=== PATIENT | female | born 1990 ===

== ENCOUNTER 2016-10-16 08:03 | Inpatient (IN) | payer MEDICAID ==
[2016-10-16] MEDS ORDERED: Sodium Chloride 0.9% 1,000 ML IV ONE ×2 (08:19→10:55)
[2016-10-16 08:25] VITALS: BMI 27.3
--- NOTE | 2016-10-16 08:51 | C.PDOC ---
History Of Present Illness Patient BIBA from home for evaluation of abdominal pain, nausea/vomiting since yesterday, as well as intermittent seizures since yesterday. History is as per EMS as told to them by mother. Patient has h/o seizure disorder, DM, HTN, currently on Keppra as per med list. Accuchek 245 on ED arrival. Time Seen by Provider: 10/16/16 08:15 Chief Complaint (Nursing): Seizure History Per: EMS History/Exam Limitations: clinical condition Number Of Seizures: Multiple Length Of Seizures (Duration): Seconds Quality Of Seizure: Generalized Past Medical History Reviewed: Historical Data, Nursing Documentation, Vital Signs Vital Signs: Last Vital Signs Temp 98.6 F 10/20/16 16:00 Pulse 75 10/20/16 16:00 Resp 16 10/20/16 16:00 BP 159/107 H 10/20/16 16:00 Pulse Ox 98 10/20/16 16:00 - Medical History PMH: Diabetes, HTN, Seizures Family History: States: No Known Family Hx - Social History Hx Alcohol Use: No Hx Substance Use: No - Immunization History Hx Tetanus Toxoid Vaccination: No Hx Influenza Vaccination: Yes Hx Pneumococcal Vaccination: No Review Of Systems Review Of Systems: ROS cannot be obtained secondary to pt's inabilty to answer questions. Physical Exam - Physical Exam Appears: Non-toxic, Other (drowsy/postictal ) Skin: Warm (warm to the touch) Head: Normacephalic Eye(s): bilateral: Normal Inspection Oral Mucosa: Moist Cardiovascular: Rhythm Regular Respiratory: Normal Breath Sounds, No Rales, No Rhonchi, No Wheezing Gastrointestinal/Abdominal: Bowel Sounds, Soft, Tenderness (mild diffuse TTP), No Distention, No Guarding, No Rebound Extremity: Normal ROM, No Pedal Edema, No Calf Tenderness, No Deformity ED Course And Treatment - Laboratory Results Result Diagrams: 10/20/16 06:33 10/20/16 06:33 O2 Sat by Pulse Oximetry: 100 (RA) Pulse Ox Interpretation: Normal - CT Scan/US ct abd/pelvis Other Rad Studies (CT/US): Read By Radiologist, Radiology Report Reviewed CT/US Interpretation: Accession No. : [id number]. Patient Name / ID : BEST HERNANDEZ / [id number]. Exam Date : 10/16/2016 11:16:43 ( Approved ). Study Comment : Sex / Age : F / 26Y. Creator : Yareli Ortega MD. Dictator : Yareli Ortega MD. Hydrographic Surveyor : Maintenance Analyst : Yareli Ortega MD. Approver2 : Report Date : 10/16/2016 11:48:11. My Comment : . PROCEDURE: CT Abdomen and Pelvis without Oral or IV contrast. HISTORY: abd pain, n/v. COMPARISON: None. TECHNIQUE: Contiguous axial images of the abdomen and pelvis. No oral or IV contrast administered. Coronal and Sagittal reformats generated and reviewed. Radiation dose: Total exam DLP = 279.08 mGy- cm. This CT exam was performed using one or more of the following dose reduction techniques: Automated exposure control, adjustment of the mA and/or kV according to patient size, and/or use of iterative reconstruction technique. FINDINGS: There is limited evaluation of the solid organs without the administration of IV contrast. Examination limited by paucity of intra- abdominal and intrapelvic fat. LOWER THORAX: No visible consolidation, pleural effusion, or pneumothorax. Small hiatal hernia/distal esophageal wall thickening. LIVER: Unremarkable unenhanced appearance. GALLBLADDER AND BILE DUCTS: Unremarkable unenhanced appearance. PANCREAS: Unremarkable unenhanced appearance. SPLEEN: Unremarkable unenhanced appearance. ADRENALS: Unremarkable unenhanced appearance. KIDNEYS AND URETERS: No hydronephrosis or obstructing renal calculus. BLADDER: Mildly thick-walled urinary bladder. REPRODUCTIVE: Uterus is present. Question prominence of the ovaries. APPENDIX : The presumed appendix appears within normal limits of caliber. No secondary signs of acute appendicitis. BOWEL: The stomach is nondistended. Lack of oral contrast limits evaluation for bowel pathology. The bowel loops appear within normal limits of caliber without evidence of intestinal obstruction. Moderate constipation. PERITONEUM: No significant free fluid. No definite free air. LYMPH NODES: No bulky lymphadenopathy identified. VASCULATURE: No aortic aneurysm. BONES: Bilateral L5 spondylolysis. OTHER FINDINGS: None. IMPRESSION: Question prominent bilateral ovaries. This is not well visualized on CT. Recommend further evaluation with pelvic ultrasound. Moderate diffuse constipation. Mildly thick-walled urinary bladder. Recommend correlation with urinalysis in order to exclude possibility of cystitis. Bilateral L5 spondylolysis. ct head Other Rad Studies (CT/US): Read By Radiologist, Radiology Report Reviewed CT/US Interpretation: Accession No. : [id number]. Patient Name / ID : BEST HERNANDEZ / [id number]. Exam Date : 10/16/2016 11:26:48 ( Approved ). Study Comment : Sex / Age : F / 26Y. Creator : Yareli Ortega MD. Dictator : Yareli Ortega MD. Hydrographic Surveyor : Maintenance Analyst : Yareli Ortega MD. Approver2 : Report Date : 10/16/2016 11:45:14. My Comment : . PROCEDURE: CT HEAD WITHOUT CONTRAST. HISTORY: seizure. COMPARISON: None available. TECHNIQUE: Axial computed tomography images were obtained through the head/brain without intravenous contrast. Radiation dose: Total exam DLP = 874.56 mGy-cm. This CT exam was performed using one or more of the following dose reduction techniques: Automated exposure control, adjustment of the mA and/or kV according to patient size, and/or use of iterative reconstruction technique. FINDINGS: HEMORRHAGE: No intracranial hemorrhage. BRAIN: No mass effect or edema. No atrophy or chronic microvascular ischemic changes.Please note that MRI with diffusion imaging is more sensitive in the detection of acute ischemic event. VENTRICLES: No hydrocephalus. CALVARIUM: Unremarkable. PARANASAL SINUSES: Unremarkable as visualized. No significant inflammatory changes. MASTOID AIR CELLS: Unremarkable as visualized. No inflammatory changes. OTHER FINDINGS: None. IMPRESSION: No acute intracranial pathology identified. Progress Note: 2mg IM Ativan given due to tonic clonic seizure in ED (witnessed by me). Blood work, UA, CXR, EKG ordered and reviewed. CT scan abd/pelvis ordered. Patient given IV NS bolus, IV Keppra loading, IV hydralazine (has not taken PO Lisinopril due to nausea/vomiting/abd pain). Left sided 20 gauge EJ inserted by me, as well as 22 gauge peripheral line in right foot. Blood obtained by me from right radial artery. 12:10pm- Patient c/o abdominal pain and nausea - IV morphine + IV zofran ordered, as well as her usual PO amlodipine. However patient unable to tolerate PO - IV reglan and IV labetolol ordered. 1:05PM- Patient resting comfortably, in no pain. BP significantly improved, and heart rate 95-105bpms. Patient pending bed. Reevaluation Time: 08:50 Reassessment Condition: Improved (Patient awake & alert currently, admits to history of seizures, DM, gastroparesis, HTN - states current abd pain feels like prior gastroparesis.) - Physician Consult Information Physician Contacted: Belle Mckee Outcome Of Conversation: Discussed patient with Dr. Mckee, he agrees with admission for seizure disorder, diabetic gastroparesis, acute renal failure/ dehydration, UTI/cystitis. Disposition - Disposition Disposition: HOSPITALIZED Disposition Time: 12:11 Condition: STABLE - Clinical Impression Clinical Impression: ARF (acute renal failure), Seizure disorder, Diabetic gastroparesis, Hyperglycemia, UTI (urinary tract infection), Acute cystitis Decision To Admit - Pt Status Changed To: Hospital Disposition Of: Inpatient - Admit Certification Admit to Inpatient:: After my assessment, the patient will require hospitalization for at least two midnights. This is because of the severity of symptoms shown, intensity of services needed, and/or the medical risk in this patient being treated as an outpatient. - InPatient: Physician Admission Certification: I certify that this patient requires 2 or more midnights of care for the following reason:: see notes - . Bed Request Type: Telemetry Admitting Physician: Belle Mckee Patient Diagnosis: ARF (acute renal failure), Seizure disorder, Diabetic gastroparesis, Hyperglycemia, UTI (urinary tract infection), Acute cystitis
[2016-10-16 08:52] LABS: BASO % 0.2 % (0.0-2.0); EOS % 0.2 % (0.0-4.0); HEMOGLOBIN 10.5 g/dL (11.0-16.0); LYMPH # 0.6 K/uL (1.0-4.3); LYMPH % 4.1 % (20.0-40.0); MEAN CELL VOLUME 85.4 fL (81.0-99.0); MEAN CORPUSCULAR HEMOGLOBIN 28.2 pg (27.0-31.0); MEAN PLATELET VOLUME 9.2 fL (7.2-11.7); MONO # 0.2 K/uL (0.0-0.8); MONO % 1.4 % (0.0-10.0); NEUT % 94.1 % (50.0-75.0); PLATELET COUNT 350 K/uL (130-400); RBC 3.72 Mil/uL (3.80-5.20); RED CELL DISTRIBUTION WIDTH 14.7 % (11.5-14.5); WHITE BLOOD COUNT 13.8 K/uL (4.8-10.8)
[2016-10-16 09:02] LABS: ALB/GLOB RATIO 0.9 (1.0-2.1); CALCIUM 8.8 mg/dl (8.6-10.4)
[2016-10-16 09:11] LABS: HCG,QUALITATIVE URINE NEGATIVE (NEGATIVE)
[2016-10-16 09:16] LABS: ANISOCYTOSIS SLIGHT; BANDS 1 % (0-2); HYPOCHROMIC SLIGHT; LYMPHOCYTE 4 % (20-40); MONOCYTE 1 % (0-10); NEUTROPHIL 94 % (50-75); PLATELET ESTIMATE NORMAL (NORMAL); POIKILOCYTOSIS SLIGHT; TOTAL CELLS COUNTED 100
[2016-10-16 09:20] LABS: GRANULAR CAST 1 /lpf (0-1); SQUAMOUS EPITHIAL 1 /hpf (0-5); URINE BACTERIA OCC (<OCC); URINE BILIRUBIN NEGATIVE (NEGATIVE); URINE BLOOD 2+ (NEGATIVE); URINE CLARITY Hazy (Clear); URINE COLOR Yellow (YELLOW); URINE GLUCOSE (UA) 3+ mg/dL (Normal); URINE LEUKOCYTE ESTERASE NEG Leu/uL (Negative); URINE NITRATE NEGATIVE (NEGATIVE); URINE PROTEIN 3+ mg/dL (NEGATIVE); URINE UROBILINOGEN NORMAL mg/dL (0.2-1.0)
[2016-10-16] MEDS ORDERED: levETIRAcetam 500 MG in Sodium Chloride 0.9% 100 ML IVPB STA (09:21)
[2016-10-16] MEDS ORDERED: Sodium Chloride 0.9% 1,000 ML ONE ×3 (09:22→15:01)
[2016-10-16 09:26] LABS: ARTERIAL BLOOD GAS HCO3 23.7 mmol/L (21-28); ARTERIAL BLOOD GAS O2 SAT 97.9 % (95-98); ARTERIAL BLOOD GAS PCO2 34 mm/Hg (35-45); ARTERIAL BLOOD GAS PH 7.42 (7.35-7.45); ARTERIAL BLOOD GAS PO2 188 mm/Hg (80-100); ARTERIAL BLOOD GAS TCO2 23.1 mmol/L (22-28)
[2016-10-16 09:29] LABS: OPIATES, UR NEGATIVE (NEGATIVE); PHENCYCLIDINE, UR NEGATIVE (NEGATIVE)
[2016-10-16] MEDS ORDERED: Morphine 4 MG/ML VIAL ONE ×2 (09:30→12:09)
[2016-10-16 09:31] LABS: BARBITURATES, UR NEGATIVE (NEGATIVE)
[2016-10-16 09:32] LABS: BENZODIAZEPINES, UR NEGATIVE (NEGATIVE)
--- NOTE | 2016-10-16 10:48 | RAD ---
PROCEDURE: CHEST RADIOGRAPH, 1 VIEW HISTORY: FEVER COMPARISON: None available. FINDINGS: LUNGS: Clear. PLEURA: No pneumothorax or pleural fluid seen. CARDIOVASCULAR: Normal. OSSEOUS STRUCTURES: No significant abnormalities. VISUALIZED UPPER ABDOMEN: Normal. OTHER FINDINGS: None. IMPRESSION: No active disease.
--- NOTE | 2016-10-16 11:47 | CT ---
PROCEDURE: CT HEAD WITHOUT CONTRAST. HISTORY: seizure COMPARISON: None available. TECHNIQUE: Axial computed tomography images were obtained through the head/brain without intravenous contrast. Radiation dose: Total exam DLP = 874.56 mGy-cm. This CT exam was performed using one or more of the following dose reduction techniques: Automated exposure control, adjustment of the mA and/or kV according to patient size, and/or use of iterative reconstruction technique. FINDINGS: HEMORRHAGE: No intracranial hemorrhage. BRAIN: No mass effect or edema. No atrophy or chronic microvascular ischemic changes.Please note that MRI with diffusion imaging is more sensitive in the detection of acute ischemic event. VENTRICLES: No hydrocephalus. CALVARIUM: Unremarkable. PARANASAL SINUSES: Unremarkable as visualized. No significant inflammatory changes. MASTOID AIR CELLS: Unremarkable as visualized. No inflammatory changes. OTHER FINDINGS: None. IMPRESSION: No acute intracranial pathology identified.
--- NOTE | 2016-10-16 11:49 | CT ---
PROCEDURE: CT Abdomen and Pelvis without Oral or IV contrast. HISTORY: abd pain, n/v COMPARISON: None. TECHNIQUE: Contiguous axial images of the abdomen and pelvis. No oral or IV contrast administered. Coronal and Sagittal reformats generated and reviewed. Radiation dose: Total exam DLP = 279.08 mGy-cm. This CT exam was performed using one or more of the following dose reduction techniques: Automated exposure control, adjustment of the mA and/or kV according to patient size, and/or use of iterative reconstruction technique. FINDINGS: There is limited evaluation of the solid organs without the administration of IV contrast. Examination limited by paucity of intra-abdominal and intrapelvic fat. LOWER THORAX: No visible consolidation, pleural effusion, or pneumothorax. Small hiatal hernia/distal esophageal wall thickening. LIVER: Unremarkable unenhanced appearance. GALLBLADDER AND BILE DUCTS: Unremarkable unenhanced appearance. PANCREAS: Unremarkable unenhanced appearance. SPLEEN: Unremarkable unenhanced appearance. ADRENALS: Unremarkable unenhanced appearance. KIDNEYS AND URETERS: No hydronephrosis or obstructing renal calculus. BLADDER: Mildly thick-walled urinary bladder. REPRODUCTIVE: Uterus is present. Question prominence of the ovaries. APPENDIX: The presumed appendix appears within normal limits of caliber. No secondary signs of acute appendicitis. BOWEL: The stomach is nondistended. Lack of oral contrast limits evaluation for bowel pathology. The bowel loops appear within normal limits of caliber without evidence of intestinal obstruction. Moderate constipation. PERITONEUM: No significant free fluid. No definite free air. LYMPH NODES: No bulky lymphadenopathy identified. VASCULATURE: No aortic aneurysm. BONES: Bilateral L5 spondylolysis. OTHER FINDINGS: None. IMPRESSION: Question prominent bilateral ovaries. This is not well visualized on CT. Recommend further evaluation with pelvic ultrasound. Moderate diffuse constipation. Mildly thick-walled urinary bladder. Recommend correlation with urinalysis in order to exclude possibility of cystitis. Bilateral L5 spondylolysis.
[2016-10-16] MEDS ORDERED: Labetalol 25mg/5ml Syringe IVP STA (12:13)
[2016-10-16] MEDS ORDERED: Labetalol 25mg/5ml Syringe ONE (12:29)
[2016-10-16] MEDS ORDERED: cefTRIAXone IV 1 gm in Dextros 50 ML IVPB ONE (12:29)
--- NOTE | 2016-10-16 13:12 | CP.PCM.PN ---
Subjective - Date & Time of Evaluation Date of Evaluation: 10/16/16 Time of Evaluation: 01:12 - Subjective Subjective: CC: seizures + abdominal pain x 2 weeks HPI: This 26 year old female with PMHx Seizure D/O, Gastroparesis, Diabetes, HTN - presents to the ED c/o increased seizure activity and abdominal pain for the past 2 weeks. She admits to being compliant with her home medications, including Levetracem 750mg PO qd, and does not understand why the seizures keep recurring. She reports being in and out of [facility] over the past 2 weeks for these complaints, with her most recent visit to the [place] ED last night, where she was discharged in the evening with normal blood values. This morning, her symptoms resumed and patient was BIBA from home for evaluation of abdominal pain, nausea/vomiting, as well as intermittent seizures. In total, she reports one seizure at home, 2 were reported in the ambulance, and 3 were witnessed in our ED. Admits to fevers, blurry vision, abdominal pain, and n/v. Denies chills, chest pain, SOB, hematemesis, d/c, LE swelling, recent sick contacts, or any additional acute complaints. PMD: Dr. Jane Yan Neurology: None PMHx: Seizure D/O, Gastroparesis, Diabetes, HTN PSHx: denies Meds: see EMR Allergies: NKDA FamHx: Mom - HTN SocHx: Denies tobacco or ETOH. Smokes marijuana monthly, but has increased her use recently. Objective - Vital Signs/Intake and Output Vital Signs (last 24 hours): Temp Pulse Resp BP Pulse Ox 99.3 F 102 H 20 124/70 100 10/16/16 12:22 10/16/16 12:41 10/16/16 12:41 10/16/16 12:41 10/16/16 13:11 - Constitutional Appears: Non-toxic, No Acute Distress, Other (no postictal confussion appreciated) - Head Exam Head Exam: ATRAUMATIC, NORMAL INSPECTION - Eye Exam Eye Exam: EOMI, Normal appearance, PERRL - ENT Exam ENT Exam: Mucous Membranes Dry - Respiratory Exam Respiratory Exam: Clear to Ausculation Bilateral, NORMAL BREATHING PATTERN. absent: Rales, Wheezes - Cardiovascular Exam Cardiovascular Exam: Tachycardia, +S1, +S2 - GI/Abdominal Exam GI & Abdominal Exam: Soft, Tenderness (diffuse), Hypoactive Bowel Sounds. absent: Hernia - Extremities Exam Extremities Exam: Normal Capillary Refill, Normal Inspection. absent: Pedal Edema, Tenderness - Back Exam Back Exam: absent: CVA tenderness (L), CVA tenderness (R) - Neurological Exam Neurological Exam: Alert, Awake, CN II-XII Intact, Oriented x3 - Psychiatric Exam Psychiatric exam: Normal Affect, Normal Mood - Skin Skin Exam: Dry, Intact, Pallor, Warm Assessment and Plan - Assessment and Plan (Free Text) Assessment: Seizure disorder * total creat kinase 675 H * prolactin 239.7 H * Tox screen, +Cannabinoid * Keppra 1000mg PO BID per neurology * Ativan 1mg IVP Q6H PRN * Vit B12 1000mcg PO qd * CT Head negative * Consult Neurology, Dr. Andrea Triplett, help appreciated. Hyperosmolar hyperglycemic nonketotic syndrome * Patient admitted to ICU from ED * Glucose > 500 * 1+ urine ketones UTI/cystitis * Temp 100.9 * WBC 13.8 * UA +bact, +hyalin casts, +glucose, +1 ketones, +3 protein, +2blood * f/u UC, BC * Abd Pelvic CT - thick walled bladder, constipation, b/l L5 sponylolysis. see full report * Ceftriaxone 1Gm IVPB qd Hypertension * BP 195/115 --> 108/66. * Norvasc 10mg PO qd * Lisinopril 20mg PO qd Diabetes * Novolog ISS * Lantus 8u SC HS Diabetic gastroparesis * Abd Pelvic CT - thick walled bladder, constipation, b/l L5 sponylolysis. see full report * Zofran 4mg PO Q6 * Tylenol 650mg PO BID * Nausea / Vomiting -> NPO Acute renal failure/dehydration * BUN 30, Cr 2.2 - monitor * NS 0.9 100cc/hr Hx Anemia * Hgb 12.5 * Feosol 325mg PO BID Prophylaxis * pepcid 20mg PO qd * Heparin 5k u SC Q12
[2016-10-16] MEDS: Sodium Chloride 0.9% 1,000 ML IV SCH (15:02)
[2016-10-16 15:36] LABS: ALBUMIN 2.4 g/dL (3.5-5.0)
[2016-10-16 15:39] LABS: ALB/GLOB RATIO 0.8 (1.0-2.1)
[2016-10-16 15:40] LABS: CALCIUM 7.2 mg/dl (8.6-10.4)
[2016-10-16] MEDS ORDERED: (Novolin R) Insulin Human Regular 100 units/ml vial SC ONE (16:18)
[2016-10-16] MEDS: (Novolog) Insulin Aspart, Recombinant 100 u/ml 10 ml vial SC SCH ×2 (16:27→22:03)
[2016-10-16] MEDS ORDERED: (Novolin R) Insulin Human Regular 100 units/ml vial ONE (16:28)
[2016-10-16 16:50] LABS: PROLACTIN 239.7 ng/mL (3.0-18.9)
--- NOTE | 2016-10-16 18:46 | CP.PCM.CON ---
History of Present Illness - History of Present Illness History of Present Illness: The patient is a 26 year old female who is asked for evaluation of seizures. Patient apparently had three seizures today. She gets generealized seizure. Patient has been having nausea and vomitting since yesterdy. Patient has history od seizure for 5 years and has been on Keppra 750 mg bid. Denies any urinary incontinence or tongue biting. Her seizures are brief. Her blood sugar is found to be more than 500. Review of Systems - Review of Systems Systems not reviewed;Unavailable: Acuity of Condition, Other All systems: reviewed and no additional remarkable complaints except (sleepy) - EENT Eyes: As Per HPI, Decreased Night Vision Ears: As Per HPI Nose/Mouth/Throat: As Per HPI - Cardiovascular Cardiovascular: absent: As Per HPI, Acrocyanosis, Chest Pain, Chest Pain at Rest , Chest Pain with Activity, Claudication, Diaphoresis, Dyspnea, Dyspnea on Exertion, Edema, Irregular Heart Rhythm, Pain Radiating to Arm/Neck/Jaw, Leg Edema, Leg Ulcers, Lightheadedness, Orthopnea, Palpitations, Paroxysmal Nocturnal Dyspnea, Pedal Edema, Radiating Pain, Rapid Heart Rate, Slow Heart Rate, Syncope, Other - Respiratory Respiratory: absent: As Per HPI, Cough, Dyspnea, Hemoptysis, Dyspnea on Exertion , Wheezing, Snoring, Stridor, Pain on Inspiration, Chest Congestion, Excessive Mucous Production, Change in Mucous Color, Pain with Coughing, Other - Gastrointestinal Gastrointestinal: As Per HPI - Genitourinary Genitourinary: As Per HPI - Reproductive: Female Reproductive:Female: As Per HPI - Neurological Neurological: Other (seizure) - Endocrine Endocrine: absent: As Per HPI, Change in Body Appearance, Change in Libido, Cold Intolorance, Deepening of Voice, Excessive Sweating, Fatigue, Flushing, Heat Intolorance, Increase in Ring/Shoe/Hat Size, Palpitations, Polydipsia, Polyphagia, Polyuria, Other Past Patient History - Infectious Disease Hx of Infectious Diseases: None - Past Medical History & Family History Past Medical History?: Yes Past Family History: Reviewed and not pertinent Pertinent Family History: none - Past Social History Smoking Status: Never Smoked Cigar Use: No Alcohol: None - CARDIAC Hx Cardiac Disorders: No Hx Hypertension: Yes - NEUROLOGICAL Hx Seizures: Yes - ENDOCRINE/METABOLIC Hx Endocrine Disorders: Yes (diabetes) Hx Diabetes Mellitus Type 1: Yes Hx Diabetes Mellitus Type 2: Yes - PSYCHIATRIC Hx Substance Use: No Meds Allergies/Adverse Reactions: Allergies Allergy/AdvReac Type Severity Reaction Status Date / Time No Known Allergies Allergy Verified 10/16/16 08:24 - Medications Medications: Current Medications Acetaminophen (Tylenol 325mg Tab) 650 mg PO BID PRN PRN Reason: Fever >100.4 F Amlodipine Besylate (Norvasc) 10 mg PO DAILY [facility] Cyanocobalamin (Vitamin B12 1000 Mcg Tab) 1,000 mcg PO DAILY [facility] Famotidine (Pepcid) 20 mg PO DAILY [facility] Last Admin: 10/16/16 18:07 Dose: Not Given Ferrous Sulfate (Feosol) 325 mg PO BID [facility] Last Admin: 10/16/16 18:08 Dose: Not Given Heparin Sodium (Porcine) (Heparin) 5,000 units SC Q12 [facility] Sodium Chloride (Sodium Chloride 0.9%) 1,000 mls @ 100 mls/hr IV .Q10H [facility] Last Admin: 10/16/16 15:02 Dose: 100 mls/hr Ceftriaxone Sodium 1 gm/ (Sodium Chloride) 100 mls @ 100 mls/hr IVPB DAILY [facility] Insulin Aspart (Novolog) 0 unit SC ACHS [facility] PRN Reason: Protocol Last Admin: 10/16/16 16:27 Dose: Not Given Insulin Glargine (Lantus) 8 unit SC HS [facility] Levetiracetam (Keppra) 1,000 mg PO BID [facility] Last Admin: 10/16/16 18:08 Dose: Not Given Lisinopril (Zestril) 20 mg PO DAILY [facility] Lorazepam (Ativan) 1 mg IVP Q6H PRN PRN Reason: Anxiety Ondansetron HCl (Zofran Odt) 4 mg PO Q6H PRN PRN Reason: Nausea/Vomiting Physical Exam - Constitutional Appears: Well - Head Exam Head Exam: ATRAUMATIC, NORMAL INSPECTION, NORMOCEPHALIC - Eye Exam Eye Exam: EOMI, Normal appearance - ENT Exam ENT Exam: Mucous Membranes Moist, Normal Exam - Neck Exam Neck exam: Positive for: Normal Inspection - Cardiovascular Exam Cardiovascular Exam: REGULAR RHYTHM - GI/Abdominal Exam GI & Abdominal Exam: Normal Bowel Sounds, Soft - Neurological Exam Neurological exam: Alert, CN II-XII Intact, Oriented x3, Reflexes Normal - Skin Skin Exam: Dry, Intact, Normal Color, Warm Results - Vital Signs Recent Vital Signs: Last Vital Signs Temp 98.1 F 10/16/16 16:33 Pulse 116 H 10/16/16 16:33 Resp 20 10/16/16 16:33 BP 170/102 H 10/16/16 16:33 Pulse Ox 100 10/16/16 16:33 - Labs Result Diagrams: 10/16/16 08:45 10/16/16 15:17 Labs: Laboratory Results - last 24 hr 10/16/16 10/16/16 10/16/16 14:26 15:17 18:01 Sodium 134 Potassium 4.1 Chloride 101 Carbon Dioxide 16 L Anion Gap 21 H BUN 30 H Creatinine 2.0 H Est GFR ( Amer) 36 Est GFR (Non-Af Amer) 30 POC Glucose (mg/dL) > 500 H* > 500 H* Random Glucose 637 H* D Calcium 7.2 L Total Bilirubin 0.4 AST 31 ALT 27 Alkaline Phosphatase 103 Total Protein 5.4 L Albumin 2.4 L Globulin 3.0 Albumin/Globulin Ratio 0.8 L Prolactin 239.7 H Assessment & Plan - Assessment and Plan (Free Text) Assessment: Seizure disorder with breakthrough seizure likely secondary to hyperglycemia. Rec: Increase Keppra to 1000 mg bid. May give IVC. Control Blood sugar Seizure precaution.s EEG Supportive care.
[2016-10-16] MEDS: (Lantus) Insulin Glargine, Recombinant SC SCH (21:44)
--- NOTE | 2016-10-16 21:47 | CP.CCUPN ---
CCU Subjective - Physician Review Events Since Last Encounter (Free Text): 10/17/16 04:26 The Patient was seen and examined at the bedside, Medical records reviewed, all clinical/lab/hemodynamic/radiographic data were reviewed and management issues were discussed and formulated, 26 Y/O F with PMHx HTN, DM and Seizures who was brought to ER for evaluation of abdominal pain, nausea/vomiting and intermittent generalized seizure since yesterday, Had witnessed seizure activity in the way to hospital as well as in the ER, Labs significant for BG>500 Patient has history of seizure for 5 years and has been on Keppra 750 mg bid. Patient alert, awake, Denies any urinary incontinence or tongue biting, No fever /chills CT Head negative for bleed/Stroke or mass CCU Objective - Vital Signs / Intake & Output Vital Signs (Last 4 hours): Vital Signs Temp Pulse Resp BP Pulse Ox 10/16/16 20:29 98.6 F 97 H 20 99/60 L 99 10/16/16 20:22 100 10/16/16 19:29 98 F 100 H 19 104/59 L 100 10/16/16 18:40 108 H 16 144/94 H 99 - Physical Exam Head: Positive for: Atraumatic, Normocephalic. Negative for: Tenderness, Contusion, Swelling Pupils: Positive for: PERRL. Negative for: Sluggish, Non-Reactive Extroacular Muscles: Positive for: EOMI. Negative for: Gaze Palsy, Entrapment Conjunctiva: Positive for: Normal. Negative for: Injected, Icteric Mouth: Positive for: Moist Mucous Membranes Pharnyx: Positive for: Normal. Negative for: ERYTHEMA, EXUDATE Nose (Internal): Positive for: Normal Inspection Neck: Positive for: Normal Range of Motion, Trachea Midline. Negative for: Meningeal Signs, MIDLINE TENDERNESS, Paraspinal Tenderness, JVD, Lymphadenopathy , Bruit, Other Respiratory/Chest: Positive for: Clear to Auscultation, Good Air Exchange. Negative for: Respiratory Distress, Accessory Muscle Use, Wheezes, Decreased Breath Sounds, Rales, Retracting, Rhonchi Cardiovascular: Positive for: Regular Rate and Rhythm, Normal S1, S2, Peripheal Pulses Present. Negative for: Murmurs, Irregular Rhythm, Tachycardic, Bradycardic Abdomen: Positive for: Normal Bowel Sounds. Negative for: Tenderness, Distention, Peritoneal Signs Upper Extremity: Positive for: Normal Inspection, NORMAL PULSES, Capillary Refill < 2s. Negative for: Cyanosis, Edema Lower Extremity: Positive for: Normal Inspection, NORMAL PULSES, Capillary Refill < 2 s. Negative for: Edema, CALF TENDERNESS Neurological: Positive for: GCS=15, CN II-XII Intact, Speech Normal, Motor Func Grossly Intact, Normal Sensory Function Psychiatric: Positive for: Alert, Oriented x 3, Normal Insight - Medications Active Medications: Active Medications Generic Name Dose Route Start Last Admin Trade Name Freq PRN Reason Stop Dose Admin Acetaminophen 650 mg 10/16/16 14:08 Tylenol 325mg Tab PO BID PRN Fever >100.4 F Amlodipine Besylate 10 mg 10/17/16 10:00 Norvasc PO DAILY [facility] Cyanocobalamin 1,000 mcg 10/17/16 10:00 Vitamin B12 1000 Mcg Tab PO DAILY [facility] Famotidine 20 mg 10/16/16 14:30 10/16/16 18:07 Pepcid PO Not Given DAILY [facility] Ferrous Sulfate 325 mg 10/16/16 18:00 10/16/16 18:08 Feosol PO Not Given BID [facility] Heparin Sodium (Porcine) 5,000 units 10/16/16 22:00 Heparin SC Q12 [facility] Sodium Chloride 1,000 mls @ 100 mls/hr 10/16/16 14:30 10/16/16 15:02 Sodium Chloride 0.9% IV 100 mls/hr .Q10H [facility] Administration Ceftriaxone Sodium 1 gm/ 100 mls @ 100 mls/hr 10/17/16 10:00 Sodium Chloride IVPB DAILY [facility] Insulin Aspart 0 unit 10/16/16 16:30 10/16/16 16:27 Novolog SC Not Given ACHS [facility] Protocol Insulin Glargine 8 unit 10/16/16 22:00 Lantus SC HS [facility] Levetiracetam 1,000 mg 10/16/16 18:00 10/16/16 18:08 Keppra PO Not Given BID [facility] Lisinopril 20 mg 10/17/16 10:00 Zestril PO DAILY [facility] Lorazepam 1 mg 10/16/16 14:21 Ativan IVP Q6H PRN Anxiety Ondansetron HCl 4 mg 10/16/16 14:08 Zofran Odt PO Q6H PRN Nausea/Vomiting - Patient Studies Lab Studies: Lab Studies 10/16/16 10/16/16 10/16/16 Range/Units 20:32 19:20 18:01 Sodium (132-148) mmol/L Potassium (3.6-5.2) mmol/L Chloride (98-107) mmol/L Carbon Dioxide (22-30) mmol/L Anion Gap (10-20) BUN (7-17) mg/dL Creatinine (0.7-1.2) MG/DL Est GFR ( Amer) Est GFR (Non-Af Amer) POC Glucose (mg/dL) 374 H 493 H* > 500 H* (65-110) mg/dL Random Glucose (65-105) mg/dL Calcium (8.6-10.4) mg/dl Total Bilirubin (0.2-1.3) mg/dL AST (14-36) U/L ALT (9-52) U/L Alkaline Phosphatase (38-126) U/L Total Protein (6.3-8.3) g/dL Albumin (3.5-5.0) g/dL Globulin (2.2-3.9) gm/dL Albumin/Globulin Ratio (1.0-2.1) Prolactin (3.0-18.9) ng/mL 10/16/16 10/16/16 Range/Units 15:17 14:26 Sodium 134 (132-148) mmol/L Potassium 4.1 (3.6-5.2) mmol/L Chloride 101 (98-107) mmol/L Carbon Dioxide 16 L (22-30) mmol/L Anion Gap 21 H (10-20) BUN 30 H (7-17) mg/dL Creatinine 2.0 H (0.7-1.2) MG/DL Est GFR ( Amer) 36 Est GFR (Non-Af Amer) 30 POC Glucose (mg/dL) > 500 H* (65-110) mg/dL Random Glucose 637 H* D (65-105) mg/dL Calcium 7.2 L (8.6-10.4) mg/dl Total Bilirubin 0.4 (0.2-1.3) mg/dL AST 31 (14-36) U/L ALT 27 (9-52) U/L Alkaline Phosphatase 103 (38-126) U/L Total Protein 5.4 L (6.3-8.3) g/dL Albumin 2.4 L (3.5-5.0) g/dL Globulin 3.0 (2.2-3.9) gm/dL Albumin/Globulin Ratio 0.8 L (1.0-2.1) Prolactin 239.7 H (3.0-18.9) ng/mL Laboratory Results - last 24 hr 10/16/16 10/16/16 10/16/16 14:26 15:17 18:01 Sodium 134 Potassium 4.1 Chloride 101 Carbon Dioxide 16 L Anion Gap 21 H BUN 30 H Creatinine 2.0 H Est GFR ( Amer) 36 Est GFR (Non-Af Amer) 30 POC Glucose (mg/dL) > 500 H* > 500 H* Random Glucose 637 H* D Calcium 7.2 L Total Bilirubin 0.4 AST 31 ALT 27 Alkaline Phosphatase 103 Total Protein 5.4 L Albumin 2.4 L Globulin 3.0 Albumin/Globulin Ratio 0.8 L Prolactin 239.7 H 10/16/16 10/16/16 19:20 20:32 Sodium Potassium Chloride Carbon Dioxide Anion Gap BUN Creatinine Est GFR ( Amer) Est GFR (Non-Af Amer) POC Glucose (mg/dL) 493 H* 374 H Random Glucose Calcium Total Bilirubin AST ALT Alkaline Phosphatase Total Protein Albumin Globulin Albumin/Globulin Ratio Prolactin Fingerstick Blood Sugar Results: 402 Review of Systems - Neurological Neurological: Weakness. absent: Abnormal Movements, Abnormal Speech, Loss of Vision, Syncope Critical Care Progress Note - Nutrition Nutrition: Nutrition Category Date Time Status Heart Healthy Diet [DIET] Diets 10/16/16 Dinner Active Assessment/Plan (1) Seizure Current Visit: Yes Status: Acute Comment: Incresae Keppra to 1000mg PO BID as per neurology PRN IV Ativan Check prolactin level IV Hydrations (2) Hyperosmolar (nonketotic) coma Current Visit: Yes Status: Acute Comment: IV Hydraions Resume home medications Consider insulin drip (3) UTI (urinary tract infection) Current Visit: Yes Status: Acute Comment: Ceftriaxone 1Gm IVPB daily (4) HTN (hypertension) Current Visit: No Status: Acute
--- NOTE | 2016-10-16 22:35 | CARD ---
APPROVED REPORT EKG Measurement Heart [id number] <Conclusion> Sinus tachycardia Otherwise normal ECG
[2016-10-17] MEDS: Sodium Chloride 0.9% 1,000 ML IV SCH ×3 (00:11→20:09)
[2016-10-17 06:42] LABS: ALBUMIN 2.2 g/dL (3.5-5.0)
[2016-10-17 06:44] LABS: BASO % 0.2 % (0.0-2.0); EOS % 0.1 % (0.0-4.0); HEMOGLOBIN 8.2 g/dL (11.0-16.0); LYMPH # 2.9 K/uL (1.0-4.3); LYMPH % 18.7 % (20.0-40.0); MEAN CELL VOLUME 86.5 fL (81.0-99.0); MEAN CORPUSCULAR HEMOGLOBIN 27.9 pg (27.0-31.0); MEAN CORPUSCULAR HGB CONC 32.2 g/dL (33.0-37.0); MEAN PLATELET VOLUME 9.7 fL (7.2-11.7); MONO # 0.8 K/uL (0.0-0.8); NEUT # 11.9 K/uL (1.8-7.0); RBC 2.96 Mil/uL (3.80-5.20); RED CELL DISTRIBUTION WIDTH 14.6 % (11.5-14.5); WHITE BLOOD COUNT 15.6 K/uL (4.8-10.8)
[2016-10-17 06:45] LABS: ALB/GLOB RATIO 0.8 (1.0-2.1)
[2016-10-17 06:46] LABS: CALCIUM 7.5 mg/dl (8.6-10.4); MAGNESIUM 2.1 mg/dL (1.6-2.3)
[2016-10-17] MEDS: (Novolog) Insulin Aspart, Recombinant 100 u/ml 10 ml vial SC SCH ×3 (08:03→17:30)
[2016-10-17] MEDS ORDERED: Sodium Chloride 0.9% 1,000 ML IV ONE (09:15)
--- NOTE | 2016-10-17 10:39 | PCM.PSYCH ---
Initial Psychiatric Evaluation - Initial Psychiatric Evaluation Type of Admission: Voluntary Legal Status: Capacity History of Present Illness and Precipitating Events: came to see the patient, but patient refused to answer, saying that she is feeling extremely nauseous and she was throwing up all day yesterday. Current Medications: Active Medications Generic Name Dose Route Start Last Admin Trade Name Freq PRN Reason Stop Dose Admin Acetaminophen 650 mg 10/16/16 14:08 Tylenol 325mg Tab PO BID PRN Fever >100.4 F Amlodipine Besylate 10 mg 10/17/16 10:00 Norvasc PO DAILY [facility] Cyanocobalamin 1,000 mcg 10/17/16 10:00 Vitamin B12 1000 Mcg Tab PO DAILY [facility] Ferrous Sulfate 325 mg 10/16/16 18:00 10/16/16 18:08 Feosol PO Not Given BID [facility] Heparin Sodium (Porcine) 5,000 units 10/16/16 22:00 10/16/16 21:45 Heparin SC 5,000 units Q12 [facility] Administration Sodium Chloride 1,000 mls @ 100 mls/hr 10/16/16 14:30 10/17/16 00:11 Sodium Chloride 0.9% IV 100 mls/hr .Q10H [facility] Administration Levetiracetam 500 mg/ Sodium 105 mls @ 420 mls/hr 10/17/16 10:00 Chloride IVPB Q12H [facility] Insulin Aspart 0 unit 10/16/16 16:30 10/17/16 08:03 Novolog SC 3 unit ACHS [facility] Administration Protocol Insulin Glargine 8 unit 10/16/16 22:00 10/16/16 21:44 Lantus SC 8 u HS [facility] Administration Lisinopril 20 mg 10/17/16 10:00 Zestril PO DAILY [facility] Lorazepam 1 mg 10/16/16 14:21 10/17/16 06:00 Ativan IVP 1 mg Q6H PRN Administration Anxiety Ondansetron HCl 4 mg 10/17/16 08:34 Zofran Inj IVP Q6H PRN Nausea/Vomiting Pantoprazole Sodium 40 mg 10/17/16 10:15 Protonix Inj IVP Q12H [facility] Thiamine HCl 100 mg 10/17/16 09:30 Vitamin B1 Inj IV Q8H [facility] Past Psychiatric History - Past Psychiatric History Pertinent Medical Hx (Current Medical&Sleep Prob, Allergies): Allergies Allergy/AdvReac Type Severity Reaction Status Date / Time No Known Allergies Allergy Verified 10/16/16 08:24 Acetaminophen 2 tab PO BID PRN 10/16/16 Cyanocobalamin [Vitamin B12 1000 mcg Tab] 1,000 mcg PO DAILY 10/16/16 Ferrous Sulfate [Iron] 325 mg PO BID 10/16/16 Insulin Glargine, Recombina [Lantus] 8 unit SQ HS 10/16/16 Insulin Lispro [Humalog Kwikpen U-100] 5 unit SQ TID 10/16/16 Levetiracetam 3 tab PO BID 10/16/16 Lisinopril [Zestril] 20 mg PO DAILY 10/16/16 Ondansetron ODT [Zofran ODT] 4 mg PO Q6H PRN 10/16/16 amLODIPine [Norvasc] 10 mg PO DAILY 10/16/16
[2016-10-17] MEDS: Thiamine 100 mg/ml Inj IV SCH ×2 (11:01→16:55)
[2016-10-17] MEDS ORDERED: POLYETHYLENE GLYCOL 3350 17 GM/Dose PACKET PO ONE (11:02)
[2016-10-17] MEDS: levETIRAcetam 500 MG in Sodium Chloride 0.9% 100 ML IVPB SCH ×2 (11:03→21:55)
--- NOTE | 2016-10-17 14:00 | CP.CCUPN ---
<Betzaida Moreira - Last Filed: 10/17/16 14:24> CCU Subjective - Physician Review Subjective (Free Text): 10/17/16 14:24 Patient seen and examined at bedside. Patient has been having multiple episodes of nonbloody nonbilious emesis and witnessed seizures lasting 15-30seconds with no postictal state. She has intermittent abdominal pain and needed morphine 2mg twice since 7am this morning. She was at first making herself vomit by putting a finger in her mouth but after being strongly advised by myself and nursing she stopped doing so. Patient states that she does the same at home but denies it is for weight loss. Patient has been receiving 1mg ativan q4h and is currently slightly sedated. Patient unable to give complete ROS due to distress. CCU Objective - Vital Signs / Intake & Output Vital Signs (Last 4 hours): Vital Signs Pulse Resp BP Pulse Ox 10/17/16 12:00 115 H 18 98 10/17/16 11:14 123 H 18 169/108 H 99 10/17/16 11:00 129 H 24 99 10/17/16 10:13 120 H 17 160/102 H 98 Intake and Output (Last 8hrs): Intake & Output 10/16/16 10/17/16 10/17/16 22:59 06:59 14:59 Intake Total 940 1500 Output Total 500 0 Balance 440 1500 Intake: Intake, IV Amount 600 1500 Left External Jugular 600 1500 Oral 340 Output: Urine 500 0 Urine, Voided 500 0 Stool 0 Other: # Bowel Movements 0 - Physical Exam Physical Exam Limitations: Positive for: Other (in acute distress) Head: Positive for: Atraumatic, Normocephalic. Negative for: Tenderness, Contusion, Swelling Pupils: Positive for: PERRL. Negative for: Sluggish, Non-Reactive Extroacular Muscles: Positive for: EOMI. Negative for: Gaze Palsy, Entrapment Conjunctiva: Positive for: Normal. Negative for: Injected, Icteric Mouth: Positive for: Moist Mucous Membranes Pharnyx: Positive for: Normal. Negative for: ERYTHEMA, EXUDATE Nose (Internal): Positive for: Normal Inspection Neck: Positive for: Normal Range of Motion, Trachea Midline. Negative for: Meningeal Signs, MIDLINE TENDERNESS, Paraspinal Tenderness, JVD, Lymphadenopathy , Bruit, Other Respiratory/Chest: Positive for: Clear to Auscultation, Good Air Exchange. Negative for: Respiratory Distress, Accessory Muscle Use, Wheezes, Decreased Breath Sounds, Rales, Retracting, Rhonchi Cardiovascular: Positive for: Normal S1, S2, Peripheal Pulses Present, Tachycardic. Negative for: Regular Rate and Rhythm, Murmurs, Irregular Rhythm, Bradycardic Abdomen: Positive for: Tenderness (diffuse to slight palpation), Normal Bowel Sounds. Negative for: Distention, Peritoneal Signs Upper Extremity: Positive for: Normal Inspection, NORMAL PULSES, Capillary Refill < 2s. Negative for: Cyanosis, Edema Lower Extremity: Positive for: Normal Inspection, NORMAL PULSES, Capillary Refill < 2 s. Negative for: Edema, CALF TENDERNESS Neurological: Positive for: GCS=15, CN II-XII Intact, Speech Normal, Motor Func Grossly Intact, Normal Sensory Function Skin: Positive for: Warm, Dry, Normal Color Psychiatric: Positive for: Alert, Oriented x 3, Anxious, Agitated - Medications Active Medications: Active Medications Generic Name Dose Route Start Last Admin Trade Name Freq PRN Reason Stop Dose Admin Acetaminophen 650 mg 10/16/16 14:08 Tylenol 325mg Tab PO BID PRN Fever >100.4 F Amlodipine Besylate 10 mg 10/17/16 10:00 10/17/16 11:20 Norvasc PO Not Given DAILY KELVIN Cyanocobalamin 1,000 mcg 10/17/16 10:00 10/17/16 11:20 Vitamin B12 1000 Mcg Tab PO Not Given DAILY KELVIN Diphenhydramine HCl 25 mg 10/17/16 10:52 Benadryl PO Q6 PRN Agitation Ferrous Sulfate 325 mg 10/16/16 18:00 10/17/16 12:42 Feosol PO Not Given BID KELVIN Heparin Sodium (Porcine) 5,000 units 10/16/16 22:00 10/17/16 11:09 Heparin SC 5,000 units Q12 KELVIN Administration Sodium Chloride 1,000 mls @ 100 mls/hr 10/16/16 14:30 10/17/16 00:11 Sodium Chloride 0.9% IV 100 mls/hr .Q10H KELVIN Administration Levetiracetam 500 mg/ Sodium 105 mls @ 420 mls/hr 10/17/16 10:00 10/17/16 11: 03 Chloride IVPB 420 mls/hr Q12H KELVIN Administration Insulin Aspart 0 unit 10/16/16 16:30 10/17/16 12:47 Novolog SC 3 unit ACHS KELVIN Administration Protocol Insulin Glargine 8 unit 10/16/16 22:00 10/16/16 21:44 Lantus SC 8 u HS KELVIN Administration Lisinopril 20 mg 10/17/16 10:00 10/17/16 11:20 Zestril PO Not Given DAILY KELVIN Lorazepam 1 mg 10/16/16 14:21 10/17/16 12:45 Ativan IVP 1 mg Q6H PRN Administration Anxiety Ondansetron HCl 4 mg 10/17/16 08:34 10/17/16 08:15 Zofran Inj IVP 4 mg Q6H PRN Administration Nausea/Vomiting Pantoprazole Sodium 40 mg 10/17/16 10:15 10/17/16 11:02 Protonix Inj IVP 40 mg Q12H KELVIN Administration Thiamine HCl 100 mg 10/17/16 09:30 10/17/16 11:01 Vitamin B1 Inj IV 100 mg Q8H KELVIN Administration - Patient Studies Lab Studies: Lab Studies 10/17/16 10/17/16 10/17/16 Range/Units 11:54 07:21 06:22 WBC (4.8-10.8) K/uL RBC (3.80-5.20) Mil/uL Hgb (11.0-16.0) g/dL Hct (34.0-47.0) % MCV (81.0-99.0) fL MCH (27.0-31.0) pg MCHC (33.0-37.0) g/dL RDW (11.5-14.5) % Plt Count (130-400) K/uL MPV (7.2-11.7) fL Neut % (Auto) (50.0-75.0) % Lymph % (Auto) (20.0-40.0) % [place] % (Auto) (0.0-10.0) % Eos % (Auto) (0.0-4.0) % Baso % (Auto) (0.0-2.0) % Neut # (1.8-7.0) K/uL Lymph # (1.0-4.3) K/uL [place] # (0.0-0.8) K/uL Eos # (0.0-0.7) K/uL Baso # (0.0-0.2) K/uL APTT 27 (21-34) SECONDS Sodium (132-148) mmol/L Potassium (3.6-5.2) mmol/L Chloride (98-107) mmol/L Carbon Dioxide (22-30) mmol/L Anion Gap (10-20) BUN (7-17) mg/dL Creatinine (0.7-1.2) MG/DL Est GFR ( Amer) Est GFR (Non-Af Amer) POC Glucose (mg/dL) 285 H 265 H (65-110) mg/dL Random Glucose (65-105) mg/dL Calcium (8.6-10.4) mg/dl Phosphorus (2.5-4.5) mg/dL Magnesium (1.6-2.3) mg/dL Total Bilirubin (0.2-1.3) mg/dL AST (14-36) U/L ALT (9-52) U/L Alkaline Phosphatase (38-126) U/L Total Protein (6.3-8.3) g/dL Albumin (3.5-5.0) g/dL Globulin (2.2-3.9) gm/dL Albumin/Globulin Ratio (1.0-2.1) Prolactin (3.0-18.9) ng/mL 10/17/16 10/17/16 10/16/16 Range/Units 06:22 06:22 21:38 WBC 15.6 H (4.8-10.8) K/uL RBC 2.96 L (3.80-5.20) Mil/uL Hgb 8.2 L D (11.0-16.0) g/dL Hct 25.6 L (34.0-47.0) % MCV 86.5 (81.0-99.0) fL MCH 27.9 (27.0-31.0) pg MCHC 32.2 L (33.0-37.0) g/dL RDW 14.6 H (11.5-14.5) % Plt Count 297 (130-400) K/uL MPV 9.7 (7.2-11.7) fL Neut % (Auto) 76.0 H (50.0-75.0) % Lymph % (Auto) 18.7 L (20.0-40.0) % [place] % (Auto) 5.0 (0.0-10.0) % Eos % (Auto) 0.1 (0.0-4.0) % Baso % (Auto) 0.2 (0.0-2.0) % Neut # 11.9 H (1.8-7.0) K/uL Lymph # 2.9 (1.0-4.3) K/uL [place] # 0.8 (0.0-0.8) K/uL Eos # 0.0 (0.0-0.7) K/uL Baso # 0.0 (0.0-0.2) K/uL APTT (21-34) SECONDS Sodium 133 (132-148) mmol/L Potassium 3.2 L (3.6-5.2) mmol/L Chloride 103 (98-107) mmol/L Carbon Dioxide 25 (22-30) mmol/L Anion Gap 8 L (10-20) BUN 26 H (7-17) mg/dL Creatinine 1.8 H (0.7-1.2) MG/DL Est GFR ( Amer) 41 Est GFR (Non-Af Amer) 34 POC Glucose (mg/dL) 317 H (65-110) mg/dL Random Glucose 150 H (65-105) mg/dL Calcium 7.5 L (8.6-10.4) mg/dl Phosphorus 3.7 (2.5-4.5) mg/dL Magnesium 2.1 (1.6-2.3) mg/dL Total Bilirubin 0.4 (0.2-1.3) mg/dL AST 25 (14-36) U/L ALT 18 (9-52) U/L Alkaline Phosphatase 89 (38-126) U/L Total Protein 4.9 L (6.3-8.3) g/dL Albumin 2.2 L (3.5-5.0) g/dL Globulin 2.8 (2.2-3.9) gm/dL Albumin/Globulin Ratio 0.8 L (1.0-2.1) Prolactin (3.0-18.9) ng/mL 10/16/16 10/16/1617 Range/Units 20:32 19:20 18:01 WBC (4.8-10.8) K/uL RBC (3.80-5.20) Mil/uL Hgb (11.0-16.0) g/dL Hct (34.0-47.0) % MCV (81.0-99.0) fL MCH (27.0-31.0) pg MCHC (33.0-37.0) g/dL RDW (11.5-14.5) % Plt Count (130-400) K/uL MPV (7.2-11.7) fL Neut % (Auto) (50.0-75.0) % Lymph % (Auto) (20.0-40.0) % [place] % (Auto) (0.0-10.0) % Eos % (Auto) (0.0-4.0) % Baso % (Auto) (0.0-2.0) % Neut # (1.8-7.0) K/uL Lymph # (1.0-4.3) K/uL [place] # (0.0-0.8) K/uL Eos # (0.0-0.7) K/uL Baso # (0.0-0.2) K/uL APTT (21-34) SECONDS Sodium (132-148) mmol/L Potassium (3.6-5.2) mmol/L Chloride (98-107) mmol/L Carbon Dioxide (22-30) mmol/L Anion Gap (10-20) BUN (7-17) mg/dL Creatinine (0.7-1.2) MG/DL Est GFR ( Amer) Est GFR (Non-Af Amer) POC Glucose (mg/dL) 374 H 493 H* > 500 H* (65-110) mg/dL Random Glucose (65-105) mg/dL Calcium (8.6-10.4) mg/dl Phosphorus (2.5-4.5) mg/dL Magnesium (1.6-2.3) mg/dL Total Bilirubin (0.2-1.3) mg/dL AST (14-36) U/L ALT (9-52) U/L Alkaline Phosphatase (38-126) U/L Total Protein (6.3-8.3) g/dL Albumin (3.5-5.0) g/dL Globulin (2.2-3.9) gm/dL Albumin/Globulin Ratio (1.0-2.1) Prolactin (3.0-18.9) ng/mL 10/16/16 10/16/16 Range/Units 15:17 14:26 WBC (4.8-10.8) K/uL RBC (3.80-5.20) Mil/uL Hgb (11.0-16.0) g/dL Hct (34.0-47.0) % MCV (81.0-99.0) fL MCH (27.0-31.0) pg MCHC (33.0-37.0) g/dL RDW (11.5-14.5) % Plt Count (130-400) K/uL MPV (7.2-11.7) fL Neut % (Auto) (50.0-75.0) % Lymph % (Auto) (20.0-40.0) % [place] % (Auto) (0.0-10.0) % Eos % (Auto) (0.0-4.0) % Baso % (Auto) (0.0-2.0) % Neut # (1.8-7.0) K/uL Lymph # (1.0-4.3) K/uL [place] # (0.0-0.8) K/uL Eos # (0.0-0.7) K/uL Baso # (0.0-0.2) K/uL APTT (21-34) SECONDS Sodium 134 (132-148) mmol/L Potassium 4.1 (3.6-5.2) mmol/L Chloride 101 (98-107) mmol/L Carbon Dioxide 16 L (22-30) mmol/L Anion Gap 21 H (10-20) BUN 30 H (7-17) mg/dL Creatinine 2.0 H (0.7-1.2) MG/DL Est GFR ( Amer) 36 Est GFR (Non-Af Amer) 30 POC Glucose (mg/dL) > 500 H* (65-110) mg/dL Random Glucose 637 H* D (65-105) mg/dL Calcium 7.2 L (8.6-10.4) mg/dl Phosphorus (2.5-4.5) mg/dL Magnesium (1.6-2.3) mg/dL Total Bilirubin 0.4 (0.2-1.3) mg/dL AST 31 (14-36) U/L ALT 27 (9-52) U/L Alkaline Phosphatase 103 (38-126) U/L Total Protein 5.4 L (6.3-8.3) g/dL Albumin 2.4 L (3.5-5.0) g/dL Globulin 3.0 (2.2-3.9) gm/dL Albumin/Globulin Ratio 0.8 L (1.0-2.1) Prolactin 239.7 H (3.0-18.9) ng/mL Laboratory Results - last 24 hr 10/16/16 10/16/16 10/16/16 14:26 15:17 18:01 WBC RBC Hgb Hct MCV MCH MCHC RDW Plt Count MPV Neut % (Auto) Lymph % (Auto) [place] % (Auto) Eos % (Auto) Baso % (Auto) Neut # Lymph # [place] # Eos # Baso # APTT Sodium 134 Potassium 4.1 Chloride 101 Carbon Dioxide 16 L Anion Gap 21 H BUN 30 H Creatinine 2.0 H Est GFR ( Amer) 36 Est GFR (Non-Af Amer) 30 POC Glucose (mg/dL) > 500 H* > 500 H* Random Glucose 637 H* D Calcium 7.2 L Phosphorus Magnesium Total Bilirubin 0.4 AST 31 ALT 27 Alkaline Phosphatase 103 Total Protein 5.4 L Albumin 2.4 L Globulin 3.0 Albumin/Globulin Ratio 0.8 L Prolactin 239.7 H 10/16/16 10/16/16 10/16/16 19:20 20:32 21:38 WBC RBC Hgb Hct MCV MCH MCHC RDW Plt Count MPV Neut % (Auto) Lymph % (Auto) [place] % (Auto) Eos % (Auto) Baso % (Auto) Neut # Lymph # [place] # Eos # Baso # APTT Sodium Potassium Chloride Carbon Dioxide Anion Gap BUN Creatinine Est GFR ( Amer) Est GFR (Non-Af Amer) POC Glucose (mg/dL) 493 H* 374 H 317 H Random Glucose Calcium Phosphorus Magnesium Total Bilirubin AST ALT Alkaline Phosphatase Total Protein Albumin Globulin Albumin/Globulin Ratio Prolactin 10/17/16 10/17/16 10/17/16 06:22 06:22 06:22 WBC 15.6 H RBC 2.96 L Hgb 8.2 L D Hct 25.6 L MCV 86.5 MCH 27.9 MCHC 32.2 L RDW 14.6 H Plt Count 297 MPV 9.7 Neut % (Auto) 76.0 H Lymph % (Auto) 18.7 L [place] % (Auto) 5.0 Eos % (Auto) 0.1 Baso % (Auto) 0.2 Neut # 11.9 H Lymph # 2.9 [place] # 0.8 Eos # 0.0 Baso # 0.0 APTT 27 Sodium 133 Potassium 3.2 L Chloride 103 Carbon Dioxide 25 Anion Gap 8 L BUN 26 H Creatinine 1.8 H Est GFR ( Amer) 41 Est GFR (Non-Af Amer) 34 POC Glucose (mg/dL) Random Glucose 150 H Calcium 7.5 L Phosphorus 3.7 Magnesium 2.1 Total Bilirubin 0.4 AST 25 ALT 18 Alkaline Phosphatase 89 Total Protein 4.9 L Albumin 2.2 L Globulin 2.8 Albumin/Globulin Ratio 0.8 L Prolactin 10/17/16 10/17/16 07:21 11:54 WBC RBC Hgb Hct MCV MCH MCHC RDW Plt Count MPV Neut % (Auto) Lymph % (Auto) [place] % (Auto) Eos % (Auto) Baso % (Auto) Neut # Lymph # [place] # Eos # Baso # APTT Sodium Potassium Chloride Carbon Dioxide Anion Gap BUN Creatinine Est GFR ( Amer) Est GFR (Non-Af Amer) POC Glucose (mg/dL) 265 H 285 H Random Glucose Calcium Phosphorus Magnesium Total Bilirubin AST ALT Alkaline Phosphatase Total Protein Albumin Globulin Albumin/Globulin Ratio Prolactin Fingerstick Blood Sugar Results: 236 Review of Systems - Review of Systems Systems not reviewed;Unavailable: Acuity of Condition Critical Care Progress Note - Nutrition Nutrition: Nutrition Category Date Time Status Heart Healthy Diet [DIET] Diets 10/16/16 Dinner Active Assessment/Plan - Assessment and Plan (Free Text) Assessment: 26 year old female with PMHx Seizure D/O, Gastroparesis, Diabetes, HTN - presents to the ED c/o increased seizure activity and abdominal pain for the past 2 weeks Plan: Neuro -multiple tonic clonic seizures with no postictal- likely grand mal? -Keppra 500mg iv q12 -Ativan 1mg ivp q4 prn -Vitamin B1 100mg iv q8 -f/u EEG -head CT: negative -prolactin: 239.7 -will order MRI when patient is more stable -Neuro Dr Andrae Triplett following Cardiovascular -Hypertensive and tachycardic likely secondary to dehydration and distress from multiple seizures and emesis all day -Norvasc 10mg po daily -Lisinopril 20mg po daily Pulmonology -no acute issues GI -hx of gastroparesis -multiple episodes of nonbloody nonbilious emesis -NPO except meds -NS @ 100cc/hr -Zofran 4mg ivp q6 prn -Protonix 40mg ivp bid Endo -Hyperosmolar nonketotic state -RISS high dose -Lantus 8U sc hs -Accucheck Q6H Heme -hx of EDITH? -f/u iron studies -Feosol 325mg po bid when patient can tolerate Renal -GABRIELA from dehydration secondary to repetitive emesis -BUN/Cr 26/1.8 -Patient was given 1 bolus- still no UO -will do bladder scan and insert chu if necessary MSK -no acute issues ID -urine culture negative -blood culture prelim negative -Tylenol 650mg po bid prn Temp > 100.4F Psych -question of malingering/bulimia nervosa -UDS + marijuana -Benadryl 25mg po q8H prn -Dr. New psych consulted GI ppx: Protonix 40mg ivp bid VTE ppx: Heparin 5000u sc q12; SCDs Code status: full code Case discussed with Dr. Michael Moreira PGY2 <Bruce Rodriguez S - Last Filed: 10/17/16 17:53> CCU Objective - Vital Signs / Intake & Output Vital Signs (Last 4 hours): Vital Signs Pulse Resp BP Pulse Ox 10/17/16 17:00 123 H 20 98 10/17/16 16:14 137 H 22 119/93 H 10/17/16 16:00 124 H 17 10/17/16 15:13 96 H 17 127/84 98 10/17/16 15:00 97 H 18 98 10/17/16 14:14 99 H 17 119/73 97 10/17/16 14:00 101 H 18 97 Intake and Output (Last 8hrs): Intake & Output 10/17/16 10/17/16 10/17/16 06:59 14:59 22:59 Intake Total 940 1700 250 Output Total 500 0 700 Balance 440 1700 -450 Intake: Intake, IV Amount 600 1700 200 Left External Jugular 600 1700 200 Oral 340 50 Output: Urine 500 0 700 Urine, Voided 500 0 700 Stool 0 Other: # Bowel Movements 0 0 - Medications Active Medications: Active Medications Generic Name Dose Route Start Last Admin Trade Name Freq PRN Reason Stop Dose Admin Acetaminophen 650 mg 10/16/16 14:08 Tylenol 325mg Tab PO BID PRN Fever >100.4 F Amlodipine Besylate 10 mg 10/17/16 10:00 10/17/16 11:20 Norvasc PO Not Given DAILY KELVIN Cyanocobalamin 1,000 mcg 10/18/16 10:00 Vitamin B12 1000 Mcg/Ml Inj IM 10/22/16 12:00 DAILY KELVIN Diphenhydramine HCl 25 mg 10/17/16 10:52 Benadryl PO Q6 PRN Agitation Diphenhydramine HCl 25 mg 10/17/16 14:48 Benadryl IVP Q8H PRN Agitation Ferrous Sulfate 325 mg 10/16/16 18:00 10/17/16 12:42 Feosol PO Not Given BID KELVIN Heparin Sodium (Porcine) 5,000 units 10/16/16 22:00 10/17/16 11:09 Heparin SC 5,000 units Q12 KELVIN Administration Sodium Chloride 1,000 mls @ 100 mls/hr 10/16/16 14:30 10/17/16 15:09 Sodium Chloride 0.9% IV 100 mls/hr .Q10H KELVIN Administration Levetiracetam 500 mg/ Sodium 105 mls @ 420 mls/hr 10/17/16 10:00 10/17/16 11: 03 Chloride IVPB 420 mls/hr Q12H KELVIN Administration Insulin Aspart 0 unit 10/17/16 18:00 Novolog SC Q6 [facility] Protocol Insulin Glargine 8 unit 10/16/16 22:00 10/16/16 21:44 Lantus SC 8 u HS KELVIN Administration Lisinopril 20 mg 10/17/16 10:00 10/17/16 11:20 Zestril PO Not Given DAILY KELVIN Lorazepam 1 mg 10/17/16 15:43 10/17/16 16:53 Ativan IVP 1 mg Q4H PRN Administration Anxiety Ondansetron HCl 4 mg 10/17/16 08:34 10/17/16 08:15 Zofran Inj IVP 4 mg Q6H PRN Administration Nausea/Vomiting Pantoprazole Sodium 40 mg 10/17/16 10:15 10/17/16 11:02 Protonix Inj IVP 40 mg Q12H KELVIN Administration Thiamine HCl 100 mg 10/17/16 09:30 10/17/16 16:55 Vitamin B1 Inj IV 100 mg Q8H KELVIN Administration - Patient Studies Lab Studies: Lab Studies 10/17/16 10/17/16 10/17/16 Range/Units 16:20 14:49 11:54 WBC (4.8-10.8) K/uL RBC (3.80-5.20) Mil/uL Hgb (11.0-16.0) g/dL Hct (34.0-47.0) % MCV (81.0-99.0) fL MCH (27.0-31.0) pg MCHC (33.0-37.0) g/dL RDW (11.5-14.5) % Plt Count (130-400) K/uL MPV (7.2-11.7) fL Neut % (Auto) (50.0-75.0) % Lymph % (Auto) (20.0-40.0) % [place] % (Auto) (0.0-10.0) % Eos % (Auto) (0.0-4.0) % Baso % (Auto) (0.0-2.0) % Neut # (1.8-7.0) K/uL Lymph # (1.0-4.3) K/uL [place] # (0.0-0.8) K/uL Eos # (0.0-0.7) K/uL Baso # (0.0-0.2) K/uL APTT (21-34) SECONDS Sodium 136 (132-148) mmol/L Potassium 3.7 (3.6-5.2) mmol/L Chloride 107 (98-107) mmol/L Carbon Dioxide 21 L (22-30) mmol/L Anion Gap 12 (10-20) BUN 23 H (7-17) mg/dL Creatinine 1.8 H (0.7-1.2) MG/DL Est GFR ( Amer) 41 Est GFR (Non-Af Amer) 34 POC Glucose (mg/dL) 222 H 285 H (65-110) mg/dL Random Glucose 195 H (65-105) mg/dL Calcium 7.5 L (8.6-10.4) mg/dl Phosphorus (2.5-4.5) mg/dL Magnesium (1.6-2.3) mg/dL Total Bilirubin (0.2-1.3) mg/dL AST (14-36) U/L ALT (9-52) U/L Alkaline Phosphatase (38-126) U/L Total Protein (6.3-8.3) g/dL Albumin (3.5-5.0) g/dL Globulin (2.2-3.9) gm/dL Albumin/Globulin Ratio (1.0-2.1) 10/17/16 10/17/16 10/17/16 Range/Units 07:21 06:22 06:22 WBC (4.8-10.8) K/uL RBC (3.80-5.20) Mil/uL Hgb (11.0-16.0) g/dL Hct (34.0-47.0) % MCV (81.0-99.0) fL MCH (27.0-31.0) pg MCHC (33.0-37.0) g/dL RDW (11.5-14.5) % Plt Count (130-400) K/uL MPV (7.2-11.7) fL Neut % (Auto) (50.0-75.0) % Lymph % (Auto) (20.0-40.0) % [place] % (Auto) (0.0-10.0) % Eos % (Auto) (0.0-4.0) % Baso % (Auto) (0.0-2.0) % Neut # (1.8-7.0) K/uL Lymph # (1.0-4.3) K/uL [place] # (0.0-0.8) K/uL Eos # (0.0-0.7) K/uL Baso # (0.0-0.2) K/uL APTT 27 (21-34) SECONDS Sodium 133 (132-148) mmol/L Potassium 3.2 L (3.6-5.2) mmol/L Chloride 103 (98-107) mmol/L Carbon Dioxide 25 (22-30) mmol/L Anion Gap 8 L (10-20) BUN 26 H (7-17) mg/dL Creatinine 1.8 H (0.7-1.2) MG/DL Est GFR ( Amer) 41 Est GFR (Non-Af Amer) 34 POC Glucose (mg/dL) 265 H (65-110) mg/dL Random Glucose 150 H (65-105) mg/dL Calcium 7.5 L (8.6-10.4) mg/dl Phosphorus 3.7 (2.5-4.5) mg/dL Magnesium 2.1 (1.6-2.3) mg/dL Total Bilirubin 0.4 (0.2-1.3) mg/dL AST 25 (14-36) U/L ALT 18 (9-52) U/L Alkaline Phosphatase 89 (38-126) U/L Total Protein 4.9 L (6.3-8.3) g/dL Albumin 2.2 L (3.5-5.0) g/dL Globulin 2.8 (2.2-3.9) gm/dL Albumin/Globulin Ratio 0.8 L (1.0-2.1) 10/17/16 10/16/16 10/16/16 Range/Units 06:22 21:38 20:32 WBC 15.6 H (4.8-10.8) K/uL RBC 2.96 L (3.80-5.20) Mil/uL Hgb 8.2 L D (11.0-16.0) g/dL Hct 25.6 L (34.0-47.0) % MCV 86.5 (81.0-99.0) fL MCH 27.9 (27.0-31.0) pg MCHC 32.2 L (33.0-37.0) g/dL RDW 14.6 H (11.5-14.5) % Plt Count 297 (130-400) K/uL MPV 9.7 (7.2-11.7) fL Neut % (Auto) 76.0 H (50.0-75.0) % Lymph % (Auto) 18.7 L (20.0-40.0) % [place] % (Auto) 5.0 (0.0-10.0) % Eos % (Auto) 0.1 (0.0-4.0) % Baso % (Auto) 0.2 (0.0-2.0) % Neut # 11.9 H (1.8-7.0) K/uL Lymph # 2.9 (1.0-4.3) K/uL [place] # 0.8 (0.0-0.8) K/uL Eos # 0.0 (0.0-0.7) K/uL Baso # 0.0 (0.0-0.2) K/uL APTT (21-34) SECONDS Sodium (132-148) mmol/L Potassium (3.6-5.2) mmol/L Chloride (98-107) mmol/L Carbon Dioxide (22-30) mmol/L Anion Gap (10-20) BUN (7-17) mg/dL Creatinine (0.7-1.2) MG/DL Est GFR ( Amer) Est GFR (Non-Af Amer) POC Glucose (mg/dL) 317 H 374 H (65-110) mg/dL Random Glucose (65-105) mg/dL Calcium (8.6-10.4) mg/dl Phosphorus (2.5-4.5) mg/dL Magnesium (1.6-2.3) mg/dL Total Bilirubin (0.2-1.3) mg/dL AST (14-36) U/L ALT (9-52) U/L Alkaline Phosphatase (38-126) U/L Total Protein (6.3-8.3) g/dL Albumin (3.5-5.0) g/dL Globulin (2.2-3.9) gm/dL Albumin/Globulin Ratio (1.0-2.1) 10/16/16 10/16/16 Range/Units 19:20 18:01 WBC (4.8-10.8) K/uL RBC (3.80-5.20) Mil/uL Hgb (11.0-16.0) g/dL Hct (34.0-47.0) % MCV (81.0-99.0) fL MCH (27.0-31.0) pg MCHC (33.0-37.0) g/dL RDW (11.5-14.5) % Plt Count (130-400) K/uL MPV (7.2-11.7) fL Neut % (Auto) (50.0-75.0) % Lymph % (Auto) (20.0-40.0) % [place] % (Auto) (0.0-10.0) % Eos % (Auto) (0.0-4.0) % Baso % (Auto) (0.0-2.0) % Neut # (1.8-7.0) K/uL Lymph # (1.0-4.3) K/uL [place] # (0.0-0.8) K/uL Eos # (0.0-0.7) K/uL Baso # (0.0-0.2) K/uL APTT (21-34) SECONDS Sodium (132-148) mmol/L Potassium (3.6-5.2) mmol/L Chloride (98-107) mmol/L Carbon Dioxide (22-30) mmol/L Anion Gap (10-20) BUN (7-17) mg/dL Creatinine (0.7-1.2) MG/DL Est GFR ( Amer) Est GFR (Non-Af Amer) POC Glucose (mg/dL) 493 H* > 500 H* (65-110) mg/dL Random Glucose (65-105) mg/dL Calcium (8.6-10.4) mg/dl Phosphorus (2.5-4.5) mg/dL Magnesium (1.6-2.3) mg/dL Total Bilirubin (0.2-1.3) mg/dL AST (14-36) U/L ALT (9-52) U/L Alkaline Phosphatase (38-126) U/L Total Protein (6.3-8.3) g/dL Albumin (3.5-5.0) g/dL Globulin (2.2-3.9) gm/dL Albumin/Globulin Ratio (1.0-2.1) Laboratory Results - last 24 hr 10/16/16 10/16/16 10/16/16 18:01 19:20 20:32 WBC RBC Hgb Hct MCV MCH MCHC RDW Plt Count MPV Neut % (Auto) Lymph % (Auto) [place] % (Auto) Eos % (Auto) Baso % (Auto) Neut # Lymph # [place] # Eos # Baso # APTT Sodium Potassium Chloride Carbon Dioxide Anion Gap BUN Creatinine Est GFR ( Amer) Est GFR (Non-Af Amer) POC Glucose (mg/dL) > 500 H* 493 H* 374 H Random Glucose Calcium Phosphorus Magnesium Total Bilirubin AST ALT Alkaline Phosphatase Total Protein Albumin Globulin Albumin/Globulin Ratio 10/16/16 10/17/16 10/17/16 21:38 06:22 06:22 WBC 15.6 H RBC 2.96 L Hgb 8.2 L D Hct 25.6 L MCV 86.5 MCH 27.9 MCHC 32.2 L RDW 14.6 H Plt Count 297 MPV 9.7 Neut % (Auto) 76.0 H Lymph % (Auto) 18.7 L [place] % (Auto) 5.0 Eos % (Auto) 0.1 Baso % (Auto) 0.2 Neut # 11.9 H Lymph # 2.9 [place] # 0.8 Eos # 0.0 Baso # 0.0 APTT Sodium 133 Potassium 3.2 L Chloride 103 Carbon Dioxide 25 Anion Gap 8 L BUN 26 H Creatinine 1.8 H Est GFR ( Amer) 41 Est GFR (Non-Af Amer) 34 POC Glucose (mg/dL) 317 H Random Glucose 150 H Calcium 7.5 L Phosphorus 3.7 Magnesium 2.1 Total Bilirubin 0.4 AST 25 ALT 18 Alkaline Phosphatase 89 Total Protein 4.9 L Albumin 2.2 L Globulin 2.8 Albumin/Globulin Ratio 0.8 L 10/17/16 10/17/16 10/17/16 06:22 07:21 11:54 WBC RBC Hgb Hct MCV MCH MCHC RDW Plt Count MPV Neut % (Auto) Lymph % (Auto) [place] % (Auto) Eos % (Auto) Baso % (Auto) Neut # Lymph # [place] # Eos # Baso # APTT 27 Sodium Potassium Chloride Carbon Dioxide Anion Gap BUN Creatinine Est GFR ( Amer) Est GFR (Non-Af Amer) POC Glucose (mg/dL) 265 H 285 H Random Glucose Calcium Phosphorus Magnesium Total Bilirubin AST ALT Alkaline Phosphatase Total Protein Albumin Globulin Albumin/Globulin Ratio 10/17/16 10/17/16 14:49 16:20 WBC RBC Hgb Hct MCV MCH MCHC RDW Plt Count MPV Neut % (Auto) Lymph % (Auto) [place] % (Auto) Eos % (Auto) Baso % (Auto) Neut # Lymph # [place] # Eos # Baso # APTT Sodium 136 Potassium 3.7 Chloride 107 Carbon Dioxide 21 L Anion Gap 12 BUN 23 H Creatinine 1.8 H Est GFR ( Amer) 41 Est GFR (Non-Af Amer) 34 POC Glucose (mg/dL) 222 H Random Glucose 195 H Calcium 7.5 L Phosphorus Magnesium Total Bilirubin AST ALT Alkaline Phosphatase Total Protein Albumin Globulin Albumin/Globulin Ratio Attending/Attestation - Attestation I have personally seen and examined this patient.: Yes I have fully participated in the care of the patient.: Yes I have reviewed all pertinent clinical information: Yes Notes (Text): 10/17/16 17:52 patient seen and examined in the intensive care unit. Case discussed with house staff in the morning rounds. Patient continued to have vomiting Seizure-like activity few times Patient started on Ativan and continued on keppra neurologic followup Unable to get MRI because of vomiting
[2016-10-17] MEDS ORDERED: (Novolog) Insulin Aspart, Recombinant 100 u/ml 10 ml vial SC SCH (15:15)
[2016-10-17 15:16] LABS: CALCIUM 7.5 mg/dl (8.6-10.4)
[2016-10-17] MEDS: (Lantus) Insulin Glargine, Recombinant SC SCH (21:53)
[2016-10-18] MEDS: (Novolog) Insulin Aspart, Recombinant 100 u/ml 10 ml vial SC SCH ×3 (01:03→11:21)
[2016-10-18] MEDS: Thiamine 100 mg/ml Inj IV SCH ×2 (01:04→10:33)
[2016-10-18] MEDS: Sodium Chloride 0.9% 1,000 ML IV SCH ×3 (01:07→22:47)
[2016-10-18 07:05] LABS: BASO # 0.1 K/uL (0.0-0.2); BASO % 0.6 % (0.0-2.0); HEMOGLOBIN 9.1 g/dL (11.0-16.0); LYMPH # 1.6 K/uL (1.0-4.3); LYMPH % 15.6 % (20.0-40.0); MEAN CELL VOLUME 86.8 fL (81.0-99.0); MEAN CORPUSCULAR HEMOGLOBIN 28.3 pg (27.0-31.0); MEAN CORPUSCULAR HGB CONC 32.6 g/dL (33.0-37.0); MEAN PLATELET VOLUME 9.5 fL (7.2-11.7); MONO # 0.5 K/uL (0.0-0.8); MONO % 4.6 % (0.0-10.0); NEUT # 8.3 K/uL (1.8-7.0); NEUT % 79.2 % (50.0-75.0); RBC 3.22 Mil/uL (3.80-5.20); RED CELL DISTRIBUTION WIDTH 14.6 % (11.5-14.5); WHITE BLOOD COUNT 10.5 K/uL (4.8-10.8)
[2016-10-18 07:08] LABS: ALBUMIN 2.2 g/dL (3.5-5.0)
[2016-10-18 07:11] LABS: ALB/GLOB RATIO 0.8 (1.0-2.1)
--- NOTE | 2016-10-18 08:36 | CP.CCUPN ---
CCU Subjective - Physician Review Events Since Last Encounter (Free Text): 10/18/16 08:35 26-year-old female with history of hypertension, recurrent seizure activities. Patient admitted to the intensive care unit with the repeated activities of seizure activities. But interictal phase patient is more awake and responding. Patient was having repeated episodes of retching and vomiting. Multiple Ativan was given. Also received a Keppra. Patient is currently sleeping. But awakened with this simple Stemmler. CCU Objective - Vital Signs / Intake & Output Vital Signs (Last 4 hours): Vital Signs Pulse Resp BP Pulse Ox 10/18/16 07:00 98 H 19 97 10/18/16 06:43 104 H 17 138/92 H 96 10/18/16 06:00 104 H 18 96 10/18/16 05:43 112 H 18 142/92 H 97 10/18/16 05:00 115 H 18 97 10/18/16 04:49 125 H 20 174/112 H 99 Intake and Output (Last 8hrs): Intake & Output 10/17/16 10/18/16 10/18/16 22:59 06:59 14:59 Intake Total 850 800 100 Output Total 750 650 0 Balance 100 150 100 Intake: Intake, IV Amount 800 800 100 Left External Jugular 800 800 100 Oral 50 Output: Urine 700 650 0 Urine, Voided 700 650 0 Emesis 50 Other: # Voids Urine, Voided 0 # Bowel Movements 0 0 0 - Physical Exam Narrative Physical Exam (Free Text): 10/18/16 08:35 Vital signs reviewed No neck vein distention noted Chest good air entry bilaterally, no wheezing or rales noted CVS regular heart sound, no murmur noted Abdomen soft, nontender. Extremities no pedal edema [employer] alert awake oriented 3, no functional neurological deficit Head: Positive for: Atraumatic, Normocephalic. Negative for: Tenderness, Contusion, Swelling Pupils: Positive for: PERRL. Negative for: Sluggish, Non-Reactive Extroacular Muscles: Positive for: EOMI. Negative for: Gaze Palsy, Entrapment Conjunctiva: Positive for: Normal. Negative for: Injected, Icteric Mouth: Positive for: Moist Mucous Membranes Pharnyx: Positive for: Normal. Negative for: ERYTHEMA, EXUDATE Nose (Internal): Positive for: Normal Inspection Neck: Positive for: Normal Range of Motion, Trachea Midline. Negative for: Meningeal Signs, MIDLINE TENDERNESS, Paraspinal Tenderness, JVD, Lymphadenopathy , Bruit, Other Respiratory/Chest: Positive for: Clear to Auscultation, Good Air Exchange. Negative for: Respiratory Distress, Accessory Muscle Use, Wheezes, Decreased Breath Sounds, Rales, Retracting, Rhonchi Cardiovascular: Positive for: Normal S1, S2, Peripheal Pulses Present, Tachycardic. Negative for: Regular Rate and Rhythm, Murmurs, Irregular Rhythm, Bradycardic Abdomen: Positive for: Tenderness (diffuse to slight palpation), Normal Bowel Sounds. Negative for: Distention, Peritoneal Signs Upper Extremity: Positive for: Normal Inspection, NORMAL PULSES, Capillary Refill < 2s. Negative for: Cyanosis, Edema Lower Extremity: Positive for: Normal Inspection, NORMAL PULSES, Capillary Refill < 2 s. Negative for: Edema, CALF TENDERNESS Neurological: Positive for: GCS=15, CN II-XII Intact, Speech Normal, Motor Func Grossly Intact, Normal Sensory Function Skin: Positive for: Warm, Dry, Normal Color Psychiatric: Positive for: Alert, Oriented x 3, Anxious, Agitated - Medications Active Medications: Active Medications Generic Name Dose Route Start Last Admin Trade Name Freq PRN Reason Stop Dose Admin Acetaminophen 650 mg 10/16/16 14:08 Tylenol 325mg Tab PO BID PRN Fever >100.4 F Amlodipine Besylate 10 mg 10/17/16 10:00 10/17/16 11:20 Norvasc PO Not Given DAILY KELVIN Cyanocobalamin 1,000 mcg 10/18/16 10:00 Vitamin B12 1000 Mcg/Ml Inj IM 10/22/16 12:00 DAILY KELVIN Diphenhydramine HCl 25 mg 10/17/16 10:52 Benadryl PO Q6 PRN Agitation Diphenhydramine HCl 25 mg 10/17/16 14:48 Benadryl IVP Q8H PRN Agitation Ferrous Sulfate 325 mg 10/16/16 18:00 10/17/16 20:02 Feosol PO Not Given BID KELVIN Heparin Sodium (Porcine) 5,000 units 10/16/16 22:00 10/17/16 21:54 Heparin SC 5,000 units Q12 KELVIN Administration Sodium Chloride 1,000 mls @ 100 mls/hr 10/16/16 14:30 10/18/16 07:10 Sodium Chloride 0.9% IV Not Given .Q10H KELVIN Levetiracetam 500 mg/ Sodium 105 mls @ 420 mls/hr 10/17/16 10:00 10/17/16 21: 55 Chloride IVPB 420 mls/hr Q12H KELVIN Administration Insulin Aspart 0 unit 10/17/16 18:00 10/18/16 06:10 Novolog SC 1 unit Q6 KELVIN Administration Protocol Insulin Glargine 8 unit 10/16/16 22:00 10/17/16 21:53 Lantus SC 8 u HS KELVIN Administration Lisinopril 20 mg 10/17/16 10:00 10/17/16 11:20 Zestril PO Not Given DAILY KELVIN Lorazepam 1 mg 10/17/16 15:43 10/18/16 03:22 Ativan IVP 1 mg Q4H PRN Administration Anxiety Ondansetron HCl 4 mg 10/17/16 08:34 10/17/16 20:08 Zofran Inj IVP 4 mg Q6H PRN Administration Nausea/Vomiting Pantoprazole Sodium 40 mg 10/17/16 10:15 10/17/16 21:56 Protonix Inj IVP 40 mg Q12H KELVIN Administration Thiamine HCl 100 mg 10/17/16 09:30 10/18/16 01:04 Vitamin B1 Inj IV 100 mg Q8H KELVIN Administration - Patient Studies Lab Studies: Lab Studies 10/18/16 10/18/16 10/18/16 Range/Units 06:46 06:46 06:46 WBC (4.8-10.8) K/uL RBC (3.80-5.20) Mil/uL Hgb (11.0-16.0) g/dL Hct (34.0-47.0) % MCV (81.0-99.0) fL MCH (27.0-31.0) pg MCHC (33.0-37.0) g/dL RDW (11.5-14.5) % Plt Count (130-400) K/uL MPV (7.2-11.7) fL Neut % (Auto) (50.0-75.0) % Lymph % (Auto) (20.0-40.0) % [place] % (Auto) (0.0-10.0) % Eos % (Auto) (0.0-4.0) % Baso % (Auto) (0.0-2.0) % Neut # (1.8-7.0) K/uL Lymph # (1.0-4.3) K/uL [place] # (0.0-0.8) K/uL Eos # (0.0-0.7) K/uL Baso # (0.0-0.2) K/uL Sodium (132-148) mmol/L Potassium (3.6-5.2) mmol/L Chloride (98-107) mmol/L Carbon Dioxide (22-30) mmol/L Anion Gap (10-20) BUN (7-17) mg/dL Creatinine (0.7-1.2) MG/DL Est GFR ( Amer) Est GFR (Non-Af Amer) POC Glucose (mg/dL) (65-110) mg/dL Random Glucose (65-105) mg/dL Calcium (8.6-10.4) mg/dl Phosphorus (2.5-4.5) mg/dL Magnesium (1.6-2.3) mg/dL % Saturation 37 (20-55) Transferrin 123.00 L (206-381) mg/dL Ferritin 114.0 ng/mL Total Bilirubin (0.2-1.3) mg/dL AST (14-36) U/L ALT (9-52) U/L Alkaline Phosphatase (38-126) U/L Total Protein (6.3-8.3) g/dL Albumin (3.5-5.0) g/dL Globulin (2.2-3.9) gm/dL Albumin/Globulin Ratio (1.0-2.1) 10/18/16 10/18/16 10/18/16 Range/Units 06:46 06:46 06:03 WBC 10.5 (4.8-10.8) K/uL RBC 3.22 L (3.80-5.20) Mil/uL Hgb 9.1 L (11.0-16.0) g/dL Hct 27.9 L (34.0-47.0) % MCV 86.8 (81.0-99.0) fL MCH 28.3 (27.0-31.0) pg MCHC 32.6 L (33.0-37.0) g/dL RDW 14.6 H (11.5-14.5) % Plt Count 330 (130-400) K/uL MPV 9.5 (7.2-11.7) fL Neut % (Auto) 79.2 H (50.0-75.0) % Lymph % (Auto) 15.6 L (20.0-40.0) % [place] % (Auto) 4.6 (0.0-10.0) % Eos % (Auto) 0.0 (0.0-4.0) % Baso % (Auto) 0.6 (0.0-2.0) % Neut # 8.3 H (1.8-7.0) K/uL Lymph # 1.6 (1.0-4.3) K/uL [place] # 0.5 (0.0-0.8) K/uL Eos # 0.0 (0.0-0.7) K/uL Baso # 0.1 (0.0-0.2) K/uL Sodium 134 (132-148) mmol/L Potassium 3.3 L (3.6-5.2) mmol/L Chloride 106 (98-107) mmol/L Carbon Dioxide 21 L (22-30) mmol/L Anion Gap 10 (10-20) BUN 18 H (7-17) mg/dL Creatinine 1.8 H (0.7-1.2) MG/DL Est GFR ( Amer) 41 Est GFR (Non-Af Amer) 34 POC Glucose (mg/dL) 185 H (65-110) mg/dL Random Glucose 184 H (65-105) mg/dL Calcium 8.0 L (8.6-10.4) mg/dl Phosphorus 2.7 (2.5-4.5) mg/dL Magnesium 2.0 (1.6-2.3) mg/dL % Saturation (20-55) Transferrin (206-381) mg/dL Ferritin ng/mL Total Bilirubin 0.3 (0.2-1.3) mg/dL AST 19 (14-36) U/L ALT 25 (9-52) U/L Alkaline Phosphatase 103 (38-126) U/L Total Protein 5.1 L (6.3-8.3) g/dL Albumin 2.2 L (3.5-5.0) g/dL Globulin 2.9 (2.2-3.9) gm/dL Albumin/Globulin Ratio 0.8 L (1.0-2.1) 10/18/16 10/17/16 10/17/16 Range/Units 00:00 21:08 16:20 WBC (4.8-10.8) K/uL RBC (3.80-5.20) Mil/uL Hgb (11.0-16.0) g/dL Hct (34.0-47.0) % MCV (81.0-99.0) fL MCH (27.0-31.0) pg MCHC (33.0-37.0) g/dL RDW (11.5-14.5) % Plt Count (130-400) K/uL MPV (7.2-11.7) fL Neut % (Auto) (50.0-75.0) % Lymph % (Auto) (20.0-40.0) % [place] % (Auto) (0.0-10.0) % Eos % (Auto) (0.0-4.0) % Baso % (Auto) (0.0-2.0) % Neut # (1.8-7.0) K/uL Lymph # (1.0-4.3) K/uL [place] # (0.0-0.8) K/uL Eos # (0.0-0.7) K/uL Baso # (0.0-0.2) K/uL Sodium (132-148) mmol/L Potassium (3.6-5.2) mmol/L Chloride (98-107) mmol/L Carbon Dioxide (22-30) mmol/L Anion Gap (10-20) BUN (7-17) mg/dL Creatinine (0.7-1.2) MG/DL Est GFR ( Amer) Est GFR (Non-Af Amer) POC Glucose (mg/dL) 272 H 292 H 222 H (65-110) mg/dL Random Glucose (65-105) mg/dL Calcium (8.6-10.4) mg/dl Phosphorus (2.5-4.5) mg/dL Magnesium (1.6-2.3) mg/dL % Saturation (20-55) Transferrin (206-381) mg/dL Ferritin ng/mL Total Bilirubin (0.2-1.3) mg/dL AST (14-36) U/L ALT (9-52) U/L Alkaline Phosphatase (38-126) U/L Total Protein (6.3-8.3) g/dL Albumin (3.5-5.0) g/dL Globulin (2.2-3.9) gm/dL Albumin/Globulin Ratio (1.0-2.1) 10/17/16 10/17/16 Range/Units 14:49 11:54 WBC (4.8-10.8) K/uL RBC (3.80-5.20) Mil/uL Hgb (11.0-16.0) g/dL Hct (34.0-47.0) % MCV (81.0-99.0) fL MCH (27.0-31.0) pg MCHC (33.0-37.0) g/dL RDW (11.5-14.5) % Plt Count (130-400) K/uL MPV (7.2-11.7) fL Neut % (Auto) (50.0-75.0) % Lymph % (Auto) (20.0-40.0) % [place] % (Auto) (0.0-10.0) % Eos % (Auto) (0.0-4.0) % Baso % (Auto) (0.0-2.0) % Neut # (1.8-7.0) K/uL Lymph # (1.0-4.3) K/uL [place] # (0.0-0.8) K/uL Eos # (0.0-0.7) K/uL Baso # (0.0-0.2) K/uL Sodium 136 (132-148) mmol/L Potassium 3.7 (3.6-5.2) mmol/L Chloride 107 (98-107) mmol/L Carbon Dioxide 21 L (22-30) mmol/L Anion Gap 12 (10-20) BUN 23 H (7-17) mg/dL Creatinine 1.8 H (0.7-1.2) MG/DL Est GFR ( Amer) 41 Est GFR (Non-Af Amer) 34 POC Glucose (mg/dL) 285 H (65-110) mg/dL Random Glucose 195 H (65-105) mg/dL Calcium 7.5 L (8.6-10.4) mg/dl Phosphorus (2.5-4.5) mg/dL Magnesium (1.6-2.3) mg/dL % Saturation (20-55) Transferrin (206-381) mg/dL Ferritin ng/mL Total Bilirubin (0.2-1.3) mg/dL AST (14-36) U/L ALT (9-52) U/L Alkaline Phosphatase (38-126) U/L Total Protein (6.3-8.3) g/dL Albumin (3.5-5.0) g/dL Globulin (2.2-3.9) gm/dL Albumin/Globulin Ratio (1.0-2.1) Laboratory Results - last 24 hr 10/17/16 10/17/16 10/17/16 11:54 14:49 16:20 WBC RBC Hgb Hct MCV MCH MCHC RDW Plt Count MPV Neut % (Auto) Lymph % (Auto) [place] % (Auto) Eos % (Auto) Baso % (Auto) Neut # Lymph # [place] # Eos # Baso # Sodium 136 Potassium 3.7 Chloride 107 Carbon Dioxide 21 L Anion Gap 12 BUN 23 H Creatinine 1.8 H Est GFR ( Amer) 41 Est GFR (Non-Af Amer) 34 POC Glucose (mg/dL) 285 H 222 H Random Glucose 195 H Calcium 7.5 L Phosphorus Magnesium % Saturation Transferrin Ferritin Total Bilirubin AST ALT Alkaline Phosphatase Total Protein Albumin Globulin Albumin/Globulin Ratio 10/17/16 10/18/16 10/18/16 21:08 00:00 06:03 WBC RBC Hgb Hct MCV MCH MCHC RDW Plt Count MPV Neut % (Auto) Lymph % (Auto) [place] % (Auto) Eos % (Auto) Baso % (Auto) Neut # Lymph # [place] # Eos # Baso # Sodium Potassium Chloride Carbon Dioxide Anion Gap BUN Creatinine Est GFR ( Amer) Est GFR (Non-Af Amer) POC Glucose (mg/dL) 292 H 272 H 185 H Random Glucose Calcium Phosphorus Magnesium % Saturation Transferrin Ferritin Total Bilirubin AST ALT Alkaline Phosphatase Total Protein Albumin Globulin Albumin/Globulin Ratio 10/18/16 10/18/16 10/18/16 06:46 06:46 06:46 WBC 10.5 RBC 3.22 L Hgb 9.1 L Hct 27.9 L MCV 86.8 MCH 28.3 MCHC 32.6 L RDW 14.6 H Plt Count 330 MPV 9.5 Neut % (Auto) 79.2 H Lymph % (Auto) 15.6 L [place] % (Auto) 4.6 Eos % (Auto) 0.0 Baso % (Auto) 0.6 Neut # 8.3 H Lymph # 1.6 [place] # 0.5 Eos # 0.0 Baso # 0.1 Sodium 134 Potassium 3.3 L Chloride 106 Carbon Dioxide 21 L Anion Gap 10 BUN 18 H Creatinine 1.8 H Est GFR ( Amer) 41 Est GFR (Non-Af Amer) 34 POC Glucose (mg/dL) Random Glucose 184 H Calcium 8.0 L Phosphorus 2.7 Magnesium 2.0 % Saturation 37 Transferrin Ferritin Total Bilirubin 0.3 AST 19 ALT 25 Alkaline Phosphatase 103 Total Protein 5.1 L Albumin 2.2 L Globulin 2.9 Albumin/Globulin Ratio 0.8 L 10/18/16 10/18/16 06:46 06:46 WBC RBC Hgb Hct MCV MCH MCHC RDW Plt Count MPV Neut % (Auto) Lymph % (Auto) [place] % (Auto) Eos % (Auto) Baso % (Auto) Neut # Lymph # [place] # Eos # Baso # Sodium Potassium Chloride Carbon Dioxide Anion Gap BUN Creatinine Est GFR ( Amer) Est GFR (Non-Af Amer) POC Glucose (mg/dL) Random Glucose Calcium Phosphorus Magnesium % Saturation Transferrin 123.00 L Ferritin 114.0 Total Bilirubin AST ALT Alkaline Phosphatase Total Protein Albumin Globulin Albumin/Globulin Ratio Fingerstick Blood Sugar Results: 272 Critical Care Progress Note - Nutrition Nutrition: Nutrition Category Date Time Status NPO Diet [DIET] Diets 10/18/16 Breakfast Active Assessment/Plan - Assessment and Plan (Free Text) Assessment: 26 female with a history of hypertension. Repeat a seizure activities On multiple antihypertensives. Currently controlled well. Stable at this time. Blood pressure is controlled. We'll continue the current management. 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 DVT GI prophylaxis. Out of bed to chair.
[2016-10-18] MEDS: levETIRAcetam 500 MG in Sodium Chloride 0.9% 100 ML IVPB SCH ×2 (10:32→21:29)
[2016-10-18] MEDS ORDERED: Pantoprazole 40 mg EC Tab PO ONE (18:22)
[2016-10-18] MEDS: (Lantus) Insulin Glargine, Recombinant SC SCH ×2 (21:30→22:45)
[2016-10-19] MEDS: (Novolog) Insulin Aspart, Recombinant 100 u/ml 10 ml vial SC SCH ×5 (00:48→18:00)
[2016-10-19] MEDS: Sodium Chloride 0.9% 1,000 ML IV SCH (03:04)
--- NOTE | 2016-10-19 08:34 | CP.CCUPN ---
CCU Subjective - Physician Review Events Since Last Encounter (Free Text): 10/19/16 08:34 Patient today is awake and responding. Today the blood pressure is elevated. Nausea still noted. Abdominal pain mild noted CCU Objective - Vital Signs / Intake & Output Vital Signs (Last 4 hours): Vital Signs Pulse Resp BP Pulse Ox 10/19/16 07:00 89 10 L 100 10/19/16 06:43 171/96 H 10/19/16 06:22 102 H 18 142/91 H 100 10/19/16 06:00 92 H 20 10/19/16 05:43 99 H 17 182/113 H 100 10/19/16 05:00 72 16 100 10/19/16 04:43 151/102 H Intake and Output (Last 8hrs): Intake & Output 10/18/16 10/19/16 10/19/16 22:59 06:59 14:59 Intake Total 550 790 50 Output Total 650 750 Balance -100 40 50 Weight 142 lb 9.6 oz Intake: Intake, IV Amount 400 400 50 Left External Jugular 400 400 50 Oral 150 390 0 Output: Urine 650 750 Urine, Voided 650 750 Other: # Voids Urine, Voided 1 0 0 # Bowel Movements 0 0 0 - Physical Exam Narrative Physical Exam (Free Text): 10/19/16 08:34 Vital signs reviewed No neck vein distention noted Chest good air entry bilaterally, no wheezing or rales noted CVS regular heart sound, no murmur noted Abdomen soft, nontender. Extremities no pedal edema [employer] alert awake oriented 3, no functional neurological deficit Head: Positive for: Atraumatic, Normocephalic. Negative for: Tenderness, Contusion, Swelling Pupils: Positive for: PERRL. Negative for: Sluggish, Non-Reactive Extroacular Muscles: Positive for: EOMI. Negative for: Gaze Palsy, Entrapment Conjunctiva: Positive for: Normal. Negative for: Injected, Icteric Mouth: Positive for: Moist Mucous Membranes Pharnyx: Positive for: Normal. Negative for: ERYTHEMA, EXUDATE Nose (Internal): Positive for: Normal Inspection Neck: Positive for: Normal Range of Motion, Trachea Midline. Negative for: Meningeal Signs, MIDLINE TENDERNESS, Paraspinal Tenderness, JVD, Lymphadenopathy , Bruit, Other Respiratory/Chest: Positive for: Clear to Auscultation, Good Air Exchange. Negative for: Respiratory Distress, Accessory Muscle Use, Wheezes, Decreased Breath Sounds, Rales, Retracting, Rhonchi Cardiovascular: Positive for: Normal S1, S2, Peripheal Pulses Present, Tachycardic. Negative for: Regular Rate and Rhythm, Murmurs, Irregular Rhythm, Bradycardic Abdomen: Positive for: Tenderness (diffuse to slight palpation), Normal Bowel Sounds. Negative for: Distention, Peritoneal Signs Upper Extremity: Positive for: Normal Inspection, NORMAL PULSES, Capillary Refill < 2s. Negative for: Cyanosis, Edema Lower Extremity: Positive for: Normal Inspection, NORMAL PULSES, Capillary Refill < 2 s. Negative for: Edema, CALF TENDERNESS Neurological: Positive for: GCS=15, CN II-XII Intact, Speech Normal, Motor Func Grossly Intact, Normal Sensory Function Skin: Positive for: Warm, Dry, Normal Color Psychiatric: Positive for: Alert, Oriented x 3, Anxious, Agitated - Medications Active Medications: Active Medications Generic Name Dose Route Start Last Admin Trade Name Freq PRN Reason Stop Dose Admin Acetaminophen 650 mg 10/16/16 14:08 Tylenol 325mg Tab PO BID PRN Fever >100.4 F Cyanocobalamin 1,000 mcg 10/19/16 10:00 Vitamin B12 1000 Mcg Tab PO DAILY KELVIN Diphenhydramine HCl 25 mg 10/17/16 10:52 Benadryl PO Q6 PRN Agitation Diphenhydramine HCl 25 mg 10/17/16 14:48 Benadryl IVP Q8H PRN Agitation Ferrous Sulfate 325 mg 10/16/16 18:00 10/19/16 08:15 Feosol PO Not Given BID [facility] Heparin Sodium (Porcine) 5,000 units 10/16/16 22:00 10/18/16 21:30 Heparin SC 5,000 units Q12 KELVIN Administration Levetiracetam 500 mg/ Sodium 105 mls @ 420 mls/hr 10/17/16 10:00 10/18/16 21: 29 Chloride IVPB 420 mls/hr Q12H KELVIN Administration Insulin Aspart 0 unit 10/17/16 18:00 10/19/16 08:16 Novolog SC Not Given Q6 [facility] Protocol Insulin Glargine 12 unit 10/18/16 21:59 10/18/16 22:45 Lantus SC 4 units HS KELVIN Administration Lisinopril 10 mg 10/18/16 10:00 10/18/16 10:28 Zestril PO 10 mg DAILY KELVIN Administration Lorazepam 1 mg 10/17/16 15:43 10/18/16 03:22 Ativan IVP 1 mg Q4H PRN Administration Anxiety Metoprolol Tartrate 50 mg 10/18/16 10:00 10/19/16 08:15 Lopressor PO Not Given BID KELVIN Ondansetron HCl 4 mg 10/17/16 08:34 10/18/16 23:56 Zofran Inj IVP 4 mg Q6H PRN Administration Nausea/Vomiting Pantoprazole Sodium 40 mg 10/19/16 10:00 Protonix Ec Tab PO DAILY KELVIN Thiamine HCl 100 mg 10/19/16 10:00 Vitamin B1 Tab PO DAILY KELVIN - Patient Studies Lab Studies: Lab Studies 10/19/16 10/18/16 10/18/16 Range/Units 06:58 23:59 17:46 POC Glucose (mg/dL) 83 111 H 162 H (65-110) mg/dL 10/18/16 Range/Units 11:18 POC Glucose (mg/dL) 309 H (65-110) mg/dL Laboratory Results - last 24 hr 10/18/16 10/18/16 10/18/16 11:18 17:46 23:59 POC Glucose (mg/dL) 309 H 162 H 111 H 10/19/16 06:58 POC Glucose (mg/dL) 83 Fingerstick Blood Sugar Results: 111 Critical Care Progress Note - Nutrition Nutrition: Nutrition Category Date Time Status Liquid Diet [DIET] Diets 10/18/16 Breakfast Active Assessment/Plan - Assessment and Plan (Free Text) Assessment: 26-year-old female with history of seizure disorder, asthma admitted to the hospital with the recurrent episodes of seizure activities. Clinical stable at this time. We'll control the blood pressure. Stable now. Transfer the patient to the regular medical floor
[2016-10-19 09:06] LABS: BASO # 0.1 K/uL (0.0-0.2); BASO % 0.9 % (0.0-2.0); EOS # 0.1 K/uL (0.0-0.7); EOS % 1.3 % (0.0-4.0); HEMOGLOBIN 10.2 g/dL (11.0-16.0); LYMPH # 2.4 K/uL (1.0-4.3); LYMPH % 42.5 % (20.0-40.0); MEAN CORPUSCULAR HEMOGLOBIN 27.6 pg (27.0-31.0); MEAN PLATELET VOLUME 8.9 fL (7.2-11.7); MONO # 0.5 K/uL (0.0-0.8); MONO % 8.3 % (0.0-10.0); NEUT # 2.7 K/uL (1.8-7.0); RBC 3.71 Mil/uL (3.80-5.20); RED CELL DISTRIBUTION WIDTH 14.3 % (11.5-14.5); WHITE BLOOD COUNT 5.7 K/uL (4.8-10.8)
[2016-10-19 09:09] LABS: ALBUMIN 2.4 g/dL (3.5-5.0)
[2016-10-19 09:11] LABS: ALB/GLOB RATIO 0.8 (1.0-2.1)
--- NOTE | 2016-10-19 09:11 | CP.PCM.PN ---
Subjective - Date & Time of Evaluation Date of Evaluation: 10/19/16 Time of Evaluation: 09:00 - Subjective Subjective: Patient is pending transfer to medical floors later today. She is currently in the ICU after having seizures. Overnight did ok, required Ativan PRN. Currently on Keprra IV On exam she was drowsy however after some conversation she managed to be more awake, alert, laughing. Per my discussion with RN her BP can be high and usually secondary if she has pain or anxiety or agitation. Patient explains that for 1 year now has been having seizures - she thinks from stress/anxiety/ or pain. She reports she does not see a neurologist outpatient. She says she has some mild tenderness in the upper quadrants. She has not tried eating yet. No BMs this AM or yesterday. Reports flatulence. Urination ok. Minimal headache. Has blurry vision, normally needs glasses and also history of uncontrolled DM making vision worse. Objective - Vital Signs/Intake and Output Vital Signs (last 24 hours): Temp Pulse Resp BP Pulse Ox 98.9 F 89 10 L 171/96 H 100 10/19/16 04:00 10/19/16 07:00 10/19/16 07:00 10/19/16 06:43 10/19/16 07:00 Intake and Output: 10/19/16 10/19/16 06:59 18:59 Intake Total 1340 50 Output Total 1400 Balance -60 50 - Medications Medications: Current Medications Acetaminophen (Tylenol 325mg Tab) 650 mg PO BID PRN PRN Reason: Fever >100.4 F Cyanocobalamin (Vitamin B12 1000 Mcg Tab) 1,000 mcg PO DAILY [facility] Diphenhydramine HCl (Benadryl) 25 mg PO Q6 PRN PRN Reason: Agitation Diphenhydramine HCl (Benadryl) 25 mg IVP Q8H PRN PRN Reason: Agitation Ferrous Sulfate (Feosol) 325 mg PO BID [facility] Last Admin: 10/19/16 08:15 Dose: Not Given Heparin Sodium (Porcine) (Heparin) 5,000 units SC Q12 [facility] Last Admin: 10/18/16 21:30 Dose: 5,000 units Levetiracetam 500 mg/ Sodium (Chloride) 105 mls @ 420 mls/hr IVPB Q12H [facility] Last Admin: 10/18/16 21:29 Dose: 420 mls/hr Insulin Aspart (Novolog) 0 unit SC Q6 [facility] PRN Reason: Protocol Last Admin: 10/19/16 08:16 Dose: Not Given Insulin Glargine (Lantus) 12 unit SC HS [facility] Last Admin: 10/18/16 22:45 Dose: 4 units Lisinopril (Zestril) 10 mg PO DAILY [facility] Last Admin: 10/18/16 10:28 Dose: 10 mg Lorazepam (Ativan) 1 mg IVP Q4H PRN PRN Reason: Anxiety Last Admin: 10/18/16 03:22 Dose: 1 mg Metoprolol Tartrate (Lopressor) 50 mg PO BID [facility] Last Admin: 10/19/16 08:15 Dose: Not Given Ondansetron HCl (Zofran Inj) 4 mg IVP Q6H PRN PRN Reason: Nausea/Vomiting Last Admin: 10/18/16 23:56 Dose: 4 mg Pantoprazole Sodium (Protonix Ec Tab) 40 mg PO DAILY [facility] Thiamine HCl (Vitamin B1 Tab) 100 mg PO DAILY [facility] - Labs Labs: 10/18/16 06:46 10/18/16 06:46 APTT 27 SECONDS (21-34) 10/17/16 06:22 - Constitutional Appears: Well, No Acute Distress - Head Exam Head Exam: NORMAL INSPECTION, NORMOCEPHALIC - Eye Exam Eye Exam: EOMI, Normal appearance - ENT Exam ENT Exam: Mucous Membranes Moist - Respiratory Exam Respiratory Exam: Clear to Ausculation Bilateral, NORMAL BREATHING PATTERN - Cardiovascular Exam Cardiovascular Exam: REGULAR RHYTHM - GI/Abdominal Exam GI & Abdominal Exam: Soft, Tenderness, Normal Bowel Sounds. absent: Distended, Firm, Guarding, Rigid - Neurological Exam Neurological Exam: Alert, Awake, CN II-XII Intact, Oriented x3 Neuro motor strength exam: Left Upper Extremity: 5, Right Upper Extremity: 5, Left Lower Extremity: 5, Right Lower Extremity: 5 - Psychiatric Exam Psychiatric exam: Depressed, Flat Affect - Skin Skin Exam: Normal Color, Warm Assessment and Plan - Assessment and Plan (Free Text) Assessment: Seizures: 7/: CT scan was negative. Currently on IV Keppra BID, also ativan PRN for breakthrough. Patient appears well today, talking, AAO x3. For transfer to medical floor HTN On Norvasc and Lopressor and Lisinopril Systolic BPs have been mostly in the 140s, however sometimes in 170s. Maybe go high due to stress or anxiety, continue to monitor DM - Out of control - Better now on insulin Accuckes 80s to 110s but she has not tried eating today Currently on SSI Lantus 12 QHS Accuchecks
[2016-10-19 09:12] LABS: CALCIUM 8.2 mg/dl (8.6-10.4); MAGNESIUM 1.9 mg/dL (1.6-2.3)
[2016-10-19 09:28] LABS: IRON 75 ug/dL (37-170)
[2016-10-19] MEDS: Pantoprazole 40 mg EC Tab PO SCH (09:28)
[2016-10-19 09:38] LABS: % IRON SATURATION 42 (20-55); TOTAL IRON BINDING CAPACITY 177 ug/dL (250-450)
[2016-10-19] MEDS: levETIRAcetam 500 MG in Sodium Chloride 0.9% 100 ML IVPB SCH ×2 (10:28→22:10)
[2016-10-19] MEDS: (Lantus) Insulin Glargine, Recombinant SC SCH (22:00)
[2016-10-20] MEDS: (Novolog) Insulin Aspart, Recombinant 100 u/ml 10 ml vial SC SCH ×4 (06:00→21:54)
[2016-10-20 06:54] LABS: ALBUMIN 1.9 g/dL (3.5-5.0)
[2016-10-20 06:57] LABS: ALB/GLOB RATIO 0.8 (1.0-2.1)
[2016-10-20 06:58] LABS: CALCIUM 7.4 mg/dl (8.6-10.4); MAGNESIUM 1.6 mg/dL (1.6-2.3)
[2016-10-20 07:04] LABS: BASO # 0.1 K/uL (0.0-0.2); BASO % 1.1 % (0.0-2.0); EOS # 0.1 K/uL (0.0-0.7); EOS % 2.3 % (0.0-4.0); HEMOGLOBIN 8.8 g/dL (11.0-16.0); LYMPH # 2.5 K/uL (1.0-4.3); LYMPH % 43.5 % (20.0-40.0); MEAN CELL VOLUME 85.9 fL (81.0-99.0); MEAN CORPUSCULAR HEMOGLOBIN 28.4 pg (27.0-31.0); MEAN PLATELET VOLUME 9.7 fL (7.2-11.7); MONO # 0.5 K/uL (0.0-0.8); MONO % 8.2 % (0.0-10.0); NEUT # 2.6 K/uL (1.8-7.0); NEUT % 44.9 % (50.0-75.0); NRBC % 0.1 % (0.0-2.0); RBC 3.11 Mil/uL (3.80-5.20); RED CELL DISTRIBUTION WIDTH 13.9 % (11.5-14.5); WHITE BLOOD COUNT 5.7 K/uL (4.8-10.8)
[2016-10-20] MEDS ORDERED: Potassium Chloride 20 mEq ER Tab PO STA ×3 (09:02→15:42)
[2016-10-20] MEDS: Pantoprazole 40 mg EC Tab PO SCH (09:43)
[2016-10-20] MEDS: levETIRAcetam 500 MG in Sodium Chloride 0.9% 100 ML IVPB SCH ×2 (09:44→21:30)
[2016-10-20] MEDS ORDERED: (Novolog) Insulin Aspart, Recombinant 100 u/ml 10 ml vial SC SCH (16:30)
--- NOTE | 2016-10-20 17:01 | PCM.PSYCH ---
Initial Psychiatric Evaluation - Initial Psychiatric Evaluation Type of Admission: Voluntary Legal Status: Capacity Chief Complaint (in patient's own words): I was feeling depressed and nauseous History of Present Illness and Precipitating Events: This is a 26 years old HF who is currently unemployed with a history of depressive disorder was admitted on the medical floor because of nausea and vomiting. Today patient was consulted because of history of depression and anxiety. Patient reports of a long history of anxiety and depression. As per the patient she is feeling depressed for more than 2 years. However since past 2 months she is feeling increasingly nauseous. And she has been coming to the hospitals because of continuous nausea and vomiting. She reports of feeling increasingly depressed because of nausea and becoming increasingly anxious. Patient reports depressed mood, at times feelings of hopelessness and helplessness, poor sleep and poor appetite. Patient denies any auditory or visual hallucinations or any psychotic symptoms. She denies any suicidal ideation or homicidal ideation. Denies any manic symptoms. she reports of smoking marijuana and drinking couple of beers off and on but denies any substance abuse. Past medical history None reported Current Medications: Active Medications Generic Name Dose Route Start Last Admin Trade Name Freq PRN Reason Stop Dose Admin Acetaminophen 650 mg 10/16/16 14:08 10/19/16 09:30 Tylenol 325mg Tab PO 650 mg BID PRN Administration Fever >100.4 F Cyanocobalamin 1,000 mcg 10/19/16 10:00 10/20/16 09:43 Vitamin B12 1000 Mcg Tab PO 1,000 mcg DAILY KELVIN Administration Diphenhydramine HCl 25 mg 10/17/16 10:52 Benadryl PO Q6 PRN Agitation Diphenhydramine HCl 25 mg 10/17/16 14:48 Benadryl IVP Q8H PRN Agitation Ferrous Sulfate 325 mg 10/16/16 18:00 10/20/16 09:44 Feosol PO 325 mg BID KELVIN Administration Heparin Sodium (Porcine) 5,000 units 10/16/16 22:00 10/20/16 12:13 Heparin SC 5,000 units Q12 KELVIN Administration Levetiracetam 500 mg/ Sodium 105 mls @ 420 mls/hr 10/17/16 10:00 10/20/16 09: 44 Chloride IVPB 420 mls/hr Q12H KELVIN Administration Insulin Aspart 0 unit 10/20/16 16:30 10/20/16 16:26 Novolog SC 1 unit ACHS KELVIN Administration Protocol Insulin Glargine 12 unit 10/18/16 21:59 10/19/16 22:00 Lantus SC Not Given [facility] Lisinopril 10 mg 10/18/16 10:00 10/20/16 09:44 Zestril PO 10 mg DAILY KELVIN Administration Metoprolol Tartrate 50 mg 10/18/16 10:00 10/20/16 09:43 Lopressor PO 50 mg BID KELVIN Administration Ondansetron HCl 4 mg 10/17/16 08:34 10/20/16 09:53 Zofran Inj IVP 4 mg Q6H PRN Administration Nausea/Vomiting Pantoprazole Sodium 40 mg 10/19/16 10:00 10/20/16 09:43 Protonix Ec Tab PO 40 mg DAILY KELVIN Administration Thiamine HCl 100 mg 10/19/16 10:00 10/20/16 09:43 Vitamin B1 Tab PO 100 mg DAILY KELVIN Administration Past Psychiatric History - Past Psychiatric History Previous Treatment History: None Pertinent Medical Hx (Current Medical&Sleep Prob, Allergies): Allergies Allergy/AdvReac Type Severity Reaction Status Date / Time No Known Allergies Allergy Verified 10/16/16 08:24 Acetaminophen 2 tab PO BID PRN 10/16/16 Cyanocobalamin [Vitamin B12 1000 mcg Tab] 1,000 mcg PO DAILY 10/16/16 Ferrous Sulfate [Iron] 325 mg PO BID 10/16/16 Insulin Glargine, Recombina [Lantus] 8 unit SQ HS 10/16/16 Insulin Lispro [Humalog Kwikpen U-100] 5 unit SQ TID 10/16/16 Levetiracetam 3 tab PO BID 10/16/16 Lisinopril [Zestril] 20 mg PO DAILY 10/16/16 Ondansetron ODT [Zofran ODT] 4 mg PO Q6H PRN 10/16/16 amLODIPine [Norvasc] 10 mg PO DAILY 10/16/16 Review of Systems - Review of Systems All systems: reviewed and no additional remarkable complaints except - Psychiatric Psychiatric: Anxiety, Depression, Irritability. absent: Suicidal Ideation Mental Status Examination - Personal Presentation Personal Presentation: Looks stated age - Affect Affect: Constricted, Depressed - Motor Activity Motor Activity: Calm - Reliability in Providing Information Reliability in Providing Information: Poor, due to altered mood - Speech Speech: Organized - Mood Mood: Depressed, Anxious - Formal Thought Process Formal Thought Process: No Impairment - Obsessions/Compulsions Obsessions: No Compulsions: No - Cognitive Functions Orientation: Person, Place, Situation, Time Sensorium: Alert Attention/Concentration: Attentive Abstract Thinking: [place] Estimate of Intelligence: Below average Judgement: Imparied, as evidence by: Poor judgement, Imparied, as evidence by: Lack of insight into illness - Risk Risk: Diminished functioning - Strength & Assets Inventory Strength & Assets Inventory: Cooperative DSM 5 DX - DSM 5 DSM 5 Diagnosis: Major depressive disorder recurrent moderate Gen. anxiety disorder - Recommended/Plan of Treatment Treatment Recommendations and Plan of Treatment: Major depressive disorder recurrent moderate CBT Psychoeducation Zoloft 50 mg daily Trazodone 50 mg by mouth daily at bedtime Gen. anxiety disorder CBT Psychoeducation Atarax 25 mg by mouth every 6 hours when necessary
--- NOTE | 2016-10-20 17:25 | CP.PCM.PN ---
<PhongdeltaMia - Last Filed: 10/20/16 17:20> Subjective - Date & Time of Evaluation Date of Evaluation: 10/20/16 Time of Evaluation: 17:20 - Subjective Subjective: Hospitalists progress note by PGY2 (covering for Dr. Cueva) Pt is seen and examined at bedside. No acute events over night. No seizure overnight but patient did receive 1 dose of ativan overnight. Patient c/o of nausea and epigastric abd pain. Denies having any CP, SOB, D/C, dysuria. Patient is tolerating diet and would like her diet advanced. 12 point ROS are negative except for the above mentioned. Objective - Vital Signs/Intake and Output Vital Signs (last 24 hours): Temp Pulse Resp BP Pulse Ox 98.6 F 75 16 159/107 H 98 10/20/16 16:00 10/20/16 16:00 10/20/16 16:00 10/20/16 16:00 10/20/16 16:00 Intake and Output: 10/20/16 10/20/16 06:59 18:59 Intake Total 720 360 Output Total 2200 0 Balance -1480 360 - Medications Medications: Current Medications Acetaminophen (Tylenol 325mg Tab) 650 mg PO BID PRN PRN Reason: Fever >100.4 F Last Admin: 10/19/16 09:30 Dose: 650 mg Cyanocobalamin (Vitamin B12 1000 Mcg Tab) 1,000 mcg PO DAILY [facility] Last Admin: 10/20/16 09:43 Dose: 1,000 mcg Diphenhydramine HCl (Benadryl) 25 mg PO Q6 PRN PRN Reason: Agitation Diphenhydramine HCl (Benadryl) 25 mg IVP Q8H PRN PRN Reason: Agitation Ferrous Sulfate (Feosol) 325 mg PO BID [facility] Last Admin: 10/20/16 09:44 Dose: 325 mg Heparin Sodium (Porcine) (Heparin) 5,000 units SC Q12 [facility] Last Admin: 10/20/16 12:13 Dose: 5,000 units Levetiracetam 500 mg/ Sodium (Chloride) 105 mls @ 420 mls/hr IVPB Q12H [facility] Last Admin: 10/20/16 09:44 Dose: 420 mls/hr Insulin Aspart (Novolog) 0 unit SC ACHS KEL[facility]IN PRN Reason: Protocol Last Admin: 10/20/16 16:26 Dose: 1 unit Insulin Glargine (Lantus) 12 unit SC HS [facility] Last Admin: 10/19/16 22:00 Dose: Not Given Lisinopril (Zestril) 10 mg PO DAILY [facility] Last Admin: 10/20/16 09:44 Dose: 10 mg Metoprolol Tartrate (Lopressor) 50 mg PO BID [facility] Last Admin: 10/20/16 09:43 Dose: 50 mg Ondansetron HCl (Zofran Inj) 4 mg IVP Q6H PRN PRN Reason: Nausea/Vomiting Last Admin: 10/20/16 09:53 Dose: 4 mg Pantoprazole Sodium (Protonix Ec Tab) 40 mg PO DAILY [facility] Last Admin: 10/20/16 09:43 Dose: 40 mg Thiamine HCl (Vitamin B1 Tab) 100 mg PO DAILY [facility] Last Admin: 10/20/16 09:43 Dose: 100 mg - Labs Labs: 10/20/16 06:33 10/20/16 06:33 APTT 27 SECONDS (21-34) 10/17/16 06:22 - Constitutional Appears: Non-toxic, No Acute Distress - Head Exam Head Exam: ATRAUMATIC - ENT Exam ENT Exam: Mucous Membranes Moist - Respiratory Exam Respiratory Exam: Clear to Ausculation Bilateral. absent: Accessory Muscle Use , Rales, Rhonchi, Wheezes, Respiratory Distress - Cardiovascular Exam Cardiovascular Exam: REGULAR RHYTHM, +S1, +S2. absent: Gallop, Rubs, Murmur - GI/Abdominal Exam GI & Abdominal Exam: Soft, Tenderness (epigastric region ), Normal Bowel Sounds. absent: Distended, Firm, Guarding, Rigid, Organomegaly - Extremities Exam Extremities Exam: absent: Pedal Edema, Tenderness - Neurological Exam Neurological Exam: Alert, Awake, Oriented x3 - Psychiatric Exam Psychiatric exam: Normal Affect, Normal Mood - Skin Skin Exam: Dry, Intact, Normal Color, Warm Assessment and Plan - Assessment and Plan (Free Text) Assessment: Assessment: Seizures: 10/19: CT scan was negative. Currently on IV Keppra 1000 mg BID, also ativan PRN for breakthrough. Neuro consulted and adjusted keppra dose and blood sugar control Patient appears well today, talking, AAO x3. For transfer to medical floor seizure precaution HTN On Norvasc and Lopressor and Lisinopril Systolic BPs have been mostly in the 140s, however sometimes in 170s. Maybe go high due to stress or anxiety, continue to monitor DM - Out of control - Better now on insulin Currently on SSI medium Lantus 12 [address] abd/pelvis showed moderate diffuse constipation and prominent B/L ovaries. Will do pelvic US for prominent ovaries Advance diet as tolerated Protonix 40 mg qd Anemia Continue iron supplements Case discussed with attending, Dr. Wise <Dmitriy Wise - Last Filed: 10/21/16 09:46> Objective - Vital Signs/Intake and Output Vital Signs (last 24 hours): Temp Pulse Resp BP Pulse Ox 98.5 F 76 20 163/99 H 99 10/21/16 07:54 10/21/16 07:54 10/21/16 07:54 10/21/16 07:54 10/21/16 07:54 Intake and Output: 10/21/16 10/21/16 06:59 18:59 Intake Total 940 Balance 940 - Medications Medications: Current Medications Acetaminophen (Tylenol 325mg Tab) 650 mg PO BID PRN PRN Reason: Fever >100.4 F Last Admin: 10/19/16 09:30 Dose: 650 mg Cyanocobalamin (Vitamin B12 1000 Mcg Tab) 1,000 mcg PO DAILY [facility] Last Admin: 10/20/16 09:43 Dose: 1,000 mcg Diphenhydramine HCl (Benadryl) 25 mg PO Q6 PRN PRN Reason: Agitation Last Admin: 10/21/16 02:17 Dose: 25 mg Diphenhydramine HCl (Benadryl) 25 mg IVP Q8H PRN PRN Reason: Agitation Ferrous Sulfate (Feosol) 325 mg PO BID [facility] Last Admin: 10/21/16 09:26 Dose: 325 mg Heparin Sodium (Porcine) (Heparin) 5,000 units SC Q12 [facility] Last Admin: 10/21/16 09:26 Dose: 5,000 units Levetiracetam 500 mg/ Sodium (Chloride) 105 mls @ 420 mls/hr IVPB Q12H [facility] Last Admin: 10/20/16 21:30 Dose: 420 mls/hr Insulin Aspart (Novolog) 0 unit SC ACHS KELVIN PRN Reason: Protocol Last Admin: 10/21/16 09:25 Dose: 2 unit Insulin Glargine (Lantus) 12 unit SC [facility] Last Admin: 10/20/16 21:30 Dose: 12 units Lisinopril (Zestril) 10 mg PO DAILY [facility] Last Admin: 10/21/16 09:26 Dose: 10 mg Metoprolol Tartrate (Lopressor) 50 mg PO BID [facility] Last Admin: 10/21/16 09:30 Dose: 50 mg Ondansetron HCl (Zofran Inj) 4 mg IVP Q6H PRN PRN Reason: Nausea/Vomiting Last Admin: 10/20/16 09:53 Dose: 4 mg Pantoprazole Sodium (Protonix Ec Tab) 40 mg PO DAILY [facility] Last Admin: 10/21/16 09:26 Dose: 40 mg Sertraline HCl (Zoloft) 50 mg PO DAILY [facility] Last Admin: 10/21/16 09:26 Dose: 50 mg Thiamine HCl (Vitamin B1 Tab) 100 mg PO DAILY [facility] Last Admin: 10/21/16 09:26 Dose: 100 mg Trazodone HCl (Desyrel) 50 mg PO [facility] Last Admin: 10/20/16 22:13 Dose: 50 mg - Labs Labs: 10/21/16 08:13 10/21/16 08:13 APTT 27 SECONDS (21-34) 10/17/16 06:22 Attending/Attestation - Attestation I have personally seen and examined this patient.: Yes I have fully participated in the care of the patient.: Yes I have reviewed all pertinent clinical information, including history, physical exam and plan: Yes Notes (Text): 10/21/16 09:45 Patient was seen and examined at bedside with the resident. She stated that she is feeling slightly better and wants to advance her diet We will advance diet as tolerated. Continue current management with the antiseizure medication and insulin. I discussed the plan of care with the resident I agree with the history and physical and assessment/plan documented.
[2016-10-20] MEDS: (Lantus) Insulin Glargine, Recombinant SC SCH (21:30)
[2016-10-21 08:25] LABS: BASO # 0.1 K/uL (0.0-0.2); BASO % 1.4 % (0.0-2.0); EOS # 0.2 K/uL (0.0-0.7); EOS % 3.3 % (0.0-4.0); LYMPH # 4.1 K/uL (1.0-4.3); LYMPH % 53.3 % (20.0-40.0); MEAN CELL VOLUME 85.1 fL (81.0-99.0); MEAN CORPUSCULAR HEMOGLOBIN 27.8 pg (27.0-31.0); MEAN CORPUSCULAR HGB CONC 32.7 g/dL (33.0-37.0); MEAN PLATELET VOLUME 10.3 fL (7.2-11.7); MONO # 0.5 K/uL (0.0-0.8); MONO % 6.3 % (0.0-10.0); NEUT # 2.7 K/uL (1.8-7.0); NEUT % 35.7 % (50.0-75.0); RBC 3.25 Mil/uL (3.80-5.20); RED CELL DISTRIBUTION WIDTH 14.2 % (11.5-14.5); WHITE BLOOD COUNT 7.6 K/uL (4.8-10.8)
[2016-10-21 08:56] LABS: ALBUMIN 1.9 g/dL (3.5-5.0)
[2016-10-21 08:59] LABS: ALB/GLOB RATIO 0.8 (1.0-2.1); CALCIUM 7.7 mg/dl (8.6-10.4); MAGNESIUM 1.7 mg/dL (1.6-2.3)
[2016-10-21] MEDS: (Novolog) Insulin Aspart, Recombinant 100 u/ml 10 ml vial SC SCH ×5 (09:25→22:51)
[2016-10-21] MEDS: Pantoprazole 40 mg EC Tab PO SCH (09:26)
[2016-10-21] MEDS: levETIRAcetam 500 MG in Sodium Chloride 0.9% 100 ML IVPB SCH ×2 (11:29→22:00)
[2016-10-21] MEDS ORDERED: Potassium Chloride 20 mEq ER Tab PO STA (12:59)
--- NOTE | 2016-10-21 13:49 | US ---
HISTORY: B/L prominent ovaries seen on CT COMPARISON: None available. TECHNIQUE: Transabdominal sonographic evaluation of the pelvis performed. Correlation made with CT scan abdomen pelvis 10/16/2016. Note that patient refused transvaginal sonographic evaluation FINDINGS: UTERUS: Uterus is anteverted measuring approximately 5.0 x 2.9 x 3.5 cm. . No evidence of myometrial masses or fibroids. ENDOMETRIUM: Endometrial stripe is prominent at 17 mm. This could be due to secretary bookkeeper phase of the endometrial cycle on. Followup pelvic transvaginal sonographic evaluation in 6 weeks recommended to assess for adventist of normal endometrial thickness and exclude endometrial pathology which would include a endometrial. Hyperplasia or endometrial polyps. Endometrial carcinoma would be less likely in this age group but not completely excluded. CERVIX: No cervical abnormality identified. RIGHT OVARY: Measures approximately 4.3 x 2.0 x 3.7 cm. No solid mass. Normal flow. Transvaginal sonography would better evaluate ovarian size and echotexture LEFT OVARY: Measures approximately 3.8 x 1.6 x 2.9 cm. No solid mass. Normal flow. Transvaginal sonographic evaluation with better evaluate ovarian size and echotexture FREE FLUID: No significant free fluid noted. OTHER FINDINGS: None. IMPRESSION: This is a limited transabdominal pelvic ultrasound. Note that patient refused transvaginal sonography. Prominent endometrium which could be due to secretary bookkeeper phase of the endometrial cycle. Recommend transvaginal sonographic evaluation 6 weeks to assess for adventist of normal endometrial thickness and exclude endometrial pathology as detailed above. No ovarian masses so far as can be seen on this limited transabdominal exam. Note that transvaginal sonography would better evaluate of air in size and echotexture
--- NOTE | 2016-10-21 14:11 | CP.PCM.PN ---
<Hanane Presley - Last Filed: 10/21/16 14:44> Subjective - Date & Time of Evaluation Date of Evaluation: 10/21/16 Time of Evaluation: 14:10 - Subjective Subjective: Medicine Progress Note- Dr. Wise Service Patient was seen at bedside in no acute distress. She reports feeling nausea, tired, and has a headache. Patient also reports having watery bowel movements yesterday. Patient denies vomting, constipation, chest pain, abdominal pain, and dizziness. Patient is able to ambulate. Objective - Vital Signs/Intake and Output Vital Signs (last 24 hours): Temp Pulse Resp BP Pulse Ox 98.5 F 76 20 163/99 H 99 10/21/16 07:54 10/21/16 07:54 10/21/16 07:54 10/21/16 07:54 10/21/16 07:54 Intake and Output: 10/21/16 10/21/16 06:59 18:59 Intake Total 940 Balance 940 - Medications Medications: Current Medications Acetaminophen (Tylenol 325mg Tab) 650 mg PO BID PRN PRN Reason: Fever >100.4 F Last Admin: 10/19/16 09:30 Dose: 650 mg Cyanocobalamin (Vitamin B12 1000 Mcg Tab) 1,000 mcg PO DAILY [facility] Last Admin: 10/21/16 13:36 Dose: 1,000 mcg Diphenhydramine HCl (Benadryl) 25 mg PO Q6 PRN PRN Reason: Agitation Last Admin: 10/21/16 02:17 Dose: 25 mg Diphenhydramine HCl (Benadryl) 25 mg IVP Q8H PRN PRN Reason: Agitation Ferrous Sulfate (Feosol) 325 mg PO BID [facility] Last Admin: 10/21/16 09:26 Dose: 325 mg Heparin Sodium (Porcine) (Heparin) 5,000 units SC Q12 [facility] Last Admin: 10/21/16 09:26 Dose: 5,000 units Levetiracetam 500 mg/ Sodium (Chloride) 105 mls @ 420 mls/hr IVPB Q12H [facility] Last Admin: 10/21/16 11:29 Dose: 420 mls/hr Insulin Aspart (Novolog) 0 unit SC ACHS [facility]IN PRN Reason: Protocol Last Admin: 10/21/16 12:41 Dose: Not Given Insulin Glargine (Lantus) 12 unit SC [facility] Last Admin: 10/20/16 21:30 Dose: 12 units Lisinopril (Zestril) 10 mg PO DAILY [facility] Last Admin: 10/21/16 09:26 Dose: 10 mg Metoprolol Tartrate (Lopressor) 50 mg PO BID [facility] Last Admin: 10/21/16 09:30 Dose: 50 mg Ondansetron HCl (Zofran Inj) 4 mg IVP Q6H PRN PRN Reason: Nausea/Vomiting Last Admin: 10/20/16 09:53 Dose: 4 mg Pantoprazole Sodium (Protonix Ec Tab) 40 mg PO DAILY [facility] Last Admin: 10/21/16 09:26 Dose: 40 mg Sertraline HCl (Zoloft) 50 mg PO DAILY [facility] Last Admin: 10/21/16 09:26 Dose: 50 mg Thiamine HCl (Vitamin B1 Tab) 100 mg PO DAILY [facility] Last Admin: 10/21/16 09:26 Dose: 100 mg Trazodone HCl (Desyrel) 50 mg PO [facility] Last Admin: 10/20/16 22:13 Dose: 50 mg - Labs Labs: 10/21/16 08:13 10/21/16 08:13 APTT 27 SECONDS (21-34) 10/17/16 06:22 - Constitutional Appears: No Acute Distress - Head Exam Head Exam: NORMAL INSPECTION, NORMOCEPHALIC - Eye Exam Eye Exam: EOMI, Normal appearance - ENT Exam ENT Exam: Mucous Membranes Moist - Neck Exam Neck Exam: Full ROM, Normal Inspection - Respiratory Exam Respiratory Exam: Clear to Ausculation Bilateral, NORMAL BREATHING PATTERN. absent: Rhonchi, Wheezes - Cardiovascular Exam Cardiovascular Exam: REGULAR RHYTHM, +S1, +S2 - GI/Abdominal Exam GI & Abdominal Exam: Soft, Normal Bowel Sounds. absent: Tenderness - Extremities Exam Extremities Exam: absent: Calf Tenderness, Pedal Edema, Tenderness - Neurological Exam Neurological Exam: Alert, Awake, Oriented x3 - Psychiatric Exam Psychiatric exam: Normal Affect, Normal Mood - Skin Skin Exam: Dry, Intact, Normal Color, Warm Assessment and Plan (1) Uncontrolled diabetes mellitus Assessment & Plan: Currently on SSI medium Lantus 12 QHS Accuchecks A1c- ordered on 10/21/16 Monitor glucose; hypoglycemia at 52, has been in the 300s on 10/20/16 Status: Acute (2) Diabetic gastroparesis Assessment & Plan: CT abd/pelvis showed moderate diffuse constipation and prominent B/L ovaries. Pelvic US on 10/20/16: prominent endometrium, may be due to secretory phase of endometrial cycl; no ovarian masses an be seen. Advance diet as tolerated Protonix 40 mg PO daily Status: Acute (3) Seizure disorder Assessment & Plan: 10/19: CT scan was negative. Currently on IV Keppra 1000 mg BID, also ativan PRN for breakthrough. Neuro consulted and adjusted keppra dose and blood sugar control Patient appears well today, talking, AAO x3. Seizure precaution K+ 3.5 on 10/21/16, repleted with K+ 20mEq Status: Acute (4) HTN (hypertension) Assessment & Plan: On Norvasc and Lopressor Discontinued Lisinopril 10mg po daily Started Lisinopril 20mg PO daily BP on 10/21/16 is 163/99 Monitor Status: Acute (5) Anemia Assessment & Plan: Continue iron supplements Monitor H/H Status: Acute (6) Prophylactic measure Assessment & Plan: SCDs Heart Healthy Diet Heparin 5,000 units SC Q12 Protonic 40mg PO daily Activity ordered- as tolerated Status: Acute <Dmitriy Wise - Last Filed: 10/22/16 17:39> Objective - Vital Signs/Intake and Output Vital Signs (last 24 hours): Temp Pulse Resp BP Pulse Ox 98.2 F 105 H 20 150/90 99 10/22/16 16:00 10/22/16 16:00 10/22/16 16:00 10/22/16 16:13 10/22/16 16:00 Intake and Output: 10/22/16 10/22/16 06:59 18:59 Intake Total 490 750 Output Total 200 Balance 290 750 - Medications Medications: Current Medications Acetaminophen (Tylenol 325mg Tab) 650 mg PO Q6H PRN PRN Reason: Pain, Mild (1-3) Cyanocobalamin (Vitamin B12 1000 Mcg Tab) 1,000 mcg PO DAILY [facility] Last Admin: 10/22/16 14:46 Dose: Not Given Diphenhydramine HCl (Benadryl) 25 mg IVP Q8H PRN PRN Reason: Agitation Ferrous Sulfate (Feosol) 325 mg PO BID [facility] Last Admin: 10/22/16 09:32 Dose: 325 mg Heparin Sodium (Porcine) (Heparin) 5,000 units SC Q12 [facility] Last Admin: 10/22/16 09:30 Dose: 5,000 units Levetiracetam 500 mg/ Sodium (Chloride) 105 mls @ 420 mls/hr IVPB Q12H [facility] Last Admin: 10/22/16 11:43 Dose: Not Given Sodium Chloride (Sodium Chloride 0.9%) 1,000 mls @ 100 mls/hr IV .Q10H [facility] Last Admin: 10/22/16 11:29 Dose: 100 mls/hr Ceftriaxone Sodium 1 gm/ (Sodium Chloride) 100 mls @ 100 mls/hr IVPB DAILY [facility] Last Admin: 10/22/16 13:40 Dose: 100 mls/hr Insulin Aspart (Novolog) 0 unit SC ACHS [facility] PRN Reason: Protocol Last Admin: 10/22/16 12:16 Dose: 10 unit Insulin Glargine (Lantus) 12 unit SC HS [facility] Last Admin: 10/21/16 21:59 Dose: 12 units Lamotrigine (Lamictal) 25 mg PO BID [facility] Lisinopril (Zestril) 20 mg PO DAILY [facility] Last Admin: 10/22/16 09:33 Dose: 20 mg Lorazepam (Ativan) 1 mg IVP Q6H PRN PRN Reason: Seizure activity Last Admin: 10/22/16 13:52 Dose: 1 mg Metoclopramide HCl (Reglan) 5 mg IVP Q8H PRN PRN Reason: Nausea/Vomiting Last Admin: 10/22/16 13:45 Dose: 5 mg Metoprolol Tartrate (Lopressor) 50 mg PO BID [facility] Last Admin: 10/22/16 09:32 Dose: 50 mg Ondansetron HCl (Zofran Inj) 4 mg IVP Q6H PRN PRN Reason: Nausea/Vomiting Last Admin: 10/22/16 13:52 Dose: 4 mg Pantoprazole Sodium (Protonix Inj) 40 mg IVP DAILY [facility] Sertraline HCl (Zoloft) 50 mg PO DAILY [facility] Last Admin: 10/22/16 09:31 Dose: 50 mg Thiamine HCl (Vitamin B1 Tab) 100 mg PO DAILY [facility] Last Admin: 10/22/16 09:31 Dose: 100 mg Trazodone HCl (Desyrel) 50 mg PO HS [facility] Last Admin: 10/21/16 22:00 Dose: Not Given - Labs Labs: 10/22/16 08:39 10/22/16 08:39 APTT 27 SECONDS (21-34) 10/17/16 06:22 Attending/Attestation - Attestation I have personally seen and examined this patient.: Yes I have fully participated in the care of the patient.: Yes I have reviewed all pertinent clinical information, including history, physical exam and plan: Yes Notes (Text): 10/22/16 17:38 Patient seen and examined at bedside with the resident. Family is present at bedside. This is a late computer entry Patient is feeling better today No complaint of nausea or vomiting today No seizures reported today We will plan for discharge
[2016-10-21] MEDS: (Lantus) Insulin Glargine, Recombinant SC SCH (21:59)
--- NOTE | 2016-10-22 07:33 | PCM.RRTMUL ---
MANAGER INSPECTION Nurses Assessment - Situation MANAGER INSPECTION Called By: RN - Vital Signs Blood Pressure:: 158/89 Pulse Rate:: 81 Respiratory Rate:: 18 Temperature:: 98.7 F I.Reason for MANAGER INSPECTION - A) Acute Change in Patient: (Select all that apply): Staff member or family is worried about patient ( seizure) - A) Initial Vital Signs: Blood Pressure: 157/87 Pulse Rate: 105 Temperature: 97.6 F O2 Sat by Pulse Oximetry: 99 Finger Stick Blood Glucose: 301 - B) Neurological Status (Select all that apply): Disoriented, Confused, Lethargic - C) Respiratory Oxygen Delivery Method: Nasal Cannula @L/min - Constitutional Appears: In Acute Distress - Head Head Exam: ATRAUMATIC, NORMAL INSPECTION, NORMOCEPHALIC - Eyes Eye Exam: Normal appearance, PERRL - Respiratory Exam Respiratory Exam: Clear to Ausculation Bilateral, NORMAL BREATHING PATTERN. absent: Rales, Rhonchi, Wheezes, Stridor - Cardiovascular Exam Cardiovascular Exam: REGULAR RHYTHM, RRR. absent: Gallop, Rubs, Murmur - GI/Abdominal Exam GI & Abdominal Exam: Guarding, Soft, Normal Bowel Sounds - Neurological Exam Neurological Exam: Altered - Extremities Exam Extremities Exam: Full ROM, Normal Inspection Plan - A. End of MANAGER INSPECTION Vital Signs: Blood Pressure: 166/110 Pulse Rate: 98 Temperature: 98.8 F O2 Sat by Pulse Oximetry: 99 Finger Stick Blood Glucose: 396 - B. Assessment of Findings&Treatment Plan MANAGER INSPECTION called at 7:15 by nursing staff, CP discovered patient having active seizure while attempting to check blood glucose. Patient stopped seizing at the time of evaluation. Patient had an episode of vomiting and was treated with Reglan 5mg IVP. Morning labs to be checked. Patient returned to baseline. Second MANAGER INSPECTION called at 7:33 by nursing staff who witnessed seizure activity for 20 seconds after administering the Reglan. Sternal rub and stimulation of the upper and lower extremities had minimal response, but patient had eye activity and resisted eye opening. Patient awoke, vomited and returned to baseline. Patient awake, alert and anxious. Ativan 1 mg given which calmed patient. Keppra 500 mg IVBP given. Prolactin level ordered and awaiting blood work. Refer to vitals and physical exam findings noted previously.
[2016-10-22] MEDS: levETIRAcetam 500 MG in Sodium Chloride 0.9% 100 ML IVPB SCH ×3 (07:45→21:48)
[2016-10-22 08:47] LABS: BASO % 0.5 % (0.0-2.0); EOS % 0.6 % (0.0-4.0); HEMOGLOBIN 9.4 g/dL (11.0-16.0); LYMPH # 0.9 K/uL (1.0-4.3); LYMPH % 16.5 % (20.0-40.0); MEAN CORPUSCULAR HEMOGLOBIN 28.1 pg (27.0-31.0); MEAN CORPUSCULAR HGB CONC 32.3 g/dL (33.0-37.0); MEAN PLATELET VOLUME 9.7 fL (7.2-11.7); MONO # 0.3 K/uL (0.0-0.8); MONO % 4.7 % (0.0-10.0); NEUT # 4.4 K/uL (1.8-7.0); NEUT % 77.7 % (50.0-75.0); RBC 3.34 Mil/uL (3.80-5.20); RED CELL DISTRIBUTION WIDTH 14.2 % (11.5-14.5); WHITE BLOOD COUNT 5.7 K/uL (4.8-10.8)
[2016-10-22] MEDS: (Novolog) Insulin Aspart, Recombinant 100 u/ml 10 ml vial SC SCH ×5 (09:01→21:48)
[2016-10-22 09:06] LABS: ALBUMIN 2.2 g/dL (3.5-5.0)
[2016-10-22 09:09] LABS: ALB/GLOB RATIO 0.8 (1.0-2.1)
[2016-10-22 09:10] LABS: CALCIUM 8.1 mg/dl (8.6-10.4)
[2016-10-22 09:28] LABS: MAGNESIUM 1.8 mg/dL (1.6-2.3)
[2016-10-22] MEDS: Pantoprazole 40 mg EC Tab PO SCH (09:31)
--- NOTE | 2016-10-22 10:48 | CP.PCM.PN ---
<Mia Pathak - Last Filed: 10/22/16 13:32> Subjective - Date & Time of Evaluation Date of Evaluation: 10/22/16 Time of Evaluation: 10:41 - Subjective Subjective: Hospitalists progress note by PGY2 (covering for Dr. Cueva) Pt is seen and examined at bedside. Rapid Response was called on patient this morning due to witnessed seizures. Initial seizure was wittness by control technician as tonic clonic. Vital signs were stable at that time (please refer to Rapid Response note for details, BP 157/87, Pulse 105, Temp 97.6, Pulse ox 99% and blood sugar 301). After a few minutes, patient responded to sternal rub and was following commands. patient then vomited one time and was talking without difficulty. No loss of bowel or bladder and no tongue biting noted. Reglan was given for nausea. Patient then had a repeat seizure like activity witnessed by one of the nurses. Patient again was unresponsive for a few minutes. She again vomited greenish clear fluid and became responsive and was talking without difficulty. Patient was given 1 gm of Ativan IVP. No bowel or bladder incontinence noted again and no tongue biting. Vitals were stable after second seizure also. Patient only complained of mid-sternal chest pain unchanged from previous days. Objective - Vital Signs/Intake and Output Vital Signs (last 24 hours): Temp Pulse Resp BP Pulse Ox 98.8 F 107 H 20 145/92 H 99 10/22/16 08:00 10/22/16 08:00 10/22/16 08:00 10/22/16 08:00 10/22/16 08:00 Intake and Output: 10/22/16 10/22/16 06:59 18:59 Intake Total 490 Output Total 200 Balance 290 - Medications Medications: Current Medications Acetaminophen (Tylenol 325mg Tab) 650 mg PO Q6H PRN PRN Reason: Pain, Mild (1-3) Cyanocobalamin (Vitamin B12 1000 Mcg Tab) 1,000 mcg PO DAILY [facility] Last Admin: 10/21/16 13:36 Dose: 1,000 mcg Diphenhydramine HCl (Benadryl) 25 mg PO Q6 PRN PRN Reason: Agitation Last Admin: 10/21/16 02:17 Dose: 25 mg Diphenhydramine HCl (Benadryl) 25 mg IVP Q8H PRN PRN Reason: Agitation Ferrous Sulfate (Feosol) 325 mg PO BID [facility] Last Admin: 10/22/16 09:32 Dose: 325 mg Heparin Sodium (Porcine) (Heparin) 5,000 units SC Q12 [facility] Last Admin: 10/22/16 09:30 Dose: 5,000 units Levetiracetam 500 mg/ Sodium (Chloride) 105 mls @ 420 mls/hr IVPB Q12H [facility] Last Admin: 10/22/16 07:45 Dose: 420 mls/hr Insulin Aspart (Novolog) 0 unit SC ACHS [facility] PRN Reason: Protocol Last Admin: 10/22/16 09:35 Dose: 8 unit Insulin Glargine (Lantus) 12 unit SC HS [facility] Last Admin: 10/21/16 21:59 Dose: 12 units Lisinopril (Zestril) 20 mg PO DAILY [facility] Last Admin: 10/22/16 09:33 Dose: 20 mg Metoclopramide HCl (Reglan) 5 mg IVP Q8H PRN PRN Reason: Nausea/Vomiting Last Admin: 10/22/16 07:35 Dose: 5 mg Metoprolol Tartrate (Lopressor) 50 mg PO BID [facility] Last Admin: 10/22/16 09:32 Dose: 50 mg Ondansetron HCl (Zofran Inj) 4 mg IVP Q6H PRN PRN Reason: Nausea/Vomiting Last Admin: 10/22/16 03:56 Dose: 4 mg Pantoprazole Sodium (Protonix Ec Tab) 40 mg PO DAILY [facility] Last Admin: 10/22/16 09:31 Dose: 40 mg Sertraline HCl (Zoloft) 50 mg PO DAILY [facility] Last Admin: 10/22/16 09:31 Dose: 50 mg Thiamine HCl (Vitamin B1 Tab) 100 mg PO DAILY [facility] Last Admin: 10/22/16 09:31 Dose: 100 mg Trazodone HCl (Desyrel) 50 mg PO [facility] Last Admin: 10/21/16 22:00 Dose: Not Given - Labs Labs: 10/22/16 08:39 10/22/16 08:39 APTT 27 SECONDS (21-34) 10/17/16 06:22 - Head Exam Head Exam: ATRAUMATIC, NORMAL INSPECTION - ENT Exam ENT Exam: Mucous Membranes Moist Additional comments: no tongue biting noted - Respiratory Exam Respiratory Exam: Clear to Ausculation Bilateral, NORMAL BREATHING PATTERN. absent: Accessory Muscle Use, Rales, Rhonchi, Wheezes, Respiratory Distress - Cardiovascular Exam Cardiovascular Exam: REGULAR RHYTHM, +S1, +S2. absent: Gallop, Rubs, Murmur - GI/Abdominal Exam GI & Abdominal Exam: Soft, Tenderness, Normal Bowel Sounds. 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 CT of head on admission was negative. Seizures: Currently on IV Keppra 1000 mg BID, also ativan 1 mg IVP q6 PRN for breakthrough. Neuro consulted and adjusted keppra dose and blood sugar control. After speaking with Dr. Triplett today, patient is started on lemictal 25 mg po bid. seizure precaution Prolactin level post seizure activity is 129.2 (on admission 239.7) will check CPK level. patient started on IV hydration Will check MRI of brain without contrast Hyponatremia Na this morning is 128 Will check urine Na, urine osmolality and serum osmolality NS 100 cc HTN On Norvasc and Lopressor and Lisinopril Systolic BPs have been mostly in the 140s, however sometimes in 170s. Maybe go high due to stress or anxiety, continue to monitor DM - Out of control - Better now on insulin Currently on SSI medium Lantus 12 QHS Accuchecks Hgb A1c is 9.[address] abd/pelvis showed moderate diffuse constipation and prominent B/L ovaries. abd US showed prominent endometrium Advance diet as tolerated Protonix 40 mg qd Zofran and reglan prn for nausea Repeat EKG this morning showed NSR Anemia Continue iron supplements Case discussed with attending, Dr. Wise <Dmirtiy Wise - Last Filed: 10/23/16 13:14> Objective - Vital Signs/Intake and Output Vital Signs (last 24 hours): Temp Pulse Resp BP Pulse Ox 100.3 F H 108 H 20 131/88 99 10/22/16 23:45 10/23/16 08:54 07/05/17 23:45 10/23/16 10:00 10/22/16 23:45 Intake and Output: 10/23/16 10/23/16 06:59 18:59 Intake Total 800 Balance 800 - Medications Medications: Current Medications Acetaminophen (Tylenol 325mg Tab) 650 mg PO Q6H PRN PRN Reason: Pain, Mild (1-3) Amlodipine Besylate (Norvasc) 10 mg PO DAILY [facility] Last Admin: 10/23/16 10:23 Dose: 10 mg Cyanocobalamin (Vitamin B12 1000 Mcg Tab) 1,000 mcg PO DAILY [facility] Last Admin: 10/23/16 10:24 Dose: 1,000 mcg Diphenhydramine HCl (Benadryl) 25 mg IVP Q8H PRN PRN Reason: Agitation Ferrous Sulfate (Feosol) 325 mg PO BID [facility] Last Admin: 10/23/16 10:23 Dose: 325 mg Heparin Sodium (Porcine) (Heparin) 5,000 units SC Q12 [facility] Last Admin: 10/23/16 10:24 Dose: 5,000 units Levetiracetam 500 mg/ Sodium (Chloride) 105 mls @ 420 mls/hr IVPB Q12H [facility] Last Admin: 10/23/16 10:23 Dose: 420 mls/hr Sodium Chloride (Sodium Chloride 0.9%) 1,000 mls @ 100 mls/hr IV .Q10H [facility] Last Admin: 10/23/16 07:47 Dose: Not Given Ceftriaxone Sodium 1 gm/ (Sodium Chloride) 100 mls @ 100 mls/hr IVPB DAILY [facility] Last Admin: 10/23/16 11:12 Dose: 100 mls/hr Insulin Aspart (Novolog) 0 unit SC ACHS [facility] PRN Reason: Protocol Last Admin: 10/23/16 12:19 Dose: 6 unit Insulin Glargine (Lantus) 15 unit SC HS [facility] Lamotrigine (Lamictal) 25 mg PO BID [facility] Last Admin: 10/23/16 10:24 Dose: 25 mg Lisinopril (Zestril) 20 mg PO DAILY [facility] Last Admin: 10/23/16 10:23 Dose: 20 mg Lorazepam (Ativan) 1 mg IVP Q6H PRN PRN Reason: Seizure activity Last Admin: 10/22/16 20:02 Dose: 1 mg Lorazepam (Ativan) 0.5 mg IVP Q2H PRN PRN Reason: Anxiety Metoclopramide HCl (Reglan) 5 mg IVP Q8H PRN PRN Reason: Nausea/Vomiting Last Admin: 10/23/16 12:44 Dose: 5 mg Metoprolol Tartrate (Lopressor) 50 mg PO BID [facility] Last Admin: 10/23/16 10:23 Dose: 50 mg Ondansetron HCl (Zofran Inj) 4 mg IVP Q6H PRN PRN Reason: Nausea/Vomiting Last Admin: 10/23/16 07:57 Dose: 4 mg Pantoprazole Sodium (Protonix Inj) 40 mg IVP DAILY [facility] Last Admin: 10/23/16 11:12 Dose: 40 mg Sertraline HCl (Zoloft) 50 mg PO DAILY [facility] Last Admin: 10/22/16 09:31 Dose: 50 mg Thiamine HCl (Vitamin B1 Tab) 100 mg PO DAILY [facility] Last Admin: 10/23/16 10:24 Dose: 100 mg Trazodone HCl (Desyrel) 50 mg PO HS [facility] Last Admin: 10/22/16 21:49 Dose: Not Given - Labs Labs: 10/22/16 08:39 10/22/16 08:39 APTT 27 SECONDS (21-34) 10/17/16 06:22 Attending/Attestation - Attestation I have personally seen and examined this patient.: Yes I have fully participated in the care of the patient.: Yes I have reviewed all pertinent clinical information, including history, physical exam and plan: Yes Notes (Text): 10/23/16 13:13 Patient was seen and examined at bedside with the resident Patient has the multiple episodes of seizure today She also complained of abdominal pain Patient was given Ativan to control the seizures She was also given pain medication I discussed the plan of care with the resident and agree with the history and physical and assessment/plan by the resident.
[2016-10-22] MEDS: Sodium Chloride 0.9% 1,000 ML IV SCH (11:29)
[2016-10-22] MEDS ORDERED: Naloxone 0.4 mg/ml Inj (Adult) IVP STA (12:27)
[2016-10-22] MEDS ORDERED: Naloxone 0.4 mg/ml Inj (Adult) ONE (12:29)
--- NOTE | 2016-10-22 12:44 | PCM.RRTMUL ---
VOCATIONAL NURSE Nurses Assessment - Situation VOCATIONAL NURSE Called By: RN - Vital Signs Blood Pressure:: 145/92 Pulse Rate:: 107 Respiratory Rate:: 20 Temperature:: 98.8 F - A) Initial Vital Signs: Blood Pressure: 153/92 Pulse Rate: 97 Finger Stick Blood Glucose: 495 - B) Neurological Status (Select all that apply): absent: Alert, Responsive - Constitutional Appears: In Acute Distress Additional Comments: not responsive to sternal rub - Head Head Exam: ATRAUMATIC, NORMAL INSPECTION - Respiratory Exam Respiratory Exam: NORMAL BREATHING PATTERN - Cardiovascular Exam Cardiovascular Exam: REGULAR RHYTHM, RRR - GI/Abdominal Exam GI & Abdominal Exam: Soft, Normal Bowel Sounds - Neurological Exam Neurological Exam: Altered - Extremities Exam Extremities Exam: Normal Inspection Plan - B. Assessment of Findings&Treatment Plan Rapid response called at 12:21. Patient had witnessed seizure activity for 10 seconds. Patient had just been given insulin 10 units and .5mg morphine. Patient was unresponsive on initial evaluation. Patient did not respond to sternal rub. Several minutes later patient spontaneously awoke and vomited. Patient will be started on Bentyl 10 mg TID. Patient to be started on telemetry. Patient noted to be hyponatremic 128, which is being replaced with Normal Saline at 100cc/hr.
[2016-10-22] MEDS ORDERED: hydrOXYzine HCl 25 mg/ml Inj IM PRN (14:34)
[2016-10-22] MEDS: (Lantus) Insulin Glargine, Recombinant SC SCH (21:49)
[2016-10-23] MEDS ORDERED: DiphenhydrAMINE 50 mg/ml Inj IVP STA (00:23)
[2016-10-23] MEDS: Sodium Chloride 0.9% 1,000 ML IV SCH ×3 (03:00→20:21)
[2016-10-23] MEDS ORDERED: Labetalol 25mg/5ml Syringe IVP STA (08:10)
[2016-10-23] MEDS: (Novolog) Insulin Aspart, Recombinant 100 u/ml 10 ml vial SC SCH ×5 (09:00→22:16)
--- NOTE | 2016-10-23 09:34 | CP.PCM.PN ---
<Yvette Vicente - Last Filed: 10/23/16 16:13> Subjective - Date & Time of Evaluation Date of Evaluation: 10/23/16 Time of Evaluation: 08:00 - Subjective Subjective: Medicine Progress Note- Dr Wise Service Patient seen and examined this morning. Patient complaining of severe epigastric pain associated with nausea and vomiting. Patient has been unable to tolerate any oral intake and has been vomiting thin liquid, brown in color, non-bloody. Patient tearful and states that her abdominal pain is worsening. Patient did not have any seizures overnight. Per patient she has been to multiple hospitals and the only pain medication that helps her is morphine. Patient was given Morphin 1mg IV stat, labetolol 20mg IV stat and ativan 1mg IV stat this morning at time of examination. Patient's symptoms improved. Despite receiving insulin the patient continues to have uncontrolled sugars. Patient's nausea and vomiting is not improving on zofran and reglan. Denies chest pain, shortness of breath, and focal weakness. Objective - Vital Signs/Intake and Output Vital Signs (last 24 hours): Temp Pulse Resp BP Pulse Ox 100.3 F H 108 H 20 164/113 H 99 10/22/16 23:45 10/23/16 08:54 10/22/16 23:45 10/23/16 08:54 10/22/16 23:45 Intake and Output: 10/23/16 10/23/16 06:59 18:59 Intake Total 800 Balance 800 - Medications Medications: Current Medications Acetaminophen (Tylenol 325mg Tab) 650 mg PO Q6H PRN PRN Reason: Pain, Mild (1-3) Amlodipine Besylate (Norvasc) 10 mg PO DAILY [facility] Cyanocobalamin (Vitamin B12 1000 Mcg Tab) 1,000 mcg PO DAILY [facility] Last Admin: 10/22/16 14:46 Dose: Not Given Diphenhydramine HCl (Benadryl) 25 mg IVP Q8H PRN PRN Reason: Agitation Ferrous Sulfate (Feosol) 325 mg PO BID [facility] Last Admin: 10/22/16 18:01 Dose: Not Given Heparin Sodium (Porcine) (Heparin) 5,000 units SC Q12 [facility] Last Admin: 10/22/16 21:48 Dose: 5,000 units Levetiracetam 500 mg/ Sodium (Chloride) 105 mls @ 420 mls/hr IVPB Q12H [facility] Last Admin: 10/22/16 21:48 Dose: 420 mls/hr Sodium Chloride (Sodium Chloride 0.9%) 1,000 mls @ 100 mls/hr IV .Q10H [facility] Last Admin: 10/23/16 07:47 Dose: Not Given Ceftriaxone Sodium 1 gm/ (Sodium Chloride) 100 mls @ 100 mls/hr IVPB DAILY [facility] Last Admin: 10/22/16 13:40 Dose: 100 mls/hr Insulin Aspart (Novolog) 0 unit SC [facility] PRN Reason: Protocol Last Admin: 10/23/16 09:00 Dose: Not Given Insulin Glargine (Lantus) 15 unit SC [facility] Lamotrigine (Lamictal) 25 mg PO BID [facility] Last Admin: 10/22/16 18:04 Dose: 25 mg Lisinopril (Zestril) 20 mg PO DAILY [facility] Last Admin: 10/22/16 09:33 Dose: 20 mg Lorazepam (Ativan) 1 mg IVP Q6H PRN PRN Reason: Seizure activity Last Admin: 10/22/16 20:02 Dose: 1 mg Metoclopramide HCl (Reglan) 5 mg IVP Q8H PRN PRN Reason: Nausea/Vomiting Last Admin: 10/22/16 13:45 Dose: 5 mg Metoprolol Tartrate (Lopressor) 50 mg PO BID [facility] Last Admin: 10/22/16 18:04 Dose: 50 mg Ondansetron HCl (Zofran Inj) 4 mg IVP Q6H PRN PRN Reason: Nausea/Vomiting Last Admin: 10/23/16 07:57 Dose: 4 mg Pantoprazole Sodium (Protonix Inj) 40 mg IVP DAILY [facility] Sertraline HCl (Zoloft) 50 mg PO DAILY [facility] Last Admin: 10/22/16 09:31 Dose: 50 mg Thiamine HCl (Vitamin B1 Tab) 100 mg PO DAILY [facility] Last Admin: 10/22/16 09:31 Dose: 100 mg Trazodone HCl (Desyrel) 50 mg PO [facility] Last Admin: 10/22/16 21:49 Dose: Not Given - Labs Labs: 10/22/16 08:39 10/22/16 08:39 APTT 27 SECONDS (21-34) 10/17/16 06:22 - Constitutional Appears: In Acute Distress - Head Exam Head Exam: ATRAUMATIC, NORMOCEPHALIC - Eye Exam Eye Exam: EOMI, Normal appearance - ENT Exam ENT Exam: Mucous Membranes Moist - Neck Exam Neck Exam: Normal Inspection - Respiratory Exam Respiratory Exam: Clear to Ausculation Bilateral, NORMAL BREATHING PATTERN. absent: Rhonchi, Wheezes, Respiratory Distress - Cardiovascular Exam Cardiovascular Exam: Tachycardia, REGULAR RHYTHM, +S1, +S2. 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 1. Seizures: No seizures overnight Currently on IV Keppra 500 mg BID Ativan 1 mg IVP q6 PRN for breakthrough seizure Ativan 1mg IV q2h prn anxiety Neuro consulted-Dr. Triplett, help appreciated. Started on Lamictal 25mg PO BID on 10/22. Sseizure precautions Prolactin level post seizure activity on 10/22 is 129.2 (on admission 239.7) Will check MRI of brain without contrast- patient currently refusing 2. Gastroperesis Not improving Consulted GI Dr Licona- help appreciated. Recommends endoscopy but not at this time due to symptoms. f/u abdomen flat plate f/u complete abdominal US CT abd/pelvis showed moderate diffuse constipation and prominent B/L ovaries--> f/u pelvic US showed prominent endometrium. Advance diet as tolerated Protonix 40 mg IV daily Zofran and reglan prn for nausea Adjusting medications for better sugar control IVF NS @100cc/hr PICC line ordered due to poor venous access 3. Hyponatremia Likely secondary to decreased fluid intake f/u CMP today 10/22 Na+ 128 Will check urine Na, urine osmolality and serum osmolality IVF NS @100cc/hr 4. Uncontrolled HTN Given Labetolol 20mg IV x1 this AM Norvasc 10mg PO daily Lisinopril 20mg PO daily Lopressor 50mg PO BID Systolic BPs have been mostly in the 140s, however sometimes in 170s. May be elevated due to stress or anxiety, continue to monitor 5. Uncontrolled DM Admitted for hyperglycemia causing complications Consulted Dr Greta Mcgill ([employer] Helper)- help appreciated. Will adjust medications. Currently on ISS Accuchecks Hgb A1c is 9.2 IVF NS @100cc/hr 6. CKD BUN/Cr 23/2 GFR 30-40 Stable Continue IVF and monitor CMP daily 7. Leukocytosis WBC 23.1, febrile 100.3F overnight f/u blood culture and urine culture on 10/23 Cont Rocephin 1gm IV daily 10/16 blood culture and urine cx negative 8. Depression Psych consulted Dr New- help appreciated Started on Zoloft and Trazadone daily per psych on 10/21- medications currently on HOLD due to decreasing seizure threshold Currently denies SI/HI Ativan 1mg IV 9. Anemia Continue iron supplements Hgb stable 9. Prophlactic measures Protonix 40mg IV daily [facility] Heparin 5000u SC Case discussed with attending, Dr. Wise <Dmitriy Wise - Last Filed: 10/24/16 09:12> Objective - Vital Signs/Intake and Output Vital Signs (last 24 hours): Temp Pulse Resp BP Pulse Ox 98.7 F 108 H 20 175/93 H 97 10/24/16 07:00 10/24/16 07:00 10/24/16 07:00 10/24/16 07:00 10/24/16 07:00 Intake and Output: 10/24/16 10/24/16 06:59 18:59 Intake Total 1280 Balance 1280 - Medications Medications: Current Medications Acetaminophen (Tylenol 325mg Tab) 650 mg PO Q6H PRN PRN Reason: Pain, Mild (1-3) Amlodipine Besylate (Norvasc) 10 mg PO DAILY [facility] Last Admin: 10/23/16 10:23 Dose: 10 mg Cyanocobalamin (Vitamin B12 1000 Mcg Tab) 1,000 mcg PO DAILY [facility] Last Admin: 10/23/16 10:24 Dose: 1,000 mcg Diphenhydramine HCl (Benadryl) 25 mg IVP Q8H PRN PRN Reason: Agitation Ferrous Sulfate (Feosol) 325 mg PO BID [facility] Last Admin: 10/23/16 19:25 Dose: 325 mg Heparin Sodium (Porcine) (Heparin) 5,000 units SC Q12 [facility] Last Admin: 10/23/16 22:16 Dose: 5,000 units Levetiracetam 500 mg/ Sodium (Chloride) 105 mls @ 420 mls/hr IVPB Q12H [facility] Last Admin: 10/23/16 22:15 Dose: 420 mls/hr Sodium Chloride (Sodium Chloride 0.9%) 1,000 mls @ 100 mls/hr IV .Q10H [facility] Last Admin: 10/24/16 06:50 Dose: 100 mls/hr Ceftriaxone Sodium 1 gm/ (Sodium Chloride) 100 mls @ 100 mls/hr IVPB DAILY [facility] Last Admin: 10/23/16 11:12 Dose: 100 mls/hr Insulin Aspart (Novolog) 10 unit SC AC [facility] Last Admin: 10/23/16 19:24 Dose: 10 unit Insulin Aspart (Novolog) 0 unit SC ACHS [facility] PRN Reason: Protocol Last Admin: 10/23/16 22:16 Dose: Not Given Insulin Glargine (Lantus) 24 unit SC HS [facility] Last Admin: 10/23/16 22:15 Dose: 24 unit Lamotrigine (Lamictal) 25 mg PO BID [facility] Last Admin: 10/23/16 19:25 Dose: 25 mg Lisinopril (Zestril) 20 mg PO DAILY [facility] Last Admin: 10/23/16 10:23 Dose: 20 mg Lorazepam (Ativan) 1 mg IVP Q6H PRN PRN Reason: Seizure activity Last Admin: 10/23/16 13:26 Dose: 1 mg Lorazepam (Ativan) 0.5 mg IVP Q2H PRN PRN Reason: Anxiety Last Admin: 10/24/16 08:41 Dose: 0.5 mg Metoclopramide HCl (Reglan) 5 mg IVP Q8H PRN PRN Reason: Nausea/Vomiting Last Admin: 10/23/16 12:44 Dose: 5 mg Metoprolol Tartrate (Lopressor) 50 mg PO BID [facility] Last Admin: 10/23/16 17:00 Dose: Not Given Ondansetron HCl (Zofran Inj) 4 mg IVP Q6H PRN PRN Reason: Nausea/Vomiting Last Admin: 10/24/16 08:39 Dose: 4 mg Pantoprazole Sodium (Protonix Inj) 40 mg IVP DAILY [facility] Last Admin: 10/23/16 11:12 Dose: 40 mg Sertraline HCl (Zoloft) 100 mg PO DAILY [facility] Thiamine HCl (Vitamin B1 Tab) 100 mg PO DAILY [facility] Last Admin: 10/23/16 10:24 Dose: 100 mg Trazodone HCl (Desyrel) 100 mg PO HS [facility] - Labs Labs: 10/23/16 14:35 10/24/16 08:13 APTT 27 SECONDS (21-34) 10/17/16 06:22 Attending/Attestation - Attestation I have personally seen and examined this patient.: Yes I have fully participated in the care of the patient.: Yes I have reviewed all pertinent clinical information, including history, physical exam and plan: Yes Notes (Text): 10/24/16 09:12 Patient was seen and examined at bedside Patient still complains of abdominal pain No further seizures today Continue current medical management Discussed plan of care with the resident agree with the assessment plan by the resident.
[2016-10-23] MEDS: levETIRAcetam 500 MG in Sodium Chloride 0.9% 100 ML IVPB SCH ×2 (10:23→22:15)
--- NOTE | 2016-10-23 10:47 | CP.PCM.CON ---
History of Present Illness - History of Present Illness History of Present Illness: 26 yo female h/o DM- admitted 1 week ago for SZ and hyperosmolar. ASked to see patient for persistent nausea and vomiting. Pt reports chronic nausea and vomiting x yrs. Had EGD 4 years ago which reportedly showed gastroparesis and gastritis. Pt reports persistent nausea and vomiting- solids and liquids. Reports chronic constipation.- admission CT abdomen shows constipation pattern. Reports epig pain x 1 week.- mild burning. Review of Systems - Constitutional Constitutional: Fatigue, Weight Loss. absent: Fever, Headache - Cardiovascular Cardiovascular: absent: Chest Pain, Dyspnea - Respiratory Respiratory: absent: Hemoptysis, Wheezing - Gastrointestinal Gastrointestinal: Abdominal Pain, Constipation, Nausea, Vomiting. absent: Diarrhea, Dysphagia, Hematemesis, Hematochezia, Melena - Genitourinary Genitourinary: absent: Dysuria, Hematuria - Integumentary Integumentary: absent: Rash, Jaundice - Neurological Neurological: absent: Headaches, Loss of Vision Past Patient History - Infectious Disease Hx of Infectious Diseases: None - Past Medical History & Family History Past Medical History?: Yes - Past Social History Smoking Status: Current Some Days Smoker - CARDIAC Hx Hypertension: Yes - PULMONARY Hx Respiratory Disorders: No - NEUROLOGICAL Hx Seizures: Yes - RENAL Hx Chronic Kidney Disease: No - ENDOCRINE/METABOLIC Hx Endocrine Disorders: Yes (diabetes) Hx Diabetes Mellitus Type 2: Yes - HEMATOLOGICAL/ONCOLOGICAL Hx Blood Disorders: No - INTEGUMENTARY Hx Dermatological Problems: No - MUSCULOSKELETAL/RHEUMATOLOGICAL Hx Falls: No - GASTROINTESTINAL Hx Gastrointestinal Disorders: Yes Other/Comment: gastroparesis - GENITOURINARY/GYNECOLOGICAL Hx Genitourinary Disorders: No - PSYCHIATRIC Hx Substance Use: No - SURGICAL HISTORY Hx Surgeries: No - ANESTHESIA Hx Anesthesia: No Hx Anesthesia Reactions: No Hx Malignant Hyperthermia: No Meds Allergies/Adverse Reactions: Allergies Allergy/AdvReac Type Severity Reaction Status Date / Time No Known Allergies Allergy Verified 10/16/16 08:24 - Medications Medications: Current Medications Acetaminophen (Tylenol 325mg Tab) 650 mg PO Q6H PRN PRN Reason: Pain, Mild (1-3) Amlodipine Besylate (Norvasc) 10 mg PO DAILY [facility] Last Admin: 10/23/16 10:23 Dose: 10 mg Cyanocobalamin (Vitamin B12 1000 Mcg Tab) 1,000 mcg PO DAILY [facility] Last Admin: 10/23/16 10:24 Dose: 1,000 mcg Diphenhydramine HCl (Benadryl) 25 mg IVP Q8H PRN PRN Reason: Agitation Ferrous Sulfate (Feosol) 325 mg PO BID [facility] Last Admin: 10/23/16 10:23 Dose: 325 mg Heparin Sodium (Porcine) (Heparin) 5,000 units SC Q12 [facility] Last Admin: 10/23/16 10:24 Dose: 5,000 units Levetiracetam 500 mg/ Sodium (Chloride) 105 mls @ 420 mls/hr IVPB Q12H [facility] Last Admin: 10/23/16 10:23 Dose: 420 mls/hr Sodium Chloride (Sodium Chloride 0.9%) 1,000 mls @ 100 mls/hr IV .Q10H [facility] Last Admin: 10/23/16 07:47 Dose: Not Given Ceftriaxone Sodium 1 gm/ (Sodium Chloride) 100 mls @ 100 mls/hr IVPB DAILY [facility] Last Admin: 10/22/16 13:40 Dose: 100 mls/hr Insulin Aspart (Novolog) 0 unit SC ACHS [facility] PRN Reason: Protocol Last Admin: 10/23/16 09:00 Dose: Not Given Insulin Glargine (Lantus) 15 unit SC [facility] Lamotrigine (Lamictal) 25 mg PO BID [facility] Last Admin: 10/23/16 10:24 Dose: 25 mg Lisinopril (Zestril) 20 mg PO DAILY [facility] Last Admin: 10/23/16 10:23 Dose: 20 mg Lorazepam (Ativan) 1 mg IVP Q6H PRN PRN Reason: Seizure activity Last Admin: 10/22/16 20:02 Dose: 1 mg Lorazepam (Ativan) 0.5 mg IVP Q2H PRN PRN Reason: Anxiety Metoclopramide HCl (Reglan) 5 mg IVP Q8H PRN PRN Reason: Nausea/Vomiting Last Admin: 10/22/16 13:45 Dose: 5 mg Metoprolol Tartrate (Lopressor) 50 mg PO BID [facility] Last Admin: 10/23/16 10:23 Dose: 50 mg Ondansetron HCl (Zofran Inj) 4 mg IVP Q6H PRN PRN Reason: Nausea/Vomiting Last Admin: 10/23/16 07:57 Dose: 4 mg Pantoprazole Sodium (Protonix Inj) 40 mg IVP DAILY [facility] Sertraline HCl (Zoloft) 50 mg PO DAILY [facility] Last Admin: 10/22/16 09:31 Dose: 50 mg Thiamine HCl (Vitamin B1 Tab) 100 mg PO DAILY [facility] Last Admin: 10/23/16 10:24 Dose: 100 mg Trazodone HCl (Desyrel) 50 mg PO HS [facility] Last Admin: 10/22/16 21:49 Dose: Not Given Physical Exam - Constitutional Appears: Non-toxic - Respiratory Exam Respiratory Exam: Clear to Auscultation Bilateral - Cardiovascular Exam Cardiovascular Exam: RRR - GI/Abdominal Exam GI & Abdominal Exam: Normal Bowel Sounds, Soft, Tenderness. absent: Distended, Guarding, Rebound Additional comments: mild epig tenderness - Extremities Exam Extremities exam: Negative for: pedal edema - Neurological Exam Neurological exam: Alert, Oriented x3 Results - Vital Signs Recent Vital Signs: Last Vital Signs Temp 100.3 F H 10/22/16 23:45 Pulse 108 H 10/23/16 08:54 Resp 20 10/22/16 23:45 BP 177/105 H 10/23/16 09:05 Pulse Ox 99 10/22/16 23:45 - Labs Result Diagrams: 10/22/16 08:39 10/22/16 08:39 Labs: Laboratory Results - last 24 hr 10/22/16 10/22/16 10/22/16 08:39 09:00 11:46 Sodium 128 L Potassium 4.2 Chloride 98 Carbon Dioxide 21 L Anion Gap 13 BUN 17 Creatinine 1.7 H Est GFR ( Amer) 44 Est GFR (Non-Af Amer) 36 POC Glucose (mg/dL) 492 H* Random Glucose 598 H* D Serum Osmolality 306 H Calcium 8.1 L Phosphorus 3.9 Magnesium 1.8 Total Bilirubin 0.4 AST 17 ALT 17 Alkaline Phosphatase 97 Total Creatine Kinase 41 Total Protein 4.8 L Albumin 2.2 L Globulin 2.6 Albumin/Globulin Ratio 0.8 L 10/22/16 10/22/16 10/23/16 16:46 21:14 02:11 Sodium Potassium Chloride Carbon Dioxide Anion Gap BUN Creatinine Est GFR ( Amer) Est GFR (Non-Af Amer) POC Glucose (mg/dL) 195 H 439 H* 396 H Random Glucose Serum Osmolality Calcium Phosphorus Magnesium Total Bilirubin AST ALT Alkaline Phosphatase Total Creatine Kinase Total Protein Albumin Globulin Albumin/Globulin Ratio 10/23/16 06:25 Sodium Potassium Chloride Carbon Dioxide Anion Gap BUN Creatinine Est GFR ( Amer) Est GFR (Non-Af Amer) POC Glucose (mg/dL) 247 H Random Glucose Serum Osmolality Calcium Phosphorus Magnesium Total Bilirubin AST ALT Alkaline Phosphatase Total Creatine Kinase Total Protein Albumin Globulin Albumin/Globulin Ratio Assessment & Plan (1) ARF (acute renal failure) Status: Acute (2) Anemia Assessment and Plan: likely chronic Status: Acute (3) Diabetic gastroparesis Assessment and Plan: As seen on past EGD. Status: Acute (4) Hyperglycemia Status: Acute (5) Hyperosmolar (nonketotic) coma Status: Acute (6) Seizure Status: Acute (7) Vomiting Assessment and Plan: Likely multifactorial: DM, gastroparsis, elevated sugars, constipation, acidosis , renal. Sugars are still around 500. Consdier gastritis. Pt is on reglan 500 mg TID. REC; Treat hyperglycemia and acidosis. PPI IV BID. Consider increasing reglan. Treat seizures. Treat constipation- enemas/suppositories. Check U/a- ketones. Consider endoscopy- but hold now - due to above concerns and conditions. Status: Acute
[2016-10-23 14:50] LABS: BASO % 0.2 % (0.0-2.0); HEMOGLOBIN 9.9 g/dL (11.0-16.0); LYMPH # 1.7 K/uL (1.0-4.3); LYMPH % 7.5 % (20.0-40.0); MEAN CELL VOLUME 87.3 fL (81.0-99.0); MEAN CORPUSCULAR HGB CONC 32.1 g/dL (33.0-37.0); MEAN PLATELET VOLUME 10.2 fL (7.2-11.7); MONO # 0.3 K/uL (0.0-0.8); MONO % 1.5 % (0.0-10.0); NEUT % 90.8 % (50.0-75.0); PLATELET COUNT 326 K/uL (130-400); RBC 3.53 Mil/uL (3.80-5.20); RED CELL DISTRIBUTION WIDTH 14.4 % (11.5-14.5); WHITE BLOOD COUNT 23.1 K/uL (4.8-10.8)
[2016-10-23 15:13] LABS: ALBUMIN 2.5 g/dL (3.5-5.0)
[2016-10-23 15:16] LABS: ALB/GLOB RATIO 0.9 (1.0-2.1)
[2016-10-23 15:17] LABS: CALCIUM 8.2 mg/dl (8.6-10.4); MAGNESIUM 2.1 mg/dL (1.6-2.3)
[2016-10-23 15:31] LABS: SQUAMOUS EPITHIAL 22 /hpf (0-5); URINE BACTERIA RARE (<OCC); URINE BILIRUBIN NEGATIVE (NEGATIVE); URINE CLARITY Hazy (Clear); URINE COLOR Yellow (YELLOW); URINE GLUCOSE (UA) 3+ mg/dL (Normal); URINE HYALINE CAST 0-2 /lpf (0-2); URINE LEUKOCYTE ESTERASE NEG Leu/uL (Negative); URINE NITRATE NEGATIVE (NEGATIVE); URINE PROTEIN 3+ mg/dL (NEGATIVE); URINE UROBILINOGEN NORMAL mg/dL (0.2-1.0)
[2016-10-23 15:32] LABS: URINE BLOOD 1+ (NEGATIVE)
--- NOTE | 2016-10-23 16:27 | RAD ---
HISTORY: vomiting, ileus COMPARISON: No prior. FINDINGS: BOWEL: There is paucity of small and large bowel gas. No dilated bowel loops are appreciated to suggest obstruction in the few gas-filled loops that are present No obstruction. Left colonic moderate stool retention. No free air. BONES: T12 with rudimentary ribs. L5 spina bifida occulta. OTHER FINDINGS: None. IMPRESSION: Paucity of bowel gas as above. No suspect high-grade obstruction. . No dilated bowel loops with air-fluid levels suggested. Moderate left colonic stool retention. Clinical follow-up recommended
--- NOTE | 2016-10-23 17:01 | PCM.PYCHPN ---
Psychiatric Progress Note - Psychiatric Progress Note Patient seen today, length of contact: 16 min Patient Chief Complaint: I was feeling depressed Problems Identified/Issues Discussed: Patient seen and evaluated, chart reviewed and discussed with the nurse. Patient reports depressed mood and at times feelings of hopelessness and helplessness. As per the staff patient remained isolated and withdrawn. She is tolerating the medications and denies any side effects. Supportive therapy and psychoeducation were given. Medication Change: Yes (increase Zoloft, increase trazodone) Medical Record Reviewed: Yes Mental Status Examination - Cognitive Function Orientation: Person, Place, Situation, Time Memory: Intact Attention: WNL Concentration: Poor Association: WNL Fund of Knowledge: Poor - Mood Mood: Depressed, Anxious - Affect Affect: Constricted, Depressed - Speech Speech: Soft - Formal Thought Process Formal Thought Process: No Impairment - Suicidal Ideation Suicidal Ideation: No - Homicidal Ideation Homicidal Ideation: No Goal/Treatment Plan - Goal/Treatment Plan Need for Continued Stay: Discharge may exacerbated symptoms Progress Toward Problem(s) and Goals/Treatment Plan: Major depressive disorder recurrent moderate CBT Psychoeducation Zoloft 100 mg daily Trazodone 100 mg by mouth daily at bedtime Lamictal 25 g by mouth twice a day Gen. anxiety disorder CBT Psychoeducation Atarax 25 mg by mouth every 6 hours when necessary - Smoking Cessation Smoking Cessation Initiated: No
[2016-10-23 17:51] LABS: PLATELET ESTIMATE NORMAL (NORMAL)
[2016-10-23 17:53] LABS: ANISOCYTOSIS SLIGHT; BANDS 2 % (0-2); LYMPHOCYTE 4 % (20-40); MONOCYTE 2 % (0-10); NEUTROPHIL 92 % (50-75); POIKILOCYTOSIS SLIGHT; POLYCHROMIC SLIGHT; SMUDGE CELLS PRESENT; TOTAL CELLS COUNTED 100
[2016-10-23 17:54] LABS: HYPERSEGMENTATION PRESENT; LARGE PLATELETS PRESENT
[2016-10-23] MEDS ORDERED: (Lantus) Insulin Glargine, Recombinant SC SCH (22:00)
[2016-10-23] MEDS: (Lantus) Insulin Glargine, Recombinant SC SCH (22:15)
[2016-10-24] MEDS ORDERED: Dextrose 50% SYRINGE Inj (50 ml) IV STA (02:50)
[2016-10-24] MEDS ORDERED: Dextrose 50% SYRINGE Inj (50 ml) ONE (02:55)
[2016-10-24] MEDS: Sodium Chloride 0.9% 1,000 ML IV SCH ×2 (06:50→15:11)
[2016-10-24] MEDS: (Novolog) Insulin Aspart, Recombinant 100 u/ml 10 ml vial SC SCH ×7 (08:00→21:34)
--- NOTE | 2016-10-24 08:33 | CP.PCM.PN ---
Addendum entered and electronically signed by Gem Leal DO 10/24/16 18: 03: Reglan increased to 10 mg Q8H. Dulcolax suppository ordered since patient refusing po medication. Mother at bedside today and worried about patient. Taylor Leal, PGY 3 Addendum entered and electronically signed by Yvette Vicente DO 10/24/16 15:29 : All PO meds on hold due to patient refusing to take medication by mouth because of her nausea. Start Metoprolol 5mg IV q6h. Start PPN tomorrow if patient still can not tolerate food. Original Note: <Yvette Vicente - Last Filed: 10/24/16 13:50> Subjective - Date & Time of Evaluation Date of Evaluation: 10/24/16 Time of Evaluation: 08:33 - Subjective Subjective: Medicine Progress Note- Dr Wise Service Patient seen and examined. Patient appears to be more comfortable this morning ; however, she continues to have nausea and abdominal pain that is improved only with pain medication. Patient has not been able to tolerate oral intake without vomiting. Patient denies seizure activity overnight. Denies fever, chills, chest pain, shortness of breath, palpitations, headache, and weakness. Objective - Vital Signs/Intake and Output Vital Signs (last 24 hours): Temp Pulse Resp BP Pulse Ox 98.3 F 94 H 20 133/77 97 10/23/16 23:50 10/24/16 04:05 10/23/16 23:50 10/23/16 23:50 10/23/16 23:50 Intake and Output: 10/24/16 10/24/16 06:59 18:59 Intake Total 1280 Balance 1280 - Medications Medications: Current Medications Acetaminophen (Tylenol 325mg Tab) 650 mg PO Q6H PRN PRN Reason: Pain, Mild (1-3) Amlodipine Besylate (Norvasc) 10 mg PO DAILY [facility] Last Admin: 10/23/16 10:23 Dose: 10 mg Cyanocobalamin (Vitamin B12 1000 Mcg Tab) 1,000 mcg PO DAILY [facility] Last Admin: 10/23/16 10:24 Dose: 1,000 mcg Diphenhydramine HCl (Benadryl) 25 mg IVP Q8H PRN PRN Reason: Agitation Ferrous Sulfate (Feosol) 325 mg PO BID [facility] Last Admin: 10/23/16 19:25 Dose: 325 mg Heparin Sodium (Porcine) (Heparin) 5,000 units SC Q12 [facility] Last Admin: 10/23/16 22:16 Dose: 5,000 units Levetiracetam 500 mg/ Sodium (Chloride) 105 mls @ 420 mls/hr IVPB Q12H [facility] Last Admin: 10/23/16 22:15 Dose: 420 mls/hr Sodium Chloride (Sodium Chloride 0.9%) 1,000 mls @ 100 mls/hr IV .Q10H [facility] Last Admin: 10/24/16 06:50 Dose: 100 mls/hr Ceftriaxone Sodium 1 gm/ (Sodium Chloride) 100 mls @ 100 mls/hr IVPB DAILY [facility] Last Admin: 10/23/16 11:12 Dose: 100 mls/hr Insulin Aspart (Novolog) 10 unit SC AC [facility] Last Admin: 10/23/16 19:24 Dose: 10 unit Insulin Aspart (Novolog) 0 unit SC ACHS [facility] PRN Reason: Protocol Last Admin: 10/23/16 22:16 Dose: Not Given Insulin Glargine (Lantus) 24 unit SC HS [facility] Last Admin: 10/23/16 22:15 Dose: 24 unit Lamotrigine (Lamictal) 25 mg PO BID [facility] Last Admin: 10/23/16 19:25 Dose: 25 mg Lisinopril (Zestril) 20 mg PO DAILY [facility] Last Admin: 10/23/16 10:23 Dose: 20 mg Lorazepam (Ativan) 1 mg IVP Q6H PRN PRN Reason: Seizure activity Last Admin: 10/23/16 13:26 Dose: 1 mg Lorazepam (Ativan) 0.5 mg IVP Q2H PRN PRN Reason: Anxiety Metoclopramide HCl (Reglan) 5 mg IVP Q8H PRN PRN Reason: Nausea/Vomiting Last Admin: 10/23/16 12:44 Dose: 5 mg Metoprolol Tartrate (Lopressor) 50 mg PO BID [facility] Last Admin: 10/23/16 17:00 Dose: Not Given Ondansetron HCl (Zofran Inj) 4 mg IVP Q6H PRN PRN Reason: Nausea/Vomiting Last Admin: 10/23/16 16:37 Dose: 4 mg Pantoprazole Sodium (Protonix Inj) 40 mg IVP DAILY [facility] Last Admin: 10/23/16 11:12 Dose: 40 mg Sertraline HCl (Zoloft) 100 mg PO DAILY [facility] Thiamine HCl (Vitamin B1 Tab) 100 mg PO DAILY [facility] Last Admin: 10/23/16 10:24 Dose: 100 mg Trazodone HCl (Desyrel) 100 mg PO HS [facility] - Labs Labs: 10/23/16 14:35 10/23/16 14:35 APTT 27 SECONDS (21-34) 10/17/16 06:22 - Constitutional Appears: In Acute Distress - Head Exam Head Exam: ATRAUMATIC, NORMOCEPHALIC - Eye Exam Eye Exam: EOMI, Normal appearance - ENT Exam ENT Exam: Mucous Membranes Moist - Neck Exam Neck Exam: Normal Inspection - Respiratory Exam Respiratory Exam: Clear to Ausculation Bilateral, NORMAL BREATHING PATTERN. absent: Rhonchi, Wheezes, Respiratory Distress - Cardiovascular Exam Cardiovascular Exam: REGULAR RHYTHM, +S1, +S2. absent: Irregular Rhythm - GI/Abdominal Exam GI & Abdominal Exam: Soft, Tenderness - Extremities Exam Extremities Exam: Normal Inspection. absent: Pedal Edema - Back Exam Back Exam: NORMAL INSPECTION - Neurological Exam Neurological Exam: Alert, Awake, CN II-XII Intact, Oriented x3 - Psychiatric Exam Psychiatric exam: Anxious, Normal Affect - Skin Skin Exam: Dry, Intact, Normal Color, Warm Assessment and Plan - Assessment and Plan (Free Text) Assessment: Assessment: 26 year old female with past medical history of seizure disorder, HTN, uncontrolled DM, gastroperesis 2/2 DM, iron deficiency anemia is admitted to hospital for seizures. 1. Seizures: No seizures overnight Continue IV Keppra 500 mg BID Ativan 1 mg IVP q6 PRN for breakthrough seizure Ativan 1mg IV q2h prn anxiety Neuro consulted-Dr. Triplett, help appreciated. Started on Lamictal 25mg PO BID on 10/22. Sseizure precautions Prolactin level post seizure activity on 10/22 is 129.2 (on admission 239.7) Obtain MRI of brain without contrast- patient currently refusing 2. Gastroperesis Not improving Consulted GI Dr Licona- help appreciated. Recommends endoscopy but not at this time due to symptoms. 10/23 Abdomen flat plate- Paucity of bowel gas as above. No suspect high-grade obstruction. . No dilated bowel loops with air-fluid levels suggested. Moderate left colonic stool retention. f/u complete abdominal US CT abd/pelvis showed moderate diffuse constipation and prominent B/L ovaries--> f/u pelvic US showed prominent endometrium. Advance diet as tolerated Protonix 40 mg IV daily Zofran and reglan prn for nausea Adjusting medications for better sugar control IVF NS @100cc/hr PICC line ordered due to poor venous access 3. Hyponatremia Resolved 10/23 Na+ 135 10/22 Na+ 128 f/u urine Na, urine osmolality and serum osmolality IVF NS @100cc/hr 4. HTN Remains elevated due to patient non-compliance, refusing to take oral medications Start Hydralazine 10mg IV q6h prn SBP>160 Norvasc 10mg PO daily Lisinopril 20mg PO daily Lopressor 50mg PO BID Monitor vitals q4h 5. Uncontrolled DM Admitted for hyperglycemia causing complications Consulted Dr Greta Mcgill ([employer])- help appreciated. Will adjust medications. Currently on ISS Accuchecks Novolog 10u SC AC Lantus 24u SC HS HgA1C is 9.2 IVF NS @100cc/hr 6. CKD Improved, BUN/Cr 14/1.5 GFR 30-40 Stable Continue IVF and monitor CMP daily 7. Leukocytosis f/u CBC today, afebrile >24 hours 10/23 WBC 23.1, febrile 100.3F f/u blood culture and urine culture on 10/23 Cont Rocephin 1gm IV daily 10/16 blood culture and urine cx negative 8. Depression Psych consulted Dr New- help appreciated Started on Zoloft and Trazadone daily per psych on 10/21- medications currently on HOLD due to decreasing seizure threshold Currently denies SI/HI Ativan 1mg IV q2h prn anxiety 9. Anemia Continue iron supplements Hgb stable 9. Prophlactic measures Protonix 40mg IV daily SCD[facility] Heparin 5000u SC Case discussed with attending, Dr. Wise <Dmitriy Wise - Last Filed: 10/25/16 15:24> Objective - Vital Signs/Intake and Output Vital Signs (last 24 hours): Temp Pulse Resp BP Pulse Ox 98.8 F 80 18 143/95 H 96 10/25/16 10:00 10/25/16 10:00 10/25/16 10:00 10/25/16 10:00 10/25/16 10:00 Intake and Output: 10/25/16 10/25/16 06:59 18:59 Intake Total 3970 Balance 3970 - Medications Medications: Current Medications Acetaminophen (Tylenol 325mg Tab) 650 mg PO Q6H PRN PRN Reason: Pain, Mild (1-3) Amlodipine Besylate (Norvasc) 10 mg PO DAILY [facility] Last Admin: 10/24/16 11:00 Dose: Not Given Cyanocobalamin (Vitamin B12 1000 Mcg Tab) 1,000 mcg PO DAILY [facility] Last Admin: 10/24/16 10:00 Dose: Not Given Diphenhydramine HCl (Benadryl) 25 mg IVP Q8H PRN PRN Reason: Agitation Ferrous Sulfate (Feosol) 325 mg PO BID [facility] Last Admin: 10/24/16 11:00 Dose: Not Given Heparin Sodium (Porcine) (Heparin) 5,000 units SC Q12 [facility] Last Admin: 10/25/16 09:18 Dose: 5,000 units Hydralazine HCl (Apresoline) 10 mg IVP Q6H PRN PRN Reason: Systolic Blood Pressure Last Admin: 10/24/16 15:03 Dose: 10 mg Levetiracetam 500 mg/ Sodium (Chloride) 105 mls @ 420 mls/hr IVPB Q12H [facility] Last Admin: 10/25/16 09:17 Dose: 420 mls/hr Ceftriaxone Sodium 1 gm/ (Sodium Chloride) 100 mls @ 100 mls/hr IVPB DAILY [facility] Last Admin: 10/25/16 09:17 Dose: 100 mls/hr Insulin Aspart (Novolog) 0 unit SC ACHS [facility] PRN Reason: Protocol Last Admin: 10/25/16 11:35 Dose: Not Given Insulin Aspart (Novolog) 4 unit SC AC [facility] Last Admin: 10/25/16 11:35 Dose: Not Given Insulin Glargine (Lantus) 8 unit SC HS [facility] Lamotrigine (Lamictal) 25 mg PO BID [facility] Last Admin: 10/25/16 09:19 Dose: 25 mg Lisinopril (Zestril) 20 mg PO DAILY [facility] Last Admin: 10/24/16 11:00 Dose: Not Given Lorazepam (Ativan) 1 mg IVP Q6H PRN PRN Reason: Seizure activity Last Admin: 10/25/16 09:49 Dose: 1 mg Lorazepam (Ativan) 0.5 mg IVP Q2H PRN PRN Reason: Anxiety Last Admin: 10/25/16 04:47 Dose: 0.5 mg Metoclopramide HCl (Reglan) 10 mg IVP Q8H [facility] Stop: 10/27/16 14:00 Last Admin: 10/25/16 09:19 Dose: 10 mg Metoprolol Tartrate (Lopressor) 50 mg PO BID [facility] Last Admin: 10/24/16 11:00 Dose: Not Given Metoprolol Tartrate (Lopressor) 5 mg IVP Q6H [facility] Last Admin: 10/25/16 10:55 Dose: Not Given Ondansetron HCl (Zofran Inj) 4 mg IVP Q6H PRN PRN Reason: Nausea/Vomiting Last Admin: 10/25/16 04:33 Dose: 4 mg Pantoprazole Sodium (Protonix Inj) 40 mg IVP DAILY [facility] Last Admin: 10/25/16 09:18 Dose: 40 mg Sertraline HCl (Zoloft) 100 mg PO DAILY [facility] Thiamine HCl (Vitamin B1 Tab) 100 mg PO DAILY [facility] Last Admin: 10/24/16 11:00 Dose: Not Given Trazodone HCl (Desyrel) 100 mg PO HS [facility] - Labs Labs: 10/24/16 21:12 10/24/16 08:13 APTT 27 SECONDS (21-34) 10/17/16 06:22 Attending/Attestation - Attestation I have personally seen and examined this patient.: Yes I have fully participated in the care of the patient.: Yes I have reviewed all pertinent clinical information, including history, physical exam and plan: Yes Notes (Text): 10/25/16 15:23 Patient was seen and examined at bedside Complains of for abdominal pain but patient does not appear to be in any acute distress No further episodes of seizures Continue management of for seizures, depression and diabetic gastroparesis I discussed the plan of care with the resident and agree with the assessment and plan documented.
[2016-10-24 08:47] LABS: ALB/GLOB RATIO 0.8 (1.0-2.1); CALCIUM 7.8 mg/dl (8.6-10.4)
[2016-10-24 08:48] LABS: MAGNESIUM 1.8 mg/dL (1.6-2.3)
[2016-10-24 08:57] LABS: FSH 3.8 mIU/mL
[2016-10-24 08:58] LABS: T4 8.02 ug/dL (5.5-11.0)
--- NOTE | 2016-10-24 09:06 | US ---
Abdominal ultrasound History: Vomiting. Evaluate for cholecystitis. Comparison: CT scan dated 10/16/2016 Technique: Real-time sonography was performed through the abdomen. Findings: Liver: 16.2 centimeters in length. Diffuse increased echogenicity of the hepatic parenchymal cortex suggestive for fatty infiltration versus hepatic parenchymal disease. Gallbladder: Cholelithiasis. Normal wall thickness of 1.8 millimeters. No gross wall edema. Negative sonographic Brice's sign. Common bile duct measures 3.8 millimeters, within normal limits. Visualized portions of the pancreas are preserved. Pancreatic tail not well visualized. Spleen measures 9.3 centimeters in length, within normal limits. Visualized aorta and IVC are preserved. Right kidney: 12.2 x 4.7 x 5.6 centimeters. No calculi or hydronephrosis. Left Kidney: 11.3 x 5.7 x 5.6 centimeters. Mild fullness versus mild hydronephrosis of the left renal collecting system. Few punctate scattered echogenic foci in the left kidney which may represent calculi; for example, 5, 5, and 3 millimeter punctate echogenic foci are noted within the left kidney. Impression: Cholelithiasis without evidence of gross wall thickening or edema. Negative sonographic Brice's sign. Diffuse increased echogenicity of the hepatic parenchymal cortex suggestive for fatty infiltration versus hepatic parenchymal disease. Clinical correlation. Mild fullness versus mild hydronephrosis of the left renal collecting system. Punctate echogenic foci noted within the left kidney which may represent calculi.
[2016-10-24 09:41] LABS: CORTISOL AM 7.8 ug/dL (4.46-22.7)
[2016-10-24] MEDS ORDERED: Potassium Chloride 20 mEq ER Tab PO ONE (10:00)
[2016-10-24] MEDS: levETIRAcetam 500 MG in Sodium Chloride 0.9% 100 ML IVPB SCH ×2 (12:00→21:25)
--- NOTE | 2016-10-24 12:20 | RAD ---
HISTORY: verify right PICC COMPARISON: 10/16/2016 FINDINGS: LUNGS: No active pulmonary disease. PLEURA: Normal heart size. New right PICC catheter terminates at the level of the cavoatrial junction. CARDIOVASCULAR: Normal. OSSEOUS STRUCTURES: No significant abnormalities. VISUALIZED UPPER ABDOMEN: Normal. OTHER FINDINGS: None. IMPRESSION: Right PICC catheter terminates at cavoatrial junction level.
[2016-10-24] MEDS ORDERED: Metoprolol 1 mg/ml Inj IVP SCH (13:45)
--- NOTE | 2016-10-24 14:08 | CP.PCM.PN ---
Subjective - Date & Time of Evaluation Date of Evaluation: 10/24/16 Time of Evaluation: 13:45 - Subjective Subjective: F/U GI service for vomiting. RN is present. Pt reports feels same nausea and vomiting. Not able to eat. No BM Denies chills, SZ, diarhea, RB, melena, hematuria, dysuria, cough Objective - Vital Signs/Intake and Output Vital Signs (last 24 hours): Temp Pulse Resp BP Pulse Ox 98.7 F 108 H 20 175/93 H 97 10/24/16 07:00 10/24/16 07:00 10/24/16 07:00 10/24/16 07:00 10/24/16 07:00 Intake and Output: 10/24/16 10/24/16 06:59 18:59 Intake Total 1280 Balance 1280 - Medications Medications: Current Medications Acetaminophen (Tylenol 325mg Tab) 650 mg PO Q6H PRN PRN Reason: Pain, Mild (1-3) Amlodipine Besylate (Norvasc) 10 mg PO DAILY [facility] Last Admin: 10/23/16 10:23 Dose: 10 mg Cyanocobalamin (Vitamin B12 1000 Mcg Tab) 1,000 mcg PO DAILY [facility] Last Admin: 10/23/16 10:24 Dose: 1,000 mcg Diphenhydramine HCl (Benadryl) 25 mg IVP Q8H PRN PRN Reason: Agitation Ferrous Sulfate (Feosol) 325 mg PO BID [facility] Last Admin: 10/23/16 19:25 Dose: 325 mg Heparin Sodium (Porcine) (Heparin) 5,000 units SC Q12 [facility] Last Admin: 10/24/16 12:01 Dose: 5,000 units Hydralazine HCl (Apresoline) 10 mg IVP Q6H PRN PRN Reason: Systolic Blood Pressure Levetiracetam 500 mg/ Sodium (Chloride) 105 mls @ 420 mls/hr IVPB Q12H [facility] Last Admin: 10/24/16 12:00 Dose: 420 mls/hr Sodium Chloride (Sodium Chloride 0.9%) 1,000 mls @ 100 mls/hr IV .Q10H [facility] Last Admin: 10/24/16 06:50 Dose: 100 mls/hr Ceftriaxone Sodium 1 gm/ (Sodium Chloride) 100 mls @ 100 mls/hr IVPB DAILY [facility] Last Admin: 10/24/16 10:00 Dose: 100 mls/hr Potassium Chloride (Potassium Chloride 20 Meq/100 Ml) 20 meq in 100 mls @ 50 mls/hr IVPB Q2H [facility] Stop: 10/24/16 17:59 Insulin Aspart (Novolog) 10 unit SC AC [facility] Last Admin: 10/24/16 12:34 Dose: Not Given Insulin Aspart (Novolog) 0 unit SC ACHS [facility] PRN Reason: Protocol Last Admin: 10/24/16 12:35 Dose: Not Given Insulin Glargine (Lantus) 24 unit SC HS [facility] Last Admin: 10/23/16 22:15 Dose: 24 unit Lamotrigine (Lamictal) 25 mg PO BID [facility] Last Admin: 10/23/16 19:25 Dose: 25 mg Lisinopril (Zestril) 20 mg PO DAILY [facility] Last Admin: 10/23/16 10:23 Dose: 20 mg Lorazepam (Ativan) 1 mg IVP Q6H PRN PRN Reason: Seizure activity Last Admin: 10/23/16 13:26 Dose: 1 mg Lorazepam (Ativan) 0.5 mg IVP Q2H PRN PRN Reason: Anxiety Last Admin: 10/24/16 08:41 Dose: 0.5 mg Metoclopramide HCl (Reglan) 5 mg IVP Q8H PRN PRN Reason: Nausea/Vomiting Last Admin: 10/23/16 12:44 Dose: 5 mg Metoprolol Tartrate (Lopressor) 50 mg PO BID [facility] Last Admin: 10/23/16 17:00 Dose: Not Given Metoprolol Tartrate (Lopressor) 5 mg IVP Q8H [facility] Ondansetron HCl (Zofran Inj) 4 mg IVP Q6H PRN PRN Reason: Nausea/Vomiting Last Admin: 10/24/16 08:39 Dose: 4 mg Pantoprazole Sodium (Protonix Inj) 40 mg IVP DAILY [facility] Last Admin: 10/24/16 12:50 Dose: 40 mg Sertraline HCl (Zoloft) 100 mg PO DAILY [facility] Thiamine HCl (Vitamin B1 Tab) 100 mg PO DAILY [facility] Last Admin: 10/23/16 10:24 Dose: 100 mg Trazodone HCl (Desyrel) 100 mg PO [facility] - Labs Labs: 10/23/16 14:35 10/24/16 08:13 APTT 27 SECONDS (21-34) 10/17/16 06:22 - Constitutional Appears: Non-toxic - Neck Exam Neck Exam: absent: Tenderness - Respiratory Exam Respiratory Exam: Clear to Ausculation Bilateral - Cardiovascular Exam Cardiovascular Exam: RRR - GI/Abdominal Exam GI & Abdominal Exam: Soft, Normal Bowel Sounds. absent: Firm, Guarding, Tenderness, Mass, Rebound - Extremities Exam Extremities Exam: absent: Pedal Edema - Neurological Exam Neurological Exam: Alert, Oriented x3 Assessment and Plan (1) ARF (acute renal failure) Assessment & Plan: Improving Status: Acute (2) Anemia Status: Acute (3) Diabetic gastroparesis Status: Acute (4) Hyperglycemia Status: Acute (5) Hyperosmolar (nonketotic) coma Assessment & Plan: Treated Status: Acute (6) Seizure Status: Acute (7) Vomiting Assessment & Plan: May be related to recent hyperglycemia, and hyperosmolar state. Glucose has been erratic- 490 to 3o. U/A has ketones. Also has had constipation. Consider ketosis and DM gastroparesis.Sono shows GB stones but no fluid or wall thickening. REC: IV PPI BID, check KUB. Reglan. Treat constpation. Consider EGD when medically stable. Status: Acute (8) Cholelithiasis Status: Acute
[2016-10-24] MEDS ORDERED: POLYETHYLENE GLYCOL 3350 17 GM/Dose PACKET PO ONE (16:00)
[2016-10-24] MEDS: Metoprolol 1 mg/ml Inj IVP SCH ×2 (17:57→22:23)
[2016-10-24 21:17] LABS: BASO % 0.5 % (0.0-2.0); EOS % 0.1 % (0.0-4.0); HEMOGLOBIN 8.4 g/dL (11.0-16.0); LYMPH # 2.3 K/uL (1.0-4.3); LYMPH % 24.9 % (20.0-40.0); MEAN CELL VOLUME 86.8 fL (81.0-99.0); MEAN CORPUSCULAR HEMOGLOBIN 28.1 pg (27.0-31.0); MEAN CORPUSCULAR HGB CONC 32.3 g/dL (33.0-37.0); MEAN PLATELET VOLUME 9.6 fL (7.2-11.7); MONO # 0.6 K/uL (0.0-0.8); MONO % 6.6 % (0.0-10.0); NEUT # 6.3 K/uL (1.8-7.0); NEUT % 67.9 % (50.0-75.0); RED CELL DISTRIBUTION WIDTH 14.8 % (11.5-14.5)
[2016-10-24 21:20] LABS: WHITE BLOOD COUNT 9.3 K/uL (4.8-10.8)
[2016-10-24] MEDS: (Lantus) Insulin Glargine, Recombinant SC SCH (21:24)
[2016-10-25] MEDS: Sodium Chloride 0.9% 1,000 ML IV SCH ×3 (00:23→19:39)
[2016-10-25] MEDS: Metoprolol 1 mg/ml Inj IVP SCH ×4 (04:23→21:37)
[2016-10-25] MEDS ORDERED: Dextrose 50% SYRINGE Inj (50 ml) IV STA (06:14)
--- NOTE | 2016-10-25 08:21 | CP.PCM.PN ---
Subjective - Date & Time of Evaluation Date of Evaluation: 10/25/16 Time of Evaluation: 08:18 - Subjective Subjective: CC: Follow up abdominal pain Could not tolerate liquids. C/O nausea, sharp burning epigastric discomfort. reglan PRN only Objective - Vital Signs/Intake and Output Vital Signs (last 24 hours): Temp Pulse Resp BP Pulse Ox 98.4 F 80 20 138/84 99 10/25/16 04:10 10/25/16 04:10 10/25/16 04:10 10/25/16 04:10 10/25/16 04:10 Intake and Output: 10/25/16 10/25/16 06:59 18:59 Intake Total 3970 Balance 3970 - Medications Medications: Current Medications Acetaminophen (Tylenol 325mg Tab) 650 mg PO Q6H PRN PRN Reason: Pain, Mild (1-3) Amlodipine Besylate (Norvasc) 10 mg PO DAILY [facility] Last Admin: 10/24/16 11:00 Dose: Not Given Cyanocobalamin (Vitamin B12 1000 Mcg Tab) 1,000 mcg PO DAILY [facility] Last Admin: 10/24/16 10:00 Dose: Not Given Diphenhydramine HCl (Benadryl) 25 mg IVP Q8H PRN PRN Reason: Agitation Ferrous Sulfate (Feosol) 325 mg PO BID [facility] Last Admin: 10/24/16 11:00 Dose: Not Given Heparin Sodium (Porcine) (Heparin) 5,000 units SC Q12 [facility] Last Admin: 10/24/16 21:25 Dose: 5,000 units Hydralazine HCl (Apresoline) 10 mg IVP Q6H PRN PRN Reason: Systolic Blood Pressure Last Admin: 10/24/16 15:03 Dose: 10 mg Levetiracetam 500 mg/ Sodium (Chloride) 105 mls @ 420 mls/hr IVPB Q12H [facility] Last Admin: 10/24/16 21:25 Dose: 420 mls/hr Sodium Chloride (Sodium Chloride 0.9%) 1,000 mls @ 100 mls/hr IV .Q10H [facility] Last Admin: 10/25/16 00:23 Dose: 100 mls/hr Ceftriaxone Sodium 1 gm/ (Sodium Chloride) 100 mls @ 100 mls/hr IVPB DAILY [facility] Last Admin: 10/24/16 10:00 Dose: 100 mls/hr Insulin Aspart (Novolog) 0 unit SC ACHS [facility] PRN Reason: Protocol Last Admin: 10/24/16 21:34 Dose: Not Given Insulin Aspart (Novolog) 4 unit SC AC [facility] Insulin Glargine (Lantus) 14 unit SC HS [facility] Lamotrigine (Lamictal) 25 mg PO BID [facility] Last Admin: 10/24/16 17:40 Dose: Not Given Lisinopril (Zestril) 20 mg PO DAILY [facility] Last Admin: 10/24/16 11:00 Dose: Not Given Lorazepam (Ativan) 1 mg IVP Q6H PRN PRN Reason: Seizure activity Last Admin: 10/23/16 13:26 Dose: 1 mg Lorazepam (Ativan) 0.5 mg IVP Q2H PRN PRN Reason: Anxiety Last Admin: 10/25/16 04:47 Dose: 0.5 mg Metoclopramide HCl (Reglan) 10 mg IVP Q8H PRN PRN Reason: Nausea/Vomiting Metoprolol Tartrate (Lopressor) 50 mg PO BID [facility] Last Admin: 10/24/16 11:00 Dose: Not Given Metoprolol Tartrate (Lopressor) 5 mg IVP Q6H [facility] Last Admin: 10/25/16 04:23 Dose: 5 mg Ondansetron HCl (Zofran Inj) 4 mg IVP Q6H PRN PRN Reason: Nausea/Vomiting Last Admin: 10/25/16 04:33 Dose: 4 mg Pantoprazole Sodium (Protonix Inj) 40 mg IVP DAILY [facility] Last Admin: 10/24/16 12:50 Dose: 40 mg Sertraline HCl (Zoloft) 100 mg PO DAILY [facility] Thiamine HCl (Vitamin B1 Tab) 100 mg PO DAILY [facility] Last Admin: 10/24/16 11:00 Dose: Not Given Trazodone HCl (Desyrel) 100 mg PO [facility] - Labs Labs: 10/24/16 21:12 10/24/16 08:13 APTT 27 SECONDS (21-34) 10/17/16 06:22 - Constitutional Appears: Other (Acutely ill, weak) - Head Exam Head Exam: NORMOCEPHALIC - Eye Exam Eye Exam: absent: Scleral icterus - Respiratory Exam Respiratory Exam: NORMAL BREATHING PATTERN - Cardiovascular Exam Cardiovascular Exam: REGULAR RHYTHM - GI/Abdominal Exam GI & Abdominal Exam: Soft. absent: Tenderness, Organomegaly Assessment and Plan (1) Diabetic gastroparesis Assessment & Plan: Abdominal pain and nausea, uncontrolled Diabetes Rec: Standing order Reglan. PPI. No need for EGD at this time Status: Acute (2) Uncontrolled diabetes mellitus Assessment & Plan: Management per Medicine and Endocrinology Status: Acute
[2016-10-25] MEDS: (Novolog) Insulin Aspart, Recombinant 100 u/ml 10 ml vial SC SCH ×7 (08:48→21:39)
[2016-10-25] MEDS: levETIRAcetam 500 MG in Sodium Chloride 0.9% 100 ML IVPB SCH ×2 (09:17→21:36)
[2016-10-25] MEDS: (Lantus) Insulin Glargine, Recombinant SC SCH (21:47)
[2016-10-25] MEDS ORDERED: (Lantus) Insulin Glargine, Recombinant SC SCH (22:00)
[2016-10-26] MEDS: Metoprolol 1 mg/ml Inj IVP SCH ×4 (03:46→22:30)
[2016-10-26 08:14] LABS: HEMOGLOBIN 8.9 g/dL (11.0-16.0); MEAN CELL VOLUME 86.3 fL (81.0-99.0); MEAN CORPUSCULAR HEMOGLOBIN 28.6 pg (27.0-31.0); MEAN CORPUSCULAR HGB CONC 33.2 g/dL (33.0-37.0); MEAN PLATELET VOLUME 9.9 fL (7.2-11.7); RBC 3.11 Mil/uL (3.80-5.20); RED CELL DISTRIBUTION WIDTH 14.3 % (11.5-14.5); WHITE BLOOD COUNT 5.7 K/uL (4.8-10.8)
[2016-10-26] MEDS: (Novolog) Insulin Aspart, Recombinant 100 u/ml 10 ml vial SC SCH ×7 (08:23→22:51)
[2016-10-26 08:50] LABS: ALBUMIN 1.9 g/dL (3.5-5.0)
[2016-10-26 08:53] LABS: ALB/GLOB RATIO 0.8 (1.0-2.1); CALCIUM 7.8 mg/dl (8.6-10.4)
[2016-10-26] MEDS: levETIRAcetam 500 MG in Sodium Chloride 0.9% 100 ML IVPB SCH ×2 (09:39→22:48)
[2016-10-26] MEDS: DiphenhydrAMINE 50 mg/ml Inj IVP PRN (11:23)
[2016-10-26] MEDS ORDERED: Potassium Chloride 20 mEq ER Tab PO ONE (15:51)
[2016-10-26] MEDS: Sodium Chloride 0.9% 1,000 ML IV SCH (16:46)
[2016-10-26] MEDS: (Lantus) Insulin Glargine, Recombinant SC SCH (22:44)
[2016-10-27] MEDS: DiphenhydrAMINE 50 mg/ml Inj IVP PRN (01:50)
[2016-10-27] MEDS: Metoprolol 1 mg/ml Inj IVP SCH ×3 (05:01→17:35)
[2016-10-27] MEDS: Sodium Chloride 0.9% 1,000 ML IV SCH (05:11)
[2016-10-27 07:31] LABS: ALBUMIN 1.9 g/dL (3.5-5.0)
[2016-10-27 07:35] LABS: ALB/GLOB RATIO 0.8 (1.0-2.1); CALCIUM 7.7 mg/dl (8.6-10.4)
[2016-10-27] MEDS: (Novolog) Insulin Aspart, Recombinant 100 u/ml 10 ml vial SC SCH ×6 (07:49→16:55)
[2016-10-27 08:01] LABS: BASO % 0.6 % (0.0-2.0); EOS # 0.1 K/uL (0.0-0.7); EOS % 1.8 % (0.0-4.0); HEMOGLOBIN 8.9 g/dL (11.0-16.0); LYMPH # 2.7 K/uL (1.0-4.3); LYMPH % 35.1 % (20.0-40.0); MEAN CELL VOLUME 86.3 fL (81.0-99.0); MEAN CORPUSCULAR HEMOGLOBIN 28.5 pg (27.0-31.0); MEAN PLATELET VOLUME 9.8 fL (7.2-11.7); MONO # 0.6 K/uL (0.0-0.8); MONO % 7.6 % (0.0-10.0); NEUT # 4.2 K/uL (1.8-7.0); NEUT % 54.9 % (50.0-75.0); NRBC % 0.1 % (0.0-2.0); RBC 3.14 Mil/uL (3.80-5.20); RED CELL DISTRIBUTION WIDTH 14.1 % (11.5-14.5); WHITE BLOOD COUNT 7.7 K/uL (4.8-10.8)
--- NOTE | 2016-10-27 08:14 | CP.PCM.PN ---
Subjective - Date & Time of Evaluation Date of Evaluation: 10/27/16 Time of Evaluation: 09:45 - Subjective Subjective: PGY 2 Medicine Note- Dr. Cueva's service Pt seen and examined in no acute distress. Patient complained of a migraine headache that was not responding to tylenol administration. She states that she always gets the headaches on a daily basis. Patient has finally been able to tolerate a diet without nausea and vomiting. Patient denies subjective fevers or chills, nausea, vomiting, diarrhea, chest pain, palpitations, paresthesias at this time. Objective - Vital Signs/Intake and Output Vital Signs (last 24 hours): Temp Pulse Resp BP Pulse Ox 98.4 F 91 H 20 161/90 H 98 10/27/16 05:09 10/27/16 04:56 10/27/16 04:56 10/27/16 04:56 10/27/16 04:56 Intake and Output: 10/27/16 10/27/16 06:59 18:59 Intake Total 1280 Balance 1280 - Medications Medications: Current Medications Acetaminophen (Tylenol 325mg Tab) 650 mg PO Q6H PRN PRN Reason: Pain, Mild (1-3) Last Admin: 10/27/16 05:09 Dose: 650 mg Amlodipine Besylate (Norvasc) 10 mg PO DAILY [facility] Last Admin: 10/24/16 11:00 Dose: Not Given Cyanocobalamin (Vitamin B12 1000 Mcg Tab) 1,000 mcg PO DAILY [facility] Last Admin: 10/24/16 10:00 Dose: Not Given Dicyclomine HCl (Bentyl) 20 mg PO Q8 PRN PRN Reason: abd. pain Diphenhydramine HCl (Benadryl) 25 mg IVP Q8H PRN PRN Reason: Agitation Last Admin: 10/27/16 01:50 Dose: 25 mg Ferrous Sulfate (Feosol) 325 mg PO BID [facility] Last Admin: 10/24/16 11:00 Dose: Not Given Heparin Sodium (Porcine) (Heparin) 5,000 units SC Q12 [facility] Last Admin: 10/26/16 22:46 Dose: 5,000 units Hydralazine HCl (Apresoline) 10 mg IVP Q6H PRN PRN Reason: Systolic Blood Pressure Last Admin: 10/27/16 01:28 Dose: 10 mg Levetiracetam 500 mg/ Sodium (Chloride) 105 mls @ 420 mls/hr IVPB Q12H [facility] Last Admin: 10/26/16 22:48 Dose: 420 mls/hr Ceftriaxone Sodium 1 gm/ (Sodium Chloride) 100 mls @ 100 mls/hr IVPB DAILY [facility] Last Admin: 10/26/16 09:50 Dose: 100 mls/hr Sodium Chloride (Sodium Chloride 0.9%) 1,000 mls @ 100 mls/hr IV .Q10H [facility] Last Admin: 10/27/16 05:11 Dose: 100 mls/hr Insulin Aspart (Novolog) 0 unit SC ACHS [facility] PRN Reason: Protocol Last Admin: 10/27/16 07:49 Dose: Not Given Insulin Aspart (Novolog) 4 unit SC AC [facility] Last Admin: 10/26/16 18:26 Dose: 4 unit Insulin Glargine (Lantus) 8 unit SC HS [facility] Last Admin: 10/26/16 22:44 Dose: 8 units Lamotrigine (Lamictal) 25 mg PO BID [facility] Last Admin: 10/26/16 22:38 Dose: 25 mg Lisinopril (Zestril) 20 mg PO DAILY [facility] Last Admin: 10/24/16 11:00 Dose: Not Given Lorazepam (Ativan) 1 mg IVP Q6H PRN PRN Reason: Seizure activity Last Admin: 10/26/16 04:35 Dose: 1 mg Lorazepam (Ativan) 0.5 mg IVP Q2H PRN PRN Reason: Anxiety Last Admin: 10/27/16 00:15 Dose: 0.5 mg Metoclopramide HCl (Reglan) 10 mg IVP Q8H [facility] Stop: 10/27/16 14:00 Last Admin: 10/27/16 00:19 Dose: Not Given Metoprolol Tartrate (Lopressor) 50 mg PO BID [facility] Last Admin: 10/24/16 11:00 Dose: Not Given Metoprolol Tartrate (Lopressor) 5 mg IVP Q6H [facility] Last Admin: 10/27/16 05:01 Dose: 5 mg Ondansetron HCl (Zofran Inj) 4 mg IVP Q6H PRN PRN Reason: Nausea/Vomiting Last Admin: 10/25/16 19:40 Dose: 4 mg Sertraline HCl (Zoloft) 100 mg PO DAILY [facility] Thiamine HCl (Vitamin B1 Tab) 100 mg PO DAILY [facility] Last Admin: 10/24/16 11:00 Dose: Not Given Trazodone HCl (Desyrel) 100 mg PO HS [facility] Zolpidem Tartrate (Ambien) 5 mg PO HS [facility] Last Admin: 10/26/16 23:06 Dose: 5 mg - Labs Labs: 10/27/16 07:07 10/27/16 07:07 APTT 27 SECONDS (21-34) 10/17/16 06:22 - Constitutional Appears: Non-toxic, No Acute Distress - Head Exam Head Exam: ATRAUMATIC, NORMAL INSPECTION, NORMOCEPHALIC - Eye Exam Eye Exam: EOMI, Normal appearance, PERRL Pupil Exam: NORMAL ACCOMODATION - ENT Exam ENT Exam: Mucous Membranes Moist - Neck Exam Neck Exam: Full ROM - Respiratory Exam Respiratory Exam: Clear to Ausculation Bilateral. absent: Wheezes - Cardiovascular Exam Cardiovascular Exam: +S1, +S2 - GI/Abdominal Exam GI & Abdominal Exam: Soft, Normal Bowel Sounds - Extremities Exam Extremities Exam: Full ROM, Normal Capillary Refill. absent: Pedal Edema - Back Exam Back Exam: Full ROM - Neurological Exam Neurological Exam: Alert, Awake, Oriented x3 - Psychiatric Exam Psychiatric exam: Normal Affect, Normal Mood - Skin Skin Exam: Dry, Normal Color, Warm Assessment and Plan - Assessment and Plan (Free Text) Assessment: 1. Seizures: No seizures overnight Continue IV Keppra 500 mg BID Ativan 1 mg IVP Q6 PRN for breakthrough seizure Ativan 0.5 mg IV q2h prn anxiety Neuro consulted- Dr. Triplett, help appreciated. Started on Lamictal 25mg PO BID on 10/22. Seizure precautions Prolactin level post seizure activity on 10/22 is 129.2 (on admission 239.7) MRI of brain without contrast- patient refused Patient counseled on discontinuing use of cannabis in light of seizure disorder 2. Gastroparesis Mildly improved Consulted GI Dr Licona- help appreciated. Recommends endoscopy but not at this time due to symptoms. 10/23 Abdomen flat plate- Paucity of bowel gas as above. No suspect high-grade obstruction. . No dilated bowel loops with air-fluid levels suggested. Moderate left colonic stool retention. Abdominal US - Cholelithiasis w/o evidence of gross wall thickening or edema. Negative sonographic mir's sign CT abd/pelvis showed moderate diffuse constipation and prominent B/L ovaries--> f/u pelvic US showed prominent endometrium. Tolerating a diet. Continue to monitor. Protonix 40 mg IV BID Zofran and reglan prn for nausea Adjusting medications for better sugar control IVF NS @100cc/hr- Held due to elevated BP. Patient eating well. F/U PICC line access 3. Hyponatremia Resolved IVF NS @100cc/hr - Held for elevated BP 4. HTN Hydralazine 10mg IV q6h prn SBP>160 Norvasc 10mg PO daily Lisinopril 20mg PO daily Lopressor 50mg PO BID Monitor vitals q4h 5. Uncontrolled DM Admitted for hyperglycemia causing complications Consulted Dr Greta Mcgill (Project Economist)- help appreciated. Will adjust medications. Patient counseled on strict adherence to medication regiment at home Currently on ISS Accuchecks Novolog 10u SC AC Lantus 24u SC HS HgA1C is 9.2 IVF NS @100cc/hr 6. CKD Improving GFR 30-40 Stable Continue IVF and monitor CMP daily 7. Leukocytosis Resolved 10/23 WBC 23.1, febrile 100.3F blood culture and urine culture normal limits 10/16 blood culture and urine cx negative 8. Depression Psych consulted Dr New- help appreciated Started on Zoloft and Trazadone daily per psych on 10/21- medications currently on HOLD due to decreasing seizure threshold Currently denies SI/HI Ativan 1mg IV q2h prn anxiety 9. Anemia Continue iron supplements Hgb stable 10. Prophlactic measures Protonix 40mg BID IV daily SCDs Heparin 5000u SC Patient counseled on discontinuing use of cannabis in light of seizure disorder Patient improved and medically stable for discharge. Medical management and orders per Dr. Cueva.
[2016-10-27] MEDS: levETIRAcetam 500 MG in Sodium Chloride 0.9% 100 ML IVPB SCH (09:18)
[2016-10-27 16:04] VITALS: BP 155/93; PULSE 83; RESP 20; TEMP 98.3; O2SAT 98
[2016-10-27] MEDS ORDERED: (Lantus) Insulin Glargine, Recombinant SC SCH (22:00)
--- NOTE | 2016-10-29 08:30 | CARD ---
APPROVED REPORT EKG Measurement Heart [id number] MI 140P35 [id number] <Conclusion> Normal sinus rhythm Cannot rule out Anterior infarct, age undetermined Abnormal ECG
== END 2016-10-27 18:43 | disposition home or self-care (01) | DRG 566 ==
LOC: C.ER 08:03 → C.9E 12:11 → C.9I 16:25 → C.9E 17:46 → C.9I 20:26 → C.3T 10-21 05:10 → C.6T 10-22 14:26
PROVIDERS: ADMIT Internal Medicine Pulmonary Disease; ATTEND Internal Medicine Pulmonary Disease
PROC: 02HV33Z Insertion of Infusion Device into Superior Vena Cava, Percutaneous Approach (ICD-10-PCS; principal; 2016-10-24)
PROC: B548ZZA Ultrasonography of Superior Vena Cava, Guidance (ICD-10-PCS; 2016-10-24)
PROC: 3E0336Z Introduction of Nutritional Substance into Peripheral Vein, Percutaneous Approach (ICD-10-PCS; 2016-10-24)
DX: E11.00 Type 2 diabetes mellitus with hyperosmolarity without nonketotic hyperglycemic-hyperosmolar coma (NKHHC) (principal); N17.9 Acute kidney failure, unspecified; E87.2 Acidosis; E11.43 Type 2 diabetes mellitus with diabetic autonomic (poly)neuropathy; K31.84 Gastroparesis; N30.00 Acute cystitis without hematuria; E86.0 Dehydration; F33.1 Major depressive disorder, recurrent, moderate; E11.22 Type 2 diabetes mellitus with diabetic chronic kidney disease; N18.9 Chronic kidney disease, unspecified; G40.909 Epilepsy, unspecified, not intractable, without status epilepticus; E87.1 Hypo-osmolality and hyponatremia; I12.9 Hypertensive chronic kidney disease with stage 1 through stage 4 chronic kidney disease, or unspecified chronic kidney disease; D50.9 Iron deficiency anemia, unspecified; E11.65 Type 2 diabetes mellitus with hyperglycemia; J45.909 Unspecified asthma, uncomplicated; G43.909 Migraine, unspecified, not intractable, without status migrainosus; K59.09 Other constipation; K29.70 Gastritis, unspecified, without bleeding; K80.20 Calculus of gallbladder without cholecystitis without obstruction; M43.06 Spondylolysis, lumbar region; F12.90 Cannabis use, unspecified, uncomplicated; F41.1 Generalized anxiety disorder; Z79.4 Long term (current) use of insulin; Z91.19 Patient's noncompliance with other medical treatment and regimen

== ENCOUNTER 2016-10-28 11:14 | Inpatient (IN) | payer MEDICAID ==
[2016-10-28 11:14] VITALS: BMI 27.3
[2016-10-28] MEDS ORDERED: Sodium Chloride 0.9% 1,000 ML ONE (11:41)
[2016-10-28] MEDS ORDERED: Sodium Chloride 0.9% 500 ML IV ONE (12:07)
--- NOTE | 2016-10-28 12:10 | C.PDOC ---
History Of Present Illness 26 y/o female, history of IDDM, hypertension, gastroporesis, seen and admitted to hospital on 10/16 and was discharged yesterday. Mother did not give seizure medication yesterday due t misunderstanding between trade and generic names of medications. Since 4 AM, patient with 2 seizures at home, multiple episodes of vomiting, and complains of abdominal pain. mother sts no falls or trauma during seizures, no associated injuries. 1 seizure witnessed in ER. Patient initially post-ictal, then complaining of pain "everywhere". Time Seen by Provider: 10/28/16 11:29 Chief Complaint (Nursing): Seizure History Per: Patient History/Exam Limitations: no limitations Recent Seizure Activity Began: Mins Ago: Number Of Seizures: Multiple Length Of Seizures (Duration): Seconds Quality Of Seizure: Generalized Precipitating Factor(s): Recent Change In Medication Or Dose Post-ictal Period: Yes Recent travel outside of the [place]: No Past Medical History Reviewed: Historical Data, Nursing Documentation, Vital Signs Vital Signs: Last Vital Signs Temp 99.2 F 10/28/16 11:20 Pulse 102 H 10/28/16 14:19 Resp 18 10/28/16 14:19 BP 140/87 10/28/16 14:19 Pulse Ox 98 10/28/16 15:42 - Medical History PMH: Diabetes, HTN, Seizures Family History: States: Unknown Family Hx - Social History Hx Alcohol Use: No Hx Substance Use: No - Immunization History Hx Tetanus Toxoid Vaccination: No Hx Influenza Vaccination: Yes Hx Pneumococcal Vaccination: No Review Of Systems Except As Marked, All Systems Reviewed And Found Negative. Constitutional: Negative for: Fever, Chills Cardiovascular: Negative for: Chest Pain, Palpitations Respiratory: Negative for: Cough, Shortness of Breath, Wheezing Gastrointestinal: Positive for: Vomiting, Abdominal Pain Genitourinary: Negative for: Dysuria Skin: Negative for: Rash Neurological: Positive for: Seizures. Negative for: Headache, Dizziness Physical Exam - Physical Exam Appears: Non-toxic, No Acute Distress, Other (unwell) Skin: Warm, Dry Head: Atraumatic, Normacephalic Eye(s): bilateral: Normal Inspection, PERRL, EOMI Oral Mucosa: Moist Throat: Normal, No Erythema, No Exudate Neck: Supple Chest: Symmetrical, No Tenderness Cardiovascular: Rhythm Regular (tachycardic) Respiratory: Normal Breath Sounds, No Rales, No Rhonchi, No Wheezing Gastrointestinal/Abdominal: Bowel Sounds (hyperactive ), Soft, Tenderness ( diffuse), No Distention, No Guarding, No Rebound Back: Normal Inspection Extremity: Normal ROM, Capillary Refill (< 2 sec.) Neurological/Psych: Oriented x3, Normal Speech, Normal Cognition ED Course And Treatment - Laboratory Results Result Diagrams: 10/28/16 12:24 10/28/16 12:24 O2 Sat by Pulse Oximetry: 98 (RA) Pulse Ox Interpretation: Normal Progress Note: Pepcid, Ativan, Reglan, IVFs. Labs ordered and reviewed. Medical Decision Making Medical Decision Making: pt vomiting on arrival; pepcid and reglan given.. pt c/o diffuse abdominal pain ; asking for pain medication. pt has another ?seizure in ED lasting few seconds , with brief post ictal state. pt then vomited some more, and had another brief seizure. pt given 2 mg ativan ivp. pt calm, sleeping; bp decreaed from 210 /139 to 170/105 with no medicaiton, then down to 135/82 after some labetalol. 335 pm pt alert and awake; requested juice and pain medication for burning abdominal pain. pt given ice chips, maalox ordered. after several ice chips, pt began vomiting again. will d/c maalox, zofran and protonix ordered. discussed with Dr Cueva; will admit to his service. Disposition Discussed With : Belle Cueva Doctor Will See Patient In The: Hospital - Disposition Disposition Time: 15:39 Condition: SERIOUS - Clinical Impression Clinical Impression: Seizure, Gastroparesis, Diabetes mellitus - PA / CALENDAR CONTROL CLERK BLOOD BANK / Resident Statement MD/DO has reviewed & agrees with the documentation as recorded. - Scribe Statement The provider has reviewed the documentation as recorded by the Scribe Emmanuel Jones All medical record entries made by the Monoibe were at my direction and personally dictated by me. I have reviewed the chart and agree that the record accurately reflects my personal performance of the history, physical exam, medical decision making, and the department course for this patient. I have also personally directed, reviewed, and agree with the discharge instructions and disposition. Decision To Admit - Pt Status Changed To: Hospital Disposition Of: Inpatient - Admit Certification Admit to Inpatient:: After my assessment, the patient will require hospitalization for at least two midnights. This is because of the severity of symptoms shown, intensity of services needed, and/or the medical risk in this patient being treated as an outpatient. - InPatient: Physician Admission Certification: I certify that this patient requires 2 or more midnights of care for the following reason:: for blood sugar control, cessation of vomiting and seizures. - . Bed Request Type: Regular Admitting Physician: Belle Cueva Patient Diagnosis: Seizure, Gastroparesis, Diabetes mellitus
--- NOTE | 2016-10-28 12:14 | C.PDOC ---
Time Seen by Provider: 10/28/16 11:29 Chief Complaint (Nursing): Seizure Past Medical History Vital Signs: Last Vital Signs Temp 99.2 F 10/28/16 11:20 Pulse 122 H 10/28/16 11:20 Resp 18 10/28/16 11:20 BP 200/119 H 10/28/16 11:20 Pulse Ox 98 10/28/16 11:20 - Medical History PMH: Diabetes, HTN, Seizures Denies: Chronic Kidney Disease - Social History Hx Alcohol Use: No Hx Substance Use: No - Immunization History Hx Tetanus Toxoid Vaccination: No Hx Influenza Vaccination: Yes Hx Pneumococcal Vaccination: No ED Course And Treatment O2 Sat by Pulse Oximetry: 98
[2016-10-28] MEDS ORDERED: Labetalol 25mg/5ml Syringe IVP STA ×2 (12:17→12:59)
[2016-10-28 12:31] LABS: BASO # 0.1 K/uL (0.0-0.2); EOS # 0.1 K/uL (0.0-0.7); EOS % 0.7 % (0.0-4.0); HEMOGLOBIN 10.8 g/dL (11.0-16.0); LYMPH # 1.6 K/uL (1.0-4.3); LYMPH % 20.6 % (20.0-40.0); MEAN CELL VOLUME 86.3 fL (81.0-99.0); MEAN CORPUSCULAR HEMOGLOBIN 27.9 pg (27.0-31.0); MEAN CORPUSCULAR HGB CONC 32.3 g/dL (33.0-37.0); MEAN PLATELET VOLUME 9.9 fL (7.2-11.7); MONO # 0.3 K/uL (0.0-0.8); MONO % 3.9 % (0.0-10.0); NEUT # 5.8 K/uL (1.8-7.0); NEUT % 73.8 % (50.0-75.0); RBC 3.87 Mil/uL (3.80-5.20); RED CELL DISTRIBUTION WIDTH 14.7 % (11.5-14.5); WHITE BLOOD COUNT 7.9 K/uL (4.8-10.8)
[2016-10-28 12:44] LABS: ALBUMIN 2.6 g/dL (3.5-5.0)
[2016-10-28 12:47] LABS: ALB/GLOB RATIO 0.9 (1.0-2.1); ALT/SGPT 23 U/L (9-52); AST/SGOT 20 U/L (14-36); BLOOD UREA NITROGEN 15 mg/dL (7-17); CALCIUM 8.6 mg/dl (8.6-10.4); GFR AFRICAN-AMERICAN 47; GFR NON-AFRICAN AMERICAN 39
[2016-10-28 12:48] LABS: LIPASE 28 U/L (23-300)
[2016-10-28 12:51] LABS: VENOUS BLOOD GAS BASE EXCESS -3.3 mmol/L (0.0-2.0); VENOUS BLOOD GAS PCO2 40 mmHg (40-60); VENOUS BLOOD GAS PO2 52 mm/Hg (30-55); VENOUS BLOOD PH 7.35 (7.32-7.43)
[2016-10-28] MEDS ORDERED: Labetalol 25mg/5ml Syringe ONE (12:52)
[2016-10-28] MEDS: Aluminum Hydroxide/Magnesium Hydroxide Susp (30 mL) PO STA ×2 (15:33→15:35)
[2016-10-28] MEDS ORDERED: Aluminum Hydroxide/Magnesium Hydroxide Susp (30 mL) ONE (15:33)
--- NOTE | 2016-10-28 15:53 | CP.PCM.PN ---
Subjective - Date & Time of Evaluation Date of Evaluation: 10/28/16 Time of Evaluation: 04:45 - Subjective Subjective: MEDICINE PROGRESS NOTE FOR DR. LEA CC: seizure HPI: 26 year old female with PMHx of Seizure disorder, Gastroparesis , Diabetes and HTN presents to the ED one day after discharge from [facility] for recurrent seizures. Patient was sleeping at bedside and unarousable at time of evaluation. Medical History was obtained by mother present bedside. Mother states that daughter came home from the hospital and tolerated a diet of crackers and juice without any issues. Soon after, patient slept from 9:30 pm until early this morning when patient began having seizures. Patient's mom states that she was not aware of the new medications tht daughter was started on. Although the mother obtained the medications, she was unsure about unsure whether daughter took the medication Lamictal. Patient's mom stated that daughter is not always compliant with meds. Patient not able to comply with ROS b/c she was sleeping and unarousable. PMHx: Seizure D/O, Gastroparesis, Diabetes, HTN PSHx: denies Meds: see EMR Allergies: NKDA FamHx: Mom - HTN SocHx: Denies tobacco or ETOH. Smokes marijuana on a monthly basis. PMD: Dr. Jane Yan Neurologist: None Objective - Vital Signs/Intake and Output Vital Signs (last 24 hours): Temp Pulse Resp BP Pulse Ox 99.2 F 102 H 18 140/87 98 10/28/16 11:20 10/28/16 14:19 10/28/16 14:19 10/28/16 14:19 10/28/16 15:43 - Labs Labs: 10/28/16 12:24 10/28/16 12:24 - Constitutional Appears: Non-toxic, No Acute Distress - Head Exam Head Exam: ATRAUMATIC, NORMAL INSPECTION, NORMOCEPHALIC - Eye Exam Additional comments: patient sleeping - Respiratory Exam Respiratory Exam: NORMAL BREATHING PATTERN. absent: Wheezes - Cardiovascular Exam Cardiovascular Exam: Tachycardia, +S1, +S2 - GI/Abdominal Exam GI & Abdominal Exam: Soft - Extremities Exam Extremities Exam: Normal Capillary Refill - Neurological Exam Neurological Exam: absent: Awake - Psychiatric Exam Psychiatric exam: Flat Affect - Skin Skin Exam: Dry, Normal Color, Warm - Additional Findings Additional findings: Patient sleeping during evaluation and unarousable. Assessment and Plan - Assessment and Plan (Free Text) Assessment: Seizures: Continue Keppra 500 mg PO BID Ativan 1 mg IVP Q6 PRN for breakthrough seizure Ativan 0.5 mg IV q2h prn anxiety Continue Lamictal 25mg PO BID started on prev admission on 10/22. Neuro consulted- Dr. Triplett, help appreciated. Seizure precautions F/U Prolactin level Patient counseled on use of illicit substances during prior admission Patient to be counseled on strict medication adherence Gastroparesis Tolerating a diet. Continue to monitor. Protonix 40 mg IV daily Zofran for nausea Adjusting medications for better sugar control IVF NS @100cc/hr- Held due to elevated BP. Patient eating well. HTN Hydralazine 10mg IV q6h prn SBP>160 Norvasc 10mg PO daily Monitor vitals Uncontrolled DM Patient counseled on strict adherence to medication regiment at home Currently on ISS Accuchecks Novolog 10u SC AC Lantus 24u SC HS HgA1C on prior admission 9.2 CKD Improving GFR 30-40 Stable Continue D5 1/2 ns @ 50 mls/hr Hypokalemia Repleted Monitor in AM Anemia Continue iron supplements Hgb stable Prophylactic Measures Protonix 40mg IV daily SCDs Heparin 5000u SC Patient counseled on discontinuing use of cannabis in light of seizure disorder Medical management and orders per Dr. Lea.
[2016-10-28] MEDS ORDERED: (Novolin R) Insulin Human Regular 100 units/ml vial ONE (18:46)
[2016-10-28] MEDS ORDERED: (Novolin R) Insulin Human Regular 100 units/ml vial SC ONE (18:48)
[2016-10-28] MEDS ORDERED: Potassium Chl 40 mEq in D5-1/2 1,000 ML IV SCH (19:00)
[2016-10-28 19:54] LABS: BARBITURATES, UR NEGATIVE (NEGATIVE); BENZODIAZEPINES, UR NEGATIVE (NEGATIVE)
[2016-10-28 19:58] LABS: OPIATES, UR NEGATIVE (NEGATIVE); PHENCYCLIDINE, UR NEGATIVE (NEGATIVE)
[2016-10-28 20:09] LABS: SQUAMOUS EPITHIAL 2 /hpf (0-5); URINE BACTERIA RARE (<OCC); URINE BILIRUBIN NEGATIVE (NEGATIVE); URINE BLOOD NEGATIVE (NEGATIVE); URINE CLARITY Hazy (Clear); URINE COLOR Yellow (YELLOW); URINE GLUCOSE (UA) 2+ mg/dL (Normal); URINE LEUKOCYTE ESTERASE NEG Leu/uL (Negative); URINE NITRATE NEGATIVE (NEGATIVE); URINE PROTEIN 3+ mg/dL (NEGATIVE); URINE UROBILINOGEN NORMAL mg/dL (0.2-1.0)
[2016-10-28 20:12] LABS: HCG,QUALITATIVE URINE NEGATIVE (NEGATIVE)
[2016-10-28] MEDS ORDERED: (Lantus) Insulin Glargine, Recombinant SC SCH (22:00)
[2016-10-28] MEDS: (Novolog) Insulin Aspart, Recombinant 100 u/ml 10 ml vial SC SCH (22:04)
[2016-10-28] MEDS: Oxycodone/Acetaminophen 5/325 mg Tab PO PRN (22:19)
[2016-10-29] MEDS: (Novolog) Insulin Aspart, Recombinant 100 u/ml 10 ml vial SC SCH ×6 (07:06→21:40)
[2016-10-29 07:31] LABS: BASO % 0.6 % (0.0-2.0); EOS % 0.4 % (0.0-4.0); LYMPH % 24.4 % (20.0-40.0); MEAN CELL VOLUME 86.2 fL (81.0-99.0); MEAN CORPUSCULAR HEMOGLOBIN 28.4 pg (27.0-31.0); MEAN PLATELET VOLUME 9.6 fL (7.2-11.7); MONO # 0.4 K/uL (0.0-0.8); MONO % 5.1 % (0.0-10.0); NEUT # 5.7 K/uL (1.8-7.0); NEUT % 69.5 % (50.0-75.0); RBC 2.88 Mil/uL (3.80-5.20); RED CELL DISTRIBUTION WIDTH 14.6 % (11.5-14.5); WHITE BLOOD COUNT 8.2 K/uL (4.8-10.8)
[2016-10-29 07:51] LABS: HEMOGLOBIN 8.2 g/dL (11.0-16.0)
[2016-10-29 08:07] LABS: ALBUMIN 1.9 g/dL (3.5-5.0)
[2016-10-29 08:10] LABS: ALB/GLOB RATIO 0.8 (1.0-2.1)
[2016-10-29 08:11] LABS: MAGNESIUM 1.9 mg/dL (1.6-2.3)
[2016-10-29] MEDS ORDERED: Dextrose 50% SYRINGE Inj (50 ml) ONE (11:30)
[2016-10-29] MEDS ORDERED: Potassium Chl 40 mEq in D5-1/2 1,000 ML IV SCH ×2 (11:31→13:00)
--- NOTE | 2016-10-29 11:40 | PCM.RRTMUL ---
TRUST ADMINISTRATIVE ASSISTANT Nurses Assessment - Situation TRUST ADMINISTRATIVE ASSISTANT Responder Arrival Time:: 11:27 (Called at 11:27AM) Location:: [address] [place] [address] Room Number:: 365B TRUST ADMINISTRATIVE ASSISTANT Called By: RN - IV IV Inserted during TRUST ADMINISTRATIVE ASSISTANT?: No IV Fluids Initiated During TRUST ADMINISTRATIVE ASSISTANT?: D5 1/2 ns IV fluid rate was increased from 50 mls/ to 100 mls/hr - Respiratory Oxygen Delivery Method:: Room Air Received Nebulizer Treatments:: No Was the Patient Ventilated with Bag/Mask 100% O2?: No Secretions Suctioned?: No Was the Patient Intubated?: No Was the Patient Placed on a Ventilator?: No - Vital Signs Blood Pressure:: 142/90 Pulse Rate:: 87 Respiratory Rate:: 20 Temperature:: 97.7 F I.Reason for TRUST ADMINISTRATIVE ASSISTANT - A) Acute Change in Patient: (Select all that apply): Staff member or family is worried about patient ( Hypoglycemic event) - A) Initial Vital Signs: Blood Pressure: 170/91 Temperature: 97.6 F O2 Sat by Pulse Oximetry: 96 Finger Stick Blood Glucose: 31 - B) Neurological Status (Select all that apply): Alert, Responsive, Oriented, Verbal, Follows Commands, Weakness - C) Respiratory Oxygen Delivery Method: Room Air - Constitutional Appears: Non-toxic - Head Head Exam: ATRAUMATIC, NORMAL INSPECTION, NORMOCEPHALIC - Eyes Eye Exam: EOMI, Normal appearance, PERRL - Respiratory Exam Respiratory Exam: NORMAL BREATHING PATTERN. absent: Wheezes - Cardiovascular Exam Cardiovascular Exam: +S1, +S2. absent: Tachycardia - GI/Abdominal Exam GI & Abdominal Exam: Soft, Normal Bowel Sounds - Neurological Exam Neurological Exam: Alert, Awake, Oriented x3 - Extremities Exam Extremities Exam: Full ROM, Normal Capillary Refill, Normal Inspection Plan - A. End of TRUST ADMINISTRATIVE ASSISTANT Vital Signs: Blood Pressure: 167/103 Pulse Rate: 97 Temperature: 97.6 F Finger Stick Blood Glucose: 78 - B. Assessment of Findings&Treatment Plan TRUST ADMINISTRATIVE ASSISTANT called by nursing staff at 11:27 AM after patient complained of having cold sweats with changes in respiration. Patient stated that this is an indicator that she is hypoglycemic. Patient with known history of uncontrolled diabetes mellitus. Patient's morning blood glucose was 108; however patient still received 10 units of Novolog. Patient had several bouts of emesis this morning as well prior to morning rounds secondary to gastroparesis. At the time of TRUST ADMINISTRATIVE ASSISTANT, patient's blood sugar was 31. Patient was given 2 jello cups with 6 sugars added in. Patient was also given 1 juice as well which she sipped slowly to prevent emesis. Patient was given glucose gel as well. Patient was not administered D50 via IV due to malfunctioning IV line. PICC line team was notified regarding need for a line. Patient's IV fluids were increased from rate of 50cc/hr to 150cc/hr. Patient's blood sugar increased to 78. Will continue to monitor.
--- NOTE | 2016-10-29 11:40 | CP.PCM.PN ---
Subjective - Date & Time of Evaluation Date of Evaluation: 10/29/16 Time of Evaluation: 07:45 - Subjective Subjective: PGY 2 Medicine Note - Dr. Cueva's service Patient states that she drank too much juice this morning which prompted her to feel nauseous. Although patient states that she threw up food contents; nursing states that she did not actually throw up food. She coughed up saliva. MANAGER CIVIL called by nursing staff at 11:27 AM after patient complained of having cold sweats with changes in respiration. Patient stated that this is an indicator that she is hypoglycemic. Patient with known history of uncontrolled diabetes mellitus. Patient's morning blood glucose was 108; however patient still received 10 units of Novolog. Patient had several bouts of emesis this morning as well prior to morning rounds secondary to gastroparesis. At the time of MANAGER CIVIL, patient's blood sugar was 31. Patient was given 2 jello cups with 6 sugars added in. Patient was also given 1 juice as well which she sipped slowly to prevent emesis. Patient was given glucose gel as well. Patient was not administered D50 via IV due to malfunctioning IV line. PICC line team was notified regarding need for a line. Patient's IV fluids were increased from rate of 50cc/hr to 150cc/hr. Patient's blood sugar increased to 78. Will continue to monitor. At the time, patient was AAOx3 in no acute apparent distress. Patient later received a MID line for IV access. Objective - Vital Signs/Intake and Output Vital Signs (last 24 hours): Temp Pulse Resp BP Pulse Ox 97.7 F 87 20 142/90 100 10/29/16 11:40 10/29/16 11:40 10/29/16 11:40 10/29/16 11:40 10/29/16 09:06 Intake and Output: 10/29/16 10/29/16 06:59 18:59 Intake Total 640 Balance 640 - Medications Medications: Current Medications Acetaminophen (Tylenol 325mg Tab) 650 mg PO Q6 PRN PRN Reason: Headache Amlodipine Besylate (Norvasc) 10 mg PO DAILY [facility] Last Admin: 10/29/16 11:12 Dose: 10 mg Dextrose (Glutose 15) 15 gm PO ONCE ONE Stop: 10/29/16 11:32 Ferrous Sulfate (Feosol) 325 mg PO DAILY [facility] Last Admin: 10/29/16 11:13 Dose: Not Given Heparin Sodium (Porcine) (Heparin) 5,000 units SC Q8 [facility] Last Admin: 10/29/16 05:07 Dose: Not Given Hydralazine HCl (Apresoline) 10 mg IVP Q6H PRN PRN Reason: Other Last Admin: 10/28/16 19:29 Dose: 10 mg Potassium Chloride/Dextrose/Sod Cl (Potassium Chl 40 Meq In D5-1/2ns) 1,000 mls @ 100 mls/hr IV .Q10H [facility] Insulin Aspart (Novolog) 0 unit SC ACHS [facility] PRN Reason: Protocol Last Admin: 10/29/16 07:06 Dose: Not Given Insulin Aspart (Novolog) 10 unit SC AC [facility] Last Admin: 10/29/16 08:05 Dose: 10 unit Insulin Glargine (Lantus) 24 unit SC HS [facility] Last Admin: 10/28/16 22:18 Dose: 24 units Lamotrigine (Lamictal) 25 mg PO BID [facility] Last Admin: 10/29/16 11:10 Dose: 25 mg Levetiracetam (Keppra) 500 mg PO BID [facility] Last Admin: 10/29/16 11:10 Dose: 500 mg Lorazepam (Ativan) 1 mg IVP Q6H PRN PRN Reason: Anxiety Lorazepam (Ativan) 0.5 mg IVP Q2H PRN PRN Reason: Anxiety Last Admin: 10/29/16 03:14 Dose: 0.5 mg Metoclopramide HCl (Reglan) 10 mg IVP Q8H PRN PRN Reason: Nausea/Vomiting Last Admin: 10/29/16 03:45 Dose: 10 mg Oxycodone/Acetaminophen (Percocet 5/325 Mg Tab) 1 tab PO Q4H PRN PRN Reason: Pain, moderate (4-7) Stop: 10/31/16 21:27 Last Admin: 10/28/16 22:19 Dose: 1 tab Pantoprazole Sodium (Protonix Inj) 40 mg IVP DAILY [facility] Last Admin: 10/29/16 10:55 Dose: 40 mg - Labs Labs: 10/29/16 07:03 10/29/16 07:03 APTT 24 SECONDS (21-34) 10/29/16 07:03 - Constitutional Appears: Non-toxic, No Acute Distress - Head Exam Head Exam: ATRAUMATIC, NORMAL INSPECTION, NORMOCEPHALIC - Eye Exam Eye Exam: EOMI, Normal appearance, PERRL Pupil Exam: NORMAL ACCOMODATION, PERRL - ENT Exam ENT Exam: Mucous Membranes Moist - Neck Exam Neck Exam: Full ROM - Respiratory Exam Respiratory Exam: NORMAL BREATHING PATTERN. absent: Wheezes - Cardiovascular Exam Cardiovascular Exam: +S1, +S2 - GI/Abdominal Exam GI & Abdominal Exam: Soft. absent: Tenderness - Extremities Exam Extremities Exam: Full ROM, Normal Capillary Refill Additional comments: swelling of left palm - Back Exam Back Exam: Full ROM - Neurological Exam Neurological Exam: Alert, Awake, CN II-XII Intact, Oriented x3 Additional comments: Pt able to perform heel to hunt test - Psychiatric Exam Psychiatric exam: Normal Affect, Normal Mood - Skin Skin Exam: Dry, Normal Color, Warm Assessment and Plan - Assessment and Plan (Free Text) Assessment: Seizures: Continue Keppra 500 mg PO BID Ativan 1 mg IVP Q6 PRN for breakthrough seizure Ativan 0.5 mg IV q2h prn anxiety Continue Lamictal 25mg PO BID started on prev admission on 10/22. Neuro consulted- Dr. Triplett, is currently away. Will consult another Neurologist at this time. Seizure precautions F/U Prolactin level Patient counseled on use of illicit substances during prior admission Patient to be counseled on strict medication adherence Hypoglycemia Secondarily due to insulin administration this morning Accuchecks Novolog 10u SC AC- held after hypoglycemia Lantus 24u SC HS - held after hypoglycemia Gastroparesis Tolerating a diet. Patient counseled and strongly encouraged to decrease her portions when consuming beverages and meals. Continue to monitor. Protonix 40 mg IV daily Zofran for nausea Adjusting medications for better sugar control D5 1/2 ns @ 75 mls/hr HTN Hydralazine 10mg IV q6h prn SBP>160 Norvasc 10mg PO daily Monitor vitals Uncontrolled DM Patient counseled on strict adherence to medication regiment at home Currently on ISS Accuchecks Novolog 10u SC AC- held after hypoglycemia Lantus 24u SC HS - held after hypoglycemia HgA1C on prior admission 9.2 CKD Improving GFR 30-40 Stable Continue D5 1/2 ns @ 50 mls/hr Hypokalemia resolved Cont to monitor Anemia Continue iron supplements Hgb stable Prophylactic Measures Protonix 40mg IV daily SCDs Heparin 5000u SC Patient counseled on discontinuing use of cannabis in light of seizure disorder Medical management and orders per Dr. Cueva.
[2016-10-29] MEDS: Oxycodone/Acetaminophen 5/325 mg Tab PO PRN ×2 (13:16→21:15)
[2016-10-29] MEDS: Potassium Chl 40 mEq in D5-1/2 1,000 ML IV SCH (22:38)
[2016-10-30] MEDS: Potassium Chl 40 mEq in D5-1/2 1,000 ML IV SCH (06:42)
[2016-10-30 07:00] LABS: BASO # 0.1 K/uL (0.0-0.2); BASO % 1.3 % (0.0-2.0); EOS # 0.2 K/uL (0.0-0.7); EOS % 3.1 % (0.0-4.0); HEMOGLOBIN 8.9 g/dL (11.0-16.0); LYMPH # 3.1 K/uL (1.0-4.3); LYMPH % 43.9 % (20.0-40.0); MEAN CELL VOLUME 86.4 fL (81.0-99.0); MEAN CORPUSCULAR HEMOGLOBIN 28.1 pg (27.0-31.0); MEAN CORPUSCULAR HGB CONC 32.6 g/dL (33.0-37.0); MEAN PLATELET VOLUME 9.4 fL (7.2-11.7); MONO # 0.4 K/uL (0.0-0.8); MONO % 6.2 % (0.0-10.0); NEUT # 3.2 K/uL (1.8-7.0); NEUT % 45.5 % (50.0-75.0); RBC 3.16 Mil/uL (3.80-5.20); RED CELL DISTRIBUTION WIDTH 14.6 % (11.5-14.5)
[2016-10-30 07:07] LABS: ALB/GLOB RATIO 0.7 (1.0-2.1)
[2016-10-30 07:08] LABS: CALCIUM 8.1 mg/dl (8.6-10.4); MAGNESIUM 1.8 mg/dL (1.6-2.3)
[2016-10-30 07:24] LABS: PROLACTIN 166.9 ng/mL (3.0-18.9)
[2016-10-30] MEDS: (Novolog) Insulin Aspart, Recombinant 100 u/ml 10 ml vial SC SCH ×4 (07:32→21:04)
--- NOTE | 2016-10-30 11:01 | CP.PCM.PN ---
Subjective - Date & Time of Evaluation Date of Evaluation: 10/30/16 Time of Evaluation: 07:35 - Subjective Subjective: PGY3 Medicine Note - Dr. Cueva's Service: Patient seen and examined at bedside this AM. Patient is very sleepy. She says she could not sleep at night because of her roommate. Patient reports nause and vomiting yesterday but feels better today. Patient reports swelling of left arm since waking up this AM. Midline was placed there yesterday. Objective - Vital Signs/Intake and Output Vital Signs (last 24 hours): Temp Pulse Resp BP Pulse Ox 98.7 F 89 18 143/92 H 97 10/30/16 08:31 10/30/16 08:31 10/30/16 08:31 10/30/16 10:17 10/29/16 23:20 Intake and Output: 10/30/16 10/30/16 06:59 18:59 Intake Total 1720 Output Total 800 Balance 920 - Medications Medications: Current Medications Acetaminophen (Tylenol 325mg Tab) 650 mg PO Q6 PRN PRN Reason: Headache Amlodipine Besylate (Norvasc) 10 mg PO DAILY [facility] Last Admin: 10/30/16 10:19 Dose: 10 mg Ferrous Sulfate (Feosol) 325 mg PO DAILY [facility] Last Admin: 10/30/16 10:18 Dose: 325 mg Heparin Sodium (Porcine) (Heparin) 5,000 units SC Q8 [facility] Last Admin: 10/30/16 05:57 Dose: 5,000 units Hydralazine HCl (Apresoline) 10 mg IVP Q6H PRN PRN Reason: Other Last Admin: 10/28/16 19:29 Dose: 10 mg Potassium Chloride/Dextrose/Sod Cl (Potassium Chl 40 Meq In D5-1/2ns) 1,000 mls @ 75 mls/hr IV .[id number] [facility] Last Admin: 10/30/16 06:42 Dose: Not Given Insulin Aspart (Novolog) 0 unit SC ACHS [facility] PRN Reason: Protocol Last Admin: 10/30/16 07:32 Dose: Not Given Insulin Aspart (Novolog) 10 unit SC AC [facility] Last Admin: 10/29/16 13:23 Dose: Not Given Insulin Glargine (Lantus) 24 unit SC HS [facility] Last Admin: 10/28/16 22:18 Dose: 24 units Lamotrigine (Lamictal) 25 mg PO BID [facility] Last Admin: 10/30/16 10:19 Dose: 25 mg Levetiracetam (Keppra) 500 mg PO BID [facility] Last Admin: 10/30/16 10:19 Dose: 500 mg Lorazepam (Ativan) 1 mg IVP Q6H PRN PRN Reason: Anxiety Last Admin: 10/30/16 06:33 Dose: 1 mg Lorazepam (Ativan) 0.5 mg IVP Q2H PRN PRN Reason: Anxiety Last Admin: 10/29/16 22:48 Dose: 0.5 mg Losartan Potassium (Cozaar) 50 mg PO DAILY [facility] Metoclopramide HCl (Reglan) 10 mg IVP Q8H PRN PRN Reason: Nausea/Vomiting Last Admin: 10/30/16 06:34 Dose: 10 mg Oxycodone/Acetaminophen (Percocet 5/325 Mg Tab) 1 tab PO Q4H PRN PRN Reason: Pain, moderate (4-7) Stop: 10/31/16 21:27 Last Admin: 10/29/16 21:15 Dose: 1 tab Pantoprazole Sodium (Protonix Inj) 40 mg IVP DAILY [facility] Last Admin: 10/30/16 10:19 Dose: Not Given - Labs Labs: 10/30/16 06:37 10/30/16 06:37 APTT 24 SECONDS (21-34) 10/29/16 07:03 - Constitutional Appears: Non-toxic, No Acute Distress - Head Exam Head Exam: NORMAL INSPECTION - Eye Exam Eye Exam: EOMI - ENT Exam ENT Exam: Mucous Membranes Moist - Respiratory Exam Respiratory Exam: Clear to Ausculation Bilateral, NORMAL BREATHING PATTERN. absent: Rales, Rhonchi, Wheezes - Cardiovascular Exam Cardiovascular Exam: REGULAR RHYTHM, +S1, +S2. absent: Gallop, Rubs, Murmur - GI/Abdominal Exam GI & Abdominal Exam: Soft, Normal Bowel Sounds. absent: Distended, Firm, Tenderness - Extremities Exam Extremities Exam: Normal Capillary Refill. absent: Pedal Edema - Neurological Exam Neurological Exam: Alert, Awake, Oriented x3 - Psychiatric Exam Psychiatric exam: Normal Affect, Normal Mood - Skin Skin Exam: Normal Color, Warm Assessment and Plan - Assessment and Plan (Free Text) Assessment: Seizures: Continue Keppra 500 mg PO BID Ativan 1 mg IVP Q6 PRN for breakthrough seizure Ativan 0.5 mg IV q2h prn anxiety Continue Lamictal 25mg PO BID started on prev admission on 10/22. Neuro consulted- Dr. Hair - help appreciated F/U Brain MRI Seizure precautions Prolactin 166.9 Patient counseled on use of illicit substances during prior admission Patient to be counseled on strict medication adherence Hypoglycemia Secondarily due to insulin administration this morning Accuchecks Novolog 10u SC AC- held after hypoglycemia Lantus 24u SC HS - held after hypoglycemia Gastroparesis Tolerating a diet. Patient counseled and strongly encouraged to decrease her portions when consuming beverages and meals. Continue to monitor. Protonix 40 mg IV daily Zofran for nausea Adjusting medications for better sugar control D5 1/2 ns @ 75 mls/hr HTN Hydralazine 10mg IV q6h prn SBP>160 Norvasc 10mg PO daily Losartan 50mg PO daily Monitor vitals Uncontrolled DM Patient counseled on strict adherence to medication regiment at home Currently on ISS Accuchecks Novolog 10u SC AC- held after hypoglycemia Lantus 24u SC HS - held after hypoglycemia HgA1C on prior admission 9.2 CKD Improving GFR 30-40 Stable Continue D5 1/2 ns @ 50 mls/hr Hypokalemia resolved Cont to monitor Anemia Continue iron supplements Hgb stable Prophylactic Measures Protonix 40mg IV daily SCDs Heparin 5000u SC Patient counseled on discontinuing use of cannabis in light of seizure disorder Medical management and orders per Dr. Cueva.
--- NOTE | 2016-10-30 14:48 | VASCLAB ---
PROCEDURE: Left Upper Extremity Venous Duplex Exam HISTORY: swollen. r/o DVT/infiltration so we can give fluid PRIORS: None. TECHNIQUE: Left upper extremity, internal jugular, subclavian, axillary, brachial, ulnar, radial, basilic and upper cephalic veins were evaluated. Flow was assessed with color Doppler, compressibility, assessment of phasic flow and augmentation response. Report prepared by Yao Sanchez, BS, RVT FINDINGS: LEFT: 1. Internal Jugular: 1.1. Compressibility - Fully compressible: Thrombus - None : Flow - Phasic: Augmentation -Normal: Reflux - None. 2. Subclavian: 2.1. Compressibility - Fully compressible: Thrombus - None : Flow - Phasic: Augmentation -Normal: Reflux - None. 3. Axillary: 3.1. Compressibility - Fully compressible: Thrombus - None : Flow - Phasic: Augmentation -Normal: Reflux - None. 4. Brachial: 4.1. Compressibility - Fully compressible: Thrombus - None: Flow - Phasic: Augmentation -Normal: Reflux - None. 5. Ulnar: 5.1. Compressibility - Fully compressible: Thrombus - None: Flow - Phasic: Augmentation -Normal: Reflux - None. 6. Radial: 6.1. Compressibility - Fully compressible: Thrombus - None: Flow - Phasic: Augmentation - Normal: Reflux - None. 7. Cephalic: 7.1. Compressibility - Fully compressible: Thrombus - None: Flow - Phasic: Augmentation -Normal: Reflux - None. 8. Basilic: 8.1. Compressibility - Fully compressible: Thrombus - None: Flow - Phasic: Augmentation -Normal: Reflux - None. OTHER FINDINGS: Left: None. IMPRESSION: Left: No evidence of vein thrombosis of the left upper extremity with excellent venous flow. Normal valve function noted of the left side. Normal venous flow noted in the right internal jugular and right subclavian veins.
--- NOTE | 2016-10-30 16:11 | CARD ---
APPROVED REPORT EKG Measurement Heart [id number] FL [id number] <Conclusion> Sinus tachycardia Otherwise normal.
[2016-10-31 07:54] LABS: BASO # 0.1 K/uL (0.0-0.2); BASO % 1.2 % (0.0-2.0); EOS # 0.2 K/uL (0.0-0.7); EOS % 2.9 % (0.0-4.0); HEMOGLOBIN 8.7 g/dL (11.0-16.0); LYMPH # 2.4 K/uL (1.0-4.3); LYMPH % 39.7 % (20.0-40.0); MEAN CELL VOLUME 86.3 fL (81.0-99.0); MEAN CORPUSCULAR HEMOGLOBIN 28.3 pg (27.0-31.0); MEAN CORPUSCULAR HGB CONC 32.7 g/dL (33.0-37.0); MEAN PLATELET VOLUME 9.7 fL (7.2-11.7); MONO # 0.4 K/uL (0.0-0.8); MONO % 6.7 % (0.0-10.0); NEUT % 49.5 % (50.0-75.0); RBC 3.09 Mil/uL (3.80-5.20); RED CELL DISTRIBUTION WIDTH 14.5 % (11.5-14.5); WHITE BLOOD COUNT 6.2 K/uL (4.8-10.8)
[2016-10-31 08:21] LABS: ALBUMIN 1.9 g/dL (3.5-5.0)
[2016-10-31 08:25] LABS: ALB/GLOB RATIO 0.8 (1.0-2.1); CALCIUM 7.7 mg/dl (8.6-10.4); MAGNESIUM 1.8 mg/dL (1.6-2.3)
[2016-10-31] MEDS: (Novolog) Insulin Aspart, Recombinant 100 u/ml 10 ml vial SC SCH ×2 (08:47→11:12)
--- NOTE | 2016-10-31 09:02 | HP ---
HISTORY OF PRESENT ILLNESS: A 26-year-old female *------* diabetes, *-----* weakness, fatigue, tiredness. Patient came to the hospital advised admission. PAST MEDICAL HISTORY: Text. FAMILY HISTORY: Text. SOCIAL HISTORY: Text. REVIEW OF SYSTEMS: Text. PHYSICAL EXAMINATION GENERAL: The patient is awake and alert. Face is swollen. VITAL SIGNS: Temperature 98, pulse 96, *------* HEENT: Normal limits NECK: Supple HEART: Regular EXTREMITIES: No Edema *------*. IMPRESSION: Weakness, seizure, diabetic gastroparesis *------* syndrome. Patient on bedrest, supportive care. Belle Cueva MD cc:
--- NOTE | 2016-10-31 14:05 | CP.PCM.PN ---
Subjective - Date & Time of Evaluation Date of Evaluation: 10/31/16 Time of Evaluation: 14:02 - Subjective Subjective: PGY2 progress note for Dr. Cueva Pt is seen and examined at bedside. No acute events overnight. Patient states she had no seizure like activity overnight. Patient denies having any abd pain , N/v/D/C. Patient refused MRI of brain yesterday. 12 point ROS are negative except for the above mentioned. Objective - Vital Signs/Intake and Output Vital Signs (last 24 hours): Temp Pulse Resp BP Pulse Ox 98.4 F 86 18 154/100 H 97 10/31/16 07:20 10/31/16 07:20 10/31/16 07:20 10/31/16 07:20 10/31/16 07:20 Intake and Output: 10/31/16 10/31/16 06:59 18:59 Intake Total 120 Balance 120 - Medications Medications: Current Medications Acetaminophen (Tylenol 325mg Tab) 650 mg PO Q6 PRN PRN Reason: Headache Amlodipine Besylate (Norvasc) 10 mg PO DAILY [facility] Last Admin: 10/31/16 09:22 Dose: 10 mg Ferrous Sulfate (Feosol) 325 mg PO DAILY [facility] Last Admin: 10/31/16 09:22 Dose: 325 mg Heparin Sodium (Porcine) (Heparin) 5,000 units SC Q8 [facility] Last Admin: 10/31/16 06:24 Dose: 5,000 units Hydralazine HCl (Apresoline) 10 mg IVP Q6H PRN PRN Reason: Other Last Admin: 10/28/16 19:29 Dose: 10 mg Potassium Chloride/Dextrose/Sod Cl (Potassium Chl 40 Meq In D5-1/2ns) 1,000 mls @ 75 mls/hr IV .[id number] [facility] Last Admin: 10/30/16 06:42 Dose: Not Given Insulin Aspart (Novolog) 0 unit SC ACHS [facility] PRN Reason: Protocol Last Admin: 10/31/16 11:12 Dose: 6 unit Insulin Aspart (Novolog) 10 unit SC AC [facility] Last Admin: 10/29/16 13:23 Dose: Not Given Insulin Glargine (Lantus) 24 unit SC HS [facility] Last Admin: 10/28/16 22:18 Dose: 24 units Lamotrigine (Lamictal) 25 mg PO BID [facility] Last Admin: 10/31/16 09:22 Dose: 25 mg Levetiracetam (Keppra) 500 mg PO BID [facility] Last Admin: 10/31/16 09:22 Dose: 500 mg Lorazepam (Ativan) 1 mg IVP Q6H PRN PRN Reason: Anxiety Last Admin: 10/31/16 09:53 Dose: 1 mg Lorazepam (Ativan) 0.5 mg IVP Q2H PRN PRN Reason: Anxiety Last Admin: 10/30/16 21:05 Dose: 0.5 mg Losartan Potassium (Cozaar) 50 mg PO DAILY [facility] Last Admin: 10/31/16 09:22 Dose: 50 mg Metoclopramide HCl (Reglan) 10 mg IVP Q8H PRN PRN Reason: Nausea/Vomiting Last Admin: 10/30/16 06:34 Dose: 10 mg Oxycodone/Acetaminophen (Percocet 5/325 Mg Tab) 1 tab PO Q4H PRN PRN Reason: Pain, moderate (4-7) Stop: 10/31/16 21:27 Last Admin: 10/29/16 21:15 Dose: 1 tab Pantoprazole Sodium (Protonix Inj) 40 mg IVP DAILY [facility] Last Admin: 10/31/16 09:26 Dose: Not Given - Labs Labs: 10/31/16 07:42 10/31/16 07:42 APTT 24 SECONDS (21-34) 10/29/16 07:03 - Constitutional Appears: Non-toxic, No Acute Distress - Head Exam Head Exam: ATRAUMATIC - ENT Exam ENT Exam: Mucous Membranes Moist - Respiratory Exam Respiratory Exam: Clear to Ausculation Bilateral, NORMAL BREATHING PATTERN. absent: Rales, Rhonchi, Wheezes - Cardiovascular Exam Cardiovascular Exam: REGULAR RHYTHM, +S1, +S2. absent: Gallop, Rubs, Murmur - GI/Abdominal Exam GI & Abdominal Exam: Soft, Normal Bowel Sounds. absent: Firm, Guarding, Rigid, Tenderness, Organomegaly - Extremities Exam Extremities Exam: absent: Pedal Edema, Tenderness - Neurological Exam Neurological Exam: Alert, Awake, Oriented x3 - Psychiatric Exam Psychiatric exam: Normal Affect, Normal Mood - Skin Skin Exam: Dry, Intact, Normal Color, Warm Assessment and Plan - Assessment and Plan (Free Text) Assessment: Seizures: Continue Keppra 500 mg PO BID Ativan 1 mg IVP Q6 PRN for breakthrough seizure Ativan 0.5 mg IV q2h prn anxiety Continue Lamictal 25mg PO BID started on prev admission on 10/22. Neuro consulted- Dr. Hair - help appreciated Seizure precautions Prolactin 166.9 Patient counseled on use of illicit substances during prior admission Patient to be counseled on strict medication adherence Patient refused brain MRI again Hypoglycemia stable Accuchecks Novolog 10u SC AC- held after hypoglycemia Lantus 24u SC HS - held after hypoglycemia Gastroparesis Tolerating a diet. Protonix 40 mg IV daily Zofran for nausea Adjusting medications for better sugar control HTN Hydralazine 10mg IV q6h prn SBP>160 Norvasc 10mg PO daily Losartan 50mg PO daily Monitor vitals Uncontrolled DM Patient counseled on strict adherence to medication regiment at home Currently on ISS Accuchecks Novolog 10u SC AC- held after hypoglycemia Lantus 24u SC HS - held after hypoglycemia HgA1C on prior admission 9.2 CKD Improving GFR 30-40 Anemia Continue iron supplements Hgb stable Prophylactic Measures Protonix 40mg IV daily SCDs Heparin 5000u SC Patient counseled on discontinuing use of cannabis in light of seizure disorder PICC line removed before discharge Medical management and orders per Dr. Cueva. Patient is stable for discharge home per Dr. Cueva. Patient is to follow up with PMD upon discharge. Patient is to follow up with neurologist upon discharge. Patient is to continue her home medications as prescribed. If symptoms worsen, please return to ED.
--- NOTE | 2016-10-31 17:35 | CP.PCM.PN ---
Subjective - Date & Time of Evaluation Date of Evaluation: 10/31/16 Time of Evaluation: 06:55 - Subjective Subjective: SHE IS AWAKE AND ALERT MENTATION IS NORMAL NO NEW LATERLIZING SIGNS TOLERATING THE PRESENT DOSE AED STILL I DOUBT SHE HAD SEIZURES WORK UP IN PROGRESS Objective - Vital Signs/Intake and Output Vital Signs (last 24 hours): Temp Pulse Resp BP Pulse Ox 98.4 F 86 18 154/100 H 97 10/31/16 07:20 10/31/16 07:20 10/31/16 07:20 10/31/16 07:20 10/31/16 07:20 Intake and Output: 10/31/16 10/31/16 06:59 18:59 Intake Total 120 Balance 120 - Medications Medications: Current Medications Acetaminophen (Tylenol 325mg Tab) 650 mg PO Q6 PRN PRN Reason: Headache Amlodipine Besylate (Norvasc) 10 mg PO DAILY [facility] Last Admin: 10/31/16 09:22 Dose: 10 mg Ferrous Sulfate (Feosol) 325 mg PO DAILY [facility] Last Admin: 10/31/16 09:22 Dose: 325 mg Heparin Sodium (Porcine) (Heparin) 5,000 units SC Q8 [facility] Last Admin: 10/31/16 14:40 Dose: 5,000 units Hydralazine HCl (Apresoline) 10 mg IVP Q6H PRN PRN Reason: Other Last Admin: 10/28/16 19:29 Dose: 10 mg Potassium Chloride/Dextrose/Sod Cl (Potassium Chl 40 Meq In D5-1/2ns) 1,000 mls @ 75 mls/hr IV .[id number] [facility] Last Admin: 10/30/16 06:42 Dose: Not Given Insulin Aspart (Novolog) 0 unit SC ACHS [facility] PRN Reason: Protocol Last Admin: 10/31/16 11:12 Dose: 6 unit Insulin Aspart (Novolog) 10 unit SC AC [facility] Last Admin: 10/29/16 13:23 Dose: Not Given Insulin Glargine (Lantus) 24 unit SC HS [facility] Last Admin: 10/28/16 22:18 Dose: 24 units Lamotrigine (Lamictal) 25 mg PO BID [facility] Last Admin: 10/31/16 09:22 Dose: 25 mg Levetiracetam (Keppra) 500 mg PO BID [facility] Last Admin: 10/31/16 09:22 Dose: 500 mg Lorazepam (Ativan) 1 mg IVP Q6H PRN PRN Reason: Anxiety Last Admin: 10/31/16 09:53 Dose: 1 mg Lorazepam (Ativan) 0.5 mg IVP Q2H PRN PRN Reason: Anxiety Last Admin: 10/30/16 21:05 Dose: 0.5 mg Losartan Potassium (Cozaar) 50 mg PO DAILY [facility] Last Admin: 10/31/16 09:22 Dose: 50 mg Metoclopramide HCl (Reglan) 10 mg IVP Q8H PRN PRN Reason: Nausea/Vomiting Last Admin: 10/30/16 06:34 Dose: 10 mg Oxycodone/Acetaminophen (Percocet 5/325 Mg Tab) 1 tab PO Q4H PRN PRN Reason: Pain, moderate (4-7) Stop: 10/31/16 21:27 Last Admin: 10/29/16 21:15 Dose: 1 tab Pantoprazole Sodium (Protonix Inj) 40 mg IVP DAILY [facility] Last Admin: 10/31/16 09:26 Dose: Not Given - Labs Labs: 10/31/16 07:42 10/31/16 07:42 APTT 24 SECONDS (21-34) 10/29/16 07:03
[2016-11-01 11:57] VITALS: BP 152/93; PULSE 89; RESP 20; TEMP 98.7; O2SAT 96
--- NOTE | 2016-11-01 13:50 | DS ---
HISTORY: A 26-year-old female with a history of type 1 diabetes, seizure, diabetic gastroparesis, and also complained of paresthesias. Patient was discharged from the hospital. Keep her on Lamictal. Patient resists taking the medication *------* gastritis. Patient improved and discharged to be followed up at the *------*. DISCHARGE DIAGNOSES: 1. Type 1 diabetes. 2. Diabetic gastroparesis. Belle Cueva MD
[2016-11-03 03:57] LABS: LEVETIRACETAM 20.9 mcg/mL
--- NOTE | 2016-11-04 12:05 | EEG ---
ELECTROENCEPHALOGRAPHIC REPORT DATE: 10/30/2016 CONDITION OF THE RECORDING: This is a 16 channel electroencephalogram of an awake and drowsy adult. During the study photic stimulation was performed. Hyperventilation was not performed. TESTING: The resting electroencephalogram consists of to begin with 5-7 Hz, 20-30 mV theta activities which is followed by 20-30 Hz, 9-11 Hz, alpha activities seen at parietal and occipital leads. Anteriorly, fast activities superimposed with 2-3 Hz with delta activities seen. Intermittent 2-3 Hz with delta activities seen which is consistent with the early drowsiness. Photic stimulation did not evoke driving response noted at 2-20 Hz. IMPRESSION: This is a normal electroencephalogram of awake and drowsy adult. During the study, neither electroencephalographic paroxysmal activities nor focal slowing noted. Burt Hair MD
== END 2016-10-31 18:00 | disposition home or self-care (01) | DRG 18 ==
LOC: C.ER 11:14 → C.9E 15:37 → C.6T 20:27 → C.3T 10-29 10:04 → C.6T 10-29 13:51
PROVIDERS: ADMIT Internal Medicine Pulmonary Disease; ATTEND Internal Medicine Pulmonary Disease
PROC: 05H633Z Insertion of Infusion Device into Left Subclavian Vein, Percutaneous Approach (ICD-10-PCS; principal; 2016-10-29)
DX: E10.43 Type 1 diabetes mellitus with diabetic autonomic (poly)neuropathy (principal); E10.65 Type 1 diabetes mellitus with hyperglycemia; E10.22 Type 1 diabetes mellitus with diabetic chronic kidney disease; E87.6 Hypokalemia; N18.9 Chronic kidney disease, unspecified; K31.84 Gastroparesis; Z79.4 Long term (current) use of insulin; D64.9 Anemia, unspecified; G40.909 Epilepsy, unspecified, not intractable, without status epilepticus; F12.90 Cannabis use, unspecified, uncomplicated; I12.9 Hypertensive chronic kidney disease with stage 1 through stage 4 chronic kidney disease, or unspecified chronic kidney disease; K29.70 Gastritis, unspecified, without bleeding; Z68.22 Body mass index [BMI] 22.0-22.9, adult

== ENCOUNTER 2016-11-02 09:47 | Inpatient (IN) | payer MEDICAID ==
[2016-11-02 09:51] VITALS: BMI 26.4
[2016-11-02 11:09] LABS: BASO # 0.1 K/uL (0.0-0.2); BASO % 0.9 % (0.0-2.0); EOS # 0.1 K/uL (0.0-0.7); EOS % 0.7 % (0.0-4.0); HEMATOCRIT 34.8 % (34.0-47.0); LYMPH # 2.7 K/uL (1.0-4.3); LYMPH % 37.4 % (20.0-40.0); MEAN CORPUSCULAR HEMOGLOBIN 28.1 pg (27.0-31.0); MEAN CORPUSCULAR HGB CONC 32.3 g/dL (33.0-37.0); MEAN PLATELET VOLUME 9.4 fL (7.2-11.7); MONO # 0.5 K/uL (0.0-0.8); MONO % 7.1 % (0.0-10.0); RED CELL DISTRIBUTION WIDTH 14.2 % (11.5-14.5); WHITE BLOOD COUNT 7.1 K/uL (4.8-10.8)
[2016-11-02 11:15] LABS: RBC URINE 1 /hpf (0-3); URINE BACTERIA RARE (<OCC); URINE BILIRUBIN NEGATIVE (NEGATIVE); URINE BLOOD NEGATIVE (NEGATIVE); URINE COLOR Yellow (YELLOW); URINE GLUCOSE (UA) 3+ mg/dL (Normal); URINE KETONE NEGATIVE (NEGATIVE); URINE LEUKOCYTE ESTERASE NEG Leu/uL (Negative); URINE PROTEIN 3+ mg/dL (NEGATIVE); URINE UROBILINOGEN NORMAL mg/dL (0.2-1.0); WBC URINE 4 /hpf (0-5)
[2016-11-02 11:19] LABS: CHLORIDE 96 mmol/L (98-107); SODIUM 137 mmol/L (132-148)
[2016-11-02 11:20] LABS: POTASSIUM 3.4 mmol/L (3.6-5.2)
[2016-11-02 11:22] LABS: CARBON DIOXIDE 27 mmol/L (22-30); GFR AFRICAN-AMERICAN 44
[2016-11-02 11:23] LABS: ALB/GLOB RATIO 0.9 (1.0-2.1); ALKALINE PHOSPHATASE 114 U/L (38-126); ALT/SGPT 29 U/L (9-52); AST/SGOT 20 U/L (14-36); BILIRUBIN,TOTAL 0.4 mg/dL (0.2-1.3); BLOOD UREA NITROGEN 19 mg/dL (7-17); CALCIUM 9.4 mg/dl (8.6-10.4); GLUCOSE,RANDOM 132 mg/dL (65-105); TOTAL PROTEIN 6.2 g/dL (6.3-8.3)
--- NOTE | 2016-11-02 11:34 | C.PDOC ---
History Of Present Illness 26 year old female was brought to the ED by EMS with complaints of epigastric pain described as 10/10, multiple episodes of vomiting, and convulsions. Patient had two seizures upon arrival to the ED but made full recovery and was able to have a conversation. As per mother, patient has a history of convulsions beginning 5 years ago and diabetes since the age of 10. Patient was diagnosed with gastroparesis related to diabetes and is taking medications. Mother was unable to provide names of medications aside from Keppra TID for convulsions. Patient has a history of HTN and has had stays in the ICU at [facility] evaluation and [facility]'s ED visits with convulsions and symptoms worsening over the last month. As per mother, patient has been referred multiple times for psychiatric evaluation but has been unable to follow up. Patient had an abdominal ultrasound performed in last ED visit two days ago and revealed gallstones but with no gall bladder disease. Mother states patient was well yesterday but the symptoms began this morning of epigastric pain and vomiting. Patient did not take Keppra today and mother denies any drug or alcohol use of the patient to her knowledge. Time Seen by Provider: 11/02/16 09:56 Chief Complaint (Nursing): GI Problem History Per: Family (mother ) History/Exam Limitations: no limitations Onset/Duration Of Symptoms: Persistent Current Symptoms Are (Timing): Still Present Severity: Severe Pain Scale Rating Of: 10 Location Of Pain/Discomfort: Epigastric Radiation Of Pain To:: None Quality Of Discomfort: "Pain" Associated Symptoms: Nausea, Vomiting. denies: Fever, Chills, Diarrhea Recent travel outside of the [place]: No Additional History Per: Patient, EMS, Prior Records Abnormal Vaginal Bleeding: No Past Medical History Reviewed: Historical Data, Nursing Documentation, Vital Signs Vital Signs: Last Vital Signs Temp 99.2 F 11/02/16 10:04 Pulse 103 H 11/02/16 11:18 Resp 17 11/02/16 11:18 BP 173/106 H 11/02/16 11:18 Pulse Ox 100 11/02/16 12:05 - Medical History PMH: Anemia, Diabetes, HTN, Seizures - [facility] Procedures INSERTION OF INFUSION DEV INTO SUP VENA CAVA, PERC APPROACH (10/16/16) INTRODUCTION OF NUTRITIONAL INTO PERIPH VEIN, PERC APPROACH (10/16/16) ULTRASONOGRAPHY OF SUPERIOR VENA CAVA, GUIDANCE (10/16/16) Family History: States: Unknown Family Hx - Social History Hx Alcohol Use: No Hx Substance Use: No - Immunization History Hx Tetanus Toxoid Vaccination: No Hx Influenza Vaccination: Yes Hx Pneumococcal Vaccination: Yes Review Of Systems Constitutional: Negative for: Fever, Chills Cardiovascular: Negative for: Chest Pain, Palpitations Respiratory: Negative for: Cough, Shortness of Breath Gastrointestinal: Positive for: Nausea, Vomiting, Abdominal Pain Neurological: Positive for: Seizures. Negative for: Weakness, Numbness, Headache Physical Exam - Physical Exam Appears: Other (patient appears sleepy but oriented. Patient is calm and able to answer questions ) Skin: Warm, Dry Head: Atraumatic Eye(s): bilateral: Normal Inspection, PERRL, EOMI Oral Mucosa: Drooling Tongue: Normal Appearing, No Bite Lips: Normal Appearing Neck: Supple Chest: Symmetrical, No Deformity Cardiovascular: Rhythm Regular Respiratory: Normal Breath Sounds, No Rales, No Rhonchi, No Wheezing Gastrointestinal/Abdominal: Soft, Tenderness (diffuse abdominal tenderness ), No Distention, No Guarding, No Rebound Extremity: Normal ROM, No Tenderness Neurological/Psych: Oriented x3, Normal Speech, Normal Cognition, Normal Cranial Nerves, Normal Motor, Normal Sensation, Normal Reflexes ED Course And Treatment - Laboratory Results Result Diagrams: 11/02/16 10:55 11/02/16 10:55 O2 Sat by Pulse Oximetry: 100 (room air ) Medical Decision Making Medical Decision Making: Labs were preformed and patient given Ativan. Spoke with Dr. Cueva, this is not his private patient. Spoke with Dr. Boris Coker. Agrees with admission. Will consult GI and Neuro. Disposition Discussed With : Elizabeth Coker Doctor Will See Patient In The: Hospital Counseled Patient/Family Regarding: Studies Performed - Disposition Disposition: HOSPITALIZED Disposition Time: 12:23 Condition: GUARDED - Clinical Impression Clinical Impression: Seizure, Gastritis, Abdominal pain, Diabetic gastroparesis, HTN (hypertension) - Scribe Statement The provider has reviewed the documentation as recorded by the Scribe Radha Nguyen All medical record entries made by the Scribe were at my direction and personally dictated by me. I have reviewed the chart and agree that the record accurately reflects my personal performance of the history, physical exam, medical decision making, and the department course for this patient. I have also personally directed, reviewed, and agree with the discharge instructions and disposition. Decision To Admit - Pt Status Changed To: Hospital Disposition Of: Inpatient - Admit Certification Admit to Inpatient:: After my assessment, the patient will require hospitalization for at least two midnights. This is because of the severity of symptoms shown, intensity of services needed, and/or the medical risk in this patient being treated as an outpatient. - InPatient: Physician Admission Certification:: Patient inpatient because of multiple comorbidities and complaints. - . Bed Request Type: Telemetry Admitting Physician: Elizabeth Coker Patient Diagnosis: Seizure, Gastritis, Abdominal pain, Diabetic gastroparesis, HTN (hypertension)
--- NOTE | 2016-11-02 11:46 | RAD ---
PROCEDURE: Radiographs of the chest and abdomen (obstructive series) HISTORY: abdominal pain COMPARISON: Comparison is made to the previous chest x-ray dated 10/24/2016 TECHNIQUE: AP radiograph of the chest, with upright and supine radiographs of the abdomen. FINDINGS: CHEST: Lungs: Clear. Cardiovascular: Normal size heart. No pulmonary vascular congestion. Pleura: No pleural fluid. No pneumothorax. Other findings: None. ABDOMEN AND PELVIS: Bowel: Mild constipation. No evidence of mechanical obstruction. Free air: None. Bones: Unremarkable. Other findings: None. IMPRESSION: Mild constipation. . No evidence of mechanical bowel obstruction.
[2016-11-02] MEDS: HYDROmorphone 1 mg/ml ISec IVP SCH ×2 (17:03→23:00)
[2016-11-02] MEDS: (Novolog) Insulin Aspart, Recombinant 100 u/ml 10 ml vial SC SCH ×2 (18:34→22:57)
[2016-11-02] MEDS: Sodium Chloride 0.9% 1,000 ML IV SCH (18:35)
--- NOTE | 2016-11-02 19:34 | PCM.RRTMUL ---
<YayoChilo - Last Filed: 11/02/16 20:37> STEAM DISTRIBUTION SUPERVISOR Nurses Assessment - Vital Signs Blood Pressure:: 156/96 Pulse Rate:: 91 Respiratory Rate:: 20 Temperature:: 98.7 F I.Reason for STEAM DISTRIBUTION SUPERVISOR - A) Acute Change in Patient: Subjective: STEAM DISTRIBUTION SUPERVISOR called at 7:08 due to 2 witnessed seizures by nursing staff within the last 10 minutes. Per nursing, the pts head and upper body were shaking for several seconds, however there was no pronounced movement of the arms or lower extremities. Upon entering the room, the patient was staring at the wall to her right. She was not responsive to verbal or tactile stimuli, however she did not appear to be in a postictal state. Nursing noted that she did not take her last dose of Keprra or Lamictal. Within 5 minutes, the patient became responsive to questioning, immediately requesting Ativan, stating that she received it in the ED and that it helps calm her down. BP 161/99; HR 102; RR 14; O2 sat 99 on RA. Ordered: CBC, CMP, mag, phos, Prolactin (stat + AM), TSH, FSH, LH. - A) Initial Vital Signs: Blood Pressure: 161/99 Pulse Rate: 102 Respiratory Rate: 14 O2 Sat by Pulse Oximetry: 99 - B) Neurological Status (Select all that apply): Responsive, Oriented, Verbal, Follows Commands, Lethargic. absent: Confused - Constitutional Appears: Non-toxic, No Acute Distress - Head Head Exam: ATRAUMATIC, NORMAL INSPECTION - Eyes Eye Exam: EOMI, Normal appearance, PERRL - Respiratory Exam Respiratory Exam: Clear to Ausculation Bilateral, NORMAL BREATHING PATTERN. absent: Wheezes - Cardiovascular Exam Cardiovascular Exam: Tachycardia, +S1, +S2 - GI/Abdominal Exam GI & Abdominal Exam: Soft, Tenderness, Normal Bowel Sounds. absent: Distended, Guarding - Neurological Exam Neurological Exam: Alert, Awake, CN II-XII Intact, Oriented x3 Additional exam: Patient initially unresponsive to verbal / tactile stimuli. Became responsive within 5 minutes. - Extremities Exam Extremities Exam: Normal Capillary Refill. absent: Pedal Edema, Tenderness <Jerson Brown - Last Filed: 11/03/16 06:38> Attending/Attestation - Attestation I have personally seen and examined this patient.: Yes I have fully participated in the care of the patient.: Yes I have reviewed all pertinent clinical information, including history, physical exam and plan: Yes Notes (Text): Shaking episode witnessed by the nursing staff, at time of eval patient was laying flat with eyes closed, responded to calling her name, denied any musculoskeletal pain, c/o abdominal pain and nausea, requested ativan to be given to calm her down. Upon exam vs reviewed, no tongue bite, no injury to head , neck, chest, arms, legs noticed, abd was soft, bs present, but c/o tenderness generalized, DISTRIBUTION COLLECTION OPERATOR no weakness, sensory loss, good speech, language, planters going down. Labs ordered, continued seizure precautions. Prolactin elevated dd of seizure vs, prolactinoma, h/o type 1dm, CRI, protein urea, glucose was normal.
[2016-11-02] MEDS ORDERED: Potassium Chloride 10 mEq ER Tab PO STA (20:09)
--- NOTE | 2016-11-02 20:09 | CP.PCM.HP ---
History of Present Illness - History of Present Illness History of Present Illness: 26-year-old female patient with past medical history of diabetes, hypertension, seizures, anemia presented to the emergency department by EMS with complaint of severe epigastric pain, patient rates it 10 x 10 in severity, vomiting, convulsions. Upon arrival to the emergency department patient had 2 seizures but recovered fully. As per patient's mother patient has a history of convergence 5 years back and diabetes since age of 10 Patient is on Keppra 3 times daily for convulsions. Patient was delayed patient with his father for psychiatric evaluation multiple times and has been unable to follow-up. In the last visit 2 days ago, abdominal ultrasound was performed which revealed gallstones. Patient's mother states patient was well until yesterday night and symptoms began with epigastric pain and vomiting today morning. Present on Admission - Present on Admission Any Indicators Present on Admission: No Past Patient History - Infectious Disease Hx of Infectious Diseases: None - Past Medical History & Family History Past Medical History?: Yes - Past Social History Smoking Status: Never Smoked - CARDIAC Hx Cardiac Disorders: Yes Hx Hypertension: Yes - PULMONARY Hx Respiratory Disorders: No - NEUROLOGICAL Hx Seizures: Yes - HEENT Hx HEENT Problems: No - RENAL Hx Chronic Kidney Disease: No - ENDOCRINE/METABOLIC Hx Endocrine Disorders: Yes (diabetes) Hx Diabetes Mellitus Type 2: Yes - HEMATOLOGICAL/ONCOLOGICAL Hx Anemia: Yes - INTEGUMENTARY Hx Dermatological Problems: No - MUSCULOSKELETAL/RHEUMATOLOGICAL Hx Musculoskeletal Disorders: No Hx Falls: No - GASTROINTESTINAL Hx Gastrointestinal Disorders: Yes Other/Comment: gastroparesis - GENITOURINARY/GYNECOLOGICAL Hx Genitourinary Disorders: No - PSYCHIATRIC Hx Substance Use: No - SURGICAL HISTORY Hx Surgeries: No - ANESTHESIA Hx Anesthesia: No Hx Anesthesia Reactions: No Hx Malignant Hyperthermia: No Has any member of the family had a problem w/ anesthesia?: No Meds Allergies/Adverse Reactions: Allergies Allergy/AdvReac Type Severity Reaction Status Date / Time No Known Allergies Allergy Verified 11/02/16 09:50 Results - Vital Signs Recent Vital Signs: Last Vital Signs Temp 98.7 F 11/02/16 19:34 Pulse 91 H 11/02/16 19:34 Resp 20 11/02/16 19:34 BP 156/96 H 11/02/16 19:34 Pulse Ox 100 11/02/16 16:05 - Labs Result Diagrams: 11/07/16 06:23 11/07/16 06:23 Labs: Laboratory Results - last 24 hr 11/02/16 16:38 POC Glucose (mg/dL) 279 H Assessment & Plan (1) ARF (acute renal failure) Status: Acute (2) Abdominal pain Status: Acute (3) Acute cystitis Status: Acute (4) Anemia Status: Acute (5) Cholelithiasis Status: Acute (6) Constipation Status: Acute (7) Cough Status: Acute (8) Depressive disorder Status: Acute (9) Diabetes mellitus Status: Acute (10) Diabetic gastroparesis Status: Acute (11) Gastritis Status: Acute (12) Gastroparesis Status: Acute (13) HTN (hypertension) Status: Acute (14) Hyperglycemia Status: Acute (15) Hyperosmolar (nonketotic) coma Status: Acute (16) Prophylactic measure Status: Acute (17) Seizure Status: Acute (18) Seizure Status: Acute (19) Seizure disorder Status: Acute (20) UTI (urinary tract infection) Status: Acute (21) UTI (urinary tract infection) Status: Acute (22) Uncontrolled diabetes mellitus Status: Acute (23) Vomiting Status: Acute - Assessment and Plan (Free Text) Plan: Labs noted Psychiatric consult DVT prophylaxis Fall precautions Seizure precautions Physical therapy evaluation Keppra IV fluids Accu-Chek Zofran Vaccines
[2016-11-02 21:00] LABS: BASO # 0.2 K/uL (0.0-0.2); BASO % 2.6 % (0.0-2.0); EOS # 0.1 K/uL (0.0-0.7); EOS % 0.7 % (0.0-4.0); HEMATOCRIT 27.4 % (34.0-47.0); LYMPH # 2.1 K/uL (1.0-4.3); LYMPH % 27.3 % (20.0-40.0); MEAN CELL VOLUME 87.1 fL (81.0-99.0); MEAN CORPUSCULAR HEMOGLOBIN 28.5 pg (27.0-31.0); MEAN CORPUSCULAR HGB CONC 32.8 g/dL (33.0-37.0); MEAN PLATELET VOLUME 9.4 fL (7.2-11.7); MONO # 0.6 K/uL (0.0-0.8); MONO % 7.7 % (0.0-10.0); RED CELL DISTRIBUTION WIDTH 14.3 % (11.5-14.5); WHITE BLOOD COUNT 7.7 K/uL (4.8-10.8)
[2016-11-02 21:15] LABS: POTASSIUM 3.6 mmol/L (3.6-5.2)
[2016-11-02 21:17] LABS: ALB/GLOB RATIO 0.9 (1.0-2.1); BILIRUBIN,TOTAL 0.4 mg/dL (0.2-1.3)
[2016-11-02 21:18] LABS: CALCIUM 8.2 mg/dl (8.6-10.4); PHOSPHOROUS 3.5 mg/dL (2.5-4.5)
[2016-11-02 21:48] LABS: THYROID STIMULATING HORMONE 2.09 mIU/L (0.46-4.68)
[2016-11-02 21:52] LABS: FSH 2.6 mIU/mL
[2016-11-02] MEDS ORDERED: (Lantus) Insulin Glargine, Recombinant SC SCH (22:00)
[2016-11-02] MEDS: (Lantus) Insulin Glargine, Recombinant SC SCH (23:00)
[2016-11-03] MEDS: HYDROmorphone 1 mg/ml ISec IVP SCH ×2 (05:46→14:38)
[2016-11-03] MEDS: Sodium Chloride 0.9% 1,000 ML IV SCH ×2 (07:35→22:18)
[2016-11-03] MEDS: (Novolog) Insulin Aspart, Recombinant 100 u/ml 10 ml vial SC SCH ×7 (08:46→23:00)
[2016-11-03] MEDS: Potassium Chloride 10 mEq ER Tab PO SCH (08:47)
[2016-11-03] MEDS ORDERED: Pantoprazole 40 mg EC Tab PO SCH (10:00)
[2016-11-03] MEDS: Enoxaparin 40 mg Syringe SC SCH (10:14)
--- NOTE | 2016-11-03 11:35 | CP.PCM.PN ---
Subjective - Date & Time of Evaluation Date of Evaluation: 11/03/16 Time of Evaluation: 12:40 - Subjective Subjective: clinically same Objective - Vital Signs/Intake and Output Vital Signs (last 24 hours): Temp Pulse Resp BP Pulse Ox 98.4 F 103 H 18 126/83 100 11/03/16 07:30 11/03/16 10:20 11/03/16 07:30 11/03/16 10:20 11/03/16 07:30 Intake and Output: 11/03/16 11/03/16 06:59 18:59 Intake Total 820 Balance 820 - Medications Medications: Current Medications Acetaminophen (Tylenol 325mg Tab) 650 mg PO BID PRN PRN Reason: Fever >100.4 F Amlodipine Besylate (Norvasc) 10 mg PO DAILY [facility] Last Admin: 11/03/16 10:14 Dose: 10 mg Cyanocobalamin (Vitamin B12 1000 Mcg Tab) 1,000 mcg PO DAILY [facility] Last Admin: 11/03/16 10:16 Dose: 1,000 mcg Enoxaparin Sodium (Lovenox) 40 mg SC DAILY [facility] Last Admin: 11/03/16 10:14 Dose: 40 mg Ferrous Sulfate (Feosol) 325 mg PO BID [facility] Last Admin: 11/03/16 10:14 Dose: 325 mg Hydromorphone HCl (Dilaudid) 1 mg IVP Q8 [facility] Last Admin: 11/03/16 05:46 Dose: Not Given Sodium Chloride (Sodium Chloride 0.9%) 1,000 mls @ 75 mls/hr IV .[id number] [facility] Last Admin: 11/03/16 07:35 Dose: Not Given Levetiracetam 750 mg/ Sodium (Chloride) 107.5 mls @ 420 mls/hr IVPB Q12 [facility] Last Admin: 11/03/16 10:13 Dose: 420 mls/hr Insulin Aspart (Novolog) 0 unit SC ACHS [facility] PRN Reason: Protocol Last Admin: 11/03/16 08:46 Dose: 3 unit Insulin Aspart (Novolog) 5 unit SC ACTID [facility] Last Admin: 11/03/16 08:46 Dose: 5 unit Insulin Glargine (Lantus) 8 unit SC HS [facility] Last Admin: 11/02/16 23:00 Dose: 8 units Lamotrigine (Lamictal) 25 mg PO BID [facility] Last Admin: 11/03/16 10:15 Dose: 25 mg Levetiracetam (Keppra) 750 mg PO BID [facility] Lisinopril (Zestril) 20 mg PO DAILY [facility] Last Admin: 11/03/16 10:14 Dose: 20 mg Lorazepam (Ativan) 1 mg IVP Q4H PRN PRN Reason: Seizure activity Last Admin: 11/03/16 03:33 Dose: 1 mg Metoclopramide HCl (Reglan) 10 mg PO Q8 PRN PRN Reason: Nausea/Vomiting Ondansetron HCl (Zofran Inj) 4 mg IVP Q8 PRN PRN Reason: Nausea/Vomiting Last Admin: 11/03/16 00:59 Dose: 4 mg Pantoprazole Sodium (Protonix Ec Tab) 40 mg PO DAILY [facility] Last Admin: 11/03/16 10:14 Dose: 40 mg Pneumococcal Polyvalent Vaccine (Pneumovax 23 Vaccine) 0.5 ml IM .ONCE ONE Stop: 11/05/16 10:01 Potassium Chloride (Klor-Con 10) 10 meq PO BRK [facility] Last Admin: 11/03/16 08:47 Dose: 10 meq - Labs Labs: 11/02/16 20:56 11/02/16 20:56 - Constitutional Appears: Well - Head Exam Head Exam: ATRAUMATIC, NORMAL INSPECTION, NORMOCEPHALIC - Eye Exam Eye Exam: EOMI, Normal appearance, PERRL Pupil Exam: NORMAL ACCOMODATION, PERRL - ENT Exam ENT Exam: Mucous Membranes Moist, Normal Exam - Neck Exam Neck Exam: Full ROM, Normal Inspection. absent: Lymphadenopathy - Respiratory Exam Respiratory Exam: Decreased Breath Sounds - Cardiovascular Exam Cardiovascular Exam: REGULAR RHYTHM, +S1, +S2 - GI/Abdominal Exam GI & Abdominal Exam: Soft, Diminished Bowel Sounds - Rectal Exam Rectal Exam: Deferred Assessment and Plan (1) ARF (acute renal failure) Status: Acute (2) Abdominal pain Status: Acute (3) Acute cystitis Status: Acute (4) Anemia Status: Acute (5) Cholelithiasis Status: Acute (6) Constipation Status: Acute (7) Cough Status: Acute (8) Depressive disorder Status: Acute (9) Diabetes mellitus Status: Acute (10) Diabetic gastroparesis Status: Acute (11) Gastritis Status: Acute (12) Gastroparesis Status: Acute (13) HTN (hypertension) Status: Acute (14) Hyperglycemia Status: Acute (15) Hyperosmolar (nonketotic) coma Status: Acute (16) Prophylactic measure Status: Acute (17) Seizure Status: Acute (18) Seizure Status: Acute (19) Seizure disorder Status: Acute (20) UTI (urinary tract infection) Status: Acute (21) UTI (urinary tract infection) Status: Acute (22) Uncontrolled diabetes mellitus Status: Acute (23) Vomiting Status: Acute - Assessment and Plan (Free Text) Plan: Patient clinically improving Labs noted Lovenox Fall precautions Seizure precautions Physical therapy Psychiatric consult Mukund Accu-Chek Insulin Zofran Vaccines
--- NOTE | 2016-11-03 13:42 | CP.PCM.CON ---
History of Present Illness - History of Present Illness History of Present Illness: Asked to see pt for GI service for vomiting. Ho DM SZ. Recently discharged after ICU admission for hyperosmolar. Pt reports issues with nausea for 5 yrs. A few yrs ago had EGD with gastrits. Has constipation. Pt reports ahving gastroparesisi. AHe had a nurmal day before discharged. Review of Systems - Constitutional Constitutional: Fatigue. absent: Fever, Weight Gain - Cardiovascular Cardiovascular: absent: Chest Pain, Dyspnea - Respiratory Respiratory: absent: Hemoptysis - Gastrointestinal Gastrointestinal: Abdominal Pain, Constipation, Nausea, Vomiting. absent: Diarrhea, Hematemesis, Hematochezia, Melena - Genitourinary Genitourinary: absent: Flank Pain, Hematuria - Integumentary Integumentary: absent: Jaundice - Neurological Neurological: absent: Syncope Past Patient History - Infectious Disease Hx of Infectious Diseases: None - Past Medical History & Family History Past Medical History?: Yes - Past Social History Smoking Status: Never Smoked - CARDIAC Hx Cardiac Disorders: Yes Hx Hypertension: Yes - PULMONARY Hx Respiratory Disorders: No - NEUROLOGICAL Hx Seizures: Yes - HEENT Hx HEENT Problems: No - RENAL Hx Chronic Kidney Disease: No - ENDOCRINE/METABOLIC Hx Endocrine Disorders: Yes (diabetes) Hx Diabetes Mellitus Type 2: Yes - HEMATOLOGICAL/ONCOLOGICAL Hx Anemia: Yes - INTEGUMENTARY Hx Dermatological Problems: No - MUSCULOSKELETAL/RHEUMATOLOGICAL Hx Musculoskeletal Disorders: No Hx Falls: No - GASTROINTESTINAL Hx Gastrointestinal Disorders: Yes Other/Comment: gastroparesis - GENITOURINARY/GYNECOLOGICAL Hx Genitourinary Disorders: No - PSYCHIATRIC Hx Substance Use: No - SURGICAL HISTORY Hx Surgeries: No - ANESTHESIA Hx Anesthesia: No Hx Anesthesia Reactions: No Hx Malignant Hyperthermia: No Has any member of the family had a problem w/ anesthesia?: No Meds Allergies/Adverse Reactions: Allergies Allergy/AdvReac Type Severity Reaction Status Date / Time No Known Allergies Allergy Verified 11/02/16 09:50 - Medications Medications: Current Medications Acetaminophen (Tylenol 325mg Tab) 650 mg PO BID PRN PRN Reason: Fever >100.4 F Amlodipine Besylate (Norvasc) 10 mg PO DAILY [facility] Last Admin: 11/03/16 10:14 Dose: 10 mg Cyanocobalamin (Vitamin B12 1000 Mcg Tab) 1,000 mcg PO DAILY [facility] Last Admin: 11/03/16 10:16 Dose: 1,000 mcg Enoxaparin Sodium (Lovenox) 40 mg SC DAILY [facility] Last Admin: 11/03/16 10:14 Dose: 40 mg Ferrous Sulfate (Feosol) 325 mg PO BID [facility] Last Admin: 11/03/16 10:14 Dose: 325 mg Hydromorphone HCl (Dilaudid) 1 mg IVP Q8 [facility] Last Admin: 11/03/16 05:46 Dose: Not Given Sodium Chloride (Sodium Chloride 0.9%) 1,000 mls @ 75 mls/hr IV .[id number] [facility] Last Admin: 11/03/16 07:35 Dose: Not Given Levetiracetam 750 mg/ Sodium (Chloride) 107.5 mls @ 420 mls/hr IVPB Q12 [facility] Last Admin: 11/03/16 10:13 Dose: 420 mls/hr Insulin Aspart (Novolog) 0 unit SC ACHS [facility] PRN Reason: Protocol Last Admin: 11/03/16 12:20 Dose: Not Given Insulin Aspart (Novolog) 5 unit SC ACTID [facility] Last Admin: 11/03/16 12:39 Dose: 5 unit Insulin Glargine (Lantus) 8 unit SC HS [facility] Last Admin: 11/02/16 23:00 Dose: 8 units Lamotrigine (Lamictal) 25 mg PO BID [facility] Last Admin: 11/03/16 10:15 Dose: 25 mg Levetiracetam (Keppra) 750 mg PO BID [facility] Lisinopril (Zestril) 20 mg PO DAILY [facility] Last Admin: 11/03/16 10:14 Dose: 20 mg Lorazepam (Ativan) 1 mg IVP Q4H PRN PRN Reason: Seizure activity Last Admin: 11/03/16 13:14 Dose: 1 mg Metoclopramide HCl (Reglan) 10 mg PO Q8 PRN PRN Reason: Nausea/Vomiting Ondansetron HCl (Zofran Inj) 4 mg IVP Q8 PRN PRN Reason: Nausea/Vomiting Last Admin: 11/03/16 00:59 Dose: 4 mg Pantoprazole Sodium (Protonix Ec Tab) 40 mg PO DAILY [facility] Last Admin: 11/03/16 10:14 Dose: 40 mg Pneumococcal Polyvalent Vaccine (Pneumovax 23 Vaccine) 0.5 ml IM .ONCE ONE Stop: 11/05/16 10:01 Potassium Chloride (Klor-Con 10) 10 meq PO BRK [facility] Last Admin: 11/03/16 08:47 Dose: 10 meq Physical Exam - Constitutional Appears: Well - Respiratory Exam Respiratory Exam: Clear to Auscultation Bilateral - Cardiovascular Exam Cardiovascular Exam: RRR - GI/Abdominal Exam GI & Abdominal Exam: Normal Bowel Sounds, Soft. absent: Distended, Firm, Guarding, Rebound, Tenderness - Extremities Exam Extremities exam: Negative for: tenderness - Neurological Exam Neurological exam: Alert, Oriented x3 Results - Vital Signs Recent Vital Signs: Last Vital Signs Temp 98.4 F 11/03/16 07:30 Pulse 103 H 11/03/16 10:20 Resp 18 11/03/16 07:30 BP 126/83 11/03/16 10:20 Pulse Ox 100 11/03/16 07:30 - Labs Result Diagrams: 11/02/16 20:56 11/02/16 20:56 Labs: Laboratory Results - last 24 hr 11/02/16 11/02/16 11/02/16 16:38 20:56 20:56 WBC 7.7 RBC 3.14 L Hgb 9.0 L D Hct 27.4 L MCV 87.1 MCH 28.5 MCHC 32.8 L RDW 14.3 Plt Count 257 MPV 9.4 Neut % (Auto) 61.7 Lymph % (Auto) 27.3 Ray % (Auto) 7.7 Eos % (Auto) 0.7 Baso % (Auto) 2.6 H Neut # 4.8 Lymph # 2.1 Ray # 0.6 Eos # 0.1 Baso # 0.2 Sodium 134 Potassium 3.6 Chloride 99 Carbon Dioxide 25 Anion Gap 13 BUN 17 Creatinine 1.5 H Est GFR ( Amer) 50 Est GFR (Non-Af Amer) 42 POC Glucose (mg/dL) 279 H Random Glucose 160 H Calcium 8.2 L Phosphorus 3.5 Magnesium 2.0 Total Bilirubin 0.4 AST 19 ALT 20 Alkaline Phosphatase 78 Total Creatine Kinase 44 Total Protein 5.0 L Albumin 2.3 L D Globulin 2.7 Albumin/Globulin Ratio 0.9 L TSH 3rd Generation 2.09 FSH 3rd Generation 2.6 Luteinizing Hormone 2.4 Prolactin 168.4 H 11/02/16 11/03/16 11/03/16 21:25 04:00 06:18 WBC RBC Hgb Hct MCV MCH MCHC RDW Plt Count MPV Neut % (Auto) Lymph % (Auto) Ray % (Auto) Eos % (Auto) Baso % (Auto) Neut # Lymph # Ray # Eos # Baso # Sodium Potassium Chloride Carbon Dioxide Anion Gap BUN Creatinine Est GFR ( Amer) Est GFR (Non-Af Amer) POC Glucose (mg/dL) 172 H 258 H Random Glucose Calcium Phosphorus Magnesium Total Bilirubin AST ALT Alkaline Phosphatase Total Creatine Kinase Total Protein Albumin Globulin Albumin/Globulin Ratio TSH 3rd Generation FSH 3rd Generation Luteinizing Hormone Prolactin 252.0 H 11/03/16 12:11 WBC RBC Hgb Hct MCV MCH MCHC RDW Plt Count MPV Neut % (Auto) Lymph % (Auto) Ray % (Auto) Eos % (Auto) Baso % (Auto) Neut # Lymph # Ray # Eos # Baso # Sodium Potassium Chloride Carbon Dioxide Anion Gap BUN Creatinine Est GFR ( Amer) Est GFR (Non-Af Amer) POC Glucose (mg/dL) 108 Random Glucose Calcium Phosphorus Magnesium Total Bilirubin AST ALT Alkaline Phosphatase Total Creatine Kinase Total Protein Albumin Globulin Albumin/Globulin Ratio TSH 3rd Generation FSH 3rd Generation Luteinizing Hormone Prolactin Assessment & Plan (1) Constipation Assessment and Plan: seen on CT/sono. Status: Acute (2) Abdominal pain Assessment and Plan: COnsdier gastroparesis, gastritis. Status: Acute (3) Diabetic gastroparesis Status: Acute (4) Gastritis Status: Acute (5) HTN (hypertension) Status: Acute (6) Seizure Status: Acute (7) ARF (acute renal failure) Status: Acute (8) Anemia Assessment and Plan: chronic disease/. Status: Acute (9) Cholelithiasis Status: Acute (10) Diabetes mellitus Status: Acute (11) Vomiting Assessment and Plan: Multifactorial: Consider Dm, gastroparesis, constipation, gastritis Rec: Gastric emptying study. Protonix Reglan Consider endoscopy Treat constipation. Status: Acute
--- NOTE | 2016-11-03 14:28 | MRI ---
PROCEDURE: MRI BRAIN WITHOUT CONTRAST HISTORY: seizure protocol COMPARISON: Comparison made with CT scan brain dated 10/16/2016. TECHNIQUE: Multiplanar, multisequence MR images of the brain were obtained without intravenous contrast enhancement. FINDINGS: HEMORRHAGE: No acute parenchymal, subarachnoid nor extra-axial hemorrhage. No evidence of hemosiderin deposition identified on gradient echo weighted sequence. DWI: No evidence of an acute or early subacute infarction seen on diffusion imaging. . BRAIN PARENCHYMA: No gross congenital No evidence of acute infarct no obvious parenchymal nor extra-axial mass or collection seen on this noncontrast study. No gross congenital anomalies. . Hippocampal formations appear grossly unremarkable. . Midline structures unremarkable Very mild generalized volume loss. VENTRICLES: No obstructive hydrocephalus. CRANIUM: Unremarkable. ORBITS: Changes of bilateral cataract surgery. PARANASAL SINUSES/MASTOIDS: Partial opacification both mastoid air complexes left greater than right. . There is minor mucosal thickening seen both maxillary antra. VASCULAR SYSTEM: Skull base flow voids intact. OTHER FINDINGS: None. IMPRESSION: No acute intracranial hemorrhage or infarctions. . There are no gross intracranial abnormalities. Mild generalized volume loss. Partial opacification both mastoid air complexes. Changes of bilateral cataract surgery.
--- NOTE | 2016-11-03 15:18 | CP.PCM.PN ---
Subjective - Date & Time of Evaluation Date of Evaluation: 11/03/16 Time of Evaluation: 15:13 - Subjective Subjective: PGY2 progress note for Dr. Coker 26 year old female with past medical history of DM, gastroperesis, CKD, questionable seizure disorder is admitted for epigastric abdominal pain, N/V that began on thursday night. Patient was discharged from hospital about 2 days ago after being admitted for the same symptoms. Patient's condition had improved prior to discharged but states that epigastric pain returned the day after discharge. Pt is seen and examined at bedside. Patient continues to complain of epigastric abdominal, N/V. Denies having any CP, SOB, dysuria, C/D. Last BM was yesterday. Overnight, patient had seizure like activity witnessed and rapid response was called on patient. Patient returned to baseline within a few minutes and no tongue biting, or bowel or bladder incontinence were noted. After she came to her baseline mentation, she immediately requested Ativan saying that that helps with her anxiety. Objective - Vital Signs/Intake and Output Vital Signs (last 24 hours): Temp Pulse Resp BP Pulse Ox 98.4 F 103 H 18 126/83 100 11/03/16 07:30 11/03/16 10:20 11/03/16 07:30 11/03/16 10:20 11/03/16 07:30 Intake and Output: 11/03/16 11/03/16 06:59 18:59 Intake Total 820 Balance 820 - Medications Medications: Current Medications Acetaminophen (Tylenol 325mg Tab) 650 mg PO BID PRN PRN Reason: Fever >100.4 F Amlodipine Besylate (Norvasc) 10 mg PO DAILY [facility] Last Admin: 11/03/16 10:14 Dose: 10 mg Cyanocobalamin (Vitamin B12 1000 Mcg Tab) 1,000 mcg PO DAILY [facility] Last Admin: 11/03/16 10:16 Dose: 1,000 mcg Docusate Sodium (Colace) 100 mg PO BID [facility] Enoxaparin Sodium (Lovenox) 40 mg SC DAILY [facility] Last Admin: 11/03/16 10:14 Dose: 40 mg Ferrous Sulfate (Feosol) 325 mg PO BID [facility] Last Admin: 11/03/16 10:14 Dose: 325 mg Hydromorphone HCl (Dilaudid) 1 mg IVP Q8 [facility] Last Admin: 11/03/16 14:38 Dose: Not Given Sodium Chloride (Sodium Chloride 0.9%) 1,000 mls @ 75 mls/hr IV .[id number] [facility] Last Admin: 11/03/16 07:35 Dose: Not Given Levetiracetam 750 mg/ Sodium (Chloride) 107.5 mls @ 420 mls/hr IVPB Q12 [facility] Last Admin: 11/03/16 10:13 Dose: 420 mls/hr Insulin Aspart (Novolog) 0 unit SC ACHS [facility] PRN Reason: Protocol Last Admin: 11/03/16 12:20 Dose: Not Given Insulin Aspart (Novolog) 5 unit SC ACTID [facility] Last Admin: 11/03/16 12:39 Dose: 5 unit Insulin Glargine (Lantus) 8 unit SC HS [facility] Last Admin: 11/02/16 23:00 Dose: 8 units Lactulose (Enulose) 20 gm PO HS [facility] Lamotrigine (Lamictal) 25 mg PO BID [facility] Last Admin: 11/03/16 10:15 Dose: 25 mg Levetiracetam (Keppra) 750 mg PO BID [facility] Lisinopril (Zestril) 20 mg PO DAILY [facility] Last Admin: 11/03/16 10:14 Dose: 20 mg Lorazepam (Ativan) 1 mg IVP Q4H PRN PRN Reason: Seizure activity Last Admin: 11/03/16 13:14 Dose: 1 mg Metoclopramide HCl (Reglan) 10 mg PO Q8 PRN PRN Reason: Nausea/Vomiting Ondansetron HCl (Zofran Inj) 4 mg IVP Q8 PRN PRN Reason: Nausea/Vomiting Last Admin: 11/03/16 14:30 Dose: 4 mg Pantoprazole Sodium (Protonix Ec Tab) 40 mg PO DAILY [facility] Last Admin: 11/03/16 10:14 Dose: 40 mg Pneumococcal Polyvalent Vaccine (Pneumovax 23 Vaccine) 0.5 ml IM .ONCE ONE Stop: 11/05/16 10:01 Potassium Chloride (Klor-Con 10) 10 meq PO BRK [facility] Last Admin: 11/03/16 08:47 Dose: 10 meq - Labs Labs: 11/02/16 20:56 11/02/16 20:56 - Constitutional Appears: Non-toxic, No Acute Distress - Head Exam Head Exam: ATRAUMATIC - Eye Exam Eye Exam: EOMI - ENT Exam ENT Exam: Mucous Membranes Moist - Respiratory Exam Respiratory Exam: Clear to Ausculation Bilateral. absent: Accessory Muscle Use , Rales, Rhonchi, Wheezes, Respiratory Distress - Cardiovascular Exam Cardiovascular Exam: REGULAR RHYTHM, +S1, +S2. absent: Murmur - GI/Abdominal Exam GI & Abdominal Exam: Soft, Normal Bowel Sounds. absent: Distended, Firm, Guarding, Rigid, Tenderness, Organomegaly - Extremities Exam Extremities Exam: absent: Pedal Edema, Tenderness - Neurological Exam Neurological Exam: Alert, Awake, Oriented x3 - Psychiatric Exam Psychiatric exam: Normal Affect, Normal Mood - Skin Skin Exam: Dry, Intact, Normal Color, Warm Assessment and Plan - Assessment and Plan (Free Text) Assessment: Seizures: Continue Keppra 750 mg PO BID Continue Lamictal 25mg PO BID Continue Levetriacetam 750 mg IV Neuro consulted- Dr. Hair - help appreciated Seizure precautions Prolactin elevated on admission MRI of brain done on 11/03 showed no hemorrhage or infarction and no gross intracranial abnormality. Mild generalized volume loss Vitamin B12 po qd Ativan 1 mg IVP q4 prn NS 75 cc Gastroparesis GI, Dr. Licona is consulted Tolerating a diet. Protonix 40 mg IV daily Zofran for nausea Dilaudid for pain prn Reglan 10 mg po q8 prn Constipation Colace 100 mg po BID Lactulose 20 mg po HS HTN Norvasc 10mg PO daily Losartan 50mg PO daily Monitor vitals Uncontrolled DM Patient counseled on strict adherence to medication regiment at home Currently on ISS Accuchecks Novolog 5u SC AC ACTID Lantus 8u SC HS HgA1C on prior admission 9.2 CKD Improving GFR 30-40 Anemia Continue iron supplements Hgb stable Prophylactic Measures Protonix 40mg IV daily SCDs Lovenox Patient counseled on discontinuing use of cannabis in light of seizure disorder PICC line removed before discharge Orders and management per Dr. Coker
--- NOTE | 2016-11-03 18:23 | CP.PCM.PN ---
Subjective - Date & Time of Evaluation Date of Evaluation: 11/03/16 - Subjective Subjective: Patient was brought in to [facility] following three episodes of seizures being witnessed by her family members and one seizure episode being witnessed at the emergency room Patient is a 26 year old right handed female presenting with recurrent episode of seizures for the last three years. She claims that all seizures have been preceded with pain and anxiety. Patient notes these episodes are followed with the second episodes, some episodes are associated with lack of consciousness, none of the episodes are associated with bowel and bladder incontinent or bitten tongue. Following the episodes, the patient does not have any focal weakness or change in mental status. Past History: Medical: IDDM. HTN. Seizures. Osteoporosis. Gastroparesis. Social: Denies alcohol use and smoking Objective - Vital Signs/Intake and Output Vital Signs (last 24 hours): Temp Pulse Resp BP Pulse Ox 98.2 F 91 H 20 121/74 100 11/03/16 16:00 11/03/16 16:00 11/03/16 16:00 11/03/16 16:00 11/03/16 16:00 Blood Pressure: 150/87 Mean arterial pressure: 108 Respiratory Rate: 16 Temperature: 98.22 Pulse: 92. Regular Intake and Output: 11/03/16 11/03/16 06:59 18:59 Intake Total 820 932 Balance 820 932 - Medications Medications: Current Medications Acetaminophen (Tylenol 325mg Tab) 650 mg PO BID PRN PRN Reason: Fever >100.4 F Amlodipine Besylate (Norvasc) 10 mg PO DAILY [facility] Last Admin: 11/03/16 10:14 Dose: 10 mg Cyanocobalamin (Vitamin B12 1000 Mcg Tab) 1,000 mcg PO DAILY [facility] Last Admin: 11/03/16 10:16 Dose: 1,000 mcg Docusate Sodium (Colace) 100 mg PO BID [facility] Enoxaparin Sodium (Lovenox) 40 mg SC DAILY [facility] Last Admin: 11/03/16 10:14 Dose: 40 mg Ferrous Sulfate (Feosol) 325 mg PO BID [facility] Last Admin: 11/03/16 10:14 Dose: 325 mg Hydromorphone HCl (Dilaudid) 1 mg IVP Q8 [facility] Last Admin: 11/03/16 14:38 Dose: Not Given Sodium Chloride (Sodium Chloride 0.9%) 1,000 mls @ 75 mls/hr IV .[id number] [facility] Last Admin: 11/03/16 07:35 Dose: Not Given Levetiracetam 750 mg/ Sodium (Chloride) 107.5 mls @ 420 mls/hr IVPB Q12 [facility] Last Admin: 11/03/16 10:13 Dose: 420 mls/hr Insulin Aspart (Novolog) 0 unit SC ACHS [facility] PRN Reason: Protocol Last Admin: 11/03/16 12:20 Dose: Not Given Insulin Aspart (Novolog) 5 unit SC ACTID [facility] Last Admin: 11/03/16 12:39 Dose: 5 unit Insulin Glargine (Lantus) 8 unit SC HS [facility] Last Admin: 11/02/16 23:00 Dose: 8 units Lactulose (Enulose) 20 gm PO HS [facility] Lamotrigine (Lamictal) 25 mg PO BID [facility] Last Admin: 11/03/16 10:15 Dose: 25 mg Levetiracetam (Keppra) 750 mg PO BID [facility] Lisinopril (Zestril) 20 mg PO DAILY [facility] Last Admin: 11/03/16 10:14 Dose: 20 mg Lorazepam (Ativan) 1 mg IVP Q4H PRN PRN Reason: Seizure activity Last Admin: 11/03/16 13:14 Dose: 1 mg Metoclopramide HCl (Reglan) 10 mg PO Q8 PRN PRN Reason: Nausea/Vomiting Ondansetron HCl (Zofran Inj) 4 mg IVP Q8 PRN PRN Reason: Nausea/Vomiting Last Admin: 11/03/16 14:30 Dose: 4 mg Pantoprazole Sodium (Protonix Ec Tab) 40 mg PO DAILY [facility] Last Admin: 11/03/16 10:14 Dose: 40 mg Pneumococcal Polyvalent Vaccine (Pneumovax 23 Vaccine) 0.5 ml IM .ONCE ONE Stop: 11/05/16 10:01 Potassium Chloride (Klor-Con 10) 10 meq PO BRK [facility] Last Admin: 11/03/16 08:47 Dose: [address] Hair dictation: Hydralazine. Lorazepam. Iron supplements. Keppra. Lamotrigine. Insulin. Amlodipine. NovoLog - Labs Labs: 11/02/16 20:56 11/02/16 20:[address] of head that has yet to be completed WBC: 7.0 Hemoglobin: 8.9 Hematocrit: 27.3 Platelets: 252 Sodium: 130 Potassium: 3.8 Chloride: 103 Bicarbonate: 25 GFR: 55 Calcium: 8.1 Glucose: 107 Prolactin: Pending Urine toxicology: reccommended, still pending Assessment and Plan - Assessment and Plan (Free Text) Assessment: Patient is sleeping, she was examined in presence of her mother. Constitutional: Easily arousable on calling of first name. Mental status is awake, alert, and oriented to person, place, and time. Neurological: Clear speech. Naming the person in front of her. Physical completes all with the normal. Neuro exam: extremities should feel intact. Eyes: PERRL. EOMI. No nystagmus. -No physio-sensory deficits. Significant facial asymmetry manifesting as flatening of the right nasolabial fold Ears: Hearing is normal. Tend is mid-length, good gag Motor: No deficit. No turgor. Able to lift both upper extremities against gravity. Right sided leg seems to be extended/rotated. Different flexors to the right side bicep/ brachial triceps. I put a flexor to compare with the left side. Both knees are absent, both angles are absent. The plantars are upgoing on to the right side. Neck: Supple. No carotid bruit. Heart: Regular sounds. Plan: 1)Medication has to be adjusted for now until the investigation is completed. 2)Continue Keppra as patient has been taking, Lamotrigine I do not think is needed but she's taking very subtle therapeutic low level doses. 3)Work up as per the order as soon as the patient is requested to have MRI of brain under electroencephalogram. 4)Patient should be kept for seizure precaution. 5)Patient should control her diabetes and blood pressure. 6)Will be followed closely, patient's condition has been extensively discussed with her and her mother as well.
[2016-11-03] MEDS ORDERED: HYDROmorphone 1 mg/ml ISec IVP STA (18:45)
[2016-11-03] MEDS: (Lantus) Insulin Glargine, Recombinant SC SCH (22:12)
[2016-11-04] MEDS: (Novolog) Insulin Aspart, Recombinant 100 u/ml 10 ml vial SC SCH ×7 (07:30→22:00)
--- NOTE | 2016-11-04 08:45 | CP.PCM.PN ---
Subjective - Date & Time of Evaluation Date of Evaluation: 11/04/16 Time of Evaluation: 08:30 - Subjective Subjective: f/u vomiting Still nause and vomiting.. Sl epig pain. Denies RB, melena , YOUNGER cough fever, hematuria, dysphagia, YOUNGER Objective - Vital Signs/Intake and Output Vital Signs (last 24 hours): Temp Pulse Resp BP Pulse Ox 97.8 F 98 H 20 165/102 H 99 11/04/16 07:00 11/04/16 07:00 11/04/16 07:00 11/04/16 07:00 11/04/16 07:00 Intake and Output: 11/04/16 11/04/16 06:59 18:59 Intake Total 1080 Balance 1080 - Medications Medications: Current Medications Acetaminophen (Tylenol 325mg Tab) 650 mg PO BID PRN PRN Reason: Fever >100.4 F Amlodipine Besylate (Norvasc) 10 mg PO DAILY [facility] Last Admin: 11/03/16 10:14 Dose: 10 mg Cyanocobalamin (Vitamin B12 1000 Mcg Tab) 1,000 mcg PO DAILY [facility] Last Admin: 11/03/16 10:16 Dose: 1,000 mcg Docusate Sodium (Colace) 100 mg PO BID [facility] Last Admin: 11/03/16 18:22 Dose: 100 mg Enoxaparin Sodium (Lovenox) 40 mg SC DAILY [facility] Last Admin: 11/03/16 10:14 Dose: 40 mg Ferrous Sulfate (Feosol) 325 mg PO BID [facility] Last Admin: 11/03/16 18:22 Dose: 325 mg Sodium Chloride (Sodium Chloride 0.9%) 1,000 mls @ 75 mls/hr IV .[id number] [facility] Last Admin: 11/03/16 22:18 Dose: 75 mls/hr Levetiracetam 750 mg/ Sodium (Chloride) 107.5 mls @ 420 mls/hr IVPB Q12 [facility] Last Admin: 11/03/16 22:08 Dose: 420 mls/hr Insulin Aspart (Novolog) 0 unit SC ACHS [facility] PRN Reason: Protocol Last Admin: 11/03/16 23:00 Dose: Not Given Insulin Aspart (Novolog) 5 unit SC ACTID [facility] Last Admin: 11/03/16 18:29 Dose: 5 unit Insulin Glargine (Lantus) 8 unit SC HS [facility] Last Admin: 11/03/16 22:12 Dose: 8 units Lactulose (Enulose) 20 gm PO HS [facility] Last Admin: 11/03/16 22:12 Dose: Not Given Lamotrigine (Lamictal) 25 mg PO BID [facility] Last Admin: 11/03/16 23:38 Dose: 25 mg Levetiracetam (Keppra) 750 mg PO BID [facility] Lisinopril (Zestril) 20 mg PO DAILY [facility] Last Admin: 11/03/16 10:14 Dose: 20 mg Lorazepam (Ativan) 1 mg IVP Q4H PRN PRN Reason: Seizure activity Last Admin: 11/03/16 13:14 Dose: 1 mg Metoclopramide HCl (Reglan) 10 mg PO Q8 PRN PRN Reason: Nausea/Vomiting Morphine Sulfate (Morphine) 2 mg IVP Q8 PRN PRN Reason: pain Last Admin: 11/04/16 03:00 Dose: 2 mg Ondansetron HCl (Zofran Inj) 4 mg IVP Q8 PRN PRN Reason: Nausea/Vomiting Last Admin: 11/04/16 06:51 Dose: 4 mg Pantoprazole Sodium (Protonix Ec Tab) 40 mg PO DAILY [facility] Last Admin: 11/03/16 10:14 Dose: 40 mg Pneumococcal Polyvalent Vaccine (Pneumovax 23 Vaccine) 0.5 ml IM .ONCE ONE Stop: 11/05/16 10:01 Potassium Chloride (Klor-Con 10) 10 meq PO BRK [facility] Last Admin: 11/03/16 08:47 Dose: 10 meq - Labs Labs: 11/02/16 20:56 11/02/16 20:56 - Constitutional Appears: Non-toxic - Respiratory Exam Respiratory Exam: Clear to Ausculation Bilateral - Cardiovascular Exam Cardiovascular Exam: RRR - GI/Abdominal Exam GI & Abdominal Exam: Soft, Normal Bowel Sounds. absent: Guarding, Tenderness, Rebound - Extremities Exam Extremities Exam: absent: Calf Tenderness - Neurological Exam Neurological Exam: Alert, Oriented x3 Assessment and Plan (1) Constipation Status: Acute (2) Abdominal pain Status: Acute (3) Diabetic gastroparesis Status: Acute (4) Gastritis Status: Acute (5) HTN (hypertension) Status: Acute (6) Seizure Status: Acute (7) ARF (acute renal failure) Status: Acute (8) Anemia Assessment & Plan: Hb same as last admission Status: Acute (9) Cholelithiasis Status: Acute (10) Diabetes mellitus Status: Acute (11) Vomiting Assessment & Plan: Unclear etiology. Likely multifactorial- gastroparesis, gastritis. Pt could mnot do gastric emptying test due to vomiting. Will schedule endosocpy Status: Acute
--- NOTE | 2016-11-04 09:34 | CP.PCM.PN ---
Subjective - Date & Time of Evaluation Date of Evaluation: 11/04/16 Time of Evaluation: 08:55 - Subjective Subjective: PGY3 Medicine Note - Dr. Jackelyn Coker's service: Patient seen and examined at bedside this AM. Patient says she does not feel well. Patient says she has been vomiting since last night and cannot stop. Patient says she is vomiting up rice which is what she ate last night. Small blood streak is seen in vomit basin on white vomit. Patient reports severe epigastric burning. Patient denies fever, chills, chest pain, SOB. Objective - Vital Signs/Intake and Output Vital Signs (last 24 hours): Temp Pulse Resp BP Pulse Ox 97.8 F 90 20 136/87 99 11/04/16 07:00 11/04/16 09:26 11/04/16 07:00 11/04/16 09:26 11/04/16 07:00 Intake and Output: 11/04/16 11/04/16 06:59 18:59 Intake Total 1080 Balance 1080 - Medications Medications: Current Medications Acetaminophen (Tylenol 325mg Tab) 650 mg PO BID PRN PRN Reason: Fever >100.4 F Amlodipine Besylate (Norvasc) 10 mg PO DAILY [facility] Last Admin: 11/03/16 10:14 Dose: 10 mg Cyanocobalamin (Vitamin B12 1000 Mcg Tab) 1,000 mcg PO DAILY [facility] Last Admin: 11/03/16 10:16 Dose: 1,000 mcg Docusate Sodium (Colace) 100 mg PO BID [facility] Last Admin: 11/03/16 18:22 Dose: 100 mg Enoxaparin Sodium (Lovenox) 40 mg SC DAILY [facility] Last Admin: 11/03/16 10:14 Dose: 40 mg Ferrous Sulfate (Feosol) 325 mg PO BID [facility] Last Admin: 11/03/16 18:22 Dose: 325 mg Sodium Chloride (Sodium Chloride 0.9%) 1,000 mls @ 75 mls/hr IV .[id number] [facility] Last Admin: 11/03/16 22:18 Dose: 75 mls/hr Levetiracetam 750 mg/ Sodium (Chloride) 107.5 mls @ 420 mls/hr IVPB Q12 [facility] Last Admin: 11/03/16 22:08 Dose: 420 mls/hr Insulin Aspart (Novolog) 0 unit SC ACHS [facility] PRN Reason: Protocol Last Admin: 11/03/16 23:00 Dose: Not Given Insulin Aspart (Novolog) 5 unit SC ACTID [facility] Last Admin: 11/03/16 18:29 Dose: 5 unit Insulin Glargine (Lantus) 8 unit SC HS [facility] Last Admin: 11/03/16 22:12 Dose: 8 units Lactulose (Enulose) 20 gm PO HS [facility] Last Admin: 11/03/16 22:12 Dose: Not Given Lamotrigine (Lamictal) 25 mg PO BID [facility] Last Admin: 11/03/16 23:38 Dose: 25 mg Levetiracetam (Keppra) 750 mg PO BID [facility] Lisinopril (Zestril) 20 mg PO DAILY [facility] Last Admin: 11/03/16 10:14 Dose: 20 mg Lorazepam (Ativan) 1 mg IVP Q4H PRN PRN Reason: Seizure activity Last Admin: 11/03/16 13:14 Dose: 1 mg Metoclopramide HCl (Reglan) 10 mg PO Q8 PRN PRN Reason: Nausea/Vomiting Morphine Sulfate (Morphine) 2 mg IVP Q8 PRN PRN Reason: pain Last Admin: 11/04/16 03:00 Dose: 2 mg Ondansetron HCl (Zofran Inj) 4 mg IVP Q8 PRN PRN Reason: Nausea/Vomiting Last Admin: 11/04/16 06:51 Dose: 4 mg Pantoprazole Sodium (Protonix Inj) 40 mg IVP DAILY [facility] Pneumococcal Polyvalent Vaccine (Pneumovax 23 Vaccine) 0.5 ml IM .ONCE ONE Stop: 11/05/16 10:01 Potassium Chloride (Klor-Con 10) 10 meq PO BRK [facility] Last Admin: 11/03/16 08:47 Dose: 10 meq - Labs Labs: 11/02/16 20:56 11/02/16 20:56 - Constitutional Appears: Chronically Ill - Head Exam Head Exam: NORMAL INSPECTION - Eye Exam Eye Exam: EOMI - ENT Exam ENT Exam: Mucous Membranes Moist - Respiratory Exam Respiratory Exam: Clear to Ausculation Bilateral, NORMAL BREATHING PATTERN. absent: Rales, Rhonchi, Wheezes - Cardiovascular Exam Cardiovascular Exam: REGULAR RHYTHM, +S1, +S2. absent: Gallop, Rubs, Murmur - GI/Abdominal Exam GI & Abdominal Exam: Guarding, Soft, Tenderness, Normal Bowel Sounds - Extremities Exam Extremities Exam: absent: Pedal Edema - Neurological Exam Neurological Exam: Alert, Awake, Oriented x3 - Psychiatric Exam Psychiatric exam: Depressed - Skin Skin Exam: Normal Color, Warm Assessment and Plan - Assessment and Plan (Free Text) Assessment: Seizures: Continue Keppra 750 mg PO BID Continue Lamictal 25mg PO BID Continue Levetriacetam 750 mg IV Neuro consulted- Dr. Hair - help appreciated Seizure precautions Prolactin elevated on admission MRI of brain done on 11/03 showed no hemorrhage or infarction and no gross intracranial abnormality. Mild generalized volume loss Vitamin B12 po qd Ativan 1 mg IVP q4 prn NS 75 cc Gastroparesis GI, Dr. Licona is consulted, help appreciated Tolerating a diet sometimes. Patient was unable to do gastric emptying study today secondary to vomiting Patient to be scheduled for endoscopy per Dr. Licona's note Protonix 40 mg IV daily Zofran for nausea Dilaudid for pain prn Reglan 10 mg po q8 prn Constipation Colace 100 mg po BID Lactulose 20 mg po HS HTN Norvasc 10mg PO daily Losartan 50mg PO daily Monitor vitals Uncontrolled DM Patient counseled on strict adherence to medication regiment at home Currently on ISS Accuchecks Novolog 5u SC AC ACTID Lantus 8u SC HS HgA1C on prior admission 9.2 CKD Improving GFR 30-40 Anemia Continue iron supplements Hgb stable Prophylactic Measures Protonix 40mg IV daily SCDs Lovenox Patient counseled on discontinuing use of cannabis in light of seizure disorder PICC line removed before discharge Orders and management per Dr. Boris Coker
[2016-11-04] MEDS: Enoxaparin 40 mg Syringe SC SCH (10:24)
[2016-11-04] MEDS: Potassium Chloride 10 mEq ER Tab PO SCH (10:30)
[2016-11-04] MEDS ORDERED: Lidocaine 1% Inj (20ml) ONE (10:51)
--- NOTE | 2016-11-04 12:00 | PCM.SURG1 ---
Surgeon's Initial Post Op Note - Surgeon's Notes Surgeon: Mango Mack MD Bottle Filler: NONE Type of Anesthesia: Local Pre-Operative Diagnosis: Poor venous access Operative Findings: Patent right basilic vein. Post-Operative Diagnosis: Poor venous access Operation Performed: Single lumen picc placement right basilic vein, 35 cm. Tip in SVC. Specimen/Specimens Removed: None Estimated Blood Loss: EBL {In ML}: 2 Blood Products Given: N/A Drains Used: No Drains Post-Op Condition: Fair Date of Surgery/Procedure: 11/04/16 Time of Surgery/Procedure: 11:55
--- NOTE | 2016-11-04 12:25 | CP.PCM.PN ---
Subjective - Date & Time of Evaluation Date of Evaluation: 11/04/16 Time of Evaluation: 14:00 - Subjective Subjective: clinically same s/p PICC line insertion iv rx in progress Objective - Vital Signs/Intake and Output Vital Signs (last 24 hours): Temp Pulse Resp BP Pulse Ox 97.8 F 90 20 136/87 99 11/04/16 07:00 11/04/16 09:26 11/04/16 07:00 11/04/16 09:26 11/04/16 07:00 Intake and Output: 11/04/16 11/04/16 06:59 18:59 Intake Total 1080 Balance 1080 - Medications Medications: Current Medications Acetaminophen (Tylenol 325mg Tab) 650 mg PO BID PRN PRN Reason: Fever >100.4 F Amlodipine Besylate (Norvasc) 10 mg PO DAILY [facility] Last Admin: 11/04/16 10:29 Dose: 10 mg Clonazepam (Klonopin) 0.5 mg PO BID [facility] Cyanocobalamin (Vitamin B12 1000 Mcg Tab) 1,000 mcg PO DAILY [facility] Last Admin: 11/04/16 10:32 Dose: Not Given Docusate Sodium (Colace) 100 mg PO BID [facility] Last Admin: 11/04/16 10:30 Dose: Not Given Enoxaparin Sodium (Lovenox) 40 mg SC DAILY [facility] Last Admin: 11/04/16 10:24 Dose: 40 mg Escitalopram Oxalate (Lexapro) 5 mg PO DAILY [facility] Ferrous Sulfate (Feosol) 325 mg PO BID [facility] Last Admin: 11/04/16 10:30 Dose: Not Given Sodium Chloride (Sodium Chloride 0.9%) 1,000 mls @ 75 mls/hr IV .[id number] [facility] Last Admin: 11/03/16 22:18 Dose: 75 mls/hr Levetiracetam 750 mg/ Sodium (Chloride) 107.5 mls @ 420 mls/hr IVPB Q12 [facility] Last Admin: 11/03/16 22:08 Dose: 420 mls/hr Insulin Aspart (Novolog) 0 unit SC ACHS [facility] PRN Reason: Protocol Last Admin: 11/04/16 07:30 Dose: Not Given Insulin Aspart (Novolog) 5 unit SC ACTID [facility] Last Admin: 11/04/16 07:30 Dose: Not Given Insulin Glargine (Lantus) 8 unit SC HS [facility] Last Admin: 11/03/16 22:12 Dose: 8 units Lactulose (Enulose) 20 gm PO HS [facility] Last Admin: 11/03/16 22:12 Dose: Not Given Lamotrigine (Lamictal) 25 mg PO BID [facility] Last Admin: 11/04/16 10:18 Dose: 25 mg Levetiracetam (Keppra) 750 mg PO BID [facility] Lisinopril (Zestril) 20 mg PO DAILY [facility] Last Admin: 11/04/16 10:18 Dose: 20 mg Lorazepam (Ativan) 1 mg IVP Q4H PRN PRN Reason: Seizure activity Last Admin: 11/03/16 13:14 Dose: 1 mg Metoclopramide HCl (Reglan) 10 mg PO Q8 PRN PRN Reason: Nausea/Vomiting Morphine Sulfate (Morphine) 2 mg IVP Q8 PRN PRN Reason: pain Last Admin: 11/04/16 03:00 Dose: 2 mg Ondansetron HCl (Zofran Inj) 4 mg IVP Q8 PRN PRN Reason: Nausea/Vomiting Last Admin: 11/04/16 06:51 Dose: 4 mg Ondansetron HCl (Zofran Odt) 8 mg SL Q8H PRN PRN Reason: Nausea/Vomiting Pantoprazole Sodium (Protonix Inj) 40 mg IVP DAILY [facility] Last Admin: 11/04/16 10:40 Dose: Not Given Pneumococcal Polyvalent Vaccine (Pneumovax 23 Vaccine) 0.5 ml IM .ONCE ONE Stop: 11/05/16 10:01 Potassium Chloride (Klor-Con 10) 10 meq PO BRK [facility] Last Admin: 11/04/16 10:30 Dose: Not Given - Labs Labs: 11/02/16 20:56 11/02/16 20:56 - Constitutional Appears: Well - Head Exam Head Exam: ATRAUMATIC, NORMAL INSPECTION, NORMOCEPHALIC - Eye Exam Eye Exam: EOMI, Normal appearance, PERRL Pupil Exam: NORMAL ACCOMODATION, PERRL - ENT Exam ENT Exam: Mucous Membranes Moist, Normal Exam - Neck Exam Neck Exam: Full ROM, Normal Inspection. absent: Lymphadenopathy - Respiratory Exam Respiratory Exam: Decreased Breath Sounds - Cardiovascular Exam Cardiovascular Exam: REGULAR RHYTHM, +S1, +S2 - GI/Abdominal Exam GI & Abdominal Exam: Soft, Diminished Bowel Sounds - Rectal Exam Rectal Exam: Deferred - Neurological Exam Neurological Exam: Alert, Awake Assessment and Plan (1) Benzodiazepine withdrawal Status: Acute (2) Tonic-clonic seizure Status: Acute (3) Vomiting Status: Acute (4) ARF (acute renal failure) Status: Acute (5) Abdominal pain Status: Acute (6) Abdominal pain with vomiting Status: Acute (7) Acute cystitis Status: Acute (8) Acute kidney injury Status: Acute (9) Cholelithiasis Status: Acute (10) Constipation Status: Acute (11) Cough Status: Acute (12) Dehydration Status: Acute (13) Depressive disorder Status: Acute (14) Diabetic gastroparesis Status: Acute (15) Gastritis Status: Acute (16) Gastroparesis Status: Acute (17) HTN (hypertension) Status: Acute (18) History of anemia Status: Acute (19) History of seizures Status: Acute (20) Hyperglycemia Status: Acute (21) Hyperosmolar (nonketotic) coma Status: Acute (22) Prophylactic measure Status: Acute (23) Seizure Status: Acute (24) Seizure Status: Acute (25) Seizure disorder Status: Acute (26) UTI (urinary tract infection) Status: Acute (27) UTI (urinary tract infection) Status: Acute (28) Uncontrolled diabetes mellitus Status: Acute (29) Upper GI bleed Status: Acute (30) Anemia Status: Chronic (31) Diabetes mellitus Status: Chronic (32) Seizure Status: Chronic - Assessment and Plan (Free Text) Plan: PICC in place myah iv abx meds reviewed myah as ordered f/u labs myah same
--- NOTE | 2016-11-04 14:04 | RAD ---
PROCEDURE: Date of procedure: 11/04/2016 Procedure: 1. Placement of a right arm PICC with ultrasound and fluoroscopic guidance, CPT 18006 2. PICC tip confirmation with spot radiograph and is in the superior vena cava Medications: 1 percent lidocaine Total Fluoro time: 5.9 seconds Radiation: 0.44 MGy EBL: 2 cc HISTORY: Infection requiring long-term IV antibiotics TECHNIQUE: Following informed consent and procedure time-out, the patient was placed supine on the interventional table and the right arm prepped and draped in the usual sterile fashion. Ultrasound showed a patent and compressible right basilic vein. After the skin was anesthetized with lidocaine, the basilic vein was accessed with micro micropuncture technique using ultrasound guidance. A guidewire was then advanced under fluoroscopic guidance into the superior vena cava. An image documenting ultrasound guidance for vascular access was permanently saved. The length of the single-lumen 4 Swiss PICC was trimmed to 35 centimeters and advanced through a peel-away sheath. The PICC was position with tip of PICC confirm a spot radiograph the superior vena cava. The PICC was secured to the patient's skin. The PICC was flushed. A biopatch and sterile dressing was applied. IMPRESSION: Placement of a single-lumen 4 Swiss PICC trimmed to 35 centimeters via right basilic vein. The tip of the PICC is confirmed with spot radiograph and is in the superior vena cava.
--- NOTE | 2016-11-04 14:06 | US ---
Date of procedure: 11/04/2016 Procedure: Ultrasound guidance for vascular access HISTORY: Infection requiring long-term IV antibiotics TECHNIQUE: Following informed consent and procedure time-out, the patient placed supine on the interventional table and the right arm prepped and draped in the usual sterile fashion. Ultrasound showed a patent and compressible basilic vein. After the skin was anesthetized with lidocaine, the basilic vein was accessed with micro micropuncture technique using ultrasound guidance. An image documenting ultrasound guidance for vascular access was permanently saved. IMPRESSION: Ultrasound guidance for vascular access for placement of PICC.
[2016-11-04 14:46] LABS: BASO # 0.1 K/uL (0.0-0.2); BASO % 1.3 % (0.0-2.0); EOS # 0.1 K/uL (0.0-0.7); EOS % 1.3 % (0.0-4.0); HEMATOCRIT 26.9 % (34.0-47.0); LYMPH # 1.2 K/uL (1.0-4.3); LYMPH % 17.4 % (20.0-40.0); MEAN CORPUSCULAR HEMOGLOBIN 28.5 pg (27.0-31.0); MEAN CORPUSCULAR HGB CONC 32.8 g/dL (33.0-37.0); MEAN PLATELET VOLUME 8.8 fL (7.2-11.7); MONO # 0.2 K/uL (0.0-0.8); MONO % 2.9 % (0.0-10.0); RED CELL DISTRIBUTION WIDTH 13.8 % (11.5-14.5); WHITE BLOOD COUNT 7.1 K/uL (4.8-10.8)
--- NOTE | 2016-11-04 14:59 | CP.PCM.CON ---
History of Present Illness - History of Present Illness History of Present Illness: We are asked to see this patient by Dr. Coker. Patient evaluated with medical students present. This is a 26 years old Female, single, no children, and lives with her mother in [place], [place]. States she is unemployed and does not attend school. Patient was admitted on the medical floor because of seizure and gartroparesis related to DM. Patient reports feeling nauseous and anxious because of pain. States she has been feeling depressed since before her recent admission. Reports having low self esteem because "I'm always sick". Reports having panic attacks, triggered by pain, which last for approx. 2 minutes. Has been referred to psychiatrist previously, but unable to attend appointment. Denies anxiety outside of normal stress, "everyone has stress". Denies SI/HI/Paranoia. Denies Auditory/visual hallucinations. Denies previous traumatization. Reports previous alcohol use but denies use disorder. Denies previous drug use. Patient has support from her family. Past MedHx: HTN, DM Fam PsychHx: denies Fam Sustance Use: denies Review of Systems - Psychiatric Psychiatric: As Per HPI Past Patient History - Infectious Disease Hx of Infectious Diseases: None - Past Medical History & Family History Past Medical History?: Yes - Past Social History Smoking Status: Never Smoked - CARDIAC Hx Cardiac Disorders: Yes Hx Hypertension: Yes - PULMONARY Hx Respiratory Disorders: No - NEUROLOGICAL Hx Seizures: Yes - HEENT Hx HEENT Problems: No - RENAL Hx Chronic Kidney Disease: No - ENDOCRINE/METABOLIC Hx Endocrine Disorders: Yes (diabetes) Hx Diabetes Mellitus Type 2: Yes - HEMATOLOGICAL/ONCOLOGICAL Hx Anemia: Yes - INTEGUMENTARY Hx Dermatological Problems: No - MUSCULOSKELETAL/RHEUMATOLOGICAL Hx Musculoskeletal Disorders: No Hx Falls: No - GASTROINTESTINAL Hx Gastrointestinal Disorders: Yes Other/Comment: gastroparesis - GENITOURINARY/GYNECOLOGICAL Hx Genitourinary Disorders: No - PSYCHIATRIC Hx Substance Use: No - SURGICAL HISTORY Hx Surgeries: No - ANESTHESIA Hx Anesthesia: No Hx Anesthesia Reactions: No Hx Malignant Hyperthermia: No Has any member of the family had a problem w/ anesthesia?: No Meds Allergies/Adverse Reactions: Allergies Allergy/AdvReac Type Severity Reaction Status Date / Time No Known Allergies Allergy Verified 11/02/16 09:50 - Medications Medications: Current Medications Acetaminophen (Tylenol 325mg Tab) 650 mg PO BID PRN PRN Reason: Fever >100.4 F Amlodipine Besylate (Norvasc) 10 mg PO DAILY [facility] Last Admin: 11/04/16 10:29 Dose: 10 mg Clonazepam (Klonopin) 0.5 mg PO BID [facility] Last Admin: 11/04/16 12:50 Dose: Not Given Cyanocobalamin (Vitamin B12 1000 Mcg Tab) 1,000 mcg PO DAILY [facility] Last Admin: 11/04/16 10:32 Dose: Not Given Docusate Sodium (Colace) 100 mg PO BID [facility] Last Admin: 11/04/16 10:30 Dose: Not Given Enoxaparin Sodium (Lovenox) 40 mg SC DAILY [facility] Last Admin: 11/04/16 10:24 Dose: 40 mg Escitalopram Oxalate (Lexapro) 5 mg PO DAILY [facility] Last Admin: 11/04/16 12:50 Dose: Not Given Ferrous Sulfate (Feosol) 325 mg PO BID [facility] Last Admin: 11/04/16 10:30 Dose: Not Given Sodium Chloride (Sodium Chloride 0.9%) 1,000 mls @ 75 mls/hr IV .[id number] [facility] Last Admin: 11/03/16 22:18 Dose: 75 mls/hr Levetiracetam 750 mg/ Sodium (Chloride) 107.5 mls @ 420 mls/hr IVPB Q12 [facility] Last Admin: 11/04/16 13:04 Dose: 420 mls/hr Insulin Aspart (Novolog) 0 unit SC ACHS [facility] PRN Reason: Protocol Last Admin: 11/04/16 13:40 Dose: Not Given Insulin Aspart (Novolog) 5 unit SC ACTID [facility] Last Admin: 11/04/16 13:45 Dose: 5 unit Insulin Glargine (Lantus) 8 unit SC HS [facility] Last Admin: 11/03/16 22:12 Dose: 8 units Lactulose (Enulose) 20 gm PO HS [facility] Last Admin: 11/03/16 22:12 Dose: Not Given Lamotrigine (Lamictal) 25 mg PO BID [facility] Last Admin: 11/04/16 10:18 Dose: 25 mg Levetiracetam (Keppra) 750 mg PO BID [facility] Lisinopril (Zestril) 20 mg PO DAILY [facility] Last Admin: 11/04/16 10:18 Dose: 20 mg Lorazepam (Ativan) 1 mg IVP Q4H PRN PRN Reason: Seizure activity Last Admin: 11/03/16 13:14 Dose: 1 mg Metoclopramide HCl (Reglan) 10 mg PO Q8 PRN PRN Reason: Nausea/Vomiting Morphine Sulfate (Morphine) 2 mg IVP Q8 PRN PRN Reason: pain Last Admin: 11/04/16 03:00 Dose: 2 mg Ondansetron HCl (Zofran Inj) 4 mg IVP Q8 PRN PRN Reason: Nausea/Vomiting Last Admin: 11/04/16 06:51 Dose: 4 mg Ondansetron HCl (Zofran Odt) 8 mg SL Q8H PRN PRN Reason: Nausea/Vomiting Pantoprazole Sodium (Protonix Inj) 40 mg IVP DAILY [facility] Last Admin: 11/04/16 12:45 Dose: 40 mg Pneumococcal Polyvalent Vaccine (Pneumovax 23 Vaccine) 0.5 ml IM .ONCE ONE Stop: 11/05/16 10:01 Potassium Chloride (Klor-Con 10) 10 meq PO BRK [facility] Last Admin: 11/04/16 10:30 Dose: Not Given Physical Exam - Psychiatric Exam Psychiatric exam: Depressed Results - Vital Signs Recent Vital Signs: Last Vital Signs Temp 97.8 F 11/04/16 07:00 Pulse 90 11/04/16 09:26 Resp 20 11/04/16 07:00 BP 136/87 11/04/16 09:26 Pulse Ox 99 11/04/16 07:00 - Labs Result Diagrams: 11/04/16 14:41 11/04/16 14:41 Labs: Laboratory Results - last 24 hr 11/02/16 11/03/16 11/03/16 20:56 16:26 20:50 WBC RBC Hgb Hct MCV MCH MCHC RDW Plt Count MPV Neut % (Auto) Lymph % (Auto) [place] % (Auto) Eos % (Auto) Baso % (Auto) Neut # Lymph # [place] # Eos # Baso # POC Glucose (mg/dL) 71 298 H Myoglobin 44 11/04/16 11/04/16 11/04/16 06:34 13:35 14:41 WBC 7.1 RBC 3.09 L Hgb 8.8 L Hct 26.9 L MCV 87.0 MCH 28.5 MCHC 32.8 L RDW 13.8 Plt Count 257 MPV 8.8 Neut % (Auto) 77.1 H Lymph % (Auto) 17.4 L [place] % (Auto) 2.9 Eos % (Auto) 1.3 Baso % (Auto) 1.3 Neut # 5.5 Lymph # 1.2 [place] # 0.2 Eos # 0.1 Baso # 0.1 POC Glucose (mg/dL) 373 H 377 H Myoglobin Assessment & Plan (1) Depressive disorder Status: Acute - Assessment and Plan (Free Text) Plan: Depressive Disorder: Lexapro CBT and support Anxiety: Ativan CBT
[2016-11-04 15:02] LABS: POTASSIUM 4.2 mmol/L (3.6-5.2)
[2016-11-04 15:05] LABS: ALB/GLOB RATIO 0.8 (1.0-2.1); BILIRUBIN,TOTAL 0.3 mg/dL (0.2-1.3); CALCIUM 7.8 mg/dl (8.6-10.4); TOTAL PROTEIN 4.8 g/dL (6.3-8.3)
--- NOTE | 2016-11-04 16:53 | CON ---
DATE: 11/03/2016 REASON FOR ADMISSION: Intractable abdominal pain and history of seizures. CHIEF COMPLAINT: Patient was brought into [facility] with a history of intractable abdominal pain. I was called in to see her because of her history of seizures. HISTORY OF PRESENT ILLNESS: Ms. Yelena Larry is a 26-year-old right-handed female presenting with intractable abdominal pain and vomiting. Vomiting also contained of coffee ground contents. No history of seizures recently. However, she was admitted recently last week with a history of seizures. She had a workup including EEG which does not show any electrographic seizure activities. However, Keppra which she has been taking for her seizure has been continued. On last admission, patient did not want to go to have MRI of the brain. These are all seizures that are accompanied with abdominal pain and when she has nausea. At this time, patient agreed to have an MRI of the brain. PAST MEDICAL HISTORY: Bipolar disorder, history of seizure disorder, intractable abdominal pain, non-insulin dependent diabetes mellitus, prerenal failure. MEDICATIONS: IV fluids, Ativan, Dilaudid, FeroSul, Keppra, potassium supplement, Lamictal, Lantus, Lovenox, amlodipine and insulin. PHYSICAL EXAMINATION VITAL SIGNS: Blood pressure 152/95, mean arterial pressure of 140, respiratory rate 16, temperature 98.6, pulse rate 98. NECK: Supple. No carotid bruits. HEART: Sounds regular. CHEST: Bilateral air entry. EXTREMITIES: No edema in legs. NEUROLOGIC: Mental status examination: She is awake, alert, and oriented to person, place and time. Speech is clear, namely repetition, fluency, comprehension all within normal limits. CRANIAL NERVE EXAMINATION: Visual armando intact. Pupils react to light. Extraocular movements normal. No nystagmus. No facial sensory deficits. No facial asymmetry. Hearing is normal. Tongue is midline. Good gag. MOTOR EXAMINATION: There is no drift noted. Deep tendon reflexes, triceps, brachioradialis, biceps, knee and ankle all are 2+. Plantars are downgoing. SENSORY EXAMINATION: Grossly intact. Coordination: [id number] test is intact. CONCLUSION: Upon reviewing her history and neurological examination, Ms. Yelena Larry has been presenting with seizures which has been controlled with the current medication. However, this history of seizures does not qualify she might have seizure disorder. However, she needs further workup which was requested. MRI of the brain is still pending. At this time, she agreed to have an MRI of the brain with sedation. We will continue Keppra which she has been taking. No further workup is needed at present. Patient will be followed with closely with you. Burt Hair MD MTDAranza
[2016-11-04] MEDS: Sodium Chloride 0.9% 1,000 ML IV SCH (21:30)
[2016-11-04] MEDS: (Lantus) Insulin Glargine, Recombinant SC SCH (21:32)
[2016-11-05 06:53] LABS: BASO # 0.1 K/uL (0.0-0.2); EOS # 0.1 K/uL (0.0-0.7); HEMATOCRIT 29.5 % (34.0-47.0); LYMPH # 2.6 K/uL (1.0-4.3); LYMPH % 43.1 % (20.0-40.0); MEAN CELL VOLUME 87.7 fL (81.0-99.0); MEAN CORPUSCULAR HEMOGLOBIN 28.2 pg (27.0-31.0); MEAN CORPUSCULAR HGB CONC 32.2 g/dL (33.0-37.0); MEAN PLATELET VOLUME 8.6 fL (7.2-11.7); MONO # 0.4 K/uL (0.0-0.8); MONO % 6.4 % (0.0-10.0); RED CELL DISTRIBUTION WIDTH 14.3 % (11.5-14.5); WHITE BLOOD COUNT 6.1 K/uL (4.8-10.8)
[2016-11-05 07:12] LABS: INR 0.9
[2016-11-05] MEDS: (Novolog) Insulin Aspart, Recombinant 100 u/ml 10 ml vial SC SCH ×6 (07:17→22:04)
[2016-11-05 07:27] LABS: POTASSIUM 4.1 mmol/L (3.6-5.2)
[2016-11-05 07:30] LABS: ALB/GLOB RATIO 0.9 (1.0-2.1); BILIRUBIN,TOTAL 0.4 mg/dL (0.2-1.3); TOTAL PROTEIN 4.8 g/dL (6.3-8.3)
[2016-11-05 07:31] LABS: CALCIUM 8.3 mg/dl (8.6-10.4)
[2016-11-05] MEDS: Potassium Chloride 10 mEq ER Tab PO SCH (08:45)
[2016-11-05] MEDS: Sodium Chloride 0.9% 1,000 ML IV SCH ×2 (09:29→19:32)
[2016-11-05] MEDS: (Lantus) Insulin Glargine, Recombinant SC SCH ×2 (09:29→21:48)
[2016-11-05] MEDS ORDERED: Pneumococcal 23-Valent Vaccine IM ONE (10:00)
--- NOTE | 2016-11-05 11:28 | CP.PCM.PN ---
Subjective - Date & Time of Evaluation Date of Evaluation: 11/05/16 Time of Evaluation: 11:20 - Subjective Subjective: PGY2 progress note for Dr. Coker Pt is seen and examined at bedside. Pt continue to c/o epigastric pain and nausea. She denies having any vomiting. Patient denies having any SOB, CP, D/C , seizure like activity. Patient is scheduled for EGD today and has been NPO past midnight. 12 point ROS negative except for the above mentioned. Objective - Vital Signs/Intake and Output Vital Signs (last 24 hours): Temp Pulse Resp BP Pulse Ox 98.4 F 90 20 175/122 H 100 11/05/16 08:04 11/05/16 08:04 11/05/16 08:04 11/05/16 07:49 11/05/16 08:04 Intake and Output: 11/05/16 11/05/16 06:59 18:59 Intake Total 600 Balance 600 - Medications Medications: Current Medications Acetaminophen (Tylenol 325mg Tab) 650 mg PO BID PRN PRN Reason: Fever >100.4 F Amlodipine Besylate (Norvasc) 10 mg PO DAILY [facility] Last Admin: 11/05/16 07:49 Dose: 10 mg Clonazepam (Klonopin) 0.5 mg PO BID [facility] Last Admin: 11/04/16 18:14 Dose: Not Given Cyanocobalamin (Vitamin B12 1000 Mcg Tab) 1,000 mcg PO DAILY [facility] Last Admin: 11/04/16 10:32 Dose: Not Given Docusate Sodium (Colace) 100 mg PO BID [facility] Last Admin: 11/04/16 18:13 Dose: Not Given Enoxaparin Sodium (Lovenox) 40 mg SC DAILY [facility] Last Admin: 11/04/16 10:24 Dose: 40 mg Escitalopram Oxalate (Lexapro) 5 mg PO DAILY [facility] Last Admin: 11/04/16 12:50 Dose: Not Given Ferrous Sulfate (Feosol) 325 mg PO BID [facility] Last Admin: 11/04/16 18:14 Dose: Not Given Levetiracetam 750 mg/ Sodium (Chloride) 107.5 mls @ 420 mls/hr IVPB Q12 [facility] Last Admin: 11/05/16 09:30 Dose: 420 mls/hr Sodium Chloride (Sodium Chloride 0.9%) 1,000 mls @ 100 mls/hr IV .Q10H [facility] Last Admin: 11/05/16 09:29 Dose: 100 mls/hr Insulin Aspart (Novolog) 0 unit SC ACHS [facility] PRN Reason: Protocol Last Admin: 11/05/16 07:17 Dose: Not Given Insulin Aspart (Novolog) 5 unit SC ACTID [facility] Last Admin: 11/05/16 07:18 Dose: Not Given Insulin Glargine (Lantus) 8 unit SC HS [facility] Last Admin: 11/05/16 09:29 Dose: 4 units Lactulose (Enulose) 20 gm PO HS [facility] Last Admin: 11/04/16 21:30 Dose: Not Given Lamotrigine (Lamictal) 25 mg PO BID [facility] Last Admin: 11/04/16 18:16 Dose: Not Given Levetiracetam (Keppra) 750 mg PO BID [facility] Lisinopril (Zestril) 20 mg PO DAILY [facility] Last Admin: 11/05/16 07:49 Dose: 20 mg Lorazepam (Ativan) 1 mg IVP Q4H PRN PRN Reason: Seizure activity Last Admin: 11/05/16 05:46 Dose: 1 mg Metoclopramide HCl (Reglan) 10 mg PO Q8 PRN PRN Reason: Nausea/Vomiting Morphine Sulfate (Morphine) 2 mg IVP Q8 PRN PRN Reason: pain Last Admin: 11/05/16 02:03 Dose: 2 mg Ondansetron HCl (Zofran Inj) 4 mg IVP Q8 PRN PRN Reason: Nausea/Vomiting Last Admin: 11/05/16 02:03 Dose: 4 mg Ondansetron HCl (Zofran Odt) 8 mg SL Q8H PRN PRN Reason: Nausea/Vomiting Pantoprazole Sodium (Protonix Inj) 40 mg IVP DAILY [facility] Last Admin: 11/04/16 12:45 Dose: 40 mg Potassium Chloride (Klor-Con 10) 10 meq PO BRK [facility] Last Admin: 11/05/16 08:45 Dose: Not Given - Labs Labs: 11/05/16 06:46 11/05/16 06:46 PT 9.6 SECONDS (9.7-12.2) L 11/05/16 06:46 INR 0.9 11/05/16 06:46 APTT 26 SECONDS (21-34) 11/05/16 06:46 - Constitutional Appears: Non-toxic, No Acute Distress - Head Exam Head Exam: ATRAUMATIC - Eye Exam Eye Exam: EOMI - ENT Exam ENT Exam: Mucous Membranes Moist - Respiratory Exam Respiratory Exam: Clear to Ausculation Bilateral. absent: Accessory Muscle Use , Rales, Rhonchi, Wheezes, Respiratory Distress - Cardiovascular Exam Cardiovascular Exam: REGULAR RHYTHM, +S1, +S2. absent: Gallop, Rubs, Murmur - GI/Abdominal Exam GI & Abdominal Exam: Soft, Tenderness, Normal Bowel Sounds. absent: Firm, Guarding, Rigid - Extremities Exam Extremities Exam: absent: Pedal Edema, Tenderness - Neurological Exam Neurological Exam: Alert, Awake, Oriented x3 - Psychiatric Exam Psychiatric exam: Normal Affect, Normal Mood - Skin Skin Exam: Dry, Intact, Normal Color, Warm Assessment and Plan - Assessment and Plan (Free Text) Assessment: Seizures: Stable. No seizure activity overnight or this morning Continue Keppra 750 mg PO BID Continue Lamictal 25mg PO BID Continue Levetriacetam 750 mg IV Neuro consulted- Dr. Hair - help appreciated Seizure precautions Prolactin elevated on admission MRI of brain done on 11/03 showed no hemorrhage or infarction and no gross intracranial abnormality. Mild generalized volume loss Vitamin B12 po qd Ativan 1 mg IVP q4 prn NS 75 cc Gastroparesis Patient scheduled for EGD today with Dr. Licona. NPO past midnight for procedure GI, Dr. Licona is consulted, help appreciated Patient was unable to do gastric emptying study today secondary to vomiting Protonix 40 mg IV daily Zofran for nausea Dilaudid for pain prn Reglan 10 mg po q8 prn Constipation Colace 100 mg po BID Lactulose 20 mg po HS HTN Norvasc 10mg PO daily Losartan 50mg PO daily Monitor vitals Uncontrolled DM Patient's BS was 319 this morning. ISS was on hold due to NPO status for EGD. Patient was given Lantus 4 units in the am. Will restart regular insulin regimen once diet is started Patient counseled on strict adherence to medication regiment at home Currently on ISS Accuchecks Novolog 5u SC AC ACTID Lantus 8u SC HS HgA1C on prior admission 9.2 CKD Improving GFR 30-40 Anemia Continue iron supplements Hgb stable Prophylactic Measures Protonix 40mg IV daily SCDs Lovenox Patient counseled on discontinuing use of cannabis in light of seizure disorder PICC line placed yesterday Orders and management per Dr. Boris Coker
[2016-11-05] MEDS ORDERED: Midazolam 2 MG/2 ML VIAL ONE (11:58)
[2016-11-05] MEDS ORDERED: Propofol 10 mg/ml Inj (20 ML) ONE (11:58)
--- NOTE | 2016-11-05 12:49 | PCM.PYCHPN ---
Psychiatric Progress Note - Psychiatric Progress Note Patient seen today, length of contact: 16 min Patient Chief Complaint: "I'm antsy" Problems Identified/Issues Discussed: Patient evaluated with medical students present. Chart reviewed. Patient reports sleeping great. States she has some abdominal pain from left over acid. Counselled patient on coping mechanisms and discussed medication concerns. The pt is compliant with medications and reports no side-effects. Medical Record Reviewed: Yes Mental Status Examination - Cognitive Function Orientation: Person, Place, Situation, Time Memory: Intact Attention: WNL Concentration: WNL Fund of Knowledge: WNL - Mood Mood: Depressed - Affect Affect: Blunted - Speech Speech: Soft - Formal Thought Process Formal Thought Process: No Impairment - Suicidal Ideation Suicidal Ideation: No - Homicidal Ideation Homicidal Ideation: No Goal/Treatment Plan - Goal/Treatment Plan Progress Toward Problem(s) and Goals/Treatment Plan: As needed medications CBT for depressive symptoms Support and psychoeducation Refer to after care
--- NOTE | 2016-11-05 18:03 | CP.PCM.PN ---
Subjective - Date & Time of Evaluation Date of Evaluation: 11/05/16 Time of Evaluation: 14:20 - Subjective Subjective: clinically same Objective - Vital Signs/Intake and Output Vital Signs (last 24 hours): Temp Pulse Resp BP Pulse Ox 97.9 F 75 20 121/79 97 11/05/16 16:08 11/05/16 16:08 11/05/16 16:08 11/05/16 16:08 11/05/16 16:08 Intake and Output: 11/05/16 11/05/16 06:59 18:59 Intake Total 600 840 Balance 600 840 - Medications Medications: Current Medications Acetaminophen (Tylenol 325mg Tab) 650 mg PO BID PRN PRN Reason: Fever >100.4 F Amlodipine Besylate (Norvasc) 10 mg PO DAILY [facility] Last Admin: 11/05/16 11:48 Dose: Not Given Clonazepam (Klonopin) 0.5 mg PO BID [facility] Last Admin: 11/05/16 13:02 Dose: Not Given Cyanocobalamin (Vitamin B12 1000 Mcg Tab) 1,000 mcg PO DAILY [facility] Last Admin: 11/05/16 14:21 Dose: 1,000 mcg Docusate Sodium (Colace) 100 mg PO BID [facility] Last Admin: 11/05/16 13:00 Dose: Not Given Enoxaparin Sodium (Lovenox) 40 mg SC DAILY [facility] Last Admin: 11/04/16 10:24 Dose: 40 mg Escitalopram Oxalate (Lexapro) 5 mg PO DAILY [facility] Last Admin: 11/05/16 14:19 Dose: 5 mg Ferrous Sulfate (Feosol) 325 mg PO BID [facility] Last Admin: 11/05/16 13:02 Dose: Not Given Levetiracetam 750 mg/ Sodium (Chloride) 107.5 mls @ 420 mls/hr IVPB Q12 [facility] Last Admin: 11/05/16 09:30 Dose: 420 mls/hr Sodium Chloride (Sodium Chloride 0.9%) 1,000 mls @ 100 mls/hr IV .Q10H [facility] Last Admin: 11/05/16 09:29 Dose: 100 mls/hr Insulin Aspart (Novolog) 0 unit SC ACHS [facility] PRN Reason: Protocol Last Admin: 11/05/16 11:42 Dose: 4 unit Insulin Aspart (Novolog) 5 unit SC ACTID [facility] Last Admin: 11/05/16 07:18 Dose: Not Given Insulin Glargine (Lantus) 8 unit SC HS [facility] Last Admin: 11/05/16 09:29 Dose: 4 units Lactulose (Enulose) 20 gm PO HS [facility] Last Admin: 11/04/16 21:30 Dose: Not Given Lamotrigine (Lamictal) 25 mg PO BID [facility] Last Admin: 11/05/16 13:03 Dose: Not Given Levetiracetam (Keppra) 750 mg PO BID [facility] Lisinopril (Zestril) 20 mg PO DAILY [facility] Last Admin: 11/05/16 11:48 Dose: Not Given Lorazepam (Ativan) 1 mg IVP Q4H PRN PRN Reason: Seizure activity Last Admin: 11/05/16 05:46 Dose: 1 mg Metoclopramide HCl (Reglan) 10 mg PO Q8 PRN PRN Reason: Nausea/Vomiting Morphine Sulfate (Morphine) 2 mg IVP Q8 PRN PRN Reason: pain Last Admin: 11/05/16 14:31 Dose: 2 mg Ondansetron HCl (Zofran Inj) 4 mg IVP Q8 PRN PRN Reason: Nausea/Vomiting Last Admin: 11/05/16 02:03 Dose: 4 mg Ondansetron HCl (Zofran Odt) 8 mg SL Q8H PRN PRN Reason: Nausea/Vomiting Pantoprazole Sodium (Protonix Inj) 40 mg IVP Q12 [facility] Last Admin: 11/05/16 14:20 Dose: 40 mg Potassium Chloride (Klor-Con 10) 10 meq PO BRK [facility] Last Admin: 11/05/16 08:45 Dose: Not Given - Labs Labs: 11/05/16 06:46 11/05/16 06:46 PT 9.6 SECONDS (9.7-12.2) L 11/05/16 06:46 INR 0.9 11/05/16 06:46 APTT 26 SECONDS (21-34) 11/05/16 06:46 - Constitutional Appears: Well - Head Exam Head Exam: ATRAUMATIC, NORMAL INSPECTION, NORMOCEPHALIC - Eye Exam Eye Exam: EOMI, Normal appearance, PERRL Pupil Exam: NORMAL ACCOMODATION, PERRL - ENT Exam ENT Exam: Mucous Membranes Moist, Normal Exam - Neck Exam Neck Exam: Full ROM, Normal Inspection. absent: Lymphadenopathy - Respiratory Exam Respiratory Exam: Decreased Breath Sounds - Cardiovascular Exam Cardiovascular Exam: REGULAR RHYTHM, +S1, +S2 - GI/Abdominal Exam GI & Abdominal Exam: Soft, Diminished Bowel Sounds - Rectal Exam Rectal Exam: Deferred - Neurological Exam Neurological Exam: Alert Assessment and Plan (1) Benzodiazepine withdrawal Status: Acute (2) Tonic-clonic seizure Status: Acute (3) Vomiting Status: Acute (4) ARF (acute renal failure) Status: Acute (5) Abdominal pain Status: Acute (6) Abdominal pain with vomiting Status: Acute (7) Acute cystitis Status: Acute (8) Acute kidney injury Status: Acute (9) Cholelithiasis Status: Acute (10) Constipation Status: Acute (11) Cough Status: Acute (12) Dehydration Status: Acute (13) Depressive disorder Status: Acute (14) Diabetic gastroparesis Status: Acute (15) Gastritis Status: Acute (16) Gastroparesis Status: Acute (17) HTN (hypertension) Status: Acute (18) History of anemia Status: Acute (19) History of seizures Status: Acute (20) Hyperglycemia Status: Acute (21) Hyperosmolar (nonketotic) coma Status: Acute (22) Prophylactic measure Status: Acute (23) Seizure Status: Acute (24) Seizure Status: Acute (25) Seizure disorder Status: Acute (26) UTI (urinary tract infection) Status: Acute (27) UTI (urinary tract infection) Status: Acute (28) Uncontrolled diabetes mellitus Status: Acute (29) Upper GI bleed Status: Acute (30) Anemia Status: Chronic (31) Diabetes mellitus Status: Chronic (32) Seizure Status: Chronic - Assessment and Plan (Free Text) Plan: s/p PICC insertion yesterday myah management as ordered f/u labs
--- NOTE | 2016-11-05 19:29 | PCM.RRTMUL ---
FITNESS/WELLNESS DIRECTOR Nurses Assessment - Vital Signs Blood Pressure:: 121/79 Pulse Rate:: 75 Respiratory Rate:: 20 Temperature:: 97.9 F - A) Initial Vital Signs: Blood Pressure: 121/79 Pulse Rate: 75 Respiratory Rate: 20 Temperature: 97.9 F O2 Sat by Pulse Oximetry: 97 - B) Neurological Status Other (Please specify): after seizure like activity, A&Ox3 - C) Respiratory Oxygen Delivery Method: Room Air - Constitutional Appears: Non-toxic, No Acute Distress - Head Head Exam: ATRAUMATIC - Eyes Eye Exam: EOMI - Respiratory Exam Respiratory Exam: Clear to Ausculation Bilateral, NORMAL BREATHING PATTERN. absent: Accessory Muscle Use, Rales, Rhonchi, Wheezes, Respiratory Distress - Cardiovascular Exam Cardiovascular Exam: REGULAR RHYTHM, +S1, +S2 - GI/Abdominal Exam GI & Abdominal Exam: Soft, Normal Bowel Sounds. absent: Tenderness - Neurological Exam Neurological Exam: Alert, Awake, Oriented x3 - Extremities Exam Extremities Exam: absent: Pedal Edema, Tenderness Plan - A. End of FITNESS/WELLNESS DIRECTOR Vital Signs: Blood Pressure: 158/99 Pulse Rate: 105 Respiratory Rate: 20 O2 Sat by Pulse Oximetry: 100 - B. Assessment of Findings&Treatment Plan 26 year old female with past medical history of questionable seizure disorder has rapid response called for seizure like activity. Nurse called FITNESS/WELLNESS DIRECTOR. Nurse stated that patient was asking for Ativan for nausea. When told that Ativan is only to be given for seizure like activity, patient began to shake and have tonic clonic movement that lasted only a few minutes. After the the shaking stopped, patient immediately began to cry and ask for Ativan. No tongue biting , bowel or bladder incontinence observed. Patient was conversing without difficulty after the shaking. Assessment and Plan: -seizure like activity: Ativan 1 mg IVP given.
[2016-11-06] MEDS: Sodium Chloride 0.9% 1,000 ML IV SCH ×4 (02:38→22:01)
[2016-11-06] MEDS: Potassium Chloride 10 mEq ER Tab PO SCH (08:00)
[2016-11-06] MEDS: (Novolog) Insulin Aspart, Recombinant 100 u/ml 10 ml vial SC SCH ×7 (08:25→21:52)
--- NOTE | 2016-11-06 10:00 | CP.PCM.PN ---
Subjective - Date & Time of Evaluation Date of Evaluation: 11/06/16 Time of Evaluation: 08:50 - Subjective Subjective: PGY3 Medicine Note - Dr. Jackelyn Coker's service: Patient seen and examined at bedside this AM. Patient reports vomiting throughout the night and abdominal pain. Patient denies fever, chills, chest pain, SOB. Objective - Vital Signs/Intake and Output Vital Signs (last 24 hours): Temp Pulse Resp BP Pulse Ox 97.5 F L 83 18 156/103 H 95 11/06/16 07:00 11/06/16 07:00 11/06/16 07:00 11/06/16 07:00 11/06/16 07:00 - Medications Medications: Current Medications Acetaminophen (Tylenol 325mg Tab) 650 mg PO BID PRN PRN Reason: Fever >100.4 F Amlodipine Besylate (Norvasc) 10 mg PO DAILY [facility] Last Admin: 11/06/16 09:08 Dose: Not Given Clonazepam (Klonopin) 0.5 mg PO BID [facility] Last Admin: 11/05/16 18:05 Dose: Not Given Cyanocobalamin (Vitamin B12 1000 Mcg Tab) 1,000 mcg PO DAILY [facility] Last Admin: 11/05/16 14:21 Dose: 1,000 mcg Docusate Sodium (Colace) 100 mg PO BID [facility] Last Admin: 11/05/16 18:05 Dose: Not Given Enoxaparin Sodium (Lovenox) 40 mg SC DAILY [facility] Last Admin: 11/04/16 10:24 Dose: 40 mg Escitalopram Oxalate (Lexapro) 5 mg PO DAILY [facility] Last Admin: 11/05/16 14:19 Dose: 5 mg Ferrous Sulfate (Feosol) 325 mg PO BID [facility] Last Admin: 11/05/16 18:05 Dose: Not Given Heparin Sodium (Porcine) (Heparin) 5,000 units SC Q8H [facility] Levetiracetam 750 mg/ Sodium (Chloride) 107.5 mls @ 420 mls/hr IVPB Q12 [facility] Last Admin: 11/05/16 21:38 Dose: 420 mls/hr Sodium Chloride (Sodium Chloride 0.9%) 1,000 mls @ 100 mls/hr IV .Q10H [facility] Last Admin: 11/06/16 06:46 Dose: Not Given Insulin Aspart (Novolog) 0 unit SC ACHS [facility] PRN Reason: Protocol Last Admin: 11/06/16 08:25 Dose: 5 unit Insulin Aspart (Novolog) 5 unit SC ACTID [facility] Last Admin: 11/06/16 08:25 Dose: 5 unit Insulin Glargine (Lantus) 8 unit SC HS [facility] Last Admin: 11/05/16 21:48 Dose: Not Given Lactulose (Enulose) 20 gm PO HS [facility] Last Admin: 11/05/16 21:38 Dose: 20 gm Lamotrigine (Lamictal) 25 mg PO BID [facility] Last Admin: 11/05/16 18:05 Dose: Not Given Levetiracetam (Keppra) 750 mg PO BID [facility] Lisinopril (Zestril) 20 mg PO DAILY [facility] Last Admin: 11/06/16 09:09 Dose: Not Given Lorazepam (Ativan) 1 mg IVP Q4H PRN PRN Reason: Seizure activity Last Admin: 11/06/16 08:28 Dose: 1 mg Metoclopramide HCl (Reglan) 10 mg PO Q8 PRN PRN Reason: Nausea/Vomiting Morphine Sulfate (Morphine) 2 mg IVP Q8 PRN PRN Reason: pain Last Admin: 11/06/16 02:38 Dose: 2 mg Ondansetron HCl (Zofran Inj) 4 mg IVP Q8 PRN PRN Reason: Nausea/Vomiting Last Admin: 11/06/16 08:23 Dose: 4 mg Ondansetron HCl (Zofran Odt) 8 mg SL Q8H PRN PRN Reason: Nausea/Vomiting Pantoprazole Sodium (Protonix Inj) 40 mg IVP Q12 [facility] Last Admin: 11/05/16 21:43 Dose: 40 mg Potassium Chloride (Klor-Con 10) 10 meq PO BRK [facility] Last Admin: 11/06/16 08:00 Dose: Not Given - Labs Labs: 11/05/16 06:46 11/05/16 06:46 PT 9.6 SECONDS (9.7-12.2) L 11/05/16 06:46 INR 0.9 11/05/16 06:46 APTT 26 SECONDS (21-34) 11/05/16 06:46 - Constitutional Appears: Non-toxic, No Acute Distress, Chronically Ill - Head Exam Head Exam: NORMAL INSPECTION - Eye Exam Eye Exam: EOMI - ENT Exam ENT Exam: Mucous Membranes Moist - Respiratory Exam Respiratory Exam: Clear to Ausculation Bilateral, NORMAL BREATHING PATTERN. absent: Rales, Rhonchi, Wheezes - Cardiovascular Exam Cardiovascular Exam: REGULAR RHYTHM, +S1, +S2. absent: Gallop, Rubs, Murmur - GI/Abdominal Exam GI & Abdominal Exam: Soft, Tenderness, Normal Bowel Sounds - Extremities Exam Extremities Exam: Normal Capillary Refill. absent: Pedal Edema - Neurological Exam Neurological Exam: Alert, Awake, Oriented x3 - Psychiatric Exam Psychiatric exam: Depressed - Skin Skin Exam: Normal Color, Warm Assessment and Plan - Assessment and Plan (Free Text) Assessment: Seizures: Seizure like activity yesterday. No tongue biting, incontinence, or post-ictal state. Continue Keppra 750 mg PO BID on hold Continue Lamictal 25mg PO BID Continue Levetriacetam 750 mg IV Neuro consulted- Dr. Hair - help appreciated Seizure precautions Prolactin elevated on admission MRI of brain done on 11/03 showed no hemorrhage or infarction and no gross intracranial abnormality. Mild generalized volume loss Vitamin B12 po qd Ativan 1 mg IVP q4 prn NS 75 cc Gastroparesis EGD showed LA grade C asophagitis and gastritis Awaiting pathology results Will try to do gastric emptying study again GI, Dr. Licona is consulted, help appreciated Patient was unable to do gastric emptying study secondary to vomiting Protonix 40 mg IV daily Zofran for nausea Dilaudid for pain prn Reglan 10 mg po q8 prn Constipation Colace 100 mg po BID Lactulose 20 mg po HS HTN Norvasc 10mg PO daily Losartan 50mg PO daily Monitor vitals Uncontrolled DM Patient's BS was 361 this morning. Patient counseled on strict adherence to medication regiment at home Currently on ISS Accuchecks Novolog 5u SC AC ACTID Lantus 8u SC HS HgA1C on prior admission 9.2 CKD Improving GFR 30-40 Anemia Continue iron supplements Hgb stable Prophylactic Measures Protonix 40mg IV daily SCDs Lovenox Patient counseled on discontinuing use of cannabis in light of seizure disorder PICC line placed yesterday Orders and management per Dr. Boris Coker
[2016-11-06] MEDS: Enoxaparin 40 mg Syringe SC SCH (10:02)
--- NOTE | 2016-11-06 10:03 | PN ---
DATE: 11/05/2016 UNIT#: [id number] NEUROLOGICAL PROBLEM: Seizures have been controlled with the current medication at present. No seizures since she has been admitted. PHYSICAL EXAMINATION: GENERAL: The patient is sleepy, easily arousable on calling her name. The patient is ready to undergo interventional procedures of fluoroscopy exam for PICC placement in her right arm. VITAL SIGNS: Blood pressure 147/93, mean arterial pressure of 111, respiratory rate 16, temperature 97.7, and pulse rate 92 and regular. LABORATORY DATA: Recent lab work, WBC 6.1, hemoglobin 9.5, hematocrit 29.5, platelet 291, and glucose 389. ASSESSMENT AND PLAN: From neurologic point of view, the patient is stable. We will continue the Keppra medication as recommended. The patient will be followed closely. Burt Hair MD
[2016-11-06 10:19] LABS: BASO # 0.1 K/uL (0.0-0.2); BASO % 1.1 % (0.0-2.0); EOS # 0.1 K/uL (0.0-0.7); EOS % 1.4 % (0.0-4.0); HEMATOCRIT 27.9 % (34.0-47.0); LYMPH # 1.9 K/uL (1.0-4.3); LYMPH % 35.7 % (20.0-40.0); MEAN CELL VOLUME 87.4 fL (81.0-99.0); MEAN CORPUSCULAR HEMOGLOBIN 28.5 pg (27.0-31.0); MEAN CORPUSCULAR HGB CONC 32.6 g/dL (33.0-37.0); MEAN PLATELET VOLUME 9.4 fL (7.2-11.7); MONO # 0.3 K/uL (0.0-0.8); WHITE BLOOD COUNT 5.4 K/uL (4.8-10.8)
[2016-11-06 10:27] LABS: POTASSIUM 4.2 mmol/L (3.6-5.2)
[2016-11-06 10:29] LABS: ALB/GLOB RATIO 0.8 (1.0-2.1); BILIRUBIN,TOTAL 0.3 mg/dL (0.2-1.3); TOTAL PROTEIN 4.8 g/dL (6.3-8.3)
[2016-11-06 10:30] LABS: CALCIUM 7.7 mg/dl (8.6-10.4)
--- NOTE | 2016-11-06 11:43 | CP.PCM.PN ---
Subjective - Date & Time of Evaluation Date of Evaluation: 11/06/16 Time of Evaluation: 11:40 - Subjective Subjective: F/U vomiting. Mother is present. Reports less vomiting yest, but has N/V today. Reports epig pain - mild. Denies fever, chills, SZ, LOC, YOUNGER, cough, SOB, RB, melena, constip Objective - Vital Signs/Intake and Output Vital Signs (last 24 hours): Temp Pulse Resp BP Pulse Ox 97.5 F L 83 18 156/103 H 95 11/06/16 07:00 11/06/16 07:00 11/06/16 07:00 11/06/16 07:00 11/06/16 07:00 - Medications Medications: Current Medications Acetaminophen (Tylenol 325mg Tab) 650 mg PO BID PRN PRN Reason: Fever >100.4 F Amlodipine Besylate (Norvasc) 10 mg PO DAILY [facility] Last Admin: 11/06/16 09:08 Dose: Not Given Clonazepam (Klonopin) 0.5 mg PO BID [facility] Last Admin: 11/06/16 10:01 Dose: 0.5 mg Cyanocobalamin (Vitamin B12 1000 Mcg Tab) 1,000 mcg PO DAILY [facility] Last Admin: 11/06/16 10:03 Dose: 1,000 mcg Docusate Sodium (Colace) 100 mg PO BID [facility] Last Admin: 11/06/16 10:01 Dose: 100 mg Enoxaparin Sodium (Lovenox) 40 mg SC DAILY [facility] Last Admin: 11/06/16 10:02 Dose: Not Given Escitalopram Oxalate (Lexapro) 5 mg PO DAILY [facility] Last Admin: 11/06/16 10:02 Dose: 5 mg Ferrous Sulfate (Feosol) 325 mg PO BID [facility] Last Admin: 11/06/16 10:01 Dose: 325 mg Heparin Sodium (Porcine) (Heparin) 5,000 units SC Q8H [facility] Last Admin: 11/06/16 10:01 Dose: 5,000 units Levetiracetam 750 mg/ Sodium (Chloride) 107.5 mls @ 420 mls/hr IVPB Q12 [facility] Last Admin: 11/06/16 09:39 Dose: 420 mls/hr Sodium Chloride (Sodium Chloride 0.9%) 1,000 mls @ 100 mls/hr IV .Q10H [facility] Last Admin: 11/06/16 06:46 Dose: Not Given Insulin Aspart (Novolog) 0 unit SC ACHS [facility] PRN Reason: Protocol Last Admin: 11/06/16 11:15 Dose: 2 unit Insulin Aspart (Novolog) 5 unit SC ACTID [facility] Last Admin: 11/06/16 11:14 Dose: 5 unit Insulin Glargine (Lantus) 8 unit SC HS [facility] Last Admin: 11/05/16 21:48 Dose: Not Given Lactulose (Enulose) 20 gm PO HS [facility] Last Admin: 11/05/16 21:38 Dose: 20 gm Lamotrigine (Lamictal) 25 mg PO BID [facility] Last Admin: 11/06/16 10:02 Dose: 25 mg Levetiracetam (Keppra) 750 mg PO BID [facility] Lisinopril (Zestril) 20 mg PO DAILY [facility] Last Admin: 11/06/16 09:09 Dose: Not Given Lorazepam (Ativan) 1 mg IVP Q4H PRN PRN Reason: Seizure activity Last Admin: 11/06/16 08:28 Dose: 1 mg Metoclopramide HCl (Reglan) 10 mg PO Q8 PRN PRN Reason: Nausea/Vomiting Morphine Sulfate (Morphine) 2 mg IVP Q8 PRN PRN Reason: pain Last Admin: 11/06/16 11:08 Dose: 2 mg Ondansetron HCl (Zofran Inj) 4 mg IVP Q8 PRN PRN Reason: Nausea/Vomiting Last Admin: 11/06/16 08:23 Dose: 4 mg Ondansetron HCl (Zofran Odt) 8 mg SL Q8H PRN PRN Reason: Nausea/Vomiting Pantoprazole Sodium (Protonix Inj) 40 mg IVP Q12 [facility] Last Admin: 11/06/16 10:03 Dose: 40 mg Potassium Chloride (Klor-Con 10) 10 meq PO BRK [facility] Last Admin: 11/06/16 08:00 Dose: Not Given - Labs Labs: 11/06/16 10:12 11/06/16 10:12 PT 9.6 SECONDS (9.7-12.2) L 11/05/16 06:46 INR 0.9 11/05/16 06:46 APTT 26 SECONDS (21-34) 11/05/16 06:46 - Constitutional Appears: Non-toxic - Respiratory Exam Respiratory Exam: Clear to Ausculation Bilateral - Cardiovascular Exam Cardiovascular Exam: RRR - GI/Abdominal Exam GI & Abdominal Exam: Soft, Normal Bowel Sounds. absent: Tenderness - Extremities Exam Extremities Exam: absent: Calf Tenderness - Neurological Exam Neurological Exam: Alert, Oriented x3 Assessment and Plan (1) Constipation Status: Acute (2) Abdominal pain Assessment & Plan: gastritis, KATERIN Status: Acute (3) Diabetic gastroparesis Status: Acute (4) Gastritis Status: Acute (5) HTN (hypertension) Status: Acute (6) Seizure Status: Acute (7) ARF (acute renal failure) Status: Acute (8) Anemia Status: Acute (9) Cholelithiasis Status: Acute (10) Diabetes mellitus Status: Acute (11) Vomiting Assessment & Plan: Consider gastriis, KATERIN, gastroparesis. No food debris was seen in stomach on EGd. No fluid retention in stomach. REC- gastric emptying study if able. Continue PPI BID and [place]. Discussed risks including TD and may be irreversible. Status: Acute
--- NOTE | 2016-11-06 14:03 | PN ---
DATE OF EVALUATION: 11/04/2016 TIME OF EVALUATION: 07:15 a.m. NEUROLOGICAL PROBLEM: History of seizure induced by pain. PHYSICAL EXAMINATION: VITAL SIGNS: Blood pressure 124/80, pulse rate 94, respiratory rate 16, temperature 98.3, pulse rate 84 regular. The patient is comfortably lying down, still complaining of stomach pain and nausea. The patient is scheduled to have stomach emptying time as well as endoscopy. No vomitus noted. No coffee ground vomiting in the vomitus. Neurological examination is unchanged to compare with my previous exam. The patient did have MRI of the brain yesterday, which was reviewed by me showed no acute intracranial ischemic process or hemorrhage noted. No mass or lesions. No hippocampal atrophy or mesial temporal sclerosis noted. Continue Keppra for now, continue gastroenterology workup. If all stable, eventually patient may come off Keppra. 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 That should be worked up as outpatient. It is recommended to call me back if followup is needed. Burt Hair MD
--- NOTE | 2016-11-06 20:28 | CP.PCM.PN ---
Subjective - Date & Time of Evaluation Date of Evaluation: 11/06/16 Time of Evaluation: 12:40 - Subjective Subjective: clinically same Objective - Vital Signs/Intake and Output Vital Signs (last 24 hours): Temp Pulse Resp BP Pulse Ox 98.2 F 74 20 116/77 100 11/06/16 15:39 11/06/16 15:39 11/06/16 15:39 11/06/16 15:39 11/06/16 15:39 Intake and Output: 11/06/16 11/07/16 18:59 06:59 Intake Total 800 Balance 800 - Medications Medications: Current Medications Acetaminophen (Tylenol 325mg Tab) 650 mg PO BID PRN PRN Reason: Fever >100.4 F Amlodipine Besylate (Norvasc) 10 mg PO DAILY [facility] Last Admin: 11/06/16 09:08 Dose: Not Given Clonazepam (Klonopin) 0.5 mg PO BID [facility] Last Admin: 11/06/16 18:14 Dose: 0.5 mg Cyanocobalamin (Vitamin B12 1000 Mcg Tab) 1,000 mcg PO DAILY [facility] Last Admin: 11/06/16 10:03 Dose: 1,000 mcg Docusate Sodium (Colace) 100 mg PO BID [facility] Last Admin: 11/06/16 18:17 Dose: Not Given Enoxaparin Sodium (Lovenox) 40 mg SC DAILY [facility] Last Admin: 11/06/16 10:02 Dose: Not Given Escitalopram Oxalate (Lexapro) 5 mg PO DAILY [facility] Last Admin: 11/06/16 10:02 Dose: 5 mg Ferrous Sulfate (Feosol) 325 mg PO BID [facility] Last Admin: 11/06/16 18:17 Dose: Not Given Levetiracetam 750 mg/ Sodium (Chloride) 107.5 mls @ 420 mls/hr IVPB Q12 [facility] Last Admin: 11/06/16 09:39 Dose: 420 mls/hr Sodium Chloride (Sodium Chloride 0.9%) 1,000 mls @ 100 mls/hr IV .Q10H [facility] Last Admin: 11/06/16 13:07 Dose: 100 mls/hr Insulin Aspart (Novolog) 0 unit SC ACHS [facility] PRN Reason: Protocol Last Admin: 11/06/16 16:34 Dose: Not Given Insulin Aspart (Novolog) 5 unit SC ACTID [facility] Last Admin: 11/06/16 18:17 Dose: Not Given Insulin Glargine (Lantus) 8 unit SC HS [facility] Last Admin: 11/05/16 21:48 Dose: Not Given Lactulose (Enulose) 20 gm PO HS [facility] Last Admin: 11/05/16 21:38 Dose: 20 gm Lamotrigine (Lamictal) 25 mg PO BID [facility] Last Admin: 11/06/16 18:14 Dose: 25 mg Levetiracetam (Keppra) 750 mg PO BID [facility] Lisinopril (Zestril) 20 mg PO DAILY [facility] Last Admin: 11/06/16 09:09 Dose: Not Given Lorazepam (Ativan) 1 mg IVP Q4H PRN PRN Reason: Seizure activity Last Admin: 11/06/16 08:28 Dose: 1 mg Lorazepam (Ativan) 0.5 mg PO TID PRN PRN Reason: Anxiety Last Admin: 11/06/16 18:47 Dose: 0.5 mg Metoclopramide HCl (Reglan) 10 mg PO Q8 PRN PRN Reason: Nausea/Vomiting Last Admin: 11/06/16 18:15 Dose: 10 mg Morphine Sulfate (Morphine) 2 mg IVP Q8 PRN PRN Reason: pain Last Admin: 11/06/16 11:08 Dose: 2 mg Ondansetron HCl (Zofran Inj) 4 mg IVP Q8 PRN PRN Reason: Nausea/Vomiting Last Admin: 11/06/16 16:22 Dose: 4 mg Ondansetron HCl (Zofran Odt) 8 mg SL Q8H PRN PRN Reason: Nausea/Vomiting Pantoprazole Sodium (Protonix Inj) 40 mg IVP Q12 [facility] Last Admin: 11/06/16 10:03 Dose: 40 mg Potassium Chloride (Klor-Con 10) 10 meq PO BRK [facility] Last Admin: 11/06/16 08:00 Dose: Not Given - Labs Labs: 11/06/16 10:12 11/06/16 10:12 PT 9.6 SECONDS (9.7-12.2) L 11/05/16 06:46 INR 0.9 11/05/16 06:46 APTT 26 SECONDS (21-34) 11/05/16 06:46 - Constitutional Appears: Well - Head Exam Head Exam: ATRAUMATIC, NORMAL INSPECTION, NORMOCEPHALIC - Eye Exam Eye Exam: EOMI, Normal appearance, PERRL Pupil Exam: NORMAL ACCOMODATION, PERRL - ENT Exam ENT Exam: Mucous Membranes Moist, Normal Exam. absent: Mucous Membranes Dry, Normal External Ear Exam, Normal Oropharynx, TM's Normal Bilaterally - Neck Exam Neck Exam: Full ROM, Normal Inspection. absent: Lymphadenopathy - Respiratory Exam Respiratory Exam: Decreased Breath Sounds - Cardiovascular Exam Cardiovascular Exam: REGULAR RHYTHM, +S1, +S2 - GI/Abdominal Exam GI & Abdominal Exam: Soft, Diminished Bowel Sounds - Rectal Exam Rectal Exam: Deferred Assessment and Plan (1) Benzodiazepine withdrawal Status: Acute (2) Tonic-clonic seizure Status: Acute (3) Vomiting Status: Acute (4) ARF (acute renal failure) Status: Acute (5) Abdominal pain Status: Acute (6) Abdominal pain with vomiting Status: Acute (7) Acute cystitis Status: Acute (8) Acute kidney injury Status: Acute (9) Cholelithiasis Status: Acute (10) Constipation Status: Acute (11) Cough Status: Acute (12) Dehydration Status: Acute (13) Depressive disorder Status: Acute (14) Diabetic gastroparesis Status: Acute (15) Gastritis Status: Acute (16) Gastroparesis Status: Acute (17) HTN (hypertension) Status: Acute (18) History of anemia Status: Acute (19) History of seizures Status: Acute (20) Hyperglycemia Status: Acute (21) Hyperosmolar (nonketotic) coma Status: Acute (22) Prophylactic measure Status: Acute (23) Seizure Status: Acute (24) Seizure Status: Acute (25) Seizure disorder Status: Acute (26) UTI (urinary tract infection) Status: Acute (27) UTI (urinary tract infection) Status: Acute (28) Uncontrolled diabetes mellitus Status: Acute (29) Upper GI bleed Status: Acute (30) Anemia Status: Chronic (31) Diabetes mellitus Status: Chronic (32) Seizure Status: Chronic - Assessment and Plan (Free Text) Plan: meds and labs reviewed myah same managemetn as ordered
[2016-11-06] MEDS: (Lantus) Insulin Glargine, Recombinant SC SCH (21:51)
[2016-11-07] MEDS: Sodium Chloride 0.9% 1,000 ML IV SCH ×2 (01:05→12:00)
[2016-11-07 06:47] LABS: BASO # 0.1 K/uL (0.0-0.2); BASO % 1.1 % (0.0-2.0); EOS # 0.2 K/uL (0.0-0.7); HEMATOCRIT 28.2 % (34.0-47.0); LYMPH # 2.1 K/uL (1.0-4.3); LYMPH % 36.1 % (20.0-40.0); MEAN CORPUSCULAR HGB CONC 33.7 g/dL (33.0-37.0); MONO # 0.4 K/uL (0.0-0.8); NRBC % 0.1 % (0.0-2.0); RED CELL DISTRIBUTION WIDTH 13.8 % (11.5-14.5); WHITE BLOOD COUNT 5.8 K/uL (4.8-10.8)
[2016-11-07 07:17] LABS: POTASSIUM 3.3 mmol/L (3.6-5.2)
[2016-11-07 07:20] LABS: ALB/GLOB RATIO 0.8 (1.0-2.1); BILIRUBIN,TOTAL 0.4 mg/dL (0.2-1.3); TOTAL PROTEIN 4.8 g/dL (6.3-8.3)
[2016-11-07] MEDS: (Novolog) Insulin Aspart, Recombinant 100 u/ml 10 ml vial SC SCH ×7 (08:24→22:38)
[2016-11-07] MEDS: Enoxaparin 40 mg Syringe SC SCH (11:00)
[2016-11-07] MEDS: Potassium Chloride 10 mEq ER Tab PO SCH (13:10)
--- NOTE | 2016-11-07 13:40 | CP.PCM.PN ---
Subjective - Date & Time of Evaluation Date of Evaluation: 11/07/16 Time of Evaluation: 13:29 - Subjective Subjective: PGY2 progress note for Dr. Coker Pt is seen and examined at bedside. No acute events overnight. Patient continues to complain of epigastric abdominal pain, N/V. She refuses to take po medications and is refusing gastric emptying study and EKG. Patient denies having any SOB, D/C. Patient is not tolerating diet at this point. 12 point ROS are negative except for the above mentioned. Objective - Vital Signs/Intake and Output Vital Signs (last 24 hours): Temp Pulse Resp BP Pulse Ox 98.7 F 109 H 18 140/75 100 11/07/16 07:00 11/07/16 12:08 11/07/16 10:42 11/07/16 12:08 11/07/16 10:42 Intake and Output: 11/07/16 11/07/16 06:59 18:59 Intake Total 1220 Balance 1220 - Medications Medications: Current Medications Acetaminophen (Tylenol 325mg Tab) 650 mg PO BID PRN PRN Reason: Fever >100.4 F Amlodipine Besylate (Norvasc) 10 mg PO DAILY [facility] Last Admin: 11/07/16 11:00 Dose: Not Given Clonazepam (Klonopin) 0.5 mg PO BID [facility] Last Admin: 11/07/16 11:00 Dose: Not Given Cyanocobalamin (Vitamin B12 1000 Mcg Tab) 1,000 mcg PO DAILY [facility] Last Admin: 11/07/16 11:00 Dose: Not Given Docusate Sodium (Colace) 100 mg PO BID [facility] Last Admin: 11/07/16 11:00 Dose: Not Given Enoxaparin Sodium (Lovenox) 40 mg SC DAILY [facility] Last Admin: 11/07/16 11:00 Dose: Not Given Escitalopram Oxalate (Lexapro) 5 mg PO DAILY [facility] Last Admin: 11/07/16 11:00 Dose: Not Given Ferrous Sulfate (Feosol) 325 mg PO BID [facility] Last Admin: 11/07/16 11:00 Dose: Not Given Hydralazine HCl (Apresoline) 5 mg IVP Q6H PRN PRN Reason: Other Last Admin: 11/07/16 11:57 Dose: 5 mg Levetiracetam 750 mg/ Sodium (Chloride) 107.5 mls @ 420 mls/hr IVPB Q12 [facility] Last Admin: 11/07/16 10:46 Dose: 420 mls/hr Sodium Chloride (Sodium Chloride 0.9%) 1,000 mls @ 100 mls/hr IV .Q10H [facility] Last Admin: 11/07/16 01:05 Dose: Not Given Potassium Chloride (Potassium Chloride 20 Meq/100 Ml) 20 meq in 100 mls @ 50 mls/hr IVPB ONCE ONE Stop: 11/07/16 15:08 Insulin Aspart (Novolog) 0 unit SC ACHS [facility] PRN Reason: Protocol Last Admin: 11/07/16 12:30 Dose: Not Given Insulin Aspart (Novolog) 5 unit SC ACTID [facility] Last Admin: 11/07/16 13:11 Dose: Not Given Insulin Glargine (Lantus) 8 unit SC HS [facility] Last Admin: 11/06/16 21:51 Dose: 8 units Lactulose (Enulose) 20 gm PO HS [facility] Last Admin: 11/06/16 21:55 Dose: Not Given Lamotrigine (Lamictal) 25 mg PO BID [facility] Last Admin: 11/07/16 11:00 Dose: Not Given Levetiracetam (Keppra) 750 mg PO BID [facility] Lisinopril (Zestril) 20 mg PO DAILY [facility] Last Admin: 11/07/16 11:00 Dose: Not Given Lorazepam (Ativan) 1 mg IVP Q4H PRN PRN Reason: Seizure activity Last Admin: 11/07/16 10:43 Dose: 1 mg Lorazepam (Ativan) 0.5 mg PO TID PRN PRN Reason: Anxiety Last Admin: 11/07/16 04:58 Dose: 0.5 mg Metoclopramide HCl (Reglan) 10 mg PO Q8 PRN PRN Reason: Nausea/Vomiting Last Admin: 11/06/16 18:15 Dose: 10 mg Morphine Sulfate (Morphine) 2 mg IVP Q8 PRN PRN Reason: pain Last Admin: 11/07/16 06:01 Dose: 2 mg Ondansetron HCl (Zofran Inj) 4 mg IVP Q8 PRN PRN Reason: Nausea/Vomiting Last Admin: 11/07/16 04:43 Dose: 4 mg Ondansetron HCl (Zofran Odt) 8 mg SL Q8H PRN PRN Reason: Nausea/Vomiting Pantoprazole Sodium (Protonix Inj) 40 mg IVP Q12 [facility] Last Admin: 11/07/16 11:56 Dose: 40 mg Potassium Chloride (Klor-Con 10) 10 meq PO BRK [facility] Last Admin: 11/07/16 13:10 Dose: Not Given - Labs Labs: 11/07/16 06:23 11/07/16 06:23 PT 9.6 SECONDS (9.7-12.2) L 11/05/16 06:46 INR 0.9 11/05/16 06:46 APTT 26 SECONDS (21-34) 11/05/16 06:46 - Constitutional Appears: Non-toxic, No Acute Distress - Head Exam Head Exam: ATRAUMATIC - Eye Exam Eye Exam: EOMI - ENT Exam ENT Exam: Mucous Membranes Moist - Respiratory Exam Respiratory Exam: Clear to Ausculation Bilateral. absent: Accessory Muscle Use , Rales, Rhonchi, Wheezes, Respiratory Distress - Cardiovascular Exam Cardiovascular Exam: REGULAR RHYTHM, +S1, +S2. absent: Gallop, Rubs, Murmur - GI/Abdominal Exam GI & Abdominal Exam: Soft, Normal Bowel Sounds. absent: Firm, Guarding, Rigid, Tenderness, Organomegaly - Extremities Exam Extremities Exam: absent: Pedal Edema, Tenderness - Neurological Exam Neurological Exam: Alert, Awake, Oriented x3 - Psychiatric Exam Psychiatric exam: Normal Affect, Normal Mood - Skin Skin Exam: Dry, Intact, Normal Color, Warm Assessment and Plan - Assessment and Plan (Free Text) Assessment: Seizures: Stable EEG done from 10/29/16 was normal Continue Keppra 750 mg PO BID on hold Continue Lamictal 25mg PO BID Continue Levetriacetam 750 mg IV Neuro consulted- Dr. Hair - help appreciated Seizure precautions Prolactin elevated on admission MRI of brain done on 11/03 showed no hemorrhage or infarction and no gross intracranial abnormality. Mild generalized volume loss Vitamin B12 po qd Ativan 1 mg IVP q4 prn NS 75 cc Chest pain Initial trop is negative Patient refused to lay still for EKG Patient refused to take Aspirin Patient was only complaint with taking Morphine 1 mg stat Epigastric pain EGD showed LA grade C esophagitis and gastritis. EGD did not show any residual food or liquids so gastroparesis less likely Pathology shows mild chronic inflammation and reactive changes. Negative for H pylori Patient refuses gastric emptying study GI, Dr. Licona is consulted, recommend outpatient follow up at tertiary center Protonix 40 mg IV daily Zofran for nausea Dilaudid for pain prn Reglan 10 mg po q8 prn Constipation Colace 100 mg po BID Lactulose 20 mg po HS HTN Norvasc 10mg PO daily Losartan 50mg PO daily Monitor vitals Uncontrolled DM Patient's BS was 361 this morning. Patient counseled on strict adherence to medication regiment at home Currently on ISS Accuchecks Novolog 5u SC AC ACTID Lantus 8u SC HS HgA1C on prior admission 9.2 CKD Improving GFR 30-40 Anemia Continue iron supplements Hgb stable Prophylactic Measures Protonix 40mg IV daily SCDs Lovenox Patient counseled on discontinuing use of cannabis in light of seizure disorder Patient is refusing all of her PO medications. Physical therapy was consulted today for weakness. patient refused to be seen by PT Orders and management per Dr. Boris Coker Patient is stable for discharge home per Dr. Coker Patient is to follow up with PMD upon discharge Patient is to follow up with GI specialist upon discharge. Patient is to continue all of her home medications as prescribed. If symptoms worsen, please return to ED.
--- NOTE | 2016-11-07 17:46 | CP.PCM.PN ---
Subjective - Date & Time of Evaluation Date of Evaluation: 11/07/16 Time of Evaluation: 12:20 - Subjective Subjective: clinically same Objective - Vital Signs/Intake and Output Vital Signs (last 24 hours): Temp Pulse Resp BP Pulse Ox 98.7 F 126 H 20 180/112 H 100 11/07/16 07:00 11/07/16 15:18 11/07/16 15:18 11/07/16 15:18 11/07/16 10:42 Intake and Output: 11/07/16 11/07/16 06:59 18:59 Intake Total 1220 920 Balance 1220 920 - Medications Medications: Current Medications Acetaminophen (Tylenol 325mg Tab) 650 mg PO BID PRN PRN Reason: Fever >100.4 F Amlodipine Besylate (Norvasc) 10 mg PO DAILY [facility] Last Admin: 11/07/16 11:00 Dose: Not Given Clonazepam (Klonopin) 0.5 mg PO BID [facility] Last Admin: 11/07/16 11:00 Dose: Not Given Cyanocobalamin (Vitamin B12 1000 Mcg Tab) 1,000 mcg PO DAILY [facility] Last Admin: 11/07/16 11:00 Dose: Not Given Docusate Sodium (Colace) 100 mg PO BID [facility] Last Admin: 11/07/16 11:00 Dose: Not Given Enoxaparin Sodium (Lovenox) 40 mg SC DAILY [facility] Last Admin: 11/07/16 11:00 Dose: Not Given Escitalopram Oxalate (Lexapro) 5 mg PO DAILY [facility] Last Admin: 11/07/16 11:00 Dose: Not Given Ferrous Sulfate (Feosol) 325 mg PO BID [facility] Last Admin: 11/07/16 11:00 Dose: Not Given Hydralazine HCl (Apresoline) 5 mg IVP Q6H PRN PRN Reason: Other Last Admin: 11/07/16 16:16 Dose: 5 mg Levetiracetam 750 mg/ Sodium (Chloride) 107.5 mls @ 420 mls/hr IVPB Q12 [facility] Last Admin: 11/07/16 10:46 Dose: 420 mls/hr Sodium Chloride (Sodium Chloride 0.9%) 1,000 mls @ 100 mls/hr IV .Q10H [facility] Last Admin: 11/07/16 12:00 Dose: Not Given Insulin Aspart (Novolog) 0 unit SC ACHS [facility] PRN Reason: Protocol Last Admin: 11/07/16 16:56 Dose: 6 unit Insulin Aspart (Novolog) 5 unit SC ACTID [facility] Last Admin: 11/07/16 13:11 Dose: Not Given Insulin Glargine (Lantus) 8 unit SC HS [facility] Last Admin: 11/06/16 21:51 Dose: 8 units Lactulose (Enulose) 20 gm PO HS [facility] Last Admin: 11/06/16 21:55 Dose: Not Given Lamotrigine (Lamictal) 25 mg PO BID [facility] Last Admin: 11/07/16 11:00 Dose: Not Given Levetiracetam (Keppra) 750 mg PO BID [facility] Lisinopril (Zestril) 20 mg PO DAILY [facility] Last Admin: 11/07/16 11:00 Dose: Not Given Lorazepam (Ativan) 1 mg IVP Q4H PRN PRN Reason: Seizure activity Last Admin: 11/07/16 10:43 Dose: 1 mg Lorazepam (Ativan) 0.5 mg PO TID PRN PRN Reason: Anxiety Last Admin: 11/07/16 04:58 Dose: 0.5 mg Metoclopramide HCl (Reglan) 10 mg PO Q8 PRN PRN Reason: Nausea/Vomiting Last Admin: 11/06/16 18:15 Dose: 10 mg Morphine Sulfate (Morphine) 2 mg IVP Q8 PRN PRN Reason: pain Last Admin: 11/07/16 06:01 Dose: 2 mg Ondansetron HCl (Zofran Inj) 4 mg IVP Q8 PRN PRN Reason: Nausea/Vomiting Last Admin: 11/07/16 14:02 Dose: 4 mg Ondansetron HCl (Zofran Odt) 8 mg SL Q8H PRN PRN Reason: Nausea/Vomiting Pantoprazole Sodium (Protonix Inj) 40 mg IVP Q12 [facility] Last Admin: 11/07/16 11:56 Dose: 40 mg Potassium Chloride (Klor-Con 10) 10 meq PO BRK [facility] Last Admin: 11/07/16 13:10 Dose: Not Given - Labs Labs: 11/07/16 06:23 11/07/16 06:23 PT 9.6 SECONDS (9.7-12.2) L 11/05/16 06:46 INR 0.9 11/05/16 06:46 APTT 26 SECONDS (21-34) 11/05/16 06:46 - Constitutional Appears: Well - Head Exam Head Exam: ATRAUMATIC, NORMAL INSPECTION, NORMOCEPHALIC - Eye Exam Eye Exam: EOMI, Normal appearance, PERRL Pupil Exam: NORMAL ACCOMODATION, PERRL - ENT Exam ENT Exam: Mucous Membranes Moist, Normal Exam - Neck Exam Neck Exam: Full ROM, Normal Inspection. absent: Lymphadenopathy - Respiratory Exam Respiratory Exam: Decreased Breath Sounds - Cardiovascular Exam Cardiovascular Exam: REGULAR RHYTHM, +S1, +S2 - GI/Abdominal Exam GI & Abdominal Exam: Soft, Diminished Bowel Sounds - Rectal Exam Rectal Exam: Deferred
[2016-11-07] MEDS: (Lantus) Insulin Glargine, Recombinant SC SCH (22:38)
[2016-11-08] MEDS: (Novolog) Insulin Aspart, Recombinant 100 u/ml 10 ml vial SC SCH ×7 (09:38→22:23)
[2016-11-08] MEDS: Potassium Chloride 10 mEq ER Tab PO SCH (09:50)
[2016-11-08] MEDS: Enoxaparin 40 mg Syringe SC SCH (09:55)
--- NOTE | 2016-11-08 13:51 | CP.PCM.PN ---
Subjective - Date & Time of Evaluation Date of Evaluation: 11/08/16 Time of Evaluation: 12:20 - Subjective Subjective: clinically same Objective - Vital Signs/Intake and Output Vital Signs (last 24 hours): Temp Pulse Resp BP Pulse Ox 97.4 F L 101 H 20 129/82 100 11/08/16 08:25 11/08/16 13:38 11/08/16 08:25 11/08/16 13:38 11/08/16 08:25 Intake and Output: 11/08/16 11/08/16 06:59 18:59 Intake Total 800 Output Total 750 Balance 50 - Medications Medications: Current Medications Acetaminophen (Tylenol 325mg Tab) 650 mg PO BID PRN PRN Reason: Fever >100.4 F Amlodipine Besylate (Norvasc) 10 mg PO DAILY [facility] Last Admin: 11/08/16 09:50 Dose: 10 mg Clonazepam (Klonopin) 0.5 mg PO BID [facility] Last Admin: 11/08/16 09:50 Dose: 0.5 mg Cyanocobalamin (Vitamin B12 1000 Mcg Tab) 1,000 mcg PO DAILY [facility] Last Admin: 11/08/16 09:51 Dose: 1,000 mcg Docusate Sodium (Colace) 100 mg PO BID [facility] Last Admin: 11/08/16 09:50 Dose: 100 mg Enoxaparin Sodium (Lovenox) 40 mg SC DAILY [facility] Last Admin: 11/08/16 09:55 Dose: 40 mg Escitalopram Oxalate (Lexapro) 5 mg PO DAILY [facility] Last Admin: 11/08/16 09:51 Dose: 5 mg Ferrous Sulfate (Feosol) 325 mg PO BID [facility] Last Admin: 11/08/16 09:50 Dose: 325 mg Hydralazine HCl (Apresoline) 5 mg IVP Q6H PRN PRN Reason: Other Last Admin: 11/07/16 16:16 Dose: 5 mg Levetiracetam 750 mg/ Sodium (Chloride) 107.5 mls @ 420 mls/hr IVPB Q12 [facility] Last Admin: 11/08/16 09:40 Dose: 420 mls/hr Insulin Aspart (Novolog) 0 unit SC ACHS [facility] PRN Reason: Protocol Last Admin: 11/08/16 13:44 Dose: 5 unit Insulin Aspart (Novolog) 5 unit SC ACTID [facility] Last Admin: 11/08/16 13:44 Dose: 5 unit Insulin Glargine (Lantus) 8 unit SC HS [facility] Last Admin: 11/07/16 22:38 Dose: 8 units Lactulose (Enulose) 20 gm PO HS [facility] Last Admin: 11/06/16 21:55 Dose: Not Given Lamotrigine (Lamictal) 25 mg PO BID [facility] Last Admin: 11/08/16 09:51 Dose: 25 mg Levetiracetam (Keppra) 750 mg PO BID [facility] Lisinopril (Zestril) 20 mg PO DAILY [facility] Last Admin: 11/08/16 09:50 Dose: 20 mg Lorazepam (Ativan) 1 mg IVP Q4H PRN PRN Reason: Seizure activity Last Admin: 11/08/16 12:10 Dose: 1 mg Lorazepam (Ativan) 0.5 mg PO TID PRN PRN Reason: Anxiety Last Admin: 11/08/16 06:35 Dose: 0.5 mg Metoclopramide HCl (Reglan) 10 mg PO Q8 PRN PRN Reason: Nausea/Vomiting Last Admin: 11/06/16 18:15 Dose: 10 mg Morphine Sulfate (Morphine) 2 mg IVP Q6H PRN PRN Reason: pain Ondansetron HCl (Zofran Inj) 4 mg IVP Q8 PRN PRN Reason: Nausea/Vomiting Last Admin: 11/08/16 05:27 Dose: 4 mg Ondansetron HCl (Zofran Odt) 8 mg SL Q8H PRN PRN Reason: Nausea/Vomiting Pantoprazole Sodium (Protonix Inj) 40 mg IVP Q12 [facility] Last Admin: 11/08/16 09:39 Dose: 40 mg Potassium Chloride (Klor-Con 10) 10 meq PO BRK [facility] Last Admin: 11/08/16 09:50 Dose: 10 meq - Labs Labs: 11/07/16 06:23 11/07/16 06:23 PT 9.6 SECONDS (9.7-12.2) L 11/05/16 06:46 INR 0.9 11/05/16 06:46 APTT 26 SECONDS (21-34) 11/05/16 06:46 - Constitutional Appears: Well - Head Exam Head Exam: ATRAUMATIC, NORMAL INSPECTION, NORMOCEPHALIC - Eye Exam Eye Exam: EOMI, Normal appearance, PERRL - ENT Exam ENT Exam: Mucous Membranes Moist, Normal Exam - Neck Exam Neck Exam: Full ROM, Normal Inspection. absent: Lymphadenopathy - Respiratory Exam Respiratory Exam: Decreased Breath Sounds - Cardiovascular Exam Cardiovascular Exam: REGULAR RHYTHM, +S1, +S2 - GI/Abdominal Exam GI & Abdominal Exam: Soft, Diminished Bowel Sounds - Rectal Exam Rectal Exam: Deferred - Neurological Exam Neurological Exam: Alert Assessment and Plan (1) Benzodiazepine withdrawal Status: Acute (2) Tonic-clonic seizure Status: Acute (3) Vomiting Status: Acute (4) ARF (acute renal failure) Status: Acute (5) Abdominal pain Status: Acute (6) Abdominal pain with vomiting Status: Acute (7) Acute cystitis Status: Acute (8) Acute kidney injury Status: Acute (9) Cholelithiasis Status: Acute (10) Constipation Status: Acute (11) Cough Status: Acute (12) Dehydration Status: Acute (13) Depressive disorder Status: Acute (14) Diabetic gastroparesis Status: Acute (15) Gastritis Status: Acute (16) Gastroparesis Status: Acute (17) HTN (hypertension) Status: Acute (18) History of anemia Status: Acute (19) History of seizures Status: Acute (20) Hyperglycemia Status: Acute (21) Hyperosmolar (nonketotic) coma Status: Acute (22) Prophylactic measure Status: Acute (23) Seizure Status: Acute (24) Seizure Status: Acute (25) Seizure disorder Status: Acute (26) UTI (urinary tract infection) Status: Acute (27) UTI (urinary tract infection) Status: Acute (28) Uncontrolled diabetes mellitus Status: Acute (29) Upper GI bleed Status: Acute (30) Anemia Status: Chronic (31) Diabetes mellitus Status: Chronic (32) Seizure Status: Chronic - Assessment and Plan (Free Text) Plan: meds reviewed myah management as ordered monitor Gluc myah same
[2016-11-08] MEDS ORDERED: Dextrose 50% SYRINGE Inj (50 ml) ONE (21:24)
[2016-11-08] MEDS ORDERED: Dextrose 50% SYRINGE Inj (50 ml) IV STA (21:25)
[2016-11-08] MEDS: (Lantus) Insulin Glargine, Recombinant SC SCH (22:23)
[2016-11-09 00:24] VITALS: RESP 20
[2016-11-09] MEDS: (Novolog) Insulin Aspart, Recombinant 100 u/ml 10 ml vial SC SCH ×7 (08:30→21:38)
[2016-11-09] MEDS: Potassium Chloride 10 mEq ER Tab PO SCH ×2 (12:05→15:06)
[2016-11-09] MEDS: Enoxaparin 40 mg Syringe SC SCH (12:11)
--- NOTE | 2016-11-09 12:42 | CP.PCM.PN ---
Subjective - Date & Time of Evaluation Date of Evaluation: 11/09/16 Time of Evaluation: 11:50 - Subjective Subjective: clinically same Objective - Vital Signs/Intake and Output Vital Signs (last 24 hours): Temp Pulse Resp BP Pulse Ox 986 F H 97 H 20 186/97 H 97 11/09/16 08:52 11/09/16 12:01 11/09/16 08:52 11/09/16 12:01 11/09/16 08:52 Intake and Output: 11/09/16 11/09/16 06:59 18:59 Intake Total 350 Balance 350 - Medications Medications: Current Medications Acetaminophen (Tylenol 325mg Tab) 650 mg PO BID PRN PRN Reason: Fever >100.4 F Amlodipine Besylate (Norvasc) 10 mg PO DAILY [facility] Last Admin: 11/09/16 12:05 Dose: 10 mg Clonazepam (Klonopin) 0.5 mg PO BID [facility] Last Admin: 11/09/16 12:05 Dose: 0.5 mg Cyanocobalamin (Vitamin B12 1000 Mcg Tab) 1,000 mcg PO DAILY [facility] Last Admin: 11/09/16 12:07 Dose: 1,000 mcg Docusate Sodium (Colace) 100 mg PO BID [facility] Last Admin: 11/09/16 12:05 Dose: 100 mg Enoxaparin Sodium (Lovenox) 40 mg SC DAILY [facility] Last Admin: 11/09/16 12:11 Dose: 40 mg Escitalopram Oxalate (Lexapro) 5 mg PO DAILY [facility] Last Admin: 11/09/16 12:06 Dose: 5 mg Ferrous Sulfate (Feosol) 325 mg PO BID [facility] Last Admin: 11/09/16 12:05 Dose: 325 mg Hydralazine HCl (Apresoline) 5 mg IVP Q6H PRN PRN Reason: Other Last Admin: 11/07/16 16:16 Dose: 5 mg Insulin Aspart (Novolog) 0 unit SC ACHS [facility] PRN Reason: Protocol Last Admin: 11/09/16 08:30 Dose: Not Given Insulin Aspart (Novolog) 5 unit SC ACTID [facility] Last Admin: 11/09/16 08:30 Dose: Not Given Insulin Glargine (Lantus) 8 unit SC HS [facility] Last Admin: 11/08/16 22:23 Dose: Not Given Lactulose (Enulose) 20 gm PO HS [facility] Last Admin: 11/08/16 22:22 Dose: Not Given Lamotrigine (Lamictal) 25 mg PO BID [facility] Last Admin: 11/09/16 12:07 Dose: 25 mg Levetiracetam (Keppra) 750 mg PO BID [facility] Lisinopril (Zestril) 20 mg PO DAILY [facility] Last Admin: 11/09/16 11:00 Dose: Not Given Lorazepam (Ativan) 1 mg IVP Q4H PRN PRN Reason: Seizure activity Last Admin: 11/08/16 12:10 Dose: 1 mg Lorazepam (Ativan) 0.5 mg PO TID PRN PRN Reason: Anxiety Last Admin: 11/08/16 06:35 Dose: 0.5 mg Metoclopramide HCl (Reglan) 10 mg PO Q8 PRN PRN Reason: Nausea/Vomiting Last Admin: 11/09/16 05:16 Dose: 10 mg Morphine Sulfate (Morphine) 2 mg IVP Q6H PRN PRN Reason: pain Last Admin: 11/09/16 05:17 Dose: 2 mg Ondansetron HCl (Zofran Inj) 4 mg IVP Q8 PRN PRN Reason: Nausea/Vomiting Last Admin: 11/08/16 05:27 Dose: 4 mg Ondansetron HCl (Zofran Odt) 8 mg SL Q8H PRN PRN Reason: Nausea/Vomiting Pantoprazole Sodium (Protonix Inj) 40 mg IVP Q12 [facility] Last Admin: 11/09/16 11:00 Dose: Not Given Potassium Chloride (Klor-Con 10) 10 meq PO BRK [facility] Last Admin: 11/09/16 12:05 Dose: 10 meq - Labs Labs: 11/07/16 06:23 11/07/16 06:23 PT 9.6 SECONDS (9.7-12.2) L 11/05/16 06:46 INR 0.9 11/05/16 06:46 APTT 26 SECONDS (21-34) 11/05/16 06:46 - Constitutional Appears: Well - Head Exam Head Exam: ATRAUMATIC, NORMAL INSPECTION, NORMOCEPHALIC - Eye Exam Eye Exam: EOMI, Normal appearance, PERRL - ENT Exam ENT Exam: Mucous Membranes Moist, Normal Exam - Neck Exam Neck Exam: Full ROM, Normal Inspection. absent: Lymphadenopathy - Respiratory Exam Respiratory Exam: Decreased Breath Sounds - Cardiovascular Exam Cardiovascular Exam: REGULAR RHYTHM, +S1, +S2. absent: Murmur - GI/Abdominal Exam GI & Abdominal Exam: Soft, Diminished Bowel Sounds - Rectal Exam Rectal Exam: Deferred - Neurological Exam Neurological Exam: Alert, Awake Assessment and Plan (1) Benzodiazepine withdrawal Status: Acute (2) Tonic-clonic seizure Status: Acute (3) Vomiting Status: Acute (4) ARF (acute renal failure) Status: Acute (5) Abdominal pain Status: Acute (6) Abdominal pain with vomiting Status: Acute (7) Acute cystitis Status: Acute (8) Acute kidney injury Status: Acute (9) Cholelithiasis Status: Acute (10) Constipation Status: Acute (11) Cough Status: Acute (12) Dehydration Status: Acute (13) Depressive disorder Status: Acute (14) Diabetic gastroparesis Status: Acute (15) Gastritis Status: Acute (16) Gastroparesis Status: Acute (17) HTN (hypertension) Status: Acute (18) History of anemia Status: Acute (19) History of seizures Status: Acute (20) Hyperglycemia Status: Acute (21) Hyperosmolar (nonketotic) coma Status: Acute (22) Prophylactic measure Status: Acute (23) Seizure Status: Acute (24) Seizure Status: Acute (25) Seizure disorder Status: Acute (26) UTI (urinary tract infection) Status: Acute (27) UTI (urinary tract infection) Status: Acute (28) Uncontrolled diabetes mellitus Status: Acute (29) Upper GI bleed Status: Acute (30) Anemia Status: Chronic (31) Diabetes mellitus Status: Chronic (32) Seizure Status: Chronic - Assessment and Plan (Free Text) Plan: clinically same myah same iv abx management as ordered meds reviewed
[2016-11-09] MEDS: levETIRAcetam 100 mg/ml (5ml) Oral Syringe PO SCH ×2 (13:13→18:00)
[2016-11-09] MEDS: (Lantus) Insulin Glargine, Recombinant SC SCH (21:38)
[2016-11-10] MEDS: Potassium Chloride 10 mEq ER Tab PO SCH ×2 (08:25→08:26)
[2016-11-10] MEDS: (Novolog) Insulin Aspart, Recombinant 100 u/ml 10 ml vial SC SCH ×4 (08:30→13:13)
[2016-11-10] MEDS: levETIRAcetam 100 mg/ml (5ml) Oral Syringe PO SCH (10:42)
[2016-11-10] MEDS: Enoxaparin 40 mg Syringe SC SCH (10:45)
[2016-11-10 13:30] VITALS: BP 153/96; PULSE 98; TEMP 98.9; O2SAT 96
--- NOTE | 2016-11-14 10:13 | CARD ---
APPROVED REPORT EKG Measurement Heart [id number] <Conclusion> Sinus tachycardia Otherwise normal ECG
== END 2016-11-10 14:09 | disposition home or self-care (01) | DRG 533 ==
LOC: C.ER 09:47 → C.9E 12:24 → C.6T 13:34
PROVIDERS: ADMIT Internal Medicine Nephrology; ATTEND Internal Medicine Nephrology
PROC: 02HV33Z Insertion of Infusion Device into Superior Vena Cava, Percutaneous Approach (ICD-10-PCS; 2016-11-04)
PROC: 0DB68ZX Excision of Stomach, Via Natural or Artificial Opening Endoscopic, Diagnostic (ICD-10-PCS; principal; 2016-11-05 11:56)
DX: E11.43 Type 2 diabetes mellitus with diabetic autonomic (poly)neuropathy (principal); N17.9 Acute kidney failure, unspecified; E11.22 Type 2 diabetes mellitus with diabetic chronic kidney disease; E11.65 Type 2 diabetes mellitus with hyperglycemia; N18.9 Chronic kidney disease, unspecified; K31.84 Gastroparesis; K29.70 Gastritis, unspecified, without bleeding; K59.00 Constipation, unspecified; D64.9 Anemia, unspecified; G40.909 Epilepsy, unspecified, not intractable, without status epilepticus; F31.9 Bipolar disorder, unspecified; K20.8 Other esophagitis; F41.9 Anxiety disorder, unspecified; I12.9 Hypertensive chronic kidney disease with stage 1 through stage 4 chronic kidney disease, or unspecified chronic kidney disease; K21.9 Gastro-esophageal reflux disease without esophagitis; F12.90 Cannabis use, unspecified, uncomplicated; M81.0 Age-related osteoporosis without current pathological fracture; K80.20 Calculus of gallbladder without cholecystitis without obstruction; Z79.4 Long term (current) use of insulin

== ENCOUNTER 2016-12-06 10:27 | Inpatient (IN) | payer MEDICAID ==
[2016-12-06 10:27] VITALS: BMI 26.4
[2016-12-06] MEDS ORDERED: Sodium Chloride 0.9% 1,000 ML IV STA ×2 (10:40→11:24)
[2016-12-06] MEDS ORDERED: Sodium Chloride 0.9% 0 ML ONE (11:05)
[2016-12-06 11:07] LABS: BASO # 0.1 K/uL (0.0-0.2); BASO % 1.2 % (0.0-2.0); EOS # 0.1 K/uL (0.0-0.7); EOS % 0.6 % (0.0-4.0); HEMATOCRIT 34.4 % (34.0-47.0); LYMPH % 10.9 % (20.0-40.0); MEAN CORPUSCULAR HEMOGLOBIN 27.4 pg (27.0-31.0); MEAN CORPUSCULAR HGB CONC 31.6 g/dL (33.0-37.0); MEAN PLATELET VOLUME 8.8 fL (7.2-11.7); MONO # 0.3 K/uL (0.0-0.8); MONO % 3.6 % (0.0-10.0); RED CELL DISTRIBUTION WIDTH 14.7 % (11.5-14.5); WHITE BLOOD COUNT 9.2 K/uL (4.8-10.8)
[2016-12-06 11:17] LABS: INR 0.9
[2016-12-06 11:18] LABS: CHLORIDE 104 mmol/L (98-107); POTASSIUM 4.2 mmol/L (3.6-5.2); SODIUM 135 mmol/L (132-148)
--- NOTE | 2016-12-06 11:19 | C.PDOC ---
History Of Present Illness 26 y/o F c PMHx DM, gastroparesis, seizure disorder on Keppra, HTN p/w coffee ground emesis since this morning. Patient reports diffuse but mostly epigastric abdominal pain, consistent with gastroparesis pain during this same time. She denies fever, chills, chest pain, dyspnea, diarrhea, dysuria, vaginal bleeding. Patient was actively seizing at the onset of my evaluation, which stopped spontaneously, and this history was obtained from patient after a period of seizure-free activity and from mother at bedside. Time Seen by Provider: 12/06/16 10:32 Chief Complaint (Nursing): GI Problem Past Medical History Vital Signs: Last Vital Signs Temp 98.3 F 12/06/16 10:38 Pulse 123 H 12/06/16 11:26 Resp 20 12/06/16 11:26 BP 214/130 H 12/06/16 10:38 Pulse Ox 100 12/06/16 11:26 - Medical History PMH: Anemia, Diabetes, HTN, Seizures Denies: Chronic Kidney Disease - [facility] Procedures EXCISION OF STOMACH, ENDO, DIAGN (11/02/16) INSERTION OF INFUSION DEV INTO L SUBCLAV VEIN, PERC APPROACH (10/28/16) INSERTION OF INFUSION DEV INTO SUP VENA CAVA, PERC APPROACH (11/02/16) INTRODUCTION OF NUTRITIONAL INTO PERIPH VEIN, PERC APPROACH (10/16/16) ULTRASONOGRAPHY OF SUPERIOR VENA CAVA, GUIDANCE (10/16/16) Family History: States: Unknown Family Hx - Social History Hx Alcohol Use: No Hx Substance Use: No - Immunization History Hx Tetanus Toxoid Vaccination: No Hx Influenza Vaccination: Yes Hx Pneumococcal Vaccination: Yes Review Of Systems Except As Marked, All Systems Reviewed And Found Negative. Constitutional: Negative for: Fever Cardiovascular: Negative for: Chest Pain Physical Exam - Physical Exam Additional Physical Exam Comments: Tachycardic. Actively vomiting coffee grounds. Convulsions, spontaneously stopping. Epigastric tenderness without guarding. ED Course And Treatment - Laboratory Results Result Diagrams: 12/06/16 11:02 12/06/16 11:02 O2 Sat by Pulse Oximetry: 100 Medical Decision Making Medical Decision Making: Gastric emesis occult blood positive. Will treat patient with Protonix with small dose toradol for pain, IVF, Zofran, multiple IV access. EKG Sinus rhythm, 115 bpm, no ST/T wave changes. IMPRESSION: No focal consolidation, significant pleural effusion, or definite pneumothorax identified. Patient will require admission for upper GI bleed. Disposition Discussed With : Naman Dong Doctor Will See Patient In The: Hospital - Disposition Disposition: HOSPITALIZED Disposition Time: 11:33 Condition: GUARDED Forms: [facility] (Dominican) - Clinical Impression Clinical Impression: Diabetic gastroparesis, Dehydration, Upper GI bleed
--- NOTE | 2016-12-06 11:19 | RAD ---
HISTORY: vomiting COMPARISON: Chest x-ray performed 10/24/16, chest x-ray portion of obstructive series performed 11/02/16 TECHNIQUE: Chest, one view. FINDINGS: Examination limited by habitus and hypoinflation. LUNGS: No focal consolidation. Please note that chest x-ray has limited sensitivity for the detection of pulmonary masses. PLEURA: No significant pleural effusion identified. No definite pneumothorax . CARDIOVASCULAR: The cardiomediastinal silhouette appears within normal limits of size. OSSEOUS STRUCTURES: No acute osseous abnormality identified. VISUALIZED UPPER ABDOMEN: Unremarkable. OTHER FINDINGS: None. IMPRESSION: No focal consolidation, significant pleural effusion, or definite pneumothorax identified.
[2016-12-06 11:20] LABS: AST/SGOT 25 U/L (14-36); BILIRUBIN,TOTAL 0.5 mg/dL (0.2-1.3); CARBON DIOXIDE 20 mmol/L (22-30); GFR AFRICAN-AMERICAN 41
[2016-12-06 11:21] LABS: ALKALINE PHOSPHATASE 107 U/L (38-126); ALT/SGPT 35 U/L (9-52); BLOOD UREA NITROGEN 26 mg/dL (7-17); CALCIUM 8.9 mg/dl (8.6-10.4); GLUCOSE,RANDOM 319 mg/dL (65-105); TOTAL PROTEIN 6.4 g/dL (6.3-8.3)
[2016-12-06] MEDS ORDERED: (Novolin R) Insulin Human Regular 100 units/ml vial IV STA (11:23)
[2016-12-06] MEDS ORDERED: (Novolin R) Insulin Human Regular 100 units/ml vial ONE (11:36)
[2016-12-06] MEDS ORDERED: Sodium Chloride 0.9% 1,000 ML ONE ×2 (11:36→14:23)
--- NOTE | 2016-12-06 13:57 | CP.PCM.HP ---
History of Present Illness - History of Present Illness History of Present Illness: ADMITTED WITH [employer]FFEE GR[employer] EMESIS THIS AM AFTER A BOUT OF VOMITING PT HAS H/O T2DM AND GASTROPARESIS WITH SIMILAR COMPLAINTS IN PAST . PAST H/O HTN/DM/ HYPERCHOLESTEROL Present on Admission - Present on Admission Any Indicators Present on Admission: No Review of Systems - Review of Systems All systems: reviewed and no additional remarkable complaints except (VOMITING) Past Patient History - Infectious Disease Hx of Infectious Diseases: None - Past Medical History & Family History Past Medical History?: Yes - Past Social History Smoking Status: Never Smoked - CARDIAC Hx Hypertension: Yes - PULMONARY Hx Respiratory Disorders: No - NEUROLOGICAL Hx Seizures: Yes - HEENT Hx HEENT Problems: No - RENAL Hx Chronic Kidney Disease: No - ENDOCRINE/METABOLIC Hx Endocrine Disorders: Yes (diabetes) Hx Diabetes Mellitus Type 2: Yes - HEMATOLOGICAL/ONCOLOGICAL Hx Anemia: Yes - INTEGUMENTARY Hx Dermatological Problems: No - MUSCULOSKELETAL/RHEUMATOLOGICAL Hx Musculoskeletal Disorders: No Hx Falls: No - GASTROINTESTINAL Hx Gastrointestinal Disorders: Yes Other/Comment: gastroparesis - GENITOURINARY/GYNECOLOGICAL Hx Genitourinary Disorders: No - PSYCHIATRIC Hx Substance Use: No - SURGICAL HISTORY Hx Surgeries: No - ANESTHESIA Hx Anesthesia: No Hx Anesthesia Reactions: No Hx Malignant Hyperthermia: No Meds Allergies/Adverse Reactions: Allergies Allergy/AdvReac Type Severity Reaction Status Date / Time No Known Allergies Allergy Verified 12/06/16 10:34 Physical Exam - Constitutional Appears: Non-toxic - Eye Exam Eye Exam: EOMI, Normal appearance - ENT Exam ENT Exam: Normal Exam - Respiratory Exam Respiratory Exam: NORMAL BREATHING PATTERN - Cardiovascular Exam Cardiovascular Exam: +S1, +S2 - GI/Abdominal Exam GI & Abdominal Exam: Normal Bowel Sounds, Soft, Tenderness - Extremities Exam Extremities exam: Positive for: full ROM, pedal pulses present. Negative for: calf tenderness Results - Vital Signs Recent Vital Signs: Last Vital Signs Temp 98.3 F 12/06/16 10:38 Pulse 128 H 12/06/16 13:09 Resp 15 12/06/16 13:09 BP 179/109 H 12/06/16 13:09 Pulse Ox 100 12/06/16 13:09 - Labs Result Diagrams: 12/06/16 11:02 12/06/16 11:02 Labs: Laboratory Results - last 24 hr 12/06/16 12:03 POC Glucose (mg/dL) 307 H Assessment & Plan (1) Diabetic gastroparesis Status: Acute Comment: NPO EXP MEDS AND GI EVAL (2) Upper GI bleed Status: Acute Comment: NPO EXP MEDS AND GI EVAL. IV PEPCID (3) Anemia Status: Chronic (4) Diabetes mellitus Status: Chronic (5) Seizure Status: Chronic
[2016-12-06] MEDS: Sodium Chloride 0.45% 1,000 ML IV SCH (14:25)
[2016-12-06] MEDS ORDERED: Sodium Chloride 0.45% 1,000 ML IV ONE (14:27)
[2016-12-06] MEDS: (Novolin R) Insulin Human Regular 100 units/ml vial SC SCH ×2 (19:09→21:59)
[2016-12-07] MEDS: Sodium Chloride 0.45% 1,000 ML IV SCH ×4 (00:26→21:00)
[2016-12-07] MEDS: (Novolin R) Insulin Human Regular 100 units/ml vial SC SCH ×4 (08:18→22:04)
[2016-12-07 11:53] LABS: BASO # 0.1 K/uL (0.0-0.2); BASO % 1.1 % (0.0-2.0); EOS % 0.1 % (0.0-4.0); LYMPH # 2.5 K/uL (1.0-4.3); LYMPH % 23.7 % (20.0-40.0); MEAN CELL VOLUME 87.2 fL (81.0-99.0); MEAN CORPUSCULAR HEMOGLOBIN 27.6 pg (27.0-31.0); MEAN CORPUSCULAR HGB CONC 31.7 g/dL (33.0-37.0); MEAN PLATELET VOLUME 9.1 fL (7.2-11.7); MONO # 0.9 K/uL (0.0-0.8); MONO % 8.6 % (0.0-10.0); RED CELL DISTRIBUTION WIDTH 15.1 % (11.5-14.5); WHITE BLOOD COUNT 10.6 K/uL (4.8-10.8)
[2016-12-07 12:05] LABS: POTASSIUM 4.4 mmol/L (3.6-5.2)
[2016-12-07 12:08] LABS: ALB/GLOB RATIO 0.9 (1.0-2.1); BILIRUBIN,TOTAL 0.4 mg/dL (0.2-1.3); TOTAL PROTEIN 5.9 g/dL (6.3-8.3)
[2016-12-07] MEDS: POLYETHYLENE GLYCOL 3350 17 GM/Dose PACKET PO SCH (13:13)
[2016-12-07] MEDS: Pantoprazole 40 mg EC Tab PO SCH (13:13)
--- NOTE | 2016-12-07 13:15 | CP.PCM.CON ---
<Kia Harris - Last Filed: 12/07/16 13:21> History of Present Illness - History of Present Illness History of Present Illness: Gastroenterology Fellow/PGY5 Consult Note 26 year old female with history of seizure disorder, Hypertension, Hyperlipidemia, constipation, and uncontrolled Type 1 Diabetes complicated by Gastroparesis presenting with vomiting and abdominal pain. Patient notes having seizure activity leading to ER presentation with confirmed low glucose and multiple dark brown vomitus episodes with associated upper abdominal pain. She notes additional seizure activity in the ER. 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 Denies hematemesis, diarrhea, constipation, melena, hematochezia, heartburn, or indigestion. Since admission, no further vomiting or seizure activity. Prior EGD 10/2016 showed LAGC esophagitis and gastritis, no H. pylori. No prior colonoscopy. Family- denies stomach cancer, colon cancer Social- denies tobacco, alcohol, illicit dug use Surgery- none Review of Systems - Review of Systems Review of Systems: 12-point review of systems negative except for as above Past Patient History - Infectious Disease Hx of Infectious Diseases: None - Past Medical History & Family History Past Medical History?: Yes - Past Social History Smoking Status: Former Smoker - CARDIAC Hx Hypertension: Yes - PULMONARY Hx Respiratory Disorders: No - NEUROLOGICAL Hx Neurological Disorder: Yes Hx Seizures: Yes - HEENT Hx HEENT Problems: Yes Other/Comment: blurred vision both eyes uses eyeglasses - RENAL Hx Chronic Kidney Disease: No - ENDOCRINE/METABOLIC Hx Endocrine Disorders: Yes (diabetes) Hx Diabetes Mellitus Type 2: Yes - HEMATOLOGICAL/ONCOLOGICAL Hx Blood Disorders: Yes Hx Anemia: Yes - INTEGUMENTARY Hx Dermatological Problems: No - MUSCULOSKELETAL/RHEUMATOLOGICAL Hx Musculoskeletal Disorders: Yes Hx Falls: Yes - GASTROINTESTINAL Hx Gastrointestinal Disorders: Yes Other/Comment: gastroparesis - GENITOURINARY/GYNECOLOGICAL Hx Genitourinary Disorders: No - PSYCHIATRIC Hx Psychophysiologic Disorder: Yes Hx Anxiety: Yes Hx Depression: Yes Hx Substance Use: No - SURGICAL HISTORY Hx Surgeries: No - ANESTHESIA Hx Anesthesia: No Hx Anesthesia Reactions: No Hx Malignant Hyperthermia: No Has any member of the family had a problem w/ anesthesia?: No Meds Allergies/Adverse Reactions: Allergies Allergy/AdvReac Type Severity Reaction Status Date / Time No Known Allergies Allergy Verified 12/06/16 10:34 - Medications Medications: Current Medications Sodium Chloride (Sodium Chloride 0.45%) 1,000 mls @ 100 mls/hr IV .Q10H [facility] Last Admin: 12/07/16 10:54 Dose: Not Given Levetiracetam 750 mg/ Sodium (Chloride) 107.5 mls @ 420 mls/hr IVPB Q12H [facility] Last Admin: 12/07/16 08:17 Dose: 420 mls/hr Insulin Human Regular (Novolin R) 0 unit SC ACHS [facility] PRN Reason: Protocol Last Admin: 12/07/16 12:20 Dose: 4 unit Lamotrigine (Lamictal) 25 mg PO BID [facility] Last Admin: 12/07/16 10:11 Dose: 25 mg Lisinopril (Zestril) 20 mg PO DAILY [facility] Last Admin: 12/07/16 10:11 Dose: 20 mg Lorazepam (Ativan) 1 mg IVP Q4 PRN PRN Reason: seizures Last Admin: 12/07/16 11:07 Dose: 1 mg Metoclopramide HCl (Reglan) 5 mg IVP Q8 [facility] Last Admin: 12/07/16 05:24 Dose: 5 mg Ondansetron HCl (Zofran Inj) 4 mg IVP Q6H PRN PRN Reason: Nausea/Vomiting Last Admin: 12/06/16 16:45 Dose: 4 mg Pantoprazole Sodium (Protonix Ec Tab) 40 mg PO ACB [facility] Polyethylene Glycol (Miralax) 17 gm PO DAILY [facility] Physical Exam - Constitutional Appears: Non-toxic, No Acute Distress - Head Exam Head Exam: ATRAUMATIC, NORMOCEPHALIC - Eye Exam Eye Exam: EOMI, PERRL Pupil Exam: PERRL. absent: Miosis, Mydriatic - ENT Exam ENT Exam: Mucous Membranes Dry, Normal Oropharynx - Neck Exam Neck exam: Positive for: Full Rom, Normal Inspection - Respiratory Exam Respiratory Exam: Clear to Auscultation Bilateral. absent: Rales, Rhonchi, Wheezes - Cardiovascular Exam Cardiovascular Exam: RRR, +S1, +S2. absent: Gallop, Rubs - GI/Abdominal Exam GI & Abdominal Exam: Normal Bowel Sounds, Soft, Tenderness. absent: Distended, Firm, Guarding, Organomegaly, Rebound, Rigid Additional comments: mild upper quadrant discomfort to palpation - Extremities Exam Extremities exam: Positive for: normal inspection, pedal edema - Neurological Exam Neurological exam: Alert - Psychiatric Exam Psychiatric exam: Normal Affect, Normal Mood - Skin Skin Exam: Dry, Intact, Normal Color, Warm Results - Vital Signs Recent Vital Signs: Last Vital Signs Temp 98.2 F 12/07/16 08:26 Pulse 90 12/07/16 08:26 Resp 20 12/07/16 08:26 BP 153/93 H 12/07/16 08:26 Pulse Ox 100 12/07/16 08:26 - Labs Result Diagrams: 12/07/16 11:41 12/07/16 11:41 Labs: Laboratory Results - last 24 hr 12/06/16 12/06/16 12/06/16 14:53 17:41 21:15 WBC RBC Hgb Hct MCV MCH MCHC RDW Plt Count MPV Neut % (Auto) Lymph % (Auto) [place] % (Auto) Eos % (Auto) Baso % (Auto) Neut # Lymph # [place] # Eos # Baso # Sodium Potassium Chloride Carbon Dioxide Anion Gap BUN Creatinine Est GFR ( Amer) Est GFR (Non-Af Amer) POC Glucose (mg/dL) 213 H 298 H 422 H* Random Glucose Calcium Total Bilirubin AST ALT Alkaline Phosphatase Total Protein Albumin Globulin Albumin/Globulin Ratio 12/07/16 12/07/16 12/07/16 06:39 11:41 11:41 WBC 10.6 RBC 3.56 L Hgb 9.8 L Hct 31.0 L MCV 87.2 MCH 27.6 MCHC 31.7 L RDW 15.1 H Plt Count 420 H MPV 9.1 Neut % (Auto) 66.5 Lymph % (Auto) 23.7 [place] % (Auto) 8.6 Eos % (Auto) 0.1 Baso % (Auto) 1.1 Neut # 7.0 Lymph # 2.5 [place] # 0.9 H Eos # 0.0 Baso # 0.1 Sodium 140 Potassium 4.4 Chloride 106 Carbon Dioxide 22 Anion Gap 17 BUN 34 H Creatinine 2.1 H Est GFR ( Amer) 34 Est GFR (Non-Af Amer) 28 POC Glucose (mg/dL) 261 H Random Glucose 193 H Calcium 9.0 Total Bilirubin 0.4 AST 22 ALT 26 Alkaline Phosphatase 84 Total Protein 5.9 L Albumin 2.8 L Globulin 3.1 Albumin/Globulin Ratio 0.9 L 08/20/17 11:43 WBC RBC Hgb Hct MCV MCH MCHC RDW Plt Count MPV Neut % (Auto) Lymph % (Auto) [place] % (Auto) Eos % (Auto) Baso % (Auto) Neut # Lymph # [place] # Eos # Baso # Sodium Potassium Chloride Carbon Dioxide Anion Gap BUN Creatinine Est GFR ( Amer) Est GFR (Non-Af Amer) POC Glucose (mg/dL) 297 H Random Glucose Calcium Total Bilirubin AST ALT Alkaline Phosphatase Total Protein Albumin Globulin Albumin/Globulin Ratio Assessment & Plan - Assessment and Plan (Free Text) Assessment: 26 year old female with history of seizure disorder, Hypertension, Hyperlipidemia, constipation, and uncontrolled Type 1 Diabetes complicated by Gastroparesis presenting with vomiting and abdominal pain. Active treatment of intractable vomiting, breakthrough seizures and uncontrolled diabetes. Prior EGD 10/2016 showed LAGC esophagitis and gastritis, no H. pylori. No prior colonoscopy. Plan: >vomiting resolved, likely 2/2 Gastroparesis, uncontrolled diabetes >continue Reglan Q8H and zofran PRN >PPI ACB >clear liquid diet as tolerated >notes recent emptying study at [facility] [place] 10/2016 (unknown results)- obtain records >improve glycemic control >recommend endocrine evaluation >Miralax daily >medicine team managing anticonvulsants >underlying kidney disease in setting of uncontrolled diabetes and Hypertension >prior U/S 10/2016- possible left hydronephhrosis >recommend nephrology evaluation >keep endorsed aircraft tool maker appointment 12/31/16 and GI follow up with in 6 weeks >will follow clinical course <Miguelina Mesa MD - Last Filed: 12/07/16 16:44> Meds - Medications Medications: Current Medications Sodium Chloride (Sodium Chloride 0.45%) 1,000 mls @ 100 mls/hr IV .Q10H [facility] Last Admin: 12/07/16 13:37 Dose: 100 mls/hr Levetiracetam 750 mg/ Sodium (Chloride) 107.5 mls @ 420 mls/hr IVPB Q12H [facility] Last Admin: 12/07/16 08:17 Dose: 420 mls/hr Insulin Human Regular (Novolin R) 0 unit SC ACHS [facility] PRN Reason: Protocol Last Admin: 12/07/16 12:20 Dose: 4 unit Lamotrigine (Lamictal) 25 mg PO BID [facility] Last Admin: 12/07/16 10:11 Dose: 25 mg Lisinopril (Zestril) 20 mg PO DAILY [facility] Last Admin: 12/07/16 10:11 Dose: 20 mg Lorazepam (Ativan) 1 mg IVP Q4 PRN PRN Reason: seizures Last Admin: 12/07/16 11:07 Dose: 1 mg Metoclopramide HCl (Reglan) 5 mg IVP Q8 [facility] Last Admin: 12/07/16 13:13 Dose: 5 mg Ondansetron HCl (Zofran Inj) 4 mg IVP Q6H PRN PRN Reason: Nausea/Vomiting Last Admin: 12/06/16 16:45 Dose: 4 mg Pantoprazole Sodium (Protonix Ec Tab) 40 mg PO ACB [facility] Last Admin: 12/07/16 13:13 Dose: 40 mg Polyethylene Glycol (Miralax) 17 gm PO DAILY [facility] Last Admin: 12/07/16 13:13 Dose: 17 gm Results - Vital Signs Recent Vital Signs: Last Vital Signs Temp 98.2 F 12/07/16 08:26 Pulse 90 12/07/16 08:26 Resp 20 12/07/16 08:26 BP 153/93 H 12/07/16 08:26 Pulse Ox 100 12/07/16 08:26 - Labs Result Diagrams: 12/07/16 11:41 12/07/16 11:41 Labs: Laboratory Results - last 24 hr 12/06/16 12/06/16 12/07/16 17:41 21:15 06:39 WBC RBC Hgb Hct MCV MCH MCHC RDW Plt Count MPV Neut % (Auto) Lymph % (Auto) [place] % (Auto) Eos % (Auto) Baso % (Auto) Neut # Lymph # [place] # Eos # Baso # Sodium Potassium Chloride Carbon Dioxide Anion Gap BUN Creatinine Est GFR ( Amer) Est GFR (Non-Af Amer) POC Glucose (mg/dL) 298 H 422 H* 261 H Random Glucose Calcium Total Bilirubin AST ALT Alkaline Phosphatase Total Protein Albumin Globulin Albumin/Globulin Ratio 12/07/16 12/07/16 12/07/16 11:41 11:41 11:43 WBC 10.6 RBC 3.56 L Hgb 9.8 L Hct 31.0 L MCV 87.2 MCH 27.6 MCHC 31.7 L RDW 15.1 H Plt Count 420 H MPV 9.1 Neut % (Auto) 66.5 Lymph % (Auto) 23.7 [place] % (Auto) 8.6 Eos % (Auto) 0.1 Baso % (Auto) 1.1 Neut # 7.0 Lymph # 2.5 [place] # 0.9 H Eos # 0.0 Baso # 0.1 Sodium 140 Potassium 4.4 Chloride 106 Carbon Dioxide 22 Anion Gap 17 BUN 34 H Creatinine 2.1 H Est GFR ( Amer) 34 Est GFR (Non-Af Amer) 28 POC Glucose (mg/dL) 297 H Random Glucose 193 H Calcium 9.0 Total Bilirubin 0.4 AST 22 ALT 26 Alkaline Phosphatase 84 Total Protein 5.9 L Albumin 2.8 L Globulin 3.1 Albumin/Globulin Ratio 0.9 L Attending/Attestation - Attestation I have personally seen and examined this patient.: Yes I have fully participated in the care of the patient.: Yes I have reviewed all pertinent clinical information: Yes Notes (Text): 12/07/16 16:33 This is a 26 yr old F admitted with nausea, vomiting, abdominal pain and seizure insetting of uncontrolled DM and gastroparesis. Gastric emptying study done in September with her primary GI as outpatient but she does not have results yet. Patient states she has not followed with aircraft tool maker in 3 years and not seen a neurologist. She has poor outpatient follow up and only has inpatient hospitalizations. Also suffers from chronic constipation for which she does not take stool softeners or laxatives. Will continue metoclopramide and do aggressive bowel regimen. Strict glycemic control and outpatient follow up with primary GI. Small frequent meals.
--- NOTE | 2016-12-07 15:10 | CP.PCM.PN ---
Subjective - Date & Time of Evaluation Date of Evaluation: 12/07/16 Time of Evaluation: 15:07 - Subjective Subjective: CHIEF COMPLAINTS TODAY : LAST PM HAD SZ TREATED WITH [facility] NEURO/GI ON BOARD LESS VOMITING ROS. HEENT : N. Resp : No cough, wheezing ,pleuritic CP ,or hemoptysis Cardio : No anginal CP, PND, orthopnea, palpitation GI : POS abd.pain, n/v , NO diarrhea or GI bleeding . SECURITY EXPERT : No headache, vertigo, focal deficit. Musculoskel : No joint swelling , Derm : No rash Psych : Normal affect. Ext : No swelling ,calf pain PE. Pt. is alert awake in no distress. V.S As noted in the chart Head ,ear nose,throat and eyes : Normal. Neck : Supple with normal carotids. Lungs: Clear air entry. Heart : S1 & S2 normal with S4. No murmur. Abd : Soft non tender with normal bowel sounds. Neuro : Moves all ext. with no localized deficit. Ext : No edema with intact pulses.Non tender calves Derm : No rashes or decubitus ulcer. LABS/RADIOLOGY: ASSESSMENT/PLAN : CONT. ZOFRAN AND REGLAN RECURRENT REFLUX ESOPHAGITIS Objective - Vital Signs/Intake and Output Vital Signs (last 24 hours): Temp Pulse Resp BP Pulse Ox 98.2 F 90 20 153/93 H 100 12/07/16 08:26 12/07/16 08:26 12/07/16 08:26 12/07/16 08:26 12/07/16 08:26 Intake and Output: 12/07/16 12/07/16 11:59 23:59 Intake Total 800 1280 Balance 800 1280 - Medications Medications: Current Medications Sodium Chloride (Sodium Chloride 0.45%) 1,000 mls @ 100 mls/hr IV .Q10H [facility] Last Admin: 12/07/16 13:37 Dose: 100 mls/hr Levetiracetam 750 mg/ Sodium (Chloride) 107.5 mls @ 420 mls/hr IVPB Q12H [facility] Last Admin: 12/07/16 08:17 Dose: 420 mls/hr Insulin Human Regular (Novolin R) 0 unit SC ACHS [facility] PRN Reason: Protocol Last Admin: 12/07/16 12:20 Dose: 4 unit Lamotrigine (Lamictal) 25 mg PO BID [facility] Last Admin: 12/07/16 10:11 Dose: 25 mg Lisinopril (Zestril) 20 mg PO DAILY [facility] Last Admin: 12/07/16 10:11 Dose: 20 mg Lorazepam (Ativan) 1 mg IVP Q4 PRN PRN Reason: seizures Last Admin: 12/07/16 11:07 Dose: 1 mg Metoclopramide HCl (Reglan) 5 mg IVP Q8 [facility] Last Admin: 12/07/16 13:13 Dose: 5 mg Ondansetron HCl (Zofran Inj) 4 mg IVP Q6H PRN PRN Reason: Nausea/Vomiting Last Admin: 12/06/16 16:45 Dose: 4 mg Pantoprazole Sodium (Protonix Ec Tab) 40 mg PO ACB [facility] Last Admin: 12/07/16 13:13 Dose: 40 mg Polyethylene Glycol (Miralax) 17 gm PO DAILY [facility] Last Admin: 12/07/16 13:13 Dose: 17 gm - Labs Labs: 12/07/16 11:41 12/07/16 11:41 PT 9.7 SECONDS (9.7-12.2) 12/06/16 11:02 INR 0.9 12/06/16 11:02 APTT 24 SECONDS (21-34) 12/06/16 11:02 Assessment and Plan (1) Diabetic gastroparesis Status: Acute (2) Upper GI bleed Status: Acute (3) Anemia Status: Chronic (4) Diabetes mellitus Status: Chronic (5) Seizure Status: Chronic
--- NOTE | 2016-12-07 16:40 | CP.PCM.CON ---
History of Present Illness - History of Present Illness History of Present Illness: Ms. Larry is a 26-year-old woman who is on Keppra and Lamictal for seizure disorder; however, her last seizure was when she was at her physicians office two weeks ago and her serum glucose was 22. She denied having seizures with normal glucose levels. She was quite somnolent when I saw her, but she was able to become alert and followed commands normally without difficulty. She did not have any complaints. She is currently admitted for GI bleed and was NPO. I was consulted to assist with converting her PO AEDs to IV. She was started on Keppra 750 mg Q12, but this may be causing her to be drowsy. Review of Systems - Review of Systems All systems: reviewed and no additional remarkable complaints except Past Patient History - Infectious Disease Hx of Infectious Diseases: None - Past Medical History & Family History Past Medical History?: Yes - Past Social History Smoking Status: Former Smoker - CARDIAC Hx Hypertension: Yes - PULMONARY Hx Respiratory Disorders: No - NEUROLOGICAL Hx Neurological Disorder: Yes Hx Seizures: Yes - HEENT Hx HEENT Problems: Yes Other/Comment: blurred vision both eyes uses eyeglasses - RENAL Hx Chronic Kidney Disease: No - ENDOCRINE/METABOLIC Hx Endocrine Disorders: Yes (diabetes) Hx Diabetes Mellitus Type 2: Yes - HEMATOLOGICAL/ONCOLOGICAL Hx Blood Disorders: Yes Hx Anemia: Yes - INTEGUMENTARY Hx Dermatological Problems: No - MUSCULOSKELETAL/RHEUMATOLOGICAL Hx Musculoskeletal Disorders: Yes Hx Falls: Yes - GASTROINTESTINAL Hx Gastrointestinal Disorders: Yes Other/Comment: gastroparesis - GENITOURINARY/GYNECOLOGICAL Hx Genitourinary Disorders: No - PSYCHIATRIC Hx Psychophysiologic Disorder: Yes Hx Anxiety: Yes Hx Depression: Yes Hx Substance Use: No - SURGICAL HISTORY Hx Surgeries: No - ANESTHESIA Hx Anesthesia: No Hx Anesthesia Reactions: No Hx Malignant Hyperthermia: No Has any member of the family had a problem w/ anesthesia?: No Meds Allergies/Adverse Reactions: Allergies Allergy/AdvReac Type Severity Reaction Status Date / Time No Known Allergies Allergy Verified 12/06/16 10:34 - Medications Medications: Current Medications Sodium Chloride (Sodium Chloride 0.45%) 1,000 mls @ 100 mls/hr IV .Q10H [facility] Last Admin: 12/07/16 13:37 Dose: 100 mls/hr Levetiracetam 750 mg/ Sodium (Chloride) 107.5 mls @ 420 mls/hr IVPB Q12H [facility] Last Admin: 12/07/16 08:17 Dose: 420 mls/hr Insulin Human Regular (Novolin R) 0 unit SC ACHS [facility] PRN Reason: Protocol Last Admin: 12/07/16 12:20 Dose: 4 unit Lamotrigine (Lamictal) 25 mg PO BID [facility] Last Admin: 12/07/16 10:11 Dose: 25 mg Lisinopril (Zestril) 20 mg PO DAILY [facility] Last Admin: 12/07/16 10:11 Dose: 20 mg Lorazepam (Ativan) 1 mg IVP Q4 PRN PRN Reason: seizures Last Admin: 12/07/16 11:07 Dose: 1 mg Metoclopramide HCl (Reglan) 5 mg IVP Q8 [facility] Last Admin: 12/07/16 13:13 Dose: 5 mg Ondansetron HCl (Zofran Inj) 4 mg IVP Q6H PRN PRN Reason: Nausea/Vomiting Last Admin: 12/06/16 16:45 Dose: 4 mg Pantoprazole Sodium (Protonix Ec Tab) 40 mg PO ACB [facility] Last Admin: 12/07/16 13:13 Dose: 40 mg Polyethylene Glycol (Miralax) 17 gm PO DAILY [facility] Last Admin: 12/07/16 13:13 Dose: 17 gm Physical Exam - Constitutional Appears: Well - Head Exam Head Exam: ATRAUMATIC, NORMAL INSPECTION, NORMOCEPHALIC - Eye Exam Eye Exam: EOMI, Normal appearance, PERRL - ENT Exam ENT Exam: Mucous Membranes Moist, Normal Exam - Neck Exam Neck exam: Positive for: Normal Inspection - Respiratory Exam Respiratory Exam: Clear to Auscultation Bilateral, NORMAL BREATHING PATTERN - Cardiovascular Exam Cardiovascular Exam: REGULAR RHYTHM, +S1, +S2 - GI/Abdominal Exam GI & Abdominal Exam: Normal Bowel Sounds - Rectal Exam Rectal Exam: Deferred - Extremities Exam Extremities exam: Positive for: normal inspection - Back Exam Back exam: NORMAL INSPECTION - Neurological Exam Neurological exam: Alert, CN II-XII Intact, Normal Gait, Oriented x3, Reflexes Normal - Psychiatric Exam Psychiatric exam: Normal Affect, Normal Mood - Skin Skin Exam: Dry, Intact, Normal Color, Warm Results - Vital Signs Recent Vital Signs: Last Vital Signs Temp 98.2 F 12/07/16 08:26 Pulse 90 12/07/16 08:26 Resp 20 12/07/16 08:26 BP 153/93 H 12/07/16 08:26 Pulse Ox 100 12/07/16 08:26 - Labs Result Diagrams: 12/07/16 11:41 12/07/16 11:41 Labs: Laboratory Results - last 24 hr 12/06/16 12/06/16 12/07/16 17:41 21:15 06:39 WBC RBC Hgb Hct MCV MCH MCHC RDW Plt Count MPV Neut % (Auto) Lymph % (Auto) [place] % (Auto) Eos % (Auto) Baso % (Auto) Neut # Lymph # [place] # Eos # Baso # Sodium Potassium Chloride Carbon Dioxide Anion Gap BUN Creatinine Est GFR ( Amer) Est GFR (Non-Af Amer) POC Glucose (mg/dL) 298 H 422 H* 261 H Random Glucose Calcium Total Bilirubin AST ALT Alkaline Phosphatase Total Protein Albumin Globulin Albumin/Globulin Ratio 12/07/16 12/07/16 12/07/16 11:41 11:41 11:43 WBC 10.6 RBC 3.56 L Hgb 9.8 L Hct 31.0 L MCV 87.2 MCH 27.6 MCHC 31.7 L RDW 15.1 H Plt Count 420 H MPV 9.1 Neut % (Auto) 66.5 Lymph % (Auto) 23.7 [place] % (Auto) 8.6 Eos % (Auto) 0.1 Baso % (Auto) 1.1 Neut # 7.0 Lymph # 2.5 [place] # 0.9 H Eos # 0.0 Baso # 0.1 Sodium 140 Potassium 4.4 Chloride 106 Carbon Dioxide 22 Anion Gap 17 BUN 34 H Creatinine 2.1 H Est GFR ( Amer) 34 Est GFR (Non-Af Amer) 28 POC Glucose (mg/dL) 297 H Random Glucose 193 H Calcium 9.0 Total Bilirubin 0.4 AST 22 ALT 26 Alkaline Phosphatase 84 Total Protein 5.9 L Albumin 2.8 L Globulin 3.1 Albumin/Globulin Ratio 0.9 L Assessment & Plan - Assessment and Plan (Free Text) Assessment: History of seizure disorder. Plan: This should be worked up with an EEG and MRI with neurology as an outpatient since it possible that these seizures were due to hypoglycemia. I recommend decreasing Keppra to 500 mg IV Q12. Continue conservative management per primary team. No further recommendations.
[2016-12-07] MEDS: levETIRAcetam 500 MG in Sodium Chloride 0.9% 100 ML IVPB SCH (19:01)
[2016-12-07 20:47] LABS: RBC URINE 4 /hpf (0-3); URINE BILIRUBIN NEGATIVE (NEGATIVE); URINE BLOOD NEGATIVE (NEGATIVE); URINE COLOR Straw (YELLOW); URINE GLUCOSE (UA) 3+ mg/dL (Normal); URINE KETONE NEGATIVE (NEGATIVE); URINE LEUKOCYTE ESTERASE NEG Leu/uL (Negative); URINE PROTEIN 3+ mg/dL (NEGATIVE); URINE UROBILINOGEN NORMAL mg/dL (0.2-1.0); WBC URINE 2 /hpf (0-5)
[2016-12-08] MEDS: Sodium Chloride 0.45% 1,000 ML IV SCH ×4 (00:39→16:07)
[2016-12-08] MEDS: levETIRAcetam 500 MG in Sodium Chloride 0.9% 100 ML IVPB SCH ×2 (03:48→16:05)
[2016-12-08] MEDS: Pantoprazole 40 mg EC Tab PO SCH (06:37)
[2016-12-08] MEDS: (Novolin R) Insulin Human Regular 100 units/ml vial SC SCH ×3 (08:12→17:17)
[2016-12-08] MEDS: POLYETHYLENE GLYCOL 3350 17 GM/Dose PACKET PO SCH (09:01)
--- NOTE | 2016-12-08 09:08 | CP.PCM.PN ---
<Oracio Meek - Last Filed: 12/08/16 13:29> Subjective - Date & Time of Evaluation Date of Evaluation: 12/08/16 Time of Evaluation: 07:30 - Subjective Subjective: PGY5 GI Fellow Progress Note Patient seen and examined bedside this morning. The patient states that she is feeling better since admission and is tolerating liquid diet without issue today and last night. Eager to eat a little more substantial food. Admits to some epigastric tenderness, burning sensation. Passed small BM last night. 12 system ROS performed and negative except where stated. Objective - Vital Signs/Intake and Output Vital Signs (last 24 hours): Temp Pulse Resp BP Pulse Ox 98.4 F 90 20 162/95 H 96 12/08/16 08:15 12/08/16 08:15 12/08/16 08:15 12/08/16 08:15 12/08/16 08:15 Intake and Output: 12/08/16 12/08/16 06:59 18:59 Intake Total 250 850 Balance 250 850 - Medications Medications: Current Medications Sodium Chloride (Sodium Chloride 0.45%) 1,000 mls @ 100 mls/hr IV .Q10H [facility] Last Admin: 12/08/16 06:00 Dose: Not Given Levetiracetam 500 mg/ Sodium (Chloride) 105 mls @ 420 mls/hr IVPB Q12H [facility] Last Admin: 12/08/16 03:48 Dose: 420 mls/hr Insulin Human Regular (Novolin R) 0 unit SC ACHS [facility] PRN Reason: Protocol Last Admin: 12/08/16 08:12 Dose: 8 unit Lamotrigine (Lamictal) 25 mg PO BID [facility] Last Admin: 12/08/16 09:02 Dose: 25 mg Lisinopril (Zestril) 20 mg PO DAILY [facility] Last Admin: 12/08/16 09:02 Dose: 20 mg Lorazepam (Ativan) 1 mg IVP Q4 PRN PRN Reason: seizures Last Admin: 12/08/16 08:52 Dose: 1 mg Metoclopramide HCl (Reglan) 5 mg IVP Q8 [facility] Last Admin: 12/08/16 06:38 Dose: 5 mg Ondansetron HCl (Zofran Inj) 4 mg IVP Q6H PRN PRN Reason: Nausea/Vomiting Last Admin: 12/08/16 03:45 Dose: 4 mg Pantoprazole Sodium (Protonix Ec Tab) 40 mg PO ACB [facility] Last Admin: 12/08/16 06:37 Dose: 40 mg Polyethylene Glycol (Miralax) 17 gm PO DAILY [facility] Last Admin: 12/08/16 09:01 Dose: 17 gm - Labs Labs: 12/07/16 11:41 12/07/16 11:41 PT 9.7 SECONDS (9.7-12.2) 12/06/16 11:02 INR 0.9 12/06/16 11:02 APTT 24 SECONDS (21-34) 12/06/16 11:02 - Constitutional Appears: Non-toxic, No Acute Distress - Eye Exam Eye Exam: EOMI, PERRL - ENT Exam ENT Exam: Mucous Membranes Moist - Respiratory Exam Respiratory Exam: Clear to Ausculation Bilateral. absent: Rales, Rhonchi, Wheezes - Cardiovascular Exam Cardiovascular Exam: RRR, +S1, +S2 - GI/Abdominal Exam GI & Abdominal Exam: Soft, Tenderness (epigastric), Normal Bowel Sounds. absent : Distended, Firm, Guarding, Rigid, Organomegaly - Extremities Exam Extremities Exam: Normal Inspection. absent: Pedal Edema - Neurological Exam Neurological Exam: Alert, Awake, Oriented x3 - Psychiatric Exam Psychiatric exam: Normal Affect, Normal Mood - Skin Skin Exam: Dry, Warm Assessment and Plan - Assessment and Plan (Free Text) Assessment: Patient is a 26yo female with PMHx significant for seizure disorder, HTN, HLD, uncontrolled DMT1, constipation who presented to the ED with nausea, vomiting and abdominal pain. -Suspect exacerbation of gastroparesis 2/2 poorly controlled DMT1 -Constipation -Seizure d/o Plan: -Tight glycemic control -Patient nonadherent to outpatient regimens/follow up -Follow up results of gastric emptying study at [facility]SH ([facility] [place]) -Miralax 17g PO QD, titrate to 1-2 BM/day -Advance to full liquid diet; goal of 6 small meals/day which can be advanced today if tolerating full liquids -Antiemetics as ordered, PRN -Will sign off. Thank you for allowing us to participate in the care of your patient. <Miguelina Mesa MD - Last Filed: 12/08/16 15:24> Objective - Vital Signs/Intake and Output Vital Signs (last 24 hours): Temp Pulse Resp BP Pulse Ox 97.6 F 70 20 130/82 95 12/08/16 12:19 12/08/16 12:19 12/08/16 12:19 12/08/16 12:19 12/08/16 12:19 Intake and Output: 12/08/16 12/08/16 06:59 18:59 Intake Total 250 850 Balance 250 850 - Medications Medications: Current Medications Sodium Chloride (Sodium Chloride 0.45%) 1,000 mls @ 100 mls/hr IV .Q10H [facility] Last Admin: 12/08/16 14:37 Dose: 100 mls/hr Levetiracetam 500 mg/ Sodium (Chloride) 105 mls @ 420 mls/hr IVPB Q12H [facility] Last Admin: 12/08/16 03:48 Dose: 420 mls/hr Insulin Human Regular (Novolin R) 0 unit SC ACHS [facility] PRN Reason: Protocol Last Admin: 12/08/16 12:59 Dose: 3 unit Lamotrigine (Lamictal) 25 mg PO BID [facility] Last Admin: 12/08/16 09:02 Dose: 25 mg Lisinopril (Zestril) 20 mg PO DAILY [facility] Last Admin: 12/08/16 09:02 Dose: 20 mg Lorazepam (Ativan) 1 mg IVP Q4 PRN PRN Reason: seizures Last Admin: 12/08/16 08:52 Dose: 1 mg Metoclopramide HCl (Reglan) 5 mg IVP Q8 [facility] Last Admin: 12/08/16 14:34 Dose: 5 mg Ondansetron HCl (Zofran Inj) 4 mg IVP Q6H PRN PRN Reason: Nausea/Vomiting Last Admin: 12/08/16 03:45 Dose: 4 mg Pantoprazole Sodium (Protonix Ec Tab) 40 mg PO ACB [facility] Last Admin: 12/08/16 06:37 Dose: 40 mg Polyethylene Glycol (Miralax) 17 gm PO DAILY [facility] Last Admin: 12/08/16 09:01 Dose: 17 gm - Labs Labs: 12/07/16 11:41 12/07/16 11:41 PT 9.7 SECONDS (9.7-12.2) 12/06/16 11:02 INR 0.9 12/06/16 11:02 APTT 24 SECONDS (21-34) 12/06/16 11:02 Attending/Attestation - Attestation I have personally seen and examined this patient.: Yes I have fully participated in the care of the patient.: Yes I have reviewed all pertinent clinical information, including history, physical exam and plan: Yes Notes (Text): 12/08/16 15:20 Patient seen with GI fellow. This is a 26 yr old F admitted with nausea, vomiting, abdominal pain and seizure in setting of uncontrolled DM and gastroparesis now resolved. Gastric emptying study done in September with her primary GI as outpatient but she does not have results yet. 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 She has poor outpatient follow up and only has inpatient hospitalizations. Also suffers from chronic constipation for which she does not take stool softeners or laxatives. Will continue metoclopramide and do aggressive bowel regimen. Strict glycemic control and outpatient follow up with primary GI. Small frequent meals. Thank you for letting us participate in the care of your patient
--- NOTE | 2016-12-08 12:27 | CARD ---
APPROVED REPORT EKG Measurement Heart [id number] <Conclusion> Poor data quality, interpretation may be adversely affected Sinus tachycardia with occasional premature ventricular complexes Otherwise normal ECG
--- NOTE | 2016-12-08 13:37 | CP.PCM.PN ---
Subjective - Date & Time of Evaluation Date of Evaluation: 12/08/16 Time of Evaluation: 13:36 - Subjective Subjective: FEELING BETTER NO N/V PER GI Objective - Vital Signs/Intake and Output Vital Signs (last 24 hours): Temp Pulse Resp BP Pulse Ox 97.6 F 70 20 130/82 95 12/08/16 12:19 12/08/16 12:19 12/08/16 12:19 12/08/16 12:19 12/08/16 12:19 Intake and Output: 12/08/16 12/08/16 11:59 23:59 Intake Total 850 Balance 850 - Medications Medications: Current Medications Sodium Chloride (Sodium Chloride 0.45%) 1,000 mls @ 100 mls/hr IV .Q10H [facility] Last Admin: 12/08/16 06:00 Dose: Not Given Levetiracetam 500 mg/ Sodium (Chloride) 105 mls @ 420 mls/hr IVPB Q12H [facility] Last Admin: 12/08/16 03:48 Dose: 420 mls/hr Insulin Human Regular (Novolin R) 0 unit SC ACHS [facility] PRN Reason: Protocol Last Admin: 12/08/16 12:59 Dose: 3 unit Lamotrigine (Lamictal) 25 mg PO BID [facility] Last Admin: 12/08/16 09:02 Dose: 25 mg Lisinopril (Zestril) 20 mg PO DAILY [facility] Last Admin: 12/08/16 09:02 Dose: 20 mg Lorazepam (Ativan) 1 mg IVP Q4 PRN PRN Reason: seizures Last Admin: 12/08/16 08:52 Dose: 1 mg Metoclopramide HCl (Reglan) 5 mg IVP Q8 [facility] Last Admin: 12/08/16 06:38 Dose: 5 mg Ondansetron HCl (Zofran Inj) 4 mg IVP Q6H PRN PRN Reason: Nausea/Vomiting Last Admin: 12/08/16 03:45 Dose: 4 mg Pantoprazole Sodium (Protonix Ec Tab) 40 mg PO ACB [facility] Last Admin: 12/08/16 06:37 Dose: 40 mg Polyethylene Glycol (Miralax) 17 gm PO DAILY [facility] Last Admin: 12/08/16 09:01 Dose: 17 gm - Labs Labs: 12/07/16 11:41 12/07/16 11:41 PT 9.7 SECONDS (9.7-12.2) 12/06/16 11:02 INR 0.9 12/06/16 11:02 APTT 24 SECONDS (21-34) 12/06/16 11:02 Assessment and Plan (1) Diabetic gastroparesis Status: Acute (2) Upper GI bleed Status: Acute (3) Anemia Status: Chronic (4) Diabetes mellitus Status: Chronic (5) Seizure Status: Chronic
[2016-12-09] MEDS: Sodium Chloride 0.45% 1,000 ML IV SCH ×2 (01:00→12:15)
[2016-12-09] MEDS: levETIRAcetam 500 MG in Sodium Chloride 0.9% 100 ML IVPB SCH ×2 (04:46→17:22)
[2016-12-09] MEDS: Pantoprazole 40 mg EC Tab PO SCH (06:31)
[2016-12-09] MEDS: (Novolin R) Insulin Human Regular 100 units/ml vial SC SCH ×4 (06:40→17:22)
[2016-12-09] MEDS: POLYETHYLENE GLYCOL 3350 17 GM/Dose PACKET PO SCH (10:18)
--- NOTE | 2016-12-09 13:44 | CP.PCM.DIS ---
Provider - Provider Date of Admission: 12/06/16 11:31 Attending physician: Naman Dong MD Time Spent in preparation of Discharge (in minutes): 30 Diagnosis - Discharge Diagnosis (1) Diabetic gastroparesis Status: Acute (2) Upper GI bleed Status: Acute (3) Anemia Status: Chronic (4) Diabetes mellitus Status: Chronic (5) Seizure Status: Chronic Hospital Course - Lab Results Lab Results: Most Recent Lab Values WBC 10.6 K/uL (4.8-10.8) 12/07/16 11:41 RBC 3.56 Mil/uL (3.80-5.20) L 12/07/16 11:41 Hgb 9.8 g/dL (11.0-16.0) L 12/07/16 11:41 Hct 31.0 % (34.0-47.0) L 12/07/16 11:41 MCV 87.2 fL (81.0-99.0) 12/07/16 11:41 MCH 27.6 pg (27.0-31.0) 12/07/16 11:41 MCHC 31.7 g/dL (33.0-37.0) L 12/07/16 11:41 RDW 15.1 % (11.5-14.5) H 12/07/16 11:41 Plt Count 420 K/uL (130-400) H 12/07/16 11:41 MPV 9.1 fL (7.2-11.7) 12/07/16 11:41 Neut % (Auto) 66.5 % (50.0-75.0) 12/07/16 11:41 Lymph % (Auto) 23.7 % (20.0-40.0) 12/07/16 11:41 [place] % (Auto) 8.6 % (0.0-10.0) 12/07/16 11:41 Eos % (Auto) 0.1 % (0.0-4.0) 12/07/16 11:41 Baso % (Auto) 1.1 % (0.0-2.0) 12/07/16 11:41 Neut # 7.0 K/uL (1.8-7.0) 12/07/16 11:41 Lymph # 2.5 K/uL (1.0-4.3) 12/07/16 11:41 [place] # 0.9 K/uL (0.0-0.8) H 12/07/16 11:41 Eos # 0.0 K/uL (0.0-0.7) 12/07/16 11:41 Baso # 0.1 K/uL (0.0-0.2) 12/07/16 11:41 PT 9.7 SECONDS (9.7-12.2) 12/06/16 11:02 INR 0.9 12/06/16 11:02 APTT 24 SECONDS (21-34) 12/06/16 11:02 Sodium 140 mmol/L (132-148) 12/07/16 11:41 Potassium 4.4 mmol/L (3.6-5.2) 12/07/16 11:41 Chloride 106 mmol/L (98-107) 12/07/16 11:41 Carbon Dioxide 22 mmol/L (22-30) 12/07/16 11:41 Anion Gap 17 (10-20) 12/07/16 11:41 BUN 34 mg/dL (7-17) H 12/07/16 11:41 Creatinine 2.1 MG/DL (0.7-1.2) H 12/07/16 11:41 Est GFR ( Amer) 34 12/07/16 11:41 Est GFR (Non-Af Amer) 28 12/07/16 11:41 POC Glucose (mg/dL) 396 mg/dL (65-110) H 12/09/16 11:52 Random Glucose 193 mg/dL (65-105) H 12/07/16 11:41 Calcium 9.0 mg/dl (8.6-10.4) 12/07/16 11:41 Total Bilirubin 0.4 mg/dL (0.2-1.3) 12/07/16 11:41 AST 22 U/L (14-36) 12/07/16 11:41 ALT 26 U/L (9-52) 12/07/16 11:41 Alkaline Phosphatase 84 U/L (38-126) 12/07/16 11:41 Total Protein 5.9 g/dL (6.3-8.3) L 12/07/16 11:41 Albumin 2.8 g/dL (3.5-5.0) L 12/07/16 11:41 Globulin 3.1 gm/dL (2.2-3.9) 12/07/16 11:41 Albumin/Globulin Ratio 0.9 (1.0-2.1) L 12/07/16 11:41 Lipase 88 U/L (23-300) 12/06/16 11:02 Urine Color Straw (YELLOW) 12/07/16 20: Urine Clarity Clear (Clear) 12/07/16 20: Urine pH 6.0 (5.0-8.0) 12/07/16 20: Ur Specific [place] 1.013 (1.003-1.030) 12/07/16 20: Urine Protein 3+ mg/dL (NEGATIVE) H 12/07/16 20: Urine Glucose (UA) 3+ mg/dL (Normal) H 12/07/16 20: Urine Ketones Negative mg/dL (NEGATIVE) 12/07/16 20: Urine Blood Negative (NEGATIVE) 12/07/16 20: Urine Nitrate Negative (NEGATIVE) 12/07/16 20: Urine Bilirubin Negative (NEGATIVE) 12/07/16 20: Urine Urobilinogen Normal mg/dL (0.2-1.0) 12/07/16 20:29 Ur Leukocyte Esterase Neg Kathy/uL (Negative) 12/07/16 20: Urine WBC (Auto) 2 /hpf (0-5) 12/07/16 20:29 Urine RBC (Auto) 4 /hpf (0-3) H 12/07/16 20:29 Ur Squamous Epith Cells 1 /hpf (0-5) 12/07/16 20:29 Urine HCG, Qual Negative (NEGATIVE) 12/07/16 20:29 Urine Opiates Screen Negative (NEGATIVE) 12/07/16 20: Urine Methadone Screen Negative (NEGATIVE) 12/07/16 20: Ur Barbiturates Screen Negative (NEGATIVE) 12/07/16 20: Ur Phencyclidine Scrn Negative (NEGATIVE) 12/07/16 20:29 Ur Amphetamines Screen Negative (NEGATIVE) 12/07/16 20: U Benzodiazepines Scrn Negative (NEGATIVE) 12/07/16 20: U Oth Cocaine Metabols Negative (NEGATIVE) 12/07/16 20: U Cannabinoids Screen Negative (NEGATIVE) 12/07/16 20:29 Serum Ketones Negative (NEGATIVE) 12/06/16 11:02 Blood Type O POSITIVE 12/06/16 11:02 Blood Type Confirm O POSITIVE 12/06/16 11:02 Antibody Screen Negative 12/06/16 11:02 - Hospital Course Hospital Course: ADMITTED WITH COFFEE [employer]OUND EMESIS THIS AM AFTER A BOUT OF VOMITING PT HAS H/O T2DM AND GASTROPARESIS WITH SIMILAR COMPLAINTS IN PAST . PAST H/O HTN/DM/ HYPERCHOLESTEROL GI WAS CONSULTED PT IMPROVED ON REGLAN AND PROTONEX EGD WAS RECENTLY DONE GI WILL F/U OUT PT Discharge Exam - Head Exam Head Exam: ATRAUMATIC, NORMAL INSPECTION, NORMOCEPHALIC Discharge Plan - Follow Up Plan Condition: GUARDED Disposition: HOME/ ROUTINE
[2016-12-09 16:28] VITALS: BP 151/83; PULSE 81; RESP 20; TEMP 99.1; O2SAT 98
--- NOTE | 2016-12-09 17:35 | CP.PCM.PN ---
Subjective - Date & Time of Evaluation Date of Evaluation: 12/09/16 Time of Evaluation: 17:35 - Subjective Subjective: PT SEEN BY DR. TURCIOS AND CLEARED FOR D/C HOME TODAY. ALL MEDS AND F/U DISCUSSED AT LENGTH WITH PT AND MOTHER AT BEDSIDE. TO F/U WITHIN 1 WEEK IN OFFICE. TO F/U WITH HER OWN GI IN 2 WEEKS. NO FURTHER ORDERS. Objective - Vital Signs/Intake and Output Vital Signs (last 24 hours): Temp Pulse Resp BP Pulse Ox 99.1 F 81 20 151/83 H 98 12/09/16 15:14 12/09/16 15:14 12/09/16 15:14 12/09/16 15:14 12/09/16 15:14 Intake and Output: 12/09/16 12/09/16 06:59 18:59 Intake Total 800 1400 Balance 800 1400 - Medications Medications: Current Medications Levetiracetam 500 mg/ Sodium (Chloride) 105 mls @ 420 mls/hr IVPB Q12H [facility] Last Admin: 12/09/16 17:22 Dose: 420 mls/hr Insulin Human Regular (Novolin R) 0 unit SC ACHS [facility] PRN Reason: Protocol Last Admin: 12/09/16 17:22 Dose: 4 unit Lamotrigine (Lamictal) 25 mg PO BID [facility] Last Admin: 12/09/16 17:22 Dose: 25 mg Lisinopril (Zestril) 20 mg PO DAILY [facility] Last Admin: 12/09/16 10:56 Dose: Not Given Lorazepam (Ativan) 1 mg IVP Q4 PRN PRN Reason: seizures Last Admin: 12/09/16 10:33 Dose: 1 mg Metoclopramide HCl (Reglan) 5 mg IVP Q8 [facility] Last Admin: 12/09/16 14:52 Dose: 5 mg Ondansetron HCl (Zofran Inj) 4 mg IVP Q6H PRN PRN Reason: Nausea/Vomiting Last Admin: 12/08/16 03:45 Dose: 4 mg Pantoprazole Sodium (Protonix Ec Tab) 40 mg PO ACB [facility] Last Admin: 12/09/16 06:31 Dose: 40 mg Polyethylene Glycol (Miralax) 17 gm PO DAILY [facility] Last Admin: 12/09/16 10:18 Dose: Not Given - Labs Labs: 12/07/16 11:41 08/20/17 11:41 PT 9.7 SECONDS (9.7-12.2) 12/06/16 11:02 INR 0.9 12/06/16 11:02 APTT 24 SECONDS (21-34) 12/06/16 11:02
--- NOTE | 2016-12-09 17:48 | CARD ---
APPROVED REPORT EKG Measurement Heart [id number] CO [id number] [id number] <Conclusion> Sinus tachycardia Cannot rule out Anterior infarct, age undetermined Abnormal ECG
== END 2016-12-09 18:16 | disposition home or self-care (01) | DRG 18 ==
LOC: C.ER 10:27 → C.9E 11:31 → C.6T 16:59
PROVIDERS: ADMIT Internal Medicine Cardiovascular Disease; ATTEND Internal Medicine Cardiovascular Disease
DX: E10.43 Type 1 diabetes mellitus with diabetic autonomic (poly)neuropathy (principal); K92.2 Gastrointestinal hemorrhage, unspecified; E10.65 Type 1 diabetes mellitus with hyperglycemia; I10 Essential (primary) hypertension; E86.0 Dehydration; K31.84 Gastroparesis; E78.00 Pure hypercholesterolemia, unspecified; D64.9 Anemia, unspecified; E78.5 Hyperlipidemia, unspecified; G40.909 Epilepsy, unspecified, not intractable, without status epilepticus; K21.0 Gastro-esophageal reflux disease with esophagitis; K59.09 Other constipation; Z87.891 Personal history of nicotine dependence

== ENCOUNTER 2016-12-18 16:36 | Inpatient (IN) | payer MEDICAID ==
[2016-12-18 16:37] VITALS: BMI 26.4
--- NOTE | 2016-12-18 17:09 | C.PDOC ---
History Of Present Illness 26 year old female, with a history of gastroparesis, diabetes, and a seizure disorder, was brought to the ED by EMS with complaints of abdominal pain and vomiting beginning this morning. Patient notes symptoms are consistent with prior episodes of gastroparesis. She was admitted on 12/09/2016 for similar complaints. As per mother, patient's PMD is located at [facility] and she seen in [place] yesterday for same complaints. Patient is compliant with antiepileptic medications. Upon arrival to ED, I was called to bedside by [employer] for concern of seizure. Patient was verbalizing and shaking all four extremities. She was able to regain consciousness and had no post-ictal period. Patient denies fever, nausea, or vomiting. Time Seen by Provider: 12/18/16 16:42 Chief Complaint (Nursing): Seizure History Per: Patient History/Exam Limitations: no limitations Recent Seizure Activity Began: Mins Ago: (upon arrival to ED, was called bedside by [employer] for concern of seizure. Patient was verbalizing and shaking all four extremities. Regained consciousness and no post-ictal period.) Past Medical History Reviewed: Historical Data, Nursing Documentation, Vital Signs Vital Signs: Last Vital Signs Temp 99.5 F 12/18/16 16:44 Pulse 105 H 12/18/16 17:50 Resp 20 12/18/16 17:50 BP 174/115 H 12/18/16 17:50 Pulse Ox 100 12/18/16 18:01 - Medical History PMH: Anemia, Anxiety, Depression, Diabetes, HTN, Seizures - [facility] Procedures EXCISION OF STOMACH, ENDO, DIAGN (11/02/16) INSERTION OF INFUSION DEV INTO L SUBCLAV VEIN, PERC APPROACH (10/28/16) INSERTION OF INFUSION DEV INTO SUP VENA CAVA, PERC APPROACH (11/02/16) INTRODUCTION OF NUTRITIONAL INTO PERIPH VEIN, PERC APPROACH (10/16/16) ULTRASONOGRAPHY OF SUPERIOR VENA CAVA, GUIDANCE (10/16/16) Family History: States: Unknown Family Hx - Social History Hx Alcohol Use: No Hx Substance Use: No - Immunization History Hx Tetanus Toxoid Vaccination: No Hx Influenza Vaccination: Yes Hx Pneumococcal Vaccination: Yes Review Of Systems Constitutional: Negative for: Fever, Chills Cardiovascular: Negative for: Chest Pain, Palpitations Respiratory: Negative for: Cough, Shortness of Breath Gastrointestinal: Positive for: Vomiting, Abdominal Pain. Negative for: Diarrhea Physical Exam - Physical Exam Appears: Non-toxic, No Acute Distress Skin: Warm, Dry Head: Atraumatic, Normacephalic Eye(s): bilateral: Normal Inspection, PERRL, EOMI Oral Mucosa: Moist Neck: Supple Chest: Symmetrical, No Deformity Cardiovascular: Rhythm Regular, No Murmur Respiratory: Normal Breath Sounds, No Rales, No Rhonchi, No Wheezing Gastrointestinal/Abdominal: Soft, No Tenderness, No Distention, No Guarding, No Rebound Extremity: Normal ROM, No Tenderness, Other (Moving all extremities ) Neurological/Psych: Oriented x3 ED Course And Treatment - Laboratory Results Result Diagrams: 12/18/16 17:08 12/18/16 17:08 O2 Sat by Pulse Oximetry: 100 (room air ) Progress Note: Labs, UA, and CXR were ordered. Medical Decision Making Medical Decision Making: Cxray negative. EKG shows sinus tachycardia at 105bpm with no st changes. Labs grossly unchanged from prior. Patient has had 3 episodes in ED of generalized shaking and then she regains consciousness. Associated with hypoglycemia from 107 to 46 to 55 to 64. Drank juice and was given amp d50. Will transfer to tele observation for hypoglycemia and recurrent seizures. Paged Dr. King and resident aware. Neurology consult placed Disposition - Disposition Disposition: HOSPITALIZED Disposition Time: 18:28 Condition: FAIR Forms: [facility] (Yoruba) - Clinical Impression Clinical Impression: Seizure - Scribe Statement The provider has reviewed the documentation as recorded by the Scribe Radha Nguyen All medical record entries made by the Scribe were at my direction and personally dictated by me. I have reviewed the chart and agree that the record accurately reflects my personal performance of the history, physical exam, medical decision making, and the department course for this patient. I have also personally directed, reviewed, and agree with the discharge instructions and disposition.
[2016-12-18 17:14] LABS: BASO # 0.1 K/uL (0.0-0.2); BASO % 1.2 % (0.0-2.0); EOS # 0.1 K/uL (0.0-0.7); EOS % 0.9 % (0.0-4.0); HEMATOCRIT 33.9 % (34.0-47.0); LYMPH # 1.9 K/uL (1.0-4.3); LYMPH % 15.8 % (20.0-40.0); MEAN CORPUSCULAR HEMOGLOBIN 27.7 pg (27.0-31.0); MEAN CORPUSCULAR HGB CONC 32.6 g/dL (33.0-37.0); MEAN PLATELET VOLUME 9.2 fL (7.2-11.7); MONO # 0.8 K/uL (0.0-0.8); MONO % 6.7 % (0.0-10.0); RED CELL DISTRIBUTION WIDTH 14.4 % (11.5-14.5); WHITE BLOOD COUNT 12.2 K/uL (4.8-10.8)
[2016-12-18 17:18] LABS: MEAN CELL VOLUME 84.8 fL (81.0-99.0)
--- NOTE | 2016-12-18 17:28 | RAD ---
HISTORY: seizure COMPARISON: Chest x-ray performed 12/06/16 TECHNIQUE: Chest, one view. FINDINGS: Examination limited by habitus and hypoinflation. LUNGS: No focal consolidation. Please note that chest x-ray has limited sensitivity for the detection of pulmonary masses. PLEURA: No significant pleural effusion identified. No definite pneumothorax . CARDIOVASCULAR: The cardiomediastinal silhouette appears within normal limits of size. OSSEOUS STRUCTURES: No acute osseous abnormality identified. VISUALIZED UPPER ABDOMEN: Unremarkable. OTHER FINDINGS: None. IMPRESSION: No focal consolidation, significant pleural effusion, or definite pneumothorax identified.
[2016-12-18 17:34] LABS: CHLORIDE 102 mmol/L (98-107)
[2016-12-18 17:35] LABS: POTASSIUM 3.5 mmol/L (3.6-5.2); SODIUM 137 mmol/L (132-148)
[2016-12-18 17:37] LABS: ALB/GLOB RATIO 0.9 (1.0-2.1); ALKALINE PHOSPHATASE 101 U/L (38-126); ALT/SGPT 25 U/L (9-52); AST/SGOT 30 U/L (14-36); BILIRUBIN,TOTAL 0.2 mg/dL (0.2-1.3); BLOOD UREA NITROGEN 27 mg/dL (7-17); CARBON DIOXIDE 22 mmol/L (22-30); GFR AFRICAN-AMERICAN 36; GLUCOSE,RANDOM 98 mg/dL (65-105); TOTAL PROTEIN 6.1 g/dL (6.3-8.3)
[2016-12-18 17:38] LABS: CALCIUM 9.2 mg/dl (8.6-10.4); MAGNESIUM 2.3 mg/dL (1.6-2.3); PHOSPHOROUS 2.5 mg/dL (2.5-4.5)
[2016-12-18] MEDS ORDERED: Dextrose 50% SYRINGE Inj (50 ml) IV STA (17:52)
[2016-12-18] MEDS ORDERED: Dextrose 50% SYRINGE Inj (50 ml) ONE (17:54)
[2016-12-18 18:19] LABS: RBC URINE 4 /hpf (0-3); TRANSITIONAL EPITHIAL < 1 /hpf (0-3); URINE BACTERIA RARE (<OCC); URINE BILIRUBIN NEGATIVE (NEGATIVE); URINE BLOOD NEGATIVE (NEGATIVE); URINE COLOR Yellow (YELLOW); URINE GLUCOSE (UA) 3+ mg/dL (Normal); URINE KETONE NEGATIVE (NEGATIVE); URINE LEUKOCYTE ESTERASE NEG Leu/uL (Negative); URINE PROTEIN 3+ mg/dL (NEGATIVE); URINE UROBILINOGEN NORMAL mg/dL (0.2-1.0); WBC URINE 4 /hpf (0-5)
[2016-12-18] MEDS ORDERED: Sodium Chloride 0.45% 1,000 ML IV SCH (20:45)
[2016-12-18] MEDS ORDERED: Sodium Chloride 0.45% 1,000 ML IV ONE (21:03)
[2016-12-18] MEDS: (Lantus) Insulin Glargine, Recombinant SC SCH (22:50)
--- NOTE | 2016-12-19 00:59 | CP.PCM.HP ---
History of Present Illness - History of Present Illness History of Present Illness: CC: Abdominal Pain and Vomiting HPI: Patient is a 26 year old female with a past medical history of DM, HTN seizure disorder, anemia, anxiety and depression who presented to the ED with complaints of nausea, vomiting, and abdominal pain. As per patient's mother, the symptoms began this morning and have not subsided at all throughout the day. The patient describes her abdominal pain as "feeling like fire" and states the pain is localized to her epigastric region. She states that she vomited once this morning and that she had 3-5 seizures today since arrival to the ED. She says that she took both her antiepileptic medication and Insulin today but did not taking any of her anti-hypertensive medications. Patient currently denies any fever, chills, chest pain, diarrhea and constipation but complains of some SOB. PMD: Dr. Peg Crook ([place]) PMHx: DM, Anemia, Anxiety, Depression, HTN, Seizures PSHx: Denies FHx: Maternal grandmother- unknown heart condition Medications: Norvasc 10mg PO daily, Vitamin B12 1,000mcg PO daily, Feosol 325mg PO BID, Hydralazine 12.5mg PO daily, Keppra 250mg PO BID, Lisinopril 20mg PO daily, Ativan 1mg PO Q6 PRN, Reglan 10mg PO Q8 PRN, Zoloft Allergies: NKDA Social Hx: Former smoker (quit 5yrs ago), former alcohol use (quit years ago), denies illicit drugs; lives with mother; unemployed Medications given in the ED: Norvasc 10mg PO daily, Dextrose 50%, Ativan 2mg, Zofran 4mg IV, 1/2 NS Present on Admission - Present on Admission Any Indicators Present on Admission: No Review of Systems - Constitutional Constitutional: Weakness. absent: Chills, Fever, Headache - EENT Eyes: absent: Blurred Vision, Change in Vision Ears: Dizziness - Cardiovascular Cardiovascular: Dyspnea. absent: Chest Pain, Chest Pain at Rest, Diaphoresis, Leg Edema, Palpitations - Respiratory Respiratory: Dyspnea - Gastrointestinal Gastrointestinal: Abdominal Pain, Nausea, Vomiting. absent: Change in Bowel Habits, Constipation, Diarrhea - Genitourinary Genitourinary: absent: Dysuria, Pyuria, Urinary Frequency, Urinary Urgency - Musculoskeletal Musculoskeletal: absent: Numbness, Tingling - Neurological Neurological: Dizziness, Weakness. absent: Syncope Past Patient History - Infectious Disease Hx of Infectious Diseases: None - Past Medical History & Family History Past Medical History?: Yes - Past Social History Smoking Status: Former Smoker - CARDIAC Hx Hypertension: Yes - PULMONARY Hx Respiratory Disorders: No - NEUROLOGICAL Hx Seizures: Yes - HEENT Hx HEENT Problems: Yes Other/Comment: blurred vision both eyes uses eyeglasses - RENAL Hx Chronic Kidney Disease: No - ENDOCRINE/METABOLIC Hx Endocrine Disorders: Yes (diabetes) Hx Diabetes Mellitus Type 1: Yes - HEMATOLOGICAL/ONCOLOGICAL Hx Anemia: Yes - INTEGUMENTARY Hx Dermatological Problems: No - MUSCULOSKELETAL/RHEUMATOLOGICAL Hx Musculoskeletal Disorders: Yes Hx Falls: Yes - GASTROINTESTINAL Hx Gastrointestinal Disorders: Yes Other/Comment: gastroparesis - GENITOURINARY/GYNECOLOGICAL Hx Genitourinary Disorders: No - PSYCHIATRIC Hx Anxiety: Yes Hx Depression: Yes Hx Substance Use: No - SURGICAL HISTORY Hx Surgeries: No - ANESTHESIA Hx Anesthesia: No Hx Anesthesia Reactions: No Hx Malignant Hyperthermia: No Meds Allergies/Adverse Reactions: Allergies Allergy/AdvReac Type Severity Reaction Status Date / Time No Known Allergies Allergy Verified 12/18/16 16:57 Physical Exam - Constitutional Appears: No Acute Distress - Head Exam Head Exam: ATRAUMATIC - Eye Exam Eye Exam: EOMI, Normal appearance - Respiratory Exam Respiratory Exam: Clear to Auscultation Bilateral, NORMAL BREATHING PATTERN - Cardiovascular Exam Cardiovascular Exam: REGULAR RHYTHM, +S1, +S2 - GI/Abdominal Exam GI & Abdominal Exam: Normal Bowel Sounds, Soft, Tenderness Additional comments: Epigastric tenderness - Extremities Exam Extremities exam: Negative for: calf tenderness, pedal edema - Neurological Exam Neurological exam: Alert, Oriented x3 - Skin Skin Exam: Dry, Normal Color, Warm Results - Vital Signs Recent Vital Signs: Last Vital Signs Temp 99.6 F 12/18/16 22:09 Pulse 96 H 12/18/16 23:05 Resp 20 12/18/16 22:09 BP 158/105 H 12/18/16 23:05 Pulse Ox 100 12/18/16 22:09 - Labs Result Diagrams: 12/18/16 17:08 12/18/16 17:08 Labs: Laboratory Results - last 24 hr 12/18/16 12/18/16 12/18/16 18:10 18:33 22:07 POC Glucose (mg/dL) 196 H 125 H Urine Color Yellow Urine Clarity Clear Urine pH 6.0 Ur Specific [place] 1.015 Urine Protein 3+ H Urine Glucose (UA) 3+ H Urine Ketones Negative Urine Blood Negative Urine Nitrate Negative Urine Bilirubin Negative Urine Urobilinogen Normal Ur Leukocyte Esterase Neg Urine WBC (Auto) 4 Urine RBC (Auto) 4 H Ur Squamous Epith Cells 3 Ur Transition Epith Cell < 1 Urine Bacteria Rare Assessment & Plan (1) Abdominal pain with vomiting Assessment and Plan: Zofran 4mg IVP Q6 PRN D51/2NS @ 50mls/hr Status: Acute (2) Seizure Assessment and Plan: Neurology consult, Dr. Cruz---> Help appreciated Continue home medication: * Keppra 250mg PO BID * Monitor serum level * Seizure precautions Status: Acute (3) HTN (hypertension) Assessment and Plan: Continue home medications: * Lisinopril 20mg PO daily ---- Held due to GABRIELA * Hydralazine 12.5mg PO daily * Norvasc 10mg PO daily * Monitor with vital checks Status: Acute (4) Diabetes mellitus Assessment and Plan: Accuchecks Lantus 17 units SC HS Novolog 7 units TIDAC Monitor Status: Chronic (5) Depressive disorder Assessment and Plan: Home medication: * Zoloft ( Unknown strength) Status: Acute (6) Acute kidney injury Assessment and Plan: On admission: BUN/CR: 2.7/2.0 GFR: 30 D51/2NS@ 50MLS/HR Status: Acute (7) Diabetic gastroparesis Assessment and Plan: Home medication: * Reglan 10mg PO Q8 prn Status: Acute (8) History of anemia Assessment and Plan: Stable H/H: 11.1/33.9 Continue home medications: * Fesol 325mg PO BID * Vitamin B12 1,000mcg PO daily * Monitor with daily CBC Status: Acute (9) Prophylactic measure Assessment and Plan: SCDs Protonix 40mg PO daily Heparin 5,000 units SC Q8H Status: Acute
[2016-12-19] MEDS ORDERED: Dextrose 5%/0.45% NS 1,000 ML IV SCH (02:00)
--- NOTE | 2016-12-19 03:43 | PCM.RRT ---
DRILL PRESS TENDER Nurses Assessment - Situation DRILL PRESS TENDER Responder Arrival Time: 22:40 I.Reason for DRILL PRESS TENDER - A) Acute Change in Patient: Subjective: DRILL PRESS TENDER was called at 10:40pm due to an episode of seizure. Upon arrival, patient was responsive. Ativan 1mg was given, patient was then stable Pre-DRILL PRESS TENDER Vitals: BP:175/116 HR: 99 RR:100% ON NON-REBREATHER MASK Blood glucose: 125 Post DRILL PRESS TENDER Vitals: BP: 160/107 HR: 96 RR:100% ON NON-REBREATHER MASK Blood glucose: 125 - Neurological Status (Select all that apply): Responsive, Weakness - Respiratory Oxygen Delivery Method: Non Rebreather @% - Eyes Eye Exam: EOMI, Normal appearance - Respiratory Exam Respiratory Exam: Clear to Ausculation Bilateral, NORMAL BREATHING PATTERN - Cardiovascular Exam Cardiovascular Exam: REGULAR RHYTHM, +S1, +S2 - GI/Abdominal Exam GI & Abdominal Exam: Soft, Tenderness, Normal Bowel Sounds Additional comments: Epigastric tenderness - Neurological Exam Additional exam: AAOX2 Plan - Assessment of Findings&Treatment Plan Patient is a26 year old female with past medical history of seizures who had DRILL PRESS TENDER at 10:40pm for witnessed seizure episode PLAN: - Continue antiepileptic medications -F/u recommendation as per neurology -Seizure precautions -PMD was notified
[2016-12-19 06:20] LABS: BASO # 0.1 K/uL (0.0-0.2); BASO % 0.7 % (0.0-2.0); EOS # 0.2 K/uL (0.0-0.7); EOS % 1.5 % (0.0-4.0); LYMPH # 2.7 K/uL (1.0-4.3); MEAN CORPUSCULAR HEMOGLOBIN 27.7 pg (27.0-31.0); MEAN CORPUSCULAR HGB CONC 32.9 g/dL (33.0-37.0); MEAN PLATELET VOLUME 9.1 fL (7.2-11.7); MONO # 0.8 K/uL (0.0-0.8); RED CELL DISTRIBUTION WIDTH 14.1 % (11.5-14.5); WHITE BLOOD COUNT 10.6 K/uL (4.8-10.8)
[2016-12-19 06:34] LABS: ALB/GLOB RATIO 0.9 (1.0-2.1); BILIRUBIN,TOTAL 0.2 mg/dL (0.2-1.3); CALCIUM 8.3 mg/dl (8.6-10.4); POTASSIUM 3.8 mmol/L (3.6-5.2); TOTAL PROTEIN 5.1 g/dL (6.3-8.3)
[2016-12-19] MEDS ORDERED: Albumin Human 25% (12.5 gm/50 ml) IV ONE (08:00)
[2016-12-19] MEDS: (Novolog) Insulin Aspart, Recombinant 100 u/ml 10 ml vial SC SCH ×3 (08:00→16:49)
[2016-12-19] MEDS: hydrALAZINE 12.5 mg Tab PO SCH (09:33)
[2016-12-19] MEDS: Pantoprazole 40 mg EC Tab PO SCH (09:33)
[2016-12-19] MEDS ORDERED: levETIRAcetam 1,000 MG in Sodium Chloride 0.9% 100 ML IVPB ONE (12:47)
--- NOTE | 2016-12-19 14:21 | CP.PCM.PN ---
<Melita Rosales - Last Filed: 12/19/16 20:27> Subjective - Date & Time of Evaluation Date of Evaluation: 12/19/16 Time of Evaluation: 09:30 - Subjective Subjective: Medicine Progress Note: Patient was seen and examined at bedside in the AM. Overnight a ACTIVITY SPECIALIST was called at 10:40pm due to an episode of seizure. Per overnight resident upon arrival, patient was responsive. Per overnight resident Ativan 1mg was given, patient was then stable. Patient states she does have a headache and feels tired. Patient denies palpitations, chest pain or difficulty breathing. Objective - Vital Signs/Intake and Output Vital Signs (last 24 hours): Temp Pulse Resp BP Pulse Ox 98.5 F 88 20 134/83 98 12/19/16 08:00 12/19/16 08:00 12/19/16 08:00 12/19/16 08:00 12/19/16 08:00 Intake and Output: 12/19/16 12/19/16 06:59 18:59 Intake Total 520 Balance 520 - Medications Medications: Current Medications Amlodipine Besylate (Norvasc) 10 mg PO DAILY [facility] Last Admin: 12/19/16 09:33 Dose: 10 mg Cyanocobalamin (Vitamin B12 1000 Mcg Tab) 1,000 mcg PO DAILY [facility] Last Admin: 12/19/16 09:33 Dose: 1,000 mcg Ferrous Sulfate (Feosol) 325 mg PO BID [facility] Last Admin: 12/19/16 09:33 Dose: 325 mg Heparin Sodium (Porcine) (Heparin) 5,000 units SC Q8 [facility] Last Admin: 12/19/16 13:12 Dose: 5,000 units Hydralazine HCl (Apresoline) 12.5 mg PO DAILY [facility] Last Admin: 12/19/16 09:33 Dose: 12.5 mg Dextrose/Sodium Chloride (Dextrose 5%/0.45% Ns 1000 Ml) 1,000 mls @ 50 mls/hr IV .Q20H [facility] Last Admin: 12/19/16 02:00 Dose: 50 mls/hr Insulin Aspart (Novolog) 7 unit SC TIDAC [facility] Last Admin: 12/19/16 12:49 Dose: 7 unit Insulin Glargine (Lantus) 17 unit SC HS [facility] Last Admin: 12/18/16 22:50 Dose: Not Given Lisinopril (Zestril) 20 mg PO DAILY [facility] Last Admin: 12/19/16 09:33 Dose: 20 mg Lorazepam (Ativan) 1 mg IVP Q6 PRN PRN Reason: Seizure activity Last Admin: 12/19/16 13:56 Dose: 1 mg Ondansetron HCl (Zofran Odt) 4 mg PO Q6 PRN PRN Reason: Nausea/Vomiting Last Admin: 12/19/16 06:41 Dose: 4 mg Pantoprazole Sodium (Protonix Ec Tab) 40 mg PO DAILY [facility] Last Admin: 12/19/16 09:33 Dose: 40 mg - Labs Labs: 12/19/16 06:11 12/19/16 06:11 - Constitutional Appears: Well, Non-toxic, No Acute Distress - Head Exam Head Exam: ATRAUMATIC, NORMAL INSPECTION, NORMOCEPHALIC - Eye Exam Eye Exam: EOMI, Normal appearance, PERRL Pupil Exam: NORMAL ACCOMODATION - ENT Exam ENT Exam: Mucous Membranes Moist - Respiratory Exam Respiratory Exam: Clear to Ausculation Bilateral, NORMAL BREATHING PATTERN - Cardiovascular Exam Cardiovascular Exam: REGULAR RHYTHM, RRR, +S1, +S2 - GI/Abdominal Exam GI & Abdominal Exam: Soft, Normal Bowel Sounds. absent: Tenderness - Extremities Exam Extremities Exam: Normal Inspection. absent: Pedal Edema - Neurological Exam Neurological Exam: Alert, Awake, Oriented x3 - Psychiatric Exam Psychiatric exam: Normal Affect - Skin Skin Exam: Normal Color, Warm Assessment and Plan - Assessment and Plan (Free Text) Plan: (1) Abdominal pain with vomiting Zofran 4mg IVP Q6 PRN D51/2NS @ 50mls/hr (2) Seizure Neurology consult, Dr. Cruz---> Help appreciated Continue home medication: * Increased Keppra 750mg PO BID * Monitor serum level * Seizure precautions * f/u FSH/LH/E2 * f/u UDS (3) HTN (hypertension) Continue home medications: * Lisinopril 20mg PO daily ---- Held due to GABRIELA * Hydralazine 12.5mg PO daily * Norvasc 10mg PO daily * Monitor with vital checks (4) Diabetes mellitus Accuchecks Lantus 17 units SC HS Novolog 7 units TIDAC Monitor (5) Depressive disorder Home medication: * Zoloft ( Unknown strength) (6) Acute kidney injury On admission: BUN/CR: 23/2.0 GFR: 30 D51/2NS@ 50MLS/HR (7) Diabetic gastroparesis Home medication: * Reglan 10mg PO Q8 prn (8) History of anemia Stable H/H: 10.2/31.0 Continue home medications: * Fesol 325mg PO BID * Vitamin B12 1,000mcg PO daily * Monitor with daily CBC (9) Prophylactic measure Assessment and Plan: SCDs Protonix 40mg PO daily Heparin 5,000 units SC Q8H Case discussed with Dr. Christine Rosales - PGY1 <Reza King Jr. - Last Filed: 12/22/16 14:02> Objective - Vital Signs/Intake and Output Vital Signs (last 24 hours): Temp Pulse Resp BP Pulse Ox 97.5 F L 99 H 18 147/94 H 99 12/20/16 16:00 12/20/16 16:00 12/20/16 16:00 12/20/16 16:00 12/20/16 16:00 - Labs Labs: 12/20/16 07:17 12/20/16 07:17 Attending/Attestation - Attestation I have personally seen and examined this patient.: Yes I have fully participated in the care of the patient.: Yes I have reviewed all pertinent clinical information, including history, physical exam and plan: Yes Notes (Text): 12/22/16 14:02 Agree with resident note and plan of care
--- NOTE | 2016-12-19 14:45 | CP.PCM.CON ---
History of Present Illness - History of Present Illness History of Present Illness: Ms. Larry is a 26-year-old woman with a past medical history of DM, HTN seizure disorder, anemia, anxiety and depression who presented to the ED with complaints of nausea, vomiting, and abdominal pain. According to the history, she then had 3-5 generalized seizures. Possibly due to not being able to metabolize her medications due to vomiting. Review of Systems - Review of Systems All systems: reviewed and no additional remarkable complaints except Past Patient History - Infectious Disease Hx of Infectious Diseases: None - Past Medical History & Family History Past Medical History?: Yes - Past Social History Smoking Status: Former Smoker - CARDIAC Hx Hypertension: Yes - PULMONARY Hx Respiratory Disorders: No - NEUROLOGICAL Hx Seizures: Yes - HEENT Hx HEENT Problems: Yes Other/Comment: blurred vision both eyes uses eyeglasses - RENAL Hx Chronic Kidney Disease: No - ENDOCRINE/METABOLIC Hx Endocrine Disorders: Yes (diabetes) Hx Diabetes Mellitus Type 1: Yes - HEMATOLOGICAL/ONCOLOGICAL Hx Anemia: Yes - INTEGUMENTARY Hx Dermatological Problems: No - MUSCULOSKELETAL/RHEUMATOLOGICAL Hx Musculoskeletal Disorders: Yes Hx Falls: Yes - GASTROINTESTINAL Hx Gastrointestinal Disorders: Yes Other/Comment: gastroparesis - GENITOURINARY/GYNECOLOGICAL Hx Genitourinary Disorders: No - PSYCHIATRIC Hx Anxiety: Yes Hx Depression: Yes Hx Substance Use: No - SURGICAL HISTORY Hx Surgeries: No - ANESTHESIA Hx Anesthesia: No Hx Anesthesia Reactions: No Hx Malignant Hyperthermia: No Meds Allergies/Adverse Reactions: Allergies Allergy/AdvReac Type Severity Reaction Status Date / Time No Known Allergies Allergy Verified 12/18/16 16:57 - Medications Medications: Current Medications Amlodipine Besylate (Norvasc) 10 mg PO DAILY [facility] Last Admin: 12/19/16 09:33 Dose: 10 mg Cyanocobalamin (Vitamin B12 1000 Mcg Tab) 1,000 mcg PO DAILY [facility] Last Admin: 12/19/16 09:33 Dose: 1,000 mcg Ferrous Sulfate (Feosol) 325 mg PO BID [facility] Last Admin: 12/19/16 09:33 Dose: 325 mg Heparin Sodium (Porcine) (Heparin) 5,000 units SC Q8 [facility] Last Admin: 12/19/16 13:12 Dose: 5,000 units Hydralazine HCl (Apresoline) 12.5 mg PO DAILY [facility] Last Admin: 12/19/16 09:33 Dose: 12.5 mg Dextrose/Sodium Chloride (Dextrose 5%/0.45% Ns 1000 Ml) 1,000 mls @ 50 mls/hr IV .Q20H [facility] Last Admin: 12/19/16 02:00 Dose: 50 mls/hr Insulin Aspart (Novolog) 7 unit SC TIDAC [facility] Last Admin: 12/19/16 12:49 Dose: 7 unit Insulin Glargine (Lantus) 17 unit SC HS [facility] Last Admin: 12/18/16 22:50 Dose: Not Given Levetiracetam (Keppra) 750 mg PO BID [facility] Lisinopril (Zestril) 20 mg PO DAILY [facility] Last Admin: 12/19/16 09:33 Dose: 20 mg Lorazepam (Ativan) 1 mg IVP Q6 PRN PRN Reason: Seizure activity Last Admin: 12/19/16 13:56 Dose: 1 mg Ondansetron HCl (Zofran Odt) 4 mg PO Q6 PRN PRN Reason: Nausea/Vomiting Last Admin: 12/19/16 06:41 Dose: 4 mg Pantoprazole Sodium (Protonix Ec Tab) 40 mg PO DAILY [facility] Last Admin: 12/19/16 09:33 Dose: 40 mg Physical Exam - Constitutional Appears: Well - Head Exam Head Exam: ATRAUMATIC, NORMAL INSPECTION, NORMOCEPHALIC - Eye Exam Eye Exam: EOMI, Normal appearance, PERRL - ENT Exam ENT Exam: Mucous Membranes Moist, Normal Exam - Neck Exam Neck exam: Positive for: Normal Inspection - Respiratory Exam Respiratory Exam: Clear to Auscultation Bilateral, NORMAL BREATHING PATTERN - GI/Abdominal Exam GI & Abdominal Exam: Normal Bowel Sounds, Soft. absent: Tenderness - Rectal Exam Rectal Exam: Deferred - Extremities Exam Extremities exam: Positive for: normal inspection - Neurological Exam Neurological exam: Alert, CN II-XII Intact, Normal Gait, Oriented x3, Reflexes Normal - Psychiatric Exam Psychiatric exam: Normal Affect, Normal Mood - Skin Skin Exam: Dry, Intact, Normal Color, Warm Results - Vital Signs Recent Vital Signs: Last Vital Signs Temp 98.5 F 12/19/16 08:00 Pulse 88 12/19/16 08:00 Resp 20 12/19/16 08:00 BP 134/83 12/19/16 08:00 Pulse Ox 98 12/19/16 08:00 - Labs Result Diagrams: 12/19/16 06:11 12/19/16 06:11 Labs: Laboratory Results - last 24 hr 12/18/16 12/18/16 12/18/16 18:10 18:33 22:07 WBC RBC Hgb Hct MCV MCH MCHC RDW Plt Count MPV Neut % (Auto) Lymph % (Auto) [place] % (Auto) Eos % (Auto) Baso % (Auto) Neut # Lymph # [place] # Eos # Baso # Sodium Potassium Chloride Carbon Dioxide Anion Gap BUN Creatinine Est GFR ( Amer) Est GFR (Non-Af Amer) POC Glucose (mg/dL) 196 H 125 H Random Glucose Calcium Total Bilirubin AST ALT Alkaline Phosphatase Total Protein Albumin Globulin Albumin/Globulin Ratio Urine Color Yellow Urine Clarity Clear Urine pH 6.0 Ur Specific [place] 1.015 Urine Protein 3+ H Urine Glucose (UA) 3+ H Urine Ketones Negative Urine Blood Negative Urine Nitrate Negative Urine Bilirubin Negative Urine Urobilinogen Normal Ur Leukocyte Esterase Neg Urine WBC (Auto) 4 Urine RBC (Auto) 4 H Ur Squamous Epith Cells 3 Ur Transition Epith Cell < 1 Urine Bacteria Rare 12/19/16 12/19/16 12/19/16 01:52 06:11 06:11 WBC 10.6 RBC 3.69 L Hgb 10.2 L Hct 31.0 L MCV 84.0 MCH 27.7 MCHC 32.9 L RDW 14.1 Plt Count 388 MPV 9.1 Neut % (Auto) 63.8 Lymph % (Auto) 26.0 [place] % (Auto) 8.0 Eos % (Auto) 1.5 Baso % (Auto) 0.7 Neut # 6.7 Lymph # 2.7 [place] # 0.8 Eos # 0.2 Baso # 0.1 Sodium 132 Potassium 3.8 Chloride 100 Carbon Dioxide 27 Anion Gap 8 L BUN 23 H Creatinine 2.0 H Est GFR ( Amer) 36 Est GFR (Non-Af Amer) 30 POC Glucose (mg/dL) 171 H Random Glucose 185 H Calcium 8.3 L Total Bilirubin 0.2 AST 19 ALT 22 Alkaline Phosphatase 87 Total Protein 5.1 L Albumin 2.4 L Globulin 2.6 Albumin/Globulin Ratio 0.9 L Urine Color Urine Clarity Urine pH Ur Specific [place] Urine Protein Urine Glucose (UA) Urine Ketones Urine Blood Urine Nitrate Urine Bilirubin Urine Urobilinogen Ur Leukocyte Esterase Urine WBC (Auto) Urine RBC (Auto) Ur Squamous Epith Cells Ur Transition Epith Cell Urine Bacteria 12/19/16 12/19/16 12/19/16 06:18 10:46 11:13 WBC RBC Hgb Hct MCV MCH MCHC RDW Plt Count MPV Neut % (Auto) Lymph % (Auto) [place] % (Auto) Eos % (Auto) Baso % (Auto) Neut # Lymph # [place] # Eos # Baso # Sodium Potassium Chloride Carbon Dioxide Anion Gap BUN Creatinine Est GFR ( Amer) Est GFR (Non-Af Amer) POC Glucose (mg/dL) 222 H 150 H 168 H Random Glucose Calcium Total Bilirubin AST ALT Alkaline Phosphatase Total Protein Albumin Globulin Albumin/Globulin Ratio Urine Color Urine Clarity Urine pH Ur Specific [place] Urine Protein Urine Glucose (UA) Urine Ketones Urine Blood Urine Nitrate Urine Bilirubin Urine Urobilinogen Ur Leukocyte Esterase Urine WBC (Auto) Urine RBC (Auto) Ur Squamous Epith Cells Ur Transition Epith Cell Urine Bacteria Assessment & Plan (1) Seizure Assessment and Plan: Likely due to low blood levels of anti-epileptic medications. I recommend loading with 1000 mg IV Keppra to ensure therapeutic levels and continue 750 mg BID. The patient should be followed up with outpatient neurology and primary care for management of polypharmacy and several hormonal issues that she complains of. Thank you. Status: Acute Priority: Medium
[2016-12-19] MEDS: (Lantus) Insulin Glargine, Recombinant SC SCH (21:26)
[2016-12-20] MEDS: (Novolog) Insulin Aspart, Recombinant 100 u/ml 10 ml vial SC SCH ×3 (06:32→18:20)
[2016-12-20 07:24] LABS: BASO # 0.1 K/uL (0.0-0.2); BASO % 1.4 % (0.0-2.0); EOS # 0.2 K/uL (0.0-0.7); EOS % 2.1 % (0.0-4.0); HEMATOCRIT 32.9 % (34.0-47.0); LYMPH # 3.7 K/uL (1.0-4.3); LYMPH % 42.5 % (20.0-40.0); MEAN CELL VOLUME 84.2 fL (81.0-99.0); MEAN CORPUSCULAR HEMOGLOBIN 27.8 pg (27.0-31.0); MEAN CORPUSCULAR HGB CONC 33.1 g/dL (33.0-37.0); MEAN PLATELET VOLUME 9.7 fL (7.2-11.7); MONO # 0.6 K/uL (0.0-0.8); MONO % 7.1 % (0.0-10.0); RED CELL DISTRIBUTION WIDTH 14.2 % (11.5-14.5); WHITE BLOOD COUNT 8.7 K/uL (4.8-10.8)
[2016-12-20 07:51] LABS: BILIRUBIN,TOTAL 0.2 mg/dL (0.2-1.3); CALCIUM 8.8 mg/dl (8.6-10.4); TOTAL PROTEIN 5.7 g/dL (6.3-8.3)
--- NOTE | 2016-12-20 08:04 | CARD ---
APPROVED REPORT EKG Measurement Heart [id number] <Conclusion> Sinus tachycardia Otherwise normal ECG
[2016-12-20 08:08] LABS: FSH 5.6 mIU/mL
[2016-12-20 08:32] VITALS: RESP 18
[2016-12-20 08:58] LABS: ESTRADIOL (E2) 44.2 pg/mL
[2016-12-20] MEDS: Pantoprazole 40 mg EC Tab PO SCH (10:01)
[2016-12-20] MEDS: hydrALAZINE 12.5 mg Tab PO SCH (10:02)
[2016-12-20 16:08] VITALS: BP 147/94; TEMP 97.5; O2SAT 99
[2016-12-20 16:57] VITALS: PULSE 99
--- NOTE | 2016-12-20 19:56 | CP.PCM.DIS ---
Provider - Provider Date of Admission: 12/19/16 15:12 Attending physician: Reza King Jr, MD Time Spent in preparation of Discharge (in minutes): 40 Hospital Course - Lab Results Lab Results: Most Recent Lab Values WBC 8.7 K/uL (4.8-10.8) 12/20/16 07:17 RBC 3.90 Mil/uL (3.80-5.20) 12/20/16 07:17 Hgb 10.9 g/dL (11.0-16.0) L 12/20/16 07:17 Hct 32.9 % (34.0-47.0) L 12/20/16 07:17 MCV 84.2 fL (81.0-99.0) 12/20/16 07:17 MCH 27.8 pg (27.0-31.0) 12/20/16 07:17 MCHC 33.1 g/dL (33.0-37.0) 12/20/16 07:17 RDW 14.2 % (11.5-14.5) 12/20/16 07:17 Plt Count 436 K/uL (130-400) H 12/20/16 07:17 MPV 9.7 fL (7.2-11.7) 12/20/16 07:17 Neut % (Auto) 46.9 % (50.0-75.0) L 12/20/16 07:17 Lymph % (Auto) 42.5 % (20.0-40.0) H 12/20/16 07:17 Cowley % (Auto) 7.1 % (0.0-10.0) 12/20/16 07:17 Eos % (Auto) 2.1 % (0.0-4.0) 12/20/16 07:17 Baso % (Auto) 1.4 % (0.0-2.0) 12/20/16 07:17 Neut # 4.1 K/uL (1.8-7.0) 12/20/16 07:17 Lymph # 3.7 K/uL (1.0-4.3) 12/20/16 07:17 Cowley # 0.6 K/uL (0.0-0.8) 12/20/16 07:17 Eos # 0.2 K/uL (0.0-0.7) 12/20/16 07:17 Baso # 0.1 K/uL (0.0-0.2) 12/20/16 07:17 Sodium 134 mmol/L (132-148) 12/20/16 07:17 Potassium 4.0 mmol/L (3.6-5.2) 12/20/16 07:17 Chloride 98 mmol/L (98-107) 12/20/16 07:17 Carbon Dioxide 25 mmol/L (22-30) 12/20/16 07:17 Anion Gap 15 (10-20) 12/20/16 07:17 BUN 25 mg/dL (7-17) H 12/20/16 07:17 Creatinine 2.1 MG/DL (0.7-1.2) H 12/20/16 07:17 Est GFR ( Amer) 34 12/20/16 07:17 Est GFR (Non-Af Amer) 28 12/20/16 07:17 POC Glucose (mg/dL) 346 mg/dL (65-110) H 12/20/16 16:36 Random Glucose 343 mg/dL (65-105) H 12/20/16 07:17 Calcium 8.8 mg/dl (8.6-10.4) 12/20/16 07:17 Phosphorus 2.5 mg/dL (2.5-4.5) 12/18/16 17:08 Magnesium 2.3 mg/dL (1.6-2.3) 12/18/16 17:08 Total Bilirubin 0.2 mg/dL (0.2-1.3) 12/20/16 07:17 AST 13 U/L (14-36) L D 12/20/16 07:17 ALT 21 U/L (9-52) 12/20/16 07:17 Alkaline Phosphatase 133 U/L (38-126) H D 12/20/16 07:17 Total Protein 5.7 g/dL (6.3-8.3) L 12/20/16 07:17 Albumin 2.8 g/dL (3.5-5.0) L 12/20/16 07:17 Globulin 2.9 gm/dL (2.2-3.9) 12/20/16 07:17 Albumin/Globulin Ratio 1.0 (1.0-2.1) 12/20/16 07:17 Lipase 20 U/L (23-300) L 12/18/16 17:08 Estradiol (E2) Level 44.2 pg/mL 12/20/16 07:17 FSH 3rd Generation 5.6 mIU/mL 12/20/16 07:17 Luteinizing Hormone 13.1 mIU/mL 12/20/16 07:17 Beta HCG, Quant < 2.39 mIU/ML 12/18/16 17:08 Urine Color Yellow (YELLOW) 12/18/16 18:10 Urine Clarity Clear (Clear) 12/18/16 18:10 Urine pH 6.0 (5.0-8.0) 12/18/16 18:10 Ur Specific Vanderbilt 1.015 (1.003-1.030) 12/18/16 18:10 Urine Protein 3+ mg/dL (NEGATIVE) H 12/18/16 18:10 Urine Glucose (UA) 3+ mg/dL (Normal) H 12/18/16 18:10 Urine Ketones Negative mg/dL (NEGATIVE) 12/18/16 18:10 Urine Blood Negative (NEGATIVE) 12/18/16 18:10 Urine Nitrate Negative (NEGATIVE) 12/18/16 18:10 Urine Bilirubin Negative (NEGATIVE) 12/18/16 18:10 Urine Urobilinogen Normal mg/dL (0.2-1.0) 12/18/16 18:10 Ur Leukocyte Esterase Neg Kathy/uL (Negative) 12/18/16 18:10 Urine WBC (Auto) 4 /hpf (0-5) 12/18/16 18:10 Urine RBC (Auto) 4 /hpf (0-3) H 12/18/16 18:10 Ur Squamous Epith Cells 3 /hpf (0-5) 12/18/16 18:10 Ur Transition Epith Cell < 1 /hpf (0-3) 12/18/16 18:10 Urine Bacteria Rare (<OCC) 12/18/16 18:10 Urine HCG, Qual Negative (NEGATIVE) 12/19/16 22:11 Urine Opiates Screen Negative (NEGATIVE) 12/19/16 22:11 Urine Methadone Screen Negative (NEGATIVE) 12/19/16 22:11 Ur Barbiturates Screen Negative (NEGATIVE) 12/19/16 22:11 Ur Phencyclidine Scrn Negative (NEGATIVE) 12/19/16 22:11 Ur Amphetamines Screen Negative (NEGATIVE) 12/19/16 22:11 U Benzodiazepines Scrn Negative (NEGATIVE) 12/19/16 22:11 U Oth Cocaine Metabols Negative (NEGATIVE) 12/19/16 22:11 U Cannabinoids Screen Negative (NEGATIVE) 12/19/16 22:11 - Hospital Course Hospital Course: CC: Abdominal Pain and Vomiting HPI: Patient is a 26 year old female with a past medical history of DM, HTN seizure disorder, anemia, anxiety and depression who presented to the ED with complaints of nausea, vomiting, and abdominal pain. As per patient's mother, the symptoms began this morning and have not subsided at all throughout the day. The patient describes her abdominal pain as "feeling like fire" and states the pain is localized to her epigastric region. She states that she vomited once this morning and that she had 3-5 seizures today since arrival to the ED. She says that she took both her antiepileptic medication and Insulin today but did not taking any of her anti-hypertensive medications. Patient currently denies any fever, chills, chest pain, diarrhea and constipation but complains of some SOB. PMD: Dr. Peg Crook ([place]) PMHx: DM, Anemia, Anxiety, Depression, HTN, Seizures PSHx: Denies FHx: Maternal grandmother- unknown heart condition Medications: Norvasc 10mg PO daily, Vitamin B12 1,000mcg PO daily, Feosol 325mg PO BID, Hydralazine 12.5mg PO daily, Keppra 250mg PO BID, Lisinopril 20mg PO daily, Ativan 1mg PO Q6 PRN, Reglan 10mg PO Q8 PRN, Zoloft Allergies: NKDA Social Hx: Former smoker (quit 5yrs ago), former alcohol use (quit years ago), denies illicit drugs; lives with mother; unemployed Medications given in the ED: Norvasc 10mg PO daily, Dextrose 50%, Ativan 2mg, Zofran 4mg IV, 1/2 NS Hospital Course: 12/19/13: Rapid response was called at 10:40pm due to an episode of seizure. Upon arrival, patient was responsive. Ativan 1mg was given, patient was then stable. Neurology Dr. Cruz was consulted who increased her Keppra to 750mg PO BID. Patient's home medications were continued. Hormone levels LH, FSH and Estrogen were all within normal range. Chest X-ray was done which was in normal range. Patient was hemodynamically stable. Patient stable for discharge per Dr. King. Patient to follow up with primary care physician in 1-[address] Reza King: [id number] [phone] Patient to continue home medications. Patient to start new medication: Keppra 750mg PO BID Patient to return to the emergency room if symptoms return. This is a brief summary of events. For a complete course, refer to the medical record. Discharge Exam - Head Exam Head Exam: ATRAUMATIC, NORMAL INSPECTION, NORMOCEPHALIC - Eye Exam Eye Exam: EOMI, Normal appearance, PERRL Pupil Exam: NORMAL ACCOMODATION - ENT Exam ENT Exam: Mucous Membranes Moist - Respiratory Exam Respiratory Exam: Clear to PA & Lateral, NORMAL BREATHING PATTERN - Cardiovascular Exam Cardiovascular Exam: REGULAR RHYTHM, RRR, +S1, +S2 - GI/Abdominal Exam GI & Abdominal Exam: Normal Bowel Sounds, Soft. absent: Tenderness - Extremities Exam Extremities exam: normal inspection - Neurological Exam Neurological exam: Alert, Oriented x3 - Psychiatric Exam Psychiatric exam: Normal Affect, Normal Mood - Skin Skin Exam: Normal Color, Warm Discharge Plan - Discharge Medications Prescriptions: levETIRAcetam [Keppra] 750 mg PO BID #60 tab - Follow Up Plan Condition: FAIR Disposition: HOME/ ROUTINE Instructions: Levetiracetam (By mouth), Diabetic Hypoglycemia (DC), Diabetes Mellitus Type 2 in Adults (GEN), Managing Diabetes During Sick Days (DC), Recurrent Seizures in Adults (DC), Gastroparesis (DC) Additional Instructions: AMBULATE TOLERATED W/ SAFETY PRECAUTIONS Referrals: Reza King Jr., MD [Medical Doctor] -
[2016-12-21] MEDS ORDERED: Pneumococcal 23-Valent Vaccine IM ONE (10:00)
== END 2016-12-20 19:30 | disposition home or self-care (01) | DRG 533 ==
LOC: C.ER 16:36 → C.9E 18:00 → C.6T 20:37 → OBSVTOIN 12-19 15:12
PROVIDERS: ADMIT Internal Medicine; ATTEND Internal Medicine
DX: E10.43 Type 1 diabetes mellitus with diabetic autonomic (poly)neuropathy (principal); N17.9 Acute kidney failure, unspecified; E10.649 Type 1 diabetes mellitus with hypoglycemia without coma; K31.84 Gastroparesis; I10 Essential (primary) hypertension; G40.909 Epilepsy, unspecified, not intractable, without status epilepticus; F32.9 Major depressive disorder, single episode, unspecified; F41.9 Anxiety disorder, unspecified; D64.9 Anemia, unspecified; Z87.891 Personal history of nicotine dependence

== ENCOUNTER 2016-12-23 18:50 | Inpatient (IN) | payer MEDICAID ==
[2016-12-23 18:50] VITALS: BMI 26.4
[2016-12-23] MEDS ORDERED: Sodium Chloride 0.9% 1,000 ML IV ONE (19:38)
[2016-12-23] MEDS ORDERED: Sodium Chloride 0.9% 1,000 ML ONE (19:58)
[2016-12-23 20:53] LABS: BASO # 0.1 K/uL (0.0-0.2); BASO % 0.9 % (0.0-2.0); EOS % 0.2 % (0.0-4.0); HEMATOCRIT 33.7 % (34.0-47.0); LYMPH # 1.1 K/uL (1.0-4.3); LYMPH % 11.6 % (20.0-40.0); MEAN CELL VOLUME 84.7 fL (81.0-99.0); MEAN CORPUSCULAR HEMOGLOBIN 28.2 pg (27.0-31.0); MEAN CORPUSCULAR HGB CONC 33.3 g/dL (33.0-37.0); MEAN PLATELET VOLUME 9.3 fL (7.2-11.7); MONO # 0.2 K/uL (0.0-0.8); MONO % 2.2 % (0.0-10.0); RED CELL DISTRIBUTION WIDTH 14.2 % (11.5-14.5); WHITE BLOOD COUNT 9.6 K/uL (4.8-10.8)
--- NOTE | 2016-12-23 20:56 | C.PDOC ---
History Of Present Illness 26 year old female was brought to the ED by EMS for evaluation of seizure at home just prior to arrival. Patient stays awake through seizures and notes long history of seizures. H/o "pseudo" seizures. She denies fever, chills, nausea, or vomiting. [place]: 6 Rx's for benzo's from 6 prescribers Time Seen by Provider: 12/23/16 19:37 Chief Complaint (Nursing): Seizure History Per: Patient History/Exam Limitations: no limitations Recent Seizure Activity Began: Just Before Arrival Number Of Seizures: Multiple Length Of Seizures (Duration): Unknown Quality Of Seizure: Generalized Post-ictal Period: No Recent travel outside of the [place]: No Additional History Per: EMS Past Medical History Reviewed: Historical Data, Nursing Documentation, Vital Signs Vital Signs: Last Vital Signs Temp 99.1 F 12/23/16 19:06 Pulse 113 H 12/23/16 23:05 Resp 16 12/23/16 23:05 BP 190/121 H 12/23/16 23:05 Pulse Ox 100 12/23/16 23:05 - Medical History PMH: Anemia, Anxiety, Depression, Diabetes, HTN, Seizures - [facility] Procedures EXCISION OF STOMACH, ENDO, DIAGN (11/02/16) INSERTION OF INFUSION DEV INTO L SUBCLAV VEIN, PERC APPROACH (10/28/16) INSERTION OF INFUSION DEV INTO SUP VENA CAVA, PERC APPROACH (11/02/16) INTRODUCTION OF NUTRITIONAL INTO PERIPH VEIN, PERC APPROACH (10/16/16) ULTRASONOGRAPHY OF SUPERIOR VENA CAVA, GUIDANCE (10/16/16) Family History: States: Unknown Family Hx - Social History Hx Alcohol Use: No Hx Substance Use: No - Immunization History Hx Tetanus Toxoid Vaccination: No Hx Influenza Vaccination: Yes Hx Pneumococcal Vaccination: Yes Review Of Systems Constitutional: Negative for: Fever, Chills Cardiovascular: Negative for: Chest Pain, Palpitations Respiratory: Negative for: Cough, Shortness of Breath Gastrointestinal: Negative for: Nausea, Vomiting, Abdominal Pain, Diarrhea Neurological: Positive for: Seizures Physical Exam - Physical Exam Appears: Non-toxic, No Acute Distress, Other (Obese looking woman ) Skin: Warm, Dry Head: Atraumatic Eye(s): bilateral: Normal Inspection Oral Mucosa: Moist Tongue: Normal Appearing, No Bite Lips: Normal Appearing Neck: Supple Chest: Symmetrical, No Deformity Cardiovascular: Rhythm Regular Respiratory: Normal Breath Sounds, No Rales, No Rhonchi, No Wheezing Gastrointestinal/Abdominal: Soft, No Tenderness, No Distention, No Guarding, No Rebound Extremity: Normal ROM, No Tenderness Neurological/Psych: Oriented x3, Normal Speech, Normal Cognition, Normal Motor, Normal Sensation Gait: Steady ED Course And Treatment - Laboratory Results Result Diagrams: 12/23/16 20:49 12/23/16 20:49 Lab Interpretation: Abnormal (cri, elev glu) ECG: Interpreted By Me, Viewed By Me ECG Rhythm: Sinus Tachycardia ECG Interpretation: Abnormal Rate From EC O2 Sat by Pulse Oximetry: 100 (room air ) - Radiology CXR Interpretation: Yes: Other (deferred) Progress Note: EKG, UA, and labs were ordered. Patient was given Zofran and IV fluids. Ativan, labetolol IV, zofran. Patient had questionable sizure in the ED, was given 2mg of Ativan and had no post-ictal period. Patient was normal and conversational. Reevaluation Time: 21:50 Reassessment Condition: Improved - Physician Consult Information Outcome Of Conversation: 2145: d/w Dr. Reji baptiste to adm. d/w Medicine Resident Medical Decision Making Medical Decision Making: intractable n/v, ? seizures (pt awake and NOT post-ictal after "seizure" and ativan bolus) elev bp may be related to gabrielle w/d as pt on extensive benzo regimen Disposition Doctor Will See Patient In The: Hospital Counseled Patient/Family Regarding: Studies Performed, Diagnosis - Disposition Disposition: HOSPITALIZED Disposition Time: 21:52 Condition: GOOD - Clinical Impression Clinical Impression: Tonic-clonic seizure, Benzodiazepine withdrawal, Vomiting - Scribe Statement The provider has reviewed the documentation as recorded by the Monoibelvis Nguyen All medical record entries made by the Monoibelvis were at my direction and personally dictated by me. I have reviewed the chart and agree that the record accurately reflects my personal performance of the history, physical exam, medical decision making, and the department course for this patient. I have also personally directed, reviewed, and agree with the discharge instructions and disposition.
[2016-12-23 21:06] LABS: CHLORIDE 104 mmol/L (98-107); POTASSIUM 4.5 mmol/L (3.6-5.2); SODIUM 137 mmol/L (132-148)
[2016-12-23 21:08] LABS: BILIRUBIN,TOTAL 0.4 mg/dL (0.2-1.3); CARBON DIOXIDE 25 mmol/L (22-30); GFR AFRICAN-AMERICAN 38
[2016-12-23 21:09] LABS: ALB/GLOB RATIO 1.1 (1.0-2.1); ALKALINE PHOSPHATASE 108 U/L (38-126); ALT/SGPT 28 U/L (9-52); AST/SGOT 21 U/L (14-36); BLOOD UREA NITROGEN 20 mg/dL (7-17); CALCIUM 8.8 mg/dl (8.6-10.4); GLUCOSE,RANDOM 288 mg/dL (65-105); TOTAL PROTEIN 6.4 g/dL (6.3-8.3)
[2016-12-23 21:10] LABS: ALCOHOL SERUM < 10 mg/dl (0-10)
[2016-12-23 21:19] LABS: CARBAMAZEPINE < 3.0 ug/mL (4.0-12.0)
[2016-12-23 21:21] LABS: VALPROIC ACID < 10.0 ug/mL (50.0-100.0)
[2016-12-23] MEDS ORDERED: Labetalol 25mg/5ml Syringe IVP STA (21:49)
[2016-12-23] MEDS ORDERED: Labetalol 25mg/5ml Syringe ONE (22:02)
--- NOTE | 2016-12-24 01:14 | CP.PCM.HP ---
History of Present Illness - History of Present Illness History of Present Illness: CC: Abdominal Pain and Vomiting HPI: Patient is a 26 year old female with a past medical history of DM, HTN, seizure disorder, anemia, anxiety and depression who presented to the ED with complaints of nausea, vomiting, and abdominal pain. As per patient, her symptoms began yesterday morning and have not subsided. She states that she has been vomiting non-stop since the onset of her symptoms. Patient also states that she has been having episodes of seizures. Patient currently denies any fever, chills, chest pain, diarrhea and constipation but complains of abdominal pain, nausea and vomiting PMD: Dr. Peg Crook ([place]) PMHx: DM, Anemia, Anxiety, Depression, HTN, Seizures PSHx: Denies FHx: Maternal grandmother- unknown heart condition Medications: Norvasc 10mg PO daily, Vitamin B12 1,000mcg PO daily, Feosol 325mg PO BID, Hydralazine 12.5mg PO daily, Keppra 250mg PO BID, Lisinopril 20mg PO daily, Ativan 1mg PO Q6 PRN, Reglan 10mg PO Q8 PRN, Zoloft Allergies: NKDA Social Hx: Former smoker (quit 5yrs ago), former alcohol use (quit years ago), denies illicit drugs; lives with mother; unemployed Present on Admission - Present on Admission Any Indicators Present on Admission: No Review of Systems - Constitutional Constitutional: Headache, Weakness. absent: Chills, Fever - EENT Ears: Dizziness - Cardiovascular Cardiovascular: Lightheadedness. absent: Chest Pain, Chest Pain at Rest, Diaphoresis, Dyspnea, Palpitations - Respiratory Respiratory: Cough - Gastrointestinal Gastrointestinal: Abdominal Pain, Nausea, Vomiting. absent: Constipation, Diarrhea - Genitourinary Genitourinary: absent: Dysuria, Urinary Frequency, Urinary Urgency - Musculoskeletal Musculoskeletal: absent: Numbness, Tingling - Neurological Neurological: Dizziness, Headaches, Weakness. absent: Numbness, Tingling Past Patient History - Infectious Disease Hx of Infectious Diseases: None - Past Medical History & Family History Past Medical History?: Yes - Past Social History Smoking Status: Former Smoker - CARDIAC Hx Hypertension: Yes - PULMONARY Hx Respiratory Disorders: No - NEUROLOGICAL Hx Seizures: Yes - HEENT Hx HEENT Problems: Yes Other/Comment: blurred vision both eyes uses eyeglasses - RENAL Hx Chronic Kidney Disease: No - ENDOCRINE/METABOLIC Hx Endocrine Disorders: Yes (diabetes) Hx Diabetes Mellitus Type 1: Yes - HEMATOLOGICAL/ONCOLOGICAL Hx Anemia: Yes - INTEGUMENTARY Hx Dermatological Problems: No - MUSCULOSKELETAL/RHEUMATOLOGICAL Hx Musculoskeletal Disorders: Yes Hx Falls: Yes - GASTROINTESTINAL Hx Gastrointestinal Disorders: Yes Other/Comment: gastroparesis - GENITOURINARY/GYNECOLOGICAL Hx Genitourinary Disorders: No - PSYCHIATRIC Hx Anxiety: Yes Hx Depression: Yes Hx Substance Use: No - SURGICAL HISTORY Hx Surgeries: No - ANESTHESIA Hx Anesthesia: Yes Hx Anesthesia Reactions: No Hx Malignant Hyperthermia: No Meds Allergies/Adverse Reactions: Allergies Allergy/AdvReac Type Severity Reaction Status Date / Time No Known Allergies Allergy Verified 12/23/16 19:17 Physical Exam - Head Exam Head Exam: ATRAUMATIC - Eye Exam Eye Exam: EOMI, Normal appearance - Respiratory Exam Respiratory Exam: Clear to Auscultation Bilateral, NORMAL BREATHING PATTERN - Cardiovascular Exam Cardiovascular Exam: REGULAR RHYTHM, +S1, +S2 - GI/Abdominal Exam GI & Abdominal Exam: Normal Bowel Sounds, Soft, Tenderness - Extremities Exam Extremities exam: Negative for: calf tenderness, pedal edema - Neurological Exam Neurological exam: Alert, Oriented x3 - Psychiatric Exam Psychiatric exam: Agitated, Anxious - Skin Skin Exam: Normal Color, Warm Results - Vital Signs Recent Vital Signs: Last Vital Signs Temp 99.1 F 12/23/16 19:06 Pulse 117 H 12/24/16 00:45 Resp 14 12/24/16 00:45 BP 161/102 H 12/24/16 00:45 Pulse Ox 100 12/24/16 00:45 - Labs Result Diagrams: 12/23/16 20:49 12/23/16 20:49 Assessment & Plan (1) Abdominal pain with vomiting Assessment and Plan: Zofran 8mg PO Q8 PRN NS @ 70mls/hr Status: Acute (2) Seizure Assessment and Plan: Continue home medication: * Keppra 750mg PO BID ( Strength from 250mg PO to 750mg PO on last admission by Dr. Cruz * Seizure precaution Status: Chronic (3) HTN (hypertension) Assessment and Plan: Nifedipine 30mg PO daily Norvasc 10mg PO daily Lisinopril 20mg PO daily ---- Held due to GABRIELA Hydralazine 12.5mg PO daily Monitor with vital checks Status: Acute (4) Gastroparesis Assessment and Plan: Home medication: * Reglan 5mg PO QID Status: Acute (5) Diabetes mellitus Assessment and Plan: Accuchecks Lantus 17 units SC HS Novolog 7 units TIDAC Insulin sliding scale Monitor Status: Chronic (6) Acute kidney injury Assessment and Plan: On admission: BUN/CR: 20/1.9 GFR: 32 NS@ 70MLS/HR Status: Acute (7) Anemia Assessment and Plan: Stable H/H: 11.7/33.7 Continue home medications: * Fesol 325mg PO BID * Vitamin B12 1,000mcg PO daily * Monitor with daily CBC Status: Chronic (8) Prophylactic measure Assessment and Plan: Scds Pepcid 20mg PO BID Heparin 5,000 units SC q8H Status: Acute
[2016-12-24] MEDS: NIFEdipine 30 mg ER Tab PO SCH ×2 (01:30→10:58)
[2016-12-24 03:11] LABS: RBC URINE 2 /hpf (0-3); URINE BACTERIA OCC (<OCC); URINE BILIRUBIN NEGATIVE (NEGATIVE); URINE BLOOD NEGATIVE (NEGATIVE); URINE COLOR Yellow (YELLOW); URINE GLUCOSE (UA) 3+ mg/dL (Normal); URINE KETONE TRACE mg/dL (NEGATIVE); URINE LEUKOCYTE ESTERASE NEG Leu/uL (Negative); URINE PROTEIN 3+ mg/dL (NEGATIVE); URINE UROBILINOGEN NORMAL mg/dL (0.2-1.0); WBC URINE 4 /hpf (0-5)
[2016-12-24] MEDS ORDERED: DiphenhydrAMINE 50 mg/ml Inj IVP STA (03:48)
[2016-12-24] MEDS: (Novolog) Insulin Aspart, Recombinant 100 u/ml 10 ml vial SC SCH ×4 (07:00→22:08)
[2016-12-24] MEDS: Sodium Chloride 0.9% 1,000 ML IV SCH ×2 (08:45→22:08)
--- NOTE | 2016-12-24 09:57 | CP.PCM.PN ---
<Mary Grace Toro - Last Filed: 12/25/16 15:54> Subjective - Date & Time of Evaluation Date of Evaluation: 12/24/16 Time of Evaluation: 07:00 - Subjective Subjective: PGY1- Medicine Note- Dr. King's Service Patient seen and examined at bedside extremely anxious. Today patient complains that her zofran isn't helping with her vomiting. Patient was sitting up in bed when I arrived and began to shake when she spoke to me. She complains that she still has seizures and stated that she began to feel a seizure "coming on". She then laid down and began to shake for approximately 20 seconds with her eyes closed. There was no post-ictal state and patient was awake and talking immediately afterwards. Patient then complained of abdominal pain and asked for morphine to alleviate it. Patient denies headache, fevers, chills, SOB , chest pain, diarrhea, constipation. Objective - Vital Signs/Intake and Output Vital Signs (last 24 hours): Temp Pulse Resp BP Pulse Ox 98.0 F 120 H 20 157/90 H 97 12/24/16 07:35 12/24/16 03:36 12/24/16 07:35 12/24/16 03:30 12/24/16 07:35 - Medications Medications: Current Medications Amlodipine Besylate (Norvasc) 10 mg PO DAILY [facility] Cyanocobalamin (Vitamin B12 1000 Mcg Tab) 1,000 mcg PO DAILY [facility] Famotidine (Pepcid) 20 mg PO Q12H [facility] Ferrous Sulfate (Feosol) 325 mg PO BID [facility] Heparin Sodium (Porcine) (Heparin) 5,000 units SC Q8 [facility] Home Med (Insulin Lispro [Humalog Kwikpen U-100]) 7 unit SQ TID [facility] Hydralazine HCl (Apresoline) 12.5 mg PO DAILY [facility] Sodium Chloride (Sodium Chloride 0.9%) 1,000 mls @ 70 mls/hr IV .[id number] [facility] Insulin Aspart (Novolog) 0 unit SC ACHS [facility] PRN Reason: Protocol Last Admin: 12/24/16 07:00 Dose: 12 unit Insulin Glargine (Lantus) 17 unit SC HS [facility] Levetiracetam (Keppra) 750 mg PO BID [facility] Lisinopril (Zestril) 20 mg PO DAILY [facility] Lorazepam (Ativan) 1 mg IVP Q8H PRN PRN Reason: Seizure activity Metoclopramide HCl (Reglan) 5 mg PO 0600,1130,1630,2200 [facility] Nifedipine (Procardia Xl) 30 mg PO DAILY [facility] Last Admin: 12/24/16 01:30 Dose: 30 mg Ondansetron HCl (Zofran Odt) 8 mg PO Q8H PRN PRN Reason: Nausea/Vomiting Last Admin: 12/24/16 02:27 Dose: 8 mg - Constitutional Appears: Non-toxic, Agitated - Head Exam Head Exam: ATRAUMATIC, NORMAL INSPECTION, NORMOCEPHALIC - Eye Exam Eye Exam: EOMI, Normal appearance - ENT Exam ENT Exam: Mucous Membranes Moist - Neck Exam Neck Exam: Full ROM. absent: Tenderness - Respiratory Exam Respiratory Exam: Clear to Ausculation Bilateral, NORMAL BREATHING PATTERN. absent: Rales, Rhonchi, Wheezes, Respiratory Distress, Stridor - Cardiovascular Exam Cardiovascular Exam: REGULAR RHYTHM, RRR. absent: Gallop, Rubs, Murmur - GI/Abdominal Exam GI & Abdominal Exam: Soft, Tenderness, Normal Bowel Sounds - Extremities Exam Extremities Exam: Full ROM, Normal Inspection. absent: Pedal Edema - Neurological Exam Neurological Exam: Alert, Awake, Oriented x3 - Psychiatric Exam Psychiatric exam: Agitated, Anxious - Skin Skin Exam: Intact, Normal Color, Warm Assessment and Plan - Assessment and Plan (Free Text) Assessment: (1) Abdominal pain with vomiting Assessment and Plan: Zofran 8mg PO Q8 PRN NS @ 70mls/hr Status: Acute (2) Seizure Assessment and Plan: Continue home medication: * Keppra 750mg PO BID ( Strength from 250mg PO to 750mg PO on last admission by Dr. Cruz * Seizure precaution * Dr. Isak Keane, Status: Chronic (3) HTN (hypertension) Assessment and Plan: Nifedipine 30mg PO daily Norvasc 10mg PO daily Lisinopril 20mg PO daily ---- Held due to GABRIELA Hydralazine 12.5mg PO daily Monitor with vital checks Status: Acute (4) Gastroparesis Assessment and Plan: Home medication: * Reglan 5mg PO QID Status: Acute (5) Diabetes mellitus Assessment and Plan: Accuchecks Lantus 17 units SC HS Novolog 7 units TIDAC Insulin sliding scale Monitor Status: Chronic (6) Acute kidney injury Assessment and Plan: On admission: BUN/CR: 20/1.9 GFR: 32 NS@ 70MLS/HR Status: Acute (7) Anemia Assessment and Plan: Stable H/H: 11.7/33.7 Continue home medications: * Fesol 325mg PO BID * Vitamin B12 1,000mcg PO daily * Monitor with daily CBC Status: Chronic (8) Prophylactic measure Assessment and Plan: Scds Pepcid 20mg PO BID Heparin 5,000 units SC q8H Status: Acute <Reza King Jr. - Last Filed: 12/27/16 10:44> Objective - Vital Signs/Intake and Output Vital Signs (last 24 hours): Temp Pulse Resp BP Pulse Ox 98.3 F 93 H 20 149/96 H 98 12/27/16 08:00 12/27/16 08:00 12/27/16 08:00 12/27/16 08:00 12/27/16 08:00 Intake and Output: 12/27/16 12/27/16 06:59 18:59 Intake Total 560 Balance 560 - Medications Medications: Current Medications Cyanocobalamin (Vitamin B12 1000 Mcg Tab) 1,000 mcg PO DAILY [facility] Last Admin: 12/27/16 09:39 Dose: 1,000 mcg Famotidine (Pepcid) 20 mg PO DAILY [facility] Last Admin: 12/27/16 09:38 Dose: 20 mg Ferric Sodium Gluconate Complex (Ferrlecit) 125 mg IVPB DAILY [facility] Stop: 01/04/17 10:01 Last Admin: 12/27/16 09:42 Dose: 125 mg Ferrous Sulfate (Feosol) 325 mg PO BID [facility] Last Admin: 12/26/16 17:45 Dose: Not Given Heparin Sodium (Porcine) (Heparin) 5,000 units SC Q8 [facility] Last Admin: 12/27/16 06:02 Dose: 5,000 units Sodium Chloride (Sodium Chloride 0.9%) 1,000 mls @ 70 mls/hr IV .[id number] [facility] Last Admin: 12/27/16 09:43 Dose: 70 mls/hr Levetiracetam 750 mg/ Sodium (Chloride) 107.5 mls @ 420 mls/hr IVPB Q12H [facility] Last Admin: 12/27/16 07:05 Dose: 420 mls/hr Insulin Aspart (Novolog) 0 unit SC ACHS [facility] PRN Reason: Protocol Last Admin: 12/26/16 21:34 Dose: Not Given Insulin Glargine (Lantus) 17 unit SC HS [facility] Last Admin: 12/26/16 21:48 Dose: 17 unit Lisinopril (Zestril) 20 mg PO DAILY [facility] Lorazepam (Ativan) 1 mg IVP Q8H PRN PRN Reason: Seizure activity Last Admin: 12/26/16 16:50 Dose: 1 mg Metoclopramide HCl (Reglan) 5 mg PO 0600,1130,1630,2200 [facility] Last Admin: 12/27/16 06:02 Dose: 5 mg Nifedipine (Procardia Xl) 30 mg PO DAILY [facility] Last Admin: 12/27/16 09:39 Dose: 30 mg Ondansetron HCl (Zofran Inj) 4 mg IVP Q6H PRN PRN Reason: Nausea/Vomiting - Labs Labs: 12/27/16 08:18 12/27/16 08:18 Attending/Attestation - Attestation I have personally seen and examined this patient.: Yes I have fully participated in the care of the patient.: Yes I have reviewed all pertinent clinical information, including history, physical exam and plan: Yes Notes (Text): 12/27/16 10:44 Agree with resident note and plan of care
[2016-12-24] MEDS ORDERED: INSULIN LISPRO 7 UNIT SQ SCH (10:00)
[2016-12-24 11:48] LABS: ALB/GLOB RATIO 0.9 (1.0-2.1); BILIRUBIN,TOTAL 0.3 mg/dL (0.2-1.3); CALCIUM 8.9 mg/dl (8.6-10.4); POTASSIUM 3.9 mmol/L (3.6-5.2)
[2016-12-24 14:04] LABS: BASO # 0.1 K/uL (0.0-0.2); BASO % 0.7 % (0.0-2.0); HEMATOCRIT 29.9 % (34.0-47.0); LYMPH # 1.1 K/uL (1.0-4.3); LYMPH % 9.5 % (20.0-40.0); MEAN CELL VOLUME 85.5 fL (81.0-99.0); MEAN CORPUSCULAR HEMOGLOBIN 27.4 pg (27.0-31.0); MEAN CORPUSCULAR HGB CONC 32.1 g/dL (33.0-37.0); MEAN PLATELET VOLUME 10.8 fL (7.2-11.7); MONO # 0.7 K/uL (0.0-0.8); MONO % 5.8 % (0.0-10.0); PLATELET COUNT 309 K/uL (130-400); RED CELL DISTRIBUTION WIDTH 14.8 % (11.5-14.5); WHITE BLOOD COUNT 11.5 K/uL (4.8-10.8)
[2016-12-24 14:51] LABS: BASOPHIL 1 % (0-2); NEUTROPHIL 86 % (50-75); TOTAL CELLS COUNTED 100
[2016-12-24] MEDS: (Lantus) Insulin Glargine, Recombinant SC SCH (22:08)
[2016-12-25] MEDS: (Novolog) Insulin Aspart, Recombinant 100 u/ml 10 ml vial SC SCH ×4 (07:48→21:46)
[2016-12-25 08:18] LABS: BASO # 0.1 K/uL (0.0-0.2); EOS # 0.1 K/uL (0.0-0.7); EOS % 1.5 % (0.0-4.0); LYMPH # 3.2 K/uL (1.0-4.3); LYMPH % 37.7 % (20.0-40.0); MEAN CELL VOLUME 84.7 fL (81.0-99.0); MEAN CORPUSCULAR HEMOGLOBIN 27.6 pg (27.0-31.0); MEAN CORPUSCULAR HGB CONC 32.6 g/dL (33.0-37.0); MEAN PLATELET VOLUME 10.1 fL (7.2-11.7); MONO # 0.4 K/uL (0.0-0.8); MONO % 5.2 % (0.0-10.0); NRBC % 0.1 % (0.0-2.0); RED CELL DISTRIBUTION WIDTH 14.4 % (11.5-14.5); WHITE BLOOD COUNT 8.6 K/uL (4.8-10.8)
[2016-12-25 08:32] LABS: ALB/GLOB RATIO 0.9 (1.0-2.1); BILIRUBIN,TOTAL 0.2 mg/dL (0.2-1.3); CALCIUM 8.4 mg/dl (8.6-10.4); MAGNESIUM 2.3 mg/dL (1.6-2.3); PHOSPHOROUS 3.9 mg/dL (2.5-4.5); POTASSIUM 3.6 mmol/L (3.6-5.2); TOTAL PROTEIN 5.4 g/dL (6.3-8.3)
[2016-12-25] MEDS: NIFEdipine 30 mg ER Tab PO SCH (09:27)
[2016-12-25] MEDS: Sodium Chloride 0.9% 1,000 ML IV SCH (16:11)
--- NOTE | 2016-12-25 17:02 | CP.PCM.PN ---
<Mary Grace Toro - Last Filed: 12/25/16 16:59> Subjective - Date & Time of Evaluation Date of Evaluation: 12/25/16 Time of Evaluation: 07:00 - Subjective Subjective: PGY1- Medicine Note- Dr. King's service Patient seen and examined at bedside and in no acute distress. Patient has had no vomiting today. Patient denies chest pain, shortness of breath, abdominal pain, n/v, d/c. Objective - Vital Signs/Intake and Output Vital Signs (last 24 hours): Temp Pulse Resp BP Pulse Ox 98.3 F 86 20 95/58 L 98 12/25/16 16:12 12/25/16 16:12 12/25/16 16:12 12/25/16 16:12 12/25/16 16:12 Intake and Output: 12/25/16 12/25/16 06:59 18:59 Intake Total 500 Balance 500 - Medications Medications: Current Medications Amlodipine Besylate (Norvasc) 10 mg PO DAILY [facility] Last Admin: 12/25/16 09:23 Dose: 10 mg Cyanocobalamin (Vitamin B12 1000 Mcg Tab) 1,000 mcg PO DAILY [facility] Last Admin: 12/25/16 09:22 Dose: 1,000 mcg Famotidine (Pepcid) 20 mg PO DAILY [facility] Last Admin: 12/25/16 09:23 Dose: 20 mg Ferrous Sulfate (Feosol) 325 mg PO BID [facility] Last Admin: 12/25/16 09:22 Dose: 325 mg Heparin Sodium (Porcine) (Heparin) 5,000 units SC Q8 [facility] Last Admin: 12/25/16 13:39 Dose: 5,000 units Hydralazine HCl (Apresoline) 12.5 mg PO DAILY [facility] Last Admin: 12/25/16 09:23 Dose: 12.5 mg Sodium Chloride (Sodium Chloride 0.9%) 1,000 mls @ 70 mls/hr IV .[id number] [facility] Last Admin: 12/25/16 16:11 Dose: Not Given Insulin Aspart (Novolog) 0 unit SC ACHS [facility] PRN Reason: Protocol Last Admin: 12/25/16 12:19 Dose: 4 unit Insulin Glargine (Lantus) 17 unit SC HS [facility] Last Admin: 12/24/16 22:08 Dose: 17 unit Levetiracetam (Keppra) 750 mg PO BID [facility] Last Admin: 12/25/16 09:22 Dose: 750 mg Lisinopril (Zestril) 20 mg PO DAILY [facility] Lorazepam (Ativan) 1 mg IVP Q8H PRN PRN Reason: Seizure activity Last Admin: 12/25/16 08:28 Dose: 1 mg Metoclopramide HCl (Reglan) 5 mg PO 0600,1130,1630,2200 [facility] Last Admin: 12/25/16 12:20 Dose: 5 mg Nifedipine (Procardia Xl) 30 mg PO DAILY [facility] Last Admin: 12/25/16 09:27 Dose: 30 mg Ondansetron HCl (Zofran Odt) 8 mg PO Q8H PRN PRN Reason: Nausea/Vomiting Last Admin: 12/24/16 02:27 Dose: 8 mg - Labs Labs: 12/25/16 08:11 12/25/16 08:11 - Constitutional Appears: Non-toxic, No Acute Distress - Head Exam Head Exam: ATRAUMATIC, NORMAL INSPECTION, NORMOCEPHALIC - Eye Exam Eye Exam: EOMI, Normal appearance - ENT Exam ENT Exam: Mucous Membranes Moist - Respiratory Exam Respiratory Exam: Clear to Ausculation Bilateral, NORMAL BREATHING PATTERN. absent: Rales, Rhonchi, Wheezes, Respiratory Distress, Stridor - Cardiovascular Exam Cardiovascular Exam: REGULAR RHYTHM, RRR. absent: Gallop, Rubs, Murmur - GI/Abdominal Exam GI & Abdominal Exam: Soft, Normal Bowel Sounds - Extremities Exam Extremities Exam: Full ROM, Normal Inspection - Neurological Exam Neurological Exam: Alert, Awake, Oriented x3 - Psychiatric Exam Psychiatric exam: Normal Affect, Normal Mood - Skin Skin Exam: Intact, Normal Color, Warm Assessment and Plan - Assessment and Plan (Free Text) Assessment: (1) Abdominal pain with vomiting Assessment and Plan: Zofran 8mg PO Q8 PRN NS @ 70mls/hr Status: Acute (2) Seizure Assessment and Plan: Continue home medication: * Keppra 750mg PO BID ( Strength from 250mg PO to 750mg PO on last admission by Dr. Cruz * Seizure precaution * Dr. Isak Kaene, Status: Chronic (3) HTN (hypertension) Assessment and Plan: Nifedipine 30mg PO daily Norvasc 10mg PO daily Lisinopril 20mg PO daily ---- Held due to GABRIELA Hydralazine 12.5mg PO daily Monitor with vital checks Status: Acute (4) Gastroparesis Assessment and Plan: Home medication: * Reglan 5mg PO QID Status: Acute (5) Diabetes mellitus Assessment and Plan: Accuchecks Lantus 17 units SC HS Novolog 7 units TIDAC Insulin sliding scale Monitor Status: Chronic (6) Acute kidney injury Assessment and Plan: On admission: BUN/CR: 20/1.9 GFR: 32 NS@ 70MLS/HR Status: Acute (7) Anemia Assessment and Plan: Stable H/H: 11.7/33.7 Continue home medications: * Fesol 325mg PO BID * Vitamin B12 1,000mcg PO daily * Monitor with daily CBC Status: Chronic (8) Prophylactic measure Assessment and Plan: Scds Pepcid 20mg PO BID Heparin 5,000 units SC q8H Status: Acute <Reza King Jr. - Last Filed: 12/27/16 10:45> Objective - Vital Signs/Intake and Output Vital Signs (last 24 hours): Temp Pulse Resp BP Pulse Ox 98.3 F 93 H 20 149/96 H 98 12/27/16 08:00 12/27/16 08:00 12/27/16 08:00 12/27/16 08:00 12/27/16 08:00 Intake and Output: 12/27/16 12/27/16 06:59 18:59 Intake Total 560 Balance 560 - Medications Medications: Current Medications Cyanocobalamin (Vitamin B12 1000 Mcg Tab) 1,000 mcg PO DAILY [facility] Last Admin: 12/27/16 09:39 Dose: 1,000 mcg Famotidine (Pepcid) 20 mg PO DAILY [facility] Last Admin: 12/27/16 09:38 Dose: 20 mg Ferric Sodium Gluconate Complex (Ferrlecit) 125 mg IVPB DAILY [facility] Stop: 01/04/17 10:01 Last Admin: 12/27/16 09:42 Dose: 125 mg Ferrous Sulfate (Feosol) 325 mg PO BID [facility] Last Admin: 12/26/16 17:45 Dose: Not Given Heparin Sodium (Porcine) (Heparin) 5,000 units SC Q8 [facility] Last Admin: 12/27/16 06:02 Dose: 5,000 units Sodium Chloride (Sodium Chloride 0.9%) 1,000 mls @ 70 mls/hr IV .[id number] [facility] Last Admin: 12/27/16 09:43 Dose: 70 mls/hr Levetiracetam 750 mg/ Sodium (Chloride) 107.5 mls @ 420 mls/hr IVPB Q12H [facility] Last Admin: 12/27/16 07:05 Dose: 420 mls/hr Insulin Aspart (Novolog) 0 unit SC ACHS [facility] PRN Reason: Protocol Last Admin: 12/26/16 21:34 Dose: Not Given Insulin Glargine (Lantus) 17 unit SC HS [facility] Last Admin: 12/26/16 21:48 Dose: 17 unit Lisinopril (Zestril) 20 mg PO DAILY [facility] Lorazepam (Ativan) 1 mg IVP Q8H PRN PRN Reason: Seizure activity Last Admin: 12/26/16 16:50 Dose: 1 mg Metoclopramide HCl (Reglan) 5 mg PO 0600,1130,1630,2200 [facility] Last Admin: 12/27/16 06:02 Dose: 5 mg Nifedipine (Procardia Xl) 30 mg PO DAILY [facility] Last Admin: 12/27/16 09:39 Dose: 30 mg Ondansetron HCl (Zofran Inj) 4 mg IVP Q6H PRN PRN Reason: Nausea/Vomiting - Labs Labs: 12/27/16 08:18 12/27/16 08:18 Attending/Attestation - Attestation I have personally seen and examined this patient.: Yes I have fully participated in the care of the patient.: Yes I have reviewed all pertinent clinical information, including history, physical exam and plan: Yes Notes (Text): 12/27/16 10:44 Agree with resident note and plan of care
--- NOTE | 2016-12-25 18:10 | CARD ---
APPROVED REPORT EKG Measurement Heart [id number] <Conclusion> Sinus tachycardia prolonged QTc interval otherwise normal ECG
[2016-12-25] MEDS: (Lantus) Insulin Glargine, Recombinant SC SCH (22:14)
[2016-12-26] MEDS: Sodium Chloride 0.9% 1,000 ML IV SCH ×2 (01:51→20:28)
--- NOTE | 2016-12-26 07:43 | CON ---
DATE: 12/25/2016 NEUROLOGY CONSULT CHIEF COMPLAINT: Questionable seizure. HISTORY OF PRESENT ILLNESS: This 26-year-old woman with history of type 1 diabetes, hypertension, history of questionable seizure disorder in the past, anemia, anxiety, and depression, presented to the hospital for abdominal pain, nausea, and vomiting, is being worked up and being managed, found to have gastroparesis secondary to diabetes, was consulted for seizure. She had a questionable shaking episode where she was closing her eyes and also but after a few seconds, she was talking, awake, and remembered the episode. She says she has been extremely stressed and has been average of 3 to 4 hours of sleep, been stressed of not having a job and been depressed with her medical conditions. No focal weakness. No history of meningitis. Her previous 2 EEGs in this year have been normal as well as MRI of the brain in October 2016 was unremarkable for any acute intracranial abnormalities. Currently, she is laying down and sleeping with no issues. PAST MEDICAL HISTORY: Type 1 diabetes, anemia, anxiety, depression. History of hypertension. History of possible seizures. PAST SURGICAL HISTORY: Denies any surgical issues. FAMILY HISTORY: Maternal grandmother had unknown heart condition. MEDICATION: Reviewed via nurse reconciliation sheet. ALLERGIES: NO KNOWN DRUG ALLERGIES. SOCIAL HISTORY: No illicit drug use, smoking or EtOH abuse. PHYSICAL EXAMINATION: VITAL SIGNS: Temperature 98.4, pulse rate 86, blood pressure 131/86, respiratory rate of 20, oxygen saturation 97% via room air. GENERAL: The patient has a very flat affect and depressed looking. HEENT: Atraumatic and normocephalic. PERRLA. Extraocular muscles are intact. NECK: Supple. No JVD. No adenopathy noted. LUNGS: Clear to auscultation. No adventitious sounds. HEART: S1 and S2, normal rate and rhythm. No murmurs, rubs, or gallops. ABDOMEN: Soft, nontender, and nondistended. Bowel sounds are present. EXTREMITIES: No clubbing. No cyanosis. Peripheral pulses are 2+ felt bilaterally. NEUROLOGIC: The patient is alert and oriented to person, place, month, and year. Speech is fluent without any errors. Cranial nerves II through XII are intact. Motor exam: Moves all extremities equally. No pronator drift seen. Sensory exam: Light touch, pinprick, proprioception and vibration are intact with slight decreased vibration of the toes. DTRs are 2+ throughout. Coordination: [id number] intact. Gait is deferred for now. LABORATORY DATA: Sodium is 134, potassium 3.6, chloride 99, carbon dioxide 25, BUN of 22, creatinine 2.2, random glucose of 126. ASSESSMENT AND PLAN: This is a 26-year-old woman with history of type 1 diabetes, hypertension, history of questionable seizures in the past, history of anxiety and depression, who had seizure like activity, though remembers the events but no postictal phenomena. I feel like her seizures are more of secondary to sleep deprivation as well as more of a psuedoseizure/nonepileptic from underlying increasing anxiety and depression. At this time, she had MRI of the brain in 10/2016 which was unremarkable for any source of abnormalities this year which were completely normal. I, therefore, feel that: 1. She should have a psychiatric evaluation inpatient or as an outpatient for underlying anxiety and depression. 2. Sleep hygiene advised, needs proper routine. 3. Can reduce the Keppra actually from 750 to 500 p.o. b.i.d. due to sedative and behavioral side effects. 4. Continue management for underlying abdominal pain and diabetes, and keep her fasting blood sugars between 140 to 180. No further neurological workup needed at this time. She is clinically stable from my standpoint. She can follow up with us on an outpatient basis. Thank you for this consult. David Keane MD
[2016-12-26] MEDS: (Novolog) Insulin Aspart, Recombinant 100 u/ml 10 ml vial SC SCH ×4 (07:56→21:34)
--- NOTE | 2016-12-26 09:44 | CP.PCM.PN ---
<Mary Grace Toro - Last Filed: 12/26/16 15:40> Subjective - Date & Time of Evaluation Date of Evaluation: 12/26/16 Time of Evaluation: 07:00 - Subjective Subjective: PGY1- Medicine Note- Dr. King's Service Patient seen and examined at bedside. Complains of some nausea that began last night after she accidentally drank some hot water. Grecia mana helps to alleviate any nausea. She had 2 episodes of vomiting up water this morning. Had BM and urinated since yesterday. Able to tolerate PO without vomiting, although eating upsets her stomach. Patient complains of epigastric and RUQ abdominal pain white started this morning. Patient denies any diarrhea, constipation, problems urinating, fevers, or chills. Objective - Vital Signs/Intake and Output Vital Signs (last 24 hours): Temp Pulse Resp BP Pulse Ox 97.9 F 89 18 136/88 98 12/25/16 23:17 12/26/16 01:00 12/25/16 23:17 12/25/16 23:17 12/25/16 23:17 - Medications Medications: Current Medications Cyanocobalamin (Vitamin B12 1000 Mcg Tab) 1,000 mcg PO DAILY [facility] Last Admin: 12/25/16 09:22 Dose: 1,000 mcg Famotidine (Pepcid) 20 mg PO DAILY [facility] Last Admin: 12/25/16 09:23 Dose: 20 mg Ferrous Sulfate (Feosol) 325 mg PO BID [facility] Last Admin: 12/25/16 18:14 Dose: 325 mg Heparin Sodium (Porcine) (Heparin) 5,000 units SC Q8 [facility] Last Admin: 12/26/16 06:03 Dose: 5,000 units Sodium Chloride (Sodium Chloride 0.9%) 1,000 mls @ 70 mls/hr IV .[id number] [facility] Last Admin: 12/26/16 01:51 Dose: Not Given Insulin Aspart (Novolog) 0 unit SC ACHS [facility] PRN Reason: Protocol Last Admin: 12/26/16 07:56 Dose: Not Given Insulin Glargine (Lantus) 17 unit SC HS [facility] Last Admin: 12/25/16 22:14 Dose: 17 unit Levetiracetam (Keppra) 750 mg PO BID [facility] Last Admin: 09/07/17 18:14 Dose: 750 mg Lisinopril (Zestril) 20 mg PO DAILY [facility] Lorazepam (Ativan) 1 mg IVP Q8H PRN PRN Reason: Seizure activity Last Admin: 12/25/16 08:28 Dose: 1 mg Metoclopramide HCl (Reglan) 5 mg PO 0600,1130,1630,2200 [facility] Last Admin: 12/26/16 06:03 Dose: 5 mg Nifedipine (Procardia Xl) 30 mg PO DAILY [facility] Last Admin: 12/25/16 09:27 Dose: 30 mg Ondansetron HCl (Zofran Odt) 8 mg PO Q8H PRN PRN Reason: Nausea/Vomiting Last Admin: 12/24/16 02:27 Dose: 8 mg - Labs Labs: 12/25/16 08:11 12/25/16 08:11 - Constitutional Appears: Non-toxic, No Acute Distress - Head Exam Head Exam: ATRAUMATIC, NORMAL INSPECTION, NORMOCEPHALIC - Eye Exam Eye Exam: EOMI, Normal appearance - ENT Exam ENT Exam: Mucous Membranes Moist - Neck Exam Neck Exam: Full ROM, Tenderness - Respiratory Exam Respiratory Exam: Clear to Ausculation Bilateral, NORMAL BREATHING PATTERN. absent: Rales, Rhonchi, Wheezes, Respiratory Distress, Stridor - Cardiovascular Exam Cardiovascular Exam: REGULAR RHYTHM, RRR. absent: Gallop, Rubs, Murmur - GI/Abdominal Exam GI & Abdominal Exam: Guarding, Soft, Tenderness, Normal Bowel Sounds - Extremities Exam Extremities Exam: Full ROM, Normal Inspection - Neurological Exam Neurological Exam: Alert, Awake, Oriented x3 - Psychiatric Exam Psychiatric exam: Normal Affect, Normal Mood - Skin Skin Exam: Intact, Normal Color, Warm Assessment and Plan - Assessment and Plan (Free Text) Assessment: (1) Abdominal pain with vomiting Assessment and Plan: Zofran 8mg PO Q8 PRN NS @ 70mls/hr RUQ pain on 12/26, f/u abdominal u/s Status: Acute (2) Seizure Assessment and Plan: Continue home medication: * Keppra 750mg PO BID ( Strength from 250mg PO to 750mg PO on last admission by Dr. Cruz * Seizure precaution * Dr. Isak Keane, Status: Chronic (3) HTN (hypertension) Assessment and Plan: Nifedipine 30mg PO daily Lisinopril 20mg PO daily ---- Held due to GABRIELA Monitor with vital checks Status: Acute (4) Gastroparesis Assessment and Plan: Home medication: * Reglan 5mg PO QID Status: Acute (5) Diabetes mellitus Assessment and Plan: Accuchecks Lantus 17 units SC HS Novolog 7 units TIDAC Insulin sliding scale Monitor Status: Chronic (6) Acute kidney injury Assessment and Plan: On admission: BUN/CR: 20/1.9 GFR: 32 NS@ 70MLS/HR Status: Acute (7) Anemia Assessment and Plan: Stable H/H: 11.7/33.7 Continue home medications: * Fesol 325mg PO BID * Vitamin B12 1,000mcg PO daily * Monitor with daily CBC Status: Chronic (8) Prophylactic measure Assessment and Plan: Scds Pepcid 20mg PO BID Heparin 5,000 units SC q8H Status: Acute <Reza King Jr. - Last Filed: 12/27/16 10:48> Objective - Vital Signs/Intake and Output Vital Signs (last 24 hours): Temp Pulse Resp BP Pulse Ox 98.3 F 93 H 20 149/96 H 98 12/27/16 08:00 12/27/16 08:00 12/27/16 08:00 12/27/16 08:00 12/27/16 08:00 Intake and Output: 12/27/16 12/27/16 06:59 18:59 Intake Total 560 Balance 560 - Medications Medications: Current Medications Cyanocobalamin (Vitamin B12 1000 Mcg Tab) 1,000 mcg PO DAILY [facility] Last Admin: 12/27/16 09:39 Dose: 1,000 mcg Famotidine (Pepcid) 20 mg PO DAILY [facility] Last Admin: 12/27/16 09:38 Dose: 20 mg Ferric Sodium Gluconate Complex (Ferrlecit) 125 mg IVPB DAILY [facility] Stop: 01/04/17 10:01 Last Admin: 12/27/16 09:42 Dose: 125 mg Ferrous Sulfate (Feosol) 325 mg PO BID [facility] Last Admin: 12/26/16 17:45 Dose: Not Given Heparin Sodium (Porcine) (Heparin) 5,000 units SC Q8 [facility] Last Admin: 12/27/16 06:02 Dose: 5,000 units Sodium Chloride (Sodium Chloride 0.9%) 1,000 mls @ 70 mls/hr IV .[id number] [facility] Last Admin: 12/27/16 09:43 Dose: 70 mls/hr Levetiracetam 750 mg/ Sodium (Chloride) 107.5 mls @ 420 mls/hr IVPB Q12H [facility] Last Admin: 12/27/16 07:05 Dose: 420 mls/hr Insulin Aspart (Novolog) 0 unit SC ACHS [facility] PRN Reason: Protocol Last Admin: 12/26/16 21:34 Dose: Not Given Insulin Glargine (Lantus) 17 unit SC HS [facility] Last Admin: 12/26/16 21:48 Dose: 17 unit Lisinopril (Zestril) 20 mg PO DAILY [facility] Lorazepam (Ativan) 1 mg IVP Q8H PRN PRN Reason: Seizure activity Last Admin: 12/26/16 16:50 Dose: 1 mg Metoclopramide HCl (Reglan) 5 mg PO 0600,1130,1630,2200 [facility] Last Admin: 12/27/16 06:02 Dose: 5 mg Nifedipine (Procardia Xl) 30 mg PO DAILY [facility] Last Admin: 12/27/16 09:39 Dose: 30 mg Ondansetron HCl (Zofran Inj) 4 mg IVP Q6H PRN PRN Reason: Nausea/Vomiting - Labs Labs: 12/27/16 08:18 12/27/16 08:18 Attending/Attestation - Attestation I have personally seen and examined this patient.: Yes I have fully participated in the care of the patient.: Yes I have reviewed all pertinent clinical information, including history, physical exam and plan: Yes Notes (Text): 12/27/16 10:47 Agree with resident note and plan of care
[2016-12-26 11:44] LABS: BASO # 0.1 K/uL (0.0-0.2); BASO % 1.5 % (0.0-2.0); EOS # 0.1 K/uL (0.0-0.7); EOS % 2.1 % (0.0-4.0); HEMATOCRIT 32.9 % (34.0-47.0); LYMPH # 2.3 K/uL (1.0-4.3); LYMPH % 35.7 % (20.0-40.0); MEAN CELL VOLUME 84.9 fL (81.0-99.0); MEAN CORPUSCULAR HEMOGLOBIN 27.8 pg (27.0-31.0); MEAN CORPUSCULAR HGB CONC 32.8 g/dL (33.0-37.0); MEAN PLATELET VOLUME 9.5 fL (7.2-11.7); MONO # 0.4 K/uL (0.0-0.8); MONO % 6.4 % (0.0-10.0); RED CELL DISTRIBUTION WIDTH 14.7 % (11.5-14.5); WHITE BLOOD COUNT 6.5 K/uL (4.8-10.8)
[2016-12-26 12:01] LABS: POTASSIUM 4.3 mmol/L (3.6-5.2)
[2016-12-26 12:03] LABS: BILIRUBIN,TOTAL 0.4 mg/dL (0.2-1.3); PHOSPHOROUS 4.1 mg/dL (2.5-4.5); TOTAL PROTEIN 5.8 g/dL (6.3-8.3)
[2016-12-26 12:04] LABS: CALCIUM 8.2 mg/dl (8.6-10.4); MAGNESIUM 2.3 mg/dL (1.6-2.3)
[2016-12-26] MEDS: NIFEdipine 30 mg ER Tab PO SCH (16:01)
--- NOTE | 2016-12-26 17:42 | PCM.RRT ---
<BobbyMelita Maria LuisaTabby - Last Filed: 12/26/16 18:25> RADIO COMMENTATOR Nurses Assessment - Situation RADIO COMMENTATOR Responder Arrival Time: 17:10 Location: Ultrasound RADIO COMMENTATOR Reason for Call: Change in Mental Status RADIO COMMENTATOR Called By: Other Disciplines (ultrasound technitian ) - Respiratory Oxygen Delivery Method: Room Air - [place] Coma Scale Coma Scale Eye Opening: To verbal stimuli - Constitutional Appears: Chronically Ill - Head Head Exam: ATRAUMATIC, NORMAL INSPECTION, NORMOCEPHALIC - Respiratory Exam Respiratory Exam: NORMAL BREATHING PATTERN - Cardiovascular Exam Cardiovascular Exam: Tachycardia, REGULAR RHYTHM, +S1, +S2 - Neurological Exam Neurological Exam: absent: Alert, Awake, Oriented x3 Plan - Assessment of Findings&Treatment Plan Rapid Response was called at 17:10 by the ultrasound technologist sonographer because she stated the patient seemed to have a seizure. Vitals: B/P 173/103; HR 100; glucose: 269. Patient was responsive to voice commands to open eyes. Patient was not alert. 2mg of Ativan were given. Phenytoin levels, Keppra levels, procalcitonin levels were ordered. Patient was stabilized and transferred back to . Dr. King was notified of the rapid response. <Chilo Sands - Last Filed: 12/27/16 07:57> Attending/Attestation - Attestation I have personally seen and examined this patient.: Yes I have fully participated in the care of the patient.: Yes I have reviewed all pertinent clinical information, including history, physical exam and plan: Yes Notes (Text): Medical hospitalist: Patient was seen and examined during a rapid response in the ultrasound suite. She is pending an abdominal ultrasound which was almost completed by the time the patient had RADIO COMMENTATOR. The tachycardia was present in the room explained that the patient turned her side and appeared to have altered mental status and shortly thereafter began having generalized body shakes. By the time we came and saw the patient during RADIO COMMENTATOR she was awake. She did follow some simple commands however she appeared to be very drowsy likely in a postictal period. We had her turn to her side, I tried to ask if she remembered her name she was at however shortly thereafter her eyes rolled back and she had another. About 1 minute of shaking. She is probably given 1 mg of Ativan, Accu-Chek showed that her sugar was stable. SPO2 stable. The blood pressure was higher as well. Before brining up to the floor she was given additional ativan IV thank you, Chilo Sands
--- NOTE | 2016-12-26 18:29 | US ---
HISTORY: RUQ pain COMPARISON: 10/23/2016 TECHNIQUE: Grayscale imaging was performed. FINDINGS: LIVER: Measures 15.3 cm. There is mild diffuse increased echogenicity of the liver parenchyma. No mass. No intrahepatic bile duct dilatation. COMMON BILE DUCT: Measures 3.3 mm. No stones. No dilatation. OTHER FINDINGS: None. IMPRESSION: Diffuse increased echogenicity in the liver may reflect hepatic steatosis however parenchymal infectious/ inflammatory etiologies cannot be entirely excluded. Clinical and laboratory correlation is advised. The gallbladder, spleen, pancreas and kidneys as well as retroperitoneum were not examined as the patient developed seizures during examination and rapid response was called.
[2016-12-26] MEDS: (Lantus) Insulin Glargine, Recombinant SC SCH (21:48)
[2016-12-27] MEDS ORDERED: Dextrose 50% SYRINGE Inj (50 ml) IV STA ×3 (05:02→12:31)
[2016-12-27] MEDS: Sodium Chloride 0.9% 1,000 ML IV SCH ×3 (07:15→21:39)
[2016-12-27 08:30] LABS: BASO # 0.1 K/uL (0.0-0.2); BASO % 1.4 % (0.0-2.0); EOS % 0.5 % (0.0-4.0); HEMATOCRIT 30.3 % (34.0-47.0); LYMPH # 1.6 K/uL (1.0-4.3); LYMPH % 27.6 % (20.0-40.0); MEAN CELL VOLUME 85.1 fL (81.0-99.0); MEAN CORPUSCULAR HEMOGLOBIN 27.4 pg (27.0-31.0); MEAN CORPUSCULAR HGB CONC 32.2 g/dL (33.0-37.0); MEAN PLATELET VOLUME 9.6 fL (7.2-11.7); MONO # 0.4 K/uL (0.0-0.8); MONO % 7.2 % (0.0-10.0); RED CELL DISTRIBUTION WIDTH 14.5 % (11.5-14.5); WHITE BLOOD COUNT 5.9 K/uL (4.8-10.8)
--- NOTE | 2016-12-27 08:43 | CP.PCM.PN ---
<Ronaldo Taylor - Last Filed: 12/27/16 15:33> Subjective - Date & Time of Evaluation Date of Evaluation: 12/27/16 Time of Evaluation: 09:35 - Subjective Subjective: PGY 2 Medicine Note- Dr. King's service Pt seen and examined in no acute distress. Patient had to be roused from sleep. Patient states that she feels "ok". Per nursing, patient had a hypoglycemic event yesterday as well as a second event earlier today. Patient had a seizure- type event yesterday while the ultrasound was being obtained and thus findings were incomplete. Patient admits to nausea. She currently denies chest pain, fevers, chills, nausea, vomiting or diarrhea at this time. Objective - Vital Signs/Intake and Output Vital Signs (last 24 hours): Temp Pulse Resp BP Pulse Ox 97.8 F 93 H 20 156/101 H 98 12/27/16 00:00 12/27/16 03:54 12/27/16 00:00 12/27/16 00:00 12/27/16 00:00 Intake and Output: 12/27/16 12/27/16 06:59 18:59 Intake Total 560 Balance 560 - Medications Medications: Current Medications Cyanocobalamin (Vitamin B12 1000 Mcg Tab) 1,000 mcg PO DAILY [facility] Last Admin: 12/26/16 16:01 Dose: Not Given Famotidine (Pepcid) 20 mg PO DAILY [facility] Last Admin: 12/26/16 16:00 Dose: Not Given Ferrous Sulfate (Feosol) 325 mg PO BID [facility] Last Admin: 12/26/16 17:45 Dose: Not Given Heparin Sodium (Porcine) (Heparin) 5,000 units SC Q8 [facility] Last Admin: 12/27/16 06:02 Dose: 5,000 units Sodium Chloride (Sodium Chloride 0.9%) 1,000 mls @ 70 mls/hr IV .[id number] [facility] Last Admin: 12/26/16 20:28 Dose: 70 mls/hr Levetiracetam 750 mg/ Sodium (Chloride) 107.5 mls @ 420 mls/hr IVPB Q12H [facility] Last Admin: 12/27/16 07:05 Dose: 420 mls/hr Insulin Aspart (Novolog) 0 unit SC ACHS [facility] PRN Reason: Protocol Last Admin: 12/26/16 21:34 Dose: Not Given Insulin Glargine (Lantus) 17 unit SC HS [facility] Last Admin: 12/26/16 21:48 Dose: 17 unit Lisinopril (Zestril) 20 mg PO DAILY [facility] Lorazepam (Ativan) 1 mg IVP Q8H PRN PRN Reason: Seizure activity Last Admin: 12/26/16 16:50 Dose: 1 mg Metoclopramide HCl (Reglan) 5 mg PO 0600,1130,1630,2200 [facility] Last Admin: 12/27/16 06:02 Dose: 5 mg Nifedipine (Procardia Xl) 30 mg PO DAILY [facility] Last Admin: 12/26/16 16:01 Dose: Not Given Ondansetron HCl (Zofran Inj) 4 mg IVP Q6H PRN PRN Reason: Nausea/Vomiting - Labs Labs: 12/27/16 08:18 12/26/16 11:34 - Constitutional Appears: Non-toxic, No Acute Distress - Head Exam Head Exam: ATRAUMATIC, NORMAL INSPECTION, NORMOCEPHALIC - Eye Exam Eye Exam: EOMI, Normal appearance, PERRL Pupil Exam: NORMAL ACCOMODATION - ENT Exam ENT Exam: Mucous Membranes Moist - Neck Exam Neck Exam: Full ROM - Respiratory Exam Respiratory Exam: NORMAL BREATHING PATTERN. absent: Wheezes - Cardiovascular Exam Cardiovascular Exam: +S1, +S2 - GI/Abdominal Exam GI & Abdominal Exam: Soft, Normal Bowel Sounds - Neurological Exam Neurological Exam: Alert, Awake - Psychiatric Exam Psychiatric exam: Flat Affect - Skin Skin Exam: Dry, Normal Color, Warm Assessment and Plan - Assessment and Plan (Free Text) Assessment: Abdominal pain with vomiting Assessment and Plan: Zofran 8mg PO Q8 PRN Reglan [facility] QID (See times in MAR) NS @ 70mls/hr RUQ pain on 12/26, Abdominal u/s - diffuse increased echogenecity in the liver which may reflect hepatic steatosis however parenchymal infectious/inflammatory etiologies cannot be entirely excluded. Incomplete study as patient had a seizure during the examination. Will obtain a CT of the abdomen instead. Patient refused imaging with contrast and thus it will be ordered without contrast. Status: Acute Seizure Disorder Assessment and Plan: Patient had what appeared to be a witnessed seizure yesterday while the abdominal ultrasound was being performed. Will f/u CT imaging of abdomen and see whether patient has another event at this time. Nursing team alerted. Neurologist Dr. Keane recommendations- Psych evaluation for underlying anxiety and depression secondary to clinical presentation. Patient needs to be counseled on sleep hygeine. Keppra dosing may be reduced however in light of suspected seizure type activity yesterday; will still maintain at 750 mg PO BID. Neurologically stable for outpatient followup. Will follow up with Psych recommendations to assess whether patient is feigning seizures. Continue home medication: * Keppra 750mg IV Q12 * Seizure precautions * F/U Neuro recommendations Status: Chronic HTN (hypertension) Assessment and Plan: Nifedipine 30mg PO daily Lisinopril 20mg PO daily ---- Held due to GABRIELA Monitor with vital checks Status: Acute Gastroparesis Assessment and Plan: Home medication: * Reglan 5mg PO QID ( see scheduled times in JUN) Status: Acute Diabetes mellitus Assessment and Plan: Accuchecks Lantus 17 units SC HS Novolog 7 units TIDAC Insulin sliding scale Monitor Status: Chronic Acute kidney injury Assessment and Plan: On admission: BUN/CR: 20/1.9 GFR: 32 NS@ 70MLS/HR Cont to monitor Status: Acute Anemia Assessment and Plan: Cont to monitor Continue home medications: * Feosol 325mg PO BID - held until patient can PO * WIll start Ferrlecit IV daily at this time. * Vitamin B12 1,000mcg PO daily * Monitor with daily CBC Status: Chronic Anxiety and Depression Assessment and Plan: Will obtain Psych consult to assess patient's underlying anxiety and depression It is believed that patient may be feigning seizures as well. Nursing team alerted. Will continue to closely monitor. Prophylactic measure Assessment and Plan: SCDS Pepcid 20mg PO BID Heparin 5,000 units SC q8H Status: Acute Discussed with Dr. King. All management, orders and planning per Dr. King. <Reza King Jr. - Last Filed: 12/30/16 11:01> Objective - Vital Signs/Intake and Output Vital Signs (last 24 hours): Temp Pulse Resp BP Pulse Ox 98 F 96 H 20 164/113 H 98 12/29/16 16:19 12/29/16 16:19 12/29/16 16:19 12/29/16 16:19 12/29/16 16:19 - Labs Labs: 12/27/16 08:18 12/27/16 08:18 Attending/Attestation - Attestation I have personally seen and examined this patient.: Yes I have fully participated in the care of the patient.: Yes I have reviewed all pertinent clinical information, including history, physical exam and plan: Yes Notes (Text): 12/30/16 11:01 Agree with resident note and findings
[2016-12-27 08:56] LABS: ALB/GLOB RATIO 0.8 (1.0-2.1); BILIRUBIN,TOTAL 0.1 mg/dL (0.2-1.3); CALCIUM 8.3 mg/dl (8.6-10.4); MAGNESIUM 2.2 mg/dL (1.6-2.3); PHOSPHOROUS 4.2 mg/dL (2.5-4.5); POTASSIUM 4.3 mmol/L (3.6-5.2); TOTAL PROTEIN 5.1 g/dL (6.3-8.3)
[2016-12-27] MEDS: NIFEdipine 30 mg ER Tab PO SCH (09:39)
[2016-12-27] MEDS: Ferric Sodium Gluconat Complex 62.5 mg/5 ml Vial IVPB SCH (09:42)
[2016-12-27] MEDS: (Novolog) Insulin Aspart, Recombinant 100 u/ml 10 ml vial SC SCH (12:47)
[2016-12-27] MEDS ORDERED: Labetalol 25mg/5ml Syringe IV STA (15:56)
--- NOTE | 2016-12-27 16:28 | CT ---
PROCEDURE: CT Abdomen and Pelvis without intravenous contrast HISTORY: abdominal pain COMPARISON: 10/16/2026 TECHNIQUE: Without contrast.. Contrast Dose: 0 Radiation dose: Total exam DLP = 259.12 mGy-cm. This CT exam was performed using one or more of the following dose reduction techniques: Automated exposure control, adjustment of the mA and/or kV according to patient size, and/or use of iterative reconstruction technique. FINDINGS: LOWER THORAX: Unremarkable. LIVER: Unremarkable. No gross lesion or ductal dilatation. GALLBLADDER AND BILE DUCTS: Unremarkable. PANCREAS: Unremarkable. No gross lesion or ductal dilatation. SPLEEN: Unremarkable. ADRENALS: Unremarkable. No mass. KIDNEYS AND URETERS: Unremarkable. No hydronephrosis. No solid mass. VASCULATURE: Unremarkable. No aortic aneurysm. BOWEL: Unremarkable. No obstruction. No gross mural thickening. APPENDIX: Unremarkable. Normal appendix. PERITONEUM: Unremarkable. No free fluid. No free air. LYMPH NODES: Unremarkable. No enlarged lymph nodes. BLADDER: Limited distention. Diffusely thickened wall. Findings concerning for acute cystitis. Please correlate with urinalysis. REPRODUCTIVE: Normal uterus. BONES: Bilateral L5 spondylolysis. No spondylolisthesis. OTHER FINDINGS: None. IMPRESSION: Diffusely thickened bladder wall. Please correlate with urinalysis to rule out cystitis. No other acute abnormality.
--- NOTE | 2016-12-27 16:32 | PCM.RRT ---
CLINICAL RESOURCE NURSE Nurses Assessment - Situation CLINICAL RESOURCE NURSE Responder Arrival Time: 15:45 Location: CT Scan CLINICAL RESOURCE NURSE Reason for Call: Change in Mental Status CLINICAL RESOURCE NURSE Called By: Other Disciplines (medical radiation tech) - IV IV Inserted during CLINICAL RESOURCE NURSE?: No - Respiratory Oxygen Delivery Method: Room Air Received Nebulizer Treatments: No Was the Patient Ventilated with Bag/Mask 100% O2?: No Secretions Suctioned?: No Was the Patient Intubated?: No Was the Patient Placed on a Ventilator?: No - Stat Labs Ordered CLINICAL RESOURCE NURSE Other Labs Ordered: Prolactin level CPR started during CLINICAL RESOURCE NURSE?: No - Recommendations Notifications: Attending Physician, Family or Designated Caregiver I.Reason for CLINICAL RESOURCE NURSE - A) Acute Change in Patient: (Select all that apply): Staff member or family is worried about patient, Acute change in mental status - Neurological Status (Select all that apply): Responsive, Follows Commands - Respiratory Oxygen Delivery Method: Room Air - Constitutional Appears: Non-toxic, In Acute Distress - Head Head Exam: ATRAUMATIC, NORMAL INSPECTION, NORMOCEPHALIC - Eyes Eye Exam: EOMI, Normal appearance, PERRL Additional Comments: pupils non dilated and not fixed, responsive to light stimuli - Respiratory Exam Respiratory Exam: NORMAL BREATHING PATTERN - Cardiovascular Exam Cardiovascular Exam: +S1, +S2 - GI/Abdominal Exam GI & Abdominal Exam: Soft - Neurological Exam Neurological Exam: Altered (tremors of unclear status, no post-ictal period) - Extremities Exam Extremities Exam: Full ROM. absent: Calf Tenderness Plan - Assessment of Findings&Treatment Plan CLINICAL RESOURCE NURSE called by medical radiation tech at 15:43 ppm due to suspected seizures. Of note, a similar event occurred the day prior while patient was obtaining an ultrasound. On this occasion, oxygen equipment technician stated that the patient had two witnessed seizure- like events after the imaging study was completed. Patient's bed was lowered and patient's activity occurred for approx 1 minute each on two separate occasions. Team arrived and patient then had another event approx 5-10 minutes afterwards. Vitals were obtained and as noted: BP 154/96, R 17, SPO2 98- 100% on room air, HR 98-112. Patient was responsive and asking why she was having the pain that she was experiencing. During the events, patient's body rocked and shook for a period of 30-40 seconds. Patient was able to follow commands. Ativan 1 mg was administered. Patient was then transported to her room. After transport, patient had another seizure-type event. Again patient was responsive and following commands afterwards. BP rechecked and found to be 147/103 whereupon lopressor was administered A prolactin level was obtained. Patient's mother and attending physican were notified. Will continue to monitor. -Claudia, PGY 2
[2016-12-28] MEDS: Ferric Sodium Gluconat Complex 62.5 mg/5 ml Vial IVPB SCH ×2 (10:20→12:23)
[2016-12-28] MEDS: NIFEdipine 30 mg ER Tab PO SCH (10:20)
[2016-12-28] MEDS: Sodium Chloride 0.9% 1,000 ML IV SCH (10:23)
--- NOTE | 2016-12-28 11:42 | PCM.PSYCH ---
Initial Psychiatric Evaluation - Initial Psychiatric Evaluation Type of Admission: Voluntary Legal Status: Capacity Chief Complaint (in patient's own words): "I'm very stressed" History of Present Illness and Precipitating Events: The pt is seen, chart reviewed and case discussed. Consult was requested for her anxiety and "pseudo-seizures" She is a 26 y/o female, tam, no child, lives with her mo, unemployed as she lost her job at [employer] in July 2016. She reports some "hypoglycemia" induced seizures until late last year, which started 4 years ago. Since March 2016 she has had what her doctors call pseudo-seizures. She is upset that some staff allegedly called it "fake seizures." She claims she has no reason fake anything and that she wants to get better and find a job. Interestingly, her prolactin levels have all come high. EEG was "normal" and no video-EEG done. She, however, admits that she has been so stressed (broke up with a GF who later , lost her job, etc.) and depressed and is very anxious. She can sense the seizures coming but then loses consciousness and sometimes throws up after the episode. They last less than 2 minutes. She fulfills criteria for major depression and generalized anxiety. Feels "very anaya." No drug/alcohol hx No trauma hx except for the abovementioned loss. She used xanax and zoloft in the past but had SEs with the latter. Past psych hx: Denies Family psych hx: Denies Med hx: Cataracts and DM. Current Medications: Active Medications Generic Name Dose Route Start Last Admin Trade Name Ramona PRN Reason Stop Dose Admin Cyanocobalamin 1,000 mcg 12/24/16 10:00 12/28/16 10:20 Vitamin B12 1000 Mcg Tab PO 1,000 mcg DAILY [facility] Administration Famotidine 20 mg 12/25/16 10:00 12/28/16 10:20 Pepcid PO 20 mg DAILY [facility] Administration Ferric Sodium Gluconate Complex 125 mg 12/27/16 10:00 12/28/16 10:20 Ferrlecit IVPB 01/04/17 10:01 125 mg DAILY [facility] Administration Ferrous Sulfate 325 mg 12/24/16 10:00 12/26/16 17:45 Feosol PO Not Given BID [facility] Heparin Sodium (Porcine) 5,000 units 12/24/16 14:00 12/28/16 05:22 Heparin SC 5,000 units Q8 [facility] Administration Sodium Chloride 1,000 mls @ 70 mls/hr 12/24/16 07:45 12/28/16 10:23 Sodium Chloride 0.9% IV 70 mls/hr .[id number] [facility] Administration Levetiracetam 750 mg/ Sodium 107.5 mls @ 420 mls/hr 12/26/16 19:00 12/28/16 06:56 Chloride IVPB 420 mls/hr Q12H [facility] Administration Insulin Aspart 0 unit 12/24/16 07:30 12/27/16 12:47 Novolog SC Not Given ACHS [facility] Protocol Insulin Glargine 17 unit 12/24/16 22:00 12/26/16 21:48 Lantus SC 17 unit HS [facility] Administration Lisinopril 20 mg 12/24/16 10:00 Zestril PO DAILY [facility] Lorazepam 1 mg 12/24/16 09:17 12/28/16 05:23 Ativan IVP 1 mg Q8H PRN Administration Seizure activity Metoclopramide HCl 5 mg 12/27/16 16:30 12/28/16 05:22 Reglan IVP 5 mg 0600,1130,1630,2200 [facility] Administration Nifedipine 30 mg 12/24/16 10:00 12/28/16 10:20 Procardia Xl PO 30 mg DAILY [facility] Administration Ondansetron HCl 4 mg 12/26/16 17:47 Zofran Inj IVP Q6H PRN Nausea/Vomiting Past Psychiatric History - Past Psychiatric History Previous Treatment History: None Pertinent Medical Hx (Current Medical&Sleep Prob, Allergies): Allergies Allergy/AdvReac Type Severity Reaction Status Date / Time No Known Allergies Allergy Verified 12/23/16 19:17 Cyanocobalamin [Vitamin B12 1000 mcg Tab] 1,000 mcg PO DAILY 10/16/16 Lisinopril [Zestril] 20 mg PO DAILY 10/16/16 amLODIPine [Norvasc] 10 mg PO DAILY 10/16/16 Ferrous Sulfate [Feosol] 325 mg PO BID 12/07/16 hydrALAZINE [Apresoline] 12.5 mg PO DAILY 12/07/16 Insulin Glargine, Recombina [Lantus] 17 unit SQ HS #0 12/09/16 Insulin Lispro [Humalog Kwikpen U-100] 7 unit SQ TID #0 12/09/16 Ondansetron ODT [Zofran ODT] 4 mg PO PRN PRN 12/18/16 levETIRAcetam [Keppra] 750 mg PO BID #60 tab 12/20/16 Famotidine 20 mg PO Q12H 12/23/16 Metoclopramide HCl [Reglan] 5 mg PO QID 12/23/16 Review of Systems - Neurological Neurological: Convulsions - Psychiatric Psychiatric: Abnormal Sleep Pattern, Anhedonia, Anxiety, Depression, Irritability, Mood Swings. absent: Hallucinations, Homicidal Ideation, Paranoia , Suicidal Ideation Mental Status Examination - Personal Presentation Personal Presentation: Looks stated age - Affect Affect: Constricted - Motor Activity Motor Activity: Calm - Reliability in Providing Information Reliability in Providing Information: Good - Speech Speech: Organized - Mood Mood: Depressed, Anxious - Formal Thought Process Formal Thought Process: No Impairment - Cognitive Functions Orientation: Person, Place, Situation, Time Sensorium: Alert Attention/Concentration: Attentive Estimate of Intelligence: Average Memory: Recent intact, as evidence by: Ability to recall events of the day, Remote intact, as evidenced by: Abilit to recall sig. life events - Risk Risk: Diminished functioning - Strength & Assets Inventory Strength & Assets Inventory: Family support, Cooperative - Limitations Limitations: Other DSM 5 DX - DSM 5 DSM 5 Diagnosis: Major depressive d/o - single, moderate CARL r/o conversion d/o - Recommended/Plan of Treatment Treatment Recommendations and Plan of Treatment: Lexapro 5 mg, to be increased slowly Klonopin BID for anxiety (risks discussed and will d/c in 1-2 months) Individual psychotherapy Support and psychoed Continue medical w/u - she could have both pseudo and real seizures, may benefit from overnight EEG/video monitored eval. Pls follow neuro consult. 33 min
[2016-12-28] MEDS ORDERED: (Novolog) Insulin Aspart, Recombinant 100 u/ml 10 ml vial SC STA (16:29)
--- NOTE | 2016-12-28 17:36 | CP.PCM.PN ---
<Ronaldo Taylor - Last Filed: 12/28/16 17:28> Subjective - Date & Time of Evaluation Date of Evaluation: 12/28/16 Time of Evaluation: 10:10 - Subjective Subjective: PGY 2 Medicine Note- Dr. King's service Pt seen and examined in no acute distress. Patient had another seizure like event yesterday evening witnessed by mother in the room. Per nursing, patient's blood pressure was elevated but then began to stabilize. IV line access was also infiltrated and thus access to be obtained as per nursing team. Patient states that she feels okay. She has a slight headache, but otherwise was able to sleep a bit more last night. She is inquiring about the results of her CT scan Objective - Vital Signs/Intake and Output Vital Signs (last 24 hours): Temp Pulse Resp BP Pulse Ox 98.1 F 91 H 18 163/105 H 98 12/28/16 15:46 12/28/16 16:17 12/28/16 15:46 12/28/16 16:17 12/28/16 15:46 Intake and Output: 12/28/16 12/28/16 06:59 18:59 Intake Total 1960 690 Balance 1960 690 - Medications Medications: Current Medications Clonazepam (Klonopin) 1 mg PO BID [facility] Last Admin: 12/28/16 13:16 Dose: 1 mg Cyanocobalamin (Vitamin B12 1000 Mcg Tab) 1,000 mcg PO DAILY [facility] Last Admin: 12/28/16 10:20 Dose: 1,000 mcg Escitalopram Oxalate (Lexapro) 5 mg PO DAILY [facility] Last Admin: 12/28/16 13:16 Dose: 5 mg Famotidine (Pepcid) 20 mg PO DAILY [facility] Last Admin: 12/28/16 10:20 Dose: 20 mg Ferric Sodium Gluconate Complex (Ferrlecit) 125 mg IVPB DAILY [facility] Stop: 01/04/17 10:01 Last Admin: 12/28/16 12:23 Dose: Not Given Ferrous Sulfate (Feosol) 325 mg PO BID [facility] Last Admin: 12/26/16 17:45 Dose: Not Given Heparin Sodium (Porcine) (Heparin) 5,000 units SC Q8 [facility] Last Admin: 12/28/16 13:16 Dose: 5,000 units Sodium Chloride (Sodium Chloride 0.9%) 1,000 mls @ 70 mls/hr IV .[id number] [facility] Last Admin: 12/28/16 10:23 Dose: 70 mls/hr Levetiracetam 750 mg/ Sodium (Chloride) 107.5 mls @ 420 mls/hr IVPB Q12H [facility] Last Admin: 12/28/16 06:56 Dose: 420 mls/hr Insulin Aspart (Novolog) 0 unit SC ACHS [facility] PRN Reason: Protocol Last Admin: 12/27/16 12:47 Dose: Not Given Insulin Glargine (Lantus) 17 unit SC HS [facility] Last Admin: 12/26/16 21:48 Dose: 17 unit Levetiracetam (Keppra) 750 mg PO Q12H [facility] Lisinopril (Zestril) 20 mg PO DAILY [facility] Lorazepam (Ativan) 1 mg IVP Q8H PRN PRN Reason: Seizure activity Last Admin: 12/28/16 05:23 Dose: 1 mg Metoclopramide HCl (Reglan) 5 mg SC 0600,1130,1630,2200 [facility] Nifedipine (Procardia Xl) 30 mg PO DAILY [facility] Last Admin: 12/28/16 10:20 Dose: 30 mg Ondansetron HCl (Zofran Inj) 4 mg IVP Q6H PRN PRN Reason: Nausea/Vomiting - Labs Labs: 12/27/16 08:18 12/27/16 08:18 - Constitutional Appears: Non-toxic, No Acute Distress - Head Exam Head Exam: ATRAUMATIC, NORMAL INSPECTION, NORMOCEPHALIC - Eye Exam Eye Exam: EOMI, Normal appearance, PERRL Pupil Exam: NORMAL ACCOMODATION, PERRL - ENT Exam ENT Exam: Mucous Membranes Moist - Neck Exam Neck Exam: Full ROM - Respiratory Exam Respiratory Exam: NORMAL BREATHING PATTERN - Cardiovascular Exam Cardiovascular Exam: +S1, +S2 - GI/Abdominal Exam GI & Abdominal Exam: Soft, Normal Bowel Sounds - Extremities Exam Extremities Exam: Full ROM - Back Exam Back Exam: Full ROM - Neurological Exam Neurological Exam: Alert, Awake, Oriented x3 - Psychiatric Exam Psychiatric exam: Flat Affect, Normal Affect, Normal Mood - Skin Skin Exam: Intact, Normal Color, Warm Assessment and Plan - Assessment and Plan (Free Text) Assessment: Abdominal pain with vomiting Assessment and Plan: Zofran IV PRN Reglan [facility] QID (See times in MAR). Currently will need to be administered SC until patient has IV access NS @ 70mls/hr RUQ pain on 12/26, CT abdomen/pelvis (no contrast because patient refused): diffusely thickened bladder wall. recommendations for UA to rule out cystitis. UA performed on 12/24: No signs of obvious infectious etiology Abdominal u/s - diffuse increased echogenecity in the liver which may reflect hepatic steatosis however parenchymal infectious/inflammatory etiologies cannot be entirely excluded. Incomplete study as patient had a seizure during the examination. Will obtain a CT of the abdomen instead. Patient refused imaging with contrast and thus it will be ordered without contrast. Status: Acute Seizure Disorder Assessment and Plan: Patient had what appeared to be a witnessed seizure yesterday while the abdominal ultrasound was being performed. Patient had another seizure like event after CT imaging of abdomen was obtained yesterday. Prolactin 301.4. Phenytoin less than [address] Keane recommendations- Psych evaluation for underlying anxiety and depression secondary to clinical presentation. Patient needs to be counseled on sleep hygeine. Keppra dosing may be reduced however in light of suspected seizure type activity yesterday; will still maintain at 750 mg PO BID. Neurologically stable for outpatient followup. Will follow up with Psych recommendations to assess whether patient is feigning seizures. Continue home medication: * Keppra 750mg IV Q12 * Seizure precautions * F/U Neuro recommendations Status: Chronic HTN (hypertension) Assessment and Plan: Nifedipine 30mg PO daily Lisinopril 20mg PO daily ---- Held due to GABRIELA Monitor with vital checks Status: Acute Gastroparesis Assessment and Plan: Home medication: * Reglan 5mg SC QID ( see scheduled times in JUN) Status: Acute Diabetes mellitus Assessment and Plan: Accuchecks Lantus 17 units SC HS- On hold on hold due to overt hypoglycemic events Novolog 7 units TIDAC- On hold due to overt hypoglycemic events Thus far, have been giving one time Lantus doses and monitoring Insulin sliding scale Monitor Status: Chronic Acute kidney injury Assessment and Plan: On admission: BUN/CR: 20/1.9 GFR: 32 NS@ 70MLS/HR Cont to monitor Status: Acute Anemia Assessment and Plan: Cont to monitor Continue home medications: * Will resume IV iron once access is obtained * Vitamin B12 1,000mcg PO daily * Monitor with daily CBC Status: Chronic Anxiety and Depression Assessment and Plan: Will obtain Psych consult to assess patient's underlying anxiety and depression - F/U recommendations It is believed that patient may be feigning seizures as well. Nursing team alerted. Will continue to closely monitor. Prophylactic measure Assessment and Plan: SCDS Pepcid 20mg PO BID Heparin 5,000 units SC q8H Status: Acute In need of PICC line access.- order placed Discussed with Dr. King. All management, orders and planning per Dr. King. <Reza King Jr. - Last Filed: 12/30/16 11:03> Objective - Vital Signs/Intake and Output Vital Signs (last 24 hours): Temp Pulse Resp BP Pulse Ox 98 F 96 H 20 164/113 H 98 12/29/16 16:19 12/29/16 16:19 12/29/16 16:19 12/29/16 16:19 12/29/16 16:19 - Labs Labs: 12/27/16 08:18 12/27/16 08:18 Attending/Attestation - Attestation I have personally seen and examined this patient.: Yes I have fully participated in the care of the patient.: Yes I have reviewed all pertinent clinical information, including history, physical exam and plan: Yes Notes (Text): 12/30/16 11:03 Agree with resident note and findings
[2016-12-29] MEDS: Sodium Chloride 0.9% 1,000 ML IV SCH (02:29)
[2016-12-29 09:23] VITALS: RESP 20; O2SAT 98
[2016-12-29] MEDS: (Novolog) Insulin Aspart, Recombinant 100 u/ml 10 ml vial SC SCH ×3 (09:43→17:16)
[2016-12-29] MEDS: Ferric Sodium Gluconat Complex 62.5 mg/5 ml Vial IVPB SCH (09:46)
[2016-12-29] MEDS: NIFEdipine 30 mg ER Tab PO SCH ×2 (09:46→10:09)
--- NOTE | 2016-12-29 10:44 | CP.PCM.PN ---
Subjective - Date & Time of Evaluation Date of Evaluation: 12/29/16 Time of Evaluation: 07:00 - Subjective Subjective: PGY1- Medicine Note- Dr. King's Service Patient seen and examined at bedside and in no acute distress. Patient is aggravated because she feels like the doctors are making decisions instead of her making her own decisions. She is frustrated that she has not gotten a picc line. She is not cooperative with taking her medications because she believes she will just throw them up. She had vomiting this morning and is very nauseous. She denies chest pain, shortness of breath, constipation, or diarrhea. Objective - Vital Signs/Intake and Output Vital Signs (last 24 hours): Temp Pulse Resp BP Pulse Ox 98 F 75 20 171/115 H 98 12/29/16 08:00 12/29/16 08:00 12/29/16 08:00 12/29/16 08:00 12/29/16 08:00 - Medications Medications: Current Medications Clonazepam (Klonopin) 1 mg PO BID [facility] Last Admin: 12/29/16 09:46 Dose: Not Given Cyanocobalamin (Vitamin B12 1000 Mcg Tab) 1,000 mcg PO DAILY [facility] Last Admin: 12/29/16 09:47 Dose: Not Given Escitalopram Oxalate (Lexapro) 5 mg PO DAILY [facility] Last Admin: 12/29/16 09:46 Dose: Not Given Famotidine (Pepcid) 20 mg PO DAILY [facility] Last Admin: 12/29/16 09:46 Dose: Not Given Ferric Sodium Gluconate Complex (Ferrlecit) 125 mg IVPB DAILY [facility] Stop: 01/04/17 10:01 Last Admin: 12/29/16 09:46 Dose: Not Given Ferrous Sulfate (Feosol) 325 mg PO BID [facility] Last Admin: 12/26/16 17:45 Dose: Not Given Heparin Sodium (Porcine) (Heparin) 5,000 units SC Q8 [facility] Last Admin: 12/29/16 05:33 Dose: 5,000 units Sodium Chloride (Sodium Chloride 0.9%) 1,000 mls @ 70 mls/hr IV .[id number] [facility] Last Admin: 12/29/16 02:29 Dose: Not Given Levetiracetam 750 mg/ Sodium (Chloride) 107.5 mls @ 420 mls/hr IVPB Q12H [facility] Last Admin: 12/28/16 06:56 Dose: 420 mls/hr Insulin Aspart (Novolog) 0 unit SC ACHS KELVIN PRN Reason: Protocol Last Admin: 12/29/16 09:43 Dose: 10 unit Insulin Glargine (Lantus) 17 unit SC HS [facility] Last Admin: 12/26/16 21:48 Dose: 17 unit Levetiracetam (Keppra) 750 mg PO Q12H [facility] Last Admin: 12/29/16 05:33 Dose: 750 mg Lisinopril (Zestril) 20 mg PO DAILY [facility] Lorazepam (Ativan) 1 mg IVP Q8H PRN PRN Reason: Seizure activity Last Admin: 12/28/16 05:23 Dose: 1 mg Lorazepam (Ativan) 1 mg IM Q6H PRN PRN Reason: Seizure activity Metoclopramide HCl (Reglan) 5 mg SC 0600,1130,1630,2200 [facility] Last Admin: 12/29/16 05:33 Dose: 5 mg Nifedipine (Procardia Xl) 30 mg PO DAILY [facility] Last Admin: 12/29/16 10:09 Dose: 30 mg Ondansetron HCl (Zofran Inj) 4 mg IVP Q6H PRN PRN Reason: Nausea/Vomiting - Labs Labs: 12/27/16 08:18 12/27/16 08:18 - Constitutional Appears: Non-toxic, No Acute Distress - Head Exam Head Exam: ATRAUMATIC, NORMAL INSPECTION, NORMOCEPHALIC - Eye Exam Eye Exam: EOMI, Normal appearance - ENT Exam ENT Exam: Mucous Membranes Moist - Neck Exam Neck Exam: Full ROM. absent: Tenderness - Respiratory Exam Respiratory Exam: Clear to Ausculation Bilateral, NORMAL BREATHING PATTERN. absent: Rales, Rhonchi, Wheezes, Respiratory Distress, Stridor - Cardiovascular Exam Cardiovascular Exam: REGULAR RHYTHM, RRR. absent: Gallop, Rubs, Murmur - GI/Abdominal Exam GI & Abdominal Exam: Soft, Normal Bowel Sounds - Extremities Exam Extremities Exam: Full ROM, Normal Inspection. absent: Pedal Edema - Neurological Exam Neurological Exam: Alert, Awake, Oriented x3 - Psychiatric Exam Psychiatric exam: Agitated, Anxious - Skin Skin Exam: Intact, Normal Color, Warm Assessment and Plan - Assessment and Plan (Free Text) Assessment: Abdominal pain with vomiting Assessment and Plan: Zofran IV PRN Reglan KELVIN QID (See times in JUN). Currently will need to be administered SC until patient has IV access NS @ 70mls/hr RUQ pain on 12/26 CT abdomen/pelvis (no contrast because patient refused): diffusely thickened bladder wall. recommendations for UA to rule out cystitis. UA performed on 12/24: No signs of obvious infectious etiology Abdominal u/s - diffuse increased echogenecity in the liver which may reflect hepatic steatosis however parenchymal infectious/inflammatory etiologies cannot be entirely excluded. Incomplete study as patient had a seizure during the examination. Will obtain a CT of the abdomen instead. Patient refused imaging with contrast and thus it will be ordered without contrast. Status: Acute Seizure Disorder Assessment and Plan: Patient had what appeared to be a witnessed seizure yesterday while the abdominal ultrasound was being performed. Patient had another seizure like event after CT imaging of abdomen was obtained yesterday. Prolactin 301.4. Phenytoin less than [address] Keane recommendations- Psych evaluation for underlying anxiety and depression secondary to clinical presentation. Patient needs to be counseled on sleep hygeine. Keppra dosing may be reduced however in light of suspected seizure type activity yesterday; will still maintain at 750 mg PO BID. Neurologically stable for outpatient followup. Will follow up with Psych recommendations to assess whether patient is feigning seizures. Continue home medication: * Keppra 750mg IV Q12 * Seizure precautions * F/U Neuro recommendations Status: Chronic HTN (hypertension) Assessment and Plan: Nifedipine 30mg PO daily Lisinopril 20mg PO daily ---- Held due to GABRIELA Monitor with vital checks Status: Acute Gastroparesis Assessment and Plan: Home medication: * Reglan 5mg SC QID ( see scheduled times in JUN) Status: Acute Diabetes mellitus Assessment and Plan: Accuchecks Lantus 17 units SC HS- On hold on hold due to overt hypoglycemic events Novolog 7 units TIDAC- On hold due to overt hypoglycemic events Thus far, have been giving one time Lantus doses and monitoring Insulin sliding scale Monitor Status: Chronic Acute kidney injury Assessment and Plan: On admission: BUN/CR: 20/1.9 GFR: 32 NS@ 70MLS/HR Cont to monitor Status: Acute Anemia Assessment and Plan: Cont to monitor Continue home medications: * Will resume IV iron once access is obtained * Vitamin B12 1,000mcg PO daily * Monitor with daily CBC Status: Chronic Anxiety and Depression Assessment and Plan: Will obtain Psych consult to assess patient's underlying anxiety and depression - F/U recommendations It is believed that patient may be feigning seizures as well. Nursing team alerted. Will continue to closely monitor. Prophylactic measure Assessment and Plan: SCDS Pepcid 20mg PO BID Heparin 5,000 units SC q8H Status: Acute
--- NOTE | 2016-12-29 15:35 | CP.PCM.DIS ---
Provider - Provider Date of Admission: 12/23/16 21:48 Attending physician: Reza King Jr, MD Time Spent in preparation of Discharge (in minutes): 45 Diagnosis - Discharge Diagnosis (1) Vomiting Status: Resolved Comment: Please see summary for details (2) Abdominal pain Status: Resolved Comment: Please see summary for details (3) Seizure disorder Status: Chronic Comment: Please see summary for details (4) HTN (hypertension) Status: Chronic Comment: Please see summary for details (5) Diabetes mellitus Status: Chronic Comment: Please see summary for details Hospital Course - Lab Results Lab Results: Most Recent Lab Values WBC 5.9 K/uL (4.8-10.8) 12/27/16 08:18 RBC 3.56 Mil/uL (3.80-5.20) L 12/27/16 08:18 Hgb 9.8 g/dL (11.0-16.0) L 12/27/16 08:18 Hct 30.3 % (34.0-47.0) L 12/27/16 08:18 MCV 85.1 fL (81.0-99.0) 12/27/16 08:18 MCH 27.4 pg (27.0-31.0) 12/27/16 08:18 MCHC 32.2 g/dL (33.0-37.0) L 12/27/16 08:18 RDW 14.5 % (11.5-14.5) 12/27/16 08:18 Plt Count 337 K/uL (130-400) 12/27/16 08:18 MPV 9.6 fL (7.2-11.7) 12/27/16 08:18 Neut % (Auto) 63.3 % (50.0-75.0) 12/27/16 08:18 Lymph % (Auto) 27.6 % (20.0-40.0) 12/27/16 08:18 [place] % (Auto) 7.2 % (0.0-10.0) 12/27/16 08:18 Eos % (Auto) 0.5 % (0.0-4.0) 12/27/16 08:18 Baso % (Auto) 1.4 % (0.0-2.0) 12/27/16 08:18 Neut # 3.7 K/uL (1.8-7.0) 12/27/16 08:18 Lymph # 1.6 K/uL (1.0-4.3) 12/27/16 08:18 [place] # 0.4 K/uL (0.0-0.8) 12/27/16 08:18 Eos # 0.0 K/uL (0.0-0.7) 12/27/16 08:18 Baso # 0.1 K/uL (0.0-0.2) 12/27/16 08:18 Neutrophils % (Manual) 86 % (50-75) H 12/24/16 13:50 Lymphocytes % (Manual) 10 % (20-40) L 12/24/16 13:50 Monocytes % (Manual) 3 % (0-10) 12/24/16 13:50 Basophils % (Manual) 1 % (0-2) 12/24/16 13:50 Platelet Estimate Normal (NORMAL) 12/24/16 13:50 Hypochromasia (manual) Slight 12/24/16 13:50 Poikilocytosis (manual Slight 12/24/16 13:50 Anisocytosis (manual) Slight 12/24/16 13:50 Sodium 134 mmol/L (132-148) 12/27/16 08:18 Potassium 4.3 mmol/L (3.6-5.2) 12/27/16 08:18 Chloride 101 mmol/L (98-107) 12/27/16 08:18 Carbon Dioxide 21 mmol/L (22-30) L 12/27/16 08:18 Anion Gap 16 (10-20) 12/27/16 08:18 BUN 18 mg/dL (7-17) H 12/27/16 08:18 Creatinine 1.9 MG/DL (0.7-1.2) H 12/27/16 08:18 Est GFR ( Amer) 38 12/27/16 08:18 Est GFR (Non-Af Amer) 32 12/27/16 08:18 POC Glucose (mg/dL) 216 mg/dL (65-110) H 12/29/16 12:55 Random Glucose 270 mg/dL (65-105) H 12/27/16 08:18 Calcium 8.3 mg/dl (8.6-10.4) L 12/27/16 08:18 Phosphorus 4.2 mg/dL (2.5-4.5) 12/27/16 08:18 Magnesium 2.2 mg/dL (1.6-2.3) 12/27/16 08:18 Total Bilirubin 0.1 mg/dL (0.2-1.3) L 12/27/16 08:18 AST 17 U/L (14-36) 12/27/16 08:18 ALT 18 U/L (9-52) 12/27/16 08:18 Alkaline Phosphatase 81 U/L (38-126) 12/27/16 08:18 Total Protein 5.1 g/dL (6.3-8.3) L 12/27/16 08:18 Albumin 2.3 g/dL (3.5-5.0) L 12/27/16 08:18 Globulin 2.9 gm/dL (2.2-3.9) 12/27/16 08:18 Albumin/Globulin Ratio 0.8 (1.0-2.1) L 12/27/16 08:18 Procalcitonin 0.17 NG/ML (0.19-0.49) L 12/26/16 19:26 Prolactin 301.4 ng/mL (3.0-18.9) H 12/27/16 16:56 Urine Color Yellow (YELLOW) 12/24/16 02:54 Urine Clarity Clear (Clear) 12/24/16 02:54 Urine pH 7.0 (5.0-8.0) 12/24/16 02:54 Ur Specific [place] 1.016 (1.003-1.030) 12/24/16 02:54 Urine Protein 3+ mg/dL (NEGATIVE) H 12/24/16 02:54 Urine Glucose (UA) 3+ mg/dL (Normal) H 12/24/16 02:54 Urine Ketones Trace mg/dL (NEGATIVE) 12/24/16 02:54 Urine Blood Negative (NEGATIVE) 12/24/16 02:54 Urine Nitrate Negative (NEGATIVE) 12/24/16 02:54 Urine Bilirubin Negative (NEGATIVE) 12/24/16 02:54 Urine Urobilinogen Normal mg/dL (0.2-1.0) 12/24/16 02:54 Ur Leukocyte Esterase Neg Kathy/uL (Negative) 12/24/16 02:54 Urine WBC (Auto) 4 /hpf (0-5) 12/24/16 02:54 Urine RBC (Auto) 2 /hpf (0-3) 12/24/16 02:54 Ur Squamous Epith Cells 4 /hpf (0-5) 12/24/16 02:54 Urine Bacteria Occ (<OCC) H 12/24/16 02:54 Urine HCG, Qual Negative (NEGATIVE) 12/24/16 02:54 Urine Opiates Screen Negative (NEGATIVE) 12/24/16 02:54 Urine Methadone Screen Negative (NEGATIVE) 12/24/16 02:54 Ur Barbiturates Screen Negative (NEGATIVE) 12/24/16 02:54 Phenytoin < 3.0 ug/mL (10-20) L 12/27/16 19:53 Valproic Acid < 10.0 ug/mL (50.0-100.0) L 12/23/16 20:49 Carbamazepine < 3.0 ug/mL (4.0-12.0) L 12/23/16 20:49 Ur Phencyclidine Scrn Negative (NEGATIVE) 12/24/16 02:54 Ur Amphetamines Screen Negative (NEGATIVE) 12/24/16 02:54 U Benzodiazepines Scrn Negative (NEGATIVE) 12/24/16 02:54 U Oth Cocaine Metabols Negative (NEGATIVE) 12/24/16 02:54 U Cannabinoids Screen Positive (NEGATIVE) 12/24/16 02:54 Alcohol, Quantitative < 10 mg/dl (0-10) 12/23/16 20:49 - Hospital Course Hospital Course: "HPI: Patient is a 26 year old female with a past medical history of DM, HTN, seizure disorder, anemia, anxiety and depression who presented to the ED with complaints of nausea, vomiting, and abdominal pain. As per patient, her symptoms began yesterday morning and have not subsided. She states that she has been vomiting non-stop since the onset of her symptoms. Patient also states that she has been having episodes of seizures. Patient currently denies any fever, chills, chest pain, diarrhea and constipation but complains of abdominal pain, nausea and vomiting." Hospital Course: Abdominal pain with vomiting: Patient started on zofran 8mg PO Q8 PRN with NS @ 70ml/hr. Additional nausea control was needed to patient was then started on Reglan KELVIN QID. Patient did not have IV access so Reglan was administered SC. Patient was found to have RUQ tenderness on 12/26. Patient was taken for a RUQ U/ S but had a seizure during the procedure so a CT abd/pelvis was done instead. Patient refused contrast, thus it was done without contrast. Results showed diffusely thickened bladder wall. UA was performed to rule out cystitis. UA showed no obvious infectious etiology. Seizure: Continued home medication, Keppra 750mg PO BID (strength increased from 250mg PO to 750mg PO on last admission by Dr. Cruz). Seizure precautions were taken. Dr. Keane (Neurology) was consulted. Recommended psych eval to assess whether patient is feigning seizures secondary to underlying anxiety and depression. Neuro also recommended patient be counseled on sleep hygeine. Keppra dosing may be reduced in light of suspected seizure type activity, however, will still remain at 750mg PO BID. Neurologically stable for outpatient follow-up. HTN: Continuous BP monitoring along with Nifedipine 30mg PO daily. Lisinopril held due to GABRIELA. Gastroparesis: Patient started on Reglan 5mg SC QID @ 0600, 1130, 1630, 2200 Diabetes: Patient started on Lantus 17 units SC HS and Novolog 7 units TIDAC, but were held due to overt hypoglycemic events. Thus far, have been giving one time Lantus doses with Insulin sliding scale and monitoring. Anemia: Monitored with daily CBC. Continued home medications. Anxiety & Depression: Obtained Psych consult to assess for underlying anxiety and depression. Patient believed to be feigning seizures. Patient started on Lexapro 5mg which she will be discharged on. GI/DVT Prophylaxis: Pepcid 20mg PO BID and Heparin 5,000 units SC q8h Patient feeling better and stable for discharge as per Dr. King. This is a summary of the hospital course, please see chart for full details. Discharge Exam - Head Exam Head Exam: ATRAUMATIC, NORMAL INSPECTION, NORMOCEPHALIC - Eye Exam Eye Exam: EOMI, Normal appearance Pupil Exam: NORMAL ACCOMODATION - ENT Exam ENT Exam: Mucous Membranes Moist - Neck Exam Neck exam: Full Rom - Respiratory Exam Respiratory Exam: Clear to PA & Lateral, NORMAL BREATHING PATTERN, UNREMARKABLE - Cardiovascular Exam Cardiovascular Exam: REGULAR RHYTHM, RRR - GI/Abdominal Exam GI & Abdominal Exam: Normal Bowel Sounds. absent: Tenderness - Extremities Exam Extremities exam: full ROM, normal inspection - Neurological Exam Neurological exam: Alert, Oriented x3 - Psychiatric Exam Psychiatric exam: Normal Affect, Normal Mood - Skin Skin Exam: Intact, Normal Color, Warm Discharge Plan - Discharge Medications Prescriptions: cloNIDine 0.1 mg/24 hr [catapres TTS1] 0.1 mg TD Q7D #4 patch Escitalopram [Lexapro] 5 mg PO DAILY 30 Days levETIRAcetam [Keppra] 750 mg PO BID #60 tab Metoclopramide HCl [Reglan] 10 mg PO Q8H PRN #15 tablet PRN Reason: Nausea/Vomiting NIFEdipine ER [Procardia XL] 30 mg PO DAILY #30 ter - Follow Up Plan Condition: GOOD Disposition: HOME/ ROUTINE Additional Instructions: Patient stable for discharge as per Dr. King. Patient to stop taking Hydralazine and Norvasc and instead to start taking Nifedipine ER 30 mg once per day. Patient to also take Lexapro 5 mg po daily. Patient to use Clonidine patch once per week. Patient to continue all other home medications. Patient to return to Emergency Room immediately if symptoms worsen or return. Patient explained instructions who understands and agrees. Referrals: Reza King Jr., MD [Medical Doctor] -
[2016-12-29 16:22] VITALS: BP 164/113; PULSE 96; TEMP 98
== END 2016-12-29 18:58 | disposition home or self-care (01) | DRG 533 ==
LOC: C.ER 18:50 → C.5T 21:48 → C.9E 22:29 → C.5T 22:33 → C.5S 12-24 09:18
PROVIDERS: ADMIT Internal Medicine; ATTEND Internal Medicine
DX: E10.43 Type 1 diabetes mellitus with diabetic autonomic (poly)neuropathy (principal); K31.84 Gastroparesis; N17.9 Acute kidney failure, unspecified; G40.909 Epilepsy, unspecified, not intractable, without status epilepticus; E10.649 Type 1 diabetes mellitus with hypoglycemia without coma; I10 Essential (primary) hypertension; F32.1 Major depressive disorder, single episode, moderate; F41.1 Generalized anxiety disorder; D64.9 Anemia, unspecified; F44.9 Dissociative and conversion disorder, unspecified; Z72.820 Sleep deprivation; Z79.4 Long term (current) use of insulin; Z87.891 Personal history of nicotine dependence

== ENCOUNTER 2016-12-31 13:21 | Inpatient (IN) | payer MEDICAID ==
[2016-12-31 13:21] VITALS: BMI 26.4
--- NOTE | 2016-12-31 16:58 | C.PDOC ---
History Of Present Illness 26 year old female with a history of diabetes, HTN, seizures, anxiety and depression was brought to the ED by EMS, accompanied by her mother, with complaints of vomiting and seizures. As per mother, patient slept at her friend' s house last night and she is unsure if she took her medication. On arrival to ED patient is vomiting and seizing with EMS aiding. Patient was discharged from hospital 2 days ago for similar complaints. She has had a work up performed including abdominal CT and blood work for nausea and vomiting. Overall her evaluation was normal. She was also seen by neurologist and instructed to follow up with Epilepsy center for further monitoring and was suggested to have a psychiatric evaluation due to anxiety leading to feigning seizures. Patient's mother denies fever, diarrhea, or other complaints at this time. Time Seen by Provider: 12/31/16 13:33 Chief Complaint (Nursing): Seizure History Per: Patient, Family (mother ) History/Exam Limitations: no limitations Recent Seizure Activity Began: Mins Ago: (on arrival ) Number Of Seizures: Multiple Length Of Seizures (Duration): Unknown Post-ictal Period: No Recent travel outside of the [place]: No Additional History Per: Prior Records Past Medical History Reviewed: Historical Data, Nursing Documentation, Vital Signs Vital Signs: Last Vital Signs Temp 97.7 F 12/31/16 13:41 Pulse 19 L 12/31/16 14:13 Resp 18 12/31/16 14:13 BP 198/121 H 12/31/16 14:13 Pulse Ox 100 12/31/16 17:06 - Medical History PMH: Anemia, Anxiety, Depression, Diabetes, HTN, Seizures - [facility] Procedures EXCISION OF STOMACH, ENDO, DIAGN (11/02/16) INSERTION OF INFUSION DEV INTO L SUBCLAV VEIN, PERC APPROACH (10/28/16) INSERTION OF INFUSION DEV INTO SUP VENA CAVA, PERC APPROACH (11/02/16) INTRODUCTION OF NUTRITIONAL INTO PERIPH VEIN, PERC APPROACH (10/16/16) ULTRASONOGRAPHY OF SUPERIOR VENA CAVA, GUIDANCE (10/16/16) Family History: States: Unknown Family Hx - Social History Hx Alcohol Use: No Hx Substance Use: No - Immunization History Hx Tetanus Toxoid Vaccination: No Hx Influenza Vaccination: Yes Hx Pneumococcal Vaccination: Yes Review Of Systems Review Of Systems: ROS cannot be obtained secondary to pt's inabilty to answer questions. (patient's mental status) Gastrointestinal: Positive for: Vomiting Neurological: Positive for: Seizures Physical Exam - Physical Exam Appears: Non-toxic, Other (poorly arousable and intermittently vomiting) Skin: Warm, Dry Head: Atraumatic (no evidence of trauma ), Normacephalic Eye(s): bilateral: Normal Inspection Oral Mucosa: Moist Neck: Supple Chest: Symmetrical, No Deformity Cardiovascular: Rhythm Regular Respiratory: Normal Breath Sounds, No Rales, No Rhonchi, No Wheezing Gastrointestinal/Abdominal: Soft, No Tenderness, No Distention, No Guarding, No Rebound Neurological/Psych: Oriented x3, Normal Motor, Normal Sensation ED Course And Treatment O2 Sat by Pulse Oximetry: 100 (room air ) Progress Note: Patient was given Ativan and Zofran. Discussed the case with Dr. King. Disposition - Disposition Disposition Time: 19:24 Condition: GUARDED Forms: [facility] (Turkmen) - Clinical Impression Clinical Impression: Vomiting, Hyperglycemia - Scribe Statement The provider has reviewed the documentation as recorded by the Scribe Radha Nguyen All medical record entries made by the Scribe were at my direction and personally dictated by me. I have reviewed the chart and agree that the record accurately reflects my personal performance of the history, physical exam, medical decision making, and the department course for this patient. I have also personally directed, reviewed, and agree with the discharge instructions and disposition. Physician Patient Turnover Patient Signed Over To: Pietro Luque Handoff Comments: patient for admission, spoke with Dr. King, requested hospitalist. Pending labs, UA/Ucg
[2016-12-31 19:34] LABS: BASO # 0.1 K/uL (0.0-0.2); BASO % 1.2 % (0.0-2.0); EOS % 0.3 % (0.0-4.0); LYMPH # 1.6 K/uL (1.0-4.3); LYMPH % 13.4 % (20.0-40.0); MEAN CELL VOLUME 85.9 fL (81.0-99.0); MEAN CORPUSCULAR HEMOGLOBIN 27.4 pg (27.0-31.0); MEAN CORPUSCULAR HGB CONC 31.9 g/dL (33.0-37.0); MEAN PLATELET VOLUME 10.6 fL (7.2-11.7); MONO # 0.4 K/uL (0.0-0.8); MONO % 3.2 % (0.0-10.0); RED CELL DISTRIBUTION WIDTH 14.8 % (11.5-14.5)
[2016-12-31 20:05] LABS: RBC URINE 2 /hpf (0-3); URINE BACTERIA RARE (<OCC); URINE BILIRUBIN NEGATIVE (NEGATIVE); URINE BLOOD NEGATIVE (NEGATIVE); URINE COLOR Straw (YELLOW); URINE GLUCOSE (UA) 3+ mg/dL (Normal); URINE KETONE 1+ mg/dL (NEGATIVE); URINE LEUKOCYTE ESTERASE NEG Leu/uL (Negative); URINE PROTEIN 3+ mg/dL (NEGATIVE); URINE UROBILINOGEN NORMAL mg/dL (0.2-1.0); WBC URINE 5 /hpf (0-5)
[2016-12-31 20:18] LABS: CHLORIDE 103 mmol/L (98-107)
[2016-12-31 20:19] LABS: POTASSIUM 4.8 mmol/L (3.6-5.2); SODIUM 138 mmol/L (132-148)
[2016-12-31 20:21] LABS: ALB/GLOB RATIO 1.2 (1.0-2.1); AST/SGOT 25 U/L (14-36); BILIRUBIN,TOTAL 0.5 mg/dL (0.2-1.3); CARBON DIOXIDE 14 mmol/L (22-30); GFR AFRICAN-AMERICAN 29; TOTAL PROTEIN 6.8 g/dL (6.3-8.3)
[2016-12-31 20:25] LABS: ABG ALLEN TEST A; DRAW SITE RRA
[2016-12-31] MEDS ORDERED: Sodium Chloride 0.9% 1,000 ML IV ONE (20:29)
[2016-12-31] MEDS ORDERED: Sodium Chloride 0.9% 1,000 ML ONE (20:29)
[2016-12-31] MEDS ORDERED: (Novolin R) Insulin Human Regular 100 units/ml vial IV STA (20:29)
[2016-12-31] MEDS ORDERED: (Novolin R) Insulin Human Regular 100 units/ml vial ONE (20:34)
[2016-12-31 20:53] LABS: ALKALINE PHOSPHATASE 118 U/L (38-126); ALT/SGPT 24 U/L (9-52); BLOOD UREA NITROGEN 27 mg/dL (7-17); CALCIUM 8.9 mg/dl (8.6-10.4)
[2016-12-31 20:55] LABS: GLUCOSE,RANDOM 651 mg/dL (65-105)
[2016-12-31] MEDS ORDERED: Sodium Chloride 0.9% 1,000 ML IV SCH (23:00)
--- NOTE | 2017-01-01 01:42 | CP.PCM.HP ---
<Jerome Hendrickson - Last Filed: 01/01/17 05:24> History of Present Illness - History of Present Illness History of Present Illness: PGY1 Medicine Note for Dr. Boris Harrell 26 year old female with a PMH of diabetes (type 1), HTN, seizures, anxiety and depression was brought BIBA to ED, accompanied by her mother, with complaints of vomiting and seizures. The mother gave the hx that the patient has vomiting blood since this morning and that she has had multiple seizures . The mother states that the daughter was discharged from hospital on 12/29/2016, for the same symptoms. Overall her evaluation was normal. She was also seen by neurologist and instructed to follow up with Epilepsy center for further monitoring and was suggested to have a psychiatric evaluation due to anxiety leading to feigning seizures. She says the patient slept out at her friend's house last night and she is unsure if she took any of her medications. Upon arrival to the ED, the patient was vomiting and actively seizing with EMS aiding. Patient's mother denies f/c, d/c, sob or other complaints. Mother, "Last time she was here, they said everything was just in her head and that the seizures were not real. If this is the case, can we please try and get her some help so she stops doing this." During exam, patient had 3 "seizures" in which she had fully body convulsions. These convulsions lasted approximated 15-30 seconds. As soon as convulsions ended, patient would begin to cry and scream that she needs Ativan. "I don't want to ! Please give me Ativan!" This happened 3 times separate times when the resident attempted to get any history from the patient. PMH - diabetes (type 1), HTN, seizures, anxiety, anemia and depression PSH - denies Family - M. Grandmother - unknown heart condition Social - Former smoker (quit 5 yrs ago), former alcohol use, denies illicit drug use; unemployed, lives with mother Allergies - NKDA Present on Admission - Present on Admission Any Indicators Present on Admission: No Review of Systems - Review of Systems All systems: reviewed and no additional remarkable complaints except - Constitutional Constitutional: As Per HPI - EENT Eyes: As Per HPI Ears: As Per HPI - Cardiovascular Cardiovascular: As Per HPI. absent: Chest Pain - Respiratory Respiratory: As Per HPI - Gastrointestinal Gastrointestinal: As Per HPI, Abdominal Pain, Nausea, Vomiting (blood in vomit) . absent: Constipation, Diarrhea - Genitourinary Genitourinary: As Per HPI - Musculoskeletal Musculoskeletal: As Per HPI - Integumentary Integumentary: As Per HPI - Neurological Neurological: Convulsions - Endocrine Endocrine: As Per HPI - Hematologic/Lymphatic Hematologic: As Per HPI Past Patient History - Infectious Disease Hx of Infectious Diseases: None - Past Medical History & Family History Past Medical History?: Yes - Past Social History Smoking Status: Former Smoker Alcohol: None Drugs: Denies - CARDIAC Hx Hypertension: Yes - PULMONARY Hx Respiratory Disorders: No - NEUROLOGICAL Hx Seizures: Yes - HEENT Hx HEENT Problems: Yes Other/Comment: blurred vision both eyes uses eyeglasses - RENAL Hx Chronic Kidney Disease: No - ENDOCRINE/METABOLIC Hx Endocrine Disorders: Yes Hx Diabetes Mellitus Type 1: Yes - HEMATOLOGICAL/ONCOLOGICAL Hx Anemia: Yes - INTEGUMENTARY Hx Dermatological Problems: No - MUSCULOSKELETAL/RHEUMATOLOGICAL Hx Musculoskeletal Disorders: Yes Hx Falls: Yes - GASTROINTESTINAL Hx Gastrointestinal Disorders: Yes (SEE COMMENT) Other/Comment: gastroparesis - GENITOURINARY/GYNECOLOGICAL Hx Genitourinary Disorders: No - PSYCHIATRIC Hx Anxiety: Yes Hx Depression: Yes Hx Substance Use: No - SURGICAL HISTORY Hx Surgeries: Yes - ANESTHESIA Hx Anesthesia: Yes Hx Anesthesia Reactions: No Hx Malignant Hyperthermia: No Meds Allergies/Adverse Reactions: Allergies Allergy/AdvReac Type Severity Reaction Status Date / Time No Known Allergies Allergy Verified 12/23/16 19:17 Physical Exam - Constitutional Appears: In Acute Distress (Crying, screaming "i don't want to . please give me ativan.") - Head Exam Head Exam: ATRAUMATIC, NORMOCEPHALIC - Eye Exam Eye Exam: Conjunctival injection (believed to be 2/2 crying), EOMI. absent: Nystagmus Pupil Exam: NORMAL ACCOMODATION, PERRL - ENT Exam ENT Exam: Mucous Membranes Moist - Neck Exam Neck exam: Positive for: Full Rom, Normal Inspection. Negative for: Lymphadenopathy - Respiratory Exam Respiratory Exam: Clear to Auscultation Bilateral. absent: Rales, Wheezes, Respiratory Distress - Cardiovascular Exam Cardiovascular Exam: REGULAR RHYTHM, +S1, +S2 - GI/Abdominal Exam GI & Abdominal Exam: Guarding (voluntary), Soft, Tenderness (Tender to palpation in RUQ; LUQ; LLQ). absent: Distended, Rebound, Rigid Additional comments: Patient actively dry heaving during exam. There was some blood in her vomit bucket. ED nurse states that she vomited the susannah mana they attempted to give her earlier. - Extremities Exam Extremities exam: Positive for: normal inspection, pedal pulses present - Neurological Exam Neurological exam: Alert, Oriented x3 - Psychiatric Exam Psychiatric exam: Anxious - Skin Skin Exam: Diaphoretic (pt actively vomiting.), Intact, Normal Color, Warm Results - Vital Signs Recent Vital Signs: Last Vital Signs Temp 98.8 F 12/31/16 23:30 Pulse 129 H 12/31/16 23:30 Resp 18 12/31/16 23:30 BP 166/96 H 12/31/16 23:30 Pulse Ox 100 12/31/16 23:30 - Labs Result Diagrams: 12/31/16 19:27 12/31/16 20:00 Labs: Laboratory Results - last 24 hr 12/31/16 12/31/16 12/31/16 20:52 21:52 22:47 POC Glucose (mg/dL) > 500 H* 472 H* 346 H 01/01/17 00:56 POC Glucose (mg/dL) 235 H Assessment & Plan (1) Hyperglycemia Assessment and Plan: Blood Glucose 651 on admission. Patient given 20 units of insulin. Blood Glucose improved to 168. Started on NS @100mL/hr Placed on ISS - med Held Home Insulin Regiment due to patient actively vomiting, placed on NPO diet - Once pt is no longer vomiting, tolerating a regular diet, restart home insulin regiment - Lantus 17 units SC HS; Novolog 7 units TIDAC F/U - Glucagon Levels Status: Acute (2) Seizure Assessment and Plan: Neuro Consult: Dr. Keane Psych Consult: Dr. Mckeon Patient believed to be feigning seizures on previous stay 12/24/16-12/29/16. Patient was started on Lexapro 5mg on d/c, unknown if pt actually took medications. Continue home medication: * Keppra 750mg IV Q12 * Seizure precautions * F/U Neuro and Psych recommendations Status: Acute (3) Abdominal pain with vomiting Assessment and Plan: PRIOR STUDY ON 12/27/2016 - CT abdomen/pelvis (no contrast because patient refused ): diffusely thickened bladder wall. recommendations for UA to rule out cystitis. UA performed on 12/24: No signs of obvious infectious etiology Placed on Home medication * Reglan 5mg PO Q8H PRN Status: Acute (4) HTN (hypertension) Assessment and Plan: Nifedipine 30mg PO daily Lisinopril 20mg PO daily Norvasc 10mg PO daily Monitor with vital checks Status: Acute (5) Uncontrolled diabetes mellitus Assessment and Plan: Held Home Insulin Regiment due to patient actively vomiting, placed on NPO diet - Once pt is no longer vomiting, tolerating a regular diet, restart home insulin regiment - Lantus 17 units SC HS; Novolog 7 units TIDAC Placed on Insulin Sliding Scale Status: Acute (6) Depressive disorder Assessment and Plan: Continued Patient's Home Medications * Xanax 0.5mg PO daily * Sertraline 25mg PO HS Status: Acute (7) Prophylactic measure Assessment and Plan: Started Protonix 40mg IVP daily Placed on SCDs Anti-coag contraindicated due to patient vomiting blood Status: Acute <Juan Harrell - Last Filed: 01/01/17 19:02> Results - Vital Signs Recent Vital Signs: Last Vital Signs Temp 98.4 F 01/01/17 16:00 Pulse 97 H 01/01/17 16:00 Resp 20 01/01/17 16:00 BP 129/80 01/01/17 16:00 Pulse Ox 96 01/01/17 16:00 - Labs Result Diagrams: 01/01/17 11:59 01/01/17 08:54 Labs: Laboratory Results - last 24 hr 12/31/16 12/31/16 12/31/16 20:52 21:52 22:47 WBC RBC Hgb Hct MCV MCH MCHC RDW Plt Count MPV Neut % (Auto) Lymph % (Auto) [place] % (Auto) Eos % (Auto) Baso % (Auto) Neut # Lymph # [place] # Eos # Baso # Neutrophils % (Manual) Lymphocytes % (Manual) Monocytes % (Manual) Platelet Estimate Hypochromasia (manual) Poikilocytosis (manual Anisocytosis (manual) Tear Drop Cells Sodium Potassium Chloride Carbon Dioxide Anion Gap BUN Creatinine Est GFR ( Amer) Est GFR (Non-Af Amer) POC Glucose (mg/dL) > 500 H* 472 H* 346 H Random Glucose Calcium Phosphorus Magnesium Total Bilirubin AST ALT Alkaline Phosphatase Total Protein Albumin Globulin Albumin/Globulin Ratio Procalcitonin Prolactin 01/01/17 01/01/17 01/01/17 00:56 03:08 03:37 WBC RBC Hgb Hct MCV MCH MCHC RDW Plt Count MPV Neut % (Auto) Lymph % (Auto) [place] % (Auto) Eos % (Auto) Baso % (Auto) Neut # Lymph # [place] # Eos # Baso # Neutrophils % (Manual) Lymphocytes % (Manual) Monocytes % (Manual) Platelet Estimate Hypochromasia (manual) Poikilocytosis (manual Anisocytosis (manual) Tear Drop Cells Sodium Potassium Chloride Carbon Dioxide Anion Gap BUN Creatinine Est GFR ( Amer) Est GFR (Non-Af Amer) POC Glucose (mg/dL) 235 H 157 H 168 H Random Glucose Calcium Phosphorus Magnesium Total Bilirubin AST ALT Alkaline Phosphatase Total Protein Albumin Globulin Albumin/Globulin Ratio Procalcitonin Prolactin 01/01/17 01/01/17 01/01/17 06:12 07:46 08:54 WBC 14.8 H RBC 3.88 Hgb 10.8 L Hct 32.7 L MCV 84.2 MCH 27.8 MCHC 33.0 RDW 14.5 Plt Count 320 MPV 9.9 Neut % (Auto) 91.8 H Lymph % (Auto) 5.5 L [place] % (Auto) 2.3 Eos % (Auto) 0.0 Baso % (Auto) 0.4 Neut # 13.6 H Lymph # 0.8 L [place] # 0.3 Eos # 0.0 Baso # 0.1 Neutrophils % (Manual) 90 H Lymphocytes % (Manual) 8 L Monocytes % (Manual) 2 Platelet Estimate Normal Hypochromasia (manual) Slight Poikilocytosis (manual Slight Anisocytosis (manual) Slight Tear Drop Cells Slight Sodium Potassium Chloride Carbon Dioxide Anion Gap BUN Creatinine Est GFR ( Amer) Est GFR (Non-Af Amer) POC Glucose (mg/dL) 212 H 291 H Random Glucose Calcium Phosphorus Magnesium Total Bilirubin AST ALT Alkaline Phosphatase Total Protein Albumin Globulin Albumin/Globulin Ratio Procalcitonin Prolactin 01/01/17 01/01/17 01/01/17 08:54 08:54 08:54 WBC RBC Hgb Hct MCV MCH MCHC RDW Plt Count MPV Neut % (Auto) Lymph % (Auto) [place] % (Auto) Eos % (Auto) Baso % (Auto) Neut # Lymph # [place] # Eos # Baso # Neutrophils % (Manual) Lymphocytes % (Manual) Monocytes % (Manual) Platelet Estimate Hypochromasia (manual) Poikilocytosis (manual Anisocytosis (manual) Tear Drop Cells Sodium 146 Potassium 3.5 L Chloride 109 H Carbon Dioxide 22 Anion Gap 19 BUN 28 H Creatinine 2.2 H Est GFR ( Amer) 32 Est GFR (Non-Af Amer) 27 POC Glucose (mg/dL) Random Glucose 258 H Calcium 9.0 Phosphorus 3.5 Magnesium 1.9 Total Bilirubin 0.4 AST 22 ALT 24 Alkaline Phosphatase 86 Total Protein 6.0 L Albumin 3.1 L Globulin 3.0 Albumin/Globulin Ratio 1.0 Procalcitonin 4.70 H Prolactin 01/01/17 01/01/17 01/01/17 11:13 11:57 11:59 WBC 16.0 H RBC 3.56 L Hgb 9.9 L Hct 30.3 L MCV 85.3 MCH 27.7 MCHC 32.5 L RDW 14.4 Plt Count 298 MPV 10.0 Neut % (Auto) 90.7 H Lymph % (Auto) 5.1 L [place] % (Auto) 3.8 Eos % (Auto) 0.0 Baso % (Auto) 0.4 Neut # 14.5 H Lymph # 0.8 L [place] # 0.6 Eos # 0.0 Baso # 0.1 Neutrophils % (Manual) Lymphocytes % (Manual) Monocytes % (Manual) Platelet Estimate Hypochromasia (manual) Poikilocytosis (manual Anisocytosis (manual) Tear Drop Cells Sodium Potassium Chloride Carbon Dioxide Anion Gap BUN Creatinine Est GFR ( Amer) Est GFR (Non-Af Amer) POC Glucose (mg/dL) 226 H Random Glucose Calcium Phosphorus Magnesium Total Bilirubin AST ALT Alkaline Phosphatase Total Protein Albumin Globulin Albumin/Globulin Ratio Procalcitonin Prolactin 315.5 H 01/01/17 16:37 WBC RBC Hgb Hct MCV MCH MCHC RDW Plt Count MPV Neut % (Auto) Lymph % (Auto) [place] % (Auto) Eos % (Auto) Baso % (Auto) Neut # Lymph # [place] # Eos # Baso # Neutrophils % (Manual) Lymphocytes % (Manual) Monocytes % (Manual) Platelet Estimate Hypochromasia (manual) Poikilocytosis (manual Anisocytosis (manual) Tear Drop Cells Sodium Potassium Chloride Carbon Dioxide Anion Gap BUN Creatinine Est GFR ( Amer) Est GFR (Non-Af Amer) POC Glucose (mg/dL) 434 H* Random Glucose Calcium Phosphorus Magnesium Total Bilirubin AST ALT Alkaline Phosphatase Total Protein Albumin Globulin Albumin/Globulin Ratio Procalcitonin Prolactin Assessment & Plan - Date & Time Date: 01/01/17 (I have seen and examined the patient. I agree with the findings and plan of care as documented by Dr. Hendrickson. Patient with hyperglycemia , poorly controlled diabetes. Despite vomiting and not eating in the last 12 hours, patient's blood sugar continues to be elevated. Insulin given in ED. Continue IVF and insulin sliding scale. Adjust as needed. Reglan for intractable vomiting. Possibly diabetic gastroparesis. Continue to monitor renal function due to renal insufficiency. IVF for now. Continue home meds for history of seizure. Consult to neuro and psych. Suspicious for pseudoseizures due to patient requesting ativan while convulsing. Monitor for acute changes.) Time: 18:59 Attending/Attestation - Attestation I have personally seen and examined this patient.: Yes I have fully participated in the care of the patient.: Yes I have reviewed all pertinent clinical information: Yes
[2017-01-01] MEDS ORDERED: (Novolin R) Insulin Human Regular 100 units/ml vial SC SCH ×2 (07:30)
--- NOTE | 2017-01-01 07:53 | PCM.RRT ---
<BobbyMelita S. - Last Filed: 01/01/17 08:26> PLASTIC DUPLICATOR Nurses Assessment - Situation PLASTIC DUPLICATOR Responder Arrival Time: 07:42 PLASTIC DUPLICATOR Reason for Call: Tachycardia PLASTIC DUPLICATOR Called By: RN - Constitutional Appears: In Acute Distress - Head Head Exam: ATRAUMATIC, NORMAL INSPECTION, NORMOCEPHALIC - Eyes Eye Exam: EOMI, Normal appearance, PERRL - Respiratory Exam Respiratory Exam: Clear to Ausculation Bilateral, NORMAL BREATHING PATTERN - Cardiovascular Exam Cardiovascular Exam: Tachycardia, +S1, +S2 - Neurological Exam Neurological Exam: Alert, Awake, Oriented x3 Plan - Assessment of Findings&Treatment Plan Rapid response was called per nurse due to tachycardia and seizure. Per nurse the patient was laying on her side and moving her body back and forth. Patient was responsive when physician asked if she wanted Ativan she responded saying yes. Upon arrival her B/P 210/125; and later decreased to 212/125. Her glucose was 291 she had not received her insulin this morning and she was kept NPO due to vomiting but was receiving normal saline fluids. Patient was nauseous and she was vomiting 2x. Patient received 8mg of Zofran. Ordered 1mg of Ativan; 10mg Hydralazine; 5mg Lopressor; 10units of insulin; chest x-ray; procalcitonin; mag and phos. Patient was transferred to [facility]. Blood pressure was rechecked at 7:51am and was 206/128 and still continued to be tachycardic in the 90s. Another 1mg dose of Ativan was ordered. The neurologist Dr. Keane will be notified. <Bhavani Palafox V - Last Filed: 01/01/17 09:20> Attending/Attestation - Attestation I have personally seen and examined this patient.: Yes I have fully participated in the care of the patient.: Yes I have reviewed all pertinent clinical information, including history, physical exam and plan: Yes Notes (Text): Brief Hospitalist Note Rapid response was called per nurse due to tachycardia, witnessed seizure, and uncontrolled blood presure. Per nurse the patient was laying on her side and moving her body back and forth. Patient was responsive when my colleague, Dr Wise asked if she wanted Ativan she responded saying yes and the back and forth subsided prior to Ativan. Upon arrival her B/P 210/125; and later decreased to 212/125. Her glucose was 291 she had not received her insulin this morning and she was kept NPO due to vomiting but was receiving normal saline fluids. Patient was nauseous and she was vomiting 2x. Patient received total dose of Ativan 1.5 mg IV X1, received Hydralazine 10mg IV X1, Vasotec 2.5mg IVX and Lopressor 5mg IV X1-->Blood pressure controlled at 157/69 HR: 98. Patient is very anxious individual, history of psuedoseizures and has been in out of the hospital. Patient given: Zofran 4mg IV X1 and Reglan 10mg IVX1. Patient's nausea was persistent in spite of first Zofran and vomitus seen at bedside no blood observed and given Reglan 10mg IVX1. Resident Claudio spoke with pharmacy to clarify anti-emetic. Patient has not made follow-up with the Epilepsy center because she reports she comes to the hospital instead; recently discharged on Thursday. Per review of EMR has been in and out at least 4 other hospital visits. Patient reports she keeps throwing up at home and has not taken the new dose of Keppra 750mg PO bid not her anti-hypertensive medications because of the persistent throwing up. Patient reports she is checking her sugars 4x day trying to eat small frequent meals but reports he sugar can vary from 20-200s respectively. Aspiration precautions. Seizure precautions. Patient instructed that benzodiapzene can lead to addictive behavior and reports she asks for Ativan for both her "seizure" and severe anxiety. patient is also aware we may need to give her NGT tube. EKG to be repeated but I believe tachycardia is related to her anxiety and chest xray completed. Full note to follow.
[2017-01-01] MEDS ORDERED: Sodium Chloride 0.9% 1,000 ML IV SCH (08:15)
[2017-01-01] MEDS ORDERED: Enalaprilat 2.5 MG/2 ML IV ONE (08:15)
[2017-01-01] MEDS ORDERED: Metoprolol 1 mg/ml Inj IVP ONE (08:30)
[2017-01-01 09:08] LABS: BASO # 0.1 K/uL (0.0-0.2); BASO % 0.4 % (0.0-2.0); HEMATOCRIT 32.7 % (34.0-47.0); LYMPH # 0.8 K/uL (1.0-4.3); LYMPH % 5.5 % (20.0-40.0); MEAN CELL VOLUME 84.2 fL (81.0-99.0); MEAN CORPUSCULAR HEMOGLOBIN 27.8 pg (27.0-31.0); MEAN PLATELET VOLUME 9.9 fL (7.2-11.7); MONO # 0.3 K/uL (0.0-0.8); MONO % 2.3 % (0.0-10.0); PLATELET COUNT 320 K/uL (130-400); RED CELL DISTRIBUTION WIDTH 14.5 % (11.5-14.5); WHITE BLOOD COUNT 14.8 K/uL (4.8-10.8)
[2017-01-01 09:21] LABS: MAGNESIUM 1.9 mg/dL (1.6-2.3); PHOSPHOROUS 3.5 mg/dL (2.5-4.5)
[2017-01-01 09:53] LABS: BILIRUBIN,TOTAL 0.4 mg/dL (0.2-1.3); POTASSIUM 3.5 mmol/L (3.6-5.2)
--- NOTE | 2017-01-01 10:08 | RAD ---
Chest x-ray single frontal view History: Aspiration pneumonia. Comparison: 12/18/2016 Findings: Mild venous congestion. Minimal patchy increased markings at the left lung base. Heart size within normal limits. Mild granulomatous change in the upper lung [place]. Impression: No gross focal infiltrate or effusion. Mild venous congestion. Minimal patchy increased markings at the left lung base.
[2017-01-01 10:37] LABS: NEUTROPHIL 90 % (50-75); TOTAL CELLS COUNTED 100
[2017-01-01] MEDS: NIFEdipine 30 mg ER Tab PO SCH (10:51)
[2017-01-01 12:04] LABS: BASO # 0.1 K/uL (0.0-0.2); BASO % 0.4 % (0.0-2.0); HEMATOCRIT 30.3 % (34.0-47.0); LYMPH # 0.8 K/uL (1.0-4.3); LYMPH % 5.1 % (20.0-40.0); MEAN CELL VOLUME 85.3 fL (81.0-99.0); MEAN CORPUSCULAR HEMOGLOBIN 27.7 pg (27.0-31.0); MEAN CORPUSCULAR HGB CONC 32.5 g/dL (33.0-37.0); MONO # 0.6 K/uL (0.0-0.8); MONO % 3.8 % (0.0-10.0); RED CELL DISTRIBUTION WIDTH 14.4 % (11.5-14.5)
--- NOTE | 2017-01-01 12:19 | PCM.PSYCH ---
Initial Psychiatric Evaluation - Initial Psychiatric Evaluation Type of Admission: Voluntary Legal Status: Capacity Chief Complaint (in patient's own words): "I need water!!" (she is NPO) History of Present Illness and Precipitating Events: The pt is seen, chart reviewed and case discussed. Consult was requested for her anxiety, depression and "pseudo-seizures" She was seen as a consult last week for the same reasons and discharged on . As before: She is a 26 y/o female, tam, no child, lives with her mo, unemployed as she lost her job at [employer] in July 2016. She reported some "hypoglycemia" induced seizures until late last year, which started 4 years ago. Since March 2016 she has had what her doctors call pseudo-seizures. She was upset that some staff allegedly called it "fake seizures." She claimed she has no reason fake anything and that she wants to get better and find a job. Interestingly, her prolactin levels have all come high. EEG was "normal" and no video-EEG done. She, however, admitted that she has been so stressed (broke up with a GF who later , lost her job, etc.) and depressed and is very anxious. She can sense the seizures coming but then loses consciousness and sometimes throws up after the episode. They last less than 2 minutes. Now: She says she started to throw up after the d/c on Thursdaya nd had 1-2 episodes of seizure. She again had an episode in front of the check writer and the medical student. It was obviously pseudo-seizure; no post ictal confusion, immediately spoke as it was ending, atypical twitches etc. It lasted maybe 1 minute and as before it was stress induced. She was begging for water from the nurse and us. She fulfills criteria for major depression and generalized anxiety. Still v anxious. No drug/alcohol hx No trauma hx except for the abovementioned loss. She used xanax and zoloft in the past but had SEs with the latter. Past psych hx: Denies Family psych hx: Denies Med hx: Cataracts and DM. Current Medications: Active Medications Generic Name Dose Route Start Last Admin Trade Name Freq PRN Reason Stop Dose Admin Amlodipine Besylate 10 mg 01/01/17 10:00 01/01/17 10:51 Norvasc PO 10 mg DAILY KELVIN Administration Cyanocobalamin 1,000 mcg 01/01/17 10:00 01/01/17 10:51 Vitamin B12 1000 Mcg Tab PO 1,000 mcg DAILY KELVIN Administration Escitalopram Oxalate 5 mg 01/01/17 12:15 Lexapro PO DAILY KELVIN Ferrous Sulfate 325 mg 01/01/17 10:00 01/01/17 10:51 Feosol PO 325 mg BID KELVIN Administration Hydralazine HCl 10 mg 01/01/17 08:45 Apresoline IVP Q6H PRN Systolic Blood Pressure Sodium Chloride 1,000 mls @ 50 mls/hr 01/01/17 08:15 01/01/17 08:26 Sodium Chloride 0.9% IV 50 mls/hr .Q20H KELVIN Administration Insulin Human Regular 0 unit 01/01/17 07:46 Novolin R SC [facility] Protocol Levetiracetam 750 mg 01/01/17 10:00 01/01/17 10:51 Keppra PO 750 mg BID KELVIN Administration Lisinopril 20 mg 01/01/17 10:00 01/01/17 10:51 Zestril PO 20 mg DAILY KELVIN Administration Metoclopramide HCl 10 mg 01/01/17 08:30 01/01/17 08:20 Reglan IVP 10 mg Q6H PRN Administration Nausea/Vomiting Nifedipine 30 mg 01/01/17 10:00 01/01/17 10:51 Procardia Xl PO 30 mg DAILY KELVIN Administration Ondansetron HCl 4 mg 01/01/17 08:18 Zofran Inj IVP Q6H PRN Nausea/Vomiting Pantoprazole Sodium 40 mg 01/01/17 10:00 01/01/17 10:51 Protonix Inj IVP 40 mg DAILY KELVIN Administration Vitamin B Complex/Folic Acid 1 tab 01/01/17 10:00 01/01/17 10:50 Berroca PO 1 tab DAILY KELVIN Administration Past Psychiatric History - Past Psychiatric History Previous Treatment History: None Pertinent Medical Hx (Current Medical&Sleep Prob, Allergies): Allergies Allergy/AdvReac Type Severity Reaction Status Date / Time No Known Allergies Allergy Verified 12/23/16 19:17 Cyanocobalamin [Vitamin B12 1000 mcg Tab] 1,000 mcg PO DAILY 10/16/16 Lisinopril [Zestril] 20 mg PO DAILY 10/16/16 Ferrous Sulfate [Feosol] 325 mg PO BID 12/07/16 Insulin Glargine, Recombina [Lantus] 17 unit SQ HS #0 12/09/16 Insulin Lispro [Humalog Kwikpen U-100] 7 unit SQ TID #0 12/09/16 Ondansetron ODT [Zofran ODT] 4 mg PO PRN PRN 12/18/16 Famotidine 20 mg PO Q12H 12/23/16 NIFEdipine ER [Procardia XL] 30 mg PO DAILY #30 ter 12/29/16 levETIRAcetam [Keppra] 750 mg PO BID #60 tab 12/29/16 Metoclopramide HCl [Reglan] 5 mg PO Q8H PRN 12/31/16 Vit B12/Intrinsic Fact/Folate [Intrinsi [id number] Tablet] 1 each PO DAILY 12/31 Xanax 0.5 mg PO DAILY 12/31/16 Zoloft 25 mg PO HS 12/31/16 amLODIPine [Norvasc] 10 mg PO DAILY 12/31/16 Review of Systems - Neurological Neurological: Convulsions - Psychiatric Psychiatric: Abnormal Sleep Pattern, Anxiety, Irritability. absent: Hallucinations, Homicidal Ideation, Suicidal Ideation Mental Status Examination - Personal Presentation Personal Presentation: Looks stated age - Affect Affect: Constricted - Motor Activity Motor Activity: Other (restless, somewhat agitated) - Reliability in Providing Information Reliability in Providing Information: Fair - Speech Speech: Organized - Mood Mood: Depressed, Anxious - Formal Thought Process Formal Thought Process: No Impairment - Cognitive Functions Orientation: Person, Place, Situation, Time Sensorium: Alert Attention/Concentration: Easily distracted Estimate of Intelligence: Average Judgement: Intact, as evidence by: Insight regarding need for hospitalization Memory: Recent intact, as evidence by: Ability to recall events of the day, Remote intact, as evidenced by: Abilit to recall sig. life events - Risk Risk: Seizure, Diminished functioning - Strength & Assets Inventory Strength & Assets Inventory: Family support, Employment history, Cooperative - Limitations Limitations: Other DSM 5 DX - DSM 5 DSM 5 Diagnosis: Major depression CARL Conversion d/o - Recommended/Plan of Treatment Treatment Recommendations and Plan of Treatment: Depression and Anxiety: Resume lexapro, not zoloft (had SEs) Gabapentin for anxiety Inderal or buspar later on if needed Support and psychoed Refer to indiv. psychotherapy at [facility] Conversion d/o (pseudoseizures): Minimize attention and benzo use Support and non-judgmental psychoeducation She needs correction outpt 32 min
[2017-01-01] MEDS: (Novolin R) Insulin Human Regular 100 units/ml vial SC SCH ×3 (12:42→21:16)
[2017-01-01] MEDS ORDERED: Piperacillin/Tazobact 2.25 GM in Sodium Chloride 100 ML IVPB SCH (13:30)
--- NOTE | 2017-01-01 14:16 | CP.PCM.CON ---
History of Present Illness - History of Present Illness History of Present Illness: Ms. Larry is a 26-year-old woman who has been admitted multiple times for seizures that have always been associated with either hyperglycemia or hypoglycemia. She has also had episodes of non-epileptic spells. She was started on Keppra before despite not having a true underlying epilepsy. Her seizures were previously metabolic in nature and were induced rather than being caused by an organic etiology. The patient also exhibits behavior consistent with psychogenic polydypsia and has knowingly caused her sugar to increase by drinking sugary drinks. She claims that she uses insulin as instructed, but when she leaves the hospital, she does not appear to be controlling her glucose. She has an business analytics analyst who recommended an insulin pump. Review of Systems - Review of Systems All systems: reviewed and no additional remarkable complaints except Past Patient History - Infectious Disease Hx of Infectious Diseases: None - Past Medical History & Family History Past Medical History?: Yes - Past Social History Smoking Status: Former Smoker Alcohol: None Drugs: Denies - CARDIAC Hx Hypertension: Yes - PULMONARY Hx Respiratory Disorders: No - NEUROLOGICAL Hx Seizures: Yes - HEENT Hx HEENT Problems: Yes Other/Comment: blurred vision both eyes uses eyeglasses - RENAL Hx Chronic Kidney Disease: No - ENDOCRINE/METABOLIC Hx Endocrine Disorders: Yes Hx Diabetes Mellitus Type 1: Yes - HEMATOLOGICAL/ONCOLOGICAL Hx Anemia: Yes - INTEGUMENTARY Hx Dermatological Problems: No - MUSCULOSKELETAL/RHEUMATOLOGICAL Hx Musculoskeletal Disorders: Yes Hx Falls: Yes - GASTROINTESTINAL Hx Gastrointestinal Disorders: Yes (SEE COMMENT) Other/Comment: gastroparesis - GENITOURINARY/GYNECOLOGICAL Hx Genitourinary Disorders: No - PSYCHIATRIC Hx Anxiety: Yes Hx Depression: Yes Hx Substance Use: No - SURGICAL HISTORY Hx Surgeries: Yes - ANESTHESIA Hx Anesthesia: Yes Hx Anesthesia Reactions: No Hx Malignant Hyperthermia: No Meds Allergies/Adverse Reactions: Allergies Allergy/AdvReac Type Severity Reaction Status Date / Time No Known Allergies Allergy Verified 12/23/16 19:17 - Medications Medications: Current Medications Amlodipine Besylate (Norvasc) 10 mg PO DAILY [facility] Last Admin: 01/01/17 10:51 Dose: 10 mg Cyanocobalamin (Vitamin B12 1000 Mcg Tab) 1,000 mcg PO DAILY [facility] Last Admin: 01/01/17 10:51 Dose: 1,000 mcg Escitalopram Oxalate (Lexapro) 5 mg PO DAILY [facility] Ferrous Sulfate (Feosol) 325 mg PO BID [facility] Last Admin: 01/01/17 10:51 Dose: 325 mg Hydralazine HCl (Apresoline) 10 mg IVP Q6H PRN PRN Reason: Systolic Blood Pressure Metronidazole (Flagyl) 500 mg in 100 mls @ 100 mls/hr IVPB Q8 [facility] Piperacillin Sod/Tazobactam (Sod 2.25 gm/ Sodium Chloride) 100 mls @ 200 mls/ hr IVPB Q6H [facility] Sodium Chloride (Sodium Chloride 0.9%) 1,000 mls @ 100 mls/hr IV .Q10H [facility] Insulin Human Regular (Novolin R) 0 unit SC ACHS [facility] PRN Reason: Protocol Last Admin: 01/01/17 12:42 Dose: Not Given Levetiracetam (Keppra) 750 mg PO BID [facility] Last Admin: 01/01/17 10:51 Dose: 750 mg Lisinopril (Zestril) 20 mg PO DAILY [facility] Last Admin: 01/01/17 10:51 Dose: 20 mg Metoclopramide HCl (Reglan) 10 mg IVP Q6H PRN PRN Reason: Nausea/Vomiting Last Admin: 01/01/17 08:20 Dose: 10 mg Nifedipine (Procardia Xl) 30 mg PO DAILY [facility] Last Admin: 01/01/17 10:51 Dose: 30 mg Ondansetron HCl (Zofran Inj) 4 mg IVP Q6H PRN PRN Reason: Nausea/Vomiting Pantoprazole Sodium (Protonix Inj) 40 mg IVP DAILY [facility] Last Admin: 01/01/17 10:51 Dose: 40 mg Vitamin B Complex/Folic Acid (Berroca) 1 tab PO DAILY [facility] Last Admin: 01/01/17 10:50 Dose: 1 tab Physical Exam - Constitutional Appears: Well - Head Exam Head Exam: ATRAUMATIC, NORMAL INSPECTION, NORMOCEPHALIC - Eye Exam Eye Exam: EOMI, Normal appearance, PERRL - ENT Exam ENT Exam: Mucous Membranes Moist, Normal Exam - Neck Exam Neck exam: Positive for: Normal Inspection - Respiratory Exam Respiratory Exam: Clear to Auscultation Bilateral, NORMAL BREATHING PATTERN - Cardiovascular Exam Cardiovascular Exam: REGULAR RHYTHM, +S1, +S2 - GI/Abdominal Exam GI & Abdominal Exam: Normal Bowel Sounds, Soft. absent: Tenderness - Extremities Exam Extremities exam: Positive for: normal inspection - Back Exam Back exam: NORMAL INSPECTION - Neurological Exam Neurological exam: Alert, CN II-XII Intact, Normal Gait, Oriented x3, Reflexes Normal - Psychiatric Exam Psychiatric exam: Anxious Additional comments: defiant and continues to ask for sugary drinks despite knowing their harm. - Skin Skin Exam: Dry, Intact, Normal Color, Warm Results - Vital Signs Recent Vital Signs: Last Vital Signs Temp 98.5 F 01/01/17 08:00 Pulse 126 H 01/01/17 08:00 Resp 22 01/01/17 08:00 BP 212/125 H 01/01/17 08:16 Pulse Ox 98 01/01/17 08:00 - Labs Result Diagrams: 01/01/17 11:59 01/01/17 08:54 Labs: Laboratory Results - last 24 hr 12/31/16 12/31/16 12/31/16 20:52 21:52 22:47 WBC RBC Hgb Hct MCV MCH MCHC RDW Plt Count MPV Neut % (Auto) Lymph % (Auto) [place] % (Auto) Eos % (Auto) Baso % (Auto) Neut # Lymph # [place] # Eos # Baso # Neutrophils % (Manual) Lymphocytes % (Manual) Monocytes % (Manual) Platelet Estimate Hypochromasia (manual) Poikilocytosis (manual Anisocytosis (manual) Tear Drop Cells Sodium Potassium Chloride Carbon Dioxide Anion Gap BUN Creatinine Est GFR ( Amer) Est GFR (Non-Af Amer) POC Glucose (mg/dL) > 500 H* 472 H* 346 H Random Glucose Calcium Phosphorus Magnesium Total Bilirubin AST ALT Alkaline Phosphatase Total Protein Albumin Globulin Albumin/Globulin Ratio Procalcitonin Prolactin 01/01/17 01/01/17 01/01/17 00:56 03:08 03:37 WBC RBC Hgb Hct MCV MCH MCHC RDW Plt Count MPV Neut % (Auto) Lymph % (Auto) [place] % (Auto) Eos % (Auto) Baso % (Auto) Neut # Lymph # [place] # Eos # Baso # Neutrophils % (Manual) Lymphocytes % (Manual) Monocytes % (Manual) Platelet Estimate Hypochromasia (manual) Poikilocytosis (manual Anisocytosis (manual) Tear Drop Cells Sodium Potassium Chloride Carbon Dioxide Anion Gap BUN Creatinine Est GFR ( Amer) Est GFR (Non-Af Amer) POC Glucose (mg/dL) 235 H 157 H 168 H Random Glucose Calcium Phosphorus Magnesium Total Bilirubin AST ALT Alkaline Phosphatase Total Protein Albumin Globulin Albumin/Globulin Ratio Procalcitonin Prolactin 01/01/17 01/01/17 01/01/17 06:12 07:46 08:54 WBC 14.8 H RBC 3.88 Hgb 10.8 L Hct 32.7 L MCV 84.2 MCH 27.8 MCHC 33.0 RDW 14.5 Plt Count 320 MPV 9.9 Neut % (Auto) 91.8 H Lymph % (Auto) 5.5 L [place] % (Auto) 2.3 Eos % (Auto) 0.0 Baso % (Auto) 0.4 Neut # 13.6 H Lymph # 0.8 L [place] # 0.3 Eos # 0.0 Baso # 0.1 Neutrophils % (Manual) 90 H Lymphocytes % (Manual) 8 L Monocytes % (Manual) 2 Platelet Estimate Normal Hypochromasia (manual) Slight Poikilocytosis (manual Slight Anisocytosis (manual) Slight Tear Drop Cells Slight Sodium Potassium Chloride Carbon Dioxide Anion Gap BUN Creatinine Est GFR ( Amer) Est GFR (Non-Af Amer) POC Glucose (mg/dL) 212 H 291 H Random Glucose Calcium Phosphorus Magnesium Total Bilirubin AST ALT Alkaline Phosphatase Total Protein Albumin Globulin Albumin/Globulin Ratio Procalcitonin Prolactin 01/01/17 01/01/17 01/01/17 08:54 08:54 08:54 WBC RBC Hgb Hct MCV MCH MCHC RDW Plt Count MPV Neut % (Auto) Lymph % (Auto) [place] % (Auto) Eos % (Auto) Baso % (Auto) Neut # Lymph # [place] # Eos # Baso # Neutrophils % (Manual) Lymphocytes % (Manual) Monocytes % (Manual) Platelet Estimate Hypochromasia (manual) Poikilocytosis (manual Anisocytosis (manual) Tear Drop Cells Sodium 146 Potassium 3.5 L Chloride 109 H Carbon Dioxide 22 Anion Gap 19 BUN 28 H Creatinine 2.2 H Est GFR ( Amer) 32 Est GFR (Non-Af Amer) 27 POC Glucose (mg/dL) Random Glucose 258 H Calcium 9.0 Phosphorus 3.5 Magnesium 1.9 Total Bilirubin 0.4 AST 22 ALT 24 Alkaline Phosphatase 86 Total Protein 6.0 L Albumin 3.1 L Globulin 3.0 Albumin/Globulin Ratio 1.0 Procalcitonin 4.70 H Prolactin 01/01/17 01/01/17 01/01/17 11:13 11:57 11:59 WBC 16.0 H RBC 3.56 L Hgb 9.9 L Hct 30.3 L MCV 85.3 MCH 27.7 MCHC 32.5 L RDW 14.4 Plt Count 298 MPV 10.0 Neut % (Auto) 90.7 H Lymph % (Auto) 5.1 L [place] % (Auto) 3.8 Eos % (Auto) 0.0 Baso % (Auto) 0.4 Neut # 14.5 H Lymph # 0.8 L [place] # 0.6 Eos # 0.0 Baso # 0.1 Neutrophils % (Manual) Lymphocytes % (Manual) Monocytes % (Manual) Platelet Estimate Hypochromasia (manual) Poikilocytosis (manual Anisocytosis (manual) Tear Drop Cells Sodium Potassium Chloride Carbon Dioxide Anion Gap BUN Creatinine Est GFR ( Amer) Est GFR (Non-Af Amer) POC Glucose (mg/dL) 226 H Random Glucose Calcium Phosphorus Magnesium Total Bilirubin AST ALT Alkaline Phosphatase Total Protein Albumin Globulin Albumin/Globulin Ratio Procalcitonin Prolactin 315.5 H Assessment & Plan (1) Uncontrolled diabetes mellitus Assessment and Plan: The episodes of hyperglycemia and hypoglycemia are lowering the patient's seizure threshold and resulting in seizures. Keppra will not help and may make her worse, since a not uncommon side-effect of Keppra is personality changes, and even psychosis along with irritability. We will taper her off Keppra over the next week. I recommend continued assistance from psychiatry and social work. The patient should have better control of serum glucose. Thank you. Status: Acute Priority: High
[2017-01-01] MEDS: Piperacillin/Tazobact 2.25 GM in Sodium Chloride 100 ML IVPB SCH ×2 (14:30→19:19)
[2017-01-01] MEDS: metroNIDAZOLE IV 500 mg/100 ml 500 MG/100 ML BAG IVPB SCH ×3 (14:30→21:14)
--- NOTE | 2017-01-01 15:46 | CP.PCM.PN ---
<Addie Kerns - Last Filed: 01/01/17 15:39> Subjective - Date & Time of Evaluation Date of Evaluation: 01/01/17 Time of Evaluation: 15:39 - Subjective Subjective: Patient seen and examined at bedside. Patient having questionable seizure at time of exam. Patient would not respond after she quit seizing but when testing extremities, patient would not let her arm hit her face when dropping it from above. Patient had a pause in the seizure when told she would get Ativan. Patient was laying on her side and moving her body back and forth. Patient had multiple episodes of emesis this morning but was found by nursing to be sneaking juices and drinking them quickly. Patient appeared anxious ealier this morning during a rapid response that was called on her for tachycardia, HTN, and seizure. Objective - Vital Signs/Intake and Output Vital Signs (last 24 hours): Temp Pulse Resp BP Pulse Ox 98.5 F 126 H 22 212/125 H 98 01/01/17 08:00 01/01/17 08:00 01/01/17 08:00 01/01/17 08:16 01/01/17 08:00 - Medications Medications: Current Medications Amlodipine Besylate (Norvasc) 10 mg PO DAILY [facility] Last Admin: 01/01/17 10:51 Dose: 10 mg Cyanocobalamin (Vitamin B12 1000 Mcg Tab) 1,000 mcg PO DAILY [facility] Last Admin: 01/01/17 10:51 Dose: 1,000 mcg Escitalopram Oxalate (Lexapro) 5 mg PO DAILY [facility] Last Admin: 01/01/17 13:10 Dose: 5 mg Ferrous Sulfate (Feosol) 325 mg PO BID [facility] Last Admin: 01/01/17 10:51 Dose: 325 mg Hydralazine HCl (Apresoline) 10 mg IVP Q6H PRN PRN Reason: Systolic Blood Pressure Metronidazole (Flagyl) 500 mg in 100 mls @ 100 mls/hr IVPB Q8 [facility] Piperacillin Sod/Tazobactam (Sod 2.25 gm/ Sodium Chloride) 100 mls @ 200 mls/ hr IVPB Q6H [facility] Last Admin: 01/01/17 14:30 Dose: 200 mls/hr Sodium Chloride (Sodium Chloride 0.9%) 1,000 mls @ 100 mls/hr IV .Q10H [facility] Insulin Human Regular (Novolin R) 0 unit SC ACHS [facility] PRN Reason: Protocol Last Admin: 01/01/17 12:42 Dose: Not Given Levetiracetam (Keppra) 250 mg PO BID [facility] Lisinopril (Zestril) 20 mg PO DAILY [facility] Last Admin: 01/01/17 10:51 Dose: 20 mg Metoclopramide HCl (Reglan) 10 mg IVP Q6H PRN PRN Reason: Nausea/Vomiting Last Admin: 01/01/17 08:20 Dose: 10 mg Nifedipine (Procardia Xl) 30 mg PO DAILY [facility] Last Admin: 01/01/17 10:51 Dose: 30 mg Ondansetron HCl (Zofran Inj) 4 mg IVP Q6H PRN PRN Reason: Nausea/Vomiting Pantoprazole Sodium (Protonix Inj) 40 mg IVP DAILY [facility] Last Admin: 01/01/17 10:51 Dose: 40 mg Vitamin B Complex/Folic Acid (Berroca) 1 tab PO DAILY [facility] Last Admin: 01/01/17 10:50 Dose: 1 tab - Labs Labs: 01/01/17 11:59 01/01/17 08:54 - Constitutional Appears: In Acute Distress - Head Exam Head Exam: ATRAUMATIC, NORMAL INSPECTION, NORMOCEPHALIC - Eye Exam Eye Exam: Nystagmus Pupil Exam: PERRL - Respiratory Exam Respiratory Exam: Clear to Ausculation Bilateral - Cardiovascular Exam Cardiovascular Exam: Tachycardia, REGULAR RHYTHM, +S1 - GI/Abdominal Exam GI & Abdominal Exam: Soft - Extremities Exam Extremities Exam: Normal Inspection - Psychiatric Exam Psychiatric exam: Anxious - Skin Skin Exam: Intact, Normal Color, Warm Assessment and Plan - Assessment and Plan (Free Text) Assessment: Hyperglycemia with Hx DM Blood Glucose 651 on admission. Patient given 20 units of insulin. Blood Glucose improved to 168. Started on NS @100mL/hr Placed on ISS - med Held Home Insulin Regiment due to patient actively vomiting, placed on NPO diet - Once pt is no longer vomiting, tolerating a regular diet, restart home insulin regiment - Lantus 17 units SC HS; Novolog 7 units TIDAC F/U - Glucagon Levels Seizure Neuro Consult: Dr. Cruz * Wean off of Keppra 750mg IV Q12 because seizures seem to be 2/2 hyper/ hypoglycemia Psych Consult: Dr. Mckeon * Depression and Anxiety: * Resume lexapro, not zoloft (had SEs) * Gabapentin for anxiety * Inderal or buspar later on if needed * Support and psychoed * Refer to indiv. psychotherapy at [facility] * Conversion d/o (pseudoseizures): * Minimize attention and benzo use * Support and non-judgmental psychoeducation * She needs moth exterminator outpt * Patient believed to be feigning seizures on previous stay 12/24/16-12/29/16. Patient was started on Lexapro 5mg on d/c, unknown if pt actually took medications. Prolactin: 315.5 1:1 sitter to monitor for seeking behavior Patient will need outpatient 24 hour EEG at capable facility to monitor seizure activity Abdominal pain with vomiting PRIOR STUDY ON 12/27/2016 - CT abdomen/pelvis (no contrast because patient refused ): diffusely thickened bladder wall. recommendations for UA to rule out cystitis. UA performed on 12/24 and 12/31: No signs of obvious infectious etiology WBC count (01/01): 16 (increased from 14.8 yesterday), Procalcitonin 4.7 * F/U ABG, CT chest, Flu, Strep, BC, UA, UC * Zosyn 2.25g IV Q8, Flagyl 500mg IV Q8 Medications: * Reglan 10mg PO Q6H PRN * Zofran 4 mg IV Q6 PRN HTN (hypertension) Hydralazine 10 mg Q6 PRN SBP >160 Nifedipine 30mg PO daily Lisinopril 20mg PO daily Norvasc 10mg PO daily Monitor with vital checks Depressive disorder Lexapro 5 mg PO QD as stated above Prophylactic measure Assessment and Plan: Started Protonix 40mg IVP daily Placed on SCDs Anti-coag contraindicated due to patient vomiting blood Status: Acute <Bhavani Palafox V - Last Filed: 01/09/17 17:09> Objective - Vital Signs/Intake and Output Vital Signs (last 24 hours): Temp Pulse Resp BP Pulse Ox 98.2 F 74 20 98/68 L 98 01/08/17 17:05 01/08/17 17:05 01/08/17 17:05 01/08/17 17:05 01/08/17 17:05 - Labs Labs: 01/07/17 11:31 09/20/17 11:31 Attending/Attestation - Attestation I have personally seen and examined this patient.: Yes I have fully participated in the care of the patient.: Yes I have reviewed all pertinent clinical information, including history, physical exam and plan: Yes Notes (Text): This is late computer entry for 01/01/17. Patient seen, examined, and case discussed with day-time resident. Patient seen at bedside in the morning during the Rapid Response and following during morning rounds. Patient is requesting for Ativan. Patient then proceeded to have full-body shakes with no post-ictal state; eyes do not roll back, nor urinary incontinence. Patient will not allow her hand to fall on her face during the "seizure" episode. Patient seen and evaluated by psych and neurology today. Patient's white count and procalcitonin are elevated. Ordered for CT chest r/o aspiration pneumonia. Started on empiric IV antibiotics. Ordered for blood cultures and urine studies. Assessment/Plan 1) Uncontrolled diabetes type 1 * Blood Glucose 651 on admission. Patient given 20 units of insulin. Blood Glucose improved to 168. * Sugars are inconsistent partly due to patient's behavior to drink excessive sugar juices--suspecting to induce seizure or get Ativan. Discussed with nursing staff, will observe patient. patient is NPO at this time given her vomitting. * Aspiration precautions * Her insulin regimen: Lantus 17 units SC HS; Novolog 7 units TIDAC 2) Seizure History of Pseudoseizures * Neuro Consult: Dr. Cruz on board-->helpa appreciated * Wean off of Keppra 750mg IV Q12 changed to Keppra 250mg PO bid * Psych Consult: Dr. Mckeon help appreciated * Depression and Anxiety: Resume lexapro, not zoloft (had SEs); Gabapentin for anxiety; Inderal or buspar later on if need; Support and psychoed, Refer to indiv. psychotherapy at [facility] * Conversion d/o (pseudoseizures): * Minimize attention and benzo use, Support and non-judgmental psychoeducation , She needs moth exterminator outpt * Patient believed to be feigning seizures on previous stay 12/24/16-12/29/16. Patient was started on Lexapro 5mg on d/c, unknown if pt actually took medications. * Prolactin: 315.5 * Ordered 1:1 sitter to monitor for seeking behavior * Patient will need outpatient 24 hour EEG at capable facility to monitor seizure activity 3) Abdominal pain with vomiting * History of Diabetic Gastoperesis * Self-induced vomitting observed by nursing staff; and sneaking to get extra juices in spite of NPO status * Ordered for CT Chest r/o aspiration pneumonia * Started on empiric IV abx (Zosyn and Flagyl) * PRIOR STUDY ON 12/27/2016 - CT abdomen/pelvis (no contrast because patient refused): diffusely thickened bladder wall. recommendations for UA to rule out cystitis. UA performed on 12/24 and 12/31: No signs of obvious infectious etiology * Ordered for Flu, Strep, Blood cultures, UA and urine culture * Medications: Reglan 10mg PO Q6H PRN and Zofran 4 mg IV Q6 PRN 4) SIRS * Criteria: Positive for elevated WBC,tachycardia, * Elevated procalcitonin * Ordered for CT Chest r/o aspiration pneumonia * Start Zosyn 2.25g IV Q8H, Flagyl 500mg IV Q8H 5) HTN (hypertension) * Hydralazine 10 mg Q6 PRN SBP >160 * Nifedipine 30mg PO daily * Lisinopril 20mg PO daily * Norvasc 10mg PO daily * Monitor with vital checks 6) Depressive disorder * Lexapro 5 mg PO QD as stated above 7) Prophylactic measure * Started Protonix 40mg IVP daily * Placed on SCDs * Patient risk is 0-->SCDS b/l.
--- NOTE | 2017-01-01 16:57 | CT ---
PROCEDURE: CT scan of the chest dated 01/01/2017 HISTORY: Leukocytosis. Concern for pneumonia. COMPARISON: Comparison made with chest radiograph earlier same day. Comparison also made with CT scan of the abdomen and pelvis 12/27/2016 which image both lung bases. TECHNIQUE: Contiguous axial images were obtained through the chest without intravenous contrast enhancement. Sagittal and coronal reconstructions were performed. Radiation dose (DLP): 158.26 mGy-cm. This CT exam was performed using one or more of the following dose reduction techniques: Automated exposure control, adjustment of the mA and/or kV according to patient size, and/or use of iterative reconstruction technique. FINDINGS: LUNGS: Mild passive/dependent type atelectasis seen within the posterior lung armando most pronounced in the lower lung zones. No focal consolidation. . MEDIASTINUM: Heart appears mildly enlarged. No significant pericardial effusion. Cardiac lead obscures of portions of the upper mediastinum including the at ascending thoracic aorta and pulmonary trunk. Evaluation for adenopathy is also limited due to a relative paucity of mediastinal fat. There is soft tissue seen within the anterior mediastinum which could represent volume averaging of the pulmonary trunk, ascending thoracic aorta and traversing brachiocephalic vein and possibly some residual thymic tissue. . However adenopathy or other soft tissue mass not completely excluded. Recommend followup nonemergent CT scan of the chest with contrast material is recommended to confirm and exclude other pathology. PLEURA: No effusion or pneumothorax. BONES: Visualized thoracic spine intact. Remaining osseous structures unremarkable. UPPER ABDOMEN: No upper abdominal abnormalities are identified. OTHER FINDINGS: None. IMPRESSION: No acute infiltrates. Mild atelectasis as above. Evaluation for adenopathy is also limited due to a relative paucity of mediastinal fat. There is soft tissue seen within the anterior mediastinum which could represent volume averaging of the pulmonary trunk, ascending thoracic aorta and traversing brachiocephalic vein and possibly some residual thymic tissue. . However adenopathy or other soft tissue mass not completely excluded. Recommend followup nonemergent CT scan of the chest with contrast material is recommended to confirm and exclude other pathology. . Mild cardiomegaly.
[2017-01-01] MEDS: Sodium Chloride 0.9% 1,000 ML IV SCH (18:01)
[2017-01-02] MEDS: Piperacillin/Tazobact 2.25 GM in Sodium Chloride 100 ML IVPB SCH ×4 (01:10→19:51)
[2017-01-02] MEDS: metroNIDAZOLE IV 500 mg/100 ml 500 MG/100 ML BAG IVPB SCH ×3 (05:31→22:17)
[2017-01-02] MEDS: Sodium Chloride 0.9% 1,000 ML IV SCH ×4 (06:59→22:22)
[2017-01-02 07:38] LABS: BASO % 0.2 % (0.0-2.0); LYMPH # 0.8 K/uL (1.0-4.3); LYMPH % 4.5 % (20.0-40.0); MEAN CELL VOLUME 85.6 fL (81.0-99.0); MEAN CORPUSCULAR HEMOGLOBIN 27.7 pg (27.0-31.0); MEAN CORPUSCULAR HGB CONC 32.3 g/dL (33.0-37.0); MEAN PLATELET VOLUME 10.7 fL (7.2-11.7); MONO # 0.3 K/uL (0.0-0.8); MONO % 1.6 % (0.0-10.0); PLATELET COUNT 313 K/uL (130-400); WHITE BLOOD COUNT 18.4 K/uL (4.8-10.8)
[2017-01-02 07:49] LABS: BILIRUBIN,TOTAL 0.4 mg/dL (0.2-1.3); CALCIUM 8.9 mg/dl (8.6-10.4); MAGNESIUM 1.9 mg/dL (1.6-2.3); PHOSPHOROUS 4.5 mg/dL (2.5-4.5); POTASSIUM 3.8 mmol/L (3.6-5.2); TOTAL PROTEIN 5.9 g/dL (6.3-8.3)
[2017-01-02 08:13] LABS: RBC URINE 4 /hpf (0-3); URINE BACTERIA RARE (<OCC); URINE BILIRUBIN NEGATIVE (NEGATIVE); URINE BLOOD NEGATIVE (NEGATIVE); URINE COLOR Yellow (YELLOW); URINE GLUCOSE (UA) 3+ mg/dL (Normal); URINE HYALINE CAST 0-2 /lpf (0-2); URINE KETONE TRACE mg/dL (NEGATIVE); URINE LEUKOCYTE ESTERASE 2+ Leu/uL (Negative); URINE PROTEIN 3+ mg/dL (NEGATIVE); URINE UROBILINOGEN NORMAL mg/dL (0.2-1.0); WBC CLUMPS FEW /hpf; WBC URINE 265 /hpf (0-5)
[2017-01-02] MEDS: (Novolog) Insulin Aspart, Recombinant 100 u/ml 10 ml vial SC SCH ×8 (09:07→22:18)
[2017-01-02] MEDS: NIFEdipine 30 mg ER Tab PO SCH (10:57)
[2017-01-02 11:21] LABS: NEUTROPHIL 92 % (50-75); TOTAL CELLS COUNTED 100
[2017-01-02] MEDS ORDERED: [UNRECOGNIZED DRUG - OTHER] IV SCH (11:45)
[2017-01-02] MEDS ORDERED: POTASSIUM CH IV SCH (11:45)
[2017-01-02] MEDS ORDERED: D5W IV SCH (11:45)
[2017-01-02] MEDS ORDERED: MULTIVITAMIN IV SCH (11:45)
--- NOTE | 2017-01-02 14:27 | CP.PCM.CON ---
<Merrill Ring - Last Filed: 01/02/17 19:57> History of Present Illness - History of Present Illness History of Present Illness: PGY-[address] Nieves's service: Patient is a 26 year old female, with PMHx of Type 1 diabetes, hypertension, pseudoseizures, anxiety, and depression who was admitted to [facility] on 12/31/16, for hyperglycemia, nausea/vomiting, and continued pseudoseizure episodes. Patient had recent discharge from hospital 12/29/2016, for same constellation. EMR shows she has seen neurology made prior recommendation for pt to go to epilepsy center for evaluation but patient continues to come to the hospital instead. Neurologist, Dr. Cruz, notes she exhibits behavior consistent with psychogenic polydipsia. Patient seen and examined at bedside. She is found lying in bed with emesis basin next to her. Nursing reports she has had multiple pseudoseizure events, followed by vomiting. Pt is NPO but has been caught "sneaking juice." She is difficult to interview, and refuses to answer many questions - simply waving her hand away. She nods her head affirmatively when asked if she is taking her diabetes medications as directed and confirms home dose is Lantus 17 units HS, and Novolog 7 units TIDAC. When asked why her sugars are uncontrolled so often over many admissions, pt states she is unsure. She nods her head when asked if she checks her sugar daily, but does not answer when asked the readings. Endocrinology in past has recommended insulin pump, but pt states she does not want it. She admits abdominal discomfort, nausea and multiple episodes of vomiting this AM. During the interview, pt had multiple full body pseudoseizures, without post -ictal state. Patient repeatedly asked for juice after they ended. She denies fever, chills, headache, polyuria, dysuria, diarrhea. Review of Systems - Constitutional Constitutional: absent: Chills, Fever - EENT Eyes: Blurred Vision (reports in both eyes) - Cardiovascular Cardiovascular: absent: Chest Pain, Dyspnea, Pedal Edema - Respiratory Respiratory: absent: Cough - Gastrointestinal Gastrointestinal: Abdominal Pain, Cramping (hx of gastroparesis), Nausea, Vomiting - Genitourinary Genitourinary: absent: Nocturia - Integumentary Integumentary: absent: Rash - Neurological Neurological: Abnormal Movements, Convulsions - Psychiatric Psychiatric: Anxiety - Endocrine Endocrine: absent: Polyuria Past Patient History - Infectious Disease Hx of Infectious Diseases: None - Past Medical History & Family History Past Medical History?: Yes - Past Social History Smoking Status: Former Smoker Alcohol: None Drugs: Denies - CARDIAC Hx Hypertension: Yes - PULMONARY Hx Respiratory Disorders: No - NEUROLOGICAL Hx Seizures: Yes - HEENT Hx HEENT Problems: Yes Other/Comment: blurred vision both eyes uses eyeglasses - RENAL Hx Chronic Kidney Disease: No - ENDOCRINE/METABOLIC Hx Endocrine Disorders: Yes Hx Diabetes Mellitus Type 1: Yes - HEMATOLOGICAL/ONCOLOGICAL Hx Anemia: Yes - INTEGUMENTARY Hx Dermatological Problems: No - MUSCULOSKELETAL/RHEUMATOLOGICAL Hx Musculoskeletal Disorders: Yes Hx Falls: Yes - GASTROINTESTINAL Hx Gastrointestinal Disorders: Yes (SEE COMMENT) Other/Comment: gastroparesis - GENITOURINARY/GYNECOLOGICAL Hx Genitourinary Disorders: No - PSYCHIATRIC Hx Anxiety: Yes Hx Depression: Yes Hx Substance Use: No - SURGICAL HISTORY Hx Surgeries: Yes - ANESTHESIA Hx Anesthesia: Yes Hx Anesthesia Reactions: No Hx Malignant Hyperthermia: No Meds Allergies/Adverse Reactions: Allergies Allergy/AdvReac Type Severity Reaction Status Date / Time No Known Allergies Allergy Verified 12/23/16 19:17 - Medications Medications: Current Medications Amlodipine Besylate (Norvasc) 10 mg PO DAILY [facility] Last Admin: 01/02/17 10:57 Dose: 10 mg Cyanocobalamin (Vitamin B12 1000 Mcg Tab) 1,000 mcg PO DAILY [facility] Last Admin: 01/02/17 10:58 Dose: 1,000 mcg Escitalopram Oxalate (Lexapro) 5 mg PO DAILY [facility] Last Admin: 01/02/17 10:57 Dose: 5 mg Ferrous Sulfate (Feosol) 325 mg PO BID [facility] Last Admin: 01/02/17 10:58 Dose: 325 mg Hydralazine HCl (Apresoline) 10 mg IVP Q6H PRN PRN Reason: Systolic Blood Pressure Metronidazole (Flagyl) 500 mg in 100 mls @ 100 mls/hr IVPB Q8 [facility] Last Admin: 01/02/17 05:31 Dose: 100 mls/hr Piperacillin Sod/Tazobactam (Sod 2.25 gm/ Sodium Chloride) 100 mls @ 200 mls/ hr IVPB Q6H [facility] Last Admin: 01/02/17 09:08 Dose: 200 mls/hr Folic Acid 1 mg/ Thiamine HCl 100 mg/ Multivitamins/Vitamin C 10 ml/ Dextrose 1 ,011.2 mls @ 75 mls/hr IV DAILY@1430 [facility] Sodium Chloride (Sodium Chloride 0.9%) 1,000 mls @ 100 mls/hr IV .Q10H [facility] Insulin Aspart (Novolog) 12 unit SC AC [facility] Last Admin: 01/02/17 12:06 Dose: 12 unit Insulin Aspart (Novolog) 0 unit SC ACHS [facility] PRN Reason: Protocol Last Admin: 01/02/17 12:07 Dose: 5 unit Insulin Glargine (Lantus) 30 unit SC HS [facility] Levetiracetam (Keppra) 250 mg PO BID [facility] Last Admin: 01/02/17 10:58 Dose: 250 mg Lisinopril (Zestril) 20 mg PO DAILY [facility] Last Admin: 01/02/17 10:58 Dose: Not Given Metoclopramide HCl (Reglan) 10 mg IVP Q6H PRN PRN Reason: Nausea/Vomiting Last Admin: 01/02/17 09:11 Dose: 10 mg Nifedipine (Procardia Xl) 30 mg PO DAILY [facility] Last Admin: 01/02/17 10:57 Dose: 30 mg Ondansetron HCl (Zofran Inj) 4 mg IVP Q6H PRN PRN Reason: Nausea/Vomiting Last Admin: 01/02/17 04:18 Dose: 4 mg Pantoprazole Sodium (Protonix Inj) 40 mg IVP DAILY [facility] Last Admin: 01/02/17 10:58 Dose: 40 mg Physical Exam - Constitutional Appears: No Acute Distress Additional comments: Difficult to interview, dismissive of questioning - Head Exam Head Exam: ATRAUMATIC, NORMOCEPHALIC - Eye Exam Eye Exam: EOMI - ENT Exam ENT Exam: Mucous Membranes Moist - Respiratory Exam Respiratory Exam: Clear to Auscultation Bilateral, NORMAL BREATHING PATTERN. absent: Rales, Rhonchi, Wheezes - Cardiovascular Exam Cardiovascular Exam: REGULAR RHYTHM, +S1, +S2 - GI/Abdominal Exam GI & Abdominal Exam: Normal Bowel Sounds, Soft, Tenderness (diffuse, worst suprapubic) Results - Vital Signs Recent Vital Signs: Last Vital Signs Temp 97.9 F 01/02/17 07:30 Pulse 120 H 01/02/17 10:55 Resp 20 01/02/17 07:30 BP 170/100 H 01/02/17 10:55 Pulse Ox 96 01/02/17 07:30 - Labs Result Diagrams: 01/02/17 07:23 01/02/17 07:23 Labs: Laboratory Results - last 24 hr 01/01/17 01/01/17 01/01/17 08:54 16:37 21:12 WBC RBC Hgb Hct MCV MCH MCHC RDW Plt Count MPV Neut % (Auto) Lymph % (Auto) [place] % (Auto) Eos % (Auto) Baso % (Auto) Neut # Lymph # [place] # Eos # Baso # Neutrophils % (Manual) Lymphocytes % (Manual) Monocytes % (Manual) Platelet Estimate Hypochromasia (manual) Poikilocytosis (manual Anisocytosis (manual) Sodium Potassium Chloride Carbon Dioxide Anion Gap BUN Creatinine Est GFR ( Amer) Est GFR (Non-Af Amer) POC Glucose (mg/dL) 434 H* 175 H Random Glucose Hemoglobin A1c Calcium Phosphorus Magnesium Total Bilirubin AST ALT Alkaline Phosphatase Total Protein Albumin Globulin Albumin/Globulin Ratio Triglycerides Cholesterol LDL Cholesterol Direct HDL Cholesterol Procalcitonin 4.70 H Prolactin Urine Color Urine Clarity Urine pH Ur Specific [place] Urine Protein Urine Glucose (UA) Urine Ketones Urine Blood Urine Nitrate Urine Bilirubin Urine Urobilinogen Ur Leukocyte Esterase Urine WBC (Auto) Urine RBC (Auto) Urine WBC Clumps (Auto) Ur Squamous Epith Cells Urine Bacteria Hyaline Casts 01/02/17 01/02/17 01/02/17 06:26 07:23 07:23 WBC 18.4 H RBC 3.86 Hgb 10.7 L Hct 33.0 L MCV 85.6 MCH 27.7 MCHC 32.3 L RDW 15.0 H Plt Count 313 MPV 10.7 Neut % (Auto) 93.7 H Lymph % (Auto) 4.5 L [place] % (Auto) 1.6 Eos % (Auto) 0.0 Baso % (Auto) 0.2 Neut # 17.2 H Lymph # 0.8 L [place] # 0.3 Eos # 0.0 Baso # 0.0 Neutrophils % (Manual) 92 H Lymphocytes % (Manual) 6 L Monocytes % (Manual) 2 Platelet Estimate Normal Hypochromasia (manual) Slight Poikilocytosis (manual Slight Anisocytosis (manual) Slight Sodium 141 Potassium 3.8 Chloride 105 Carbon Dioxide 20 L Anion Gap 20 BUN 23 H Creatinine 2.2 H Est GFR ( Amer) 32 Est GFR (Non-Af Amer) 27 POC Glucose (mg/dL) 460 H* Random Glucose 473 H* D Hemoglobin A1c Calcium 8.9 Phosphorus 4.5 Magnesium 1.9 Total Bilirubin 0.4 AST 19 ALT 24 Alkaline Phosphatase 89 Total Protein 5.9 L Albumin 3.0 L Globulin 2.9 Albumin/Globulin Ratio 1.0 Triglycerides 91 Cholesterol 247 H LDL Cholesterol Direct 132 H HDL Cholesterol 93 H Procalcitonin Prolactin 229.4 H Urine Color Urine Clarity Urine pH Ur Specific [place] Urine Protein Urine Glucose (UA) Urine Ketones Urine Blood Urine Nitrate Urine Bilirubin Urine Urobilinogen Ur Leukocyte Esterase Urine WBC (Auto) Urine RBC (Auto) Urine WBC Clumps (Auto) Ur Squamous Epith Cells Urine Bacteria Hyaline Casts 01/02/17 01/02/17 01/02/17 07:23 10:05 11:32 WBC RBC Hgb Hct MCV MCH MCHC RDW Plt Count MPV Neut % (Auto) Lymph % (Auto) [place] % (Auto) Eos % (Auto) Baso % (Auto) Neut # Lymph # [place] # Eos # Baso # Neutrophils % (Manual) Lymphocytes % (Manual) Monocytes % (Manual) Platelet Estimate Hypochromasia (manual) Poikilocytosis (manual Anisocytosis (manual) Sodium Potassium Chloride Carbon Dioxide Anion Gap BUN Creatinine Est GFR ( Amer) Est GFR (Non-Af Amer) POC Glucose (mg/dL) 353 H Random Glucose Hemoglobin A1c 7.3 H D Calcium Phosphorus Magnesium Total Bilirubin AST ALT Alkaline Phosphatase Total Protein Albumin Globulin Albumin/Globulin Ratio Triglycerides Cholesterol LDL Cholesterol Direct HDL Cholesterol Procalcitonin Prolactin Urine Color Yellow Urine Clarity Hazy Urine pH 7.0 Ur Specific [place] 1.022 Urine Protein 3+ H Urine Glucose (UA) 3+ H Urine Ketones Trace Urine Blood Negative Urine Nitrate Negative Urine Bilirubin Negative Urine Urobilinogen Normal Ur Leukocyte Esterase 2+ H Urine WBC (Auto) 265 H Urine RBC (Auto) 4 H Urine WBC Clumps (Auto) Few H Ur Squamous Epith Cells 16 H Urine Bacteria Rare Hyaline Casts 0-2 Assessment & Plan - Assessment and Plan (Free Text) Plan: Chronic Kidney Disease GABRIELA vs Progression of diabetic nephropathy - Cr 2.4 this admission, baseline ~1.5; GFR 32 Pt meterman uncontrolled type one diabetic - prior A1c of 9.2, 7.3 most recent - blood glucose > 500 on many presentations - f/u Renal US Proteinuria UA: 3+ protein since first admission at [facility] on 10/16/16 -f/u complement C3/C4 -f/u random protein, creatinine, microalbumin -f/u hepatitis B/C Hypertension Remains elevated - possible volume depletion etiology Hydralazine 10 mg Q6 PRN SBP >160 Nifedipine 30mg PO daily Norvasc 10mg PO daily HOLD Lisinopril 20mg PO daily SIRS criteria Positive for elevated WBC,tachycardia Possible source: UTI -UA (01/02/17): 2+ LE, WBC 265, 3+ glucose, 3+ protein, - not clean catch (Sq Epith 16) - CXR and CT Chest (01/01/17): No acute infiltrates - Zosyn 2.25g IV Q8H (First dose 01/01/17) - Flagyl 500mg IV Q8H (First dose 01/01/17) Pseudoseizure disorder Neuro recommends weaning off keppra Psych treating depression/anxiety; pseudoseizures may be of conversion disorder Prolactin: 315.5 Type 1 Diabetes Mellitus Poorly controlled as evidenced from prior A1C Management per primary team Discussed with Dr. Ezequiel Ring PGY-1 <Migue Nieves - Last Filed: 01/03/17 09:09> Meds - Medications Medications: Current Medications Amlodipine Besylate (Norvasc) 10 mg PO DAILY [facility] Last Admin: 01/02/17 10:57 Dose: 10 mg Cyanocobalamin (Vitamin B12 1000 Mcg Tab) 1,000 mcg PO DAILY [facility] Last Admin: 01/02/17 10:58 Dose: 1,000 mcg Escitalopram Oxalate (Lexapro) 10 mg PO DAILY [facility] Ferrous Sulfate (Feosol) 325 mg PO BID [facility] Last Admin: 01/02/17 19:05 Dose: 325 mg Gabapentin (Neurontin) 300 mg PO BID [facility] Last Admin: 01/02/17 19:05 Dose: 300 mg Hydralazine HCl (Apresoline) 10 mg IVP Q6H PRN PRN Reason: Systolic Blood Pressure Last Admin: 01/02/17 16:59 Dose: 10 mg Hydroxyzine HCl (Atarax) 25 mg PO QID [facility] Last Admin: 01/02/17 22:17 Dose: 25 mg Metronidazole (Flagyl) 500 mg in 100 mls @ 100 mls/hr IVPB Q8 [facility] Last Admin: 01/03/17 05:16 Dose: 100 mls/hr Piperacillin Sod/Tazobactam (Sod 2.25 gm/ Sodium Chloride) 100 mls @ 200 mls/ hr IVPB Q6H [facility] Last Admin: 01/03/17 08:14 Dose: 200 mls/hr Folic Acid 1 mg/ Thiamine HCl 100 mg/ Multivitamins/Vitamin C 10 ml/ Dextrose 1 ,011.2 mls @ 75 mls/hr IV DAILY@1430 [facility] Last Admin: 01/02/17 14:47 Dose: 75 mls/hr Sodium Chloride (Sodium Chloride 0.9%) 1,000 mls @ 100 mls/hr IV .Q10H [facility] Last Admin: 01/03/17 08:20 Dose: Not Given Insulin Aspart (Novolog) 12 unit SC AC [facility] Last Admin: 01/03/17 08:47 Dose: 12 unit Insulin Aspart (Novolog) 0 unit SC ACHS [facility] PRN Reason: Protocol Last Admin: 01/03/17 08:48 Dose: Not Given Insulin Glargine (Lantus) 30 unit SC HS [facility] Last Admin: 01/02/17 22:17 Dose: 30 unit Levetiracetam (Keppra) 250 mg PO BID [facility] Last Admin: 01/02/17 19:05 Dose: 250 mg Lisinopril (Zestril) 20 mg PO DAILY [facility] Last Admin: 01/02/17 10:58 Dose: Not Given Metoclopramide HCl (Reglan) 10 mg IVP Q6H PRN PRN Reason: Nausea/Vomiting Last Admin: 01/02/17 18:12 Dose: 10 mg Nifedipine (Procardia Xl) 30 mg PO DAILY [facility] Last Admin: 01/02/17 10:57 Dose: 30 mg Ondansetron HCl (Zofran Inj) 4 mg IVP Q6H PRN PRN Reason: Nausea/Vomiting Last Admin: 01/02/17 22:24 Dose: 4 mg Pantoprazole Sodium (Protonix Inj) 40 mg IVP DAILY [facility] Last Admin: 01/02/17 10:58 Dose: 40 mg Results - Vital Signs Recent Vital Signs: Last Vital Signs Temp 98.9 F 01/02/17 23:36 Pulse 106 H 01/03/17 03:53 Resp 20 01/02/17 23:36 BP 121/72 01/02/17 23:36 Pulse Ox 96 01/02/17 23:36 - Labs Result Diagrams: 01/02/17 07:23 01/02/17 07:23 Labs: Laboratory Results - last 24 hr 01/01/17 01/01/17 01/02/17 20:44 20:44 07:23 Neutrophils % (Manual) 92 H Lymphocytes % (Manual) 6 L Monocytes % (Manual) 2 Platelet Estimate Normal Hypochromasia (manual) Slight Poikilocytosis (manual Slight Anisocytosis (manual) Slight Sodium Potassium Chloride Carbon Dioxide Anion Gap BUN Creatinine Est GFR ( Amer) Est GFR (Non-Af Amer) POC Glucose (mg/dL) Random Glucose Hemoglobin A1c Calcium Phosphorus Magnesium Total Bilirubin AST ALT Alkaline Phosphatase Total Protein Albumin Globulin Albumin/Globulin Ratio Triglycerides Cholesterol LDL Cholesterol Direct HDL Cholesterol Prolactin Influenza Typ A,B (EIA) Negative for flu a/b Grp A Beta Strep Ag Negative 01/02/17 01/02/17 01/02/17 07:23 10:05 11:32 Neutrophils % (Manual) Lymphocytes % (Manual) Monocytes % (Manual) Platelet Estimate Hypochromasia (manual) Poikilocytosis (manual Anisocytosis (manual) Sodium 141 Potassium 3.8 Chloride 105 Carbon Dioxide 20 L Anion Gap 20 BUN 23 H Creatinine 2.2 H Est GFR ( Amer) 32 Est GFR (Non-Af Amer) 27 POC Glucose (mg/dL) 353 H Random Glucose 473 H* D Hemoglobin A1c 7.3 H D Calcium 8.9 Phosphorus 4.5 Magnesium 1.9 Total Bilirubin 0.4 AST 19 ALT 24 Alkaline Phosphatase 89 Total Protein 5.9 L Albumin 3.0 L Globulin 2.9 Albumin/Globulin Ratio 1.0 Triglycerides 91 Cholesterol 247 H LDL Cholesterol Direct 132 H HDL Cholesterol 93 H Prolactin 229.4 H Influenza Typ A,B (EIA) Grp A Beta Strep Ag 01/02/17 01/02/17 01/02/17 16:09 16:49 19:58 Neutrophils % (Manual) Lymphocytes % (Manual) Monocytes % (Manual) Platelet Estimate Hypochromasia (manual) Poikilocytosis (manual Anisocytosis (manual) Sodium Potassium Chloride Carbon Dioxide Anion Gap BUN Creatinine Est GFR ( Amer) Est GFR (Non-Af Amer) POC Glucose (mg/dL) 123 H 144 H 384 H Random Glucose Hemoglobin A1c Calcium Phosphorus Magnesium Total Bilirubin AST ALT Alkaline Phosphatase Total Protein Albumin Globulin Albumin/Globulin Ratio Triglycerides Cholesterol LDL Cholesterol Direct HDL Cholesterol Prolactin Influenza Typ A,B (EIA) Grp A Beta Strep Ag 01/02/17 01/03/17 01/03/17 21:47 02:00 06:29 Neutrophils % (Manual) Lymphocytes % (Manual) Monocytes % (Manual) Platelet Estimate Hypochromasia (manual) Poikilocytosis (manual Anisocytosis (manual) Sodium Potassium Chloride Carbon Dioxide Anion Gap BUN Creatinine Est GFR ( Amer) Est GFR (Non-Af Amer) POC Glucose (mg/dL) 322 H 215 H 251 H Random Glucose Hemoglobin A1c Calcium Phosphorus Magnesium Total Bilirubin AST ALT Alkaline Phosphatase Total Protein Albumin Globulin Albumin/Globulin Ratio Triglycerides Cholesterol LDL Cholesterol Direct HDL Cholesterol Prolactin Influenza Typ A,B (EIA) Grp A Beta Strep Ag Attending/Attestation - Attestation I have personally seen and examined this patient.: Yes I have fully participated in the care of the patient.: Yes I have reviewed all pertinent clinical information: Yes Notes (Text): Patient seen and examined with resident, agree with note as above with the following additions/edits: 26 yo F w/ pmh of htn, dm, admitted with recurrent seizures (questionable for pseudo-seizures), persistent vomiting, found to have worsening renal function, metabolic acidosis, nephrology consulted for this reason; Patient appears very lethargic on exam but able to respond to yes/no questions; had body convulsions in front of us that appeared to involve lower body only ( patient was able to converse immediately after the activity); Sugars have been very high although patient reports sugars were controlled as recently as last week on her same insulin regimen (lantus 14 u qhs and humalog 7 u w/ meals); Current labs showing mild high anion metabolic acidosis with UA yesterday showing positive ketones; mildly elevated lactate on presentation; GABRIELA v progression of CKD - The former due to volume depletion in setting of hyperglycemia and vomiting; however patient consistently with 3+ protein on UA which is likely consistent with diabetic nephropathy and in which case chronic renal insufficiency can progress rather quickly (especially if BP uncontrolled) ; patient is rather young but may have overall poor renal prognosis; -checking quantified proteinuria level with random urine for protein, microalbumin and creatinine -renal US Metabolic Acidosis - Relatively mild; ketosis v lactic acidosis; -checking B-hydroxybutyrate and lactate levels -continue IVF w/ NS at 100 cc/hr Proteinuria - Needs further workup as mentioned above; massive amount of proteinuria may indicate need for biopsy to look for another treatable cause of CKD in order to try to preserve renal function; -checking C3 and C4 for other possible causes of GN -check hep B and C serologies, HIV HTN - Uncontrolled but BP may be higher currently due to acute distress; -continue to hold HERLINDA inhibitor/ARB in setting of possible volume depletion;
[2017-01-02] MEDS: Folic Acid 1 MG, Thiamine 100 MG, Multivitamin (MVI) 10 ML in Dextrose 5% In Water 1,00... IV SCH (14:47)
[2017-01-02] MEDS ORDERED: (Novolog) Insulin Aspart, Recombinant 100 u/ml 10 ml vial SC ONE (18:00)
[2017-01-02] MEDS ORDERED: (Lantus) Insulin Glargine, Recombinant SC SCH (22:00)
--- NOTE | 2017-01-02 22:54 | CP.PCM.PN ---
Addendum entered and electronically signed by Addie Kerns DO 01/02/17 23: 00: Added vitamins and potassium to IVF. F/U BMP. Original Note: <Addie Kerns - Last Filed: 01/02/17 22:35> Subjective - Date & Time of Evaluation Date of Evaluation: 01/02/17 Time of Evaluation: 22:35 - Subjective Subjective: Patient seen and examined at bedside. Patient woke up from sleep and upon realizing I was there in the room started having an episode/pseudoseizure. this lasted about 30 seconds before patient opened her eyes and begged for ativan. When told she could haven ativan she asked for apple juice. Patient was told her sugars were very high and still wanted juices despite knowing consequences. Patient was caught taking susannah mana this morning and drank 3 of them before self inducing vomiting. Objective - Vital Signs/Intake and Output Vital Signs (last 24 hours): Temp Pulse Resp BP Pulse Ox 99 F 110 H 18 177/105 H 95 01/02/17 16:19 01/02/17 18:00 01/02/17 16:19 01/02/17 16:19 01/02/17 16:19 Intake and Output: 01/02/17 01/03/17 18:59 06:59 Intake Total 2049 Balance 2049 - Medications Medications: Current Medications Amlodipine Besylate (Norvasc) 10 mg PO DAILY [facility] Last Admin: 01/02/17 10:57 Dose: 10 mg Cyanocobalamin (Vitamin B12 1000 Mcg Tab) 1,000 mcg PO DAILY [facility] Last Admin: 01/02/17 10:58 Dose: 1,000 mcg Escitalopram Oxalate (Lexapro) 10 mg PO DAILY [facility] Ferrous Sulfate (Feosol) 325 mg PO BID [facility] Last Admin: 01/02/17 19:05 Dose: 325 mg Gabapentin (Neurontin) 300 mg PO BID [facility] Last Admin: 01/02/17 19:05 Dose: 300 mg Hydralazine HCl (Apresoline) 10 mg IVP Q6H PRN PRN Reason: Systolic Blood Pressure Last Admin: 01/02/17 16:59 Dose: 10 mg Hydroxyzine HCl (Atarax) 25 mg PO QID [facility] Last Admin: 01/02/17 22:17 Dose: 25 mg Metronidazole (Flagyl) 500 mg in 100 mls @ 100 mls/hr IVPB Q8 [facility] Last Admin: 01/02/17 22:17 Dose: 100 mls/hr Piperacillin Sod/Tazobactam (Sod 2.25 gm/ Sodium Chloride) 100 mls @ 200 mls/ hr IVPB Q6H [facility] Last Admin: 01/02/17 19:51 Dose: 200 mls/hr Folic Acid 1 mg/ Thiamine HCl 100 mg/ Multivitamins/Vitamin C 10 ml/ Dextrose 1 ,011.2 mls @ 75 mls/hr IV DAILY@1430 [facility] Last Admin: 01/02/17 14:47 Dose: 75 mls/hr Sodium Chloride (Sodium Chloride 0.9%) 1,000 mls @ 100 mls/hr IV .Q10H [facility] Last Admin: 01/02/17 22:22 Dose: Not Given Insulin Aspart (Novolog) 12 unit SC AC [facility] Last Admin: 01/02/17 16:41 Dose: Not Given Insulin Aspart (Novolog) 0 unit SC ACHS [facility] PRN Reason: Protocol Last Admin: 01/02/17 22:18 Dose: Not Given Insulin Glargine (Lantus) 30 unit SC HS [facility] Last Admin: 01/02/17 22:17 Dose: 30 unit Levetiracetam (Keppra) 250 mg PO BID [facility] Last Admin: 01/02/17 19:05 Dose: 250 mg Lisinopril (Zestril) 20 mg PO DAILY [facility] Last Admin: 01/02/17 10:58 Dose: Not Given Metoclopramide HCl (Reglan) 10 mg IVP Q6H PRN PRN Reason: Nausea/Vomiting Last Admin: 01/02/17 18:12 Dose: 10 mg Nifedipine (Procardia Xl) 30 mg PO DAILY [facility] Last Admin: 01/02/17 10:57 Dose: 30 mg Ondansetron HCl (Zofran Inj) 4 mg IVP Q6H PRN PRN Reason: Nausea/Vomiting Last Admin: 01/02/17 22:24 Dose: 4 mg Pantoprazole Sodium (Protonix Inj) 40 mg IVP DAILY [facility] Last Admin: 01/02/17 10:58 Dose: 40 mg - Labs Labs: 01/02/17 07:23 01/02/17 07:23 - Constitutional Appears: Agitated - Head Exam Head Exam: NORMAL INSPECTION - Eye Exam Eye Exam: EOMI, PERRL - ENT Exam ENT Exam: Mucous Membranes Moist - Respiratory Exam Respiratory Exam: Clear to Ausculation Bilateral - Cardiovascular Exam Cardiovascular Exam: REGULAR RHYTHM, +S1, +S2 - GI/Abdominal Exam GI & Abdominal Exam: Soft - Extremities Exam Extremities Exam: Normal Inspection - Neurological Exam Additional comments: convulsions - Psychiatric Exam Psychiatric exam: Anxious - Skin Skin Exam: Dry, Intact, Warm Assessment and Plan - Assessment and Plan (Free Text) Assessment: Hyperglycemia with Hx DM Blood Glucose 651 on admission. Patient given 20 units of insulin. Blood Glucose improved to 168. Started on NS @100mL/hr Placed on ISS - med Held Home Insulin Regiment due to patient actively vomiting, placed on NPO diet - Once pt is no longer vomiting, tolerating a regular diet, restart home insulin regiment - Lantus 17 units SC HS; Novolog 7 units TIDAC F/U - Glucagon Levels Seizure Neuro Consult: Dr. Cruz * Wean off of Keppra 750mg IV Q12 because seizures seem to be 2/2 hyper/ hypoglycemia Psych Consult: Dr. Mckeon * Depression and Anxiety: * Resume lexapro, not zoloft (had SEs) * Gabapentin for anxiety * Inderal or buspar later on if needed * Support and psychoed * Refer to indiv. psychotherapy at [facility] * Conversion d/o (pseudoseizures): * Minimize attention and benzo use * Support and non-judgmental psychoeducation * She needs correction outpt * Patient believed to be feigning seizures on previous stay 12/24/16-12/29/16. Patient was started on Lexapro 5mg on d/c, unknown if pt actually took medications. Prolactin: 315.5 1:1 sitter to monitor for seeking behavior Patient will need outpatient 24 hour EEG at capable facility to monitor seizure activity Abdominal pain with vomiting PRIOR STUDY ON 12/27/2016 - CT abdomen/pelvis (no contrast because patient refused ): diffusely thickened bladder wall. recommendations for UA to rule out cystitis. UA performed on 12/24 and 12/31: No signs of obvious infectious etiology WBC count (12/31): 14.8 (01/01): 16 (01/02): 18.4 Procalcitonin 4.7 * ABG - metabolic acidosis with resp compensation * Flu, Strep Negative * F/U BC * UA +Leukocyte esterase - Probable UTI * F/U UC * CT Chest: No acute infiltrates. Mild atelectasis as above.Evaluation for adenopathy is also limited due to a relative paucity of mediastinal fat. There is soft tissue seen within the anterior mediastinum which could represent volume averaging of the pulmonary trunk, ascending thoracic aorta and traversing brachiocephalic vein and possibly some residual thymic tissue. . However adenopathy or other soft tissue mass not completely excluded. Mild cardiomegaly. * Zosyn 2.25g IV Q8, Flagyl 500mg IV Q8 * Nephro Consult ([facility]) - ordered renal US but patient refused Medications: * Reglan 10mg PO Q6H PRN * Zofran 4 mg IV Q6 PRN SIRS criteria Positive for elevated WBC,tachycardia Possible source: UTI -UA (01/02/17): 2+ LE, WBC 265, 3+ glucose, 3+ protein, - not clean catch (Sq Epith 16) - CXR and CT Chest (01/01/17): No acute infiltrates - Zosyn 2.25g IV Q8H (First dose 01/01/17) - Flagyl 500mg IV Q8H (First dose 01/01/17) HTN (hypertension) Hydralazine 10 mg Q6 PRN SBP >160 Nifedipine 30mg PO daily Lisinopril 20mg PO daily Norvasc 10mg PO daily Monitor with vital checks Depressive disorder Lexapro 5 mg PO QD as stated above Prophylactic measure Started Protonix 40mg IVP daily Placed on SCDs Anti-coag contraindicated due to patient vomiting blood Disposition: Patient currently refusing imaging. Patient has been caught multiple times drinking excessive juices and gingerale then self inducing vomiting. Patient is having shaking episodes then asks for ativan. On every physician-patient contact, patient will have this episodes then ask for ativan. We are trying to minimize benzo use and attention per Dr. Mckeon. <Bhavani Palafox V - Last Filed: 01/03/17 18:03> Objective - Vital Signs/Intake and Output Vital Signs (last 24 hours): Temp Pulse Resp BP Pulse Ox 99.1 F 94 H 20 144/88 97 01/03/17 15:46 01/03/17 15:46 01/03/17 15:46 01/03/17 15:46 01/03/17 15:46 Intake and Output: 01/03/17 01/03/17 06:59 18:59 Intake Total 900 1595 Balance 900 1595 - Medications Medications: Current Medications Amlodipine Besylate (Norvasc) 10 mg PO DAILY [facility] Last Admin: 01/03/17 12:03 Dose: 10 mg Cyanocobalamin (Vitamin B12 1000 Mcg Tab) 1,000 mcg PO DAILY [facility] Last Admin: 01/03/17 12:03 Dose: 1,000 mcg Escitalopram Oxalate (Lexapro) 10 mg PO DAILY [facility] Last Admin: 01/03/17 12:03 Dose: 10 mg Ferrous Sulfate (Feosol) 325 mg PO BID [facility] Last Admin: 01/03/17 17:14 Dose: Not Given Gabapentin (Neurontin) 300 mg PO BID [facility] Last Admin: 01/03/17 17:14 Dose: Not Given Hydralazine HCl (Apresoline) 10 mg IVP Q6H PRN PRN Reason: Systolic Blood Pressure Last Admin: 01/02/17 16:59 Dose: 10 mg Hydroxyzine HCl (Atarax) 25 mg PO QID [facility] Last Admin: 01/03/17 17:14 Dose: Not Given Metronidazole (Flagyl) 500 mg in 100 mls @ 100 mls/hr IVPB Q8 [facility] Last Admin: 01/03/17 14:25 Dose: 100 mls/hr Folic Acid 1 mg/ Thiamine HCl 100 mg/ Multivitamins/Vitamin C 10 ml/ Dextrose 1 ,011.2 mls @ 75 mls/hr IV DAILY@1430 [facility] Last Admin: 01/03/17 14:25 Dose: 75 mls/hr Potassium Chloride 20 meq/ (Sodium Chloride) 1,010 mls @ 100 mls/hr IV .Q10H6M [facility] Piperacillin Sod/Tazobactam (Sod 2.25 gm/ Sodium Chloride) 100 mls @ 200 mls/ hr IVPB Q8H [facility] Insulin Aspart (Novolog) 0 unit SC ACHS [facility] PRN Reason: Protocol Last Admin: 01/03/17 16:32 Dose: Not Given Insulin Aspart (Novolog) 6 unit SC AC [facility] Last Admin: 01/03/17 16:32 Dose: Not Given Insulin Glargine (Lantus) 30 unit SC HS [facility] Last Admin: 01/02/17 22:17 Dose: 30 unit Levetiracetam (Keppra) 250 mg PO BID [facility] Last Admin: 01/03/17 17:14 Dose: Not Given Lisinopril (Zestril) 20 mg PO DAILY [facility] Last Admin: 01/02/17 10:58 Dose: Not Given Metoclopramide HCl (Reglan) 10 mg IVP Q6H PRN PRN Reason: Nausea/Vomiting Last Admin: 01/03/17 12:01 Dose: 10 mg Nifedipine (Procardia Xl) 30 mg PO DAILY [facility] Last Admin: 01/03/17 12:04 Dose: 30 mg Ondansetron HCl (Zofran Inj) 4 mg IVP Q6H PRN PRN Reason: Nausea/Vomiting Last Admin: 01/03/17 08:52 Dose: 4 mg Pantoprazole Sodium (Protonix Inj) 40 mg IVP DAILY [facility] Last Admin: 01/03/17 12:03 Dose: 40 mg - Labs Labs: 01/03/17 13:05 01/03/17 13:05 Attending/Attestation - Attestation I have personally seen and examined this patient.: Yes I have fully participated in the care of the patient.: Yes I have reviewed all pertinent clinical information, including history, physical exam and plan: Yes Notes (Text): This is late computer entry for 01/02/17. Patient seen, examined, and case discussed with day-time resident. Patient seen at bedside in the morning. Patient is requesting for Ativan. Patient then proceeded to have full-body shakes with no post-ictal state; eyes do not roll back, nor urinary incontinence. Discussed with nursing staff, patient has been seen self-induced vomitting about 3x and then trying to sneak extra susannah ales. Patient is placed in the 1: 1 room given her behavior to take excessive juices during her NPO status. Patient has been instructed by myself that she cannot and should induce vomitting because that will cause changes in her potassium and cause arrhythmia and heart attack. In light of patient trying to self-induce vomitting, patient started on IV fluids supplemented with potassium and banana bag.= Endocrinology consult-->appreciate input. Patient is placed on moderate carb consistent diet. UA is positive for urinary tract infection and may account for procalcitonin. Nephrology consult given acute renal failure and possible psychogenic polydipsia. Assessment/Plan 1) Uncontrolled diabetes type 1 * Blood Glucose 651 on admission. Patient given 20 units of insulin. Blood Glucose improved to 168. * Sugars are inconsistent partly due to patient's behavior to drink excessive sugar juices--suspecting to induce seizure or get Ativan * Endocrinology (Dr. Mcgill) consulted help appreciated * Per endo, patient start on moderate carb consistent diet * Lantus 17 units SC HS; Novolog 7 units TIDAC 2) Seizure History of Pseudoseizures * Neuro Consult: Dr. Cruz on board-->helpa appreciated * Wean off of Keppra 750mg IV Q12 changed to Keppra 250mg PO bid * Keppra will not help and may make her worse; uncommon side effect: Keprrea is personality changes and psychosis with irritability-->taper over the next week * Psych Consult: Dr. Mckeon help appreciated * Depression and Anxiety: Resume lexapro, not zoloft (had SEs); Gabapentin for anxiety; Inderal or buspar later on if need; Support and psychoed, Refer to indiv. 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 Patient was started on Lexapro 5mg on d/c, unknown if pt actually took medications. * Prolactin: 315.5 * 1:1 sitter to monitor for seeking behavior * Patient will need outpatient 24 hour EEG at [facility] facility to monitor seizure activity 3) Abdominal pain with vomiting * History of Diabetic Gastoperesis * Self-induced vomitting observed by nursing staff on various shifts * PRIOR STUDY ON 12/27/2016 - CT abdomen/pelvis (no contrast because patient refused): diffusely thickened bladder wall. recommendations for UA to rule out cystitis. UA performed on 12/24 and 12/31: No signs of obvious infectious etiology * CT Chest: No acute infiltrates. Mild atelectasis as above. Evaluation for adenopathy is also limited due to a relative paucity of mediastinal fat. There is soft tissue seen within the anterior mediastinum which could represent volume averaging of the pulmonary trunk, ascending thoracic aorta and traversing brachiocephalic vein and possibly some residual thymic tissue. . However adenopathy or other soft tissue mass not completely excluded. Mild cardiomegaly. * Medications: Reglan 10mg PO Q6H PRN and Zofran 4 mg IV Q6 PRN 4) SIRS * Criteria: Positive for elevated WBC,tachycardia,Possible source: UTI * CT Chest: No acute infiltrates. Mild atelectasis as above. Evaluation for adenopathy is also limited due to a relative paucity of mediastinal fat. There is soft tissue seen within the anterior mediastinum which could represent volume averaging of the pulmonary trunk, ascending thoracic aorta and traversing brachiocephalic vein and possibly some residual thymic tissue. . However adenopathy or other soft tissue mass not completely excluded. Mild cardiomegaly. * Zosyn 2.25g IV Q8H, Flagyl 500mg IV Q8 * UA (01/02/17): 2+ LE, WBC 265, 3+ glucose, 3+ protein, not clean catch (Sq Epith 16) 5) HTN (hypertension) * Hydralazine 10 mg Q6 PRN SBP >160 * Nifedipine 30mg PO daily * Lisinopril 20mg PO daily * Norvasc 10mg PO daily * Monitor with vital checks 6) Depressive disorder * Lexapro 5 mg PO QD as stated above 7) Prophylactic measure * Started Protonix 40mg IVP daily * Placed on SCDs * Patient risk is 0-->SCDS b/l Disposition: Patient currently refusing imaging. Patient has been caught multiple times drinking excessive juices and gingerale then self inducing vomiting. Patient is having shaking episodes then asks for ativan. On every physician-patient contact, patient will have this episodes then ask for ativan. We are trying to minimize benzo use and attention per Dr. Mckeon.
[2017-01-03] MEDS: Piperacillin/Tazobact 2.25 GM in Sodium Chloride 100 ML IVPB SCH ×4 (01:32→19:15)
--- NOTE | 2017-01-03 03:55 | CON ---
LOCATION: Room 559. HISTORY OF PRESENT ILLNESS: This is a 26-year-old female with known history of type 1 insulin-dependent diabetes, presenting here with an apparent seizure event of recurrent nature with associated vomiting, abdominal pain, and generalized body weakness and is being referred now for diabetic evaluation and management. PAST MEDICAL HISTORY: As mentioned above, history of type 1 insulin-dependent diabetes, on a combination of Lantus given as 17 units at bedtime and Humalog given as 7 units t.i.d. before meals at home as noted. No recent home glucose monitoring levels are available at this time. History of hypertension, cardiovascular disease and dyslipidemia. History of generalized anxiety and depression, currently on Zoloft given as 25 mg daily and Xanax as 0.5 mg also once daily as ordered. History of apparent seizure disorder witnessed by her own mother at home and also witnessed by the nursing staff here as having focal pseudoseizures with secondary pain as noted. FAMILY HISTORY: Positive for hypertension and heart disease. SOCIAL HISTORY: The patient has a supportive family and the mother is very attentive to her needs at this time. No known substance use. REVIEW OF SYSTEMS: As mentioned above, admits to generalized body weakness with easy fatigability and tiredness and suboptimal energy level. Also admits to bifrontal headaches and visual blurring, especially around the time of her seizure events. Also admits to episodic bouts of dizziness and lightheadedness, worse on the day of admission. No chest pains or palpitations or PNDs. Her oral intake is variable with nausea, dyspepsia and episodic vomiting episodes with nocturia and polyuria as noted thereof. PHYSICAL EXAMINATION: GENERAL: This is an average built female, in no apparent distress. VITAL SIGNS: Blood pressure of 140/80, pulse of 70 beats per minute and regular, temperature 98 and respirations 20. Height is 5 feet 1 inch, weight is 140 pounds. HEENT: Head normocephalic. Eyes are anicteric with pink conjunctivae. Funduscopy not possible at this time. Ears, nose and throat otherwise normal. NECK: Supple. Thyroid gland is normal size. No carotid bruits or any cervical adenopathy. CARDIOPULMONARY: Adynamic precordium. S1 and S2 is rapid and regular. LUNGS: Shows scattered rhonchi. ABDOMEN: Flat and soft with positive bowel sounds. EXTREMITIES: No peripheral edema. Pulses are +2 bilaterally. LABORATORY DATA: CBC: WBC is 18.4, hemoglobin of 10.7, hematocrit of 33, MCV is 85.6, and platelets 313. The chemistry showed a BUN of 23, sodium 141, potassium 3.8, chloride 105, CO2 of 20, glucose 473, and creatinine 2.2. Hemoglobin A1c is 7.3%. The glucose levels have ranged from 144 mg/dL to 384 mg/dL. ASSESSMENT: This is a 26-year-old female with uncontrolled and decompensated type 1 insulin-dependent diabetes, presenting here with an apparent seizure event and also a strong possibility of pseudoseizures as noted. Moreover, she also has associated hyperprolactinemia with prolactin levels ranging from 229.4 to 315.5. There is no recent MRI report at this time in the chart as noted and although the patient admits to having a previous MRI of the brain undertaken with a prior admission thereof. Although, we have to exclude an underlying macroprolactinoma versus psychotropic medications inducing the aforementioned transient elevation of the prolactin level as noted. PLAN: Plan of management as discussed with the patient and the staff. We will modify her current insulin regimen and switch her over to a more physiologic basal and bolus insulin drug combination with NovoLog given as 12 units subcu t.i.d. before meals as ordered to start today. We will also modify the coverage scale using low dose of NovoLog insulin to await hypoglycemia and detailed orders have been given. We will also start her on a long-acting basal insulin with Lantus given as 30 units subcu at bedtime daily prescribed tonight. We will obtain serial chemistries and supplement accordingly as needed. We will repeat the prolactin level and also add a serum cortisol and ACTH level and repeat thyroid studies to rule out any underlying endocrinopathy thereof. We will also initiate diabetic education and dietary instructions at the time of this admission. We will titrate her insulin dose regimen to optimize metabolic control. We will encourage her to partake of her current meal plan orders as given. We will follow. Greta Mcgill MD
[2017-01-03] MEDS: metroNIDAZOLE IV 500 mg/100 ml 500 MG/100 ML BAG IVPB SCH ×3 (05:16→21:35)
[2017-01-03] MEDS: Sodium Chloride 0.9% 1,000 ML IV SCH ×2 (08:20→11:57)
[2017-01-03] MEDS: (Novolog) Insulin Aspart, Recombinant 100 u/ml 10 ml vial SC SCH ×7 (08:47→21:38)
[2017-01-03] MEDS: NIFEdipine 30 mg ER Tab PO SCH (12:04)
[2017-01-03 13:21] LABS: BASO # 0.1 K/uL (0.0-0.2); BASO % 0.7 % (0.0-2.0); HEMATOCRIT 33.4 % (34.0-47.0); LYMPH # 1.9 K/uL (1.0-4.3); LYMPH % 14.4 % (20.0-40.0); MEAN CELL VOLUME 84.7 fL (81.0-99.0); MEAN CORPUSCULAR HEMOGLOBIN 27.7 pg (27.0-31.0); MEAN CORPUSCULAR HGB CONC 32.7 g/dL (33.0-37.0); MEAN PLATELET VOLUME 10.2 fL (7.2-11.7); MONO # 0.6 K/uL (0.0-0.8); MONO % 4.8 % (0.0-10.0); RED CELL DISTRIBUTION WIDTH 15.1 % (11.5-14.5)
[2017-01-03 13:49] LABS: ALB/GLOB RATIO 0.9 (1.0-2.1); BILIRUBIN,TOTAL 0.4 mg/dL (0.2-1.3); CALCIUM 8.9 mg/dl (8.6-10.4); PHOSPHOROUS 2.8 mg/dL (2.5-4.5); TOTAL PROTEIN 5.9 g/dL (6.3-8.3)
[2017-01-03 13:51] LABS: CREATININE, RANDOM URINE 94.4 mg/dL
[2017-01-03] MEDS: Folic Acid 1 MG, Thiamine 100 MG, Multivitamin (MVI) 10 ML in Dextrose 5% In Water 1,00... IV SCH (14:25)
--- NOTE | 2017-01-03 15:53 | CP.PCM.PN ---
<Bhavani Palafox V - Last Filed: 01/03/17 18:29> Objective - Vital Signs/Intake and Output Vital Signs (last 24 hours): Temp Pulse Resp BP Pulse Ox 99.1 F 94 H 20 144/88 97 01/03/17 15:46 01/03/17 15:46 01/03/17 15:46 01/03/17 15:46 01/03/17 15:46 Intake and Output: 01/03/17 01/03/17 06:59 18:59 Intake Total 900 1595 Balance 900 1595 - Medications Medications: Current Medications Amlodipine Besylate (Norvasc) 10 mg PO DAILY [facility] Last Admin: 01/03/17 12:03 Dose: 10 mg Cyanocobalamin (Vitamin B12 1000 Mcg Tab) 1,000 mcg PO DAILY [facility] Last Admin: 01/03/17 12:03 Dose: 1,000 mcg Escitalopram Oxalate (Lexapro) 10 mg PO DAILY [facility] Last Admin: 01/03/17 12:03 Dose: 10 mg Ferrous Sulfate (Feosol) 325 mg PO BID [facility] Last Admin: 01/03/17 17:14 Dose: Not Given Gabapentin (Neurontin) 300 mg PO BID [facility] Last Admin: 01/03/17 17:14 Dose: Not Given Hydralazine HCl (Apresoline) 10 mg IVP Q6H PRN PRN Reason: Systolic Blood Pressure Last Admin: 01/02/17 16:59 Dose: 10 mg Hydroxyzine HCl (Atarax) 25 mg PO QID [facility] Last Admin: 01/03/17 17:14 Dose: Not Given Metronidazole (Flagyl) 500 mg in 100 mls @ 100 mls/hr IVPB Q8 [facility] Last Admin: 01/03/17 14:25 Dose: 100 mls/hr Folic Acid 1 mg/ Thiamine HCl 100 mg/ Multivitamins/Vitamin C 10 ml/ Dextrose 1 ,011.2 mls @ 75 mls/hr IV DAILY@1430 [facility] Last Admin: 01/03/17 14:25 Dose: 75 mls/hr Potassium Chloride 20 meq/ (Sodium Chloride) 1,010 mls @ 100 mls/hr IV .Q10H6M [facility] Piperacillin Sod/Tazobactam (Sod 2.25 gm/ Sodium Chloride) 100 mls @ 200 mls/ hr IVPB Q8H [facility] Potassium Chloride (Potassium Chloride 20 Meq/100 Ml) 20 meq in 100 mls @ 50 mls/hr IVPB ONCE ONE Stop: 01/03/17 20:26 Insulin Aspart (Novolog) 0 unit SC ACHS [facility] PRN Reason: Protocol Last Admin: 01/03/17 16:32 Dose: Not Given Insulin Aspart (Novolog) 6 unit SC AC [facility] Last Admin: 01/03/17 16:32 Dose: Not Given Insulin Glargine (Lantus) 30 unit SC HS [facility] Last Admin: 01/02/17 22:17 Dose: 30 unit Levetiracetam (Keppra) 250 mg PO BID [facility] Last Admin: 01/03/17 17:14 Dose: Not Given Lisinopril (Zestril) 20 mg PO DAILY [facility] Last Admin: 01/02/17 10:58 Dose: Not Given Metoclopramide HCl (Reglan) 10 mg IVP Q6H PRN PRN Reason: Nausea/Vomiting Last Admin: 01/03/17 12:01 Dose: 10 mg Nifedipine (Procardia Xl) 30 mg PO DAILY [facility] Last Admin: 01/03/17 12:04 Dose: 30 mg Ondansetron HCl (Zofran Inj) 4 mg IVP Q6H PRN PRN Reason: Nausea/Vomiting Last Admin: 01/03/17 08:52 Dose: 4 mg Pantoprazole Sodium (Protonix Inj) 40 mg IVP DAILY [facility] Last Admin: 01/03/17 12:03 Dose: 40 mg - Labs Labs: 01/03/17 13:05 01/03/17 13:05 Attending/Attestation - Attestation I have personally seen and examined this patient.: Yes I have fully participated in the care of the patient.: Yes I have reviewed all pertinent clinical information, including history, physical exam and plan: Yes Notes (Text): Patient seen, examined, and case discussed with day-time resident. patient seen at bedside. patient sleeping comfortable with mother's friend at bedside. Per mother's friend patient seen trying to throw up. Patient seen at bedside in the afternoon. Patient did not seize in front of me or attempt to fake seizure in front of me. Patient however did self-induce vomited in front of me. patient reports her throat hurts and I advised to stop trying to vomited because that will lower her potassium and can cause fatal arrthymia and cause cardiac arrest. Patient has refused renal US ordered by nephrology. Held patient's 12 units of Lantus today because patient is not eating. Patient is on banana bag and supplemented IV fluids to maintain hydration. I had a brittani conversation with the patient, given she is a type 1 diabetic, insulin dependent, that she needs to stop the induction of vomitting and needs to eat. I also told her she cannot drink excessive juice intake because she will cause the seizures which is part of the reason why she is being observed. Ordered for CT abdomen/pelvis PO contrast-->r/o other causes of abdominal pain, hx of diabetic gastroperesis; Patient's white count is coming down, afebrile. Ordered for lipase/amylase in the AM. Will request GI consult r/o other causes of abdominal pain. Endocrinology consult-->appreciate input. Patient is placed on moderate carb consistent diet. UA is positive for urinary tract infection and may account for procalcitonin. pending urine culture. Ordered blood cultures. Discussed with nephrology, likely acute renal insufficiency is more of chronic given her diabetes. Unlikely this is psychogenic polydipsia. Patient will need psychology and neurology as outpatient when she is ready to be discharge. Patient is refused her medications with nursing staff. Patient seen throwing up and self-induced throwing up. Assessment/Plan 1) Uncontrolled diabetes type 1 * Blood Glucose 651 on admission. Patient given 20 units of insulin. Blood Glucose improved to 168. * Sugars are inconsistent partly due to patient's behavior to drink excessive sugar juices--suspecting to induce seizure or get Ativan * Endocrinology (Dr. Mcgill) consulted help appreciated * Per endo, patient start on moderate carb consistent diet * Lantus 17 units SC HS; Novolog 7 units TIDAC 2) Seizure History of Pseudoseizures * Neuro Consult: Dr. Cruz on board-->helpa appreciated * Wean off of Keppra 750mg IV Q12 changed to Keppra 250mg PO bid * Keppra will not help and may make her worse; uncommon side effect: Keprrea is personality changes and psychosis with irritability-->taper over the next week * Psych Consult: Dr. Mckeon help appreciated * Depression and Anxiety: Resume lexapro, not zoloft (had SEs); Gabapentin for anxiety; Inderal or buspar later on if need; Support and psychoed, Refer to indiv. 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 Patient was started on Lexapro 5mg on d/c, unknown if pt actually took medications. * Prolactin: 315.5 * 1:1 sitter to monitor for seeking behavior * Patient will need outpatient 24 hour EEG at capable facility to monitor seizure activity 3) Abdominal pain with vomiting * History of Diabetic Gastoperesis * Self-induced vomitting observed by nursing staff on various shifts * PRIOR STUDY ON 12/27/2016 - CT abdomen/pelvis (no contrast because patient refused): diffusely thickened bladder wall. recommendations for UA to rule out cystitis. UA performed on 12/24 and 12/31: No signs of obvious infectious etiology * CT Chest: No acute infiltrates. Mild atelectasis as above. Evaluation for adenopathy is also limited due to a relative paucity of mediastinal fat. There is soft tissue seen within the anterior mediastinum which could represent volume averaging of the pulmonary trunk, ascending thoracic aorta and traversing brachiocephalic vein and possibly some residual thymic tissue. . However adenopathy or other soft tissue mass not completely excluded. Mild cardiomegaly. * Medications: Reglan 10mg PO Q6H PRN and Zofran 4 mg IV Q6 PRN 4) SIRS * Criteria: Positive for elevated WBC,tachycardia,Possible source: UTI * CT Chest: No acute infiltrates. Mild atelectasis as above. Evaluation for adenopathy is also limited due to a relative paucity of mediastinal fat. There is soft tissue seen within the anterior mediastinum which could represent volume averaging of the pulmonary trunk, ascending thoracic aorta and traversing brachiocephalic vein and possibly some residual thymic tissue. . However adenopathy or other soft tissue mass not completely excluded. Mild cardiomegaly. * Zosyn 2.25g IV Q8H, Flagyl 500mg IV Q8H (active since 01/01/17) * UA (01/02/17): 2+ LE, WBC 265, 3+ glucose, 3+ protein, not clean catch (Sq Epith 16) 5) HTN (hypertension) * Hydralazine 10 mg Q6 PRN SBP >160 * Nifedipine 30mg PO daily * Lisinopril 20mg PO daily * Norvasc 10mg PO daily * Monitor with vital checks 6) Depressive disorder * Lexapro 5 mg PO QD as stated above 6) Hypokalemia * Exacerbated by patient's vomitting and self-induced vomitting * Replete * check Mg2+ and K+ 7) Prophylactic measure * Started Protonix 40mg IVP daily * Placed on SCDs * Patient risk is 0-->SCDS b/l Disposition: Patient currently refusing imaging. Patient has been caught multiple times drinking excessive juices and gingerale then self inducing vomiting. Patient is on IV abx to cover for urinary tract infection. Patient is pending urine culture. Order for GI consult r/o other causes of abdominal pain, within hx of self induced vomitting and hx of diabetic gastroperesis. <Jerome Medina - Last Filed: 01/03/17 18:53> Subjective - Date & Time of Evaluation Date of Evaluation: 01/03/17 Time of Evaluation: 15:50 - Subjective Subjective: Progress note. Attending: Dr. Palafox Pt seen at bedside. Pt answering questions only minimally and refused exam. Renal US cancelled due to pt refusal. No fevers, chills, seizures. Pt vomited with some blood 2x overnight. Objective - Vital Signs/Intake and Output Vital Signs (last 24 hours): Temp Pulse Resp BP Pulse Ox 99.1 F 94 H 20 144/88 97 01/03/17 15:46 01/03/17 15:46 01/03/17 15:46 01/03/17 15:46 01/03/17 15:46 Intake and Output: 01/03/17 01/03/17 06:59 18:59 Intake Total 900 Balance 900 - Medications Medications: Current Medications Amlodipine Besylate (Norvasc) 10 mg PO DAILY [facility] Last Admin: 01/03/17 12:03 Dose: 10 mg Cyanocobalamin (Vitamin B12 1000 Mcg Tab) 1,000 mcg PO DAILY [facility] Last Admin: 01/03/17 12:03 Dose: 1,000 mcg Escitalopram Oxalate (Lexapro) 10 mg PO DAILY [facility] Last Admin: 01/03/17 12:03 Dose: 10 mg Ferrous Sulfate (Feosol) 325 mg PO BID [facility] Last Admin: 01/03/17 12:04 Dose: 325 mg Gabapentin (Neurontin) 300 mg PO BID [facility] Last Admin: 01/03/17 12:03 Dose: 300 mg Hydralazine HCl (Apresoline) 10 mg IVP Q6H PRN PRN Reason: Systolic Blood Pressure Last Admin: 01/02/17 16:59 Dose: 10 mg Hydroxyzine HCl (Atarax) 25 mg PO QID [facility] Last Admin: 01/03/17 14:26 Dose: Not Given Metronidazole (Flagyl) 500 mg in 100 mls @ 100 mls/hr IVPB Q8 [facility] Last Admin: 01/03/17 14:25 Dose: 100 mls/hr Piperacillin Sod/Tazobactam (Sod 2.25 gm/ Sodium Chloride) 100 mls @ 200 mls/ hr IVPB Q6H [facility] Last Admin: 01/03/17 13:09 Dose: 200 mls/hr Folic Acid 1 mg/ Thiamine HCl 100 mg/ Multivitamins/Vitamin C 10 ml/ Dextrose 1 ,011.2 mls @ 75 mls/hr IV DAILY@1430 [facility] Last Admin: 01/03/17 14:25 Dose: 75 mls/hr Sodium Chloride (Sodium Chloride 0.9%) 1,000 mls @ 100 mls/hr IV .Q10H [facility] Last Admin: 01/03/17 11:57 Dose: 100 mls/hr Potassium Chloride (Potassium Chloride 20 Meq/100 Ml) 20 meq in 100 mls @ 50 mls/hr IVPB ONCE ONE Stop: 01/03/17 17:30 Last Admin: 01/03/17 15:50 Dose: 50 mls/hr Insulin Aspart (Novolog) 0 unit SC ACHS [facility] PRN Reason: Protocol Last Admin: 01/03/17 12:45 Dose: Not Given Insulin Aspart (Novolog) 6 unit SC AC [facility] Insulin Glargine (Lantus) 30 unit SC HS [facility] Last Admin: 01/02/17 22:17 Dose: 30 unit Levetiracetam (Keppra) 250 mg PO BID [facility] Last Admin: 01/03/17 12:03 Dose: 250 mg Lisinopril (Zestril) 20 mg PO DAILY [facility] Last Admin: 01/02/17 10:58 Dose: Not Given Metoclopramide HCl (Reglan) 10 mg IVP Q6H PRN PRN Reason: Nausea/Vomiting Last Admin: 01/03/17 12:01 Dose: 10 mg Nifedipine (Procardia Xl) 30 mg PO DAILY [facility] Last Admin: 01/03/17 12:04 Dose: 30 mg Ondansetron HCl (Zofran Inj) 4 mg IVP Q6H PRN PRN Reason: Nausea/Vomiting Last Admin: 01/03/17 08:52 Dose: 4 mg Pantoprazole Sodium (Protonix Inj) 40 mg IVP DAILY [facility] Last Admin: 01/03/17 12:03 Dose: 40 mg - Labs Labs: 01/03/17 13:05 01/03/17 13:05 - Additional Findings Additional findings: Pt refused exam today Assessment and Plan - Assessment and Plan (Free Text) Assessment: Hyperglycemia with Hx DM Endocrinology. Dr. Mcgill consulted. recs appreciated. novolog 12 units AC lantus 30 units HS ISS cortisol level pending ACTH level pending urine drug screen negative Seizure Neuro Consult: Dr. Cruz * Wean off of Keppra 750mg IV Q12 because seizures seem to be 2/2 hyper/ hypoglycemia Psych Consult: Dr. Mckeon * Depression and Anxiety: * Resume lexapro, not zoloft (had SEs) * Gabapentin for anxiety * Inderal or buspar later on if needed * Refer to indiv. 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 Patient was started on Lexapro 5mg on d/c, unknown if pt actually took medications. Prolactin: 315.5 Patient will need outpatient 24 hour EEG at [facility] facility to monitor seizure activity will need getachew sys monitoring for malingering behavioro Abdominal pain with vomiting PRIOR STUDY ON 12/27/2016 - CT abdomen/pelvis (no contrast because patient refused ): diffusely thickened bladder wall. recommendations for UA to rule out cystitis. UA performed on 12/24 and 12/31: No signs of obvious infectious etiology Procalcitonin 4.7 , repeat pro tran tomorrow * ABG - metabolic acidosis with resp compensation * Flu, Strep Negative * blood culture negative thus far * UA +Leukocyte esterase - Probable UTI * urine culture shows gram positive cocci * CT Chest: No acute infiltrates. Mild atelectasis as above.Evaluation for adenopathy is also limited due to a relative paucity of mediastinal fat. There is soft tissue seen within the anterior mediastinum which could represent volume averaging of the pulmonary trunk, ascending thoracic aorta and traversing brachiocephalic vein and possibly some residual thymic tissue. . However adenopathy or other soft tissue mass not completely excluded. Mild cardiomegaly. * Zosyn 2.25g IV Q8, Flagyl 500mg IV Q8 * Nephro Consult ([facility]) - ordered renal US but patient refused Medications: * Reglan 10mg PO Q6H PRN * Zofran 4 mg IV Q6 PRN SIRS criteria Positive for elevated WBC,tachycardia Possible source: UTI -UA (01/02/17): 2+ LE, WBC 265, 3+ glucose, 3+ protein, - not clean catch (Sq Epith 16) - CXR and CT Chest (01/01/17): No acute infiltrates - Zosyn 2.25g IV Q8H (First dose 01/01/17) - Flagyl 500mg IV Q8H (First dose 01/01/17) HTN (hypertension) Hydralazine 10 mg Q6 PRN SBP >160 Nifedipine 30mg PO daily Lisinopril 20mg PO daily Norvasc 10mg PO daily Monitor with vital checks Depressive disorder Lexapro 5 mg PO QD as stated above Prophylactic measure Started Protonix 40mg IVP daily Placed on SCDs Anti-coag contraindicated due to patient vomiting blood Discussed with Dr. Palafox
--- NOTE | 2017-01-03 19:03 | PN ---
ENDOCRINOLOGY FOLLOWUP NOTE SUBJECTIVE: This is a 26-year-old female with recent uncontrolled type 1 insulin-dependent diabetes, presenting here with intractable vomiting episodes and diffuse abdominal pain and is now being followed closely for metabolic management. Her oral intake continues to be quite variable and suboptimal at this time as per the nursing staff. Her latest glucose levels have ranged from 110 to 149 and 251 mg/dL. Her latest chemistry shows a BUN of 20, sodium 141, potassium 3.0, chloride 105, CO2 of 25, glucose 99, and creatinine 2.1. So at this time, we will modify and lower her basal and bolus insulin regimen and lower the NovoLog to 6 units subcu t.i.d. before meals as ordered. We will continue the Lantus given as 30 units subcu at bedtime daily as given. We will continue also the low dose correction scale using NovoLog insulin as given. We will obtain serial chemistries and supplement accordingly as needed. We will follow. Greta Mcgill MD
[2017-01-03] MEDS ORDERED: (Lantus) Insulin Glargine, Recombinant SC SCH (22:00)
--- NOTE | 2017-01-03 23:52 | CP.PCM.PN ---
Subjective - Date & Time of Evaluation Date of Evaluation: 01/03/17 Time of Evaluation: 17:00 - Subjective Subjective: Patient self-inducing vomiting per nursing staff; not eating; Objective - Vital Signs/Intake and Output Vital Signs (last 24 hours): Temp Pulse Resp BP Pulse Ox 99.1 F 94 H 20 144/88 97 01/03/17 15:46 01/03/17 15:46 01/03/17 15:46 01/03/17 15:46 01/03/17 15:46 Intake and Output: 01/03/17 01/04/17 18:59 06:59 Intake Total 1595 Balance 1595 - Medications Medications: Current Medications Amlodipine Besylate (Norvasc) 10 mg PO DAILY [facility] Last Admin: 01/03/17 12:03 Dose: 10 mg Cyanocobalamin (Vitamin B12 1000 Mcg Tab) 1,000 mcg PO DAILY [facility] Last Admin: 01/03/17 12:03 Dose: 1,000 mcg Escitalopram Oxalate (Lexapro) 10 mg PO DAILY [facility] Last Admin: 01/03/17 12:03 Dose: 10 mg Ferrous Sulfate (Feosol) 325 mg PO BID [facility] Last Admin: 01/03/17 17:14 Dose: Not Given Gabapentin (Neurontin) 300 mg PO BID [facility] Last Admin: 01/03/17 17:14 Dose: Not Given Hydralazine HCl (Apresoline) 10 mg IVP Q6H PRN PRN Reason: Systolic Blood Pressure Last Admin: 01/02/17 16:59 Dose: 10 mg Hydroxyzine HCl (Atarax) 25 mg PO QID [facility] Last Admin: 01/03/17 21:37 Dose: Not Given Metronidazole (Flagyl) 500 mg in 100 mls @ 100 mls/hr IVPB Q8 [facility] Last Admin: 01/03/17 21:35 Dose: 100 mls/hr Potassium Chloride 20 meq/ (Sodium Chloride) 1,010 mls @ 100 mls/hr IV .Q10H6M [facility] Last Admin: 01/03/17 19:15 Dose: 100 mls/hr Piperacillin Sod/Tazobactam (Sod 2.25 gm/ Sodium Chloride) 100 mls @ 200 mls/ hr IVPB Q8H [facility] Last Admin: 01/03/17 19:15 Dose: 200 mls/hr Insulin Aspart (Novolog) 0 unit SC ACHS [facility] PRN Reason: Protocol Last Admin: 01/03/17 21:38 Dose: Not Given Insulin Aspart (Novolog) 6 unit SC AC [facility] Last Admin: 01/03/17 16:32 Dose: Not Given Insulin Glargine (Lantus) 15 unit SC HS [facility] Last Admin: 01/03/17 22:01 Dose: Not Given Levetiracetam (Keppra) 250 mg PO BID [facility] Last Admin: 01/03/17 17:14 Dose: Not Given Lisinopril (Zestril) 20 mg PO DAILY [facility] Last Admin: 01/02/17 10:58 Dose: Not Given Metoclopramide HCl (Reglan) 10 mg IVP Q6H PRN PRN Reason: Nausea/Vomiting Last Admin: 01/03/17 12:01 Dose: 10 mg Nifedipine (Procardia Xl) 30 mg PO DAILY [facility] Last Admin: 01/03/17 12:04 Dose: 30 mg Ondansetron HCl (Zofran Inj) 4 mg IVP Q6H PRN PRN Reason: Nausea/Vomiting Last Admin: 01/03/17 08:52 Dose: 4 mg Pantoprazole Sodium (Protonix Inj) 40 mg IVP DAILY [facility] Last Admin: 01/03/17 12:03 Dose: 40 mg - Labs Labs: 01/03/17 13:05 01/03/17 13:05 - Constitutional Appears: Other (Lethargic) - Head Exam Head Exam: NORMAL INSPECTION - Eye Exam Eye Exam: Normal appearance. absent: Scleral icterus - Respiratory Exam Respiratory Exam: Clear to Ausculation Bilateral, NORMAL BREATHING PATTERN - Cardiovascular Exam Cardiovascular Exam: REGULAR RHYTHM, +S1, +S2 - GI/Abdominal Exam GI & Abdominal Exam: Soft, Tenderness - Extremities Exam Additional comments: no leg edema; - Neurological Exam Neurological Exam: Alert, Awake - Psychiatric Exam Psychiatric exam: Depressed - Skin Skin Exam: Normal Color, Warm. absent: Cyanosis Assessment and Plan (1) Acute kidney injury Assessment & Plan: GABRIELA on CKD; pre-renal etiology in setting of vomiting/volume depletion; -continue IVF w/ NS at 100 cc/hr (20 meq/L KCl being added) Status: Acute (2) Hypokalemia Assessment & Plan: Being given K riders; adding KCl to IVF; Status: Acute (3) HTN (hypertension) Assessment & Plan: BP improved; on both nifedipine XL and amlodipine, will d/c amlodipine (same class of CCB); can increase nifedipine dose as required; Status: Acute (4) CKD (chronic kidney disease) stage 3, GFR 30-59 ml/min Assessment & Plan: CKD IIIB likely due to diabetic nephropathy; workup ordered to look for other causes, however, patient non-cooperative; will f/u; Status: Acute
[2017-01-04] MEDS: Piperacillin/Tazobact 2.25 GM in Sodium Chloride 100 ML IVPB SCH ×3 (00:50→17:14)
[2017-01-04] MEDS: metroNIDAZOLE IV 500 mg/100 ml 500 MG/100 ML BAG IVPB SCH ×2 (06:50→13:50)
[2017-01-04] MEDS: (Novolog) Insulin Aspart, Recombinant 100 u/ml 10 ml vial SC SCH ×7 (07:49→22:01)
[2017-01-04] MEDS: NIFEdipine 30 mg ER Tab PO SCH ×2 (09:32→09:41)
--- NOTE | 2017-01-04 11:00 | PN ---
ENDOCRINOLOGY FOLLOWUP NOTE LOCATION: Room #559. SUBJECTIVE: This is a 26-year-old female with recent uncontrolled type 1 insulin-dependent diabetes, presenting here with intractable abdominal pain and now, being followed closely for metabolic management. She continues to have very poor suboptimal and variable oral intake at this time. Her glucose values are fluctuating, but improved and the latest glucose levels have ranged from 139 to 145 mg/dL. It was 110 to 161 at bedtime last night. The latest chemistry showed a BUN of 20, sodium 141, potassium 3.0, chloride 105, CO2 of 25, glucose 99 and creatinine 2.1, so at this time, we will modify her basal and bolus insulin regimen and lower the Lantus to 14 units subQ at bedtime daily, to start tonight. We will continue the low-dose correction scale using NovoLog insulin as given. We will also continue the low-dose preprandial NovoLog given as 6 units subQ t.i.d. before meals as ordered. We will titrate incrementally as indicated to optimize metabolic control. We will continue also the IV hydration as given. We will obtain serial chemistries and supplement accordingly as needed. We will follow. Greta Mcgill MD
--- NOTE | 2017-01-04 11:11 | CP.PCM.CON ---
History of Present Illness - History of Present Illness History of Present Illness: This is a 26 year old female with a past history of Type I DM, HTN, seizures, anxiety and depression who presented to the ER with complaints of vomiting and seizures. The mother stated that the patient has had multiple seizures and was vomiting, with blood mixed in. Of note, she was discharged last week after being hospitalized for similar symptoms. She was given instuctions to follow up at an [facility] and with a psychiatrist due to her anxiety and possible pseudo-seizures. In the ER, she had three episodes of convulsive activity lasting 15-30 seconds. She was not post-ictal afterward, and immediately requested Ativan. She continues to complain of nausea and vomiting. She denies having heartburn, difficulty swallowing, diarrhea, constipation, rectal bleeding. Patient had a Gastric Empt[place] [facility] [place] ago, but the results are not available at present. She underwent EGD 11/05/2016 which showed reflux esophagitis and non-erosive gastritis. Review of Systems - Review of Systems All systems: reviewed and no additional remarkable complaints except - Cardiovascular Cardiovascular: absent: Chest Pain - Gastrointestinal Gastrointestinal: Abdominal Pain, Hematemesis, Nausea, Vomiting. absent: Constipation, Diarrhea, Dysphagia, Heartburn Past Patient History - Infectious Disease Hx of Infectious Diseases: None - Past Medical History & Family History Past Medical History?: Yes - Past Social History Smoking Status: Former Smoker Alcohol: None Drugs: Denies - CARDIAC Hx Hypertension: Yes - PULMONARY Hx Respiratory Disorders: No - NEUROLOGICAL Hx Seizures: Yes - HEENT Hx HEENT Problems: Yes Other/Comment: blurred vision both eyes uses eyeglasses - RENAL Hx Chronic Kidney Disease: No - ENDOCRINE/METABOLIC Hx Endocrine Disorders: Yes Hx Diabetes Mellitus Type 1: Yes - HEMATOLOGICAL/ONCOLOGICAL Hx Anemia: Yes - INTEGUMENTARY Hx Dermatological Problems: No - MUSCULOSKELETAL/RHEUMATOLOGICAL Hx Musculoskeletal Disorders: Yes Hx Falls: Yes - GASTROINTESTINAL Hx Gastrointestinal Disorders: Yes (SEE COMMENT) Other/Comment: gastroparesis - GENITOURINARY/GYNECOLOGICAL Hx Genitourinary Disorders: No - PSYCHIATRIC Hx Anxiety: Yes Hx Depression: Yes Hx Substance Use: No - SURGICAL HISTORY Hx Surgeries: Yes - ANESTHESIA Hx Anesthesia: Yes Hx Anesthesia Reactions: No Hx Malignant Hyperthermia: No Meds Allergies/Adverse Reactions: Allergies Allergy/AdvReac Type Severity Reaction Status Date / Time No Known Allergies Allergy Verified 12/23/16 19:17 - Medications Medications: Current Medications Amlodipine Besylate (Norvasc) 10 mg PO DAILY [facility] Last Admin: 01/04/17 09:40 Dose: Not Given Cyanocobalamin (Vitamin B12 1000 Mcg Tab) 1,000 mcg PO DAILY [facility] Last Admin: 01/04/17 09:41 Dose: Not Given Escitalopram Oxalate (Lexapro) 10 mg PO DAILY [facility] Last Admin: 01/04/17 09:40 Dose: Not Given Ferrous Sulfate (Feosol) 325 mg PO BID [facility] Last Admin: 01/04/17 09:39 Dose: Not Given Gabapentin (Neurontin) 300 mg PO BID [facility] Last Admin: 01/04/17 09:40 Dose: Not Given Hydralazine HCl (Apresoline) 10 mg IVP Q6H PRN PRN Reason: Systolic Blood Pressure Last Admin: 01/02/17 16:59 Dose: 10 mg Hydroxyzine HCl (Atarax) 25 mg PO QID [facility] Last Admin: 01/04/17 09:39 Dose: Not Given Metronidazole (Flagyl) 500 mg in 100 mls @ 100 mls/hr IVPB Q8 [facility] Last Admin: 01/04/17 06:50 Dose: 100 mls/hr Potassium Chloride 20 meq/ (Sodium Chloride) 1,010 mls @ 100 mls/hr IV .Q10H6M [facility] Last Admin: 01/04/17 09:24 Dose: 100 mls/hr Piperacillin Sod/Tazobactam (Sod 2.25 gm/ Sodium Chloride) 100 mls @ 200 mls/ hr IVPB Q8H [facility] Last Admin: 01/04/17 09:26 Dose: 200 mls/hr Insulin Aspart (Novolog) 0 unit SC ACHS [facility] PRN Reason: Protocol Last Admin: 01/04/17 07:49 Dose: Not Given Insulin Aspart (Novolog) 6 unit SC AC [facility] Last Admin: 01/04/17 08:47 Dose: Not Given Insulin Glargine (Lantus) 14 unit SC HS [facility] Levetiracetam (Keppra) 250 mg PO BID [facility] Last Admin: 01/04/17 09:39 Dose: Not Given Lisinopril (Zestril) 20 mg PO DAILY [facility] Last Admin: 01/02/17 10:58 Dose: Not Given Nifedipine (Procardia Xl) 30 mg PO DAILY [facility] Last Admin: 01/04/17 09:41 Dose: Not Given Ondansetron HCl (Zofran Inj) 4 mg IVP Q6H PRN PRN Reason: Nausea/Vomiting Last Admin: 01/04/17 09:30 Dose: 4 mg Pantoprazole Sodium (Protonix Inj) 40 mg IVP DAILY [facility] Last Admin: 01/04/17 09:31 Dose: 40 mg Physical Exam - Head Exam Head Exam: ATRAUMATIC, NORMOCEPHALIC - Eye Exam Eye Exam: EOMI, PERRL - Neck Exam Neck exam: Negative for: Lymphadenopathy, Thyromegaly - Respiratory Exam Respiratory Exam: NORMAL BREATHING PATTERN. absent: Rales, Rhonchi, Wheezes - Cardiovascular Exam Cardiovascular Exam: REGULAR RHYTHM, +S1, +S2. absent: Gallop, Rubs, Systolic Murmur - GI/Abdominal Exam GI & Abdominal Exam: Normal Bowel Sounds, Soft. absent: Mass, Organomegaly, Tenderness - Rectal Exam Rectal Exam: Deferred - Extremities Exam Extremities exam: Negative for: calf tenderness, pedal edema Results - Vital Signs Recent Vital Signs: Last Vital Signs Temp 98.4 F 01/04/17 08:30 Pulse 86 01/04/17 08:30 Resp 20 01/04/17 08:30 BP 145/94 H 01/04/17 08:30 Pulse Ox 96 01/04/17 08:30 - Labs Result Diagrams: 01/03/17 13:05 01/05/17 09:02 Labs: Laboratory Results - last 24 hr 01/03/17 01/03/17 01/03/17 11:05 13:05 13:05 WBC 13.0 H RBC 3.94 Hgb 10.9 L Hct 33.4 L MCV 84.7 MCH 27.7 MCHC 32.7 L RDW 15.1 H Plt Count 282 MPV 10.2 Neut % (Auto) 80.1 H Lymph % (Auto) 14.4 L [place] % (Auto) 4.8 Eos % (Auto) 0.0 Baso % (Auto) 0.7 Neut # 10.4 H Lymph # 1.9 [place] # 0.6 Eos # 0.0 Baso # 0.1 Sodium 141 Potassium 3.0 L Chloride 105 Carbon Dioxide 25 Anion Gap 14 BUN 20 H Creatinine 2.1 H Est GFR ( Amer) 34 Est GFR (Non-Af Amer) 28 POC Glucose (mg/dL) 149 H Random Glucose 99 Calcium 8.9 Phosphorus 2.8 Magnesium 2.0 Total Bilirubin 0.4 AST 29 ALT 22 Alkaline Phosphatase 82 Total Protein 5.9 L Albumin 2.8 L Globulin 3.1 Albumin/Globulin Ratio 0.9 L Prolactin 287.7 H Cortisol AM Sample 39.0 H Ur Random Creatinine Ur Random Sodium Hepatitis A IgM Ab Hep Bs Antigen Hep B Core IgM Ab Hepatitis C Antibody 01/03/17 01/03/17 01/03/17 13:05 13:37 16:08 WBC RBC Hgb Hct MCV MCH MCHC RDW Plt Count MPV Neut % (Auto) Lymph % (Auto) [place] % (Auto) Eos % (Auto) Baso % (Auto) Neut # Lymph # [place] # Eos # Baso # Sodium Potassium Chloride Carbon Dioxide Anion Gap BUN Creatinine Est GFR ( Amer) Est GFR (Non-Af Amer) POC Glucose (mg/dL) 110 Random Glucose Calcium Phosphorus Magnesium Total Bilirubin AST ALT Alkaline Phosphatase Total Protein Albumin Globulin Albumin/Globulin Ratio Prolactin Cortisol AM Sample Ur Random Creatinine 94.4 Ur Random Sodium 32 Hepatitis A IgM Ab Negative Hep Bs Antigen Negative Hep B Core IgM Ab Negative Hepatitis C Antibody Negative 01/03/17 01/04/17 01/04/17 21:02 00:14 06:11 WBC RBC Hgb Hct MCV MCH MCHC RDW Plt Count MPV Neut % (Auto) Lymph % (Auto) [place] % (Auto) Eos % (Auto) Baso % (Auto) Neut # Lymph # [place] # Eos # Baso # Sodium Potassium Chloride Carbon Dioxide Anion Gap BUN Creatinine Est GFR ( Amer) Est GFR (Non-Af Amer) POC Glucose (mg/dL) 161 H 139 H 145 H Random Glucose Calcium Phosphorus Magnesium Total Bilirubin AST ALT Alkaline Phosphatase Total Protein Albumin Globulin Albumin/Globulin Ratio Prolactin Cortisol AM Sample Ur Random Creatinine Ur Random Sodium Hepatitis A IgM Ab Hep Bs Antigen Hep B Core IgM Ab Hepatitis C Antibody Assessment & Plan (1) Nausea and vomiting Assessment and Plan: Patient has a history of nausea and vomiting. EGD two months ago showed significant reflux esophagitis but no retained food. A Gastric Emptying Scan has been performed recently, but the results are currently unavailable. If we cannot obtain the results, I would suggest repeating the study. Status: Acute
[2017-01-04 17:20] LABS: POTASSIUM 3.3 mmol/L (3.6-5.2)
[2017-01-04 17:22] LABS: ALB/GLOB RATIO 0.9 (1.0-2.1); BILIRUBIN,TOTAL 0.4 mg/dL (0.2-1.3); TOTAL PROTEIN 5.3 g/dL (6.3-8.3)
[2017-01-04 17:23] LABS: CALCIUM 7.8 mg/dl (8.6-10.4); PHOSPHOROUS 2.8 mg/dL (2.5-4.5)
--- NOTE | 2017-01-04 18:29 | CP.PCM.PN ---
<Jerome Medina - Last Filed: 01/04/17 18:30> Subjective - Date & Time of Evaluation Date of Evaluation: 01/04/17 Time of Evaluation: 18:25 - Subjective Subjective: Progress note. Attending: Dr. Palafox Pt seen and examined at bedside. No acute distress. Pt looks very uncomfortable. Pt was screaming for ativan. Pt has been self inducing vomiting. On [place] sys. Patient has a lot of abd pain. Objective - Vital Signs/Intake and Output Vital Signs (last 24 hours): Temp Pulse Resp BP Pulse Ox 98.5 F 118 H 20 183/109 H 97 01/04/17 16:53 01/04/17 16:53 01/04/17 16:53 01/04/17 16:53 01/04/17 16:53 Intake and Output: 01/04/17 01/04/17 06:59 18:59 Intake Total 1880 Balance 1880 - Medications Medications: Current Medications Cyanocobalamin (Vitamin B12 1000 Mcg Tab) 1,000 mcg PO DAILY [facility] Last Admin: 01/04/17 09:41 Dose: Not Given Escitalopram Oxalate (Lexapro) 10 mg PO DAILY [facility] Last Admin: 01/04/17 09:40 Dose: Not Given Ferrous Sulfate (Feosol) 325 mg PO BID [facility] Last Admin: 01/04/17 17:11 Dose: 325 mg Gabapentin (Neurontin) 300 mg PO BID [facility] Last Admin: 01/04/17 17:11 Dose: 300 mg Hydralazine HCl (Apresoline) 10 mg IVP Q6H PRN PRN Reason: Systolic Blood Pressure Last Admin: 01/04/17 14:12 Dose: 10 mg Hydroxyzine HCl (Atarax) 25 mg PO QID [facility] Last Admin: 01/04/17 17:11 Dose: 25 mg Potassium Chloride 20 meq/ (Sodium Chloride) 1,010 mls @ 100 mls/hr IV .Q10H6M [facility] Last Admin: 01/04/17 13:30 Dose: Not Given Piperacillin Sod/Tazobactam (Sod 2.25 gm/ Sodium Chloride) 100 mls @ 200 mls/ hr IVPB Q8H [facility] Last Admin: 01/04/17 17:14 Dose: 200 mls/hr Insulin Aspart (Novolog) 0 unit SC ACHS [facility] PRN Reason: Protocol Last Admin: 01/04/17 16:39 Dose: Not Given Insulin Aspart (Novolog) 6 unit SC AC [facility] Last Admin: 01/04/17 17:10 Dose: 6 unit Insulin Glargine (Lantus) 14 unit SC HS [facility] Levetiracetam (Keppra) 250 mg PO BID [facility] Last Admin: 01/04/17 17:11 Dose: 250 mg Lisinopril (Zestril) 20 mg PO DAILY [facility] Last Admin: 01/02/17 10:58 Dose: Not Given Nifedipine (Procardia Xl) 30 mg PO DAILY [facility] Last Admin: 01/04/17 09:41 Dose: Not Given Ondansetron HCl (Zofran Inj) 4 mg IVP Q6H PRN PRN Reason: Nausea/Vomiting Last Admin: 01/04/17 17:17 Dose: 4 mg Pantoprazole Sodium (Protonix Inj) 40 mg IVP DAILY [facility] Last Admin: 01/04/17 09:31 Dose: 40 mg - Labs Labs: 01/03/17 13:05 01/04/17 17:05 - Constitutional Appears: Chronically Ill - Head Exam Head Exam: ATRAUMATIC, NORMAL INSPECTION, NORMOCEPHALIC - Eye Exam Eye Exam: EOMI - ENT Exam ENT Exam: Mucous Membranes Dry - Neck Exam Neck Exam: Full ROM, Normal Inspection - Respiratory Exam Respiratory Exam: NORMAL BREATHING PATTERN. absent: Respiratory Distress - Cardiovascular Exam Cardiovascular Exam: +S1, +S2 - GI/Abdominal Exam GI & Abdominal Exam: Tenderness. absent: Guarding, Rigid - Extremities Exam Extremities Exam: Full ROM, Normal Inspection - Neurological Exam Neurological Exam: Alert, Awake, Oriented x3 - Psychiatric Exam Psychiatric exam: Depressed, Flat Affect - Skin Skin Exam: Dry, Intact, Normal Color, Warm Assessment and Plan - Assessment and Plan (Free Text) Assessment: This is a 26 yo female with past medical hx of seizures, type 1 DM, HTN, anemia presenting with abdominal pain and seizures and vomiting 1. type 1 DM -Dr. Mcgill consulted. recs appreciated. -NS 100 -continue gabapentin 300 bid -continue novolog sliding scale -continue novolog 6 units ac -continue lantus 15 units hs 2. seizures -needs f/u outpatient --continue keppra 250 bid -pt is not to get any more ativan 3. hx of anemia -continue feosol bid 4. hx of HTN -continue norvasc 10 -hydralazine 10 iv q 6 prn -lisinopril 20 -nifedipine 30 5. Nausea and vomiting -pt is on flagyl -continue zosyn -also pt has urinary tract infection -pt has been self inducing -continue avasys 6. hx of depression -lexapro 10 -hydroxyzine 25 qid -psych consult. recs appreciated 7. GI/DVT ppx -reglan 10 q 6 -zofran -protonix discussed with Dr. Palafox <Bhavani Palafox V - Last Filed: 01/09/17 17:17> Objective - Vital Signs/Intake and Output Vital Signs (last 24 hours): Temp Pulse Resp BP Pulse Ox 98.2 F 74 20 98/68 L 98 01/08/17 17:05 01/08/17 17:05 01/08/17 17:05 01/08/17 17:05 01/08/17 17:05 - Labs Labs: 01/07/17 11:31 01/07/17 11:31 Attending/Attestation - Attestation I have personally seen and examined this patient.: Yes I have fully participated in the care of the patient.: Yes I have reviewed all pertinent clinical information, including history, physical exam and plan: Yes Notes (Text): This is late computer entry for 01/04/17. Patient seen, examined, and case discussed with day-time resident. Discussed with nursing stafff, patient is refusing blood work and continues to self-induce vomit. Patient taken off [facility] system in the afternoon because she is an in-person 1: 1 room. Discussed with observers, patient is seen self-vomitting on their watch. Discussed with GI, r/o other causes of abdominal pain. Patient has had prior gastric emptying study completed about 2 months ago. Will follow-up. Instructed residents no ativa, no reglan, no bentyl in case GI needs to repeat gastric emptying study. Patient encouraged to eat. Patient is currently on IV fluids to help hydrate and supplement her low potassium secondary to self-induced vomitting. Assessment/Plan 1) Uncontrolled diabetes type 1 * Blood Glucose 651 on admission. Patient given 20 units of insulin. Blood Glucose improved to 168. * Sugars are inconsistent partly due to patient's behavior to drink excessive sugar juices to promote hyperglycemia and overdoing insulin for hypoglycemia- suspecting to induce seizure or get Ativan * Endocrinology (Dr. Mcgill) consulted help appreciated * Per endo, patient start on moderate carb consistent diet * Novolog 6 units AC * Novolog sliding scale * Lantus 15 units subqHS 2) Seizure History of Pseudoseizures * Neuro Consult: Dr. Cruz on board-->helpa appreciated * Wean off of Keppra 750mg IV Q12 changed to Keppra 250mg PO bid * Keppra will not help and may make her worse; uncommon side effect: Keprrea is personality changes and psychosis with irritability-->taper over the next week * Discussed with Dr. Cruz, 01/04, patient has seizure secondary to unbalance to her sugar, but underlying problem is her psychiatric problems * Psych Consult: Dr. Mckeon help appreciated * Depression and Anxiety: Resume lexapro, not zoloft (had SEs); Gabapentin for anxiety; Inderal or buspar later on if need; Support and psychoed, Refer to indiv. psychotherapy at [facility] * Lexapro increased dose, and added Inderal * Conversion d/o (pseudoseizures): * Minimize attention and benzo use, Support and non-judgmental psychoeducation , She needs senior care outpt * Patient believed to be feigning seizures on previous stay 12/24/16-12/29/16. * Lexapro 15mg Po daily * Prolactin: 315.5-->downtrending * Patient had Brain MRI in prior hospitalization-->negative * Elevated prolactin will be affected by anti-neuroleptic, CKD, and uncontrolled sugar * 1:1 sitter to monitor for seeking behavior; self-induced vomitting * Patient will need outpatient 24 hour EEG at capable facility to monitor seizure activity 3) Abdominal pain with vomiting * History of Diabetic Gastoperesis-->will need to follow-up gastric empyting study from [facility] [place] from 2 months ago * Self-induced vomitting observed by nursing staff on various shifts through her hospitalization * PRIOR STUDY ON 12/27/2016 - CT abdomen/pelvis (no contrast because patient refused): diffusely thickened bladder wall. recommendations for UA to rule out cystitis. UA performed on 12/24 and 12/31: No signs of obvious infectious etiology * CT Chest: No acute infiltrates. Mild atelectasis as above. Evaluation for adenopathy is also limited due to a relative paucity of mediastinal fat. There is soft tissue seen within the anterior mediastinum which could represent volume averaging of the pulmonary trunk, ascending thoracic aorta and traversing brachiocephalic vein and possibly some residual thymic tissue. . However adenopathy or other soft tissue mass not completely excluded. Mild cardiomegaly. * Medications: d/c Reglan 10mg PO Q6H PRN for possible repeat gastric emptying study and Zofran 4 mg IV Q6 PRN * Refuses CT abdomen/Pelvis because she does not want to drink PO contrast * EGD (10/2016): esophagitis; gastritis; recommended for PPi and pathology shows inflammation 4) SIRS * Criteria: Positive for elevated WBC, tachycardia,Possible source: UTI * CT Chest: No acute infiltrates. Mild atelectasis as above. Evaluation for adenopathy is also limited due to a relative paucity of mediastinal fat. There is soft tissue seen within the anterior mediastinum which could represent volume averaging of the pulmonary trunk, ascending thoracic aorta and traversing brachiocephalic vein and possibly some residual thymic tissue. . However adenopathy or other soft tissue mass not completely excluded. Mild cardiomegaly. * Zosyn 2.25g IV Q8H * UA (01/02/17): 2+ LE, WBC 265, 3+ glucose, 3+ protein, not clean catch (Sq Epith 16) * Urine culture: coag negative staph-->f/u with ID for abx (patient is on zosyn) 5) HTN (hypertension) * Hydralazine 10 mg Q6 PRN SBP >160 * Nifedipine 30mg PO daily * Lisinopril 20mg PO daily * Norvasc 10mg PO daily * Monitor with vital checks 6) Depressive disorder * Lexapro 10 mg PO QD as stated above 6) Hypokalemia * Exacerbated by patient's vomitting and self-induced vomitting * Replete * check Mg2+ and K+ 7) Prophylactic measure * Started Protonix 40mg IVP daily * Placed on SCDs * Patient risk is 0-->SCDS b/l
--- NOTE | 2017-01-04 19:54 | CP.PCM.CON ---
History of Present Illness - History of Present Illness History of Present Illness: dictated Past Patient History - Infectious Disease Hx of Infectious Diseases: None - Past Medical History & Family History Past Medical History?: Yes - Past Social History Smoking Status: Former Smoker Alcohol: None Drugs: Denies - CARDIAC Hx Hypertension: Yes - PULMONARY Hx Respiratory Disorders: No - NEUROLOGICAL Hx Seizures: Yes - HEENT Hx HEENT Problems: Yes Other/Comment: blurred vision both eyes uses eyeglasses - RENAL Hx Chronic Kidney Disease: No - ENDOCRINE/METABOLIC Hx Endocrine Disorders: Yes Hx Diabetes Mellitus Type 1: Yes - HEMATOLOGICAL/ONCOLOGICAL Hx Anemia: Yes - INTEGUMENTARY Hx Dermatological Problems: No - MUSCULOSKELETAL/RHEUMATOLOGICAL Hx Musculoskeletal Disorders: Yes Hx Falls: Yes - GASTROINTESTINAL Hx Gastrointestinal Disorders: Yes (SEE COMMENT) Other/Comment: gastroparesis - GENITOURINARY/GYNECOLOGICAL Hx Genitourinary Disorders: No - PSYCHIATRIC Hx Anxiety: Yes Hx Depression: Yes Hx Substance Use: No - SURGICAL HISTORY Hx Surgeries: Yes - ANESTHESIA Hx Anesthesia: Yes Hx Anesthesia Reactions: No Hx Malignant Hyperthermia: No Meds Allergies/Adverse Reactions: Allergies Allergy/AdvReac Type Severity Reaction Status Date / Time No Known Allergies Allergy Verified 12/23/16 19:17 - Medications Medications: Current Medications Cyanocobalamin (Vitamin B12 1000 Mcg Tab) 1,000 mcg PO DAILY [facility] Last Admin: 01/04/17 09:41 Dose: Not Given Escitalopram Oxalate (Lexapro) 10 mg PO DAILY [facility] Last Admin: 01/04/17 09:40 Dose: Not Given Ferrous Sulfate (Feosol) 325 mg PO BID [facility] Last Admin: 01/04/17 17:11 Dose: 325 mg Gabapentin (Neurontin) 300 mg PO BID [facility] Last Admin: 01/04/17 17:11 Dose: 300 mg Hydralazine HCl (Apresoline) 10 mg IVP Q6H PRN PRN Reason: Systolic Blood Pressure Last Admin: 01/04/17 14:12 Dose: 10 mg Hydroxyzine HCl (Atarax) 25 mg PO QID [facility] Last Admin: 01/04/17 17:11 Dose: 25 mg Potassium Chloride 20 meq/ (Sodium Chloride) 1,010 mls @ 100 mls/hr IV .Q10H6M [facility] Last Admin: 01/04/17 13:30 Dose: Not Given Piperacillin Sod/Tazobactam (Sod 2.25 gm/ Sodium Chloride) 100 mls @ 200 mls/ hr IVPB Q8H [facility] Last Admin: 01/04/17 17:14 Dose: 200 mls/hr Insulin Aspart (Novolog) 0 unit SC ACHS [facility] PRN Reason: Protocol Last Admin: 01/04/17 16:39 Dose: Not Given Insulin Aspart (Novolog) 6 unit SC AC [facility] Last Admin: 01/04/17 17:10 Dose: 6 unit Insulin Glargine (Lantus) 14 unit SC HS [facility] Levetiracetam (Keppra) 250 mg PO BID [facility] Last Admin: 01/04/17 17:11 Dose: 250 mg Lisinopril (Zestril) 20 mg PO DAILY [facility] Last Admin: 01/02/17 10:58 Dose: Not Given Nifedipine (Procardia Xl) 30 mg PO DAILY [facility] Last Admin: 01/04/17 09:41 Dose: Not Given Ondansetron HCl (Zofran Inj) 4 mg IVP Q6H PRN PRN Reason: Nausea/Vomiting Last Admin: 01/04/17 17:17 Dose: 4 mg Pantoprazole Sodium (Protonix Inj) 40 mg IVP DAILY [facility] Last Admin: 01/04/17 09:31 Dose: 40 mg Results - Vital Signs Recent Vital Signs: Last Vital Signs Temp 98.5 F 01/04/17 16:53 Pulse 118 H 01/04/17 16:53 Resp 20 01/04/17 16:53 BP 183/109 H 01/04/17 16:53 Pulse Ox 97 01/04/17 16:53 - Labs Result Diagrams: 01/03/17 13:05 01/04/17 17:05 Labs: Laboratory Results - last 24 hr 01/03/17 01/04/17 01/04/17 21:02 00:14 06:11 Sodium Potassium Chloride Carbon Dioxide Anion Gap BUN Creatinine Est GFR ( Amer) Est GFR (Non-Af Amer) POC Glucose (mg/dL) 161 H 139 H 145 H Random Glucose Calcium Phosphorus Magnesium Total Bilirubin AST ALT Alkaline Phosphatase Total Protein Albumin Globulin Albumin/Globulin Ratio Amylase Lipase Complement C3 Complement C4 01/04/17 01/04/17 01/04/17 11:27 13:07 16:26 Sodium Potassium Chloride Carbon Dioxide Anion Gap BUN Creatinine Est GFR ( Amer) Est GFR (Non-Af Amer) POC Glucose (mg/dL) 268 H 251 H 193 H Random Glucose Calcium Phosphorus Magnesium Total Bilirubin AST ALT Alkaline Phosphatase Total Protein Albumin Globulin Albumin/Globulin Ratio Amylase Lipase Complement C3 Complement C4 01/04/17 01/04/17 17:05 17:05 Sodium 140 Potassium 3.3 L Chloride 111 H Carbon Dioxide 21 L Anion Gap 11 BUN 21 H Creatinine 1.8 H Est GFR ( Amer) 41 Est GFR (Non-Af Amer) 34 POC Glucose (mg/dL) Random Glucose 187 H Calcium 7.8 L Phosphorus 2.8 Magnesium 2.0 Total Bilirubin 0.4 AST 19 ALT 17 Alkaline Phosphatase 69 Total Protein 5.3 L Albumin 2.6 L Globulin 2.7 Albumin/Globulin Ratio 0.9 L Amylase 58 Lipase 12 L Complement C3 83.0 L Complement C4 23.8
[2017-01-04] MEDS ORDERED: (Lantus) Insulin Glargine, Recombinant SC SCH (22:00)
[2017-01-04] MEDS ORDERED: Dextrose 50% SYRINGE Inj (50 ml) ONE (22:05)
[2017-01-04] MEDS ORDERED: Dextrose 50% SYRINGE Inj (50 ml) IV STA (22:06)
[2017-01-05] MEDS: Piperacillin/Tazobact 2.25 GM in Sodium Chloride 100 ML IVPB SCH ×3 (01:37→18:14)
--- NOTE | 2017-01-05 07:44 | RAD ---
HISTORY: ng tube placement COMPARISON: Portable chest 01/01/2017 prior FINDINGS: LUNGS: History volume appears slightly diminished however there is no infiltrate identified bilaterally. PLEURA: No significant pleural effusion identified, no pneumothorax apparent. CARDIOVASCULAR: Cardiac silhouette appears stable. No pulmonary derangement identified. OSSEOUS STRUCTURES: No significant abnormalities. VISUALIZED UPPER ABDOMEN: Normal. OTHER FINDINGS: Note is made of a nasogastric tube placed with tip terminating in the of junction of the upper and mid mediastinum just to the left of midline. Advancing the tube further into the stomach and following up with repeat radiograph is advised for confirmation. IMPRESSION: Somewhat diminished history effort however there is no infiltrate pleural effusion or pneumothorax however appear Nasonex tube is identified placed with the tip terminating in the upper mid mediastinum. Advancing the catheter into the stomach followed by confirmation radiograph is advised. Discussed with Nurse Heard at 01/05/2017, 7:40 a.m. with written down and read back verification.
--- NOTE | 2017-01-05 07:48 | RAD ---
HISTORY: NGT placement COMPARISON: Portable chest 01/04/2017. FINDINGS: A nasogastric tube is in place with tip terminating in the left upper quadrant abdomen. LUNGS: No active pulmonary disease. PLEURA: No significant pleural effusion identified, no pneumothorax apparent. CARDIOVASCULAR: Normal. OSSEOUS STRUCTURES: No significant abnormalities. VISUALIZED UPPER ABDOMEN: Normal. OTHER FINDINGS: None. IMPRESSION: No acute cardiopulmonary disease. Interval nasogastric tube placement as discussed above. Report
[2017-01-05] MEDS: (Novolog) Insulin Aspart, Recombinant 100 u/ml 10 ml vial SC SCH ×8 (07:57→21:54)
[2017-01-05] MEDS: NIFEdipine 30 mg ER Tab PO SCH (09:09)
[2017-01-05 09:24] LABS: CALCIUM 8.5 mg/dl (8.6-10.4); POTASSIUM 3.5 mmol/L (3.6-5.2)
[2017-01-05 10:02] LABS: MAGNESIUM 2.1 mg/dL (1.6-2.3)
--- NOTE | 2017-01-05 10:58 | CP.PCM.PN ---
Subjective - Date & Time of Evaluation Date of Evaluation: 01/05/17 Time of Evaluation: 10:56 - Subjective Subjective: Patient continues to complain of nausea and vomiting. She also reports having diffuse abdominal pain. She has not had a bowel movement in the past 24 hours. Objective - Vital Signs/Intake and Output Vital Signs (last 24 hours): Temp Pulse Resp BP Pulse Ox 98.6 F 116 H 20 111/77 97 01/05/17 07:05 01/05/17 07:05 01/05/17 07:05 01/05/17 07:35 01/05/17 07:05 - Medications Medications: Current Medications Cyanocobalamin (Vitamin B12 1000 Mcg Tab) 1,000 mcg PO DAILY [facility] Last Admin: 01/05/17 09:09 Dose: 1,000 mcg Escitalopram Oxalate (Lexapro) 10 mg PO DAILY [facility] Last Admin: 01/05/17 09:09 Dose: 10 mg Ferrous Sulfate (Feosol) 325 mg PO BID [facility] Last Admin: 01/05/17 09:09 Dose: 325 mg Gabapentin (Neurontin) 300 mg PO BID [facility] Last Admin: 01/05/17 09:09 Dose: 300 mg Hydralazine HCl (Apresoline) 10 mg IVP Q6H PRN PRN Reason: Systolic Blood Pressure Last Admin: 01/05/17 07:16 Dose: 10 mg Hydroxyzine HCl (Atarax) 25 mg PO QID [facility] Last Admin: 01/05/17 09:09 Dose: 25 mg Potassium Chloride 20 meq/ (Sodium Chloride) 1,010 mls @ 100 mls/hr IV .Q10H6M [facility] Last Admin: 01/05/17 10:35 Dose: 100 mls/hr Piperacillin Sod/Tazobactam (Sod 2.25 gm/ Sodium Chloride) 100 mls @ 200 mls/ hr IVPB Q8H [facility] Last Admin: 01/05/17 09:27 Dose: 200 mls/hr Insulin Aspart (Novolog) 0 unit SC ACHS [facility] PRN Reason: Protocol Last Admin: 01/05/17 07:58 Dose: 4 unit Insulin Aspart (Novolog) 4 unit SC AC [facility] Last Admin: 01/05/17 09:09 Dose: 4 unit Insulin Glargine (Lantus) 8 unit SC HS [facility] Levetiracetam (Keppra) 250 mg PO BID [facility] Last Admin: 01/05/17 09:09 Dose: 250 mg Lisinopril (Zestril) 20 mg PO DAILY [facility] Last Admin: 01/02/17 10:58 Dose: Not Given Nifedipine (Procardia Xl) 30 mg PO DAILY [facility] Last Admin: 01/05/17 09:09 Dose: 30 mg Ondansetron HCl (Zofran Inj) 4 mg IVP Q6H PRN PRN Reason: Nausea/Vomiting Last Admin: 01/05/17 04:47 Dose: 4 mg Pantoprazole Sodium (Protonix Inj) 40 mg IVP DAILY [facility] Last Admin: 01/05/17 09:09 Dose: 40 mg - Labs Labs: 01/03/17 13:05 01/05/17 09:02 - Constitutional Appears: No Acute Distress - Head Exam Head Exam: ATRAUMATIC, NORMOCEPHALIC - Eye Exam Eye Exam: EOMI, PERRL - Neck Exam Neck Exam: absent: Lymphadenopathy, Thyromegaly - Respiratory Exam Respiratory Exam: NORMAL BREATHING PATTERN. absent: Rales, Rhonchi, Wheezes - Cardiovascular Exam Cardiovascular Exam: REGULAR RHYTHM, +S1, +S2. absent: Gallop, Rubs, Murmur - GI/Abdominal Exam GI & Abdominal Exam: Soft, Tenderness, Normal Bowel Sounds. absent: Mass, Organomegaly Additional comments: Diffuse, mild tenderness to palpation - Rectal Exam Rectal Exam: Deferred - Extremities Exam Extremities Exam: absent: Calf Tenderness, Pedal Edema Assessment and Plan (1) Nausea and vomiting Assessment & Plan: Patient continues to complain of nausea and vomiting. Because of the history of reflux esophagitis, I would continue treatment with PPIs indefinitely. We have requested a copy of the report from the Gastric Emptying Scan done recently at [facility] to see if gastroparesis has been documented. Status: Acute
--- NOTE | 2017-01-05 12:12 | CON ---
This is an infectious disease consult requested for positive urine culture report. HISTORY OF PRESENT ILLNESS: This patient is a 26-year-old female. She has history of insulin-dependent diabetes, seizure disorder, hypertension, anxiety, and depression, and it seems like she has been having pseudoseizures, seizures, which the neurologist is looking into. She was admitted to the hospital for evaluation of seizures, and she is at this time vomiting, and it seems like it is all whitish and upper respiratory stuff. She did not want to be examined much, however, she is having some anxiety. She also seems to be having some shaking, but it does not look like seizure at this time. She did not want to be bothered, however, I have taken the history from the chart, has history of diabetes, hypertension, seizure, anxiety, anemia, depression. She does complain of some abdominal pain which is mostly in the epigastric region. She is vomiting. Denies any urinary complaints. Denies any diarrhea. No constipation. She was getting metronidazole at that time, so I would take that off. SURGICAL HISTORY: Not known. SOCIAL HISTORY: She is a former smoker, former alcohol abuse. She is unemployed. ALLERGIES: SHE IS NOT ALLERGIC TO ANY MEDICINE. PHYSICAL EXAMINATION GENERAL: She looks depressed and retching. VITAL SIGNS: I found she is afebrile. Temperature is 98.5, heart rate of 118, blood pressure 183/107 which is reported here, respirations are 20. HEENT: Head is atraumatic. NECK: Supple. Whatever brief exam I could do. HEART: S1, S2 regular. LUNGS: Clear. ABDOMEN: She pointed to her epigastrium. No guarding, no rigidity present. She does have anxiety issues it seems. EXTREMITIES: Have no edema, clubbing, or cyanosis. LABORATORY DATA: We have requested another UA, urine C and S. Reports are noted of the chest CT which was done on 01/01, it does not show concern for pneumonia, and it showed no acute infiltrate, mild atelectasis. There was a soft tissue seen within the anterior mediastinum which would represent volume averaging of the pulmonary trunk, ascending thoracic aorta and transverse brachiocephalic are possible, some residual thymic tissue, however, adenopathy or other soft tissue mass is completely excluded. So at this time, the chest x-ray is negative. The urine culture has coagulase-negative Staph. Throat strep was negative. Her white count was 18 before and now it is 13. Hemoglobin 10.9, hematocrit 33.4, platelet count is 282. Serology was done for hepatitis in which A, B, C is negative. Influenza is negative. Group B Strep is negative. Complement 3 is low, so I would order an YOAN also to rule out any lupus problems. She also has high prolactin level which the neurologist is following at this time, and I would repeat UA, urine C and S. I do not see any blood cultures done, may be she refused, I am not sure, she is refusing so many things, and we will leave her on Zosyn for now as her white count was elevated before and is coming down, but we will discontinue Flagyl in view of nausea and vomiting which maybe psychological issues or gastroparesis. GI is following. Maria Elena Mac MD
--- NOTE | 2017-01-05 12:57 | PCM.PYCHPN ---
Psychiatric Progress Note - Psychiatric Progress Note Patient seen today, length of contact: 16 min Patient Chief Complaint: "I feel bad" Problems Identified/Issues Discussed: The patient is seen, chart reviewed and case discussed with Dr. Palafox and other staff. The patient's condition and behavior remain bad; still inducing vomiting (is observed by staff), having some pseudoseizures, refusing pills and sometimes she is uncooperative. [employer] spoke with her mother which her permission. Supportive psychotherapy with CBT used with a focus on how to resume functioning again as this patient was use to be quite functioning in the past. She refused coming to psych and she denied having any eating disorder issues. She also denied having suicidal or homicidal ideation and no delusions or AVH elicited. She was not resistant to treatment recommendations and approach. The patient has an outpatient therapist or she will follow-up after discharge. Medication Change: Yes (increase lexapro and add inderal for anxiety) Medical Record Reviewed: Yes Mental Status Examination - Cognitive Function Orientation: Person, Place, Situation, Time Memory: Impaired Attention: Poor Concentration: Poor Association: WNL Fund of Knowledge: WNL - Mood Mood: Depressed, Anxious - Affect Affect: Constricted - Speech Speech: Slurred, Soft - Formal Thought Process Formal Thought Process: No Impairment - Suicidal Ideation Suicidal Ideation: No - Homicidal Ideation Homicidal Ideation: No Goal/Treatment Plan - Goal/Treatment Plan Need for Continued Stay: Severe depression anxiety, Severe functional impairment , Other (medical) Progress Toward Problem(s) and Goals/Treatment Plan: Depression and Anxiety: Lexapro now 15 mg but will up to 20 mg In deral added for anxiety after discussing with Dr. Palafox Gabapentin for anxiety Atarax Support and psychoed Refer to indiv. psychotherapy at [facility] Conversion d/o (pseudoseizures): Minimize attention and benzo use Support and non-judgmental psychoeducation She needs nursing home outpt
--- NOTE | 2017-01-05 12:59 | PCM.PYCHPN ---
Psychiatric Progress Note - Psychiatric Progress Note Patient seen today, length of contact: 16 min Patient Chief Complaint: "I am not well" Problems Identified/Issues Discussed: She is seen, chart reviewed, case discussed Still doing self-induced throwing up and sometimes pseudoseizures. How to avoid them and resume being healthy and functional discussed Support given Meds to be increased Ativan-seeking , atarax will be offered. Needs therapy Medication Change: Yes (add atarax QID) Medical Record Reviewed: Yes Mental Status Examination - Cognitive Function Orientation: Person, Place, Situation, Time Memory: Impaired Attention: Poor Concentration: Poor Association: WNL Fund of Knowledge: WNL - Mood Mood: Depressed, Anxious - Affect Affect: Constricted - Speech Speech: Slurred, Soft - Formal Thought Process Formal Thought Process: No Impairment - Suicidal Ideation Suicidal Ideation: No - Homicidal Ideation Homicidal Ideation: No Goal/Treatment Plan - Goal/Treatment Plan Need for Continued Stay: Severe depression anxiety, Severe functional impairment , Other (MEDICAL ) Progress Toward Problem(s) and Goals/Treatment Plan: Depression and Anxiety: lexapro, DOSE TO BE INCREASED SLOWLY to 20 mg/d Gabapentin for anxiety Atarax for anxiety Inderal or buspar later on if needed Support and psychoed Refer to indiv. psychotherapy at [facility] Conversion d/o (pseudoseizures): Minimize attention and benzo use Support and non-judgmental psychoeducation She needs supervisor intermediates outpt May benefit from inpatient psych but is reluctant
--- NOTE | 2017-01-05 13:47 | CP.PCM.PN ---
<Addie Kerns - Last Filed: 01/05/17 20:38> Subjective - Date & Time of Evaluation Date of Evaluation: 01/05/17 Time of Evaluation: 13:47 - Subjective Subjective: Patient seen and examined at bedside. Patient no longer having pseudoseizures when I come into the room. Patient still feeling anxious but looks much less so than the last time I saw her. Patient says she had some broth this morning for breakfast. Patient on AvaSys. Patient still self inducing vomiting. Objective - Vital Signs/Intake and Output Vital Signs (last 24 hours): Temp Pulse Resp BP Pulse Ox 98.6 F 116 H 20 111/77 97 01/05/17 07:05 01/05/17 07:05 01/05/17 07:05 01/05/17 07:35 01/05/17 07:05 - Medications Medications: Current Medications Cyanocobalamin (Vitamin B12 1000 Mcg Tab) 1,000 mcg PO DAILY [facility] Last Admin: 01/05/17 09:09 Dose: 1,000 mcg Escitalopram Oxalate (Lexapro) 15 mg PO DAILY [facility] Ferrous Sulfate (Feosol) 325 mg PO BID [facility] Last Admin: 01/05/17 09:09 Dose: 325 mg Gabapentin (Neurontin) 300 mg PO TID [facility] Last Admin: 01/05/17 13:28 Dose: 300 mg Hydralazine HCl (Apresoline) 10 mg IVP Q6H PRN PRN Reason: Systolic Blood Pressure Last Admin: 01/05/17 07:16 Dose: 10 mg Hydroxyzine HCl (Atarax) 25 mg PO QID [facility] Last Admin: 01/05/17 13:28 Dose: 25 mg Potassium Chloride 20 meq/ (Sodium Chloride) 1,010 mls @ 100 mls/hr IV .Q10H6M [facility] Last Admin: 01/05/17 10:35 Dose: 100 mls/hr Piperacillin Sod/Tazobactam (Sod 2.25 gm/ Sodium Chloride) 100 mls @ 200 mls/ hr IVPB Q8H [facility] Last Admin: 01/05/17 09:27 Dose: 200 mls/hr Insulin Aspart (Novolog) 0 unit SC ACHS [facility] PRN Reason: Protocol Last Admin: 01/05/17 13:00 Dose: Not Given Insulin Aspart (Novolog) 4 unit SC AC [facility] Last Admin: 01/05/17 13:28 Dose: 4 unit Insulin Glargine (Lantus) 8 unit SC HS [facility] Levetiracetam (Keppra) 250 mg PO BID [facility] Last Admin: 01/05/17 09:09 Dose: 250 mg Ondansetron HCl (Zofran Inj) 4 mg IVP Q6H PRN PRN Reason: Nausea/Vomiting Last Admin: 01/05/17 12:03 Dose: 4 mg Pantoprazole Sodium (Protonix Inj) 40 mg IVP DAILY [facility] Last Admin: 01/05/17 09:09 Dose: 40 mg Propranolol HCl (Inderal) 20 mg PO TID [facility] Last Admin: 01/05/17 13:28 Dose: 20 mg - Labs Labs: 01/03/17 13:05 01/05/17 09:02 - Constitutional Appears: Non-toxic, Chronically Ill - Head Exam Head Exam: NORMAL INSPECTION - Eye Exam Eye Exam: EOMI - ENT Exam ENT Exam: Mucous Membranes Moist - Respiratory Exam Respiratory Exam: Clear to Ausculation Bilateral, NORMAL BREATHING PATTERN - Cardiovascular Exam Cardiovascular Exam: Tachycardia, REGULAR RHYTHM, +S1, +S2 - Extremities Exam Additional comments: swelling of hands b/l - Neurological Exam Neurological Exam: Alert, Awake - Psychiatric Exam Psychiatric exam: Anxious, Depressed - Skin Skin Exam: Dry, Intact, Warm Assessment and Plan - Assessment and Plan (Free Text) Assessment: Hyperglycemia with Hx DM Endocrinology. Dr. Mcgill consulted. recs appreciated. * Adjusting insulin according to eating habits novolog 6 units AC lantus 14 units HS ISS cortisol level pending ACTH level pending urine drug screen negative Seizure Neuro Consult: Dr. Cruz * Wean off of Keppra 750mg IV Q12 because seizures seem to be 2/2 hyper/ hypoglycemia Psych Consult: Dr. Mckeon * Depression and Anxiety: * Resume lexapro, not zoloft (had SEs) * Gabapentin for anxiety * Inderal or buspar later on if needed * Refer to indiv. psychotherapy at [facility] * Conversion d/o (pseudoseizures): * Minimize attention and benzo use * Support and non-judgmental psychoeducation * She needs longterm outpt * Patient believed to be feigning seizures on previous stay 12/24/16-12/29/16. Patient was started on Lexapro 5mg on d/c, unknown if pt actually took medications. Pastoral care ordered (01/05) Prolactin: 315.5 Patient will need outpatient 24 hour EEG at capable facility to monitor seizure activity [facility] sys monitoring for malingering behavior Abdominal pain with vomiting PRIOR STUDY ON 12/27/2016 - CT abdomen/pelvis (no contrast because patient refused ): diffusely thickened bladder wall. recommendations for UA to rule out cystitis. UA performed on 12/24 and 12/31: No signs of obvious infectious etiology Procalcitonin 4.7 , repeat pro tran tomorrow * ABG - metabolic acidosis with resp compensation * f/u repeat ABG with lactic acid (01/05) * Flu, Strep Negative * blood culture negative thus far * UA +Leukocyte esterase - Probable UTI * urine culture shows gram positive cocci * CT Chest: No acute infiltrates. Mild atelectasis as above.Evaluation for adenopathy is also limited due to a relative paucity of mediastinal fat. There is soft tissue seen within the anterior mediastinum which could represent volume averaging of the pulmonary trunk, ascending thoracic aorta and traversing brachiocephalic vein and possibly some residual thymic tissue. . However adenopathy or other soft tissue mass not completely excluded. Mild cardiomegaly. * Zosyn 2.25g IV Q8, Flagyl 500mg IV Q8 * [place] [place] US (01/02) but patient refused - Patient now agreeing to do this since no contrast involved (01/05) * Changed IVF to 1/2 NS @100 bc mild acidosis Medications: * Reglan 10mg PO Q6H PRN * Zofran 4 mg IV Q6 PRN SIRS criteria Positive for elevated WBC,tachycardia Possible source: UTI -UA (01/02/17): 2+ LE, WBC 265, 3+ glucose, 3+ protein, - not clean catch (Sq Epith 16) - CXR and CT Chest (01/01/17): No acute infiltrates - Zosyn 2.25g IV Q8H (First dose 01/01/17) - Flagyl 500mg IV Q8H (First dose 01/01/17) HTN (hypertension) Hydralazine 10 mg Q6 PRN SBP >160 Nifedipine 30mg PO daily Lisinopril 20mg PO daily Norvasc 10mg PO daily Monitor with vital checks Depressive disorder Lexapro 15 mg PO QD as stated above Prophylactic measure Started Protonix 40mg IVP daily Placed on SCDs Anti-coag contraindicated due to patient vomiting blood <Bhavani Palafox V - Last Filed: 01/06/17 10:14> Objective - Vital Signs/Intake and Output Vital Signs (last 24 hours): Temp Pulse Resp BP Pulse Ox 98.9 F 89 20 161/101 H 97 01/05/17 23:23 01/05/17 23:23 01/05/17 23:23 01/05/17 23:23 01/05/17 23:23 - Medications Medications: Current Medications Cyanocobalamin (Vitamin B12 1000 Mcg Tab) 1,000 mcg PO DAILY [facility] Last Admin: 01/06/17 09:16 Dose: 1,000 mcg Escitalopram Oxalate (Lexapro) 15 mg PO DAILY [facility] Last Admin: 01/06/17 09:17 Dose: 15 mg Ferrous Sulfate (Feosol) 325 mg PO BID [facility] Last Admin: 01/06/17 09:16 Dose: 325 mg Gabapentin (Neurontin) 300 mg PO TID [facility] Last Admin: 01/06/17 09:16 Dose: 300 mg Hydralazine HCl (Apresoline) 10 mg IVP Q6H PRN PRN Reason: Systolic Blood Pressure Last Admin: 01/06/17 03:50 Dose: 10 mg Hydroxyzine HCl (Atarax) 25 mg PO QID [facility] Last Admin: 01/06/17 09:17 Dose: 25 mg Piperacillin Sod/Tazobactam (Sod 2.25 gm/ Sodium Chloride) 100 mls @ 200 mls/ hr IVPB Q8H [facility] Last Admin: 01/06/17 01:44 Dose: 200 mls/hr Potassium Chloride 20 meq/ (Sodium Chloride) 1,010 mls @ 100 mls/hr IV .Q10H6M [facility] Last Admin: 01/06/17 06:30 Dose: 100 mls/hr Insulin Aspart (Novolog) 0 unit SC ACHS [facility] PRN Reason: Protocol Last Admin: 01/06/17 09:17 Dose: 4 unit Insulin Aspart (Novolog) 4 unit SC AC [facility] Last Admin: 01/06/17 09:18 Dose: 4 unit Insulin Glargine (Lantus) 14 unit SC HS [facility] Last Admin: 09/18/17 21:54 Dose: Not Given Levetiracetam (Keppra) 250 mg PO BID [facility] Last Admin: 01/06/17 09:16 Dose: 250 mg Lisinopril (Zestril) 20 mg PO DAILY [facility] Last Admin: 01/06/17 09:16 Dose: 20 mg Ondansetron HCl (Zofran Inj) 4 mg IVP Q6H PRN PRN Reason: Nausea/Vomiting Last Admin: 01/06/17 09:16 Dose: 4 mg Pantoprazole Sodium (Protonix Inj) 40 mg IVP DAILY [facility] Last Admin: 01/06/17 09:18 Dose: 40 mg Propranolol HCl (Inderal) 20 mg PO TID [facility] Last Admin: 01/06/17 09:16 Dose: 20 mg - Labs Labs: 01/03/17 13:05 01/06/17 07:09 Attending/Attestation - Attestation I have personally seen and examined this patient.: Yes I have fully participated in the care of the patient.: Yes I have reviewed all pertinent clinical information, including history, physical exam and plan: Yes Notes (Text): This is late computer entry for 01/05/17. Patient seen, examined, and case discussed with day-time resident. Patient is off [employer] system since yesterday afternoon because she has an in- person 1:1 room. Patient was placed an NGT tube overnight because she refuses to take her pills; this is morning she pulled it out and was reinserted by night time resident. * Discussing with nursing, Mikaela, multiple times in the morning, patient is pleaing to remove NGT tube with mother and bedside and promises to take her medication. If patient cannot tolerate PO medications, she will need NGT tube. * Discussed case with psych in the morning, patient did not seize with them this morning, patient refuses [facility] which is a voluntary unit, does not believe patient has an eating disorder given patient is self-induced vomitting. Per discussion with psych, patient was a very functional young person had working job, the inciting stressor appears to be from breakup with her former partner, who in 2 weeks following her breakup, and subsequently lost her job in the course of her life stressors. Psychiatry has counselled her extensively and reports will continue to the see the patient. Medications modified by psych including her Lexapro and added on inderal. I have discontinue Procardia in light of this recommendation. * Patient seen in the room. Patient is not vomitting in front of us. Patient is tender in the lower abdomen. No flank tenderess. Patient refuses PO contrast CT abdomen/Pelvis but will allow for the renal US. Per nursing staff, patient is a difficult blood draw because she is swollen. However, given her bizarre behavior would not place a central line on her. Patient's blood pressure is not hypotensive nor requires supervisor intermediates antibiotics. Patient had reported chest pain this morning, attribute from her vomitting. Potassium was low, EDGARDO is negative. Patient instructed again at bedside, that if she continues to promote her vomitting, she will lower her potassium and that can subject her to heart attack which we do not want for her. * Lipase is normal. * Patient is off ativan, reglan, and bentyl in case she needs repeat gastric empyting study since Thursday; awaiting report from [facility] [place]. * Procalcitonin has improved since admission. * Discussed with endocrinology, given patient's behavior which will impact her insulin dosing, and was adjusted. * Patient has provided urine sample to see if UTI is clearing up. * Repeat ABG-->improved to compared on admission Assessment/Plan 1) Uncontrolled diabetes type 1 * Blood Glucose 651 on admission. Patient given 20 units of insulin. Blood Glucose improved to 168. * Sugars are inconsistent partly due to patient's behavior to drink excessive sugar juices to promote hyperglycemia and overdoing insulin for hypoglycemia- suspecting to induce seizure or get Ativan * Endocrinology (Dr. Mcgill) consulted help appreciated * Per endo, patient start on moderate carb consistent diet * Novolog 4 units AC * Novolog sliding scale * Lantus 14 units subqHS 2) Seizure History of Pseudoseizures * Neuro Consult: Dr. Cruz on board-->helpa appreciated * Wean off of Keppra 750mg IV Q12 changed to Keppra 250mg PO bid * Keppra will not help and may make her worse; uncommon side effect: Keprrea is personality changes and psychosis with irritability-->taper over the next week * Discussed with Dr. Cruz, 01/04, patient has seizure secondary to unbalance to her sugar, but underlying problem is her psychiatric problems * Psych Consult: Dr. Mckeon help appreciated * Depression and Anxiety: Resume lexapro, not zoloft (had SEs); Gabapentin for anxiety; Inderal or buspar later on if need; Support and psychoed, Refer to indiv. psychotherapy at [facility] * Lexapro increased dose, and added Inderal * Conversion d/o (pseudoseizures): * Minimize attention and benzo use, Support and non-judgmental psychoeducation , She needs supervisor intermediates outpt * Patient believed to be feigning seizures on previous stay 12/24/16-12/29/16. * Lexapro 15mg Po daily * Prolactin: 315.5-->downtrending * Patient had Brain MRI in prior hospitalization-->negative * Elevated prolactin will be affected by anti-neuroleptic, CKD, and uncontrolled sugar * 1:1 sitter to monitor for seeking behavior; self-induced vomitting * Patient will need outpatient 24 hour EEG at capable facility to monitor seizure activity 3) Abdominal pain with vomiting * History of Diabetic Gastoperesis-->will need to follow-up gastric empyting study from [facility] [place] from 2 months ago * Self-induced vomitting observed by nursing staff on various shifts through her hospitalization * PRIOR STUDY ON 12/27/2016 - CT abdomen/pelvis (no contrast because patient refused): diffusely thickened bladder wall. recommendations for UA to rule out cystitis. UA performed on 12/24 and 12/31: No signs of obvious infectious etiology * CT Chest: No acute infiltrates. Mild atelectasis as above. Evaluation for adenopathy is also limited due to a relative paucity of mediastinal fat. There is soft tissue seen within the anterior mediastinum which could represent volume averaging of the pulmonary trunk, ascending thoracic aorta and traversing brachiocephalic vein and possibly some residual thymic tissue. . However adenopathy or other soft tissue mass not completely excluded. Mild cardiomegaly. * Medications: d/c Reglan 10mg PO Q6H PRN on Thursday for possible repeat gastric emptying study and Zofran 4 mg IV Q6 PRN * Refuses CT abdomen/Pelvis because she does not want to drink PO contrast * EGD (10/2016): esophagitis; gastritis; recommended for PPi and pathology shows inflammation 4) SIRS * Criteria: Positive for elevated WBC, tachycardia,Possible source: UTI * CT Chest: No acute infiltrates. Mild atelectasis as above. Evaluation for adenopathy is also limited due to a relative paucity of mediastinal fat. There is soft tissue seen within the anterior mediastinum which could represent volume averaging of the pulmonary trunk, ascending thoracic aorta and traversing brachiocephalic vein and possibly some residual thymic tissue. . However adenopathy or other soft tissue mass not completely excluded. Mild cardiomegaly. * Zosyn 2.25g IV Q8H * UA (01/02/17): 2+ LE, WBC 265, 3+ glucose, 3+ protein, not clean catch (Sq Epith 16) * UA (01/05/17): 1= LE, WBC: 45 +3 glucose, 5+ RBC; clean catch * Urine culture: coag negative staph-->f/u with ID for abx (patient is on zosyn) 5) HTN (hypertension) * Hydralazine 10 mg Q6 PRN SBP >160 * d/c Nifedipine 30mg PO daily-->started on Inderal 20mg PO TID * Lisinopril 20mg PO daily * Norvasc 10mg PO daily * Monitor with vital checks 6) Depressive disorder * Lexapro 15 mg PO QD as stated above * Needs longterm psychiatric help but patient is refusing transfer to [facility] 6) Hypokalemia * Exacerbated by patient's vomitting and self-induced vomitting * Replete * check Mg2+ and K+ 7) Prophylactic measure * Started Protonix 40mg IVP daily * Placed on SCDs * Patient risk is 0-->SCDS b/l Disposition: Patient currently refusing PO CT abdomen/Pelvis. Patient has been caught multiple times drinking excessive juices and gingerale then self inducing vomiting multiple times. Patient is on IV abx to cover for urinary tract infection. Patient is pending urine culture. Will need to follow for gastric emptying study see if patient has gastroperesis. Psychiatry to continue following the patient.
[2017-01-05 15:07] LABS: RBC URINE 5 /hpf (0-3); URINE BACTERIA RARE (<OCC); URINE BILIRUBIN NEGATIVE (NEGATIVE); URINE BLOOD NEGATIVE (NEGATIVE); URINE COLOR Yellow (YELLOW); URINE GLUCOSE (UA) 3+ mg/dL (Normal); URINE KETONE TRACE mg/dL (NEGATIVE); URINE LEUKOCYTE ESTERASE 1+ Leu/uL (Negative); URINE PROTEIN 3+ mg/dL (NEGATIVE); URINE UROBILINOGEN NORMAL mg/dL (0.2-1.0); WBC URINE 42 /hpf (0-5)
[2017-01-05] MEDS ORDERED: (Novolog) Insulin Aspart, Recombinant 100 u/ml 10 ml vial SC SCH ×2 (16:30→22:14)
[2017-01-05 17:11] LABS: ABG ALLEN TEST POS; ARTERIAL BLOOD HGB O2 SAT 95.7 % (95.0-98.0); CARBOXYHEMOGLOBIN 1.6 % (0.5-1.5); DRAW SITE RRADIAL; HHB 1.5 % (0.0-5.0); METHEMOGLOBIN 1.2 % (0.0-3.0)
[2017-01-05] MEDS: Potassium Chloride 20 MEQ in Sodium Chloride 0.45% 1,000 ML IV SCH (18:07)
--- NOTE | 2017-01-05 18:16 | US ---
PROCEDURE: Ultrasound of the Kidneys HISTORY: prison uncontrolled HTN/DM COMPARISON: None available. TECHNIQUE: Sonogram of the kidneys. FINDINGS: RIGHT KIDNEY: Measures: 12.1 x 4.7 x 5.6 cm. Normal in size, contour and echogenicity. No stone, solid mass lesion or hydronephrosis visualized. LEFT KIDNEY: Measures: 11.3 x 5.8 x 5.7 cm. Normal in size, contour and echogenicity. This suspicious for nonobstructing stone at the left kidney upper pole measures 4 millimeter. Otherwise no solid mass lesion or hydronephrosis visualized. OTHER FINDINGS: None. IMPRESSION: Suspicious for 4 millimeter nonobstructing calculus at the upper pole of the left kidney. No evidence of hydronephrosis.
--- NOTE | 2017-01-05 20:11 | PN ---
ENDO FOLLOWUP NOTE DATE: LOCATION: Room 559. SUBJECTIVE: This is a 26-year-old female with recent uncontrolled type 1 insulin-dependent diabetes, presenting here with diffuse abdominal pain and possible pseudoseizures and is now being followed closely for metabolic management. Her oral intake remains very, very suboptimal and variable at this time and the latest glucose levels have ranged from 175-191 mg/dL. Her latest chemistry showed a BUN of 20, sodium 143, potassium 3.5, chloride 111, CO2 of 17, glucose 274 and creatinine 1.9. So at this time, we will modify once again her basal and bolus insulin regimen and increase the Lantus to 14 units subcutaneous at bedtime daily to start tonight. We will increase the NovoLog to 6 units subcutaneous t.i.d. before meals to start at dinnertime today as ordered. We will titrate incrementally as indicated to optimize metabolic control. We will also continue the IV hydration as there is also evidence of early ketosis as noted. She has had episodic self-induced vomiting episodes, which will contribute to the acidosis also at this time and also because of the lowered insulin dose adjustments given to accommodate her variable and suboptimal oral intake. We will obtain serial chemistries and supplement accordingly as needed. We will follow with you. Greta Mcgill MD
[2017-01-05] MEDS ORDERED: Dextrose 50% SYRINGE Inj (50 ml) IV STA (21:30)
[2017-01-05] MEDS ORDERED: Dextrose 50% SYRINGE Inj (50 ml) ONE (21:34)
--- NOTE | 2017-01-05 21:34 | CP.PCM.PN ---
Subjective - Date & Time of Evaluation Date of Evaluation: 01/05/17 Time of Evaluation: 20:30 - Subjective Subjective: Lethargic, still vomiting per nursing staff, unable to keep down PO intake; Objective - Vital Signs/Intake and Output Vital Signs (last 24 hours): Temp Pulse Resp BP Pulse Ox 98 F 92 H 20 165/103 H 98 01/05/17 15:16 01/05/17 18:00 01/05/17 15:16 01/05/17 15:16 01/05/17 15:16 - Medications Medications: Current Medications Cyanocobalamin (Vitamin B12 1000 Mcg Tab) 1,000 mcg PO DAILY [facility] Last Admin: 01/05/17 09:09 Dose: 1,000 mcg Escitalopram Oxalate (Lexapro) 15 mg PO DAILY [facility] Ferrous Sulfate (Feosol) 325 mg PO BID [facility] Last Admin: 01/05/17 18:08 Dose: 325 mg Gabapentin (Neurontin) 300 mg PO TID [facility] Last Admin: 01/05/17 18:08 Dose: 300 mg Hydralazine HCl (Apresoline) 10 mg IVP Q6H PRN PRN Reason: Systolic Blood Pressure Last Admin: 01/05/17 07:16 Dose: 10 mg Hydroxyzine HCl (Atarax) 25 mg PO QID [facility] Last Admin: 01/05/17 18:08 Dose: 25 mg Piperacillin Sod/Tazobactam (Sod 2.25 gm/ Sodium Chloride) 100 mls @ 200 mls/ hr IVPB Q8H [facility] Last Admin: 01/05/17 18:14 Dose: 200 mls/hr Potassium Chloride 20 meq/ (Sodium Chloride) 1,010 mls @ 100 mls/hr IV .Q10H6M [facility] Last Admin: 01/05/17 18:07 Dose: 100 mls/hr Insulin Aspart (Novolog) 0 unit SC ACHS [facility] PRN Reason: Protocol Last Admin: 01/05/17 17:31 Dose: Not Given Insulin Aspart (Novolog) 6 unit SC AC [facility] Last Admin: 01/05/17 18:08 Dose: 6 unit Insulin Glargine (Lantus) 14 unit SC HS [facility] Levetiracetam (Keppra) 250 mg PO BID [facility] Last Admin: 01/05/17 18:08 Dose: 250 mg Ondansetron HCl (Zofran Inj) 4 mg IVP Q6H PRN PRN Reason: Nausea/Vomiting Last Admin: 01/05/17 12:03 Dose: 4 mg Pantoprazole Sodium (Protonix Inj) 40 mg IVP DAILY [facility] Last Admin: 01/05/17 09:09 Dose: 40 mg Propranolol HCl (Inderal) 20 mg PO TID [facility] Last Admin: 01/05/17 18:38 Dose: 20 mg - Labs Labs: 01/03/17 13:05 01/05/17 09:02 - Constitutional Appears: Non-toxic, Other (Lethargic) - Head Exam Head Exam: NORMAL INSPECTION - Eye Exam Eye Exam: Normal appearance - ENT Exam ENT Exam: Mucous Membranes Moist - Respiratory Exam Respiratory Exam: Clear to Ausculation Bilateral, NORMAL BREATHING PATTERN. absent: Rales, Rhonchi - Cardiovascular Exam Cardiovascular Exam: RRR, +S1, +S2 - GI/Abdominal Exam GI & Abdominal Exam: Soft, Tenderness - Extremities Exam Extremities Exam: Normal Inspection - Neurological Exam Neurological Exam: Alert, Awake - Psychiatric Exam Psychiatric exam: Depressed - Skin Skin Exam: Normal Color, Warm. absent: Cyanosis Assessment and Plan (1) Acute kidney injury Assessment & Plan: Pre-renal etiology, resolving; continue IVF (changed to 1/2NS at 100 cc/hr); Status: Acute (2) Hypokalemia Assessment & Plan: In setting of vomiting; 20 meq/L added to IVF; Status: Acute (3) HTN (hypertension) Assessment & Plan: Uncontrolled but may reflect acute distress from vomiting; will restart lisinopril 20 mg daily; Status: Acute (4) CKD (chronic kidney disease) stage 3, GFR 30-59 ml/min Assessment & Plan: Discussed at length with patient regarding poor renal prognosis and the need control sugars/bp to delay progression to esrd; mildly low C3 of uncertain significance; awaiting random urine protein and creatinine; Status: Acute
[2017-01-05] MEDS: (Lantus) Insulin Glargine, Recombinant SC SCH (21:54)
[2017-01-05] MEDS ORDERED: (Lantus) Insulin Glargine, Recombinant SC SCH (22:00)
[2017-01-05] MEDS ORDERED: (Lantus) Insulin Glargine, Recombinant SC ONE (22:13)
[2017-01-06] MEDS: Piperacillin/Tazobact 2.25 GM in Sodium Chloride 100 ML IVPB SCH ×2 (01:44→11:56)
[2017-01-06] MEDS: Potassium Chloride 20 MEQ in Sodium Chloride 0.45% 1,000 ML IV SCH ×3 (01:54→20:52)
[2017-01-06 07:39] LABS: POTASSIUM 3.9 mmol/L (3.6-5.2)
[2017-01-06 07:42] LABS: ALB/GLOB RATIO 0.9 (1.0-2.1); BILIRUBIN,TOTAL 0.5 mg/dL (0.2-1.3); CALCIUM 8.1 mg/dl (8.6-10.4); TOTAL PROTEIN 4.9 g/dL (6.3-8.3)
[2017-01-06] MEDS: (Novolog) Insulin Aspart, Recombinant 100 u/ml 10 ml vial SC SCH ×7 (09:17→22:43)
--- NOTE | 2017-01-06 12:51 | PCM.PYCHPN ---
Psychiatric Progress Note - Psychiatric Progress Note Patient seen today, length of contact: 16 min Patient Chief Complaint: "I feel bad" Problems Identified/Issues Discussed: The patient is seen, chart reviewed and case discussed She threw up in front of us and this time it was not self-induced. She however admitted that she continues to do so "sometimes" - warned about the risks and how to avoid discussed She is still asking for "a little ativan" but she is now on 3-4 different anxiety meds She will start psychotherapy [facility]ACE Support given Medication Change: Yes Medical Record Reviewed: Yes Mental Status Examination - Cognitive Function Orientation: Person, Place, Situation, Time Memory: Impaired Attention: Poor Concentration: Poor Association: WNL Fund of Knowledge: WNL - Mood Mood: Depressed, Anxious - Affect Affect: Constricted - Speech Speech: Slurred, Soft - Formal Thought Process Formal Thought Process: No Impairment - Suicidal Ideation Suicidal Ideation: No - Homicidal Ideation Homicidal Ideation: No Goal/Treatment Plan - Goal/Treatment Plan Need for Continued Stay: Severe depression anxiety, Severe functional impairment , Other (medical) Progress Toward Problem(s) and Goals/Treatment Plan: Depression and Anxiety: Lexapro is increased 20 mg Inderal added for anxiety after discussing with Dr. Palafox Gabapentin for anxiety Atarax Support and psychoed Refer to indiv. psychotherapy at [facility] Conversion d/o (pseudoseizures): Minimize attention and benzo use Support and non-judgmental psychoeducation She needs prison outpt Cleared for d/c
--- NOTE | 2017-01-06 14:42 | CP.PCM.PN ---
<Merrill Ring - Last Filed: 01/06/17 16:07> Subjective - Date & Time of Evaluation Date of Evaluation: 01/06/17 Time of Evaluation: 14:35 - Subjective Subjective: PGY-[address] Nieves's Nephrology Service: Pt seen and examined at bedside. Patient reports being unable to keep any PO intake down, and admits vomiting in excess of ten times today. She admits pain/ swelling in right arm due to IV infiltration. She denies difficulty urinating, dysuria, diarrhea, chest pain, Objective - Vital Signs/Intake and Output Vital Signs (last 24 hours): Temp Pulse Resp BP Pulse Ox 99 F 94 H 20 157/95 H 95 01/06/17 08:00 01/06/17 08:00 01/06/17 08:00 01/06/17 08:00 01/06/17 08:00 - Medications Medications: Current Medications Cyanocobalamin (Vitamin B12 1000 Mcg Tab) 1,000 mcg PO DAILY [facility] Last Admin: 01/06/17 09:16 Dose: 1,000 mcg Escitalopram Oxalate (Lexapro) 15 mg PO DAILY [facility] Last Admin: 01/06/17 09:17 Dose: 15 mg Ferrous Sulfate (Feosol) 325 mg PO BID [facility] Last Admin: 01/06/17 09:16 Dose: 325 mg Gabapentin (Neurontin) 300 mg PO TID [facility] Last Admin: 01/06/17 14:06 Dose: 300 mg Hydralazine HCl (Apresoline) 10 mg IVP Q6H PRN PRN Reason: Systolic Blood Pressure Last Admin: 01/06/17 03:50 Dose: 10 mg Hydroxyzine HCl (Atarax) 25 mg PO QID [facility] Last Admin: 01/06/17 14:06 Dose: 25 mg Piperacillin Sod/Tazobactam (Sod 2.25 gm/ Sodium Chloride) 100 mls @ 200 mls/ hr IVPB Q8H [facility] Last Admin: 01/06/17 11:56 Dose: Not Given Potassium Chloride 20 meq/ (Sodium Chloride) 1,010 mls @ 100 mls/hr IV .Q10H6M [facility] Last Admin: 01/06/17 06:30 Dose: 100 mls/hr Insulin Aspart (Novolog) 0 unit SC ACHS [facility] PRN Reason: Protocol Last Admin: 01/06/17 11:58 Dose: Not Given Insulin Aspart (Novolog) 4 unit SC AC [facility] Last Admin: 01/06/17 12:57 Dose: 4 unit Insulin Glargine (Lantus) 14 unit SC HS [facility] Last Admin: 01/05/17 21:54 Dose: Not Given Levetiracetam (Keppra) 250 mg PO BID [facility] Last Admin: 01/06/17 09:16 Dose: 250 mg Lisinopril (Zestril) 20 mg PO DAILY [facility] Last Admin: 01/06/17 09:16 Dose: 20 mg Ondansetron HCl (Zofran Inj) 4 mg IVP Q6H PRN PRN Reason: Nausea/Vomiting Last Admin: 01/06/17 09:16 Dose: 4 mg Pantoprazole Sodium (Protonix Inj) 40 mg IVP DAILY [facility] Last Admin: 01/06/17 09:18 Dose: 40 mg Propranolol HCl (Inderal) 20 mg PO TID [facility] Last Admin: 01/06/17 14:06 Dose: 20 mg - Labs Labs: 01/03/17 13:05 01/06/17 07:09 - Additional Findings Additional findings: - Constitutional Appears: Non-toxic, Chronically ill - Head Exam Head Exam: NORMAL INSPECTION - Eye Exam Eye Exam: Normal appearance - ENT Exam ENT Exam: Mucous Membranes Moist - Respiratory Exam Respiratory Exam: Clear to Ausculation Bilateral, NORMAL BREATHING PATTERN. absent: Rales, Rhonchi - Cardiovascular Exam Cardiovascular Exam: RRR, +S1, +S2 - GI/Abdominal Exam GI & Abdominal Exam: Soft, Tenderness - Extremities Exam Extremities Exam: Right arm edematous (non-pitting) through hand from IV infiltration - Neurological Exam Neurological Exam: Alert, Awake - Psychiatric Exam Psychiatric exam: Depressed - Skin Skin Exam: Normal Color, Warm. absent: Cyanosis Assessment and Plan - Assessment and Plan (Free Text) Plan: (1) Acute kidney injury Assessment & Plan: Pre-renal etiology, resolving; continue IVF (NS 100 cc/hr); Cr 1.8 this AM, from 2.4 on admission Status: Acute (2) Hypokalemia Assessment & Plan: Improving; 3.9 on AM labs KCl 20meq in NS @ 100 cc/hr (3) HTN (hypertension) Assessment & Plan: Remains elevated, but improved from admission Continue lisinopril 20 mg daily Propranolol 20mg PO TID started yesterday for anxiety Status: Acute (4) CKD (chronic kidney disease) stage 3, GFR 30-59 ml/min Assessment & Plan: Discussed at length with patient regarding poor renal prognosis and the need control sugars/bp to delay progression to esrd; C3: 83 (low) of uncertain significance, C4: WNL Random urine protein: 1240 Random urine creatinine: 76.5 Status: Acute Discussed with Dr. Ezequiel Ring PGY-1 <Migue Nieves - Last Filed: 01/07/17 09:13> Objective - Vital Signs/Intake and Output Vital Signs (last 24 hours): Temp Pulse Resp BP Pulse Ox 98.1 F 87 20 169/102 H 98 01/07/17 06:04 01/07/17 06:04 01/07/17 06:04 01/07/17 06:04 01/07/17 06:04 Intake and Output: 01/07/17 01/07/17 06:59 18:59 Intake Total 950 Output Total 700 700 Balance -700 250 - Medications Medications: Current Medications Cyanocobalamin (Vitamin B12 1000 Mcg Tab) 1,000 mcg PO DAILY [facility] Last Admin: 01/06/17 09:16 Dose: 1,000 mcg Escitalopram Oxalate (Lexapro) 20 mg PO DAILY [facility] Ferrous Sulfate (Feosol) 325 mg PO BID [facility] Last Admin: 01/06/17 18:50 Dose: 325 mg Gabapentin (Neurontin) 300 mg PO TID [facility] Last Admin: 01/06/17 19:01 Dose: 300 mg Hydralazine HCl (Apresoline) 10 mg IVP Q6H PRN PRN Reason: Systolic Blood Pressure Last Admin: 01/07/17 06:28 Dose: 10 mg Hydroxyzine HCl (Atarax) 25 mg PO QID [facility] Last Admin: 01/06/17 22:44 Dose: Not Given Potassium Chloride 20 meq/ (Sodium Chloride) 1,010 mls @ 100 mls/hr IV .Q10H6M [facility] Last Admin: 01/07/17 04:52 Dose: 100 mls/hr Ciprofloxacin (Cipro 400mg/200ml Dsw) 400 mg in 200 mls @ 133 mls/hr IVPB Q12H [facility] Last Admin: 09/20/17 05:38 Dose: 133 mls/hr Insulin Aspart (Novolog) 0 unit SC ACHS [facility] PRN Reason: Protocol Last Admin: 01/07/17 07:43 Dose: 6 unit Insulin Aspart (Novolog) 4 unit SC AC [facility] Last Admin: 01/07/17 07:42 Dose: 4 unit Insulin Glargine (Lantus) 14 unit SC HS [facility] Last Admin: 01/06/17 22:43 Dose: Not Given Levetiracetam (Keppra) 250 mg PO BID [facility] Last Admin: 01/06/17 19:01 Dose: 250 mg Lisinopril (Zestril) 20 mg PO DAILY [facility] Last Admin: 01/06/17 09:16 Dose: 20 mg Ondansetron HCl (Zofran Inj) 4 mg IVP Q6H PRN PRN Reason: Nausea/Vomiting Last Admin: 01/07/17 07:42 Dose: 4 mg Ondansetron HCl (Zofran Odt) 4 mg PO Q6H PRN PRN Reason: Nausea/Vomiting Last Admin: 01/06/17 18:49 Dose: 4 mg Pantoprazole Sodium (Protonix Inj) 40 mg IVP DAILY [facility] Last Admin: 01/06/17 09:18 Dose: 40 mg Propranolol HCl (Inderal) 20 mg PO TID [facility] Last Admin: 01/06/17 18:49 Dose: 20 mg - Labs Labs: 01/03/17 13:05 01/06/17 07:09 Assessment and Plan (1) Acute kidney injury Status: Acute (2) Hypokalemia Status: Acute (3) HTN (hypertension) Status: Acute (4) CKD (chronic kidney disease) stage 3, GFR 30-59 ml/min Status: Acute Attending/Attestation - Attestation I have personally seen and examined this patient.: Yes I have fully participated in the care of the patient.: Yes I have reviewed all pertinent clinical information, including history, physical exam and plan: Yes Notes (Text): Patient seen and examined; I agree with the resident's note as above with the following additions/edits: Patient with longstanding DM and likely gastroparesis, CKD III, admitted with intractable vomiting; still not able to hold down PO intake (although was able to hold down morning meds); Proteinuric CKD likely due to diabetic nephropathy; need to clarify quantification of proteinuria (random urine protein and creatinine ratio need to be on same sample); Mildly low C3 of unclear significance but agree with looking for SLE; HTN better controlled with addition lisinopril 20 mg daily, continue; can titrate upward as tolerated; Hypokalemia improved; continue 20 meq/L KCl in IVF; Continue 1/2NS at 100 cc/hr for volume repletion in setting of ongoing vomiting ; non-gap metabolic acidosis improving after decreasing NaCl content;
--- NOTE | 2017-01-06 14:48 | CP.PCM.PN ---
<Addie Kerns - Last Filed: 01/06/17 16:58> Subjective - Date & Time of Evaluation Date of Evaluation: 01/06/17 Time of Evaluation: 14:48 - Subjective Subjective: Patient seen and examined at bedside. Patient no longer having pseudoseizures when I come into the room. Patient looks much less anxious than before. Patient says she likes seeing Dr. Mckeon and wants to continue seeing him outpatient. Patient says she is eating soup her mother is bringing. Patient on AvaSys. Patient still self inducing vomiting. Objective - Vital Signs/Intake and Output Vital Signs (last 24 hours): Temp Pulse Resp BP Pulse Ox 99 F 94 H 20 157/95 H 95 01/06/17 08:00 01/06/17 08:00 01/06/17 08:00 01/06/17 08:00 01/06/17 08:00 - Medications Medications: Current Medications Cyanocobalamin (Vitamin B12 1000 Mcg Tab) 1,000 mcg PO DAILY [facility] Last Admin: 01/06/17 09:16 Dose: 1,000 mcg Escitalopram Oxalate (Lexapro) 15 mg PO DAILY [facility] Last Admin: 01/06/17 09:17 Dose: 15 mg Ferrous Sulfate (Feosol) 325 mg PO BID [facility] Last Admin: 01/06/17 09:16 Dose: 325 mg Gabapentin (Neurontin) 300 mg PO TID [facility] Last Admin: 01/06/17 14:06 Dose: 300 mg Hydralazine HCl (Apresoline) 10 mg IVP Q6H PRN PRN Reason: Systolic Blood Pressure Last Admin: 01/06/17 03:50 Dose: 10 mg Hydroxyzine HCl (Atarax) 25 mg PO QID [facility] Last Admin: 01/06/17 14:06 Dose: 25 mg Piperacillin Sod/Tazobactam (Sod 2.25 gm/ Sodium Chloride) 100 mls @ 200 mls/ hr IVPB Q8H [facility] Last Admin: 01/06/17 11:56 Dose: Not Given Potassium Chloride 20 meq/ (Sodium Chloride) 1,010 mls @ 100 mls/hr IV .Q10H6M [facility] Last Admin: 01/06/17 06:30 Dose: 100 mls/hr Insulin Aspart (Novolog) 0 unit SC ACHS [facility] PRN Reason: Protocol Last Admin: 01/06/17 11:58 Dose: Not Given Insulin Aspart (Novolog) 4 unit SC AC [facility] Last Admin: 01/06/17 12:57 Dose: 4 unit Insulin Glargine (Lantus) 14 unit SC HS [facility] Last Admin: 01/05/17 21:54 Dose: Not Given Levetiracetam (Keppra) 250 mg PO BID [facility] Last Admin: 01/06/17 09:16 Dose: 250 mg Lisinopril (Zestril) 20 mg PO DAILY [facility] Last Admin: 01/06/17 09:16 Dose: 20 mg Ondansetron HCl (Zofran Inj) 4 mg IVP Q6H PRN PRN Reason: Nausea/Vomiting Last Admin: 01/06/17 09:16 Dose: 4 mg Pantoprazole Sodium (Protonix Inj) 40 mg IVP DAILY [facility] Last Admin: 01/06/17 09:18 Dose: 40 mg Propranolol HCl (Inderal) 20 mg PO TID [facility] Last Admin: 01/06/17 14:06 Dose: 20 mg - Labs Labs: 01/03/17 13:05 01/06/17 07:09 - Constitutional Appears: Non-toxic, No Acute Distress - Head Exam Head Exam: NORMAL INSPECTION - Eye Exam Eye Exam: EOMI - ENT Exam ENT Exam: Mucous Membranes Moist - Respiratory Exam Respiratory Exam: Clear to Ausculation Bilateral, NORMAL BREATHING PATTERN - Cardiovascular Exam Cardiovascular Exam: Tachycardia, REGULAR RHYTHM, +S1, +S2. absent: Murmur - GI/Abdominal Exam GI & Abdominal Exam: Soft, Tenderness (mild, generalized), Normal Bowel Sounds. absent: Distended - Extremities Exam Extremities Exam: Pedal Edema Additional comments: UE and LE with nonpitting edema b/l - Neurological Exam Neurological Exam: Alert, Awake - Psychiatric Exam Psychiatric exam: Anxious, Depressed - Skin Skin Exam: Dry, Intact, Normal Color, Warm Assessment and Plan - Assessment and Plan (Free Text) Assessment: Hyperglycemia with Hx DM Endocrinology. Dr. Mcgill consulted. recs appreciated. * Adjusting insulin according to eating habits novolog 6 units AC lantus 14 units HS ISS cortisol level pending ACTH level pending urine drug screen negative Seizure Neuro Consult: Dr. Cruz * Wean off of Keppra 750mg IV Q12 because seizures seem to be 2/2 hyper/ hypoglycemia Psych Consult: Dr. Mckeon * Depression and Anxiety: * Resume lexapro, not zoloft (had SEs) * Gabapentin for anxiety * Inderal or buspar later on if needed * Refer to indiv. psychotherapy at [facility] * Conversion d/o (pseudoseizures): * Minimize attention and benzo use * Support and non-judgmental psychoeducation * She needs alf outpt * Patient believed to be feigning seizures on previous stay 12/24/16-12/29/16. Patient was started on Lexapro 5mg on d/c, unknown if pt actually took medications. Pastoral care ordered (01/05) Prolactin: 315.5 Patient will need outpatient 24 hour EEG at capable facility to monitor seizure activity [facility] sys monitoring for malingering behavior Abdominal pain with vomiting PRIOR STUDY ON 12/27/2016 - CT abdomen/pelvis (no contrast because patient refused ): diffusely thickened bladder wall. recommendations for UA to rule out cystitis. UA performed on 12/24 and 12/31: No signs of obvious infectious etiology Procalcitonin 4.7 , repeat pro tran tomorrow * ABG - metabolic acidosis with resp compensation * (01/05) repeat ABG - acidosis resolved, pending lactic acid * Flu, Strep Negative * blood culture negative thus far * UA +Leukocyte esterase - Probable UTI * urine culture shows gram positive cocci * CT Chest: No acute infiltrates. Mild atelectasis as above.Evaluation for adenopathy is also limited due to a relative paucity of mediastinal fat. There is soft tissue seen within the anterior mediastinum which could represent volume averaging of the pulmonary trunk, ascending thoracic aorta and traversing brachiocephalic vein and possibly some residual thymic tissue. . However adenopathy or other soft tissue mass not completely excluded. Mild cardiomegaly. * 01/06 Start Cipro 400 mg Iv and discontinue Zosyn 2.25g IV Q8, Flagyl 500mg IV Q8 because of sensitivity results * [place]phro Consult ([facility] [place] - ordered renal US (01/02) but patient refused - Patient now agreeing to do this since no contrast involved (01/05) and showed 4mm non obstructing stone in the upper pole of left kidney, no hydronephrosis * Changed IVF to 1/2 NS @100 bc mild acidosis * PICC line ordered (01/06) 2/2 no access * Awaiting [facility] records for gastric emptying study Medications: * Reglan 10mg PO Q6H PRN * Zofran 4 mg IV Q6 PRN SIRS criteria Positive for elevated WBC,tachycardia Possible source: UTI -UA (01/02/17): 2+ LE, WBC 265, 3+ glucose, 3+ protein, - not clean catch (Sq Epith 16) - CXR and CT Chest (01/01/17): No acute infiltrates - Zosyn 2.25g IV Q8H (First dose 01/01/17) - Flagyl 500mg IV Q8H (First dose 01/01/17) HTN (hypertension) Hydralazine 10 mg Q6 PRN SBP >160 Nifedipine 30mg PO daily Lisinopril 20mg PO daily Norvasc 10mg PO daily Monitor with vital checks Depressive disorder Lexapro 15 mg PO QD as stated above Patient would like to continue seeing Dr. Mckeon as outpatient after discharge Prophylactic measure Started Protonix 40mg IVP daily Placed on SCDs Anti-coag contraindicated due to patient vomiting blood <Get Coker - Last Filed: 01/06/17 19:53> Objective - Vital Signs/Intake and Output Vital Signs (last 24 hours): Temp Pulse Resp BP Pulse Ox 98 F 76 18 132/79 99 01/06/17 16:00 01/06/17 16:00 01/06/17 16:00 01/06/17 16:00 01/06/17 16:00 - Medications Medications: Current Medications Cyanocobalamin (Vitamin B12 1000 Mcg Tab) 1,000 mcg PO DAILY [facility] Last Admin: 01/06/17 09:16 Dose: 1,000 mcg Escitalopram Oxalate (Lexapro) 20 mg PO DAILY [facility] Ferrous Sulfate (Feosol) 325 mg PO BID [facility] Last Admin: 01/06/17 18:50 Dose: 325 mg Gabapentin (Neurontin) 300 mg PO TID [facility] Last Admin: 01/06/17 19:01 Dose: 300 mg Hydralazine HCl (Apresoline) 10 mg IVP Q6H PRN PRN Reason: Systolic Blood Pressure Last Admin: 01/06/17 03:50 Dose: 10 mg Hydroxyzine HCl (Atarax) 25 mg PO QID [facility] Last Admin: 01/06/17 18:49 Dose: 25 mg Potassium Chloride 20 meq/ (Sodium Chloride) 1,010 mls @ 100 mls/hr IV .Q10H6M [facility] Last Admin: 01/06/17 06:30 Dose: 100 mls/hr Ciprofloxacin (Cipro 400mg/200ml Dsw) 400 mg in 200 mls @ 133 mls/hr IVPB Q12H [facility] Last Admin: 01/06/17 19:04 Dose: 133 mls/hr Insulin Aspart (Novolog) 0 unit SC ACHS [facility] PRN Reason: Protocol Last Admin: 01/06/17 17:02 Dose: Not Given Insulin Aspart (Novolog) 4 unit SC AC [facility] Last Admin: 01/06/17 17:02 Dose: Not Given Insulin Glargine (Lantus) 14 unit SC HS [facility] Last Admin: 01/05/17 21:54 Dose: Not Given Levetiracetam (Keppra) 250 mg PO BID [facility] Last Admin: 01/06/17 19:01 Dose: 250 mg Lisinopril (Zestril) 20 mg PO DAILY [facility] Last Admin: 01/06/17 09:16 Dose: 20 mg Ondansetron HCl (Zofran Inj) 4 mg IVP Q6H PRN PRN Reason: Nausea/Vomiting Last Admin: 01/06/17 09:16 Dose: 4 mg Ondansetron HCl (Zofran Odt) 4 mg PO Q6H PRN PRN Reason: Nausea/Vomiting Last Admin: 01/06/17 18:49 Dose: 4 mg Pantoprazole Sodium (Protonix Inj) 40 mg IVP DAILY [facility] Last Admin: 01/06/17 09:18 Dose: 40 mg Propranolol HCl (Inderal) 20 mg PO TID [facility] Last Admin: 01/06/17 18:49 Dose: 20 mg - Labs Labs: 01/03/17 13:05 01/06/17 07:09 Attending/Attestation - Attestation I have personally seen and examined this patient.: Yes I have fully participated in the care of the patient.: Yes I have reviewed all pertinent clinical information, including history, physical exam and plan: Yes Notes (Text): 01/06/17 19:48 Patient was seen and examined at 5:30 PM 01/06/17 Exam, assessment and plan were gone over with resident. Please also note the following on Assessment and Plan: GABRIELA on CKD Stage IIIB: likely prerenal in the settin gof self induced vomiting leading to volume depletion, Nephrology Dr. Nieves following, 1/2 NS at 100 ml per hour Hypokalemia: also likely secondary to vomiting, this has improved. We will make another attempt to obtain Gastric Emptying Scan from [facility] on and if not available will order another study. Patient agreed to have femoral access placed as she has become hard venous access. This was placed on the Left after my exam by resident under my supervision under U/S guidance. The above was explained to patient and patient's mother who was at bedside at the time of my exam. Get Coker D.O.
[2017-01-06] MEDS ORDERED: Ciprofloxacin 400mg/200ml D5W 400 MG/200 ML BAG IVPB SCH (16:30)
[2017-01-06] MEDS: Ciprofloxacin 400mg/200ml D5W 400 MG/200 ML BAG IVPB SCH ×2 (17:23→19:04)
--- NOTE | 2017-01-06 17:38 | CP.PCM.PN ---
Subjective - Date & Time of Evaluation Date of Evaluation: 01/06/17 Time of Evaluation: 17:35 - Subjective Subjective: Patient reports that she continues to have nausea and vomiting. She lso complains of epigastric burning pain. She has been able to eat some soup today. Again, she has not had a bowel movement today. Objective - Vital Signs/Intake and Output Vital Signs (last 24 hours): Temp Pulse Resp BP Pulse Ox 98 F 76 18 132/79 99 01/06/17 16:00 01/06/17 16:00 01/06/17 16:00 01/06/17 16:00 01/06/17 16:00 - Medications Medications: Current Medications Cyanocobalamin (Vitamin B12 1000 Mcg Tab) 1,000 mcg PO DAILY [facility] Last Admin: 01/06/17 09:16 Dose: 1,000 mcg Escitalopram Oxalate (Lexapro) 20 mg PO DAILY [facility] Ferrous Sulfate (Feosol) 325 mg PO BID [facility] Last Admin: 01/06/17 09:16 Dose: 325 mg Gabapentin (Neurontin) 300 mg PO TID [facility] Last Admin: 01/06/17 14:06 Dose: 300 mg Hydralazine HCl (Apresoline) 10 mg IVP Q6H PRN PRN Reason: Systolic Blood Pressure Last Admin: 01/06/17 03:50 Dose: 10 mg Hydroxyzine HCl (Atarax) 25 mg PO QID [facility] Last Admin: 01/06/17 14:06 Dose: 25 mg Potassium Chloride 20 meq/ (Sodium Chloride) 1,010 mls @ 100 mls/hr IV .Q10H6M [facility] Last Admin: 01/06/17 06:30 Dose: 100 mls/hr Ciprofloxacin (Cipro 400mg/200ml Dsw) 400 mg in 200 mls @ 133 mls/hr IVPB Q12H [facility] Insulin Aspart (Novolog) 0 unit SC ACHS [facility] PRN Reason: Protocol Last Admin: 01/06/17 17:02 Dose: Not Given Insulin Aspart (Novolog) 4 unit SC AC [facility] Last Admin: 01/06/17 17:02 Dose: Not Given Insulin Glargine (Lantus) 14 unit SC HS [facility] Last Admin: 01/05/17 21:54 Dose: Not Given Levetiracetam (Keppra) 250 mg PO BID [facility] Last Admin: 01/06/17 09:16 Dose: 250 mg Lisinopril (Zestril) 20 mg PO DAILY [facility] Last Admin: 01/06/17 09:16 Dose: 20 mg Ondansetron HCl (Zofran Inj) 4 mg IVP Q6H PRN PRN Reason: Nausea/Vomiting Last Admin: 01/06/17 09:16 Dose: 4 mg Pantoprazole Sodium (Protonix Inj) 40 mg IVP DAILY [facility] Last Admin: 01/06/17 09:18 Dose: 40 mg Propranolol HCl (Inderal) 20 mg PO TID [facility] Last Admin: 01/06/17 14:06 Dose: 20 mg - Labs Labs: 01/03/17 13:05 - Constitutional Appears: No Acute Distress - Head Exam Head Exam: ATRAUMATIC, NORMOCEPHALIC - Eye Exam Eye Exam: EOMI, PERRL - Neck Exam Neck Exam: absent: Lymphadenopathy, Thyromegaly - Respiratory Exam Respiratory Exam: NORMAL BREATHING PATTERN. absent: Rales, Rhonchi, Wheezes - Cardiovascular Exam Cardiovascular Exam: REGULAR RHYTHM, +S1, +S2. absent: Gallop, Rubs, Murmur - GI/Abdominal Exam GI & Abdominal Exam: Soft, Normal Bowel Sounds. absent: Tenderness, Organomegaly - Rectal Exam Rectal Exam: Deferred - Extremities Exam Extremities Exam: absent: Calf Tenderness, Pedal Edema Assessment and Plan (1) Nausea and vomiting Assessment & Plan: Patient complains of persistent nausea and vomiting. We are still waiting for a copy of the report of the Gastric Emptying study from several months ago. Consider repeating the study here if the report cannot be located. Status: Acute
--- NOTE | 2017-01-06 17:40 | CP.PCM.CON ---
<Amee Toscano - Last Filed: 01/06/17 20:48> History of Present Illness - History of Present Illness History of Present Illness: General Surgery Dr. Valles 26 y/o F w/ PMHx of DM1, HTN, seizures, anxiety, and depression who presented to the ED 6 days ago w/ intractable vomiting. Surgery was consulted for possible CVC placement 2/2 poor IV access. Patient states she is currently tolerating some PO intake (soups) and has had a PICC line in the past. Pt admits to N/V solid food. Pt denies F/V, CP, SOB, D/C. PMH: DM1, HTN, seizures, anxiety, depression Meds: reviewed in chart NKDA PSHx: denies SHx: pt denies tobacco, EtOH, drug use FHx: noncontributory Review of Systems - Review of Systems All systems: reviewed and no additional remarkable complaints except (see HPI) Past Patient History - Infectious Disease Hx of Infectious Diseases: None - Past Medical History & Family History Past Medical History?: Yes - Past Social History Smoking Status: Former Smoker Alcohol: None Drugs: Denies - CARDIAC Hx Hypertension: Yes - PULMONARY Hx Respiratory Disorders: No - NEUROLOGICAL Hx Seizures: Yes - HEENT Hx HEENT Problems: Yes Other/Comment: blurred vision both eyes uses eyeglasses - RENAL Hx Chronic Kidney Disease: No - ENDOCRINE/METABOLIC Hx Endocrine Disorders: Yes Hx Diabetes Mellitus Type 1: Yes - HEMATOLOGICAL/ONCOLOGICAL Hx Anemia: Yes - INTEGUMENTARY Hx Dermatological Problems: No - MUSCULOSKELETAL/RHEUMATOLOGICAL Hx Musculoskeletal Disorders: Yes Hx Falls: Yes - GASTROINTESTINAL Hx Gastrointestinal Disorders: Yes (SEE COMMENT) Other/Comment: gastroparesis - GENITOURINARY/GYNECOLOGICAL Hx Genitourinary Disorders: No - PSYCHIATRIC Hx Anxiety: Yes Hx Depression: Yes Hx Substance Use: No - SURGICAL HISTORY Hx Surgeries: Yes - ANESTHESIA Hx Anesthesia: Yes Hx Anesthesia Reactions: No Hx Malignant Hyperthermia: No Meds Allergies/Adverse Reactions: Allergies Allergy/AdvReac Type Severity Reaction Status Date / Time No Known Allergies Allergy Verified 12/23/16 19:17 - Medications Medications: Current Medications Cyanocobalamin (Vitamin B12 1000 Mcg Tab) 1,000 mcg PO DAILY [facility] Last Admin: 01/06/17 09:16 Dose: 1,000 mcg Escitalopram Oxalate (Lexapro) 20 mg PO DAILY [facility] Ferrous Sulfate (Feosol) 325 mg PO BID [facility] Last Admin: 01/06/17 09:16 Dose: 325 mg Gabapentin (Neurontin) 300 mg PO TID [facility] Last Admin: 01/06/17 14:06 Dose: 300 mg Hydralazine HCl (Apresoline) 10 mg IVP Q6H PRN PRN Reason: Systolic Blood Pressure Last Admin: 01/06/17 03:50 Dose: 10 mg Hydroxyzine HCl (Atarax) 25 mg PO QID [facility] Last Admin: 01/06/17 14:06 Dose: 25 mg Potassium Chloride 20 meq/ (Sodium Chloride) 1,010 mls @ 100 mls/hr IV .Q10H6M [facility] Last Admin: 01/06/17 06:30 Dose: 100 mls/hr Ciprofloxacin (Cipro 400mg/200ml Dsw) 400 mg in 200 mls @ 133 mls/hr IVPB Q12H [facility] Insulin Aspart (Novolog) 0 unit SC ACHS [facility] PRN Reason: Protocol Last Admin: 01/06/17 17:02 Dose: Not Given Insulin Aspart (Novolog) 4 unit SC AC [facility] Last Admin: 01/06/17 17:02 Dose: Not Given Insulin Glargine (Lantus) 14 unit SC HS [facility] Last Admin: 01/05/17 21:54 Dose: Not Given Levetiracetam (Keppra) 250 mg PO BID [facility] Last Admin: 01/06/17 09:16 Dose: 250 mg Lisinopril (Zestril) 20 mg PO DAILY [facility] Last Admin: 01/06/17 09:16 Dose: 20 mg Ondansetron HCl (Zofran Inj) 4 mg IVP Q6H PRN PRN Reason: Nausea/Vomiting Last Admin: 01/06/17 09:16 Dose: 4 mg Pantoprazole Sodium (Protonix Inj) 40 mg IVP DAILY [facility] Last Admin: 01/06/17 09:18 Dose: 40 mg Propranolol HCl (Inderal) 20 mg PO TID [facility] Last Admin: 01/06/17 14:06 Dose: 20 mg Physical Exam - Constitutional Appears: Non-toxic, No Acute Distress - Head Exam Head Exam: NORMAL INSPECTION - Eye Exam Eye Exam: Normal appearance - ENT Exam ENT Exam: Mucous Membranes Moist - Respiratory Exam Respiratory Exam: NORMAL BREATHING PATTERN. absent: Accessory Muscle Use, Respiratory Distress - Cardiovascular Exam Cardiovascular Exam: absent: Bradycardia, Tachycardia - GI/Abdominal Exam GI & Abdominal Exam: Soft. absent: Distended, Guarding, Rebound, Tenderness - Extremities Exam Extremities exam: Positive for: normal inspection. Negative for: pedal edema - Neurological Exam Neurological exam: Alert, Oriented x3 - Psychiatric Exam Psychiatric exam: Normal Affect, Normal Mood - Skin Skin Exam: Dry, Intact, Normal Color, Warm Results - Vital Signs Recent Vital Signs: Last Vital Signs Temp 98 F 01/06/17 16:00 Pulse 76 01/06/17 16:00 Resp 18 01/06/17 16:00 BP 132/79 01/06/17 16:00 Pulse Ox 99 01/06/17 16:00 - Labs Result Diagrams: 01/03/17 13:05 01/06/17 07:09 Labs: Laboratory Results - last 24 hr 01/03/17 01/05/17 01/05/17 13:05 21:18 22:11 Sodium Potassium Chloride Carbon Dioxide Anion Gap BUN Creatinine Est GFR ( Amer) Est GFR (Non-Af Amer) POC Glucose (mg/dL) 49 L 190 H Random Glucose Calcium Total Bilirubin AST ALT Alkaline Phosphatase Total Protein Albumin Globulin Albumin/Globulin Ratio ACTH 19 Ur Random Creatinine U Random Total Protein Urine Microalbumin 01/05/17 01/05/17 01/06/17 23:30 23:30 02:29 Sodium Potassium Chloride Carbon Dioxide Anion Gap BUN Creatinine Est GFR ( Amer) Est GFR (Non-Af Amer) POC Glucose (mg/dL) 320 H Random Glucose Calcium Total Bilirubin AST ALT Alkaline Phosphatase Total Protein Albumin Globulin Albumin/Globulin Ratio ACTH Ur Random Creatinine 76.5 U Random Total Protein Urine Microalbumin > 950.0 H 01/06/17 01/06/17 01/06/17 05:43 06:33 07:09 Sodium 138 Potassium 3.9 Chloride 109 H Carbon Dioxide 21 L Anion Gap 12 BUN 16 Creatinine 1.8 H Est GFR ( Amer) 41 Est GFR (Non-Af Amer) 34 POC Glucose (mg/dL) 313 H Random Glucose 289 H Calcium 8.1 L Total Bilirubin 0.5 AST 23 ALT 21 Alkaline Phosphatase 62 Total Protein 4.9 L Albumin 2.3 L Globulin 2.6 Albumin/Globulin Ratio 0.9 L ACTH Ur Random Creatinine U Random Total Protein 1240.0 H Urine Microalbumin 09/19/17 09/19/17 11:55 16:46 Sodium Potassium Chloride Carbon Dioxide Anion Gap BUN Creatinine Est GFR ( Amer) Est GFR (Non-Af Amer) POC Glucose (mg/dL) 257 H 122 H Random Glucose Calcium Total Bilirubin AST ALT Alkaline Phosphatase Total Protein Albumin Globulin Albumin/Globulin Ratio ACTH Ur Random Creatinine U Random Total Protein Urine Microalbumin Assessment & Plan - Assessment and Plan (Free Text) Assessment: 26 y/o F w/ poor IV access and poor PO tolerance - retry IV access under ultrasound guidance - PICC consult - Femoral CVC placement if unable to obtain alternate access. - cont medical management Pt discussed w/ Dr. Hai Toscano DO PGY2 <Senthil Valles B - Last Filed: 01/07/17 12:38> Meds - Medications Medications: Current Medications Cyanocobalamin (Vitamin B12 1000 Mcg Tab) 1,000 mcg PO DAILY [facility] Last Admin: 01/07/17 09:46 Dose: 1,000 mcg Escitalopram Oxalate (Lexapro) 20 mg PO DAILY [facility] Last Admin: 01/07/17 09:46 Dose: 20 mg Ferrous Sulfate (Feosol) 325 mg PO BID [facility] Last Admin: 01/07/17 09:45 Dose: 325 mg Gabapentin (Neurontin) 300 mg PO TID [facility] Last Admin: 01/07/17 09:45 Dose: 300 mg Hydralazine HCl (Apresoline) 10 mg IVP Q6H PRN PRN Reason: Systolic Blood Pressure Last Admin: 01/07/17 06:28 Dose: 10 mg Hydroxyzine HCl (Atarax) 25 mg PO QID [facility] Last Admin: 01/07/17 09:46 Dose: 25 mg Potassium Chloride 20 meq/ (Sodium Chloride) 1,010 mls @ 100 mls/hr IV .Q10H6M [facility] Last Admin: 01/07/17 04:52 Dose: 100 mls/hr Ciprofloxacin (Cipro 400mg/200ml Dsw) 400 mg in 200 mls @ 133 mls/hr IVPB Q12H [facility] Last Admin: 01/07/17 05:38 Dose: 133 mls/hr Insulin Aspart (Novolog) 0 unit SC ACHS [facility] PRN Reason: Protocol Last Admin: 01/07/17 07:43 Dose: 6 unit Insulin Aspart (Novolog) 4 unit SC AC [facility] Last Admin: 01/07/17 07:42 Dose: 4 unit Insulin Glargine (Lantus) 14 unit SC HS [facility] Last Admin: 01/06/17 22:43 Dose: Not Given Levetiracetam (Keppra) 250 mg PO BID [facility] Last Admin: 01/07/17 09:45 Dose: 250 mg Lisinopril (Zestril) 20 mg PO DAILY [facility] Last Admin: 01/07/17 09:45 Dose: 20 mg Ondansetron HCl (Zofran Inj) 4 mg IVP Q6H PRN PRN Reason: Nausea/Vomiting Last Admin: 01/07/17 07:42 Dose: 4 mg Ondansetron HCl (Zofran Odt) 4 mg PO Q6H PRN PRN Reason: Nausea/Vomiting Last Admin: 01/06/17 18:49 Dose: 4 mg Pantoprazole Sodium (Protonix Inj) 40 mg IVP DAILY [facility] Last Admin: 01/07/17 09:45 Dose: 40 mg Propranolol HCl (Inderal) 20 mg PO TID [facility] Last Admin: 01/07/17 09:46 Dose: 20 mg Results - Vital Signs Recent Vital Signs: Last Vital Signs Temp 98.1 F 01/07/17 06:04 Pulse 87 01/07/17 08:00 Resp 20 01/07/17 06:04 BP 169/102 H 01/07/17 06:04 Pulse Ox 98 01/07/17 06:04 - Labs Result Diagrams: 01/07/17 11:31 01/07/17 11:31 Labs: Laboratory Results - last 24 hr 01/03/17 01/06/17 01/06/17 10:16 16:46 21:52 WBC RBC Hgb Hct MCV MCH MCHC RDW Plt Count MPV Neut % (Auto) Lymph % (Auto) Foard % (Auto) Eos % (Auto) Baso % (Auto) Neut # Lymph # Foard # Eos # Baso # Sodium Potassium Chloride Carbon Dioxide Anion Gap BUN Creatinine Est GFR ( Amer) Est GFR (Non-Af Amer) POC Glucose (mg/dL) 122 H 210 H Random Glucose Calcium Phosphorus Magnesium Total Bilirubin AST ALT Alkaline Phosphatase Total Protein Albumin Globulin Albumin/Globulin Ratio Urine Chloride 144 01/07/17 01/07/17 01/07/17 06:11 07:38 11:31 WBC 8.4 RBC 3.91 Hgb 10.8 L Hct 32.5 L MCV 83.3 MCH 27.6 MCHC 33.2 RDW 14.6 H Plt Count 255 MPV 9.7 Neut % (Auto) 77.3 H Lymph % (Auto) 17.1 L Foard % (Auto) 5.2 Eos % (Auto) 0.1 Baso % (Auto) 0.3 Neut # 6.5 Lymph # 1.4 Foard # 0.4 Eos # 0.0 Baso # 0.0 Sodium Potassium Chloride Carbon Dioxide Anion Gap BUN Creatinine Est GFR ( Amer) Est GFR (Non-Af Amer) POC Glucose (mg/dL) 351 H 426 H* Random Glucose Calcium Phosphorus Magnesium Total Bilirubin AST ALT Alkaline Phosphatase Total Protein Albumin Globulin Albumin/Globulin Ratio Urine Chloride 01/07/17 11:31 WBC RBC Hgb Hct MCV MCH MCHC RDW Plt Count MPV Neut % (Auto) Lymph % (Auto) [place]oard % (Auto) Eos % (Auto) Baso % (Auto) Neut # Lymph # Foard # Eos # Baso # Sodium 132 Potassium 3.6 Chloride 103 Carbon Dioxide 21 L Anion Gap 12 BUN 22 H Creatinine 1.9 H Est GFR ( Amer) 38 Est GFR (Non-Af Amer) 32 POC Glucose (mg/dL) Random Glucose 234 H Calcium 7.6 L Phosphorus 3.8 Magnesium 1.8 Total Bilirubin 0.4 AST 26 ALT 28 Alkaline Phosphatase 66 Total Protein 4.7 L Albumin 2.2 L Globulin 2.5 Albumin/Globulin Ratio 0.9 L Urine Chloride Attending/Attestation - Attestation I have personally seen and examined this patient.: Yes I have fully participated in the care of the patient.: Yes I have reviewed all pertinent clinical information: Yes Notes (Text): 01/07/17 12:36 Pt was seen and examined at bedside Pt with Uncontrolled DM with Intractable vomiting. IV access was obtained PICC Line today No General surgical intervention required. Plan d.w pt in detail Risk and benefit explained in detail.
--- NOTE | 2017-01-06 22:03 | CP.PCM.PN ---
Subjective - Date & Time of Evaluation Date of Evaluation: 01/06/17 Time of Evaluation: 05:00 - Subjective Subjective: dictated Objective - Vital Signs/Intake and Output Vital Signs (last 24 hours): Temp Pulse Resp BP Pulse Ox 98 F 76 18 132/79 99 01/06/17 16:00 01/06/17 16:00 01/06/17 16:00 01/06/17 16:00 01/06/17 16:00 - Medications Medications: Current Medications Cyanocobalamin (Vitamin B12 1000 Mcg Tab) 1,000 mcg PO DAILY [facility] Last Admin: 01/06/17 09:16 Dose: 1,000 mcg Escitalopram Oxalate (Lexapro) 20 mg PO DAILY [facility] Ferrous Sulfate (Feosol) 325 mg PO BID [facility] Last Admin: 01/06/17 18:50 Dose: 325 mg Gabapentin (Neurontin) 300 mg PO TID [facility] Last Admin: 01/06/17 19:01 Dose: 300 mg Hydralazine HCl (Apresoline) 10 mg IVP Q6H PRN PRN Reason: Systolic Blood Pressure Last Admin: 01/06/17 03:50 Dose: 10 mg Hydroxyzine HCl (Atarax) 25 mg PO QID [facility] Last Admin: 01/06/17 18:49 Dose: 25 mg Potassium Chloride 20 meq/ (Sodium Chloride) 1,010 mls @ 100 mls/hr IV .Q10H6M [facility] Last Admin: 01/06/17 20:52 Dose: Not Given Ciprofloxacin (Cipro 400mg/200ml Dsw) 400 mg in 200 mls @ 133 mls/hr IVPB Q12H [facility] Last Admin: 01/06/17 19:04 Dose: 133 mls/hr Insulin Aspart (Novolog) 0 unit SC ACHS [facility] PRN Reason: Protocol Last Admin: 01/06/17 17:02 Dose: Not Given Insulin Aspart (Novolog) 4 unit SC AC [facility] Last Admin: 01/06/17 17:02 Dose: Not Given Insulin Glargine (Lantus) 14 unit SC HS [facility] Last Admin: 01/05/17 21:54 Dose: Not Given Levetiracetam (Keppra) 250 mg PO BID [facility] Last Admin: 01/06/17 19:01 Dose: 250 mg Lisinopril (Zestril) 20 mg PO DAILY [facility] Last Admin: 01/06/17 09:16 Dose: 20 mg Ondansetron HCl (Zofran Inj) 4 mg IVP Q6H PRN PRN Reason: Nausea/Vomiting Last Admin: 01/06/17 09:16 Dose: 4 mg Ondansetron HCl (Zofran Odt) 4 mg PO Q6H PRN PRN Reason: Nausea/Vomiting Last Admin: 01/06/17 18:49 Dose: 4 mg Pantoprazole Sodium (Protonix Inj) 40 mg IVP DAILY [facility] Last Admin: 01/06/17 09:18 Dose: 40 mg Propranolol HCl (Inderal) 20 mg PO TID [facility] Last Admin: 01/06/17 18:49 Dose: 20 mg - Labs Labs: 01/03/17 13:05 01/06/17 07:09
[2017-01-06] MEDS: (Lantus) Insulin Glargine, Recombinant SC SCH (22:43)
--- NOTE | 2017-01-06 22:44 | PN ---
INFECTIOUS DISEASE FOLLOWUP DATE: SUBJECTIVE: The patient was seen today. She complains of abdominal pain and continues to have nausea and vomiting. She also complains of epigastric pain. She ran out of IV lines and she says they are going to put a med line. I find she is on Zosyn. She does not have urinary problems. No other abdominal pain. No pneumonia and she has been afebrile. I do not see the need for having Zosyn, so I would at this time take that off so that this does not become a reason to put a line. PHYSICAL EXAMINATION: VITAL SIGNS: T-max is 98, pulse 76, blood pressure 132/79, respirations are 18. GENERAL: She is awake and she has issues with vomiting. HEENT: Head is atraumatic and normocephalic. NECK: Supple. LUNGS: Clear. No crackles or rales present. HEART: S1 and S2 is regular. ABDOMEN: She complains of epigastric pain, but there is no tenderness. No guarding. No rigidity present. EXTREMITIES: Have no edema. LABORATORY DATA: Last white count was on 12/31/2016, which is negative. She also had renal ultrasound, which showed suspicious for non-obstructing stone of the left upper kidney; otherwise, no solid mass or hydronephrosis visualized. No evidence of hydronephrosis. She had a chest x-ray on 01/05/2017. X-rays negative at this time. I will discontinue the antibiotics and we will follow if needed. Maria Elena Mac MD
[2017-01-07] MEDS: Potassium Chloride 20 MEQ in Sodium Chloride 0.45% 1,000 ML IV SCH ×2 (04:52→16:35)
[2017-01-07] MEDS: Ciprofloxacin 400mg/200ml D5W 400 MG/200 ML BAG IVPB SCH ×2 (05:38→17:26)
[2017-01-07 06:05] VITALS: RESP 20
--- NOTE | 2017-01-07 07:22 | CP.PCM.PN ---
<Addie Kerns - Last Filed: 01/07/17 19:28> Subjective - Date & Time of Evaluation Date of Evaluation: 01/07/17 Time of Evaluation: 07:22 - Subjective Subjective: Patient seen and examined at bedside. Patient was sleeping in bed. Patient has no new complaints at this time. Patient says she is still vomiting and does not want to take her pills because she will not keep them down. Patient is less anxious today than usual. Objective - Vital Signs/Intake and Output Vital Signs (last 24 hours): Temp Pulse Resp BP Pulse Ox 98.1 F 87 20 169/102 H 98 01/07/17 06:04 01/07/17 06:04 01/07/17 06:04 01/07/17 06:04 01/07/17 06:04 Intake and Output: 01/07/17 01/07/17 06:59 18:59 Output Total 700 Balance -700 - Medications Medications: Current Medications Cyanocobalamin (Vitamin B12 1000 Mcg Tab) 1,000 mcg PO DAILY [facility] Last Admin: 01/06/17 09:16 Dose: 1,000 mcg Escitalopram Oxalate (Lexapro) 20 mg PO DAILY [facility] Ferrous Sulfate (Feosol) 325 mg PO BID [facility] Last Admin: 01/06/17 18:50 Dose: 325 mg Gabapentin (Neurontin) 300 mg PO TID [facility] Last Admin: 01/06/17 19:01 Dose: 300 mg Hydralazine HCl (Apresoline) 10 mg IVP Q6H PRN PRN Reason: Systolic Blood Pressure Last Admin: 01/07/17 06:28 Dose: 10 mg Hydroxyzine HCl (Atarax) 25 mg PO QID [facility] Last Admin: 01/06/17 22:44 Dose: Not Given Potassium Chloride 20 meq/ (Sodium Chloride) 1,010 mls @ 100 mls/hr IV .Q10H6M [facility] Last Admin: 01/07/17 04:52 Dose: 100 mls/hr Ciprofloxacin (Cipro 400mg/200ml Dsw) 400 mg in 200 mls @ 133 mls/hr IVPB Q12H [facility] Last Admin: 01/07/17 05:38 Dose: 133 mls/hr Insulin Aspart (Novolog) 0 unit SC ACHS [facility] PRN Reason: Protocol Last Admin: 01/06/17 22:43 Dose: Not Given Insulin Aspart (Novolog) 4 unit SC AC [facility] Last Admin: 01/06/17 17:02 Dose: Not Given Insulin Glargine (Lantus) 14 unit SC HS [facility] Last Admin: 01/06/17 22:43 Dose: Not Given Levetiracetam (Keppra) 250 mg PO BID [facility] Last Admin: 01/06/17 19:01 Dose: 250 mg Lisinopril (Zestril) 20 mg PO DAILY [facility] Last Admin: 01/06/17 09:16 Dose: 20 mg Ondansetron HCl (Zofran Inj) 4 mg IVP Q6H PRN PRN Reason: Nausea/Vomiting Last Admin: 01/06/17 22:58 Dose: 4 mg Ondansetron HCl (Zofran Odt) 4 mg PO Q6H PRN PRN Reason: Nausea/Vomiting Last Admin: 01/06/17 18:49 Dose: 4 mg Pantoprazole Sodium (Protonix Inj) 40 mg IVP DAILY [facility] Last Admin: 01/06/17 09:18 Dose: 40 mg Propranolol HCl (Inderal) 20 mg PO TID [facility] Last Admin: 01/06/17 18:49 Dose: 20 mg - Labs Labs: 01/03/17 13:05 01/06/17 07:09 - Constitutional Appears: Non-toxic, No Acute Distress - Head Exam Head Exam: NORMAL INSPECTION - Eye Exam Eye Exam: EOMI - ENT Exam ENT Exam: Mucous Membranes Moist - Respiratory Exam Respiratory Exam: Clear to Ausculation Bilateral, NORMAL BREATHING PATTERN - Cardiovascular Exam Cardiovascular Exam: REGULAR RHYTHM, +S1, +S2. absent: Bradycardia, Tachycardia , Murmur - GI/Abdominal Exam GI & Abdominal Exam: Soft, Normal Bowel Sounds. absent: Tenderness - Extremities Exam Extremities Exam: absent: Tenderness Additional comments: UE and LE with nonpitting edema b/l - Neurological Exam Neurological Exam: Alert, Awake - Psychiatric Exam Psychiatric exam: Depressed - Skin Skin Exam: Dry, Intact, Normal Color, Warm Assessment and Plan - Assessment and Plan (Free Text) Assessment: Hyperglycemia with Hx DM Endocrinology. Dr. Mcgill consulted. recs appreciated. * Adjusting insulin according to eating habits novolog 6 units AC lantus 14 units HS ISS cortisol level 39 (high) ACTH level 19 urine drug screen negative Seizure Neuro Consult: Dr. Cruz * Wean off of Keppra 750mg IV Q12 because seizures seem to be 2/2 hyper/ hypoglycemia Psych Consult: Dr. Mckeon * Depression and Anxiety: * Resume lexapro, not zoloft (had SEs) * Gabapentin for anxiety * Inderal or buspar later on if needed * Refer to indiv. psychotherapy at [facility] * Conversion d/o (pseudoseizures): * Minimize attention and benzo use * Support and non-judgmental psychoeducation * She needs alf outpt * Patient believed to be feigning seizures on previous stay 12/24/16-12/29/16. Patient was started on Lexapro 5mg on d/c, unknown if pt actually took medications. Pastoral care ordered (01/05) Prolactin: 315.5 Patient will need outpatient 24 hour EEG at capable facility to monitor seizure activity [facility] sys monitoring for malingering behavior Abdominal pain with vomiting PRIOR STUDY ON 12/27/2016 - CT abdomen/pelvis (no contrast because patient refused ): diffusely thickened bladder wall. recommendations for UA to rule out cystitis. UA performed on 12/24 and 12/31: No signs of obvious infectious etiology Procalcitonin 4.7 , repeat pro tran tomorrow * ABG - metabolic acidosis with resp compensation * (01/05) repeat ABG - acidosis resolved, pending lactic acid * Flu, Strep Negative * blood culture negative thus far * UA +Leukocyte esterase - Probable UTI * UA (01/04 and 01/06) both negative * urine culture shows gram positive cocci * CT Chest: No acute infiltrates. Mild atelectasis as above.Evaluation for adenopathy is also limited due to a relative paucity of mediastinal fat. There is soft tissue seen within the anterior mediastinum which could represent volume averaging of the pulmonary trunk, ascending thoracic aorta and traversing brachiocephalic vein and possibly some residual thymic tissue. . However adenopathy or other soft tissue mass not completely excluded. Mild cardiomegaly. * 01/06 Start Cipro 400 mg Iv and discontinue Zosyn 2.25g IV Q8, Flagyl 500mg IV Q8 because of sensitivity results * Awaiting [facility] records for gastric emptying study - called today to make sure [facility] recieved our request. The fax was turned off over the weekend but they now have the request and will be faxing it over. Medications: * Reglan 10mg PO Q6H PRN * Zofran 4 mg IV Q6 PRN SIRS criteria Positive for elevated WBC,tachycardia Possible source: UTI -UA (01/02/17): 2+ LE, WBC 265, 3+ glucose, 3+ protein, - not clean catch ( Epith ) - CXR and CT Chest (01/01/17): No acute infiltrates - Zosyn 2.25g IV Q8H (First dose 01/01/17) - Flagyl 500mg IV Q8H (First dose 01/01/17) GABRIELA with CKD stage IIIB - Nephrology on board (Dr. Nieves) - ordered renal US (01/02) but patient refused - Patient now agreeing to do this since no contrast involved (01/05) and showed 4mm non obstructing stone in the upper pole of left kidney, no hydronephrosis * Changed IVF to 1/2 NS @100 bc mild acidosis * PICC line ordered (01/06) 2/2 no access - likely pre renal 2/2 self induced vomiting and volume depletion HTN (hypertension) Hydralazine 10 mg Q6 PRN SBP >160 Nifedipine 30mg PO daily Lisinopril 20mg PO daily Norvasc 10mg PO daily Monitor with vital checks Depressive disorder Lexapro 15 mg PO QD as stated above Patient would like to continue seeing Dr. Mckeon as outpatient after discharge Prophylactic measure Started Protonix 40mg IVP daily Placed on SCDs Anti-coag contraindicated due to patient vomiting blood Disposition: will likely discharge tomorrow (01/08) with 5 days of Ciprofloxacin. <Get Coker - Last Filed: 01/07/17 20:36> Objective - Vital Signs/Intake and Output Vital Signs (last 24 hours): Temp Pulse Resp BP Pulse Ox 98.7 F 78 20 138/82 97 01/07/17 16:00 01/07/17 16:00 01/07/17 16:00 01/07/17 16:00 01/07/17 16:00 Intake and Output: 01/07/17 01/08/17 18:59 06:59 Intake Total 950 Output Total 700 Balance 250 - Medications Medications: Current Medications Cyanocobalamin (Vitamin B12 1000 Mcg Tab) 1,000 mcg PO DAILY [facility] Last Admin: 01/07/17 09:46 Dose: 1,000 mcg Escitalopram Oxalate (Lexapro) 20 mg PO DAILY [facility] Last Admin: 01/07/17 09:46 Dose: 20 mg Ferrous Sulfate (Feosol) 325 mg PO BID [facility] Last Admin: 01/07/17 17:24 Dose: 325 mg Gabapentin (Neurontin) 300 mg PO TID [facility] Last Admin: 01/07/17 17:25 Dose: 300 mg Hydralazine HCl (Apresoline) 10 mg IVP Q6H PRN PRN Reason: Systolic Blood Pressure Last Admin: 01/07/17 06:28 Dose: 10 mg Hydroxyzine HCl (Atarax) 25 mg PO QID [facility] Last Admin: 01/07/17 17:26 Dose: 25 mg Potassium Chloride 20 meq/ (Sodium Chloride) 1,010 mls @ 100 mls/hr IV .Q10H6M [facility] Last Admin: 01/07/17 16:35 Dose: 100 mls/hr Ciprofloxacin (Cipro 400mg/200ml Dsw) 400 mg in 200 mls @ 133 mls/hr IVPB Q12H [facility] Last Admin: 01/07/17 17:26 Dose: 133 mls/hr Insulin Aspart (Novolog) 0 unit SC ACHS [facility] PRN Reason: Protocol Last Admin: 01/07/17 16:30 Dose: Not Given Insulin Aspart (Novolog) 6 unit SC AC [facility] Last Admin: 01/07/17 17:28 Dose: 6 unit Insulin Glargine (Lantus) 20 unit SC HS [facility] Levetiracetam (Keppra) 250 mg PO BID [facility] Last Admin: 01/07/17 17:23 Dose: 250 mg Lisinopril (Zestril) 20 mg PO DAILY [facility] Last Admin: 01/07/17 09:45 Dose: 20 mg Ondansetron HCl (Zofran Inj) 4 mg IVP Q6H PRN PRN Reason: Nausea/Vomiting Last Admin: 01/07/17 07:42 Dose: 4 mg Ondansetron HCl (Zofran Odt) 4 mg PO Q6H PRN PRN Reason: Nausea/Vomiting Last Admin: 01/06/17 18:49 Dose: 4 mg Pantoprazole Sodium (Protonix Inj) 40 mg IVP DAILY [facility] Last Admin: 01/07/17 09:45 Dose: 40 mg Propranolol HCl (Inderal) 20 mg PO TID [facility] Last Admin: 01/07/17 18:00 Dose: 20 mg - Labs Labs: 01/07/17 11:31 01/07/17 11:31 Attending/Attestation - Attestation I have personally seen and examined this patient.: Yes I have fully participated in the care of the patient.: Yes I have reviewed all pertinent clinical information, including history, physical exam and plan: Yes Notes (Text): 01/07/17 20:35 Patient was seen and examined shortly after resident. Exam, Assessment and Plan were thoroughly gone over with the resident. Get Coker D.O.
[2017-01-07] MEDS: (Novolog) Insulin Aspart, Recombinant 100 u/ml 10 ml vial SC SCH ×7 (07:42→22:02)
[2017-01-07 09:59] LABS: CHLORIDE URINE 144 mmol/L (32-290)
[2017-01-07 11:44] LABS: BASO % 0.3 % (0.0-2.0); EOS % 0.1 % (0.0-4.0); HEMATOCRIT 32.5 % (34.0-47.0); LYMPH # 1.4 K/uL (1.0-4.3); LYMPH % 17.1 % (20.0-40.0); MEAN CELL VOLUME 83.3 fL (81.0-99.0); MEAN CORPUSCULAR HEMOGLOBIN 27.6 pg (27.0-31.0); MEAN CORPUSCULAR HGB CONC 33.2 g/dL (33.0-37.0); MEAN PLATELET VOLUME 9.7 fL (7.2-11.7); MONO # 0.4 K/uL (0.0-0.8); MONO % 5.2 % (0.0-10.0); RED CELL DISTRIBUTION WIDTH 14.6 % (11.5-14.5); WHITE BLOOD COUNT 8.4 K/uL (4.8-10.8)
[2017-01-07 11:50] LABS: POTASSIUM 3.6 mmol/L (3.6-5.2)
[2017-01-07 11:53] LABS: ALB/GLOB RATIO 0.9 (1.0-2.1); BILIRUBIN,TOTAL 0.4 mg/dL (0.2-1.3); CALCIUM 7.6 mg/dl (8.6-10.4); PHOSPHOROUS 3.8 mg/dL (2.5-4.5); TOTAL PROTEIN 4.7 g/dL (6.3-8.3)
[2017-01-07 11:54] LABS: MAGNESIUM 1.8 mg/dL (1.6-2.3)
--- NOTE | 2017-01-07 14:45 | PN ---
ENDO FOLLOWUP NOTE LOCATION: Room 559. This is a 26-year-old female with recent uncontrolled type 1 insulin-dependent diabetes now being followed closely for metabolic management. She continued with episodic bouts of dizziness with supervening of diffuse abdominal pain and intermittent vomiting episodes that may actually be self-induced as per the nursing staff. Her glycemic levels are fluctuating as noted with glucose levels ranging from 235 to 426 mg/dL. Her latest chemistry showed a BUN of 22, sodium 132, potassium 3.6, chloride 103, CO2 of 21, glucose 234, and creatinine 1.9. So at this time, we will modify once again her basal and bolus insulin regimen, and increased the NovoLog to 6 units subcu t.i.d. before meals to start at dinnertime today as ordered. We will also increase the Lantus to 20 units subcu at bedtime daily to start tonight. We will titrate incrementally as indicated to optimize metabolic control. We will obtain serial chemistries and supplement accordingly as needed. We will follow. Greta Mcgill MD
--- NOTE | 2017-01-07 21:07 | PN ---
DATE: SUBJECTIVE: The patient feels a little better, but she say she has been vomiting still, but she denies having any problems. I have discontinued antibiotics, hence I came to see her. PHYSICAL EXAMINATION VITAL SIGNS: Temperature is 98.1, pulse 87, blood pressure 169/102 is elevated, respirations are 20, HEENT: Face appears kind of puffy, but may be her normal. Since today, I am able to see her well otherwise she keeps on groaning and she is smiling at least. LUNGS: Clear. HEART: S1 and S2 regular. ABDOMEN: Soft and nontender. EXTREMITIES: No edema, clubbing, or cyanosis. ASSESSMENT AND PLAN: I will sign off this case, if needed call me back. I would not put her on Cipro. I think urine culture was . She did get Zosyn before so it should be discontinued and she was treated for the UTI. Maria Elena Mac MD
--- NOTE | 2017-01-07 21:15 | CP.PCM.PN ---
Subjective - Date & Time of Evaluation Date of Evaluation: 01/07/17 Time of Evaluation: 06:30 - Subjective Subjective: dictated Objective - Vital Signs/Intake and Output Vital Signs (last 24 hours): Temp Pulse Resp BP Pulse Ox 98.7 F 78 20 138/82 97 01/07/17 16:00 01/07/17 16:00 01/07/17 16:00 01/07/17 16:00 01/07/17 16:00 Intake and Output: 01/07/17 01/08/17 18:59 06:59 Intake Total 950 Output Total 700 Balance 250 - Medications Medications: Current Medications Cyanocobalamin (Vitamin B12 1000 Mcg Tab) 1,000 mcg PO DAILY [facility] Last Admin: 01/07/17 09:46 Dose: 1,000 mcg Escitalopram Oxalate (Lexapro) 20 mg PO DAILY [facility] Last Admin: 01/07/17 09:46 Dose: 20 mg Ferrous Sulfate (Feosol) 325 mg PO BID [facility] Last Admin: 01/07/17 17:24 Dose: 325 mg Gabapentin (Neurontin) 300 mg PO TID [facility] Last Admin: 01/07/17 17:25 Dose: 300 mg Hydralazine HCl (Apresoline) 10 mg IVP Q6H PRN PRN Reason: Systolic Blood Pressure Last Admin: 01/07/17 06:28 Dose: 10 mg Hydroxyzine HCl (Atarax) 25 mg PO QID [facility] Last Admin: 01/07/17 17:26 Dose: 25 mg Potassium Chloride 20 meq/ (Sodium Chloride) 1,010 mls @ 100 mls/hr IV .Q10H6M [facility] Last Admin: 01/07/17 16:35 Dose: 100 mls/hr Ciprofloxacin (Cipro 400mg/200ml Dsw) 400 mg in 200 mls @ 133 mls/hr IVPB Q12H [facility] Last Admin: 01/07/17 17:26 Dose: 133 mls/hr Insulin Aspart (Novolog) 0 unit SC ACHS [facility] PRN Reason: Protocol Last Admin: 01/07/17 16:30 Dose: Not Given Insulin Aspart (Novolog) 6 unit SC AC [facility] Last Admin: 01/07/17 17:28 Dose: 6 unit Insulin Glargine (Lantus) 20 unit SC HS [facility] Levetiracetam (Keppra) 250 mg PO BID [facility] Last Admin: 01/07/17 17:23 Dose: 250 mg Lisinopril (Zestril) 20 mg PO DAILY [facility] Last Admin: 01/07/17 09:45 Dose: 20 mg Ondansetron HCl (Zofran Inj) 4 mg IVP Q6H PRN PRN Reason: Nausea/Vomiting Last Admin: 01/07/17 07:42 Dose: 4 mg Ondansetron HCl (Zofran Odt) 4 mg PO Q6H PRN PRN Reason: Nausea/Vomiting Last Admin: 01/06/17 18:49 Dose: 4 mg Pantoprazole Sodium (Protonix Inj) 40 mg IVP DAILY [facility] Last Admin: 01/07/17 09:45 Dose: 40 mg Propranolol HCl (Inderal) 20 mg PO TID [facility] Last Admin: 01/07/17 18:00 Dose: 20 mg - Labs Labs: 01/07/17 11:31 01/07/17 11:31
[2017-01-07] MEDS ORDERED: (Lantus) Insulin Glargine, Recombinant SC SCH (22:00)
[2017-01-08] MEDS: Potassium Chloride 20 MEQ in Sodium Chloride 0.45% 1,000 ML IV SCH (04:18)
[2017-01-08 04:47] LABS: TOTAL PROTEIN, SERUM 4.2 g/dL (6.1-8.1)
[2017-01-08] MEDS: Ciprofloxacin 400mg/200ml D5W 400 MG/200 ML BAG IVPB SCH (06:06)
--- NOTE | 2017-01-08 06:19 | CP.PCM.PN ---
Subjective - Date & Time of Evaluation Date of Evaluation: 01/07/17 Time of Evaluation: 20:00 - Subjective Subjective: Patient feels better today, currently not vomiting; tolerating apple sauce; has seen a manager of change in the past but only once; has been told about proteinuria previously; Objective - Vital Signs/Intake and Output Vital Signs (last 24 hours): Temp Pulse Resp BP Pulse Ox 98.7 F 70 20 113/75 96 01/07/17 23:17 01/08/17 04:00 01/07/17 23:17 01/07/17 23:17 01/07/17 23:17 Intake and Output: 01/07/17 01/08/17 18:59 06:59 Intake Total 950 Output Total 700 Balance 250 - Medications Medications: Current Medications Cyanocobalamin (Vitamin B12 1000 Mcg Tab) 1,000 mcg PO DAILY [facility] Last Admin: 01/07/17 09:46 Dose: 1,000 mcg Escitalopram Oxalate (Lexapro) 20 mg PO DAILY [facility] Last Admin: 01/07/17 09:46 Dose: 20 mg Ferrous Sulfate (Feosol) 325 mg PO BID [facility] Last Admin: 01/07/17 17:24 Dose: 325 mg Gabapentin (Neurontin) 300 mg PO TID [facility] Last Admin: 01/07/17 17:25 Dose: 300 mg Hydralazine HCl (Apresoline) 10 mg IVP Q6H PRN PRN Reason: Systolic Blood Pressure Last Admin: 01/07/17 06:28 Dose: 10 mg Hydroxyzine HCl (Atarax) 25 mg PO QID [facility] Last Admin: 01/07/17 22:38 Dose: 25 mg Potassium Chloride 20 meq/ (Sodium Chloride) 1,010 mls @ 100 mls/hr IV .Q10H6M [facility] Last Admin: 01/08/17 04:18 Dose: 100 mls/hr Ciprofloxacin (Cipro 400mg/200ml Dsw) 400 mg in 200 mls @ 133 mls/hr IVPB Q12H [facility] Last Admin: 01/08/17 06:06 Dose: 133 mls/hr Insulin Aspart (Novolog) 0 unit SC ACHS [facility] PRN Reason: Protocol Last Admin: 01/07/17 22:02 Dose: Not Given Insulin Aspart (Novolog) 6 unit SC AC [facility] Last Admin: 01/07/17 17:28 Dose: 6 unit Insulin Glargine (Lantus) 20 unit SC HS [facility] Last Admin: 01/07/17 21:24 Dose: 20 units Levetiracetam (Keppra) 250 mg PO BID [facility] Last Admin: 01/07/17 17:23 Dose: 250 mg Lisinopril (Zestril) 20 mg PO DAILY [facility] Last Admin: 01/07/17 09:45 Dose: 20 mg Ondansetron HCl (Zofran Inj) 4 mg IVP Q6H PRN PRN Reason: Nausea/Vomiting Last Admin: 01/07/17 07:42 Dose: 4 mg Ondansetron HCl (Zofran Odt) 4 mg PO Q6H PRN PRN Reason: Nausea/Vomiting Last Admin: 01/06/17 18:49 Dose: 4 mg Pantoprazole Sodium (Protonix Inj) 40 mg IVP DAILY [facility] Last Admin: 01/07/17 09:45 Dose: 40 mg Propranolol HCl (Inderal) 20 mg PO TID [facility] Last Admin: 01/07/17 18:00 Dose: 20 mg - Labs Labs: 01/07/17 11:31 01/07/17 11:31 - Constitutional Appears: Non-toxic, No Acute Distress - Head Exam Head Exam: NORMAL INSPECTION - Eye Exam Eye Exam: Periorbital swelling - ENT Exam ENT Exam: Mucous Membranes Moist - Respiratory Exam Respiratory Exam: Clear to Ausculation Bilateral. absent: Respiratory Distress - Cardiovascular Exam Cardiovascular Exam: RRR, +S1, +S2 - GI/Abdominal Exam GI & Abdominal Exam: Soft. absent: Tenderness - Extremities Exam Additional comments: edematous upper ext; - Neurological Exam Neurological Exam: Alert, Awake - Psychiatric Exam Psychiatric exam: Normal Affect, Normal Mood - Skin Skin Exam: Warm. absent: Cyanosis, Normal Color Assessment and Plan (1) Acute kidney injury Assessment & Plan: Resolved, pre-renal etiology; continue IVF; Status: Acute (2) Hypokalemia Assessment & Plan: Resolved; monitor; Status: Acute (3) HTN (hypertension) Assessment & Plan: Improved after restarting lisinopril, continue; Status: Acute (4) CKD (chronic kidney disease) stage 3, GFR 30-59 ml/min Assessment & Plan: Counseled regarding proteinuria (~10 g by Ur prot/creat ratio); appears to have nephrotic syndrome with hypoalbuminemia and aldo-orbital swelling; likely due to DM but may benefit from renal biopsy to rule out other causes in this young patient; -avoid placing PICC line in order to preserve veins in this patient who will need HD at some point; Status: Acute
[2017-01-08] MEDS: (Novolog) Insulin Aspart, Recombinant 100 u/ml 10 ml vial SC SCH ×4 (08:24→13:05)
--- NOTE | 2017-01-08 08:41 | CP.PCM.PN ---
Subjective - Date & Time of Evaluation Date of Evaluation: 01/08/17 Time of Evaluation: 08:40 - Subjective Subjective: PGY-[address] Nieves's Nephrology service: Pt seen and examined at bedside. She reports feeling much better today. She denies any episodes of nausea, vomiting this AM, and has been tolerating solid food without issue. She reports seeing quality management nurse in the past in [place], whose name she cannot recall, but states that is too far to continue seeing. She remembers having renal biopsy at [facility] but cannot remember which one. She denies fever, chills, chest pain, SOB, abdominal pain, n/v/d/c, or difficulty urinating. Objective - Vital Signs/Intake and Output Vital Signs (last 24 hours): Temp Pulse Resp BP Pulse Ox 98.3 F 71 20 130/89 96 01/08/17 07:00 01/08/17 07:00 01/08/17 07:00 01/08/17 07:00 01/08/17 07:00 Intake and Output: 01/08/17 01/08/17 06:59 18:59 Intake Total 100 Balance 100 - Medications Medications: Current Medications Cyanocobalamin (Vitamin B12 1000 Mcg Tab) 1,000 mcg PO DAILY [facility] Last Admin: 01/07/17 09:46 Dose: 1,000 mcg Escitalopram Oxalate (Lexapro) 20 mg PO DAILY [facility] Last Admin: 01/07/17 09:46 Dose: 20 mg Ferrous Sulfate (Feosol) 325 mg PO BID [facility] Last Admin: 01/07/17 17:24 Dose: 325 mg Gabapentin (Neurontin) 300 mg PO TID [facility] Last Admin: 01/07/17 17:25 Dose: 300 mg Hydralazine HCl (Apresoline) 10 mg IVP Q6H PRN PRN Reason: Systolic Blood Pressure Last Admin: 01/07/17 06:28 Dose: 10 mg Hydroxyzine HCl (Atarax) 25 mg PO QID [facility] Last Admin: 01/07/17 22:38 Dose: 25 mg Potassium Chloride 20 meq/ (Sodium Chloride) 1,010 mls @ 100 mls/hr IV .Q10H6M [facility] Last Admin: 01/08/17 04:18 Dose: 100 mls/hr Ciprofloxacin (Cipro 400mg/200ml Dsw) 400 mg in 200 mls @ 133 mls/hr IVPB Q12H [facility] Last Admin: 01/08/17 06:06 Dose: 133 mls/hr Insulin Aspart (Novolog) 0 unit SC ACHS [facility] PRN Reason: Protocol Last Admin: 01/08/17 08:24 Dose: Not Given Insulin Aspart (Novolog) 6 unit SC AC [facility] Last Admin: 01/07/17 17:28 Dose: 6 unit Insulin Glargine (Lantus) 20 unit SC HS [facility] Last Admin: 01/07/17 21:24 Dose: 20 units Levetiracetam (Keppra) 250 mg PO BID [facility] Last Admin: 01/07/17 17:23 Dose: 250 mg Lisinopril (Zestril) 20 mg PO DAILY [facility] Last Admin: 01/07/17 09:45 Dose: 20 mg Ondansetron HCl (Zofran Inj) 4 mg IVP Q6H PRN PRN Reason: Nausea/Vomiting Last Admin: 01/07/17 07:42 Dose: 4 mg Ondansetron HCl (Zofran Odt) 4 mg PO Q6H PRN PRN Reason: Nausea/Vomiting Last Admin: 01/06/17 18:49 Dose: 4 mg Pantoprazole Sodium (Protonix Inj) 40 mg IVP DAILY [facility] Last Admin: 01/07/17 09:45 Dose: 40 mg Propranolol HCl (Inderal) 20 mg PO TID [facility] Last Admin: 01/07/17 18:00 Dose: 20 mg - Labs Labs: 01/07/17 11:31 01/07/17 11:31 - Constitutional Appears: Non-toxic, No Acute Distress - Head Exam Head Exam: ATRAUMATIC, NORMAL INSPECTION - Eye Exam Eye Exam: EOMI, Normal appearance. absent: Scleral icterus Pupil Exam: PERRL - ENT Exam ENT Exam: Mucous Membranes Moist - Neck Exam Neck Exam: Full ROM - Respiratory Exam Respiratory Exam: Clear to Ausculation Bilateral, NORMAL BREATHING PATTERN. absent: Rales, Rhonchi, Wheezes - Cardiovascular Exam Cardiovascular Exam: REGULAR RHYTHM, +S1, +S2 - GI/Abdominal Exam GI & Abdominal Exam: Soft, Normal Bowel Sounds. absent: Tenderness - Extremities Exam Extremities Exam: Pedal Edema. absent: Tenderness - Neurological Exam Neurological Exam: Alert, Awake, Oriented x3 - Psychiatric Exam Psychiatric exam: Normal Affect, Normal Mood - Skin Skin Exam: Normal Color, Warm Assessment and Plan - Assessment and Plan (Free Text) Plan: (1) Acute kidney injury Assessment & Plan: Resolved, pre-renal etiology; Bun/Cr stable, improved from admission Pt eating better, tolerating diet Status: Acute (2) Hypokalemia Assessment & Plan: Resolved Monitor; Status: Acute (3) HTN (hypertension) Assessment & Plan: Well controlled Status: Acute (4) CKD (chronic kidney disease) stage 3, GFR 30-59 ml/min Assessment & Plan: Counseled regarding proteinuria (~10 g by Ur prot/creat ratio) -appears to have nephrotic syndrome with hypoalbuminemia and aldo-orbital swelling; - likely due to DM but may benefit from renal biopsy to rule out other causes in this young patient - pt reports having renal biopsy in past, asked pt to try to find records Status: Acute Discussed with Dr. Ezequiel Ring PGY-1
--- NOTE | 2017-01-08 10:41 | PCM.PYCHPN ---
Psychiatric Progress Note - Psychiatric Progress Note Patient seen today, length of contact: 15 min Patient Chief Complaint: "I feel much better" Problems Identified/Issues Discussed: The patient is seen, chart reviewed and case discussed She feels and looks better. No complaints, no throwing up or pseudoseiz. how to cope with stress and impulses discussed. OK with after care plans: CRC Medication Change: No Medical Record Reviewed: Yes Mental Status Examination - Cognitive Function Orientation: Person, Place, Situation, Time Memory: Intact Attention: WNL Concentration: WNL Association: WNL Fund of Knowledge: WNL - Mood Mood: Depressed (less), Anxious - Affect Affect: Constricted - Speech Speech: Soft - Formal Thought Process Formal Thought Process: No Impairment - Suicidal Ideation Suicidal Ideation: No - Homicidal Ideation Homicidal Ideation: No Goal/Treatment Plan - Goal/Treatment Plan Need for Continued Stay: Other (medical) Progress Toward Problem(s) and Goals/Treatment Plan: Depression and Anxiety: Lexapro is 20 mg Inderal added for anxiety Gabapentin for anxiety Atarax Support and psychoed Refer to indiv. 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
--- NOTE | 2017-01-08 13:27 | CP.PCM.DIS ---
Provider - Provider Date of Admission: 12/31/16 20:44 Attending physician: Get Coker MD Primary care physician: none Consults: Dr. Linda Mac Time Spent in preparation of Discharge (in minutes): 35 Diagnosis - Discharge Diagnosis (1) CKD (chronic kidney disease) stage 3, GFR 30-59 ml/min Status: Acute Comment: Please see summary for more details (2) ARF (acute renal failure) Status: Acute Comment: Please see summary for more details (3) Depressive disorder Status: Acute Comment: Please see summary for more details (4) Gastroparesis Status: Acute Comment: Please see summary for more details (5) History of seizures Status: Acute Comment: Please see summary for more details (6) Diabetes mellitus Status: Chronic Comment: Please see summary for more details (7) Conversion disorder Status: Acute Comment: Please see summary for more details. Hospital Course - Lab Results Lab Results: Micro Results 01/03/17 19:30 Blood Blood Culture - Preliminary NO GROWTH AFTER 4 DAYS 01/06/17 13:57 Urine,Clean Catch Urine Culture - Final No Growth (<1,000 CFU/ML) 01/04/17 19:00 Urine,Clean Catch Urine Culture - Final No Growth (<1,000 CFU/ML) 01/01/17 20:44 Throat Group A Strep Throat Culture - Final NO BETA STREP GROUP A ISOLATED. 01/02/17 Unknown Urine Urine Culture - Final Coagulase Neg Staphylococcus Most Recent Lab Values WBC 8.4 K/uL (4.8-10.8) 01/07/17 11:31 RBC 3.91 Mil/uL (3.80-5.20) 01/07/17 11:31 Hgb 10.8 g/dL (11.0-16.0) L 01/07/17 11:31 Hct 32.5 % (34.0-47.0) L 01/07/17 11:31 MCV 83.3 fL (81.0-99.0) 01/07/17 11:31 MCH 27.6 pg (27.0-31.0) 01/07/17 11:31 MCHC 33.2 g/dL (33.0-37.0) 01/07/17 11:31 RDW 14.6 % (11.5-14.5) H 01/07/17 11:31 Plt Count 255 K/uL (130-400) 01/07/17 11:31 MPV 9.7 fL (7.2-11.7) 01/07/17 11:31 Neut % (Auto) 77.3 % (50.0-75.0) H 01/07/17 11:31 Lymph % (Auto) 17.1 % (20.0-40.0) L 01/07/17 11:31 [place] % (Auto) 5.2 % (0.0-10.0) 01/07/17 11:31 Eos % (Auto) 0.1 % (0.0-4.0) 01/07/17 11:31 Baso % (Auto) 0.3 % (0.0-2.0) 01/07/17 11:31 Neut # 6.5 K/uL (1.8-7.0) 01/07/17 11:31 Lymph # 1.4 K/uL (1.0-4.3) 01/07/17 11:31 [place] # 0.4 K/uL (0.0-0.8) 01/07/17 11:31 Eos # 0.0 K/uL (0.0-0.7) 01/07/17 11:31 Baso # 0.0 K/uL (0.0-0.2) 01/07/17 11:31 Neutrophils % (Manual) 92 % (50-75) H 01/02/17 07:23 Lymphocytes % (Manual) 6 % (20-40) L 01/02/17 07:23 Monocytes % (Manual) 2 % (0-10) 01/02/17 07:23 Platelet Estimate Normal (NORMAL) 01/02/17 07:23 Hypochromasia (manual) Slight 01/02/17 07:23 Poikilocytosis (manual Slight 01/02/17 07:23 Anisocytosis (manual) Slight 01/02/17 07:23 Tear Drop Cells Slight 01/01/17 08:54 Puncture Site Rradial 01/05/17 17:00 pCO2 37 mm/Hg (35-45) 01/05/17 17:00 pO2 92 mm/Hg (80-100) 01/05/17 17:00 HCO3 25.7 mmol/L (21-28) 01/05/17 17:00 ABG pH 7.44 (7.35-7.45) 01/05/17 17:00 ABG Total CO2 26.2 mmol/L (22-28) 01/05/17 17:00 ABG O2 Saturation 98.5 % (95-98) H 01/05/17 17:00 ABG Base Excess 1.0 mmol/L (-2.0-3.0) 01/05/17 17:00 ABG Hemoglobin 11.0 g/dL (11.7-17.4) L 01/05/17 17:00 ABG Carboxyhemoglobin 1.6 % (0.5-1.5) H 01/05/17 17:00 POC ABG HHb (Measured) 1.5 % (0.0-5.0) 01/05/17 17:00 ABG Methemoglobin 1.2 % (0.0-3.0) 01/05/17 17:00 Glenn Test Pos 01/05/17 17:00 ABG Potassium 4.3 mmol/L (3.6-5.2) 12/31/16 20:20 A-a O2 Difference 11.0 mm/Hg 01/05/17 17:00 Respiratory Index 0.1 01/05/17 17:00 Hgb O2 Saturation 95.7 % (95.0-98.0) 01/05/17 17:00 Sodium 138.0 mmol/l (132-148) 12/31/16 20:20 Chloride 103.0 mmol/L (98-107) 12/31/16 20:20 Glucose 743 mg/dl (65-105) H* D 12/31/16 20:20 Lactate 2.8 mmol/L (0.7-2.1) H 12/31/16 20:20 FiO2 21.0 % 01/05/17 17:00 Crit Value Called To Isak ibarra rn 12/31/16 20:20 Crit Value Called By Kyaw cook sewing demonstrator 12/31/16 20:20 Crit Value Read Back Y 12/31/16 20:20 Blood Gas Notified Time 202412/31/16 20:20 Sodium 132 mmol/L (132-148) 01/07/17 11:31 Potassium 3.6 mmol/L (3.6-5.2) 01/07/17 11:31 Chloride 103 mmol/L (98-107) 01/07/17 11:31 Carbon Dioxide 21 mmol/L (22-30) L 01/07/17 11:31 Anion Gap 12 (10-20) 01/07/17 11:31 BUN 22 mg/dL (7-17) H 01/07/17 11:31 Creatinine 1.9 MG/DL (0.7-1.2) H 01/07/17 11:31 Est GFR ( Amer) 38 01/07/17 11:31 Est GFR (Non-Af Amer) 32 01/07/17 11:31 POC Glucose (mg/dL) 176 mg/dL (65-110) H 01/08/17 11:22 Random Glucose 234 mg/dL (65-105) H 01/07/17 11:31 Hemoglobin A1c 7.3 % (4.2-6.5) H D 01/02/17 10:05 Calcium 7.6 mg/dl (8.6-10.4) L 01/07/17 11:31 Phosphorus 3.8 mg/dL (2.5-4.5) 01/07/17 11:31 Magnesium 1.8 mg/dL (1.6-2.3) 01/07/17 11:31 Total Bilirubin 0.4 mg/dL (0.2-1.3) 01/07/17 11:31 AST 26 U/L (14-36) 01/07/17 11:31 ALT 28 U/L (9-52) 01/07/17 11:31 Alkaline Phosphatase 66 U/L (38-126) 01/07/17 11:31 Total Creatine Kinase 107 U/L (30-135) 01/05/17 09:02 CK-MB (Mass) 0.62 ng/mL (0.0-3.38) 01/05/17 09:02 Troponin I, Quant 0.0230 ng/mL (0.00-0.120) 01/05/17 09:02 Total Protein 4.7 g/dL (6.3-8.3) L 01/07/17 11:31 Total Protein (PEP) 4.2 g/dL (6.1-8.1) L 01/07/17 11:31 Albumin 2.2 g/dL (3.5-5.0) L 01/07/17 11:31 Globulin 2.5 gm/dL (2.2-3.9) 01/07/17 11:31 Albumin/Globulin Ratio 0.9 (1.0-2.1) L 01/07/17 11:31 Triglycerides 91 mg/dL (0-149) 01/02/17 07:23 Cholesterol 247 mg/dL (0-199) H 01/02/17 07:23 LDL Cholesterol Direct 132 mg/dL (0-129) H 01/02/17 07:23 HDL Cholesterol 93 mg/dL (30-70) H 01/02/17 07:23 Amylase 58 U/L (30-110) 01/04/17 17:05 Lipase 12 U/L (23-300) L 01/04/17 17:05 Procalcitonin 0.78 NG/ML (0.19-0.49) H 01/05/17 09:02 Prolactin 287.7 ng/mL (3.0-18.9) H 01/03/17 13:05 Cortisol AM Sample 39.0 ug/dL (4.46-22.7) H 01/03/17 13:05 ACTH 19 pg/mL (6-50) 01/03/17 13:05 Arterial Blood Potassium 4.3 mmol/L (3.6-5.2) 12/31/16 20:20 Urine Color Yellow (YELLOW) 01/05/17 14:55 Urine Clarity Hazy (Clear) 01/05/17 14:55 Urine pH 5.0 (5.0-8.0) 01/05/17 14:55 Ur Specific Mobile 1.021 (1.003-1.030) 01/05/17 14:55 Urine Protein 3+ mg/dL (NEGATIVE) H 01/05/17 14:55 Urine Glucose (UA) 3+ mg/dL (Normal) H 01/05/17 14:55 Urine Ketones Trace mg/dL (NEGATIVE) 01/05/17 14:55 Urine Blood Negative (NEGATIVE) 01/05/17 14:55 Urine Nitrate Negative (NEGATIVE) 01/05/17 14:55 Urine Bilirubin Negative (NEGATIVE) 01/05/17 14:55 Urine Urobilinogen Normal mg/dL (0.2-1.0) 01/05/17 14:55 Ur Leukocyte Esterase 1+ Kathy/uL (Negative) H 01/05/17 14:55 Urine WBC (Auto) 42 /hpf (0-5) H 01/05/17 14:55 Urine RBC (Auto) 5 /hpf (0-3) H 01/05/17 14:55 Urine WBC Clumps (Auto) Few /hpf (NONE) H 01/02/17 07:23 Ur Squamous Epith Cells 2 /hpf (0-5) 01/05/17 14:55 Urine Bacteria Rare (<OCC) 01/05/17 14:55 Hyaline Casts 0-2 /lpf (0-2) 01/02/17 07:23 Ur Random Creatinine 106.7 mg/dL 01/07/17 20:35 U Random Total Protein 1050.0 mg/dL (0.0-12.0) H 01/07/17 21:00 Ur Random Sodium 32 mmol/L 01/03/17 13:37 Urine Microalbumin > 950.0 mg/L (0.0-16.6) H 01/05/17 23:30 Urine Chloride 144 mmol/L (32-290) 01/03/17 10:16 Urine HCG, Qual Negative (NEGATIVE) 12/31/16 19:30 Urine Opiates Screen Negative (NEGATIVE) 12/31/16 19:30 Urine Methadone Screen Negative (NEGATIVE) 12/31/16 19:30 Ur Barbiturates Screen Negative (NEGATIVE) 12/31/16 19:30 Ur Phencyclidine Scrn Negative (NEGATIVE) 12/31/16 19:30 Ur Amphetamines Screen Negative (NEGATIVE) 12/31/16 19:30 U Benzodiazepines Scrn Negative (NEGATIVE) 12/31/16 19:30 U Oth Cocaine Metabols Negative (NEGATIVE) 12/31/16 19:30 U Cannabinoids Screen Negative (NEGATIVE) 12/31/16 19:30 Serum Ketones Small (NEGATIVE) 12/31/16 20:00 Complement C3 83.0 mg/dL (88.0-165.0) L 01/04/17 17:05 Complement C4 23.8 mg/dL (14.0-44.0) 01/04/17 17:05 Hepatitis A IgM Ab Negative (NEGATIVE) 01/03/17 13:05 Hep Bs Antigen Negative (NEGATIVE) 01/03/17 13:05 Hep B Core IgM Ab Negative (NEGATIVE) 01/03/17 13:05 Hepatitis C Antibody Negative (NEGATIVE) 01/03/17 13:05 Influenza Typ A,B (EIA) Negative for flu a/b (NEGATIVE) 01/01/17 20:44 Grp A Beta Strep Ag Negative (NEGATIVE) 01/01/17 20:44 - Hospital Course Hospital Course: Upon admission: 26 year old female with a PMH of diabetes (type 1), HTN, seizures, anxiety and depression was brought BIBA to ED, accompanied by her mother, with complaints of vomiting and seizures. The mother gave the hx that the patient has vomiting blood since this morning and that she has had multiple seizures . The mother states that the daughter was discharged from hospital on 12/29/2016, for the same symptoms. Overall her evaluation was normal. She was also seen by neurologist and instructed to follow up with [facility] for further monitoring and was suggested to have a psychiatric evaluation due to anxiety leading to feigning seizures. She says the patient slept out at her friend's house last night and she is unsure if she took any of her medications. Upon arrival to the ED, the patient was vomiting and actively seizing with EMS aiding. Patient's mother denies f/c, d/c, sob or other complaints. Mother, "Last time she was here, they said everything was just in her head and that the seizures were not real. If this is the case, can we please try and get her some help so she stops doing this." During exam, patient had 3 "seizures" in which she had fully body convulsions. These convulsions lasted approximated 15-30 seconds. As soon as convulsions ended, patient would begin to cry and scream that she needs Ativan. "I don't want to ! Please give me Ativan!" This happened 3 times separate times when the resident attempted to get any history from the patient. Hospital Course: Patient was admitted for Hypergycemia with blood glucose of 651 on admission and patient given 20 units of insulin. Blood glucose improved to 168, placed on ISS meds.Patient having seizures as before and was treated with Keppra 750 mg IV Q12 and ativan as needed. Dr Cruz was consulted for Neuro recommendation and Recommended weaning off of keppra as seizure were likely due to hyper/ hypoglycemia. 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 Dr Mckeon was consulted for Psychiatric recommendation and he started her on Lexapro. The abdominal pain was manged with Reglan 5 mg PO q8H. [facility] [place] gastroparesis which GI ( Dr. Suresh) said could be managed with the reglan regimen. Hypertension was manged with Nifedidpine 30 mg PO, Lisonipril 20 mg, Norvasc 10 mg. Abdominal pain with vomiting prior CT abdomen/pelvis study on 12/27/2016( no contrast pt refused) showed diffusely thickened bladder wall. UA performed on 12/21 and 12/31: No signs of obvious infectious etiology. ABG: Metabolic acidosis with resp compensation, blood culture negative, UA + Leukoestersae probable UTI, Urine culture shows gram positive cocci. Zosyn 2.25 IV Q8 and Flagyl 500 mg IV Q8 were started and continued until sensitivities came back showing that Cipro had greater sensitivity. Nephrology was consulted ( Dr Sim). US of kidney was ordered on 01/02 was refused by patient but she later agreed (01/05) and it showed 4mm non obstructing stone in the upper pole of left kidney, no hydronephrosis. Patient's GABRIELA was likely prerenal and 2/2 GABRIELA. Upon Discharge: Patient seen and examined at bedside. Patient doing much better today and says she is no longer vomiting and is now having normal BMs. Patient urinating without difficulty. Patient seems happy to be going home. She denies fever, chills, chest pain, SOB, abdominal pain, nausea, diarrhea, constipation, pain in the extremities, and headache. Patient is clear for discharge per Dr. Coker. Patient was provided with the following instructions: 1. [facility] [place] and therapy - call between 12pm-2pm to schedule an appointment or [phone]. 2. Follow up with [facility] at [facility] (Floor B) - call . This will be your primary care physician. 3. Follow up with your neurologist, Dr. Cruz, for 24 hour EEG study. To schedule an appointment call . This is located at [address] [place] [address]. [address] Please note that this is a summary of events. For more details please see complete medical record. Discharge Exam - Head Exam Head Exam: ATRAUMATIC, NORMAL INSPECTION - Eye Exam Eye Exam: EOMI - ENT Exam ENT Exam: Mucous Membranes Moist - Respiratory Exam Respiratory Exam: Clear to PA & Lateral, NORMAL BREATHING PATTERN, UNREMARKABLE. absent: Accessory Muscle Use, Rales, Rhonchi, Wheezes, Respiratory Distress, Stridor - Cardiovascular Exam Cardiovascular Exam: REGULAR RHYTHM, +S1, +S2. absent: Bradycardia, Tachycardia , Systolic Murmur - GI/Abdominal Exam GI & Abdominal Exam: Normal Bowel Sounds, Soft, Unremarkable. absent: Distended , Tenderness - Extremities Exam Additional comments: nonpitting edema of upper extremities, nontender - Back Exam Back exam: NORMAL INSPECTION - Neurological Exam Neurological exam: Alert, Oriented x3 - Psychiatric Exam Psychiatric exam: Normal Affect, Normal Mood - Skin Skin Exam: Dry, Intact, Normal Color, Warm Discharge Plan - Discharge Medications Prescriptions: Ciprofloxacin [Cipro] 500 mg PO BID #6 tab Escitalopram [Lexapro] 20 mg PO DAILY #30 tab Gabapentin [Neurontin] 300 mg PO TID #90 cap hydrOXYzine HCl [Atarax] 25 mg PO QID #120 tab Insulin Aspart, Recombinant [Novolog] 6 unit SC AC #2 vial Insulin Glargine, Recombina [Lantus] 20 unit SC HS #2 vial Lisinopril [Zestril] 20 mg PO DAILY #30 tab Metoclopramide [Reglan] 5 mg PO TIDAC #90 tab NIFEdipine ER [Procardia XL] 30 mg PO DAILY #30 ter Propranolol [Inderal] 20 mg PO TID #90 tab - Follow Up Plan Condition: GUARDED Disposition: HOME/ ROUTINE Instructions: Urinary Tract Infection in Women (DC), Hyperosmolar Hyperglycemic State (DC), Acute Nausea and Vomiting (DC), Chronic Hypertension ( DC) Additional Instructions: Patient will need to be provided with the following instructions: 1. Follow up with [facility] ([address] [place] [address]) for counseling and therapy - call between 12pm-2pm to schedule an appointment or [phone]. 2. Follow up with [facility] at [facility] (Floor B) - call . This will be your primary care physician. 3. Follow up with your neurologist, Dr. Cruz, for 24 hour EEG study. To schedule an appointment call . This is located at [address] [place] [address]. [address] Referrals: [facility] at [facility] [Outside] Maurice Cruz MD [Staff Provider] -
[2017-01-08 17:06] VITALS: BP 98/68; PULSE 74; TEMP 98.2; O2SAT 98
--- NOTE | 2017-01-08 18:40 | PN ---
ENDOCRINOLOGY FOLLOWUP NOTE DATE: LOCATION: Room 559. This is a 26-year-old female with uncontrolled and decompensated type 1 insulin-dependent diabetes, presenting here with diffuse abdominal pain and intractable vomiting episode with possible pseudoseizures and is now being followed closely for metabolic management. Her glycemic levels are fluctuating as her oral intake remains quite variable at this time. Her glucose levels have ranged from 176 to 205 and 228 mg/dL. Her latest chemistry showed a BUN of 22, sodium 132, potassium 3.6, chloride 103, CO2 of 21, glucose 234 and creatinine 1.9. So, at this time, we will continue the same basal and bolus insulin regimen as modified with a lower dose of NovoLog given as 6 units subcutaneously t.i.d. before meals as ordered. We will continue the Lantus given as 20 units subcutaneously at bedtime daily as given. We will continue also the low-dose correction scale using NovoLog insulin as ordered. We will follow and advise accordingly. Greta Mcgill MD
[2017-01-09 07:00] LABS: BETA 1 GLOBULIN 0.2 g/dL (0.4-0.6); BETA 2 GLOBULIN 0.4 g/dL (0.2-0.5); GAMMA GLOBULIN 0.5 g/dL (0.8-1.7)
[2017-01-09 11:36] LABS: RHEUMATOID FACTOR 9 IU/mL (<14)
[2017-01-09 14:20] LABS: SM ANTIBODY <1.0 NEG AI (<1.0 NEGATIVE)
[2017-01-09 18:40] LABS: MYOCARDIAL AB IF NEGATIVE (NEGATIVE)
[2017-01-09 23:28] LABS: RETICULIN AB IGA NEGATIVE (NEGATIVE)
== END 2017-01-08 18:35 | disposition home or self-care (01) | DRG 566 ==
LOC: C.ER 13:21 → C.9E 20:44 → C.5S 23:45
PROVIDERS: ADMIT Family Medicine; ATTEND Family Medicine
DX: E10.65 Type 1 diabetes mellitus with hyperglycemia (principal); N17.9 Acute kidney failure, unspecified; K31.84 Gastroparesis; N18.3 Chronic kidney disease, stage 3 (moderate); E10.43 Type 1 diabetes mellitus with diabetic autonomic (poly)neuropathy; E10.22 Type 1 diabetes mellitus with diabetic chronic kidney disease; F44.5 Conversion disorder with seizures or convulsions; E86.9 Volume depletion, unspecified; N39.0 Urinary tract infection, site not specified; F32.9 Major depressive disorder, single episode, unspecified; Z87.891 Personal history of nicotine dependence; F41.1 Generalized anxiety disorder; R63.1 Polydipsia; F45.8 Other somatoform disorders; I12.9 Hypertensive chronic kidney disease with stage 1 through stage 4 chronic kidney disease, or unspecified chronic kidney disease

== ENCOUNTER 2017-01-12 01:51 | Emergency (ER) | payer MEDICAID ==
[2017-01-12 01:52] VITALS: BMI 26.4
[2017-01-12 02:06] VITALS: TEMP 98.7
[2017-01-12] MEDS ORDERED: Sodium Chloride 0.9% 1,000 ML IV ONE (02:14)
[2017-01-12] MEDS ORDERED: Sodium Chloride 0.9% 1,000 ML ONE (02:29)
[2017-01-12] MEDS ORDERED: Labetalol 5 mg/ml Inj 20ML IV STA (02:31)
[2017-01-12 02:37] LABS: CHLORIDE 104 mmol/L (98-107)
[2017-01-12 02:38] LABS: SODIUM 140 mmol/L (132-148)
[2017-01-12] MEDS ORDERED: Labetalol 25mg/5ml Syringe ONE (02:39)
[2017-01-12 02:40] LABS: ALKALINE PHOSPHATASE 63 U/L (38-126); AST/SGOT 33 U/L (14-36); BILIRUBIN,TOTAL 0.6 mg/dL (0.2-1.3); CARBON DIOXIDE 24 mmol/L (22-30); GFR AFRICAN-AMERICAN 55; TOTAL PROTEIN 5.5 g/dL (6.3-8.3)
[2017-01-12 02:41] LABS: ALT/SGPT 23 U/L (9-52); BASO # 0.1 K/uL (0.0-0.2); BASO % 0.5 % (0.0-2.0); BLOOD UREA NITROGEN 16 mg/dL (7-17); CALCIUM 8.8 mg/dl (8.6-10.4); EOS % 0.1 % (0.0-4.0); GLUCOSE,RANDOM 140 mg/dL (65-105); LYMPH # 0.8 K/uL (1.0-4.3); LYMPH % 7.3 % (20.0-40.0); MEAN CELL VOLUME 83.5 fL (81.0-99.0); MEAN CORPUSCULAR HEMOGLOBIN 27.5 pg (27.0-31.0); MEAN CORPUSCULAR HGB CONC 32.9 g/dL (33.0-37.0); MEAN PLATELET VOLUME 10.7 fL (7.2-11.7); MONO # 0.2 K/uL (0.0-0.8); MONO % 1.7 % (0.0-10.0); NRBC % 0.2 % (0.0-2.0); PLATELET COUNT 344 K/uL (130-400); RED CELL DISTRIBUTION WIDTH 14.9 % (11.5-14.5); WHITE BLOOD COUNT 11.1 K/uL (4.8-10.8)
[2017-01-12 02:44] LABS: POTASSIUM 4.7 mmol/L (3.6-5.2)
[2017-01-12 03:09] LABS: NEUTROPHIL 91 % (50-75); TOTAL CELLS COUNTED 100
--- NOTE | 2017-01-12 04:06 | C.PDOC ---
History Of Present Illness 26 year old female who presents to the ER with a complaint of vomiting for the past 12 hours. Patient has had multiple recent admissions from 12/18-12/20, 12/23-, 12/31-01/08, encompassing almost the last 3 weeks. Patient had extensive inpatient evaluations that were significant for conversion disorder, anxiety, depression, benzo withdrawal, and gastroparesis. Denies fever, chills, or abdominal pain. Time Seen by Provider: 01/12/17 02:10 Chief Complaint (Nursing): Seizure History Per: Patient History/Exam Limitations: no limitations Post-ictal Period: No Recent travel outside of the [place]: No Past Medical History Reviewed: Historical Data, Nursing Documentation, Vital Signs Vital Signs: Last Vital Signs Temp 98.7 F 01/12/17 02:00 Pulse 101 H 01/12/17 05:45 Resp 18 01/12/17 05:45 BP 141/88 01/12/17 05:45 Pulse Ox 100 01/12/17 05:45 - Medical History PMH: Anemia, Anxiety, Depression, Diabetes, HTN, Seizures Surgical History: No Surg Hx - [facility] Procedures EXCISION OF STOMACH, ENDO, DIAGN (11/02/16) INSERTION OF INFUSION DEV INTO L SUBCLAV VEIN, PERC APPROACH (10/28/16) INSERTION OF INFUSION DEV INTO SUP VENA CAVA, PERC APPROACH (11/02/16) INTRODUCTION OF NUTRITIONAL INTO PERIPH VEIN, PERC APPROACH (10/16/16) ULTRASONOGRAPHY OF SUPERIOR VENA CAVA, GUIDANCE (10/16/16) Family History: States: Unknown Family Hx - Social History Hx Alcohol Use: No Hx Substance Use: No - Immunization History Hx Tetanus Toxoid Vaccination: No Hx Influenza Vaccination: Yes Hx Pneumococcal Vaccination: Yes Review Of Systems Constitutional: Negative for: Fever, Chills Cardiovascular: Negative for: Chest Pain, Palpitations Respiratory: Negative for: Shortness of Breath Gastrointestinal: Positive for: Vomiting. Negative for: Abdominal Pain Genitourinary: Negative for: Dysuria Skin: Negative for: Rash Physical Exam - Physical Exam Appears: Non-toxic, Other (Vomiting, voluntarily moving extremities while awake , claiming seizure, no post ictal phase.) Skin: Normal Color, Warm, Dry Head: Atraumatic, Normacephalic Oral Mucosa: Moist Neck: Normal, Supple Chest: Symmetrical, No Tenderness Cardiovascular: Rhythm Regular, No Murmur Respiratory: Normal Breath Sounds, No Rales, No Rhonchi, No Wheezing Gastrointestinal/Abdominal: Soft, No Tenderness Extremity: Normal ROM (x4) Neurological/Psych: Oriented x3, Normal Speech, Normal Cognition ED Course And Treatment - Laboratory Results Result Diagrams: 01/12/17 02:24 01/12/17 02:24 Lab Interpretation: Normal (baseline labs for this pt c/w many prior labs in past 6 weeks.) ECG: Interpreted By De ECG Rhythm: Sinus Tachycardia ECG Interpretation: Normal, Abnormal Rate From EC O2 Sat by Pulse Oximetry: 97 Pulse Ox Interpretation: Normal Progress Note: labetolol, IVF, zofran, pepcid. Discussed with mother at bedside who was giving patient 10mg reglan prior to meals, she did not understand to give zofran for nausea and vomiting. pt refused to give urine sample for u-preg/UDS. Repeat Zofran IV with persistent pt vomiting and upset, intentionally retching. Case d/w Dr. Brown- Hospitalist- to review if additional inpatient evaluation will contribute beneficially to this patient- considering extensive 3 weeks inpatient discharged 2 days ago. when discharged , pt by [facility] with recurrent catatonic behavior but not c/w seizure. Explained again to pt that inpatient eval will not significantly change her treatment plan. Mother verbalized understanding and took pt home in cab. Reevaluation Time: 04:01 Reassessment Condition: Improved Critical Care Time - Critical Care Note Total Time (in mins): 90 Documented critical care: time excludes all time spent performing seperately billable procedures. Medical Decision Making Medical Decision Making: pt's notes and d/c summaries from 3 prior d/c's in past month reviewed pt with h/o intractable vomiting ? related to gastroparesis, benzo withdrawal, conversion disorder and anxiety/depression ? related to new psych meds NO evidence of seizure disorder and pt's VOLUNTARY ARM/LEG MOVEMENTS quickly extinguished and not repeated when told she would not receive any Ativan in the ED Pt's mother @ bedside is caring for her @ home, again instructed to use Zofran ODT (had at home but did not know to use) for n/v Continue Reglan 10 mg TID AC for gastroparesis. grossly unchanged labs and pt much improved with ED tx, stable for d/c home. Considering no signficant blood test abnormalities, refusal to provide UA, and pt's typical presentation of self-induced vomiting, faking seizures, and pain med seeking this seems more c/w working dx of Conversion disorder, and suggests Boarderline behavior. Outpatient f/u encouraged and pending for tomorrow. Disposition Doctor Will See Patient In The: Office Counseled Patient/Family Regarding: Studies Performed, Diagnosis - Disposition Referrals: Reza King Jr., MD [Medical Doctor] - Disposition: HOME/ ROUTINE Disposition Time: 04:06 Condition: GOOD Additional Instructions: sigue Reglan 10 mg antes de las comidas 3 veces al paula Sigue Zofran ODT 4 mg (para la nausea) Se desuelve en la boce en nazanin de nausea/vomitos. Sigue con Dr. Christine Villegas. Instructions: Acute Nausea and Vomiting (ED) Forms: [employer] (Kazakh) Print Language: MACEDONIAN - Clinical Impression Clinical Impression: Vomiting, Conversion disorder - Scribe Statement The provider has reviewed the documentation as recorded by the Scribe Yao Varela All medical record entries made by the Scribe were at my direction and personally dictated by me. I have reviewed the chart and agree that the record accurately reflects my personal performance of the history, physical exam, medical decision making, and the department course for this patient. I have also personally directed, reviewed, and agree with the discharge instructions and disposition.
[2017-01-12 05:46] VITALS: BP 141/88; PULSE 101; RESP 18
[2017-01-12 06:31] VITALS: O2SAT 97
== END 2017-01-12 05:51 | disposition home or self-care (01) ==
LOC: C.ER 01:51
DX: R11.10 Vomiting, unspecified (principal); F44.9 Dissociative and conversion disorder, unspecified
CPT/HCPCS: 80053; 82009; 85025; 96361; 96374; 96375; 96376; 99285; J2405; J7040

== ENCOUNTER 2017-01-20 01:35 | Emergency (ER) | payer MEDICAID ==
[2017-01-20 01:36] VITALS: BMI 26.4
[2017-01-20] MEDS ORDERED: Sodium Chloride 0.9% 1,000 ML IV ONE (01:54)
--- NOTE | 2017-01-20 01:57 | C.PDOC ---
History Of Present Illness Patient presents to the ER with a complaint of hypoglycemia and vomiting. Patient has had numerous recent admission encompassing almost the last 4 weeks, during which she had extensive inpatient evaluations that were significant for conversion disorder, depression, gastroparesis, and anxiety. At home patient is known to take extra insulin or gulp down juice or sugar water to manipulate her blood sugar levels. EMS found patient with a blood sugar of 29 at home, she was given 2 amps of glucagon and in the ED her blood sugar is 99. In the ER, patient is maliciously attempting to wretch. Patient has not verbalized any other complaints at this time. Time Seen by Provider: 01/20/17 01:48 Chief Complaint (Nursing): GI Problem History Per: Patient History/Exam Limitations: no limitations Onset/Duration Of Symptoms: Hrs Current Symptoms Are (Timing): Still Present Suicide/Self Injury Attempted (Context): None Modifying Factor(s): None Severity: Mild Pain Scale Rating Of: 4 Associated Symptoms: denies: Suicidal Thoughts, Suicidal Plan Involuntary Hold By: None Recent travel outside of the [place]: No Past Medical History Reviewed: Historical Data, Nursing Documentation, Vital Signs Vital Signs: Last Vital Signs Temp Pulse 111 H 01/20/17 01:40 Resp 20 01/20/17 01:40 BP 178/122 H 01/20/17 01:40 Pulse Ox 97 01/20/17 01:57 - Medical History PMH: Anemia, Anxiety, Depression, Diabetes, HTN, Seizures - [facility] Procedures EXCISION OF STOMACH, ENDO, DIAGN (11/02/16) INSERTION OF INFUSION DEV INTO L SUBCLAV VEIN, PERC APPROACH (10/28/16) INSERTION OF INFUSION DEV INTO SUP VENA CAVA, PERC APPROACH (11/02/16) INTRODUCTION OF NUTRITIONAL INTO PERIPH VEIN, PERC APPROACH (10/16/16) ULTRASONOGRAPHY OF SUPERIOR VENA CAVA, GUIDANCE (10/16/16) Family History: States: Unknown Family Hx - Social History Hx Alcohol Use: No Hx Substance Use: No - Immunization History Hx Tetanus Toxoid Vaccination: No Hx Influenza Vaccination: Yes Hx Pneumococcal Vaccination: Yes Review Of Systems Constitutional: Negative for: Fever, Chills Gastrointestinal: Positive for: Vomiting. Negative for: Diarrhea Genitourinary: Negative for: Dysuria, Hematuria Physical Exam - Physical Exam Appears: Non-toxic, No Acute Distress Skin: Warm, Dry Head: Normacephalic Oral Mucosa: Moist Chest: Symmetrical Cardiovascular: Rhythm Regular Respiratory: No Rales, No Rhonchi, No Wheezing Gastrointestinal/Abdominal: Soft, No Tenderness Neurological/Psych: Oriented x3 ED Course And Treatment O2 Sat by Pulse Oximetry: 97 (Room air) Pulse Ox Interpretation: Normal Progress Note: Blood work and urinalysis ordered. Zofran and IV fluids administered. Disposition - Disposition Forms: [employer] (Serbian) - Scribe Statement The provider has reviewed the documentation as recorded by the Scribe Yao Varela All medical record entries made by the Scribe were at my direction and personally dictated by me. I have reviewed the chart and agree that the record accurately reflects my personal performance of the history, physical exam, medical decision making, and the department course for this patient. I have also personally directed, reviewed, and agree with the discharge instructions and disposition.
--- NOTE | 2017-01-20 01:59 | C.PDOC ---
History Of Present Illness Patient presents to the ER with a complaint of hypoglycemia and vomiting. Patient has had numerous recent admission encompassing almost the last 4 weeks, during which she had extensive inpatient evaluations that were significant for conversion disorder, depression, gastroparesis, and anxiety. At home patient is known to take extra insulin or gulp down juice or sugar water to manipulate her blood sugar levels. EMS found patient with a blood sugar of 29 at home, she was given 2 amps of glucagon and in the ED her blood sugar is 99. In the ER, patient is attempting to wretch. Patient has not verbalized any other complaints at this time. Catrachito also gave the pt for sugar of 154 20 lentus and 10 units novolog. Time Seen by Provider: 01/20/17 01:48 Chief Complaint (Nursing): GI Problem History Per: Patient History/Exam Limitations: no limitations Onset/Duration Of Symptoms: Hrs Current Symptoms Are (Timing): Still Present Severity: Mild Pain Scale Rating Of: 4 Current Diabetic Medications: Insulin Associated Infectious Symptoms: Vomiting Treatment Prior To Provider Evaluation: Glucagon Given Response To Treatment: Good Response Recent travel outside of the [place]: No Past Medical History Reviewed: Historical Data, Nursing Documentation, Vital Signs Vital Signs: Last Vital Signs Temp Pulse 85 01/20/17 05:35 Resp 13 01/20/17 05:35 BP 125/79 01/20/17 05:35 Pulse Ox 99 01/20/17 05:35 - Medical History PMH: Anemia, Anxiety, Depression, Diabetes, HTN, Seizures Surgical History: No Surg Hx - [facility] Procedures EXCISION OF STOMACH, ENDO, DIAGN (11/02/16) INSERTION OF INFUSION DEV INTO L SUBCLAV VEIN, PERC APPROACH (10/28/16) INSERTION OF INFUSION DEV INTO SUP VENA CAVA, PERC APPROACH (11/02/16) INTRODUCTION OF NUTRITIONAL INTO PERIPH VEIN, PERC APPROACH (10/16/16) ULTRASONOGRAPHY OF SUPERIOR VENA CAVA, GUIDANCE (10/16/16) Family History: States: No Known Family Hx - Social History Hx Alcohol Use: No Hx Substance Use: No - Immunization History Hx Tetanus Toxoid Vaccination: No Hx Influenza Vaccination: Yes Hx Pneumococcal Vaccination: Yes Review Of Systems Constitutional: Negative for: Fever, Chills Gastrointestinal: Positive for: Vomiting. Negative for: Abdominal Pain Physical Exam - Physical Exam Appears: Non-toxic, No Acute Distress Skin: Warm, Dry Head: Normacephalic Oral Mucosa: Moist Chest: Symmetrical Cardiovascular: Rhythm Regular Respiratory: No Rales, No Rhonchi, No Wheezing Gastrointestinal/Abdominal: Soft, No Tenderness Neurological/Psych: Oriented x3 ED Course And Treatment - Laboratory Results Result Diagrams: 01/20/17 02:05 01/20/17 03:41 O2 Sat by Pulse Oximetry: 97 (Room air) Pulse Ox Interpretation: Normal Progress Note: Blood work and urinalysis ordered. Zofran and IV fluids administered. Reevaluation Time: 06:01 Reassessment Condition: Improved Disposition Counseled Patient/Family Regarding: Studies Performed, Diagnosis, Need For Followup - Disposition Referrals: Reza King Jr., MD [Medical Doctor] - Disposition: HOME/ ROUTINE Disposition Time: 01:54 Condition: FAIR Additional Instructions: Please do accu-checks at least 4 times a day. Do not take insulin for blood sugar lof 150 or less Prescriptions: Ondansetron ODT [Zofran ODT] 1 odt PO BID PRN #15 odt PRN Reason: Nausea/Vomiting Instructions: Diabetic Hypoglycemia (DC) Forms: [employer] (Ukrainian) - Clinical Impression Clinical Impression: Hypoglycemia - Scribe Statement The provider has reviewed the documentation as recorded by the Scribe Yao Varela All medical record entries made by the Scribe were at my direction and personally dictated by me. I have reviewed the chart and agree that the record accurately reflects my personal performance of the history, physical exam, medical decision making, and the department course for this patient. I have also personally directed, reviewed, and agree with the discharge instructions and disposition.
[2017-01-20 02:08] LABS: BASO # 0.1 K/uL (0.0-0.2); BASO % 0.9 % (0.0-2.0); EOS # 0.2 K/uL (0.0-0.7); EOS % 2.7 % (0.0-4.0); HEMATOCRIT 35.1 % (34.0-47.0); LYMPH # 2.7 K/uL (1.0-4.3); MEAN CELL VOLUME 84.8 fL (81.0-99.0); MEAN CORPUSCULAR HEMOGLOBIN 28.1 pg (27.0-31.0); MEAN CORPUSCULAR HGB CONC 33.2 g/dL (33.0-37.0); MEAN PLATELET VOLUME 9.3 fL (7.2-11.7); MONO # 0.6 K/uL (0.0-0.8); MONO % 8.1 % (0.0-10.0); RED CELL DISTRIBUTION WIDTH 16.1 % (11.5-14.5); WHITE BLOOD COUNT 7.3 K/uL (4.8-10.8)
[2017-01-20] MEDS ORDERED: Sodium Chloride 0.9% 1,000 ML ONE (02:08)
[2017-01-20 02:42] LABS: ABG ALLEN TEST POSITIVE; DRAW SITE RR
[2017-01-20 03:48] LABS: CHLORIDE 99 mmol/L (98-107)
[2017-01-20 03:49] LABS: POTASSIUM 4.3 mmol/L (3.6-5.2); SODIUM 134 mmol/L (132-148)
[2017-01-20 03:51] LABS: ALB/GLOB RATIO 0.7 (1.0-2.1); ALKALINE PHOSPHATASE 67 U/L (38-126); ALT/SGPT 32 U/L (9-52); AST/SGOT 27 U/L (14-36); BILIRUBIN,TOTAL < 0.1 mg/dL (0.2-1.3); BLOOD UREA NITROGEN 15 mg/dL (7-17); CARBON DIOXIDE 27 mmol/L (22-30); GFR AFRICAN-AMERICAN 55; TOTAL PROTEIN 5.4 g/dL (6.3-8.3)
[2017-01-20 03:52] LABS: GLUCOSE,RANDOM 173 mg/dL (65-105)
[2017-01-20 04:46] LABS: RBC URINE 1 /hpf (0-3); URINE BACTERIA RARE (<OCC); URINE BILIRUBIN NEGATIVE (NEGATIVE); URINE BLOOD NEGATIVE (NEGATIVE); URINE COLOR Straw (YELLOW); URINE GLUCOSE (UA) 1+ mg/dL (Normal); URINE KETONE NEGATIVE (NEGATIVE); URINE LEUKOCYTE ESTERASE NEG Leu/uL (Negative); URINE PROTEIN 3+ mg/dL (NEGATIVE); URINE UROBILINOGEN NORMAL mg/dL (0.2-1.0); WBC URINE 2 /hpf (0-5)
[2017-01-20 05:36] VITALS: BP 125/79; PULSE 85; RESP 13
[2017-01-20] MEDS ORDERED: Dextrose 50% SYRINGE Inj (50 ml) IV STA (05:44)
[2017-01-20] MEDS ORDERED: Dextrose 50% SYRINGE Inj (50 ml) ONE (05:49)
[2017-01-20 06:04] VITALS: O2SAT 97
== END 2017-01-20 06:40 | disposition home or self-care (01) ==
LOC: C.ER 01:35
DX: E11.649 Type 2 diabetes mellitus with hypoglycemia without coma (principal); Z79.4 Long term (current) use of insulin
CPT/HCPCS: 36600; 80053; 80324; 80345; 80346; 80349; 80353; 80358; 80361; 81001; 82009; 82803; 82948; 83525; 83690; 83992; 84681; 84703; 85025; 96361; 96374; 96375; 99285; J2405; J7040

== ENCOUNTER 2017-01-27 16:25 | Observation (INO) | payer MEDICAID ==
[2017-01-27 16:26] VITALS: BMI 26.4
[2017-01-27] MEDS ORDERED: Dextrose 50% SYRINGE Inj (50 ml) ONE ×3 (16:36→18:21)
[2017-01-27] MEDS ORDERED: Dextrose 50% SYRINGE Inj (50 ml) IV STA ×3 (16:55→18:19)
[2017-01-27 17:24] LABS: BASO # 0.1 K/uL (0.0-0.2); BASO % 0.7 % (0.0-2.0); EOS # 0.2 K/uL (0.0-0.7); EOS % 2.3 % (0.0-4.0); HEMATOCRIT 30.4 % (34.0-47.0); LYMPH # 2.8 K/uL (1.0-4.3); LYMPH % 26.5 % (20.0-40.0); MEAN CELL VOLUME 84.1 fL (81.0-99.0); MEAN CORPUSCULAR HEMOGLOBIN 27.9 pg (27.0-31.0); MEAN CORPUSCULAR HGB CONC 33.1 g/dL (33.0-37.0); MEAN PLATELET VOLUME 8.7 fL (7.2-11.7); MONO # 0.9 K/uL (0.0-0.8); MONO % 8.9 % (0.0-10.0); NRBC % 0.1 % (0.0-2.0); RED CELL DISTRIBUTION WIDTH 15.3 % (11.5-14.5); WHITE BLOOD COUNT 10.4 K/uL (4.8-10.8)
[2017-01-27 17:29] LABS: CHLORIDE 99 mmol/L (98-107)
[2017-01-27 17:30] LABS: POTASSIUM 3.5 mmol/L (3.6-5.2); SODIUM 133 mmol/L (132-148)
[2017-01-27 17:32] LABS: BILIRUBIN,TOTAL 0.3 mg/dL (0.2-1.3); CARBON DIOXIDE 26 mmol/L (22-30); GFR AFRICAN-AMERICAN 41
[2017-01-27 17:33] LABS: ALKALINE PHOSPHATASE 75 U/L (38-126); ALT/SGPT 26 U/L (9-52); AST/SGOT 24 U/L (14-36); BLOOD UREA NITROGEN 25 mg/dL (7-17); CALCIUM 9.1 mg/dl (8.6-10.4); TOTAL PROTEIN 6.2 g/dL (6.3-8.3)
[2017-01-27 17:35] LABS: GLUCOSE,RANDOM < 20 mg/dL (65-105)
--- NOTE | 2017-01-27 17:46 | RAD ---
HISTORY: abd pain COMPARISON: Chest x-ray performed 01/05/17 TECHNIQUE: Chest, one view. FINDINGS: LUNGS: No focal consolidation. Please note that chest x-ray has limited sensitivity for the detection of pulmonary masses. PLEURA: No significant pleural effusion identified. No definite pneumothorax . CARDIOVASCULAR: Heart size appears within normal limits. OSSEOUS STRUCTURES: No acute osseous abnormality identified. VISUALIZED UPPER ABDOMEN: Unremarkable. OTHER FINDINGS: None. IMPRESSION: No focal consolidation, significant pleural effusion, or definite pneumothorax identified.
--- NOTE | 2017-01-27 18:09 | C.PDOC ---
History Of Present Illness 26 y/o female, with past medical history of diabetes, HTN, is brought to ED by EMS for evaluation of low blood sugar level of less than 20mg/dL prior to arrival. As per mother, pt became unresponsive at home and EMS was called. Pt was given D50 amp in the ER x 2 and became responsive thereafter. Pt is compliant with all her medications. Otherwise, denies chest pain, shortness of breath, cough, fever, chills, or any other associated symptoms at this time. Time Seen by Provider: 01/27/17 16:55 Chief Complaint (Nursing): Medical Clearance History Per: Patient History/Exam Limitations: no limitations Onset/Duration Of Symptoms: Hrs Current Symptoms Are (Timing): Still Present Severity: None Pain Scale Rating Of: 0 Recent travel outside of the [place]: No Additional History Per: Patient Past Medical History Reviewed: Historical Data, Nursing Documentation, Vital Signs Vital Signs: Last Vital Signs Temp 98.1 F 01/27/17 22:32 Pulse 100 H 01/27/17 22:32 Resp 15 01/27/17 22:32 BP 159/116 H 01/27/17 22:32 Pulse Ox 100 01/27/17 22:53 - Medical History PMH: Anemia, Anxiety, Depression, Diabetes, HTN, Seizures Denies: Chronic Kidney Disease - [facility] Procedures EXCISION OF STOMACH, ENDO, DIAGN (11/02/16) INSERTION OF INFUSION DEV INTO L SUBCLAV VEIN, PERC APPROACH (10/28/16) INSERTION OF INFUSION DEV INTO SUP VENA CAVA, PERC APPROACH (11/02/16) INTRODUCTION OF NUTRITIONAL INTO PERIPH VEIN, PERC APPROACH (10/16/16) ULTRASONOGRAPHY OF SUPERIOR VENA CAVA, GUIDANCE (10/16/16) Family History: States: Unknown Family Hx - Social History Hx Alcohol Use: No Hx Substance Use: No - Immunization History Hx Tetanus Toxoid Vaccination: No Hx Influenza Vaccination: Yes Hx Pneumococcal Vaccination: Yes Review Of Systems Except As Marked, All Systems Reviewed And Found Negative. Constitutional: Negative for: Fever, Chills Cardiovascular: Negative for: Chest Pain, Palpitations, Edema, Light Headedness Respiratory: Negative for: Cough, Shortness of Breath, Pleuritic Pain Gastrointestinal: Negative for: Nausea, Vomiting, Abdominal Pain, Diarrhea Genitourinary: Negative for: Dysuria, Frequency, Hematuria Musculoskeletal: Negative for: Neck Pain, Back Pain Neurological: Negative for: Headache, Dizziness Physical Exam - Physical Exam Appears: Non-toxic, No Acute Distress Skin: Normal Color, Warm, Dry Head: Atraumatic, Normacephalic Eye(s): bilateral: Normal Inspection, PERRL, EOMI Nose: Normal Oral Mucosa: Moist Neck: Supple Chest: Symmetrical Cardiovascular: Rhythm Regular, No Murmur Respiratory: Normal Breath Sounds, No Rales, No Rhonchi, No Wheezing Gastrointestinal/Abdominal: Soft, No Tenderness Back: No CVA Tenderness Extremity: Normal ROM, No Pedal Edema, No Deformity Extremity: Bilateral: Atraumatic, Normal Color And Temperature Pulses: Left Radial: Normal, Right Radial: Normal Neurological/Psych: Oriented x3, Normal Speech, Normal Cognition ED Course And Treatment - Laboratory Results Result Diagrams: 01/27/17 17:15 01/27/17 17:15 ECG: Interpreted By Me, Viewed By Me ECG Rhythm: Sinus Tachycardia ECG Interpretation: Normal Interpretation Of ECG: Normal intervals, normal axis. Non-specific T wave changes. Rate From EC (bpm) O2 Sat by Pulse Oximetry: 100 (RA) Pulse Ox Interpretation: Normal - Radiology CXR: Interpreted by Me, Viewed By Me, Read By Radiologist CXR Interpretation: Yes: No Acute Disease Medical Decision Making Medical Decision Making: Initial Impression: Hypoglycemia Blood work, UA, EKG, CXR ordered and reviewed. Patient was given Dextrose IV. During observation, patient became unresponsive again with decrease blood sugar. Another amp of d50 given. cxr - prel. nad. Case discussed with Dr. King, who advised admission under med-surg observation for diagnosis of hypoglycemia. Patient was evaluated by medical office professional instructor. Disposition Discussed With : Reza King Jr. Doctor Will See Patient In The: Hospital Counseled Patient/Family Regarding: Studies Performed, Diagnosis - Disposition Disposition: HOSPITALIZED Disposition Time: 21:17 Condition: FAIR - Clinical Impression Clinical Impression: Hypoglycemia - Scribe Statement The provider has reviewed the documentation as recorded by the Monoibelvis Coker All medical record entries made by the Scribe were at my direction and personally dictated by me. I have reviewed the chart and agree that the record accurately reflects my personal performance of the history, physical exam, medical decision making, and the department course for this patient. I have also personally directed, reviewed, and agree with the discharge instructions and disposition.
[2017-01-27 21:41] LABS: RBC URINE 2 /hpf (0-3); URINE BACTERIA RARE (<OCC); URINE BILIRUBIN NEGATIVE (NEGATIVE); URINE BLOOD NEGATIVE (NEGATIVE); URINE COLOR Straw (YELLOW); URINE GLUCOSE (UA) 2+ mg/dL (Normal); URINE KETONE NEGATIVE (NEGATIVE); URINE LEUKOCYTE ESTERASE 1+ Leu/uL (Negative); URINE PROTEIN 3+ mg/dL (NEGATIVE); URINE UROBILINOGEN NORMAL mg/dL (0.2-1.0); WBC URINE 12 /hpf (0-5)
--- NOTE | 2017-01-27 23:22 | CP.PCM.HP ---
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 She presents to the ED after experiencing an episode of hypoglycemia with seizure around 2-2:30 PM today. She states her blood sugar was "read as high" at home this afternoon "which means it must have been over 500," which prompted her to take 15 units of insulin at home without eating. She felt nauseous, lightheaded, and dizzy so laid down to rest. She then had two sequential seizure episodes characterized by convulsions for a few seconds each. The event was witnessed by patient's mother who gave her some sugar and apple sauce. Blood glucose at home was 24 at this time and ambulance was called. Patient given D50 amp in the field for blood glucose <20 to which she responded. Patient currently complains of nausea and non-bloody vomiting x4, and headache. Denies trauma and recent illness. PMD: Dr. 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, HTN, and gastroparesis; [as per EMR: acute renal failure, CKD stage 3, anemia, cholelithiasis, gastritis, upper GI bleed, depression, benzodiazepine withdrawal] SurgHx: denies FamHx: denies SocialHx: lives with mother; denies tobacco/alcohol/illicit drug use; unemployed Allergies: NKDA Home Meds: Insulin (Novolog), Nifedipine ER 30 mg PO daily, Gabapentin 300 mg PO tid for seizure, Metaclopramide 5 mg PO tidac, Zofran ODT PO bid PRN, Ferrous sulfate 325 mg PO bid, Vit B12 1000 mcg PO daily Present on Admission - Present on Admission Any Indicators Present on Admission: Yes History of Uncontrolled Diabetes: Yes Review of Systems - Constitutional Constitutional: Headache. absent: Chills, Fever - EENT Ears: Dizziness - Cardiovascular Cardiovascular: absent: Chest Pain, Dyspnea, Palpitations - Respiratory Respiratory: absent: Cough, Dyspnea - Gastrointestinal Gastrointestinal: Nausea, Vomiting. absent: Abdominal Pain, Constipation, Diarrhea, Hematemesis - Genitourinary Genitourinary: absent: Dysuria, Hematuria, Urinary Frequency - Neurological Neurological: Dizziness, Headaches Past Patient History - Infectious Disease Hx of Infectious Diseases: None - Past Medical History & Family History Past Medical History?: Yes - Past Social History Smoking Status: Former Smoker - CARDIAC Hx Hypertension: Yes - PULMONARY Hx Respiratory Disorders: No - NEUROLOGICAL Hx Seizures: Yes - HEENT Hx HEENT Problems: Yes Other/Comment: blurred vision both eyes uses eyeglasses - RENAL Hx Chronic Kidney Disease: No - ENDOCRINE/METABOLIC Hx Endocrine Disorders: Yes Hx Diabetes Mellitus Type 1: Yes - HEMATOLOGICAL/ONCOLOGICAL Hx Anemia: Yes - INTEGUMENTARY Hx Dermatological Problems: No - MUSCULOSKELETAL/RHEUMATOLOGICAL Hx Musculoskeletal Disorders: Yes Hx Falls: Yes - GASTROINTESTINAL Hx Gastrointestinal Disorders: Yes (SEE COMMENT) Other/Comment: gastroparesis - GENITOURINARY/GYNECOLOGICAL Hx Genitourinary Disorders: No - PSYCHIATRIC Hx Anxiety: Yes Hx Depression: Yes Hx Substance Use: No - SURGICAL HISTORY Hx Surgeries: Yes - ANESTHESIA Hx Anesthesia: Yes Hx Anesthesia Reactions: No Hx Malignant Hyperthermia: No Meds Allergies/Adverse Reactions: Allergies Allergy/AdvReac Type Severity Reaction Status Date / Time No Known Allergies Allergy Verified 01/20/17 02:12 Physical Exam - Head Exam Head Exam: ATRAUMATIC, NORMAL INSPECTION - Eye Exam Eye Exam: EOMI, Normal appearance - ENT Exam ENT Exam: Mucous Membranes Moist - Respiratory Exam Respiratory Exam: Clear to Auscultation Bilateral, NORMAL BREATHING PATTERN. absent: Rales, Rhonchi, Wheezes, Respiratory Distress - Cardiovascular Exam Cardiovascular Exam: REGULAR RHYTHM, RRR, +S1, +S2 - GI/Abdominal Exam GI & Abdominal Exam: Normal Bowel Sounds, Soft, Tenderness (patient states abdomen is sore with palpation of all quadrants). absent: Distended, Firm - Extremities Exam Extremities exam: Positive for: normal inspection, pedal pulses present. Negative for: calf tenderness, pedal edema, tenderness - Neurological Exam Neurological exam: Alert, Oriented x3 - Psychiatric Exam Psychiatric exam: Normal Affect, Normal Mood - Skin Skin Exam: Dry, Intact, Normal Color, Warm Results - Vital Signs Recent Vital Signs: Last Vital Signs Temp 98.1 F 01/27/17 22:32 Pulse 100 H 01/27/17 22:32 Resp 93 H 01/27/17 23:01 BP 154/93 H 01/27/17 23:01 Pulse Ox 96 01/27/17 23:01 - Labs Result Diagrams: 01/27/17 17:15 01/27/17 17:15 Labs: Laboratory Results - last 24 hr 01/27/17 01/27/17 01/27/17 17:15 17:15 17:15 WBC 10.4 RBC 3.61 L Hgb 10.1 L Hct 30.4 L MCV 84.1 MCH 27.9 MCHC 33.1 RDW 15.3 H Plt Count 412 H MPV 8.7 Neut % (Auto) 61.6 Lymph % (Auto) 26.5 Keith % (Auto) 8.9 Eos % (Auto) 2.3 Baso % (Auto) 0.7 Neut # 6.4 Lymph # 2.8 Keith # 0.9 H Eos # 0.2 Baso # 0.1 Sodium 133 Potassium 3.5 L Chloride 99 Carbon Dioxide 26 Anion Gap 11 BUN 25 H Creatinine 1.8 H Est GFR ( Amer) 41 Est GFR (Non-Af Amer) 34 POC Glucose (mg/dL) 210 H Random Glucose < 20 L* D Calcium 9.1 Total Bilirubin 0.3 AST 24 ALT 26 Alkaline Phosphatase 75 Total Protein 6.2 L Albumin 3.1 L D Globulin 3.1 Albumin/Globulin Ratio 1.0 Lipase 20 L Beta HCG, Quant Urine Color Urine Clarity Urine pH Ur Specific [place] Urine Protein Urine Glucose (UA) Urine Ketones Urine Blood Urine Nitrate Urine Bilirubin Urine Urobilinogen Ur Leukocyte Esterase Urine WBC (Auto) Urine RBC (Auto) Ur Squamous Epith Cells Urine Bacteria Urine HCG, Qual 01/27/17 01/27/17 01/27/17 18:16 19:08 20:27 WBC RBC Hgb Hct MCV MCH MCHC RDW Plt Count MPV Neut % (Auto) Lymph % (Auto) Keith % (Auto) Eos % (Auto) Baso % (Auto) Neut # Lymph # Keith # Eos # Baso # Sodium Potassium Chloride Carbon Dioxide Anion Gap BUN Creatinine Est GFR ( Amer) Est GFR (Non-Af Amer) POC Glucose (mg/dL) 56 L 148 H 94 Random Glucose Calcium Total Bilirubin AST ALT Alkaline Phosphatase Total Protein Albumin Globulin Albumin/Globulin Ratio Lipase Beta HCG, Quant Urine Color Urine Clarity Urine pH Ur Specific [place] Urine Protein Urine Glucose (UA) Urine Ketones Urine Blood Urine Nitrate Urine Bilirubin Urine Urobilinogen Ur Leukocyte Esterase Urine WBC (Auto) Urine RBC (Auto) Ur Squamous Epith Cells Urine Bacteria Urine HCG, Qual 01/27/17 01/27/17 21:28 21:28 WBC RBC Hgb Hct MCV MCH MCHC RDW Plt Count MPV Neut % (Auto) Lymph % (Auto) Keith % (Auto) Eos % (Auto) Baso % (Auto) Neut # Lymph # Keith # Eos # Baso # Sodium Potassium Chloride Carbon Dioxide Anion Gap BUN Creatinine Est GFR ( Amer) Est GFR (Non-Af Amer) POC Glucose (mg/dL) Random Glucose Calcium Total Bilirubin AST ALT Alkaline Phosphatase Total Protein Albumin Globulin Albumin/Globulin Ratio Lipase Beta HCG, Quant < 2.39 Urine Color Straw Urine Clarity Clear Urine pH 7.0 Ur Specific [place] 1.010 Urine Protein 3+ H Urine Glucose (UA) 2+ H Urine Ketones Negative Urine Blood Negative Urine Nitrate Negative Urine Bilirubin Negative Urine Urobilinogen Normal Ur Leukocyte Esterase 1+ H Urine WBC (Auto) 12 H Urine RBC (Auto) 2 Ur Squamous Epith Cells 6 H Urine Bacteria Rare Urine HCG, Qual Negative Assessment & Plan (1) Hypoglycemia Assessment and Plan: Secondary to uncontrolled diabetes mellitus, type 1. Started ISS (low) Started D5W 1/2 NS @80cc/hr Monitor blood glucose, accuchecks HgbA1c (01/02/17) 7.3 HgbA1c (10/22/16) 9.2 Status: Acute (2) Uncontrolled diabetes mellitus Assessment and Plan: Started ISS (low) Monitor blood glucose, accuchecks HgbA1c (01/02/17) 7.3 HgbA1c (10/22/16) 9.2 Status: Acute Priority: High (3) Diabetic gastroparesis Assessment and Plan: Continue home medication- Reglan Status: Acute (4) HTN (hypertension) Assessment and Plan: Continue home medication- Nifedipine. Status: Acute (5) History of seizures Assessment and Plan: Patient reports previously taking Keppra for seizures, but discontinued because she noticed seizure activity would occur only during hypoglycemic episodes. Continue to monitor. Status: Acute (6) Prophylactic measure Assessment and Plan: SCDs Heart Healthy Diet Pepcid 20mg PO daily Heparin 5000 SC Activity as tolerated O2 via nasal cannula Status: Acute
[2017-01-27] MEDS: Dextrose 5%/0.45% NS 1,000 ML IV SCH (23:35)
[2017-01-28 00:49] VITALS: RESP 20
[2017-01-28] MEDS: (Novolin R) Insulin Human Regular 100 units/ml vial SC SCH ×3 (07:40→17:30)
[2017-01-28 08:37] LABS: BASO # 0.1 K/uL (0.0-0.2); BASO % 0.8 % (0.0-2.0); EOS # 0.1 K/uL (0.0-0.7); EOS % 1.3 % (0.0-4.0); HEMATOCRIT 31.5 % (34.0-47.0); LYMPH # 2.8 K/uL (1.0-4.3); LYMPH % 37.4 % (20.0-40.0); MEAN CELL VOLUME 84.7 fL (81.0-99.0); MEAN CORPUSCULAR HEMOGLOBIN 28.3 pg (27.0-31.0); MEAN CORPUSCULAR HGB CONC 33.4 g/dL (33.0-37.0); MEAN PLATELET VOLUME 8.6 fL (7.2-11.7); MONO # 0.4 K/uL (0.0-0.8); MONO % 5.8 % (0.0-10.0); WHITE BLOOD COUNT 7.5 K/uL (4.8-10.8)
[2017-01-28 08:55] LABS: POTASSIUM 4.7 mmol/L (3.6-5.2)
[2017-01-28 08:57] LABS: BILIRUBIN,TOTAL 0.3 mg/dL (0.2-1.3)
[2017-01-28 08:58] LABS: ALB/GLOB RATIO 0.9 (1.0-2.1); CALCIUM 8.6 mg/dl (8.6-10.4)
[2017-01-28] MEDS ORDERED: NIFEdipine 30 mg ER Tab PO SCH (10:00)
[2017-01-28] MEDS: Dextrose 5%/0.45% NS 1,000 ML IV SCH (12:38)
--- NOTE | 2017-01-28 15:30 | CARD ---
APPROVED REPORT EKG Measurement Heart [id number] <Conclusion> Sinus tachycardia Otherwise normal ECG
[2017-01-28 16:27] VITALS: BP 141/93; PULSE 90; TEMP 98.3; O2SAT 99
--- NOTE | 2017-01-28 16:45 | CP.PCM.DIS ---
Provider - Provider Date of Admission: 01/27/17 21:19 Attending physician: Reza King Jr, MD Time Spent in preparation of Discharge (in minutes): 35 Diagnosis - Discharge Diagnosis (1) Hypoglycemia Status: Resolved (2) Uncontrolled diabetes mellitus Status: Chronic Priority: High (3) Diabetic gastroparesis Status: Chronic (4) HTN (hypertension) Status: Chronic (5) History of seizures Status: Chronic (6) Prophylactic measure Status: Acute Hospital Course - Lab Results Lab Results: Most Recent Lab Values WBC 7.5 K/uL (4.8-10.8) 01/28/17 08:21 RBC 3.72 Mil/uL (3.80-5.20) L 01/28/17 08:21 Hgb 10.5 g/dL (11.0-16.0) L 01/28/17 08:21 Hct 31.5 % (34.0-47.0) L 01/28/17 08:21 MCV 84.7 fL (81.0-99.0) 01/28/17 08:21 MCH 28.3 pg (27.0-31.0) 01/28/17 08:21 MCHC 33.4 g/dL (33.0-37.0) 01/28/17 08:21 RDW 16.0 % (11.5-14.5) H 01/28/17 08:21 Plt Count 398 K/uL (130-400) 01/28/17 08:21 MPV 8.6 fL (7.2-11.7) 01/28/17 08:21 Neut % (Auto) 54.7 % (50.0-75.0) 01/28/17 08:21 Lymph % (Auto) 37.4 % (20.0-40.0) 01/28/17 08:21 [place] % (Auto) 5.8 % (0.0-10.0) 01/28/17 08:21 Eos % (Auto) 1.3 % (0.0-4.0) 01/28/17 08:21 Baso % (Auto) 0.8 % (0.0-2.0) 01/28/17 08:21 Neut # 4.1 K/uL (1.8-7.0) 01/28/17 08:21 Lymph # 2.8 K/uL (1.0-4.3) 01/28/17 08:21 [place] # 0.4 K/uL (0.0-0.8) 01/28/17 08:21 Eos # 0.1 K/uL (0.0-0.7) 01/28/17 08:21 Baso # 0.1 K/uL (0.0-0.2) 01/28/17 08:21 Sodium 131 mmol/L (132-148) L 01/28/17 08:21 Potassium 4.7 mmol/L (3.6-5.2) 01/28/17 08:21 Chloride 97 mmol/L (98-107) L 01/28/17 08:21 Carbon Dioxide 27 mmol/L (22-30) 01/28/17 08:21 Anion Gap 13 (10-20) 01/28/17 08:21 BUN 24 mg/dL (7-17) H 01/28/17 08:21 Creatinine 1.9 mg/dL (0.7-1.2) H 01/28/17 08:21 Est GFR ( Amer) 38 01/28/17 08:21 Est GFR (Non-Af Amer) 32 01/28/17 08:21 POC Glucose (mg/dL) 292 mg/dL (65-110) H 01/28/17 10:58 Random Glucose 192 mg/dL (65-105) H 01/28/17 08:21 Calcium 8.6 mg/dl (8.6-10.4) 01/28/17 08:21 Total Bilirubin 0.3 mg/dL (0.2-1.3) 01/28/17 08:21 AST 21 U/L (14-36) 01/28/17 08:21 ALT 28 U/L (9-52) 01/28/17 08:21 Alkaline Phosphatase 80 U/L (38-126) 01/28/17 08:21 Total Protein 6.0 g/dL (6.3-8.3) L 01/28/17 08:21 Albumin 2.9 g/dL (3.5-5.0) L 01/28/17 08:21 Globulin 3.1 gm/dL (2.2-3.9) 01/28/17 08:21 Albumin/Globulin Ratio 0.9 (1.0-2.1) L 01/28/17 08:21 Lipase 20 U/L (23-300) L 01/27/17 17:15 Beta HCG, Quant < 2.39 mIU/ML 01/27/17: Urine Color Straw (YELLOW) 01/27/17: Urine Clarity Clear (Clear) 01/27/17: Urine pH 7.0 (5.0-8.0) 01/27/17: Ur Specific [place] 1.010 (1.003-1.030) 01/27/17: Urine Protein 3+ mg/dL (NEGATIVE) H 01/27/17: Urine Glucose (UA) 2+ mg/dL (Normal) H 01/27/17: Urine Ketones Negative mg/dL (NEGATIVE) 01/27/17: Urine Blood Negative (NEGATIVE) 01/27/17: Urine Nitrate Negative (NEGATIVE) 01/27/17: Urine Bilirubin Negative (NEGATIVE) 01/27/17: Urine Urobilinogen Normal mg/dL (0.2-1.0) 01/27/17: Ur Leukocyte Esterase 1+ Kathy/uL (Negative) H 01/27/17: Urine WBC (Auto) 12 /hpf (0-5) H 01/27/17: Urine RBC (Auto) 2 /hpf (0-3) 01/27/17: Ur Squamous Epith Cells 6 /hpf (0-5) H 01/27/17: Urine Bacteria Rare (<OCC) 01/27/17: Urine HCG, Qual Negative (NEGATIVE) 01/27/17:28 - Hospital Course Hospital Course: On admission: "26 year old female with a past medical history of DM, seizures secondary to hypoglycemia, HTN, and gastroparesis. She presents to the ED after experiencing an episode of hypoglycemia with seizure around 2-2:30 PM today. She states her blood sugar was "read as high" at home this afternoon "which means it must have been over 500," which prompted her to take 15 units of insulin at home without eating. She felt nauseous, lightheaded, and dizzy so laid down to rest. She then had two sequential seizure episodes characterized by convulsions for a few seconds each. The event was witnessed by patient's mother who gave her some sugar and apple sauce. Blood glucose at home was 24 at this time and ambulance was called. Patient given D50 amp in the field for blood glucose <20 to which she responded. Patient currently complains of nausea and non-bloody vomiting x4, and headache. Denies trauma and recent illness." Hospital Course: Patient admitted for severe hypoglycemia with blood glucose<20 prior to arrival in ED and was initially unresponsive. Two ampules of D50 were given to normalize the patient's blood sugar. Patient became responsive at this point after the two ampules. Patient started on D5W 0.45% Normal Saline at rate 80 cc/hr upon admission. Patient's blood glucose improved and patient felt better by rounds today. Patient stable for discharge per Dr. King and will follow up with him in his office about the insulin pump to better manage her diabetes. This is a summary of the hospital course. For more information, refer to the medical records. Discharge Exam - Head Exam Head Exam: ATRAUMATIC, NORMOCEPHALIC - Eye Exam Eye Exam: EOMI, PERRL - ENT Exam ENT Exam: Mucous Membranes Moist - Respiratory Exam Respiratory Exam: Clear to PA & Lateral, NORMAL BREATHING PATTERN. absent: Rales, Rhonchi, Wheezes, Respiratory Distress - Cardiovascular Exam Cardiovascular Exam: REGULAR RHYTHM, +S1, +S2 - GI/Abdominal Exam GI & Abdominal Exam: Normal Bowel Sounds, Soft. absent: Tenderness - Extremities Exam Extremities exam: pedal pulses present - Neurological Exam Neurological exam: Alert, CN II-XII Intact, Oriented x3 - Psychiatric Exam Psychiatric exam: Normal Affect, Normal Mood - Skin Skin Exam: Dry, Intact, Normal Color, Warm Discharge Plan - Follow Up Plan Condition: STABLE Disposition: HOME/ ROUTINE Instructions: Heart Healthy Diet (DC), Diabetic Foot Care (DC), Diabetic Hypoglycemia (DC), Basic Carbohydrate Counting (DC), Meal Planning with the Plate Method (DC), Meal Planning with Diabetes Exchanges (DC) Additional Instructions: Please follow up with Dr. King in his office within 1 week. If there are any new or worsening symptoms, return to the emergency room. Referrals: Reza King Jr., MD [Medical Doctor] -
== END 2017-01-28 19:30 | disposition home or self-care (01) ==
LOC: C.ER 16:25 → C.9E 21:19 → C.6T 22:53
PROVIDERS: ADMIT Internal Medicine; ATTEND Internal Medicine
DX: E10.649 Type 1 diabetes mellitus with hypoglycemia without coma (principal); E10.43 Type 1 diabetes mellitus with diabetic autonomic (poly)neuropathy; K31.84 Gastroparesis; Z79.4 Long term (current) use of insulin; Z87.891 Personal history of nicotine dependence; G40.901 Epilepsy, unspecified, not intractable, with status epilepticus
CPT/HCPCS: 36415; 71010; 80053; 81001; 82948; 83690; 84702; 84703; 85025; 93005; 96374; 99285; G0378; J1644; J2405; J2765; J7042

== ENCOUNTER 2017-03-09 22:33 | Inpatient (IN) | payer MEDICAID ==
[2017-03-09 22:34] VITALS: BMI 26.4
[2017-03-09] MEDS ORDERED: Lactated Ringer's 1,000 ML IV STA (23:53)
--- NOTE | 2017-03-09 23:53 | C.PDOC ---
History Of Present Illness Pt presents with intractable nausea and vomiting after dinnere. Had an earlier episode of emesis in am, Not tolerating po. Mother at bedside Time Seen by Provider: 03/09/17 23:52 Chief Complaint (Nursing): GI Problem History Per: Patient History/Exam Limitations: no limitations Onset/Duration Of Symptoms: Hrs Current Symptoms Are (Timing): Still Present Context: Other Severity: Moderate Pain Scale Rating Of: 5 Location Of Pain/Discomfort: Diffuse Radiation Of Pain To:: None Quality Of Discomfort: Cramping Associated Symptoms: Nausea, Vomiting. denies: Fever, Chills Exacerbating Factors: denies: Cough Alleviating Factors: None Last Bowel Movement: Yesterday Recent travel outside of the [place]: No Additional History Per: Family Abnormal Vaginal Bleeding: No Past Medical History Reviewed: Historical Data, Nursing Documentation, Vital Signs Vital Signs: Last Vital Signs Temp 98.3 F 03/09/17 22:48 Pulse 110 H 03/09/17 23:33 Resp 22 03/09/17 23:33 BP 106/59 L 03/09/17 23:33 Pulse Ox 100 03/09/17 23:53 - Medical History PMH: Anemia, Anxiety, Depression, Diabetes, HTN, Seizures Denies: Chronic Kidney Disease - [facility] Procedures EXCISION OF STOMACH, ENDO, DIAGN (11/02/16) INSERTION OF INFUSION DEV INTO L SUBCLAV VEIN, PERC APPROACH (10/28/16) INSERTION OF INFUSION DEV INTO SUP VENA CAVA, PERC APPROACH (11/02/16) INTRODUCTION OF NUTRITIONAL INTO PERIPH VEIN, PERC APPROACH (10/16/16) ULTRASONOGRAPHY OF SUPERIOR VENA CAVA, GUIDANCE (10/16/16) Family History: States: No Known Family Hx - Social History Hx Alcohol Use: No Hx Substance Use: No - Immunization History Hx Tetanus Toxoid Vaccination: No Hx Influenza Vaccination: Yes Hx Pneumococcal Vaccination: Yes Physical Exam - Physical Exam Appears: In Acute Distress Skin: Warm, Dry Head: Normacephalic Eye(s): bilateral: Normal Inspection Oral Mucosa: Moist Tongue: Normal Appearing Lips: Normal Appearing Neck: Trachea Midline, Supple Chest: Symmetrical Cardiovascular: Rhythm Regular Respiratory: No Rales, No Rhonchi, No Wheezing Gastrointestinal/Abdominal: Soft, Tenderness (mild, diffuse), No Distention, No Guarding Back: Normal Inspection Extremity: Normal ROM Extremity: Bilateral: Atraumatic Pulses: Left Dorsalis Pedis: Normal, Right Dorsalis Pedis: Normal Neurological/Psych: Oriented x3, Normal Speech, Normal Cognition Gait: Steady ED Course And Treatment - Laboratory Results Result Diagrams: 03/10/17 00:13 03/10/17 00:13 O2 Sat by Pulse Oximetry: 100 Pulse Ox Interpretation: Normal Disposition Discussed With Dr.: Reza King Jr. Comment: accepted the pt on his service and took over the care at 1:20 AM Doctor Will See Patient In The: ED Counseled Patient/Family Regarding: Studies Performed, Diagnosis - Disposition Disposition: HOSPITALIZED Disposition Time: 23:53 Condition: GUARDED Forms: Stellaris ([place]an) - POA Present On Arrival: Poor Glycemic Control - Clinical Impression Clinical Impression: Gastrointestinal hemorrhage, Diabetic gastroparesis, Intractable vomiting Decision To Admit - Pt Status Changed To: Hospital Disposition Of: Inpatient - Admit Certification Admit to Inpatient:: After my assessment, the patient will require hospitalization for at least two midnights. This is because of the severity of symptoms shown, intensity of services needed, and/or the medical risk in this patient being treated as an outpatient. - InPatient: Physician Admission Certification:: After my assessment, the patient will require hospitalization for at least two midnights. This is because of the severity of symptoms shown, intensity of services needed, and/or the medical risk in this patient being treated as an outpatient. - . Bed Request Type: Regular Admitting Physician: Reza King Jr. Patient Diagnosis: Gastrointestinal hemorrhage, Diabetic gastroparesis, Intractable vomiting
[2017-03-10] MEDS ORDERED: Lactated Ringer's 1,000 ML ONE ×2 (00:08→03:34)
[2017-03-10 00:30] LABS: BASO # 0.1 K/uL (0.0-0.2); MONO # 0.2 K/uL (0.0-0.8); NRBC % 0.1 % (0.0-2.0)
[2017-03-10 00:47] LABS: ALB/GLOB RATIO 0.9 (1.0-2.1); ALKALINE PHOSPHATASE 121 U/L (38-126); ALT/SGPT 28 U/L (9-52); AST/SGOT 25 U/L (14-36); BILIRUBIN,TOTAL 0.4 mg/dL (0.2-1.3); BLOOD UREA NITROGEN 28 mg/dL (7-17); CALCIUM 8.7 mg/dl (8.6-10.4); CARBON DIOXIDE 22 mmol/L (22-30); CHLORIDE 103 mmol/L (98-107); GFR AFRICAN-AMERICAN 28; GLUCOSE,RANDOM 213 mg/dL (65-105); SODIUM 135 mmol/L (132-148); TOTAL PROTEIN 7.9 g/dL (6.3-8.3)
[2017-03-10 00:52] LABS: BASO % 0.8 % (0.0-2.0); EOS % 0.2 % (0.0-4.0); HEMATOCRIT 36.5 % (34.0-47.0); LYMPH # 1.1 K/uL (1.0-4.3); LYMPH % 9.9 % (20.0-40.0); MEAN CELL VOLUME 85.5 fL (81.0-99.0); MEAN CORPUSCULAR HEMOGLOBIN 27.8 pg (27.0-31.0); MEAN CORPUSCULAR HGB CONC 32.5 g/dL (33.0-37.0); MONO % 1.7 % (0.0-10.0); PLATELET COUNT 480 K/uL (130-400); RED CELL DISTRIBUTION WIDTH 15.4 % (11.5-14.5); WHITE BLOOD COUNT 10.6 K/uL (4.8-10.8)
[2017-03-10] MEDS ORDERED: Pantoprazole 80 MG in Sodium Chloride 0.9% 100 ML IVP SCH ×2 (02:15→08:30)
[2017-03-10] MEDS ORDERED: (Novolin R) Insulin Human Regular 100 units/ml vial SC SCH (02:15)
--- NOTE | 2017-03-10 02:15 | CP.PCM.HP ---
History of Present Illness - History of Present Illness History of Present Illness: CC: Intractable nausea and vomiting. HPI: 26 year old female with a past medical history of DM, seizures secondary to hypoglycemia, HTN, and gastroparesis. She presents to the ED because she cannot stop vomiting. Her vomiting started yesterday morning after breakfast. She had a few episodes of vomiting throughout the day. Then she tried to eat dinner and had 5+ episodes of vomiting after. There is dark red blood in the vomit. Patient unwilling to answer most questions but does complain of epigastric abdominal pain. History obtained from mother and Aunt at bedside and EMR. PMD: Dr. 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, HTN, and gastroparesis; [as per EMR: acute renal failure, CKD stage 3, anemia, cholelithiasis, gastritis, upper GI bleed, depression, benzodiazepine withdrawal] SurgHx: denies FamHx: denies SocialHx: lives with mother; denies tobacco/alcohol/illicit drug use; unemployed Allergies: NKDA Home Meds: Levetiracetam 250mg BID, Metoclopramide 5mg BID, Nifedipine ER 30mg daily Present on Admission - Present on Admission Any Indicators Present on Admission: No History of DVT/PE: No History of Uncontrolled Diabetes: Yes Urinary Catheter: No Decubitus Ulcer Present: No Review of Systems - Review of Systems Systems not reviewed;Unavailable: Uncooperative - Gastrointestinal Gastrointestinal: Abdominal Pain, Nausea, Vomiting Past Patient History - Infectious Disease Hx of Infectious Diseases: None - Past Medical History & Family History Past Medical History?: Yes - Past Social History Smoking Status: Former Smoker - CARDIAC Hx Hypertension: Yes - PULMONARY Hx Respiratory Disorders: No - NEUROLOGICAL Hx Seizures: Yes - HEENT Hx HEENT Problems: Yes Other/Comment: blurred vision both eyes uses eyeglasses - RENAL Hx Chronic Kidney Disease: No - ENDOCRINE/METABOLIC Hx Endocrine Disorders: Yes Hx Diabetes Mellitus Type 1: Yes - HEMATOLOGICAL/ONCOLOGICAL Hx Anemia: Yes - INTEGUMENTARY Hx Dermatological Problems: No - MUSCULOSKELETAL/RHEUMATOLOGICAL Hx Musculoskeletal Disorders: Yes Hx Falls: Yes - GASTROINTESTINAL Hx Gastrointestinal Disorders: Yes (SEE COMMENT) Other/Comment: gastroparesis - GENITOURINARY/GYNECOLOGICAL Hx Genitourinary Disorders: No - PSYCHIATRIC Hx Anxiety: Yes Hx Depression: Yes Hx Substance Use: No - SURGICAL HISTORY Hx Surgeries: No - ANESTHESIA Hx Anesthesia: No Hx Anesthesia Reactions: No Hx Malignant Hyperthermia: No Meds Allergies/Adverse Reactions: Allergies Allergy/AdvReac Type Severity Reaction Status Date / Time No Known Allergies Allergy Verified 03/09/17 22:53 Physical Exam - Constitutional Appears: In Acute Distress - Head Exam Head Exam: ATRAUMATIC, NORMAL INSPECTION, NORMOCEPHALIC - Eye Exam Eye Exam: EOMI, Normal appearance - ENT Exam ENT Exam: Mucous Membranes Moist - Respiratory Exam Respiratory Exam: Clear to Auscultation Bilateral, NORMAL BREATHING PATTERN. absent: Rales, Rhonchi, Wheezes, Respiratory Distress - Cardiovascular Exam Cardiovascular Exam: REGULAR RHYTHM, +S1, +S2 - GI/Abdominal Exam GI & Abdominal Exam: Soft, Tenderness - Extremities Exam Extremities exam: Positive for: normal inspection. Negative for: pedal edema, tenderness - Neurological Exam Neurological exam: Alert, Oriented x3 - Psychiatric Exam Psychiatric exam: Agitated, Anxious Results - Vital Signs Recent Vital Signs: Last Vital Signs Temp 98.3 F 03/09/17 22:48 Pulse 110 H 03/09/17 23:33 Resp 22 03/09/17 23:33 BP 106/59 L 03/09/17 23:33 Pulse Ox 100 03/10/17 01:23 - Labs Result Diagrams: 03/10/17 00:13 03/10/17 00:13 Labs: Laboratory Results - last 24 hr 03/10/17 03/10/17 00:13 00:13 WBC 10.6 RBC 4.26 Hgb 11.9 Hct 36.5 MCV 85.5 MCH 27.8 MCHC 32.5 L RDW 15.4 H Plt Count 480 H MPV 10.0 Neut % (Auto) 87.4 H Lymph % (Auto) 9.9 L [place] % (Auto) 1.7 Eos % (Auto) 0.2 Baso % (Auto) 0.8 Neut # 9.2 H Lymph # 1.1 [place] # 0.2 Eos # 0.0 Baso # 0.1 Sodium 135 Potassium 4.0 Chloride 103 Carbon Dioxide 22 Anion Gap 15 BUN 28 H Creatinine 2.5 H Est GFR ( Amer) 28 Est GFR (Non-Af Amer) 23 Random Glucose 213 H Calcium 8.7 Total Bilirubin 0.4 AST 25 ALT 28 Alkaline Phosphatase 121 Total Protein 7.9 Albumin 3.7 Globulin 4.2 H Albumin/Globulin Ratio 0.9 L Lipase 19 L Serum Ketones Negative Assessment & Plan - Assessment and Plan (Free Text) Assessment: Intractable vomiting Zofran q4h PRN Lactated Ringers at 75mls/hr NPO Dr. Quach consulted, help appreciated Uncontrolled diabetes mellitus Started ISS (low) Monitor blood glucose, accuchecks q6h HgbA1c (01/02/17) 7.3 f/u HgbA1C Diabetic gastroparesis Zofran q4h PRN HTN hold home medication Nifedipine monitor History of seizures vs pseudoseizures Continue home medication Keppra 250mg po BID Psych consulted, Dr. Mckeon, help appreciated Prophylactic measure DVT: SCDs, no chemical prophylaxis due to possible GI bleed GI: Protonix drip
[2017-03-10 02:28] LABS: BASOPHIL 1 % (0-2); LARGE PLATELETS PRESENT; NEUTROPHIL 87 % (50-75); TOTAL CELLS COUNTED 100
[2017-03-10] MEDS: Lactated Ringer's 1,000 ML IV SCH ×2 (03:35→16:42)
[2017-03-10 06:03] LABS: BASO # 0.1 K/uL (0.0-0.2); BASO % 0.6 % (0.0-2.0); HEMATOCRIT 31.4 % (34.0-47.0); LYMPH # 0.7 K/uL (1.0-4.3); LYMPH % 4.5 % (20.0-40.0); MEAN CELL VOLUME 85.4 fL (81.0-99.0); MEAN CORPUSCULAR HEMOGLOBIN 27.9 pg (27.0-31.0); MEAN CORPUSCULAR HGB CONC 32.7 g/dL (33.0-37.0); MEAN PLATELET VOLUME 9.1 fL (7.2-11.7); MONO % 0.3 % (0.0-10.0); PLATELET COUNT 435 K/uL (130-400); RED CELL DISTRIBUTION WIDTH 15.5 % (11.5-14.5); WHITE BLOOD COUNT 14.6 K/uL (4.8-10.8)
[2017-03-10 06:22] LABS: ALB/GLOB RATIO 1.2 (1.0-2.1); BILIRUBIN,TOTAL 0.7 mg/dL (0.2-1.3); MAGNESIUM 2.1 mg/dL (1.6-2.3); PHOSPHOROUS 4.4 mg/dL (2.5-4.5); POTASSIUM 4.5 mmol/L (3.6-5.2); TOTAL PROTEIN 6.2 g/dL (6.3-8.3)
[2017-03-10] MEDS ORDERED: (Novolin R) Insulin Human Regular 100 units/ml vial ONE (06:31)
[2017-03-10] MEDS: (Novolin R) Insulin Human Regular 100 units/ml vial SC SCH ×3 (06:32→17:51)
[2017-03-10 06:53] LABS: NEUTROPHIL 94 % (50-75); REACTIVE LYMPHOCYTES 1 % (0-0); TOTAL CELLS COUNTED 100
[2017-03-10 07:14] LABS: RBC URINE 2 /hpf (0-3); URINE BACTERIA RARE (<OCC); URINE BILIRUBIN NEGATIVE (NEGATIVE); URINE BLOOD NEGATIVE (NEGATIVE); URINE COLOR Yellow (YELLOW); URINE GLUCOSE (UA) 3+ mg/dL (Normal); URINE KETONE TRACE mg/dL (NEGATIVE); URINE LEUKOCYTE ESTERASE NEG Leu/uL (Negative); URINE PROTEIN 3+ mg/dL (NEGATIVE); URINE UROBILINOGEN NORMAL mg/dL (0.2-1.0); WBC URINE 3 /hpf (0-5)
[2017-03-10] MEDS ORDERED: DEXTROSE 5% IVP SCH (08:30)
[2017-03-10] MEDS ORDERED: PANTOPRAZOLE IVP SCH (08:30)
[2017-03-10] MEDS ORDERED: WATER IVP SCH (08:30)
[2017-03-10] MEDS ORDERED: Glucagon Recombinant 1 mg Inj IM PRN (10:25)
[2017-03-10] MEDS ORDERED: Dextrose 50% SYRINGE Inj (50 ml) IVP PRN (10:25)
[2017-03-10] MEDS ORDERED: Sodium Chloride 0.9% 1,000 ML IV SCH (10:30)
[2017-03-10] MEDS: NIFEdipine 30 mg ER Tab PO SCH (11:11)
[2017-03-10] MEDS: (Novolog) Insulin Aspart, Recombinant 100 u/ml 10 ml vial SC SCH ×2 (11:27→16:43)
[2017-03-10] MEDS ORDERED: HYDROmorphone 1 mg/ml ISec IVP ONE (12:45)
--- NOTE | 2017-03-10 13:27 | PCM.PSYCH ---
Initial Psychiatric Evaluation - Initial Psychiatric Evaluation Type of Admission: Voluntary Legal Status: Capacity Chief Complaint (in patient's own words): "I'm vomiting" History of Present Illness and Precipitating Events: The patient was seen, chart reviewed, and case discussed with staff. This is a 21 year old female who lives with her mother at home. She was brought to the hospital because of intractable vomiting. Patient denies any past inpatient psychiatric hospitalization or outpatient psychiatric care. She reports marijuana usage 3 weeks prior to admission. She denies use of heroin, opiates, or other drugs. Pt remained guarded about the details. Patient reports feelings of anxiety and depression. She reports severe pain. She denies any suicidal ideation or homicidal ideation. She also denies any AVH. Phone call with patients mother reveals increased stress and anxiety at home. Patient is not working and dependent on her mother. Her highest level of education is high school level. Her mother also reports poor appetite and sleeping. Family psychiatric history: denies Past medical history: HTN, DM, gastroparesis; was hospitalized 3 weeks ago at [facility] for DKA Current Medications: Active Medications Generic Name Dose Route Start Last Admin Trade Name Freq PRN Reason Stop Dose Admin Cyanocobalamin 1,000 mcg 03/10/17 10:30 03/10/17 11:11 Vitamin B12 1000 Mcg Tab PO 1,000 mcg DAILY KELVIN Administration Dextrose 0 ml 03/10/17 10:25 Dextrose 50% Inj IVP .STAT PRN Hypoglycemia Protocol Protocol Dextrose 0 gm 03/10/17 10:25 Glutose 15 PO .ONCE PRN Hypoglycemia Protocol Protocol Ferrous Sulfate 325 mg 03/10/17 18:00 Feosol PO BID KELVIN Glucagon 0 mg 03/10/17 10:25 Glucagen Diagnostic Kit IM .STAT PRN Hypoglycemia Protocol Protocol Lactated Ringer's 1,000 mls @ 75 mls/hr 03/10/17 02:15 03/10/17 03:35 Lactated Ringer's IV 75 mls/hr .[id number] KELVIN Administration Dextrose 1,000 mls @ 0 mls/hr 03/10/17 10:25 Dextrose 5% In Water 1000 Ml IV .Q0M PRN Hypoglycemia Protocol Protocol Per Protocol Pantoprazole Sodium 80 mg/ 100 mls @ 10 mls/hr 03/10/17 21:00 Sodium Chloride IVPB .Q10H KELVIN 8 MG/HR Insulin Aspart 8 unit 03/10/17 11:30 03/10/17 11:27 Novolog SC Not Given TIDAC [facility] Insulin Glargine 15 unit 03/10/17 22:00 Lantus SC HS [facility] Insulin Human Regular 0 unit 03/10/17 06:00 03/10/17 11:27 Novolin R SC Not Given Q6 KELVIN Protocol Levetiracetam 250 mg 03/10/17 10:00 03/10/17 11:11 Keppra PO 250 mg BID KELVIN Administration Nifedipine 30 mg 03/10/17 10:30 03/10/17 11:11 Procardia Xl PO 30 mg DAILY KELVIN Administration Ondansetron HCl 4 mg 03/10/17 02:15 03/10/17 08:55 Zofran Inj IVP 4 mg Q6H KELVIN Administration Past Psychiatric History - Past Psychiatric History Previous Treatment History: None Pertinent Medical Hx (Current Medical&Sleep Prob, Allergies): Allergies Allergy/AdvReac Type Severity Reaction Status Date / Time No Known Allergies Allergy Verified 03/09/17 22:53 Cyanocobalamin [Vitamin B12 1000 mcg Tab] 1,000 mcg PO DAILY 10/16/16 Ferrous Sulfate [Feosol] 325 mg PO BID 12/07/16 Gabapentin [Neurontin] 300 mg PO TID #90 cap 01/08/17 Metoclopramide [Reglan] 5 mg PO TIDAC #90 tab 01/08/17 NIFEdipine ER [Procardia XL] 30 mg PO DAILY #30 ter 01/08/17 Ondansetron ODT [Zofran ODT] 1 odt PO BID PRN #15 odt 01/20/17 Insulin Glargine, Recombina [Lantus] 15 unit SC HS 03/09/17 Insulin Lispro [Humalog (Insulin Lispro)] 8 units SC TIDPC 03/09/17 Levetiracetam 250 mg PO BID 03/09/17 Review of Systems - Review of Systems All systems: reviewed and no additional remarkable complaints except - Psychiatric Psychiatric: Anxiety, Irritability, Panic Attacks. absent: Auditory Hallucinations, Suicidal Ideation Mental Status Examination - Personal Presentation Personal Presentation: Looks stated age - Affect Affect: Constricted, Depressed - Motor Activity Motor Activity: Calm - Reliability in Providing Information Reliability in Providing Information: Poor, due to altered mood - Speech Speech: Organized - Mood Mood: Depressed, Anxious - Formal Thought Process Formal Thought Process: No Impairment - Obsessions/Compulsions Obsessions: No Compulsions: No - Cognitive Functions Orientation: Person, Place, Situation, Time Sensorium: Alert Attention/Concentration: Attentive Abstract Thinking: [place] Estimate of Intelligence: Below average Judgement: Imparied, as evidence by: Poor judgement, Imparied, as evidence by: Lack of insight into illness - Risk Risk: Diminished functioning - Strength & Assets Inventory Strength & Assets Inventory: Family support DSM 5 DX - DSM 5 DSM 5 Diagnosis: Generalized anxiety disorder - Recommended/Plan of Treatment Treatment Recommendations and Plan of Treatment: Generalized anxiety disorder CBT Psychoeducation Supportive therapy, group therapy, individual therapy Keppra 250 mg PO BID Trazodone 50 mg by mouth daily at bedtime - Smoking Cessation Smoking Cessation Initiated: No
--- NOTE | 2017-03-10 19:11 | CP.PCM.PN ---
Subjective - Date & Time of Evaluation Date of Evaluation: 03/10/17 Time of Evaluation: 09:45 - Subjective Subjective: Patient was seen and examined at bedside in the ED. Patient was resting comfortably in bed. Patient admits abdominal pain, nausea, vomiting and fatigue. Objective - Vital Signs/Intake and Output Vital Signs (last 24 hours): Temp Pulse Resp BP Pulse Ox 97.4 F L 123 H 20 165/95 H 97 03/10/17 15:45 03/10/17 15:45 03/10/17 15:45 03/10/17 15:45 03/10/17 15:45 - Medications Medications: Current Medications Acetaminophen (Tylenol 325mg Tab) 650 mg PO Q6H PRN PRN Reason: Pain, severe (8-10) Cyanocobalamin (Vitamin B12 1000 Mcg Tab) 1,000 mcg PO DAILY [facility] Last Admin: 03/10/17 11:11 Dose: 1,000 mcg Dextrose (Dextrose 50% Inj) 0 ml IVP .STAT PRN; Protocol PRN Reason: Hypoglycemia Protocol Dextrose (Glutose 15) 0 gm PO .ONCE PRN; Protocol PRN Reason: Hypoglycemia Protocol Ferrous Sulfate (Feosol) 325 mg PO BID [facility] Last Admin: 03/10/17 17:57 Dose: 325 mg Glucagon (Glucagen Diagnostic Kit) 0 mg IM .STAT PRN; Protocol PRN Reason: Hypoglycemia Protocol Hydroxyzine HCl (Atarax) 25 mg PO Q6 PRN PRN Reason: Agitation Lactated Ringer's (Lactated Ringer's) 1,000 mls @ 75 mls/hr IV .[id number] [facility] Last Admin: 03/10/17 16:42 Dose: Not Given Dextrose (Dextrose 5% In Water 1000 Ml) 1,000 mls @ 0 mls/hr IV .Q0M PRN; Protocol; Per Protocol PRN Reason: Hypoglycemia Protocol Pantoprazole Sodium 80 mg/ (Sodium Chloride) 100 mls @ 10 mls/hr IVPB .Q10H KELVIN PRN Reason: 8 MG/HR Insulin Aspart (Novolog) 8 unit SC TIDAC [facility] Last Admin: 03/10/17 16:43 Dose: Not Given Insulin Glargine (Lantus) 15 unit SC HS [facility] Insulin Human Regular (Novolin R) 0 unit SC Q6 KELVIN PRN Reason: Protocol Last Admin: 03/10/17 17:51 Dose: Not Given Levetiracetam (Keppra) 250 mg PO BID [facility] Last Admin: 03/10/17 17:57 Dose: 250 mg Nifedipine (Procardia Xl) 30 mg PO DAILY [facility] Last Admin: 03/10/17 11:11 Dose: 30 mg Ondansetron HCl (Zofran Inj) 4 mg IVP Q6H [facility] Last Admin: 03/10/17 14:24 Dose: 4 mg Trazodone HCl (Desyrel) 50 mg PO [facility] - Labs Labs: 03/10/17 05:52 03/10/17 05:52 - Constitutional Appears: Non-toxic - Head Exam Head Exam: ATRAUMATIC - Eye Exam Eye Exam: EOMI - Respiratory Exam Respiratory Exam: Clear to Ausculation Bilateral, NORMAL BREATHING PATTERN - Cardiovascular Exam Cardiovascular Exam: Tachycardia, REGULAR RHYTHM, +S1, +S2 - GI/Abdominal Exam GI & Abdominal Exam: Soft, Tenderness, Normal Bowel Sounds. absent: Guarding, Rigid - Extremities Exam Extremities Exam: absent: Calf Tenderness, Pedal Edema - Neurological Exam Neurological Exam: Alert, Awake, Oriented x3 - Psychiatric Exam Psychiatric exam: Anxious - Skin Skin Exam: Normal Color Assessment and Plan (1) Intractable vomiting Assessment & Plan: Secondary to diabetic gastroparesis GI Consult, Dr. Quach---> Help appreciated * Management as per recommendation Labs: Gastric Occult: Positive Medications: Pantoprazole 80mg in 100mls @ 10mls/hr Zofran 4mg IVP Q6H PRN Hydroxyzine 25mg PO Q6 prn LR 1,000mls @ 75mls/hr Status: Acute (2) ARF (acute renal failure) Assessment & Plan: BUN/CR: 28/2.5, 34/2.5 LR 1,000mls @ 75mls/HR Continue to monitor Status: Acute (3) Uncontrolled diabetes mellitus Assessment & Plan: HgbA1c: 6.9 Accuchecks ISS: Low dose protocol Lantus 15 units HS Novolog 8 unit SC TIDAC Hypoglycemia protocol Status: Chronic (4) History of hypertension Assessment & Plan: Continue home medication: * Procardia XL 30mg PO daily Status: Acute (5) History of seizures Assessment & Plan: VS Pseudoseizures Continue home medication: * Keppra 250mg PO BID Status: Acute (6) History of anemia Assessment & Plan: Monitor H/H Continue home medication: * Feosol 325mg PO BID * Vitamin B12 1,000mcg PO daily Status: Acute (7) Prophylactic measure Assessment & Plan: GI: Pantoprazole 80mg @ 10mlss/hr SCDs Status: Acute
[2017-03-10] MEDS: Pantoprazole 80 MG in Sodium Chloride 0.9% 100 ML IVPB SCH (21:01)
[2017-03-10] MEDS ORDERED: (Novolin R) Insulin Human Regular 100 units/ml vial SC ONE (21:32)
[2017-03-10] MEDS: (Lantus) Insulin Glargine, Recombinant SC SCH (21:43)
[2017-03-10] MEDS ORDERED: Labetalol 25mg/5ml Syringe IVP STA (23:43)
[2017-03-11] MEDS: (Novolin R) Insulin Human Regular 100 units/ml vial SC SCH ×4 (00:14→18:35)
[2017-03-11] MEDS: Pantoprazole 80 MG in Sodium Chloride 0.9% 100 ML IVPB SCH ×3 (06:13→20:16)
[2017-03-11] MEDS: Lactated Ringer's 1,000 ML IV SCH ×3 (06:14→20:16)
[2017-03-11] MEDS: (Novolog) Insulin Aspart, Recombinant 100 u/ml 10 ml vial SC SCH ×3 (07:22→17:02)
--- NOTE | 2017-03-11 08:23 | CP.PCM.PN ---
Objective - Vital Signs/Intake and Output Vital Signs (last 24 hours): Temp Pulse Resp BP Pulse Ox 97.9 F 92 H 20 160/92 H 98 03/10/17 23:10 03/11/17 05:25 03/10/17 23:10 03/11/17 05:25 03/10/17 23:10 Intake and Output: 03/11/17 03/11/17 06:59 18:59 Intake Total 680 Balance 680 - Medications Medications: Current Medications Acetaminophen (Tylenol 325mg Tab) 650 mg PO Q6H PRN PRN Reason: Pain, severe (8-10) Cyanocobalamin (Vitamin B12 1000 Mcg Tab) 1,000 mcg PO DAILY [facility] Last Admin: 03/10/17 11:11 Dose: 1,000 mcg Dextrose (Dextrose 50% Inj) 0 ml IVP .STAT PRN; Protocol PRN Reason: Hypoglycemia Protocol Dextrose (Glutose 15) 0 gm PO .ONCE PRN; Protocol PRN Reason: Hypoglycemia Protocol Ferrous Sulfate (Feosol) 325 mg PO BID [facility] Last Admin: 03/10/17 17:57 Dose: 325 mg Glucagon (Glucagen Diagnostic Kit) 0 mg IM .STAT PRN; Protocol PRN Reason: Hypoglycemia Protocol Hydroxyzine HCl (Atarax) 25 mg PO Q6 PRN PRN Reason: Agitation Lactated Ringer's (Lactated Ringer's) 1,000 mls @ 75 mls/hr IV .[id number] [facility] Last Admin: 03/11/17 06:14 Dose: 75 mls/hr Dextrose (Dextrose 5% In Water 1000 Ml) 1,000 mls @ 0 mls/hr IV .Q0M PRN; Protocol; Per Protocol PRN Reason: Hypoglycemia Protocol Pantoprazole Sodium 80 mg/ (Sodium Chloride) 100 mls @ 10 mls/hr IVPB .Q10H [facility] PRN Reason: 8 MG/HR Last Admin: 03/11/17 06:13 Dose: 10 mls/hr Insulin Aspart (Novolog) 8 unit SC TIDAC [facility] Last Admin: 03/10/17 16:43 Dose: Not Given Insulin Glargine (Lantus) 15 unit SC HS [facility] Last Admin: 03/10/17 21:43 Dose: 15 units Insulin Human Regular (Novolin R) 0 unit SC Q6 KELVIN PRN Reason: Protocol Last Admin: 03/11/17 06:06 Dose: Not Given Levetiracetam (Keppra) 250 mg PO BID [facility] Last Admin: 03/10/17 17:57 Dose: 250 mg Nifedipine (Procardia Xl) 30 mg PO DAILY [facility] Last Admin: 03/10/17 11:11 Dose: 30 mg Ondansetron HCl (Zofran Inj) 4 mg IVP Q6H [facility] Last Admin: 03/11/17 02:11 Dose: 4 mg Trazodone HCl (Desyrel) 50 mg PO HS [facility] Last Admin: 03/10/17 21:02 Dose: 50 mg - Labs Labs: 03/10/17 05:52 03/10/17 05:52
[2017-03-11 08:33] LABS: BASO # 0.1 K/uL (0.0-0.2); BASO % 0.6 % (0.0-2.0); HEMATOCRIT 35.5 % (34.0-47.0); LYMPH # 1.7 K/uL (1.0-4.3); LYMPH % 13.7 % (20.0-40.0); MEAN CELL VOLUME 85.4 fL (81.0-99.0); MEAN CORPUSCULAR HEMOGLOBIN 27.9 pg (27.0-31.0); MEAN CORPUSCULAR HGB CONC 32.6 g/dL (33.0-37.0); MEAN PLATELET VOLUME 9.6 fL (7.2-11.7); MONO # 0.5 K/uL (0.0-0.8); MONO % 4.1 % (0.0-10.0); RED CELL DISTRIBUTION WIDTH 15.4 % (11.5-14.5); WHITE BLOOD COUNT 12.6 K/uL (4.8-10.8)
[2017-03-11 09:08] LABS: ALB/GLOB RATIO 1.2 (1.0-2.1); BILIRUBIN,TOTAL 0.7 mg/dL (0.2-1.3); CALCIUM 8.7 mg/dl (8.6-10.4); MAGNESIUM 2.5 mg/dL (1.6-2.3); POTASSIUM 3.8 mmol/L (3.6-5.2); TOTAL PROTEIN 6.7 g/dL (6.3-8.3)
--- NOTE | 2017-03-11 09:42 | CP.PCM.PN ---
Subjective - Date & Time of Evaluation Date of Evaluation: 03/11/17 Time of Evaluation: 07:00 - Subjective Subjective: Medicine Note (PGY-1)----> Dr. King's service Patient was seen and examined at bedside. Patient's mother was at bedside. Patient remains nauseous with dry heaving. Patient is scheduled for a repeat endoscopy with Dr. quach today. Patient will be seen by a banquet prep cook and a blunger loader during the course of this admission. Patient admits to nausea and vomiting. Objective - Vital Signs/Intake and Output Vital Signs (last 24 hours): Temp Pulse Resp BP Pulse Ox 98.1 F 118 H 20 193/117 H 97 03/11/17 08:22 03/11/17 08:22 03/11/17 08:22 03/11/17 08:22 03/11/17 08:22 Intake and Output: 03/11/17 03/11/17 06:59 18:59 Intake Total 680 Balance 680 - Medications Medications: Current Medications Acetaminophen (Tylenol 325mg Tab) 650 mg PO Q6H PRN PRN Reason: Pain, severe (8-10) Cyanocobalamin (Vitamin B12 1000 Mcg Tab) 1,000 mcg PO DAILY [facility] Last Admin: 03/10/17 11:11 Dose: 1,000 mcg Dextrose (Dextrose 50% Inj) 0 ml IVP .STAT PRN; Protocol PRN Reason: Hypoglycemia Protocol Dextrose (Glutose 15) 0 gm PO .ONCE PRN; Protocol PRN Reason: Hypoglycemia Protocol Ferrous Sulfate (Feosol) 325 mg PO BID [facility] Last Admin: 03/10/17 17:57 Dose: 325 mg Glucagon (Glucagen Diagnostic Kit) 0 mg IM .STAT PRN; Protocol PRN Reason: Hypoglycemia Protocol Hydralazine HCl (Apresoline) 10 mg IVP Q6 [facility] Hydroxyzine HCl (Atarax) 25 mg PO Q6 PRN PRN Reason: Agitation Lactated Ringer's (Lactated Ringer's) 1,000 mls @ 75 mls/hr IV .[id number] [facility] Last Admin: 03/11/17 06:14 Dose: 75 mls/hr Dextrose (Dextrose 5% In Water 1000 Ml) 1,000 mls @ 0 mls/hr IV .Q0M PRN; Protocol; Per Protocol PRN Reason: Hypoglycemia Protocol Pantoprazole Sodium 80 mg/ (Sodium Chloride) 100 mls @ 10 mls/hr IVPB .Q10H [facility] PRN Reason: 8 MG/HR Last Admin: 03/11/17 06:13 Dose: 10 mls/hr Insulin Aspart (Novolog) 8 unit SC TIDAC [facility] Last Admin: 03/11/17 08:25 Dose: Not Given Insulin Glargine (Lantus) 15 unit SC HS [facility] Last Admin: 03/10/17 21:43 Dose: 15 units Insulin Human Regular (Novolin R) 0 unit SC Q6 [facility] PRN Reason: Protocol Last Admin: 03/11/17 06:06 Dose: Not Given Levetiracetam (Keppra) 250 mg PO BID [facility] Last Admin: 03/10/17 17:57 Dose: 250 mg Nifedipine (Procardia Xl) 30 mg PO DAILY [facility] Last Admin: 03/10/17 11:11 Dose: 30 mg Ondansetron HCl (Zofran Inj) 4 mg IVP Q6H [facility] Last Admin: 03/11/17 08:38 Dose: 4 mg Trazodone HCl (Desyrel) 50 mg PO [facility] Last Admin: 03/10/17 21:02 Dose: 50 mg - Labs Labs: 03/11/17 08:28 03/11/17 08:28 - Constitutional Appears: Non-toxic - Head Exam Head Exam: ATRAUMATIC - Eye Exam Eye Exam: EOMI, Normal appearance - Respiratory Exam Respiratory Exam: Clear to Ausculation Bilateral, NORMAL BREATHING PATTERN - Cardiovascular Exam Cardiovascular Exam: Tachycardia, REGULAR RHYTHM, +S1, +S2 - GI/Abdominal Exam GI & Abdominal Exam: Soft, Normal Bowel Sounds. absent: Guarding, Rigid - Extremities Exam Extremities Exam: Normal Inspection. absent: Calf Tenderness, Pedal Edema - Neurological Exam Neurological Exam: Alert, Awake, Oriented x3 - Psychiatric Exam Psychiatric exam: Anxious - Skin Skin Exam: Normal Color Assessment and Plan (1) Intractable vomiting Assessment & Plan: Secondary to diabetic gastroparesis GI Consult, Dr. Quach---> Help appreciated * Management as per recommendation * Endoscopy held due to [employer] today for elevated HTN Labs: Gastric Occult: Positive Medications: Pantoprazole 80mg in 100mls @ 10mls/hr Zofran 4mg IVP Q6H PRN Hydroxyzine 25mg PO Q6 prn LR 1,000mls @ 75mls/hr Status: Acute (2) ARF (acute renal failure) Assessment & Plan: BUN/CR: 28/2.5, 34/2.5 LR 1,000mls @ 75mls/HR Continue to monitor Status: Acute (3) Uncontrolled diabetes mellitus Assessment & Plan: HgbA1c: 6.9 Accuchecks ISS: Low dose protocol Lantus 15 units HS Novolog 8 unit SC TIDAC Hypoglycemia protocol Status: Chronic (4) History of hypertension Assessment & Plan: Continue home medication: * Procardia XL 30mg PO daily * Hydralazine 10mg IV Q6 PRN with SPB>160mmHG Status: Acute (5) History of seizures Assessment & Plan: VS Pseudoseizures Continue home medication: * Keppra 250mg PO BID Status: Acute (6) History of anemia Assessment & Plan: Monitor H/H Continue home medication: * Feosol 325mg PO BID * Vitamin B12 1,000mcg PO daily Status: Acute (7) Prophylactic measure Assessment & Plan: GI: Pantoprazole 80mg @ 10mlss/hr SCDs Status: Acute
[2017-03-11] MEDS ORDERED: Nitroglycerin 2% Ointment Foilpak UD TOP ONE ×2 (10:28→10:29)
[2017-03-11] MEDS: NIFEdipine 30 mg ER Tab PO SCH (10:43)
[2017-03-11] MEDS ORDERED: Metoprolol 1 mg/ml Inj IVP ONE (10:48)
--- NOTE | 2017-03-11 10:52 | PCM.RRT ---
Addendum entered and electronically signed by Kiko Ryan 03/11/17 10:59: Addendum to BP, at the end of the BEAN VINER after nitropaste was given, BP (147/70) and lopressor 10mg IVP will be given. Original Note: <Kiko Ryan - Last Filed: 03/11/17 10:57> BEAN [facility]ER Nurses Assessment - Situation Date: 03/11/17 Time BEAN VINER was called: 10:20 BEAN VINER Responder Arrival Time:: 10:25 BEAN VINER Location:: Med/Surg Room Number: 562 BEAN [facility]INER Reason for Call: Hypertension - IV IV Inserted during BEAN VINER?: No - Medication Medications Administered During BEAN VINER: Nitropaste and Lopressor 10mg IVp - Diagnostic Test Ordered EKG: Yes (Sinus Tachycardia) Other Diagnostic Test Ordered: EDGARDO panel, F/u CPR started during BEAN VINER?: No - Vital Signs Vital Signs: BP: 213/114 - Vital Signs at end of BEAN VINER Vital Signs at end of BEAN VINER: BP: 147/107 I.Reason for BEAN VINER - A) Acute Change in Patient: Subjective: BEAN VINER was called at 10:20am for elevated BP at 213/114, 20 minutes after patient was given hydralzine 10mg IVP - Neurological Status (Select all that apply): Responsive, Verbal - Respiratory Oxygen Delivery Method: Room Air - Head Head Exam: ATRAUMATIC, NORMAL INSPECTION - Eyes Eye Exam: EOMI - Respiratory Exam Respiratory Exam: Clear to Ausculation Bilateral, NORMAL BREATHING PATTERN - Cardiovascular Exam Cardiovascular Exam: Tachycardia, REGULAR RHYTHM, +S1, +S2 - GI/Abdominal Exam GI & Abdominal Exam: Soft, Normal Bowel Sounds - Neurological Exam Neurological Exam: Alert, Awake - Extremities Exam Extremities Exam: Normal Inspection Plan - Assessment of Findings&Treatment Plan BEAN VINER called for elevated BP at 213/117, 20 minutes after hydralazine 10mg IVP was given Plan: Nitropaste was given and BP was rechecked; 187/117 EKG was done: Sinue tachy At 10:48, BP was rechecked, with BP: 147/107 Lopressor 5mg IVP was given Dr. pantoja, inpatient PMD was called and notified. <Bhavani Palafox V - Last Filed: 03/11/17 18:14> BEAN VINER Nurses Assessment - Vital Signs Vital Signs: Rapid Response Vital Sign Blood Pressure 212/134 Pulse Rate 118 Respiratory Rate 20 Temperature 98.4 F Oxygen Saturation 98 - Vital Signs at end of BEAN VINER Vital Signs at end of BEAN VINER: Rapid Response End Vital Sign Blood Pressure 147/70 Pulse Rate 115 Respiratory Rate 18 Temperature 98.4 F O2 Sat by Pulse Oximetry 98 - Constitutional Appears: Well, Non-toxic, No Acute Distress, Agitated - Eyes Eye Exam: absent: Nystagmus, Scleral icterus - Respiratory Exam Respiratory Exam: absent: Rales, Rhonchi, Wheezes - Cardiovascular Exam Cardiovascular Exam: absent: Irregular Rhythm, JVD - GI/Abdominal Exam GI & Abdominal Exam: absent: Distended, Firm, Rigid - Neurological Exam Neurological Exam: Oriented x3 Additional exam: patient is speaking after faking seizure, no post-icital period, patient is guarding to avoid hitting herself in the face or arm, recognizes mom at bedside , screaming outloud for juice. Awake, alert. oriented X3 - Extremities Exam Extremities Exam: Joint Swelling (mild swelling upper and lower extremities). absent: Tenderness Attending/Attestation - Attestation Notes (Text): BEAN VINER Note Brief Hospitalist Note Responded for BEAN VINER for uncontrolled blood pressure; SBP; 210's. Patient seen with mother at bedside. Patient is known prior on the hospitalist service for hx of pseudoseizure, diabetes, ckd, and psych history. Patient is verbal at bedside. patient attempts to shake to mimic seizure however , patient will hold in the air against gravity, hand does not drop. When position hand above patient's face, patient actively does guard and avoids her face. Patient given Labetolol 10mg IVP prior to my arrival and Zofran IVP prior to my arrival. Ordered for Nitropaste 1inch given patient is NPO for EGD today. EKG noted: patient is sinus tachycardia which is exacerbated by her emotional outburst, patient is crying and screaming for juice with water in spite of NPO status. EDGARDO order and is negative. Instructed resident to give Lopressor 5mg IV (not 10 mg IVP which is a error in the note. Blood pressure improved to systolic in 140s. EGD canceled per discussion with Dr. Pantoja's resident, Dr. Mancilla PGY-1 Physical exam updated in my note.
--- NOTE | 2017-03-11 12:16 | PN ---
LOCATION: [facility], bed A. SUBJECTIVE: This is a 26-year-old female seen in the presence of her mother for GI consultation initially on 03/10/2017, due to recurrent episode of nausea and vomiting with claim of one episode of hematemesis of old blood, the patient was scheduled for upper endoscopy today; however, before the patient went down to the endoscopy room, a rapid response is called and EGD was canceled. The patient to be reevaluated before any aggressive GI workup. Admitting medical team were informed. The entire chart is reviewed including, but not limited to the most recent lab and radiology study results, current and previous medication list, current and previous medical events. Further recommendation to follow post upper endoscopy due to the increased blood pressure and event of the rapid response. Further recommendation to follow. IMPRESSION: 1. Exacerbation of peptic ulcer disease. 2. Diabetes mellitus. 3. Diabetic gastroparesis. 4. Poorly controlled hypertension. 5. Known history of seizure disorder with severe anxiety syndrome. Case to be discussed with the admitting MD that is Dr. Bach. Glory Bach MD cc: Glory Bach MD
[2017-03-11 12:26] LABS: TROPONIN I 0.022 ng/mL (0.00-0.120)
[2017-03-11] MEDS: Belladonna-Phenobarbital PO SCH ×2 (14:34→17:02)
[2017-03-11] MEDS: HYDROmorphone 1 mg/ml ISec IVP PRN (20:07)
[2017-03-11] MEDS: (Lantus) Insulin Glargine, Recombinant SC SCH (21:39)
[2017-03-12] MEDS: (Novolin R) Insulin Human Regular 100 units/ml vial SC SCH ×4 (00:27→17:11)
[2017-03-12] MEDS ORDERED: Labetalol 25mg/5ml Syringe IVP STA (00:44)
[2017-03-12] MEDS: Pantoprazole 80 MG in Sodium Chloride 0.9% 100 ML IVPB SCH ×3 (02:58→22:05)
[2017-03-12] MEDS: Lactated Ringer's 1,000 ML IV SCH (08:07)
[2017-03-12] MEDS: NIFEdipine 30 mg ER Tab PO SCH (09:48)
[2017-03-12] MEDS: Belladonna-Phenobarbital PO SCH ×3 (09:50→17:59)
[2017-03-12] MEDS: (Novolog) Insulin Aspart, Recombinant 100 u/ml 10 ml vial SC SCH ×3 (09:52→17:11)
[2017-03-12 11:29] LABS: BASO % 0.4 % (0.0-2.0); HEMATOCRIT 29.8 % (34.0-47.0); LYMPH # 0.7 K/uL (1.0-4.3); LYMPH % 7.5 % (20.0-40.0); MEAN CELL VOLUME 85.1 fL (81.0-99.0); MEAN CORPUSCULAR HEMOGLOBIN 28.3 pg (27.0-31.0); MEAN CORPUSCULAR HGB CONC 33.2 g/dL (33.0-37.0); MEAN PLATELET VOLUME 9.8 fL (7.2-11.7); MONO # 0.4 K/uL (0.0-0.8); MONO % 3.8 % (0.0-10.0); RED CELL DISTRIBUTION WIDTH 15.4 % (11.5-14.5); WHITE BLOOD COUNT 9.2 K/uL (4.8-10.8)
[2017-03-12 11:34] LABS: PLATELET COUNT 413 K/uL (130-400)
[2017-03-12 11:45] LABS: ALB/GLOB RATIO 1.2 (1.0-2.1); BILIRUBIN,TOTAL 0.5 mg/dL (0.2-1.3); CALCIUM 7.9 mg/dl (8.6-10.4); MAGNESIUM 2.3 mg/dL (1.6-2.3); PHOSPHOROUS 4.2 mg/dL (2.5-4.5); POTASSIUM 3.3 mmol/L (3.6-5.2); TOTAL PROTEIN 5.6 g/dL (6.3-8.3)
[2017-03-12 12:14] LABS: NEUTROPHIL 89 % (50-75); TOTAL CELLS COUNTED 100
--- NOTE | 2017-03-12 12:51 | PN ---
DATE: LOCATION: [facility], bed A. SUBJECTIVE: This is a 26 years old female, seen and examined in rounds without significant reported clinical changes, but with tachycardia, without reported seizure disorder. No active bleeding, but episode of nausea with dyspepsia. Today's lab showed blood glucose level of 267 with increased magnesium to 2.5 before with mild leukocytosis, but normal hemoglobin and hematocrit. PHYSICAL EXAMINATION: GENERAL: A 26 years old female. VITAL SIGNS: Afebrile with heart rate of 112, respiratory rate 20 to 22, and blood pressure 154/76. HEENT: Showed pale, dry oral mucoid membrane. Nonicteric sclerae. LUNGS: Few scattered crepitation. Decreased air entry at bases. HEART: Positive S1 and S2. ABDOMEN: Soft. Bowel sounds are present with light to moderate generalized tenderness. No mass or organomegaly. No rebound tenderness or guarding. EXTREMITIES: Without significant clubbing, cyanosis, or edema. NEUROLOGIC: No reported new neurological deficits, sensory or motor. IMPRESSION: 1. Exacerbation of peptic ulcer disease. 2. Poorly controlled diabetes mellitus with diabetic gastroparesis. 3. Poorly controlled hypertension with tachycardia. 4. Known history of seizure disorder with severe anxiety syndrome. 5. Reported recent history of diffuse abdominal pain of unclear etiology. SUGGESTIONS: 1. I agree with your plan. 2. Control the poorly controlled hypertension and diabetes mellitus. 3. Patient for upper endoscopy at a.m. Glory Bach MD
[2017-03-12] MEDS ORDERED: Dextrose 5%/Lactated Ringer's 1,000 ML IV SCH (19:45)
[2017-03-12] MEDS: Dextrose 5%/Lactated Ringer's 1,000 ML IV SCH (20:14)
[2017-03-12] MEDS: (Lantus) Insulin Glargine, Recombinant SC SCH (21:10)
[2017-03-13] MEDS: (Novolin R) Insulin Human Regular 100 units/ml vial SC SCH ×4 (01:08→18:20)
--- NOTE | 2017-03-13 03:41 | CON ---
DATE: 03/10/[address] Bach [address] Dr. King. I was called for a GI consultation by the admitting medical team. The patient is seen and fully examined on 03/10/2017 for GI consultation as requested by the admitting MD. The entire chart is reviewed including but not limited to the most recent lab and radiology study results, current and the previous medication list, current and the previous medical events, allergies to medication list as well as all the available current and the previous medical records. Case discussed with the staff at length. HISTORY OF PRESENT ILLNESS: This is a 26-year-old female seen and examined in the presence of her mother, admitted through the emergency room with recurrent episodes of nausea and vomiting, abdominal pain, postprandial abdominal distension, but no reported chills, fever, or active bleeding. No chest pain or palpitation, but mild shortness of breath. PAST MEDICAL HISTORY: Including mainly, 1. Diabetes mellitus. 2. Poorly controlled hypertension. 3. Reported seizure disorder. 4. Depression with severe anxiety syndrome. 5. Reported anemia in the past. FAMILY HISTORY: Related to specific GI disorder. SOCIAL HISTORY: Denies any alcohol intake or cigarette smoking. CURRENT MEDICATION: Medication list was reviewed. ALLERGY TO MEDICATION: UNCLEAR. PHYSICAL EXAMINATION: GENERAL: A 26-year-old female, complaining of crampy severe abdominal pain. VITAL SIGNS: Afebrile with pulse of 102, respiratory rate of 20 to 24 with blood pressure of 112/68. HEENT: Showed pale, dry oral mucosal membrane. Nonicteric sclerae. LYMPH NODES: No lymphadenitis or lymphadenopathy. LUNGS: Clear breathing sounds are present bilaterally. HEART: Positive S1 and S2 with increased rate. ABDOMEN: Soft with mild generalized tenderness. No mass or organomegaly. No rebound tenderness or guarding. RECTAL: The patient refused. EXTREMITIES: With slight lower extremity edematous changes. No clubbing or cyanosis. NEUROLOGIC: No reported new neurological deficits, sensory or motor. LABORATORY DATA: After being admitted to the hospital, the patient was found to have normal CBC, but with thrombocytosis of 480 with increased blood glucose level to 213; increased BUN to 28, creatinine to 1.5. IMPRESSION: 1. Re-exacerbation of peptic ulcer disease, rule out gastric versus duodenal ulcer. 2. Diabetic gastroparesis. 3. Poorly controlled hypertension with poorly controlled diabetes mellitus. 4. Known history of seizure disorder. 5. Known history of severe depression with anxiety syndrome. 6. Renal insufficiency, most likely secondary to above. SUGGESTIONS: 1. Agree with your plan. 2. Rehydration. 3. Proton pump inhibitor. 4. Upper endoscopy when the patient is more stable clinically. 5. Serum lipase and amylase level. 6. Abdominal ultrasound. 7. Reglan IV. 8. Neurology consultation. Thank you for letting me participate in your patient's case management. Further recommendation and evaluation to follow. Glory Bach MD
[2017-03-13] MEDS: HYDROmorphone 1 mg/ml ISec IVP PRN ×3 (04:16→21:04)
[2017-03-13] MEDS: (Novolog) Insulin Aspart, Recombinant 100 u/ml 10 ml vial SC SCH ×3 (07:39→18:20)
[2017-03-13] MEDS ORDERED: Sodium Chloride 0.9% 1,000 ML IV SCH (07:45)
[2017-03-13 08:33] LABS: BASO # 0.1 K/uL (0.0-0.2); BASO % 0.5 % (0.0-2.0); HEMATOCRIT 35.1 % (34.0-47.0); LYMPH # 0.9 K/uL (1.0-4.3); LYMPH % 7.5 % (20.0-40.0); MEAN CELL VOLUME 86.4 fL (81.0-99.0); MEAN CORPUSCULAR HGB CONC 32.4 g/dL (33.0-37.0); MEAN PLATELET VOLUME 10.7 fL (7.2-11.7); MONO # 0.4 K/uL (0.0-0.8); MONO % 3.7 % (0.0-10.0); NRBC % 0.7 % (0.0-2.0); PLATELET COUNT 495 K/uL (130-400); RED CELL DISTRIBUTION WIDTH 15.4 % (11.5-14.5); WHITE BLOOD COUNT 11.9 K/uL (4.8-10.8)
[2017-03-13 08:47] LABS: ALB/GLOB RATIO 1.2 (1.0-2.1); BILIRUBIN,TOTAL 0.7 mg/dL (0.2-1.3); CALCIUM 8.3 mg/dl (8.6-10.4); MAGNESIUM 2.2 mg/dL (1.6-2.3); PHOSPHOROUS 4.6 mg/dL (2.5-4.5); POTASSIUM 3.8 mmol/L (3.6-5.2); TOTAL PROTEIN 6.1 g/dL (6.3-8.3)
[2017-03-13] MEDS: Pantoprazole 80 MG in Sodium Chloride 0.9% 100 ML IVPB SCH ×3 (09:04→18:20)
[2017-03-13 09:29] LABS: NEUTROPHIL 93 % (50-75); TOTAL CELLS COUNTED 100
[2017-03-13] MEDS ORDERED: Midazolam 2 MG/2 ML VIAL ONE (10:13)
[2017-03-13] MEDS ORDERED: Propofol 10 mg/ml Inj (20 ML) ONE (10:13)
[2017-03-13] MEDS ORDERED: Sodium Chloride 0.9% 500 ML IV ONE (10:20)
--- NOTE | 2017-03-13 10:33 | CP.PCM.PN ---
Subjective - Date & Time of Evaluation Date of Evaluation: 03/13/17 Time of Evaluation: 08:30 - Subjective Subjective: Medicine Note (PGY-1)----> Dr. King's service Patient was seen and examined at bedside. Patient was resting comfortably in bed. Patient reports that she is doing better. Patient still admits to nausea and abdominal pain. Patient denies chest pain, SOB, palpitations, fever, chills , diarrhea and constipation. Patient will be having an endoscopy. Objective - Vital Signs/Intake and Output Vital Signs (last 24 hours): Temp Pulse Resp BP Pulse Ox 98.6 F 117 H 15 181/107 H 100 03/13/17 07:35 03/13/17 10:04 03/13/17 10:04 03/13/17 10:04 03/13/17 10:04 Intake and Output: 03/13/17 03/13/17 06:59 18:59 Intake Total 780 Balance 780 - Medications Medications: Current Medications Acetaminophen (Tylenol 325mg Tab) 650 mg PO Q6H PRN PRN Reason: Pain, moderate (4-7) Belladonna/Phenobarbital () 1 tab PO TID [facility] Last Admin: 03/12/17 17:59 Dose: 1 tab Cyanocobalamin (Vitamin B12 1000 Mcg Tab) 1,000 mcg PO DAILY [facility] Last Admin: 03/12/17 09:49 Dose: 1,000 mcg Dextrose (Dextrose 50% Inj) 0 ml IVP .STAT PRN; Protocol PRN Reason: Hypoglycemia Protocol Last Admin: 03/12/17 16:15 Dose: 50 ml Dextrose (Glutose 15) 0 gm PO .ONCE PRN; Protocol PRN Reason: Hypoglycemia Protocol Ferrous Sulfate (Feosol) 325 mg PO BID [facility] Last Admin: 03/12/17 17:59 Dose: 325 mg Glucagon (Glucagen Diagnostic Kit) 0 mg IM .STAT PRN; Protocol PRN Reason: Hypoglycemia Protocol Hydralazine HCl (Apresoline) 10 mg IVP Q6 [facility] Last Admin: 03/13/17 05:16 Dose: 10 mg Hydromorphone HCl (Dilaudid) 1 mg IVP Q8H PRN PRN Reason: Pain, severe (8-10) Last Admin: 03/13/17 04:16 Dose: 1 mg Hydroxyzine HCl (Atarax) 25 mg PO Q6 PRN PRN Reason: Agitation Dextrose (Dextrose 5% In Water 1000 Ml) 1,000 mls @ 0 mls/hr IV .Q0M PRN; Protocol; Per Protocol PRN Reason: Hypoglycemia Protocol Pantoprazole Sodium 80 mg/ (Sodium Chloride) 100 mls @ 10 mls/hr IVPB .Q10H [facility] PRN Reason: 8 MG/HR Last Admin: 03/13/17 09:04 Dose: Not Given Dextrose/Lactated Ringer's (Dextrose 5%/Lactated Ringer's) 1,000 mls @ 75 mls/ hr IV .[id number] [facility] Last Admin: 03/12/17 20:14 Dose: 75 mls/hr Insulin Aspart (Novolog) 8 unit SC TIDAC [facility] Last Admin: 03/13/17 07:39 Dose: Not Given Insulin Glargine (Lantus) [address] [facility] Last Admin: 03/12/17 21:10 Dose: Not Given Insulin Human Regular (Novolin R) 0 unit SC Q6 [facility] PRN Reason: Protocol Last Admin: 03/13/17 07:32 Dose: 1 unit Levetiracetam (Keppra) 250 mg PO BID [facility] Last Admin: 03/12/17 17:59 Dose: 250 mg Nifedipine (Procardia Xl) 30 mg PO DAILY [facility] Last Admin: 03/12/17 09:48 Dose: 30 mg Ondansetron HCl (Zofran Inj) 4 mg IVP Q6H [facility] Last Admin: 03/13/17 09:05 Dose: Not Given Trazodone HCl (Desyrel) [address] [facility] Last Admin: 03/12/17 22:10 Dose: Not Given - Labs Labs: 03/13/17 07:59 03/13/17 07:59 PT 10.9 SECONDS (9.7-12.2) 03/12/17 11:24 INR 1.0 03/12/17 11:24 APTT 24 SECONDS (21-34) 03/12/17 11:24 - Constitutional Appears: Well, No Acute Distress - Head Exam Head Exam: ATRAUMATIC, NORMAL INSPECTION - Eye Exam Eye Exam: EOMI, Normal appearance - ENT Exam ENT Exam: Mucous Membranes Moist - Respiratory Exam Respiratory Exam: Clear to Ausculation Bilateral, NORMAL BREATHING PATTERN - Cardiovascular Exam Cardiovascular Exam: Tachycardia, REGULAR RHYTHM, +S1, +S2 - GI/Abdominal Exam GI & Abdominal Exam: Soft, Tenderness, Normal Bowel Sounds. absent: Distended, Firm, Guarding, Rigid - Extremities Exam Extremities Exam: Normal Inspection. absent: Calf Tenderness, Pedal Edema - Neurological Exam Neurological Exam: Alert, Awake, Oriented x3 - Psychiatric Exam Psychiatric exam: Normal Affect - Skin Skin Exam: Normal Color Assessment and Plan (1) Intractable vomiting Assessment & Plan: Secondary to diabetic gastroparesis GI Consult, Dr. Quach---> Help appreciated * Management as per recommendation * Endoscopy: LA grade B reflux esophagitis, erythematous mucosa in the antrum * Recommendation for MRCP Labs: Gastric Occult: Positive Medications: Pantoprazole 80mg in 100mls @ 10mls/hr Reglan 15mg IV QID Hydroxyzine 25mg PO Q6 prn 1 tab po TID Hydralazine 25mg IV Q4 prn Hydralazine 10mg IV q6h prn NS 1,000mls @ 75mls/hr Status: Acute (2) ARF (acute renal failure) Assessment & Plan: [employer] Lead Merchandiser, Dr. Batista---> Help appreciated * Management as per recommendation BUN/CR: 28/2.5, 34/2.5 NS 1,000mls @ 75mls/HR Continue to monitor Status: Acute (3) Uncontrolled diabetes mellitus Assessment & Plan: HgbA1c: 6.9 Accuchecks ISS: Low dose protocol Lantus 15 units HS Novolog 8 unit SC TIDAC Hypoglycemia protocol Status: Chronic (4) Generalized anxiety disorder Assessment & Plan: Psych, Dr. New---> help appreciated * Management as per recommendation Medications: * Trazadone 50mg PO HS Status: Acute (5) History of hypertension Assessment & Plan: Medications: * Norvasc 10mg PO daily * Losartan 50mg PO daily * Hydralazine 25mg IV Q4 prn * Hydralazine 10mg IV q6h prn Status: Acute (6) History of seizures Assessment & Plan: VS Pseudoseizures Continue home medication: * Keppra 250mg PO BID Status: Acute (7) History of anemia Assessment & Plan: Monitor H/H Continue home medication: * Feosol 325mg PO BID * Vitamin B12 1,000mcg PO daily Status: Acute (8) Prophylactic measure Assessment & Plan: GI: Pantoprazole 80mg @ 10mlss/hr SCDs Status: Acute
[2017-03-13] MEDS: Belladonna-Phenobarbital PO SCH ×3 (11:53→18:18)
[2017-03-13] MEDS: NIFEdipine 30 mg ER Tab PO SCH (11:53)
[2017-03-13] MEDS: Dextrose 5%/Lactated Ringer's 1,000 ML IV SCH (13:53)
[2017-03-13] MEDS: Sodium Chloride 0.9% 1,000 ML IV SCH (14:09)
--- NOTE | 2017-03-13 15:44 | CP.PCM.CON ---
History of Present Illness - History of Present Illness History of Present Illness: Initial Nephrology Consultation: Assessment: Stable Acute Kidney Injury (N17.9) likely hemodynamic due to GI fluid loss, High BP Diabetic chronic Kidney Disease (E11.22) Hypertensive Chronic Kidney Disease (I12.9) Chronic Kidney Disease (N18.3) Stage 3 with 10 gram proteinuria (R80.9) possibly due to diabetes considering long standing hx of uncontrolled DM and other end organ damage such as retinopathy/gastroparesis. Anemia (D64.9), HTN (I12.9) uncontrolled severe HTN with urgency r/o secondary HTN retinopathy and gastroparesis, had required laser surgery, seizure YOAN + Plan No acute need for renal replacement therapy at this time. Hypertension control with meds as ordered. Patient not on ACEI/ARB hence will start losartan. add norvasc instead of nifedipine as it has much longer t1/2. added hydralazine as needed secondary HTN work up with renin/constantino, metanephrine and renal artery doppler Monitor Input/Output, daily weights and renal function with basic metabolic panel d/w IVF when possible Check urine analysis, spot protein/creatinine and albumin/creatinine ratio Check for 25-OH vitamin D, iPTH repeat YOAN, Anti dsDNA and complements pt says she had kidney biopsy at [facility], no record available (I called [facility] who gets the biopsies from there) Dose meds/antibiotics for reduced GFR. Avoid fleets enema/magnesium based laxatives. Avoid nephrotoxins/NSAIDs/ iodinated contrast (unless needed emergently) Glycemic control Further work up/management as per primary team Thanks for allowing me to participate in care of your patient. Will follow patient with you. Please call if any Qs. d/w mother Dr Dexter Thapa Office: [phone] Chief Complaint; nausea/vomitting HPI: Pt is a 26 y/o f with hx of diabetes Mellitus ( since age of 9 years) with retinopathy and gastroparesis, had required laser surgery, hypertension ( few years), seizure, CKD aware for last 1 year presented with complaints of recurrent nasuea/vomitting. renal consult for HTN and CKD management Denies chest pain, palpitation, shortness of breath, leg swelling Denies blood or bubbles in urine Denies OTC/herbal meds or NSAIDs No recent iodinated contrast exposure. No obvious episodes of low BP. has nausea/vomitting ROS: Constitutional Symptoms: Denies fever. No chills. No Recent Weight Changes Eyes: denies change in vision, denies watery eyes, denies double vision Ears/Nose/Mouth/Throat: Denies Abnormal Taste. No Bad breath no Bad Taste. Cardiovascular: No chest pain. There is no shortness of breath. No palpitations. Pulmonary: No shortness of breath no cough. Gastrointestinal: c/o abdominal pain c/o nausea. c/o vomiting. Denies change in bowel habits. Denies Bleeding Genitourinary: No Change in force of strain when urinating. No increase in urinary frequency. No pain while urinating. Denies blood in urine. Neurological: Denies headaches. No dizziness. Denies loss of balance. Denies weakness, denies tingling/numbness Dermatological: No Rash or Bruising or ulcers. Psychiatric: Denies Anxiety. No depression. Denies hallucinations. Rheumatological: No joint pain. Denies Joint swelling Endocrine: Denies tiredness/Fatigue denies Heat/Cold Intolerance. All other negative Physical Examination: mother bedside General Appearance: uncomfortable, in no acute respiratory distress, co- operative . ill appearing Vitals reviewed and noted as below Head; Atraumatic, normocephalic ENT: no ulcers no thrush. Tongue is midline. Oropharynx: no rash or ulcers. EYES: Pupils are equal, round and reactive to light accommodation. Eye muscles and extraocular movement intact. Sclera is anicteric. Neck; supple no lymphadenopathy, no thyromegaly or bruit Lungs: Normal respiratory rate/effort. Breath sounds bilateral equal and clear Heart: Normal rate. s1s2 normal. No rub or gallop. Extremities: no edema. No varicose veins Neurological: Patient is alert, awake and oriented to person, place and time. No focal deficit. Strength bilateral appropriate and equal Skin: Warm and dry. Normal turgor. No rash. Palpitation: Normal elasticity for age Abdomen: Abdomen is soft. Bowel sounds +. rest is unable as pt didn't cooperate due to pain Psych: limited insight and flat affect/mood MSK: no joint tenderness or swelling. Digits and nails normal, no deformity : kidney or bladder not palpable Labs/imaging/EKG reviewed. Past medical history, past surgical history, family history, social history, allergy reviewed and noted as below Family hx: no hx of CKD. Rest non-contributory in past renal sono neg YOAN + urine pro/cr 10 gr/day HIv/hep b and c neg kappa/lambda normal and SPEP neg Past Patient History - Infectious Disease Hx of Infectious Diseases: None - Past Medical History & Family History Past Medical History?: Yes - Past Social History Smoking Status: Former Smoker - CARDIAC Hx Hypertension: Yes - PULMONARY Hx Respiratory Disorders: No - NEUROLOGICAL Hx Seizures: Yes - HEENT Hx HEENT Problems: Yes Other/Comment: blurred vision both eyes uses eyeglasses - RENAL Hx Chronic Kidney Disease: No - ENDOCRINE/METABOLIC Hx Endocrine Disorders: Yes Hx Diabetes Mellitus Type 1: Yes - HEMATOLOGICAL/ONCOLOGICAL Hx Anemia: Yes - INTEGUMENTARY Hx Dermatological Problems: No - MUSCULOSKELETAL/RHEUMATOLOGICAL Hx Musculoskeletal Disorders: Yes Hx Falls: Yes - GASTROINTESTINAL Hx Gastrointestinal Disorders: Yes (SEE COMMENT) Other/Comment: gastroparesis - GENITOURINARY/GYNECOLOGICAL Hx Genitourinary Disorders: No - PSYCHIATRIC Hx Anxiety: Yes Hx Depression: Yes Hx Substance Use: No - SURGICAL HISTORY Hx Surgeries: No - ANESTHESIA Hx Anesthesia: Yes Hx Anesthesia Reactions: No Meds Allergies/Adverse Reactions: Allergies Allergy/AdvReac Type Severity Reaction Status Date / Time No Known Allergies Allergy Verified 03/09/17 22:53 - Medications Medications: Current Medications Acetaminophen (Tylenol 325mg Tab) 650 mg PO Q6H PRN PRN Reason: Pain, moderate (4-7) Amlodipine Besylate (Norvasc) 10 mg PO DAILY [facility] Last Admin: 03/13/17 12:53 Dose: 10 mg Belladonna/Phenobarbital () 1 tab PO TID [facility] Last Admin: 03/13/17 13:05 Dose: 1 tab Cyanocobalamin (Vitamin B12 1000 Mcg Tab) 1,000 mcg PO DAILY [facility] Last Admin: 03/13/17 11:53 Dose: 1,000 mcg Dextrose (Dextrose 50% Inj) 0 ml IVP .STAT PRN; Protocol PRN Reason: Hypoglycemia Protocol Last Admin: 03/12/17 16:15 Dose: 50 ml Dextrose (Glutose 15) 0 gm PO .ONCE PRN; Protocol PRN Reason: Hypoglycemia Protocol Ferrous Sulfate (Feosol) 325 mg PO BID [facility] Last Admin: 03/13/17 11:53 Dose: 325 mg Glucagon (Glucagen Diagnostic Kit) 0 mg IM .STAT PRN; Protocol PRN Reason: Hypoglycemia Protocol Hydralazine HCl (Apresoline) 10 mg IVP Q6 [facility] Last Admin: 03/13/17 11:53 Dose: 10 mg Hydralazine HCl (Apresoline) 25 mg PO Q4 PRN PRN Reason: Other Hydromorphone HCl (Dilaudid) 1 mg IVP Q8H PRN PRN Reason: Pain, severe (8-10) Last Admin: 03/13/17 12:51 Dose: 1 mg Hydroxyzine HCl (Atarax) 25 mg PO Q6 PRN PRN Reason: Agitation Dextrose (Dextrose 5% In Water 1000 Ml) 1,000 mls @ 0 mls/hr IV .Q0M PRN; Protocol; Per Protocol PRN Reason: Hypoglycemia Protocol Pantoprazole Sodium 80 mg/ (Sodium Chloride) 100 mls @ 10 mls/hr IVPB .Q10H [facility] PRN Reason: 8 MG/HR Last Admin: 03/13/17 13:53 Dose: 10 mls/hr Sodium Chloride (Sodium Chloride 0.9%) 1,000 mls @ 75 mls/hr IV .[id number] [facility] Last Admin: 03/13/17 14:09 Dose: 75 mls/hr Insulin Aspart (Novolog) 8 unit SC TIDAC [facility] Last Admin: 03/13/17 12:25 Dose: 8 unit Insulin Glargine (Lantus) 15 unit SC HS [facility] Last Admin: 03/12/17 21:10 Dose: Not Given Insulin Human Regular (Novolin R) 0 unit SC Q6 [facility] PRN Reason: Protocol Last Admin: 03/13/17 12:55 Dose: Not Given Levetiracetam (Keppra) 250 mg PO BID [facility] Last Admin: 03/13/17 11:53 Dose: 250 mg Losartan Potassium (Cozaar) 50 mg PO DAILY [facility] Last Admin: 03/13/17 12:53 Dose: 50 mg Metoclopramide HCl (Reglan) 15 mg IVP QID [facility] Ondansetron HCl (Zofran Inj) 4 mg IVP Q6H [facility] Last Admin: 03/13/17 13:30 Dose: 4 mg Trazodone HCl (Desyrel) 50 mg PO HS [facility] Last Admin: 03/12/17 22:10 Dose: Not Given Results - Vital Signs Recent Vital Signs: Last Vital Signs Temp 99.1 F 03/13/17 10:25 Pulse 107 H 03/13/17 10:55 Resp 15 03/13/17 10:55 BP 153/97 H 03/13/17 10:55 Pulse Ox 98 03/13/17 10:55 - Labs Result Diagrams: 03/13/17 07:59 03/13/17 07:59 Labs: Laboratory Results - last 24 hr 03/12/17 03/12/17 03/13/17 16:10 16:36 00:39 WBC RBC Hgb Hct MCV MCH MCHC RDW Plt Count MPV Neut % (Auto) Lymph % (Auto) [place] % (Auto) Eos % (Auto) Baso % (Auto) Neut # Lymph # [place] # Eos # Baso # Neutrophils % (Manual) Lymphocytes % (Manual) Monocytes % (Manual) Platelet Estimate Anisocytosis (manual) Sodium Potassium Chloride Carbon Dioxide Anion Gap BUN Creatinine Est GFR ( Amer) Est GFR (Non-Af Amer) POC Glucose (mg/dL) < 20 L* 160 H 285 H Random Glucose Calcium Phosphorus Magnesium Total Bilirubin AST ALT Alkaline Phosphatase Total Protein Albumin Globulin Albumin/Globulin Ratio Beta HCG, Quant Complement C3 Complement C4 HIV 1&2 Antibody Screen 03/13/17 03/13/17 03/13/17 06:21 07:59 07:59 WBC 11.9 H RBC 4.06 Hgb 11.4 Hct 35.1 MCV 86.4 MCH 28.0 MCHC 32.4 L RDW 15.4 H Plt Count 495 H MPV 10.7 Neut % (Auto) 88.3 H Lymph % (Auto) 7.5 L [place] % (Auto) 3.7 Eos % (Auto) 0.0 Baso % (Auto) 0.5 Neut # 10.5 H Lymph # 0.9 L [place] # 0.4 Eos # 0.0 Baso # 0.1 Neutrophils % (Manual) 93 H Lymphocytes % (Manual) 5 L Monocytes % (Manual) 2 Platelet Estimate Slightly increased H Anisocytosis (manual) Slight Sodium 136 Potassium 3.8 Chloride 104 Carbon Dioxide 23 Anion Gap 13 BUN 32 H Creatinine 2.4 H Est GFR ( Amer) 29 Est GFR (Non-Af Amer) 24 POC Glucose (mg/dL) 353 H Random Glucose 391 H Calcium 8.3 L Phosphorus 4.6 H Magnesium 2.2 Total Bilirubin 0.7 AST 19 ALT 22 Alkaline Phosphatase 95 Total Protein 6.1 L Albumin 3.4 L Globulin 2.8 Albumin/Globulin Ratio 1.2 Beta HCG, Quant Complement C3 Complement C4 HIV 1&2 Antibody Screen 03/13/17 03/13/17 03/13/17 07:59 11:36 13:52 WBC RBC Hgb Hct MCV MCH MCHC RDW Plt Count MPV Neut % (Auto) Lymph % (Auto) [place] % (Auto) Eos % (Auto) Baso % (Auto) Neut # Lymph # [place] # Eos # Baso # Neutrophils % (Manual) Lymphocytes % (Manual) Monocytes % (Manual) Platelet Estimate Anisocytosis (manual) Sodium Potassium Chloride Carbon Dioxide Anion Gap BUN Creatinine Est GFR ( Amer) Est GFR (Non-Af Amer) POC Glucose (mg/dL) 290 H Random Glucose Calcium Phosphorus Magnesium Total Bilirubin AST ALT Alkaline Phosphatase Total Protein Albumin Globulin Albumin/Globulin Ratio Beta HCG, Quant < 2.39 Complement C3 Complement C4 HIV 1&2 Antibody Screen Negative 03/13/17 13:58 WBC RBC Hgb Hct MCV MCH MCHC RDW Plt Count MPV Neut % (Auto) Lymph % (Auto) [place] % (Auto) Eos % (Auto) Baso % (Auto) Neut # Lymph # [place] # Eos # Baso # Neutrophils % (Manual) Lymphocytes % (Manual) Monocytes % (Manual) Platelet Estimate Anisocytosis (manual) Sodium Potassium Chloride Carbon Dioxide Anion Gap BUN Creatinine Est GFR ( Amer) Est GFR (Non-Af Amer) POC Glucose (mg/dL) Random Glucose Calcium Phosphorus Magnesium Total Bilirubin AST ALT Alkaline Phosphatase Total Protein Albumin Globulin Albumin/Globulin Ratio Beta HCG, Quant Complement C3 104.0 Complement C4 30.9 HIV 1&2 Antibody Screen
[2017-03-13] MEDS: (Lantus) Insulin Glargine, Recombinant SC SCH (21:49)
[2017-03-14] MEDS: (Novolin R) Insulin Human Regular 100 units/ml vial SC SCH ×4 (01:17→18:08)
[2017-03-14] MEDS ORDERED: HYDROmorphone 0.5 mg/0.5 ml ISec IVP ONE (03:18)
[2017-03-14] MEDS: HYDROmorphone 1 mg/ml ISec IVP PRN ×3 (05:49→22:31)
[2017-03-14 09:09] LABS: BASO % 0.3 % (0.0-2.0); HEMATOCRIT 34.7 % (34.0-47.0); LYMPH # 1.8 K/uL (1.0-4.3); LYMPH % 24.4 % (20.0-40.0); MEAN CELL VOLUME 86.6 fL (81.0-99.0); MEAN CORPUSCULAR HEMOGLOBIN 27.6 pg (27.0-31.0); MEAN CORPUSCULAR HGB CONC 31.9 g/dL (33.0-37.0); MEAN PLATELET VOLUME 9.7 fL (7.2-11.7); MONO # 0.5 K/uL (0.0-0.8); MONO % 7.4 % (0.0-10.0); NRBC % 0.1 % (0.0-2.0); RED CELL DISTRIBUTION WIDTH 15.1 % (11.5-14.5); WHITE BLOOD COUNT 7.3 K/uL (4.8-10.8)
[2017-03-14 09:23] LABS: ALB/GLOB RATIO 1.3 (1.0-2.1); BILIRUBIN,TOTAL 0.7 mg/dL (0.2-1.3); CALCIUM 8.2 mg/dl (8.6-10.4); MAGNESIUM 2.3 mg/dL (1.6-2.3); PHOSPHOROUS 3.3 mg/dL (2.5-4.5); POTASSIUM 3.5 mmol/L (3.6-5.2)
[2017-03-14] MEDS ORDERED: Ergocalciferol 50,000 Intl Units Cap PO SCH (10:30)
--- NOTE | 2017-03-14 10:50 | PN ---
DATE: LOCATION: [facility], bed A. SUBJECTIVE: This is a 26-year-old female seen and examined in rounds without significant clinical changes but with abdominal pain and less nausea and vomiting. No dyspepsia this morning. Patient is post upper endoscopy with biopsy, results still pending. Today's lab showed blood glucose level again elevated to 269. PHYSICAL EXAMINATION GENERAL: A 26 years old female, awake, alert. VITAL SIGNS: Afebrile with pulse of 106, respiratory rate 20 to 22, blood pressure of 162/94. HEENT: Show pale, dry mucous membranes. Nonicteric sclerae. LUNGS: She has got crepitation, decreased air entry at bases. HEART: Positive S1 and S2. ABDOMEN: Soft with slight generalized tenderness. No mass or organomegaly. No rebound tenderness or guarding. EXTREMITIES: Mild lower extremity edematous changes. No clubbing or cyanosis. NEUROLOGIC: No new reported neurological deficits, sensory or motor. IMPRESSION: 1. Re-exacerbation of peptic ulcer disease. 2. Poorly controlled diabetes mellitus with possible gastroparesis. 3. Poorly controlled hypertension. 4. Tachycardia. 5. History of severe anxiety syndrome, seizure disorder. SUGGESTIONS: 1. Agree with your plan. 2. Subsequent increase of Reglan as needed. 3. Neurology reevaluation. Patient may need a CAT scan of the head. Glory Bach MD
[2017-03-14] MEDS: Belladonna-Phenobarbital PO SCH ×3 (11:13→17:00)
[2017-03-14] MEDS: Pantoprazole 40 mg EC Tab PO SCH (11:14)
[2017-03-14] MEDS: (Novolog) Insulin Aspart, Recombinant 100 u/ml 10 ml vial SC SCH ×3 (11:14→17:00)
--- NOTE | 2017-03-14 11:25 | CP.PCM.PN ---
Subjective - Date & Time of Evaluation Date of Evaluation: 03/14/17 Time of Evaluation: : - Subjective Subjective: PGY2 Note for Dr. King Patient seen and examined at bedside this AM; is shaking/tremulous but is attempting to eat jello and ate entire cup in front of me without vomiting; denies any other symptoms; specifically states that she just wishes she could eat something without vomiting. Objective - Vital Signs/Intake and Output Vital Signs (last 24 hours): Temp Pulse Resp BP Pulse Ox 98.3 F 102 H 20 167/97 H 95 03/14/17 07:57 03/14/17 08:00 03/14/17 07:57 03/14/17 07:57 03/14/17 07:57 Intake and Output: 03/14/17 03/14/17 06:59 18:59 Intake Total 1400 Balance 1400 - Medications Medications: Current Medications Acetaminophen (Tylenol 325mg Tab) 650 mg PO Q6H PRN PRN Reason: Pain, moderate (4-7) Amlodipine Besylate (Norvasc) 10 mg PO DAILY [facility] Last Admin: 03/14/17 11:14 Dose: Not Given Belladonna/Phenobarbital () 1 tab PO TID [facility] Last Admin: 03/14/17 11:13 Dose: Not Given Cyanocobalamin (Vitamin B12 1000 Mcg Tab) 1,000 mcg PO DAILY [facility] Last Admin: 03/14/17 11:14 Dose: Not Given Dextrose (Dextrose 50% Inj) 0 ml IVP .STAT PRN; Protocol PRN Reason: Hypoglycemia Protocol Last Admin: 03/12/17 16:15 Dose: 50 ml Dextrose (Glutose 15) 0 gm PO .ONCE PRN; Protocol PRN Reason: Hypoglycemia Protocol Ergocalciferol (Drisdol 50,000 Intl Units Cap) 1 cap PO Q7D [facility] Last Admin: 03/14/17 11:13 Dose: Not Given Ferrous Sulfate (Feosol) 325 mg PO BID [facility] Last Admin: 03/14/17 11:13 Dose: Not Given Glucagon (Glucagen Diagnostic Kit) 0 mg IM .STAT PRN; Protocol PRN Reason: Hypoglycemia Protocol Hydralazine HCl (Apresoline) 10 mg IVP Q6 [facility] Last Admin: 03/14/17 05:52 Dose: 10 mg Hydralazine HCl (Apresoline) 25 mg PO Q4 PRN PRN Reason: Other Hydromorphone HCl (Dilaudid) 1 mg IVP Q8H PRN PRN Reason: Pain, severe (8-10) Last Admin: 03/14/17 05:49 Dose: 1 mg Hydroxyzine HCl (Atarax) 25 mg PO Q6 PRN PRN Reason: Agitation Dextrose (Dextrose 5% In Water 1000 Ml) 1,000 mls @ 0 mls/hr IV .Q0M PRN; Protocol; Per Protocol PRN Reason: Hypoglycemia Protocol Sodium Chloride (Sodium Chloride 0.9%) 1,000 mls @ 75 mls/hr IV .[id number] [facility] Last Admin: 03/13/17 14:09 Dose: 75 mls/hr Potassium Chloride 10 meq/ (Sodium Chloride) 105 mls @ 110 mls/hr IV .Q58M ONE Stop: 03/14/17 12:12 Insulin Aspart (Novolog) 8 unit SC TIDAC [facility] Last Admin: 03/14/17 11:14 Dose: Not Given Insulin Glargine (Lantus) 15 unit SC [facility] Last Admin: 03/13/17 21:49 Dose: 15 units Insulin Human Regular (Novolin R) 0 unit SC Q6 [facility] PRN Reason: Protocol Last Admin: 03/14/17 06:00 Dose: 3 unit Labetalol HCl (Trandate) 200 mg PO BID [facility] Levetiracetam (Keppra) 250 mg PO BID [facility] Last Admin: 03/14/17 11:14 Dose: Not Given Losartan Potassium (Cozaar) 50 mg PO DAILY [facility] Last Admin: 03/14/17 11:13 Dose: Not Given Metoclopramide HCl (Reglan) 15 mg IVP QID [facility] Last Admin: 03/14/17 10:05 Dose: 15 mg Pantoprazole Sodium (Protonix Ec Tab) 40 mg PO DAILY [facility] Last Admin: 03/14/17 11:14 Dose: Not Given Trazodone HCl (Desyrel) 50 mg PO HS [facility] Last Admin: 03/13/17 21:06 Dose: 50 mg - Labs Labs: 03/14/17 08:34 03/14/17 08:34 PT 10.9 SECONDS (9.7-12.2) 03/12/17 11:24 INR 1.0 03/12/17 11:24 APTT 24 SECONDS (21-34) 03/12/17 11:24 - Constitutional Appears: No Acute Distress, Unkempt, Chronically Ill - Head Exam Head Exam: ATRAUMATIC - Eye Exam Eye Exam: EOMI Pupil Exam: PERRL - ENT Exam ENT Exam: Mucous Membranes Moist - Neck Exam Neck Exam: Full ROM. absent: Lymphadenopathy - Respiratory Exam Respiratory Exam: Clear to Ausculation Bilateral, NORMAL BREATHING PATTERN. absent: Rales, Rhonchi, Wheezes - Cardiovascular Exam Cardiovascular Exam: Tachycardia - GI/Abdominal Exam GI & Abdominal Exam: Soft, Tenderness (epigastric and RUQ) - Rectal Exam Rectal Exam: Deferred - Extremities Exam Extremities Exam: Full ROM. absent: Calf Tenderness - Back Exam Back Exam: NORMAL INSPECTION. absent: CVA tenderness (L), CVA tenderness (R) - Neurological Exam Neurological Exam: Awake, Oriented x3 - Psychiatric Exam Psychiatric exam: Depressed - Skin Skin Exam: Warm Assessment and Plan - Assessment and Plan (Free Text) Assessment: Intractable vomiting; acute on chronic Secondary to diabetic gastroparesis GI Consult, Dr. Quach---> Help appreciated * Management as per recommendation * Endoscopy: LA grade B reflux esophagitis, erythematous mucosa in the antrum Labs: Gastric Occult: Positive Medications: Pantoprazole 80mg in 100mls @ 10mls/hr Reglan 15mg IV QID Hydroxyzine 25mg PO Q6 prn 1 tab po TID Hydralazine 25mg IV Q4 prn Hydralazine 10mg IV q6h prn NS 1,000mls @ 75mls/hr ARF (acute renal failure) Awning Spreader, Dr. Batista---> Help appreciated * Management as per recommendation Creatinine is trending up GFR the same NS 1,000mls @ 75mls/HR Continue to monitor Uncontrolled diabetes mellitus Assessment & Plan: HgbA1c: 6.9 Accuchecks ISS: Low dose protocol Lantus 15 units HS Novolog 8 unit SC TIDAC Hypoglycemia protocol Generalized anxiety disorder Psych, Dr. New---> help appreciated * Management as per recommendation Medications: * Trazadone 50mg PO HS History of hypertension * Norvasc 10mg PO daily * Losartan 50mg PO daily * Hydralazine 25mg IV Q4 prn * Hydralazine 10mg IV q6h prn Pseudoseizures Continue home medication: * Keppra 250mg PO BID History of anemia Monitor H/H most likely 2/2 to poor oral intake Continue home medication: * Feosol 325mg PO BID * Vitamin B12 1,000mcg PO daily Prophylactic measure GI: Pantoprazole 80mg @ 10mlss/hr SCDs Dispo: patient should be able to tolerate PO before going home
--- NOTE | 2017-03-14 17:20 | CP.PCM.PN ---
Subjective - Date & Time of Evaluation Date of Evaluation: 03/14/17 Time of Evaluation: 17:19 - Subjective Subjective: Follow up Nephrology Consultation: Assessment: Stable Acute Kidney Injury (N17.9) likely hemodynamic due to GI fluid loss, High BP Diabetic chronic Kidney Disease (E11.22) Hypertensive Chronic Kidney Disease (I12.9) Chronic Kidney Disease (N18.3) Stage 3 with 10 gram proteinuria (R80.9) possibly due to diabetes considering long standing hx of uncontrolled DM and other end organ damage such as retinopathy/gastroparesis. Anemia (D64.9), HTN (I12.9) uncontrolled severe HTN with urgency r/o secondary HTN retinopathy and gastroparesis, had required laser surgery, seizure YOAN + vit D def Plan No acute need for renal replacement therapy at this time. Hypertension control with meds as ordered. Patient not on ACEI/ARB hence started losartan. added norvasc instead of nifedipine as it has much longer t1/ 2. added hydralazine as needed. also started labetalol 200 bid secondary HTN work up with renin/constantino, metanephrine and renal artery doppler Monitor Input/Output, daily weights and renal function with basic metabolic panel d/w IVF when possible started weekly vit D Check urine analysis, spot protein/creatinine and albumin/creatinine ratio Check iPTH repeat YOAN, Anti dsDNA and complements pt says she [facility], no record available (I called [facility] who gets the biopsies from there) Dose meds/antibiotics for reduced GFR. Avoid fleets enema/magnesium based laxatives. Avoid nephrotoxins/NSAIDs/ iodinated contrast (unless needed emergently) Glycemic control Further work up/management as per primary team Thanks for allowing me to participate in care of your patient. Will follow patient with you. Please call if any Qs. d/w mother/sister Dr Dexter Thapa Office: [phone] Chief Complaint; nausea/vomitting HPI: Pt is a 26 y/o f with hx of diabetes Mellitus ( since age of 9 years) with retinopathy and gastroparesis, had required laser surgery, hypertension ( few years), seizure, CKD aware for last 1 year presented with complaints of recurrent nasuea/vomitting. renal consult for HTN and CKD management Denies chest pain, palpitation, shortness of breath, leg swelling. no urine complaints has nausea/vomitting Physical Examination: sister bedside General Appearance: uncomfortable, in no acute respiratory distress, co- operative . ill appearing Vitals reviewed and noted as below Head; Atraumatic, normocephalic ENT: no ulcers no thrush. Tongue is midline. Oropharynx: no rash or ulcers. EYES: Pupils are equal, round and reactive to light accommodation. Eye muscles and extraocular movement intact. Sclera is anicteric. Neck; supple no lymphadenopathy, no thyromegaly or bruit Lungs: Normal respiratory rate/effort. Breath sounds bilateral equal and clear Heart: Normal rate. s1s2 normal. No rub or gallop. Extremities: no edema. No varicose veins Neurological: Patient is alert, awake and oriented to person, place and time. No focal deficit. Strength bilateral appropriate and equal Skin: Warm and dry. Normal turgor. No rash. Palpitation: Normal elasticity for age Abdomen: Abdomen is soft. Bowel sounds +. rest is unable as pt didn't cooperate due to pain Psych: limited insight and flat affect/mood MSK: no joint tenderness or swelling. Digits and nails normal, no deformity : kidney or bladder not palpable Labs/imaging/EKG reviewed. Past medical history, past surgical history, family history, social history, allergy reviewed and noted as below Family hx: no hx of CKD. Rest non-contributory in past renal sono neg YOAN + urine pro/cr 10 gr/day HIv/hep b and c neg kappa/lambda normal and SPEP neg Objective - Vital Signs/Intake and Output Vital Signs (last 24 hours): Temp Pulse Resp BP Pulse Ox 98.5 F 112 H 18 187/107 H 96 03/14/17 16:06 03/14/17 16:06 03/14/17 16:06 03/14/17 16:06 03/14/17 16:06 Intake and Output: 03/14/17 03/14/17 06:59 18:59 Intake Total 1400 Balance 1400 - Medications Medications: Current Medications Acetaminophen (Tylenol 325mg Tab) 650 mg PO Q6H PRN PRN Reason: Pain, moderate (4-7) Amlodipine Besylate (Norvasc) 10 mg PO DAILY [facility] Last Admin: 03/14/17 11:14 Dose: Not Given Belladonna/Phenobarbital () 1 tab PO TID [facility] Last Admin: 03/14/17 17:00 Dose: 1 tab Cyanocobalamin (Vitamin B12 1000 Mcg Tab) 1,000 mcg PO DAILY [facility] Last Admin: 03/14/17 11:14 Dose: Not Given Dextrose (Dextrose 50% Inj) 0 ml IVP .STAT PRN; Protocol PRN Reason: Hypoglycemia Protocol Last Admin: 03/12/17 16:15 Dose: 50 ml Dextrose (Glutose 15) 0 gm PO .ONCE PRN; Protocol PRN Reason: Hypoglycemia Protocol Ergocalciferol (Drisdol 50,000 Intl Units Cap) 1 cap PO Q7D [facility] Last Admin: 03/14/17 11:13 Dose: Not Given Ferrous Sulfate (Feosol) 325 mg PO BID [facility] Last Admin: 03/14/17 17:00 Dose: 325 mg Glucagon (Glucagen Diagnostic Kit) 0 mg IM .STAT PRN; Protocol PRN Reason: Hypoglycemia Protocol Hydralazine HCl (Apresoline) 10 mg IVP Q6 [facility] Last Admin: 03/14/17 16:59 Dose: 10 mg Hydralazine HCl (Apresoline) 25 mg PO Q4 PRN PRN Reason: Other Hydromorphone HCl (Dilaudid) 1 mg IVP Q8H PRN PRN Reason: Pain, severe (8-10) Last Admin: 03/14/17 14:06 Dose: 1 mg Hydroxyzine HCl (Atarax) 25 mg PO Q6 PRN PRN Reason: Agitation Dextrose (Dextrose 5% In Water 1000 Ml) 1,000 mls @ 0 mls/hr IV .Q0M PRN; Protocol; Per Protocol PRN Reason: Hypoglycemia Protocol Sodium Chloride (Sodium Chloride 0.9%) 1,000 mls @ 75 mls/hr IV .[id number] [facility] Last Admin: 03/13/17 14:09 Dose: 75 mls/hr Insulin Aspart (Novolog) 8 unit SC TIDAC [facility] Last Admin: 03/14/17 17:00 Dose: 8 unit Insulin Glargine (Lantus) 15 unit SC HS [facility] Last Admin: 03/13/17 21:49 Dose: 15 units Insulin Human Regular (Novolin R) 0 unit SC Q6 [facility] PRN Reason: Protocol Last Admin: 03/14/17 14:42 Dose: Not Given Labetalol HCl (Trandate) 200 mg PO BID [facility] Last Admin: 03/14/17 17:14 Dose: 200 mg Levetiracetam (Keppra) 250 mg PO BID [facility] Last Admin: 03/14/17 17:00 Dose: 250 mg Losartan Potassium (Cozaar) 50 mg PO DAILY [facility] Last Admin: 03/14/17 11:13 Dose: Not Given Metoclopramide HCl (Reglan) 15 mg IVP QID [facility] Last Admin: 03/14/17 16:59 Dose: 15 mg Pantoprazole Sodium (Protonix Ec Tab) 40 mg PO DAILY [facility] Last Admin: 03/14/17 11:14 Dose: Not Given Trazodone HCl (Desyrel) 50 mg PO HS [facility] Last Admin: 03/13/17 21:06 Dose: 50 mg - Labs Labs: 03/14/17 08:34 03/14/17 08:34 PT 10.9 SECONDS (9.7-12.2) 03/12/17 11:24 INR 1.0 03/12/17 11:24 APTT 24 SECONDS (21-34) 03/12/17 11:24
[2017-03-14] MEDS: (Lantus) Insulin Glargine, Recombinant SC SCH (22:32)
[2017-03-15] MEDS: (Novolin R) Insulin Human Regular 100 units/ml vial SC SCH ×4 (00:16→18:28)
[2017-03-15 01:21] VITALS: RESP 20
[2017-03-15] MEDS: (Novolog) Insulin Aspart, Recombinant 100 u/ml 10 ml vial SC SCH ×3 (07:30→16:07)
[2017-03-15] MEDS: HYDROmorphone 1 mg/ml ISec IVP PRN (07:43)
[2017-03-15 09:14] LABS: BASO % 0.3 % (0.0-2.0); EOS # 0.1 K/uL (0.0-0.7); EOS % 1.4 % (0.0-4.0); HEMATOCRIT 30.2 % (34.0-47.0); LYMPH # 2.2 K/uL (1.0-4.3); LYMPH % 40.7 % (20.0-40.0); MEAN CELL VOLUME 85.3 fL (81.0-99.0); MEAN CORPUSCULAR HEMOGLOBIN 28.3 pg (27.0-31.0); MEAN CORPUSCULAR HGB CONC 33.2 g/dL (33.0-37.0); MEAN PLATELET VOLUME 9.4 fL (7.2-11.7); MONO # 0.5 K/uL (0.0-0.8); MONO % 8.6 % (0.0-10.0); RED CELL DISTRIBUTION WIDTH 14.6 % (11.5-14.5); WHITE BLOOD COUNT 5.4 K/uL (4.8-10.8)
[2017-03-15 09:23] LABS: ALB/GLOB RATIO 1.1 (1.0-2.1); BILIRUBIN,TOTAL 0.5 mg/dL (0.2-1.3); CALCIUM 7.8 mg/dl (8.6-10.4); MAGNESIUM 2.2 mg/dL (1.6-2.3); PHOSPHOROUS 3.3 mg/dL (2.5-4.5); POTASSIUM 2.9 mmol/L (3.6-5.2); TOTAL PROTEIN 4.9 g/dL (6.3-8.3)
[2017-03-15] MEDS: Pantoprazole 40 mg EC Tab PO SCH (10:12)
[2017-03-15] MEDS: Belladonna-Phenobarbital PO SCH ×3 (10:17→18:31)
--- NOTE | 2017-03-15 13:15 | CP.PCM.PN ---
Subjective - Date & Time of Evaluation Date of Evaluation: 03/15/17 Time of Evaluation: 13:16 - Subjective Subjective: PGY2 Note for Dr. King; all management as per Dr. King Patient seen and examined at bedside this AM; denies all symptoms; was sleeping extremely comfortably; woke her up and she states my cologne makes her extremely nauseus and she asked me to leave the room. Objective - Vital Signs/Intake and Output Vital Signs (last 24 hours): Temp Pulse Resp BP Pulse Ox 98.0 F 92 H 20 159/90 H 97 03/15/17 07:44 03/15/17 07:44 03/15/17 07:44 03/15/17 07:44 03/15/17 07:44 - Medications Medications: Current Medications Acetaminophen (Tylenol 325mg Tab) 650 mg PO Q6H PRN PRN Reason: Pain, moderate (4-7) Amlodipine Besylate (Norvasc) 10 mg PO DAILY [facility] Last Admin: 03/15/17 10:12 Dose: 10 mg Belladonna/Phenobarbital () 1 tab PO TID [facility] Last Admin: 03/15/17 10:17 Dose: 1 tab Cyanocobalamin (Vitamin B12 1000 Mcg Tab) 1,000 mcg PO DAILY [facility] Last Admin: 03/15/17 10:12 Dose: 1,000 mcg Dextrose (Dextrose 50% Inj) 0 ml IVP .STAT PRN; Protocol PRN Reason: Hypoglycemia Protocol Last Admin: 03/12/17 16:15 Dose: 50 ml Dextrose (Glutose 15) 0 gm PO .ONCE PRN; Protocol PRN Reason: Hypoglycemia Protocol Ergocalciferol (Drisdol 50,000 Intl Units Cap) 1 cap PO Q7D [facility] Last Admin: 03/14/17 11:13 Dose: Not Given Ferrous Sulfate (Feosol) 325 mg PO BID [facility] Last Admin: 03/15/17 10:17 Dose: 325 mg Glucagon (Glucagen Diagnostic Kit) 0 mg IM .STAT PRN; Protocol PRN Reason: Hypoglycemia Protocol Hydralazine HCl (Apresoline) 10 mg IVP Q6 [facility] Last Admin: 03/15/17 05:42 Dose: Not Given Hydralazine HCl (Apresoline) 25 mg PO Q4 PRN PRN Reason: Other Hydromorphone HCl (Dilaudid) 1 mg IVP Q8H PRN PRN Reason: Pain, severe (8-10) Last Admin: 03/15/17 07:43 Dose: 1 mg Hydroxyzine HCl (Atarax) 25 mg PO Q6 PRN PRN Reason: Agitation Dextrose (Dextrose 5% In Water 1000 Ml) 1,000 mls @ 0 mls/hr IV .Q0M PRN; Protocol; Per Protocol PRN Reason: Hypoglycemia Protocol Sodium Chloride (Sodium Chloride 0.9%) 1,000 mls @ 75 mls/hr IV .[id number] [facility] Last Admin: 03/13/17 14:09 Dose: 75 mls/hr Insulin Aspart (Novolog) 8 unit SC TIDAC [facility] Last Admin: 03/15/17 07:30 Dose: Not Given Insulin Glargine (Lantus) 15 unit SC HS [facility] Last Admin: 03/14/17 22:32 Dose: 15 units Insulin Human Regular (Novolin R) 0 unit SC Q6 [facility] PRN Reason: Protocol Last Admin: 03/15/17 05:42 Dose: Not Given Labetalol HCl (Trandate) 200 mg PO BID [facility] Last Admin: 03/15/17 10:12 Dose: 200 mg Levetiracetam (Keppra) 250 mg PO BID [facility] Last Admin: 03/15/17 10:17 Dose: 250 mg Losartan Potassium (Cozaar) 50 mg PO DAILY [facility] Last Admin: 03/15/17 10:17 Dose: 50 mg Metoclopramide HCl (Reglan) 15 mg IVP QID [facility] Last Admin: 03/15/17 10:09 Dose: 15 mg Pantoprazole Sodium (Protonix Ec Tab) 40 mg PO DAILY [facility] Last Admin: 03/15/17 10:12 Dose: 40 mg Trazodone HCl (Desyrel) 50 mg PO HS [facility] Last Admin: 03/14/17 22:32 Dose: 50 mg - Labs Labs: 03/15/17 08:49 03/15/17 08:49 PT 10.9 SECONDS (9.7-12.2) 03/12/17 11:24 INR 1.0 03/12/17 11:24 APTT 24 SECONDS (21-34) 03/12/17 11:24 - Head Exam Additional comments: - Constitutional Appears: No Acute Distress, Unkempt, Chronically Ill - Head Exam Head Exam: ATRAUMATIC - Eye Exam Eye Exam: EOMI Pupil Exam: PERRL - ENT Exam ENT Exam: Mucous Membranes Moist - Neck Exam Neck Exam: Full ROM. absent: Lymphadenopathy - Respiratory Exam Respiratory Exam: Clear to Ausculation Bilateral, NORMAL BREATHING PATTERN. absent: Rales, Rhonchi, Wheezes - Cardiovascular Exam Cardiovascular Exam: Tachycardia - GI/Abdominal Exam GI & Abdominal Exam: Soft, Tenderness (epigastric and RUQ) - Rectal Exam Rectal Exam: Deferred - Extremities Exam Extremities Exam: Full ROM. absent: Calf Tenderness - Back Exam Back Exam: NORMAL INSPECTION. absent: CVA tenderness (L), CVA tenderness (R) - Neurological Exam Neurological Exam: Awake, Oriented x3 - Psychiatric Exam Psychiatric exam: Depressed - Skin Skin Exam: Warm Assessment and Plan - Assessment and Plan (Free Text) Assessment: Intractable vomiting; acute on chronic Secondary to diabetic gastroparesis GI Consult, Dr. Quach---> Help appreciated * Management as per recommendation * Endoscopy: LA grade B reflux esophagitis, erythematous mucosa in the antrum Labs: Gastric Occult: Positive Medications: Pantoprazole 80mg in 100mls @ 10mls/hr Reglan 15mg IV QID Hydroxyzine 25mg PO Q6 prn 1 tab po TID Hydralazine 25mg IV Q4 prn Hydralazine 10mg IV q6h prn NS 1,000mls @ 75mls/hr ARF (acute renal failure) Research Statistician, Dr. Batista---> Help appreciated * Management as per recommendation Creatinine is trending up GFR the same NS 1,000mls @ 75mls/HR Continue to monitor Uncontrolled diabetes mellitus Assessment & Plan: HgbA1c: 6.9 Accuchecks ISS: Low dose protocol Lantus 15 units HS Novolog 8 unit SC TIDAC Hypoglycemia protocol Generalized anxiety disorder Psych, Dr. New---> help appreciated * Management as per recommendation Medications: * Trazadone 50mg PO HS History of hypertension * Norvasc 10mg PO daily * Losartan 50mg PO daily * Hydralazine 25mg IV Q4 prn * Hydralazine 10mg IV q6h prn Pseudoseizures Continue home medication: * Keppra 250mg PO BID History of anemia Monitor H/H most likely 2/2 to poor oral intake Continue home medication: * Feosol 325mg PO BID * Vitamin B12 1,000mcg PO daily Prophylactic measure GI: Pantoprazole 80mg @ 10mlss/hr SCDs Dispo: patient should be able to tolerate PO before going home; she was seen eating today and had less episodes of vomiting She was unable to tolerat the smell of my cologne at bedside this AM and states it "makes her very nauseus"
--- NOTE | 2017-03-15 13:35 | PN ---
DATE: LOCATION: [address] [place] [address] A. SUBJECTIVE: This is a 26-year-old female, seen and examined in rounds without significant clinical changes, appeared to be sleepy in bed, but no reported active bleeding, nausea or vomiting. LABORATORY DATA: Most recent lab results done yesterday, none today except blood glucose level reported to be 119. Gastric pathology result is still pending. PHYSICAL EXAMINATION: GENERAL: A 26-year-old female. VITAL SIGNS: Afebrile with pulse of 90, respiratory rate 20 to 22, blood pressure 103/86. HEENT: Show pale, dry oral mucous membrane. Nonicteric sclerae. LUNGS: She has got crepitation, decreased air entry at bases. HEART: Positive S1 and S2 with increased rate. ABDOMEN: Soft. Bowel sounds are present with mild tenderness. No mass or organomegaly. No rebound tenderness or guarding. EXTREMITIES: Without significant clubbing or cyanosis, but with slight lower extremity edematous changes. NEUROLOGIC: No new reported neurological deficits, sensory or motor. IMPRESSION: 1. Peptic ulcer disease. 2. Poorly controlled hypertension and diabetes mellitus. 3. Diabetic gastroparesis. 4. History of severe anxiety syndrome. 5. Seizure disorder with tachycardia. SUGGESTION: 1. Continue current management. 2. peripheral hyperalimentation. 3. Antireflux measure. 4. Further recommendation to follow. Glory Bach MD
--- NOTE | 2017-03-15 15:17 | CP.PCM.PN ---
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 Anemia (D64.9), HTN (I12.9) uncontrolled severe HTN with urgency r/o secondary HTN retinopathy and gastroparesis, had required laser surgery, seizure YOAN + vit D def Plan No acute need for renal replacement therapy at this time. Hypertension control with meds as ordered. Patient not on ACEI/ARB hence started losartan. added norvasc instead of nifedipine as it has much longer t1/ 2. added hydralazine as needed. also started labetalol 200 bid secondary HTN work up with renin/constantino, metanephrine and renal artery doppler Monitor Input/Output, daily weights and renal function with basic metabolic panel d/w IVF when possible started weekly vit D Check urine analysis, spot protein/creatinine and albumin/creatinine ratio Check iPTH repeat YOAN, Anti dsDNA and complements pt says she had kidney biopsy at [facility], no record available (I called [facility] who gets the biopsies from there) Dose meds/antibiotics for reduced GFR. Avoid fleets enema/magnesium based laxatives. Avoid nephrotoxins/NSAIDs/ iodinated contrast (unless needed emergently) Glycemic control Further work up/management as per primary team Thanks for allowing me to participate in care of your patient. Will follow patient with you. Please call if any Qs. d/w mother/sister Dr Dexter Thapa Office: [phone] Chief Complaint; nausea/vomitting HPI: Pt is a 26 y/o f with hx of diabetes Mellitus ( since age of 9 years) with retinopathy and gastroparesis, had required laser surgery, hypertension ( few years), seizure, CKD aware for last 1 year presented with complaints of recurrent nasuea/vomitting. renal consult for HTN and CKD management Denies chest pain, palpitation, shortness of breath, leg swelling. no urine complaints has nausea/vomitting Physical Examination: sister bedside General Appearance: comfortable, in no acute respiratory distress, co-operative . ill appearing Vitals reviewed and noted as below Head; Atraumatic, normocephalic ENT: no ulcers no thrush. Tongue is midline. Oropharynx: no rash or ulcers. EYES: Pupils are equal, round and reactive to light accommodation. Eye muscles and extraocular movement intact. Sclera is anicteric. Neck; supple no lymphadenopathy, no thyromegaly or bruit Lungs: Normal respiratory rate/effort. Breath sounds bilateral equal and clear Heart: Normal rate. s1s2 normal. No rub or gallop. Extremities: no edema. No varicose veins Neurological: Patient is alert, awake and oriented to person, place and time. No focal deficit. Strength bilateral appropriate and equal Skin: Warm and dry. Normal turgor. No rash. Palpitation: Normal elasticity for age Abdomen: Abdomen is soft. Bowel sounds +. rest is unable as pt didn't cooperate due to pain Psych: limited insight and flat affect/mood MSK: no joint tenderness or swelling. Digits and nails normal, no deformity : kidney or bladder not palpable Labs/imaging/EKG reviewed. Past medical history, past surgical history, family history, social history, allergy reviewed and noted as below Family hx: no hx of CKD. Rest non-contributory in past renal sono neg YOAN + urine pro/cr 10 gr/day HIv/hep b and c neg kappa/lambda normal and SPEP neg Objective - Vital Signs/Intake and Output Vital Signs (last 24 hours): Temp Pulse Resp BP Pulse Ox 98.0 F 92 H 20 159/90 H 97 03/15/17 07:44 03/15/17 07:44 03/15/17 07:44 03/15/17 07:44 03/15/17 07:44 - Medications Medications: Current Medications Acetaminophen (Tylenol 325mg Tab) 650 mg PO Q6H PRN PRN Reason: Pain, moderate (4-7) Amlodipine Besylate (Norvasc) 10 mg PO DAILY [facility] Last Admin: 03/15/17 10:12 Dose: 10 mg Belladonna/Phenobarbital () 1 tab PO TID [facility] Last Admin: 03/15/17 14:06 Dose: 1 tab Cyanocobalamin (Vitamin B12 1000 Mcg Tab) 1,000 mcg PO DAILY [facility] Last Admin: 03/15/17 10:12 Dose: 1,000 mcg Dextrose (Dextrose 50% Inj) 0 ml IVP .STAT PRN; Protocol PRN Reason: Hypoglycemia Protocol Last Admin: 03/12/17 16:15 Dose: 50 ml Dextrose (Glutose 15) 0 gm PO .ONCE PRN; Protocol PRN Reason: Hypoglycemia Protocol Ergocalciferol (Drisdol 50,000 Intl Units Cap) 1 cap PO Q7D [facility] Last Admin: 03/14/17 11:13 Dose: Not Given Ferrous Sulfate (Feosol) 325 mg PO BID [facility] Last Admin: 03/15/17 10:17 Dose: 325 mg Glucagon (Glucagen Diagnostic Kit) 0 mg IM .STAT PRN; Protocol PRN Reason: Hypoglycemia Protocol Hydralazine HCl (Apresoline) 10 mg IVP Q6 [facility] Last Admin: 03/15/17 12:05 Dose: Not Given Hydralazine HCl (Apresoline) 25 mg PO Q4 PRN PRN Reason: Other Hydromorphone HCl (Dilaudid) 1 mg IVP Q8H PRN PRN Reason: Pain, severe (8-10) Last Admin: 03/15/17 07:43 Dose: 1 mg Hydroxyzine HCl (Atarax) 25 mg PO Q6 PRN PRN Reason: Agitation Dextrose (Dextrose 5% In Water 1000 Ml) 1,000 mls @ 0 mls/hr IV .Q0M PRN; Protocol; Per Protocol PRN Reason: Hypoglycemia Protocol Sodium Chloride (Sodium Chloride 0.9%) 1,000 mls @ 75 mls/hr IV .[id number] [facility] Last Admin: 03/13/17 14:09 Dose: 75 mls/hr Insulin Aspart (Novolog) 8 unit SC TIDAC [facility] Last Admin: 03/15/17 11:30 Dose: Not Given Insulin Glargine (Lantus) 15 unit SC HS [facility] Last Admin: 03/14/17 22:32 Dose: 15 units Insulin Human Regular (Novolin R) 0 unit SC Q6 [facility] PRN Reason: Protocol Last Admin: 03/15/17 12:05 Dose: Not Given Labetalol HCl (Trandate) 200 mg PO BID [facility] Last Admin: 03/15/17 10:12 Dose: 200 mg Levetiracetam (Keppra) 250 mg PO BID [facility] Last Admin: 03/15/17 10:17 Dose: 250 mg Losartan Potassium (Cozaar) 50 mg PO DAILY [facility] Last Admin: 03/15/17 10:17 Dose: 50 mg Metoclopramide HCl (Reglan) 15 mg IVP QID [facility] Last Admin: 03/15/17 13:41 Dose: 15 mg Pantoprazole Sodium (Protonix Ec Tab) 40 mg PO DAILY [facility] Last Admin: 03/15/17 10:12 Dose: 40 mg Trazodone HCl (Desyrel) 50 mg PO HS [facility] Last Admin: 03/14/17 22:32 Dose: 50 mg - Labs Labs: 03/15/17 08:49 03/15/17 08:49 PT 10.9 SECONDS (9.7-12.2) 03/12/17 11:24 INR 1.0 03/12/17 11:24 APTT 24 SECONDS (21-34) 03/12/17 11:24
--- NOTE | 2017-03-15 16:09 | CARD ---
APPROVED REPORT EKG Measurement Heart [id number] <Conclusion> Suspect arm lead reversal, interpretation assumes no reversal Sinus tachycardia Rightward axis Borderline ECG
[2017-03-15] MEDS: Sodium Chloride 0.9% 1,000 ML IV SCH (19:20)
[2017-03-15] MEDS: (Lantus) Insulin Glargine, Recombinant SC SCH (21:15)
[2017-03-15] MEDS: Potassium Chloride 20 mEq ER Tab PO SCH (22:19)
[2017-03-16] MEDS: (Novolin R) Insulin Human Regular 100 units/ml vial SC SCH ×3 (00:52→12:21)
[2017-03-16] MEDS: Potassium Chloride 20 mEq ER Tab PO SCH (00:53)
[2017-03-16 08:22] LABS: BASO % 0.5 % (0.0-2.0); EOS # 0.2 K/uL (0.0-0.7); EOS % 3.9 % (0.0-4.0); HEMATOCRIT 28.9 % (34.0-47.0); LYMPH # 2.4 K/uL (1.0-4.3); LYMPH % 38.8 % (20.0-40.0); MEAN CELL VOLUME 84.6 fL (81.0-99.0); MEAN CORPUSCULAR HEMOGLOBIN 29.2 pg (27.0-31.0); MEAN CORPUSCULAR HGB CONC 34.5 g/dL (33.0-37.0); MEAN PLATELET VOLUME 9.6 fL (7.2-11.7); MONO # 0.4 K/uL (0.0-0.8); MONO % 7.2 % (0.0-10.0); WHITE BLOOD COUNT 6.1 K/uL (4.8-10.8)
[2017-03-16 09:43] LABS: ALB/GLOB RATIO 1.1 (1.0-2.1); BILIRUBIN,TOTAL 0.5 mg/dL (0.2-1.3); CALCIUM 7.8 mg/dl (8.6-10.4); MAGNESIUM 1.9 mg/dL (1.6-2.3); PHOSPHOROUS 2.7 mg/dL (2.5-4.5); POTASSIUM 2.9 mmol/L (3.6-5.2)
[2017-03-16] MEDS: Belladonna-Phenobarbital PO SCH ×2 (10:15→14:50)
[2017-03-16] MEDS: Pantoprazole 40 mg EC Tab PO SCH (10:15)
[2017-03-16] MEDS: (Novolog) Insulin Aspart, Recombinant 100 u/ml 10 ml vial SC SCH ×3 (10:21→16:29)
[2017-03-16] MEDS: Sodium Chloride 0.9% 1,000 ML IV SCH (13:32)
[2017-03-16] MEDS ORDERED: Potassium Chloride 20 mEq/15 ml LIQ UD PO ONE ×2 (13:50→17:52)
--- NOTE | 2017-03-16 15:27 | PN ---
LOCATION: [facility], bed A. SUBJECTIVE: This is a 26-year-old female, seen and examined in rounds without reported significant clinical changes with slight less abdominal pain with less nausea and vomiting but generalized weakness and malaise. The entire chart is reviewed including, but not limited to the most recent lab and radiology study results, current and previous medication list, current and previous medical events. LABORATORY DATA: Today's lab showed hemoglobin of 10.0, hematocrit 20.9 with low sodium 130, low potassium 2.9 with normal BUN but creatinine 2.4 with blood glucose level of 225 and low calcium of 7.8 with low albumin of 2.2. PHYSICAL EXAMINATION: GENERAL: A 26-year-old female. VITAL SIGNS: Afebrile with pulse of 88, respiratory rate 20 to 22, blood pressure 160/90. HEENT: Showed pale, dry mucoid membrane. Nonicteric sclerae. LUNGS: Few scattered crepitation, decreased air entry at bases. HEART: Positive S1 and S2. ABDOMEN: Soft. Bowel sounds are present. No mass or organomegaly. No rebound tenderness or guarding. EXTREMITIES: Lower extremity edematous changes. No clubbing or cyanosis. NEUROLOGIC: No new reported neurological deficits, sensory or motor. IMPRESSION: 1. Exacerbation of peptic ulcer disease. 2. Poorly controlled diabetes mellitus with diabetic gastroparesis. 3. Poorly-controlled hypertension. 4. Known history of severe anxiety syndrome. 5. History of seizure disorder with tachycardia. SUGGESTION: 1. Continue current management. 2. Repeat serum lipase and amylase levels. 3. The patient may increase Reglan dose to 10 mg q.6 hour as tolerated. Glory Bach MD cc: Glory Bach MD
[2017-03-16 16:00] VITALS: BP 119/70; PULSE 87; TEMP 97.9; O2SAT 99
--- NOTE | 2017-03-16 16:11 | CP.PCM.PN ---
Subjective - Date & Time of Evaluation Date of Evaluation: 03/16/17 Time of Evaluation: 16:08 - Subjective Subjective: Follow up Nephrology Consultation: Assessment: Stable Acute Kidney Injury (N17.9) likely hemodynamic due to GI fluid loss, High BP Diabetic chronic Kidney Disease (E11.22) Hypertensive Chronic Kidney Disease (I12.9) Hypokalemia Chronic Kidney Disease (N18.3) Stage 3 with 10 gram proteinuria (R80.9) possibly due to diabetes considering long standing hx of uncontrolled DM and other end organ damage such as retinopathy/gastroparesis. Anemia (D64.9), HTN (I12.9) uncontrolled severe HTN with urgency r/o secondary HTN retinopathy and gastroparesis, had required laser surgery, seizure YOAN + in past now neg vit D def Plan No acute need for renal replacement therapy at this time. Hypertension control with meds as ordered. Patient not on ACEI/ARB hence started losartan. added norvasc instead of nifedipine as it has much longer t1/ 2. added hydralazine as needed. also started labetalol 200 bid secondary HTN work up with renin/constantino, metanephrine and renal artery doppler Monitor Input/Output, daily weights and renal function with basic metabolic panel started weekly vit D supplement KDUR Check urine spot protein/creatinine and albumin/creatinine ratio pt says she had kidney biopsy at [facility], no record available (I called [facility] who gets the biopsies from there). she says not sure where she had it. Dose meds/antibiotics for reduced GFR. Avoid fleets enema/magnesium based laxatives. Avoid nephrotoxins/NSAIDs/ iodinated contrast (unless needed emergently) Glycemic control Further work up/management as per primary team pt stable for d/c from renal perspective for outpt follow up Thanks for allowing me to participate in care of your patient. Please call if any Qs. d/w mother. Dr Dexter Thapa Office: [phone] Chief Complaint; none today HPI: Pt is a 26 y/o f with hx of diabetes Mellitus ( since age of 9 years) with retinopathy and gastroparesis, had required laser surgery, hypertension ( few years), seizure, CKD aware for last 1 year presented with complaints of recurrent nasuea/vomitting. renal consult for HTN and CKD management Denies chest pain, palpitation, shortness of breath, leg swelling. no urine complaints resolved nausea/vomitting feels much better today. says going home Physical Examination: mother bedside General Appearance: comfortable, in no acute respiratory distress, co-operative . pleasant today Vitals reviewed and noted as below Head; Atraumatic, normocephalic ENT: no ulcers no thrush. Tongue is midline. Oropharynx: no rash or ulcers. EYES: Pupils are equal, round and reactive to light accommodation. Eye muscles and extraocular movement intact. Sclera is anicteric. Neck; supple no lymphadenopathy, no thyromegaly or bruit Lungs: Normal respiratory rate/effort. Breath sounds bilateral equal and clear Heart: Normal rate. s1s2 normal. No rub or gallop. Extremities: no edema. No varicose veins Neurological: Patient is alert, awake and oriented to person, place and time. No focal deficit. Strength bilateral appropriate and equal Skin: Warm and dry. Normal turgor. No rash. Palpitation: Normal elasticity for age Abdomen: Abdomen is soft. Bowel sounds +. non tender Psych: good insight and normal affect/mood MSK: no joint tenderness or swelling. Digits and nails normal, no deformity : kidney or bladder not palpable Labs/imaging/EKG reviewed. Past medical history, past surgical history, family history, social history, allergy reviewed and noted as below Family hx: no hx of CKD. Rest non-contributory in past renal sono neg YOAN + urine pro/cr 10 gr/day HIv/hep b and c neg kappa/lambda normal and SPEP neg Objective - Vital Signs/Intake and Output Vital Signs (last 24 hours): Temp Pulse Resp BP Pulse Ox 97.9 F 87 20 119/70 99 03/16/17 15:58 03/16/17 15:58 03/16/17 15:58 03/16/17 15:58 03/16/17 15:58 Intake and Output: 03/16/17 03/16/17 06:59 18:59 Intake Total 500 500 Balance 500 500 - Medications Medications: Current Medications Acetaminophen (Tylenol 325mg Tab) 650 mg PO Q6H PRN PRN Reason: Pain, moderate (4-7) Amlodipine Besylate (Norvasc) 10 mg PO DAILY [facility] Last Admin: 03/16/17 10:15 Dose: 10 mg Belladonna/Phenobarbital () 1 tab PO TID [facility] Last Admin: 03/16/17 14:50 Dose: 1 tab Cyanocobalamin (Vitamin B12 1000 Mcg Tab) 1,000 mcg PO DAILY [facility] Last Admin: 03/16/17 10:14 Dose: 1,000 mcg Dextrose (Dextrose 50% Inj) 0 ml IVP .STAT PRN; Protocol PRN Reason: Hypoglycemia Protocol Last Admin: 03/12/17 16:15 Dose: 50 ml Dextrose (Glutose 15) 0 gm PO .ONCE PRN; Protocol PRN Reason: Hypoglycemia Protocol Ergocalciferol (Drisdol 50,000 Intl Units Cap) 1 cap PO Q7D [facility] Last Admin: 03/14/17 11:13 Dose: Not Given Ferrous Sulfate (Feosol) 325 mg PO BID [facility] Last Admin: 03/16/17 10:15 Dose: 325 mg Glucagon (Glucagen Diagnostic Kit) 0 mg IM .STAT PRN; Protocol PRN Reason: Hypoglycemia Protocol Hydralazine HCl (Apresoline) 10 mg IVP Q6 [facility] Last Admin: 03/16/17 12:27 Dose: Not Given Hydralazine HCl (Apresoline) 25 mg PO Q4 PRN PRN Reason: Other Hydromorphone HCl (Dilaudid) 2 mg PO ONCE PRN PRN Reason: Pain, severe (8-10) Last Admin: 03/16/17 12:25 Dose: 2 mg Hydroxyzine HCl (Atarax) 25 mg PO Q6 PRN PRN Reason: Agitation Dextrose (Dextrose 5% In Water 1000 Ml) 1,000 mls @ 0 mls/hr IV .Q0M PRN; Protocol; Per Protocol PRN Reason: Hypoglycemia Protocol Insulin Aspart (Novolog) 8 unit SC TIDAC [facility] Last Admin: 03/16/17 12:20 Dose: 8 unit Insulin Glargine (Lantus) 15 unit SC HS [facility] Last Admin: 03/15/17 21:15 Dose: Not Given Insulin Human Regular (Novolin R) 0 unit SC Q6 [facility] PRN Reason: Protocol Last Admin: 03/16/17 12:21 Dose: 6 unit Labetalol HCl (Trandate) 200 mg PO BID [facility] Last Admin: 03/16/17 10:15 Dose: 200 mg Levetiracetam (Keppra) 250 mg PO BID [facility] Last Admin: 03/16/17 10:15 Dose: 250 mg Losartan Potassium (Cozaar) 50 mg PO DAILY [facility] Last Admin: 03/16/17 10:15 Dose: 50 mg Metoclopramide HCl (Reglan) 15 mg IVP QID [facility] Last Admin: 03/16/17 13:46 Dose: Not Given Metoclopramide HCl (Reglan) 10 mg PO Q8H PRN PRN Reason: Nausea/Vomiting Last Admin: 03/16/17 10:14 Dose: 10 mg Pantoprazole Sodium (Protonix Ec Tab) 40 mg PO DAILY [facility] Last Admin: 03/16/17 10:15 Dose: 40 mg Potassium Chloride (Potassium Chloride Oral Soln) 40 meq PO ONCE ONE Stop: 03/16/17 17:53 Trazodone HCl (Desyrel) 50 mg PO HS [facility] Last Admin: 03/15/17 22:19 Dose: 50 mg - Labs Labs: 03/16/17 08:13 03/16/17 08:13 PT 10.9 SECONDS (9.7-12.2) 03/12/17 11:24 INR 1.0 03/12/17 11:24 APTT 24 SECONDS (21-34) 03/12/17 11:24
--- NOTE | 2017-03-16 19:30 | CP.PCM.DIS ---
Provider - Provider Date of Admission: 03/10/17 01:18 Attending physician: Reza Pantoja Jr, MD Time Spent in preparation of Discharge (in minutes): 35 Diagnosis - Discharge Diagnosis (1) Intractable vomiting Status: Acute (2) ARF (acute renal failure) Status: Acute (3) Uncontrolled diabetes mellitus Status: Chronic Priority: High (4) Generalized anxiety disorder Status: Acute (5) History of hypertension Status: Acute (6) History of seizures Status: Acute (7) History of anemia Status: Acute (8) Prophylactic measure Status: Acute Hospital Course - Lab Results Lab Results: Most Recent Lab Values WBC 6.1 K/uL (4.8-10.8) 03/16/17 08:13 RBC 3.42 Mil/uL (3.80-5.20) L 03/16/17 08:13 Hgb 10.0 g/dL (11.0-16.0) L 03/16/17 08:13 Hct 28.9 % (34.0-47.0) L 03/16/17 08:13 MCV 84.6 fL (81.0-99.0) 03/16/17 08:13 MCH 29.2 pg (27.0-31.0) 03/16/17 08:13 MCHC 34.5 g/dL (33.0-37.0) 03/16/17 08:13 RDW 14.0 % (11.5-14.5) 03/16/17 08:13 Plt Count 337 K/uL (130-400) 03/16/17 08:13 MPV 9.6 fL (7.2-11.7) 03/16/17 08:13 Neut % (Auto) 49.6 % (50.0-75.0) L 03/16/17 08:13 Lymph % (Auto) 38.8 % (20.0-40.0) 03/16/17 08:13 Pershing % (Auto) 7.2 % (0.0-10.0) 03/16/17 08:13 Eos % (Auto) 3.9 % (0.0-4.0) 03/16/17 08:13 Baso % (Auto) 0.5 % (0.0-2.0) 03/16/17 08:13 Neut # 3.0 K/uL (1.8-7.0) 03/16/17 08:13 Lymph # 2.4 K/uL (1.0-4.3) 03/16/17 08:13 Pershing # 0.4 K/uL (0.0-0.8) 03/16/17 08:13 Eos # 0.2 K/uL (0.0-0.7) 03/16/17 08:13 Baso # 0.0 K/uL (0.0-0.2) 03/16/17 08:13 Neutrophils % (Manual) 93 % (50-75) H 03/13/17 07:59 Band Neutrophils % 2 % (0-2) 03/12/17 11:24 Lymphocytes % (Manual) 5 % (20-40) L 03/13/17 07:59 Reactive Lymphs % 1 % (0-0) H 03/10/17 05:52 Monocytes % (Manual) 2 % (0-10) 03/13/17 07:59 Basophils % (Manual) 1 % (0-2) 03/10/17 00:13 Toxic Granulation Present 03/10/17 05:52 Platelet Estimate Slightly increased (NORMAL) H 03/13/17 07:59 Large Platelets Present 03/10/17 00:13 Polychromasia Slight 03/12/17 11:24 Hypochromasia (manual) Slight 03/12/17 11:24 Poikilocytosis (manual Slight 03/12/17 11:24 Anisocytosis (manual) Slight 03/13/17 07:59 Microcytosis (manual) Slight 03/12/17 11:24 Ovalocytes Slight 03/12/17 11:24 Rouleaux Slight 03/10/17 00:13 PT 10.9 SECONDS (9.7-12.2) 03/12/17 11:24 INR 1.0 03/12/17 11:24 APTT 24 SECONDS (21-34) 03/12/17 11:24 Sodium 130 mmol/L (132-148) L 03/16/17 08:13 Potassium 2.9 mmol/L (3.6-5.2) L 03/16/17 08:13 Chloride 99 mmol/L (98-107) 03/16/17 08:13 Carbon Dioxide 26 mmol/L (22-30) 03/16/17 08:13 Anion Gap 8 (10-20) L 03/16/17 08:13 BUN 13 mg/dL (7-17) 03/16/17 08:13 Creatinine 2.0 mg/dL (0.7-1.2) H 03/16/17 08:13 Est GFR ( Amer) 36 03/16/17 08:13 Est GFR (Non-Af Amer) 30 03/16/17 08:13 POC Glucose (mg/dL) 338 mg/dL (65-110) H 03/16/17 16:21 Random Glucose 225 mg/dL (65-105) H 03/16/17 08:13 Hemoglobin A1c 6.9 % (4.2-6.5) H 03/10/17 05:52 Calcium 7.8 mg/dl (8.6-10.4) L 03/16/17 08:13 Phosphorus 2.7 mg/dL (2.5-4.5) 03/16/17 08:13 Magnesium 1.9 mg/dL (1.6-2.3) 03/16/17 08:13 Total Bilirubin 0.5 mg/dL (0.2-1.3) 03/16/17 08:13 AST 19 U/L (14-36) 03/16/17 08:13 ALT 23 U/L (9-52) 03/16/17 08:13 Alkaline Phosphatase 78 U/L (38-126) 03/16/17 08:13 Total Creatine Kinase 83 U/L (30-135) 03/11/17 11:53 CK-MB (Mass) 1.29 ng/mL (0.0-3.38) 03/11/17 11:53 Troponin I 0.0220 ng/mL (0.00-0.120) 03/11/17 11:53 Total Protein 5.0 g/dL (6.3-8.3) L 03/16/17 08:13 Albumin 2.6 g/dL (3.5-5.0) L 03/16/17 08:13 Globulin 2.3 gm/dL (2.2-3.9) 03/16/17 08:13 Albumin/Globulin Ratio 1.1 (1.0-2.1) 03/16/17 08:13 Lipase 19 U/L (23-300) L 03/10/17 00:13 25-OH Vitamin D Total < 12.8 NG/ML (30.0-100.0) L 03/14/17 08:34 Beta HCG, Quant < 2.39 mIU/ML 03/13/17 07:59 PTH Intact Whole Molec 46 pg/mL (14-64) 03/14/17 08:34 Urine Color Yellow (YELLOW) 03/10/17 06:43 Urine Clarity Clear (Clear) 03/10/17 06:43 Urine pH 6.0 (5.0-8.0) 03/10/17 06:43 Ur Specific [place] 1.016 (1.003-1.030) 03/10/17 06:43 Urine Protein 3+ mg/dL (NEGATIVE) H 03/10/17 06:43 Urine Glucose (UA) 3+ mg/dL (Normal) H 03/10/17 06:43 Urine Ketones Trace mg/dL (NEGATIVE) 03/10/17 06:43 Urine Blood Negative (NEGATIVE) 03/10/17 06:43 Urine Nitrate Negative (NEGATIVE) 03/10/17 06:43 Urine Bilirubin Negative (NEGATIVE) 03/10/17 06:43 Urine Urobilinogen Normal mg/dL (0.2-1.0) 03/10/17 06:43 Ur Leukocyte Esterase Neg Kathy/uL (Negative) 03/10/17 06:43 Urine WBC (Auto) 3 /hpf (0-5) 03/10/17 06:43 Urine RBC (Auto) 2 /hpf (0-3) 03/10/17 06:43 Ur Squamous Epith Cells 2 /hpf (0-5) 03/10/17 06:43 Urine Bacteria Rare (<OCC) 03/10/17 06:43 Urine HCG, Qual Negative (NEGATIVE) 03/10/17 06:43 Gastric Occult Blood Positive (NEGATIVE) H 03/10/17 02:08 Serum Ketones Negative (NEGATIVE) 03/10/17 00:13 YOAN 6 Profile Negative (NEGATIVE) 03/13/17 13:58 Double Strand DNA Ab <1 IU/mL 03/13/17 13:52 Complement C3 104.0 mg/dL (88.0-165.0) 03/13/17 13:58 Complement C4 30.9 mg/dL (14.0-44.0) 03/13/17 13:58 HIV 1&2 Antibody Screen Negative (NEGATIVE) 03/13/17 13:52 - Hospital Course Hospital Course: HPI ( As per admission): 26 year old female with a past medical history of DM, seizures secondary to hypoglycemia, HTN, and gastroparesis. She presents to the ED because she cannot stop vomiting. Her vomiting started yesterday morning after breakfast. She had a few episodes of vomiting throughout the day. Then she tried to eat dinner and had 5+ episodes of vomiting after. There is dark red blood in the vomit. Patient unwilling to answer most questions but does complain of epigastric abdominal pain. History obtained from mother and Aunt at bedside and EMR. Hospital course: Patient was admitted with the consideration of intractable vomiting and exacerbation of diabetic gastroparesis and was noted to have a positive gastric occult on admission. GI consult was placed to Dr. Quach, who recommended an endoscopy, which showed LA grade B reflux esophagitis, erythematous mucosa in the antrum. Patient was managed on protonix drip upon admission and antiemetic medications. Patient had a WALLPAPERER during admission for hypertension, which was managed medically with no acute events and patient recovered well. Patient was also seen my principal software engineer, Dr. Thapa for acute kidney injury and patient was managed as per recommendations. Patient's symptoms continued to improve over the course of admission. Livestock Producer referral was placed due to patient's uncontrolled diabetes. Patient was discharged upon clearance by medical team. Patient was given appropriate instructions upon discharge. This is a brief summary of events. For a complete course, please refer to the medical record. Discharge Exam - Head Exam Head Exam: ATRAUMATIC - Eye Exam Eye Exam: EOMI, Normal appearance - ENT Exam ENT Exam: Mucous Membranes Moist - Respiratory Exam Respiratory Exam: Clear to PA & Lateral, NORMAL BREATHING PATTERN - Cardiovascular Exam Cardiovascular Exam: Tachycardia, REGULAR RHYTHM, +S1 - GI/Abdominal Exam GI & Abdominal Exam: Normal Bowel Sounds, Soft. absent: Tenderness - Extremities Exam Extremities exam: normal inspection - Neurological Exam Neurological exam: Alert, Oriented x3 - Psychiatric Exam Psychiatric exam: Normal Affect - Skin Skin Exam: Normal Color Discharge Plan - Discharge Medications Prescriptions: Labetalol [Trandate] 200 mg PO BID 30 Days #60 tab NIFEdipine ER [Procardia XL] 60 mg PO DAILY 30 Days #30 ter - Follow Up Plan Condition: GUARDED Disposition: HOME/ ROUTINE Instructions: Labetalol (By mouth), Nifedipine (By mouth), Diabetic Gastroparesis (DC), Acute Nausea and Vomiting (DC) Additional Instructions: Please discharge patient home as per Dr. Pantoja Please start the new medications: 1. Nifidepine XL 60mg PO daily 2. Labetalol HCL 200mg PO BID Please check blood pressure before taking medications Please resume all home medications as prescribed by your PMD, Dr. pantoja Please follow up with your principal software engineer, Dr. Rojas as scheduled Please follow up with your technical support agent in [place] as scheduled Please follow up with your PMD, Dr. Pantoja within a week, Thursday, Mar 23, 2017 Please follow up advice about dietary as per continuing education dean Please return to the hospital if symptoms worsen or resume Referrals: Reza Pantoja Jr., MD [Medical Doctor] - Migue Nieves MD [Staff Provider] -
[2017-03-17 04:12] LABS: CREATININE, RANDOM URINE 115 mg/dL (20-320)
[2017-03-17 23:43] LABS: ALDO/PRA RATIO 3.8 Ratio (0.9-28.9)
== END 2017-03-16 18:10 | disposition home or self-care (01) | DRG 533 ==
LOC: C.ER 22:33 → C.9E 03-10 01:18 → C.5S 03-10 08:48
PROVIDERS: ADMIT Internal Medicine; ATTEND Internal Medicine
PROC: 0DB78ZX Excision of Stomach, Pylorus, Via Natural or Artificial Opening Endoscopic, Diagnostic (ICD-10-PCS; principal; 2017-03-13 10:16)
DX: E10.43 Type 1 diabetes mellitus with diabetic autonomic (poly)neuropathy (principal); N17.9 Acute kidney failure, unspecified; E10.22 Type 1 diabetes mellitus with diabetic chronic kidney disease; E10.65 Type 1 diabetes mellitus with hyperglycemia; N18.3 Chronic kidney disease, stage 3 (moderate); E10.319 Type 1 diabetes mellitus with unspecified diabetic retinopathy without macular edema; E86.9 Volume depletion, unspecified; E87.6 Hypokalemia; I12.9 Hypertensive chronic kidney disease with stage 1 through stage 4 chronic kidney disease, or unspecified chronic kidney disease; K31.84 Gastroparesis; F41.1 Generalized anxiety disorder; E55.9 Vitamin D deficiency, unspecified; F32.9 Major depressive disorder, single episode, unspecified; G40.909 Epilepsy, unspecified, not intractable, without status epilepticus; K21.0 Gastro-esophageal reflux disease with esophagitis; K29.50 Unspecified chronic gastritis without bleeding; K27.9 Peptic ulcer, site unspecified, unspecified as acute or chronic, without hemorrhage or perforation; F12.90 Cannabis use, unspecified, uncomplicated; Z79.4 Long term (current) use of insulin; Z87.891 Personal history of nicotine dependence; D64.9 Anemia, unspecified

== ENCOUNTER 2017-03-20 03:28 | Inpatient (IN) | payer MEDICAID ==
[2017-03-20 03:28] VITALS: BMI 26.4
[2017-03-20] MEDS ORDERED: Sodium Chloride 0.9% 1,000 ML IV ONE (03:44)
[2017-03-20] MEDS ORDERED: (Novolin R) Insulin Human Regular 100 units/ml vial IV STA (03:49)
--- NOTE | 2017-03-20 03:50 | C.PDOC ---
History Of Present Illness 26 year old female presents to the ER via EMS for a complaint of high blood sugar, vomiting, and epigastric pain. Denies dysuria and hematuria. Chief Complaint (Nursing): High Blood Sugar History Per: Patient History/Exam Limitations: no limitations Onset/Duration Of Symptoms: Hrs Current Symptoms Are (Timing): Still Present Causative (Exacerbating) Factor(s): Other (Not known) Associated Infectious Symptoms: Vomiting. denies: Dysuria, Other (Hematuria) Recent travel outside of the [place]: No Past Medical History Reviewed: Historical Data, Nursing Documentation, Vital Signs Vital Signs: Last Vital Signs Temp 98.4 F 03/20/17 03:40 Pulse 78 03/20/17 05:00 Resp 16 03/20/17 05:00 BP 151/91 H 03/20/17 05:00 Pulse Ox 98 03/20/17 05:00 - Medical History PMH: Anemia, Anxiety, Depression, Diabetes, HTN, Seizures - [facility] Procedures EXCISION OF STOMACH, ENDO, DIAGN (11/02/16) EXCISION OF STOMACH, PYLORUS, ENDO, DIAGN (03/10/17) INSERTION OF INFUSION DEV INTO L SUBCLAV VEIN, PERC APPROACH (10/28/16) INSERTION OF INFUSION DEV INTO SUP VENA CAVA, PERC APPROACH (11/02/16) INTRODUCTION OF NUTRITIONAL INTO PERIPH VEIN, PERC APPROACH (10/16/16) ULTRASONOGRAPHY OF SUPERIOR VENA CAVA, GUIDANCE (10/16/16) Family History: States: Unknown Family Hx - Social History Hx Alcohol Use: No Hx Substance Use: No - Immunization History Hx Tetanus Toxoid Vaccination: No Hx Influenza Vaccination: Yes Hx Pneumococcal Vaccination: Yes Review Of Systems Constitutional: Negative for: Fever, Chills Gastrointestinal: Positive for: Vomiting, Abdominal Pain Genitourinary: Negative for: Dysuria, Hematuria Physical Exam - Physical Exam Appears: In Acute Distress, Other (Alert, Conscious) Skin: Normal Color, Warm, Dry Head: Atraumatic, Normacephalic Eye(s): bilateral: Normal Inspection Oral Mucosa: Moist Neck: Normal, Supple Chest: Symmetrical, No Tenderness Cardiovascular: Rhythm Regular Respiratory: Normal Breath Sounds, No Rales, No Rhonchi, No Wheezing Gastrointestinal/Abdominal: Soft, Tenderness (Mild epigastric and mid abdominal area), No Guarding, No Rebound Neurological/Psych: Oriented x3, Normal Speech, Other (No focal deficits) ED Course And Treatment - Laboratory Results Result Diagrams: 03/20/17 03:59 03/20/17 06:07 O2 Sat by Pulse Oximetry: 97 (Room air) Pulse Ox Interpretation: Normal Progress Note: EKG, blood work, CXR, and urinalysis ordered. Insulin, toradol, zofran, and IV fluids administered. Disposition Discussed With .: Reza King Jr. Doctor Will See Patient In The: Hospital Counseled Patient/Family Regarding: Diagnosis - Disposition Referrals: Reza King Jr., MD [Primary Care Provider] - Disposition Time: 06:43 Condition: STABLE Forms: [facility] (Georgian) - POA Present On Arrival: None - Clinical Impression Clinical Impression: Hyperglycemia, Abdominal pain, Renal insufficiency - Scribe Statement The provider has reviewed the documentation as recorded by the Scribelvis Varela All medical record entries made by the Scribe were at my direction and personally dictated by me. I have reviewed the chart and agree that the record accurately reflects my personal performance of the history, physical exam, medical decision making, and the department course for this patient. I have also personally directed, reviewed, and agree with the discharge instructions and disposition.
[2017-03-20 04:04] LABS: BASO # 0.1 K/uL (0.0-0.2); BASO % 1.2 % (0.0-2.0); EOS % 0.4 % (0.0-4.0); HEMATOCRIT 31.8 % (34.0-47.0); LYMPH # 0.8 K/uL (1.0-4.3); LYMPH % 12.1 % (20.0-40.0); MEAN CELL VOLUME 85.8 fL (81.0-99.0); MEAN CORPUSCULAR HEMOGLOBIN 27.6 pg (27.0-31.0); MEAN CORPUSCULAR HGB CONC 32.2 g/dL (33.0-37.0); MEAN PLATELET VOLUME 10.4 fL (7.2-11.7); MONO # 0.2 K/uL (0.0-0.8); MONO % 3.1 % (0.0-10.0); NRBC % 0.2 % (0.0-2.0); RED CELL DISTRIBUTION WIDTH 14.9 % (11.5-14.5); WHITE BLOOD COUNT 6.9 K/uL (4.8-10.8)
[2017-03-20] MEDS ORDERED: Sodium Chloride 0.9% 1,000 ML ONE (04:04)
[2017-03-20] MEDS ORDERED: (Novolin R) Insulin Human Regular 100 units/ml vial ONE (04:06)
[2017-03-20 04:26] LABS: ALB/GLOB RATIO 0.8 (1.0-2.1); ALKALINE PHOSPHATASE 97 U/L (38-126); ALT/SGPT 21 U/L (9-52); AST/SGOT 25 U/L (14-36); BILIRUBIN,TOTAL 0.5 mg/dL (0.2-1.3); BLOOD UREA NITROGEN 25 mg/dL (7-17); CALCIUM 8.2 mg/dl (8.6-10.4); CARBON DIOXIDE 24 mmol/L (22-30); CHLORIDE 103 mmol/L (98-107); GFR AFRICAN-AMERICAN 34; GLUCOSE,RANDOM 439 mg/dL (65-105); POTASSIUM 5.4 mmol/L (3.6-5.2); SODIUM 135 mmol/L (132-148); TOTAL PROTEIN 7.1 g/dL (6.3-8.3)
[2017-03-20 04:32] LABS: ABG ALLEN TEST POS; ARTERIAL BLOOD HGB O2 SAT 95.9 % (95.0-98.0); CARBOXYHEMOGLOBIN 2.1 % (0.5-1.5); DRAW SITE RR; HHB 0.6 % (0.0-5.0); METHEMOGLOBIN 1.4 % (0.0-3.0)
[2017-03-20 06:31] LABS: RBC URINE 1 /hpf (0-3); URINE BILIRUBIN NEGATIVE (NEGATIVE); URINE BLOOD NEGATIVE (NEGATIVE); URINE COLOR Straw (YELLOW); URINE GLUCOSE (UA) 3+ mg/dL (Normal); URINE KETONE NEGATIVE (NEGATIVE); URINE LEUKOCYTE ESTERASE NEG Leu/uL (Negative); URINE PROTEIN 3+ mg/dL (NEGATIVE); URINE UROBILINOGEN NORMAL mg/dL (0.2-1.0); WBC URINE 2 /hpf (0-5)
[2017-03-20 06:33] LABS: CALCIUM 8.2 mg/dl (8.6-10.4)
[2017-03-20 06:35] LABS: POTASSIUM 4.8 mmol/L (3.6-5.2)
--- NOTE | 2017-03-20 08:34 | RAD ---
HISTORY: vomiting, hyperglycemia COMPARISON: 01/27/2017 FINDINGS: LUNGS: No active pulmonary disease. PLEURA: No significant pleural effusion identified, no pneumothorax apparent. CARDIOVASCULAR: Normal. OSSEOUS STRUCTURES: No significant abnormalities. VISUALIZED UPPER ABDOMEN: Normal. OTHER FINDINGS: None. IMPRESSION: No active disease.
[2017-03-20] MEDS ORDERED: Glucagon Recombinant 1 mg Inj IM PRN (08:40)
[2017-03-20] MEDS ORDERED: Dextrose 50% SYRINGE Inj (50 ml) IV PRN (08:40)
--- NOTE | 2017-03-20 08:41 | CP.PCM.HP ---
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 Patient stated that she had hypoglycemic episode two days ago and have been feeling sick since then. Patient states that she has been nauseous, vomiting with abdominal pain without radiation. Patient denies chest pain, SOB, palpitations but admits to headache and dizziness. PMD: Dr. 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 absent: Chills, Fever - EENT Eyes: absent: Blurred Vision, Change in Vision Ears: Dizziness - Cardiovascular Cardiovascular: Dyspnea, Lightheadedness. absent: Chest Pain, Chest Pain at Rest, Diaphoresis, Palpitations, Syncope - Respiratory Respiratory: absent: Dyspnea, Dyspnea on Exertion - Gastrointestinal Gastrointestinal: Nausea, Vomiting. absent: Constipation, Cramping, Diarrhea - Psychiatric Psychiatric: Anxiety - Endocrine Endocrine: Fatigue. absent: Palpitations Past Patient History - Infectious Disease Hx of Infectious Diseases: None - Past Medical History & Family History Past Medical History?: Yes - Past Social History Smoking Status: Former Smoker - CARDIAC Hx Hypertension: Yes - PULMONARY Hx Respiratory Disorders: No - NEUROLOGICAL Hx Seizures: Yes - HEENT Hx HEENT Problems: Yes Other/Comment: blurred vision both eyes uses eyeglasses - RENAL Hx Chronic Kidney Disease: No - ENDOCRINE/METABOLIC Hx Endocrine Disorders: Yes Hx Diabetes Mellitus Type 1: Yes - HEMATOLOGICAL/ONCOLOGICAL Hx Anemia: Yes - INTEGUMENTARY Hx Dermatological Problems: No - MUSCULOSKELETAL/RHEUMATOLOGICAL Hx Musculoskeletal Disorders: Yes Hx Falls: Yes - GASTROINTESTINAL Hx Gastrointestinal Disorders: Yes (SEE COMMENT) Other/Comment: gastroparesis - GENITOURINARY/GYNECOLOGICAL Hx Genitourinary Disorders: No - PSYCHIATRIC Hx Anxiety: Yes Hx Depression: Yes Hx Substance Use: No - SURGICAL HISTORY Hx Surgeries: No - ANESTHESIA Hx Anesthesia: Yes Hx Anesthesia Reactions: No Meds Allergies/Adverse Reactions: Allergies Allergy/AdvReac Type Severity Reaction Status Date / Time No Known Allergies Allergy Verified 03/20/17 03:36 Physical Exam - Constitutional Appears: No Acute Distress - Head Exam Head Exam: ATRAUMATIC, NORMAL INSPECTION - Eye Exam Eye Exam: EOMI, Normal appearance - ENT Exam ENT Exam: Mucous Membranes Moist - Respiratory Exam Respiratory Exam: Clear to Auscultation Bilateral, NORMAL BREATHING PATTERN - Cardiovascular Exam Cardiovascular Exam: Tachycardia, REGULAR RHYTHM, +S1, +S2 - GI/Abdominal Exam GI & Abdominal Exam: Normal Bowel Sounds, Soft, Tenderness - Neurological Exam Neurological exam: Alert, Oriented x3 - Psychiatric Exam Psychiatric exam: Normal Affect, Normal Mood - Skin Skin Exam: Normal Color Results - Vital Signs Recent Vital Signs: Last Vital Signs Temp 99.2 F 03/20/17 07:26 Pulse 103 H 03/20/17 07:26 Resp 16 03/20/17 07:26 BP 118/70 03/20/17 07:26 Pulse Ox 98 03/20/17 07:26 - Labs Result Diagrams: 03/20/17 03:59 03/20/17 06:07 Labs: Laboratory Results - last 24 hr 03/20/17 03/20/17 03/20/17 03:59 03:59 04:25 WBC 6.9 RBC 3.71 L Hgb 10.2 L Hct 31.8 L MCV 85.8 MCH 27.6 MCHC 32.2 L RDW 14.9 H Plt Count 291 MPV 10.4 Neut % (Auto) 83.2 H Lymph % (Auto) 12.1 L Coke % (Auto) 3.1 Eos % (Auto) 0.4 Baso % (Auto) 1.2 Neut # 5.7 Lymph # 0.8 L Coke # 0.2 Eos # 0.0 Baso # 0.1 Puncture Site Rr pCO2 36 pO2 94 HCO3 24.8 ABG pH 7.43 ABG Total CO2 25.0 ABG O2 Saturation 99.4 H ABG Base Excess -0.2 ABG Hemoglobin 9.0 L ABG Carboxyhemoglobin 2.1 H POC ABG HHb (Measured) 0.6 ABG Methemoglobin 1.4 Glenn Test Pos A-a O2 Difference 11.0 Respiratory Index 0.1 Hgb O2 Saturation 95.9 FiO2 21.0 Sodium 135 Potassium 5.4 H Chloride 103 Carbon Dioxide 24 Anion Gap 13 BUN 25 H Creatinine 2.1 H Est GFR ( Amer) 34 Est GFR (Non-Af Amer) 28 Random Glucose 439 H* D Calcium 8.2 L Total Bilirubin 0.5 AST 25 ALT 21 Alkaline Phosphatase 97 Total Protein 7.1 Albumin 3.2 L D Globulin 3.9 Albumin/Globulin Ratio 0.8 L Lipase 41 Urine Color Urine Clarity Urine pH Ur Specific [place] Urine Protein Urine Glucose (UA) Urine Ketones Urine Blood Urine Nitrate Urine Bilirubin Urine Urobilinogen Ur Leukocyte Esterase Urine WBC (Auto) Urine RBC (Auto) Ur Squamous Epith Cells Urine HCG, Qual Serum Ketones Negative 03/20/17 03/20/17 06:07 06:25 WBC RBC Hgb Hct MCV MCH MCHC RDW Plt Count MPV Neut % (Auto) Lymph % (Auto) Coke % (Auto) Eos % (Auto) Baso % (Auto) Neut # Lymph # Coke # Eos # Baso # Puncture Site pCO2 pO2 HCO3 ABG pH ABG Total CO2 ABG O2 Saturation ABG Base Excess ABG Hemoglobin ABG Carboxyhemoglobin POC ABG HHb (Measured) ABG Methemoglobin Glenn Test A-a O2 Difference Respiratory Index Hgb O2 Saturation FiO2 Sodium 139 Potassium 4.8 Chloride 109 H Carbon Dioxide 21 L Anion Gap 14 BUN 26 H Creatinine 2.2 H Est GFR ( Amer) 32 Est GFR (Non-Af Amer) 27 Random Glucose 168 H Calcium 8.2 L Total Bilirubin AST ALT Alkaline Phosphatase Total Protein Albumin Globulin Albumin/Globulin Ratio Lipase Urine Color Straw Urine Clarity Clear Urine pH 7.0 Ur Specific [place] 1.018 Urine Protein 3+ H Urine Glucose (UA) 3+ H Urine Ketones Negative Urine Blood Negative Urine Nitrate Negative Urine Bilirubin Negative Urine Urobilinogen Normal Ur Leukocyte Esterase Neg Urine WBC (Auto) 2 Urine RBC (Auto) 1 Ur Squamous Epith Cells 2 Urine HCG, Qual Negative Serum Ketones Assessment & Plan (1) Intractable vomiting Assessment and Plan: Secondary to diabetic gastroparesis Reglan 15mg IV QID Hydroxyzine 25mg PO Q6 prn Status: Acute (2) Acute kidney injury Assessment and Plan: BUN/CR: 26/2.2 NS @ 50MLS/HR Status: Acute (3) History of hypertension Assessment and Plan: Procardia Xl 60mg PO daily Trandate 100mg PO BID Status: Acute (4) Uncontrolled diabetes mellitus Assessment and Plan: Accbridget ISS-High dose insulin Hypoglycemia protocol Status: Chronic Priority: High (5) History of anemia Assessment and Plan: Monitor H/H Continue home medication: * Feosol 325mg PO BID * Vitamin B12 1,000mcg PO daily Status: Acute (6) Pseudoseizure Assessment and Plan: Keppra 250mg PO BID Status: Acute (7) Prophylactic measure Assessment and Plan: SCDs GI: Pepcid 20mg PO daily Status: Acute
--- NOTE | 2017-03-20 09:17 | PCM.RRT ---
COUNTERINTELLIGENCE ANALYST Nurses Assessment - Situation Date: 03/20/17 Time COUNTERINTELLIGENCE ANALYST was called: 08:45 COUNTERINTELLIGENCE ANALYST Responder Arrival Time:: 08:46 COUNTERINTELLIGENCE ANALYST Location:: CAT Scan COUNTERINTELLIGENCE ANALYST Reason for Call: Change in Mental Status (pseudoseizure ) COUNTERINTELLIGENCE ANALYST Called By: Other Disciplines (CT technitian ) - Constitutional Appears: No Acute Distress - Head Head Exam: ATRAUMATIC, NORMAL INSPECTION - Eyes Eye Exam: EOMI, Normal appearance - Respiratory Exam Respiratory Exam: Clear to Ausculation Bilateral, NORMAL BREATHING PATTERN - Cardiovascular Exam Cardiovascular Exam: REGULAR RHYTHM, RRR, +S1, +S2 - GI/Abdominal Exam GI & Abdominal Exam: Soft, Normal Bowel Sounds. absent: Tenderness - Neurological Exam Neurological Exam: Alert, Awake Plan - Assessment of Findings&Treatment Plan Rapid Response called by the nurse in the CT scan at 8:45am for having a pseudo seizure. Patient was seen and examined at CT. Patient's vitals: B/P 164/101; HR 119; 100% O2 2L NC. Patient was given 2mg Ativan. Patient was alert and stable with no complaints. CT was continued and patient was later brought to the floor.
--- NOTE | 2017-03-20 09:35 | CT ---
PROCEDURE: CT Abdomen and Pelvis without Oral or IV contrast. HISTORY: abd pain/ vomiting COMPARISON: CT abdomen and pelvis without contrast performed 12/27/16 TECHNIQUE: Contiguous axial images of the abdomen and pelvis. No oral or IV contrast administered. Coronal and Sagittal reformats generated. Radiation dose: Total exam DLP = 241.30 mGy-cm. This CT exam was performed using one or more of the following dose reduction techniques: Automated exposure control, adjustment of the mA and/or kV according to patient size, and/or use of iterative reconstruction technique. FINDINGS: There is limited evaluation of the solid organs without the administration of IV contrast. LOWER THORAX: No visible consolidation, pleural effusion, or pneumothorax. LIVER: Unremarkable unenhanced appearance. GALLBLADDER AND BILE DUCTS: Unremarkable unenhanced appearance. PANCREAS: Unremarkable unenhanced appearance. SPLEEN: Unremarkable unenhanced appearance. ADRENALS: Unremarkable unenhanced appearance. KIDNEYS AND URETERS: No hydronephrosis or obstructing renal calculus. BLADDER: Thick-walled under distended urinary bladder. REPRODUCTIVE: Uterus is present. APPENDIX: The appendix appears within normal limits of caliber. No secondary signs of acute appendicitis. BOWEL: The stomach is nondistended. Lack of oral contrast limits evaluation for bowel pathology. The bowel loops appear within normal limits of caliber without evidence of intestinal obstruction. Rectal wall thickening ; correlate clinically for possibility of proctitis. Moderate diffuse constipation. PERITONEUM: No significant free fluid. No definite free air. LYMPH NODES: No bulky lymphadenopathy identified. VASCULATURE: No aortic aneurysm. BONES: No acute osseous abnormality is detected. OTHER FINDINGS: None. IMPRESSION: Thick-walled under distended urinary bladder. Recommend correlation with urinalysis. Rectal wall thickening ; correlate clinically for possibility of proctitis. Moderate diffuse constipation.
[2017-03-20 09:36] VITALS: RESP 20
[2017-03-20] MEDS: NIFEdipine 60 mg ER Tab PO SCH (11:00)
[2017-03-20] MEDS: (Novolog) Insulin Aspart, Recombinant 100 u/ml 10 ml vial SC SCH ×3 (12:23→21:47)
[2017-03-20] MEDS ORDERED: Sodium Chloride 0.9% 1,000 ML IV SCH (20:15)
[2017-03-21 07:38] LABS: BASO # 0.1 K/uL (0.0-0.2); BASO % 1.3 % (0.0-2.0); EOS # 0.2 K/uL (0.0-0.7); HEMATOCRIT 30.8 % (34.0-47.0); LYMPH # 4.3 K/uL (1.0-4.3); LYMPH % 49.9 % (20.0-40.0); MEAN CELL VOLUME 85.6 fL (81.0-99.0); MEAN CORPUSCULAR HEMOGLOBIN 28.1 pg (27.0-31.0); MEAN CORPUSCULAR HGB CONC 32.8 g/dL (33.0-37.0); MEAN PLATELET VOLUME 10.9 fL (7.2-11.7); MONO # 0.6 K/uL (0.0-0.8); MONO % 7.3 % (0.0-10.0); NRBC % 0.1 % (0.0-2.0); WHITE BLOOD COUNT 8.6 K/uL (4.8-10.8)
[2017-03-21 08:12] LABS: ALB/GLOB RATIO 0.9 (1.0-2.1); BILIRUBIN,TOTAL 0.2 mg/dL (0.2-1.3); CALCIUM 8.1 mg/dl (8.6-10.4); MAGNESIUM 2.1 mg/dL (1.6-2.3); PHOSPHOROUS 4.3 mg/dL (2.5-4.5); POTASSIUM 4.2 mmol/L (3.6-5.2)
[2017-03-21] MEDS: (Novolog) Insulin Aspart, Recombinant 100 u/ml 10 ml vial SC SCH ×3 (08:52→17:11)
[2017-03-21] MEDS: NIFEdipine 60 mg ER Tab PO SCH (10:20)
--- NOTE | 2017-03-21 17:03 | CP.PCM.DIS ---
Provider - Provider Date of Admission: 03/20/17 06:44 Attending physician: Reza Pantoja Jr, MD Time Spent in preparation of Discharge (in minutes): 35 Diagnosis - Discharge Diagnosis (1) Intractable vomiting Status: Chronic (2) Acute kidney injury Status: Acute (3) History of hypertension Status: Chronic (4) Uncontrolled diabetes mellitus Status: Chronic Priority: High (5) History of anemia Status: Chronic (6) Pseudoseizure Status: Chronic (7) Prophylactic measure Status: Acute Hospital Course - Lab Results Lab Results: Most Recent Lab Values WBC 8.6 K/uL (4.8-10.8) 03/21/17 07:24 RBC 3.60 Mil/uL (3.80-5.20) L 03/21/17 07:24 Hgb 10.1 g/dL (11.0-16.0) L 03/21/17 07:24 Hct 30.8 % (34.0-47.0) L 03/21/17 07:24 MCV 85.6 fL (81.0-99.0) 03/21/17 07:24 MCH 28.1 pg (27.0-31.0) 03/21/17 07:24 MCHC 32.8 g/dL (33.0-37.0) L 03/21/17 07:24 RDW 15.0 % (11.5-14.5) H 03/21/17 07:24 Plt Count 333 K/uL (130-400) 03/21/17 07:24 MPV 10.9 fL (7.2-11.7) 03/21/17 07:24 Neut % (Auto) 39.5 % (50.0-75.0) L 03/21/17 07:24 Lymph % (Auto) 49.9 % (20.0-40.0) H 03/21/17 07:24 Todd % (Auto) 7.3 % (0.0-10.0) 03/21/17 07:24 Eos % (Auto) 2.0 % (0.0-4.0) 03/21/17 07:24 Baso % (Auto) 1.3 % (0.0-2.0) 03/21/17 07:24 Neut # 3.4 K/uL (1.8-7.0) 03/21/17 07:24 Lymph # 4.3 K/uL (1.0-4.3) 03/21/17 07:24 Todd # 0.6 K/uL (0.0-0.8) 03/21/17 07:24 Eos # 0.2 K/uL (0.0-0.7) 03/21/17 07:24 Baso # 0.1 K/uL (0.0-0.2) 03/21/17 07:24 Puncture Site Rr 03/20/17 04:25 pCO2 36 mm/Hg (35-45) 03/20/17 04:25 pO2 94 mm/Hg (80-100) 03/20/17 04:25 HCO3 24.8 mmol/L (21-28) 03/20/17 04:25 ABG pH 7.43 (7.35-7.45) 03/20/17 04:25 ABG Total CO2 25.0 mmol/L (22-28) 03/20/17 04:25 ABG O2 Saturation 99.4 % (95-98) H 03/20/17 04:25 ABG Base Excess -0.2 mmol/L (-2.0-3.0) 03/20/17 04:25 ABG Hemoglobin 9.0 g/dL (11.7-17.4) L 03/20/17 04:25 ABG Carboxyhemoglobin 2.1 % (0.5-1.5) H 03/20/17 04:25 POC ABG HHb (Measured) 0.6 % (0.0-5.0) 03/20/17 04:25 ABG Methemoglobin 1.4 % (0.0-3.0) 03/20/17 04:25 Glenn Test Pos 03/20/17 04:25 A-a O2 Difference 11.0 mm/Hg 03/20/17 04:25 Respiratory Index 0.1 03/20/17 04:25 Hgb O2 Saturation 95.9 % (95.0-98.0) 03/20/17 04:25 FiO2 21.0 % 03/20/17 04:25 Sodium 135 mmol/L (132-148) 03/21/17 07:24 Potassium 4.2 mmol/L (3.6-5.2) 03/21/17 07:24 Chloride 101 mmol/L (98-107) 03/21/17 07:24 Carbon Dioxide 31 mmol/L (22-30) H 03/21/17 07:24 Anion Gap 7 (10-20) L 03/21/17 07:24 BUN 23 mg/dL (7-17) H 03/21/17 07:24 Creatinine 2.5 mg/dL (0.7-1.2) H 03/21/17 07:24 Est GFR ( Amer) 28 03/21/17 07:24 Est GFR (Non-Af Amer) 23 03/21/17 07:24 POC Glucose (mg/dL) 336 mg/dL (65-110) H 03/21/17 11:23 Random Glucose 175 mg/dL (65-105) H 03/21/17 07:24 Calcium 8.1 mg/dl (8.6-10.4) L 03/21/17 07:24 Phosphorus 4.3 mg/dL (2.5-4.5) 03/21/17 07:24 Magnesium 2.1 mg/dL (1.6-2.3) 03/21/17 07:24 Total Bilirubin 0.2 mg/dL (0.2-1.3) 03/21/17 07:24 AST 22 U/L (14-36) 03/21/17 07:24 ALT 26 U/L (9-52) 03/21/17 07:24 Alkaline Phosphatase 73 U/L (38-126) 03/21/17 07:24 Total Protein 6.0 g/dL (6.3-8.3) L 03/21/17 07:24 Albumin 2.8 g/dL (3.5-5.0) L 03/21/17 07:24 Globulin 3.2 gm/dL (2.2-3.9) 03/21/17 07:24 Albumin/Globulin Ratio 0.9 (1.0-2.1) L 03/21/17 07:24 Lipase 41 U/L (23-300) 03/20/17 03:59 Urine Color Straw (YELLOW) 03/20/17 06:25 Urine Clarity Clear (Clear) 03/20/17 06:25 Urine pH 7.0 (5.0-8.0) 03/20/17 06:25 Ur Specific [place] 1.018 (1.003-1.030) 03/20/17 06:25 Urine Protein 3+ mg/dL (NEGATIVE) H 03/20/17 06:25 Urine Glucose (UA) 3+ mg/dL (Normal) H 03/20/17 06:25 Urine Ketones Negative mg/dL (NEGATIVE) 03/20/17 06:25 Urine Blood Negative (NEGATIVE) 03/20/17 06:25 Urine Nitrate Negative (NEGATIVE) 03/20/17 06:25 Urine Bilirubin Negative (NEGATIVE) 03/20/17 06:25 Urine Urobilinogen Normal mg/dL (0.2-1.0) 03/20/17 06:25 Ur Leukocyte Esterase Neg Kathy/uL (Negative) 03/20/17 06:25 Urine WBC (Auto) 2 /hpf (0-5) 03/20/17 06:25 Urine RBC (Auto) 1 /hpf (0-3) 03/20/17 06:25 Ur Squamous Epith Cells 2 /hpf (0-5) 03/20/17 06:25 Urine HCG, Qual Negative (NEGATIVE) 03/20/17 06:25 Serum Ketones Negative (NEGATIVE) 03/20/17 03:59 - Hospital Course Hospital Course: HPI (As per admission): Patient is a 26 year old with a past medical history of DM, 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 Patient stated that she had hypoglycemic episode two days ago and have been feeling sick since then. Patient states that she has been nauseous, vomiting with abdominal pain without radiation. Patient denies chest pain, SOB, palpitations but admits to headache and dizziness. Hospital Course: Patient was admitted with the diagnosis of intractable vomiting, hyperglycemia. Patient was managed with appropriate chemical agents and patient started to improve. On the day of admission, patient had a pseudoseizure episode upon arrival to the CT scan, and was given 2mg of Ativan stat and patient recovered with no acute issues. Over the course of admission, patient remained clinically stable with no acute issues. Patient started to tolerate diet and was advanced to regular diet prior to discharge. Patient was discharge upon clearance by medical team with appropriate discharge instructions and medications. Pertinent Imaging: CT abdominal/Pelvis: Thick-walled under distended urinary bladder. Recommend correlation with urinalysis. Rectal wall thickening ; correlate clinically for possibility of proctitis. Moderate diffuse constipation. This is a brief summary of events. For a complete course, please refer to the medical records. Discharge Exam - Head Exam Head Exam: ATRAUMATIC, NORMAL INSPECTION - Eye Exam Eye Exam: EOMI, Normal appearance - ENT Exam ENT Exam: Mucous Membranes Moist - Respiratory Exam Respiratory Exam: Clear to PA & Lateral, NORMAL BREATHING PATTERN - Cardiovascular Exam Cardiovascular Exam: REGULAR RHYTHM, +S1, +S2 - GI/Abdominal Exam GI & Abdominal Exam: Normal Bowel Sounds, Soft. absent: Firm, Guarding, Tenderness - Extremities Exam Extremities exam: normal inspection - Neurological Exam Neurological exam: Alert, Oriented x3 - Psychiatric Exam Psychiatric exam: Normal Affect, Normal Mood - Skin Skin Exam: Normal Color Discharge Plan - Discharge Medications Prescriptions: Labetalol [Trandate] 200 mg PO BID 30 Days #60 tab Metoclopramide [Reglan] 15 mg PO QID 30 Days #120 tab NIFEdipine ER [Procardia XL] 60 mg PO DAILY 30 Days #30 ter - Follow Up Plan Condition: STABLE Disposition: HOME/ ROUTINE Additional Instructions: Please discharge patient home as per Dr. Pantoja Please start the new medications: 1. Nifidepine XL 60mg PO daily 2. Labetalol HCL 200mg PO BID 3. Regalin 15mg PO QID Please check blood pressure before taking medications Please resume all home medications as prescribed by your PMD, Dr. pantoja Please follow up with your teletypesetter, Dr. Rojas as scheduled Please follow up with your sheep and wheat farmer in [place] as scheduled Please follow up with your PMD, Dr. Pantoja within a week Please follow dietary advice as per bottle assembler Please return to the hospital if symptoms worsen or resume Referrals: Reza Pantoja Jr., MD [Medical Doctor] -
[2017-03-21 17:42] VITALS: BP 99/62; PULSE 91; TEMP 97.4; O2SAT 98
[2017-03-23] MEDS ORDERED: Influenza Vaccine 60 mcg/0.5 mL SYR (4YR UP) IM ONE (10:00)
--- NOTE | 2017-03-23 18:30 | CARD ---
APPROVED REPORT EKG Measurement Heart [id number] <Conclusion> Sinus tachycardia Otherwise normal ECG
== END 2017-03-21 19:33 | disposition home or self-care (01) | DRG 533 ==
LOC: SUPCPDRO 03:28 → C.ER 03:28 → C.9E 06:44 → C.3T 08:51
PROVIDERS: ADMIT Internal Medicine; ATTEND Internal Medicine
DX: E10.43 Type 1 diabetes mellitus with diabetic autonomic (poly)neuropathy (principal); N17.9 Acute kidney failure, unspecified; K31.84 Gastroparesis; E10.22 Type 1 diabetes mellitus with diabetic chronic kidney disease; E10.65 Type 1 diabetes mellitus with hyperglycemia; N18.3 Chronic kidney disease, stage 3 (moderate); I12.9 Hypertensive chronic kidney disease with stage 1 through stage 4 chronic kidney disease, or unspecified chronic kidney disease; K59.00 Constipation, unspecified; F44.5 Conversion disorder with seizures or convulsions; Z79.4 Long term (current) use of insulin; Z87.891 Personal history of nicotine dependence

== ENCOUNTER 2017-03-25 16:07 | Inpatient (IN) | payer MEDICAID ==
[2017-03-25 16:07] VITALS: BMI 26.4
--- NOTE | 2017-03-25 16:31 | C.PDOC ---
History Of Present Illness 26 year old female brought in by EMS accompanied by mother for multiple seizures. EMS reports patient is not waking up between seizures, no line was given in the field, ativan was given but patient was still unresponsive. Patient was d/c from the hospital several days ago and as per mother she has been vomiting and unable to tolerate anything by mouth. Upon arrive to the ED patient was unresponsive with no response to commands. Time Seen by Provider: 03/25/17 16:12 History Per: Patient History/Exam Limitations: no limitations Recent Seizure Activity Began: Just Before Arrival Number Of Seizures: One Quality Of Seizure: Generalized Recent travel outside of the [place]: No Additional History Per: Patient Past Medical History Reviewed: Historical Data, Nursing Documentation, Vital Signs Vital Signs: Last Vital Signs Temp 98.7 F 03/25/17 16:15 Pulse 110 H 03/25/17 16:15 Resp 20 03/25/17 16:15 BP 181/118 H 03/25/17 16:15 Pulse Ox 99 03/25/17 16:42 - Medical History PMH: Anemia, Anxiety, Depression, Diabetes, HTN, Seizures Denies: Chronic Kidney Disease Surgical History: No Surg Hx - [facility] Procedures EXCISION OF STOMACH, ENDO, DIAGN (11/02/16) EXCISION OF STOMACH, PYLORUS, ENDO, DIAGN (03/10/17) INSERTION OF INFUSION DEV INTO L SUBCLAV VEIN, PERC APPROACH (10/28/16) INSERTION OF INFUSION DEV INTO SUP VENA CAVA, PERC APPROACH (11/02/16) INTRODUCTION OF NUTRITIONAL INTO PERIPH VEIN, PERC APPROACH (10/16/16) ULTRASONOGRAPHY OF SUPERIOR VENA CAVA, GUIDANCE (10/16/16) Family History: States: Unknown Family Hx - Social History Hx Alcohol Use: Yes (last taken 7 years ago) Hx Substance Use: No - Immunization History Hx Tetanus Toxoid Vaccination: No Hx Influenza Vaccination: Yes Hx Pneumococcal Vaccination: Yes Review Of Systems Review Of Systems: ROS cannot be obtained secondary to pt's inabilty to answer questions. Physical Exam - Physical Exam Appears: Non-toxic, Other (Unresponsive ) Skin: Warm, Diaphoretic Head: Atraumatic, Normacephalic Nose: No Deformity Chest: Symmetrical Cardiovascular: Rhythm Regular, No Murmur Respiratory: Normal Breath Sounds, No Rales, No Rhonchi, No Wheezing Gastrointestinal/Abdominal: Soft, No Tenderness Extremity: No Deformity Neurological/Psych: No Response To Commands ED Course And Treatment - Laboratory Results Result Diagrams: 03/25/17 16:58 03/25/17 16:58 Lab Interpretation: No Acute Changes O2 Sat by Pulse Oximetry: 99 (On RA) Pulse Ox Interpretation: Normal Progress Note: Patient did have a recurrent generalized seizure in ED and was treated with IV Ativan. She has remained somnolent in ED. - Physician Consult Information Time Consulting Physician Contacted: 18:32 Physician Contacted: Reza King Jr. Outcome Of Conversation: Patient to be admitted for status epilepticus Medical Decision Making Medical Decision Making: Patient arrived to the ED still unresponsive, line was placed in her EJ. Disposition - Disposition Disposition: HOSPITALIZED Disposition Time: 18:33 Condition: FAIR - POA Present On Arrival: Poor Glycemic Control - Clinical Impression Clinical Impression: Status epilepticus - Scribe Statement The provider has reviewed the documentation as recorded by the Scribe Andrea Sibley All medical record entries made by the Scribe were at my direction and personally dictated by me. I have reviewed the chart and agree that the record accurately reflects my personal performance of the history, physical exam, medical decision making, and the department course for this patient. I have also personally directed, reviewed, and agree with the discharge instructions and disposition.
[2017-03-25] MEDS ORDERED: Sodium Chloride 0.9% 1,000 ML IV ONE (16:51)
[2017-03-25 17:02] LABS: BASO # 0.1 K/uL (0.0-0.2); BASO % 1.3 % (0.0-2.0); EOS % 0.3 % (0.0-4.0); HEMATOCRIT 32.7 % (34.0-47.0); LYMPH # 0.8 K/uL (1.0-4.3); LYMPH % 8.2 % (20.0-40.0); MEAN CELL VOLUME 84.7 fL (81.0-99.0); MEAN PLATELET VOLUME 10.3 fL (7.2-11.7); MONO # 0.3 K/uL (0.0-0.8); MONO % 3.2 % (0.0-10.0); NRBC % 0.1 % (0.0-2.0); PLATELET COUNT 347 K/uL (130-400); RED CELL DISTRIBUTION WIDTH 14.4 % (11.5-14.5); WHITE BLOOD COUNT 9.9 K/uL (4.8-10.8)
[2017-03-25] MEDS ORDERED: Sodium Chloride 0.9% 1,000 ML ONE (17:02)
[2017-03-25 17:20] LABS: ALB/GLOB RATIO 1.2 (1.0-2.1); BILIRUBIN,TOTAL 0.3 mg/dL (0.2-1.3); CALCIUM 8.1 mg/dl (8.6-10.4); POTASSIUM 3.9 mmol/L (3.6-5.2); TOTAL PROTEIN 5.8 g/dL (6.3-8.3)
[2017-03-25] MEDS ORDERED: Fosphenytoin 1,000 MG in Sodium Chloride 0.9% 50 ML IV STA (17:33)
[2017-03-25] MEDS ORDERED: levETIRAcetam 500 MG in Sodium Chloride 0.9% 100 ML IVPB STA (17:33)
[2017-03-25] MEDS ORDERED: FOSPHENYTOIN IV STA (17:43)
[2017-03-25] MEDS ORDERED: DEXTROSE 5% IV STA (17:43)
[2017-03-25] MEDS ORDERED: WATER IV STA (17:43)
[2017-03-25 17:47] LABS: RBC URINE 4 /hpf (0-3); URINE BACTERIA OCC (<OCC); URINE BILIRUBIN NEGATIVE (NEGATIVE); URINE BLOOD NEGATIVE (NEGATIVE); URINE COLOR Straw (YELLOW); URINE GLUCOSE (UA) 3+ mg/dL (Normal); URINE KETONE NEGATIVE (NEGATIVE); URINE LEUKOCYTE ESTERASE NEG Leu/uL (Negative); URINE PROTEIN 3+ mg/dL (NEGATIVE); URINE UROBILINOGEN NORMAL mg/dL (0.2-1.0); WBC URINE 4 /hpf (0-5)
[2017-03-25 18:12] LABS: NEUTROPHIL 88 % (50-75); TOTAL CELLS COUNTED 100
[2017-03-25 18:14] LABS: LARGE PLATELETS PRESENT
[2017-03-25] MEDS ORDERED: Sodium Chloride 0.9% 1,000 ML IV SCH (21:45)
[2017-03-25] MEDS ORDERED: (Lantus) Insulin Glargine, Recombinant SC SCH (22:00)
--- NOTE | 2017-03-25 22:55 | CP.PCM.HP ---
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 Patient stated that she has been feeling sick for the last 2 weeks but it worsened on Thursday. She says her vomit appeared watery until today when she arrived to the ED it appeared brown. Patient denies any hypoglycemic episodes since her last visit a couples weeks ago and says her glucose has been running in the 300s. Patient denies fever, chills, headache, sore throat, dizziness, chest pain, SOB , palpitations, cough, diarrhea, constipation, blood in stool or urine, dysuria , leg pain, leg swelling, sick contacts, and recent weight change. Patient says her last menstrual period was in March last year which she thinks is due to stress. PMD: Dr. 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, HTN, anxiety, depression, and gastroparesis; [as per EMR: acute renal failure, CKD stage 3, anemia, cholelithiasis, gastritis, upper GI bleed, benzodiazepine withdrawal] SurgHx: denies FamHx: denies Allergies: NKDA Home Meds: Levetiracetam 250mg BID, Metoclopramide 5mg BID, Nifedipine ER 30mg daily, Reglan 15 mg QID, Lantus 15U HS, Insulin lispro 10 U TID, gabapentin, labetalol, feosol, B12, zofran prn SocialHx: lives with mother; denies tobacco/alcohol/illicit drug use; unemployed Present on Admission - Present on Admission Any Indicators Present on Admission: Yes History of Uncontrolled Diabetes: Yes Review of Systems - Review of Systems All systems: reviewed and no additional remarkable complaints except (as per HPI ) Past Patient History - Infectious Disease Hx of Infectious Diseases: None - Past Medical History & Family History Past Medical History?: Yes - Past Social History Smoking Status: Former Smoker - CARDIAC Hx Hypertension: Yes - PULMONARY Hx Respiratory Disorders: No - NEUROLOGICAL Hx Seizures: Yes - HEENT Hx HEENT Problems: Yes Other/Comment: blurred vision both eyes uses eyeglasses - RENAL Hx Chronic Kidney Disease: No - ENDOCRINE/METABOLIC Hx Endocrine Disorders: Yes Hx Diabetes Mellitus Type 1: Yes - HEMATOLOGICAL/ONCOLOGICAL Hx Anemia: Yes - INTEGUMENTARY Hx Dermatological Problems: No - MUSCULOSKELETAL/RHEUMATOLOGICAL Hx Musculoskeletal Disorders: Yes Hx Falls: Yes - GASTROINTESTINAL Hx Gastrointestinal Disorders: Yes (SEE COMMENT) Other/Comment: gastroparesis - GENITOURINARY/GYNECOLOGICAL Hx Genitourinary Disorders: No - PSYCHIATRIC Hx Anxiety: Yes Hx Depression: Yes Hx Substance Use: No - SURGICAL HISTORY Hx Surgeries: No - ANESTHESIA Hx Anesthesia: Yes Hx Anesthesia Reactions: No Meds Allergies/Adverse Reactions: Allergies Allergy/AdvReac Type Severity Reaction Status Date / Time No Known Allergies Allergy Verified 03/25/17 16:40 Physical Exam - Constitutional Appears: Non-toxic, No Acute Distress - Head Exam Head Exam: ATRAUMATIC, NORMAL INSPECTION, NORMOCEPHALIC - Eye Exam Eye Exam: EOMI, Normal appearance, PERRL - ENT Exam ENT Exam: Mucous Membranes Moist - Respiratory Exam Respiratory Exam: Clear to Auscultation Bilateral, NORMAL BREATHING PATTERN. absent: Accessory Muscle Use, Rales, Rhonchi, Wheezes, Respiratory Distress - Cardiovascular Exam Cardiovascular Exam: RRR, +S1, +S2, Systolic Murmur (2/6 ) - GI/Abdominal Exam GI & Abdominal Exam: Normal Bowel Sounds, Soft, Tenderness (epigastric ). absent: Distended - Extremities Exam Extremities exam: Positive for: normal inspection - Neurological Exam Neurological exam: Alert, Oriented x3 - Psychiatric Exam Psychiatric exam: Flat Affect, Normal Mood - Skin Skin Exam: Dry, Intact, Normal Color, Warm Results - Vital Signs Recent Vital Signs: Last Vital Signs Temp 98.7 F 03/25/17 16:15 Pulse 99 H 03/25/17 22:02 Resp 17 03/25/17 22:02 BP 124/86 03/25/17 22:02 Pulse Ox 99 03/25/17 18:34 - Labs Result Diagrams: 03/25/17 16:58 03/25/17 16:58 Labs: Laboratory Results - last 24 hr 03/25/17 03/25/17 03/25/17 16:21 16:58 16:58 WBC 9.9 RBC 3.86 Hgb 10.8 L Hct 32.7 L MCV 84.7 MCH 28.0 MCHC 33.0 RDW 14.4 Plt Count 347 MPV 10.3 Neut % (Auto) 87.0 H Lymph % (Auto) 8.2 L Harney % (Auto) 3.2 Eos % (Auto) 0.3 Baso % (Auto) 1.3 Neut # 8.6 H Lymph # 0.8 L Harney # 0.3 Eos # 0.0 Baso # 0.1 Neutrophils % (Manual) 88 H Band Neutrophils % 2 Lymphocytes % (Manual) 8 L Monocytes % (Manual) 2 Hypersegmented Polys Present Platelet Estimate Normal Large Platelets Present Hypochromasia (manual) Slight Microcytosis (manual) Slight Rouleaux Slight Sodium 135 Potassium 3.9 Chloride 102 Carbon Dioxide 26 Anion Gap 11 BUN 13 Creatinine 2.0 H Est GFR ( Amer) 36 Est GFR (Non-Af Amer) 30 POC Glucose (mg/dL) 294 H Random Glucose 294 H Calcium 8.1 L Total Bilirubin 0.3 AST 17 ALT 33 Alkaline Phosphatase 99 Total Protein 5.8 L Albumin 3.1 L Globulin 2.7 Albumin/Globulin Ratio 1.2 Urine Color Urine Clarity Urine pH Ur Specific Martin Urine Protein Urine Glucose (UA) Urine Ketones Urine Blood Urine Nitrate Urine Bilirubin Urine Urobilinogen Ur Leukocyte Esterase Urine WBC (Auto) Urine RBC (Auto) Ur Squamous Epith Cells Urine Bacteria Hyaline Casts Urine HCG, Qual Urine Opiates Screen Urine Methadone Screen Ur Barbiturates Screen Phenytoin Ur Phencyclidine Scrn Ur Amphetamines Screen U Benzodiazepines Scrn U Oth Cocaine Metabols U Cannabinoids Screen 03/25/17 03/25/17 03/25/17 16:58 17:22 17:22 WBC RBC Hgb Hct MCV MCH MCHC RDW Plt Count MPV Neut % (Auto) Lymph % (Auto) Harney % (Auto) Eos % (Auto) Baso % (Auto) Neut # Lymph # Harney # Eos # Baso # Neutrophils % (Manual) Band Neutrophils % Lymphocytes % (Manual) Monocytes % (Manual) Hypersegmented Polys Platelet Estimate Large Platelets Hypochromasia (manual) Microcytosis (manual) Rouleaux Sodium Potassium Chloride Carbon Dioxide Anion Gap BUN Creatinine Est GFR ( Amer) Est GFR (Non-Af Amer) POC Glucose (mg/dL) Random Glucose Calcium Total Bilirubin AST ALT Alkaline Phosphatase Total Protein Albumin Globulin Albumin/Globulin Ratio Urine Color Straw Urine Clarity Clear Urine pH 6.0 Ur Specific Martin 1.011 Urine Protein 3+ H Urine Glucose (UA) 3+ H Urine Ketones Negative Urine Blood Negative Urine Nitrate Negative Urine Bilirubin Negative Urine Urobilinogen Normal Ur Leukocyte Esterase Neg Urine WBC (Auto) 4 Urine RBC (Auto) 4 H Ur Squamous Epith Cells 3 Urine Bacteria Occ H Hyaline Casts 3-5 H Urine HCG, Qual Urine Opiates Screen Negative Urine Methadone Screen Negative Ur Barbiturates Screen Positive H Phenytoin < 3.0 L Ur Phencyclidine Scrn Negative Ur Amphetamines Screen Negative U Benzodiazepines Scrn Negative U Oth Cocaine Metabols Negative U Cannabinoids Screen Negative 03/25/17 17:22 WBC RBC Hgb Hct MCV MCH MCHC RDW Plt Count MPV Neut % (Auto) Lymph % (Auto) Harney % (Auto) Eos % (Auto) Baso % (Auto) Neut # Lymph # Harney # Eos # Baso # Neutrophils % (Manual) Band Neutrophils % Lymphocytes % (Manual) Monocytes % (Manual) Hypersegmented Polys Platelet Estimate Large Platelets Hypochromasia (manual) Microcytosis (manual) Rouleaux Sodium Potassium Chloride Carbon Dioxide Anion Gap BUN Creatinine Est GFR ( Amer) Est GFR (Non-Af Amer) POC Glucose (mg/dL) Random Glucose Calcium Total Bilirubin AST ALT Alkaline Phosphatase Total Protein Albumin Globulin Albumin/Globulin Ratio Urine Color Urine Clarity Urine pH Ur Specific Martin Urine Protein Urine Glucose (UA) Urine Ketones Urine Blood Urine Nitrate Urine Bilirubin Urine Urobilinogen Ur Leukocyte Esterase Urine WBC (Auto) Urine RBC (Auto) Ur Squamous Epith Cells Urine Bacteria Hyaline Casts Urine HCG, Qual Negative Urine Opiates Screen Urine Methadone Screen Ur Barbiturates Screen Phenytoin Ur Phencyclidine Scrn Ur Amphetamines Screen U Benzodiazepines Scrn U Oth Cocaine Metabols U Cannabinoids Screen Assessment & Plan - Assessment and Plan (Free Text) Plan: Intractable vomiting * likely 2/2 gastroparesis * Reglan 15 mg IV QID * Zofran PRN * NPO * Hold home insulin * NS @50cc/h Uncontrolled Diabetes * ISS * Accuchecks ACHS * Hypoglycemia protocol * Gabapentin 300 mg TID History of acute kidney injury * BUN/Cr: 13/2 * NS @50cc/h History of HTN * Start Home Meds: Labetalol 200 mg BID, nifedipine 60 mg QD * monitor History of anemia * Home meds: Feosol 325mg PO BID, Vitamin B12 1,000mcg PO daily * Monitor H&H History of seizures and pesudoseizures * Keppra 250 mg BID * Ativan 0.5 mg PRN Prophylactic measure * Protonix * Ambulating
[2017-03-26] MEDS ORDERED: Dextrose 50% VIAL Inj (50 ml) IV PRN (00:50)
[2017-03-26] MEDS ORDERED: Glucagon Recombinant 1 mg Inj IM PRN (00:50)
[2017-03-26 08:11] LABS: BASO # 0.1 K/uL (0.0-0.2); BASO % 1.3 % (0.0-2.0); EOS # 0.1 K/uL (0.0-0.7); EOS % 0.9 % (0.0-4.0); LYMPH # 2.5 K/uL (1.0-4.3); LYMPH % 27.9 % (20.0-40.0); MEAN CELL VOLUME 85.1 fL (81.0-99.0); MEAN CORPUSCULAR HEMOGLOBIN 28.7 pg (27.0-31.0); MEAN CORPUSCULAR HGB CONC 33.8 g/dL (33.0-37.0); MEAN PLATELET VOLUME 9.4 fL (7.2-11.7); MONO # 0.7 K/uL (0.0-0.8); MONO % 7.6 % (0.0-10.0); NRBC % 0.1 % (0.0-2.0); RED CELL DISTRIBUTION WIDTH 14.8 % (11.5-14.5); WHITE BLOOD COUNT 9.1 K/uL (4.8-10.8)
[2017-03-26] MEDS: (Novolin R) Insulin Human Regular 100 units/ml vial SC SCH ×4 (08:29→21:44)
[2017-03-26 08:33] LABS: ALB/GLOB RATIO 0.8 (1.0-2.1); BILIRUBIN,TOTAL 0.3 mg/dL (0.2-1.3); CALCIUM 7.7 mg/dl (8.6-10.4); MAGNESIUM 2.1 mg/dL (1.6-2.3); PHOSPHOROUS 3.3 mg/dL (2.5-4.5); POTASSIUM 4.1 mmol/L (3.6-5.2)
[2017-03-26] MEDS ORDERED: (Novolog) Insulin Aspart, Recombinant 100 u/ml 10 ml vial SC SCH (09:00)
[2017-03-26] MEDS: NIFEdipine 30 mg ER Tab PO SCH (11:18)
[2017-03-26] MEDS: Sodium Chloride 0.9% 1,000 ML IV SCH (11:19)
[2017-03-26 16:10] VITALS: RESP 20
--- NOTE | 2017-03-26 17:46 | CP.PCM.PN ---
Subjective - Date & Time of Evaluation Date of Evaluation: 03/26/17 Time of Evaluation: 09:10 - Subjective Subjective: Medicine Note ( PGY-1)-----> Dr. King's service Patient was seen and examined at bedside. Patient's mother was at bedside. Patient states that she is doing well and her symptoms have improved significantly. Patient admits to nausea but denies vomiting, headache, chest pain, SOB, palpitations, dizziness and abdominal pain. Objective - Vital Signs/Intake and Output Vital Signs (last 24 hours): Temp Pulse Resp BP Pulse Ox 97.7 F 88 20 120/63 100 03/26/17 16:10 03/26/17 16:10 03/26/17 16:10 03/26/17 16:10 03/26/17 16:10 - Medications Medications: Current Medications Cyanocobalamin (Vitamin B12 1000 Mcg Tab) 1,000 mcg PO DAILY COUNT INCLUDES THE [facility] Last Admin: 03/26/17 11:17 Dose: 1,000 mcg Dextrose (Dextrose 50%) 0 ml IV STAT PRN; Protocol PRN Reason: Hypoglycemia Protocol Dextrose (Glutose 15) 0 gm PO ONCE PRN; Protocol PRN Reason: Hypoglycemia Protocol Ferrous Sulfate (Feosol) 325 mg PO BID COUNT INCLUDES THE [facility] Last Admin: 03/26/17 17:31 Dose: 325 mg Gabapentin (Neurontin) 300 mg PO TID COUNT INCLUDES THE [facility] Last Admin: 03/26/17 17:31 Dose: 300 mg Glucagon (Glucagen Diagnostic Kit) 0 mg IM STAT PRN; Protocol PRN Reason: Hypoglycemia Protocol Sodium Chloride (Sodium Chloride 0.9%) 1,000 mls @ 50 mls/hr IV .Q20H COUNT INCLUDES THE [facility] Last Admin: 03/26/17 11:19 Dose: 50 mls/hr Dextrose (Dextrose 5% In Water 1000 Ml) 1,000 mls @ 0 mls/hr IV .Q0M PRN; Protocol; Per Protocol PRN Reason: Hypoglycemia Protocol Insulin Human Regular (Novolin R) 0 unit SC ACHS COUNT INCLUDES THE [facility] PRN Reason: Protocol Last Admin: 03/26/17 17:32 Dose: 1 unit Labetalol HCl (Trandate) 200 mg PO BID COUNT INCLUDES THE [facility] Last Admin: 03/26/17 17:32 Dose: 200 mg Levetiracetam (Keppra) 250 mg PO BID COUNT INCLUDES THE [facility] Last Admin: 03/26/17 17:31 Dose: 250 mg Lorazepam (Ativan) 0.5 mg IVP Q6H PRN PRN Reason: Anxiety Metoclopramide HCl (Reglan) 15 mg IVP QID COUNT INCLUDES THE [facility] Last Admin: 03/26/17 15:00 Dose: 15 mg Nifedipine (Procardia Xl) 60 mg PO DAILY COUNT INCLUDES THE [facility] Last Admin: 03/26/17 11:18 Dose: 60 mg Ondansetron HCl (Zofran Odt) 4 mg PO BID PRN PRN Reason: Nausea/Vomiting Pantoprazole Sodium (Protonix Inj) 40 mg IVP DAILY COUNT INCLUDES THE [facility] Last Admin: 03/26/17 11:16 Dose: 40 mg - Labs Labs: 03/26/17 08:05 03/26/17 08:05 - Constitutional Appears: Well, No Acute Distress - Eye Exam Eye Exam: EOMI, Normal appearance - ENT Exam ENT Exam: Mucous Membranes Moist - Respiratory Exam Respiratory Exam: Clear to Ausculation Bilateral, NORMAL BREATHING PATTERN - Cardiovascular Exam Cardiovascular Exam: Tachycardia, +S1, +S2 - GI/Abdominal Exam GI & Abdominal Exam: Soft, Normal Bowel Sounds. absent: Guarding, Rigid, Tenderness - Extremities Exam Extremities Exam: Normal Inspection. absent: Calf Tenderness, Pedal Edema Additional comments: Right hand edema> left hand edema - Neurological Exam Neurological Exam: Alert, Awake, Oriented x3 - Psychiatric Exam Psychiatric exam: Anxious, Normal Affect - Skin Skin Exam: Normal Color Assessment and Plan (1) Intractable vomiting Assessment & Plan: Secondary to diabetic gastroparesis Medication/Management:; * Reglan 15mg IV QID * Zofran 4mg PO BID prn * Advance diet as tolerated * NS @ 50mls/hr Status: Chronic (2) Acute kidney injury Assessment & Plan: BUN/Cr: 19/1.6 * NS @ 50mls/hr Status: Acute (3) Uncontrolled diabetes mellitus Assessment & Plan: Accuchecks ISS-Medium dose protocol Hypoglycemia protocol Status: Acute (4) History of hypertension Assessment & Plan: Continue home medications: * Labetalol 200mg PO TID * Nifedipine 60mg PO daily * Monitor with vital signs Status: Acute (5) History of pseudoseizure Assessment & Plan: Continue home medications: * Keppra 250mg PO BID Status: Acute (6) History of anemia Assessment & Plan: H/H stable Continue home medications: * Feosol 325mg PO BID * Vitamin B12 1,000mcg PO daily Status: Acute (7) Generalized anxiety disorder Assessment & Plan: Medications: * Trazadone 50mg PO HS Status: Acute (8) Prophylactic measure Assessment & Plan: GI: Protonix 40mg IVP daily DVT:SCDs Status: Acute
[2017-03-27] MEDS: Sodium Chloride 0.9% 1,000 ML IV SCH (03:45)
[2017-03-27] MEDS: (Novolin R) Insulin Human Regular 100 units/ml vial SC SCH ×4 (06:52→21:52)
[2017-03-27 07:59] LABS: BASO # 0.1 K/uL (0.0-0.2); EOS # 0.1 K/uL (0.0-0.7); EOS % 2.3 % (0.0-4.0); HEMATOCRIT 30.3 % (34.0-47.0); LYMPH # 1.4 K/uL (1.0-4.3); MEAN CELL VOLUME 86.3 fL (81.0-99.0); MEAN CORPUSCULAR HEMOGLOBIN 28.6 pg (27.0-31.0); MEAN CORPUSCULAR HGB CONC 33.1 g/dL (33.0-37.0); MONO # 0.4 K/uL (0.0-0.8); MONO % 7.1 % (0.0-10.0); NRBC % 0.2 % (0.0-2.0); RED CELL DISTRIBUTION WIDTH 14.5 % (11.5-14.5); WHITE BLOOD COUNT 5.5 K/uL (4.8-10.8)
[2017-03-27 08:47] LABS: ALB/GLOB RATIO 1.2 (1.0-2.1); BILIRUBIN,TOTAL 0.3 mg/dL (0.2-1.3); CALCIUM 7.9 mg/dl (8.6-10.4); MAGNESIUM 1.8 mg/dL (1.6-2.3); PHOSPHOROUS 3.6 mg/dL (2.5-4.5); POTASSIUM 4.9 mmol/L (3.6-5.2); TOTAL PROTEIN 4.9 g/dL (6.3-8.3)
[2017-03-27] MEDS: NIFEdipine 30 mg ER Tab PO SCH (09:47)
--- NOTE | 2017-03-27 16:09 | CP.PCM.PN ---
Subjective - Date & Time of Evaluation Date of Evaluation: 03/27/17 Time of Evaluation: 09:00 - Subjective Subjective: Medicine Note ( PGY-1)----> Dr. King's service Patient was seen and examined at bedside. Patient states that her symptoms are improving. Patient is tolerating diet as advanced. Patient denies nausea, vomiting, abdominal pain, chest pain, SOB, palpitations. However, patient remains very anxious. Objective - Vital Signs/Intake and Output Vital Signs (last 24 hours): Temp Pulse Resp BP Pulse Ox 98.1 F 89 20 173/110 H 95 03/27/17 08:02 03/27/17 08:02 03/27/17 08:02 03/27/17 08:02 03/27/17 08:02 Intake and Output: 03/27/17 03/27/17 06:59 18:59 Intake Total 800 280 Balance 800 280 - Medications Medications: Current Medications Cyanocobalamin (Vitamin B12 1000 Mcg Tab) 1,000 mcg PO DAILY [facility] Last Admin: 03/27/17 09:49 Dose: 1,000 mcg Dextrose (Dextrose 50%) 0 ml IV STAT PRN; Protocol PRN Reason: Hypoglycemia Protocol Dextrose (Glutose 15) 0 gm PO ONCE PRN; Protocol PRN Reason: Hypoglycemia Protocol Docusate Sodium (Colace) 100 mg PO BID [facility] Last Admin: 03/27/17 09:46 Dose: 100 mg Ferrous Sulfate (Feosol) 325 mg PO BID [facility] Last Admin: 03/27/17 09:48 Dose: 325 mg Glucagon (Glucagen Diagnostic Kit) 0 mg IM STAT PRN; Protocol PRN Reason: Hypoglycemia Protocol Dextrose (Dextrose 5% In Water 1000 Ml) 1,000 mls @ 0 mls/hr IV .Q0M PRN; Protocol; Per Protocol PRN Reason: Hypoglycemia Protocol Insulin Human Regular (Novolin R) 0 unit SC ACHS [facility] PRN Reason: Protocol Last Admin: 03/27/17 12:08 Dose: 10 unit Labetalol HCl (Trandate) 200 mg PO BID [facility] Last Admin: 03/27/17 09:47 Dose: 200 mg Levetiracetam (Keppra) 250 mg PO BID [facility] Last Admin: 03/27/17 09:49 Dose: 250 mg Metoclopramide HCl (Reglan) 15 mg IVP QID [facility] Last Admin: 03/27/17 13:12 Dose: 15 mg Nifedipine (Procardia Xl) 60 mg PO DAILY [facility] Last Admin: 03/27/17 09:47 Dose: 60 mg Ondansetron HCl (Zofran Odt) 4 mg PO BID PRN PRN Reason: Nausea/Vomiting Pantoprazole Sodium (Protonix Inj) 40 mg IVP DAILY [facility] Last Admin: 03/27/17 09:49 Dose: 40 mg Sennosides (Senokot Tab) 17.2 mg PO DAILY [facility] Last Admin: 03/27/17 09:46 Dose: 17.2 mg Trazodone HCl (Desyrel) 50 mg PO HS [facility] Last Admin: 03/26/17 21:38 Dose: 50 mg - Labs Labs: 03/27/17 07:33 03/27/17 07:33 - Constitutional Appears: Well, No Acute Distress - Head Exam Head Exam: ATRAUMATIC, NORMAL INSPECTION - Eye Exam Eye Exam: EOMI, Normal appearance - ENT Exam ENT Exam: Mucous Membranes Moist - Respiratory Exam Respiratory Exam: Clear to Ausculation Bilateral, NORMAL BREATHING PATTERN - Cardiovascular Exam Cardiovascular Exam: Tachycardia, REGULAR RHYTHM, +S1, +S2 - GI/Abdominal Exam GI & Abdominal Exam: Soft, Normal Bowel Sounds. absent: Distended, Firm, Guarding, Tenderness - Extremities Exam Extremities Exam: Normal Inspection. absent: Calf Tenderness, Pedal Edema - Neurological Exam Neurological Exam: Alert, Awake, Oriented x3 - Psychiatric Exam Psychiatric exam: Anxious, Normal Affect - Skin Skin Exam: Normal Color Assessment and Plan (1) Intractable vomiting Assessment & Plan: Secondary to diabetic gastroparesis Medication/Management:; * Reglan 15mg IV QID * Zofran 4mg PO BID prn * Advance diet as tolerated * NS @ 50mls/hr ----> held due to elevated BP Status: Chronic (2) Acute kidney injury Assessment & Plan: BUN/Cr: 19/1.6 * NS @ 50mls/hr - held due to elevated BP * Continue to monitor with am labs Status: Acute (3) Uncontrolled diabetes mellitus Assessment & Plan: Accuchecks ISS-- High dose protocol Hypoglycemia protocol Status: Acute (4) History of hypertension Assessment & Plan: Continue home medications: * Labetalol 200mg PO TID * Nifedipine 60mg PO daily * Monitor with vital signs Status: Acute (5) History of pseudoseizure Assessment & Plan: Continue home medications: * Keppra 250mg PO BID Status: Acute (6) History of anemia Assessment & Plan: H/H stable Continue home medications: * Feosol 325mg PO BID * Vitamin B12 1,000mcg PO daily Status: Acute (7) Generalized anxiety disorder Assessment & Plan: Medications: * Trazadone 50mg PO HS Status: Acute (8) Prophylactic measure Assessment & Plan: GI: Protonix 40mg IVP daily DVT:SCDs Status: Acute
[2017-03-28 01:33] VITALS: O2SAT 97
[2017-03-28] MEDS ORDERED: Metoprolol 1 mg/ml Inj IVP ONE (05:14)
[2017-03-28] MEDS: (Novolin R) Insulin Human Regular 100 units/ml vial SC SCH ×2 (06:05→06:50)
[2017-03-28] MEDS ORDERED: (Novolin R) Insulin Human Regular 100 units/ml vial SC ONE ×2 (07:21→10:00)
[2017-03-28 08:08] VITALS: TEMP 98.3
[2017-03-28 08:12] LABS: BASO # 0.1 K/uL (0.0-0.2); BASO % 1.4 % (0.0-2.0); EOS # 0.1 K/uL (0.0-0.7); EOS % 2.2 % (0.0-4.0); HEMATOCRIT 28.8 % (34.0-47.0); LYMPH # 1.7 K/uL (1.0-4.3); LYMPH % 25.7 % (20.0-40.0); MEAN CELL VOLUME 85.6 fL (81.0-99.0); MEAN CORPUSCULAR HEMOGLOBIN 28.7 pg (27.0-31.0); MEAN CORPUSCULAR HGB CONC 33.5 g/dL (33.0-37.0); MEAN PLATELET VOLUME 9.7 fL (7.2-11.7); MONO # 0.4 K/uL (0.0-0.8); MONO % 5.9 % (0.0-10.0); RED CELL DISTRIBUTION WIDTH 13.9 % (11.5-14.5); WHITE BLOOD COUNT 6.4 K/uL (4.8-10.8)
[2017-03-28 09:21] LABS: ALB/GLOB RATIO 1.1 (1.0-2.1); BILIRUBIN,TOTAL 0.3 mg/dL (0.2-1.3); CALCIUM 7.7 mg/dl (8.6-10.4); MAGNESIUM 1.7 mg/dL (1.6-2.3); PHOSPHOROUS 2.9 mg/dL (2.5-4.5); POTASSIUM 4.2 mmol/L (3.6-5.2); TOTAL PROTEIN 4.6 g/dL (6.3-8.3)
[2017-03-28] MEDS: NIFEdipine 30 mg ER Tab PO SCH (10:18)
[2017-03-28] MEDS ORDERED: (Novolin R) Insulin Human Regular 100 units/ml vial SC SCH (11:24)
--- NOTE | 2017-03-28 11:56 | CT ---
PROCEDURE: CT HEAD WITHOUT CONTRAST. HISTORY: seizure, [employer] COMPARISON: Comparison is made to 10/16/2022 TECHNIQUE: Axial computed tomography images were obtained through the head/brain without intravenous contrast. Radiation dose: Total exam DLP = 986.66 mGy-cm. This CT exam was performed using one or more of the following dose reduction techniques: Automated exposure control, adjustment of the mA and/or kV according to patient size, and/or use of iterative reconstruction technique. FINDINGS: HEMORRHAGE: No intracranial hemorrhage. BRAIN: No mass effect or edema. No atrophy or chronic microvascular ischemic changes. VENTRICLES: Unremarkable. No hydrocephalus. CALVARIUM: Unremarkable. PARANASAL SINUSES: Unremarkable as visualized. No significant inflammatory changes. MASTOID AIR CELLS: Unremarkable as visualized. No inflammatory changes. OTHER FINDINGS: None. IMPRESSION: Normal CT of the Head.
--- NOTE | 2017-03-28 12:07 | PCM.RRT ---
<Ryan Urbanoen H - Last Filed: 03/28/17 12:03> [employer] Nurses Assessment - Situation Date: 03/28/17 Time [employer]OVER was called: 11:05 [employer] Responder Arrival Time:: 11:08 [employer] Location:: radiology [employer] Reason for Call: Change in Mental Status [employer] MOVER Called By: Other Disciplines - IV IV Inserted during TRUCK DOCK MATERIAL MOVER?: No - Diagnostic Test Ordered EKG: Yes CT Scan: Yes (head) Other Diagnostic Test Ordered: edgardo, prolactin - Stat Labs Ordered [employer] MOVER Stat Labs Ordered: TROPONIN [employer]ERIAL MOVER Other Labs Ordered: prolactin CPR started during TRUCK DOCK MATERIAL MOVER?: No - Baker Coma Scale Coma Scale Eye Opening: Spontaneous Coma Scale Motor: Movement to pain stimulus Coma Scale Verbal: Oriented Coma Scale Total: 14 - Time [employer] MOVER Ended Time [employer] MOVER Ended: 11:40 - Recommendations 5) [employer] M[employer] Level of Care Recommendations: Remain in current setting Notifications: Attending Physician <Bhavani Palafox V - Last Filed: 03/28/17 21:41> Attending/Attestation - Attestation I have personally seen and examined this patient.: Yes I have fully participated in the care of the patient.: Yes I have reviewed all pertinent clinical information, including history, physical exam and plan: Yes Notes (Text): [employer]OVER NOTE: witnessed questionable seizure? hx of known pseudoseizure Patient was in the radiology suite. Staff witnessed that patient was shaking in her chair and slid (not fall) from wheel chair to the floor. Patient had completed chest xray prior. Patient seen in lying on the floor. No head trauma observed. Patient has palpable pulse, does not appear to respond to sternal rub. However with resident at bedside, patient did blink. patient with known history of pseudoseizure. Patient shortly "came out" of her "seizure" was able to turn her head on her own without difficulty. Patient has no sign of urinary incontinence. Patient's gown is not wet. There are no visible signs of trauma, no ecchymoses, no bruising over the scalp nor arms. Patient speaking clearly in sentences. Patient was not given ativan. Accucheck: 127. vital signs stable. I've ordered CT head w/o contrast which negative. EKG and EDGARDO given she is young lady with type 1 diabetes which reflect NSR and Negative EDGARDO. Procalcitonin: is low. I discussed the patient with Dr. King. patient with known history of pseudoseizure. Patient has completed video eeg in the past which supports she does not have a seizure disorder. My concern given the wavering of her sugars from 400s to 120s but patient is known to manipulate. Patient re-evaluated on the floor. patient is stable. Attending discussed with her yesterday she was for discharge today. Patient observed on [employer] system. Primary attending to see and evaluate with resident later today.
--- NOTE | 2017-03-28 12:20 | CP.PCM.PN ---
Subjective - Date & Time of Evaluation Date of Evaluation: 03/28/17 Time of Evaluation: 08:40 - Subjective Subjective: PGY3 Medicine Note - Dr. King's service: Patient seen and examined at bedside this AM. Patient's sugar and blood pressure elevated over night. Per nursing, patient had pseudoseizure x2 overnight. Patient reports feeling sore in her chest and back. Patient denies losing control of bladder or bowel during what she calls a seizure. Patient does not have pain in mouth or tongue. Patient reports a cough productive of white phlegm. FRONT DESK ATTENDANT called at 11:05 when patient went to radiology for CXR. Patient was seen shaking in her wheel chair by radiology payroll secretary. Patient slipped out of her chair onto the ground before payroll secretary got to her. Patient did not hit her head per the payroll secretary. Patient was not verbally responding when we arrived. Patient did blink her eyes when I moved my hand close to them. Patient looked back and forth when Dr. Palafox sterngeorges rubbed her. Patient started verbally responding once the nurse told her to respond to us. Patient asked what happened and said she feels okay when asked. Patient was able to move her head back and forth. Patient went for Head CT and CXR directly. EDGARDO, prolactin and EKG ordered. Once patient was back on [address] she reported a headache to me. Patient given Tylenol and put on video monitoring. Patient will be re- assessed later in the day. Will review diagnostic imaging and lab work once resulted. Objective - Vital Signs/Intake and Output Vital Signs (last 24 hours): Temp Pulse Resp BP Pulse Ox 98.3 F 101 H 20 102/66 97 03/28/17 08:07 03/28/17 08:07 03/28/17 08:07 03/28/17 08:07 03/28/17 08:07 Intake and Output: 03/28/17 03/28/17 06:59 18:59 Intake Total 600 Balance 600 - Medications Medications: Current Medications Acetaminophen (Tylenol 325mg Tab) 650 mg PO Q6 PRN PRN Reason: Headache Cyanocobalamin (Vitamin B12 1000 Mcg Tab) 1,000 mcg PO DAILY [facility] Last Admin: 03/28/17 10:19 Dose: 1,000 mcg Dextrose (Dextrose 50%) 0 ml IV STAT PRN; Protocol PRN Reason: Hypoglycemia Protocol Dextrose (Glutose 15) 0 gm PO ONCE PRN; Protocol PRN Reason: Hypoglycemia Protocol Docusate Sodium (Colace) 100 mg PO BID [facility] Last Admin: 03/28/17 10:15 Dose: 100 mg Ferrous Sulfate (Feosol) 325 mg PO BID [facility] Last Admin: 03/28/17 10:15 Dose: 325 mg Glucagon (Glucagen Diagnostic Kit) 0 mg IM STAT PRN; Protocol PRN Reason: Hypoglycemia Protocol Dextrose (Dextrose 5% In Water 1000 Ml) 1,000 mls @ 0 mls/hr IV .Q0M PRN; Protocol; Per Protocol PRN Reason: Hypoglycemia Protocol Insulin Human Regular (Novolin R) 0 unit SC ACHS [facility] PRN Reason: Protocol Labetalol HCl (Trandate) 200 mg PO BID [facility] Last Admin: 03/28/17 10:19 Dose: Not Given Levetiracetam (Keppra) 250 mg PO BID [facility] Last Admin: 03/28/17 10:16 Dose: 250 mg Lorazepam (Ativan) 1 mg IVP Q6H PRN PRN Reason: Seizure activity Last Admin: 03/28/17 11:49 Dose: 1 mg Metoclopramide HCl (Reglan) 15 mg IVP QID [facility] Last Admin: 03/28/17 10:15 Dose: 15 mg Nifedipine (Procardia Xl) 60 mg PO DAILY [facility] Last Admin: 03/28/17 10:18 Dose: Not Given Ondansetron HCl (Zofran Odt) 4 mg PO BID PRN PRN Reason: Nausea/Vomiting Pantoprazole Sodium (Protonix Inj) 40 mg IVP DAILY [facility] Last Admin: 03/28/17 10:18 Dose: 40 mg Sennosides (Senokot Tab) 17.2 mg PO DAILY [facility] Last Admin: 03/28/17 10:18 Dose: 17.2 mg Trazodone HCl (Desyrel) 50 mg PO HS [facility] Last Admin: 03/27/17 21:52 Dose: 50 mg - Labs Labs: 03/28/17 07:57 03/28/17 07:57 - Constitutional Appears: Non-toxic, No Acute Distress - Head Exam Head Exam: NORMAL INSPECTION - Eye Exam Eye Exam: EOMI - ENT Exam ENT Exam: Mucous Membranes Moist - Respiratory Exam Respiratory Exam: Chest Wall Tenderness, Rhonchi, NORMAL BREATHING PATTERN. absent: Clear to Ausculation Bilateral (LLL rhonchi), Rales, Wheezes - Cardiovascular Exam Cardiovascular Exam: REGULAR RHYTHM, +S1, +S2. absent: Gallop, Rubs, Murmur - GI/Abdominal Exam GI & Abdominal Exam: Soft, Normal Bowel Sounds. absent: Tenderness - Extremities Exam Extremities Exam: absent: Pedal Edema - Neurological Exam Neurological Exam: Alert, Awake, Oriented x3 - Psychiatric Exam Psychiatric exam: Normal Affect, Normal Mood - Skin Skin Exam: Normal Color, Warm Assessment and Plan - Assessment and Plan (Free Text) Assessment: Cough Assessment & Plan: F/U CXR official report - haziness seen in left lower lobe Will discuss adding an antibiotic with Dr. King Status: Chronic Intractable vomiting Assessment & Plan: Secondary to diabetic gastroparesis Medication/Management:; * Reglan 15mg IV QID * Zofran 4mg PO BID prn * Advance diet as tolerated, currently on soft, dysphagia diet * NS @ 50mls/hr ----> held due to elevated BP Status: Chronic Acute kidney injury Assessment & Plan: BUN/Cr: 17/1.9 * NS @ 50mls/hr - held due to elevated BP * Continue to monitor with am labs Status: Acute Uncontrolled diabetes mellitus Assessment & Plan: Accuchecks ISS-- High dose protocol - switched to low dose protocol by Dr. Palafox after FRONT DESK ATTENDANT Hypoglycemia protocol Status: Acute History of hypertension Assessment & Plan: Continue home medications: * Labetalol 200mg PO TID * Nifedipine 60mg PO daily * Monitor with vital signs Status: Acute History of pseudoseizure Assessment & Plan: Continue home medications: * Keppra 250mg PO BID Added PRN Ativan today after FRONT DESK ATTENDANT Head CT 03/28/17 negative F/U prolactin level, EDGARDO and EKG Status: Acute History of anemia Assessment & Plan: H/H stable Continue home medications: * Feosol 325mg PO BID * Vitamin B12 1,000mcg PO daily Status: Acute Generalized anxiety disorder Assessment & Plan: Medications: * Trazadone 50mg PO HS Status: Acute Prophylactic measure Assessment & Plan: GI: Protonix 40mg IVP daily DVT:SCDs Status: Acute
--- NOTE | 2017-03-28 13:00 | RAD ---
HISTORY: cough and LLL rhonchi COMPARISON: Comparison is made to 03/20/2017 TECHNIQUE: Chest PA and lateral FINDINGS: LUNGS: There is suspicious for small infiltrate at the left lower lobe retrocardiac region. PLEURA: No significant pleural effusion identified. No pneumothorax apparent. CARDIOVASCULAR: Normal. OSSEOUS STRUCTURES: No significant abnormalities. VISUALIZED UPPER ABDOMEN: Normal. OTHER FINDINGS: None. IMPRESSION: Suspicious for small infiltrate at the left lower lobe may represent a pneumonia.
--- NOTE | 2017-03-28 13:44 | CP.PCM.DIS ---
Provider - Provider Date of Admission: 03/25/17 19:09 Attending physician: Reza King Jr, MD Primary care physician: Dr. King Time Spent in preparation of Discharge (in minutes): 35 Diagnosis - Discharge Diagnosis (1) History of hypertension Status: Acute Comment: Continue home medications (2) History of pseudoseizure Status: Acute Comment: Patient had video EEG which showed her having "seizures" on the video without any abnormal electrical activity per Dr. King. Continue Keppra (3) Uncontrolled diabetes mellitus Status: Acute Comment: Patient given insulin sliding scale. Patient awaiting insulin pump (4) Abdominal pain with vomiting Status: Acute Comment: Likely secondary to diabetic gastroparesis. Use reglan with every meal (5) CKD (chronic kidney disease) stage 3, GFR 30-59 ml/min Status: Acute Comment: Monitor Hospital Course - Lab Results Lab Results: Most Recent Lab Values WBC 6.4 K/uL (4.8-10.8) 03/28/17 07:57 RBC 3.36 Mil/uL (3.80-5.20) L 03/28/17 07:57 Hgb 9.6 g/dL (11.0-16.0) L 03/28/17 07:57 Hct 28.8 % (34.0-47.0) L 03/28/17 07:57 MCV 85.6 fL (81.0-99.0) 03/28/17 07:57 MCH 28.7 pg (27.0-31.0) 03/28/17 07:57 MCHC 33.5 g/dL (33.0-37.0) 03/28/17 07:57 RDW 13.9 % (11.5-14.5) 03/28/17 07:57 Plt Count 290 K/uL (130-400) 03/28/17 07:57 MPV 9.7 fL (7.2-11.7) 03/28/17 07:57 Neut % (Auto) 64.8 % (50.0-75.0) 03/28/17 07:57 Lymph % (Auto) 25.7 % (20.0-40.0) 03/28/17 07:57 [place] % (Auto) 5.9 % (0.0-10.0) 03/28/17 07:57 Eos % (Auto) 2.2 % (0.0-4.0) 03/28/17 07:57 Baso % (Auto) 1.4 % (0.0-2.0) 03/28/17 07:57 Neut # 4.2 K/uL (1.8-7.0) 03/28/17 07:57 Lymph # 1.7 K/uL (1.0-4.3) 03/28/17 07:57 [place] # 0.4 K/uL (0.0-0.8) 03/28/17 07:57 Eos # 0.1 K/uL (0.0-0.7) 03/28/17 07:57 Baso # 0.1 K/uL (0.0-0.2) 03/28/17 07:57 Neutrophils % (Manual) 88 % (50-75) H 03/25/17 16:58 Band Neutrophils % 2 % (0-2) 03/25/17 16:58 Lymphocytes % (Manual) 8 % (20-40) L 03/25/17 16:58 Monocytes % (Manual) 2 % (0-10) 03/25/17 16:58 Hypersegmented Polys Present 03/25/17 16:58 Platelet Estimate Normal (NORMAL) 03/25/17 16:58 Large Platelets Present 03/25/17 16:58 Hypochromasia (manual) Slight 03/25/17 16:58 Microcytosis (manual) Slight 03/25/17 16:58 Rouleaux Slight 03/25/17 16:58 Sodium 126 mmol/L (132-148) L 03/28/17 07:57 Potassium 4.2 mmol/L (3.6-5.2) 03/28/17 07:57 Chloride 94 mmol/L (98-107) L 03/28/17 07:57 Carbon Dioxide 23 mmol/L (22-30) 03/28/17 07:57 Anion Gap 13 (10-20) 03/28/17 07:57 BUN 17 mg/dL (7-17) 03/28/17 07:57 Creatinine 1.9 mg/dL (0.7-1.2) H 03/28/17 07:57 Est GFR ( Amer) 38 03/28/17 07:57 Est GFR (Non-Af Amer) 32 03/28/17 07:57 POC Glucose (mg/dL) 106 mg/dL (65-110) 03/28/17 11:40 Random Glucose 530 mg/dL (65-105) H* 03/28/17 07:57 Calcium 7.7 mg/dl (8.6-10.4) L 03/28/17 07:57 Phosphorus 2.9 mg/dL (2.5-4.5) 03/28/17 07:57 Magnesium 1.7 mg/dL (1.6-2.3) 03/28/17 07:57 Total Bilirubin 0.3 mg/dL (0.2-1.3) 03/28/17 07:57 AST 19 U/L (14-36) 03/28/17 07:57 ALT 22 U/L (9-52) 03/28/17 07:57 Alkaline Phosphatase 100 U/L (38-126) 03/28/17 07:57 Total Protein 4.6 g/dL (6.3-8.3) L 03/28/17 07:57 Albumin 2.4 g/dL (3.5-5.0) L 03/28/17 07:57 Globulin 2.1 gm/dL (2.2-3.9) L 03/28/17 07:57 Albumin/Globulin Ratio 1.1 (1.0-2.1) 03/28/17 07:57 Procalcitonin 0.09 NG/ML (0.19-0.49) L 03/28/17 12:24 Urine Color Straw (YELLOW) 03/25/17 17:22 Urine Clarity Clear (Clear) 03/25/17 17:22 Urine pH 6.0 (5.0-8.0) 03/25/17 17:22 Ur Specific [place] 1.011 (1.003-1.030) 03/25/17 17:22 Urine Protein 3+ mg/dL (NEGATIVE) H 03/25/17 17:22 Urine Glucose (UA) 3+ mg/dL (Normal) H 03/25/17 17:22 Urine Ketones Negative mg/dL (NEGATIVE) 03/25/17 17:22 Urine Blood Negative (NEGATIVE) 03/25/17 17:22 Urine Nitrate Negative (NEGATIVE) 03/25/17 17:22 Urine Bilirubin Negative (NEGATIVE) 03/25/17 17:22 Urine Urobilinogen Normal mg/dL (0.2-1.0) 03/25/17 17:22 Ur Leukocyte Esterase Neg Kathy/uL (Negative) 03/25/17 17:22 Urine WBC (Auto) 4 /hpf (0-5) 03/25/17 17:22 Urine RBC (Auto) 4 /hpf (0-3) H 03/25/17 17:22 Ur Squamous Epith Cells 3 /hpf (0-5) 03/25/17 17:22 Urine Bacteria Occ (<OCC) H 03/25/17 17:22 Hyaline Casts 3-5 /lpf (0-2) H 03/25/17 17:22 Urine HCG, Qual Negative (NEGATIVE) 03/25/17 17:22 Urine Opiates Screen Negative (NEGATIVE) 03/25/17 17:22 Urine Methadone Screen Negative (NEGATIVE) 03/25/17 17:22 Ur Barbiturates Screen Positive (NEGATIVE) H 03/25/17 17:22 Phenytoin < 3.0 ug/mL (10-20) L 03/25/17 16:58 Ur Phencyclidine Scrn Negative (NEGATIVE) 03/25/17 17:22 Ur Amphetamines Screen Negative (NEGATIVE) 03/25/17 17:22 U Benzodiazepines Scrn Negative (NEGATIVE) 03/25/17 17:22 U Oth Cocaine Metabols Negative (NEGATIVE) 03/25/17 17:22 U Cannabinoids Screen Negative (NEGATIVE) 03/25/17 17:22 - Hospital Course Hospital Course: On admission: CC: nausea and vomiting HPI: 26F with PMH of DM, 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 Patient stated that she has been feeling sick for the last 2 weeks but it worsened on Thursday. She says her vomit appeared watery until today when she arrived to the ED it appeared brown. Patient denies any hypoglycemic episodes since her last visit a couples weeks ago and says her glucose has been running in the 300s. Patient denies fever, chills, headache, sore throat, dizziness, chest pain, SOB , palpitations, cough, diarrhea, constipation, blood in stool or urine, dysuria , leg pain, leg swelling, sick contacts, and recent weight change. Patient says her last menstrual period was in March last year which she thinks is due to stress. PMD: Dr. 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, HTN, anxiety, depression, and gastroparesis; [as per EMR: acute renal failure, CKD stage 3, anemia, cholelithiasis, gastritis, upper GI bleed, benzodiazepine withdrawal] SurgHx: denies FamHx: denies Allergies: NKDA Home Meds: Levetiracetam 250mg BID, Metoclopramide 5mg BID, Nifedipine ER 30mg daily, Reglan 15 mg QID, Lantus 15U HS, Insulin lispro 10 U TID, gabapentin, labetalol, feosol, B12, zofran prn SocialHx: lives with mother; denies tobacco/alcohol/illicit drug use; unemployed Hospital course: Patient was treated for vomiting with [place], zofran and liquid diet which was advanced to soft diet. Patient now tolerating diet. Patient had multiple pseudoseziures throughout her stay. Patient had Head CT which was normal. Patient complained of cough. Patient had CXR which shows some haziness in left lower lobe. Patient to follow up official report with Dr. King on Thursday. Patient's blood sugars are uncontrolled in the hospital. Dr. King instructed patient to use a sliding scale at home while she waits for the insulin pump. Patient discharged home on home meds. Discharge Exam - Head Exam Head Exam: NORMAL INSPECTION - Eye Exam Eye Exam: EOMI - ENT Exam ENT Exam: Mucous Membranes Moist - Respiratory Exam Respiratory Exam: Rhonchi (LLL), NORMAL BREATHING PATTERN - Cardiovascular Exam Cardiovascular Exam: REGULAR RHYTHM, +S1, +S2. absent: Gallop, Rubs, Systolic Murmur - GI/Abdominal Exam GI & Abdominal Exam: Normal Bowel Sounds, Soft. absent: Distended, Firm, Tenderness - Extremities Exam Extremities exam: normal capillary refill - Neurological Exam Neurological exam: Alert, Oriented x3 - Psychiatric Exam Psychiatric exam: Normal Affect, Normal Mood - Skin Skin Exam: Normal Color, Warm Discharge Plan - Follow Up Plan Condition: FAIR Disposition: HOME/ ROUTINE Additional Instructions: Patient to be discharged home per Dr. King. Patient should resume all home medications. Patient should eat small meals 5-6 times per day. Patient should take 1/2 pill of Reglan with her meals. Patient should use insulin on a sliding scale which is provided to patient. Patient should follow up with Dr. King on Thursday. Dr. King went over these instructions with patient who understood and agreed. Patient has insulin and Reglan at home. Patient should return to ED immediately if symptoms return or worsen. Referrals: Reza King Jr., MD [Medical Doctor] -
[2017-03-28 14:46] LABS: TROPONIN I 0.031 ng/mL (0.00-0.120)
[2017-03-28 18:54] VITALS: BP 132/82; PULSE 103
[2017-03-28 19:43] LABS: CREATININE, RANDOM URINE 52.9 mg/dL
--- NOTE | 2017-03-30 02:57 | CARD ---
APPROVED REPORT EKG Measurement Heart [id number] <Conclusion> Sinus tachycardia Prolonged QT Abnormal ECG
== END 2017-03-28 19:00 | disposition home or self-care (01) | DRG 295 ==
LOC: C.ER 16:07 → C.9E 19:09 → C.5S 22:39
PROVIDERS: ADMIT Internal Medicine; ATTEND Internal Medicine
DX: E10.65 Type 1 diabetes mellitus with hyperglycemia (principal); E10.22 Type 1 diabetes mellitus with diabetic chronic kidney disease; N18.3 Chronic kidney disease, stage 3 (moderate); G40.901 Epilepsy, unspecified, not intractable, with status epilepticus; I12.9 Hypertensive chronic kidney disease with stage 1 through stage 4 chronic kidney disease, or unspecified chronic kidney disease; Z79.4 Long term (current) use of insulin; Z87.891 Personal history of nicotine dependence

== ENCOUNTER 2017-03-30 04:01 | Emergency (ER) | payer MEDICAID ==
[2017-03-30 04:01] VITALS: BMI 26.4
--- NOTE | 2017-03-30 04:21 | C.PDOC ---
History Of Present Illness Patient presents to the ER with a complaint of abdominal pain, nausea, vomiting , and pseudoseizures. Patient has been seen and evaluated multiple times in the past for similar complaints and was recently discharged 5 days. Patient had a pseudoseizure on arrival, when asked what she would like for pain she answered immediately without post-ictal state. Denies fever or chills. Time Seen by Provider: 03/30/17 04:21 Chief Complaint (Nursing): Abdominal Pain History Per: Patient History/Exam Limitations: no limitations Onset/Duration Of Symptoms: Days Current Symptoms Are (Timing): Still Present Severity: Mild Pain Scale Rating Of: 4 Location Of Pain/Discomfort: Diffuse Radiation Of Pain To:: None Quality Of Discomfort: Unable To Describe Associated Symptoms: Nausea, Vomiting, Other (Pseudoseizures). denies: Fever, Chills Exacerbating Factors: None Alleviating Factors: None Recent travel outside of the [place]: No Abnormal Vaginal Bleeding: No Past Medical History Reviewed: Historical Data, Nursing Documentation, Vital Signs Vital Signs: Last Vital Signs Temp 97.9 F 03/30/17 04:12 Pulse 104 H 03/30/17 04:12 Resp 16 03/30/17 04:12 BP 184/106 H 03/30/17 04:12 Pulse Ox 98 03/30/17 04:49 - Medical History PMH: Anemia, Anxiety, Depression, Diabetes, HTN, Seizures Surgical History: No Surg Hx - [facility] Procedures EXCISION OF STOMACH, ENDO, DIAGN (11/02/16) EXCISION OF STOMACH, PYLORUS, ENDO, DIAGN (03/10/17) INSERTION OF INFUSION DEV INTO L SUBCLAV VEIN, PERC APPROACH (10/28/16) INSERTION OF INFUSION DEV INTO SUP VENA CAVA, PERC APPROACH (11/02/16) INTRODUCTION OF NUTRITIONAL INTO PERIPH VEIN, PERC APPROACH (10/16/16) ULTRASONOGRAPHY OF SUPERIOR VENA CAVA, GUIDANCE (10/16/16) Family History: States: No Known Family Hx - Social History Hx Alcohol Use: No Hx Substance Use: Yes (marijuana) - Immunization History Hx Tetanus Toxoid Vaccination: No Hx Influenza Vaccination: Yes Hx Pneumococcal Vaccination: Yes Review Of Systems Constitutional: Negative for: Fever, Chills Gastrointestinal: Positive for: Nausea, Vomiting, Abdominal Pain Neurological: Positive for: Seizures (Pseudo) Physical Exam - Physical Exam Appears: Non-toxic Skin: Warm, Dry Head: Normacephalic Oral Mucosa: Moist Chest: Symmetrical, No Tenderness Cardiovascular: Rhythm Regular Respiratory: No Rales, No Rhonchi, No Wheezing Gastrointestinal/Abdominal: Soft, Tenderness (Mildly diffuse), No Guarding, No Rebound Neurological/Psych: Oriented x3 ED Course And Treatment - Laboratory Results Result Diagrams: 03/30/17 04:35 03/30/17 04:35 O2 Sat by Pulse Oximetry: 98 (Room air) Pulse Ox Interpretation: Normal Progress Note: Blood work and urinalysis ordered. Reglan and IV fluids administered. Disposition Counseled Patient/Family Regarding: Studies Performed, Diagnosis, Need For Followup, Rx Given - Disposition Referrals: Reza King Jr., MD [Medical Doctor] - Disposition: HOME/ ROUTINE Disposition Time: 04:21 Condition: FAIR Prescriptions: Metoclopramide [Reglan] 1 tab PO TID PRN #25 tab PRN Reason: Nausea/Vomiting Instructions: Abdominal Pain (ED), Acute Nausea and Vomiting (ED) Forms: [employer] [employer] [facility] (Danish) - Clinical Impression Clinical Impression: Abdominal pain, Nausea, Vomiting, Diabetes mellitus - Scribe Statement The provider has reviewed the documentation as recorded by the Scribe Yao Varela All medical record entries made by the Scribe were at my direction and personally dictated by me. I have reviewed the chart and agree that the record accurately reflects my personal performance of the history, physical exam, medical decision making, and the department course for this patient. I have also personally directed, reviewed, and agree with the discharge instructions and disposition.
[2017-03-30] MEDS ORDERED: Sodium Chloride 0.9% 1,000 ML IV ONE (04:26)
[2017-03-30 04:38] LABS: BASO # 0.1 K/uL (0.0-0.2); BASO % 1.3 % (0.0-2.0); EOS % 0.1 % (0.0-4.0); HEMATOCRIT 34.6 % (34.0-47.0); LYMPH # 1.3 K/uL (1.0-4.3); LYMPH % 12.8 % (20.0-40.0); MEAN CELL VOLUME 85.5 fL (81.0-99.0); MEAN CORPUSCULAR HEMOGLOBIN 28.3 pg (27.0-31.0); MEAN CORPUSCULAR HGB CONC 33.1 g/dL (33.0-37.0); MEAN PLATELET VOLUME 9.4 fL (7.2-11.7); MONO # 0.3 K/uL (0.0-0.8); MONO % 2.6 % (0.0-10.0); NRBC % 0.1 % (0.0-2.0); RED CELL DISTRIBUTION WIDTH 14.6 % (11.5-14.5); WHITE BLOOD COUNT 10.1 K/uL (4.8-10.8)
[2017-03-30] MEDS ORDERED: Sodium Chloride 0.9% 250 ML IV ONE (04:42)
[2017-03-30 04:51] LABS: ALB/GLOB RATIO 1.2 (1.0-2.1); ALKALINE PHOSPHATASE 109 U/L (38-126); ALT/SGPT 30 U/L (9-52); AST/SGOT 20 U/L (14-36); BILIRUBIN,TOTAL 0.4 mg/dL (0.2-1.3); BLOOD UREA NITROGEN 20 mg/dL (7-17); CALCIUM 8.5 mg/dl (8.6-10.4); CARBON DIOXIDE 23 mmol/L (22-30); CHLORIDE 104 mmol/L (98-107); GFR AFRICAN-AMERICAN 32; GLUCOSE,RANDOM 137 mg/dL (65-105); POTASSIUM 3.7 mmol/L (3.6-5.2); SODIUM 135 mmol/L (132-148)
[2017-03-30 04:59] LABS: DRAW SITE RB
[2017-03-30 06:33] VITALS: BP 141/89; PULSE 100; RESP 20; TEMP 98.9; O2SAT 99
== END 2017-03-30 07:15 | disposition home or self-care (01) ==
LOC: C.ER 04:01
DX: E11.9 Type 2 diabetes mellitus without complications (principal); R11.2 Nausea with vomiting, unspecified; R10.9 Unspecified abdominal pain; I10 Essential (primary) hypertension
CPT/HCPCS: 80053; 82009; 82803; 85025; 96361; 96374; 96375; 99284; J2405; J2765; J7040

== ENCOUNTER 2017-03-30 10:23 | Observation (INO) | payer MEDICAID ==
[2017-03-30 10:24] VITALS: BMI 26.4
--- NOTE | 2017-03-30 10:48 | C.PDOC ---
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 Patient was seen in ED earlier today for similar symptoms and discharged home. Patient is requesting Ativan, notes it helps with symptoms. Patient has presented to ED several times for similar complaints. Mother denies fever, diarrhea, or other complaints at this time PMD: Dr. Trinidad Time Seen by Provider: 03/30/17 10:30 Chief Complaint (Nursing): GI Problem History Per: Patient, Family History/Exam Limitations: no limitations Onset/Duration Of Symptoms: Hrs Current Symptoms Are (Timing): Still Present Reports Recently: Seen In ED (this morning ), Treated By A Physician Recent travel outside of the [place]: No Additional History Per: Prior Records Past Medical History Reviewed: Historical Data, Nursing Documentation, Vital Signs Vital Signs: Last Vital Signs Temp 98.2 F 03/30/17 12:11 Pulse 120 H 03/30/17 12:11 Resp 20 03/30/17 12:11 BP 138/62 03/30/17 12:11 Pulse Ox 100 03/30/17 12:11 - Medical History PMH: Anemia, Anxiety, Depression, Diabetes, HTN, Seizures Denies: Chronic Kidney Disease - [facility] Procedures EXCISION OF STOMACH, ENDO, DIAGN (11/02/16) EXCISION OF STOMACH, PYLORUS, ENDO, DIAGN (03/10/17) INSERTION OF INFUSION DEV INTO L SUBCLAV VEIN, PERC APPROACH (10/28/16) INSERTION OF INFUSION DEV INTO SUP VENA CAVA, PERC APPROACH (11/02/16) INTRODUCTION OF NUTRITIONAL INTO PERIPH VEIN, PERC APPROACH (10/16/16) ULTRASONOGRAPHY OF SUPERIOR VENA CAVA, GUIDANCE (10/16/16) Family History: States: Unknown Family Hx - Social History Hx Alcohol Use: No Hx Substance Use: Yes (marijuana) - Immunization History Hx Tetanus Toxoid Vaccination: No Hx Influenza Vaccination: Yes Hx Pneumococcal Vaccination: Yes Review Of Systems Constitutional: Negative for: Fever Respiratory: Positive for: Other (blood tinged sputum). Negative for: Cough, Shortness of Breath Gastrointestinal: Negative for: Nausea, Vomiting, Abdominal Pain Neurological: Positive for: Other (seizure like activity) Physical Exam - Physical Exam Appears: Non-toxic, No Acute Distress, Other (Actively vomiting in ED) Skin: Warm, Dry, No Rash Head: Atraumatic, Normacephalic, No Tenderness Eye(s): bilateral: Normal Inspection, PERRL, EOMI Oral Mucosa: Moist Neck: Supple Chest: Symmetrical, No Deformity Cardiovascular: Rhythm Regular, No Murmur Respiratory: No Rales, No Rhonchi, No Wheezing, Other (clear to auscultation bilaterally ) Gastrointestinal/Abdominal: Soft, No Tenderness, No Distention, No Guarding, No Rebound Extremity: Normal ROM, No Tenderness Neurological/Psych: Oriented x3 ED Course And Treatment O2 Sat by Pulse Oximetry: 99 (RA) Pulse Ox Interpretation: Normal Progress Note: Patient was given Ativan, Apresoline, and Phenergan IM. Progress - Re-Evaluation Re-evaluation Note: 03/30/17 11:13 D/W DR TRINIDAD AWARE OF ER FINDINGS WILL ADMIT. 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 I have reviewed the chart and agree that the record accurately reflects my personal performance of the history, physical exam, medical decision making, and the department course for this patient. I have also personally directed, reviewed, and agree with the discharge instructions and disposition. Decision To Admit - Pt Status Changed To: Hospital Disposition Of: Observation - . Bed Request Type: Regular Admitting Physician: Reza Trinidad Jr. Patient Diagnosis: Intractable vomiting, Psychiatric pseudoseizure
[2017-03-30] MEDS: NIFEdipine 60 mg ER Tab PO SCH (13:21)
[2017-03-30] MEDS ORDERED: Dextrose 50% SYRINGE Inj (50 ml) IVP PRN (15:50)
[2017-03-30] MEDS ORDERED: Glucagon Recombinant 1 mg Inj IM PRN (15:50)
--- NOTE | 2017-03-30 16:02 | CP.PCM.HP ---
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 Patient also noted that last night, her blood glucose was in the 20s after administering her insulin. Patient was recently discharged from [facility] on 03/28[facility]17 after being admitted for intractable vomiting and hypoglycemic episode. During the encounter, patient states that her symptoms are improving, she denies fever, chills, chest pain but still admits to diffuse abdominal pain, nausea, vomiting and weakness. PMD: Dr. 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, HTN, anxiety, depression, and gastroparesis; [as per EMR: acute renal failure, CKD stage 3, anemia, cholelithiasis, gastritis, upper GI bleed, benzodiazepine withdrawal] SurgHx: denies FamHx: denies Allergies: NKDA Home Meds: Levetiracetam 250mg BID, Metoclopramide 5mg BID, Nifedipine ER 30mg daily, Reglan 15 mg QID, Lantus 15U HS, Insulin lispro 10 U TID, gabapentin, labetalol, feosol, B12, zofran prn SocialHx: lives with mother; denies tobacco/alcohol/illicit drug use; unemployed Present on Admission - Present on Admission Any Indicators Present on Admission: No Review of Systems - Constitutional Constitutional: Fatigue, Weakness. absent: Chills, Fever, Headache - EENT Eyes: absent: Blurred Vision, Change in Vision Ears: absent: Dizziness - Cardiovascular Cardiovascular: Chest Pain. absent: Chest Pain at Rest, Diaphoresis, Dyspnea, Dyspnea on Exertion, Leg Edema, Lightheadedness, Palpitations - Respiratory Respiratory: absent: Cough, Dyspnea - Gastrointestinal Gastrointestinal: Abdominal Pain, Nausea, Vomiting. absent: Constipation, Cramping, Diarrhea - Neurological Neurological: Weakness. absent: Dizziness, Headaches - Psychiatric Psychiatric: Anxiety, Depression. absent: Change in Appetite - Endocrine Endocrine: Fatigue, Palpitations Past Patient History - Infectious Disease Hx of Infectious Diseases: None - Past Medical History & Family History Past Medical History?: Yes - Past Social History Smoking Status: Never Smoked - CARDIAC Hx Hypertension: Yes - PULMONARY Hx Respiratory Disorders: No - NEUROLOGICAL Hx Seizures: Yes - HEENT Hx HEENT Problems: Yes Other/Comment: blurred vision both eyes uses eyeglasses - RENAL Hx Chronic Kidney Disease: No - ENDOCRINE/METABOLIC Hx Diabetes Mellitus Type 2: Yes - HEMATOLOGICAL/ONCOLOGICAL Hx Anemia: Yes - INTEGUMENTARY Hx Dermatological Problems: No - MUSCULOSKELETAL/RHEUMATOLOGICAL Hx Falls: No - GASTROINTESTINAL Hx Gastrointestinal Disorders: Yes (SEE COMMENT) Other/Comment: gastroparesis - GENITOURINARY/GYNECOLOGICAL Hx Genitourinary Disorders: No - PSYCHIATRIC Hx Anxiety: Yes Hx Depression: Yes Hx Substance Use: Yes (marijuana) - SURGICAL HISTORY Hx Surgeries: No - ANESTHESIA Hx Anesthesia: Yes Hx Anesthesia Reactions: No Meds Allergies/Adverse Reactions: Allergies Allergy/AdvReac Type Severity Reaction Status Date / Time No Known Allergies Allergy Verified 03/30/17 04:17 Physical Exam - Constitutional Appears: Well - Head Exam Head Exam: ATRAUMATIC, NORMAL INSPECTION - Eye Exam Eye Exam: EOMI, Normal appearance - ENT Exam ENT Exam: Mucous Membranes Moist - Respiratory Exam Respiratory Exam: Clear to Auscultation Bilateral, NORMAL BREATHING PATTERN - Cardiovascular Exam Cardiovascular Exam: Tachycardia, REGULAR RHYTHM, +S1, +S2 - GI/Abdominal Exam GI & Abdominal Exam: Normal Bowel Sounds, Soft. absent: Hyperactive Bowel Sounds - Extremities Exam Extremities exam: Positive for: normal inspection. Negative for: calf tenderness, pedal edema - Neurological Exam Neurological exam: Alert, Oriented x3 - Psychiatric Exam Psychiatric exam: Normal Affect, Normal Mood - Skin Skin Exam: Normal Color Results - Vital Signs Recent Vital Signs: Last Vital Signs Temp 98.2 F 03/30/17 12:11 Pulse 117 H 03/30/17 13:50 Resp 20 03/30/17 13:50 BP 129/81 03/30/17 13:50 Pulse Ox 98 03/30/17 13:50 - Labs Labs: Laboratory Results - last 24 hr 03/30/17 11:02 POC Glucose (mg/dL) 247 H Assessment & Plan (1) Intractable vomiting Assessment and Plan: Secondary to diabetic gastroparesis Reglan 15mg IV QID Hydroxyzine 25mg PO Q6 prn Status: Chronic (2) Acute kidney injury Assessment and Plan: Elevated BUN/CR NS @ 50mls/hr Continue to monitor Status: Acute (3) History of hypertension Assessment and Plan: Procardia Xl 60mg PO daily Trandate 200mg PO BID Hydralazine 10mg IV Q6 PRN (SBP>160mmhg) Continue to monitor with vital signs Status: Acute (4) History of diabetes mellitus Assessment and Plan: Accuchecks ISS- high dose Hypoglycemia protocol Status: Acute (5) History of anemia Assessment and Plan: Monitor H/H Continue home medication: * Feosol 325mg PO BID * Vitamin B12 1,000mcg PO daily Status: Acute (6) History of pseudoseizure Assessment and Plan: Keppra 250mg PO BID Status: Acute (7) Prophylactic measure Assessment and Plan: GI: Protonix 20mg PO daily DVT: SCDs, ambulates Status: Acute
[2017-03-30] MEDS ORDERED: (Novolog) Insulin Aspart, Recombinant 100 u/ml 10 ml vial ONE (17:51)
[2017-03-30] MEDS: (Novolog) Insulin Aspart, Recombinant 100 u/ml 10 ml vial SC SCH ×2 (17:52→22:11)
[2017-03-30 19:08] VITALS: RESP 20
[2017-03-30] MEDS: Sodium Chloride 0.9% 1,000 ML IV SCH (19:33)
[2017-03-31] MEDS: (Novolog) Insulin Aspart, Recombinant 100 u/ml 10 ml vial SC SCH ×3 (08:49→17:26)
[2017-03-31] MEDS: NIFEdipine 60 mg ER Tab PO SCH (09:19)
[2017-03-31] MEDS ORDERED: Pantoprazole 20 mg EC Tab PO SCH (10:00)
[2017-03-31 11:54] LABS: BASO # 0.1 K/uL (0.0-0.2); BASO % 0.6 % (0.0-2.0); EOS % 0.2 % (0.0-4.0); HEMATOCRIT 27.5 % (34.0-47.0); LYMPH # 1.9 K/uL (1.0-4.3); LYMPH % 19.3 % (20.0-40.0); MEAN CELL VOLUME 86.3 fL (81.0-99.0); MEAN CORPUSCULAR HEMOGLOBIN 28.9 pg (27.0-31.0); MEAN CORPUSCULAR HGB CONC 33.5 g/dL (33.0-37.0); MEAN PLATELET VOLUME 9.5 fL (7.2-11.7); MONO # 0.7 K/uL (0.0-0.8); NRBC % 0.1 % (0.0-2.0); RED CELL DISTRIBUTION WIDTH 14.6 % (11.5-14.5); WHITE BLOOD COUNT 9.6 K/uL (4.8-10.8)
--- NOTE | 2017-03-31 13:09 | PCM.PSYCH ---
Initial Psychiatric Evaluation - Initial Psychiatric Evaluation Type of Admission: Voluntary Legal Status: Capacity Chief Complaint (in patient's own words): "Anxious" History of Present Illness and Precipitating Events: The pt is seen, chart reviewed, case discussed Consult was requested for her psych hx She is very well-known by the senior grant writer She has conversion d/o (frequent pseudo-seizures), personality d/o (mood swings , relational problems...) and depression. She claims she had a hypoglycemic attack and came here. She also claims her pseudoseizures are related to hypoglycemia, but senior grant writer disputes that as senior grant writer observed one in another past consult where she had one attack and was not hypoglycemic. She reports depressive sxs but denies SI, SP Not manic, psychotic Past psych hx: As above, no admissions. Most problems started after a traumatic break-up and loss of job Medical: DM and gastric paresis Family psych hx: none Current Medications: Active Medications Generic Name Dose Route Start Last Admin Trade Name Freq PRN Reason Stop Dose Admin Cyanocobalamin 1,000 mcg 03/30/17 12:15 03/31/17 09:20 Vitamin B12 1000 Mcg Tab PO 1,000 mcg DAILY KELVIN Administration Dextrose 0 ml 03/30/17 15:50 Dextrose 50% Inj IVP .STAT PRN Hypoglycemia Protocol Protocol Dextrose 0 gm 03/30/17 15:50 Glutose 15 PO .ONCE PRN Hypoglycemia Protocol Protocol Ergocalciferol 1 cap 04/06/17 10:00 Drisdol 50,000 Intl Units Cap PO QWK KELVIN Ferrous Sulfate 325 mg 03/30/17 18:00 03/31/17 09:18 Feosol PO 325 mg BID KELVIN Administration Folic Acid 1 mg 03/30/17 12:15 03/31/17 09:19 Folic Acid PO 1 mg DAILY KELVIN Administration Glucagon 0 mg 03/30/17 15:50 Glucagen Diagnostic Kit IM .STAT PRN Hypoglycemia Protocol Protocol Hydralazine HCl 10 mg 03/30/17 15:56 Apresoline IVP Q6H PRN Other Hydroxyzine HCl 25 mg 03/30/17 18:00 Atarax PO Q6 PRN Nausea/Vomiting Dextrose 1,000 mls @ 0 mls/hr 03/30/17 15:50 Dextrose 5% In Water 1000 Ml IV .Q0M PRN Hypoglycemia Protocol Protocol Per Protocol Sodium Chloride 1,000 mls @ 50 mls/hr 03/30/17 18:00 03/30/17 19:33 Sodium Chloride 0.9% IV 50 mls/hr .Q20H KELVIN Administration Insulin Aspart 0 unit 03/30/17 16:30 03/31/17 11:59 Novolog SC Not Given ACHS KELVIN Protocol Labetalol HCl 200 mg 03/30/17 18:00 03/31/17 09:19 Trandate PO 200 mg BID KELVIN Administration Levetiracetam 250 mg 03/30/17 18:00 03/31/17 09:19 Keppra PO 250 mg BID KELVIN Administration Metoclopramide HCl 15 mg 03/30/17 14:00 03/31/17 09:19 Reglan IVP 15 mg QID KELVIN Administration Nifedipine 60 mg 03/30/17 12:15 03/31/17 09:19 Procardia Xl PO 60 mg DAILY KELVIN Administration Pantoprazole Sodium 20 mg 03/31/17 10:00 03/31/17 09:19 Protonix Ec Tab PO 20 mg DAILY KELVIN Administration Past Psychiatric History - Past Psychiatric History Previous Treatment History: None Pertinent Medical Hx (Current Medical&Sleep Prob, Allergies): Allergies Allergy/AdvReac Type Severity Reaction Status Date / Time No Known Allergies Allergy Verified 03/30/17 04:17 Cyanocobalamin [Vitamin B12 1000 mcg Tab] 1,000 mcg PO DAILY 10/16/16 Ferrous Sulfate [Feosol] 325 mg PO BID 12/07/16 Insulin Glargine, Recombina [Lantus] 15 unit SC HS 03/09/17 Insulin Lispro [Humalog (Insulin Lispro)] 10 units SC TIDPC 03/09/17 Labetalol [Trandate] 200 mg PO BID 30 Days #60 tab 03/21/17 NIFEdipine ER [Procardia XL] 60 mg PO DAILY 30 Days #30 ter 03/21/17 Ergocalciferol (Vitamin D2) [Vitamin D2] 50,000 unit PO QWK 03/30/17 Folic Acid 1 mg PO DAILY 03/30/17 Levetiracetam [Keppra] 250 mg PO BID 03/30/17 Metoclopramide [Reglan] 15 mg PO QID 30 Days #120 tab 03/31/17 Review of Systems - Psychiatric Psychiatric: Abnormal Sleep Pattern, Anhedonia, Anxiety, Change in Appetite, Depression, Difficulty Concentrating, Irritability. absent: Hallucinations, Homicidal Ideation, Suicidal Ideation Mental Status Examination - Personal Presentation Personal Presentation: Looks older than stated age - Affect Affect: Constricted - Motor Activity Motor Activity: Calm - Reliability in Providing Information Reliability in Providing Information: Fair - Speech Speech: Organized - Mood Mood: Depressed, Anxious - Formal Thought Process Formal Thought Process: No Impairment - Cognitive Functions Orientation: Person, Place, Situation, Time Sensorium: Drowsy Attention/Concentration: Attentive Estimate of Intelligence: Average Judgement: Intact, as evidence by: Insight regarding need for hospitalization Memory: Recent intact, as evidence by: Ability to recall events of the day, Remote impaired as evidenced by: Inability to recall sig life events - Risk Risk: Diminished functioning - Strength & Assets Inventory Strength & Assets Inventory: Cooperative - Limitations Limitations: Other DSM 5 DX - DSM 5 DSM 5 Diagnosis: Major depression, recurrent, severe Conversion d/o Personality d/o - unspecified - Recommended/Plan of Treatment Treatment Recommendations and Plan of Treatment: Zoloft for depression/anxiety Suport and psychoed She must start outpatient psychotherapy JACE - she agrees but says she has been in and out of hospitals so much that she couldn't 31 min
[2017-03-31 16:26] VITALS: BP 130/78; PULSE 86; TEMP 98; O2SAT 94
[2017-03-31] MEDS: Sodium Chloride 0.9% 1,000 ML IV SCH (17:30)
--- NOTE | 2017-03-31 19:16 | CP.PCM.DIS ---
Provider - Provider Date of Admission: 03/30/17 11:21 Attending physician: Reza King Jr, MD Time Spent in preparation of Discharge (in minutes): 35 Diagnosis - Discharge Diagnosis (1) Intractable vomiting Status: Chronic (2) Acute kidney injury Status: Acute (3) History of hypertension Status: Acute (4) History of diabetes mellitus Status: Acute (5) History of anemia Status: Acute (6) History of pseudoseizure Status: Acute (7) Prophylactic measure Status: Acute Hospital Course - Lab Results Lab Results: Most Recent Lab Values WBC 9.6 K/uL (4.8-10.8) 03/31/17 11:32 RBC 3.19 Mil/uL (3.80-5.20) L 03/31/17 11:32 Hgb 9.2 g/dL (11.0-16.0) L D 03/31/17 11:32 Hct 27.5 % (34.0-47.0) L 03/31/17 11:32 MCV 86.3 fL (81.0-99.0) 03/31/17 11:32 MCH 28.9 pg (27.0-31.0) 03/31/17 11:32 MCHC 33.5 g/dL (33.0-37.0) 03/31/17 11:32 RDW 14.6 % (11.5-14.5) H 03/31/17 11:32 Plt Count 287 K/uL (130-400) 03/31/17 11:32 MPV 9.5 fL (7.2-11.7) 03/31/17 11:32 Neut % (Auto) 72.9 % (50.0-75.0) 03/31/17 11:32 Lymph % (Auto) 19.3 % (20.0-40.0) L 03/31/17 11:32 [place] % (Auto) 7.0 % (0.0-10.0) 03/31/17 11:32 Eos % (Auto) 0.2 % (0.0-4.0) 03/31/17 11:32 Baso % (Auto) 0.6 % (0.0-2.0) 03/31/17 11:32 Neut # 7.0 K/uL (1.8-7.0) 03/31/17 11:32 Lymph # 1.9 K/uL (1.0-4.3) 03/31/17 11:32 [place] # 0.7 K/uL (0.0-0.8) 03/31/17 11:32 Eos # 0.0 K/uL (0.0-0.7) 03/31/17 11:32 Baso # 0.1 K/uL (0.0-0.2) 03/31/17 11:32 POC Glucose (mg/dL) 320 mg/dL (65-110) H 03/31/17 17:00 - Hospital Course Hospital Course: HPI ( As per admission): Patient is a 26 year old with past medical history of DM, 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 Patient also noted that last night, her blood glucose was in the 20s after administering her insulin. Patient was recently discharged from [facility] (formerly [facility]) on 03/28/17 after being admitted for intractable vomiting and hypoglycemic episode. During the encounter, patient states that her symptoms are improving, she denies fever, chills, chest pain but still admits to diffuse abdominal pain, nausea, vomiting and weakness. Hospital course: Patient was admitted with the diagnosis of intractable vomiting, hyperglycemia. Patient was managed with appropriate chemical agents: Zofran, reglan and was advanced to liquid diet, which patient tolerated well. During the course of admission, patient had two episodes of pseudoseizures with no acute issues. Patient improved significantly. Over the course of admission, patient remained clinically stable with no acute issues. . Patient was discharge upon clearance by medical team with appropriate discharge instructions and medications. Discharge Exam - Head Exam Head Exam: ATRAUMATIC, NORMAL INSPECTION - Eye Exam Eye Exam: EOMI - ENT Exam ENT Exam: Mucous Membranes Moist - Respiratory Exam Respiratory Exam: Clear to PA & Lateral, NORMAL BREATHING PATTERN - Cardiovascular Exam Cardiovascular Exam: REGULAR RHYTHM, +S1, +S2 - GI/Abdominal Exam GI & Abdominal Exam: Normal Bowel Sounds, Soft, Tenderness - Extremities Exam Extremities exam: normal inspection - Neurological Exam Neurological exam: Alert, Oriented x3 - Psychiatric Exam Psychiatric exam: Anxious, Normal Affect - Skin Skin Exam: Normal Color Discharge Plan - Discharge Medications Prescriptions: Metoclopramide [Reglan] 15 mg PO QID 30 Days #120 tab - Follow Up Plan Condition: STABLE Disposition: HOME/ ROUTINE Instructions: Metoclopramide (By mouth), Acute Nausea and Vomiting (DC) Additional Instructions: Please discharge patient as per Dr. King Please resume all your home medications as prescribed by Dr. King Please follow up with Christine Florence in the office on , 04/02/17 Please continue to follow up with all your medical specialists as scheduled Please watch your blood glucose closely at home and always check your blood glucose before administering insulin Please return to the hospital/ed if symptoms worsen or resume Referrals: Reza King Jr., MD [Medical Doctor] -
[2017-04-06] MEDS ORDERED: Ergocalciferol 50,000 Intl Units Cap PO SCH (10:00)
== END 2017-03-31 18:22 | disposition home or self-care (01) ==
LOC: C.ER 10:23 → C.9E 11:21 → C.3T 11:44 → C.9E 12:25 → C.6T 18:09
PROVIDERS: ADMIT Internal Medicine; ATTEND Internal Medicine
DX: E11.22 Type 2 diabetes mellitus with diabetic chronic kidney disease (principal); E11.43 Type 2 diabetes mellitus with diabetic autonomic (poly)neuropathy; E11.649 Type 2 diabetes mellitus with hypoglycemia without coma; E11.65 Type 2 diabetes mellitus with hyperglycemia; F33.2 Major depressive disorder, recurrent severe without psychotic features; I12.9 Hypertensive chronic kidney disease with stage 1 through stage 4 chronic kidney disease, or unspecified chronic kidney disease; K31.84 Gastroparesis; F44.5 Conversion disorder with seizures or convulsions; N17.9 Acute kidney failure, unspecified; N18.3 Chronic kidney disease, stage 3 (moderate)
CPT/HCPCS: 36415; 82948; 85025; 96372; 96374; 99285; G0378; J0360; J2060; J2550; J2765; J7040

== ENCOUNTER 2017-04-03 09:30 | Inpatient (IN) | payer MEDICAID ==
[2017-04-03 09:30] VITALS: BMI 26.4
[2017-04-03] MEDS ORDERED: Lactated Ringer's 1,000 ML IV STA (09:50)
[2017-04-03] MEDS ORDERED: Lactated Ringer's 1,000 ML ONE (09:56)
[2017-04-03 10:02] LABS: BASO # 0.1 K/uL (0.0-0.2); EOS % 0.1 % (0.0-4.0); HEMATOCRIT 37.4 % (34.0-47.0); LYMPH # 1.8 K/uL (1.0-4.3); LYMPH % 21.9 % (20.0-40.0); MEAN CELL VOLUME 85.9 fL (81.0-99.0); MEAN CORPUSCULAR HEMOGLOBIN 28.1 pg (27.0-31.0); MEAN CORPUSCULAR HGB CONC 32.7 g/dL (33.0-37.0); MEAN PLATELET VOLUME 9.1 fL (7.2-11.7); MONO # 0.5 K/uL (0.0-0.8); MONO % 5.5 % (0.0-10.0); NRBC % 0.1 % (0.0-2.0); RED CELL DISTRIBUTION WIDTH 14.3 % (11.5-14.5); WHITE BLOOD COUNT 8.4 K/uL (4.8-10.8)
[2017-04-03 10:19] LABS: ALB/GLOB RATIO 0.8 (1.0-2.1); ALKALINE PHOSPHATASE 92 U/L (38-126); ALT/SGPT 26 U/L (9-52); AMYLASE 66 U/L (30-110); AST/SGOT 35 U/L (14-36); BILIRUBIN,TOTAL 0.7 mg/dL (0.2-1.3); BLOOD UREA NITROGEN 23 mg/dL (7-17); CARBON DIOXIDE 31 mmol/L (22-30); CHLORIDE 97 mmol/L (98-107); GFR AFRICAN-AMERICAN 31; GLUCOSE,RANDOM 222 mg/dL (65-105); POTASSIUM 4.3 mmol/L (3.6-5.2); SODIUM 133 mmol/L (132-148); TOTAL PROTEIN 7.5 g/dL (6.3-8.3)
[2017-04-03 11:18] LABS: RBC URINE 4 /hpf (0-3); URINE BACTERIA RARE (<OCC); URINE BILIRUBIN NEGATIVE (NEGATIVE); URINE BLOOD NEGATIVE (NEGATIVE); URINE COLOR Yellow (YELLOW); URINE GLUCOSE (UA) 3+ mg/dL (Normal); URINE KETONE TRACE mg/dL (NEGATIVE); URINE LEUKOCYTE ESTERASE NEG Leu/uL (Negative); URINE PROTEIN 3+ mg/dL (NEGATIVE); URINE UROBILINOGEN NORMAL mg/dL (0.2-1.0); WBC URINE 6 /hpf (0-5)
--- NOTE | 2017-04-03 12:52 | CP.PCM.HP ---
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 Patient has had multiple admissions for same symptoms. Mother at bedside states patient was vomiting consistently for the past two days. Patient denies seeing blood in the vomit. Mother reports seeing Dr. King in the office yesterday, and he advised her to continue taking Reglan PO. Mother admits patient checks BG 4 times per day, and is "always > 200." Per mother, patient is following Dr. King instructions of Lantus 15 units at night, and 10 units of Humalog with meals. Mother reports pt has seizure-like activity, that is worsened by stress. Mother denies past losing bladder/bowel control, tongue biting, or confusion after episodes. PMD: Dr. 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, HTN, anxiety, depression, and gastroparesis; [as per EMR: acute renal failure, CKD stage 3, anemia, cholelithiasis, gastritis, upper GI bleed, benzodiazepine withdrawal] SurgHx: denies FamHx: denies Allergies: NKDA Home Meds: Levetiracetam 250mg BID, Metoclopramide 5mg BID, Nifedipine ER 30mg daily, Reglan 15 mg QID, Lantus 15U HS, Insulin lispro 10 U TID, gabapentin, labetalol 200mg PO BID, feosol, B12, SocialHx: lives with mother; denies tobacco/alcohol/illicit drug use; unemployed Present on Admission - Present on Admission Any Indicators Present on Admission: No Review of Systems - Constitutional Constitutional: absent: Anorexia, Fever, Weight Loss - EENT Eyes: absent: Change in Vision Nose/Mouth/Throat: absent: Epistaxis - Cardiovascular Cardiovascular: absent: Chest Pain, Dyspnea, Dyspnea on Exertion, Palpitations - Respiratory Respiratory: absent: Cough, Chest Congestion - Gastrointestinal Gastrointestinal: Abdominal Pain, Nausea, Vomiting - Musculoskeletal Musculoskeletal: absent: Back Pain, Numbness, Tingling - Integumentary Integumentary: absent: Rash - Neurological Neurological: Convulsions. absent: Abnormal Gait, Tingling, Weakness - Psychiatric Psychiatric: absent: Anxiety - Endocrine Endocrine: absent: Change in Libido, Fatigue - Hematologic/Lymphatic Hematologic: absent: Easy Bleeding Past Patient History - Infectious Disease Hx of Infectious Diseases: None - Past Medical History & Family History Past Medical History?: Yes - Past Social History Smoking Status: Never Smoked - CARDIAC Hx Hypertension: Yes - PULMONARY Hx Respiratory Disorders: No - NEUROLOGICAL Hx Seizures: Yes - HEENT Hx HEENT Problems: Yes Other/Comment: blurred vision both eyes uses eyeglasses - RENAL Hx Chronic Kidney Disease: No - ENDOCRINE/METABOLIC Hx Diabetes Mellitus Type 2: Yes - HEMATOLOGICAL/ONCOLOGICAL Hx Anemia: Yes - INTEGUMENTARY Hx Dermatological Problems: No - MUSCULOSKELETAL/RHEUMATOLOGICAL Hx Falls: No - GASTROINTESTINAL Hx Gastrointestinal Disorders: Yes (SEE COMMENT) Other/Comment: gastroparesis - GENITOURINARY/GYNECOLOGICAL Hx Genitourinary Disorders: No - PSYCHIATRIC Hx Anxiety: Yes Hx Depression: Yes Hx Substance Use: Yes (marijuana) - SURGICAL HISTORY Hx Surgeries: No - ANESTHESIA Hx Anesthesia: No Meds Allergies/Adverse Reactions: Allergies Allergy/AdvReac Type Severity Reaction Status Date / Time No Known Allergies Allergy Verified 04/03/17 09:42 Physical Exam - Constitutional Appears: Non-toxic, No Acute Distress - Head Exam Head Exam: ATRAUMATIC, NORMOCEPHALIC - Eye Exam Eye Exam: EOMI. absent: Scleral icterus Pupil Exam: PERRL - ENT Exam ENT Exam: Mucous Membranes Moist - Respiratory Exam Respiratory Exam: Clear to Auscultation Bilateral, NORMAL BREATHING PATTERN. absent: Rales, Rhonchi, Wheezes - Cardiovascular Exam Cardiovascular Exam: Tachycardia, +S1, +S2 - GI/Abdominal Exam GI & Abdominal Exam: Normal Bowel Sounds, Soft. absent: Distended, Firm, Guarding, Tenderness - Extremities Exam Extremities exam: Positive for: normal inspection - Back Exam Back exam: absent: CVA tenderness (L), CVA tenderness (R) - Neurological Exam Neurological exam: Alert, CN II-XII Intact, Oriented x3 - Psychiatric Exam Psychiatric exam: Normal Affect, Normal Mood Additional comments: Witnessed pseudoseizure: no loss of bladder/bowel control, no post-ictal state - rhythmic shaking of limbs noted - Skin Skin Exam: Normal Color, Warm Results - Vital Signs Recent Vital Signs: Last Vital Signs Temp 99.7 F H 04/03/17 12:41 Pulse 95 H 04/03/17 12:41 Resp 18 04/03/17 12:41 BP 137/92 H 04/03/17 12:41 Pulse Ox 100 04/03/17 12:41 - Labs Result Diagrams: 04/03/17 09:54 04/03/17 09:54 Labs: Laboratory Results - last 24 hr 04/03/17 04/03/17 04/03/17 09:54 09:54 10:54 WBC 8.4 RBC 4.35 Hgb 12.2 D Hct 37.4 MCV 85.9 MCH 28.1 MCHC 32.7 L RDW 14.3 Plt Count 380 MPV 9.1 Neut % (Auto) 71.5 Lymph % (Auto) 21.9 Cataño % (Auto) 5.5 Eos % (Auto) 0.1 Baso % (Auto) 1.0 Neut # 6.0 Lymph # 1.8 Cataño # 0.5 Eos # 0.0 Baso # 0.1 Sodium 133 Potassium 4.3 Chloride 97 L Carbon Dioxide 31 H Anion Gap 9 L BUN 23 H Creatinine 2.3 H Est GFR ( Amer) 31 Est GFR (Non-Af Amer) 25 Random Glucose 222 H Calcium 8.0 L Total Bilirubin 0.7 AST 35 ALT 26 Alkaline Phosphatase 92 Total Protein 7.5 Albumin 3.4 L Globulin 4.1 H Albumin/Globulin Ratio 0.8 L Amylase 66 Lipase < 10 L Urine Color Yellow Urine Clarity Clear Urine pH 6.0 Ur Specific [place] 1.025 Urine Protein 3+ H Urine Glucose (UA) 3+ H Urine Ketones Trace Urine Blood Negative Urine Nitrate Negative Urine Bilirubin Negative Urine Urobilinogen Normal Ur Leukocyte Esterase Neg Urine WBC (Auto) 6 H Urine RBC (Auto) 4 H Ur Squamous Epith Cells 7 H Urine Bacteria Rare Hyaline Casts 3-5 H Urine HCG, Qual Negative Assessment & Plan - Assessment and Plan (Free Text) Plan: HTN urgency Admit to med/surg; transferred to tele Admission BP 195/122 - GEOLOGICAL AIDE called (see note) Pt denied YOUNGER, vision changes, chest pain - Given Labetalol 20 IV, then Cardizem 15mg IV Intractable vomiting Per Dr. 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, after Labetalol IVPB, pt briefly aflutter (HR 95-110) Cardizem 15 mg IVPB once - pt will be monitored on tele Procardia XL 50mg PO Daily Prolonged QTc EKG on admission: NSR (HR 90 bpm) QTc 486 - HOLD all anti-emetics or other prolonging meds - repeat EKG in AM, if QTc remains elongated will consider cardio consult Acute on Chronic Kidney Disease (stage III) Elevated BUN/CR; GFR 25 Cr 2.3, approximate baseline 2.0 NS @ 100 mls/hr, will decrease as pt begins eating/drinking again Continue to monitor History of hypertension Poorly controlled Procardia Xl 60mg PO daily Trandate 200mg PO BID Hydralazine 10mg IV Q6 PRN (SBP>160mmhg) Continue to monitor with vital signs History of diabetes mellitus Latest A1C 6.9 (02/2017) Accuchecks ISS- medium dose will monitor Hypoglycemia protocol History of anemia Monitor H/H; Hgb WNL Continue home medications: - Feosol 325mg PO BID - Vitamin B12 1,000mcg PO daily History of pseudoseizure Per Dr. King, patient has had EEG on prior admission - no seizure activity induced; - no post-ictal state - No neuro intervention at this time Keppra 250mg PO BID Hx of marijauna use Patient denies cocaine use f/u UDS Prophylactic measure GI: Protonix 40mg IV daily DVT: SCDs, heparin 5000 u Q Daily 1:1 (or Avasys if available) Disposition: Admitted to med/surg; will transfer to Tele; pt with hypertensive urgency. Brief aflutter. Must be monitored on tele. Avasys/1:1 to monitor behavior in pt with induced vomiting/pseudoseizures. Merrill Ring PGY-2 Discussed with attending, Dr. King
[2017-04-03] MEDS ORDERED: Labetalol 25mg/5ml Syringe IVP STA (13:29)
[2017-04-03] MEDS ORDERED: Labetalol 25mg/5ml Syringe IVP ONE (13:45)
[2017-04-03] MEDS ORDERED: Labetalol 5 mg/ml Inj 20ML IVP ONE (14:15)
--- NOTE | 2017-04-03 14:39 | C.PDOC ---
History Of Present Illness 26 y/o female, with PMHx of pseudoseizures and gastroparesis, presents to ED c/ o abdominal pain, nausea, and multiple episodes of vomiting (clear fluid) since last night. Pt had a questionable seizure outside of the ER. Pt reports decreased PO intake. Denies fever, blood in stool or urine, or any other associated symptoms at this time. Chief Complaint (Nursing): Seizure History Per: Patient History/Exam Limitations: no limitations Past Medical History Reviewed: Historical Data, Nursing Documentation, Vital Signs Vital Signs: Last Vital Signs Temp 98.8 F 04/03/17 16:02 Pulse 92 H 04/03/17 16:02 Resp 20 04/03/17 16:02 BP 136/86 04/03/17 16:02 Pulse Ox 96 04/03/17 16:02 - Medical History PMH: Anemia, Anxiety, Depression, Diabetes, HTN, Seizures Denies: Chronic Kidney Disease - [facility] Procedures EXCISION OF STOMACH, ENDO, DIAGN (11/02/16) EXCISION OF STOMACH, PYLORUS, ENDO, DIAGN (03/10/17) INSERTION OF INFUSION DEV INTO L SUBCLAV VEIN, PERC APPROACH (10/28/16) INSERTION OF INFUSION DEV INTO SUP VENA CAVA, PERC APPROACH (11/02/16) INTRODUCTION OF NUTRITIONAL INTO PERIPH VEIN, PERC APPROACH (10/16/16) ULTRASONOGRAPHY OF SUPERIOR VENA CAVA, GUIDANCE (10/16/16) Family History: States: Unknown Family Hx - Social History Hx Alcohol Use: No Hx Substance Use: Yes (marijuana) - Immunization History Hx Tetanus Toxoid Vaccination: No Hx Influenza Vaccination: Yes Hx Pneumococcal Vaccination: Yes Review Of Systems Except As Marked, All Systems Reviewed And Found Negative. Constitutional: Negative for: Fever, Chills Gastrointestinal: Positive for: Nausea, Vomiting, Abdominal Pain. Negative for : Diarrhea, Constipation Neurological: Positive for: Seizures (?). Negative for: Headache, Dizziness Physical Exam - Physical Exam Appears: Non-toxic, No Acute Distress Skin: Normal Color, Warm, Dry Head: Atraumatic, Normacephalic Eye(s): bilateral: Normal Inspection Oral Mucosa: Moist Cardiovascular: Rhythm Regular, No Murmur Respiratory: Normal Breath Sounds, No Rales, No Rhonchi, No Wheezing Gastrointestinal/Abdominal: Soft, Tenderness (mild diffuse), No Guarding, No Rebound, Other (active vomiting) Back: No CVA Tenderness Extremity: Normal ROM Neurological/Psych: Oriented x3, Normal Speech ED Course And Treatment - Laboratory Results Result Diagrams: 04/03/17 09:54 04/03/17 09:54 O2 Sat by Pulse Oximetry: 100 Pulse Ox Interpretation: Normal Progress Note: Spoke to Dr. King who states pt is well known to him, and accepts patient under his service. Disposition - Disposition Disposition Time: 11:20 Condition: FAIR - Clinical Impression Clinical Impression: Gastroparesis - Scribe Statement The provider has reviewed the documentation as recorded by the Scribe Luis Manuel Coker All medical record entries made by the Monoibe were at my direction and personally dictated by me. I have reviewed the chart and agree that the record accurately reflects my personal performance of the history, physical exam, medical decision making, and the department course for this patient. I have also personally directed, reviewed, and agree with the discharge instructions and disposition.
[2017-04-03] MEDS ORDERED: Sodium Chloride 0.9% 1,000 ML IV SCH (14:45)
--- NOTE | 2017-04-03 15:23 | PCM.RRT ---
- Head Head Exam: ATRAUMATIC, NORMAL INSPECTION - Eyes Eye Exam: Normal appearance - Respiratory Exam Respiratory Exam: NORMAL BREATHING PATTERN. absent: Respiratory Distress - Cardiovascular Exam Cardiovascular Exam: Tachycardia, +S1, +S2 - GI/Abdominal Exam GI & Abdominal Exam: Soft, Normal Bowel Sounds. absent: Distended, Firm - Neurological Exam Neurological Exam: Alert, Awake, Oriented x3 - Extremities Exam Extremities Exam: Normal Inspection Plan - Assessment of Findings&Treatment Plan [employer] was called at 1:58pm for this patient for elevated blood pressure. Patients vitals were taken which showed BP 195/124, HR 100, O2sat 98%, RR20; Repeat BP was 196/110. Labetalol 20mg IV was given. Repeat BP was 167/113. Labetalol 40mg IV, UDS, and EKG were ordered. Just as the labetalol 40mg IV was starting, patient developed a few episodes of atrial flutter. Labetaolol 40mg IV was stopped and Cardizem was ordered. Patient was given Cardizem 15mg IV push over 2 minutes. Vitals were rechecked and showed BP 154/105, HR 90, sinus rhythm on EKG. Patient is being transferred to telemetry for continuous monitoring. Hydralzaine 10mg IV Q6prn for SBP >160 and vital check Q6h were ordered.
[2017-04-03] MEDS: (Novolin R) Insulin Human Regular 100 units/ml vial SC SCH ×2 (17:37→21:50)
[2017-04-03] MEDS ORDERED: Glucagon Recombinant 1 mg Inj IM PRN (17:41)
[2017-04-03] MEDS ORDERED: Dextrose 50% SYRINGE Inj (50 ml) IV PRN (17:41)
--- NOTE | 2017-04-04 01:25 | CP.PCM.PN ---
Subjective - Date & Time of Evaluation Date of Evaluation: 04/04/17 Time of Evaluation: 01:30 - Subjective Subjective: Medicine note for Dr. King' service Patient was seen and examined at bedside. Patient states that she is doing well but still admits to mild nausea and abdominal tenderness. Patient denies chest pain, SOB, palpitations, fever, chills, dizziness. Patient is tolerating liquid diet. Objective - Vital Signs/Intake and Output Vital Signs (last 24 hours): Temp Pulse Resp BP Pulse Ox 98.5 F 90 20 167/102 H 97 04/03/17 23:20 04/04/17 01:02 04/04/17 01:02 04/04/17 01:02 04/03/17 23:20 Intake and Output: 04/03/17 04/04/17 18:59 06:59 Intake Total 400 Balance 400 - Medications Medications: Current Medications Cyanocobalamin (Vitamin B12 1000 Mcg Tab) 1,000 mcg PO DAILY [facility] Dextrose (Dextrose 50% Inj) 0 ml IV STAT PRN; Protocol PRN Reason: Hypoglycemia Protocol Dextrose (Glutose 15) 0 gm PO ONCE PRN; Protocol PRN Reason: Hypoglycemia Protocol Ferrous Sulfate (Feosol) 325 mg PO BID [facility] Last Admin: 04/03/17 18:00 Dose: Not Given Folic Acid (Folic Acid) 1 mg PO DAILY [facility] Glucagon (Glucagen Diagnostic Kit) 0 mg IM STAT PRN; Protocol PRN Reason: Hypoglycemia Protocol Heparin Sodium (Porcine) (Heparin) 5,000 units SC Q8 [facility] Hydralazine HCl (Apresoline) 10 mg IVP Q6H PRN PRN Reason: Systolic Blood Pressure Last Admin: 04/03/17 22:55 Dose: 10 mg Hydroxyzine HCl (Atarax) 25 mg PO Q6H PRN PRN Reason: Anxiety Dextrose (Dextrose 5% In Water 1000 Ml) 1,000 mls @ 0 mls/hr IV .Q0M PRN; Protocol; Per Protocol PRN Reason: Hypoglycemia Protocol Insulin Human Regular (Novolin R) 0 unit SC ACHS [facility] PRN Reason: Protocol Last Admin: 04/03/17 21:50 Dose: Not Given Labetalol HCl (Trandate) 200 mg PO BID [facility] Last Admin: 04/03/17 18:00 Dose: Not Given Levetiracetam (Keppra) 250 mg PO BID [facility] Last Admin: 04/03/17 18:00 Dose: Not Given Nifedipine (Procardia Xl) 60 mg PO DAILY [facility] Ondansetron HCl (Zofran Inj) 4 mg IVP Q6H PRN PRN Reason: Nausea/Vomiting Pantoprazole Sodium (Protonix Inj) 40 mg IVP Q24H [facility] Last Admin: 04/03/17 18:10 Dose: 40 mg - Labs Labs: 04/03/17 09:54 04/03/17 09:54 - Constitutional Appears: No Acute Distress - Head Exam Head Exam: ATRAUMATIC, NORMAL INSPECTION - Eye Exam Eye Exam: EOMI - ENT Exam ENT Exam: Mucous Membranes Moist - Respiratory Exam Respiratory Exam: Clear to Ausculation Bilateral, NORMAL BREATHING PATTERN - Cardiovascular Exam Cardiovascular Exam: REGULAR RHYTHM, +S1, +S2 - GI/Abdominal Exam GI & Abdominal Exam: Soft, Normal Bowel Sounds - Extremities Exam Extremities Exam: Normal Inspection. absent: Calf Tenderness - Neurological Exam Neurological Exam: Alert, Awake, Oriented x3 - Psychiatric Exam Psychiatric exam: Anxious - Skin Skin Exam: Normal Color Assessment and Plan (1) Hypertensive urgency Assessment & Plan: Medications: * Procardia XL 60mg PO daily * Trandate 200mg PO BID * Hydralazine 10mg IV Q6H prn, SBP> 160mmhg Continue to monitor with vital signs Q4H Status: Acute (2) Intractable vomiting Assessment & Plan: Per Dr. King, pt has been witnessed on prior admissions inducing vomiting - 1:1 ordered for close monitoring Hydroxyzine 25mg PO Q6 prn No reglan/Zofran due to prolonged QTc Status: Chronic (3) Prolonged Q-T interval on ECG Assessment & Plan: EKG on admission: NSR (HR 90 bpm) QTc 486 - HOLD all anti-emetics or other prolonging meds - repeat EKG in AM, if QTc remains elongated will consider cardio consult Status: Acute (4) [id number] kidney injury Assessment & Plan: Elevated BUN/CR; GFR 25 Cr 2.3, approximate baseline 2.0 NS @ 100 mls/hr, will decrease as pt begins eating/drinking again Continue to monitor Status: Acute (5) Hypertension Assessment & Plan: Poorly controlled Medications: * Procardia XL 60mg PO daily * Trandate 200mg PO BID * Hydralazine 10mg IV Q6H prn, SBP> 160mmhg Continue to monitor with vital signs Q4H Status: Acute (6) Uncontrolled diabetes mellitus Assessment & Plan: Latest HgbA1C 6.9 (02/2017) Accuchecks ISS- medium dose will monitor Hypoglycemia protocol Status: Acute (7) History of anemia Assessment & Plan: Monitor H/H; Hgb WNL Continue home medications: - Feosol 325mg PO BID - Vitamin B12 1,000mcg PO daily Status: Acute (8) History of pseudoseizure Assessment & Plan: Per Dr. King, patient has had EEG on prior admission - no seizure activity induced; - no post-ictal state - No neuro intervention at this time Keppra 250mg PO BID Status: Acute (9) History of marijuana use Assessment & Plan: Patient denies cocaine use f/u UDS Status: Acute (10) Prophylactic measure Assessment & Plan: GI: Protonix 40mg IV daily DVT: SCDs, heparin 5000 u Q Daily 1:1 (or Avasys if available) Disposition: Admitted to med/surg; will transfer to Tele; pt with hypertensive urgency. Brief aflutter. Must be monitored on tele. Avasys/1:1 to monitor behavior in pt with induced vomiting/pseudoseizures. All management discussed with Dr. Christine Ryan DO, PGY-1 Status: Acute
[2017-04-04] MEDS: Sodium Chloride 0.9% 1,000 ML IV SCH ×2 (03:46→22:36)
[2017-04-04] MEDS: (Novolin R) Insulin Human Regular 100 units/ml vial SC SCH ×4 (07:30→21:32)
[2017-04-04 08:22] LABS: BASO # 0.1 K/uL (0.0-0.2); EOS # 0.1 K/uL (0.0-0.7); EOS % 0.8 % (0.0-4.0); HEMATOCRIT 31.2 % (34.0-47.0); LYMPH # 2.3 K/uL (1.0-4.3); LYMPH % 32.8 % (20.0-40.0); MEAN CELL VOLUME 85.6 fL (81.0-99.0); MEAN CORPUSCULAR HEMOGLOBIN 28.7 pg (27.0-31.0); MEAN CORPUSCULAR HGB CONC 33.5 g/dL (33.0-37.0); MEAN PLATELET VOLUME 9.8 fL (7.2-11.7); MONO # 0.6 K/uL (0.0-0.8); MONO % 8.6 % (0.0-10.0); RED CELL DISTRIBUTION WIDTH 14.3 % (11.5-14.5); WHITE BLOOD COUNT 6.9 K/uL (4.8-10.8)
[2017-04-04 08:42] LABS: ALB/GLOB RATIO 1.1 (1.0-2.1); BILIRUBIN,TOTAL 0.4 mg/dL (0.2-1.3); CALCIUM 7.6 mg/dl (8.6-10.4); PHOSPHOROUS 4.2 mg/dL (2.5-4.5); POTASSIUM 3.5 mmol/L (3.6-5.2); TOTAL PROTEIN 5.1 g/dL (6.3-8.3)
[2017-04-04 08:52] LABS: TROPONIN I 0.018 ng/mL (0.00-0.120)
[2017-04-04] MEDS: NIFEdipine 60 mg ER Tab PO SCH (10:00)
[2017-04-04] MEDS: Acetaminophen 650mg/20.3ml solution UD PO ONE ×2 (18:33→18:37)
[2017-04-05 00:16] VITALS: RESP 20
--- NOTE | 2017-04-05 05:41 | CP.PCM.PN ---
Subjective - Date & Time of Evaluation Date of Evaluation: 04/05/17 Time of Evaluation: 01:10 - Subjective Subjective: Medicine Note for Dr. King' service Patient was seen and examined at bedside with her mother at bedside as well. Patient states that he is doing well and has no complaints. Patient denies chest pain, SOB, palpitations, dizziness, syncope, diaphoresis, nausea, vomiting , abdominal pain, fever and chills. Patient is tolerating liquid diet and ambulating. Objective - Vital Signs/Intake and Output Vital Signs (last 24 hours): Temp Pulse Resp BP Pulse Ox 98 F 97 H 20 120/74 97 04/05/17 00:00 04/05/17 05:37 04/05/17 05:37 04/05/17 05:37 04/05/17 00:00 Intake and Output: 04/04/17 04/05/17 18:59 06:59 Intake Total 1080 120 Balance 1080 120 - Medications Medications: Current Medications Cyanocobalamin (Vitamin B12 1000 Mcg Tab) 1,000 mcg PO DAILY [facility] Last Admin: 04/04/17 10:00 Dose: Not Given Dextrose (Dextrose 50% Inj) 0 ml IV STAT PRN; Protocol PRN Reason: Hypoglycemia Protocol Dextrose (Glutose 15) 0 gm PO ONCE PRN; Protocol PRN Reason: Hypoglycemia Protocol Ferrous Sulfate (Feosol) 325 mg PO BID [facility] Last Admin: 04/04/17 17:35 Dose: 325 mg Folic Acid (Folic Acid) 1 mg PO DAILY [facility] Last Admin: 04/04/17 10:00 Dose: Not Given Glucagon (Glucagen Diagnostic Kit) 0 mg IM STAT PRN; Protocol PRN Reason: Hypoglycemia Protocol Heparin Sodium (Porcine) (Heparin) 5,000 units SC Q8 [facility] Last Admin: 04/04/17 21:34 Dose: 5,000 units Hydralazine HCl (Apresoline) 10 mg IVP Q6H PRN PRN Reason: Systolic Blood Pressure Last Admin: 04/05/17 04:23 Dose: 10 mg Hydroxyzine HCl (Atarax) 25 mg PO Q6H PRN PRN Reason: Anxiety Last Admin: 04/04/17 17:35 Dose: 25 mg Dextrose (Dextrose 5% In Water 1000 Ml) 1,000 mls @ 0 mls/hr IV .Q0M PRN; Protocol; Per Protocol PRN Reason: Hypoglycemia Protocol Sodium Chloride (Sodium Chloride 0.9%) 1,000 mls @ 50 mls/hr IV .Q20H [facility] Last Admin: 04/04/17 22:36 Dose: 50 mls/hr Insulin Human Regular (Novolin R) 0 unit SC ACHS [facility] PRN Reason: Protocol Last Admin: 04/04/17 21:32 Dose: Not Given Labetalol HCl (Trandate) 200 mg PO BID [facility] Last Admin: 04/04/17 17:35 Dose: 200 mg Levetiracetam (Keppra) 250 mg PO BID [facility] Last Admin: 04/04/17 17:36 Dose: 250 mg Nifedipine (Procardia Xl) 60 mg PO DAILY [facility] Last Admin: 04/04/17 10:00 Dose: Not Given Ondansetron HCl (Zofran Inj) 4 mg IVP Q6H PRN PRN Reason: Nausea/Vomiting Pantoprazole Sodium (Protonix Inj) 40 mg IVP Q24H [facility] Last Admin: 04/04/17 17:36 Dose: 40 mg - Labs Labs: 04/04/17 08:00 04/04/17 08:00 - Constitutional Appears: Well, No Acute Distress - Head Exam Head Exam: ATRAUMATIC - Eye Exam Eye Exam: EOMI, Normal appearance - ENT Exam ENT Exam: Mucous Membranes Moist - Respiratory Exam Respiratory Exam: Clear to Ausculation Bilateral, NORMAL BREATHING PATTERN - Cardiovascular Exam Cardiovascular Exam: Tachycardia, REGULAR RHYTHM, +S1, +S2 - GI/Abdominal Exam GI & Abdominal Exam: Soft, Tenderness, Normal Bowel Sounds - Extremities Exam Extremities Exam: Normal Inspection. absent: Calf Tenderness, Pedal Edema - Neurological Exam Neurological Exam: Alert, Awake - Psychiatric Exam Psychiatric exam: Anxious - Skin Skin Exam: Normal Color Assessment and Plan (1) Hypertensive urgency Assessment & Plan: Medications: * Procardia XL 60mg PO daily * Trandate 200mg PO BID * Hydralazine 10mg IV Q6H prn, SBP> 160mmhg Continue to monitor with vital signs Q4H Status: Acute (2) Intractable vomiting Assessment & Plan: Per Dr. King, pt has been witnessed on prior admissions inducing vomiting - 1:1 ordered for close monitoring Hydroxyzine 25mg PO Q6 prn No reglan/Zofran due to prolonged QTc Status: Chronic (3) Abdominal pain Assessment & Plan: abdominal/Pelvis CT (03/20/17): Thick-walled under distended urinary bladder. Recommend correlation with urinalysis. Rectal wall thickening ; correlate clinically for possibility of proctitis. Moderate diffuse constipation. f/u repeat abdominal/Pelvis CT Status: Resolved (4) Prolonged Q-T interval on ECG Assessment & Plan: EKG on admission: NSR (HR 90 bpm) QTc 486, Repeat EKG still shows prolon - HOLD all anti-emetics or other prolonging meds Status: Acute (5) [id number] kidney injury Assessment & Plan: Elevated BUN/CR; GFR 25 Cr 2.3, approximate baseline 2.0 NS @ 50 mls/hr (at this rate due to htn) Continue to monitor Status: Acute (6) Hypertension Assessment & Plan: Poorly controlled Medications: * Procardia XL 60mg PO daily * Trandate 200mg PO BID * Hydralazine 10mg IV Q6H prn, SBP> 160mmhg Continue to monitor with vital signs Q4H Status: Acute (7) Uncontrolled diabetes mellitus Assessment & Plan: Latest HgbA1C 6.9 (02/2017) Accuchecks ISS- medium dose will monitor Hypoglycemia protocol Status: Acute (8) History of anemia Assessment & Plan: Monitor H/H; Hgb WNL Continue home medications: - Feosol 325mg PO BID - Vitamin B12 1,000mcg PO daily Status: Acute (9) History of pseudoseizure Assessment & Plan: Per Dr. King, patient has had EEG on prior admission; 1:1 or video - no seizure activity induced; - no post-ictal state - No neuro intervention at this time Keppra 250mg PO BID Status: Acute (10) History of marijuana use Assessment & Plan: Patient denies cocaine use UDS: + Cannabinoids and barbiturates Status: Acute (11) Prophylactic measure Assessment & Plan: GI: Protonix 40mg IV daily DVT: SCDs, heparin 5000 u Q Daily 1:1 (or Avasys if available) Disposition: Admitted to med/surg; will transfer to Tele; pt with hypertensive urgency. Brief aflutter. Must be monitored on tele. Avasys/1:1 to monitor behavior in pt with induced vomiting/pseudoseizures. All management discussed with Dr. Christine Ryan, , PGY-1 Status: Acute
[2017-04-05] MEDS: (Novolin R) Insulin Human Regular 100 units/ml vial SC SCH ×5 (05:56→21:43)
[2017-04-05] MEDS ORDERED: Potassium Chloride 20 mEq/15 ml LIQ UD PO ONE (06:13)
[2017-04-05 07:23] LABS: BASO # 0.1 K/uL (0.0-0.2); BASO % 0.8 % (0.0-2.0); EOS # 0.1 K/uL (0.0-0.7); EOS % 0.9 % (0.0-4.0); HEMATOCRIT 31.8 % (34.0-47.0); LYMPH # 1.1 K/uL (1.0-4.3); LYMPH % 17.5 % (20.0-40.0); MEAN CELL VOLUME 86.1 fL (81.0-99.0); MEAN CORPUSCULAR HEMOGLOBIN 28.5 pg (27.0-31.0); MEAN CORPUSCULAR HGB CONC 33.1 g/dL (33.0-37.0); MEAN PLATELET VOLUME 9.9 fL (7.2-11.7); MONO # 0.3 K/uL (0.0-0.8); MONO % 5.3 % (0.0-10.0); RED CELL DISTRIBUTION WIDTH 14.2 % (11.5-14.5); WHITE BLOOD COUNT 6.5 K/uL (4.8-10.8)
[2017-04-05 08:24] LABS: ALB/GLOB RATIO 1.1 (1.0-2.1); BILIRUBIN,TOTAL 0.2 mg/dL (0.2-1.3); MAGNESIUM 1.9 mg/dL (1.6-2.3); PHOSPHOROUS 3.6 mg/dL (2.5-4.5); POTASSIUM 3.5 mmol/L (3.6-5.2); TOTAL PROTEIN 4.5 g/dL (6.3-8.3)
[2017-04-05] MEDS: NIFEdipine 60 mg ER Tab PO SCH (10:00)
--- NOTE | 2017-04-05 17:04 | CT ---
CT abdomen and pelvis History: Abdominal pain. Comparison: 03/20/2017 Technique: Multiple contiguous axial images were performed through the abdomen and pelvis without the use of intravenous contrast. Subsequently, sagittal and coronal reformatted images were obtained. This CT exam was performed using one or more of the following dose reduction techniques: Automated exposure control, adjustment of the mA and/or kV according to patient size, and/or use of iterative reconstruction technique. Findings: Limited evaluation of the intra-abdominal organs without contrast. Mild atelectasis at the lung bases. No pleural or pericardial effusion. Perihepatic ascites. Moderate volume ascites in the mid and left eliazar abdomen extending into the pelvis. The liver and gallbladder are preserved. Spleen is preserved. Adrenal glands are preserved. Limited evaluation of the pancreas without contrast. Pancreas appears grossly preserved. Evaluation of the upper abdominal bowel demonstrates scattered areas of small bowel wall thickening which may represent an underlying enteritis. Clinical correlation. Right kidney: No calculi or hydronephrosis. Left Kidney: Punctate 1 millimeter nonobstructive calculus in midpole of the left kidney. Thick-walled urinary bladder. Heterogeneous uterus. Fecal retention in the rectum and colon. Suggestion of reactive thickening of the descending colon. Few scattered diverticuli. Appendix appears grossly preserved, contrast filled. Shotty para-aortic and inguinal lymph nodes. Few shotty mesenteric lymph nodes. Degenerative changes in the spine. Impression: Moderate amount of ascites in the abdomen and pelvis. Relative thickening of the small bowel loops in the upper mid abdomen which may represent an underlying enteritis. Clinical correlation. Thick-walled urinary bladder. Probable reactive thickening in the descending colon. Fecal retention in the colon and rectum. Additional findings as above.
[2017-04-05] MEDS: Sodium Chloride 0.9% 1,000 ML IV SCH (19:44)
[2017-04-06] MEDS: (Novolin R) Insulin Human Regular 100 units/ml vial SC SCH ×4 (06:24→17:17)
[2017-04-06 07:32] VITALS: O2SAT 100
--- NOTE | 2017-04-06 08:54 | CP.PCM.PN ---
Subjective - Date & Time of Evaluation Date of Evaluation: 04/06/17 Time of Evaluation: 08:54 - Subjective Subjective: PGY1 Progress Note for Dr. King Patient seen and examined at bedside this morning. Objective - Vital Signs/Intake and Output Vital Signs (last 24 hours): Temp Pulse Resp BP Pulse Ox 98 F 101 H 20 166/113 H 100 04/06/17 07:29 04/06/17 07:29 04/06/17 07:29 04/06/17 07:29 04/06/17 07:29 Intake and Output: 04/06/17 04/06/17 06:59 18:59 Intake Total 680 Balance 680 - Medications Medications: Current Medications Cyanocobalamin (Vitamin B12 1000 Mcg Tab) 1,000 mcg PO DAILY [facility] Last Admin: 04/05/17 10:00 Dose: Not Given Dextrose (Dextrose 50% Inj) 0 ml IV STAT PRN; Protocol PRN Reason: Hypoglycemia Protocol Dextrose (Glutose 15) 0 gm PO ONCE PRN; Protocol PRN Reason: Hypoglycemia Protocol Ferrous Sulfate (Feosol) 325 mg PO BID [facility] Last Admin: 04/05/17 17:43 Dose: 325 mg Folic Acid (Folic Acid) 1 mg PO DAILY [facility] Last Admin: 04/05/17 10:00 Dose: Not Given Glucagon (Glucagen Diagnostic Kit) 0 mg IM STAT PRN; Protocol PRN Reason: Hypoglycemia Protocol Heparin Sodium (Porcine) (Heparin) 5,000 units SC Q8 [facility] Last Admin: 04/06/17 05:38 Dose: 5,000 units Hydralazine HCl (Apresoline) 10 mg IVP Q6H PRN PRN Reason: Systolic Blood Pressure Last Admin: 04/06/17 05:37 Dose: 10 mg Hydroxyzine HCl (Atarax) 25 mg PO Q6H PRN PRN Reason: Anxiety Last Admin: 04/04/17 17:35 Dose: 25 mg Dextrose (Dextrose 5% In Water 1000 Ml) 1,000 mls @ 0 mls/hr IV .Q0M PRN; Protocol; Per Protocol PRN Reason: Hypoglycemia Protocol Sodium Chloride (Sodium Chloride 0.9%) 1,000 mls @ 50 mls/hr IV .Q20H [facility] Last Admin: 04/05/17 19:44 Dose: 50 mls/hr Insulin Human Regular (Novolin R) 0 unit SC ACHS [facility] PRN Reason: Protocol Last Admin: 04/06/17 06:24 Dose: 10 unit Labetalol HCl (Trandate) 200 mg PO BID [facility] Last Admin: 04/05/17 17:44 Dose: 200 mg Levetiracetam (Keppra) 250 mg PO BID [facility] Last Admin: 04/05/17 17:43 Dose: 250 mg Nifedipine (Procardia Xl) 60 mg PO DAILY [facility] Last Admin: 04/05/17 10:00 Dose: Not Given Ondansetron HCl (Zofran Inj) 4 mg IVP Q6H PRN PRN Reason: Nausea/Vomiting Pantoprazole Sodium (Protonix Inj) 40 mg IVP Q12H [facility] Last Admin: 04/06/17 08:18 Dose: 40 mg - Labs Labs: 04/05/17 07:12 04/05/17 07:12
[2017-04-06] MEDS: NIFEdipine 60 mg ER Tab PO SCH (10:48)
[2017-04-06 12:03] LABS: BASO # 0.1 K/uL (0.0-0.2); BASO % 0.7 % (0.0-2.0); EOS # 0.1 K/uL (0.0-0.7); EOS % 0.7 % (0.0-4.0); HEMATOCRIT 31.7 % (34.0-47.0); LYMPH # 1.1 K/uL (1.0-4.3); LYMPH % 13.5 % (20.0-40.0); MEAN CELL VOLUME 86.8 fL (81.0-99.0); MEAN CORPUSCULAR HEMOGLOBIN 28.8 pg (27.0-31.0); MEAN CORPUSCULAR HGB CONC 33.1 g/dL (33.0-37.0); MEAN PLATELET VOLUME 10.6 fL (7.2-11.7); MONO # 0.3 K/uL (0.0-0.8); MONO % 4.1 % (0.0-10.0); WHITE BLOOD COUNT 8.4 K/uL (4.8-10.8)
[2017-04-06 12:35] LABS: ALB/GLOB RATIO 1.2 (1.0-2.1); BILIRUBIN,TOTAL 0.2 mg/dL (0.2-1.3); CALCIUM 7.2 mg/dl (8.6-10.4); MAGNESIUM 1.9 mg/dL (1.6-2.3); PHOSPHOROUS 2.5 mg/dL (2.5-4.5); POTASSIUM 3.8 mmol/L (3.6-5.2); TOTAL PROTEIN 4.7 g/dL (6.3-8.3)
[2017-04-06 15:47] VITALS: BP 123/85; PULSE 85; TEMP 97.6
--- NOTE | 2017-04-07 06:55 | CP.PCM.DIS ---
Provider - Provider Date of Admission: 04/03/17 11:50 Attending physician: Reza King Jr, MD Time Spent in preparation of Discharge (in minutes): 30 Hospital Course - Lab Results Lab Results: Micro Results 04/03/17 09:50 Urine Urine Culture - Final No Growth (<1,000 CFU/ML) Most Recent Lab Values WBC 8.4 K/uL (4.8-10.8) 04/06/17 11:45 RBC 3.65 Mil/uL (3.80-5.20) L 04/06/17 11:45 Hgb 10.5 g/dL (11.0-16.0) L 04/06/17 11:45 Hct 31.7 % (34.0-47.0) L 04/06/17 11:45 MCV 86.8 fL (81.0-99.0) 04/06/17 11:45 MCH 28.8 pg (27.0-31.0) 04/06/17 11:45 MCHC 33.1 g/dL (33.0-37.0) 04/06/17 11:45 RDW 14.0 % (11.5-14.5) 04/06/17 11:45 Plt Count 306 K/uL (130-400) 04/06/17 11:45 MPV 10.6 fL (7.2-11.7) 04/06/17 11:45 Neut % (Auto) 81.0 % (50.0-75.0) H 04/06/17 11:45 Lymph % (Auto) 13.5 % (20.0-40.0) L 04/06/17 11:45 [place] % (Auto) 4.1 % (0.0-10.0) 04/06/17 11:45 Eos % (Auto) 0.7 % (0.0-4.0) 04/06/17 11:45 Baso % (Auto) 0.7 % (0.0-2.0) 04/06/17 11:45 Neut # 6.8 K/uL (1.8-7.0) 04/06/17 11:45 Lymph # 1.1 K/uL (1.0-4.3) 04/06/17 11:45 [place] # 0.3 K/uL (0.0-0.8) 04/06/17 11:45 Eos # 0.1 K/uL (0.0-0.7) 04/06/17 11:45 Baso # 0.1 K/uL (0.0-0.2) 04/06/17 11:45 Sodium 128 mmol/L (132-148) L 04/06/17 11:41 Potassium 3.8 mmol/L (3.6-5.2) 04/06/17 11:41 Chloride 97 mmol/L (98-107) L 04/06/17 11:41 Carbon Dioxide 22 mmol/L (22-30) 04/06/17 11:41 Anion Gap 12 (10-20) 04/06/17 11:41 BUN 21 mg/dL (7-17) H 04/06/17 11:41 Creatinine 1.8 mg/dL (0.7-1.2) H 04/06/17 11:41 Est GFR ( Amer) 41 04/06/17 11:41 Est GFR (Non-Af Amer) 34 04/06/17 11:41 POC Glucose (mg/dL) 266 mg/dL (65-110) H 04/06/17 16:26 Random Glucose 504 mg/dL (65-105) H* 04/06/17 11:41 Calcium 7.2 mg/dl (8.6-10.4) L 04/06/17 11:41 Phosphorus 2.5 mg/dL (2.5-4.5) 04/06/17 11:41 Magnesium 1.9 mg/dL (1.6-2.3) 04/06/17 11:41 Total Bilirubin 0.2 mg/dL (0.2-1.3) 04/06/17 11:41 AST 18 U/L (14-36) 04/06/17 11:41 ALT 29 U/L (9-52) 04/06/17 11:41 Alkaline Phosphatase 106 U/L (38-126) 04/06/17 11:41 Total Creatine Kinase 72 U/L (30-135) 04/04/17 08:00 CK-MB (Mass) 0.52 ng/mL (0.0-3.38) 04/04/17 08:00 Troponin I 0.0180 ng/mL (0.00-0.120) 04/04/17 08:00 Total Protein 4.7 g/dL (6.3-8.3) L 04/06/17 11:41 Albumin 2.5 g/dL (3.5-5.0) L 04/06/17 11:41 Globulin 2.2 gm/dL (2.2-3.9) 04/06/17 11:41 Albumin/Globulin Ratio 1.2 (1.0-2.1) 04/06/17 11:41 Amylase 66 U/L (30-110) 04/03/17 09:54 Lipase < 10 U/L (23-300) L 04/03/17 09:54 Urine Color Yellow (YELLOW) 04/03/17 10:54 Urine Clarity Clear (Clear) 04/03/17 10:54 Urine pH 6.0 (5.0-8.0) 04/03/17 10:54 Ur Specific [place] 1.025 (1.003-1.030) 04/03/17 10:54 Urine Protein 3+ mg/dL (NEGATIVE) H 04/03/17 10:54 Urine Glucose (UA) 3+ mg/dL (Normal) H 04/03/17 10:54 Urine Ketones Trace mg/dL (NEGATIVE) 04/03/17 10:54 Urine Blood Negative (NEGATIVE) 04/03/17 10:54 Urine Nitrate Negative (NEGATIVE) 04/03/17 10:54 Urine Bilirubin Negative (NEGATIVE) 04/03/17 10:54 Urine Urobilinogen Normal mg/dL (0.2-1.0) 04/03/17 10:54 Ur Leukocyte Esterase Neg Kathy/uL (Negative) 04/03/17 10:54 Urine WBC (Auto) 6 /hpf (0-5) H 04/03/17 10:54 Urine RBC (Auto) 4 /hpf (0-3) H 04/03/17 10:54 Ur Squamous Epith Cells 7 /hpf (0-5) H 04/03/17 10:54 Urine Bacteria Rare (<OCC) 04/03/17 10:54 Hyaline Casts 3-5 /lpf (0-2) H 04/03/17 10:54 Urine HCG, Qual Negative (NEGATIVE) 04/03/17 10:54 Urine Opiates Screen Negative (NEGATIVE) 04/04/17 08:21 Urine Methadone Screen Negative (NEGATIVE) 04/04/17 08:21 Ur Barbiturates Screen Positive (NEGATIVE) H 04/04/17 08:21 Ur Phencyclidine Scrn Negative (NEGATIVE) 04/04/17 08:21 Ur Amphetamines Screen Negative (NEGATIVE) 04/04/17 08:21 U Benzodiazepines Scrn Negative (NEGATIVE) 04/04/17 08:21 U Oth Cocaine Metabols Negative (NEGATIVE) 04/04/17 08:21 U Cannabinoids Screen Positive (NEGATIVE) H 04/04/17 08:21 - Hospital Course Hospital Course: As per admission documentation, CC: Vomiting, abdominal pain and hypoglycemia HPI: Patient is a 26 year old with past medical history of DM, 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 Patient has had multiple admissions for same symptoms. Mother at bedside states patient was vomiting consistently for the past two days. Patient denies seeing blood in the vomit. Mother reports seeing Dr. King in the office yesterday, and he advised her to continue taking Reglan PO. Mother admits patient checks BG 4 times per day, and is "always > 200." Per mother, patient is following Dr. King instructions of Lantus 15 units at night, and 10 units of Humalog with meals. Mother reports pt has seizure-like activity, that is worsened by stress. Mother denies past losing bladder/bowel control, tongue biting, or confusion after episodes. Hospital Course Patient was admitted to telemetry on 04/03 for uncontrolled diabetes, HTN urgency and prolonged QTc. EKG on admission showed NSR (HR 90 bpm) QTc 486. CT abd/pel 04/04 - Moderate amount of ascites in the abdomen and pelvis. Relative thickening of the small bowel loops in the upper mid abdomen which may represent an underlying enteritis. Clinical correlation. Thick-walled urinary bladder. Probable reactive thickening in the descending colon. Fecal retention in the colon and rectum. Patient was stable throughout her hospital stay. Patient has an extensive past medical history with multiple previous admissions for uncontrolled diabetes. Her vomiting resolved and patient was instructed of the importance of medication compliance. Patient was discharged home with no new prescriptions. (1) Hypertensive urgency Assessment & Plan: Medications: * Procardia XL 60mg PO daily * Trandate 200mg PO BID * Hydralazine 10mg IV Q6H prn, SBP> 160mmhg Continue to monitor with vital signs Q4H Status: Acute (2) Intractable vomiting Assessment & Plan: Per Dr. King, pt has been witnessed on prior admissions inducing vomiting - 1:1 ordered for close monitoring Hydroxyzine 25mg PO Q6 prn No reglan/Zofran due to prolonged QTc Status: Chronic (3) Abdominal pain Assessment & Plan: abdominal/Pelvis CT (03/20/17): Thick-walled under distended urinary bladder. Recommend correlation with urinalysis. Rectal wall thickening ; correlate clinically for possibility of proctitis. Moderate diffuse constipation. f/u repeat abdominal/Pelvis CT Status: Resolved (4) Prolonged Q-T interval on ECG Assessment & Plan: EKG on admission: NSR (HR 90 bpm) QTc 486, Repeat EKG still shows prolon - HOLD all anti-emetics or other prolonging meds Status: Acute (5) Dgxad-pz-cznrxly kidney injury Assessment & Plan: Elevated BUN/CR; GFR 25 Cr 2.3, approximate baseline 2.0 NS @ 50 mls/hr (at this rate due to htn) Continue to monitor Status: Acute (6) Hypertension Assessment & Plan: Poorly controlled Medications: * Procardia XL 60mg PO daily * Trandate 200mg PO BID * Hydralazine 10mg IV Q6H prn, SBP> 160mmhg Continue to monitor with vital signs Q4H Status: Acute (7) Uncontrolled diabetes mellitus Assessment & Plan: Latest HgbA1C 6.9 (02/2017) Accuchecks ISS- medium dose will monitor Hypoglycemia protocol Status: Acute (8) History of anemia Assessment & Plan: Monitor H/H; Hgb WNL Continue home medications: - Feosol 325mg PO BID - Vitamin B12 1,000mcg PO daily Status: Acute (9) History of pseudoseizure Assessment & Plan: Per Dr. King, patient has had EEG on prior admission; 1:1 or video - no seizure activity induced; - no post-ictal state - No neuro intervention at this time Keppra 250mg PO BID Status: Acute (10) History of marijuana use Assessment & Plan: Patient denies cocaine use UDS: + Cannabinoids and barbiturates Status: Acute (11) Prophylactic measure Assessment & Plan: GI: Protonix 40mg IV daily DVT: SCDs, heparin 5000 u Q Daily 1:1 (or Avasys if available) Disposition: Admitted to med/surg; will transfer to Tele; pt with hypertensive urgency. Brief aflutter. Must be monitored on tele. Avasys/1:1 to monitor behavior in pt with induced vomiting/pseudoseizures. All management discussed with Dr. Christine Ryan, DO, PGY-1 Discharge Instructions Patient is to be discharged home per Dr. King. Patient is instructed to follow up with Dr. King on Thursday in his office. Patient is not being given any new prescriptions today. She is to continue to take her home medications as directed. She was instructed to call her insurance company again in an attempt to get an insulin pump. Patient states she has the contact number, if she does not have the number, she is to contact Dr. King's office who will provide her with it. Patient informed of urgency of getting insulin pump and importance of consistent monitoring of her blood glucose levels. This is a brief summary of the patient's hospital course. Please review EMR for full record. Discharge Exam - Head Exam Head Exam: ATRAUMATIC, NORMOCEPHALIC - Eye Exam Eye Exam: EOMI, Normal appearance, PERRL Pupil Exam: NORMAL ACCOMODATION - ENT Exam ENT Exam: Mucous Membranes Moist - Respiratory Exam Respiratory Exam: NORMAL BREATHING PATTERN, UNREMARKABLE. absent: Accessory Muscle Use, Respiratory Distress - Cardiovascular Exam Cardiovascular Exam: REGULAR RHYTHM - GI/Abdominal Exam GI & Abdominal Exam: Normal Bowel Sounds, Soft. absent: Distended, Firm, Guarding, Rigid, Tenderness - Neurological Exam Neurological exam: Alert, CN II-XII Intact, Oriented x3 - Psychiatric Exam Psychiatric exam: Normal Affect, Normal Mood - Skin Skin Exam: Dry, Warm Discharge Plan - Follow Up Plan Condition: FAIR Disposition: HOME/ ROUTINE Instructions: Diabetic Gastroparesis (DC), Chronic Kidney Disease (DC), Diabetes Mellitus Type 2 in Adults (DC), Acute Nausea and Vomiting (DC), Hypertension (DC), Hypertension (GEN), Renal Failure Diet (DC) Additional Instructions: Patient is to be discharged home per Dr. King. Patient is instructed to follow up with Dr. King on Thursday in his office. Patient is not being given any new prescriptions today. She is to continue to take her home medications as directed. She was instructed to call her insurance company again in an attempt to get an insulin pump. Patient states she has the contact number, if she does not have the number, she is to contact Dr. King's office who will provide her with it. Patient informed of urgency of getting insulin pump and importance of consistent monitoring of her blood glucose levels. Referrals: Reza King Jr., MD [Medical Doctor] -
== END 2017-04-06 19:24 | disposition home or self-care (01) | DRG 295 ==
LOC: C.ER 09:30 → C.9E 11:50 → C.3T 12:35 → C.5S 15:56
PROVIDERS: ADMIT Internal Medicine; ATTEND Internal Medicine
DX: E11.649 Type 2 diabetes mellitus with hypoglycemia without coma (principal); I16.0 Hypertensive urgency; N17.9 Acute kidney failure, unspecified; K31.84 Gastroparesis; I45.81 Long QT syndrome; E11.22 Type 2 diabetes mellitus with diabetic chronic kidney disease; E11.43 Type 2 diabetes mellitus with diabetic autonomic (poly)neuropathy; I48.92 Unspecified atrial flutter; I12.9 Hypertensive chronic kidney disease with stage 1 through stage 4 chronic kidney disease, or unspecified chronic kidney disease; N18.3 Chronic kidney disease, stage 3 (moderate); R56.9 Unspecified convulsions; R18.8 Other ascites; Z79.4 Long term (current) use of insulin

== ENCOUNTER 2017-05-31 16:17 | Inpatient (IN) | payer MEDICAID ==
[2017-05-31 16:29] VITALS: BMI 25.6
[2017-05-31] MEDS ORDERED: Sodium Chloride 0.9% 1,000 ML IV ONE (17:22)
[2017-05-31] MEDS ORDERED: hydrOXYzine HCl 25 mg/ml Inj IM STA (17:22)
--- NOTE | 2017-05-31 17:34 | C.PDOC ---
History Of Present Illness Yelena Larry is a 26 year old female, whose past medical history includes HTN, seizure disorder (and pseudo-seizure), diabetes, who is well known to the ER and presents today via EMS complaining of possible seizure prior to arrival. EMS reports blood sugar was 15 and treated patient with Dextrose. Patient states she was discharged yesterday night from [facility] after being treated for hypoglycemia, vomiting and seizures. She explains this morning she was nauseous, vomiting, and had food intolerance causing her to become hypoglycemic again and had a seizure. Patient is now complaining of persistent nausea and abdominal discomfort. Patient denies any chest pain, shortness of breath, headache, diarrhea, fever, chills, cough, visual changes, tongue biting , or head injury. Additionally, patient states having slight inconsistent of urine. Time Seen by Provider: 05/31/17 17:06 Chief Complaint (Nursing): Seizure History Per: Patient, EMS History/Exam Limitations: no limitations Recent Seizure Activity Began: Just Before Arrival Number Of Seizures: One Length Of Seizures (Duration): Unknown Precipitating Factor(s): Other (hypoglycemia ) Associated Symptoms: Incontinence Of Urine (slight) Recent travel outside of the [place]: No Additional History Per: EMS Past Medical History Reviewed: Historical Data, Nursing Documentation, Vital Signs Vital Signs: Last Vital Signs Temp 99.1 F 05/31/17 16:29 Pulse 111 H 05/31/17 18:30 Resp 98 H 05/31/17 18:30 BP 208/127 H 05/31/17 18:30 Pulse Ox 98 05/31/17 18:30 - Medical History PMH: Anemia, Anxiety, Depression, Diabetes, HTN, Seizures Denies: Chronic Kidney Disease - [facility] Procedures EXCISION OF STOMACH, ENDO, DIAGN (11/02/16) EXCISION OF STOMACH, PYLORUS, ENDO, DIAGN (03/10/17) INSERTION OF INFUSION DEV INTO L SUBCLAV VEIN, PERC APPROACH (10/28/16) INSERTION OF INFUSION DEV INTO SUP VENA CAVA, PERC APPROACH (11/02/16) INTRODUCTION OF NUTRITIONAL INTO PERIPH VEIN, PERC APPROACH (10/16/16) ULTRASONOGRAPHY OF SUPERIOR VENA CAVA, GUIDANCE (10/16/16) Family History: States: Unknown Family Hx - Social History Hx Alcohol Use: No Hx Substance Use: Yes (marijuana) - Immunization History Hx Tetanus Toxoid Vaccination: No Hx Influenza Vaccination: Yes Hx Pneumococcal Vaccination: Yes Review Of Systems Constitutional: Negative for: Fever, Chills Cardiovascular: Negative for: Chest Pain Respiratory: Negative for: Cough, Shortness of Breath Gastrointestinal: Positive for: Nausea, Abdominal Pain (discomfort). Negative for: Vomiting, Hematemesis Genitourinary: Negative for: Dysuria, Frequency, Hematuria Skin: Negative for: Rash Neurological: Positive for: Seizures. Negative for: Weakness, Numbness, Change in Speech, Headache, Dizziness Psych: Negative for: Anxiety Physical Exam - Physical Exam Appears: Well, Non-toxic, No Acute Distress Skin: Normal Color, Warm, Dry Head: Atraumatic, Normacephalic Eye(s): bilateral: Normal Inspection, PERRL (Normal), EOMI (Normal) Nose: Normal Oral Mucosa: Moist Tongue: Normal Appearing, No Bite Lips: Normal Appearing Neck: Normal ROM Cardiovascular: Rhythm Regular, No Murmur Respiratory: Normal Breath Sounds, No Decreased Breath Sounds, No Rales, No Rhonchi, No Wheezing Gastrointestinal/Abdominal: Normal Exam, Bowel Sounds (normal), Soft, No Tenderness, No Distention, No Guarding, No Rebound Extremity: Normal ROM, No Tenderness, No Pedal Edema, No Deformity, No Swelling Extremity: Bilateral: Atraumatic Neurological/Psych: Oriented x3, Normal Speech, Normal Cognition, Normal Cranial Nerves, Normal Motor, Normal Sensation, Normal Reflexes ED Course And Treatment - Laboratory Results Result Diagrams: 05/31/17 18:20 05/31/17 18:20 Lab Interpretation: Abnormal (WBC 22.3, BUN 27, Cr 2.3. Initial blood sugar 30, increased to 83 post D50 and juice and sandwich.) O2 Sat by Pulse Oximetry: 98 (room air) Pulse Ox Interpretation: Normal Reevaluation Time: 19:10 Reassessment Condition: Improved - Physician Consult Information Time Consulting Physician Contacted: 19:10 Physician Contacted: Reza King Jr. Outcome Of Conversation: Patient to be admitted for gastroparesis with hypoglycemia and seizures. Medical Decision Making Medical Decision Making: Impression: 26 y/o female with seizure episode caused by hypoglycemia c/o consistent nausea and abdominal discomfort. Plan: -- EKG -- Labs -- Urinalysis -- Atarax and Sodium Chloride -- Reassess and disposition Progress Notes: Disposition - Disposition Disposition: HOSPITALIZED Disposition Time: 19:11 Condition: IMPROVED - POA Present On Arrival: Poor Glycemic Control - Clinical Impression Clinical Impression: Gastroparesis, Diabetes mellitus, Seizure disorder, Diabetic gastroparesis - Scribe Statement The provider has reviewed the documentation as recorded by the Scribe Scribe Attestation: Neisha Villarealibe Attestation: All medical record entries made by the Scribe were at my direction and personally dictated by me. I have reviewed the chart and agree that the record accurately reflects my personal performance of the history, physical exam, medical decision making, and the department course for this patient. I have also personally directed, reviewed, and agree with the discharge instructions and disposition.
[2017-05-31] MEDS ORDERED: Dextrose 50% VIAL Inj (50 ml) IV ONE (17:37)
[2017-05-31] MEDS ORDERED: Sodium Chloride 0.9% 1,000 ML ONE (17:37)
[2017-05-31] MEDS ORDERED: Dextrose 50% SYRINGE Inj (50 ml) IV STA (17:51)
[2017-05-31 18:28] LABS: BASO # 0.1 K/uL (0.0-0.2); BASO % 0.3 % (0.0-2.0); EOS # 0.1 K/uL (0.0-0.7); EOS % 0.6 % (0.0-4.0); LYMPH # 1.1 K/uL (1.0-4.3); LYMPH % 4.8 % (20.0-40.0); MEAN CELL VOLUME 83.9 fL (81.0-99.0); MEAN CORPUSCULAR HEMOGLOBIN 27.6 pg (27.0-31.0); MEAN CORPUSCULAR HGB CONC 32.9 g/dL (33.0-37.0); MEAN PLATELET VOLUME 9.2 fL (7.2-11.7); MONO # 0.7 K/uL (0.0-0.8); MONO % 3.2 % (0.0-10.0); NEUT # 20.3 K/uL (1.8-7.0); NEUT % 91.1 % (50.0-75.0); PLATELET COUNT 344 K/uL (130-400); RBC 4.35 Mil/uL (3.80-5.20); RED CELL DISTRIBUTION WIDTH 14.4 % (11.5-14.5); WHITE BLOOD COUNT 22.3 K/uL (4.8-10.8)
[2017-05-31 18:44] LABS: ALB/GLOB RATIO 1.1 (1.0-2.1); ALBUMIN 3.6 g/dL (3.5-5.0)
[2017-05-31 19:21] LABS: EOSINOPHIL 1 % (0-4); LYMPHOCYTE 7 % (20-40); MONOCYTE 3 % (0-10); NEUTROPHIL 89 % (50-75); PLATELET ESTIMATE NORMAL (NORMAL); TOTAL CELLS COUNTED 100
[2017-05-31] MEDS ORDERED: Labetalol 5 mg/ml Inj 20ML IV STA (19:40)
[2017-05-31] MEDS ORDERED: Labetalol 25mg/5ml Syringe ONE (19:46)
[2017-05-31] MEDS ORDERED: hydrOXYzine HCl 25 mg/ml Inj IM PRN (20:51)
--- NOTE | 2017-05-31 21:01 | CP.PCM.HP ---
History of Present Illness - History of Present Illness History of Present Illness: CC: "gastroparesis and vomiting" HPI: Patient is a 26 year old female with a past medical history of DM, HTN, gastroparesis, and seizure disorder (to include pseudo-seizure), who presents to the ED with complaints of vomiting, nausea, and gastroparesis. Mother is at bedside and assists with history as patient is actively vomiting. Patient was discharged from [facility] yesterday for similar complaints, and was hospitalized for approximately 5-6 days. As per mother, patient ate dinner without complications and then went out last night with a friend, returning home after 11pm. Patient was home all day today and the mother received a phone call that there were ambulances outside her house. In the field, patient's glucose was 15. Patient states she took her insulin today, but did not eat much. Patient admits to abdominal pain, weakness, nausea, and vomiting. Patient denies chest pain, palpitations, fevers, chills, shortness of breath, cough, d/c , and headaches. PMD: Dr. King PMHx: HTN, DM, gastroparesis, seizure disorder (to include pseudo-seizures) SurgHx: denies FamHx: Grandmother- DM SocHx: denies tobacco, alcohol, and drug use Allergies: NKDA Medications: Insulin 5 units QID, hydroxyzine 25mg daily, vitamin D 00819 units weekly, feosol 325mg BID, nifedipine 30mg PO daily, folic acid 1mg daily, losartan 25mg po daily, protonix 40mg HS, keppra 250mg BID, vitamin B12 1000mg daily. Present on Admission - Present on Admission Any Indicators Present on Admission: Yes History of Uncontrolled Diabetes: Yes Review of Systems - Review of Systems Systems not reviewed;Unavailable: Acuity of Condition (vomiting) - Constitutional Constitutional: Weakness. absent: Chills, Fever, Headache - EENT Ears: absent: Dizziness - Cardiovascular Cardiovascular: absent: Chest Pain, Dyspnea, Palpitations - Respiratory Respiratory: absent: Cough, Dyspnea - Gastrointestinal Gastrointestinal: Abdominal Pain, Nausea, Vomiting. absent: Constipation, Diarrhea - Neurological Neurological: Weakness. absent: Dizziness, Headaches Past Patient History - Infectious Disease Hx of Infectious Diseases: None - Past Medical History & Family History Past Medical History?: Yes - Past Social History Smoking Status: Never Smoked - CARDIAC Hx Hypertension: Yes - PULMONARY Hx Respiratory Disorders: No - NEUROLOGICAL Hx Seizures: Yes - HEENT Hx HEENT Problems: Yes Other/Comment: blurred vision both eyes uses eyeglasses - RENAL Hx Chronic Kidney Disease: No - ENDOCRINE/METABOLIC Hx Diabetes Mellitus Type 2: Yes - HEMATOLOGICAL/ONCOLOGICAL Hx Anemia: Yes - INTEGUMENTARY Hx Dermatological Problems: No - MUSCULOSKELETAL/RHEUMATOLOGICAL Hx Falls: No - GASTROINTESTINAL Hx Gastrointestinal Disorders: Yes (SEE COMMENT) Other/Comment: gastroparesis - GENITOURINARY/GYNECOLOGICAL Hx Genitourinary Disorders: No - PSYCHIATRIC Hx Anxiety: Yes Hx Depression: Yes Hx Substance Use: Yes (marijuana) - SURGICAL HISTORY Hx Surgeries: No - ANESTHESIA Hx Anesthesia: No Meds Allergies/Adverse Reactions: Allergies Allergy/AdvReac Type Severity Reaction Status Date / Time No Known Allergies Allergy Verified 04/03/17 09:42 Physical Exam - Head Exam Head Exam: NORMAL INSPECTION - Eye Exam Eye Exam: Normal appearance - ENT Exam ENT Exam: Mucous Membranes Moist - Respiratory Exam Respiratory Exam: Clear to Auscultation Bilateral, NORMAL BREATHING PATTERN. absent: Rales, Rhonchi, Wheezes, Respiratory Distress - Cardiovascular Exam Cardiovascular Exam: Tachycardia, +S1, +S2 - GI/Abdominal Exam GI & Abdominal Exam: Normal Bowel Sounds, Soft, Tenderness (with palpation, diffuse). absent: Distended, Firm - Extremities Exam Extremities exam: Positive for: normal inspection - Skin Skin Exam: Dry, Intact, Normal Color, Warm Results - Vital Signs Recent Vital Signs: Last Vital Signs Temp 99.1 F 05/31/17 16:29 Pulse 113 H 05/31/17 19:45 Resp 20 05/31/17 19:45 BP 217/136 H 05/31/17 19:45 Pulse Ox 97 05/31/17 19:45 - Labs Result Diagrams: 05/31/17 18:20 05/31/17 18:20 Labs: Laboratory Results - last 24 hr 05/31/17 05/31/17 05/31/17 17:33 17:34 18:20 WBC 22.3 H D RBC 4.35 Hgb 12.0 Hct 36.5 MCV 83.9 D MCH 27.6 MCHC 32.9 L RDW 14.4 Plt Count 344 MPV 9.2 Neut % (Auto) 91.1 H Lymph % (Auto) 4.8 L [place] % (Auto) 3.2 Eos % (Auto) 0.6 Baso % (Auto) 0.3 Neut # (Auto) 20.3 H Lymph # (Auto) 1.1 [place] # (Auto) 0.7 Eos # (Auto) 0.1 Baso # (Auto) 0.1 Neutrophils % (Manual) 89 H Lymphocytes % (Manual) 7 L Monocytes % (Manual) 3 Eosinophils % (Manual) 1 Platelet Estimate Normal RBC Morphology Normal Sodium Potassium Chloride Carbon Dioxide Anion Gap BUN Creatinine Est GFR ( Amer) Est GFR (Non-Af Amer) POC Glucose (mg/dL) 32 L* 30 L* Random Glucose Calcium Total Bilirubin AST ALT Alkaline Phosphatase Total Protein Albumin Globulin Albumin/Globulin Ratio 05/31/17 05/31/17 05/31/17 18:20 19:04 20:22 WBC RBC Hgb Hct MCV MCH MCHC RDW Plt Count MPV Neut % (Auto) Lymph % (Auto) [place] % (Auto) Eos % (Auto) Baso % (Auto) Neut # (Auto) Lymph # (Auto) [place] # (Auto) Eos # (Auto) Baso # (Auto) Neutrophils % (Manual) Lymphocytes % (Manual) Monocytes % (Manual) Eosinophils % (Manual) Platelet Estimate RBC Morphology Sodium 141 Potassium 3.6 Chloride 100 Carbon Dioxide 29 Anion Gap 14 BUN 27 H Creatinine 2.3 H Est GFR ( Amer) 31 Est GFR (Non-Af Amer) 25 POC Glucose (mg/dL) 83 109 Random Glucose 85 Calcium 9.0 Total Bilirubin 0.4 AST 27 ALT 23 Alkaline Phosphatase 138 H D Total Protein 6.9 Albumin 3.6 Globulin 3.3 Albumin/Globulin Ratio 1.1 Assessment & Plan (1) Nausea and vomiting Assessment and Plan: Likely secondary to gastroparesis Zofran 4mg IV Q6 prn D5W@100mls/hr Continue to monitor Status: Acute (2) Uncontrolled diabetes mellitus Assessment and Plan: A1c (02/2017): 6.9 A1c: f/u results Hypoglycemia protocol ISS low Accuchecks Continue to monitor Status: Chronic Priority: High (3) Hypertensive urgency Assessment and Plan: At admission: 217/136 Patient states she did not take BP med today EKG: sinus tachycardia @106bpm Monitor on telemetry Continued home medications: Nifedipine 60mg daily, Losartan 25mg daily, labetalol 200mg BID Hydralazine 10mg IV Q6 prn for SBP >160 Status: Acute (4) Seizure Assessment and Plan: Hx of seizures and pseudo-seizures Home medication: Keppra 250mg PO BID- held due to vomiting Started Keppra 500mg IV Q12 Ativan 1mg IV Q6 prn Seizure precautions Continue to monitor Status: Acute Priority: Medium (5) Prophylactic measure Assessment and Plan: SCDs, Heparin 5000u SC Q8 Protonix 40mg PO daily Seizure precaution Telemetry Status: Acute
--- NOTE | 2017-05-31 22:03 | PCM.RRT ---
<Hanane Presley - Last Filed: 05/31/17 23:45> EP TECHNOLOGIST Nurses Assessment - Situation Date: 05/31/17 - Head Head Exam: NORMAL INSPECTION - Respiratory Exam Respiratory Exam: Clear to Ausculation Bilateral, NORMAL BREATHING PATTERN. absent: Respiratory Distress - Cardiovascular Exam Cardiovascular Exam: REGULAR RHYTHM, +S1, +S2 - GI/Abdominal Exam GI & Abdominal Exam: Soft, Normal Bowel Sounds. absent: Distended - Neurological Exam Neurological Exam: absent: Alert, Awake - Extremities Exam Extremities Exam: Normal Inspection Plan - Assessment of Findings&Treatment Plan EP TECHNOLOGIST was called for witnessed seizure. Per nurse and mother at bedside, patient has two seizures, lasting approximately 5 seconds and 10 seconds. Patient's vitals were taken: BP 222/125, O2 sat 98%, T98.7, HR 89. Glucose was 200. Patient was examined, no contractures, tongue bites, or postictal symptoms noted. Patient woke up and immediately started crying she had abdominal pain and then started to vomit. When asked how to help, patient states ativan helps. Ativan 1mg IV once was given. Patient calmed down and pain decreased. Patient's vitals are stable. Patient placed on telemetry. Patient take keppra 250mg PO BID at home- started keppra 500mg IV. Zofran 4mg Q6h PRN also ordered. <Jerson Brown - Last Filed: 06/01/17 06:57> EP TECHNOLOGIST Nurses Assessment - Vital Signs Vital Signs: Rapid Response Vital Sign Blood Pressure 222/125 Pulse Rate 89 Respiratory Rate 20 Temperature 98.7 F Oxygen Saturation 98 - Vital Signs at end of EP TECHNOLOGIST Vital Signs at end of EP TECHNOLOGIST: Rapid Response End Vital Sign Blood Pressure 155/98 Pulse Rate 102 Respiratory Rate 20 Temperature 98 F O2 Sat by Pulse Oximetry 99 Attending/Attestation - Attestation I have personally seen and examined this patient.: Yes I have fully participated in the care of the patient.: Yes I have reviewed all pertinent clinical information, including history, physical exam and plan: Yes
[2017-05-31] MEDS: (Novolin R) Insulin Human Regular 100 units/ml vial SC SCH (22:27)
[2017-06-01 04:57] LABS: HCG,QUALITATIVE URINE NEGATIVE (NEGATIVE)
[2017-06-01 05:00] LABS: SQUAMOUS EPITHIAL 4 /hpf (0-5); URINE BACTERIA OCC (<OCC); URINE BILIRUBIN NEGATIVE (NEGATIVE); URINE BLOOD NEGATIVE (NEGATIVE); URINE CLARITY Hazy (Clear); URINE COLOR Straw (YELLOW); URINE GLUCOSE (UA) 3+ mg/dL (Normal); URINE LEUKOCYTE ESTERASE NEG Leu/uL (Negative); URINE NITRATE NEGATIVE (NEGATIVE); URINE PROTEIN 3+ mg/dL (NEGATIVE); URINE UROBILINOGEN NORMAL mg/dL (0.2-1.0)
[2017-06-01] MEDS: (Novolin R) Insulin Human Regular 100 units/ml vial SC SCH ×4 (07:30→22:48)
[2017-06-01 07:40] LABS: BASO % 0.3 % (0.0-2.0); EOS % 0.1 % (0.0-4.0); HEMOGLOBIN 10.4 g/dL (11.0-16.0); LYMPH # 1.9 K/uL (1.0-4.3); LYMPH % 17.6 % (20.0-40.0); MEAN CELL VOLUME 84.8 fL (81.0-99.0); MEAN CORPUSCULAR HEMOGLOBIN 28.8 pg (27.0-31.0); MEAN CORPUSCULAR HGB CONC 33.9 g/dL (33.0-37.0); MEAN PLATELET VOLUME 9.8 fL (7.2-11.7); MONO # 0.6 K/uL (0.0-0.8); MONO % 5.1 % (0.0-10.0); NEUT # 8.4 K/uL (1.8-7.0); NEUT % 76.9 % (50.0-75.0); RBC 3.61 Mil/uL (3.80-5.20); RED CELL DISTRIBUTION WIDTH 14.5 % (11.5-14.5)
[2017-06-01 08:19] LABS: ALB/GLOB RATIO 0.9 (1.0-2.1); ALBUMIN 2.7 g/dL (3.5-5.0); CALCIUM 7.9 mg/dl (8.6-10.4)
[2017-06-01] MEDS: NIFEdipine 60 mg ER Tab PO SCH (10:00)
--- NOTE | 2017-06-01 19:48 | CP.PCM.PN ---
Subjective - Date & Time of Evaluation Date of Evaluation: 06/01/17 Time of Evaluation: 08:45 - Subjective Subjective: PGY1 Medicine Note for Dr. King Patient seen and examined this morning. Patient admitted overnight for nausea and vomiting secondary to known gastroparesis. Overnight patient experienced two seizures lasting 10 and 5 seconds, per mother and nurse. There was no post- ictal state upon completion of seizure. She was given 1 mg of Ativan. See PRACTICE PERFORMANCE MANAGER note for complete details. Upon this morning, patient is resting comfortably in her bed. She was awoken to be examined. At this time, patient states she is extremely nauseous and in a lot of pain. She was informed that these symptoms are expected from her known poorly controlled diabetes and gastroparesis. She quickly fell bad asleep and did not want to talk. Objective - Vital Signs/Intake and Output Vital Signs (last 24 hours): Temp Pulse Resp BP Pulse Ox 98.5 F 78 20 141/87 96 06/01/17 16:00 06/01/17 16:00 06/01/17 16:00 06/01/17 16:00 06/01/17 16:00 Intake and Output: 06/01/17 06/02/17 18:59 06:59 Intake Total 400 Balance 400 - Medications Medications: Current Medications Acetaminophen (Tylenol 325mg Tab) 650 mg PO Q6 PRN PRN Reason: Pain, Mild (1-3) Cyanocobalamin (Vitamin B12 1000 Mcg Tab) 1,000 mcg PO DAILY [facility] Last Admin: 06/01/17 10:00 Dose: Not Given Ergocalciferol (Drisdol 50,000 Intl Units Cap) 1 cap PO QWK [facility] Ferrous Sulfate (Feosol) 325 mg PO BID [facility] Last Admin: 06/01/17 17:54 Dose: 325 mg Folic Acid (Folic Acid) 1 mg PO DAILY [facility] Last Admin: 06/01/17 10:00 Dose: Not Given Heparin Sodium (Porcine) (Heparin) 5,000 units SC Q8 [facility] Last Admin: 06/01/17 13:34 Dose: 5,000 units Hydralazine HCl (Apresoline) 10 mg IVP Q6H PRN PRN Reason: Systolic Blood Pressure Last Admin: 06/01/17 09:15 Dose: 10 mg Dextrose (Dextrose 5% In Water 1000 Ml) 1,000 mls @ 100 mls/hr IV .Q10H [facility] Last Admin: 06/01/17 06:04 Dose: 100 mls/hr Levetiracetam 500 mg/ Dextrose 105 mls @ 420 mls/hr IVPB Q12H [facility] Last Admin: 06/01/17 10:00 Dose: 420 mls/hr Insulin Human Regular (Novolin R) 0 unit SC ACHS KELVIN PRN Reason: Protocol Last Admin: 06/01/17 17:54 Dose: 4 unit Labetalol HCl (Trandate) 200 mg PO BID [facility] Last Admin: 06/01/17 17:55 Dose: 200 mg Lorazepam (Ativan) 1 mg IVP Q6H PRN PRN Reason: Seizure activity Last Admin: 06/01/17 10:12 Dose: 1 mg Losartan Potassium (Cozaar) 25 mg PO DAILY [facility] Last Admin: 06/01/17 10:00 Dose: Not Given Nifedipine (Procardia Xl) 60 mg PO DAILY [facility] Last Admin: 06/01/17 10:00 Dose: Not Given Ondansetron HCl (Zofran Inj) 4 mg IVP Q6 [facility] Last Admin: 06/01/17 17:55 Dose: 4 mg Pneumococcal Polyvalent Vaccine (Pneumovax 23 Vaccine) 0.5 ml IM .ONCE ONE Stop: 06/03/17 10:01 - Labs Labs: 06/01/17 07:12 06/01/17 07:12 - Constitutional Appears: Non-toxic, No Acute Distress - Head Exam Head Exam: ATRAUMATIC, NORMOCEPHALIC - ENT Exam ENT Exam: Mucous Membranes Moist - Respiratory Exam Respiratory Exam: Clear to Ausculation Bilateral, NORMAL BREATHING PATTERN. absent: Accessory Muscle Use, Respiratory Distress - Cardiovascular Exam Cardiovascular Exam: Tachycardia (sinus tach at 103 on tele), +S1, +S2 - GI/Abdominal Exam GI & Abdominal Exam: Guarding (voluntary ), Soft, Tenderness, Normal Bowel Sounds. absent: Distended, Firm, Rigid - Extremities Exam Extremities Exam: absent: Calf Tenderness, Pedal Edema - Neurological Exam Neurological Exam: Alert, Awake, Oriented x3 - Psychiatric Exam Psychiatric exam: Normal Affect, Normal Mood - Skin Skin Exam: Dry, Warm Assessment and Plan - Assessment and Plan (Free Text) Plan: (1) Nausea and vomiting Assessment and Plan: Likely secondary to gastroparesis Zofran 4mg IV Q6 prn - switched to scheduled D5W@100mls/hr Continue to monitor (2) Uncontrolled diabetes mellitus Assessment and Plan: A1c (02/2017): 6.9 A1c: 7.7 Hypoglycemia protocol ISS low Accuchecks Continue to monitor (3) Hypertensive urgency Assessment and Plan: At admission: 217/136 Patient states she did not take BP med today EKG: sinus tachycardia @106bpm Monitor on telemetry - sinus tach 103bpm Continued home medications: Nifedipine 60mg daily, Losartan 25mg daily, labetalol 200mg BID Hydralazine 10mg IV Q6 prn for SBP >160 (4) Seizure Assessment and Plan: Hx of seizures and pseudo-seizures Home medication: Keppra 250mg PO BID- held due to vomiting Started Keppra 500mg IV Q12 Ativan 1mg IV Q6 prn Seizure precautions Continue to monitor (5) Prophylactic measure Assessment and Plan: SCDs, Heparin 5000u SC Q8 Protonix 40mg PO daily Seizure precaution Telemetry Case discussed with Dr. Christine Cano Emeka PGY1
--- NOTE | 2017-06-01 21:05 | CARD ---
APPROVED REPORT EKG Measurement Heart [id number] <Conclusion> Sinus tachycardia Otherwise normal ECG
[2017-06-02] MEDS ORDERED: (Novolin R) Insulin Human Regular 100 units/ml vial SC ONE (05:51)
--- NOTE | 2017-06-02 05:55 | PCM.RRT ---
AGITATOR OPERATOR Nurses Assessment - Situation Date: 06/02/17 AGITATOR OPERATOR Location:: Med/Surg Room Number: 652 A - Respiratory Received Nebulizer Treatments: No Was the Patient Ventilated with Bag/Mask 100% O2?: No Secretions Suctioned?: No Was the Patient Intubated?: No Was the Patient Placed on a Ventilator?: No CPR started during AGITATOR OPERATOR?: No - Vital Signs Vital Signs: Rapid Response Vital Sign - Vital Signs at end of AGITATOR OPERATOR Vital Signs at end of AGITATOR OPERATOR: Rapid Response End Vital Sign - Recommendations Notifications: Attending Physician - Head Head Exam: NORMAL INSPECTION - Eyes Eye Exam: Normal appearance - Respiratory Exam Respiratory Exam: Clear to Ausculation Bilateral, NORMAL BREATHING PATTERN. absent: Rhonchi, Wheezes, Respiratory Distress - Cardiovascular Exam Cardiovascular Exam: Tachycardia, +S1, +S2 - GI/Abdominal Exam GI & Abdominal Exam: Soft, Tenderness (diffuse, chronic), Normal Bowel Sounds. absent: Distended - Neurological Exam Neurological Exam: Awake - Extremities Exam Extremities Exam: Normal Inspection Plan - Assessment of Findings&Treatment Plan AGITATOR OPERATOR was called at 5:42am for seizure activity. Per nurse, patient glucose was check minutes before and was >500. Nurse witness patient seizing, for which AGITATOR OPERATOR was called. When I walked into the room, patient was actively seizing, not responding. Patients extremities were limp, plantar flexion noted with babinski test during seizure. Seizing stopped, vitals were checked: BP 186/133, HR 125, O2 100%; glucose >500. Patient started to cry and stated she feels like her "sugars are very high". No tongue bite noted. Patient then vomits clear liquid twice. 10 units of insulin ordered and ativan 1mg IV given. Patient blood pressure rechecked, still elevated, and was given one dose of hydralazine 10mg IV.
[2017-06-02] MEDS: (Novolin R) Insulin Human Regular 100 units/ml vial SC SCH ×4 (07:52→21:43)
[2017-06-02] MEDS: NIFEdipine 60 mg ER Tab PO SCH (10:13)
[2017-06-02 11:56] LABS: BASO # 0.1 K/uL (0.0-0.2); BASO % 0.6 % (0.0-2.0); EOS # 0.1 K/uL (0.0-0.7); EOS % 1.1 % (0.0-4.0); HEMOGLOBIN 10.3 g/dL (11.0-16.0); LYMPH # 1.2 K/uL (1.0-4.3); LYMPH % 14.4 % (20.0-40.0); MEAN CELL VOLUME 84.2 fL (81.0-99.0); MEAN CORPUSCULAR HEMOGLOBIN 28.7 pg (27.0-31.0); MEAN CORPUSCULAR HGB CONC 34.1 g/dL (33.0-37.0); MEAN PLATELET VOLUME 10.4 fL (7.2-11.7); MONO # 0.3 K/uL (0.0-0.8); MONO % 3.5 % (0.0-10.0); NEUT # 6.9 K/uL (1.8-7.0); NEUT % 80.4 % (50.0-75.0); RBC 3.6 Mil/uL (3.80-5.20); RED CELL DISTRIBUTION WIDTH 14.2 % (11.5-14.5); WHITE BLOOD COUNT 8.6 K/uL (4.8-10.8)
[2017-06-02 12:14] LABS: ALBUMIN 2.9 g/dL (3.5-5.0); CALCIUM 8.5 mg/dl (8.6-10.4)
--- NOTE | 2017-06-02 13:58 | CP.PCM.PN ---
Subjective - Date & Time of Evaluation Date of Evaluation: 06/02/17 Time of Evaluation: 08:00 - Subjective Subjective: PGY1 Medicine Note for Dr. King Patient seen and examined at bedside this morning. Patient had SERVICE OFFICER called this morning for seizure activity. There was no post-ictal state upon completion of seizure. She was given 1 mg of Ativan. See SERVICE OFFICER note for complete details. Patient was sleeping comfortably in her bed upon walking into the room. She was easily awoken to be examined. At this time, patient states she is still extremely nauseous and in pain. She requested pain medicine and went back to sleep. Objective - Vital Signs/Intake and Output Vital Signs (last 24 hours): Temp Pulse Resp BP Pulse Ox 98.1 F 92 H 18 124/78 98 06/02/17 08:09 06/02/17 08:09 06/02/17 08:09 06/02/17 08:09 06/02/17 08:09 Intake and Output: 06/02/17 06/02/17 06:59 18:59 Intake Total 150 Output Total 20 Balance 130 - Medications Medications: Current Medications Acetaminophen (Tylenol 325mg Tab) 650 mg PO Q6 PRN PRN Reason: Pain, Mild (1-3) Acetaminophen (Tylenol 325mg Tab) 650 mg PO ONCE ONE Stop: 06/02/17 14:01 Cyanocobalamin (Vitamin B12 1000 Mcg Tab) 1,000 mcg PO DAILY [facility] Last Admin: 06/02/17 10:16 Dose: 1,000 mcg Ergocalciferol (Drisdol 50,000 Intl Units Cap) 1 cap PO QWK [facility] Ferrous Sulfate (Feosol) 325 mg PO BID [facility] Last Admin: 06/02/17 10:00 Dose: 325 mg Folic Acid (Folic Acid) 1 mg PO DAILY [facility] Last Admin: 06/02/17 10:13 Dose: 1 mg Heparin Sodium (Porcine) (Heparin) 5,000 units SC Q8 [facility] Last Admin: 06/02/17 06:04 Dose: 5,000 units Hydralazine HCl (Apresoline) 10 mg IVP Q6H PRN PRN Reason: Systolic Blood Pressure Last Admin: 06/02/17 06:33 Dose: 10 mg Dextrose (Dextrose 5% In Water 1000 Ml) 1,000 mls @ 100 mls/hr IV .Q10H [facility] Last Admin: 06/02/17 03:58 Dose: Not Given Levetiracetam 500 mg/ Dextrose 105 mls @ 420 mls/hr IVPB Q12H [facility] Last Admin: 06/02/17 10:13 Dose: 420 mls/hr Insulin Human Regular (Novolin R) 0 unit SC ACHS KELVIN PRN Reason: Protocol Last Admin: 06/02/17 12:26 Dose: 4 unit Labetalol HCl (Trandate) 200 mg PO BID [facility] Last Admin: 06/02/17 10:16 Dose: 200 mg Lorazepam (Ativan) 1 mg IVP Q6H PRN PRN Reason: Seizure activity Last Admin: 06/02/17 06:04 Dose: 1 mg Losartan Potassium (Cozaar) 25 mg PO DAILY [facility] Last Admin: 06/02/17 10:13 Dose: 25 mg Nifedipine (Procardia Xl) 60 mg PO DAILY [facility] Last Admin: 06/02/17 10:13 Dose: 60 mg Ondansetron HCl (Zofran Inj) 4 mg IVP Q6 [facility] Last Admin: 06/02/17 12:32 Dose: 4 mg Pneumococcal Polyvalent Vaccine (Pneumovax 23 Vaccine) 0.5 ml IM .ONCE ONE Stop: 06/03/17 10:01 - Labs Labs: 06/02/17 11:40 06/02/17 11:40 - Constitutional Appears: Non-toxic, No Acute Distress - Head Exam Head Exam: ATRAUMATIC, NORMOCEPHALIC - Eye Exam Eye Exam: EOMI, Normal appearance - ENT Exam ENT Exam: Mucous Membranes Moist - Respiratory Exam Respiratory Exam: Clear to Ausculation Bilateral, NORMAL BREATHING PATTERN. absent: Accessory Muscle Use, Rales, Rhonchi, Wheezes, Respiratory Distress - Cardiovascular Exam Cardiovascular Exam: REGULAR RHYTHM, +S1, +S2 - GI/Abdominal Exam GI & Abdominal Exam: Guarding (voluntary), Soft, Tenderness (diffuse), Normal Bowel Sounds. absent: Distended, Firm, Rigid - Extremities Exam Extremities Exam: absent: Calf Tenderness, Pedal Edema - Neurological Exam Neurological Exam: Alert, Awake, Oriented x3 - Psychiatric Exam Psychiatric exam: Normal Affect, Normal Mood - Skin Skin Exam: Dry, Warm Assessment and Plan - Assessment and Plan (Free Text) Plan: (1) Nausea and vomiting Assessment and Plan: Likely secondary to gastroparesis Zofran 4mg IV Q6 prn - switched to scheduled D5W@100mls/hr - hold Continue to monitor (2) Uncontrolled diabetes mellitus Assessment and Plan: A1c (02/2017): 6.9 A1c: 7.7 Hypoglycemia protocol ISS low Accuchecks Continue to monitor (3) Hypertensive urgency Assessment and Plan: At admission: 217/136 EKG: sinus tachycardia @106bpm Monitor on telemetry - sinus 88bpm Continued home medications: Nifedipine 60mg daily, Losartan 25mg daily, labetalol 200mg BID Hydralazine 10mg IV Q6 prn for SBP >160 (4) Seizure Assessment and Plan: Hx of seizures and pseudo-seizures Home medication: Keppra 250mg PO BID- held due to vomiting Keppra 500mg IV Q12 Ativan 1mg IV Q6 prn Seizure precautions Continue to monitor (5) Prophylactic measure Assessment and Plan: SCDs, Heparin 5000u SC Q8 Protonix 40mg PO daily Seizure precaution Telemetry Case discussed with Dr. Christine Cano Emeka PGY1
[2017-06-03] MEDS ORDERED: (Novolin R) Insulin Human Regular 100 units/ml vial SC ONE ×2 (03:25→18:00)
[2017-06-03 06:52] LABS: BASO # 0.1 K/uL (0.0-0.2); BASO % 0.7 % (0.0-2.0); EOS # 0.3 K/uL (0.0-0.7); EOS % 3.8 % (0.0-4.0); HEMOGLOBIN 9.9 g/dL (11.0-16.0); LYMPH # 2.5 K/uL (1.0-4.3); LYMPH % 33.8 % (20.0-40.0); MEAN CELL VOLUME 84.1 fL (81.0-99.0); MEAN CORPUSCULAR HEMOGLOBIN 28.2 pg (27.0-31.0); MEAN CORPUSCULAR HGB CONC 33.5 g/dL (33.0-37.0); MONO # 0.5 K/uL (0.0-0.8); MONO % 7.3 % (0.0-10.0); NEUT % 54.4 % (50.0-75.0); RBC 3.51 Mil/uL (3.80-5.20); RED CELL DISTRIBUTION WIDTH 14.4 % (11.5-14.5); WHITE BLOOD COUNT 7.4 K/uL (4.8-10.8)
[2017-06-03 07:03] LABS: ALBUMIN 2.6 g/dL (3.5-5.0); CALCIUM 7.7 mg/dl (8.6-10.4)
[2017-06-03] MEDS: (Novolin R) Insulin Human Regular 100 units/ml vial SC SCH ×4 (08:00→21:58)
[2017-06-03] MEDS ORDERED: Pneumococcal 23-Valent Vaccine IM ONE (10:00)
[2017-06-03] MEDS: Potassium Chloride 20 mEq ER Tab PO SCH (10:20)
[2017-06-03] MEDS: levETIRAcetam 500 MG in Sodium Chloride 0.9% 100 ML IVPB SCH ×2 (10:21→21:57)
[2017-06-03] MEDS: NIFEdipine 60 mg ER Tab PO SCH (10:22)
--- NOTE | 2017-06-03 11:24 | CP.PCM.PN ---
Subjective - Date & Time of Evaluation Date of Evaluation: 06/03/17 Time of Evaluation: 11:13 - Subjective Subjective: PGY1 Medicine Note for Dr. King Patient seen and examined this morning at bedside. No acute events overnight. Patient was sleeping comfortably Patient reports continued nausea. She states she attempted to drink some soup last night but quickly vomited. She says she wants to eat but is currently unable to. She states that she is not in any pain at this time. Denies fevers, chills, diarrhea, constipation, chest pain, abdominal pain, SOB, headaches, numbness or tingling. Objective - Vital Signs/Intake and Output Vital Signs (last 24 hours): Temp Pulse Resp BP Pulse Ox 98 F 81 18 130/80 97 06/03/17 08:00 06/03/17 08:00 06/03/17 08:00 06/03/17 08:00 06/03/17 08:00 Intake and Output: 06/03/17 06/03/17 06:59 18:59 Intake Total 150 Balance 150 - Medications Medications: Current Medications Acetaminophen (Tylenol 325mg Tab) 650 mg PO Q6 PRN PRN Reason: Pain, Mild (1-3) Cyanocobalamin (Vitamin B12 1000 Mcg Tab) 1,000 mcg PO DAILY [facility] Last Admin: 06/03/17 10:21 Dose: Not Given Ergocalciferol (Drisdol 50,000 Intl Units Cap) 1 cap PO QWK [facility] Ferrous Sulfate (Feosol) 325 mg PO BID [facility] Last Admin: 06/03/17 10:19 Dose: Not Given Folic Acid (Folic Acid) 1 mg PO DAILY [facility] Last Admin: 06/03/17 10:19 Dose: Not Given Heparin Sodium (Porcine) (Heparin) 5,000 units SC Q8 [facility] Last Admin: 06/03/17 05:56 Dose: 5,000 units Hydralazine HCl (Apresoline) 10 mg IVP Q6H PRN PRN Reason: Systolic Blood Pressure Last Admin: 06/03/17 00:19 Dose: 10 mg Dextrose (Dextrose 5% In Water 1000 Ml) 1,000 mls @ 100 mls/hr IV .Q10H [facility] Last Admin: 06/02/17 03:58 Dose: Not Given Levetiracetam 500 mg/ Sodium (Chloride) 105 mls @ 100 mls/hr IVPB Q12H [facility] Last Admin: 06/03/17 10:21 Dose: 100 mls/hr Insulin Human Regular (Novolin R) 0 unit SC ACHS [facility] PRN Reason: Protocol Last Admin: 06/03/17 08:00 Dose: 4 unit Labetalol HCl (Trandate) 200 mg PO BID [facility] Last Admin: 06/03/17 10:22 Dose: Not Given Lorazepam (Ativan) 1 mg IVP Q6H PRN PRN Reason: Seizure activity Last Admin: 06/03/17 10:18 Dose: 1 mg Losartan Potassium (Cozaar) 25 mg PO DAILY [facility] Last Admin: 06/03/17 10:19 Dose: Not Given Nifedipine (Procardia Xl) 60 mg PO DAILY [facility] Last Admin: 06/03/17 10:22 Dose: Not Given Ondansetron HCl (Zofran Inj) 4 mg IVP Q6 [facility] Last Admin: 06/03/17 05:56 Dose: 4 mg Potassium Chloride (K-Dur 20 Meq Er Tab) 40 meq PO DAILY [facility] Last Admin: 06/03/17 10:20 Dose: Not Given - Labs Labs: 06/03/17 06:30 06/03/17 06:30 - Constitutional Appears: Non-toxic, No Acute Distress - Head Exam Head Exam: ATRAUMATIC, NORMOCEPHALIC - Eye Exam Eye Exam: EOMI, Normal appearance Pupil Exam: NORMAL ACCOMODATION - ENT Exam ENT Exam: Mucous Membranes Moist - Respiratory Exam Respiratory Exam: NORMAL BREATHING PATTERN. absent: Accessory Muscle Use, Respiratory Distress - Cardiovascular Exam Cardiovascular Exam: REGULAR RHYTHM, +S1, +S2 - GI/Abdominal Exam GI & Abdominal Exam: Soft, Tenderness (mild tenderness in LUQ), Normal Bowel Sounds. absent: Distended, Firm, Guarding, Rigid - Extremities Exam Extremities Exam: absent: Calf Tenderness, Pedal Edema - Neurological Exam Neurological Exam: Alert, Awake, Oriented x3 - Psychiatric Exam Psychiatric exam: Normal Affect, Normal Mood - Skin Skin Exam: Dry, Warm Assessment and Plan - Assessment and Plan (Free Text) Plan: (1) Nausea and vomiting Likely secondary to gastroparesis Zofran 4mg IV Q6 [facility] Dilaudid 1mg IV Q8h prn - if patient vomits, pain medicine to be discontinued. D5W@100mls/hr - hold Continue to monitor (2) Uncontrolled diabetes mellitus A1c (02/2017): 6.9 A1c: 7.7 Hypoglycemia protocol ISS low Accuchecks Continue to monitor (3) Hypertensive urgency At admission: 217/136 EKG: sinus tachycardia @106bpm Monitor on telemetry - sinus 88bpm Continued home medications: Nifedipine 60mg daily, Losartan 25mg daily, labetalol 200mg PO BID Hydralazine 10mg IV Q6 prn for SBP >160 (4) Seizure hx of seizures and pseudo-seizures Home medication: Keppra 250mg PO BID- held due to vomiting Keppra 500mg IV Q12 Ativan 1mg IV Q6 prn Seizure precautions Continue to monitor (5) Prophylactic measure SCDs, Heparin 5000u SC Q8 Protonix 40mg PO daily Folic Acid 1mg PO daily Ferrous Sulfate 325mg PO BID Vitamin B12 1000mcg PO daily Seizure precaution Telemetry K+ 3.3 - Given 40meq K today Case discussed with Dr. Christine Cano Emeka PGY1
[2017-06-03] MEDS: HYDROmorphone 1 mg/ml ISec IVP PRN (18:03)
[2017-06-04] MEDS ORDERED: Morphine 4 MG/ML VIAL ONE (06:25)
[2017-06-04 06:27] LABS: BASO # 0.1 K/uL (0.0-0.2); EOS # 0.2 K/uL (0.0-0.7); EOS % 3.4 % (0.0-4.0); HEMOGLOBIN 10.1 g/dL (11.0-16.0); LYMPH # 2.9 K/uL (1.0-4.3); LYMPH % 39.9 % (20.0-40.0); MEAN CELL VOLUME 85.1 fL (81.0-99.0); MEAN CORPUSCULAR HEMOGLOBIN 28.3 pg (27.0-31.0); MEAN CORPUSCULAR HGB CONC 33.2 g/dL (33.0-37.0); MEAN PLATELET VOLUME 9.8 fL (7.2-11.7); MONO # 0.5 K/uL (0.0-0.8); MONO % 7.5 % (0.0-10.0); NEUT # 3.5 K/uL (1.8-7.0); NEUT % 48.2 % (50.0-75.0); RBC 3.58 Mil/uL (3.80-5.20); RED CELL DISTRIBUTION WIDTH 14.8 % (11.5-14.5); WHITE BLOOD COUNT 7.2 K/uL (4.8-10.8)
[2017-06-04 06:42] LABS: ALB/GLOB RATIO 1.1 (1.0-2.1); ALBUMIN 2.7 g/dL (3.5-5.0); CALCIUM 7.6 mg/dl (8.6-10.4)
[2017-06-04] MEDS: (Novolin R) Insulin Human Regular 100 units/ml vial SC SCH ×4 (07:39→22:41)
[2017-06-04] MEDS: Potassium Chloride 20 mEq ER Tab PO SCH (10:30)
[2017-06-04] MEDS: NIFEdipine 60 mg ER Tab PO SCH (10:31)
[2017-06-04] MEDS: levETIRAcetam 500 MG in Sodium Chloride 0.9% 100 ML IVPB SCH ×2 (10:33→21:26)
[2017-06-04] MEDS: HYDROmorphone 1 mg/ml ISec IVP PRN (10:48)
--- NOTE | 2017-06-04 14:41 | CP.PCM.PN ---
Subjective - Date & Time of Evaluation Date of Evaluation: 06/04/17 Time of Evaluation: 08:30 - Subjective Subjective: PGY1 Medicine Note for Dr. King Patient seen and examined at bedside this morning. No acute events overnight. Patient states she is still nauseous and requesting a different medication for the nausea. She has been able to tolerate some liquids without vomiting. Patient states she has not had a bowel movement in many days, but this is normal for her. Denies fevers, chills, diarrhea, constipation, chest pain, abdominal pain, SOB, headaches, numbness or tingling. Objective - Vital Signs/Intake and Output Vital Signs (last 24 hours): Temp Pulse Resp BP Pulse Ox 98.7 F 86 18 116/73 97 06/04/17 08:54 06/04/17 08:54 06/04/17 08:54 06/04/17 08:54 06/04/17 08:54 Intake and Output: 06/04/17 06/04/17 06:59 18:59 Intake Total 0 Output Total 60 Balance -60 - Medications Medications: Current Medications Acetaminophen (Tylenol 325mg Tab) 650 mg PO Q6 PRN PRN Reason: Pain, Mild (1-3) Last Admin: 06/03/17 13:55 Dose: 650 mg Cyanocobalamin (Vitamin B12 1000 Mcg Tab) 1,000 mcg PO DAILY [facility] Last Admin: 06/04/17 10:31 Dose: 1,000 mcg Ergocalciferol (Drisdol 50,000 Intl Units Cap) 1 cap PO QWK [facility] Ferrous Sulfate (Feosol) 325 mg PO BID [facility] Last Admin: 06/04/17 10:31 Dose: 325 mg Folic Acid (Folic Acid) 1 mg PO DAILY [facility] Last Admin: 06/04/17 10:31 Dose: 1 mg Heparin Sodium (Porcine) (Heparin) 5,000 units SC Q8 [facility] Last Admin: 06/04/17 13:57 Dose: 5,000 units Hydralazine HCl (Apresoline) 10 mg IVP Q6H PRN PRN Reason: Systolic Blood Pressure Last Admin: 06/03/17 00:19 Dose: 10 mg Hydromorphone HCl (Dilaudid) 1 mg IVP Q8H PRN PRN Reason: Pain, severe (8-10) Dextrose (Dextrose 5% In Water 1000 Ml) 1,000 mls @ 100 mls/hr IV .Q10H [facility] Last Admin: 06/02/17 03:58 Dose: Not Given Levetiracetam 500 mg/ Sodium (Chloride) 105 mls @ 100 mls/hr IVPB Q12H [facility] Last Admin: 06/04/17 10:33 Dose: 100 mls/hr Insulin Human Regular (Novolin R) 0 unit SC ACHS [facility] PRN Reason: Protocol Last Admin: 06/04/17 12:02 Dose: 5 unit Labetalol HCl (Trandate) 200 mg PO BID [facility] Last Admin: 06/04/17 10:31 Dose: 200 mg Lorazepam (Ativan) 1 mg IVP Q6H PRN PRN Reason: Seizure activity Last Admin: 06/04/17 06:30 Dose: 1 mg Losartan Potassium (Cozaar) 25 mg PO DAILY [facility] Last Admin: 06/04/17 10:30 Dose: 25 mg Nifedipine (Procardia Xl) 60 mg PO DAILY [facility] Last Admin: 06/04/17 10:31 Dose: 60 mg Ondansetron HCl (Zofran Inj) 4 mg IVP Q6 [facility] Last Admin: 06/04/17 12:20 Dose: 4 mg Potassium Chloride (K-Dur 20 Meq Er Tab) 40 meq PO DAILY [facility] Last Admin: 06/04/17 10:30 Dose: 40 meq - Labs Labs: 06/04/17 06:16 06/04/17 06:16 - Constitutional Appears: Non-toxic, No Acute Distress - Head Exam Head Exam: ATRAUMATIC, NORMOCEPHALIC - Eye Exam Eye Exam: EOMI, Normal appearance - ENT Exam ENT Exam: Mucous Membranes Moist - Respiratory Exam Respiratory Exam: Clear to Ausculation Bilateral, NORMAL BREATHING PATTERN. absent: Accessory Muscle Use, Rales, Wheezes, Respiratory Distress - Cardiovascular Exam Cardiovascular Exam: REGULAR RHYTHM, +S1, +S2 - GI/Abdominal Exam GI & Abdominal Exam: Soft, Tenderness (mild, diffuse), Normal Bowel Sounds. absent: Distended, Firm, Guarding, Rigid - Extremities Exam Extremities Exam: absent: Calf Tenderness, Pedal Edema - Neurological Exam Neurological Exam: Alert, Awake, Oriented x3 - Psychiatric Exam Psychiatric exam: Normal Affect, Normal Mood - Skin Skin Exam: Dry, Warm Assessment and Plan - Assessment and Plan (Free Text) Plan: (1) Nausea and vomiting secondary to gastroparesis Zofran 4mg IV Q6 jossue - discontinued Erythromycin 250mg PO q8h Compazine 5mg PO q6h Dilaudid 1mg IV Q8h prn - if patient vomits, pain medicine to be discontinued. D5W@100mls/hr - hold Continue to monitor (2) Uncontrolled diabetes mellitus A1c (02/2017): 6.9 A1c: 7.7 Hypoglycemia protocol ISS low Accuchecks Continue to monitor (3) Hypertensive urgency resolved On admission: 217/136 EKG: sinus tachycardia @106bpm Monitor on telemetry - sinus 88bpm Continued home medications: Nifedipine 60mg daily, Losartan 25mg daily, labetalol 200mg PO BID Hydralazine 10mg IV Q6 prn for SBP >160 (4) Seizure hx of seizures and pseudo-seizures Home medication: Keppra 250mg PO BID- held due to vomiting Keppra 500mg IV Q12 Ativan 1mg IV Q6 prn Seizure precautions Continue to monitor (5) Prophylactic measure SCDs, Heparin 5000u SC Q8 Protonix 40mg PO daily Folic Acid 1mg PO daily Ferrous Sulfate 325mg PO BID Vitamin B12 1000mcg PO daily Seizure precaution Telemetry K+ 3.[address] Christine Cano Emeka PGY1
[2017-06-04] MEDS: HYDROmorphone 1 mg/5ml IVP PRN (18:47)
[2017-06-05] MEDS ORDERED: (Novolin R) Insulin Human Regular 100 units/ml vial SC ONE (07:15)
[2017-06-05] MEDS: Potassium Chloride 20 mEq ER Tab PO SCH (11:00)
[2017-06-05] MEDS: NIFEdipine 60 mg ER Tab PO SCH (11:00)
[2017-06-05] MEDS: levETIRAcetam 500 MG in Sodium Chloride 0.9% 100 ML IVPB SCH ×2 (11:00→21:43)
[2017-06-05 11:15] LABS: BASO # 0.1 K/uL (0.0-0.2); HEMOGLOBIN 9.9 g/dL (11.0-16.0); LYMPH # 0.8 K/uL (1.0-4.3); MEAN CORPUSCULAR HEMOGLOBIN 28.7 pg (27.0-31.0); MEAN CORPUSCULAR HGB CONC 31.7 g/dL (33.0-37.0); MEAN PLATELET VOLUME 11.4 fL (7.2-11.7); MONO # 0.2 K/uL (0.0-0.8); MONO % 3.1 % (0.0-10.0); NEUT # 6.5 K/uL (1.8-7.0); NEUT % 85.9 % (50.0-75.0); RBC 3.44 Mil/uL (3.80-5.20); RED CELL DISTRIBUTION WIDTH 14.8 % (11.5-14.5); WHITE BLOOD COUNT 7.6 K/uL (4.8-10.8)
[2017-06-05 11:30] LABS: MEAN CELL VOLUME 90.7 fL (81.0-99.0)
[2017-06-05] MEDS ORDERED: (Novolin R) Insulin Human Regular 100 units/ml vial SC SCH (11:30)
[2017-06-05] MEDS: HYDROmorphone 1 mg/5ml IVP PRN ×2 (12:00→21:42)
[2017-06-05] MEDS: (Novolin R) Insulin Human Regular 100 units/ml vial SC SCH ×3 (12:06→21:42)
[2017-06-05 12:09] LABS: ALBUMIN 2.9 g/dL (3.5-5.0); CALCIUM 7.9 mg/dl (8.6-10.4)
[2017-06-05 14:21] LABS: ABG ALLEN TEST POS; ARTERIAL BLOOD GAS HCO3 21.3 mmol/L (21-28); ARTERIAL BLOOD GAS HEMOGLOBIN 9.6 g/dL (11.7-17.4); ARTERIAL BLOOD GAS O2 SAT 93.6 % (95-98); ARTERIAL BLOOD GAS PCO2 40 mm/Hg (35-45); ARTERIAL BLOOD GAS PH 7.33 (7.35-7.45); ARTERIAL BLOOD GAS PO2 61 mm/Hg (80-100); ARTERIAL BLOOD GAS TCO2 22.3 mmol/L (22-28)
--- NOTE | 2017-06-05 16:11 | CP.PCM.PN ---
Subjective - Date & Time of Evaluation Date of Evaluation: 06/05/17 Time of Evaluation: 08:15 - Subjective Subjective: PGY1 Medicine Note for Dr. King Patient seen and examined at bedside this morning. Patient states she is feeling slightly nauseous although she would like to advance her diet. She requests an increase in her insulin regiment because she feels her blood glucose levels have been too high and she believes this is what is making her feel nauseous. She has not vomiting in a couple days. Denies fevers, chills, diarrhea, constipation, chest pain, abdominal pain, SOB, headaches, numbness or tingling. Objective - Vital Signs/Intake and Output Vital Signs (last 24 hours): Temp Pulse Resp BP Pulse Ox 98.5 F 100 H 20 132/78 100 06/05/17 08:31 06/05/17 08:31 06/05/17 08:31 06/05/17 08:31 06/05/17 08:31 Intake and Output: 06/05/17 06/05/17 06:59 18:59 Intake Total 100 550 Balance 100 550 - Medications Medications: Current Medications Acetaminophen (Tylenol 325mg Tab) 650 mg PO Q6 PRN PRN Reason: Pain, Mild (1-3) Last Admin: 06/03/17 13:55 Dose: 650 mg Cyanocobalamin (Vitamin B12 1000 Mcg Tab) 1,000 mcg PO DAILY [facility] Last Admin: 06/05/17 11:00 Dose: 1,000 mcg Ergocalciferol (Drisdol 50,000 Intl Units Cap) 1 cap PO QWK [facility] Erythromycin (Erythromycin) 250 mg PO Q8 [facility] Last Admin: 06/05/17 13:11 Dose: 250 mg Ferrous Sulfate (Feosol) 325 mg PO BID [facility] Last Admin: 06/05/17 10:00 Dose: 325 mg Folic Acid (Folic Acid) 1 mg PO DAILY [facility] Last Admin: 06/05/17 11:00 Dose: 1 mg Heparin Sodium (Porcine) (Heparin) 5,000 units SC Q8 [facility] Last Admin: 06/05/17 13:23 Dose: 5,000 units Hydralazine HCl (Apresoline) 10 mg IVP Q6H PRN PRN Reason: Systolic Blood Pressure Last Admin: 06/03/17 00:19 Dose: 10 mg Hydromorphone HCl (Dilaudid) 1 mg IVP Q8H PRN PRN Reason: Pain, severe (8-10) Last Admin: 06/05/17 12:00 Dose: 1 mg Dextrose (Dextrose 5% In Water 1000 Ml) 1,000 mls @ 100 mls/hr IV .Q10H [facility] Last Admin: 06/02/17 03:58 Dose: Not Given Levetiracetam 500 mg/ Sodium (Chloride) 105 mls @ 100 mls/hr IVPB Q12H [facility] Last Admin: 06/05/17 11:00 Dose: 100 mls/hr Insulin Human Regular (Novolin R) 0 unit SC ACHS [facility] PRN Reason: Protocol Last Admin: 06/05/17 12:06 Dose: 12 unit Labetalol HCl (Trandate) 200 mg PO BID [facility] Last Admin: 06/05/17 11:00 Dose: 200 mg Lorazepam (Ativan) 1 mg IVP Q6H PRN PRN Reason: Seizure activity Last Admin: 06/05/17 07:29 Dose: 1 mg Losartan Potassium (Cozaar) 25 mg PO DAILY [facility] Last Admin: 06/05/17 11:00 Dose: 25 mg Nifedipine (Procardia Xl) 60 mg PO DAILY [facility] Last Admin: 06/05/17 11:00 Dose: 60 mg Potassium Chloride (K-Dur 20 Meq Er Tab) 40 meq PO DAILY [facility] Last Admin: 06/05/17 11:00 Dose: 40 meq Prochlorperazine (Compazine Tab) 5 mg PO Q6H [facility] Last Admin: 06/05/17 13:26 Dose: Not Given - Labs Labs: 06/05/17 11:08 06/05/17 11:08 - Constitutional Appears: Non-toxic, No Acute Distress - Head Exam Head Exam: ATRAUMATIC, NORMOCEPHALIC - Eye Exam Eye Exam: EOMI, Normal appearance - ENT Exam ENT Exam: Mucous Membranes Moist - Respiratory Exam Respiratory Exam: Clear to Ausculation Bilateral, NORMAL BREATHING PATTERN. absent: Accessory Muscle Use, Rales, Rhonchi, Wheezes, Respiratory Distress - Cardiovascular Exam Cardiovascular Exam: REGULAR RHYTHM, +S1, +S2 - GI/Abdominal Exam GI & Abdominal Exam: Soft, Normal Bowel Sounds. absent: Distended, Firm, Guarding, Rigid, Tenderness - Extremities Exam Extremities Exam: absent: Calf Tenderness, Pedal Edema - Neurological Exam Neurological Exam: Alert, Awake, Oriented x3 - Psychiatric Exam Psychiatric exam: Normal Affect, Normal Mood - Skin Skin Exam: Dry, Warm Assessment and Plan - Assessment and Plan (Free Text) Plan: (1) Nausea and vomiting secondary to gastroparesis Erythromycin 250mg PO q8h Compazine 5mg PO q6h Dilaudid 1mg IV Q8h prn - if patient vomits, pain medicine to be discontinued. Continue to monitor (2) Uncontrolled diabetes mellitus A1c (02/2017): 6.9 A1c: 7.7 Patient had blood glucose level of 1015 on 06/05/17 - f/u repeat BMP ABG 06/05 - pCO2 40; pO2 61; HCO3 21.3; pH 7.33 Hypoglycemia protocol ISS low - increased to high dose Accuchecks Continue to monitor (3) Hypertensive urgency resolved On admission: 217/136 EKG: sinus tachycardia @106bpm Monitor on telemetry - sinus 88bpm Continued home medications: Nifedipine 60mg daily, Losartan 25mg daily, labetalol 200mg PO BID Hydralazine 10mg IV Q6 prn for SBP >160 (4) Seizure hx of seizures and pseudo-seizures Home medication: Keppra 250mg PO BID- held due to vomiting Keppra 500mg IV Q12 Ativan 1mg IV Q6 prn Seizure precautions Continue to monitor (5) Prophylactic measure SCDs, Heparin 5000u SC Q8 Protonix 40mg PO daily Folic Acid 1mg PO daily Ferrous Sulfate 325mg PO BID Vitamin B12 1000mcg PO daily Seizure precaution Telemetry K+ 5.2 Soft, Consistent Carbohydrate Diet, advance as tolerated Case discussed with Dr. Christine Cano Emeka PGY1
[2017-06-05 17:29] LABS: CALCIUM 8.7 mg/dl (8.6-10.4)
[2017-06-06] MEDS: (Novolin R) Insulin Human Regular 100 units/ml vial SC SCH ×4 (06:48→21:46)
[2017-06-06] MEDS: NIFEdipine 60 mg ER Tab PO SCH ×2 (10:02→10:06)
[2017-06-06] MEDS: levETIRAcetam 500 MG in Sodium Chloride 0.9% 100 ML IVPB SCH ×3 (10:08→21:43)
[2017-06-06] MEDS: HYDROmorphone 1 mg/5ml IVP PRN (11:14)
[2017-06-06 11:48] LABS: BASO # 0.1 K/uL (0.0-0.2); BASO % 1.3 % (0.0-2.0); EOS % 0.2 % (0.0-4.0); HEMOGLOBIN 10.1 g/dL (11.0-16.0); LYMPH % 9.8 % (20.0-40.0); MEAN CORPUSCULAR HEMOGLOBIN 28.8 pg (27.0-31.0); MEAN CORPUSCULAR HGB CONC 32.7 g/dL (33.0-37.0); MEAN PLATELET VOLUME 11.4 fL (7.2-11.7); MONO # 0.6 K/uL (0.0-0.8); MONO % 5.9 % (0.0-10.0); NEUT # 8.1 K/uL (1.8-7.0); NEUT % 82.8 % (50.0-75.0); PLATELET COUNT 256 K/uL (130-400); RBC 3.49 Mil/uL (3.80-5.20); RED CELL DISTRIBUTION WIDTH 14.3 % (11.5-14.5); WHITE BLOOD COUNT 9.8 K/uL (4.8-10.8)
--- NOTE | 2017-06-06 12:15 | CP.PCM.PN ---
Subjective - Date & Time of Evaluation Date of Evaluation: 06/06/17 Time of Evaluation: 08:50 - Subjective Subjective: Patient seen and examined at bedside. No acute events overnight. Patient resting comfortably in bed with no new complaints at this time. Patient had very high glucose yesterday and when I talked to her about this she says its because she needs her lantus. Patient gets 15 units of lantus at night when at home. She admits to some nausea but has not vomited since yesterday. She denies dizziness, blurry vision, chest pain, SOB, abdominal pain, vomiting, diarrhea, constipation, calf pain, LE swelling. Objective - Vital Signs/Intake and Output Vital Signs (last 24 hours): Temp Pulse Resp BP Pulse Ox 98.8 F 79 18 105/66 97 06/06/17 08:31 06/06/17 08:31 06/06/17 08:31 06/06/17 08:31 06/06/17 08:31 - Medications Medications: Current Medications Acetaminophen (Tylenol 325mg Tab) 650 mg PO Q6 PRN PRN Reason: Pain, Mild (1-3) Last Admin: 06/03/17 13:55 Dose: 650 mg Cyanocobalamin (Vitamin B12 1000 Mcg Tab) 1,000 mcg PO DAILY [facility] Last Admin: 06/06/17 10:02 Dose: 1,000 mcg Ergocalciferol (Drisdol 50,000 Intl Units Cap) 1 cap PO QWK [facility] Erythromycin (Erythromycin) 250 mg PO Q8 [facility] Last Admin: 06/06/17 06:47 Dose: Not Given Ferrous Sulfate (Feosol) 325 mg PO BID [facility] Last Admin: 06/06/17 10:02 Dose: 325 mg Folic Acid (Folic Acid) 1 mg PO DAILY [facility] Last Admin: 06/06/17 10:01 Dose: 1 mg Hydralazine HCl (Apresoline) 10 mg IVP Q6H PRN PRN Reason: Systolic Blood Pressure Last Admin: 06/03/17 00:19 Dose: 10 mg Hydromorphone HCl (Dilaudid) 1 mg IVP Q8H PRN PRN Reason: Pain, severe (8-10) Last Admin: 06/06/17 11:14 Dose: 1 mg Dextrose (Dextrose 5% In Water 1000 Ml) 1,000 mls @ 100 mls/hr IV .Q10H [facility] Last Admin: 06/02/17 03:58 Dose: Not Given Levetiracetam 500 mg/ Sodium (Chloride) 105 mls @ 100 mls/hr IVPB Q12H [facility] Last Admin: 06/06/17 10:08 Dose: 100 mls/hr Insulin Glargine (Lantus) 15 unit SC HS [facility] Insulin Human Regular (Novolin R) 0 unit SC ACHS [facility] PRN Reason: Protocol Last Admin: 06/06/17 06:48 Dose: 12 unit Labetalol HCl (Trandate) 200 mg PO BID [facility] Last Admin: 06/06/17 10:07 Dose: Not Given Lorazepam (Ativan) 1 mg IVP Q6H PRN PRN Reason: Seizure activity Last Admin: 06/06/17 06:52 Dose: 1 mg Losartan Potassium (Cozaar) 25 mg PO DAILY [facility] Last Admin: 06/06/17 10:07 Dose: Not Given Nifedipine (Procardia Xl) 60 mg PO DAILY [facility] Last Admin: 06/06/17 10:06 Dose: Not Given Potassium Chloride (K-Dur 20 Meq Er Tab) 40 meq PO DAILY [facility] Last Admin: 06/05/17 11:00 Dose: 40 meq Prochlorperazine (Compazine Tab) 5 mg PO Q6H [facility] Last Admin: 06/06/17 08:28 Dose: 5 mg - Labs Labs: 06/06/17 11:39 06/05/17 16:56 - Constitutional Appears: Non-toxic, No Acute Distress - Head Exam Head Exam: ATRAUMATIC, NORMAL INSPECTION, NORMOCEPHALIC - Eye Exam Eye Exam: EOMI, Normal appearance, PERRL - ENT Exam ENT Exam: Mucous Membranes Moist - Neck Exam Neck Exam: Normal Inspection - Respiratory Exam Respiratory Exam: Clear to Ausculation Bilateral, NORMAL BREATHING PATTERN. absent: Accessory Muscle Use, Rales, Rhonchi, Wheezes, Respiratory Distress - Cardiovascular Exam Cardiovascular Exam: RRR, +S1, +S2. absent: Gallop, Rubs, Murmur - GI/Abdominal Exam GI & Abdominal Exam: Soft, Normal Bowel Sounds. absent: Distended, Tenderness - Extremities Exam Extremities Exam: Normal Inspection. absent: Calf Tenderness, Pedal Edema - Neurological Exam Neurological Exam: Alert, Awake, Oriented x3 - Psychiatric Exam Psychiatric exam: Normal Affect, Normal Mood - Skin Skin Exam: Dry, Intact, Normal Color, Warm Assessment and Plan - Assessment and Plan (Free Text) Plan: Nausea and vomiting secondary to gastroparesis Erythromycin 250mg PO q8h Compazine 5mg PO q6h Dilaudid 1mg IV Q8h prn discontinued 06/06/17 Continue to monitor Hyponatremia Uncontrolled diabetes mellitus A1c (02/2017): 6.9 A1c: 7.7 Patient had blood glucose level of 1015 on 06/05/17 - f/u repeat BMP ABG 06/05 - pCO2 40; pO2 61; HCO3 21.3; pH 7.33 Hypoglycemia protocol ISS low - increased to high dose on 06/05 Lantus 15 units HS added 06/06/17 (home medication) Accuchecks Continue to monitor Hypertensive urgency resolved On admission: 217/136 EKG: sinus tachycardia @106bpm Monitor on telemetry - sinus 88bpm Continued home medications: Nifedipine 60mg daily, Losartan 25mg daily, labetalol 200mg PO BID Hydralazine 10mg IV Q6 prn for SBP >160 Seizure hx of seizures and pseudo-seizures Home medication: Keppra 250mg PO BID- held due to vomiting Keppra 500mg IV Q12 Ativan 1mg IV Q6 prn Seizure precautions Continue to monitor Prophylactic measure SCDs, Heparin 5000u SC Q8 Protonix 40mg PO daily Folic Acid 1mg PO daily Ferrous Sulfate 325mg PO BID Vitamin B12 1000mcg PO daily Seizure precaution Telemetry K+ 5.2 Soft, Consistent Carbohydrate Diet, advance as tolerated
[2017-06-06 12:38] LABS: MONOCYTE 6 % (0-10); TOTAL CELLS COUNTED 100
[2017-06-06 12:39] LABS: ANISOCYTOSIS SLIGHT; BANDS 1 % (0-2); LYMPHOCYTE 12 % (20-40); NEUTROPHIL 81 % (50-75); PLATELET ESTIMATE NORMAL (NORMAL); POIKILOCYTOSIS SLIGHT
[2017-06-06 12:49] LABS: ALB/GLOB RATIO 1.2 (1.0-2.1); ALBUMIN 2.7 g/dL (3.5-5.0)
[2017-06-06] MEDS: Potassium Chloride 20 mEq ER Tab PO SCH (13:40)
[2017-06-06] MEDS: Sodium Chloride 0.9% 1,000 ML IV SCH (16:15)
[2017-06-06] MEDS: (Lantus) Insulin Glargine, Recombinant SC SCH (21:51)
[2017-06-07] MEDS ORDERED: Tramadol 25 mg PO ONE (03:08)
[2017-06-07] MEDS: Sodium Chloride 0.9% 1,000 ML IV SCH ×2 (05:41→18:41)
[2017-06-07] MEDS: (Novolin R) Insulin Human Regular 100 units/ml vial SC SCH ×4 (08:10→22:20)
[2017-06-07 08:26] LABS: BASO # 0.1 K/uL (0.0-0.2); BASO % 1.2 % (0.0-2.0); EOS # 0.2 K/uL (0.0-0.7); EOS % 3.2 % (0.0-4.0); HEMOGLOBIN 9.7 g/dL (11.0-16.0); LYMPH # 1.8 K/uL (1.0-4.3); LYMPH % 28.3 % (20.0-40.0); MEAN CORPUSCULAR HEMOGLOBIN 28.5 pg (27.0-31.0); MEAN CORPUSCULAR HGB CONC 33.8 g/dL (33.0-37.0); MEAN PLATELET VOLUME 11.5 fL (7.2-11.7); MONO # 0.5 K/uL (0.0-0.8); MONO % 7.9 % (0.0-10.0); NEUT # 3.8 K/uL (1.8-7.0); NEUT % 59.4 % (50.0-75.0); RBC 3.41 Mil/uL (3.80-5.20); RED CELL DISTRIBUTION WIDTH 14.1 % (11.5-14.5); WHITE BLOOD COUNT 6.3 K/uL (4.8-10.8)
[2017-06-07 08:34] LABS: MEAN CELL VOLUME 84.2 fL (81.0-99.0)
[2017-06-07 08:46] LABS: ALB/GLOB RATIO 0.9 (1.0-2.1); ALBUMIN 2.6 g/dL (3.5-5.0); CALCIUM 8.1 mg/dl (8.6-10.4)
[2017-06-07] MEDS: Potassium Chloride 20 mEq ER Tab PO SCH (09:48)
[2017-06-07] MEDS: NIFEdipine 60 mg ER Tab PO SCH (09:50)
[2017-06-07] MEDS: levETIRAcetam 500 MG in Sodium Chloride 0.9% 100 ML IVPB SCH ×2 (09:53→22:19)
[2017-06-07] MEDS ORDERED: Ergocalciferol 50,000 Intl Units Cap PO SCH (10:00)
--- NOTE | 2017-06-07 11:11 | CP.PCM.PN ---
Subjective - Date & Time of Evaluation Date of Evaluation: 06/07/17 Time of Evaluation: 08:30 - Subjective Subjective: Patient seen and examined at bedside. No acute events overnight. Patient resting comfortably in bed with no new complaints at this time. Patient still complaining of mild abdominal pain and nausea, but no longer vomiting. She denies dizziness, blurry vision, chest pain, SOB, abdominal pain, vomiting, diarrhea, constipation, calf pain, LE swelling. Objective - Vital Signs/Intake and Output Vital Signs (last 24 hours): Temp Pulse Resp BP Pulse Ox 98.3 F 88 20 129/80 99 06/07/17 08:00 06/07/17 08:54 06/07/17 08:00 06/07/17 08:00 06/07/17 08:00 - Medications Medications: Current Medications Acetaminophen (Tylenol 325mg Tab) 650 mg PO Q6 PRN PRN Reason: Pain, Mild (1-3) Last Admin: 06/03/17 13:55 Dose: 650 mg Cyanocobalamin (Vitamin B12 1000 Mcg Tab) 1,000 mcg PO DAILY [facility] Last Admin: 06/07/17 09:50 Dose: 1,000 mcg Ergocalciferol (Drisdol 50,000 Intl Units Cap) 1 cap PO QWK [facility] Last Admin: 06/07/17 09:51 Dose: 1 cap Erythromycin (Erythromycin) 250 mg PO Q8 [facility] Last Admin: 06/07/17 08:15 Dose: Not Given Ferrous Sulfate (Feosol) 325 mg PO BID [facility] Last Admin: 06/07/17 09:50 Dose: 325 mg Folic Acid (Folic Acid) 1 mg PO DAILY [facility] Last Admin: 06/07/17 09:50 Dose: 1 mg Hydralazine HCl (Apresoline) 10 mg IVP Q6H PRN PRN Reason: Systolic Blood Pressure Last Admin: 06/03/17 00:19 Dose: 10 mg Dextrose (Dextrose 5% In Water 1000 Ml) 1,000 mls @ 100 mls/hr IV .Q10H [facility] Last Admin: 06/02/17 03:58 Dose: Not Given Levetiracetam 500 mg/ Sodium (Chloride) 105 mls @ 100 mls/hr IVPB Q12H [facility] Last Admin: 06/07/17 09:53 Dose: 100 mls/hr Sodium Chloride (Sodium Chloride 0.9%) 1,000 mls @ 75 mls/hr IV .[id number] [facility] Last Admin: 06/07/17 05:41 Dose: Not Given Insulin Glargine (Lantus) 15 unit SC HS [facility] Last Admin: 06/06/17 21:51 Dose: 15 units Insulin Human Regular (Novolin R) 0 unit SC ACHS [facility] PRN Reason: Protocol Last Admin: 06/07/17 08:10 Dose: 6 unit Labetalol HCl (Trandate) 200 mg PO BID [facility] Last Admin: 06/07/17 09:51 Dose: Not Given Lorazepam (Ativan) 1 mg IVP Q6H PRN PRN Reason: Seizure activity Last Admin: 06/07/17 09:47 Dose: 1 mg Losartan Potassium (Cozaar) 25 mg PO DAILY [facility] Last Admin: 06/07/17 09:53 Dose: 25 mg Nifedipine (Procardia Xl) 60 mg PO DAILY [facility] Last Admin: 06/07/17 09:50 Dose: 60 mg Potassium Chloride (K-Dur 20 Meq Er Tab) 40 meq PO DAILY [facility] Last Admin: 06/07/17 09:48 Dose: 40 meq Prochlorperazine (Compazine Tab) 5 mg PO Q6H [facility] Last Admin: 06/07/17 08:15 Dose: Not Given - Labs Labs: 06/07/17 08:16 06/07/17 08:16 - Additional Findings Additional findings: - Constitutional Appears: Non-toxic, No Acute Distress - Head Exam Head Exam: ATRAUMATIC, NORMAL INSPECTION, NORMOCEPHALIC - Eye Exam Eye Exam: EOMI, Normal appearance, PERRL - ENT Exam ENT Exam: Mucous Membranes Moist - Neck Exam Neck Exam: Normal Inspection - Respiratory Exam Respiratory Exam: Clear to Ausculation Bilateral, NORMAL BREATHING PATTERN. absent: Accessory Muscle Use, Rales, Rhonchi, Wheezes, Respiratory Distress - Cardiovascular Exam Cardiovascular Exam: RRR, +S1, +S2. absent: Gallop, Rubs, Murmur - GI/Abdominal Exam GI & Abdominal Exam: Soft, Normal Bowel Sounds. absent: Distended, Tenderness - Extremities Exam Extremities Exam: Normal Inspection. absent: Calf Tenderness, Pedal Edema IO in place - Neurological Exam Neurological Exam: Alert, Awake, Oriented x3 - Psychiatric Exam Psychiatric exam: Normal Affect, Normal Mood - Skin Skin Exam: Dry, Intact, Normal Color, Warm Assessment and Plan - Assessment and Plan (Free Text) Plan: Nausea and vomiting secondary to gastroparesis Erythromycin 250mg PO q8h Compazine 5mg PO q6h Dilaudid 1mg IV Q8h prn discontinued 06/06/17 Continue to monitor Hyponatremia Started on light hydration with NS @ 75 on 06/06 06/07: improving Uncontrolled diabetes mellitus A1c (02/2017): 6.9 A1c: 7.7 Patient had blood glucose level of 1015 on 06/05/17 - f/u repeat BMP ABG 06/05 - pCO2 40; pO2 61; HCO3 21.3; pH 7.33 Hypoglycemia protocol ISS low - increased to high dose on 06/05 Lantus 15 units HS added 06/06/17 (home medication) Accuchecks Continue to monitor Hypertensive urgency resolved On admission: 217/136 EKG: sinus tachycardia @106bpm Monitor on telemetry - sinus 88bpm Continued home medications: Nifedipine 60mg daily, Losartan 25mg daily, labetalol 200mg PO BID Hydralazine 10mg IV Q6 prn for SBP >160 Seizure hx of seizures and pseudo-seizures Home medication: Keppra 250mg PO BID- held due to vomiting Keppra 500mg IV Q12 Ativan 1mg IV Q6 prn Seizure precautions Continue to monitor Prophylactic measure SCDs, Heparin 5000u SC Q8 Protonix 40mg PO daily Folic Acid 1mg PO daily Ferrous Sulfate 325mg PO BID Vitamin B12 1000mcg PO daily Seizure precaution Telemetry K+ 5.2 Soft, Consistent Carbohydrate Diet, advance as tolerated Removed IO on 06/07
[2017-06-07] MEDS: (Lantus) Insulin Glargine, Recombinant SC SCH (22:20)
[2017-06-08] MEDS: (Novolin R) Insulin Human Regular 100 units/ml vial SC SCH ×2 (08:08→12:40)
[2017-06-08] MEDS: Potassium Chloride 20 mEq ER Tab PO SCH (10:55)
[2017-06-08] MEDS: NIFEdipine 60 mg ER Tab PO SCH (10:56)
[2017-06-08] MEDS: levETIRAcetam 500 MG in Sodium Chloride 0.9% 100 ML IVPB SCH ×2 (11:16→11:24)
[2017-06-08 15:49] VITALS: BP 127/80; PULSE 80; RESP 20; TEMP 97.6; O2SAT 97
--- NOTE | 2017-06-08 15:54 | CP.PCM.DIS ---
Provider - Provider Date of Admission: 05/31/17 19:11 Attending physician: Reza King Jr, MD Time Spent in preparation of Discharge (in minutes): 30 Hospital Course - Lab Results Lab Results: Most Recent Lab Values WBC 6.3 K/uL (4.8-10.8) 06/07/17 08:16 RBC 3.41 Mil/uL (3.80-5.20) L 06/07/17 08:16 Hgb 9.7 g/dL (11.0-16.0) L 06/07/17 08:16 Hct 28.7 % (34.0-47.0) L 06/07/17 08:16 MCV 84.2 fL (81.0-99.0) D 06/07/17 08:16 MCH 28.5 pg (27.0-31.0) 06/07/17 08:16 MCHC 33.8 g/dL (33.0-37.0) 06/07/17 08:16 RDW 14.1 % (11.5-14.5) 06/07/17 08:16 Plt Count 231 K/uL (130-400) 06/07/17 08:16 MPV 11.5 fL (7.2-11.7) 06/07/17 08:16 Neut % (Auto) 59.4 % (50.0-75.0) 06/07/17 08:16 Lymph % (Auto) 28.3 % (20.0-40.0) 06/07/17 08:16 [place] % (Auto) 7.9 % (0.0-10.0) 06/07/17 08:16 Eos % (Auto) 3.2 % (0.0-4.0) 06/07/17 08:16 Baso % (Auto) 1.2 % (0.0-2.0) 06/07/17 08:16 Neut # (Auto) 3.8 K/uL (1.8-7.0) 06/07/17 08:16 Lymph # (Auto) 1.8 K/uL (1.0-4.3) 06/07/17 08:16 [place] # (Auto) 0.5 K/uL (0.0-0.8) 06/07/17 08:16 Eos # (Auto) 0.2 K/uL (0.0-0.7) 18 08:16 Baso # (Auto) 0.1 K/uL (0.0-0.2) 18 08:16 Neutrophils % (Manual) 81 % (50-75) H 18 11:39 Band Neutrophils % 1 % (0-2) 06/06/17 11:39 Lymphocytes % (Manual) 12 % (20-40) L 06/06/17 11:39 Monocytes % (Manual) 6 % (0-10) 06/06/17 11:39 Eosinophils % (Manual) 1 % (0-4) 05/31/17 18:20 Platelet Estimate Normal (NORMAL) 06/06/17 11:39 RBC Morphology Normal 05/31/17 18:20 Poikilocytosis (manual Slight 06/06/17 11:39 Anisocytosis (manual) Slight 06/06/17 11:39 Puncture Site Rra 06/05/17 14:18 pCO2 40 mm/Hg (35-45) 06/05/17 14:18 pO2 61 mm/Hg (80-100) L 06/05/17 14:18 HCO3 21.3 mmol/L (21-28) 06/05/17 14:18 ABG pH 7.33 (7.35-7.45) L 06/05/17 14:18 ABG Total CO2 22.3 mmol/L (22-28) 06/05/17 14:18 ABG O2 Saturation 93.6 % (95-98) L 06/05/17 14:18 ABG Base Excess -4.5 mmol/L (-2.0-3.0) L 06/05/17 14:18 ABG Hemoglobin 9.6 g/dL (11.7-17.4) L 06/05/17 14:18 ABG Carboxyhemoglobin 0.8 % (0.5-1.5) 06/05/17 14:18 POC ABG HHb (Measured) 6.3 % (0.0-5.0) H 06/05/17 14:18 ABG Methemoglobin 0.8 % (0.0-3.0) 06/05/17 14:18 Glenn Test Pos 06/05/17 14:18 A-a O2 Difference 39.0 mm/Hg 06/05/17 14:18 Respiratory Index 0.6 06/05/17 14:18 Hgb O2 Saturation 92.2 % (95.0-98.0) L 06/05/17 14:18 FiO2 21.0 % 06/05/17 14:18 Sodium 125 mmol/L (132-148) L 06/07/17 08:16 Potassium 4.6 mmol/L (3.6-5.2) 06/07/17 08:16 Chloride 97 mmol/L (98-107) L 06/07/17 08:16 Carbon Dioxide 23 mmol/L (22-30) 06/07/17 08:16 Anion Gap 10 (10-20) 06/07/17 08:16 BUN 37 mg/dL (7-17) H 06/07/17 08:16 Creatinine 2.8 mg/dL (0.7-1.2) H 06/07/17 08:16 Est GFR ( Amer) 24 06/07/17 08:16 Est GFR (Non-Af Amer) 20 06/07/17 08:16 POC Glucose (mg/dL) 305 mg/dL (65-110) H 06/08/17 11:30 Random Glucose 319 mg/dL (65-105) H 06/07/17 08:16 Hemoglobin A1c 7.7 % (4.2-6.5) H 06/01/17 07:12 Calcium 8.1 mg/dl (8.6-10.4) L 06/07/17 08:16 Total Bilirubin 0.3 mg/dL (0.2-1.3) 06/07/17 08:16 AST 31 U/L (14-36) 06/07/17 08:16 ALT 26 U/L (9-52) 06/07/17 08:16 Alkaline Phosphatase 100 U/L (38-126) 06/07/17 08:16 Total Protein 5.4 g/dL (6.3-8.3) L 06/07/17 08:16 Albumin 2.6 g/dL (3.5-5.0) L 06/07/17 08:16 Globulin 2.8 gm/dL (2.2-3.9) 06/07/17 08:16 Albumin/Globulin Ratio 0.9 (1.0-2.1) L 06/07/17 08:16 Urine Color Straw (YELLOW) 06/01/17 04:50 Urine Clarity Hazy (Clear) 06/01/17 04:50 Urine pH 6.0 (5.0-8.0) 06/01/17 04:50 Ur Specific [place] 1.015 (1.003-1.030) 06/01/17 04:50 Urine Protein 3+ mg/dL (NEGATIVE) H 06/01/17 04:50 Urine Glucose (UA) 3+ mg/dL (Normal) H 06/01/17 04:50 Urine Ketones Negative mg/dL (NEGATIVE) 06/01/17 04:50 Urine Blood Negative (NEGATIVE) 06/01/17 04:50 Urine Nitrate Negative (NEGATIVE) 06/01/17 04:50 Urine Bilirubin Negative (NEGATIVE) 06/01/17 04:50 Urine Urobilinogen Normal mg/dL (0.2-1.0) 06/01/17 04:50 Ur Leukocyte Esterase Neg Kathy/uL (Negative) 06/01/17 04:50 Urine WBC (Auto) 7 /hpf (0-5) H 06/01/17 04:50 Urine RBC (Auto) 7 /hpf (0-3) H 06/01/17 04:50 Ur Squamous Epith Cells 4 /hpf (0-5) 06/01/17 04:50 Urine Bacteria Occ (<OCC) H 06/01/17 04:50 Urine HCG, Qual Negative (NEGATIVE) 06/01/17 04:50 Influenza Typ A,B (EIA) Negative for flu a/b (NEGATIVE) 05/31/17 20:51 - Hospital Course Hospital Course: As per admission documentation, Patient is a 26 year old female with a past medical history of DM, HTN, gastroparesis, and seizure disorder (to include pseudo-seizure), who presents to the ED with complaints of vomiting, nausea, and gastroparesis. Mother is at bedside and assists with history as patient is actively vomiting. Patient was discharged from [place] yesterday for similar complaints, and was hospitalized for approximately 5-6 days. As per mother, patient ate dinner without complications and then went out last night with a friend, returning home after 11pm. Patient was home all day today and the mother received a phone call that there were ambulances outside her house. In the field, patient's glucose was 15. Patient states she took her insulin today, but did not eat much. Patient admits to abdominal pain, weakness, nausea, and vomiting. Patient denies chest pain, palpitations, fevers, chills, shortness of breath, cough, d/c , and headaches. Hospital Course, Patient was admitted on 05/31/17 for gastroparesis and vomiting. Patient is well known to the hospital staff as she has been here multiple times for the same complaints. She was started on her home medications and given Zofran. After a few days Patient was stable throughout her hospital stay. Patient has an extensive past medical history with multiple previous admissions for uncontrolled diabetes. Her vomiting resolved and patient was instructed of the importance of medication compliance. Patient was discharged home with new prescriptions of Erythromycin. Nausea and vomiting secondary to gastroparesis Erythromycin 250mg PO q8h Compazine 5mg PO q6h Dilaudid 1mg IV Q8h prn discontinued 06/06/17 Continue to monitor Hyponatremia Started on light hydration with NS @ 75 on 06/06 06/07: improving Uncontrolled diabetes mellitus A1c (02/2017): 6.9 A1c: 7.7 Patient had blood glucose level of 1015 on 06/05/17 - f/u repeat BMP ABG 06/05 - pCO2 40; pO2 61; HCO3 21.3; pH 7.33 Hypoglycemia protocol ISS low - increased to high dose on 06/05 Lantus 15 units HS added 06/06/17 (home medication) Accuchecks Continue to monitor Hypertensive urgency resolved On admission: 217/136 EKG: sinus tachycardia @106bpm Monitor on telemetry - sinus 88bpm Continued home medications: Nifedipine 60mg daily, Losartan 25mg daily, labetalol 200mg PO BID Hydralazine 10mg IV Q6 prn for SBP >160 Seizure hx of seizures and pseudo-seizures Home medication: Keppra 250mg PO BID- held due to vomiting Keppra 500mg IV Q12 Ativan 1mg IV Q6 prn Seizure precautions Continue to monitor Prophylactic measure SCDs, Heparin 5000u SC Q8 Protonix 40mg PO daily Folic Acid 1mg PO daily Ferrous Sulfate 325mg PO BID Vitamin B12 1000mcg PO daily Seizure precaution Telemetry K+ 5.2 Soft, Consistent Carbohydrate Diet, advance as tolerated Removed IO on 06/07 Discharge instructions, Patient is to be discharged home per Dr. King. Patient is scheduled to follow up with Dr. King on 06/11/17. Patient was given a new prescription for Erythromycin 250mg PO q8h x 4 days, and refills of Protonix and Nifedipine. If the patient experiences any new or worsening symptoms, please return to the nearest emergency care facility. This is just a brief summary of the events while in the hospital. Please see EMR for full detail. Discharge Exam - Head Exam Head Exam: ATRAUMATIC, NORMAL INSPECTION, NORMOCEPHALIC Discharge Plan - Discharge Medications Prescriptions: Erythromycin 250 mg PO Q8 #12 tab NIFEdipine ER [Procardia XL] 60 mg PO DAILY 30 Days #30 ter Pantoprazole [Protonix] 40 mg PO DAILY #30 ect - Follow Up Plan Condition: IMPROVED Disposition: HOME/ ROUTINE Instructions: Erythromycin (Systemic), Diabetes Exchange Diet, Carbohydrate Counting Diet, Seizures, Adult (DC), Gastroparesis (Delayed Gastric Emptying) ( DC), Nifedipine, Pantoprazole Additional Instructions: Patient is to be discharged home per Dr. King. Patient is scheduled to follow up with Dr. King on 06/11/17. Patient was given a new prescription for Erythromycin 250mg PO q8h x 4 days, and refills of Protonix and Nifedipine. If the patient experiences any new or worsening symptoms, please return to the nearest emergency care facility. Referrals: Reza King Jr., MD [Medical Doctor] -
== END 2017-06-08 16:33 | disposition home or self-care (01) | DRG 18 ==
LOC: C.ER 16:17 → C.9E 19:11 → C.3T 20:15 → C.6T 23:05
PROVIDERS: ADMIT Internal Medicine; ATTEND Internal Medicine
DX: E11.43 Type 2 diabetes mellitus with diabetic autonomic (poly)neuropathy (principal); E11.65 Type 2 diabetes mellitus with hyperglycemia; E11.649 Type 2 diabetes mellitus with hypoglycemia without coma; E87.1 Hypo-osmolality and hyponatremia; K31.84 Gastroparesis; G40.909 Epilepsy, unspecified, not intractable, without status epilepticus; I10 Essential (primary) hypertension; I16.0 Hypertensive urgency; Z79.4 Long term (current) use of insulin; Z83.3 Family history of diabetes mellitus; D64.9 Anemia, unspecified; F32.9 Major depressive disorder, single episode, unspecified; F41.9 Anxiety disorder, unspecified

== ENCOUNTER 2017-06-09 16:29 | Inpatient (IN) | payer MEDICAID ==
[2017-06-09 16:29] VITALS: BMI 25.6
[2017-06-09] MEDS ORDERED: Sodium Chloride 0.9% 1,000 ML IV ONE (17:33)
[2017-06-09] MEDS ORDERED: HYDROmorphone 1 mg/ml ISec IVP STA (17:36)
[2017-06-09] MEDS ORDERED: Sodium Chloride 0.9% 1,000 ML ONE (17:45)
[2017-06-09 18:10] LABS: BASO # 0.1 K/uL (0.0-0.2); BASO % 0.6 % (0.0-2.0); EOS # 0.3 K/uL (0.0-0.7); EOS % 2.9 % (0.0-4.0); HEMOGLOBIN 11.5 g/dL (11.0-16.0); LYMPH # 1.8 K/uL (1.0-4.3); MEAN CELL VOLUME 85.6 fL (81.0-99.0); MEAN CORPUSCULAR HEMOGLOBIN 27.7 pg (27.0-31.0); MEAN CORPUSCULAR HGB CONC 32.3 g/dL (33.0-37.0); MEAN PLATELET VOLUME 11.5 fL (7.2-11.7); MONO # 0.6 K/uL (0.0-0.8); MONO % 5.6 % (0.0-10.0); NEUT # 8.6 K/uL (1.8-7.0); NEUT % 74.9 % (50.0-75.0); NRBC % 0.2 % (0.0-2.0); RBC 4.14 Mil/uL (3.80-5.20); RED CELL DISTRIBUTION WIDTH 14.5 % (11.5-14.5); WHITE BLOOD COUNT 11.5 K/uL (4.8-10.8)
[2017-06-09 18:21] LABS: ALBUMIN 3.6 g/dL (3.5-5.0); CALCIUM 9.6 mg/dl (8.6-10.4)
[2017-06-09] MEDS ORDERED: Labetalol 25mg/5ml Syringe IVP STA (18:21)
[2017-06-09] MEDS ORDERED: Labetalol 25mg/5ml Syringe ONE (18:33)
--- NOTE | 2017-06-09 19:22 | CP.PCM.HP ---
History of Present Illness - History of Present Illness History of Present Illness: PGY1 H+P for Dr. King Patient is a 27 year old female with a past medical history of DM, HTN, gastroparesis, and seizure disorder (to include pseudo-seizure), who presents to the ED with complaints of vomiting, nausea, and gastroparesis. Mother is at bedside and assists with history as patient is actively vomiting. Patient was discharged from [place] yesterday for similar complaints, and was hospitalized for 9 days. As per mother, she attempted to get the patient's medications from the pharmacy yesterday but their insurance did not cover the erythromycin. Patient began to have difficulty with nausea and vomiting early this afternoon. She was only able to eat soup. Patient states she took her insulin today, but did not eat much. Patient admits to abdominal pain, weakness, nausea, and vomiting. Patient denies chest pain, palpitations, fevers, chills, shortness of breath, cough, d/c, and headaches. (Chart review from previous admission on 05/31/17) PMD: Dr. King PMHx: HTN, DM, gastroparesis, seizure disorder (to include pseudo-seizures) SurgHx: denies FamHx: Grandmother- DM SocHx: denies tobacco, alcohol, and drug use Allergies: NKDA Medications: Insulin 5 units QID, hydroxyzine 25mg daily, vitamin D 82944 units weekly, feosol 325mg BID, nifedipine 30mg PO daily, folic acid 1mg daily, losartan 25mg po daily, protonix 40mg HS, keppra 250mg BID, vitamin B12 1000mg daily. Present on Admission - Present on Admission Any Indicators Present on Admission: No Review of Systems - Review of Systems All systems: reviewed and no additional remarkable complaints except (as per HPI ) Past Patient History - Infectious Disease Hx of Infectious Diseases: None - Past Medical History & Family History Past Medical History?: Yes - Past Social History Smoking Status: Never Smoked - CARDIAC Hx Hypertension: Yes - PULMONARY Hx Respiratory Disorders: No - NEUROLOGICAL Hx Seizures: Yes - HEENT Hx HEENT Problems: Yes Other/Comment: blurred vision both eyes uses eyeglasses - RENAL Hx Chronic Kidney Disease: No - ENDOCRINE/METABOLIC Hx Diabetes Mellitus Type 2: Yes - HEMATOLOGICAL/ONCOLOGICAL Hx Anemia: Yes - INTEGUMENTARY Hx Dermatological Problems: No - MUSCULOSKELETAL/RHEUMATOLOGICAL Hx Falls: No - GASTROINTESTINAL Hx Gastrointestinal Disorders: Yes (SEE COMMENT) Other/Comment: gastroparesis - GENITOURINARY/GYNECOLOGICAL Hx Genitourinary Disorders: No - PSYCHIATRIC Hx Anxiety: Yes Hx Depression: Yes Hx Substance Use: Yes (marijuana) - SURGICAL HISTORY Hx Surgeries: No - ANESTHESIA Hx Anesthesia: No Meds Allergies/Adverse Reactions: Allergies Allergy/AdvReac Type Severity Reaction Status Date / Time No Known Allergies Allergy Verified 04/03/17 09:42 Physical Exam - Constitutional Appears: In Acute Distress (actively vomiting) - Head Exam Head Exam: ATRAUMATIC, NORMOCEPHALIC - Eye Exam Eye Exam: EOMI, Normal appearance Pupil Exam: NORMAL ACCOMODATION - ENT Exam ENT Exam: Mucous Membranes Moist - Respiratory Exam Respiratory Exam: Clear to Auscultation Bilateral, NORMAL BREATHING PATTERN. absent: Accessory Muscle Use, Rales, Rhonchi, Wheezes, Respiratory Distress - Cardiovascular Exam Cardiovascular Exam: Tachycardia, REGULAR RHYTHM, +S1, +S2 - Extremities Exam Extremities exam: Negative for: calf tenderness, pedal edema - Neurological Exam Neurological exam: Alert, Oriented x3 - Skin Skin Exam: Dry, Warm Results - Vital Signs Recent Vital Signs: Last Vital Signs Temp 99.3 F 06/09/17 16:41 Pulse 110 H 06/09/17 19:02 Resp 20 06/09/17 19:02 BP 170/113 H 06/09/17 19:02 Pulse Ox 98 06/09/17 19:02 - Labs Result Diagrams: 06/09/17 18:02 06/09/17 18:02 Labs: Laboratory Results - last 24 hr 06/09/17 06/09/17 18:02 18:02 WBC 11.5 H D RBC 4.14 Hgb 11.5 Hct 35.4 MCV 85.6 MCH 27.7 MCHC 32.3 L RDW 14.5 Plt Count 307 MPV 11.5 Neut % (Auto) 74.9 Lymph % (Auto) 16.0 L [place] % (Auto) 5.6 Eos % (Auto) 2.9 Baso % (Auto) 0.6 Neut # (Auto) 8.6 H Lymph # (Auto) 1.8 [place] # (Auto) 0.6 Eos # (Auto) 0.3 Baso # (Auto) 0.1 Differential Comment Sodium 134 Potassium 4.4 Chloride 100 Carbon Dioxide 22 Anion Gap 17 BUN 34 H Creatinine 2.4 H Est GFR ( Amer) 29 Est GFR (Non-Af Amer) 24 Random Glucose 163 H Calcium 9.6 Total Bilirubin 0.4 AST 41 H D ALT 35 Alkaline Phosphatase 141 H D Total Protein 7.1 Albumin 3.6 Globulin 3.6 Albumin/Globulin Ratio 1.0 Lipase 47 Assessment & Plan - Assessment and Plan (Free Text) Plan: Nausea and vomiting secondary to gastroparesis Erythromycin 250mg PO q8h Compazine 5mg PO q6h Dilaudid 1mg IV Q8h prn - if patient vomits once, discontinue. Continue to monitor Uncontrolled diabetes mellitus A1c: 7.7 Hypoglycemia protocol ISS high dose Lantus 15 units HS (home medication) - on hold Accuchecks Continue to monitor Hypertensive urgency resolved On admission: 238/130 Monitor on telemetry - sinus @119 bpm Continued home medications: Nifedipine 60mg daily, Losartan 25mg daily, labetalol 200mg PO BID Hydralazine 10mg IV Q6 prn for SBP >160 Seizure hx of seizures and pseudo-seizures Home medication: Keppra 250mg PO BID- held due to vomiting Keppra 500mg IV Q12 Seizure precautions Continue to monitor Prophylactic measure SCDs, Heparin 5000u SC Q8 Protonix 40mg PO daily Folic Acid 1mg PO daily Ferrous Sulfate 325mg PO BID Vitamin B12 1000mcg PO daily Seizure precaution Telemetry Case discussed with Dr. Christine Cano Emeka PGY1
--- NOTE | 2017-06-09 19:47 | C.PDOC ---
History Of Present Illness 27 yr old female brought in via EMS, presents to the ER with complaints of diffuse abdominal pain and vomiting since morning. Patient has history of gastroparesis. Patient also had a questionable witness seizure by the EMS. Denies tongue biting, fever, chills, nausea, diarrhea, dysuria, weakness or numbness. Time Seen by Provider: 06/09/17 17:23 Chief Complaint (Nursing): Abdominal Pain History Per: Patient History/Exam Limitations: no limitations Onset/Duration Of Symptoms: Sudden Onset (morning) Past Medical History Reviewed: Historical Data, Nursing Documentation, Vital Signs Vital Signs: Last Vital Signs Temp 97.4 F L 06/09/17 23:28 Pulse 109 H 06/09/17 23:28 Resp 18 06/09/17 23:28 BP 181/121 H 06/09/17 23:28 Pulse Ox 96 06/09/17 23:28 - Medical History PMH: Anemia, Anxiety, Depression, Diabetes, HTN, Seizures - [facility] Procedures EXCISION OF STOMACH, ENDO, DIAGN (11/02/16) EXCISION OF STOMACH, PYLORUS, ENDO, DIAGN (03/10/17) INSERTION OF INFUSION DEV INTO L SUBCLAV VEIN, PERC APPROACH (10/28/16) INSERTION OF INFUSION DEV INTO SUP VENA CAVA, PERC APPROACH (11/02/16) INTRODUCTION OF NUTRITIONAL INTO PERIPH VEIN, PERC APPROACH (10/16/16) ULTRASONOGRAPHY OF SUPERIOR VENA CAVA, GUIDANCE (10/16/16) Family History: States: No Known Family Hx - Social History Hx Alcohol Use: No Hx Substance Use: Yes (marijuana) - Immunization History Hx Tetanus Toxoid Vaccination: No Hx Influenza Vaccination: Yes Hx Pneumococcal Vaccination: Yes Review Of Systems Except As Marked, All Systems Reviewed And Found Negative. Constitutional: Negative for: Fever, Chills Gastrointestinal: Positive for: Vomiting, Abdominal Pain. Negative for: Nausea , Diarrhea Genitourinary: Negative for: Dysuria Neurological: Negative for: Weakness, Numbness Physical Exam - Physical Exam Appears: Non-toxic, In Acute Distress (screaming) Skin: Warm, Dry, No Rash Eye(s): bilateral: Normal Inspection, PERRL, EOMI Oral Mucosa: Moist Cardiovascular: Rhythm Regular, No Murmur Respiratory: Normal Breath Sounds, No Rales, No Wheezing Gastrointestinal/Abdominal: Bowel Sounds, Soft, Tenderness (diffuse), No Guarding, No Rebound Neurological/Psych: Oriented x3, Normal Speech ED Course And Treatment - Laboratory Results Result Diagrams: 06/09/17 18:02 06/09/17 18:02 O2 Sat by Pulse Oximetry: 98 (RA) Pulse Ox Interpretation: Normal Medical Decision Making Medical Decision Making: PLAN: * EKG * Labs * Urinalysis * DIlaudid IVP * Pepcid IVP * Trandate IVP * Zofran IVP * Sodium Chloride IV PLAN: * Spoke to Dr. King regarding patient * Patient is admitted to telemetry Disposition - Disposition Disposition Time: 19:00 Condition: FAIR - Clinical Impression Clinical Impression: Gastroparesis, Vomiting - Scribe Statement The provider has reviewed the documentation as recorded by the Jw Son Provider Attestation: All medical record entries made by the Monoibelvis were at my direction and personally dictated by me. I have reviewed the chart and agree that the record accurately reflects my personal performance of the history, physical exam, medical decision making, and the department course for this patient. I have also personally directed, reviewed, and agree with the discharge instructions and disposition.
[2017-06-09] MEDS: levETIRAcetam 500 MG in Sodium Chloride 0.9% 100 ML IVPB SCH (20:25)
[2017-06-09] MEDS: (Novolin R) Insulin Human Regular 100 units/ml vial SC SCH (20:30)
[2017-06-09] MEDS: HYDROmorphone 1 mg/5ml IVP PRN (20:31)
[2017-06-09 23:15] LABS: SQUAMOUS EPITHIAL 4 /hpf (0-5); URINE BILIRUBIN NEGATIVE (NEGATIVE); URINE BLOOD NEGATIVE (NEGATIVE); URINE CLARITY Clear (Clear); URINE COLOR Straw (YELLOW); URINE GLUCOSE (UA) 3+ mg/dL (Normal); URINE HYALINE CAST 0-2 /lpf (0-2); URINE LEUKOCYTE ESTERASE NEG Leu/uL (Negative); URINE NITRATE NEGATIVE (NEGATIVE); URINE PROTEIN 3+ mg/dL (NEGATIVE); URINE UROBILINOGEN NORMAL mg/dL (0.2-1.0)
[2017-06-09 23:28] LABS: BARBITURATES, UR NEGATIVE (NEGATIVE); BENZODIAZEPINES, UR NEGATIVE (NEGATIVE); PHENCYCLIDINE, UR NEGATIVE (NEGATIVE)
[2017-06-09 23:43] LABS: OPIATES, UR NEGATIVE (NEGATIVE)
[2017-06-10] MEDS: (Novolin R) Insulin Human Regular 100 units/ml vial SC SCH ×4 (01:58→20:55)
[2017-06-10] MEDS ORDERED: (Novolin R) Insulin Human Regular 100 units/ml vial ONE ×4 (02:00→14:30)
[2017-06-10] MEDS: HYDROmorphone 1 mg/5ml IVP PRN ×3 (04:30→20:41)
[2017-06-10] MEDS: levETIRAcetam 500 MG in Sodium Chloride 0.9% 100 ML IVPB SCH ×2 (07:02→21:10)
[2017-06-10 07:38] LABS: BASO % 0.3 % (0.0-2.0); EOS % 0.1 % (0.0-4.0); HEMOGLOBIN 10.9 g/dL (11.0-16.0); LYMPH # 0.7 K/uL (1.0-4.3); LYMPH % 5.2 % (20.0-40.0); MEAN CORPUSCULAR HEMOGLOBIN 28.5 pg (27.0-31.0); MEAN CORPUSCULAR HGB CONC 32.8 g/dL (33.0-37.0); MONO # 0.1 K/uL (0.0-0.8); MONO % 0.7 % (0.0-10.0); NEUT % 93.7 % (50.0-75.0); NRBC % 0.1 % (0.0-2.0); PLATELET COUNT 336 K/uL (130-400); RBC 3.83 Mil/uL (3.80-5.20); WHITE BLOOD COUNT 12.8 K/uL (4.8-10.8)
[2017-06-10 08:08] LABS: ALB/GLOB RATIO 1.1 (1.0-2.1); ALBUMIN 3.2 g/dL (3.5-5.0); CALCIUM 9.1 mg/dl (8.6-10.4); MAGNESIUM 2.4 mg/dL (1.6-2.3)
[2017-06-10 08:45] LABS: ANISOCYTOSIS SLIGHT; BANDS 1 % (0-2); BASOPHIL 1 % (0-2); HYPOCHROMIC SLIGHT; LYMPHOCYTE 6 % (20-40); MONOCYTE 1 % (0-10); NEUTROPHIL 91 % (50-75); PLATELET ESTIMATE NORMAL (NORMAL); TOTAL CELLS COUNTED 100
[2017-06-10] MEDS ORDERED: (Novolin R) Insulin Human Regular 100 units/ml vial SC ONE ×2 (09:51→22:40)
[2017-06-10] MEDS ORDERED: Pantoprazole 40 mg EC Tab PO SCH (10:00)
[2017-06-10] MEDS ORDERED: NIFEdipine 30 mg ER Tab PO SCH (10:00)
[2017-06-10] MEDS: Sodium Chloride 0.45% 1,000 ML IV SCH ×4 (10:28→23:52)
--- NOTE | 2017-06-10 11:41 | RAD ---
HISTORY: PICC line placement COMPARISON: Chest x-ray performed 03/28/17 TECHNIQUE: Chest, one view. FINDINGS: Right-sided PICC extends expected location of the cavoatrial junction. LUNGS: No focal consolidation. Please note that chest x-ray has limited sensitivity for the detection of pulmonary masses. PLEURA: No significant pleural effusion identified. No definite pneumothorax . CARDIOVASCULAR: The cardiomediastinal silhouette appears within normal limits of size. OSSEOUS STRUCTURES: No acute osseous abnormality identified. VISUALIZED UPPER ABDOMEN: Unremarkable. OTHER FINDINGS: None. IMPRESSION: Right-sided PICC extends to the expected location of the cavoatrial junction.
--- NOTE | 2017-06-10 11:44 | CARD ---
APPROVED REPORT EKG Measurement Heart [id number] <Conclusion> Sinus tachycardia Otherwise normal ECG
[2017-06-10] MEDS ORDERED: HYDROmorphone 0.5 mg/0.5 ml ISec ONE (12:21)
--- NOTE | 2017-06-10 15:56 | CP.PCM.PN ---
Subjective - Date & Time of Evaluation Date of Evaluation: 06/10/17 Time of Evaluation: 08:35 - Subjective Subjective: PGY1 Medicine note for Dr. King Patient seen and examined this morning at bedside. No acute events overnight. Patient was sleeping comfortably Patient reports continued nausea. Patient is crying in bed asking for pain medicine even though she recently had some dilaudid. She states that she is not in any pain at this time. Denies fevers, chills, diarrhea, constipation, chest pain, abdominal pain, SOB, headaches, numbness or tingling. Objective - Vital Signs/Intake and Output Vital Signs (last 24 hours): Temp Pulse Resp BP Pulse Ox 98.3 F 124 H 20 174/96 H 97 06/10/17 15:00 06/10/17 15:00 06/10/17 15:00 06/10/17 15:00 06/10/17 15:00 - Medications Medications: Current Medications Acetaminophen (Tylenol 325mg Tab) 650 mg PO Q6 PRN PRN Reason: fever/pain Cyanocobalamin (Vitamin B12 1000 Mcg Tab) 1,000 mcg PO DAILY [facility] Ergocalciferol (Drisdol 50,000 Intl Units Cap) 1 cap PO QWK [facility] Erythromycin (Erythromycin) 250 mg PO Q8 [facility] Last Admin: 06/10/17 06:12 Dose: 250 mg Ferrous Sulfate (Feosol) 325 mg PO BID [facility] Folic Acid (Folic Acid) 1 mg PO DAILY [facility] Heparin Sodium (Porcine) (Heparin) 5,000 units SC Q8 [facility] Last Admin: 06/10/17 15:06 Dose: 5,000 units Hydralazine HCl (Apresoline) 10 mg IVP Q6H PRN PRN Reason: SBP >160 Last Admin: 06/10/17 15:08 Dose: 10 mg Hydromorphone HCl (Dilaudid) 1 mg IVP Q8H PRN PRN Reason: Pain, severe (8-10) Last Admin: 06/10/17 12:25 Dose: 1 mg Levetiracetam 500 mg/ Sodium (Chloride) 105 mls @ 420 mls/hr IVPB Q12H [facility] Last Admin: 06/10/17 07:02 Dose: 420 mls/hr Sodium Chloride (Sodium Chloride 0.45%) 1,000 mls @ 150 mls/hr IV .Q6H40M [facility] Last Admin: 06/10/17 10:28 Dose: 150 mls/hr Insulin Glargine (Lantus) 15 unit SC HS [facility] Insulin Human Regular (Novolin R) 0 unit SC Q6H [facility] PRN Reason: Protocol Last Admin: 06/10/17 14:30 Dose: 2 unit Labetalol HCl (Trandate) 200 mg PO BID [facility] Losartan Potassium (Cozaar) 25 mg PO DAILY [facility] Nifedipine (Procardia Xl) 60 mg PO DAILY [facility] Ondansetron HCl (Zofran Inj) 4 mg IVP Q8H PRN PRN Reason: Nausea/Vomiting Last Admin: 06/10/17 10:29 Dose: 4 mg Pantoprazole Sodium (Protonix Ec Tab) 40 mg PO DAILY [facility] Pantoprazole Sodium (Protonix Inj) 40 mg IVP Q12H [facility] Last Admin: 06/10/17 12:25 Dose: 40 mg Prochlorperazine (Compazine Tab) 5 mg PO Q6H [facility] Last Admin: 06/10/17 08:02 Dose: 5 mg - Labs Labs: 06/10/17 07:30 06/10/17 07:30 - Constitutional Appears: Other (dry heaving, attempting to vomit.) - Head Exam Head Exam: ATRAUMATIC, NORMOCEPHALIC - Eye Exam Eye Exam: EOMI, Normal appearance - ENT Exam ENT Exam: Mucous Membranes Moist - Respiratory Exam Respiratory Exam: Clear to Ausculation Bilateral, NORMAL BREATHING PATTERN. absent: Accessory Muscle Use, Rales, Rhonchi, Wheezes, Respiratory Distress - Cardiovascular Exam Cardiovascular Exam: Tachycardia, REGULAR RHYTHM, +S1, +S2 - GI/Abdominal Exam GI & Abdominal Exam: Soft, Normal Bowel Sounds. absent: Distended, Firm, Guarding, Rigid, Tenderness - Extremities Exam Extremities Exam: absent: Calf Tenderness, Pedal Edema - Neurological Exam Neurological Exam: Alert, Awake, Oriented x3 - Psychiatric Exam Psychiatric exam: Anxious (crying asking for pain medications) - Skin Skin Exam: Dry, Warm Assessment and Plan - Assessment and Plan (Free Text) Plan: Nausea and vomiting secondary to gastroparesis Compazine 5mg PO q6h - hold due to dry heaving. Dilaudid 1mg IV Q8h prn - if patient vomits once, discontinue. Continue to monitor 1/2 NS @150mL/hr Uncontrolled diabetes mellitus A1c: 7.7 Hypoglycemia protocol ISS high dose Lantus 15 units HS (home medication) - restarted Accuchecks Continue to monitor Hypertensive urgency resolved On admission: 238/130 Monitor on telemetry - sinus @119 bpm Continued home medications: Nifedipine 60mg daily, Losartan 25mg daily, labetalol 200mg PO BID - hold due to dry heaving. Hydralazine 10mg IV Q6 prn for SBP >160 Seizure hx of seizures and pseudo-seizures Home medication: Keppra 250mg PO BID- held due to vomiting Keppra 500mg IV Q12 Seizure precautions Continue to monitor Prophylactic measure SCDs, Heparin 5000u SC Q8 Protonix 40mg IVP daily Folic Acid 1mg PO daily - hold due to dry heaving. Ferrous Sulfate 325mg PO BID - hold due to dry heaving. Vitamin B12 1000mcg PO daily - hold due to dry heaving. Seizure precaution Telemetry Case discussed with Dr. Christine Cano Emeka PGY1
[2017-06-10] MEDS: (Lantus) Insulin Glargine, Recombinant SC SCH (21:09)
[2017-06-11] MEDS: (Novolin R) Insulin Human Regular 100 units/ml vial SC SCH ×4 (01:55→20:10)
[2017-06-11] MEDS: HYDROmorphone 1 mg/5ml IVP PRN (04:59)
[2017-06-11] MEDS: Sodium Chloride 0.45% 1,000 ML IV SCH ×3 (05:14→20:30)
[2017-06-11 07:59] LABS: BASO # 0.1 K/uL (0.0-0.2); BASO % 0.6 % (0.0-2.0); HEMOGLOBIN 9.9 g/dL (11.0-16.0); LYMPH # 1.5 K/uL (1.0-4.3); LYMPH % 9.1 % (20.0-40.0); MEAN CELL VOLUME 85.5 fL (81.0-99.0); MEAN CORPUSCULAR HEMOGLOBIN 28.7 pg (27.0-31.0); MEAN CORPUSCULAR HGB CONC 33.6 g/dL (33.0-37.0); MEAN PLATELET VOLUME 10.8 fL (7.2-11.7); MONO # 0.7 K/uL (0.0-0.8); NEUT # 14.3 K/uL (1.8-7.0); NEUT % 86.3 % (50.0-75.0); PLATELET COUNT 371 K/uL (130-400); RBC 3.45 Mil/uL (3.80-5.20); RED CELL DISTRIBUTION WIDTH 15.4 % (11.5-14.5); WHITE BLOOD COUNT 16.6 K/uL (4.8-10.8)
[2017-06-11 08:13] LABS: ALBUMIN 3.1 g/dL (3.5-5.0); CALCIUM 9.2 mg/dl (8.6-10.4); MAGNESIUM 2.5 mg/dL (1.6-2.3)
[2017-06-11 09:07] LABS: LYMPHOCYTE 9 % (20-40); MONOCYTE 2 % (0-10); NEUTROPHIL 89 % (50-75); TOTAL CELLS COUNTED 100
[2017-06-11 09:08] LABS: ANISOCYTOSIS SLIGHT; HYPOCHROMIC SLIGHT; PLATELET ESTIMATE NORMAL (NORMAL)
[2017-06-11 09:09] LABS: OVALOCYTES SLIGHT
[2017-06-11] MEDS: levETIRAcetam 500 MG in Sodium Chloride 0.9% 100 ML IVPB SCH ×2 (09:37→20:33)
--- NOTE | 2017-06-11 18:24 | CP.PCM.PN ---
Subjective - Date & Time of Evaluation Date of Evaluation: 06/11/17 Time of Evaluation: 10:00 - Subjective Subjective: PGY1 Medicine Note for Dr. King Patient seen and examined at bedside this morning. Patient is very agitated this morning. She is screaming and crying for Ativan and/or Dilaudid. She shaking in her bed saying that she is having a seizure. She is vomiting. Patient is supposed to be NPO but she is getting up out of bed, running down the hallway to the nursing area and stealing food and juice out of the refrigerator. She then says she needs Dilaudid for the stomach pains. When she is informed that she will not be receiving Dilaudid she starts to bargain and tries to talk her way into getting Ativan for "the pain" and to help with her "seizure". She is crying stating she is not faking and that she needs help. Objective - Vital Signs/Intake and Output Vital Signs (last 24 hours): Temp Pulse Resp BP Pulse Ox 98.3 F 126 H 20 202/122 H 97 06/11/17 16:00 06/11/17 16:00 06/11/17 16:00 06/11/17 16:00 06/11/17 16:00 Intake and Output: 06/11/17 06/11/17 06:59 18:59 Intake Total 800 2400 Balance 800 2400 - Medications Medications: Current Medications Acetaminophen (Tylenol 325mg Tab) 650 mg PO Q6 PRN PRN Reason: fever/pain Cyanocobalamin (Vitamin B12 1000 Mcg Tab) 1,000 mcg PO DAILY [facility] Ergocalciferol (Drisdol 50,000 Intl Units Cap) 1 cap PO QWK [facility] Erythromycin (Erythromycin) 250 mg PO Q8 [facility] Last Admin: 06/10/17 06:12 Dose: 250 mg Ferrous Sulfate (Feosol) 325 mg PO BID [facility] Folic Acid (Folic Acid) 1 mg PO DAILY [facility] Heparin Sodium (Porcine) (Heparin) 5,000 units SC Q8 [facility] Last Admin: 06/11/17 14:20 Dose: Not Given Hydralazine HCl (Apresoline) 10 mg IVP Q6H PRN PRN Reason: SBP >160 Last Admin: 06/11/17 17:21 Dose: 10 mg Levetiracetam 500 mg/ Sodium (Chloride) 105 mls @ 420 mls/hr IVPB Q12H [facility] Last Admin: 06/11/17 09:37 Dose: 420 mls/hr Sodium Chloride (Sodium Chloride 0.45%) 1,000 mls @ 150 mls/hr IV .Q6H40M [facility] Last Admin: 06/11/17 14:22 Dose: 150 mls/hr Insulin Glargine (Lantus) 15 unit SC HS [facility] Last Admin: 06/10/17 21:09 Dose: 15 u Insulin Human Regular (Novolin R) 0 unit SC Q6H [facility] PRN Reason: Protocol Last Admin: 06/11/17 14:20 Dose: Not Given Labetalol HCl (Trandate) 200 mg PO BID [facility] Losartan Potassium (Cozaar) 25 mg PO DAILY [facility] Nifedipine (Procardia Xl) 60 mg PO DAILY [facility] Ondansetron HCl (Zofran Inj) 4 mg IVP Q8H [facility] Last Admin: 06/11/17 12:57 Dose: Not Given Pantoprazole Sodium (Protonix Ec Tab) 40 mg PO DAILY [facility] Pantoprazole Sodium (Protonix Inj) 40 mg IVP Q12H [facility] Last Admin: 06/11/17 10:18 Dose: 40 mg Prochlorperazine (Compazine Tab) 5 mg PO Q6H [facility] Last Admin: 06/10/17 08:02 Dose: 5 mg - Labs Labs: 06/11/17 07:47 06/11/17 07:47 - Constitutional Appears: Agitated, Other (crying. ) - Head Exam Head Exam: ATRAUMATIC, NORMOCEPHALIC - Eye Exam Eye Exam: EOMI, Normal appearance - ENT Exam ENT Exam: Mucous Membranes Moist - Respiratory Exam Respiratory Exam: Clear to Ausculation Bilateral, NORMAL BREATHING PATTERN. absent: Accessory Muscle Use, Rales, Rhonchi, Wheezes, Respiratory Distress - Cardiovascular Exam Cardiovascular Exam: Tachycardia (on tele), REGULAR RHYTHM, +S1, +S2 - GI/Abdominal Exam GI & Abdominal Exam: Soft, Tenderness (epigastric region), Normal Bowel Sounds. absent: Distended, Firm, Guarding, Rigid - Extremities Exam Extremities Exam: absent: Calf Tenderness, Pedal Edema - Neurological Exam Neurological Exam: Alert, Awake, Oriented x3 - Psychiatric Exam Psychiatric exam: Agitated, Anxious - Skin Skin Exam: Dry, Warm Assessment and Plan - Assessment and Plan (Free Text) Plan: Possible Munchausen Syndrome Psychiatry consulted, Dr. New - help appreciated Patient's actions caused a large amount of resources (time from nurses and residents) to spent on her. She was told she needed to start acting appropriately. She is stealing food and juices from the nutrition station even though she is NPO. She is also stealing drinks and food from her roommate's tray. She is then turning around and vomiting. She states she is not faking. [employer] system is present in room. They are reporting to the nurses that the patient is consistently sticking her fingers down her throat to induce vomiting. Resident Emeka told her to stop faking the seizures. She states she is not faking. When asked by Dr. King why she feels like she is having seizures, she stated "I get a birch of warmth. I don't know. Sometimes when my sugars get too low as well. I'm not really sure. It's just always how my seizures have been." When instructed that these are not consistent with real seizures, patient became up set. She apologized to Dr. Hendrickson, stating that she was sorry for her actions throughout the day. She states she will not do it anymore. Patient's mother was present during this conversation with Dr. King in the room. It was explained to the mother that this is believed to be all psych. The mother agrees. She states she just does not know what to do any longer. "My daughter needs mental help. I do not want to lose her." Dr. King instructed her that this is indeed a very important/dangerous issue and will need to be addressed by a psychiatrist. Nausea and vomiting secondary to gastroparesis Compazine 5mg PO q6h - hold due to dry heaving. Dilaudid 1mg IV Q8h prn - discontinued. No more pain medication of any type at this time. If patient is vomit free for 48 hours, can relook into pain medications but no more dilaudid for this hospital stay. Continue to monitor 1/2 NS @150mL/hr Uncontrolled diabetes mellitus A1c: 7.7 Hypoglycemia protocol ISS high dose Lantus 15 units HS (home medication) - restarted Accuchecks Continue to monitor Hypertensive urgency resolved On admission: 238/130 Monitor on telemetry - sinus @119 bpm Continued home medications: Nifedipine 60mg daily, Losartan 25mg daily, labetalol 200mg PO BID - hold due to dry heaving. Hydralazine 10mg IV Q6 prn for SBP >160 Seizure hx of seizures and pseudo-seizures Home medication: Keppra 250mg PO BID- held due to vomiting Keppra 500mg IV Q12 Seizure precautions Continue to monitor Prophylactic measure SCDs, Heparin 5000u SC Q8 Protonix 40mg IVP daily Folic Acid 1mg PO daily - hold due to dry heaving. Ferrous Sulfate 325mg PO BID - hold due to dry heaving. Vitamin B12 1000mcg PO daily - hold due to dry heaving. Seizure precaution Telemetry Case discussed with Dr. Christine Cano Emeka PGY1
[2017-06-11] MEDS: (Lantus) Insulin Glargine, Recombinant SC SCH (22:26)
[2017-06-12] MEDS: (Novolin R) Insulin Human Regular 100 units/ml vial SC SCH ×4 (01:57→19:34)
[2017-06-12] MEDS: Sodium Chloride 0.45% 1,000 ML IV SCH ×5 (02:25→21:08)
--- NOTE | 2017-06-12 07:55 | CP.PCM.PN ---
Subjective - Date & Time of Evaluation Date of Evaluation: 06/12/17 Time of Evaluation: 07:55 - Subjective Subjective: PGY1 Medicine note for Dr. King Patient seen and examined at bedside this morning. Nursing staff reporting that patient was causing problems all night. They had to lock the nutrition room door because patient kept running out of her room in to the nutrition room to steal food and juice. They report that the patient is continuing to stick her fingers down her throat causing her self to vomit. She is still faking seizures attempting to get ativan. Patient refused to talk this morning. She laid in bed and attempted to dry heave during examination but did not vomit. Objective - Vital Signs/Intake and Output Vital Signs (last 24 hours): Temp Pulse Resp BP Pulse Ox 98.5 F 123 H 20 200/117 H 99 06/12/17 01:30 06/12/17 01:30 06/12/17 01:30 06/12/17 01:30 06/12/17 01:30 Intake and Output: 06/12/17 06/12/17 06:59 18:59 Intake Total 2200 Output Total 50 Balance 2150 - Medications Medications: Current Medications Acetaminophen (Tylenol 325mg Tab) 650 mg PO Q6 PRN PRN Reason: fever/pain Cyanocobalamin (Vitamin B12 1000 Mcg Tab) 1,000 mcg PO DAILY [facility] Ergocalciferol (Drisdol 50,000 Intl Units Cap) 1 cap PO QWK [facility] Erythromycin (Erythromycin) 250 mg PO Q8 [facility] Last Admin: 06/10/17 06:12 Dose: 250 mg Ferrous Sulfate (Feosol) 325 mg PO BID [facility] Folic Acid (Folic Acid) 1 mg PO DAILY [facility] Heparin Sodium (Porcine) (Heparin) 5,000 units SC Q8 [facility] Last Admin: 06/12/17 05:19 Dose: 5,000 units Hydralazine HCl (Apresoline) 10 mg IVP Q6H PRN PRN Reason: SBP >160 Last Admin: 06/12/17 00:47 Dose: 10 mg Levetiracetam 500 mg/ Sodium (Chloride) 105 mls @ 420 mls/hr IVPB Q12H [facility] Last Admin: 06/11/17 20:33 Dose: 420 mls/hr Sodium Chloride (Sodium Chloride 0.45%) 1,000 mls @ 150 mls/hr IV .Q6H40M [facility] Last Admin: 06/12/17 03:41 Dose: 150 mls/hr Insulin Glargine (Lantus) 15 unit SC HS [facility] Last Admin: 06/11/17 22:26 Dose: 15 u Insulin Human Regular (Novolin R) 0 unit SC Q6H [facility] PRN Reason: Protocol Last Admin: 06/12/17 01:57 Dose: Not Given Labetalol HCl (Trandate) 200 mg PO BID [facility] Losartan Potassium (Cozaar) 25 mg PO DAILY [facility] Nifedipine (Procardia Xl) 60 mg PO DAILY [facility] Ondansetron HCl (Zofran Inj) 4 mg IVP Q8H [facility] Last Admin: 06/12/17 02:52 Dose: 4 mg Pantoprazole Sodium (Protonix Ec Tab) 40 mg PO DAILY [facility] Pantoprazole Sodium (Protonix Inj) 40 mg IVP Q12H [facility] Last Admin: 06/11/17 22:26 Dose: 40 mg Prochlorperazine (Compazine Tab) 5 mg PO Q6H [facility] Last Admin: 06/10/17 08:02 Dose: 5 mg - Labs Labs: 06/11/17 07:47 06/11/17 07:47 - Constitutional Appears: Non-toxic, No Acute Distress - Head Exam Head Exam: ATRAUMATIC, NORMOCEPHALIC - Eye Exam Eye Exam: EOMI, Normal appearance - ENT Exam ENT Exam: Mucous Membranes Moist - Respiratory Exam Respiratory Exam: Clear to Ausculation Bilateral, NORMAL BREATHING PATTERN. absent: Accessory Muscle Use, Rales, Rhonchi, Wheezes, Respiratory Distress - Cardiovascular Exam Cardiovascular Exam: REGULAR RHYTHM, +S1, +S2 - GI/Abdominal Exam GI & Abdominal Exam: Guarding (voluntary), Soft, Tenderness (patient attempts to pull away when hand was used for palpation, but when stethoscope was used, patient did not flinch. ), Normal Bowel Sounds. absent: Distended, Firm, Rigid - Extremities Exam Extremities Exam: absent: Calf Tenderness, Pedal Edema - Neurological Exam Neurological Exam: Alert, Awake, Oriented x3 - Psychiatric Exam Additional comments: Patient refused to speak. She is extremely labile. Her room is a mess with alcohol wipes thrown all over the room. Patient is putting alcohol wipes on her nose. She is still attempting to induce vomiting. Reports of fake seizures throughout the night. - Skin Skin Exam: Dry, Warm Assessment and Plan - Assessment and Plan (Free Text) Plan: Psychiatry consulted, Dr. New - help appreciated Patient's actions caused a large amount of resources (time from nurses and residents) to spent on her. She was told she needed to start acting appropriately. 06/12/17 - Patient is still stealing food and juices, self-inducing vomiting, faking seizures and now ripping up alcohol wipes and throwing them around her room. She is placing alcohol wipes and leaving them resting on her nose for unknown reasons. Patient is refusing to speak to Resident Emeka this morning at time of exam. She was instructed she needed to stop these actions as we can not have a repeat of yesterday. Patient rolled way from Dr. Hendrickson. 06/11/17 - She is stealing food and juices from the nutrition station even though she is NPO. She is also stealing drinks and food from her roommate's tray. She is then turning around and vomiting. She states she is not faking. [employer] system is present in room. They are reporting to the nurses that the patient is consistently sticking her fingers down her throat to induce vomiting. Resident Emeka told her to stop faking the seizures. She states she is not faking. When asked by Dr. King why she feels like she is having seizures, she stated "I get a birch of warmth. I don't know. Sometimes when my sugars get too low as well. I'm not really sure. It's just always how my seizures have been." When instructed that these are not consistent with real seizures, patient became up set. She apologized to Dr. Hendrickson, stating that she was sorry for her actions throughout the day. She states she will not do it anymore. Patient's mother was present during this conversation with Dr. King in the room. It was explained to the mother that this is believed to be all psych. The mother agrees. She states she just does not know what to do any longer. "My daughter needs mental help. I do not want to lose her." Dr. King instructed her that this is indeed a very important/dangerous issue and will need to be addressed by a psychiatrist. Nausea and vomiting secondary to gastroparesis Compazine 5mg PO q6h - hold due to dry heaving. Dilaudid 1mg IV Q8h prn - discontinued. No more pain medication of any type at this time. If patient is vomit free for 48 hours, can relook into pain medications but no more dilaudid for this hospital stay. Continue to monitor 1/2 NS @150mL/hr Uncontrolled diabetes mellitus A1c: 7.7 Hypoglycemia protocol ISS high dose Lantus 15 units HS (home medication) - restarted Accuchecks Continue to monitor Hypertensive urgency resolved On admission: 238/130 Monitor on telemetry - sinus @119 bpm Continued home medications: Nifedipine 60mg daily, Losartan 25mg daily, labetalol 200mg PO BID - hold due to dry heaving. Hydralazine 10mg IV Q6 prn for SBP >160 Seizure hx of seizures and pseudo-seizures Home medication: Keppra 250mg PO BID- held due to vomiting Keppra 500mg IV Q12 Seizure precautions Continue to monitor Prophylactic measure SCDs, Heparin 5000u SC Q8 Protonix 40mg IVP daily Folic Acid 1mg PO daily - hold due to dry heaving. Ferrous Sulfate 325mg PO BID - hold due to dry heaving. Vitamin B12 1000mcg PO daily - hold due to dry heaving. Seizure precaution Telemetry Will discuss case with Dr. Christine Cano Emeka PGY1
[2017-06-12] MEDS: levETIRAcetam 500 MG in Sodium Chloride 0.9% 100 ML IVPB SCH ×2 (08:06→21:00)
[2017-06-12] MEDS ORDERED: DiphenhydrAMINE 50 mg/ml Inj IVP SCH (14:15)
[2017-06-12 14:29] LABS: ALB/GLOB RATIO 0.8 (1.0-2.1); ALBUMIN 2.8 g/dL (3.5-5.0); CALCIUM 8.6 mg/dl (8.6-10.4); MAGNESIUM 2.3 mg/dL (1.6-2.3)
[2017-06-12] MEDS: DiphenhydrAMINE 50 mg/ml Inj IVP PRN (21:07)
[2017-06-12] MEDS: (Lantus) Insulin Glargine, Recombinant SC SCH (21:08)
[2017-06-13] MEDS: (Novolin R) Insulin Human Regular 100 units/ml vial SC SCH ×4 (02:15→19:48)
[2017-06-13] MEDS: DiphenhydrAMINE 50 mg/ml Inj IVP PRN ×3 (04:53→16:09)
[2017-06-13] MEDS: Sodium Chloride 0.45% 1,000 ML IV SCH ×5 (05:19→23:52)
[2017-06-13 07:34] LABS: ALBUMIN 2.8 g/dL (3.5-5.0); CALCIUM 8.4 mg/dl (8.6-10.4); MAGNESIUM 2.2 mg/dL (1.6-2.3)
[2017-06-13 07:40] LABS: BASO % 0.3 % (0.0-2.0); HEMOGLOBIN 10.9 g/dL (11.0-16.0); LYMPH # 0.9 K/uL (1.0-4.3); LYMPH % 9.5 % (20.0-40.0); MEAN CELL VOLUME 86.2 fL (81.0-99.0); MEAN CORPUSCULAR HEMOGLOBIN 28.3 pg (27.0-31.0); MEAN CORPUSCULAR HGB CONC 32.9 g/dL (33.0-37.0); MEAN PLATELET VOLUME 10.5 fL (7.2-11.7); MONO # 0.4 K/uL (0.0-0.8); MONO % 4.5 % (0.0-10.0); NEUT # 8.1 K/uL (1.8-7.0); NEUT % 85.7 % (50.0-75.0); PLATELET COUNT 331 K/uL (130-400); RBC 3.83 Mil/uL (3.80-5.20); RED CELL DISTRIBUTION WIDTH 15.1 % (11.5-14.5); WHITE BLOOD COUNT 9.4 K/uL (4.8-10.8)
[2017-06-13] MEDS: levETIRAcetam 500 MG in Sodium Chloride 0.9% 100 ML IVPB SCH ×2 (08:14→19:09)
[2017-06-13 10:44] LABS: LYMPHOCYTE 7 % (20-40); MONOCYTE 6 % (0-10); NEUTROPHIL 87 % (50-75); PLATELET ESTIMATE NORMAL (NORMAL); TOTAL CELLS COUNTED 100
[2017-06-13 10:45] LABS: ANISOCYTOSIS SLIGHT
[2017-06-13] MEDS ORDERED: POTASSIUM CHL IV SCH (16:15)
[2017-06-13] MEDS ORDERED: D5 IV SCH (16:15)
[2017-06-13] MEDS ORDERED: POTASSIUM CHLORIDE IV SCH ×2 (16:15→17:30)
--- NOTE | 2017-06-13 16:18 | CP.PCM.PN ---
Subjective - Date & Time of Evaluation Date of Evaluation: 06/13/17 Time of Evaluation: 07:35 - Subjective Subjective: PGY1 Medicine Note for Dr. King Patient seen and examined at bedside this morning. Patient is still sticking her fingers down her throat and faking seizures. Patient is still very labile. She is acting like she is very weak and too tired to talk to the resident during the exam, but the nurses report that she was up walking around shortly prior to the exam. Patient is still stealing alcohol wipes and placing them on her nose. Objective - Vital Signs/Intake and Output Vital Signs (last 24 hours): Temp Pulse Resp BP Pulse Ox 98.7 F 117 H 20 173/111 H 100 06/13/17 09:14 06/13/17 09:14 06/13/17 09:14 06/13/17 09:20 06/13/17 09:14 Intake and Output: 06/13/17 06/13/17 06:59 18:59 Intake Total 2400 1400 Balance 2400 1400 - Medications Medications: Current Medications Acetaminophen (Tylenol 325mg Tab) 650 mg PO Q6 PRN PRN Reason: fever/pain Last Admin: 06/12/17 08:12 Dose: 650 mg Cyanocobalamin (Vitamin B12 1000 Mcg Tab) 1,000 mcg PO DAILY [facility] Diphenhydramine HCl (Benadryl) 50 mg IVP Q6H PRN PRN Reason: Itching / Pruritus Last Admin: 06/13/17 16:09 Dose: 50 mg Ergocalciferol (Drisdol 50,000 Intl Units Cap) 1 cap PO QWK [facility] Erythromycin (Erythromycin) 250 mg PO Q8 [facility] Last Admin: 06/10/17 06:12 Dose: 250 mg Ferrous Sulfate (Feosol) 325 mg PO BID [facility] Folic Acid (Folic Acid) 1 mg PO DAILY [facility] Heparin Sodium (Porcine) (Heparin) 5,000 units SC Q8 [facility] Last Admin: 06/13/17 13:31 Dose: 5,000 units Hydralazine HCl (Apresoline) 10 mg IVP Q6H PRN PRN Reason: SBP >160 Last Admin: 06/13/17 16:09 Dose: 10 mg Levetiracetam 500 mg/ Sodium (Chloride) 105 mls @ 420 mls/hr IVPB Q12H [facility] Last Admin: 06/13/17 08:14 Dose: 420 mls/hr Sodium Chloride (Sodium Chloride 0.45%) 1,000 mls @ 150 mls/hr IV .Q6H40M [facility] Last Admin: 06/13/17 11:25 Dose: Not Given Potassium Chloride 80 meq/ (Dextrose/Sodium Chloride) 1,000 mls @ 100 mls/hr IV .Q10H [facility] Stop: 06/14/17 02:14 Insulin Glargine (Lantus) 15 unit SC HS [facility] Last Admin: 06/12/17 21:08 Dose: Not Given Insulin Human Regular (Novolin R) 0 unit SC Q6H [facility] PRN Reason: Protocol Last Admin: 06/13/17 13:31 Dose: 6 unit Labetalol HCl (Trandate) 200 mg PO BID [facility] Losartan Potassium (Cozaar) 25 mg PO DAILY [facility] Nifedipine (Procardia Xl) 60 mg PO DAILY [facility] Ondansetron HCl (Zofran Inj) 4 mg IVP Q8H [facility] Last Admin: 06/13/17 10:29 Dose: 4 mg Pantoprazole Sodium (Protonix Ec Tab) 40 mg PO DAILY [facility] Pantoprazole Sodium (Protonix Inj) 40 mg IVP Q12H [facility] Last Admin: 06/13/17 09:08 Dose: 40 mg Prochlorperazine (Compazine Tab) 5 mg PO Q6H [facility] Last Admin: 06/10/17 08:02 Dose: 5 mg - Labs Labs: 06/13/17 07:06 06/13/17 07:06 - Constitutional Appears: Non-toxic, No Acute Distress - Head Exam Head Exam: ATRAUMATIC, NORMOCEPHALIC - Eye Exam Eye Exam: EOMI - ENT Exam ENT Exam: Mucous Membranes Moist - Respiratory Exam Respiratory Exam: Clear to Ausculation Bilateral, NORMAL BREATHING PATTERN. absent: Accessory Muscle Use, Rales, Rhonchi, Wheezes, Respiratory Distress - Cardiovascular Exam Cardiovascular Exam: REGULAR RHYTHM, +S1 - GI/Abdominal Exam GI & Abdominal Exam: Soft, Normal Bowel Sounds. absent: Distended, Firm, Guarding, Rigid, Tenderness - Extremities Exam Extremities Exam: absent: Calf Tenderness, Pedal Edema - Neurological Exam Neurological Exam: Alert, Awake, Oriented x3 - Psychiatric Exam Psychiatric exam: Depressed - Skin Skin Exam: Dry, Warm Assessment and Plan - Assessment and Plan (Free Text) Plan: Possible Munchausen Syndrome Psychiatry consulted, Dr. New - help appreciated Patient's actions caused a large amount of resources (time from nurses and residents) to spent on her. She was told she needed to start acting appropriately. Patient is still acting inappropriately. 06/13/17 - Patient was evaluated by Psych yesterday, per the patient's mother. Awaiting recommendations. Patient is still wearing alcohol wipes on her nose. 06/12/17 - Patient is still stealing food and juices, self-inducing vomiting, faking seizures and now ripping up alcohol wipes and throwing them around her room. She is placing alcohol wipes and leaving them resting on her nose for unknown reasons. Patient is refusing to speak to Resident Emeka this morning at time of exam. She was instructed she needed to stop these actions as we can not have a repeat of yesterday. Patient rolled way from Dr. Hendrickson. 06/11/17 - She is stealing food and juices from the nutrition station even though she is NPO. She is also stealing drinks and food from her roommate's tray. She is then turning around and vomiting. She states she is not faking. [employer] system is present in room. They are reporting to the nurses that the patient is consistently sticking her fingers down her throat to induce vomiting. Resident Emeka told her to stop faking the seizures. She states she is not faking. When asked by Dr. King why she feels like she is having seizures, she stated "I get a birch of warmth. I don't know. Sometimes when my sugars get too low as well. I'm not really sure. It's just always how my seizures have been." When instructed that these are not consistent with real seizures, patient became up set. She apologized to Dr. Hendrickson, stating that she was sorry for her actions throughout the day. She states she will not do it anymore. Patient's mother was present during this conversation with Dr. King in the room. It was explained to the mother that this is believed to be all psych. The mother agrees. She states she just does not know what to do any longer. "My daughter needs mental help. I do not want to lose her." Dr. King instructed her that this is indeed a very important/dangerous issue and will need to be addressed by a psychiatrist. Nausea and vomiting secondary to gastroparesis Compazine 5mg PO q6h - hold due to dry heaving. Dilaudid 1mg IV Q8h prn - discontinued. No more pain medication of any type at this time. If patient is vomit free for 48 hours, can relook into pain medications but no more dilaudid for this hospital stay. Continue to monitor 1/2 NS @150mL/hr Uncontrolled diabetes mellitus A1c: 7.7 Hypoglycemia protocol ISS high dose Lantus 15 units HS (home medication) - restarted Accuchecks Continue to monitor Hypertensive urgency On admission: 238/130 Monitor on telemetry - sinus @119 bpm Continued home medications: Nifedipine 60mg daily, Losartan 25mg daily, labetalol 200mg PO BID - hold due to dry heaving. Hydralazine 10mg IV Q6 prn for SBP >160 Seizure hx of seizures and pseudo-seizures Home medication: Keppra 250mg PO BID- held due to vomiting Keppra 500mg IV Q12 Seizure precautions Continue to monitor Prophylactic measure SCDs, Heparin 5000u SC Q8 Protonix 40mg IVP daily Folic Acid 1mg PO daily - hold due to dry heaving. Ferrous Sulfate 325mg PO BID - hold due to dry heaving. Vitamin B12 1000mcg PO daily - hold due to dry heaving. Seizure precaution Telemetry Case discussed with Dr. Christine Cano Emeka PGY1
[2017-06-13] MEDS ORDERED: DEXTROSE IV SCH (17:30)
[2017-06-13] MEDS ORDERED: [UNRECOGNIZED DRUG - OTHER] IV SCH (17:30)
[2017-06-13 19:44] LABS: ABG ALLEN TEST POS; ARTERIAL BLOOD GAS HEMOGLOBIN 10.5 g/dL (11.7-17.4); ARTERIAL BLOOD GAS O2 SAT 97.4 % (95-98); ARTERIAL BLOOD GAS PCO2 32 mm/Hg (35-45); ARTERIAL BLOOD GAS PH 7.47 (7.35-7.45); ARTERIAL BLOOD GAS PO2 102 mm/Hg (80-100); ARTERIAL BLOOD GAS TCO2 24.3 mmol/L (22-28)
--- NOTE | 2017-06-13 20:13 | PCM.RRT ---
I.Reason for PURCHASING INTERNSHIP - A) Acute Change in Patient: Subjective: Patient is a 27 year female with past medical history past medical history of DM , HTN, gastroparesis, and seizure disorder (to include pseudo-seizure), for seizures and postictal state. On presentation, patient had a downward gaze that was easily correct by pulling on the patient's eyelids. 1mg of Ativan was given and patient responded and started to move her eyelids. Patient was deemed to be having a pseudoseizure. - Neurological Status (Select all that apply): Alert, Weakness - Respiratory Oxygen Delivery Method: Nasal Cannula @L/min - Constitutional Appears: No Acute Distress - Head Head Exam: ATRAUMATIC - Eyes Eye Exam: EOMI - Respiratory Exam Respiratory Exam: NORMAL BREATHING PATTERN - Cardiovascular Exam Cardiovascular Exam: Tachycardia, REGULAR RHYTHM, +S1, +S2 - GI/Abdominal Exam GI & Abdominal Exam: Soft, Normal Bowel Sounds - Neurological Exam Neurological Exam: Awake - Extremities Exam Extremities Exam: Normal Inspection Plan - Assessment of Findings&Treatment Plan Ativan 1mg IV Blood glucose within normal limits ABG: Normal Patient responded to ativan 1mg IV Psychiatry, Dr. New will be contacted tomorrow by day resident for follow up care PMD, Dr. King will be notified by [employer] Specialist
[2017-06-13] MEDS: (Lantus) Insulin Glargine, Recombinant SC SCH (22:46)
[2017-06-14] MEDS: (Novolin R) Insulin Human Regular 100 units/ml vial SC SCH ×4 (00:48→18:58)
[2017-06-14] MEDS: Sodium Chloride 0.45% 1,000 ML IV SCH ×4 (04:39→22:31)
[2017-06-14] MEDS: levETIRAcetam 500 MG in Sodium Chloride 0.9% 100 ML IVPB SCH ×2 (08:30→19:12)
[2017-06-14] MEDS ORDERED: Alum-Mag Hydrox-Simethicone Susp (30 mL) PO ONE (09:15)
[2017-06-14] MEDS: DiphenhydrAMINE 50 mg/ml Inj IVP PRN (09:26)
[2017-06-14 15:54] LABS: BASO % 0.3 % (0.0-2.0); EOS % 0.1 % (0.0-4.0); LYMPH % 32.5 % (20.0-40.0); MEAN CELL VOLUME 84.4 fL (81.0-99.0); MEAN CORPUSCULAR HEMOGLOBIN 28.5 pg (27.0-31.0); MEAN CORPUSCULAR HGB CONC 33.8 g/dL (33.0-37.0); MEAN PLATELET VOLUME 9.6 fL (7.2-11.7); MONO # 0.4 K/uL (0.0-0.8); MONO % 7.3 % (0.0-10.0); NEUT # 3.6 K/uL (1.8-7.0); NEUT % 59.8 % (50.0-75.0); RBC 3.52 Mil/uL (3.80-5.20); RED CELL DISTRIBUTION WIDTH 14.5 % (11.5-14.5)
[2017-06-14 16:11] LABS: ALB/GLOB RATIO 0.9 (1.0-2.1); ALBUMIN 2.2 g/dL (3.5-5.0); CALCIUM 7.9 mg/dl (8.6-10.4); MAGNESIUM 2.2 mg/dL (1.6-2.3)
--- NOTE | 2017-06-14 20:18 | CP.PCM.PN ---
Subjective - Date & Time of Evaluation Date of Evaluation: 06/14/17 Time of Evaluation: 09:00 - Subjective Subjective: PGY1 Medicine Note for Dr. King Patient seen and examined at bedside this morning. Patient is sleeping comfortably. 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 She is still faking seizures. She is still vomiting. She is crying asking if she can eat some. She is crying because she as something to calm her down. Objective - Vital Signs/Intake and Output Vital Signs (last 24 hours): Temp Pulse Resp BP Pulse Ox 98.2 F 92 H 18 161/113 H 100 06/14/17 16:02 06/14/17 18:00 06/14/17 16:02 06/14/17 16:02 06/14/17 16:02 Intake and Output: 06/14/17 06/15/17 18:59 06:59 Intake Total 2700 Balance 2700 - Medications Medications: Current Medications Acetaminophen (Tylenol 325mg Tab) 650 mg PO Q6 PRN PRN Reason: fever/pain Last Admin: 06/13/17 23:50 Dose: 650 mg Cyanocobalamin (Vitamin B12 1000 Mcg Tab) 1,000 mcg PO DAILY [facility] Diphenhydramine HCl (Benadryl) 50 mg IVP Q6H PRN PRN Reason: Itching / Pruritus Last Admin: 06/14/17 09:26 Dose: 50 mg Ergocalciferol (Drisdol 50,000 Intl Units Cap) 1 cap PO QWK [facility] Erythromycin (Erythromycin) 250 mg PO Q8 [facility] Last Admin: 06/10/17 06:12 Dose: 250 mg Ferrous Sulfate (Feosol) 325 mg PO BID [facility] Folic Acid (Folic Acid) 1 mg PO DAILY [facility] Heparin Sodium (Porcine) (Heparin) 5,000 units SC Q8 [facility] Last Admin: 06/14/17 13:42 Dose: 5,000 units Hydralazine HCl (Apresoline) 10 mg IVP Q6H PRN PRN Reason: SBP >160 Last Admin: 06/14/17 19:11 Dose: 10 mg Levetiracetam 500 mg/ Sodium (Chloride) 105 mls @ 420 mls/hr IVPB Q12H [facility] Last Admin: 06/14/17 19:12 Dose: 420 mls/hr Sodium Chloride (Sodium Chloride 0.45%) 1,000 mls @ 150 mls/hr IV .Q6H40M [facility] Last Admin: 06/14/17 13:44 Dose: 150 mls/hr Potassium Chloride (Potassium Chloride 20 Meq/100 Ml) 20 meq in 100 mls @ 50 mls/hr IVPB Q2H [facility] Stop: 06/14/17 23:59 Insulin Glargine (Lantus) 15 unit SC HS [facility] Last Admin: 06/13/17 22:46 Dose: Not Given Insulin Human Regular (Novolin R) 0 unit SC Q6H [facility] PRN Reason: Protocol Last Admin: 06/14/17 18:58 Dose: Not Given Labetalol HCl (Trandate) 200 mg PO BID [facility] Losartan Potassium (Cozaar) 25 mg PO DAILY [facility] Nifedipine (Procardia Xl) 60 mg PO DAILY [facility] Ondansetron HCl (Zofran Inj) 4 mg IVP Q8H [facility] Last Admin: 06/14/17 19:12 Dose: 4 mg Pantoprazole Sodium (Protonix Ec Tab) 40 mg PO DAILY [facility] Pantoprazole Sodium (Protonix Inj) 40 mg IVP Q12H [facility] Last Admin: 06/14/17 09:26 Dose: 40 mg Prochlorperazine (Compazine Tab) 5 mg PO Q6H [facility] Last Admin: 06/10/17 08:02 Dose: 5 mg - Labs Labs: 06/14/17 15:44 06/14/17 15:44 - Constitutional Appears: Non-toxic, No Acute Distress - Head Exam Head Exam: ATRAUMATIC, NORMOCEPHALIC - Eye Exam Eye Exam: EOMI, Normal appearance, PERRL Pupil Exam: NORMAL ACCOMODATION - ENT Exam ENT Exam: Mucous Membranes Moist - Neck Exam Neck Exam: Full ROM - Respiratory Exam Respiratory Exam: Clear to Ausculation Bilateral, NORMAL BREATHING PATTERN. absent: Rales, Wheezes, Respiratory Distress - Cardiovascular Exam Cardiovascular Exam: REGULAR RHYTHM, +S1, +S2 - GI/Abdominal Exam GI & Abdominal Exam: Soft, Tenderness (left epigastric). absent: Distended, Firm, Guarding, Rigid - Exam Exam: Circumcision, Scrotal Swelling - Extremities Exam Extremities Exam: Calf Tenderness, Normal Inspection - Neurological Exam Neurological Exam: Alert, Awake, Oriented x3 - Psychiatric Exam Psychiatric exam: Agitated, Anxious, Depressed - Skin Skin Exam: Dry, Warm Assessment and Plan - Assessment and Plan (Free Text) Plan: Psychiatry consulted, Dr. New - help appreciated Patient's actions cause a large amount of resources (time from nurses and residents) to be spent on her. She was told she needed to start acting appropriately. Patient is still acting inappropriately. 06/14/17 - No roller inspector and mender throughout the day. Patient started on clear liquid diet. Awaiting psych eval. 06/13/17 - Patient was evaluated by Psych yesterday, per the patient's mother. Awaiting recommendations. Patient is still wearing alcohol wipes on her nose. 06/12/17 - Patient is still stealing food and juices, self-inducing vomiting, faking seizures and now ripping up alcohol wipes and throwing them around her room. She is placing alcohol wipes and leaving them resting on her nose for unknown reasons. Patient is refusing to speak to Resident Emeka this morning at time of exam. She was instructed she needed to stop these actions as we can not have a repeat of yesterday. Patient rolled way from Dr. Hendrickson. 06/11/17 - She is stealing food and juices from the nutrition station even though she is NPO. She is also stealing drinks and food from her roommate's tray. She is then turning around and vomiting. She states she is not faking. [employer] system is present in room. They are reporting to the nurses that the patient is consistently sticking her fingers down her throat to induce vomiting. Resident Emeka told her to stop faking the seizures. She states she is not faking. When asked by Dr. King why she feels like she is having seizures, she stated "I get a birch of warmth. I don't know. Sometimes when my sugars get too low as well. I'm not really sure. It's just always how my seizures have been." When instructed that these are not consistent with real seizures, patient became up set. She apologized to Dr. Hendrickson, stating that she was sorry for her actions throughout the day. She states she will not do it anymore. Patient's mother was present during this conversation with Dr. King in the room. It was explained to the mother that this is believed to be all psych. The mother agrees. She states she just does not know what to do any longer. "My daughter needs mental help. I do not want to lose her." Dr. King instructed her that this is indeed a very important/dangerous issue and will need to be addressed by a psychiatrist. Nausea and vomiting secondary to gastroparesis Compazine 5mg PO q6h - hold due to dry heaving. Dilaudid 1mg IV Q8h prn - discontinued. No more pain medication of any type at this time. If patient is vomit free for 48 hours, can relook into pain medications but no more dilaudid for this hospital stay. Continue to monitor 1/2 NS @150mL/hr Uncontrolled diabetes mellitus A1c: 7.7 Hypoglycemia protocol ISS high dose Lantus 15 units HS (home medication) - restarted Accuchecks Continue to monitor Hypertensive urgency On admission: 238/130 Monitor on telemetry - sinus @119 bpm Continued home medications: Nifedipine 60mg daily, Losartan 25mg daily, labetalol 200mg PO BID - hold due to dry heaving. Hydralazine 10mg IV Q6 prn for SBP >160 Seizure hx of seizures and pseudo-seizures Home medication: Keppra 250mg PO BID- held due to vomiting Keppra 500mg IV Q12 Seizure precautions Continue to monitor Prophylactic measure SCDs, Heparin 5000u SC Q8 Protonix 40mg IVP daily Folic Acid 1mg PO daily - hold due to dry heaving. Ferrous Sulfate 325mg PO BID - hold due to dry heaving. Vitamin B12 1000mcg PO daily - hold due to dry heaving. Seizure precaution Telemetry Case discussed with Dr. Christine Cano Emeka PGY1
[2017-06-14] MEDS: (Lantus) Insulin Glargine, Recombinant SC SCH (22:18)
[2017-06-15] MEDS: Sodium Chloride 0.45% 1,000 ML IV SCH ×5 (01:03→23:38)
[2017-06-15] MEDS: DiphenhydrAMINE 50 mg/ml Inj IVP PRN ×3 (01:03→22:33)
[2017-06-15] MEDS: (Novolin R) Insulin Human Regular 100 units/ml vial SC SCH ×4 (01:58→20:00)
[2017-06-15] MEDS: levETIRAcetam 500 MG in Sodium Chloride 0.9% 100 ML IVPB SCH ×2 (08:45→19:01)
--- NOTE | 2017-06-15 09:51 | CP.PCM.PN ---
Subjective - Date & Time of Evaluation Date of Evaluation: 06/15/17 Time of Evaluation: 07:00 - Subjective Subjective: PGY1- Medicine Note for Dr. King Patient seen and examined at bedside and in no acute distress. Patient says she is feeling better today. Patient denies chest pain, shortness of breath, abdominal pain, nausea, vomiting, constipation or diarrhea. Objective - Vital Signs/Intake and Output Vital Signs (last 24 hours): Temp Pulse Resp BP Pulse Ox 98.8 F 85 20 145/91 H 98 06/15/17 08:00 06/15/17 08:00 06/15/17 08:00 06/15/17 08:00 06/15/17 08:00 - Medications Medications: Current Medications Acetaminophen (Tylenol 325mg Tab) 650 mg PO Q6 PRN PRN Reason: fever/pain Last Admin: 06/13/17 23:50 Dose: 650 mg Cyanocobalamin (Vitamin B12 1000 Mcg Tab) 1,000 mcg PO DAILY [facility] Diphenhydramine HCl (Benadryl) 50 mg IVP Q6H PRN PRN Reason: Itching / Pruritus Last Admin: 06/15/17 01:03 Dose: 50 mg Ergocalciferol (Drisdol 50,000 Intl Units Cap) 1 cap PO QWK [facility] Erythromycin (Erythromycin) 250 mg PO Q8 [facility] Last Admin: 06/10/17 06:12 Dose: 250 mg Ferrous Sulfate (Feosol) 325 mg PO BID [facility] Folic Acid (Folic Acid) 1 mg PO DAILY [facility] Heparin Sodium (Porcine) (Heparin) 5,000 units SC Q8 [facility] Last Admin: 06/15/17 05:11 Dose: 5,000 units Hydralazine HCl (Apresoline) 10 mg IVP Q6H PRN PRN Reason: SBP >160 Last Admin: 06/14/17 19:11 Dose: 10 mg Levetiracetam 500 mg/ Sodium (Chloride) 105 mls @ 420 mls/hr IVPB Q12H [facility] Last Admin: 06/15/17 08:45 Dose: 420 mls/hr Sodium Chloride (Sodium Chloride 0.45%) 1,000 mls @ 150 mls/hr IV .Q6H40M [facility] Last Admin: 06/15/17 08:44 Dose: 150 mls/hr Insulin Glargine (Lantus) 15 unit SC HS [facility] Last Admin: 06/14/17 22:18 Dose: Not Given Insulin Human Regular (Novolin R) 0 unit SC Q6H [facility] PRN Reason: Protocol Last Admin: 06/15/17 08:30 Dose: 6 unit Labetalol HCl (Trandate) 200 mg PO BID [facility] Losartan Potassium (Cozaar) 25 mg PO DAILY [facility] Nifedipine (Procardia Xl) 60 mg PO DAILY [facility] Ondansetron HCl (Zofran Inj) 4 mg IVP Q8H [facility] Last Admin: 06/15/17 02:43 Dose: 4 mg Pantoprazole Sodium (Protonix Ec Tab) 40 mg PO DAILY [facility] Pantoprazole Sodium (Protonix Inj) 40 mg IVP Q12H [facility] Last Admin: 06/15/17 09:35 Dose: 40 mg Prochlorperazine (Compazine Tab) 5 mg PO Q6H [facility] Last Admin: 06/10/17 08:02 Dose: 5 mg - Labs Labs: 06/14/17 15:44 06/14/17 15:44 - Constitutional Appears: Non-toxic, No Acute Distress - Head Exam Head Exam: ATRAUMATIC, NORMAL INSPECTION, NORMOCEPHALIC - Eye Exam Eye Exam: EOMI, Normal appearance - ENT Exam ENT Exam: Mucous Membranes Dry - Respiratory Exam Respiratory Exam: Clear to Ausculation Bilateral, NORMAL BREATHING PATTERN. absent: Rales, Rhonchi, Wheezes, Respiratory Distress, Stridor - Cardiovascular Exam Cardiovascular Exam: REGULAR RHYTHM, RRR, +S1, +S2 - GI/Abdominal Exam GI & Abdominal Exam: Soft, Normal Bowel Sounds. absent: Tenderness - Extremities Exam Extremities Exam: Full ROM, Normal Inspection. absent: Pedal Edema Additional comments: non pitting hand and arm edema b/l - Neurological Exam Neurological Exam: Alert, Awake, Oriented x3 - Psychiatric Exam Psychiatric exam: Normal Affect, Normal Mood - Skin Skin Exam: Intact, Normal Color, Warm Assessment and Plan - Assessment and Plan (Free Text) Assessment: Pseudo- seizures, Depression Psychiatry consulted, Dr. New - help appreciated Patient's actions cause a large amount of resources (time from nurses and residents) to be spent on her. She was told she needed to start acting appropriately. Patient is still acting inappropriately. 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 Patient started on clear liquid diet. Awaiting psych eval. 06/13/17 - Patient was evaluated by Psych yesterday, per the patient's mother. Awaiting recommendations. Patient is still wearing alcohol wipes on her nose. 06/12/17 - Patient is still stealing food and juices, self-inducing vomiting, faking seizures and now ripping up alcohol wipes and throwing them around her room. She is placing alcohol wipes and leaving them resting on her nose for unknown reasons. Patient is refusing to speak to Resident Emeka this morning at time of exam. She was instructed she needed to stop these actions as we can not have a repeat of yesterday. Patient rolled way from Dr. Hendrickson. 06/11/17 - She is stealing food and juices from the nutrition station even though she is NPO. She is also stealing drinks and food from her roommate's tray. She is then turning around and vomiting. She states she is not faking. [employer] system is present in room. They are reporting to the nurses that the patient is consistently sticking her fingers down her throat to induce vomiting. Resident Emeka told her to stop faking the seizures. She states she is not faking. When asked by Dr. King why she feels like she is having seizures, she stated "I get a birch of warmth. I don't know. Sometimes when my sugars get too low as well. I'm not really sure. It's just always how my seizures have been." When instructed that these are not consistent with real seizures, patient became up set. She apologized to Dr. Hendrickson, stating that she was sorry for her actions throughout the day. She states she will not do it anymore. Patient's mother was present during this conversation with Dr. King in the room. It was explained to the mother that this is believed to be all psych. The mother agrees. She states she just does not know what to do any longer. "My daughter needs mental help. I do not want to lose her." Dr. King instructed her that this is indeed a very important/dangerous issue and will need to be addressed by a psychiatrist. Nausea and vomiting secondary to gastroparesis Compazine 5mg PO q6h - hold due to dry heaving. Dilaudid 1mg IV Q8h prn - discontinued. No more pain medication of any type at this time. If patient is vomit free for 48 hours, can relook into pain medications but no more dilaudid for this hospital stay. Continue to monitor 1/2 NS decreased to 75mL/hr on 06/15/16 Uncontrolled diabetes mellitus A1c: 7.7 Hypoglycemia protocol ISS high dose Lantus 15 units HS (home medication) - restarted Accuchecks Continue to monitor Hypertensive urgency On admission: 238/130 Monitor on telemetry - sinus @119 bpm Continued home medications: Nifedipine 60mg daily, Losartan 25mg daily, labetalol 200mg PO BID - hold due to dry heaving. Hydralazine 10mg IV Q6 prn for SBP >160 Seizure hx of seizures and pseudo-seizures Home medication: Keppra 250mg PO BID- held due to vomiting Keppra 500mg IV Q12 Seizure precautions Continue to monitor Prophylactic measure SCDs, Heparin 5000u SC Q8 Protonix 40mg IVP daily Folic Acid 1mg PO daily - hold due to dry heaving. Ferrous Sulfate 325mg PO BID - hold due to dry heaving. Vitamin B12 1000mcg PO daily - hold due to dry heaving. Seizure precaution Telemetry Diabetic Diet Case discussed with Dr. Christine Toro, PGY1
[2017-06-15 11:38] LABS: BASO % 0.6 % (0.0-2.0); EOS % 0.7 % (0.0-4.0); LYMPH # 2.5 K/uL (1.0-4.3); LYMPH % 35.8 % (20.0-40.0); MEAN CELL VOLUME 84.9 fL (81.0-99.0); MEAN CORPUSCULAR HEMOGLOBIN 28.5 pg (27.0-31.0); MEAN CORPUSCULAR HGB CONC 33.5 g/dL (33.0-37.0); MEAN PLATELET VOLUME 10.1 fL (7.2-11.7); MONO # 0.5 K/uL (0.0-0.8); MONO % 6.6 % (0.0-10.0); NEUT % 56.3 % (50.0-75.0); RBC 3.5 Mil/uL (3.80-5.20); RED CELL DISTRIBUTION WIDTH 14.3 % (11.5-14.5); WHITE BLOOD COUNT 7.1 K/uL (4.8-10.8)
[2017-06-15 11:45] LABS: ALB/GLOB RATIO 0.9 (1.0-2.1); ALBUMIN 2.1 g/dL (3.5-5.0); CALCIUM 7.6 mg/dl (8.6-10.4); MAGNESIUM 1.8 mg/dL (1.6-2.3)
[2017-06-15] MEDS: (Lantus) Insulin Glargine, Recombinant SC SCH (22:34)
[2017-06-16] MEDS: (Novolin R) Insulin Human Regular 100 units/ml vial SC SCH ×4 (01:56→19:45)
[2017-06-16] MEDS: DiphenhydrAMINE 50 mg/ml Inj IVP PRN ×3 (05:42→22:34)
[2017-06-16 07:38] LABS: ALB/GLOB RATIO 1.1 (1.0-2.1); ALBUMIN 2.6 g/dL (3.5-5.0); MAGNESIUM 1.8 mg/dL (1.6-2.3)
[2017-06-16 07:46] LABS: BASO # 0.1 K/uL (0.0-0.2); BASO % 0.7 % (0.0-2.0); EOS # 0.2 K/uL (0.0-0.7); EOS % 2.5 % (0.0-4.0); HEMOGLOBIN 11.3 g/dL (11.0-16.0); LYMPH # 4.2 K/uL (1.0-4.3); LYMPH % 45.5 % (20.0-40.0); MEAN CELL VOLUME 84.6 fL (81.0-99.0); MEAN CORPUSCULAR HEMOGLOBIN 28.5 pg (27.0-31.0); MEAN CORPUSCULAR HGB CONC 33.7 g/dL (33.0-37.0); MEAN PLATELET VOLUME 10.3 fL (7.2-11.7); MONO # 0.5 K/uL (0.0-0.8); MONO % 5.7 % (0.0-10.0); NEUT # 4.2 K/uL (1.8-7.0); NEUT % 45.6 % (50.0-75.0); NRBC % 0.2 % (0.0-2.0); RBC 3.95 Mil/uL (3.80-5.20); RED CELL DISTRIBUTION WIDTH 14.2 % (11.5-14.5); WHITE BLOOD COUNT 9.1 K/uL (4.8-10.8)
[2017-06-16] MEDS: levETIRAcetam 500 MG in Sodium Chloride 0.9% 100 ML IVPB SCH ×2 (08:10→19:34)
[2017-06-16] MEDS: Ergocalciferol 50,000 Intl Units Cap PO SCH (10:13)
--- NOTE | 2017-06-16 17:36 | PCM.PSYCH ---
Initial Psychiatric Evaluation - Initial Psychiatric Evaluation Type of Admission: Voluntary Legal Status: Capacity Chief Complaint (in patient's own words): I am feeling nauseas.' History of Present Illness and Precipitating Events: Patient is a 27 year old female with a past medical history of DM, HTN, gastroparesis, and seizure disorder (to include pseudo-seizure), who presents to the ED with complaints of vomiting, nausea, and gastroparesis. Patient was discharged from [facility] yesterday for similar complaints, and was hospitalized for 9 days. Today pt was consulted. Circular Gang Saw Operator is familiar with the patient. Pt has been hospitalized multiple times on the medical floor because of similar complaints in the past. As per the pt, she can not stop nausea and vomiting. She continued to induce vomiting during the interview. She appeared somewhat disorganized during the interview. She reports of depressed mood, feelings of helplessness and poor sleep. She also reports poor sleep. However, she denies any SI/HI or any AVH. As per the mother, she is becoming increasingly depressed and sick since past few years, soon after her separation from her ex . PMH: DM, HTN, gastroparesis, pseudo-seizure Current Medications: Active Medications Generic Name Dose Route Start Last Admin Trade Name Freq PRN Reason Stop Dose Admin Acetaminophen 650 mg 06/09/17 19:39 06/13/17 23:50 Tylenol 325mg Tab PO 650 mg Q6 PRN Administration fever/pain Benztropine Mesylate 1 mg 06/16/17 13:00 06/16/17 13:40 Cogentin IM 1 mg BID KELVIN Administration Cyanocobalamin 1,000 mcg 06/10/17 10:00 Vitamin B12 1000 Mcg Tab PO DAILY KELVIN Diphenhydramine HCl 50 mg 06/12/17 15:00 06/16/17 11:33 Benadryl IVP 50 mg Q6H PRN Administration Itching / Pruritus Ergocalciferol 1 cap 06/16/17 10:00 06/16/17 10:13 Drisdol 50,000 Intl Units Cap PO Not Given QWK KELVIN Erythromycin 250 mg 06/09/17 22:00 06/10/17 06:12 Erythromycin PO 250 mg Q8 KELVIN Administration Ferrous Sulfate 325 mg 06/10/17 10:00 Feosol PO BID KELVIN Folic Acid 1 mg 06/10/17 10:00 Folic Acid PO DAILY KELVIN Haloperidol Lactate 5 mg 06/16/17 13:00 06/16/17 13:47 Haldol IM 5 mg BID KELVIN Administration Heparin Sodium (Porcine) 5,000 units 06/09/17 22:00 06/16/17 13:47 Heparin SC 5,000 units Q8 KELVIN Administration Hydralazine HCl 10 mg 06/09/17 19:35 06/16/17 09:35 Apresoline IVP 10 mg Q6H PRN Administration SBP >160 Levetiracetam 500 mg/ Sodium 105 mls @ 420 mls/hr 06/09/17 20:00 06/16/17 08: 10 Chloride IVPB 420 mls/hr Q12H KELVIN Administration Sodium Chloride 1,000 mls @ 75 mls/hr 06/15/17 14:44 06/15/17 23:38 Sodium Chloride 0.45% IV 75 mls/hr .[id number] KELVIN Administration Insulin Glargine 15 unit 06/10/17 22:00 06/15/17 22:34 Lantus SC 15 u HS KELVIN Administration Insulin Human Regular 0 unit 06/09/17 19:45 06/16/17 13:46 Novolin R SC 10 unit Q6H KELVIN Administration Protocol Labetalol HCl 200 mg 06/10/17 10:00 Trandate PO BID KELVIN Losartan Potassium 25 mg 06/10/17 10:00 Cozaar PO DAILY KELVIN Nifedipine 60 mg 06/10/17 10:00 Procardia Xl PO DAILY KELVIN Ondansetron HCl 4 mg 06/11/17 11:00 06/16/17 11:16 Zofran Inj IVP 4 mg Q8H KELVIN Administration Pantoprazole Sodium 40 mg 06/10/17 10:00 Protonix Ec Tab PO DAILY KELVIN Pantoprazole Sodium 40 mg 06/10/17 10:00 06/16/17 09:32 Protonix Inj IVP 40 mg Q12H KELVIN Administration Prochlorperazine 5 mg 06/09/17 19:45 06/10/17 08:02 Compazine Tab PO 5 mg Q6H KELVIN Administration Sertraline HCl 50 mg 06/15/17 22:00 06/15/17 22:33 Zoloft PO 50 mg HS KELVIN Administration Past Psychiatric History - Past Psychiatric History Previous Treatment History: None Pertinent Medical Hx (Current Medical&Sleep Prob, Allergies): Allergies Allergy/AdvReac Type Severity Reaction Status Date / Time No Known Allergies Allergy Verified 04/03/17 09:42 Cyanocobalamin [Vitamin B12 1000 mcg Tab] 1,000 mcg PO DAILY 10/16/16 Ferrous Sulfate [Feosol] 325 mg PO BID 12/07/16 Insulin Glargine, Recombina [Lantus] 15 unit SC HS 03/09/17 Insulin Lispro [Humalog (Insulin Lispro)] 10 units SC TIDPC 03/09/17 Labetalol [Trandate] 200 mg PO BID 30 Days #60 tab 03/21/17 Ergocalciferol (Vitamin D2) [Vitamin D2] 50,000 unit PO QWK 03/30/17 Folic Acid 1 mg PO DAILY 03/30/17 Levetiracetam [Keppra] 250 mg PO BID 03/30/17 Losartan [Cozaar] 25 mg PO DAILY 05/31/17 Erythromycin 250 mg PO Q8 #12 tab 06/08/17 NIFEdipine ER [Procardia XL] 60 mg PO DAILY 30 Days #30 ter 06/08/17 Pantoprazole [Protonix] 40 mg PO DAILY #30 ect 06/08/17 Review of Systems - Review of Systems All systems: reviewed and no additional remarkable complaints except - Psychiatric Psychiatric: Anxiety, Irritability. absent: Auditory Hallucinations, Suicidal Ideation Mental Status Examination - Personal Presentation Personal Presentation: Looks stated age - Affect Affect: Constricted, Depressed - Motor Activity Motor Activity: Psychomotor Retardation - Reliability in Providing Information Reliability in Providing Information: Poor, due to altered mood - Speech Speech: Disorganized - Mood Mood: Depressed, Anxious - Formal Thought Process Formal Thought Process: Loosening of associations - Obsessions/Compulsions Obsessions: No Compulsions: No - Cognitive Functions Orientation: Person, Place, Situation, Time Sensorium: Alert Attention/Concentration: Attentive Abstract Thinking: [place] Estimate of Intelligence: Below average Judgement: Imparied, as evidence by: Poor judgement, Imparied, as evidence by: Lack of insight into illness - Risk Risk: Diminished functioning - Strength & Assets Inventory Strength & Assets Inventory: Family support DSM 5 DX - DSM 5 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
--- NOTE | 2017-06-16 17:37 | PCM.PYCHPN ---
Psychiatric Progress Note - Psychiatric Progress Note Patient seen today, length of contact: 15 min Patient Chief Complaint: I am feeling nauseas.' Problems Identified/Issues Discussed: Patient seen and examined at bedside. Patient remained disorganized and internally preoccupied. Patient still appears depressed and delusional. Patient is still sticking her fingers down her throat and faking seizures. Patient is still very labile and tearful. However, she denies any SI/HI/AVH. She is still vomiting out all the meds. She needs more time for stabilization. Medication Change: Yes (start haldol ) Medical Record Reviewed: Yes Mental Status Examination - Cognitive Function Orientation: Person, Place, Situation, Time Memory: Intact Attention: WNL Concentration: Poor Association: Loose Fund of Knowledge: Poor - Mood Mood: Depressed, Anxious - Affect Affect: Constricted, Depressed - Speech Speech: Soft - Formal Thought Process Formal Thought Process: Delusions, Loosening of associations - Suicidal Ideation Suicidal Ideation: No - Homicidal Ideation Homicidal Ideation: No Goal/Treatment Plan - Goal/Treatment Plan Need for Continued Stay: Discharge may exacerbated symptoms, Severe functional impairment Progress Toward Problem(s) and Goals/Treatment Plan: Munchenhausen syndrome r/o Major depressive disorder with psychotic features CBT Psychoeducation Supportive therapy, group therapy, individual therapy Benadryl 50 mg I/M q 6 hr prn Start Haldol 5 mg I/M BID DM Continue prescribed meds - Smoking Cessation Smoking Cessation Initiated: No
--- NOTE | 2017-06-16 17:47 | CP.PCM.PN ---
Subjective - Date & Time of Evaluation Date of Evaluation: 06/16/17 Time of Evaluation: 07:35 - Subjective Subjective: PGY1 Medicine Note for Dr. King Patient seen and examined at bedside this morning. Upon walking into the room, the patient is actively vomiting. Patient states that she was able to eat yesterday with no problem. She ate dinner last night and her stomach has been upset ever since. Patient began crying saying that she needs pain medicine. She states that she does not want any food and will refuse all medications by mouth. Patient states she has not stolen any more food from the nutrition station and apologized for stealing food before. Objective - Vital Signs/Intake and Output Vital Signs (last 24 hours): Temp Pulse Resp BP Pulse Ox 98.4 F 94 H 20 122/85 100 06/16/17 16:16 06/16/17 16:16 06/16/17 16:16 06/16/17 16:16 06/16/17 16:16 Intake and Output: 06/16/17 06/16/17 06:59 18:59 Intake Total 1000 Balance 1000 - Medications Medications: Current Medications Acetaminophen (Tylenol 325mg Tab) 650 mg PO Q6 PRN PRN Reason: fever/pain Last Admin: 06/13/17 23:50 Dose: 650 mg Benztropine Mesylate (Cogentin) 1 mg IM BID ON LICENSE OF [facility] Last Admin: 06/16/17 13:40 Dose: 1 mg Cyanocobalamin (Vitamin B12 1000 Mcg Tab) 1,000 mcg PO DAILY ON LICENSE OF [facility] Diphenhydramine HCl (Benadryl) 50 mg IVP Q6H PRN PRN Reason: Itching / Pruritus Last Admin: 06/16/17 11:33 Dose: 50 mg Ergocalciferol (Drisdol 50,000 Intl Units Cap) 1 cap PO QWK ON LICENSE OF [facility] Last Admin: 06/16/17 10:13 Dose: Not Given Erythromycin (Erythromycin) 250 mg PO Q8 ON LICENSE OF [facility] Last Admin: 06/10/17 06:12 Dose: 250 mg Ferrous Sulfate (Feosol) 325 mg PO BID ON LICENSE [facility] Folic Acid (Folic Acid) 1 mg PO DAILY ON LICENSE OF [facility] Haloperidol Lactate (Haldol) 5 mg IM BID ON LICENSE OF [facility] Last Admin: 06/16/17 13:47 Dose: 5 mg Heparin Sodium (Porcine) (Heparin) 5,000 units SC Q8 ON LICENSE OF [facility] Last Admin: 06/16/17 13:47 Dose: 5,000 units Hydralazine HCl (Apresoline) 10 mg IVP Q6H PRN PRN Reason: SBP >160 Last Admin: 06/16/17 09:35 Dose: 10 mg Levetiracetam 500 mg/ Sodium (Chloride) 105 mls @ 420 mls/hr IVPB Q12H ON LICENSE OF [facility] Last Admin: 06/16/17 08:10 Dose: 420 mls/hr Sodium Chloride (Sodium Chloride 0.45%) 1,000 mls @ 75 mls/hr IV .[id number] ON LICENSE OF [facility] Last Admin: 06/15/17 23:38 Dose: 75 mls/hr Insulin Glargine (Lantus) 15 unit SC [facility] Last Admin: 06/15/17 22:34 Dose: 15 u Insulin Human Regular (Novolin R) 0 unit SC Q6H KELVIN PRN Reason: Protocol Last Admin: 06/16/17 13:46 Dose: 10 unit Labetalol HCl (Trandate) 200 mg PO BID ON [facility] Losartan Potassium (Cozaar) 25 mg PO DAILY ON LICENSE OF [facility] Nifedipine (Procardia Xl) 60 mg PO DAILY ON LICENSE [facility] Ondansetron HCl (Zofran Inj) 4 mg IVP Q8H ON LICENSE OF [facility] Last Admin: 06/16/17 11:16 Dose: 4 mg Pantoprazole Sodium (Protonix Ec Tab) 40 mg PO DAILY ON [facility] Pantoprazole Sodium (Protonix Inj) 40 mg IVP Q12H ON [facility] Last Admin: 06/16/17 09:32 Dose: 40 mg Prochlorperazine (Compazine Tab) 5 mg PO Q6H ON LICENSE [facility] Last Admin: 06/10/17 08:02 Dose: 5 mg Sertraline HCl (Zoloft) 50 mg PO [facility] Last Admin: 06/15/17 22:33 Dose: 50 mg - Labs Labs: 06/16/17 07:04 06/16/17 07:04 - Constitutional Appears: Other (actively vomiting and crying for pain medications) - Head Exam Head Exam: ATRAUMATIC, NORMOCEPHALIC - Eye Exam Eye Exam: EOMI, Normal appearance - ENT Exam ENT Exam: Mucous Membranes Moist - Respiratory Exam Respiratory Exam: Clear to Ausculation Bilateral, NORMAL BREATHING PATTERN. absent: Accessory Muscle Use, Rales, Rhonchi, Wheezes, Respiratory Distress - Cardiovascular Exam Cardiovascular Exam: REGULAR RHYTHM, +S1, +S2 - GI/Abdominal Exam GI & Abdominal Exam: Soft, Tenderness (diffuse, epigastric = worst), Normal Bowel Sounds. absent: Distended, Firm, Guarding, Rigid - Extremities Exam Extremities Exam: absent: Calf Tenderness, Pedal Edema - Neurological Exam Neurological Exam: Alert, Awake, Oriented x3 - Psychiatric Exam Psychiatric exam: Agitated (crying asking for pain medications) - Skin Skin Exam: Dry, Warm Assessment and Plan - Assessment and Plan (Free Text) Plan: Pseudo-seizures, Depression - Munchausen Syndrome Psychiatry consulted, Dr. New - help appreciated 06/16/17 - Patient has not attempted any "seizures" today. Spoke with Dr. New about patient today. Patient was started on Haldol 5mg IM BID and Cogentin 1mg IM BID. Patient has extensive history of acting out (stealing juices/other peoples food when she is NPO, crying for pain medications constantly), faking symptoms (ie stating she is having a seizure when she is simultaneously requesting Ativan (by name) and actively shaking), causing damage to herself ( misuse of her insulin, taking insulin then refusing to eat or refusing to take her insulin and eating/drinking a lot of sugar to increase her glucose levels to get admitted.). Due to this extensive history and the patient actively doing damage to her health, it is our recommendation that the patient be transferred to inpatient psych. [facility] [place] psych has been called and case discussed with nurse Jimenez . Nurse Jimenez stated that a physician will be sent over to evaluate patient today. Patient's mother and sister, Urszula, were at bedside today. Resident Emeka discussed the plan and they both agree with the current suggestion of inpatient psych treatment. Urszula (sister) "She has always had stomach problems but things have just been getting worse and worse over the past two to three years. Our relationship has deteriorated over the past year and a half because she will not listen to me. I can see how it is affecting my mom. The patient's mother stated "Everytime we leave the hospital she is feeling better. I make sure she takes her insulin and everything seems to be ok. But once we get home she leaves and goes out with her friends. She fights with me and won't take her medications. She has stated, "I am tired. I am ok if I ." Mother and sister both support the patient being transferred to inpatient psych because they have seen a steady decline in her health and mental state as she is acting out more and more often. 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 Patient started on clear liquid diet. Awaiting psych eval. 06/13/17 - Patient was evaluated by Psych yesterday, per the patient's mother. Awaiting recommendations. Patient is still wearing alcohol wipes on her nose. 06/12/17 - Patient is still stealing food and juices, self-inducing vomiting, faking seizures and now ripping up alcohol wipes and throwing them around her room. She is placing alcohol wipes and leaving them resting on her nose for unknown reasons. Patient is refusing to speak to Resident Emeka this morning at time of exam. She was instructed she needed to stop these actions as we can not have a repeat of yesterday. Patient rolled way from Dr. Hendrickson. 06/11/17 - She is stealing food and juices from the nutrition station even though she is NPO. She is also stealing drinks and food from her roommate's tray. She is then turning around and vomiting. She states she is not faking. [employer] system is present in room. They are reporting to the nurses that the patient is consistently sticking her fingers down her throat to induce vomiting. Resident Emeka told her to stop faking the seizures. She states she is not faking. When asked by Dr. King why she feels like she is having seizures, she stated "I get a birch of warmth. I don't know. Sometimes when my sugars get too low as well. I'm not really sure. It's just always how my seizures have been." When instructed that these are not consistent with real seizures, patient became up set. She apologized to Dr. Hendrickson, stating that she was sorry for her actions throughout the day. She states she will not do it anymore. Patient's mother was present during this conversation with Dr. King in the room. It was explained to the mother that this is believed to be all psych. The mother agrees. She states she just does not know what to do any longer. "My daughter needs mental help. I do not want to lose her." Dr. King instructed her that this is indeed a very important/dangerous issue and will need to be addressed by a psychiatrist. Current medications: Haldol 5mg IM BID Cogentin 1mg IM BID Benadryl 50mg IVP q6h prn Nausea and vomiting secondary to gastroparesis Compazine 5mg PO q6h - hold due to dry heaving. Dilaudid 1mg IV Q8h prn - discontinued. No more pain medication of any type at this time. If patient is vomit free for 48 hours, can relook into pain medications but no more dilaudid for this hospital stay. Continue to monitor 1/2 NS decreased to 75mL/hr on 06/15/16 Zofran 4mg IVP q8h Uncontrolled diabetes mellitus A1c: 7.7 Hypoglycemia protocol ISS high dose Lantus 15 units HS (home medication) - restarted Accuchecks Continue to monitor Hypertensive urgency On admission: 238/130 Monitor on telemetry - sinus @119 bpm Continued home medications: Nifedipine 60mg daily, Losartan 25mg daily, labetalol 200mg PO BID - hold due to dry heaving. Hydralazine 10mg IV Q6 prn for SBP >160 Seizure hx of seizures and pseudo-seizures Home medication: Keppra 250mg PO BID- held due to vomiting Keppra 500mg IV Q12 Seizure precautions Continue to monitor Prophylactic measure SCDs, Heparin 5000u SC Q8 Protonix 40mg IVP daily Folic Acid 1mg PO daily - hold due to dry heaving. Ferrous Sulfate 325mg PO BID - hold due to dry heaving. Vitamin B12 1000mcg PO daily - hold due to dry heaving. Seizure precaution Telemetry NPO - if patient does not vomit throughout rest of day, may have some jello tonight and will attempt to advance diet tomorrow. Case discussed with Dr. Christine Cano Emeka PGY1
[2017-06-16] MEDS: Sodium Chloride 0.45% 1,000 ML IV SCH (18:16)
[2017-06-16] MEDS: (Lantus) Insulin Glargine, Recombinant SC SCH (21:34)
[2017-06-17] MEDS: (Novolin R) Insulin Human Regular 100 units/ml vial SC SCH ×5 (01:04→19:01)
[2017-06-17] MEDS: Sodium Chloride 0.45% 1,000 ML IV SCH ×3 (06:01→20:42)
--- NOTE | 2017-06-17 07:02 | CP.PCM.PN ---
Subjective - Date & Time of Evaluation Date of Evaluation: 06/17/17 Time of Evaluation: 09:38 - Subjective Subjective: PGY1 Medicine Note for Dr. King Patient seen and examined at bedside this morning. Patient was resting comfortably upon walking into the room this morning. She did not have any acute events over night. This morning she has had multiple "seizures". The resident went and evaluated the patient multiple times this morning with each time the patient beginning to convulse shortly after seeing the resident. The patient did not speak to the resident but was seen later with Dr. King and patient stated she was cold and had pain but had no other problems. She requested pain medications, but she was informed that she can not have pain medications if she is still vomiting. Objective - Vital Signs/Intake and Output Vital Signs (last 24 hours): Temp Pulse Resp BP Pulse Ox 98.5 F 87 20 167/104 H 100 06/16/17 23:42 06/17/17 01:00 06/16/17 23:42 06/16/17 23:42 06/16/17 23:42 - Medications Medications: Current Medications Acetaminophen (Tylenol 325mg Tab) 650 mg PO Q6 PRN PRN Reason: fever/pain Last Admin: 06/13/17 23:50 Dose: 650 mg Benztropine Mesylate (Cogentin) 1 mg IM BID PRN PRN Reason: EXTRAPYRAMIDAL SYMTPOMS Cyanocobalamin (Vitamin B12 1000 Mcg Tab) 1,000 mcg PO DAILY [facility] Diphenhydramine HCl (Benadryl) 50 mg IVP Q6H PRN PRN Reason: Itching / Pruritus Last Admin: 06/16/17 22:34 Dose: 50 mg Ergocalciferol (Drisdol 50,000 Intl Units Cap) 1 cap PO QWK [facility] Last Admin: 06/16/17 10:13 Dose: Not Given Erythromycin (Erythromycin) 250 mg PO Q8 [facility] Last Admin: 06/10/17 06:12 Dose: 250 mg Ferrous Sulfate (Feosol) 325 mg PO BID [facility] Folic Acid (Folic Acid) 1 mg PO DAILY [facility] Haloperidol Lactate (Haldol) 5 mg IM BID PRN PRN Reason: Agitation Heparin Sodium (Porcine) (Heparin) 5,000 units SC Q8 [facility] Last Admin: 06/17/17 05:40 Dose: 5,000 units Hydralazine HCl (Apresoline) 10 mg IVP Q6H PRN PRN Reason: SBP >160 Last Admin: 06/17/17 00:03 Dose: 10 mg Levetiracetam 500 mg/ Sodium (Chloride) 105 mls @ 420 mls/hr IVPB Q12H [facility] Last Admin: 06/16/17 19:34 Dose: 420 mls/hr Sodium Chloride (Sodium Chloride 0.45%) 1,000 mls @ 75 mls/hr IV .[id number] [facility] Last Admin: 06/16/17 18:16 Dose: Not Given Insulin Glargine (Lantus) 15 unit SC [facility] Last Admin: 06/16/17 21:34 Dose: Not Given Insulin Human Regular (Novolin R) 0 unit SC Q6H [facility] PRN Reason: Protocol Last Admin: 06/17/17 01:04 Dose: Not Given Labetalol HCl (Trandate) 200 mg PO BID [facility] Losartan Potassium (Cozaar) 25 mg PO DAILY [facility] Nifedipine (Procardia Xl) 60 mg PO DAILY [facility] Ondansetron HCl (Zofran Inj) 4 mg IVP Q8H [facility] Last Admin: 06/17/17 03:38 Dose: 4 mg Pantoprazole Sodium (Protonix Ec Tab) 40 mg PO DAILY [facility] Pantoprazole Sodium (Protonix Inj) 40 mg IVP Q12H [facility] Last Admin: 06/16/17 21:36 Dose: 40 mg Prochlorperazine (Compazine Tab) 5 mg PO Q6H [facility] Last Admin: 06/10/17 08:02 Dose: 5 mg Sertraline HCl (Zoloft) 50 mg PO [facility] Last Admin: 06/16/17 21:36 Dose: 50 mg - Labs Labs: 06/16/17 07:04 06/16/17 07:04 - Constitutional Appears: Non-toxic, No Acute Distress - Head Exam Head Exam: ATRAUMATIC, NORMOCEPHALIC - Eye Exam Eye Exam: EOMI. absent: Scleral icterus - ENT Exam ENT Exam: Mucous Membranes Moist - Respiratory Exam Respiratory Exam: Clear to Ausculation Bilateral, NORMAL BREATHING PATTERN. absent: Accessory Muscle Use, Rales, Rhonchi, Wheezes, Respiratory Distress - Cardiovascular Exam Cardiovascular Exam: REGULAR RHYTHM, +S1, +S2 - GI/Abdominal Exam GI & Abdominal Exam: Soft, Tenderness (LUQ tender), Normal Bowel Sounds. absent : Distended, Firm, Guarding, Rigid - Extremities Exam Extremities Exam: absent: Calf Tenderness, Pedal Edema - Neurological Exam Neurological Exam: Alert, Awake, Oriented x3 Additional comments: During whole body convulsions there is no trismus, no nystagmus, no tongue biting, no loss of bowels. Resident Emeka attempted to elicit the corneal reflex during a convulsion event and the closed her left eye only and moved her head immediately backwards upon resident Emeka touching her eye. Upon resolution of the convulsions, the patient sometimes will have a deviated downward gaze for a few minutes then return to baseline with no confusion. Other times, there is no deviated gaze and patient returns to baseline with no confusion immediately following convulsions. Patient usually asks for ativan or pain medication upon resolution of convulsions because they help with her seizures. - Psychiatric Exam Psychiatric exam: absent: Normal Affect, Normal Mood - Skin Skin Exam: Dry, Warm Assessment and Plan - Assessment and Plan (Free Text) Plan: Pseudo-seizures, Depression - Munchausen Syndrome Psychiatry consulted, Dr. New - help appreciated Patient's actions cause a large amount of resources (time from nurses and residents) to be spent on her. She was told she needed to start acting appropriately. Patient is still acting inappropriately. 06/17/17 - Patient is attempting seizure activity. During whole body convulsions there is no trismus, no nystagmus, no tongue biting, no loss of bowels, negative drop arm test. Resident Emeka attempted to elicit the corneal reflex during a convulsion event, in which the patient closed her left eye only and moved her head immediately backwards upon resident Emeka touching her eye. Upon resolution of the convulsions, the patient sometimes will have a downward deviated gaze for a few minutes then return to baseline with no confusion. Other times, there is no deviated gaze and patient returns to baseline with no confusion immediately following convulsions. Patient usually asks for Ativan or pain medication upon resolution of convulsions because they help with her seizures. Paperwork was faxed over to [facility] department. Awaiting psych eval for involuntary inpatient psych. Patient's mother is in support of this decision. "My daughter needs help. This just keeps getting worse." 06/16/17 - Patient has not attempted any "seizures" today. Spoke with Dr. New about patient today. Patient was started on Haldol 5mg IM BID and Cogentin 1mg IM BID. Patient has extensive history of acting out (stealing juices/other peoples food when she is NPO, crying for pain medications constantly), faking symptoms (ie stating she is having a seizure when she is simultaneously requesting Ativan (by name) and actively shaking), causing damage to herself ( misuse of her insulin, taking insulin then refusing to eat or refusing to take her insulin and eating/drinking a lot of sugar to increase her glucose levels to get admitted.). Due to this extensive history and the patient actively doing damage to her health, it is our recommendation that the patient be transferred to inpatient psych. [facility] inpatient psych has been called and case discussed with nurse Jimenez . Nurse Jimenez stated that a physician will be sent over to evaluate patient today. Patient's mother and sister, Urszula, were at bedside today. Resident Emeka discussed the plan and they both agree with the current suggestion of inpatient psych treatment. Urszula (sister) "She has always had stomach problems but things have just been getting worse and worse over the past two to three years. Our relationship has deteriorated over the past year and a half because she will not listen to me. I can see how it is affecting my mom. The patient's mother stated "Everytime we leave the hospital she is feeling better. I make sure she takes her insulin and everything seems to be ok. But once we get home she leaves and goes out with her friends. She fights with me and won't take her medications. She has stated, "I am tired. I am ok if I ." Mother and sister both support the patient being transferred to inpatient psych because they have seen a steady decline in her health and mental state as she is acting out more and more often. CORRECTION - Patient attempted multiple seizures throughout the day per nursing staff, but they were quickly resolved each time with the patient requesting pain medications upon resolution of convulsions. Patient did not have any "seizures" during the time her older sister, Urszula, was present. 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 Patient started on clear liquid diet. Awaiting psych eval. 06/13/17 - Patient was evaluated by Psych yesterday, per the patient's mother. Awaiting recommendations. Patient is still wearing alcohol wipes on her nose. 06/12/17 - Patient is still stealing food and juices, self-inducing vomiting, faking seizures and now ripping up alcohol wipes and throwing them around her room. She is placing alcohol wipes and leaving them resting on her nose for unknown reasons. Patient is refusing to speak to Resident Emeka this morning at time of exam. She was instructed she needed to stop these actions as we can not have a repeat of yesterday. Patient rolled way from Dr. Hendrickson. 06/11/17 - She is stealing food and juices from the nutrition station even though she is NPO. She is also stealing drinks and food from her roommate's tray. She is then turning around and vomiting. She states she is not faking. [facility] is present in room. They are reporting to the nurses that the patient is consistently sticking her fingers down her throat to induce vomiting. Resident Emeka told her to stop faking the seizures. She states she is not faking. When asked by Dr. King why she feels like she is having seizures, she stated "I get a birch of warmth. I don't know. Sometimes when my sugars get too low as well. I'm not really sure. It's just always how my seizures have been." When instructed that these are not consistent with real seizures, patient became up set. She apologized to Dr. Hendrickson, stating that she was sorry for her actions throughout the day. She states she will not do it anymore. Patient's mother was present during this conversation with Dr. King in the room. It was explained to the mother that this is believed to be all psych. The mother agrees. She states she just does not know what to do any longer. "My daughter needs mental help. I do not want to lose her." Dr. King instructed her that this is indeed a very important/dangerous issue and will need to be addressed by a psychiatrist. Current medications: Haldol 5mg IM BID Cogentin 1mg IM BID Benadryl 50mg IVP q6h prn Zoloft 50 HS started on 06/15 Nausea and vomiting secondary to gastroparesis Compazine 5mg PO q6h - hold due to dry heaving. Dilaudid 1mg IV Q8h prn - discontinued. No more pain medication of any type at this time. If patient is vomit free for 48 hours, can relook into pain medications but no more dilaudid for this hospital stay. Continue to monitor 1/2 NS decreased to 75mL/hr on 06/15/16 Zofran 4mg IVP q8h Uncontrolled diabetes mellitus A1c: 7.7 Hypoglycemia protocol ISS high dose Lantus 15 units HS (home medication) - restarted Accuchecks Continue to monitor Hypertensive urgency On admission: 238/130 Monitor on telemetry - sinus @119 bpm Continued home medications: Nifedipine 60mg daily, Losartan 25mg daily, labetalol 200mg PO BID - hold due to dry heaving. Hydralazine 10mg IV Q6 prn for SBP >160 Seizure hx of seizures and pseudo-seizures Home medication: Keppra 250mg PO BID- held due to vomiting Keppra 500mg IV Q12 Seizure precautions Continue to monitor Prophylactic measure SCDs, Heparin 5000u SC Q8 Protonix 40mg IVP daily Folic Acid 1mg PO daily - hold due to dry heaving. Ferrous Sulfate 325mg PO BID - hold due to dry heaving. Vitamin B12 1000mcg PO daily - hold due to dry heaving. Seizure precaution Telemetry NPO - if patient does not vomit throughout rest of day, may have some jello tonight and will attempt to advance diet tomorrow. Case discussed with Dr. Christine Cano Emeka PGY1
[2017-06-17] MEDS: DiphenhydrAMINE 50 mg/ml Inj IVP PRN ×2 (07:44→21:40)
[2017-06-17] MEDS: levETIRAcetam 500 MG in Sodium Chloride 0.9% 100 ML IVPB SCH ×2 (08:25→19:10)
[2017-06-17 13:53] LABS: BASO % 0.5 % (0.0-2.0); EOS % 0.1 % (0.0-4.0); HEMOGLOBIN 10.1 g/dL (11.0-16.0); LYMPH # 1.5 K/uL (1.0-4.3); MEAN CELL VOLUME 84.9 fL (81.0-99.0); MEAN CORPUSCULAR HGB CONC 34.2 g/dL (33.0-37.0); MEAN PLATELET VOLUME 10.1 fL (7.2-11.7); MONO # 0.2 K/uL (0.0-0.8); NEUT # 5.3 K/uL (1.8-7.0); NEUT % 75.4 % (50.0-75.0); RBC 3.49 Mil/uL (3.80-5.20); RED CELL DISTRIBUTION WIDTH 14.2 % (11.5-14.5)
[2017-06-17 14:31] LABS: ALB/GLOB RATIO 0.9 (1.0-2.1); ALBUMIN 2.3 g/dL (3.5-5.0); ALT/SGPT 22 U/L (9-52); BLOOD UREA NITROGEN 20 mg/dL (7-17); GFR AFRICAN-AMERICAN 28; GFR NON-AFRICAN AMERICAN 23
[2017-06-17 14:32] LABS: AST/SGOT 20 U/L (14-36); CALCIUM 8.1 mg/dl (8.6-10.4)
[2017-06-17] MEDS: (Lantus) Insulin Glargine, Recombinant SC SCH (21:43)
[2017-06-18] MEDS: Sodium Chloride 0.45% 1,000 ML IV SCH ×3 (01:00→22:07)
[2017-06-18] MEDS: (Novolin R) Insulin Human Regular 100 units/ml vial SC SCH ×4 (01:43→19:32)
[2017-06-18] MEDS: DiphenhydrAMINE 50 mg/ml Inj IVP PRN (04:38)
--- NOTE | 2017-06-18 07:46 | CP.PCM.PN ---
Subjective - Date & Time of Evaluation Date of Evaluation: 06/18/17 Time of Evaluation: 07:46 - Subjective Subjective: PGY1 Medicine Note for Dr. King Patient seen and examined at bedside this morning. Patient is still vomiting. When [facility] came to screen her this morning, she stated that she vomited and was too nauseous to speak to them. Patient is requesting susannah mana because her throat is burning her and she is tired of only having water. Objective - Vital Signs/Intake and Output Vital Signs (last 24 hours): Temp Pulse Resp BP Pulse Ox 98.3 F 99 H 20 159/91 H 95 06/17/17 23:50 06/18/17 01:00 06/17/17 23:50 06/17/17 23:50 06/17/17 23:50 - Medications Medications: Current Medications Acetaminophen (Tylenol 325mg Tab) 650 mg PO Q6 PRN PRN Reason: fever/pain Last Admin: 06/17/17 23:39 Dose: 650 mg Benztropine Mesylate (Cogentin) 1 mg IM BID PRN PRN Reason: EXTRAPYRAMIDAL SYMTPOMS Cyanocobalamin (Vitamin B12 1000 Mcg Tab) 1,000 mcg PO DAILY [facility] Diphenhydramine HCl (Benadryl) 50 mg IVP Q6H PRN PRN Reason: Itching / Pruritus Last Admin: 06/18/17 04:38 Dose: 50 mg Ergocalciferol (Drisdol 50,000 Intl Units Cap) 1 cap PO QWK [facility] Last Admin: 06/16/17 10:13 Dose: Not Given Erythromycin (Erythromycin) 250 mg PO Q8 [facility] Last Admin: 06/10/17 06:12 Dose: 250 mg Ferrous Sulfate (Feosol) 325 mg PO BID [facility] Folic Acid (Folic Acid) 1 mg PO DAILY [facility] Haloperidol Lactate (Haldol) 5 mg IM BID PRN PRN Reason: Agitation Last Admin: 06/17/17 10:12 Dose: 5 mg Heparin Sodium (Porcine) (Heparin) 5,000 units SC Q8 [facility] Last Admin: 06/18/17 06:52 Dose: Not Given Hydralazine HCl (Apresoline) 10 mg IVP Q6H PRN PRN Reason: SBP >160 Last Admin: 06/17/17 07:45 Dose: 10 mg Levetiracetam 500 mg/ Sodium (Chloride) 105 mls @ 420 mls/hr IVPB Q12H [facility] Last Admin: 06/17/17 19:10 Dose: 420 mls/hr Sodium Chloride (Sodium Chloride 0.45%) 1,000 mls @ 75 mls/hr IV .[id number] [facility] Last Admin: 06/18/17 01:00 Dose: 75 mls/hr Insulin Glargine (Lantus) 15 unit SC [facility] Last Admin: 06/17/17 21:43 Dose: Not Given Insulin Human Regular (Novolin R) 0 unit SC Q6H [facility] PRN Reason: Protocol Last Admin: 06/18/17 01:43 Dose: Not Given Labetalol HCl (Trandate) 200 mg PO BID [facility] Losartan Potassium (Cozaar) 25 mg PO DAILY [facility] Nifedipine (Procardia Xl) 60 mg PO DAILY [facility] Ondansetron HCl (Zofran Inj) 4 mg IVP Q8H [facility] Last Admin: 06/18/17 03:09 Dose: 4 mg Pantoprazole Sodium (Protonix Ec Tab) 40 mg PO DAILY [facility] Pantoprazole Sodium (Protonix Inj) 40 mg IVP Q12H [facility] Last Admin: 06/17/17 21:40 Dose: 40 mg Prochlorperazine (Compazine Tab) 5 mg PO Q6H [facility] Last Admin: 06/10/17 08:02 Dose: 5 mg Sertraline HCl (Zoloft) 50 mg PO [facility] Last Admin: 06/17/17 21:41 Dose: 50 mg - Labs Labs: 06/17/17 13:46 06/17/17 13:46 - Constitutional Appears: No Acute Distress - Head Exam Head Exam: ATRAUMATIC, NORMOCEPHALIC - Eye Exam Eye Exam: EOMI - ENT Exam ENT Exam: Mucous Membranes Moist - Respiratory Exam Respiratory Exam: Clear to Ausculation Bilateral, NORMAL BREATHING PATTERN. absent: Accessory Muscle Use, Rales, Rhonchi, Wheezes, Respiratory Distress - Cardiovascular Exam Cardiovascular Exam: REGULAR RHYTHM, +S1, +S2 - GI/Abdominal Exam GI & Abdominal Exam: Soft, Normal Bowel Sounds. absent: Distended, Firm, Guarding, Rigid, Tenderness - Extremities Exam Extremities Exam: absent: Calf Tenderness, Pedal Edema - Neurological Exam Neurological Exam: Alert, Awake, Oriented x3 - Psychiatric Exam Psychiatric exam: Normal Affect, Normal Mood - Skin Skin Exam: Dry, Warm Assessment and Plan - Assessment and Plan (Free Text) Plan: Pseudo-seizures, Depression - Munchausen Syndrome Psychiatry consulted, Dr. New - help appreciated 06/18/17 - [facility] came to screen the patient this morning. Upon entering the room the patient vomited. Per the cover sheet, the patient was not screened. Resident Emeka was not notified of any seizures today. Patient was however refusing all medications, blood work and blood glucose checks until late in the afternoon. Patient is requesting susannah mana and wants to eat, even though she is still vomiting. Dr. King is planning on speaking to Dr. New about the next steps that we can take to get the patient the help she needs. 06/17/17 - Patient is attempting seizure activity. During whole body convulsions there is no trismus, no nystagmus, no tongue biting, no loss of bowels, negative drop arm test. Resident Emeka attempted to elicit the corneal reflex during a convulsion event, in which the patient closed her left eye only and moved her head immediately backwards upon resident Emeka touching her eye. Upon resolution of the convulsions, the patient sometimes will have a downward deviated gaze for a few minutes then return to baseline with no confusion. Other times, there is no deviated gaze and patient returns to baseline with no confusion immediately following convulsions. Patient usually asks for Ativan or pain medication upon resolution of convulsions because they help with her seizures. Paperwork was faxed over to [facility] psych department. Awaiting psych eval for involuntary inpatient psych. Patient's mother is in support of this decision. "My daughter needs help. This just keeps getting worse." 06/16/17 - Patient has not attempted any "seizures" today. Spoke with Dr. New about patient today. Patient was started on Haldol 5mg IM BID and Cogentin 1mg IM BID. Patient has extensive history of acting out (stealing juices/other peoples food when she is NPO, crying for pain medications constantly), faking symptoms (ie stating she is having a seizure when she is simultaneously requesting Ativan (by name) and actively shaking), causing damage to herself ( misuse of her insulin, taking insulin then refusing to eat or refusing to take her insulin and eating/drinking a lot of sugar to increase her glucose levels to get admitted.). Due to this extensive history and the patient actively doing damage to her health, it is our recommendation that the patient be transferred to inpatient psych. [facility] inpatient psych has been called and case discussed with nurse Barbara . Nurse Jimenez stated that a physician will be sent over to evaluate patient today. Patient's mother and sister, Urszula, were at bedside today. Resident Emeka discussed the plan and they both agree with the current suggestion of inpatient psych treatment. Urszula (sister) "She has always had stomach problems but things have just been getting worse and worse over the past two to three years. Our relationship has deteriorated over the past year and a half because she will not listen to me. I can see how it is affecting my mom. The patient's mother stated "Everytime we leave the hospital she is feeling better. I make sure she takes her insulin and everything seems to be ok. But once we get home she leaves and goes out with her friends. She fights with me and won't take her medications. She has stated, "I am tired. I am ok if I ." Mother and sister both support the patient being transferred to inpatient psych because they have seen a steady decline in her health and mental state as she is acting out more and more often. CORRECTION - Patient attempted multiple seizures throughout the day per nursing staff, but they were quickly resolved each time with the patient requesting pain medications upon resolution of convulsions. Patient did not have any "seizures" during the time her older sister, Urszula, was present. 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 Patient started on clear liquid diet. Awaiting psych eval. 06/13/17 - Patient was evaluated by Psych yesterday, per the patient's mother. Awaiting recommendations. Patient is still wearing alcohol wipes on her nose. 06/12/17 - Patient is still stealing food and juices, self-inducing vomiting, faking seizures and now ripping up alcohol wipes and throwing them around her room. She is placing alcohol wipes and leaving them resting on her nose for unknown reasons. Patient is refusing to speak to Resident Emeka this morning at time of exam. She was instructed she needed to stop these actions as we can not have a repeat of yesterday. Patient rolled way from Dr. Hendrickson. 06/11/17 - She is stealing food and juices from the nutrition station even though she is NPO. She is also stealing drinks and food from her roommate's tray. She is then turning around and vomiting. She states she is not faking. [facility] system is present in room. They are reporting to the nurses that the patient is consistently sticking her fingers down her throat to induce vomiting. Resident Emeka told her to stop faking the seizures. She states she is not faking. When asked by Dr. King why she feels like she is having seizures, she stated "I get a birch of warmth. I don't know. Sometimes when my sugars get too low as well. I'm not really sure. It's just always how my seizures have been." When instructed that these are not consistent with real seizures, patient became up set. She apologized to Dr. Hendrickson, stating that she was sorry for her actions throughout the day. She states she will not do it anymore. Patient's mother was present during this conversation with Dr. King in the room. It was explained to the mother that this is believed to be all psych. The mother agrees. She states she just does not know what to do any longer. "My daughter needs mental help. I do not want to lose her." Dr. King instructed her that this is indeed a very important/dangerous issue and will need to be addressed by a psychiatrist. Current medications: Haldol 5mg IM BID Cogentin 1mg IM BID Benadryl 50mg IVP q6h prn Zoloft 50 HS started on 06/15 Nausea and vomiting secondary to gastroparesis Compazine 5mg PO q6h - hold due to dry heaving. Dilaudid 1mg IV Q8h prn - discontinued. No more pain medication of any type at this time. If patient is vomit free for 48 hours, can relook into pain medications but no more dilaudid for this hospital stay. Continue to monitor 1/2 NS decreased to 75mL/hr on 06/15/16 Zofran 4mg IVP q8h Uncontrolled diabetes mellitus A1c: 7.7 Hypoglycemia protocol ISS high dose Lantus 15 units HS (home medication) - restarted Accuchecks Continue to monitor Hypertensive urgency On admission: 238/130 Monitor on telemetry - normal sinus @88 bpm Continued home medications: Nifedipine 60mg daily, Losartan 25mg daily, labetalol 200mg PO BID - hold due to dry heaving. Hydralazine 10mg IV Q6 prn for SBP >160 Seizure hx of seizures and pseudo-seizures Home medication: Keppra 250mg PO BID- held due to vomiting Keppra 500mg IV Q12 Seizure precautions Continue to monitor Prophylactic measure SCDs, Heparin 5000u SC Q8 Protonix 40mg IVP daily Folic Acid 1mg PO daily - hold due to dry heaving. Ferrous Sulfate 325mg PO BID - hold due to dry heaving. Vitamin B12 1000mcg PO daily - hold due to dry heaving. Seizure precaution Telemetry NPO - if patient does not vomit throughout rest of day, may have some jello tonight and will attempt to advance diet tomorrow. Case discussed with Dr. Christine Cano Emeka PGY1
[2017-06-18] MEDS: levETIRAcetam 500 MG in Sodium Chloride 0.9% 100 ML IVPB SCH ×2 (08:33→20:00)
[2017-06-18] MEDS ORDERED: Aluminum Hydroxide/Magnesium Hydroxide Susp (30 mL) PO STA (10:53)
[2017-06-18] MEDS: (Lantus) Insulin Glargine, Recombinant SC SCH (22:06)
[2017-06-19] MEDS: (Novolin R) Insulin Human Regular 100 units/ml vial SC SCH ×4 (02:17→19:40)
[2017-06-19] MEDS: DiphenhydrAMINE 50 mg/ml Inj IVP PRN ×4 (02:37→22:13)
[2017-06-19 07:33] LABS: BASO # 0.1 K/uL (0.0-0.2); BASO % 0.9 % (0.0-2.0); EOS # 0.1 K/uL (0.0-0.7); EOS % 1.5 % (0.0-4.0); HEMOGLOBIN 9.6 g/dL (11.0-16.0); LYMPH # 3.2 K/uL (1.0-4.3); LYMPH % 48.8 % (20.0-40.0); MEAN CELL VOLUME 83.6 fL (81.0-99.0); MEAN CORPUSCULAR HEMOGLOBIN 28.6 pg (27.0-31.0); MEAN CORPUSCULAR HGB CONC 34.3 g/dL (33.0-37.0); MEAN PLATELET VOLUME 10.6 fL (7.2-11.7); MONO # 0.4 K/uL (0.0-0.8); MONO % 6.2 % (0.0-10.0); NEUT # 2.8 K/uL (1.8-7.0); NEUT % 42.6 % (50.0-75.0); RBC 3.35 Mil/uL (3.80-5.20); RED CELL DISTRIBUTION WIDTH 14.5 % (11.5-14.5); WHITE BLOOD COUNT 6.6 K/uL (4.8-10.8)
[2017-06-19] MEDS ORDERED: Aluminum Hydroxide/Magnesium Hydroxide Susp (30 mL) PO STA (07:36)
[2017-06-19] MEDS: levETIRAcetam 500 MG in Sodium Chloride 0.9% 100 ML IVPB SCH ×2 (10:46→19:40)
[2017-06-19 10:51] LABS: ALB/GLOB RATIO 0.9 (1.0-2.1); ALBUMIN 2.3 g/dL (3.5-5.0); CALCIUM 8.2 mg/dl (8.6-10.4)
--- NOTE | 2017-06-19 15:13 | CP.PCM.PN ---
Subjective - Date & Time of Evaluation Date of Evaluation: 06/19/17 Time of Evaluation: 09:00 - Subjective Subjective: PGY1 Medicine Note PGY1 Patient seen and examined at bedside this morning. Patient is still sticking her fingers down her throat and having full body convulsion not consistent with seizure disorder. Patient was instructed she needed to stop and that she is doing harm to herself. Patient started to get visibly upset and stated she understands. Objective - Vital Signs/Intake and Output Vital Signs (last 24 hours): Temp Pulse Resp BP Pulse Ox 98.3 F 108 H 20 174/97 H 99 06/18/17 23:45 06/19/17 14:29 06/18/17 23:45 06/18/17 23:45 06/18/17 23:45 Intake and Output: 06/19/17 06/19/17 06:59 18:59 Intake Total 600 Balance 600 - Medications Medications: Current Medications Acetaminophen (Tylenol 325mg Tab) 650 mg PO Q6 PRN PRN Reason: fever/pain Last Admin: 06/17/17 23:39 Dose: 650 mg Benztropine Mesylate (Cogentin) 1 mg IM BID PRN PRN Reason: EXTRAPYRAMIDAL SYMTPOMS Cyanocobalamin (Vitamin B12 1000 Mcg Tab) 1,000 mcg PO DAILY [facility] Diphenhydramine HCl (Benadryl) 50 mg IVP Q6H PRN PRN Reason: Itching / Pruritus Last Admin: 06/19/17 14:43 Dose: 50 mg Ergocalciferol (Drisdol 50,000 Intl Units Cap) 1 cap PO QWK [facility] Last Admin: 06/16/17 10:13 Dose: Not Given Erythromycin (Erythromycin) 250 mg PO Q8 [facility] Last Admin: 06/10/17 06:12 Dose: 250 mg Ferrous Sulfate (Feosol) 325 mg PO BID [facility] Folic Acid (Folic Acid) 1 mg PO DAILY [facility] Haloperidol Lactate (Haldol) 5 mg IM BID PRN PRN Reason: Agitation Last Admin: 06/19/17 09:50 Dose: 5 mg Heparin Sodium (Porcine) (Heparin) 5,000 units SC Q8 [facility] Last Admin: 06/19/17 14:34 Dose: Not Given Hydralazine HCl (Apresoline) 10 mg IVP Q6H PRN PRN Reason: SBP >160 Last Admin: 06/19/17 10:45 Dose: 10 mg Levetiracetam 500 mg/ Sodium (Chloride) 105 mls @ 420 mls/hr IVPB Q12H [facility] Last Admin: 06/19/17 10:46 Dose: 420 mls/hr Sodium Chloride (Sodium Chloride 0.45%) 1,000 mls @ 75 mls/hr IV .[id number] [facility] Last Admin: 06/18/17 22:07 Dose: Not Given Insulin Glargine (Lantus) 15 unit SC [facility] Last Admin: 06/18/17 22:06 Dose: 15 u Insulin Human Regular (Novolin R) 0 unit SC Q6H [facility] PRN Reason: Protocol Last Admin: 06/19/17 14:33 Dose: Not Given Labetalol HCl (Trandate) 200 mg PO BID [facility] Losartan Potassium (Cozaar) 25 mg PO DAILY [facility] Nifedipine (Procardia Xl) 60 mg PO DAILY [facility] Ondansetron HCl (Zofran Inj) 4 mg IVP Q4H [facility] Last Admin: 06/19/17 14:34 Dose: Not Given Pantoprazole Sodium (Protonix Ec Tab) 40 mg PO DAILY [facility] Pantoprazole Sodium (Protonix Inj) 40 mg IVP Q12H [facility] Last Admin: 06/19/17 10:45 Dose: 40 mg Prochlorperazine (Compazine Tab) 5 mg PO Q6H [facility] Last Admin: 06/19/17 14:30 Dose: Not Given Sertraline HCl (Zoloft) 50 mg PO [facility] Last Admin: 06/18/17 22:05 Dose: 50 mg - Labs Labs: 06/19/17 07:20 06/19/17 07:20 - Constitutional Appears: Non-toxic, No Acute Distress - Head Exam Head Exam: ATRAUMATIC, NORMOCEPHALIC - Eye Exam Eye Exam: EOMI - ENT Exam ENT Exam: Mucous Membranes Moist - Respiratory Exam Respiratory Exam: Clear to Ausculation Bilateral, NORMAL BREATHING PATTERN. absent: Accessory Muscle Use, Rales, Rhonchi, Wheezes, Respiratory Distress - Cardiovascular Exam Cardiovascular Exam: REGULAR RHYTHM, +S1, +S2 - GI/Abdominal Exam GI & Abdominal Exam: Guarding (LUQ), Soft, Tenderness (LUQ), Normal Bowel Sounds. absent: Distended, Firm, Rigid - Extremities Exam Extremities Exam: absent: Calf Tenderness, Pedal Edema - Neurological Exam Neurological Exam: Alert, Awake, Oriented x3 - Psychiatric Exam Psychiatric exam: Depressed Additional comments: crying. - Skin Skin Exam: Dry, Warm Assessment and Plan - Assessment and Plan (Free Text) Plan: Pseudo-seizures, Depression - Munchausen Syndrome Psychiatry consulted, Dr. New - help appreciated 06/19/17 - Patient still seen sticking her fingers down her throat on [employer] system. They are informing the nursing staff that she is sticking her fingers down her throat to force herself to vomit. They also alerted nursing staff of attempting to time body convulsions and stopping convulsions depending on who is present in the room. Patient instructed she is not getting any ativan or dilaudid. She is still crying for pain medications stating that she is in a lot of pain and needs something for the pain. Per nursing staff, patient is now requesting Benadryl because "it helps with the pain in my stomach." Nursing staff has refused to give it to the patient and informed the patient that that is not how the medication works. Dr. Hendrickson supports this decision. Patient is still causing a large amount time to be spent on her. She has been repeatedly instructed to stop faking these symptoms as she is causing actual harm to her body. She was told by Dr. King that we are currently in the process of attempting to get her involuntarily committed to get her the help she really needs. Patient began to cry and stated she understands. 06/18/17 - [facility] came to screen the patient this morning. Upon entering the room the patient vomited. Per the cover sheet, the patient was not screened. Resident Hendrickson was not notified of any seizures today. Patient was however refusing all medications, blood work and blood glucose checks until late in the afternoon. Patient is requesting susannah mana and wants to eat, even though she is still vomiting. Dr. King is planning on speaking to Dr. New about the next steps that we can take to get the patient the help she needs. 06/17/17 - Patient is attempting seizure activity. During whole body convulsions there is no trismus, no nystagmus, no tongue biting, no loss of bowels, negative drop arm test. Resident Hendrickson attempted to elicit the corneal reflex during a convulsion event, in which the patient closed her left eye only and moved her head immediately backwards upon resident Emeka touching her eye. Upon resolution of the convulsions, the patient sometimes will have a downward deviated gaze for a few minutes then return to baseline with no confusion. Other times, there is no deviated gaze and patient returns to baseline with no confusion immediately following convulsions. Patient usually asks for Ativan or pain medication upon resolution of convulsions because they help with her seizures. Paperwork was faxed over to [facility] psych department. Awaiting psych eval for involuntary inpatient psych. Patient's mother is in support of this decision. "My daughter needs help. This just keeps getting worse." 06/16/17 - Patient has not attempted any "seizures" today. Spoke with Dr. New about patient today. Patient was started on Haldol 5mg IM BID and Cogentin 1mg IM BID. Patient has extensive history of acting out (stealing juices/other peoples food when she is NPO, crying for pain medications constantly), faking symptoms (ie stating she is having a seizure when she is simultaneously requesting Ativan (by name) and actively shaking), causing damage to herself ( misuse of her insulin, taking insulin then refusing to eat or refusing to take her insulin and eating/drinking a lot of sugar to increase her glucose levels to get admitted.). Due to this extensive history and the patient actively doing damage to her health, it is our recommendation that the patient be transferred to inpatient psych. [facility] inpatient psych has been called and case discussed with nurse Jimenez . Nurse Jimenez stated that a physician will be sent over to evaluate patient today. Patient's mother and sister, Urszula, were at bedside today. Resident Emeka discussed the plan and they both agree with the current suggestion of inpatient psych treatment. Urszula (sister) "She has always had stomach problems but things have just been getting worse and worse over the past two to three years. Our relationship has deteriorated over the past year and a half because she will not listen to me. I can see how it is affecting my mom. The patient's mother stated "Everytime we leave the hospital she is feeling better. I make sure she takes her insulin and everything seems to be ok. But once we get home she leaves and goes out with her friends. She fights with me and won't take her medications. She has stated, "I am tired. I am ok if I ." Mother and sister both support the patient being transferred to inpatient psych because they have seen a steady decline in her health and mental state as she is acting out more and more often. CORRECTION - Patient attempted multiple seizures throughout the day per nursing staff, but they were quickly resolved each time with the patient requesting pain medications upon resolution of convulsions. Patient did not have any "seizures" during the time her older sister, Urszula, was present. 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 Patient started on clear liquid diet. Awaiting psych eval. 06/13/17 - Patient was evaluated by Psych yesterday, per the patient's mother. Awaiting recommendations. Patient is still wearing alcohol wipes on her nose. 06/12/17 - Patient is still stealing food and juices, self-inducing vomiting, faking seizures and now ripping up alcohol wipes and throwing them around her room. She is placing alcohol wipes and leaving them resting on her nose for unknown reasons. Patient is refusing to speak to Resident Emeka this morning at time of exam. She was instructed she needed to stop these actions as we can not have a repeat of yesterday. Patient rolled way from Dr. Hendrickson. 06/11/17 - She is stealing food and juices from the nutrition station even though she is NPO. She is also stealing drinks and food from her roommate's tray. She is then turning around and vomiting. She states she is not faking. [email or web address] system is present in room. They are reporting to the nurses that the patient is consistently sticking her fingers down her throat to induce vomiting. Resident Emeka told her to stop faking the seizures. She states she is not faking. When asked by Dr. King why she feels like she is having seizures, she stated "I get a birch of warmth. I don't know. Sometimes when my sugars get too low as well. I'm not really sure. It's just always how my seizures have been." When instructed that these are not consistent with real seizures, patient became up set. She apologized to Dr. Hendrickson, stating that she was sorry for her actions throughout the day. She states she will not do it anymore. Patient's mother was present during this conversation with Dr. King in the room. It was explained to the mother that this is believed to be all psych. The mother agrees. She states she just does not know what to do any longer. "My daughter needs mental help. I do not want to lose her." Dr. King instructed her that this is indeed a very important/dangerous issue and will need to be addressed by a psychiatrist. Current medications: Haldol 5mg IM BID Cogentin 1mg IM BID Benadryl 50mg IVP q6h prn Zoloft 50 HS started on 06/15 Nausea and vomiting secondary to gastroparesis Compazine 5mg PO q6h - hold due to dry heaving. Dilaudid 1mg IV Q8h prn - discontinued. No more pain medication of any type at this time. If patient is vomit free for 48 hours, can relook into pain medications but no more dilaudid for this hospital stay. Continue to monitor 1/2 NS decreased to 75mL/hr on 06/15/16 Zofran 4mg IVP q8h Uncontrolled diabetes mellitus A1c: 7.7 Hypoglycemia protocol ISS high dose Lantus 15 units HS (home medication) - restarted Accuchecks Continue to monitor Hypertensive urgency On admission: 238/130 Monitor on telemetry - normal sinus @88 bpm Continued home medications: Nifedipine 60mg daily, Losartan 25mg daily, labetalol 200mg PO BID - hold due to dry heaving. Hydralazine 10mg IV Q6 prn for SBP >160 Seizure hx of seizures and pseudo-seizures Home medication: Keppra 250mg PO BID- held due to vomiting Keppra 500mg IV Q12 Seizure precautions Continue to monitor Prophylactic measure SCDs, Heparin 5000u SC Q8 Protonix 40mg IVP daily Folic Acid 1mg PO daily - hold due to dry heaving. Ferrous Sulfate 325mg PO BID - hold due to dry heaving. Vitamin B12 1000mcg PO daily - hold due to dry heaving. Seizure precaution Telemetry NPO - if patient does not vomit throughout rest of day, may have some jello tonight and will attempt to advance diet tomorrow. Case discussed with Dr. Christine Cano Emeka PGY1
[2017-06-19] MEDS: (Lantus) Insulin Glargine, Recombinant SC SCH (22:13)
[2017-06-20] MEDS: Sodium Chloride 0.45% 1,000 ML IV SCH ×2 (01:23→13:50)
[2017-06-20] MEDS: (Novolin R) Insulin Human Regular 100 units/ml vial SC SCH ×4 (02:42→19:12)
[2017-06-20] MEDS: DiphenhydrAMINE 50 mg/ml Inj IVP PRN ×3 (03:58→23:54)
[2017-06-20] MEDS ORDERED: Glucagon Recombinant 1 mg Inj IM PRN (06:08)
[2017-06-20] MEDS ORDERED: Dextrose 50% SYRINGE Inj (50 ml) IV PRN (06:08)
[2017-06-20] MEDS: levETIRAcetam 500 MG in Sodium Chloride 0.9% 100 ML IVPB SCH ×2 (08:00→20:15)
[2017-06-20 08:24] VITALS: RESP 20
[2017-06-20 09:09] LABS: BASO # 0.1 K/uL (0.0-0.2); BASO % 1.2 % (0.0-2.0); EOS % 0.9 % (0.0-4.0); HEMOGLOBIN 9.5 g/dL (11.0-16.0); LYMPH # 1.9 K/uL (1.0-4.3); LYMPH % 36.2 % (20.0-40.0); MEAN CELL VOLUME 84.1 fL (81.0-99.0); MEAN CORPUSCULAR HEMOGLOBIN 28.8 pg (27.0-31.0); MEAN CORPUSCULAR HGB CONC 34.2 g/dL (33.0-37.0); MEAN PLATELET VOLUME 10.1 fL (7.2-11.7); MONO # 0.4 K/uL (0.0-0.8); MONO % 7.5 % (0.0-10.0); NEUT # 2.9 K/uL (1.8-7.0); NEUT % 54.2 % (50.0-75.0); NRBC % 0.2 % (0.0-2.0); RBC 3.3 Mil/uL (3.80-5.20); RED CELL DISTRIBUTION WIDTH 14.5 % (11.5-14.5); WHITE BLOOD COUNT 5.3 K/uL (4.8-10.8)
[2017-06-20 09:41] LABS: ALB/GLOB RATIO 0.8 (1.0-2.1); ALBUMIN 2.1 g/dL (3.5-5.0); CALCIUM 8.3 mg/dl (8.6-10.4)
--- NOTE | 2017-06-20 10:36 | CP.PCM.PN ---
Subjective - Date & Time of Evaluation Date of Evaluation: 06/20/17 Time of Evaluation: 09:00 - Subjective Subjective: Medicine Note For Dr. King's Service Patient was seen and examined at bedside. Patient reports she for once feels well. No more nausea or vomiting since yesterday. Wants to start with a CLD. Denied fever, chills, headache, chest pain, SOB, abdominal pain, n/v/d/c, or urinary symptoms. Objective - Vital Signs/Intake and Output Vital Signs (last 24 hours): Temp Pulse Resp BP Pulse Ox 98.2 F 90 20 135/77 96 06/20/17 07:24 06/20/17 08:22 06/20/17 07:24 06/20/17 07:24 06/20/17 07:24 Intake and Output: 06/20/17 06/20/17 06:59 18:59 Intake Total 600 Balance 600 - Medications Medications: Current Medications Acetaminophen (Tylenol 325mg Tab) 650 mg PO Q6 PRN PRN Reason: fever/pain Last Admin: 06/17/17 23:39 Dose: 650 mg Benztropine Mesylate (Cogentin) 1 mg IM BID PRN PRN Reason: EXTRAPYRAMIDAL SYMTPOMS Cyanocobalamin (Vitamin B12 1000 Mcg Tab) 1,000 mcg PO DAILY [facility] Dextrose (Dextrose 50% Inj) 0 ml IV STAT PRN; Protocol PRN Reason: Hypoglycemia Protocol Last Admin: 06/20/17 06:25 Dose: 50 ml Dextrose (Glutose 15) 0 gm PO ONCE PRN; Protocol PRN Reason: Hypoglycemia Protocol Diphenhydramine HCl (Benadryl) 50 mg IVP Q6H PRN PRN Reason: Itching / Pruritus Last Admin: 06/20/17 09:58 Dose: 50 mg Ergocalciferol (Drisdol 50,000 Intl Units Cap) [address] [facility] Last Admin: 06/16/17 10:13 Dose: Not Given Erythromycin (Erythromycin) [address] [facility] Last Admin: 06/10/17 06:12 Dose: 250 mg Ferrous Sulfate (Feosol) 325 mg PO BID [facility] Folic Acid (Folic Acid) 1 mg PO DAILY [facility] Glucagon (Glucagen Diagnostic Kit) 0 mg IM STAT PRN; Protocol PRN Reason: Hypoglycemia Protocol Haloperidol Lactate (Haldol) 5 mg IM BID PRN PRN Reason: Agitation Last Admin: 06/20/17 09:37 Dose: 5 mg Heparin Sodium (Porcine) (Heparin) 5,[address] [facility] Last Admin: 06/20/17 05:11 Dose: 5,000 units Hydralazine HCl (Apresoline) 10 mg IVP Q6H PRN PRN Reason: SBP >160 Last Admin: 06/19/17 10:45 Dose: 10 mg Levetiracetam 500 mg/ Sodium (Chloride) 105 mls @ 420 mls/hr IVPB Q12H [facility] Last Admin: 06/20/17 08:00 Dose: 420 mls/hr Sodium Chloride (Sodium Chloride 0.45%) 1,000 mls @ 75 mls/hr IV .[id number] [facility] Last Admin: 06/20/17 01:23 Dose: 75 mls/hr Dextrose (Dextrose 5% In Water 1000 Ml) 1,000 mls @ 0 mls/hr IV .Q0M PRN; Protocol; Per Protocol PRN Reason: Hypoglycemia Protocol Insulin Glargine (Lantus) 15 unit SC [facility] Last Admin: 06/19/17 22:13 Dose: 15 u Insulin Human Regular (Novolin R) [address] [facility] PRN Reason: Protocol Last Admin: 06/20/17 07:30 Dose: 2 unit Labetalol HCl (Trandate) [address] [facility] Losartan Potassium (Cozaar) [address] [facility] Nifedipine (Procardia Xl) [address] [facility] Ondansetron HCl (Zofran Inj) [address] [facility] Last Admin: 06/20/17 07:50 Dose: 4 mg Pantoprazole Sodium (Protonix Ec Tab) [address] [facility] Pantoprazole Sodium (Protonix Inj) [address] [facility] Last Admin: 06/20/17 09:37 Dose: 40 mg Prochlorperazine (Compazine Tab) [address] [facility] Last Admin: 06/20/17 02:45 Dose: 5 mg Sertraline HCl (Zoloft) [address] [facility] Last Admin: 06/19/17 22:13 Dose: 50 mg - Labs Labs: 06/20/17 04:00 06/20/17 08:51 - Additional Findings Additional findings: - Constitutional Appears: Non-toxic, No Acute Distress - Head Exam Head Exam: ATRAUMATIC, NORMOCEPHALIC - Eye Exam Eye Exam: EOMI - ENT Exam ENT Exam: Mucous Membranes Moist - Respiratory Exam Respiratory Exam: Clear to Ausculation Bilateral, NORMAL BREATHING PATTERN. absent: Accessory Muscle Use, Rales, Rhonchi, Wheezes, Respiratory Distress - Cardiovascular Exam Cardiovascular Exam: REGULAR RHYTHM, +S1, +S2 - GI/Abdominal Exam GI & Abdominal Exam: Guarding (LUQ), Soft, Tenderness (LUQ), Normal Bowel Sounds. absent: Distended, Firm, Rigid - Extremities Exam Extremities Exam: absent: Calf Tenderness, Pedal Edema - Neurological Exam Neurological Exam: Alert, Awake, Oriented x3 - Psychiatric Exam Psychiatric exam: Depressed Additional comments: crying. - Skin Skin Exam: Dry, Warm Assessment and Plan - Assessment and Plan (Free Text) Plan: Pseudo-seizures, Depression - Munchausen Syndrome Psychiatry consulted, Dr. New - help appreciated 06/20/17- Patient is calm today. Requested diet to be advanced since she has not had nausea or vomiting. 06/19/17 - Patient still seen sticking her fingers down her throat on [employer] system. They are informing the nursing staff that she is sticking her fingers down her throat to force herself to vomit. They also alerted nursing staff of attempting to time body convulsions and stopping convulsions depending on who is present in the room. Patient instructed she is not getting any ativan or dilaudid. She is still crying for pain medications stating that she is in a lot of pain and needs something for the pain. Per nursing staff, patient is now requesting Benadryl because "it helps with the pain in my stomach." Nursing staff has refused to give it to the patient and informed the patient that that is not how the medication works. Dr. Hendrickson supports this decision. Patient is still causing a large amount time to be spent on her. She has been repeatedly instructed to stop faking these symptoms as she is causing actual harm to her body. She was told by Dr. King that we are currently in the process of attempting to get her involuntarily committed to get her the help she really needs. Patient began to cry and stated she understands. 06/18/17 - [facility] came to screen the patient this morning. Upon entering the room the patient vomited. Per the cover sheet, the patient was not screened. Resident Emeka was not notified of any seizures today. Patient was however refusing all medications, blood work and blood glucose checks until late in the afternoon. Patient is requesting susannah mana and wants to eat, even though she is still vomiting. Dr. King is planning on speaking to Dr. New about the next steps that we can take to get the patient the help she needs. 06/17/17 - Patient is attempting seizure activity. During whole body convulsions there is no trismus, no nystagmus, no tongue biting, no loss of bowels, negative drop arm test. Resident Emeka attempted to elicit the corneal reflex during a convulsion event, in which the patient closed her left eye only and moved her head immediately backwards upon resident Emeka touching her eye. Upon resolution of the convulsions, the patient sometimes will have a downward deviated gaze for a few minutes then return to baseline with no confusion. Other times, there is no deviated gaze and patient returns to baseline with no confusion immediately following convulsions. Patient usually asks for Ativan or pain medication upon resolution of convulsions because they help with her seizures. Paperwork was faxed over to [facility]'s psych department. Awaiting psych eval for involuntary inpatient psych. Patient's mother is in support of this decision. "My daughter needs help. This just keeps getting worse." 06/16/17 - Patient has not attempted any "seizures" today. Spoke with Dr. New about patient today. Patient was started on Haldol 5mg IM BID and Cogentin 1mg IM BID. Patient has extensive history of acting out (stealing juices/other peoples food when she is NPO, crying for pain medications constantly), faking symptoms (ie stating she is having a seizure when she is simultaneously requesting Ativan (by name) and actively shaking), causing damage to herself ( misuse of her insulin, taking insulin then refusing to eat or refusing to take her insulin and eating/drinking a lot of sugar to increase her glucose levels to get admitted.). Due to this extensive history and the patient actively doing damage to her health, it is our recommendation that the patient be transferred to inpatient psych. [facility] inpatient psych has been called and case discussed with nurse Jimenez . Nurse Barbara stated that a physician will be sent over to evaluate patient today. Patient's mother and sister, Urszula, were at bedside today. Resident Emeka discussed the plan and they both agree with the current suggestion of inpatient psych treatment. Urszula (sister) "She has always had stomach problems but things have just been getting worse and worse over the past two to three years. Our relationship has deteriorated over the past year and a half because she will not listen to me. I can see how it is affecting my mom. The patient's mother stated "Everytime we leave the hospital she is feeling better. I make sure she takes her insulin and everything seems to be ok. But once we get home she leaves and goes out with her friends. She fights with me and won't take her medications. She has stated, "I am tired. I am ok if I ." Mother and sister both support the patient being transferred to inpatient psych because they have seen a steady decline in her health and mental state as she is acting out more and more often. CORRECTION - Patient attempted multiple seizures throughout the day per nursing staff, but they were quickly resolved each time with the patient requesting pain medications upon resolution of convulsions. Patient did not have any "seizures" during the time her older sister, Urszula, was present. 06/14/17 - No machine sorter throughout the day. Patient started on clear liquid diet. Awaiting psych eval. 06/13/17 - Patient was evaluated by Psych yesterday, per the patient's mother. Awaiting recommendations. Patient is still wearing alcohol wipes on her nose. 06/12/17 - Patient is still stealing food and juices, self-inducing vomiting, faking seizures and now ripping up alcohol wipes and throwing them around her room. She is placing alcohol wipes and leaving them resting on her nose for unknown reasons. Patient is refusing to speak to Resident Emeka this morning at time of exam. She was instructed she needed to stop these actions as we can not have a repeat of yesterday. Patient rolled way from Dr. Hendrickson. 06/11/17 - She is stealing food and juices from the nutrition station even though she is NPO. She is also stealing drinks and food from her roommate's tray. She is then turning around and vomiting. She states she is not faking. [employer] system is present in room. They are reporting to the nurses that the patient is consistently sticking her fingers down her throat to induce vomiting. Resident Emeka told her to stop faking the seizures. She states she is not faking. When asked by Dr. King why she feels like she is having seizures, she stated "I get a birch of warmth. I don't know. Sometimes when my sugars get too low as well. I'm not really sure. It's just always how my seizures have been." When instructed that these are not consistent with real seizures, patient became up set. She apologized to Dr. Hendrickson, stating that she was sorry for her actions throughout the day. She states she will not do it anymore. Patient's mother was present during this conversation with Dr. King in the room. It was explained to the mother that this is believed to be all psych. The mother agrees. She states she just does not know what to do any longer. "My daughter needs mental help. I do not want to lose her." Dr. King instructed her that this is indeed a very important/dangerous issue and will need to be addressed by a psychiatrist. Current medications: Haldol 5mg IM BID Cogentin 1mg IM BID Benadryl 50mg IVP q6h prn Zoloft 50 HS started on 06/15 Nausea and vomiting secondary to gastroparesis Dilaudid 1mg IV Q8h prn - discontinued. No more pain medication of any type at this time. If patient is vomit free for 48 hours, can relook into pain medications but no more dilaudid for this hospital stay. 1/2 NS decreased to 75mL/hr on 06/15/16 Zofran 4mg IVP q8h Compazine 5mg PO q6h - hold due to dry heaving. Uncontrolled diabetes mellitus Accuchecks A1c: 7.7 Hypoglycemia protocol ISS high dose Lantus 15 units HS (home medication) - restarted Continue to monitor Hypertensive urgency On admission: 238/130 Monitor on telemetry - normal sinus @88 bpm Continued home medications: Nifedipine 60mg daily, Losartan 25mg daily, labetalol 200mg PO BID - hold due to dry heaving. Hydralazine 10mg IV Q6 prn for SBP >160 Prophylactic measure SCDs, Heparin 5000u SC Q8 Protonix 40mg IVP daily Folic Acid 1mg PO daily - hold due to dry heaving. Ferrous Sulfate 325mg PO BID - hold due to dry heaving. Vitamin B12 1000mcg PO daily - hold due to dry heaving. Seizure precaution Telemetry CLD DW Dr. King, Saloni Salazar DO, PGY-1
[2017-06-20] MEDS ORDERED: Potassium Chloride 20 mEq/15 ml LIQ UD PO ONE ×2 (17:01→19:45)
[2017-06-20] MEDS: (Lantus) Insulin Glargine, Recombinant SC SCH (22:45)
[2017-06-21] MEDS: (Novolin R) Insulin Human Regular 100 units/ml vial SC SCH ×3 (01:50→19:00)
--- NOTE | 2017-06-21 03:56 | CP.PCM.PN ---
Subjective - Date & Time of Evaluation Date of Evaluation: 06/21/17 Time of Evaluation: 03:52 - Subjective Subjective: Patient seen and examined at bedside. Patient resting comfortably in bed with no new complaints at this time. Patient appears tired. Tolerating new liquid diet. She denies nausea and vomiting at this time as well as fever, chills, headache, chest pain, SOB, abdominal pain, d/c, and urinary symptoms. Objective - Vital Signs/Intake and Output Vital Signs (last 24 hours): Temp Pulse Resp BP Pulse Ox 98.1 F 95 H 20 195/133 H 97 06/21/17 00:32 06/21/17 00:32 06/21/17 00:32 06/21/17 00:32 06/21/17 00:32 Intake and Output: 06/20/17 06/21/17 18:59 06:59 Intake Total 600 Balance 600 - Medications Medications: Current Medications Acetaminophen (Tylenol 325mg Tab) 650 mg PO Q6 PRN PRN Reason: fever/pain Last Admin: 06/17/17 23:39 Dose: 650 mg Benztropine Mesylate (Cogentin) 1 mg IM BID PRN PRN Reason: EXTRAPYRAMIDAL SYMTPOMS Cyanocobalamin (Vitamin B12 1000 Mcg Tab) 1,000 mcg PO DAILY [facility] Dextrose (Dextrose 50% Inj) 0 ml IV STAT PRN; Protocol PRN Reason: Hypoglycemia Protocol Last Admin: 06/20/17 06:25 Dose: 50 ml Dextrose (Glutose 15) 0 gm PO ONCE PRN; Protocol PRN Reason: Hypoglycemia Protocol Diphenhydramine HCl (Benadryl) 50 mg IVP Q6H PRN PRN Reason: Itching / Pruritus Last Admin: 06/20/17 23:54 Dose: 50 mg Ergocalciferol (Drisdol 50,000 Intl Units Cap) 1 cap PO QWK [facility] Last Admin: 06/16/17 10:13 Dose: Not Given Erythromycin (Erythromycin) 250 mg PO Q8 [facility] Last Admin: 06/10/17 06:12 Dose: 250 mg Ferrous Sulfate (Feosol) 325 mg PO BID [facility] Folic Acid (Folic Acid) 1 mg PO DAILY [facility] Glucagon (Glucagen Diagnostic Kit) 0 mg IM STAT PRN; Protocol PRN Reason: Hypoglycemia Protocol Haloperidol Lactate (Haldol) 5 mg IM BID PRN PRN Reason: Agitation Last Admin: 06/20/17 09:37 Dose: 5 mg Heparin Sodium (Porcine) (Heparin) 5,000 units SC Q8 [facility] Last Admin: 06/20/17 22:40 Dose: Not Given Hydralazine HCl (Apresoline) 10 mg IVP Q6H PRN PRN Reason: SBP >160 Last Admin: 06/21/17 00:02 Dose: 10 mg Levetiracetam 500 mg/ Sodium (Chloride) 105 mls @ 420 mls/hr IVPB Q12H [facility] Last Admin: 06/20/17 20:15 Dose: 420 mls/hr Sodium Chloride (Sodium Chloride 0.45%) 1,000 mls @ 75 mls/hr IV .[id number] [facility] Last Admin: 06/20/17 13:50 Dose: 75 mls/hr Dextrose (Dextrose 5% In Water 1000 Ml) 1,000 mls @ 0 mls/hr IV .Q0M PRN; Protocol; Per Protocol PRN Reason: Hypoglycemia Protocol Insulin Glargine (Lantus) 15 unit SC [facility] Last Admin: 06/20/17 22:45 Dose: Not Given Insulin Human Regular (Novolin R) 0 unit SC Q6H [facility] PRN Reason: Protocol Last Admin: 06/21/17 01:50 Dose: 3 unit Labetalol HCl (Trandate) 200 mg PO BID [facility] Losartan Potassium (Cozaar) 25 mg PO DAILY [facility] Nifedipine (Procardia Xl) 60 mg PO DAILY [facility] Ondansetron HCl (Zofran Inj) 4 mg IVP Q4H [facility] Last Admin: 06/20/17 23:53 Dose: 4 mg Pantoprazole Sodium (Protonix Ec Tab) 40 mg PO DAILY [facility] Pantoprazole Sodium (Protonix Inj) 40 mg IVP Q12H [facility] Last Admin: 06/20/17 22:45 Dose: Not Given Prochlorperazine (Compazine Tab) 5 mg PO Q6H [facility] Last Admin: 06/21/17 01:49 Dose: 5 mg Sertraline HCl (Zoloft) 50 mg PO [facility] Last Admin: 06/20/17 22:45 Dose: Not Given - Labs Labs: 06/20/17 04:00 06/20/17 08:51 - Additional Findings Additional findings: - Constitutional Appears: Non-toxic, No Acute Distress - Head Exam Head Exam: ATRAUMATIC, NORMOCEPHALIC - Eye Exam Eye Exam: EOMI - ENT Exam ENT Exam: Mucous Membranes Moist - Respiratory Exam Respiratory Exam: Clear to Ausculation Bilateral, NORMAL BREATHING PATTERN. absent: Accessory Muscle Use, Rales, Rhonchi, Wheezes, Respiratory Distress - Cardiovascular Exam Cardiovascular Exam: REGULAR RHYTHM, +S1, +S2 - GI/Abdominal Exam GI & Abdominal Exam: Guarding (LUQ), Soft, Tenderness (LUQ), Normal Bowel Sounds. absent: Distended, Firm, Rigid - Extremities Exam Extremities Exam: absent: Calf Tenderness, Pedal Edema - Neurological Exam Neurological Exam: Alert, Awake, Oriented x3 - Psychiatric Exam Psychiatric exam: Depressed Assessment and Plan - Assessment and Plan (Free Text) Plan: Pseudo-seizures, Depression - Munchausen Syndrome Psychiatry consulted, Dr. New - help appreciated 06/20/17- Patient is calm today. Requested diet to be advanced since she has not had nausea or vomiting. 06/19/17 - Patient still seen sticking her fingers down her throat on [employer] system. They are informing the nursing staff that she is sticking her fingers down her throat to force herself to vomit. They also alerted nursing staff of attempting to time body convulsions and stopping convulsions depending on who is present in the room. Patient instructed she is not getting any ativan or dilaudid. She is still crying for pain medications stating that she is in a lot of pain and needs something for the pain. Per nursing staff, patient is now requesting Benadryl because "it helps with the pain in my stomach." Nursing staff has refused to give it to the patient and informed the patient that that is not how the medication works. Dr. Hendrickson supports this decision. Patient is still causing a large amount time to be spent on her. She has been repeatedly instructed to stop faking these symptoms as she is causing actual harm to her body. She was told by Dr. King that we are currently in the process of attempting to get her involuntarily committed to get her the help she really needs. Patient began to cry and stated she understands. 06/18/17 - [facility] came to screen the patient this morning. Upon entering the room the patient vomited. Per the cover sheet, the patient was not screened. Resident Emeka was not notified of any seizures today. Patient was however refusing all medications, blood work and blood glucose checks until late in the afternoon. Patient is requesting susannah mana and wants to eat, even though she is still vomiting. Dr. King is planning on speaking to Dr. New about the next steps that we can take to get the patient the help she needs. 06/17/17 - Patient is attempting seizure activity. During whole body convulsions there is no trismus, no nystagmus, no tongue biting, no loss of bowels, negative drop arm test. Resident Emeka attempted to elicit the corneal reflex during a convulsion event, in which the patient closed her left eye only and moved her head immediately backwards upon resident Emeka touching her eye. Upon resolution of the convulsions, the patient sometimes will have a downward deviated gaze for a few minutes then return to baseline with no confusion. Other times, there is no deviated gaze and patient returns to baseline with no confusion immediately following convulsions. Patient usually asks for Ativan or pain medication upon resolution of convulsions because they help with her seizures. Paperwork was faxed over to [facility] psych department. Awaiting psych eval for involuntary inpatient psych. Patient's mother is in support of this decision. "My daughter needs help. This just keeps getting worse." 06/16/17 - Patient has not attempted any "seizures" today. Spoke with Dr. New about patient today. Patient was started on Haldol 5mg IM BID and Cogentin 1mg IM BID. Patient has extensive history of acting out (stealing juices/other peoples food when she is NPO, crying for pain medications constantly), faking symptoms (ie stating she is having a seizure when she is simultaneously requesting Ativan (by name) and actively shaking), causing damage to herself ( misuse of her insulin, taking insulin then refusing to eat or refusing to take her insulin and eating/drinking a lot of sugar to increase her glucose levels to get admitted.). Due to this extensive history and the patient actively doing damage to her health, it is our recommendation that the patient be transferred to inpatient psych. [facility] inpatient psych has been called and case discussed with nurse Jimenez . Nurse Jimenez stated that a physician will be sent over to evaluate patient today. Patient's mother and sister, Urszula, were at bedside today. Resident Emeka discussed the plan and they both agree with the current suggestion of inpatient psych treatment. Urszula (sister) "She has always had stomach problems but things have just been getting worse and worse over the past two to three years. Our relationship has deteriorated over the past year and a half because she will not listen to me. I can see how it is affecting my mom. The patient's mother stated "Everytime we leave the hospital she is feeling better. I make sure she takes her insulin and everything seems to be ok. But once we get home she leaves and goes out with her friends. She fights with me and won't take her medications. She has stated, "I am tired. I am ok if I ." Mother and sister both support the patient being transferred to inpatient psych because they have seen a steady decline in her health and mental state as she is acting out more and more often. CORRECTION - Patient attempted multiple seizures throughout the day per nursing staff, but they were quickly resolved each time with the patient requesting pain medications upon resolution of convulsions. Patient did not have any "seizures" during the time her older sister, Urszula, was present. 06/14/17 - No senior designer throughout the day. Patient started on clear liquid diet. Awaiting psych eval. 06/13/17 - Patient was evaluated by Psych yesterday, per the patient's mother. Awaiting recommendations. Patient is still wearing alcohol wipes on her nose. 06/12/17 - Patient is still stealing food and juices, self-inducing vomiting, faking seizures and now ripping up alcohol wipes and throwing them around her room. She is placing alcohol wipes and leaving them resting on her nose for unknown reasons. Patient is refusing to speak to Resident Emeka this morning at time of exam. She was instructed she needed to stop these actions as we can not have a repeat of yesterday. Patient rolled way from Dr. Hendrickson. 06/11/17 - She is stealing food and juices from the nutrition station even though she is NPO. She is also stealing drinks and food from her roommate's tray. She is then turning around and vomiting. She states she is not faking. [employer] system is present in room. They are reporting to the nurses that the patient is consistently sticking her fingers down her throat to induce vomiting. Resident Emeka told her to stop faking the seizures. She states she is not faking. When asked by Dr. King why she feels like she is having seizures, she stated "I get a birch of warmth. I don't know. Sometimes when my sugars get too low as well. I'm not really sure. It's just always how my seizures have been." When instructed that these are not consistent with real seizures, patient became up set. She apologized to Dr. Hendrickson, stating that she was sorry for her actions throughout the day. She states she will not do it anymore. Patient's mother was present during this conversation with Dr. King in the room. It was explained to the mother that this is believed to be all psych. The mother agrees. She states she just does not know what to do any longer. "My daughter needs mental help. I do not want to lose her." Dr. King instructed her that this is indeed a very important/dangerous issue and will need to be addressed by a psychiatrist. Current medications: Haldol 5mg IM BID Cogentin 1mg IM BID Benadryl 50mg IVP q6h prn Zoloft 50 HS started on 06/15 Nausea and vomiting secondary to gastroparesis Dilaudid 1mg IV Q8h prn - discontinued. No more pain medication of any type at this time. If patient is vomit free for 48 hours, can relook into pain medications but no more dilaudid for this hospital stay. 1/2 NS decreased to 75mL/hr on 06/15/16 Zofran 4mg IVP q8h Compazine 5mg PO q6h - hold due to dry heaving. Uncontrolled diabetes mellitus Accuchecks A1c: 7.7 Hypoglycemia protocol ISS high dose Lantus 15 units HS (home medication) - restarted Continue to monitor Hypertensive urgency On admission: 238/130 Monitor on telemetry - normal sinus @88 bpm Continued home medications: Nifedipine 60mg daily, Losartan 25mg daily, labetalol 200mg PO BID - hold due to dry heaving. Hydralazine 10mg IV Q6 prn for SBP >160 Prophylactic measure SCDs, Heparin 5000u SC Q8 Protonix 40mg IVP daily Folic Acid 1mg PO daily - hold due to dry heaving. Ferrous Sulfate 325mg PO BID - hold due to dry heaving. Vitamin B12 1000mcg PO daily - hold due to dry heaving. Seizure precaution Telemetry CLD
[2017-06-21] MEDS: levETIRAcetam 500 MG in Sodium Chloride 0.9% 100 ML IVPB SCH ×2 (08:57→19:33)
[2017-06-21 09:20] LABS: BASO # 0.1 K/uL (0.0-0.2); BASO % 1.2 % (0.0-2.0); EOS # 0.1 K/uL (0.0-0.7); EOS % 1.6 % (0.0-4.0); LYMPH # 3.7 K/uL (1.0-4.3); LYMPH % 58.2 % (20.0-40.0); MEAN CELL VOLUME 84.6 fL (81.0-99.0); MEAN CORPUSCULAR HEMOGLOBIN 28.4 pg (27.0-31.0); MEAN CORPUSCULAR HGB CONC 33.6 g/dL (33.0-37.0); MEAN PLATELET VOLUME 10.7 fL (7.2-11.7); MONO # 0.4 K/uL (0.0-0.8); MONO % 6.1 % (0.0-10.0); NEUT # 2.1 K/uL (1.8-7.0); NEUT % 32.9 % (50.0-75.0); RBC 4.34 Mil/uL (3.80-5.20); RED CELL DISTRIBUTION WIDTH 14.3 % (11.5-14.5); WHITE BLOOD COUNT 6.3 K/uL (4.8-10.8)
[2017-06-21 09:28] LABS: HEMOGLOBIN 12.3 g/dL (11.0-16.0)
[2017-06-21 09:38] LABS: ALB/GLOB RATIO 0.9 (1.0-2.1); ALBUMIN 2.6 g/dL (3.5-5.0); CALCIUM 8.8 mg/dl (8.6-10.4); MAGNESIUM 1.9 mg/dL (1.6-2.3)
[2017-06-21] MEDS ORDERED: Potassium Chloride 20 mEq/15 ml LIQ UD PO ONE (12:00)
[2017-06-21] MEDS: Sodium Chloride 0.45% 1,000 ML IV SCH (12:41)
[2017-06-21] MEDS: DiphenhydrAMINE 50 mg/ml Inj IVP PRN (19:21)
[2017-06-21] MEDS: (Lantus) Insulin Glargine, Recombinant SC SCH (22:23)
[2017-06-22] MEDS: DiphenhydrAMINE 50 mg/ml Inj IVP PRN ×3 (01:36→14:54)
[2017-06-22] MEDS: (Novolin R) Insulin Human Regular 100 units/ml vial SC SCH ×4 (01:53→19:24)
[2017-06-22] MEDS: Sodium Chloride 0.45% 1,000 ML IV SCH (04:40)
[2017-06-22] MEDS: levETIRAcetam 500 MG in Sodium Chloride 0.9% 100 ML IVPB SCH ×2 (08:21→20:00)
[2017-06-22 11:45] LABS: ALB/GLOB RATIO 0.8 (1.0-2.1); ALBUMIN 2.2 g/dL (3.5-5.0); CALCIUM 7.9 mg/dl (8.6-10.4); MAGNESIUM 1.8 mg/dL (1.6-2.3)
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
[2017-06-22 16:45] VITALS: O2SAT 99
[2017-06-22] MEDS: (Lantus) Insulin Glargine, Recombinant SC SCH (21:37)
[2017-06-23] MEDS: DiphenhydrAMINE 50 mg/ml Inj IVP PRN ×2 (00:59→08:30)
[2017-06-23] MEDS: (Novolin R) Insulin Human Regular 100 units/ml vial SC SCH ×3 (03:00→13:40)
[2017-06-23 08:02] VITALS: BP 158/99; PULSE 85; TEMP 97.9
[2017-06-23 08:17] LABS: BASO # 0.1 K/uL (0.0-0.2); BASO % 0.8 % (0.0-2.0); EOS % 0.5 % (0.0-4.0); LYMPH # 3.3 K/uL (1.0-4.3); LYMPH % 35.5 % (20.0-40.0); MEAN CELL VOLUME 84.6 fL (81.0-99.0); MEAN CORPUSCULAR HEMOGLOBIN 28.7 pg (27.0-31.0); MEAN CORPUSCULAR HGB CONC 33.9 g/dL (33.0-37.0); MEAN PLATELET VOLUME 10.5 fL (7.2-11.7); MONO # 0.4 K/uL (0.0-0.8); MONO % 4.8 % (0.0-10.0); NEUT # 5.4 K/uL (1.8-7.0); NEUT % 58.4 % (50.0-75.0); NRBC % 0.1 % (0.0-2.0); RBC 3.29 Mil/uL (3.80-5.20); RED CELL DISTRIBUTION WIDTH 14.8 % (11.5-14.5); WHITE BLOOD COUNT 9.3 K/uL (4.8-10.8)
[2017-06-23 08:20] LABS: HEMOGLOBIN 9.4 g/dL (11.0-16.0)
[2017-06-23 08:24] LABS: ALB/GLOB RATIO 0.9 (1.0-2.1); ALBUMIN 2.2 g/dL (3.5-5.0); CALCIUM 8.2 mg/dl (8.6-10.4); MAGNESIUM 1.7 mg/dL (1.6-2.3)
[2017-06-23] MEDS: levETIRAcetam 500 MG in Sodium Chloride 0.9% 100 ML IVPB SCH (08:24)
[2017-06-23] MEDS ORDERED: Sodium Chloride 0.9% 1,000 ML IV SCH (09:00)
[2017-06-23] MEDS: Ergocalciferol 50,000 Intl Units Cap PO SCH (09:21)
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
== END 2017-06-23 18:24 | disposition home or self-care (01) | DRG 18 ==
LOC: C.ER 16:29 → C.9E 18:21 → C.6T 06-10 14:04 → C.5S 06-10 14:08
PROVIDERS: ADMIT Internal Medicine; ATTEND Internal Medicine
PROC: GZHZZZZ Group Psychotherapy (ICD-10-PCS; principal; 2017-06-11)
PROC: GZ56ZZZ Individual Psychotherapy, Supportive (ICD-10-PCS; 2017-06-11)
PROC: GZ3ZZZZ Medication Management (ICD-10-PCS; 2017-06-11)
DX: E11.43 Type 2 diabetes mellitus with diabetic autonomic (poly)neuropathy (principal); E11.65 Type 2 diabetes mellitus with hyperglycemia; K31.84 Gastroparesis; I16.0 Hypertensive urgency; G40.909 Epilepsy, unspecified, not intractable, without status epilepticus; F32.9 Major depressive disorder, single episode, unspecified; F68.10 Factitious disorder imposed on self, unspecified; I10 Essential (primary) hypertension; F12.10 Cannabis abuse, uncomplicated; Z79.4 Long term (current) use of insulin; Z79.899 Other long term (current) drug therapy

== ENCOUNTER 2017-09-21 22:50 | Inpatient (IN) | payer MEDICAID ==
[2017-09-21 22:50] VITALS: BMI 25.6
--- NOTE | 2017-09-21 23:24 | C.PDOC ---
History Of Present Illness 27 year old female with PMHx of DM, gastroparesis and psuedo seizures presents to the ED c/o nausea and vomiting today. 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 Patient has been known to self induce vomiting in order to receive Ativan and Dilaudid for pain. Patient was last admitted in May 2017. Patient denies fever, chill, diarrhea, CP< SOB, back pain, weakness, numbness, headache, dizziness. Time Seen by Provider: 09/21/17 23:24 Chief Complaint (Nursing): Abdominal Pain History Per: Patient History/Exam Limitations: no limitations Onset/Duration Of Symptoms: Hrs Current Symptoms Are (Timing): Still Present Context: Other Severity: Moderate Pain Scale Rating Of: 5 Location Of Pain/Discomfort: Diffuse Radiation Of Pain To:: None Quality Of Discomfort: Cramping Associated Symptoms: Nausea, Vomiting Exacerbating Factors: None Alleviating Factors: None Last Bowel Movement: Today Recent travel outside of the [place]: No Additional History Per: Patient Abnormal Vaginal Bleeding: No Past Medical History Reviewed: Historical Data, Nursing Documentation, Vital Signs Vital Signs: Last Vital Signs Temp 98.7 F 09/21/17 23:00 Pulse 86 09/22/17 02:19 Resp 14 09/22/17 02:19 BP 138/85 09/22/17 02:19 Pulse Ox 100 09/22/17 02:19 - Medical History PMH: Anemia, Anxiety, Depression, Diabetes, HTN, Seizures Denies: Chronic Kidney Disease Surgical History: No Surg Hx - [facility] Procedures EXCISION OF STOMACH, ENDO, DIAGN (11/02/16) EXCISION OF STOMACH, PYLORUS, ENDO, DIAGN (03/10/17) GROUP PSYCHOTHERAPY (06/09/17) INDIVIDUAL PSYCHOTHERAPY, SUPPORTIVE (06/09/17) INSERTION OF INFUSION DEV INTO L SUBCLAV VEIN, PERC APPROACH (10/28/16) INSERTION OF INFUSION DEV INTO SUP VENA CAVA, PERC APPROACH (11/02/16) INTRODUCTION OF NUTRITIONAL INTO PERIPH VEIN, PERC APPROACH (10/16/16) MEDICATION MANAGEMENT (06/09/17) ULTRASONOGRAPHY OF SUPERIOR VENA CAVA, GUIDANCE (10/16/16) Family History: States: Unknown Family Hx - Social History Hx Alcohol Use: No Hx Substance Use: No - Immunization History Hx Tetanus Toxoid Vaccination: No Hx Influenza Vaccination: Yes Hx Pneumococcal Vaccination: Yes Review Of Systems Constitutional: Negative for: Fever, Chills ENT: Negative for: Throat Pain Cardiovascular: Negative for: Chest Pain Respiratory: Negative for: Shortness of Breath Gastrointestinal: Positive for: Nausea, Vomiting. Negative for: Abdominal Pain Genitourinary: Negative for: Dysuria Musculoskeletal: Negative for: Back Pain Skin: Negative for: Rash Neurological: Negative for: Headache, Dizziness Psych: Positive for: Anxiety Physical Exam - Physical Exam Appears: Non-toxic Skin: Warm, Dry Head: Normacephalic Eye(s): bilateral: Normal Inspection Oral Mucosa: Moist Throat: No Erythema, No Exudate Neck: Supple Chest: Symmetrical Cardiovascular: Rhythm Regular Respiratory: No Rales, No Rhonchi, No Wheezing Gastrointestinal/Abdominal: Soft, Tenderness, No Distention, No Guarding, No Rebound Back: Normal Inspection Extremity: No Tenderness, No Swelling Extremity: Bilateral: Atraumatic, Normal Color And Temperature, Normal ROM Neurological/Psych: Oriented x3, Normal Speech Gait: Steady ED Course And Treatment - Laboratory Results Result Diagrams: 09/21/17 23:22 09/21/17 23:22 ECG: Interpreted By Me, Viewed By Me ECG Rhythm: Sinus Rhythm (94), Nonspecific Changes O2 Sat by Pulse Oximetry: 100 (ON RA) Pulse Ox Interpretation: Normal Progress Note: Plan: - Labs. - Protonix 40 mg IVP. - Reglan 10 mg IVP. - IV fluids. - Zofran 4 mg IVP. - UA Disposition Discussed With DrTabby: Reza King Jr. Comment: acceptd the pt on his service and took over the care at 2:36AM Doctor Will See Patient In The: ED Counseled Patient/Family Regarding: Studies Performed, Diagnosis - Disposition Disposition: HOSPITALIZED Disposition Time: 23:24 Condition: FAIR Forms: [facility] ([place]) - POA Present On Arrival: Poor Glycemic Control - Clinical Impression Clinical Impression: Uncontrolled diabetes mellitus, Gastroparesis, Dehydration, Renal insufficiency - Scribe Statement The provider has reviewed the documentation as recorded by the Scribelvis Sibley All medical record entries made by the Scribe were at my direction and personally dictated by me. I have reviewed the chart and agree that the record accurately reflects my personal performance of the history, physical exam, medical decision making, and the department course for this patient. I have also personally directed, reviewed, and agree with the discharge instructions and disposition. Decision To Admit - Pt Status Changed To: Hospital Disposition Of: Inpatient - Admit Certification Admit to Inpatient:: After my assessment, the patient will require hospitalization for at least two midnights. This is because of the severity of symptoms shown, intensity of services needed, and/or the medical risk in this patient being treated as an outpatient. - InPatient: Physician Admission Certification:: After my assessment, the patient will require hospitalization for at least two midnights. This is because of the severity of symptoms shown, intensity of services needed, and/or the medical risk in this patient being treated as an outpatient. - . Bed Request Type: Regular Admitting Physician: Reza King Jr. Patient Diagnosis: Uncontrolled diabetes mellitus, Gastroparesis, Dehydration, Renal insufficiency
[2017-09-21] MEDS ORDERED: Sodium Chloride 0.9% 1,000 ML IV ONE (23:26)
[2017-09-21 23:27] LABS: BASO # 0.1 K/uL (0.0-0.2); BASO % 0.8 % (0.0-2.0); EOS # 0.1 K/uL (0.0-0.7); EOS % 1.1 % (0.0-4.0); LYMPH # 2.7 K/uL (1.0-4.3); LYMPH % 30.1 % (20.0-40.0); MEAN CORPUSCULAR HGB CONC 33.4 g/dL (33.0-37.0); MEAN PLATELET VOLUME 10.4 fL (7.2-11.7); MONO # 0.6 K/uL (0.0-0.8); MONO % 6.7 % (0.0-10.0); NEUT # 5.5 K/uL (1.8-7.0); NEUT % 61.3 % (50.0-75.0); NRBC % 0.1 % (0.0-2.0); RBC 4.14 Mil/uL (3.80-5.20); RED CELL DISTRIBUTION WIDTH 14.1 % (11.5-14.5)
[2017-09-21 23:28] LABS: MEAN CELL VOLUME 86.7 fL (81.0-99.0)
[2017-09-21 23:32] LABS: PROTHROMBIN TIME 10.4 SECONDS (9.7-12.2)
[2017-09-21 23:37] LABS: ALB/GLOB RATIO 0.9 (1.0-2.1); CALCIUM 8.9 mg/dl (8.6-10.4)
[2017-09-22 00:30] LABS: BROAD CAST 3 /lpf (0-1); GRANULAR CAST 1 /lpf (0-1); SQUAMOUS EPITHIAL 1 /hpf (0-5); URINE BACTERIA OCC (<OCC); URINE BILIRUBIN NEGATIVE (NEGATIVE); URINE BLOOD NEGATIVE (NEGATIVE); URINE CLARITY Hazy (Clear); URINE COLOR Yellow (YELLOW); URINE GLUCOSE (UA) 1+ mg/dL (Normal); URINE HYALINE CAST 0-2 /lpf (0-2); URINE LEUKOCYTE ESTERASE NEG Leu/uL (Negative); URINE PROTEIN 3+ mg/dL (NEGATIVE); URINE UROBILINOGEN NORMAL mg/dL (0.2-1.0)
[2017-09-22 00:32] LABS: HCG,QUALITATIVE URINE NEGATIVE (NEGATIVE)
[2017-09-22] MEDS ORDERED: Dextrose 50% SYRINGE Inj (50 ml) IV STA (00:37)
[2017-09-22 00:38] LABS: BARBITURATES, UR NEGATIVE (NEGATIVE); BENZODIAZEPINES, UR NEGATIVE (NEGATIVE); OPIATES, UR NEGATIVE (NEGATIVE); PHENCYCLIDINE, UR NEGATIVE (NEGATIVE)
[2017-09-22] MEDS ORDERED: Dextrose 50% SYRINGE Inj (50 ml) ONE (00:40)
[2017-09-22] MEDS ORDERED: Sodium Chloride 0.9% 1,000 ML IV ONE (02:29)
[2017-09-22] MEDS ORDERED: Sodium Chloride 0.9% 1,000 ML ONE (02:39)
[2017-09-22] MEDS ORDERED: Dextrose 50% SYRINGE Inj (50 ml) IV PRN (03:09)
[2017-09-22] MEDS ORDERED: Glucagon Recombinant 1 mg Inj IM PRN (03:09)
[2017-09-22] MEDS: Sodium Chloride 0.9% 1,000 ML IV SCH ×5 (03:15→23:00)
--- NOTE | 2017-09-22 03:18 | CP.PCM.HP ---
History of Present Illness - History of Present Illness History of Present Illness: CC: nausea and vomiting x 2 days Patient is a 27 year old female with a past medical history of DM, HTN, gastroparesis, and seizure disorder (to include pseudo-seizure), who presents to the ED with complaints of vomiting, nausea, and gastroparesis. Patient presents with 2 days of nausea, vomiting. Patient denies sick contacts. Patient states she feels mid-epigastric sharp pain and tightness in chest and back. Patient states she has had this problem for a few months. Upon review of previous records, patient has been here multiple times for similar chief complaints. Patient states that she feels about the same as last time. Patient admits to one episode of diarrhea and states her bowel movements are about 2-3 times per week now that she has an insulin pump. Patient denies fever, dysuria, polyuria, hematuria, melena, hematochezia. In ER: patient was given fluid bolus, creatinine was found to be elevated compared to baseline at 3.3. PMHx: HTN, DM, gastroparesis, seizure disorder (and pseudo-seizures) SurgHx: denies FamHx: Grandmother has DM SocHx: denies tobacco, alcohol, and drug use Allergies: NKDA PMD: Dr. King Present on Admission - Present on Admission Any Indicators Present on Admission: Yes History of DVT/PE: No History of Uncontrolled Diabetes: Yes Urinary Catheter: No Decubitus Ulcer Present: No Review of Systems - Review of Systems All systems: reviewed and no additional remarkable complaints except - Constitutional Constitutional: As Per HPI, Chills. absent: Anorexia, Daytime Sleepiness, Headache - Cardiovascular Cardiovascular: As Per HPI. absent: Chest Pain at Rest, Diaphoresis, Rapid Heart Rate, Slow Heart Rate - Respiratory Respiratory: absent: Cough, Dyspnea - Gastrointestinal Gastrointestinal: Abdominal Pain. absent: Belching, Bloating, Change in Bowel Habits, Change in Stool Character, Diarrhea - Genitourinary Genitourinary: absent: Change in Urinary Stream, Difficulty Urinating, Dysuria - Musculoskeletal Musculoskeletal: absent: Abnormal Gait, Arthralgias Past Patient History - Infectious Disease Hx of Infectious Diseases: None - Past Medical History & Family History Past Medical History?: Yes - Past Social History Smoking Status: Never Smoked - CARDIAC Hx Hypertension: Yes - PULMONARY Hx Respiratory Disorders: No - NEUROLOGICAL Hx Seizures: Yes - HEENT Hx HEENT Problems: Yes Other/Comment: blurred vision both eyes uses eyeglasses - RENAL Hx Chronic Kidney Disease: No - ENDOCRINE/METABOLIC Hx Endocrine Disorders: Yes Hx Diabetes Mellitus Type 2: Yes - HEMATOLOGICAL/ONCOLOGICAL Hx Anemia: Yes - INTEGUMENTARY Hx Dermatological Problems: No - MUSCULOSKELETAL/RHEUMATOLOGICAL Hx Falls: Yes - GASTROINTESTINAL Hx Gastrointestinal Disorders: Yes (SEE COMMENT) Other/Comment: gastroparesis - GENITOURINARY/GYNECOLOGICAL Hx Genitourinary Disorders: No - PSYCHIATRIC Hx Anxiety: Yes Hx Depression: Yes Hx Substance Use: No - SURGICAL HISTORY Hx Surgeries: No - ANESTHESIA Hx Anesthesia: No Hx Anesthesia Reactions: No Hx Malignant Hyperthermia: No Meds Allergies/Adverse Reactions: Allergies Allergy/AdvReac Type Severity Reaction Status Date / Time No Known Allergies Allergy Verified 09/21/17 23:11 Physical Exam - Head Exam Head Exam: ATRAUMATIC, NORMAL INSPECTION, NORMOCEPHALIC - Eye Exam Eye Exam: EOMI, Normal appearance - ENT Exam ENT Exam: Mucous Membranes Moist, Normal Exam - Neck Exam Neck exam: Positive for: Normal Inspection. Negative for: Tenderness, Thyromegaly - Respiratory Exam Respiratory Exam: Clear to Auscultation Bilateral, NORMAL BREATHING PATTERN. absent: Accessory Muscle Use, Wheezes, Respiratory Distress - Cardiovascular Exam Cardiovascular Exam: REGULAR RHYTHM, +S1, +S2. absent: Bradycardia, Tachycardia - GI/Abdominal Exam GI & Abdominal Exam: Normal Bowel Sounds, Soft, Tenderness (no tenderness to palpation of lower quadrants. mild tenderness in mid epigastric). absent: Distended, Firm, Guarding, Rebound, Rigid Additional comments: right lower quadrante insulin pump insertion site. no purulence, erythema - Extremities Exam Extremities exam: Positive for: full ROM, normal inspection. Negative for: pedal edema - Back Exam Back exam: FULL ROM - Neurological Exam Neurological exam: Alert, CN II-XII Intact, Oriented x3 - Psychiatric Exam Psychiatric exam: Normal Affect, Normal Mood - Skin Skin Exam: Dry, Intact, Pallor, Warm Results - Vital Signs Recent Vital Signs: Last Vital Signs Temp 98.7 F 09/21/17 23:00 Pulse 86 09/22/17 02:19 Resp 14 09/22/17 02:19 BP 138/85 09/22/17 02:19 Pulse Ox 100 09/22/17 02:38 - Labs Result Diagrams: 09/21/17 23:22 09/21/17 23:22 Labs: Laboratory Results - last 24 hr 09/21/17 09/21/17 09/21/17 23:22 23:22 23:22 WBC 9.0 RBC 4.14 Hgb 12.0 D Hct 35.9 MCV 86.7 D MCH 29.0 MCHC 33.4 RDW 14.1 Plt Count 318 D MPV 10.4 Neut % (Auto) 61.3 Lymph % (Auto) 30.1 [place] % (Auto) 6.7 Eos % (Auto) 1.1 Baso % (Auto) 0.8 Neut # (Auto) 5.5 Lymph # (Auto) 2.7 [place] # (Auto) 0.6 Eos # (Auto) 0.1 Baso # (Auto) 0.1 PT 10.4 INR 1.0 APTT 33 Sodium 140 Potassium 4.3 Chloride 108 H Carbon Dioxide 18 L Anion Gap 18 BUN 36 H Creatinine 3.3 H Est GFR ( Amer) 20 Est GFR (Non-Af Amer) 17 POC Glucose (mg/dL) Random Glucose 67 Calcium 8.9 Total Bilirubin 0.3 AST 28 ALT 26 Alkaline Phosphatase 148 H D Total Protein 6.5 Albumin 3.0 L D Globulin 3.5 Albumin/Globulin Ratio 0.9 L Urine Color Urine Clarity Urine pH Ur Specific [place] Urine Protein Urine Glucose (UA) Urine Ketones Urine Blood Urine Nitrate Urine Bilirubin Urine Urobilinogen Ur Leukocyte Esterase Urine WBC (Auto) Urine RBC (Auto) Ur Squamous Epith Cells Urine Bacteria Hyaline Casts Granular Casts (Auto) Broad Casts Urine HCG, Qual Urine Opiates Screen Urine Methadone Screen Ur Barbiturates Screen Ur Phencyclidine Scrn Ur Amphetamines Screen U Benzodiazepines Scrn U Oth Cocaine Metabols U Cannabinoids Screen B-Hydroxybutyrate 09/21/17 09/22/17 09/22/17 23:27 00:17 00:17 WBC RBC Hgb Hct MCV MCH MCHC RDW Plt Count MPV Neut % (Auto) Lymph % (Auto) [place] % (Auto) Eos % (Auto) Baso % (Auto) Neut # (Auto) Lymph # (Auto) [place] # (Auto) Eos # (Auto) Baso # (Auto) PT INR APTT Sodium Potassium Chloride Carbon Dioxide Anion Gap BUN Creatinine Est GFR ( Amer) Est GFR (Non-Af Amer) POC Glucose (mg/dL) Random Glucose Calcium Total Bilirubin AST ALT Alkaline Phosphatase Total Protein Albumin Globulin Albumin/Globulin Ratio Urine Color Yellow Urine Clarity Hazy Urine pH 6.0 Ur Specific [place] 1.019 Urine Protein 3+ H Urine Glucose (UA) 1+ Urine Ketones Negative Urine Blood Negative Urine Nitrate Negative Urine Bilirubin Negative Urine Urobilinogen Normal Ur Leukocyte Esterase Neg Urine WBC (Auto) 3 Urine RBC (Auto) 2 Ur Squamous Epith Cells 1 Urine Bacteria Occ H Hyaline Casts 0-2 Granular Casts (Auto) 1 Broad Casts 3 Urine HCG, Qual Negative Urine Opiates Screen Negative Urine Methadone Screen Negative Ur Barbiturates Screen Negative Ur Phencyclidine Scrn Negative Ur Amphetamines Screen Negative U Benzodiazepines Scrn Negative U Oth Cocaine Metabols Negative U Cannabinoids Screen Positive H B-Hydroxybutyrate 0.23 09/22/17 09/22/17 09/22/17 00:27 00:29 01:09 WBC RBC Hgb Hct MCV MCH MCHC RDW Plt Count MPV Neut % (Auto) Lymph % (Auto) [place] % (Auto) Eos % (Auto) Baso % (Auto) Neut # (Auto) Lymph # (Auto) [place] # (Auto) Eos # (Auto) Baso # (Auto) PT INR APTT Sodium Potassium Chloride Carbon Dioxide Anion Gap BUN Creatinine Est GFR ( Amer) Est GFR (Non-Af Amer) POC Glucose (mg/dL) 54 L 53 L 202 H Random Glucose Calcium Total Bilirubin AST ALT Alkaline Phosphatase Total Protein Albumin Globulin Albumin/Globulin Ratio Urine Color Urine Clarity Urine pH Ur Specific [place] Urine Protein Urine Glucose (UA) Urine Ketones Urine Blood Urine Nitrate Urine Bilirubin Urine Urobilinogen Ur Leukocyte Esterase Urine WBC (Auto) Urine RBC (Auto) Ur Squamous Epith Cells Urine Bacteria Hyaline Casts Granular Casts (Auto) Broad Casts Urine HCG, Qual Urine Opiates Screen Urine Methadone Screen Ur Barbiturates Screen Ur Phencyclidine Scrn Ur Amphetamines Screen U Benzodiazepines Scrn U Oth Cocaine Metabols U Cannabinoids Screen B-Hydroxybutyrate Assessment & Plan - Assessment and Plan (Free Text) Assessment: 27F with history of uncontrolled diabetes, seizures, pseudoseizures presents with nausea and vomiting with last meal in AM of 6/4 (grilled cheese sandwich) Nausea and vomiting secondary to gastroparesis monitor electrolytes f/u lipase 1L bolus given in ED 09/21 NS @ 100cc/hr Zofran 4mg IVP q6H PRN nausea Reglan 10mg IVP Q8H PRN nausea Uncontrolled diabetes mellitus Accuchecks f/u A1c: Hypoglycemia protocol Insulin 5 u QID (Patient states she normally takes about 5 units per accucheck per her insulin pump) Lantus 15 units HS (home medication) - restarted Continue to monitor elevated BUN/Cr, likely due to hypovolemic status continue fluid resuscitation, monitor BUN/Cr Patient continues to make urine appropriately strict I and Os consider Renal Consult if worsening kidney function history of HTN hydroxyzine 25mg daily losartan 25mg po daily history of seizures and [seudoseizures will monitor vitals Prophylaxis vitamin B12 1000mg daily vitamin D 16071 units weekly feosol 325mg BID SCDs Pepcid, may switch to protonix if patient does not tolerate discussed with Dr. Christine Nunez, PGY1 - Date & Time Date: 09/22/17 Time: 03:20
[2017-09-22 08:51] VITALS: RESP 20
[2017-09-22] MEDS ORDERED: INSULIN LISPRO 10 UNIT SC SCH (09:00)
[2017-09-22] MEDS: NIFEdipine 30 mg ER Tab PO SCH (09:38)
[2017-09-22] MEDS ORDERED: (Novolog) Insulin Aspart, Recombinant 100 u/ml 10 ml vial SC SCH (10:00)
[2017-09-22] MEDS: (Novolin R) Insulin Human Regular 100 units/ml vial SC SCH ×3 (11:27→21:43)
--- NOTE | 2017-09-22 12:33 | CARD ---
APPROVED REPORT EKG Measurement Heart [id number] [id number] <Conclusion> Normal sinus rhythm Normal ECG
[2017-09-22] MEDS ORDERED: (Lantus) Insulin Glargine, Recombinant SC SCH (22:00)
--- NOTE | 2017-09-22 23:29 | CP.PCM.CON ---
History of Present Illness - History of Present Illness History of Present Illness: 27 yo F w/ pmh of DM, HTN, gastroparesis, seizure disorder (to include pseudo- seizure), and CKD IIIB w/ nephrotic syndrome from diabetic nephropathy, presented to the ED with complaints of vomiting, nausea, and recurrence of gastroparesis flare; nephrology being consulted for GABRIELA; Patient reports 2 days of nausea/vomiting in the setting of uncontrolled blood sugars lately; patient denies sick contacts; also was having mid-epigastric sharp pain and tightness in chest and back on presentation that have since resolved; she reports her last such episode of gastroparesis induced nausea/ vomiting was several months ago; she takes reglan as needed but not prophylactically; blood sugars have been improved since being on insulin pump since past few weeks but sugars increased more recently; Currently, patient reports tolerating diet; urinating frequently while on IVF; denies any dysuria; PMHx: HTN, DM, gastroparesis, seizure disorder (and pseudo-seizures) SurgHx: denies FamHx: Grandmother has DM SocHx: denies tobacco, alcohol, and drug use Allergies: NKDA PMD: Dr. King Review of Systems - Constitutional Constitutional: absent: Chills, Fever - EENT Eyes: Blurred Vision Nose/Mouth/Throat: absent: Nasal Discharge - Cardiovascular Cardiovascular: As Per HPI. absent: Dyspnea on Exertion Additional comments: intermittent leg swelling - Respiratory Respiratory: absent: Cough, Dyspnea - Gastrointestinal Gastrointestinal: As Per HPI - Genitourinary Genitourinary: absent: Dysuria - Musculoskeletal Musculoskeletal: As Per HPI Additional comments: doesn't use pain meds other than tylenol; - Integumentary Integumentary: absent: Skin Ulcer - Neurological Neurological: absent: Numbness Past Patient History - Infectious Disease Hx of Infectious Diseases: None - Past Medical History & Family History Past Medical History?: Yes - Past Social History Smoking Status: Never Smoked - CARDIAC Hx Hypertension: Yes - PULMONARY Hx Respiratory Disorders: No - NEUROLOGICAL Hx Seizures: Yes - HEENT Hx HEENT Problems: Yes Other/Comment: blurred vision both eyes uses eyeglasses - RENAL Hx Chronic Kidney Disease: No - ENDOCRINE/METABOLIC Hx Endocrine Disorders: Yes Hx Diabetes Mellitus Type 2: Yes - HEMATOLOGICAL/ONCOLOGICAL Hx Anemia: Yes - INTEGUMENTARY Hx Dermatological Problems: No - MUSCULOSKELETAL/RHEUMATOLOGICAL Hx Falls: Yes - GASTROINTESTINAL Hx Gastrointestinal Disorders: Yes (SEE COMMENT) Other/Comment: gastroparesis - GENITOURINARY/GYNECOLOGICAL Hx Genitourinary Disorders: No - PSYCHIATRIC Hx Anxiety: Yes Hx Depression: Yes Hx Substance Use: No - SURGICAL HISTORY Hx Surgeries: No - ANESTHESIA Hx Anesthesia: No Hx Anesthesia Reactions: No Hx Malignant Hyperthermia: No Meds Allergies/Adverse Reactions: Allergies Allergy/AdvReac Type Severity Reaction Status Date / Time No Known Allergies Allergy Verified 09/21/17 23:11 - Medications Medications: Current Medications Acetaminophen (Tylenol 325mg Tab) 650 mg PO Q6 PRN PRN Reason: Fever >100.4 F Cyanocobalamin (Vitamin B12 1000 Mcg Tab) 1,000 mcg PO DAILY [facility] Last Admin: 09/22/17 10:43 Dose: 1,000 mcg Dextrose (Dextrose 50% Inj) 0 ml IV STAT PRN; Protocol PRN Reason: Hypoglycemia Protocol Dextrose (Glutose 15) 0 gm PO ONCE PRN; Protocol PRN Reason: Hypoglycemia Protocol Ferrous Sulfate (Feosol) 325 mg PO DAILY [facility] Last Admin: 09/22/17 09:36 Dose: 325 mg Folic Acid (Folic Acid) 1 mg PO DAILY [facility] Last Admin: 09/22/17 09:36 Dose: 1 mg Glucagon (Glucagen Diagnostic Kit) 0 mg IM STAT PRN; Protocol PRN Reason: Hypoglycemia Protocol Heparin Sodium (Porcine) (Heparin) 5,000 units SC Q8 [facility] Last Admin: 09/22/17 21:47 Dose: 5,000 units Hydroxyzine HCl (Atarax) 25 mg PO DAILY [facility] Last Admin: 09/22/17 09:37 Dose: 25 mg Sodium Chloride (Sodium Chloride 0.9%) 1,000 mls @ 100 mls/hr IV .Q10H [facility] Last Admin: 09/22/17 19:51 Dose: 100 mls/hr Dextrose (Dextrose 5% In Water 1000 Ml) 1,000 mls @ 0 mls/hr IV .Q0M PRN; Protocol; Per Protocol PRN Reason: Hypoglycemia Protocol Insulin Aspart (Novolog) 5 unit SC QID [facility] Insulin Glargine (Lantus) 15 unit SC HS [facility] Last Admin: 09/22/17 21:44 Dose: 15 units Insulin Human Regular (Novolin R) 0 unit SC ACHS [facility] PRN Reason: Protocol Last Admin: 09/22/17 21:43 Dose: 2 unit Losartan Potassium (Cozaar) 25 mg PO DAILY [facility] Last Admin: 09/22/17 09:36 Dose: 25 mg Metoclopramide HCl (Reglan) 10 mg PO TID PRN PRN Reason: nausea & vomiting Nifedipine (Procardia Xl) 30 mg PO DAILY [facility] Last Admin: 09/22/17 09:38 Dose: 30 mg Ondansetron HCl (Zofran Inj) 4 mg IVP Q6H PRN PRN Reason: Nausea/Vomiting Physical Exam - Constitutional Appears: Non-toxic, No Acute Distress - Eye Exam Eye Exam: Normal appearance. absent: Scleral icterus - ENT Exam ENT Exam: Mucous Membranes Moist - Respiratory Exam Respiratory Exam: Clear to Auscultation Bilateral. absent: Respiratory Distress - Cardiovascular Exam Cardiovascular Exam: RRR, +S1, +S2 - GI/Abdominal Exam GI & Abdominal Exam: Soft. absent: Distended, Tenderness - Exam Exam: absent: Bladder Distension - Extremities Exam Additional comments: minimal lower leg edema; - Neurological Exam Neurological exam: Alert, Oriented x3 Additional comments: no numbness in feet - Psychiatric Exam Psychiatric exam: Normal Affect, Normal Mood - Skin Skin Exam: Normal Color, Warm Additional comments: no foot ulcers Results - Vital Signs Recent Vital Signs: Last Vital Signs Temp 98.5 F 09/22/17 16:00 Pulse 76 09/22/17 16:00 Resp 20 09/22/17 16:00 BP 147/88 09/22/17 16:00 Pulse Ox 96 09/22/17 16:00 - Labs Result Diagrams: 09/21/17 23:22 09/21/17 23:22 Labs: Laboratory Results - last 24 hr 09/21/17 09/21/17 09/21/17 22:52 23:22 23:22 PT 10.4 INR 1.0 APTT 33 Sodium 140 Potassium 4.3 Chloride 108 H Carbon Dioxide 18 L Anion Gap 18 BUN 36 H Creatinine 3.3 H Est GFR ( Amer) 20 Est GFR (Non-Af Amer) 17 POC Glucose (mg/dL) 80 Random Glucose 67 Hemoglobin A1c Calcium 8.9 Phosphorus Magnesium Total Bilirubin 0.3 AST 28 ALT 26 Alkaline Phosphatase 148 H D Total Protein 6.5 Albumin 3.0 L D Globulin 3.5 Albumin/Globulin Ratio 0.9 L Lipase Urine Color Urine Clarity Urine pH Ur Specific [place] Urine Protein Urine Glucose (UA) Urine Ketones Urine Blood Urine Nitrate Urine Bilirubin Urine Urobilinogen Ur Leukocyte Esterase Urine WBC (Auto) Urine RBC (Auto) Ur Squamous Epith Cells Urine Bacteria Hyaline Casts Granular Casts (Auto) Broad Casts Urine HCG, Qual Urine Opiates Screen Urine Methadone Screen Ur Barbiturates Screen Ur Phencyclidine Scrn Ur Amphetamines Screen U Benzodiazepines Scrn U Oth Cocaine Metabols U Cannabinoids Screen B-Hydroxybutyrate 09/21/17 09/22/17 09/22/17 23:27 00:17 00:17 PT INR APTT Sodium Potassium Chloride Carbon Dioxide Anion Gap BUN Creatinine Est GFR ( Amer) Est GFR (Non-Af Amer) POC Glucose (mg/dL) Random Glucose Hemoglobin A1c Calcium Phosphorus Magnesium Total Bilirubin AST ALT Alkaline Phosphatase Total Protein Albumin Globulin Albumin/Globulin Ratio Lipase Urine Color Yellow Urine Clarity Hazy Urine pH 6.0 Ur Specific [place] 1.019 Urine Protein 3+ H Urine Glucose (UA) 1+ Urine Ketones Negative Urine Blood Negative Urine Nitrate Negative Urine Bilirubin Negative Urine Urobilinogen Normal Ur Leukocyte Esterase Neg Urine WBC (Auto) 3 Urine RBC (Auto) 2 Ur Squamous Epith Cells 1 Urine Bacteria Occ H Hyaline Casts 0-2 Granular Casts (Auto) 1 Broad Casts 3 Urine HCG, Qual Negative Urine Opiates Screen Negative Urine Methadone Screen Negative Ur Barbiturates Screen Negative Ur Phencyclidine Scrn Negative Ur Amphetamines Screen Negative U Benzodiazepines Scrn Negative U Oth Cocaine Metabols Negative U Cannabinoids Screen Positive H B-Hydroxybutyrate 0.23 09/22/17 09/22/17 09/22/17 00:27 00:29 01:09 PT INR APTT Sodium Potassium Chloride Carbon Dioxide Anion Gap BUN Creatinine Est GFR ( Amer) Est GFR (Non-Af Amer) POC Glucose (mg/dL) 54 L 53 L 202 H Random Glucose Hemoglobin A1c Calcium Phosphorus Magnesium Total Bilirubin AST ALT Alkaline Phosphatase Total Protein Albumin Globulin Albumin/Globulin Ratio Lipase Urine Color Urine Clarity Urine pH Ur Specific [place] Urine Protein Urine Glucose (UA) Urine Ketones Urine Blood Urine Nitrate Urine Bilirubin Urine Urobilinogen Ur Leukocyte Esterase Urine WBC (Auto) Urine RBC (Auto) Ur Squamous Epith Cells Urine Bacteria Hyaline Casts Granular Casts (Auto) Broad Casts Urine HCG, Qual Urine Opiates Screen Urine Methadone Screen Ur Barbiturates Screen Ur Phencyclidine Scrn Ur Amphetamines Screen U Benzodiazepines Scrn U Oth Cocaine Metabols U Cannabinoids Screen B-Hydroxybutyrate 09/22/17 09/22/17 09/22/17 03:09 06:01 06:29 PT INR APTT Sodium Potassium Chloride Carbon Dioxide Anion Gap BUN Creatinine Est GFR ( Amer) Est GFR (Non-Af Amer) POC Glucose (mg/dL) 207 H Random Glucose Hemoglobin A1c Calcium Phosphorus 4.4 Magnesium 2.3 Total Bilirubin AST ALT Alkaline Phosphatase Total Protein Albumin Globulin Albumin/Globulin Ratio Lipase 39 65 Urine Color Urine Clarity Urine pH Ur Specific [place] Urine Protein Urine Glucose (UA) Urine Ketones Urine Blood Urine Nitrate Urine Bilirubin Urine Urobilinogen Ur Leukocyte Esterase Urine WBC (Auto) Urine RBC (Auto) Ur Squamous Epith Cells Urine Bacteria Hyaline Casts Granular Casts (Auto) Broad Casts Urine HCG, Qual Urine Opiates Screen Urine Methadone Screen Ur Barbiturates Screen Ur Phencyclidine Scrn Ur Amphetamines Screen U Benzodiazepines Scrn U Oth Cocaine Metabols U Cannabinoids Screen B-Hydroxybutyrate 09/22/17 09/22/17 09/22/17 06:29 07:00 10:48 PT INR APTT Sodium Potassium Chloride Carbon Dioxide Anion Gap BUN Creatinine Est GFR ( Amer) Est GFR (Non-Af Amer) POC Glucose (mg/dL) 217 H 221 H Random Glucose Hemoglobin A1c 8.3 H Calcium Phosphorus Magnesium Total Bilirubin AST ALT Alkaline Phosphatase Total Protein Albumin Globulin Albumin/Globulin Ratio Lipase Urine Color Urine Clarity Urine pH Ur Specific [place] Urine Protein Urine Glucose (UA) Urine Ketones Urine Blood Urine Nitrate Urine Bilirubin Urine Urobilinogen Ur Leukocyte Esterase Urine WBC (Auto) Urine RBC (Auto) Ur Squamous Epith Cells Urine Bacteria Hyaline Casts Granular Casts (Auto) Broad Casts Urine HCG, Qual Urine Opiates Screen Urine Methadone Screen Ur Barbiturates Screen Ur Phencyclidine Scrn Ur Amphetamines Screen U Benzodiazepines Scrn U Oth Cocaine Metabols U Cannabinoids Screen B-Hydroxybutyrate 09/22/17 09/22/17 16:29 21:37 PT INR APTT Sodium Potassium Chloride Carbon Dioxide Anion Gap BUN Creatinine Est GFR ( Amer) Est GFR (Non-Af Amer) POC Glucose (mg/dL) 247 H 332 H Random Glucose Hemoglobin A1c Calcium Phosphorus Magnesium Total Bilirubin AST ALT Alkaline Phosphatase Total Protein Albumin Globulin Albumin/Globulin Ratio Lipase Urine Color Urine Clarity Urine pH Ur Specific [place] Urine Protein Urine Glucose (UA) Urine Ketones Urine Blood Urine Nitrate Urine Bilirubin Urine Urobilinogen Ur Leukocyte Esterase Urine WBC (Auto) Urine RBC (Auto) Ur Squamous Epith Cells Urine Bacteria Hyaline Casts Granular Casts (Auto) Broad Casts Urine HCG, Qual Urine Opiates Screen Urine Methadone Screen Ur Barbiturates Screen Ur Phencyclidine Scrn Ur Amphetamines Screen U Benzodiazepines Scrn U Oth Cocaine Metabols U Cannabinoids Screen B-Hydroxybutyrate Assessment & Plan (1) Acute kidney injury Assessment and Plan: GABRIELA on CKD IIIB; history consistent with pre-renal etiology in the setting of GI losses; labs also showing hemoconcentration with H/H and serum albumin significantly higher than usual; currently with GI symptoms resolved and with good urine output on IVF; -continuing with NS at 100 cc/hr overnight; -avoid NSAIDS (will block renal autoregulation when volume depleted and compound GABRIELA), should hold losartan until renal function improved; Status: Acute (2) CKD (chronic kidney disease) stage 3, GFR 30-59 ml/min Assessment and Plan: CKD IIIB, secondary to biopsy proven diabetic nephropathy; progressively worsening disease in the setting of massive proteinuria; 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 with patient about 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 and goals; once eGFR < 20 ml/min consistently (likely within the next 1 year), we will refer her for transplant (ideally kidney/ pancrease) which would offer her the best termite renewal inspector outcome; -avoid nephrotoxic meds; -see below regarding ARB/HERLINDA inhibitor; Status: Chronic (3) Nephrotic syndrome Assessment and Plan: Massive proteinuria (11 g on previous measurement) with marked hypoalbuminemia; patient started on low dose ARB, need to gradually increase to max dose as tolerated (will do so as outpatient); explained to patient that she will have sodium retention due to this condition and hence is prone to having leg swelling (also had moderate amount of ascites on previous imaging); 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 but once she is stabilized; Status: Chronic (4) Hypertensive CKD (chronic kidney disease) Assessment and Plan: BP elevated with patient on IVF; currently on nifedipine XL 30 mg daily and losartan 25 mg daily, continue same for now; Status: Acute (5) Chronic kidney disease-mineral and bone disorder Assessment and Plan: Will check for secondary hyperparathyroidism of CKD; -checking PTH and 25-OH vit D levels; Status: Acute (6) Anemia Assessment and Plan: Hemoconcentrated as mentioned above; otherwise, hgb usually runs in mid-9's; -checking iron studies; Status: Chronic - Assessment and Plan (Free Text) Assessment: Thank you for this referral, we will continue to follow closely.
[2017-09-23 07:37] VITALS: BP 157/98; PULSE 78; TEMP 97.7; O2SAT 98
[2017-09-23] MEDS: (Novolin R) Insulin Human Regular 100 units/ml vial SC SCH ×2 (07:54→11:52)
[2017-09-23] MEDS: Sodium Chloride 0.9% 1,000 ML IV SCH (08:53)
--- NOTE | 2017-09-23 09:19 | CP.PCM.DIS ---
Provider - Provider Date of Admission: 09/22/17 02:32 Attending physician: Reza King Jr, MD Consults: Nephro - Mughni Time Spent in preparation of Discharge (in minutes): 20 Diagnosis - Discharge Diagnosis (1) Diabetic gastroparesis Status: Chronic Hospital Course - Lab Results Lab Results: Most Recent Lab Values WBC 9.0 K/uL (4.8-10.8) 09/21/17 23:22 RBC 4.14 Mil/uL (3.80-5.20) 09/21/17 23:22 Hgb 12.0 g/dL (11.0-16.0) D 09/21/17 23:22 Hct 35.9 % (34.0-47.0) 09/21/17 23:22 MCV 86.7 fL (81.0-99.0) D 09/21/17 23:22 MCH 29.0 pg (27.0-31.0) 09/21/17 23: MCHC 33.4 g/dL (33.0-37.0) 09/21/17 23:22 RDW 14.1 % (11.5-14.5) 09/21/17 23:22 Plt Count 318 K/uL (130-400) D 09/21/17 23:22 MPV 10.4 fL (7.2-11.7) 09/21/17 23:22 Neut % (Auto) 61.3 % (50.0-75.0) 09/21/17 23:22 Lymph % (Auto) 30.1 % (20.0-40.0) 09/21/17 23:22 [place] % (Auto) 6.7 % (0.0-10.0) 09/21/17 23:22 Eos % (Auto) 1.1 % (0.0-4.0) 09/21/17 23:22 Baso % (Auto) 0.8 % (0.0-2.0) 09/21/17 23:22 Neut # (Auto) 5.5 K/uL (1.8-7.0) 09/21/17 23:22 Lymph # (Auto) 2.7 K/uL (1.0-4.3) 09/21/17 23:22 [place] # (Auto) 0.6 K/uL (0.0-0.8) 09/21/17 23:22 Eos # (Auto) 0.1 K/uL (0.0-0.7) 09/21/17 23:22 Baso # (Auto) 0.1 K/uL (0.0-0.2) 09/21/17 23:22 PT 10.4 SECONDS (9.7-12.2) 09/21/17 23:22 INR 1.0 09/21/17 23:22 APTT 33 SECONDS (21-34) 09/21/17 23:22 Sodium 140 mmol/L (132-148) 09/21/17 23:22 Potassium 4.3 mmol/L (3.6-5.2) 09/21/17 23:22 Chloride 108 mmol/L (98-107) H 09/21/17 23:22 Carbon Dioxide 18 mmol/L (22-30) L 09/21/17 23:22 Anion Gap 18 (10-20) 09/21/17 23:22 BUN 36 mg/dL (7-17) H 09/21/17 23:22 Creatinine 3.3 mg/dL (0.7-1.2) H 09/21/17 23:22 Est GFR ( Amer) 20 09/21/17 23:22 Est GFR (Non-Af Amer) 17 09/21/17 23:22 POC Glucose (mg/dL) 174 mg/dL (65-110) H 09/23/17 08:18 Random Glucose 67 mg/dL (65-105) 09/21/17 23:22 Hemoglobin A1c 8.3 % (4.2-6.5) H 09/22/17 06:29 Calcium 8.9 mg/dl (8.6-10.4) 09/21/17 23:22 Phosphorus 4.4 mg/dL (2.5-4.5) 09/22/17 06:29 Magnesium 2.3 mg/dL (1.6-2.3) 09/22/17 06:29 Total Bilirubin 0.3 mg/dL (0.2-1.3) 09/21/17 23:22 AST 28 U/L (14-36) 09/21/17 23:22 ALT 26 U/L (9-52) 06/04/18 23:22 Alkaline Phosphatase 148 U/L (38-126) H D 09/21/17 23:22 Total Protein 6.5 g/dL (6.3-8.3) 09/21/17 23:22 Albumin 3.0 g/dL (3.5-5.0) L D 09/21/17 23:22 Globulin 3.5 gm/dL (2.2-3.9) 09/21/17 23:22 Albumin/Globulin Ratio 0.9 (1.0-2.1) L 09/21/17 23:22 Lipase 65 U/L (23-300) 09/22/17 06:29 Urine Color Yellow (YELLOW) 09/22/17 00:17 Urine Clarity Hazy (Clear) 09/22/17 00:17 Urine pH 6.0 (5.0-8.0) 09/22/17 00:17 Ur Specific [place] 1.019 (1.003-1.030) 09/22/17 00:17 Urine Protein 3+ mg/dL (NEGATIVE) H 09/22/17 00:17 Urine Glucose (UA) 1+ mg/dL (Normal) 09/22/17 00:17 Urine Ketones Negative mg/dL (NEGATIVE) 09/22/17 00:17 Urine Blood Negative (NEGATIVE) 09/22/17 00:17 Urine Nitrate Negative (NEGATIVE) 09/22/17 00:17 Urine Bilirubin Negative (NEGATIVE) 09/22/17 00:17 Urine Urobilinogen Normal mg/dL (0.2-1.0) 09/22/17 00:17 Ur Leukocyte Esterase Neg Kathy/uL (Negative) 09/22/17 00:17 Urine WBC (Auto) 3 /hpf (0-5) 09/22/17 00:17 Urine RBC (Auto) 2 /hpf (0-3) 09/22/17 00:17 Ur Squamous Epith Cells 1 /hpf (0-5) 09/22/17 00:17 Urine Bacteria Occ (<OCC) H 09/22/17 00:17 Hyaline Casts 0-2 /lpf (0-2) 09/22/17 00:17 Granular Casts (Auto) 1 /lpf (0-1) 09/22/17 00:17 Broad Casts 3 /lpf (0-1) 06/05/18 00:17 Urine HCG, Qual Negative (NEGATIVE) 09/22/17 00:17 Urine Opiates Screen Negative (NEGATIVE) 09/22/17 00:17 Urine Methadone Screen Negative (NEGATIVE) 09/22/17 00:17 Ur Barbiturates Screen Negative (NEGATIVE) 09/22/17 00:17 Ur Phencyclidine Scrn Negative (NEGATIVE) 09/22/17 00:17 Ur Amphetamines Screen Negative (NEGATIVE) 09/22/17 00:17 U Benzodiazepines Scrn Negative (NEGATIVE) 09/22/17 00:17 U Oth Cocaine Metabols Negative (NEGATIVE) 09/22/17 00:17 U Cannabinoids Screen Positive (NEGATIVE) H 09/22/17 00:17 B-Hydroxybutyrate 0.23 mM (0.02-0.27) 09/21/17 23:27 - Hospital Course Hospital Course: As per admission documentation Patient is a 27 year old female with a past medical history of DM, HTN, gastroparesis, and seizure disorder (to include pseudo-seizure), who presents to the ED with complaints of vomiting, nausea, and gastroparesis. Patient presents with 2 days of nausea, vomiting. Patient denies sick contacts. Patient states she feels mid-epigastric sharp pain and tightness in chest and back. Patient states she has had this problem for a few months. Upon review of previous records, patient has been here multiple times for similar chief complaints. Patient states that she feels about the same as last time. Patient admits to one episode of diarrhea and states her bowel movements are about 2-3 times per week now that she has an insulin pump. Hospital Course Patient was admitted to the hospital for diabetic gastroparesis over night/ early in the morning on 09/22. Patient was found to have acute on chronic renal failure with an elevated Cr of 3.3 with a baseline of 2.2 in 06/23/2017. Patient was treated with intravenous fluids, anti-emetics and made NPO. Patient's diet was advanced slowly starting with clear liquids. Patient's abdominal pain and nausea improved and was resolved by mid-afternoon on 09/22. Patient refused blood on 09/23, was tolerating a regular diet stating that she wanted to go home. All of her symptoms had remained resolved and patient was discharged home with the following instructions. Discharge Instructions Patient is to be discharged home per Dr. King Patient is to follow up with Dr. King in his office to have the sensor placed for her insulin pump. Please call and schedule an appointment. Patient is to follow up with Dr. Nieves (Nephrology) in his office within two weeks of discharge. Please call and schedule an appointment. Patient is to continue taking her medications as previously prescribed. No new medications given. If patient experiences any new or worsening symptoms, please go directly to the nearest emergency department. Take care and be well. This is just a brief summary of the patient's hospital course. For full detail please see EMR. Discharge Exam - Head Exam Head Exam: ATRAUMATIC, NORMAL INSPECTION, NORMOCEPHALIC - Eye Exam Eye Exam: Normal appearance - ENT Exam ENT Exam: Mucous Membranes Moist - Neck Exam Neck exam: Normal Inspection - Respiratory Exam Respiratory Exam: Clear to PA & Lateral, NORMAL BREATHING PATTERN, UNREMARKABLE. absent: Accessory Muscle Use, Chest Wall Tenderness, Rales, Rhonchi, Wheezes, Respiratory Distress - Cardiovascular Exam Cardiovascular Exam: REGULAR RHYTHM, +S1, +S2 - GI/Abdominal Exam GI & Abdominal Exam: Normal Bowel Sounds, Soft. absent: Distended, Firm, Guarding, Rigid, Tenderness - Extremities Exam Extremities exam: normal inspection, pedal pulses present - Neurological Exam Neurological exam: Alert, CN II-XII Intact, Oriented x3 - Psychiatric Exam Psychiatric exam: Normal Affect, Normal Mood - Skin Skin Exam: Dry, Warm Discharge Plan - Follow Up Plan Condition: FAIR Disposition: HOME/ ROUTINE Instructions: Dehydration, Adult (DC), Kidney Failure (DC), Diabetes Type 1, Adult (DC), Diabetes Type 2 (DC), Gastroparesis (Delayed Gastric Emptying) (DC) Additional Instructions: Patient is to be discharged home per Dr. King Patient is to follow up with Dr. King in his office to have the sensor placed for her insulin pump. Please call and schedule an appointment. Patient is to follow up with Dr. Nieves (Nephrology) in his office within two weeks of discharge. Please call and schedule an appointment. Patient is to continue taking her medications as previously prescribed. No new medications given. If patient experiences any new or worsening symptoms, please go directly to the nearest emergency department. Take care and be well. Referrals: Reza King Jr., MD [Medical Doctor] - Migue Nieves MD [Staff Provider] -
[2017-09-23] MEDS: NIFEdipine 30 mg ER Tab PO SCH (09:23)
== END 2017-09-23 13:15 | disposition home or self-care (01) | DRG 533 ==
LOC: C.ER 22:50 → C.3T 09-22 02:32
PROVIDERS: ADMIT Internal Medicine; ATTEND Internal Medicine
DX: E11.43 Type 2 diabetes mellitus with diabetic autonomic (poly)neuropathy (principal); N17.9 Acute kidney failure, unspecified; E11.21 Type 2 diabetes mellitus with diabetic nephropathy; N18.3 Chronic kidney disease, stage 3 (moderate); Z96.41 Presence of insulin pump (external) (internal); E11.22 Type 2 diabetes mellitus with diabetic chronic kidney disease; D64.9 Anemia, unspecified; E11.65 Type 2 diabetes mellitus with hyperglycemia; I12.9 Hypertensive chronic kidney disease with stage 1 through stage 4 chronic kidney disease, or unspecified chronic kidney disease; K31.84 Gastroparesis; G40.802 Other epilepsy, not intractable, without status epilepticus; Z79.4 Long term (current) use of insulin

== ENCOUNTER 2017-11-23 20:11 | Inpatient (IN) | payer MEDICAID ==
[2017-11-23 20:12] VITALS: BMI 25.6
[2017-11-23 20:38] LABS: BASO # 0.1 K/uL (0.0-0.2); BASO % 1.3 % (0.0-2.0); EOS # 0.1 K/uL (0.0-0.7); EOS % 1.9 % (0.0-4.0); LYMPH % 39.2 % (20.0-40.0); MEAN CELL VOLUME 86.4 fL (81.0-99.0); MEAN CORPUSCULAR HEMOGLOBIN 28.3 pg (27.0-31.0); MEAN CORPUSCULAR HGB CONC 32.7 g/dL (33.0-37.0); MONO # 0.5 K/uL (0.0-0.8); MONO % 6.4 % (0.0-10.0); NEUT # 3.9 K/uL (1.8-7.0); NEUT % 51.2 % (50.0-75.0); NRBC % 0.1 % (0.0-2.0); RBC 4.98 Mil/uL (3.80-5.20); RED CELL DISTRIBUTION WIDTH 14.4 % (11.5-14.5); WHITE BLOOD COUNT 7.7 K/uL (4.8-10.8)
[2017-11-23 20:43] LABS: HEMOGLOBIN 14.1 g/dL (11.0-16.0)
[2017-11-23 20:52] LABS: CALCIUM 9.3 mg/dl (8.6-10.4)
[2017-11-23] MEDS ORDERED: Sodium Chloride 0.9% 2,000 ML IV ONE (20:58)
[2017-11-23 20:59] LABS: ALBUMIN 4.1 g/dL (3.5-5.0)
[2017-11-23] MEDS ORDERED: Sodium Chloride 0.9% 2,000 ML ONE (21:07)
--- NOTE | 2017-11-23 21:12 | C.PDOC ---
History Of Present Illness 27 y/o female presents to the ED complaining of epigastric pain, nausea, and vomiting for 2-3 weeks. Patient has a history of IDDM, on insulin pump. PMHx is also significant for gastroparesis, and seizure disorder including pseudoseizures. Otherwise patient denies any fever, chills, or other associated symptoms. Time Seen by Provider: 11/23/17 20:58 Chief Complaint (Nursing): Abdominal Pain History Per: Patient History/Exam Limitations: no limitations Onset/Duration Of Symptoms: Days Current Symptoms Are (Timing): Worse Context: Other Severity: Severe Pain Scale Rating Of: 7 Location Of Pain/Discomfort: Epigastric Radiation Of Pain To:: None Quality Of Discomfort: Aching, Cramping, Stabbing Associated Symptoms: Nausea, Vomiting Exacerbating Factors: Food Alleviating Factors: None Last Bowel Movement: Today Recent travel outside of the [place]: No Additional History Per: Family, Prior Records Abnormal Vaginal Bleeding: No Past Medical History Reviewed: Historical Data, Nursing Documentation, Vital Signs Vital Signs: Last Vital Signs Temp 98.9 F 11/23/17 20:18 Pulse 95 H 11/23/17 21:55 Resp 18 11/23/17 21:55 BP 207/132 H 11/23/17 21:55 Pulse Ox 99 11/23/17 21:55 - Medical History PMH: Anemia, Anxiety, Depression, Diabetes, HTN, Seizures Denies: Chronic Kidney Disease Other PMH: Gastroparesis Surgical History: Endoscopy - [facility] Procedures EXCISION OF STOMACH, ENDO, DIAGN (11/02/16) EXCISION OF STOMACH, PYLORUS, ENDO, DIAGN (03/10/17) GROUP PSYCHOTHERAPY (06/09/17) INDIVIDUAL PSYCHOTHERAPY, SUPPORTIVE (06/09/17) INSERTION OF INFUSION DEV INTO L SUBCLAV VEIN, PERC APPROACH (10/28/16) INSERTION OF INFUSION DEV INTO SUP VENA CAVA, PERC APPROACH (11/02/16) INTRODUCTION OF NUTRITIONAL INTO PERIPH VEIN, PERC APPROACH (10/16/16) MEDICATION MANAGEMENT (06/09/17) ULTRASONOGRAPHY OF SUPERIOR VENA CAVA, GUIDANCE (10/16/16) Family History: States: Unknown Family Hx - Social History Hx Alcohol Use: No Hx Substance Use: No - Immunization History Hx Tetanus Toxoid Vaccination: No Hx Influenza Vaccination: Yes Hx Pneumococcal Vaccination: Yes Review Of Systems Constitutional: Negative for: Fever, Chills Eyes: Negative for: Redness ENT: Negative for: Throat Pain Cardiovascular: Negative for: Chest Pain Respiratory: Negative for: Shortness of Breath Gastrointestinal: Positive for: Nausea, Vomiting, Abdominal Pain Genitourinary: Negative for: Dysuria, Frequency, Incontinence, Vaginal Discharge , Vaginal Bleeding Musculoskeletal: Negative for: Back Pain Skin: Negative for: Rash Neurological: Negative for: Weakness, Numbness, Dizziness Psych: Positive for: Anxiety Physical Exam - Physical Exam Appears: In Acute Distress (in severe distress, 09/27), Other (Actively vomiting in the ED) Skin: Warm, Dry Head: Normacephalic Eye(s): bilateral: Normal Inspection Oral Mucosa: Moist Neck: Trachea Midline, Supple Chest: Symmetrical Cardiovascular: Rhythm Regular Respiratory: No Rales, No Rhonchi, No Wheezing Gastrointestinal/Abdominal: Bowel Sounds (tympanic), Soft, Tenderness (mid- epigastric tenderness), No Distention, No Guarding, No Rebound Back: Normal Inspection Extremity: Normal ROM Extremity: Bilateral: Atraumatic, Normal Color And Temperature, Normal ROM Pulses: Left Dorsalis Pedis: Normal, Right Dorsalis Pedis: Normal Neurological/Psych: Oriented x3, Normal Speech Gait: Steady ED Course And Treatment - Laboratory Results Result Diagrams: 11/23/17 20:31 11/23/17 20:31 O2 Sat by Pulse Oximetry: 97 (RA) Pulse Ox Interpretation: Normal Progress Note: Routine blood work and urine sent for analysis. VBG ordered. Patient given IV fluids, 8 mg Zofran, 40 mg Protonix, and 1 mg Ativan. Administered 30 mg IV Toradol for pain control. Disposition Discussed With DrTabby: Reza King Jr. Comment: accepted the pt on his service and took over the care at 10:36PM Doctor Will See Patient In The: ED Counseled Patient/Family Regarding: Studies Performed, Diagnosis - Disposition Disposition: HOSPITALIZED Disposition Time: 21:12 Condition: GUARDED Forms: [facility] (Kiswahili) - POA Present On Arrival: Poor Glycemic Control - Clinical Impression Clinical Impression: Gastroparesis, Diabetes mellitus, HTN (hypertension), Abdominal pain with vomiting, ARF (acute renal failure), Diabetic gastroparesis - Scribe Statement The provider has reviewed the documentation as recorded by the Jw Mario Provider Attestation: All medical record entries made by the Scribe were at my direction and personally dictated by me. I have reviewed the chart and agree that the record accurately reflects my personal performance of the history, physical exam, medical decision making, and the department course for this patient. I have also personally directed, reviewed, and agree with the discharge instructions and disposition. Decision To Admit - Pt Status Changed To: Hospital Disposition Of: Inpatient - Admit Certification Admit to Inpatient:: After my assessment, the patient will require hospitalization for at least two midnights. This is because of the severity of symptoms shown, intensity of services needed, and/or the medical risk in this patient being treated as an outpatient. - InPatient: Physician Admission Certification:: After my assessment, the patient will require hospitalization for at least two midnights. This is because of the severity of symptoms shown, intensity of services needed, and/or the medical risk in this patient being treated as an outpatient. - . Bed Request Type: Regular Admitting Physician: Reza Knig Jr. Patient Diagnosis: Gastroparesis, Diabetes mellitus, HTN (hypertension), Abdominal pain with vomiting, ARF (acute renal failure), Diabetic gastroparesis
[2017-11-23 21:45] LABS: VENOUS BLOOD GAS BASE EXCESS -0.3 mmol/L (0.0-2.0); VENOUS BLOOD GAS PCO2 32 mmHg (40-60); VENOUS BLOOD GAS PO2 65 mm/Hg (30-55); VENOUS BLOOD PH 7.46 (7.32-7.43)
[2017-11-23] MEDS ORDERED: Ammonia 2% Inhalant ONE (22:50)
--- NOTE | 2017-11-24 01:23 | CP.PCM.HP ---
History of Present Illness - History of Present Illness History of Present Illness: CC: Intractable Vomiting and Gastroparesis HPI: Patient is a 27 year old female DM, HTN, gastroparesis, seizure disorder ( to include pseudo-seizure), anxiety and depression, who presents to the ED with her mother with complaint of intractable vomiting that has been ongoing for the past 2-3 weeks. As per patient and mother, she has been complaint with her medications at home. Patient admits to nausea, non-bilious vomiting, epigastric abdominal pain and fatigue but denies chest pain, palpitations, SOB, fever, chills, recent contact or recent travels. PMD: Dr. King PMHx: HTN, DM, gastroparesis, seizure disorder (to include pseudo-seizures) SurgHx: denies FamHx: Grandmother- DM SocHx: denies tobacco, alcohol, and drug use Allergies: NKDA Medications: Insulin 5 units QID, hydroxyzine 25mg daily, vitamin D 59195 units weekly, feosol 325mg BID, nifedipine 30mg PO daily, folic acid 1mg daily, losartan 25mg po daily, protonix 40mg HS, keppra 250mg BID, vitamin B12 1000mg daily. Social Hx: Lives with her mother, Unemployed and denies current or former use of tobacco, ETOH and illicit drugs. Present on Admission - Present on Admission Any Indicators Present on Admission: Yes History of Uncontrolled Diabetes: Yes Review of Systems - Constitutional Constitutional: Fatigue. absent: Chills, Fever, Headache, Weakness, Other - EENT Eyes: absent: Blurred Vision, Change in Vision Ears: absent: Dizziness Nose/Mouth/Throat: absent: Nasal Congestion - Cardiovascular Cardiovascular: Lightheadedness, Palpitations. absent: Chest Pain, Diaphoresis , Dyspnea, Dyspnea on Exertion - Respiratory Respiratory: absent: Dyspnea, Wheezing - Gastrointestinal Gastrointestinal: Abdominal Pain, Heartburn, Nausea, Vomiting. absent: Constipation, Dyspepsia, Dysphagia, Hematemesis, Hematochezia - Genitourinary Genitourinary: absent: Difficulty Urinating, Dysuria, Pyuria - Musculoskeletal Musculoskeletal: absent: Numbness, Tingling - Neurological Neurological: Headaches, Weakness. absent: Dizziness, Paresthesias - Endocrine Endocrine: Fatigue, Palpitations Past Patient History - Infectious Disease Hx of Infectious Diseases: None - Past Medical History & Family History Past Medical History?: Yes - Past Social History Smoking Status: Never Smoked - CARDIAC Hx Hypertension: Yes - PULMONARY Hx Respiratory Disorders: No - NEUROLOGICAL Hx Seizures: Yes - HEENT Hx HEENT Problems: Yes Other/Comment: blurred vision both eyes uses eyeglasses - RENAL Hx Chronic Kidney Disease: No - ENDOCRINE/METABOLIC Hx Endocrine Disorders: Yes Hx Diabetes Mellitus Type 2: Yes (on insulin pump) - HEMATOLOGICAL/ONCOLOGICAL Hx Anemia: Yes - INTEGUMENTARY Hx Dermatological Problems: No - MUSCULOSKELETAL/RHEUMATOLOGICAL Hx Falls: Yes - GASTROINTESTINAL Hx Gastrointestinal Disorders: Yes (SEE COMMENT) Other/Comment: gastroparesis - GENITOURINARY/GYNECOLOGICAL Hx Genitourinary Disorders: No - PSYCHIATRIC Hx Anxiety: Yes Hx Depression: Yes Hx Substance Use: No - SURGICAL HISTORY Hx Surgeries: No - ANESTHESIA Hx Anesthesia: Yes Hx Anesthesia Reactions: No Hx Malignant Hyperthermia: No Meds Allergies/Adverse Reactions: Allergies Allergy/AdvReac Type Severity Reaction Status Date / Time No Known Allergies Allergy Verified 11/23/17 20:22 Physical Exam - Head Exam Head Exam: ATRAUMATIC, NORMAL INSPECTION - Eye Exam Eye Exam: EOMI, Normal appearance - ENT Exam ENT Exam: Mucous Membranes Moist - Respiratory Exam Respiratory Exam: Clear to Auscultation Bilateral, NORMAL BREATHING PATTERN. absent: Prolonged Expiratory Phase, Rhonchi, Wheezes, Respiratory Distress, Stridor - Cardiovascular Exam Cardiovascular Exam: Tachycardia, REGULAR RHYTHM, +S1, +S2. absent: Diastolic murmur, Systolic Murmur - GI/Abdominal Exam GI & Abdominal Exam: Normal Bowel Sounds, Soft, Tenderness Additional comments: Diffuse generalized tenderness - Extremities Exam Extremities exam: Positive for: normal inspection. Negative for: calf tenderness, pedal edema, tenderness - Back Exam Back exam: NORMAL INSPECTION. absent: CVA tenderness (L), CVA tenderness (R) - Neurological Exam Neurological exam: Alert, CN II-XII Intact, Oriented x3 - Psychiatric Exam Psychiatric exam: Agitated, Anxious - Skin Skin Exam: Normal Color Results - Vital Signs Recent Vital Signs: Last Vital Signs Temp 98.5 F 11/24/17 00:47 Pulse 118 H 11/24/17 00:47 Resp 20 11/24/17 00:47 BP 185/111 H 11/24/17 00:47 Pulse Ox 100 11/24/17 00:47 - Labs Result Diagrams: 11/23/17 20:31 11/23/17 20:31 Labs: Laboratory Results - last 24 hr 11/23/17 11/23/17 11/23/17 20:31 20:31 21:17 WBC 7.7 RBC 4.98 Hgb 14.1 D Hct 43.1 MCV 86.4 MCH 28.3 MCHC 32.7 L RDW 14.4 Plt Count 395 MPV 10.0 Neut % (Auto) 51.2 Lymph % (Auto) 39.2 [place] % (Auto) 6.4 Eos % (Auto) 1.9 Baso % (Auto) 1.3 Neut # (Auto) 3.9 Lymph # (Auto) 3.0 [place] # (Auto) 0.5 Eos # (Auto) 0.1 Baso # (Auto) 0.1 pO2 VBG pH VBG pCO2 VBG HCO3 VBG Total CO2 VBG O2 Sat (Calc) VBG Base Excess VBG Potassium Glucose Lactate Sodium 141 Potassium 5.1 Chloride 106 Carbon Dioxide 23 Anion Gap 18 BUN 38 H Creatinine 4.0 H Est GFR ( Amer) 16 Est GFR (Non-Af Amer) 13 Random Glucose 121 H Calcium 9.3 Total Bilirubin 0.8 AST 32 ALT 19 Alkaline Phosphatase 198 H D Total Protein 8.1 Albumin 4.1 Globulin 4.0 H Albumin/Globulin Ratio 1.0 Lipase 18 L Beta HCG, Quant Venous Blood Potassium B-Hydroxybutyrate 0.43 H 11/23/17 11/23/17 21:34 21:42 WBC RBC Hgb Hct MCV MCH MCHC RDW Plt Count MPV Neut % (Auto) Lymph % (Auto) [place] % (Auto) Eos % (Auto) Baso % (Auto) Neut # (Auto) Lymph # (Auto) [place] # (Auto) Eos # (Auto) Baso # (Auto) pO2 65 H VBG pH 7.46 H VBG pCO2 32 L VBG HCO3 24.6 VBG Total CO2 23.8 VBG O2 Sat (Calc) 94.7 H VBG Base Excess -0.3 L VBG Potassium 4.0 Glucose 159 H Lactate 1.7 Sodium 140.0 Potassium Chloride 108.0 H Carbon Dioxide Anion Gap BUN Creatinine Est GFR ( Amer) Est GFR (Non-Af Amer) Random Glucose Calcium Total Bilirubin AST ALT Alkaline Phosphatase Total Protein Albumin Globulin Albumin/Globulin Ratio Lipase Beta HCG, Quant < 2.39 Venous Blood Potassium 4.0 B-Hydroxybutyrate Assessment & Plan (1) Gastroparesis Assessment and Plan: With intractable vomiting Reglan 15mg IV Q8H PRN Zofran 4mg IV Q6H PRN Status: Acute (2) ARF (acute renal failure) Assessment and Plan: Consultation: Nephrology consult Possibly secondary to intravascular volume Elevated BUN/CR NS @ 50mls/hr Home dose of losartan 25mg po daily held Continue to monitor with repeat lab Status: Acute (3) Diabetes mellitus Assessment and Plan: HgbA1C: 8.3 (09/22/17) Accuchecks ISS- high dose Hypoglycemia protocol Status: Chronic (4) History of hypertension Assessment and Plan: Hydralazine 10mg IV Q6H PRN (SBP> 160mmhg) Norvasc 10mg PO daily Nifidepine 60mg ER PO daily Status: Acute (5) History of anemia Assessment and Plan: H/H stable Status: Acute (6) Prophylactic measure Assessment and Plan: GI: Pepcid 20mg IV BID DVT: SCDs, ambulates Telemetry Seizure precautions for pseudoseizures All plans and management discussed with Dr. King Status: Acute
[2017-11-24] MEDS ORDERED: Dextrose 50% SYRINGE Inj (50 ml) IV PRN ×2 (02:12→08:42)
[2017-11-24] MEDS ORDERED: Glucagon Recombinant 1 mg Inj IM PRN ×3 (02:12→10:38)
[2017-11-24] MEDS ORDERED: Labetalol 25mg/5ml Syringe IVP ONE (02:52)
[2017-11-24] MEDS ORDERED: hydrOXYzine HCl 25 mg/ml Inj IM ONE (03:27)
[2017-11-24] MEDS: (Novolog) Insulin Aspart, Recombinant 100 u/ml 10 ml vial SC SCH ×4 (06:48→21:58)
[2017-11-24] MEDS ORDERED: Labetalol 25mg/5ml Syringe IVP STA (08:44)
[2017-11-24] MEDS ORDERED: (Novolog) Insulin Aspart, Recombinant 100 u/ml 10 ml vial SC ONE (08:45)
[2017-11-24] MEDS ORDERED: Sodium Chloride 0.45% 1,000 ML IV SCH (10:45)
[2017-11-24] MEDS: NIFEdipine 60 mg ER Tab PO SCH (11:01)
--- NOTE | 2017-11-24 11:10 | CP.PCM.CON ---
History of Present Illness - History of Present Illness History of Present Illness: HPI: Patient is a 27 year old female DM, HTN, gastroparesis, seizure disorder ( to include pseudo-seizure), anxiety and depression, who presents to the ED with her mother with complaint of intractable vomiting that has been ongoing for the past 2-3 weeks. Found to have a creatinine of 5, baseline creatinine in mid 2s. deneis any hematuria dysuria. reports good uop Currently on iv fluids no family hx of renal dz no nsaid use PMHx: HTN, DM, gastroparesis, seizure disorder (to include pseudo-seizures) SurgHx: denies FamHx: Grandmother- DM SocHx: denies tobacco, alcohol, and drug use Allergies: NKDA Medications: Insulin 5 units QID, hydroxyzine 25mg daily, vitamin D 87503 units weekly, feosol 325mg BID, nifedipine 30mg PO daily, folic acid 1mg daily, losartan 25mg po daily, protonix 40mg HS, keppra 250mg BID, vitamin B12 1000mg daily. Social Hx: Lives with her mother, Unemployed and denies current or former use of tobacco, ETOH and illicit drugs. Review of Systems - Review of Systems All systems: reviewed and no additional remarkable complaints except (as per hpi ) Past Patient History - Infectious Disease Hx of Infectious Diseases: None - Past Medical History & Family History Past Medical History?: Yes - Past Social History Smoking Status: Never Smoked - CARDIAC Hx Hypertension: Yes - PULMONARY Hx Respiratory Disorders: No - NEUROLOGICAL Hx Seizures: Yes - HEENT Hx HEENT Problems: Yes Other/Comment: blurred vision both eyes uses eyeglasses - RENAL Hx Chronic Kidney Disease: No - ENDOCRINE/METABOLIC Hx Endocrine Disorders: Yes Hx Diabetes Mellitus Type 2: Yes (on insulin pump) - HEMATOLOGICAL/ONCOLOGICAL Hx Anemia: Yes - INTEGUMENTARY Hx Dermatological Problems: No - MUSCULOSKELETAL/RHEUMATOLOGICAL Hx Falls: Yes - GASTROINTESTINAL Hx Gastrointestinal Disorders: Yes (SEE COMMENT) Other/Comment: gastroparesis - GENITOURINARY/GYNECOLOGICAL Hx Genitourinary Disorders: No - PSYCHIATRIC Hx Anxiety: Yes Hx Depression: Yes Hx Substance Use: No - SURGICAL HISTORY Hx Surgeries: No - ANESTHESIA Hx Anesthesia: Yes Hx Anesthesia Reactions: No Hx Malignant Hyperthermia: No Meds Allergies/Adverse Reactions: Allergies Allergy/AdvReac Type Severity Reaction Status Date / Time No Known Allergies Allergy Verified 11/23/17 20:22 - Medications Medications: Current Medications Dextrose (Dextrose 50% Inj) 0 ml IV STAT PRN; Protocol PRN Reason: Hypoglycemia Protocol Dextrose (Glutose 15) 0 gm PO ONCE PRN; Protocol PRN Reason: Hypoglycemia Protocol Famotidine (Pepcid) 20 mg IVP DAILY [facility] Last Admin: 11/24/17 09:13 Dose: 20 mg Glucagon (Glucagen Diagnostic Kit) 0 mg IM STAT PRN; Protocol PRN Reason: Hypoglycemia Protocol Glucagon (Glucagen Diagnostic Kit) 0 mg IM STAT PRN; Protocol PRN Reason: Hypoglycemia Protocol Glucagon (Glucagen Diagnostic Kit) 1 mg IM STAT PRN; Protocol PRN Reason: Hypoglycemia Protocol Sodium Chloride (Sodium Chloride 0.45%) 1,000 mls @ 125 mls/hr IV .Q8H [facility] Last Admin: 11/24/17 10:59 Dose: 125 mls/hr Dextrose (Dextrose 5% In Water 1000 Ml) 1,000 mls @ 0 mls/hr IV .Q0M PRN; Protocol; Per Protocol PRN Reason: Hypoglycemia Protocol Insulin Aspart (Novolog) 0 unit SC ACHS [facility] PRN Reason: Protocol Last Admin: 11/24/17 06:48 Dose: 10 units Insulin Detemir (Levemir) 30 unit SC BIDAC [facility] Metoclopramide HCl (Reglan) 10 mg IVP Q8H PRN PRN Reason: Nausea/Vomiting Last Admin: 11/24/17 05:36 Dose: 10 mg Nifedipine (Procardia Xl) 60 mg PO DAILY [facility] Last Admin: 11/24/17 11:01 Dose: 60 mg Ondansetron HCl (Zofran Inj) 4 mg IVP Q6H PRN PRN Reason: Nausea/Vomiting Last Admin: 11/24/17 02:28 Dose: 4 mg Physical Exam - Constitutional Appears: Non-toxic, In Acute Distress - Head Exam Head Exam: NORMAL INSPECTION, NORMOCEPHALIC - Eye Exam Eye Exam: Normal appearance, PERRL - ENT Exam ENT Exam: Mucous Membranes Moist, Normal Exam - Neck Exam Neck exam: Positive for: Normal Inspection - Respiratory Exam Respiratory Exam: Clear to Auscultation Bilateral, NORMAL BREATHING PATTERN - Cardiovascular Exam Cardiovascular Exam: REGULAR RHYTHM, RRR - GI/Abdominal Exam GI & Abdominal Exam: Distended, Normal Bowel Sounds, Soft - Extremities Exam Extremities exam: Positive for: full ROM, normal inspection - Back Exam Back exam: NORMAL INSPECTION - Neurological Exam Neurological exam: Alert, Oriented x3 - Psychiatric Exam Psychiatric exam: Normal Affect, Normal Mood - Skin Skin Exam: Normal Color, Warm Results - Vital Signs Recent Vital Signs: Last Vital Signs Temp 99.3 F 11/24/17 07:00 Pulse 113 H 11/24/17 10:54 Resp 20 11/24/17 07:00 BP 173/118 H 11/24/17 10:54 Pulse Ox 98 11/24/17 07:00 - Labs Result Diagrams: 11/23/17 20:31 11/23/17 20:31 Labs: Laboratory Results - last 24 hr 11/23/17 11/23/17 11/23/17 20:17 20:31 20:31 WBC 7.7 RBC 4.98 Hgb 14.1 D Hct 43.1 MCV 86.4 MCH 28.3 MCHC 32.7 L RDW 14.4 Plt Count 395 MPV 10.0 Neut % (Auto) 51.2 Lymph % (Auto) 39.2 [place] % (Auto) 6.4 Eos % (Auto) 1.9 Baso % (Auto) 1.3 Neut # (Auto) 3.9 Lymph # (Auto) 3.0 [place] # (Auto) 0.5 Eos # (Auto) 0.1 Baso # (Auto) 0.1 pO2 VBG pH VBG pCO2 VBG HCO3 VBG Total CO2 VBG O2 Sat (Calc) VBG Base Excess VBG Potassium Glucose Lactate Sodium 141 Potassium 5.1 Chloride 106 Carbon Dioxide 23 Anion Gap 18 BUN 38 H Creatinine 4.0 H Est GFR ( Amer) 16 Est GFR (Non-Af Amer) 13 POC Glucose (mg/dL) 107 Random Glucose 121 H Calcium 9.3 Total Bilirubin 0.8 AST 32 ALT 19 Alkaline Phosphatase 198 H D Total Protein 8.1 Albumin 4.1 Globulin 4.0 H Albumin/Globulin Ratio 1.0 Lipase 18 L Beta HCG, Quant Venous Blood Potassium B-Hydroxybutyrate 11/23/17 11/23/17 11/23/17 21:17 21:34 21:42 WBC RBC Hgb Hct MCV MCH MCHC RDW Plt Count MPV Neut % (Auto) Lymph % (Auto) [place] % (Auto) Eos % (Auto) Baso % (Auto) Neut # (Auto) Lymph # (Auto) [place] # (Auto) Eos # (Auto) Baso # (Auto) pO2 65 H VBG pH 7.46 H VBG pCO2 32 L VBG HCO3 24.6 VBG Total CO2 23.8 VBG O2 Sat (Calc) 94.7 H VBG Base Excess -0.3 L VBG Potassium 4.0 Glucose 159 H Lactate 1.7 Sodium 140.0 Potassium Chloride 108.0 H Carbon Dioxide Anion Gap BUN Creatinine Est GFR ( Amer) Est GFR (Non-Af Amer) POC Glucose (mg/dL) Random Glucose Calcium Total Bilirubin AST ALT Alkaline Phosphatase Total Protein Albumin Globulin Albumin/Globulin Ratio Lipase Beta HCG, Quant < 2.39 Venous Blood Potassium 4.0 B-Hydroxybutyrate 0.43 H Assessment & Plan (1) ARF (acute renal failure) Status: Acute (2) Abdominal pain with vomiting Status: Acute (3) Gastroparesis Status: Acute (4) Hypertension Status: Acute (5) Diabetes mellitus Status: Chronic - Assessment and Plan (Free Text) Assessment: -iv fluids -check ua -renal ultrasound -hold losartan -DM management per primary team
[2017-11-24 11:14] LABS: ARTERIAL BLOOD GAS HCO3 19.7 mmol/L (21-28); ARTERIAL BLOOD GAS O2 SAT 98.1 % (95-98); ARTERIAL BLOOD GAS PCO2 32 mm/Hg (35-45); ARTERIAL BLOOD GAS PH 7.35 (7.35-7.45); ARTERIAL BLOOD GAS PO2 188 mm/Hg (80-100); ARTERIAL BLOOD GAS TCO2 18.7 mmol/L (22-28)
[2017-11-24] MEDS ORDERED: DiphenhydrAMINE 50 mg/ml Inj IVP ONE ×2 (12:45→22:02)
--- NOTE | 2017-11-24 13:13 | PCM.RRT ---
HOOP BENDING MACHINE OPERATOR Nurses Assessment - Situation Date: 11/24/17 Time HOOP BENDING MACHINE OPERATOR was called: 12:07 HOOP BENDING MACHINE OPERATOR Responder Arrival Time:: 12:09 HOOP BENDING MACHINE OPERATOR Location:: Med/Surg Room Number: 661A HOOP BENDING MACHINE OPERATOR Reason for Call: Change in Mental Status (seizure-like activity) HOOP BENDING MACHINE OPERATOR Called By: RN - IV IV Fluids Initiated During HOOP BENDING MACHINE OPERATOR?: no - Respiratory HOOP BENDING MACHINE OPERATOR Delivery Method: Non Rebreather @% Oxygen Flow Rate: 2 Received Nebulizer Treatments: No Was the Patient Ventilated with Bag/Mask 100% O2?: No Secretions Suctioned?: No Was the Patient Intubated?: No Was the Patient Placed on a Ventilator?: No - Medication Medications Administered During HOOP BENDING MACHINE OPERATOR: none - Diagnostic Test Ordered EKG: Yes Chest X-Ray: No CT Scan: No - Stat Labs Ordered HOOP BENDING MACHINE OPERATOR Stat Labs Ordered: CBC, BMP, TROPONIN CPR started during HOOP BENDING MACHINE OPERATOR?: No - Vital Signs Vital Signs: temperature 98.7, O2 99%, HR 115, BP 144/80, RR within normal parameters - Recommendations 5) HOOP BENDING MACHINE OPERATOR Level of Care Recommendations: Remain in current setting (consult placed to ICU) Notifications: Attending Physician (Dr. King), Consultations (ICU) I.Reason for HOOP BENDING MACHINE OPERATOR - A) Acute Change in Patient: (Select all that apply): Acute change in mental status (seizure-like activity) - Neurological Status (Select all that apply): Responsive (selectively), Oriented, Follows Commands - Respiratory Oxygen Delivery Method: Non Rebreather @% (2) - Constitutional Appears: Non-toxic, Other (in mild distress) Additional Comments: difficult to assess completely because patient was not cooperative with exam - Head Head Exam: ATRAUMATIC, NORMAL INSPECTION, NORMOCEPHALIC - Eyes Eye Exam: EOMI, Normal appearance, PERRL - Respiratory Exam Respiratory Exam: Clear to Ausculation Bilateral, NORMAL BREATHING PATTERN. absent: Decreased Breath Sounds, Rhonchi, Wheezes - Cardiovascular Exam Cardiovascular Exam: REGULAR RHYTHM, RRR - Neurological Exam Neurological Exam: Awake, Oriented x3 Additional exam: arousable, responsive to sound/voice and sensation (touch, light) - Extremities Exam Extremities Exam: Normal Inspection Plan - Assessment of Findings&Treatment Plan Rapid response was called for patient at 12:07 PM by nurse for seizure-like activity. Nurse reported she was talking to patient about pain medication management, and patient began shaking her entire body vigorously. Patient was rolled to side and head was stabilized. Vitals were obtained: temp 98.7, HR 115 , BP 144/80, O2 99%. Patient ceased shaking spontaneously without any drug intervention. Patient was examined and selectively responsive to certain commands, including eye exam, spontaneous response to commands and questions. While nurse was attempting to obtain labs, a second episode occurred during which patient was shaking vigorously as before. Nursing spoke to the patient in attempt to calm her down, at which time, she stopped shaking and then was immediately alert and responsive. She did not appear groggy, confused, or in a post-ictal state. Labs were drawn including CBC, BMP, MG, troponin, and EKG ordered. Primary attending physician was notified and recommended ICU consultation.
[2017-11-24] MEDS ORDERED: HYDROmorphone 0.5 mg/0.5 ml ISec IVP SCH (13:15)
[2017-11-24] MEDS: Potassium Ch 20mEq in D5-1/2NS 1,000 ML IV SCH ×2 (13:21→19:53)
--- NOTE | 2017-11-24 13:26 | PCM.PSYCH ---
Initial Psychiatric Evaluation - Initial Psychiatric Evaluation Type of Admission: Voluntary Legal Status: Capacity Chief Complaint (in patient's own words): I m feeling depressed.' History of Present Illness and Precipitating Events: Patient is a 27 year old female DM, HTN, gastroparesis, seizure disorder (to include pseudo-seizure), anxiety and depression, who presents to the ED with her mother with complaint of intractable vomiting that has been ongoing for the past 2-3 weeks. Pt presented with Cr of 4.0. Today pt was consulted by psychiatry team. Pt was tearful and crying during the interview. Pt was a poor historian. She remained guarded, and irritable during interview. She reports that she can not stop vomiting. Molder Fitting is familiar with the patient. Pt has been hospitalized multiple times on the medical floor because of similar complaints in the past. She was just discharged from medical floor 2 months ago. She continued to induce vomiting during the interview. She also complained of pain in the abdomen. She reports of depressed mood, but denies any suicidal ideation and homicidal ideation or any auditory or visual hallucinations. Mother reports that she has no idea what has set her off, she was doing ruthy. PMH: DM, HTN, gastroparesis, pseudo-seizure Current Medications: Active Medications Generic Name Dose Route Start Last Admin Trade Name Freq PRN Reason Stop Dose Admin Dextrose 0 ml 11/24/17 10:38 Dextrose 50% Inj IV STAT PRN Hypoglycemia Protocol Protocol Dextrose 0 gm 11/24/17 10:38 Glutose 15 PO ONCE PRN Hypoglycemia Protocol Protocol Famotidine 20 mg 11/24/17 10:00 11/24/17 09:13 Pepcid IVP 20 mg DAILY [facility]EL[facility] Administration Glucagon 0 mg 11/24/17 02:12 Glucagen Diagnostic Kit IM STAT PRN Hypoglycemia Protocol Protocol Glucagon 0 mg 11/24/17 08:42 Glucagen Diagnostic Kit IM STAT PRN Hypoglycemia Protocol Protocol Glucagon 1 mg 11/24/17 10:38 Glucagen Diagnostic Kit IM STAT PRN Hypoglycemia Protocol Protocol Hydromorphone HCl 0.25 mg 11/24/17 13:15 11/24/17 13:21 Dilaudid IVP 0.25 mg Q8H [facility] Administration Sodium Chloride 1,000 mls @ 125 mls/hr 11/24/17 10:45 11/24/17 10:59 Sodium Chloride 0.45% IV 125 mls/hr .Q8H [facility] Administration Dextrose 1,000 mls @ 0 mls/hr 11/24/17 10:38 Dextrose 5% In Water 1000 Ml IV .Q0M PRN Hypoglycemia Protocol Protocol Per Protocol Potassium Chloride/Dextrose/Sod Cl 1,000 mls @ 125 mls/hr 11/24/17 12:30 11/04 13:21 Potassium Chl 20 Meq In D5-1/2ns IV 125 mls/hr .Q8H [facility] Administration Insulin Aspart 0 unit 11/24/17 07:30 11/24/17 12:27 Novolog SC 10 units ACHS [facility]N Administration Protocol Insulin Detemir 30 unit 11/24/17 18:00 Levemir SC BIDAC [facility] Metoclopramide HCl 10 mg 11/24/17 01:00 11/24/17 05:36 Reglan IVP 10 mg Q8H PRN Administration Nausea/Vomiting Nifedipine 60 mg 11/24/17 10:00 11/24/17 11:01 Procardia Xl PO 60 mg DAILY [facility] Administration Ondansetron HCl 4 mg 11/24/17 01:00 11/24/17 02:28 Zofran Inj IVP 4 mg Q6H PRN Administration Nausea/Vomiting Past Psychiatric History - Past Psychiatric History Previous Treatment History: None Pertinent Medical Hx (Current Medical&Sleep Prob, Allergies): Allergies Allergy/AdvReac Type Severity Reaction Status Date / Time No Known Allergies Allergy Verified 11/23/17 20:22 Insulin Lispro [Humalog (Insulin Lispro)] 0 units SC TIDPC 03/09/17 Losartan [Cozaar] 25 mg PO DAILY 05/31/17 Metoclopramide [Reglan] 10 mg PO TID PRN 09/21/17 Ferrous Sulfate 11/23/17 Folic Acid 11/23/17 Review of Systems - Review of Systems All systems: reviewed and no additional remarkable complaints except - Psychiatric Psychiatric: Anxiety, Irritability. absent: Suicidal Ideation Mental Status Examination - Personal Presentation Personal Presentation: Looks stated age - Affect Affect: Constricted, Depressed - Motor Activity Motor Activity: Psychomotor Agitation - Reliability in Providing Information Reliability in Providing Information: Poor, due to altered mood - Speech Speech: Organized - Mood Mood: Depressed, Anxious - Formal Thought Process Formal Thought Process: No Impairment - Obsessions/Compulsions Obsessions: No Compulsions: No - Cognitive Functions Orientation: Person, Place, Situation, Time Sensorium: Alert Attention/Concentration: Attentive Abstract Thinking: Emmet Estimate of Intelligence: Below average Judgement: Imparied, as evidence by: Poor judgement, Imparied, as evidence by: Lack of insight into illness - Risk Risk: Diminished functioning - Strength & Assets Inventory Strength & Assets Inventory: Family support DSM 5 DX - DSM 5 DSM 5 Diagnosis: Depressive disorder Munchausen syndrome - Recommended/Plan of Treatment Treatment Recommendations and Plan of Treatment: CBT Psychoeducation Supportive therapy, milieu therapy Haldol and benadryl for anxiety - Smoking Cessation Smoking Cessation Initiated: No
[2017-11-24 14:08] LABS: CALCIUM 9.3 mg/dl (8.6-10.4)
--- NOTE | 2017-11-24 15:58 | RAD ---
Date of service: 11/24/2017 HISTORY: PICC Insertion COMPARISON: Portable chest 06/10/2017. FINDINGS: LUNGS: No active pulmonary disease. Improved inspiratory volume noted. PLEURA: No significant pleural effusion identified, no pneumothorax apparent. CARDIOVASCULAR: Normal. OSSEOUS STRUCTURES: No significant abnormalities. VISUALIZED UPPER ABDOMEN: Normal. OTHER FINDINGS: Right PICC removed. IMPRESSION: No interval acute cardiopulmonary disease appreciated. Improved inspiratory volume noted throughout.
[2017-11-24 17:22] LABS: BASO % 0.4 % (0.0-2.0); LYMPH # 1.1 K/uL (1.0-4.3); LYMPH % 8.8 % (20.0-40.0); MEAN CORPUSCULAR HEMOGLOBIN 27.4 pg (27.0-31.0); MEAN CORPUSCULAR HGB CONC 31.8 g/dL (33.0-37.0); MEAN PLATELET VOLUME 10.5 fL (7.2-11.7); MONO # 0.7 K/uL (0.0-0.8); MONO % 6.2 % (0.0-10.0); NEUT # 10.2 K/uL (1.8-7.0); NEUT % 84.6 % (50.0-75.0); PLATELET COUNT 311 K/uL (130-400); RBC 4.23 Mil/uL (3.80-5.20); RED CELL DISTRIBUTION WIDTH 13.7 % (11.5-14.5)
[2017-11-24 17:27] LABS: HEMOGLOBIN 11.6 g/dL (11.0-16.0)
[2017-11-24] MEDS: Insulin Detemir 100 units/ml Vial (Levemir) SC SCH (17:58)
[2017-11-24 18:17] LABS: LYMPHOCYTE 6 % (20-40); MONOCYTE 2 % (0-10); NEUTROPHIL 92 % (50-75); TOTAL CELLS COUNTED 100
[2017-11-24 18:18] LABS: PLATELET ESTIMATE NORMAL (NORMAL)
[2017-11-24 18:19] LABS: HYPOCHROMIC SLIGHT; POLYCHROMIC SLIGHT
--- NOTE | 2017-11-24 18:24 | CP.PCM.PN ---
Subjective - Date & Time of Evaluation Date of Evaluation: 11/24/17 Time of Evaluation: 12:15 - Subjective Subjective: PGY-1 Medicine Progress Note for Dr. King's service Patient seen and examined at bedside. As per nursing, patient had elevated blood sugars in AM (>500s) and elevated blood pressures (>180/100) with repeat measurements. Patient was found to be sneaking sugar filled drinks (including juices and sodas) even though patient was instructed about her elevated sugars and that she was NPO. Patient was given Levemir 30mg bid and 8 units of novolog however repeat blood sugar checks remained elevated. Labetolol 10mg IVP was administered for elevated blood pressure but repeat checks showed blood pressure was elevated (>160/90). As per nursing and prior admissions, patient was found to be inducing episodes of vomiting. Patient was complaining of abdominal pain associated with nausea and vomiting. Patient was asking for Ativan and pain medication for her abdominal pain. Code sepsis was called when patient's ABG came back with elevated lactate, however, as per Dr. King it was cancelled. Afterwards patient was discussing possible pain medications with nursing and after nursing instructed her that no pain medications were currently ordered, patient began seizing. [employer] was called. Patient was evaluated during [employer] for pseudoseizures unlikely it was real seizures. This is because patient had no post-ictal period, no lethargy, patient kept eyelid tone while physician was lifting eyelids, patient avoided light when it was shone in her eye. Patient stopped seizing but soon after began seizing again. Patient was instructed that she cannot be given ativan or pain meds during seizures or if she kept vomiting. TV was placed in patient's room after it became known that patient was inducing vomiting. Patient's blood pressure has come down to 117/76 but remains with elevated sugars in the 300s. Psych consult was placed as patient may be Munchhausen. Objective - Vital Signs/Intake and Output Vital Signs (last 24 hours): Temp Pulse Resp BP Pulse Ox 100.8 F H 112 H 20 117/66 97 11/24/17 15:26 11/24/17 16:00 11/24/17 15:26 11/24/17 15:26 11/24/17 15:26 Intake and Output: 08/07/18 08/07/18 06:59 18:59 Intake Total 562.5 Balance 562.5 - Medications Medications: Current Medications Dextrose (Dextrose 50% Inj) 0 ml IV STAT PRN; Protocol PRN Reason: Hypoglycemia Protocol Dextrose (Glutose 15) 0 gm PO ONCE PRN; Protocol PRN Reason: Hypoglycemia Protocol Famotidine (Pepcid) 20 mg IVP DAILY [facility] Last Admin: 11/24/17 09:13 Dose: 20 mg Glucagon (Glucagen Diagnostic Kit) 0 mg IM STAT PRN; Protocol PRN Reason: Hypoglycemia Protocol Glucagon (Glucagen Diagnostic Kit) 0 mg IM STAT PRN; Protocol PRN Reason: Hypoglycemia Protocol Glucagon (Glucagen Diagnostic Kit) 1 mg IM STAT PRN; Protocol PRN Reason: Hypoglycemia Protocol Hydromorphone HCl (Dilaudid) 0.25 mg IVP Q8H PRN PRN Reason: Pain, moderate (4-7) Sodium Chloride (Sodium Chloride 0.45%) 1,000 mls @ 125 mls/hr IV .Q8H [facility] Last Admin: 11/24/17 10:59 Dose: 125 mls/hr Dextrose (Dextrose 5% In Water 1000 Ml) 1,000 mls @ 0 mls/hr IV .Q0M PRN; Protocol; Per Protocol PRN Reason: Hypoglycemia Protocol Potassium Chloride/Dextrose/Sod Cl (Potassium Chl 20 Meq In D5-1/2ns) 1,000 mls @ 125 mls/hr IV .Q8H [facility] Last Admin: 11/24/17 13:21 Dose: 125 mls/hr Insulin Aspart (Novolog) 0 unit SC ACHS [facility] PRN Reason: Protocol Last Admin: 11/24/17 17:59 Dose: 10 units Insulin Detemir (Levemir) 30 unit SC BIDAC [facility] Last Admin: 11/24/17 17:58 Dose: 30 units Metoclopramide HCl (Reglan) 10 mg IVP Q8H PRN PRN Reason: Nausea/Vomiting Last Admin: 11/24/17 17:59 Dose: 10 mg Nifedipine (Procardia Xl) 60 mg PO DAILY [facility] Last Admin: 11/24/17 11:01 Dose: 60 mg Ondansetron HCl (Zofran Inj) 4 mg IVP Q6H PRN PRN Reason: Nausea/Vomiting Last Admin: 11/24/17 02:28 Dose: 4 mg - Labs Labs: 11/24/17 17:16 11/24/17 12:55 - Constitutional Appears: In Acute Distress, Agitated - Head Exam Head Exam: NORMAL INSPECTION, NORMOCEPHALIC - Eye Exam Eye Exam: EOMI, Normal appearance. absent: Nystagmus, Scleral icterus - ENT Exam ENT Exam: Mucous Membranes Moist, Normal Exam - Neck Exam Neck Exam: Normal Inspection. absent: Lymphadenopathy, Tenderness - Respiratory Exam Respiratory Exam: Clear to Ausculation Bilateral, NORMAL BREATHING PATTERN. absent: Wheezes - Cardiovascular Exam Cardiovascular Exam: Tachycardia, REGULAR RHYTHM, +S1, +S2. absent: Murmur - GI/Abdominal Exam GI & Abdominal Exam: Guarding, Soft, Tenderness, Normal Bowel Sounds. absent: Distended, Firm - Extremities Exam Extremities Exam: Normal Inspection. absent: Calf Tenderness, Pedal Edema - Back Exam Back Exam: NORMAL INSPECTION. absent: CVA tenderness (L), CVA tenderness (R) - Neurological Exam Neurological Exam: Alert, Awake, Oriented x3 - Psychiatric Exam Psychiatric exam: Agitated, Anxious - Skin Skin Exam: Dry, Intact, Normal Color. absent: Cyanosis, Diaphoretic Assessment and Plan - Assessment and Plan (Free Text) Assessment: Patient is a 27 y.o female wiht PMH of HTN, CKD, Anemia, Psuedoseziurse, anxiety , and depression comes to the hospital for evaluation of intractable vomiting a/ w abdominal pain Plan: Diabetes Meillitus Elevated sugars (>500s) x 3; Patient was NPO yet continued to drink sugary drinks ISS-high dose; Levemir 30 units sc BID jossue KCl/Dextrose/NaCl 1L @ 125ml/hr Accuchecks; Hypoglycemic protocol Hypertensive Urgency 198/115 in AM; Currently 117/66 Labetolol 10mg IVP x 1 (1 time dose) Nifedipine 60mg po daily Acute Renal Failure on CKD stage 3 BUN/CR: 48/5.0; Patient likely volume depleted in setting of continued vomiting even with elevated blood pressures Pre renal etiology KCl/Dextrose/NaCl 1L @ 125ml/hr Nephrology consulted: Dr. Nieves- appreciate recommendations PICC line inserted BMP x 3 q3h UA pending Renal U/S pending Abdominal Pain with vomiting Reglan 10mg IVP q8h Zofran 3mg IVP q6 prn Dilaudid 0.25mg IV q8 prn Patient was seen to be inducing vomiting by putting finger down throat by nursing staff [facility] Psych consult- Dr. New- recommendations apprecaited Prophylaxis Pepcid 20mg IVP daily Patient seen today with Code Sepsis called, [employer] called. Patient has history of similar symptoms with patient inducing vomiting and pseudoseizures for treatment with Ativan. Patient continuously drank sugary drinks when she was NPO. Patient complained of severe abdominal pain with guarding but was seen to be ambulating to get more juice and gingerale soda.
[2017-11-24 19:41] LABS: ALB/GLOB RATIO 1.1 (1.0-2.1); ALBUMIN 3.4 g/dL (3.5-5.0); CALCIUM 9.2 mg/dl (8.6-10.4)
[2017-11-24 19:51] LABS: CK-MB 2.83 ng/mL (0.0-3.38); TROPONIN I 0.046 ng/mL (0.00-0.120)
[2017-11-24] MEDS: HYDROmorphone 0.5 mg/0.5 ml ISec IVP PRN (21:58)
[2017-11-24] MEDS ORDERED: Sodium Chloride 0.9% 1,000 ML IV SCH (23:00)
[2017-11-25] MEDS: HYDROmorphone 0.5 mg/0.5 ml ISec IVP PRN ×3 (05:49→22:05)
--- NOTE | 2017-11-25 06:36 | CP.PCM.PN ---
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 with nephrotic syndrome, being followed by our outpatient service, presents with yet another gastroparesis flare, GABRIELA; Nursing staff saying that patient has responded to reglan; having "pseudoseizure " activity earlier today; found to have lactate elevation that subsequently corrected with IVF but spiked fever earlier this evening; otherwise, patient resting comfortably, no vomiting since past couple of hours (though she does have bucket with small amount of bilious vomitus next to her); Considering that patient's GABRIELA has not responded to IVF, we will give her further volume challenge overnight; -Changing IVF from 1/2NS to NS at 125 cc/hr; -checking blood/urine cultures, procalcitionin level; -urine studies ordered (concern for progression to ATN) -continue current BP meds; -awaiting renal US (patient had been refusing); Objective - Vital Signs/Intake and Output Vital Signs (last 24 hours): Temp Pulse Resp BP Pulse Ox 97.6 F 93 H 20 125/86 95 11/25/17 04:00 11/25/17 04:00 11/25/17 04:00 11/25/17 04:00 11/25/17 04:00 Intake and Output: 11/24/17 11/25/17 18:59 06:59 Intake Total 562.5 1000 Balance 562.5 1000 - Medications Medications: Current Medications Dextrose (Dextrose 50% Inj) 0 ml IV STAT PRN; Protocol PRN Reason: Hypoglycemia Protocol Dextrose (Glutose 15) 0 gm PO ONCE PRN; Protocol PRN Reason: Hypoglycemia Protocol Famotidine (Pepcid) 20 mg IVP DAILY [facility] Last Admin: 11/24/17 09:13 Dose: 20 mg Glucagon (Glucagen Diagnostic Kit) 0 mg IM STAT PRN; Protocol PRN Reason: Hypoglycemia Protocol Glucagon (Glucagen Diagnostic Kit) 0 mg IM STAT PRN; Protocol PRN Reason: Hypoglycemia Protocol Glucagon (Glucagen Diagnostic Kit) 1 mg IM STAT PRN; Protocol PRN Reason: Hypoglycemia Protocol Hydromorphone HCl (Dilaudid) 0.25 mg IVP Q8H PRN PRN Reason: Pain, moderate (4-7) Last Admin: 11/25/17 05:49 Dose: 0.25 mg Dextrose (Dextrose 5% In Water 1000 Ml) 1,000 mls @ 0 mls/hr IV .Q0M PRN; Protocol; Per Protocol PRN Reason: Hypoglycemia Protocol Potassium Chloride/Dextrose/Sod Cl (Potassium Chl 20 Meq In D5-1/2ns) 1,000 mls @ 125 mls/hr IV .Q8H [facility] Last Admin: 11/24/17 19:53 Dose: Not Given Sodium Chloride (Sodium Chloride 0.9%) 1,000 mls @ 125 mls/hr IV .Q8H [facility] Stop: 11/25/17 06:59 Last Admin: 11/24/17 23:04 Dose: 125 mls/hr Insulin Aspart (Novolog) 0 unit SC ACHS [facility] PRN Reason: Protocol Last Admin: 11/24/17 21:58 Dose: 3 units Insulin Detemir (Levemir) 30 unit SC BIDAC [facility] Last Admin: 11/24/17 17:58 Dose: 30 units Metoclopramide HCl (Reglan) 10 mg IVP Q8H PRN PRN Reason: Nausea/Vomiting Last Admin: 11/25/17 05:25 Dose: 10 mg Nifedipine (Procardia Xl) 60 mg PO DAILY [facility] Last Admin: 11/24/17 11:01 Dose: 60 mg Ondansetron HCl (Zofran Inj) 4 mg IVP Q6H PRN PRN Reason: Nausea/Vomiting Last Admin: 11/24/17 21:57 Dose: 4 mg - Labs Labs: 11/24/17 17:16 11/24/17 17:16
--- NOTE | 2017-11-25 07:08 | CP.PCM.PN ---
<Audelia Pérez - Last Filed: 11/25/17 12:54> Subjective - Date & Time of Evaluation Date of Evaluation: 11/25/17 Time of Evaluation: 08:00 - Subjective Subjective: Nephrology Progress Note for Tristan Weinberg PGY3 Patient seen and examined at bedside. This morning patient had a rapid response for "pseudoseizure" today. She was found to be shaking. Upon examination she was feeling nauseous and spitting up clear mucus. She denies chest pain, shortness of breath, fever/chills, diarrhea, numbness/tingling. Objective - Vital Signs/Intake and Output Vital Signs (last 24 hours): Temp Pulse Resp BP Pulse Ox 97.3 F L 103 H 20 170/103 H 98 11/25/17 05:50 11/25/17 05:50 11/25/17 05:50 11/25/17 05:50 11/25/17 05:50 Intake and Output: 11/25/17 11/25/17 06:59 18:59 Intake Total 1000 Balance 1000 - Medications Medications: Current Medications Dextrose (Dextrose 50% Inj) 0 ml IV STAT PRN; Protocol PRN Reason: Hypoglycemia Protocol Dextrose (Glutose 15) 0 gm PO ONCE PRN; Protocol PRN Reason: Hypoglycemia Protocol Famotidine (Pepcid) 20 mg IVP DAILY [facility] Last Admin: 11/24/17 09:13 Dose: 20 mg Glucagon (Glucagen Diagnostic Kit) 0 mg IM STAT PRN; Protocol PRN Reason: Hypoglycemia Protocol Glucagon (Glucagen Diagnostic Kit) 0 mg IM STAT PRN; Protocol PRN Reason: Hypoglycemia Protocol Glucagon (Glucagen Diagnostic Kit) 1 mg IM STAT PRN; Protocol PRN Reason: Hypoglycemia Protocol Hydromorphone HCl (Dilaudid) 0.25 mg IVP Q8H PRN PRN Reason: Pain, moderate (4-7) Last Admin: 11/25/17 05:49 Dose: 0.25 mg Dextrose (Dextrose 5% In Water 1000 Ml) 1,000 mls @ 0 mls/hr IV .Q0M PRN; Protocol; Per Protocol PRN Reason: Hypoglycemia Protocol Potassium Chloride/Dextrose/Sod Cl (Potassium Chl 20 Meq In D5-1/2ns) 1,000 mls @ 125 mls/hr IV .Q8H [facility] Last Admin: 11/24/17 19:53 Dose: Not Given Insulin Aspart (Novolog) 0 unit SC ACHS [facility] PRN Reason: Protocol Last Admin: 11/24/17 21:58 Dose: 3 units Insulin Detemir (Levemir) 30 unit SC BIDAC [facility] Last Admin: 11/24/17 17:58 Dose: 30 units Metoclopramide HCl (Reglan) 10 mg IVP Q8H PRN PRN Reason: Nausea/Vomiting Last Admin: 11/25/17 05:25 Dose: 10 mg Nifedipine (Procardia Xl) 60 mg PO DAILY [facility] Last Admin: 11/24/17 11:01 Dose: 60 mg Ondansetron HCl (Zofran Inj) 4 mg IVP Q6H PRN PRN Reason: Nausea/Vomiting Last Admin: 11/24/17 21:57 Dose: 4 mg - Labs Labs: 11/24/17 17:16 11/24/17 17:16 - Constitutional Appears: No Acute Distress, Unkempt - Head Exam Head Exam: ATRAUMATIC, NORMAL INSPECTION, NORMOCEPHALIC - Eye Exam Eye Exam: Normal appearance, PERRL Pupil Exam: NORMAL ACCOMODATION - ENT Exam ENT Exam: Mucous Membranes Moist - Respiratory Exam Respiratory Exam: Clear to Ausculation Bilateral, NORMAL BREATHING PATTERN. absent: Rales, Rhonchi, Wheezes - Cardiovascular Exam Cardiovascular Exam: Tachycardia, REGULAR RHYTHM, +S1, +S2. absent: Gallop, Rubs, Murmur - GI/Abdominal Exam GI & Abdominal Exam: Soft, Tenderness, Hypoactive Bowel Sounds. absent: Rigid, Rebound - Extremities Exam Extremities Exam: absent: Calf Tenderness, Pedal Edema - Neurological Exam Neurological Exam: Alert, Awake, CN II-XII Intact, Oriented x3 - Skin Skin Exam: Dry, Intact, Warm Assessment and Plan - Assessment and Plan (Free Text) Assessment: This is a 27yo female with past medical history of CKD IIIb secondary to diabetic nephropathy and nephrotic syndrome diagnosed on biopsy who was admitted for 1. GABRIELA on CKD IIIb - can be secondary to pre-renal etiology on top of underlying uncontrolled DM with nephrotic syndrome - FeNa 0.1% indicating pre-renal etiology - Cr is still the same despite fluid challenge - Patient volume depleted with urine sodium <5 - Will give 500cc bolus then increase fluids 1/2 NS@150 - Monitor I&O - Renal US pending- pt is still refusing 2. Hypernatremia - most likely secondary to dehydration from poor PO intake - Continue IV hydration 3. HTN - Continue procardia 4. Gastroparesis - Continue Reglan 5. IDDM - pt NPO - had insulin pump at home - on Insulin sliding scale and 6. SIRS - leukocytosis with tachycardia lactic acidosis and fever yesterday - U/A + for bacteria, but many epithelial cells Case seen, discussed and reviewed with Dr. Nieves. Tristan Pérez PGY3 <Migue Nieves - Last Filed: 11/26/17 08:22> Objective - Vital Signs/Intake and Output Vital Signs (last 24 hours): Temp Pulse Resp BP Pulse Ox 98.1 F 117 H 20 129/69 97 11/25/17 15:56 11/26/17 07:49 11/25/17 15:56 11/25/17 15:56 11/25/17 15:56 Intake and Output: 11/26/17 11/26/17 06:59 18:59 Intake Total 1200 Balance 1200 - Medications Medications: Current Medications Dextrose (Dextrose 50% Inj) 0 ml IV STAT PRN; Protocol PRN Reason: Hypoglycemia Protocol Last Admin: 11/26/17 06:22 Dose: 50 ml Dextrose (Glutose 15) 0 gm PO ONCE PRN; Protocol PRN Reason: Hypoglycemia Protocol Diphenhydramine HCl (Benadryl) 25 mg IVP Q8H PRN PRN Reason: Itching / Pruritus Last Admin: 11/26/17 06:04 Dose: 25 mg Famotidine (Pepcid) 20 mg IVP DAILY [facility] Last Admin: 11/25/17 09:41 Dose: 20 mg Glucagon (Glucagen Diagnostic Kit) 0 mg IM STAT PRN; Protocol PRN Reason: Hypoglycemia Protocol Glucagon (Glucagen Diagnostic Kit) 0 mg IM STAT PRN; Protocol PRN Reason: Hypoglycemia Protocol Glucagon (Glucagen Diagnostic Kit) 1 mg IM STAT PRN; Protocol PRN Reason: Hypoglycemia Protocol Hydromorphone HCl (Dilaudid) 0.25 mg IVP Q8H PRN PRN Reason: Pain, moderate (4-7) Last Admin: 11/26/17 06:04 Dose: 0.25 mg Dextrose (Dextrose 5% In Water 1000 Ml) 1,000 mls @ 0 mls/hr IV .Q0M PRN; Protocol; Per Protocol PRN Reason: Hypoglycemia Protocol Sodium Chloride (Sodium Chloride 0.45%) 1,000 mls @ 150 mls/hr IV .Q6H40M [facility] Last Admin: 11/26/17 02:58 Dose: 150 mls/hr Insulin Aspart (Novolog) 0 unit SC ACHS [facility] PRN Reason: Protocol Last Admin: 11/26/17 08:11 Dose: Not Given Insulin Detemir (Levemir) 30 unit SC BIDAC [facility] Last Admin: 11/25/17 18:16 Dose: 30 units Metoclopramide HCl (Reglan) 10 mg IVP Q8H PRN PRN Reason: Nausea/Vomiting Last Admin: 11/26/17 02:56 Dose: 10 mg Nifedipine (Procardia Xl) 60 mg PO DAILY [facility] Last Admin: 11/25/17 09:34 Dose: Not Given Ondansetron HCl (Zofran Inj) 4 mg IVP Q6H PRN PRN Reason: Nausea/Vomiting Last Admin: 11/24/17 21:57 Dose: 4 mg - Labs Labs: 11/25/17 09:24 11/25/17 17:27 Attending/Attestation - Attestation I have personally seen and examined this patient.: Yes I have fully participated in the care of the patient.: Yes I have reviewed all pertinent clinical information, including history, physical exam and plan: Yes Notes (Text): Patient seen and examined; I agree with the resident's note as above with the following edits/additions: Patient with GABRIELA on CKD IIIB, diabetic nephropathy with nephrotic syndrome, admitted with yet another gastroparesis flare; Markedly low urine Na consistent with pre-renal etiology of GABRIELA; giving 500 cc NS bolus and increasing 1/2NS to 150 cc/ht; Still having spikes of BP at times, but BP overall controlled; not able to hold down PO meds; agree with prn IV labetalol if BP persistently high; Had temp spike yesterday; UA appears contaminated; f/u blood/urine cultures; director outpatient services prognosis is guarded; will continue to f/u.
[2017-11-25] MEDS: (Novolog) Insulin Aspart, Recombinant 100 u/ml 10 ml vial SC SCH ×5 (07:40→22:38)
[2017-11-25] MEDS: Insulin Detemir 100 units/ml Vial (Levemir) SC SCH ×2 (07:40→18:16)
--- NOTE | 2017-11-25 09:18 | PCM.RRT ---
PHOTOGRAPHER LITHOGRAPHIC Nurses Assessment - Situation Date: 11/25/17 Time PHOTOGRAPHER LITHOGRAPHIC was called: 08:36 PHOTOGRAPHER LITHOGRAPHIC Responder Arrival Time:: 08:37 PHOTOGRAPHER LITHOGRAPHIC Location:: T Med/Surg Room Number: 661A PHOTOGRAPHER LITHOGRAPHIC Reason for Call: Change in Mental Status PHOTOGRAPHER LITHOGRAPHIC Called By: RN - IV IV Inserted during PHOTOGRAPHER LITHOGRAPHIC?: No New IV Insertion Tolerance: Good - Respiratory PHOTOGRAPHER LITHOGRAPHIC Delivery Method: Non Rebreather @% Oxygen Flow Rate: 4 Received Nebulizer Treatments: No Was the Patient Ventilated with Bag/Mask 100% O2?: No Secretions Suctioned?: No Was the Patient Intubated?: No Was the Patient Placed on a Ventilator?: No - Medication Medications Administered During PHOTOGRAPHER LITHOGRAPHIC: none - Diagnostic Test Ordered EKG: No Chest X-Ray: No CT Scan: No CPR started during PHOTOGRAPHER LITHOGRAPHIC?: No - Eloy Coma Scale Coma Scale Eye Opening: To verbal stimuli - Time PHOTOGRAPHER LITHOGRAPHIC Ended Time PHOTOGRAPHER LITHOGRAPHIC Ended: 08:46 - Vital Signs at end of PHOTOGRAPHER LITHOGRAPHIC Vital Signs at end of PHOTOGRAPHER LITHOGRAPHIC: Vitals: BP: 152/85 HR:121 - Recommendations 5) PHOTOGRAPHER LITHOGRAPHIC Level of Care Recommendations: Remain in current setting (consult placed to ICU) Notifications: Attending Physician I.Reason for PHOTOGRAPHER LITHOGRAPHIC - A) Acute Change in Patient: (Select all that apply): Acute change in mental status ("seizure like activity") - Neurological Status (Select all that apply): Follows Commands - Respiratory Oxygen Delivery Method: Non Rebreather @% Oxygen Flow Rate: 4 - Constitutional Appears: Non-toxic, In Acute Distress, Other ("seizure like activity") - Head Head Exam: ATRAUMATIC, NORMAL INSPECTION, NORMOCEPHALIC - Eyes Eye Exam: EOMI, Normal appearance, PERRL - Respiratory Exam Respiratory Exam: Clear to Ausculation Bilateral, NORMAL BREATHING PATTERN - Cardiovascular Exam Cardiovascular Exam: Tachycardia, REGULAR RHYTHM, +S1, +S2 - GI/Abdominal Exam GI & Abdominal Exam: Soft, Normal Bowel Sounds. absent: Tenderness - Neurological Exam Neurological Exam: Alert, Awake - Extremities Exam Extremities Exam: Normal Capillary Refill, Normal Inspection Plan - Assessment of Findings&Treatment Plan Rapid response was called at 8:36 in 6T hallway by nurse Lieberman for "seizure like activity". Per nursing, pt was sitting in wheelchair going to US, then starting shaking. At arrival of attending and medical team, pt was on floor shaking, she was put on her side and a pillow placed under head. No loss of bowel/bladder function observed. During the period of shaking, pt's left arm was lifted over head and face, and when dropped, pt would move arm as to not hit her face. Pt had resistance when trying to open eyes for eye exam, pupils were equal and reactive to light. 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 Vitals were normal as recorded. Pt was not given ativan 2/2 to exam presenting like pseudo seizure. Pt placed back onto bed and brought to her room. Pt was then requesting ativan administration, and did not appear to have a post ictal phase nor present with any confusion following event. During the rapid, nurse Lieberman notifies medical team that immediately prior to this event, pt was seen sticking fingers down throat in attempt to induce vomiting.
--- NOTE | 2017-11-25 09:33 | CP.PCM.PN ---
Subjective - Date & Time of Evaluation Date of Evaluation: 11/25/17 Time of Evaluation: 09:17 - Subjective Subjective: PGY-1 Medicine Progress Note for Dr. King's service Patient seen and examined at bedside. As per nursing, patient continued to have episodes of pseudo-seizures with no post-ictal confusion or lethargy overnight. Prior to examination patient was comfortably asleep, however, when awoken patient started complaining of such severe abdominal pain that she would not allow an abdominal examination even ascultation. Patient reports chest pain, abd pain, shortness of breath, nausea, vomiting. As per nursing Luisana, prior to ultrasound procedure patient stated she needed to use bathroom however wanted privacy. The nurse stated that she should not drink water or try to induce vomiting as she was NPO and has been sticking her finger in her throat since yesterday. After she finished using the bathroom it was noted that she had water in her mouth and she was again trying to induce vomiting as per nursing. On transit to ultrasound with tech, patient began having pseudoseizures and a HOT MILL WORKER was called. No ativan was administered. During assessment of pseudoseizure, patient moved arm away from face, avoided light when shone in her eye, resisted eyelid opening all signs suggesting pseudoseizures. No post-ictal confusion or lethargy was noted. Patient was alert and oriented after episode and transferred back to her room. There she began having pseudoseizures and NS was pushed, however, we stated it was Ativan for patient to hear. Patient was not having a hypolgycemic episode as sugars were above 100. Patient prefers treatment with Ativan and requests it since she has been in hospital. Patient continues to scream, ask for Ativan, and induce vomiting if she does not get the treatment she wants. Objective - Vital Signs/Intake and Output Vital Signs (last 24 hours): Temp Pulse Resp BP Pulse Ox 97.3 F L 103 H 20 170/103 H 98 11/25/17 05:50 11/25/17 05:50 11/25/17 05:50 11/25/17 05:50 11/25/17 05:50 Intake and Output: 11/25/17 11/25/17 06:59 18:59 Intake Total 1000 Balance 1000 - Medications Medications: Current Medications Dextrose (Dextrose 50% Inj) 0 ml IV STAT PRN; Protocol PRN Reason: Hypoglycemia Protocol Dextrose (Glutose 15) 0 gm PO ONCE PRN; Protocol PRN Reason: Hypoglycemia Protocol Famotidine (Pepcid) 20 mg IVP DAILY [facility] Last Admin: 11/24/17 09:13 Dose: 20 mg Glucagon (Glucagen Diagnostic Kit) 0 mg IM STAT PRN; Protocol PRN Reason: Hypoglycemia Protocol Glucagon (Glucagen Diagnostic Kit) 0 mg IM STAT PRN; Protocol PRN Reason: Hypoglycemia Protocol Glucagon (Glucagen Diagnostic Kit) 1 mg IM STAT PRN; Protocol PRN Reason: Hypoglycemia Protocol Hydromorphone HCl (Dilaudid) 0.25 mg IVP Q8H PRN PRN Reason: Pain, moderate (4-7) Last Admin: 11/25/17 05:49 Dose: 0.25 mg Dextrose (Dextrose 5% In Water 1000 Ml) 1,000 mls @ 0 mls/hr IV .Q0M PRN; Protocol; Per Protocol PRN Reason: Hypoglycemia Protocol Potassium Chloride/Dextrose/Sod Cl (Potassium Chl 20 Meq In D5-1/2ns) 1,000 mls @ 125 mls/hr IV .Q8H [facility] Last Admin: 11/24/17 19:53 Dose: Not Given Insulin Aspart (Novolog) 0 unit SC ACHS [facility] PRN Reason: Protocol Last Admin: 11/25/17 07:40 Dose: Not Given Insulin Detemir (Levemir) 30 unit SC BIDAC [facility] Last Admin: 11/25/17 07:40 Dose: Not Given Metoclopramide HCl (Reglan) 10 mg IVP Q8H PRN PRN Reason: Nausea/Vomiting Last Admin: 11/25/17 05:25 Dose: 10 mg Nifedipine (Procardia Xl) 60 mg PO DAILY [facility] Last Admin: 11/24/17 11:01 Dose: 60 mg Ondansetron HCl (Zofran Inj) 4 mg IVP Q6H PRN PRN Reason: Nausea/Vomiting Last Admin: 11/24/17 21:57 Dose: 4 mg - Labs Labs: 11/24/17 17:16 11/24/17 17:16 - Constitutional Appears: Non-toxic, Agitated - Head Exam Head Exam: NORMAL INSPECTION, NORMOCEPHALIC - Eye Exam Eye Exam: EOMI, Normal appearance. absent: Nystagmus, Scleral icterus - Respiratory Exam Respiratory Exam: Clear to Ausculation Bilateral, NORMAL BREATHING PATTERN. absent: Rales, Rhonchi, Wheezes - Cardiovascular Exam Cardiovascular Exam: Tachycardia, REGULAR RHYTHM, +S1, +S2. absent: JVD, Murmur - GI/Abdominal Exam Additional comments: unable to examine; patient states pain is to much even for ascultation - Extremities Exam Extremities Exam: Normal Inspection. absent: Calf Tenderness, Pedal Edema - Back Exam Back Exam: NORMAL INSPECTION. absent: CVA tenderness (L), CVA tenderness (R) - Neurological Exam Neurological Exam: Alert, Awake, Oriented x3 - Psychiatric Exam Psychiatric exam: Agitated, Anxious - Skin Skin Exam: Intact, Normal Color Assessment and Plan - Assessment and Plan (Free Text) Assessment: Patient is a 27 y.o female wiht PMH of HTN, CKD, Anemia, Psuedoseziurse, anxiety , and depression comes to the hospital for evaluation of intractable vomiting a/ w abdominal pain; has worsening renal function; nephrology consulted Plan: Diabetes Meillitus Patient NPO; Blood sugars 159 today; ISS-high dose; Levemir 30 units sc BID [facility] Accuchecks; Hypoglycemic protocol Hypertensive Urgency 195/120- Labetolol 10g IV stat x1 dose; Will recheck blood pressure Patient continues to vomit not allowing her to get her nefidipine medication Nifedipine 60mg po daily Acute Renal Failure on CKD stage 3 BUN/CR: 52/5.4; Patient likely volume depleted in setting of continued vomiting even with elevated blood pressures Pre renal etiology likely even with elevated blood pressures Nephrology consulted: Dr. Nieves- IVF NS 500ml bolus; 1/2 NS @150mls/hr PICC line inserted 11/25 UA: 3+ glucose, 3+ protein, 1+ blood, WBC 7, Urine bacteria moderate Urine Cr 140.4; Ur sodium <5; Abdominal Pain with vomiting Reglan 10mg IVP q8h Zofran 3mg IVP q6 prn Dilaudid 0.25mg IV q8 prn Patient has been seen to be continue inducing vomiting by putting finger down throat by nursing staff [facility] consult- Dr. New- recommendations appreciated Prophylaxis Pepcid 20mg IVP daily Patient seen today at bedside. Soon after HOT MILL WORKER was called with patient having pseudoseizures in transit for ultrasound. Patient was evaluated as in subjective part of note and transferred back to bed where she had another episode of pseudoseizures
[2017-11-25] MEDS: NIFEdipine 60 mg ER Tab PO SCH (09:34)
[2017-11-25 09:35] LABS: BASO % 0.1 % (0.0-2.0); HEMOGLOBIN 11.3 g/dL (11.0-16.0); LYMPH # 1.4 K/uL (1.0-4.3); LYMPH % 5.8 % (20.0-40.0); MEAN CELL VOLUME 86.8 fL (81.0-99.0); MEAN CORPUSCULAR HEMOGLOBIN 27.7 pg (27.0-31.0); MEAN CORPUSCULAR HGB CONC 31.9 g/dL (33.0-37.0); MEAN PLATELET VOLUME 10.7 fL (7.2-11.7); MONO # 1.1 K/uL (0.0-0.8); MONO % 4.4 % (0.0-10.0); NEUT # 22.4 K/uL (1.8-7.0); NEUT % 89.7 % (50.0-75.0); PLATELET COUNT 316 K/uL (130-400); RBC 4.07 Mil/uL (3.80-5.20); RED CELL DISTRIBUTION WIDTH 14.2 % (11.5-14.5)
[2017-11-25 09:57] LABS: ALB/GLOB RATIO 1.1 (1.0-2.1); ALBUMIN 3.5 g/dL (3.5-5.0); CALCIUM 9.1 mg/dl (8.6-10.4)
[2017-11-25 10:18] LABS: SQUAMOUS EPITHIAL 43 /hpf (0-5); URINE BACTERIA MOD (<OCC); URINE BILIRUBIN NEGATIVE (NEGATIVE); URINE BLOOD 1+ (NEGATIVE); URINE CLARITY Hazy (Clear); URINE COLOR Yellow (YELLOW); URINE GLUCOSE (UA) 3+ mg/dL (Normal); URINE LEUKOCYTE ESTERASE NEG Leu/uL (Negative); URINE PROTEIN 3+ mg/dL (NEGATIVE); URINE UROBILINOGEN NORMAL mg/dL (0.2-1.0)
[2017-11-25 10:19] LABS: CREATININE, RANDOM URINE 140.4 mg/dL
[2017-11-25 10:56] LABS: BANDS 1 % (0-2); LYMPHOCYTE 5 % (20-40); MONOCYTE 4 % (0-10); NEUTROPHIL 90 % (50-75); PLATELET ESTIMATE NORMAL (NORMAL); TOTAL CELLS COUNTED 100
[2017-11-25 10:57] LABS: OVALOCYTES SLIGHT; POIKILOCYTOSIS SLIGHT
[2017-11-25] MEDS ORDERED: Sodium Chloride 0.45% 1,000 ML IV SCH (11:00)
[2017-11-25] MEDS ORDERED: Sodium Chloride 0.9% 500 ML IV ONE (12:54)
[2017-11-25] MEDS: Sodium Chloride 0.45% 1,000 ML IV SCH ×2 (13:41→20:14)
[2017-11-25] MEDS: DiphenhydrAMINE 50 mg/ml Inj IVP PRN ×2 (14:03→22:04)
[2017-11-25] MEDS ORDERED: Labetalol 25mg/5ml Syringe IVP STA (14:32)
[2017-11-25 18:00] LABS: CALCIUM 8.5 mg/dl (8.6-10.4)
[2017-11-26] MEDS: Sodium Chloride 0.45% 1,000 ML IV SCH ×4 (02:58→23:05)
--- NOTE | 2017-11-26 05:11 | CP.PCM.PN ---
Subjective - Date & Time of Evaluation Date of Evaluation: 11/26/17 Time of Evaluation: 06:40 - Subjective Subjective: Nephrology Progress Note for Tristan Weinberg PGY3 Patient seen and examined at bedside. As per nursing staff, patient slept through most of the night, but kept going to the bathroom to vomit. Her blood glucose was 50 this am and received 1amp of D50. Upon examination this morning patient was spitting up clear mucus in a bucket. She reports having nausea and epigastric abdominal pain. She denies diarrhea, fever/chills, chest pain, shortness of breath, numbness/tingling, dysuria or hematuria. Objective - Vital Signs/Intake and Output Vital Signs (last 24 hours): Temp Pulse Resp BP Pulse Ox 98.1 F 124 H 20 129/69 97 11/25/17 15:56 11/26/17 01:33 11/25/17 15:56 11/25/17 15:56 11/25/17 15:56 Intake and Output: 11/25/17 11/26/17 18:59 06:59 Intake Total 1550 Output Total 3 Balance 1547 - Medications Medications: Current Medications Dextrose (Dextrose 50% Inj) 0 ml IV STAT PRN; Protocol PRN Reason: Hypoglycemia Protocol Dextrose (Glutose 15) 0 gm PO ONCE PRN; Protocol PRN Reason: Hypoglycemia Protocol Diphenhydramine HCl (Benadryl) 25 mg IVP Q8H PRN PRN Reason: Itching / Pruritus Last Admin: 11/25/17 22:04 Dose: 25 mg Famotidine (Pepcid) 20 mg IVP DAILY [facility] Last Admin: 11/25/17 09:41 Dose: 20 mg Glucagon (Glucagen Diagnostic Kit) 0 mg IM STAT PRN; Protocol PRN Reason: Hypoglycemia Protocol Glucagon (Glucagen Diagnostic Kit) 0 mg IM STAT PRN; Protocol PRN Reason: Hypoglycemia Protocol Glucagon (Glucagen Diagnostic Kit) 1 mg IM STAT PRN; Protocol PRN Reason: Hypoglycemia Protocol Hydromorphone HCl (Dilaudid) 0.25 mg IVP Q8H PRN PRN Reason: Pain, moderate (4-7) Last Admin: 11/25/17 22:05 Dose: 0.25 mg Dextrose (Dextrose 5% In Water 1000 Ml) 1,000 mls @ 0 mls/hr IV .Q0M PRN; Protocol; Per Protocol PRN Reason: Hypoglycemia Protocol Sodium Chloride (Sodium Chloride 0.45%) 1,000 mls @ 150 mls/hr IV .Q6H40M [facility] Last Admin: 11/26/17 02:58 Dose: 150 mls/hr Insulin Aspart (Novolog) 0 unit SC ACHS [facility] PRN Reason: Protocol Last Admin: 11/25/17 22:38 Dose: Not Given Insulin Detemir (Levemir) 30 unit SC BIDAC [facility] Last Admin: 11/25/17 18:16 Dose: 30 units Metoclopramide HCl (Reglan) 10 mg IVP Q8H PRN PRN Reason: Nausea/Vomiting Last Admin: 11/26/17 02:56 Dose: 10 mg Nifedipine (Procardia Xl) 60 mg PO DAILY [facility] Last Admin: 11/25/17 09:34 Dose: Not Given Ondansetron HCl (Zofran Inj) 4 mg IVP Q6H PRN PRN Reason: Nausea/Vomiting Last Admin: 11/24/17 21:57 Dose: 4 mg - Labs Labs: 11/25/17 09:24 11/25/17 17:27 - Constitutional Appears: No Acute Distress, Unkempt - Head Exam Head Exam: ATRAUMATIC, NORMAL INSPECTION, NORMOCEPHALIC - Eye Exam Eye Exam: Normal appearance, PERRL Pupil Exam: NORMAL ACCOMODATION - ENT Exam ENT Exam: Mucous Membranes Dry - Respiratory Exam Respiratory Exam: Clear to Ausculation Bilateral, NORMAL BREATHING PATTERN. absent: Rales, Rhonchi, Wheezes - Cardiovascular Exam Cardiovascular Exam: Tachycardia, REGULAR RHYTHM, +S1, +S2. absent: Gallop, Rubs, Murmur - GI/Abdominal Exam GI & Abdominal Exam: Soft, Tenderness (epigastric ), Hypoactive Bowel Sounds. absent: Rigid, Mass, Rebound - Extremities Exam Extremities Exam: Normal Inspection. absent: Calf Tenderness, Pedal Edema - Neurological Exam Neurological Exam: Alert, Awake, CN II-XII Intact - Skin Skin Exam: Dry, Intact, Warm Assessment and Plan - Assessment and Plan (Free Text) Assessment: This is a 27yo female with past medical history of CKD IIIb secondary to diabetic nephropathy and nephrotic syndrome diagnosed on biopsy who was admitted for 1. GABRIELA on CKD IIIb (improving) - can be secondary to pre-renal etiology with underlying uncontrolled DM and nephrotic syndrome - FeNa 0.1% indicating pre-renal etiology - Cr improving after fluid challenge with 500cc bolus and increasing IV fluids - Continue 1/2NS@150 - Monitor I&O - Renal US pending- pt refusing at this time 2. Hypernatremia (resolved) - most likely secondary to dehydration from poor PO intake - Continue IV hydration 3. HTN - Continue Procardia - Can use PRN labetolol for SBP >180 4. Gastroparesis - Continue Reglan - discourage patient from inducing vomiting 5. IDDM - pt NPO - had insulin pump at home but was using intermittently - Insulin sliding scale 6. SIRS - leukocytosis trending down - serum lactate normal - Tachycardia can be secondary to dehydration - U/A + for bacteria, but many epithelial cells - Urine culture and blood culture pending Case seen, discussed and reviewed with Dr. Nieves. Tristan Pérez PGY3
[2017-11-26] MEDS: DiphenhydrAMINE 50 mg/ml Inj IVP PRN ×3 (06:04→22:49)
[2017-11-26] MEDS: HYDROmorphone 0.5 mg/0.5 ml ISec IVP PRN ×3 (06:04→22:49)
[2017-11-26] MEDS: Dextrose 50% SYRINGE Inj (50 ml) IV PRN (06:22)
[2017-11-26] MEDS: (Novolog) Insulin Aspart, Recombinant 100 u/ml 10 ml vial SC SCH ×4 (08:11→22:36)
[2017-11-26] MEDS: Insulin Detemir 100 units/ml Vial (Levemir) SC SCH ×2 (08:30→18:43)
[2017-11-26] MEDS ORDERED: Labetalol 25mg/5ml Syringe IVP STA (10:40)
[2017-11-26] MEDS: NIFEdipine 60 mg ER Tab PO SCH (10:52)
[2017-11-26 11:15] LABS: BASO % 0.1 % (0.0-2.0); HEMOGLOBIN 11.9 g/dL (11.0-16.0); LYMPH # 1.1 K/uL (1.0-4.3); LYMPH % 6.5 % (20.0-40.0); MEAN CELL VOLUME 86.2 fL (81.0-99.0); MEAN CORPUSCULAR HEMOGLOBIN 28.3 pg (27.0-31.0); MEAN CORPUSCULAR HGB CONC 32.8 g/dL (33.0-37.0); MEAN PLATELET VOLUME 10.3 fL (7.2-11.7); MONO # 0.7 K/uL (0.0-0.8); NEUT # 14.6 K/uL (1.8-7.0); NEUT % 89.4 % (50.0-75.0); PLATELET COUNT 299 K/uL (130-400); RBC 4.22 Mil/uL (3.80-5.20); RED CELL DISTRIBUTION WIDTH 14.2 % (11.5-14.5); WHITE BLOOD COUNT 16.3 K/uL (4.8-10.8)
[2017-11-26 11:27] LABS: ALB/GLOB RATIO 1.1 (1.0-2.1); ALBUMIN 3.4 g/dL (3.5-5.0); CALCIUM 8.4 mg/dl (8.6-10.4)
[2017-11-26 11:43] LABS: LYMPHOCYTE 5 % (20-40); MONOCYTE 3 % (0-10); NEUTROPHIL 92 % (50-75); PLATELET ESTIMATE NORMAL (NORMAL); TOTAL CELLS COUNTED 100
[2017-11-26] MEDS ORDERED: Labetalol 5 mg/ml Inj 20ML IV STA (13:45)
--- NOTE | 2017-11-26 14:37 | CP.PCM.PN ---
Subjective - Date & Time of Evaluation Date of Evaluation: 11/26/17 Time of Evaluation: 14:34 - Subjective Subjective: PGY-1 Medicine Progress Note for Dr. King's service Patient seen and examined at bedside. Patient continues to experience abdominal pain with intermittent episodes of nausea/vomiting. Patient had a Patient's mother was at bedside. Patient is urinating with no urinary symptoms. Patient continues to have clear nonbloody emesis but very minimal amounts. Patient denies chest pain, sob, constipation or diarrhea, or dysuria. Objective - Vital Signs/Intake and Output Vital Signs (last 24 hours): Temp Pulse Resp BP Pulse Ox 98.1 F 111 H 18 199/134 H 97 11/25/17 15:56 11/26/17 14:12 11/26/17 14:12 11/26/17 14:12 11/26/17 14:12 Intake and Output: 11/26/17 11/26/17 06:59 18:59 Intake Total 1200 Balance 1200 - Medications Medications: Current Medications Dextrose (Dextrose 50% Inj) 0 ml IV STAT PRN; Protocol PRN Reason: Hypoglycemia Protocol Last Admin: 11/26/17 06:22 Dose: 50 ml Dextrose (Glutose 15) 0 gm PO ONCE PRN; Protocol PRN Reason: Hypoglycemia Protocol Diphenhydramine HCl (Benadryl) 25 mg IVP Q8H PRN PRN Reason: Itching / Pruritus Last Admin: 11/26/17 14:21 Dose: 25 mg Famotidine (Pepcid) 20 mg IVP DAILY [facility] Last Admin: 11/26/17 10:40 Dose: 20 mg Glucagon (Glucagen Diagnostic Kit) 0 mg IM STAT PRN; Protocol PRN Reason: Hypoglycemia Protocol Glucagon (Glucagen Diagnostic Kit) 0 mg IM STAT PRN; Protocol PRN Reason: Hypoglycemia Protocol Glucagon (Glucagen Diagnostic Kit) 1 mg IM STAT PRN; Protocol PRN Reason: Hypoglycemia Protocol Hydromorphone HCl (Dilaudid) 0.25 mg IVP Q8H PRN PRN Reason: Pain, moderate (4-7) Last Admin: 11/26/17 06:04 Dose: 0.25 mg Dextrose (Dextrose 5% In Water 1000 Ml) 1,000 mls @ 0 mls/hr IV .Q0M PRN; Protocol; Per Protocol PRN Reason: Hypoglycemia Protocol Sodium Chloride (Sodium Chloride 0.45%) 1,000 mls @ 150 mls/hr IV .Q6H40M [facility] Last Admin: 11/26/17 08:47 Dose: Not Given Insulin Aspart (Novolog) 0 unit SC ACHS [facility] PRN Reason: Protocol Last Admin: 11/26/17 11:58 Dose: Not Given Insulin Detemir (Levemir) 30 unit SC BIDAC [facility] Last Admin: 11/26/17 08:30 Dose: Not Given Metoclopramide HCl (Reglan) 10 mg IVP Q8H PRN PRN Reason: Nausea/Vomiting Last Admin: 11/26/17 10:58 Dose: 10 mg Nifedipine (Procardia Xl) 60 mg PO DAILY [facility] Last Admin: 11/26/17 10:52 Dose: Not Given Ondansetron HCl (Zofran Inj) 4 mg IVP Q6H PRN PRN Reason: Nausea/Vomiting Last Admin: 11/24/17 21:57 Dose: 4 mg - Labs Labs: 11/26/17 10:56 11/26/17 10:56 - Constitutional Appears: Non-toxic, No Acute Distress - Head Exam Head Exam: NORMAL INSPECTION, NORMOCEPHALIC - Eye Exam Eye Exam: EOMI, Normal appearance. absent: Scleral icterus - Respiratory Exam Respiratory Exam: Clear to Ausculation Bilateral, NORMAL BREATHING PATTERN. absent: Decreased Breath Sounds, Rales, Rhonchi, Wheezes - Cardiovascular Exam Cardiovascular Exam: Tachycardia, REGULAR RHYTHM, +S1, +S2. absent: Murmur - GI/Abdominal Exam Additional comments: unable to examine as patient refused palpation or auscultation - Extremities Exam Extremities Exam: Normal Inspection. absent: Calf Tenderness, Pedal Edema - Back Exam Back Exam: NORMAL INSPECTION. absent: CVA tenderness (L), CVA tenderness (R) - Neurological Exam Neurological Exam: Alert, Awake, Oriented x3 - Skin Skin Exam: Intact, Normal Color Assessment and Plan - Assessment and Plan (Free Text) Assessment: Patient is a 27 y.o female wiht PMH of HTN, CKD, Anemia, Psuedoseziurse, anxiety , and depression comes to the hospital for evaluation of intractable vomiting a/ w abdominal pain; has worsening renal function; nephrology consulted Plan: Diabetes Meillitus Patient NPO; Blood sugars 138 today; ISS-high dose; Levemir 30 units sc BID [facility] Accuchecks; Hypoglycemic protocol Hypertensive Urgency 204/134- Labetolol 10g IV stat x1 dose; Repeat blood pressure measurement 199/134; Labetolol 20g IV stat x 1 dose Repeat blood presusre measurement checked twice as per nursin/104 Labetolol IV 20g q1 PRN (SBP>180) Nifedipine 60mg po daily- not given as patient continues to vomit Acute Renal Failure on CKD stage 3 BUN/CR: 39/4.0; Cr trending down Pre renal etiology likely even with elevated blood pressures Nephrology consulted: Dr. Nieves- IVF NS 500ml bolus; 1/2 NS @150mls/hr Responding appropriately to fluid challenge; Continue as per Nephro; PICC line inserted 11/25 UA: 3+ glucose, 3+ protein, 1+ blood, WBC 7, Urine bacteria moderate Urine Cr 140.4; Ur sodium <5; Abdominal Pain with vomiting Reglan 10mg IVP q8h Zofran 3mg IVP q6 prn Dilaudid 0.25mg IV q8 prn Patient has been seen to be continue inducing vomiting by putting finger down throat by nursing staff [facility] Psych consult- Dr. New- recommendations appreciated Prophylaxis Pepcid 20mg IVP daily
[2017-11-26 16:03] VITALS: RESP 20
[2017-11-26] MEDS: Labetalol 5mg/ml (4ml) IV PRN ×2 (18:43→20:56)
--- NOTE | 2017-11-27 05:14 | CP.PCM.PN ---
Subjective - Date & Time of Evaluation Date of Evaluation: 11/27/17 Time of Evaluation: 07:00 - Subjective Subjective: Nephrology Progress Note for Tristan Weinberg PGY3 Patient seen and examined at bedside. There were no acute overnight events as per nursing staff. Patient reports feeling thirst this AM. She states she has some nausea. She denies chest pain, shortness of breath, fever/chills, dysuria/ hematuria, numbness/tingling. Objective - Vital Signs/Intake and Output Vital Signs (last 24 hours): Temp Pulse Resp BP Pulse Ox 99.5 F 100 H 20 157/93 H 95 11/26/17 23:10 11/26/17 23:10 11/26/17 23:10 11/26/17 23:10 11/26/17 23:10 Intake and Output: 11/26/17 11/27/17 18:59 06:59 Intake Total 1200 Balance 1200 - Medications Medications: Current Medications Dextrose (Dextrose 50% Inj) 0 ml IV STAT PRN; Protocol PRN Reason: Hypoglycemia Protocol Last Admin: 11/26/17 06:22 Dose: 50 ml Dextrose (Glutose 15) 0 gm PO ONCE PRN; Protocol PRN Reason: Hypoglycemia Protocol Diphenhydramine HCl (Benadryl) 25 mg IVP Q8H PRN PRN Reason: Itching / Pruritus Last Admin: 11/26/17 22:49 Dose: 25 mg Famotidine (Pepcid) 20 mg IVP DAILY [facility] Last Admin: 11/26/17 10:40 Dose: 20 mg Glucagon (Glucagen Diagnostic Kit) 0 mg IM STAT PRN; Protocol PRN Reason: Hypoglycemia Protocol Glucagon (Glucagen Diagnostic Kit) 0 mg IM STAT PRN; Protocol PRN Reason: Hypoglycemia Protocol Glucagon (Glucagen Diagnostic Kit) 1 mg IM STAT PRN; Protocol PRN Reason: Hypoglycemia Protocol Hydromorphone HCl (Dilaudid) 0.25 mg IVP Q8H PRN PRN Reason: Pain, moderate (4-7) Last Admin: 11/26/17 22:49 Dose: 0.25 mg Dextrose (Dextrose 5% In Water 1000 Ml) 1,000 mls @ 0 mls/hr IV .Q0M PRN; Protocol; Per Protocol PRN Reason: Hypoglycemia Protocol Sodium Chloride (Sodium Chloride 0.45%) 1,000 mls @ 60 mls/hr IV .[id number] [facility] Last Admin: 11/26/17 21:09 Dose: 60 mls/hr Insulin Aspart (Novolog) 0 unit SC ACHS [facility] PRN Reason: Protocol Last Admin: 11/26/17 22:36 Dose: Not Given Insulin Detemir (Levemir) 30 unit SC BIDAC [facility] Last Admin: 11/26/17 18:43 Dose: 30 units Labetalol HCl (Trandate) 20 mg IV Q1H PRN PRN Reason: Systolic Blood Pressure >180 Last Admin: 11/26/17 20:56 Dose: 20 mg Metoclopramide HCl (Reglan) 10 mg IVP Q8H PRN PRN Reason: Nausea/Vomiting Last Admin: 11/26/17 19:02 Dose: 10 mg Nifedipine (Procardia Xl) 60 mg PO DAILY [facility] Last Admin: 11/26/17 10:52 Dose: Not Given Ondansetron HCl (Zofran Inj) 4 mg IVP Q6H PRN PRN Reason: Nausea/Vomiting Last Admin: 11/24/17 21:57 Dose: 4 mg - Labs Labs: 11/26/17 10:56 11/26/17 10:56 - Constitutional Appears: No Acute Distress, Unkempt - Head Exam Head Exam: ATRAUMATIC, NORMAL INSPECTION, NORMOCEPHALIC - Eye Exam Eye Exam: Normal appearance, PERRL Pupil Exam: NORMAL ACCOMODATION - ENT Exam ENT Exam: Mucous Membranes Dry - Respiratory Exam Respiratory Exam: Clear to Ausculation Bilateral, NORMAL BREATHING PATTERN. absent: Rales, Rhonchi, Wheezes - Cardiovascular Exam Cardiovascular Exam: Tachycardia, REGULAR RHYTHM, +S1, +S2. absent: Gallop, Rubs, Murmur - GI/Abdominal Exam GI & Abdominal Exam: Soft, Tenderness (epigastric ), Normal Bowel Sounds. absent: Rigid, Mass, Rebound - Extremities Exam Extremities Exam: Normal Inspection. absent: Calf Tenderness, Pedal Edema - Neurological Exam Neurological Exam: Alert, Awake, CN II-XII Intact - Skin Skin Exam: Dry, Warm Assessment and Plan - Assessment and Plan (Free Text) Assessment: This is a 27yo female with past medical history of CKD IIIb secondary to diabetic nephropathy and nephrotic syndrome diagnosed on biopsy who was admitted for 1. GABRIELA on CKD IIIb (improving) - can be secondary to pre-renal etiology with underlying uncontrolled DM and nephrotic syndrome - FeNa 0.1% indicating pre-renal etiology - Cr improving after fluid challenge - will give patient more IV fluids- still volume depleted - 1/2NS@60 - Monitor I&O - Renal US pending- pt refusing at this time 2. HTN - Continue Procardia and Clonidine patch - Can use PRN labetolol for SBP >180 4. Gastroparesis - Continue Reglan - discourage patient from inducing vomiting 5. IDDM - pt NPO - had insulin pump at home but was using intermittently - Insulin sliding scale - Hypoglycemic from poor PO intake - D50 prn 6. SIRS - leukocytosis trending down - serum lactate normal - Tachycardia can be secondary to dehydration - Urine culture and blood culture negative Case seen, discussed and reviewed with Dr. Nieves. Tristan Pérez PGY3
[2017-11-27 05:30] LABS: BASO % 0.3 % (0.0-2.0); HEMOGLOBIN 11.9 g/dL (11.0-16.0); LYMPH # 2.9 K/uL (1.0-4.3); LYMPH % 23.8 % (20.0-40.0); MEAN CELL VOLUME 85.4 fL (81.0-99.0); MEAN CORPUSCULAR HEMOGLOBIN 28.1 pg (27.0-31.0); MEAN CORPUSCULAR HGB CONC 32.9 g/dL (33.0-37.0); MEAN PLATELET VOLUME 9.7 fL (7.2-11.7); MONO % 8.6 % (0.0-10.0); NEUT # 8.1 K/uL (1.8-7.0); NEUT % 67.3 % (50.0-75.0); RBC 4.23 Mil/uL (3.80-5.20); RED CELL DISTRIBUTION WIDTH 13.8 % (11.5-14.5); WHITE BLOOD COUNT 12.1 K/uL (4.8-10.8)
[2017-11-27 05:48] LABS: CALCIUM 8.3 mg/dl (8.6-10.4)
[2017-11-27] MEDS ORDERED: Dextrose 50% SYRINGE Inj (50 ml) ONE (05:53)
[2017-11-27] MEDS: Dextrose 50% SYRINGE Inj (50 ml) IV PRN (05:55)
[2017-11-27] MEDS: DiphenhydrAMINE 50 mg/ml Inj IVP PRN ×2 (06:27→16:24)
[2017-11-27] MEDS: HYDROmorphone 0.5 mg/0.5 ml ISec IVP PRN ×2 (06:28→16:24)
[2017-11-27] MEDS: Labetalol 5mg/ml (4ml) IV PRN ×3 (06:57→16:26)
[2017-11-27] MEDS: Insulin Detemir 100 units/ml Vial (Levemir) SC SCH ×2 (07:55→17:30)
[2017-11-27] MEDS: (Novolog) Insulin Aspart, Recombinant 100 u/ml 10 ml vial SC SCH ×3 (07:55→17:30)
[2017-11-27] MEDS: NIFEdipine 60 mg ER Tab PO SCH (11:03)
[2017-11-27] MEDS ORDERED: Sodium Chloride 0.9% 1,000 ML IV SCH (13:00)
[2017-11-27] MEDS: Sodium Chloride 0.45% 1,000 ML IV SCH ×2 (13:37→22:44)
--- NOTE | 2017-11-27 16:06 | CP.PCM.PN ---
Subjective - Date & Time of Evaluation Date of Evaluation: 11/27/17 Time of Evaluation: 16:02 - Subjective Subjective: PGY-1 Medicine Progress Note for Dr. King's service Patient seen and examined at bedside. As per nursing, patient blood sugars in the AM were in the 20s. Patient was repleted to 140 and now currently in the 70s. Patient continues to complain of abdominal pain with episodes of nausea and vomiting. Patient admitted to me that she has continued to put her finger down her throat to induce vomiting. Patient denies chest pain, sob, constipation , diarrhea, dysuria, change in urinary habits, hematemsis, dizziness, vision changes, headaches. Objective - Vital Signs/Intake and Output Vital Signs (last 24 hours): Temp Pulse Resp BP Pulse Ox 98.3 F 105 H 20 218/142 H 98 11/27/17 15:53 11/27/17 15:53 11/27/17 15:53 11/27/17 15:53 11/27/17 15:53 Intake and Output: 11/27/17 11/27/17 06:59 18:59 Intake Total 420 Balance 420 - Medications Medications: Current Medications Clonidine HCl (Catapres Tts1 0.1 Mg/24 Hr) 1 patch TD Q7D@1000 JOSSUE Last Admin: 11/27/17 11:30 Dose: 1 patch Dextrose (Dextrose 50% Inj) 0 ml IV STAT PRN; Protocol PRN Reason: Hypoglycemia Protocol Last Admin: 11/27/17 05:55 Dose: 50 ml Dextrose (Glutose 15) 0 gm PO ONCE PRN; Protocol PRN Reason: Hypoglycemia Protocol Diphenhydramine HCl (Benadryl) 25 mg IVP Q8H PRN PRN Reason: Itching / Pruritus Last Admin: 11/27/17 06:27 Dose: 25 mg Famotidine (Pepcid) 20 mg IVP DAILY [facility] Last Admin: 11/27/17 11:04 Dose: 20 mg Glucagon (Glucagen Diagnostic Kit) 0 mg IM STAT PRN; Protocol PRN Reason: Hypoglycemia Protocol Glucagon (Glucagen Diagnostic Kit) 0 mg IM STAT PRN; Protocol PRN Reason: Hypoglycemia Protocol Glucagon (Glucagen Diagnostic Kit) 1 mg IM STAT PRN; Protocol PRN Reason: Hypoglycemia Protocol Hydromorphone HCl (Dilaudid) 0.25 mg IVP Q8H PRN PRN Reason: Pain, moderate (4-7) Last Admin: 11/27/17 06:28 Dose: 0.25 mg Dextrose (Dextrose 5% In Water 1000 Ml) 1,000 mls @ 0 mls/hr IV .Q0M PRN; Protocol; Per Protocol PRN Reason: Hypoglycemia Protocol Sodium Chloride (Sodium Chloride 0.45%) 1,000 mls @ 60 mls/hr IV .[id number] [facility] Last Admin: 11/27/17 13:37 Dose: Not Given Sodium Chloride (Sodium Chloride 0.9%) 1,000 mls @ 250 mls/hr IV .Q4H [facility] Stop: 11/27/17 16:59 Last Admin: 11/27/17 13:36 Dose: 250 mls/hr Insulin Aspart (Novolog) 0 unit SC ACHS [facility] PRN Reason: Protocol Last Admin: 11/27/17 11:33 Dose: Not Given Insulin Detemir (Levemir) 30 unit SC BIDAC [facility] Last Admin: 11/27/17 07:55 Dose: Not Given Labetalol HCl (Trandate) 20 mg IV Q1H PRN PRN Reason: Systolic Blood Pressure >180 Last Admin: 11/27/17 08:55 Dose: 20 mg Metoclopramide HCl (Reglan) 10 mg IVP Q8H PRN PRN Reason: Nausea/Vomiting Last Admin: 11/26/17 19:02 Dose: 10 mg Nifedipine (Procardia Xl) 60 mg PO DAILY [facility] Last Admin: 11/27/17 11:03 Dose: Not Given Ondansetron HCl (Zofran Inj) 4 mg IVP Q6H PRN PRN Reason: Nausea/Vomiting Last Admin: 11/27/17 06:57 Dose: 4 mg - Labs Labs: 11/27/17 05:26 11/27/17 05:26 - Constitutional Appears: Non-toxic, No Acute Distress - Head Exam Head Exam: NORMAL INSPECTION, NORMOCEPHALIC - Eye Exam Eye Exam: EOMI, Normal appearance. absent: Nystagmus, Scleral icterus - Respiratory Exam Respiratory Exam: Clear to Ausculation Bilateral, NORMAL BREATHING PATTERN. absent: Rales, Rhonchi, Wheezes, Respiratory Distress - Cardiovascular Exam Cardiovascular Exam: Tachycardia, REGULAR RHYTHM, +S1, +S2 - GI/Abdominal Exam GI & Abdominal Exam: Soft, Tenderness, Normal Bowel Sounds. absent: Firm, Guarding, Rigid - Extremities Exam Extremities Exam: Normal Inspection. absent: Calf Tenderness, Pedal Edema - Neurological Exam Neurological Exam: Alert, Awake, Oriented x3. absent: Altered - Psychiatric Exam Psychiatric exam: Anxious, Normal Affect - Skin Skin Exam: Intact, Normal Color Assessment and Plan - Assessment and Plan (Free Text) Assessment: Patient is a 27 y.o female wiht PMH of HTN, CKD, Anemia, Psuedoseziurse, anxiety , and depression comes to the hospital for evaluation of intractable vomiting a/ w abdominal pain; has worsening renal function; nephrology consulted Plan: Diabetes Meillitus Patient NPO; Blood sugars 70 today; ISS-high dose; Levemir 30 units sc BID jossue Accuchecks; Hypoglycemic protocol Hypertensive Urgency BP-218/142 Labetolol IV 20g q1 PRN (SBP>180) Clonidine .1mg patch q7d Nifedipine 60mg po daily- not given as patient continues to vomit Acute Renal Failure on CKD stage 3 BUN/CR: 41/4.0; Cr trending down Pre renal etiology likely even with elevated blood pressures Nephrology consulted: Dr. Nieves- Responding appropriately to fluid challenge; Continue as per Nephro: NS 250mls/ hr PICC line inserted 11/25 UA: 3+ glucose, 3+ protein, 1+ blood, WBC 7, Urine bacteria moderate Urine Cr 140.4; Ur sodium <5; Abdominal Pain with vomiting Reglan 10mg IVP q8h Zofran 3mg IVP q6 prn Dilaudid 0.25mg IV q8 prn Patient has been seen to be continue inducing vomiting by putting finger down throat by nursing staff [facility] Psych consult- Dr. New- patient labs must be stable before [facility] eval Prophylaxis Pepcid 20mg IVP daily
[2017-11-28] MEDS: HYDROmorphone 0.5 mg/0.5 ml ISec IVP PRN ×3 (00:17→20:42)
[2017-11-28] MEDS: DiphenhydrAMINE 50 mg/ml Inj IVP PRN ×3 (00:17→20:42)
[2017-11-28 05:40] LABS: BASO % 0.3 % (0.0-2.0); HEMOGLOBIN 11.9 g/dL (11.0-16.0); LYMPH # 1.3 K/uL (1.0-4.3); LYMPH % 10.9 % (20.0-40.0); MEAN CELL VOLUME 86.5 fL (81.0-99.0); MEAN CORPUSCULAR HEMOGLOBIN 27.7 pg (27.0-31.0); MEAN PLATELET VOLUME 10.1 fL (7.2-11.7); MONO # 0.7 K/uL (0.0-0.8); MONO % 6.5 % (0.0-10.0); NEUT # 9.5 K/uL (1.8-7.0); NEUT % 82.3 % (50.0-75.0); RBC 4.3 Mil/uL (3.80-5.20); RED CELL DISTRIBUTION WIDTH 13.9 % (11.5-14.5); WHITE BLOOD COUNT 11.5 K/uL (4.8-10.8)
[2017-11-28 06:07] LABS: ALBUMIN 2.8 g/dL (3.5-5.0); CALCIUM 8.1 mg/dl (8.6-10.4)
[2017-11-28] MEDS: Sodium Chloride 0.45% 1,000 ML IV SCH ×3 (06:14→23:06)
[2017-11-28] MEDS: Insulin Detemir 100 units/ml Vial (Levemir) SC SCH ×2 (07:59→17:45)
[2017-11-28] MEDS: (Novolog) Insulin Aspart, Recombinant 100 u/ml 10 ml vial SC SCH ×4 (09:17→21:24)
--- NOTE | 2017-11-28 10:01 | CP.PCM.PN ---
Subjective - Date & Time of Evaluation Date of Evaluation: 11/28/17 Time of Evaluation: 09:58 - Subjective Subjective: PGY-1 Medicine Progress Note for Dr. King's service Patient seen and examined at bedside. Patient continues to have episodes of nausea/vomiting and weakness. Patient reports continued palpitations. Patient admits to abdominal pain and chest pain but likely from continued vomiting. Patient still remains with elevated blood pressure and difficult to control blood sugars due to decreased PO intake. Patient denies headaches, dizziness, sob, diarrhea, constipation, dysuria, fevers, and chills. Objective - Vital Signs/Intake and Output Vital Signs (last 24 hours): Temp Pulse Resp BP Pulse Ox 98.0 F 118 H 20 170/95 H 99 11/28/17 07:30 11/28/17 07:35 11/28/17 07:30 11/28/17 07:30 11/28/17 07:30 Intake and Output: 11/28/17 11/28/17 06:59 18:59 Intake Total 855 Balance 855 - Medications Medications: Current Medications Clonidine HCl (Catapres Tts1 0.1 Mg/24 Hr) 1 patch TD Q7D@1000 [facility] Last Admin: 11/27/17 11:30 Dose: 1 patch Dextrose (Dextrose 50% Inj) 0 ml IV STAT PRN; Protocol PRN Reason: Hypoglycemia Protocol Last Admin: 11/27/17 05:55 Dose: 50 ml Dextrose (Glutose 15) 0 gm PO ONCE PRN; Protocol PRN Reason: Hypoglycemia Protocol Diphenhydramine HCl (Benadryl) 25 mg IVP Q8H PRN PRN Reason: Itching / Pruritus Last Admin: 11/28/17 08:31 Dose: 25 mg Famotidine (Pepcid) 20 mg IVP DAILY [facility] Last Admin: 11/28/17 09:18 Dose: 20 mg Glucagon (Glucagen Diagnostic Kit) 0 mg IM STAT PRN; Protocol PRN Reason: Hypoglycemia Protocol Glucagon (Glucagen Diagnostic Kit) 0 mg IM STAT PRN; Protocol PRN Reason: Hypoglycemia Protocol Glucagon (Glucagen Diagnostic Kit) 1 mg IM STAT PRN; Protocol PRN Reason: Hypoglycemia Protocol Hydromorphone HCl (Dilaudid) 0.25 mg IVP Q8H PRN PRN Reason: Pain, moderate (4-7) Last Admin: 11/28/17 08:32 Dose: 0.25 mg Dextrose (Dextrose 5% In Water 1000 Ml) 1,000 mls @ 0 mls/hr IV .Q0M PRN; Protocol; Per Protocol PRN Reason: Hypoglycemia Protocol Sodium Chloride (Sodium Chloride 0.45%) 1,000 mls @ 60 mls/hr IV .[id number] [facility] Last Admin: 11/28/17 06:14 Dose: Not Given Insulin Aspart (Novolog) 0 unit SC ACHS [facility] PRN Reason: Protocol Last Admin: 11/28/17 09:17 Dose: 8 units Insulin Detemir (Levemir) 30 unit SC BIDAC [facility] Last Admin: 11/28/17 07:59 Dose: Not Given Labetalol HCl (Trandate) 20 mg IV Q1H PRN PRN Reason: Systolic Blood Pressure >180 Last Admin: 11/27/17 16:26 Dose: 20 mg Metoclopramide HCl (Reglan) 10 mg IVP Q8H PRN PRN Reason: Nausea/Vomiting Last Admin: 11/28/17 06:29 Dose: 10 mg Nifedipine (Procardia Xl) 60 mg PO DAILY [facility] Last Admin: 11/27/17 11:03 Dose: Not Given Ondansetron HCl (Zofran Inj) 4 mg IVP Q6H PRN PRN Reason: Nausea/Vomiting Last Admin: 11/28/17 03:26 Dose: 4 mg - Labs Labs: 11/28/17 05:36 11/28/17 05:36 - Additional Findings Additional findings: - Constitutional Appears: Non-toxic, No Acute Distress - Head Exam Head Exam: NORMAL INSPECTION, NORMOCEPHALIC - Eye Exam Eye Exam: EOMI, Normal appearance. absent: Nystagmus, Scleral icterus - Respiratory Exam Respiratory Exam: Clear to Ausculation Bilateral, NORMAL BREATHING PATTERN. absent: Rales, Rhonchi, Wheezes, Respiratory Distress - Cardiovascular Exam Cardiovascular Exam: Tachycardia, REGULAR RHYTHM, +S1, +S2 - GI/Abdominal Exam GI & Abdominal Exam: Soft, Tenderness, Normal Bowel Sounds. absent: Firm, Guarding, Rigid - Extremities Exam Extremities Exam: Normal Inspection. absent: Calf Tenderness, Pedal Edema - Neurological Exam Neurological Exam: Alert, Awake, Oriented x3. absent: Altered - Psychiatric Exam Psychiatric exam: Anxious, Normal Affect - Skin Skin Exam: Intact, Normal Color Assessment and Plan - Assessment and Plan (Free Text) Assessment: Patient is a 27 y.o female wiht PMH of HTN, CKD, Anemia, Psuedoseziurse, anxiety , and depression comes to the hospital for evaluation of intractable vomiting a/ w abdominal pain; has worsening renal function; nephrology consulted- assisting with blood pressure and decreased kidney function; psych consulted- stabilize patient prior to [facility] evaluation Plan: Diabetes Meillitus Patient NPO; Blood sugars 352 today; 8 units given, will reassess sugars ISS-high dose; Levemir 30 units sc BID jossue- held Accuchecks; Hypoglycemic protocol Hypertensive Urgency BP-170/95 Labetolol IV 20g q1 PRN (SBP>180) Clonidine 0.1mg patch q7d Nifedipine 60mg po daily- not given as patient continues to vomit Acute Renal Failure on CKD stage 3 BUN/CR: 41/3.9; Cr trending down Pre renal etiology likely even with elevated blood pressures Nephrology consulted: Dr. Nieves Responding appropriately to fluid challenge; Continue as per Nephro: 04/21 NS 60mls/hr PICC line inserted 11/25 UA: 3+ glucose, 3+ protein, 1+ blood, WBC 7, Urine bacteria moderate Urine Cr 140.4; Ur sodium <5; Abdominal Pain with vomiting Reglan 10mg IVP q8h Zofran 3mg IVP q6 prn Dilaudid 0.25mg IV q8 prn Patient has been seen to be continue inducing vomiting by putting finger down throat by nursing staff Educated patient on importance of not inducing vomiting [facility] Psych consult- Dr. New- patient labs must be stable before [facility] eval Prophylaxis Pepcid 20mg IVP daily
[2017-11-28] MEDS: NIFEdipine 60 mg ER Tab PO SCH (10:56)
--- NOTE | 2017-11-28 22:59 | CP.PCM.PN ---
Subjective - Date & Time of Evaluation Date of Evaluation: 11/28/17 Time of Evaluation: 14:00 - Subjective Subjective: Reports vomiting has improved; wants to drink something; Objective - Vital Signs/Intake and Output Vital Signs (last 24 hours): Temp Pulse Resp BP Pulse Ox 98.1 F 106 H 20 156/95 H 100 11/28/17 15:00 11/28/17 18:40 11/28/17 15:00 11/28/17 18:40 11/28/17 15:00 Intake and Output: 11/28/17 11/29/17 18:59 06:59 Intake Total 700 Balance 700 - Medications Medications: Current Medications Clonidine HCl (Catapres Tts1 0.1 Mg/24 Hr) 1 patch TD Q7D@1000 [facility] Last Admin: 11/27/17 11:30 Dose: 1 patch Dextrose (Dextrose 50% Inj) 0 ml IV STAT PRN; Protocol PRN Reason: Hypoglycemia Protocol Last Admin: 11/27/17 05:55 Dose: 50 ml Dextrose (Glutose 15) 0 gm PO ONCE PRN; Protocol PRN Reason: Hypoglycemia Protocol Diphenhydramine HCl (Benadryl) 25 mg IVP Q8H PRN PRN Reason: Itching / Pruritus Last Admin: 11/28/17 20:42 Dose: 25 mg Famotidine (Pepcid) 20 mg IVP DAILY [facility]S [facility] Last Admin: 11/28/17 09:18 Dose: 20 mg Glucagon (Glucagen Diagnostic Kit) 0 mg IM STAT PRN; Protocol PRN Reason: Hypoglycemia Protocol Glucagon (Glucagen Diagnostic Kit) 0 mg IM STAT PRN; Protocol PRN Reason: Hypoglycemia Protocol Glucagon (Glucagen Diagnostic Kit) 1 mg IM STAT PRN; Protocol PRN Reason: Hypoglycemia Protocol Hydromorphone HCl (Dilaudid) 0.25 mg IVP Q8H PRN PRN Reason: Pain, moderate (4-7) Last Admin: 11/28/17 20:42 Dose: 0.25 mg Dextrose (Dextrose 5% In Water 1000 Ml) 1,000 mls @ 0 mls/hr IV .Q0M PRN; Protocol; Per Protocol PRN Reason: Hypoglycemia Protocol Sodium Chloride (Sodium Chloride 0.45%) 1,000 mls @ 60 mls/hr IV .[id number] [facility] 234 BEDS AT [facility] Last Admin: 11/28/17 13:58 Dose: 60 mls/hr Insulin Aspart (Novolog) 0 unit SC ACHS [facility] 234 BEDS AT [facility] PRN Reason: Protocol Last Admin: 11/28/17 21:24 Dose: 2 units Insulin Detemir (Levemir) 30 unit SC BIDAC [facility] 234 BEDS AT [facility] Last Admin: 11/28/17 17:45 Dose: 30 units Labetalol HCl (Trandate) 20 mg IV Q1H PRN PRN Reason: Systolic Blood Pressure >180 Last Admin: 11/27/17 16:26 Dose: 20 mg Metoclopramide HCl (Reglan) 10 mg IVP Q8H PRN PRN Reason: Nausea/Vomiting Last Admin: 11/28/17 06:29 Dose: 10 mg Nifedipine (Procardia Xl) 60 mg PO DAILY [facility] 234 BEDS AT [facility] Last Admin: 11/28/17 10:56 Dose: Not Given Ondansetron HCl (Zofran Inj) 4 mg IVP Q6H PRN PRN Reason: Nausea/Vomiting Last Admin: 11/28/17 03:26 Dose: 4 mg - Labs Labs: 11/28/17 05:36 11/28/17 05:36 - Constitutional Appears: Non-toxic, No Acute Distress - Eye Exam Eye Exam: Normal appearance - ENT Exam ENT Exam: Mucous Membranes Moist - Respiratory Exam Respiratory Exam: Clear to Ausculation Bilateral. absent: Respiratory Distress - Cardiovascular Exam Cardiovascular Exam: RRR, +S1, +S2 - GI/Abdominal Exam GI & Abdominal Exam: Soft, Tenderness. absent: Distended - Extremities Exam Additional comments: no leg edema - Neurological Exam Neurological Exam: Alert, Awake - Psychiatric Exam Psychiatric exam: absent: Agitated - Skin Skin Exam: Warm. absent: Cyanosis Assessment and Plan (1) ARF (acute renal failure) Assessment & Plan: GABRIELA on CKD; primarily pre-renal etiology in the setting of persistent GI losses (urine lytes also suggestive of the same); renal function improved with IVF but serum creatinine still significantly above baseline (2.2 in June 2017); concern for superimposed ATN; also, aggressive IVF administration limited by profound htn and saline sensitivity; -continue 1/2NS at 60 cc/hr; -continue to avoid nephrotoxic agents; -targeting gradual BP lowering with clonidine patch (placed yesterday); Status: Acute (2) Hypertensive CKD (chronic kidney disease) Assessment & Plan: BP better controlled today on clonidine patch 0.1 mg; continue labetalol IV prn; Status: Acute (3) CKD (chronic kidney disease) stage 3, GFR 30-59 ml/min Assessment & Plan: Secondary to DM nephropathy; overall prognosis is extremely guarded in patient who cannot stay free from gastroparesis flares; has massive proteinuria with nephrotic syndrome but difficult keep on ANDREW blockade with HERLINDA inhibitor with her history of recurrent vomiting and ensuing volume depletion; will continue to monitor closely; Status: Chronic (4) Gastroparesis Assessment & Plan: Discussed with patient as to why she had a flare; reports sugars being uncontrolled lately despite being on insulin pump; 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
[2017-11-29] MEDS ORDERED: DiphenhydrAMINE 12.5 mg/5 ml LIQ UD (5 ml) PO ONE (01:34)
[2017-11-29] MEDS: DiphenhydrAMINE 50 mg/ml Inj IVP PRN (04:28)
[2017-11-29] MEDS: HYDROmorphone 0.5 mg/0.5 ml ISec IVP PRN (04:29)
[2017-11-29 05:38] LABS: BASO % 0.3 % (0.0-2.0); EOS # 0.3 K/uL (0.0-0.7); EOS % 2.3 % (0.0-4.0); HEMOGLOBIN 10.8 g/dL (11.0-16.0); LYMPH % 36.1 % (20.0-40.0); MEAN CELL VOLUME 85.7 fL (81.0-99.0); MEAN CORPUSCULAR HEMOGLOBIN 28.3 pg (27.0-31.0); MEAN CORPUSCULAR HGB CONC 33.1 g/dL (33.0-37.0); MEAN PLATELET VOLUME 9.8 fL (7.2-11.7); MONO # 1.2 K/uL (0.0-0.8); MONO % 10.3 % (0.0-10.0); NEUT # 5.7 K/uL (1.8-7.0); RBC 3.8 Mil/uL (3.80-5.20); RED CELL DISTRIBUTION WIDTH 13.5 % (11.5-14.5); WHITE BLOOD COUNT 11.2 K/uL (4.8-10.8)
[2017-11-29] MEDS: Sodium Chloride 0.45% 1,000 ML IV SCH (06:04)
[2017-11-29 06:44] LABS: ALBUMIN 2.5 g/dL (3.5-5.0); CALCIUM 7.9 mg/dl (8.6-10.4)
[2017-11-29] MEDS: (Novolog) Insulin Aspart, Recombinant 100 u/ml 10 ml vial SC SCH ×3 (07:39→17:33)
[2017-11-29] MEDS: Insulin Detemir 100 units/ml Vial (Levemir) SC SCH ×2 (07:39→17:32)
--- NOTE | 2017-11-29 10:13 | CP.PCM.PN ---
Subjective - Date & Time of Evaluation Date of Evaluation: 11/29/17 Time of Evaluation: 10:10 - Subjective Subjective: PGY-1 Medicine Progress Note for Dr. King's service Patient seen and examined at bedside. Patient reports no abdominal pain, nausea , or vomiting. Patient states she is very hungry. Patient had very low blood sugar in the AM. Patient offers no acute complaints. Patients left arm is swollen but she states that it happens when she received IV fluids. Patient denies chest pain, sob, n/v, constipation or diarrhea, dysuria. Objective - Vital Signs/Intake and Output Vital Signs (last 24 hours): Temp Pulse Resp BP Pulse Ox 98.2 F 81 20 118/72 98 11/29/17 07:00 11/29/17 07:29 11/29/17 07:00 11/29/17 07:00 11/29/17 07:00 Intake and Output: 11/29/17 11/29/17 06:59 18:59 Intake Total 1660 Balance 1660 - Medications Medications: Current Medications Clonidine HCl (Catapres Tts1 0.1 Mg/24 Hr) 1 patch TD Q7D@1000 [facility] Last Admin: 11/27/17 11:30 Dose: 1 patch Dextrose (Dextrose 50% Inj) 0 ml IV STAT PRN; Protocol PRN Reason: Hypoglycemia Protocol Last Admin: 11/27/17 05:55 Dose: 50 ml Dextrose (Glutose 15) 0 gm PO ONCE PRN; Protocol PRN Reason: Hypoglycemia Protocol Diphenhydramine HCl (Benadryl) 25 mg IVP Q8H PRN PRN Reason: Itching / Pruritus Last Admin: 11/29/17 04:28 Dose: 25 mg Famotidine (Pepcid) 20 mg IVP DAILY [facility] Last Admin: 11/29/17 09:45 Dose: 20 mg Glucagon (Glucagen Diagnostic Kit) 0 mg IM STAT PRN; Protocol PRN Reason: Hypoglycemia Protocol Glucagon (Glucagen Diagnostic Kit) 0 mg IM STAT PRN; Protocol PRN Reason: Hypoglycemia Protocol Glucagon (Glucagen Diagnostic Kit) 1 mg IM STAT PRN; Protocol PRN Reason: Hypoglycemia Protocol Hydromorphone HCl (Dilaudid) 0.25 mg IVP Q8H PRN PRN Reason: Pain, moderate (4-7) Last Admin: 11/29/17 04:29 Dose: 0.25 mg Dextrose (Dextrose 5% In Water 1000 Ml) 1,000 mls @ 0 mls/hr IV .Q0M PRN; Protocol; Per Protocol PRN Reason: Hypoglycemia Protocol Potassium Chloride 40 meq/ (Sodium Chloride) 1,020 mls @ 60 mls/hr IV .Q17H [facility] Last Admin: 11/29/17 08:41 Dose: 60 mls/hr Insulin Aspart (Novolog) 0 unit SC ACHS [facility] PRN Reason: Protocol Last Admin: 11/29/17 07:39 Dose: Not Given Insulin Detemir (Levemir) 30 unit SC BIDAC [facility] Last Admin: 11/29/17 07:39 Dose: Not Given Labetalol HCl (Trandate) 20 mg IV Q1H PRN PRN Reason: Systolic Blood Pressure >180 Last Admin: 11/27/17 16:26 Dose: 20 mg Metoclopramide HCl (Reglan) 10 mg IVP Q8H PRN PRN Reason: Nausea/Vomiting Last Admin: 11/28/17 06:29 Dose: 10 mg Nifedipine (Procardia Xl) 60 mg PO DAILY [facility] Last Admin: 11/28/17 10:56 Dose: Not Given Ondansetron HCl (Zofran Inj) 4 mg IVP Q6H PRN PRN Reason: Nausea/Vomiting Last Admin: 11/28/17 03:26 Dose: 4 mg - Labs Labs: 11/29/17 05:35 11/29/17 05:35 - Additional Findings Additional findings: Constitutional Appears: Non-toxic, No Acute Distress - Head Exam Head Exam: NORMAL INSPECTION, NORMOCEPHALIC - Eye Exam Eye Exam: EOMI, Normal appearance. absent: Nystagmus, Scleral icterus - Respiratory Exam Respiratory Exam: Clear to Ausculation Bilateral, NORMAL BREATHING PATTERN. absent: Rales, Rhonchi, Wheezes, Respiratory Distress - Cardiovascular Exam Cardiovascular Exam: Tachycardia, REGULAR RHYTHM, +S1, +S2 - GI/Abdominal Exam GI & Abdominal Exam: Soft, Tenderness, Normal Bowel Sounds. absent: Firm, Guarding, Rigid - Extremities Exam Extremities Exam: left arm is swollen but no erythema or discoloration, not tender to palpation as well absent: Calf Tenderness, Pedal Edema - Neurological Exam Neurological Exam: Alert, Awake, Oriented x3. absent: Altered - Psychiatric Exam Psychiatric exam: Anxious, Normal Affect - Skin Skin Exam: Intact, Normal Color Assessment and Plan - Assessment and Plan (Free Text) Assessment: Patient is a 27 y.o female wiht PMH of HTN, CKD, Anemia, Psuedoseziurse, anxiety , and depression comes to the hospital for evaluation of intractable vomiting a/ w abdominal pain; has worsening renal function; difficult to control blood pressure; difficult to control blood sugars in setting of inducing vomiting; nephrology consulted Plan: Diabetes Meillitus Patient NPO; Blood sugars 20 in AM; repeat after given meds was 80 today; Will try renal diet; as patient was able to have no vomiting or pain with clear diet ISS-high dose; Levemir 30 units sc BID jossue Accuchecks; Hypoglycemic protocol Hypertensive Urgency BP-118/72 Labetolol IV 20g q1 PRN (SBP>180) Clonidine .1mg patch q7d Nifedipine 60mg po daily- held- blood pressure under control Acute Renal Failure on CKD stage 3 Nephrology consulted: Dr. Nieves BUN/CR: 5.0/3.9; Cr trending down however has stayed 3.9 (may be new baseline from 2.2 prior hospital admission) Pre renal etiology likely due to volume loss via vomiting even with elevated blood pressures; Urine Cr 140.4; Ur sodium <5; Responding appropriately to fluid challenge; Continue as per Nephro: NS 250mls/ hr PICC line inserted 11/25 UA: 3+ glucose, 3+ protein, 1+ blood, WBC 7, Urine bacteria moderate Abdominal Pain with vomiting Reglan 10mg IVP q8h Zofran 3mg IVP q6 prn Dilaudid 0.25mg IV q8 prn Will try renal diet as patient did not throw up yesterday with clear diet. [facility] Psych consult- Dr. New- patient labs must be stable before [facility] [place] Prophylaxis Pepcid 20mg IVP daily
[2017-11-29] MEDS: NIFEdipine 60 mg ER Tab PO SCH (10:28)
--- NOTE | 2017-11-29 19:18 | CP.PCM.PN ---
Subjective - Date & Time of Evaluation Date of Evaluation: 11/29/17 Time of Evaluation: 14:30 - Subjective Subjective: Reports feeling better; tolerating diet today; no vomiting; not ambulating due to being on video observation; Objective - Vital Signs/Intake and Output Vital Signs (last 24 hours): Temp Pulse Resp BP Pulse Ox 98.3 F 86 20 133/88 97 11/29/17 15:00 11/29/17 15:00 11/29/17 15:00 11/29/17 15:00 11/29/17 15:00 - Medications Medications: Current Medications Clonidine HCl (Catapres Tts1 0.1 Mg/24 Hr) 1 patch TD Q7D@1000 KELVIN Last Admin: 11/27/17 11:30 Dose: 1 patch Dextrose (Dextrose 50% Inj) 0 ml IV STAT PRN; Protocol PRN Reason: Hypoglycemia Protocol Last Admin: 11/27/17 05:55 Dose: 50 ml Dextrose (Glutose 15) 0 gm PO ONCE PRN; Protocol PRN Reason: Hypoglycemia Protocol Diphenhydramine HCl (Benadryl) 25 mg IVP Q8H PRN PRN Reason: Itching / Pruritus Last Admin: 11/29/17 04:28 Dose: 25 mg Famotidine (Pepcid) 20 mg IVP DAILY [facility] Last Admin: 11/29/17 09:45 Dose: 20 mg Glucagon (Glucagen Diagnostic Kit) 0 mg IM STAT PRN; Protocol PRN Reason: Hypoglycemia Protocol Glucagon (Glucagen Diagnostic Kit) 0 mg IM STAT PRN; Protocol PRN Reason: Hypoglycemia Protocol Glucagon (Glucagen Diagnostic Kit) 1 mg IM STAT PRN; Protocol PRN Reason: Hypoglycemia Protocol Hydromorphone HCl (Dilaudid) 0.25 mg IVP Q8H PRN PRN Reason: Pain, moderate (4-7) Last Admin: 11/29/17 04:29 Dose: 0.25 mg Dextrose (Dextrose 5% In Water 1000 Ml) 1,000 mls @ 0 mls/hr IV .Q0M PRN; Protocol; Per Protocol PRN Reason: Hypoglycemia Protocol Potassium Chloride 40 meq/ (Sodium Chloride) 1,020 mls @ 60 mls/hr IV .Q17H [facility] Last Admin: 11/29/17 08:41 Dose: 60 mls/hr Insulin Aspart (Novolog) 0 unit SC ACHS [facility] PRN Reason: Protocol Last Admin: 11/29/17 17:33 Dose: 4 units Insulin Detemir (Levemir) 30 unit SC BIDAC [facility] Last Admin: 11/29/17 17:32 Dose: 30 units Labetalol HCl (Trandate) 20 mg IV Q1H PRN PRN Reason: Systolic Blood Pressure >180 Last Admin: 11/27/17 16:26 Dose: 20 mg Metoclopramide HCl (Reglan) 10 mg IVP Q8H PRN PRN Reason: Nausea/Vomiting Last Admin: 11/28/17 06:29 Dose: 10 mg Nifedipine (Procardia Xl) 60 mg PO DAILY [facility] Last Admin: 11/29/17 10:28 Dose: Not Given Ondansetron HCl (Zofran Inj) 4 mg IVP Q6H PRN PRN Reason: Nausea/Vomiting Last Admin: 11/28/17 03:26 Dose: 4 mg - Labs Labs: 11/29/17 05:35 11/29/17 05:35 - Constitutional Appears: Non-toxic, No Acute Distress - Eye Exam Eye Exam: Normal appearance - Respiratory Exam Respiratory Exam: Clear to Ausculation Bilateral. absent: Respiratory Distress - Cardiovascular Exam Cardiovascular Exam: RRR, +S1, +S2. absent: Rubs - Extremities Exam Additional comments: L forearm/hand edema; - Neurological Exam Neurological Exam: Alert, Awake - Psychiatric Exam Psychiatric exam: Normal Affect, Normal Mood. absent: Agitated - Skin Skin Exam: Warm. absent: Cyanosis Assessment and Plan (1) ARF (acute renal failure) Assessment & Plan: GABRIELA on CKD IIIB; renal function at plateau after showing partial improvement; stable volume and electrolyte status; -d/c PICC line to prevent slcerosing of veins/DVT; -d/c IVF now that patient eating well; -continuing to hold HERLINDA inhibitor/ARB until renal function returns to baseline ( although new baseline may need to be established); -avoid nephrotoxic agents (NSAIDS, phosphate enema); Status: Acute (2) Hypertensive CKD (chronic kidney disease) Assessment & Plan: BP much better controlled on clonidine patch; will continue patch for now; if we can start back ARB at some point, may need to wean her off clonidine; Status: Acute (3) CKD (chronic kidney disease) stage 3, GFR 30-59 ml/min Assessment & Plan: Secondary to DM nephropathy with nephrotic syndrome; see above regarding ARB; Status: Chronic (4) Gastroparesis Assessment & Plan: Symptoms improved; advised to eat small, frequent meals; Status: Acute
[2017-11-30] MEDS ORDERED: HYDROmorphone 0.5 mg/0.5 ml ISec IM STA (01:55)
--- NOTE | 2017-11-30 06:25 | CP.PCM.PN ---
Subjective - Date & Time of Evaluation Date of Evaluation: 11/30/17 Time of Evaluation: 06:25 - Subjective Subjective: Nephrology Progress Note for Tristan Weinberg PGY3 Patient seen and examined at bedside. There were no acute overnight events as per nursing staff. Patient has been tolerating her diet and feeling much better today. She reports her abdominal pain has resolved. She denies chest pain, shortness of breath, nausea/vomiting/diarrhea, fever/chills, numbness/tingling, dysuria or hematuria. Objective - Vital Signs/Intake and Output Vital Signs (last 24 hours): Temp Pulse Resp BP Pulse Ox 98.2 F 81 20 135/88 98 11/29/17 23:30 11/30/17 05:14 11/29/17 23:30 11/29/17 23:30 11/29/17 23:30 - Medications Medications: Current Medications Clonidine HCl (Catapres Tts1 0.1 Mg/24 Hr) 1 patch TD Q7D@1000 KELVIN Last Admin: 11/27/17 11:30 Dose: 1 patch Dextrose (Dextrose 50% Inj) 0 ml IV STAT PRN; Protocol PRN Reason: Hypoglycemia Protocol Last Admin: 11/27/17 05:55 Dose: 50 ml Dextrose (Glutose 15) 0 gm PO ONCE PRN; Protocol PRN Reason: Hypoglycemia Protocol Diphenhydramine HCl (Benadryl) 25 mg IVP Q8H PRN PRN Reason: Itching / Pruritus Last Admin: 11/29/17 04:28 Dose: 25 mg Famotidine (Pepcid) 20 mg IVP DAILY [facility] Last Admin: 11/29/17 09:45 Dose: 20 mg Glucagon (Glucagen Diagnostic Kit) 0 mg IM STAT PRN; Protocol PRN Reason: Hypoglycemia Protocol Glucagon (Glucagen Diagnostic Kit) 0 mg IM STAT PRN; Protocol PRN Reason: Hypoglycemia Protocol Glucagon (Glucagen Diagnostic Kit) 1 mg IM STAT PRN; Protocol PRN Reason: Hypoglycemia Protocol Hydromorphone HCl (Dilaudid) 0.25 mg IVP Q8H PRN PRN Reason: Pain, moderate (4-7) Last Admin: 11/29/17 04:29 Dose: 0.25 mg Dextrose (Dextrose 5% In Water 1000 Ml) 1,000 mls @ 0 mls/hr IV .Q0M PRN; Protocol; Per Protocol PRN Reason: Hypoglycemia Protocol Potassium Chloride 40 meq/ (Sodium Chloride) 1,020 mls @ 60 mls/hr IV .Q17H [facility] Last Admin: 11/29/17 08:41 Dose: 60 mls/hr Insulin Aspart (Novolog) 0 unit SC ACHS KELVIN PRN Reason: Protocol Last Admin: 11/29/17 17:33 Dose: 4 units Insulin Detemir (Levemir) 30 unit SC BIDAC [facility] Last Admin: 11/29/17 17:32 Dose: 30 units Labetalol HCl (Trandate) 20 mg IV Q1H PRN PRN Reason: Systolic Blood Pressure >180 Last Admin: 11/27/17 16:26 Dose: 20 mg Metoclopramide HCl (Reglan) 10 mg IVP Q8H PRN PRN Reason: Nausea/Vomiting Last Admin: 11/28/17 06:29 Dose: 10 mg Nifedipine (Procardia Xl) 60 mg PO DAILY [facility] Last Admin: 11/29/17 10:28 Dose: Not Given Ondansetron HCl (Zofran Inj) 4 mg IVP Q6H PRN PRN Reason: Nausea/Vomiting Last Admin: 11/28/17 03:26 Dose: 4 mg - Labs Labs: 11/29/17 05:35 11/29/17 05:35 - Constitutional Appears: No Acute Distress - Head Exam Head Exam: ATRAUMATIC, NORMAL INSPECTION, NORMOCEPHALIC - Eye Exam Eye Exam: Normal appearance, PERRL Pupil Exam: NORMAL ACCOMODATION - ENT Exam ENT Exam: Mucous Membranes Moist - Respiratory Exam Respiratory Exam: Clear to Ausculation Bilateral, NORMAL BREATHING PATTERN. absent: Rales, Rhonchi - Cardiovascular Exam Cardiovascular Exam: Tachycardia, REGULAR RHYTHM, +S1, +S2. absent: Gallop, Rubs, Murmur - GI/Abdominal Exam GI & Abdominal Exam: Soft, Normal Bowel Sounds. absent: Rigid, Tenderness, Mass , Rebound - Extremities Exam Extremities Exam: Normal Inspection. absent: Calf Tenderness, Pedal Edema - Neurological Exam Neurological Exam: Alert, Awake, CN II-XII Intact - Psychiatric Exam Psychiatric exam: Normal Affect, Normal Mood - Skin Skin Exam: Dry, Warm Assessment and Plan - Assessment and Plan (Free Text) Assessment: This is a 27yo female with past medical history of CKD IIIb secondary to diabetic nephropathy and nephrotic syndrome diagnosed on biopsy who was admitted for 1. GABRIELA on CKD IIIb- acute/stable - can be secondary to pre-renal etiology with underlying uncontrolled DM and nephrotic syndrome - renal function improving but not at baseline (2.5?) - Hold ACEI/ARB until Cr returns to baseline - but this may be her new baseline - Patient tolerating diet- fluids d/c - Avoid nephrotoxic agents - PICC line d/c to preserve veins for possible HD in future 2. HTN - controlled - Continue Procardia and Clonidine patch - PRN labetolol 4. Gastroparesis - improved - Continue Reglan/Zofran prn - Small, frequent meals. 5. IDDM - chronic - poorly controlled at home (had insulin pump at home- was intermittently using) - Insulin sliding scale - Recommend to follow up with outpatient orchestra conductor for further management to prevent further episodes of gastroparesis Case seen, discussed and reviewed with Dr. Nieves. Tristan Préez PGY3
[2017-11-30] MEDS ORDERED: DiphenhydrAMINE 50 mg/ml Inj IM PRN (06:44)
[2017-11-30 07:44] LABS: BASO # 0.1 K/uL (0.0-0.2); BASO % 1.1 % (0.0-2.0); EOS # 0.4 K/uL (0.0-0.7); HEMOGLOBIN 10.9 g/dL (11.0-16.0); LYMPH % 30.9 % (20.0-40.0); MEAN CELL VOLUME 85.7 fL (81.0-99.0); MEAN CORPUSCULAR HEMOGLOBIN 28.6 pg (27.0-31.0); MEAN CORPUSCULAR HGB CONC 33.3 g/dL (33.0-37.0); MONO # 0.9 K/uL (0.0-0.8); MONO % 9.4 % (0.0-10.0); NEUT # 5.2 K/uL (1.8-7.0); NEUT % 54.6 % (50.0-75.0); RBC 3.8 Mil/uL (3.80-5.20); RED CELL DISTRIBUTION WIDTH 13.6 % (11.5-14.5); WHITE BLOOD COUNT 9.6 K/uL (4.8-10.8)
--- NOTE | 2017-11-30 07:52 | PCM.PYCHPN ---
Psychiatric Progress Note - Psychiatric Progress Note Patient Chief Complaint: I m feeling depressed.' Mental Status Examination - Cognitive Function Orientation: Person, Place, Situation, Time - Mood Mood: Depressed, Anxious - Affect Affect: Constricted, Depressed - Formal Thought Process Formal Thought Process: No Impairment Goal/Treatment Plan - Goal/Treatment Plan Progress Toward Problem(s) and Goals/Treatment Plan: CBT Psychoeducation Supportive therapy, milieu therapy Haldol and benadryl for anxiety
[2017-11-30 08:07] LABS: ALB/GLOB RATIO 1.1 (1.0-2.1); ALBUMIN 2.6 g/dL (3.5-5.0); CALCIUM 7.8 mg/dl (8.6-10.4)
[2017-11-30 08:12] VITALS: BP 150/98; PULSE 93; TEMP 97.6; O2SAT 99
[2017-11-30] MEDS: (Novolog) Insulin Aspart, Recombinant 100 u/ml 10 ml vial SC SCH (08:28)
[2017-11-30] MEDS: Insulin Detemir 100 units/ml Vial (Levemir) SC SCH (08:28)
[2017-11-30] MEDS: NIFEdipine 60 mg ER Tab PO SCH (09:19)
[2017-11-30] MEDS ORDERED: Dextrose 50% SYRINGE Inj (50 ml) ONE (11:03)
[2017-11-30] MEDS: Dextrose 50% SYRINGE Inj (50 ml) IV PRN (11:05)
--- NOTE | 2017-11-30 13:54 | CP.PCM.DIS ---
Provider - Provider Date of Admission: 11/23/17 22:32 Attending physician: Reza Pantoja Jr, MD Consults: Dr. Ezequiel New Time Spent in preparation of Discharge (in minutes): 45 Hospital Course - Lab Results Lab Results: Micro Results 11/24/17 23:08 Blood-Thru Central Line Blood Culture - Final NO GROWTH AFTER 5 DAYS 11/24/17 23:08 Blood-Thru Central Line Gram Stain - Final TEST NOT PERFORMED 11/24/17 23:08 Blood-Thru Central Line Blood Culture - Final NO GROWTH AFTER 5 DAYS 11/24/17 23:08 Blood-Thru Central Line Gram Stain - Final TEST NOT PERFORMED 11/25/17 09:21 Urine,Clean Catch Urine Culture - Final No Growth (<1,000 CFU/ML) Most Recent Lab Values WBC 9.6 K/uL (4.8-10.8) 11/30/17 07:38 RBC 3.80 Mil/uL (3.80-5.20) 11/30/17 07:38 Hgb 10.9 g/dL (11.0-16.0) L 11/30/17 07:38 Hct 32.5 % (34.0-47.0) L 11/30/17 07:38 MCV 85.7 fL (81.0-99.0) 11/30/17 07:38 MCH 28.6 pg (27.0-31.0) 11/30/17 07:38 MCHC 33.3 g/dL (33.0-37.0) 11/30/17 07:38 RDW 13.6 % (11.5-14.5) 11/30/17 07:38 Plt Count 181 K/uL (130-400) 11/30/17 07:38 MPV 10.0 fL (7.2-11.7) 11/30/17 07:38 Neut % (Auto) 54.6 % (50.0-75.0) 11/30/17 07:38 Lymph % (Auto) 30.9 % (20.0-40.0) 11/30/17 07:38 [place] % (Auto) 9.4 % (0.0-10.0) 11/30/17 07:38 Eos % (Auto) 4.0 % (0.0-4.0) 11/30/17 07:38 Baso % (Auto) 1.1 % (0.0-2.0) 11/30/17 07:38 Neut # (Auto) 5.2 K/uL (1.8-7.0) 11/30/17 07:38 Lymph # (Auto) 3.0 K/uL (1.0-4.3) 11/30/17 07:38 [place] # (Auto) 0.9 K/uL (0.0-0.8) H 11/30/17 07:38 Eos # (Auto) 0.4 K/uL (0.0-0.7) 11/30/17 07:38 Baso # (Auto) 0.1 K/uL (0.0-0.2) 11/30/17 07:38 Neutrophils % (Manual) 92 % (50-75) H 11/26/17 10:56 Band Neutrophils % 1 % (0-2) 11/25/17 09:24 Lymphocytes % (Manual) 5 % (20-40) L 11/26/17 10:56 Monocytes % (Manual) 3 % (0-10) 11/26/17 10:56 Platelet Estimate Normal (NORMAL) 11/26/17 10:56 RBC Morphology Normal 11/26/17 10:56 Polychromasia Slight 11/24/17 17:16 Hypochromasia (manual) Slight 11/24/17 17:16 Poikilocytosis (manual Slight 11/25/17 09:24 Ovalocytes Slight 11/25/17 09:24 Puncture Site Rb 11/24/17 11:08 pCO2 32 mm/Hg (35-45) L 11/24/17 11:08 pO2 188 mm/Hg (80-100) H 11/24/17 11:08 HCO3 19.7 mmol/L (21-28) L 11/24/17 11:08 ABG pH 7.35 (7.35-7.45) 11/24/17 11:08 ABG Total CO2 18.7 mmol/L (22-28) L 11/24/17 11:08 ABG O2 Saturation 98.1 % (95-98) H 11/24/17 11:08 ABG Base Excess -6.8 mmol/L (-2.0-3.0) L 11/24/17 11:08 Glenn Test Na 11/24/17 11:08 ABG Potassium 4.1 mmol/L (3.6-5.2) 11/24/17 11:08 VBG pH 7.46 (7.32-7.43) H 11/23/17 21:42 VBG pCO2 32 mmHg (40-60) L 11/23/17 21:42 VBG HCO3 24.6 mmol/L 11/23/17 21:42 VBG Total CO2 23.8 mmol/L (22-28) 11/23/17 21:42 VBG O2 Sat (Calc) 94.7 % (40-65) H 11/23/17 21:42 VBG Base Excess -0.3 mmol/L (0.0-2.0) L 11/23/17 21:42 VBG Potassium 4.0 mmol/L (3.6-5.2) 11/23/17 21:42 Sodium 141.0 mmol/l (132-148) 11/24/17 11:08 Chloride 105.0 mmol/L (98-107) 11/24/17 11:08 Glucose 545 mg/dl (65-105) H* D 11/24/17 11:08 Lactate 4.1 mmol/L (0.7-2.1) H* 11/24/17 11:08 Liter Flow 2.0 11/24/17 11:08 Crit Value Called To Dr pantoja 11/24/17 11:08 Crit Value Called By Jacoby gallardo rcp 11/24/17 11:08 Crit Value Read Back Y 11/24/17 11:08 Blood Gas Notified Time 1115 11/24/17 11:08 Sodium 138 mmol/L (132-148) 11/30/17 07:38 Potassium 3.8 mmol/L (3.6-5.2) 11/30/17 07:38 Chloride 107 mmol/L (98-107) 11/30/17 07:38 Carbon Dioxide 22 mmol/L (22-30) 11/30/17 07:38 Anion Gap 13 (10-20) 11/30/17 07:38 BUN 41 mg/dL (7-17) H 11/30/17 07:38 Creatinine 3.4 mg/dL (0.7-1.2) H 11/30/17 07:38 Est GFR ( Amer) 19 11/30/17 07:38 Est GFR (Non-Af Amer) 16 11/30/17 07:38 POC Glucose (mg/dL) 209 mg/dL (65-110) H 11/30/17 11:16 Random Glucose 58 mg/dL (65-105) L 11/30/17 07:38 Lactic Acid 1.3 mmol/L (0.7-2.1) 11/24/17 17:16 Calcium 7.8 mg/dl (8.6-10.4) L 11/30/17 07:38 Phosphorus 3.8 mg/dL (2.5-4.5) 11/30/17 07:38 Magnesium 2.1 mg/dL (1.6-2.3) 11/30/17 07:38 Total Bilirubin 0.2 mg/dL (0.2-1.3) 11/30/17 07:38 AST 19 U/L (14-36) 11/30/17 07:38 ALT 22 U/L (9-52) 11/30/17 07:38 Alkaline Phosphatase 117 U/L (38-126) 11/30/17 07:38 Total Creatine Kinase 459 U/L (30-135) H 11/24/17 17:16 CK-MB (Mass) 2.83 ng/mL (0.0-3.38) 11/24/17 17:16 Troponin I 0.0460 ng/mL (0.00-0.120) 11/24/17 17:16 Total Protein 5.0 g/dL (6.3-8.3) L 11/30/17 07:38 Albumin 2.6 g/dL (3.5-5.0) L 11/30/17 07:38 Globulin 2.3 gm/dL (2.2-3.9) 11/30/17 07:38 Albumin/Globulin Ratio 1.1 (1.0-2.1) 11/30/17 07:38 Lipase 18 U/L (23-300) L 11/23/17 20:31 Procalcitonin 8.19 NG/ML (0.19-0.49) H 11/24/17 23:08 Beta HCG, Quant < 2.39 mIU/ML 11/23/17 21:34 Arterial Blood Potassium 4.1 mmol/L (3.6-5.2) 11/24/17 11:08 Venous Blood Potassium 4.0 mmol/L (3.6-5.2) 11/23/17 21:42 Urine Color Yellow (YELLOW) 11/25/17 09:21 Urine Clarity Hazy (Clear) 11/25/17 09:21 Urine pH 5.0 (5.0-8.0) 11/25/17 09:21 Ur Specific [place] 1.020 (1.003-1.030) 11/25/17 09:21 Urine Protein 3+ mg/dL (NEGATIVE) H 11/25/17 09:21 Urine Glucose (UA) 3+ mg/dL (Normal) H 11/25/17 09:21 Urine Ketones Trace mg/dL (NEGATIVE) 11/25/17 09:21 Urine Blood 1+ (NEGATIVE) H 11/25/17 09:21 Urine Nitrate Negative (NEGATIVE) 11/25/17 09:21 Urine Bilirubin Negative (NEGATIVE) 11/25/17 09:21 Urine Urobilinogen Normal mg/dL (0.2-1.0) 11/25/17 09:21 Ur Leukocyte Esterase Neg Kathy/uL (Negative) 11/25/17 09:21 Urine WBC (Auto) 7 /hpf (0-5) H 11/25/17 09:21 Urine RBC (Auto) 1 /hpf (0-3) 11/25/17 09:21 Ur Squamous Epith Cells 43 /hpf (0-5) H 11/25/17 09:21 Urine Bacteria Mod (<OCC) H 11/25/17 09:21 Hyaline Casts 3-5 /lpf (0-2) H 11/25/17 09:21 Ur Random Creatinine 140.4 mg/dL 11/25/17 09:21 Ur Random Sodium < 5 mmol/L 11/25/17 09:21 Urine Chloride <15 mmol/L (32-290) L 11/25/17 09:21 B-Hydroxybutyrate 0.43 mM (0.02-0.27) H 11/23/17 21:17 - Hospital Course Hospital Course: PMD: Dr. Pantoja PMHx: HTN, DM, gastroparesis, seizure disorder (to include pseudo-seizures) SurgHx: denies FamHx: Grandmother- DM SocHx: denies tobacco, alcohol, and drug use Allergies: NKDA Medications: Insulin 5 units QID, hydroxyzine 25mg daily, vitamin D 32221 units weekly, feosol 325mg BID, nifedipine 30mg PO daily, folic acid 1mg daily, losartan 25mg po daily, protonix 40mg HS, keppra 250mg BID, vitamin B12 1000mg daily. Social Hx: Lives with her mother, Unemployed and denies current or former use of tobacco, ETOH and illicit drugs. Upon Admission: Patient is a 27 year old female DM, HTN, gastroparesis, seizure disorder (to include pseudo-seizure), anxiety and depression, who presents to the ED with her mother with complaint of intractable vomiting that has been ongoing for the past 2-3 weeks. As per patient and mother, she has been complaint with her medications at home. Patient admits to nausea, non-bilious vomiting, epigastric abdominal pain and fatigue but denies chest pain, palpitations, SOB, fever, chills, recent contact or recent travels. Hospital Course: 27 yo female presents to the hospital for evaluation of intractable vomiting that had going on for 2-3 weeks prior to admission; on admission blood pressure was very elevated; difficult to control sugars meaning initially they were very high above 500s but later during stay she had very low sugars dipping into the < 50s; worsening renal function was noticed on labs; patient was found to be inducing vomiting had multiple construction director called for pseudoseizures; Dr. Nieves and Dr. New were consulted; Patient was educated to cease forcing vomiting as that was the only reason for why she had abdominal pain and erratic labs including elevated blood pressures; was treated with fluids through PICC line which was placed on admission; patient was educated that further insult to her kidney by throwing up would require dialysis much sooner than later; patient was discharged when she stabilized after 2 days of no abdominal pain, nausea, vomiting and able to tolerate diet. Discharge Plan: Patient is stable for discharge to home as per Dr. Pantoja. Patient should followup with PMD, Dr. Pantoja, within 1 week after discharge from hospital. Patient should also followup with Dr. Nieves, cloth neutralizer, and her academic coordinator after discharge from hospital. Patient reports that she has an appointment scheduled already with Dr. Nieves. Patient should continue to resume all of her home medications as no medication adjustments were made in this current admission. Patient should return to the hospital if symptoms recur or worsen. Patient understands and agrees to the plan above. Discharge Exam - Head Exam Head Exam: ATRAUMATIC, NORMAL INSPECTION, NORMOCEPHALIC - Eye Exam Eye Exam: EOMI, Normal appearance. absent: Nystagmus, Scleral icterus - Respiratory Exam Respiratory Exam: NORMAL BREATHING PATTERN. absent: Rales, Rhonchi, Wheezes, Respiratory Distress - Cardiovascular Exam Cardiovascular Exam: REGULAR RHYTHM, +S1, +S2 - GI/Abdominal Exam GI & Abdominal Exam: Normal Bowel Sounds, Soft. absent: Distended, Firm, Guarding, Tenderness - Extremities Exam Extremities exam: normal inspection Additional comments: PICC removed - Back Exam Back exam: NORMAL INSPECTION. absent: CVA tenderness (L), CVA tenderness (R), vertebral tenderness - Neurological Exam Neurological exam: Alert, Oriented x3 - Psychiatric Exam Psychiatric exam: Normal Affect, Normal Mood - Skin Skin Exam: Intact, Normal Color Discharge Plan - Follow Up Plan Condition: GUARDED Disposition: HOME/ ROUTINE Instructions: Acute Kidney Injury (DC) Additional Instructions: Patient is stable for discharge to home as per Dr. Pantoja. Patient should followup with PMD, Dr. Pantoja, within 1 week after discharge from hospital. Patient should also followup with Dr. Nieves, cloth neutralizer, and her academic coordinator after discharge from hospital. Patient reports that she has an appointment scheduled already with Dr. Nieves. Patient should continue to resume all of her home medications as no medication adjustments were made in this current admission. Patient should return to the hospital if symptoms recur or worsen. Patient understands and agrees to the plan above. Referrals: Reza Pantoja Jr., MD [Medical Doctor] -
--- NOTE | 2017-12-01 17:14 | CARD ---
APPROVED REPORT Date of service: 11/24/2017 EKG Measurement Heart [id number] <Conclusion> Sinus tachycardia Otherwise normal ECG
== END 2017-11-30 14:43 | disposition home or self-care (01) | DRG 533 ==
LOC: C.ER 20:11 → C.3T 22:32 → C.6T 11-24 02:28
PROVIDERS: ADMIT Internal Medicine; ATTEND Internal Medicine
PROC: 02HV33Z Insertion of Infusion Device into Superior Vena Cava, Percutaneous Approach (ICD-10-PCS; principal; 2017-11-24)
DX: E11.43 Type 2 diabetes mellitus with diabetic autonomic (poly)neuropathy (principal); N17.9 Acute kidney failure, unspecified; R65.10 Systemic inflammatory response syndrome (SIRS) of non-infectious origin without acute organ dysfunction; E86.0 Dehydration; E87.0 Hyperosmolality and hypernatremia; E87.2 Acidosis; E11.21 Type 2 diabetes mellitus with diabetic nephropathy; N18.9 Chronic kidney disease, unspecified; E11.65 Type 2 diabetes mellitus with hyperglycemia; E11.649 Type 2 diabetes mellitus with hypoglycemia without coma; E11.22 Type 2 diabetes mellitus with diabetic chronic kidney disease; F32.9 Major depressive disorder, single episode, unspecified; F41.9 Anxiety disorder, unspecified; F44.5 Conversion disorder with seizures or convulsions; G40.909 Epilepsy, unspecified, not intractable, without status epilepticus; I12.9 Hypertensive chronic kidney disease with stage 1 through stage 4 chronic kidney disease, or unspecified chronic kidney disease; Z79.4 Long term (current) use of insulin; K31.84 Gastroparesis

== ENCOUNTER 2018-01-02 19:17 | Inpatient (IN) | payer MEDICAID ==
[2018-01-02 19:17] VITALS: BMI 25.6
--- NOTE | 2018-01-02 19:28 | C.PDOC ---
History Of Present Illness 27 year old female patient presents to the ER with c/o nausea and vomiting. 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 Patient was wheeled in the room and started shaking and urinated on herself upon being placed in bed. Patient talked and was not postictal. 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) Current Symptoms Are (Timing): Gone Severity: Severe Pain Scale Rating Of: 7 Reports Recently: Seen In ED, Treated By A Physician, Hospitalized Recent travel outside of the [place]: No Additional History Per: Patient Past Medical History Reviewed: Historical Data, Nursing Documentation, Vital Signs Vital Signs: Last Vital Signs Temp 98.5 F 01/02/18 19:25 Pulse 117 H 01/02/18 21:27 Resp 24 01/02/18 21:27 BP 190/109 H 01/02/18 21:27 Pulse Ox 100 01/02/18 21:27 - Medical History PMH: Anemia, Anxiety, Depression, Diabetes, HTN, Seizures Surgical History: Endoscopy - [facility] Procedures EXCISION OF STOMACH, ENDO, DIAGN (11/02/16) EXCISION OF STOMACH, PYLORUS, ENDO, DIAGN (03/10/17) GROUP PSYCHOTHERAPY (06/09/17) INDIVIDUAL PSYCHOTHERAPY, SUPPORTIVE (06/09/17) INSERTION OF INFUSION DEV INTO L SUBCLAV VEIN, PERC APPROACH (10/28/16) INSERTION OF INFUSION DEV INTO SUP VENA CAVA, PERC APPROACH (11/23/17) INTRODUCTION OF NUTRITIONAL INTO PERIPH VEIN, PERC APPROACH (10/16/16) MEDICATION MANAGEMENT (06/09/17) ULTRASONOGRAPHY OF SUPERIOR VENA CAVA, GUIDANCE (10/16/16) Family History: States: Unknown Family Hx - Social History Hx Alcohol Use: No Hx Substance Use: No - Immunization History Hx Tetanus Toxoid Vaccination: No Hx Influenza Vaccination: Yes Hx Pneumococcal Vaccination: Yes Review Of Systems Constitutional: Positive for: Other (after seizure). Negative for: Fever, Chills ENT: Negative for: Throat Pain Cardiovascular: Negative for: Chest Pain Respiratory: Negative for: Shortness of Breath Gastrointestinal: Positive for: Nausea, Vomiting, Abdominal Pain, Hematemesis Genitourinary: Negative for: Dysuria Musculoskeletal: Negative for: Back Pain Skin: Negative for: Rash Neurological: Positive for: Seizures Psych: Positive for: Anxiety Physical Exam - Physical Exam Appears: Non-toxic, In Acute Distress, Other (insulin pump on left side) Skin: Warm, Dry Head: Normacephalic Eye(s): bilateral: Normal Inspection Oral Mucosa: Moist Tongue: Normal Appearing Neck: Trachea Midline, Supple Chest: Symmetrical Cardiovascular: Rhythm Regular Respiratory: No Rales, No Rhonchi, No Wheezing Gastrointestinal/Abdominal: Soft, Tenderness, No Distention, No Guarding, No Rebound Back: Normal Inspection Extremity: Normal ROM (x4) Extremity: Bilateral: Atraumatic, Normal Color And Temperature Pulses: Left Dorsalis Pedis: Normal, Right Dorsalis Pedis: Normal Neurological/Psych: Oriented x3, Normal Speech, Normal Cognition Gait: Steady ED Course And Treatment - Laboratory Results Result Diagrams: 01/02/18 19:31 01/02/18 20:00 O2 Sat by Pulse Oximetry: 100 Pulse Ox Interpretation: Normal Progress Note: 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 Plans: -- VBG. -- blood work. -- drug screen. -- protonix inj. -- zofran inj. -- IV fluids. -- glucose POC. -- HCG. -- occult blood, stool STAT. -- UA Critical Care Time - Critical Care Note Total Time (in mins): 30 Documented critical care: time excludes all time spent performing seperately billable procedures. Disposition Discussed With : Reza King Jr. Comment: accepted the pt on his service and took over the care at 10:24 PM Doctor Will See Patient In The: ED Counseled Patient/Family Regarding: Studies Performed, Diagnosis - Disposition Disposition: HOSPITALIZED Disposition Time: 19:26 Condition: GUARDED - POA Present On Arrival: Poor Glycemic Control - Clinical Impression Clinical Impression: Seizure, Diabetes mellitus, Nausea and vomiting, ARF (acute renal failure), Hematemesis with nausea - Scribe Statement The provider has reviewed the documentation as recorded by the Jw Prabhakar Do Provider Attestation: All medical record entries made by the Jw were at my direction and personally dictated by me. I have reviewed the chart and agree that the record accurately reflects my personal performance of the history, physical exam, medical decision making, and the department course for this patient. I have also personally directed, reviewed, and agree with the discharge instructions and disposition. Decision To Admit - Pt Status Changed To: Hospital Disposition Of: Inpatient - Admit Certification Admit to Inpatient:: After my assessment, the patient will require hospitalization for at least two midnights. This is because of the severity of symptoms shown, intensity of services needed, and/or the medical risk in this patient being treated as an outpatient. - InPatient: Physician Admission Certification: I certify that this patient requires 2 or more midnights of care for the following reason:: After my assessment, the patient will require hospitalization for at least two midnights. This is because of the severity of symptoms shown, intensity of services needed, and/or the medical risk in this patient being treated as an outpatient. - . Bed Request Type: Telemetry Admitting Physician: Reza King Jr. Patient Diagnosis: Seizure, Diabetes mellitus, Nausea and vomiting, ARF (acute renal failure), Hematemesis with nausea
[2018-01-02] MEDS ORDERED: Sodium Chloride 0.9% 1,000 ML IV ONE (19:29)
[2018-01-02] MEDS ORDERED: Sodium Chloride 0.9% 1,000 ML ONE (19:58)
[2018-01-02 20:10] LABS: BASO # 0.1 K/uL (0.0-0.2); EOS # 0.1 K/uL (0.0-0.7); EOS % 1.1 % (0.0-4.0); HEMOGLOBIN 11.3 g/dL (11.0-16.0); LYMPH # 2.9 K/uL (1.0-4.3); LYMPH % 25.1 % (20.0-40.0); MEAN CELL VOLUME 87.1 fL (81.0-99.0); MEAN CORPUSCULAR HEMOGLOBIN 28.3 pg (27.0-31.0); MEAN CORPUSCULAR HGB CONC 32.5 g/dL (33.0-37.0); MEAN PLATELET VOLUME 10.8 fL (7.2-11.7); MONO # 0.7 K/uL (0.0-0.8); MONO % 6.1 % (0.0-10.0); NEUT # 7.6 K/uL (1.8-7.0); NEUT % 66.7 % (50.0-75.0); NRBC % 0.1 % (0.0-2.0); RBC 3.98 Mil/uL (3.80-5.20); RED CELL DISTRIBUTION WIDTH 14.4 % (11.5-14.5); WHITE BLOOD COUNT 11.5 K/uL (4.8-10.8)
[2018-01-02 20:11] LABS: VENOUS BLOOD GAS BASE EXCESS -1.9 mmol/L (0.0-2.0); VENOUS BLOOD GAS PCO2 46 mmHg (40-60); VENOUS BLOOD GAS PO2 35 mm/Hg (30-55); VENOUS BLOOD PH 7.33 (7.32-7.43)
[2018-01-02 20:35] LABS: ALB/GLOB RATIO 1.3 (1.0-2.1); ALBUMIN 3.5 g/dL (3.5-5.0); ALT/SGPT 19 U/L (9-52); AST/SGOT 16 U/L (14-36); BLOOD UREA NITROGEN 49 mg/dL (7-17); CALCIUM 8.7 mg/dl (8.6-10.4); GFR NON-AFRICAN AMERICAN 10
[2018-01-02] MEDS ORDERED: Sodium Chloride 0.45% 1,000 ML IV SCH (23:30)
--- NOTE | 2018-01-03 00:03 | CP.PCM.HP ---
History of Present Illness - History of Present Illness History of Present Illness: PGY-1 History and Physical for Dr. King Patient is a 27 year old female with PMHx seizure/pseudoseizure disorder, htn, DM I on insulin pump, and renal insufficiency who presents to ED with diffuse abdominal pain and vomiting. Patient's mother states that the patient was fine this morning, and around 7pm this evening, the patient began to have intractable vomiting and diffuse abdominal pain. Abdominal pain is diffuse and does not radiate to the back, flank, or shoulders. The vomit has been dark appearing. Upon arrival to the ED the patient had a seizure and urinated herself. She does not report any postictal symptoms, but has continued to vomit. Patient denies any headaches, dizziness, confusion, dysuria, increased urgency, or frequency. PMHx: IDDM, HTN, Seizure/partial seizure disorder, chronic renal insufficiency PSHx: Unknown Fam Hx: Unknown PMD: Dr. King Code: Full Code Present on Admission - Present on Admission Any Indicators Present on Admission: No Review of Systems - Constitutional Constitutional: absent: Chills, Fever - EENT Eyes: absent: Blurred Vision, Pain Ears: absent: Dizziness Nose/Mouth/Throat: absent: Sore Throat - Cardiovascular Cardiovascular: absent: Chest Pain, Leg Edema, Paroxysmal Nocturnal Dyspnea, Pedal Edema - Respiratory Respiratory: absent: Cough, Dyspnea - Gastrointestinal Gastrointestinal: Abdominal Pain, Nausea, Vomiting. absent: Diarrhea Additional comments: +dark vomitus - Musculoskeletal Musculoskeletal: absent: Back Pain, Neck Pain, Stiffness, Tingling - Neurological Neurological: absent: Dizziness, Numbness Past Patient History - Infectious Disease Hx of Infectious Diseases: None - Past Medical History & Family History Past Medical History?: Yes - Past Social History Smoking Status: Never Smoked - CARDIAC Hx Hypertension: Yes - PULMONARY Hx Respiratory Disorders: No - NEUROLOGICAL Hx Seizures: Yes - HEENT Hx HEENT Problems: Yes Other/Comment: blurred vision both eyes uses eyeglasses - RENAL Hx Chronic Kidney Disease: No - ENDOCRINE/METABOLIC Hx Endocrine Disorders: Yes Hx Diabetes Mellitus Type 2: Yes (on insulin pump) - HEMATOLOGICAL/ONCOLOGICAL Hx Anemia: Yes - INTEGUMENTARY Hx Dermatological Problems: No - MUSCULOSKELETAL/RHEUMATOLOGICAL Hx Falls: Yes - GASTROINTESTINAL Hx Gastrointestinal Disorders: Yes (SEE COMMENT) Other/Comment: gastroparesis - GENITOURINARY/GYNECOLOGICAL Hx Genitourinary Disorders: No - PSYCHIATRIC Hx Anxiety: Yes Hx Depression: Yes Hx Substance Use: No - SURGICAL HISTORY Hx Surgeries: No - ANESTHESIA Hx Anesthesia: Yes Hx Anesthesia Reactions: No Hx Malignant Hyperthermia: No Meds Allergies/Adverse Reactions: Allergies Allergy/AdvReac Type Severity Reaction Status Date / Time No Known Allergies Allergy Verified 01/02/18 19:30 Physical Exam - Head Exam Head Exam: ATRAUMATIC, NORMOCEPHALIC - Eye Exam Eye Exam: EOMI, Normal appearance - ENT Exam ENT Exam: Mucous Membranes Moist - Respiratory Exam Respiratory Exam: Clear to Auscultation Bilateral, NORMAL BREATHING PATTERN. absent: Rhonchi, Wheezes - Cardiovascular Exam Cardiovascular Exam: REGULAR RHYTHM, RRR, +S1, +S2 - GI/Abdominal Exam GI & Abdominal Exam: Normal Bowel Sounds, Soft, Tenderness. absent: Distended, Firm, Rebound, Rigid Additional comments: +diffuse abdominal tenderness to palpation, worse in epigastric region - Extremities Exam Extremities exam: Positive for: normal inspection. Negative for: pedal edema - Neurological Exam Neurological exam: Alert, CN II-XII Intact, Oriented x3 - Skin Skin Exam: Dry, Intact, Normal Color, Warm Results - Vital Signs Recent Vital Signs: Last Vital Signs Temp 98.5 F 01/02/18 19:25 Pulse 117 H 01/02/18 21:27 Resp 24 01/02/18 21:27 BP 190/109 H 01/02/18 21:27 Pulse Ox 100 01/02/18 22:32 - Labs Result Diagrams: 01/02/18 19:31 01/02/18 20:00 Labs: Laboratory Results - last 24 hr 01/02/18 01/02/18 01/02/18 19:31 19:53 20:00 WBC 11.5 H RBC 3.98 Hgb 11.3 Hct 34.7 MCV 87.1 MCH 28.3 MCHC 32.5 L RDW 14.4 Plt Count 302 D MPV 10.8 Neut % (Auto) 66.7 Lymph % (Auto) 25.1 [place] % (Auto) 6.1 Eos % (Auto) 1.1 Baso % (Auto) 1.0 Neut # (Auto) 7.6 H Lymph # (Auto) 2.9 [place] # (Auto) 0.7 Eos # (Auto) 0.1 Baso # (Auto) 0.1 pO2 VBG pH VBG pCO2 VBG HCO3 VBG Total CO2 VBG O2 Sat (Calc) VBG Base Excess VBG Potassium Sodium 141 Chloride 107 Glucose Lactate FiO2 Potassium 4.8 Carbon Dioxide 24 Anion Gap 16 BUN 49 H Creatinine 5.0 H Est GFR ( Amer) 12 Est GFR (Non-Af Amer) 10 Random Glucose 192 H Calcium 8.7 Total Bilirubin 0.3 AST 16 ALT 19 Alkaline Phosphatase 196 H D Total Protein 6.2 L Albumin 3.5 D Globulin 2.7 Albumin/Globulin Ratio 1.3 Venous Blood Potassium Stool Occult Blood Positive H Alcohol, Quantitative < 10 B-Hydroxybutyrate 0.57 H 01/02/18 20:00 WBC RBC Hgb Hct MCV MCH MCHC RDW Plt Count MPV Neut % (Auto) Lymph % (Auto) [place] % (Auto) Eos % (Auto) Baso % (Auto) Neut # (Auto) Lymph # (Auto) [place] # (Auto) Eos # (Auto) Baso # (Auto) pO2 35 VBG pH 7.33 VBG pCO2 46 VBG HCO3 22.5 VBG Total CO2 25.7 VBG O2 Sat (Calc) 73.1 H VBG Base Excess -1.9 L VBG Potassium 4.5 Sodium 141.0 Chloride 108.0 H Glucose 178 H Lactate 1.4 FiO2 21.0 Potassium Carbon Dioxide Anion Gap BUN Creatinine Est GFR ( Amer) Est GFR (Non-Af Amer) Random Glucose Calcium Total Bilirubin AST ALT Alkaline Phosphatase Total Protein Albumin Globulin Albumin/Globulin Ratio Venous Blood Potassium 4.5 Stool Occult Blood Alcohol, Quantitative B-Hydroxybutyrate Assessment & Plan - Assessment and Plan (Free Text) Assessment: 1) Abdominal Pain/Vomiting/Melena * Zofran 15 mg IVP q6 * .5 NS @200 cc/hr 2) Seizure/Partial Seizure disorder * Telemetry monitoring 3) IDDM * ISS 4) PPx * Heparin 5,000 U SC q12 Assessment/Plan Discussed w/ Dr. King
[2018-01-03] MEDS: Metoprolol 1 mg/ml Inj IVP PRN ×2 (03:22→10:35)
[2018-01-03] MEDS: Sodium Chloride 0.45% 1,000 ML IV SCH ×3 (03:23→18:36)
[2018-01-03] MEDS ORDERED: DiphenhydrAMINE 50 mg/ml Inj IVP STA ×2 (05:51→23:54)
[2018-01-03 07:05] LABS: SQUAMOUS EPITHIAL 1 /hpf (0-5); URINE BACTERIA OCC (<OCC); URINE BILIRUBIN NEGATIVE (NEGATIVE); URINE BLOOD NEGATIVE (NEGATIVE); URINE CLARITY Clear (Clear); URINE COLOR Straw (YELLOW); URINE GLUCOSE (UA) 3+ mg/dL (Normal); URINE LEUKOCYTE ESTERASE NEG Leu/uL (Negative); URINE PROTEIN 3+ mg/dL (NEGATIVE); URINE UROBILINOGEN NORMAL mg/dL (0.2-1.0)
[2018-01-03 07:12] LABS: HCG,QUALITATIVE URINE NEGATIVE (NEGATIVE)
[2018-01-03 07:14] LABS: BARBITURATES, UR NEGATIVE (NEGATIVE); BENZODIAZEPINES, UR NEGATIVE (NEGATIVE); OPIATES, UR NEGATIVE (NEGATIVE); PHENCYCLIDINE, UR NEGATIVE (NEGATIVE)
[2018-01-03] MEDS ORDERED: (Novolin R) Insulin Human Regular 100 units/ml vial SC SCH (07:30)
[2018-01-03] MEDS: (Novolin R) Insulin Human Regular 100 units/ml vial SC SCH ×4 (07:38→22:32)
[2018-01-03] MEDS ORDERED: Sodium Chloride 0.9% 500 ML IV ONE (07:38)
--- NOTE | 2018-01-03 19:19 | CP.PCM.PN ---
Subjective - Date & Time of Evaluation Date of Evaluation: 01/03/18 Time of Evaluation: 19:13 - Subjective Subjective: PGY1 Progress Note for Dr. King Patient seen and examined at bedside. As per nursing staff, patient slept through most of the night, but kept going to the bathroom to vomit. Per nurse, patient was screaming throughout the day that she would like to eat and was refusing her insulin. Her blood glucose was > 500 earlier in the AM and was managed per ISS protocol. Upon examination patient was spitting up clear mucus in a bucket. Patient demanding her pain medication in-between vomiting episodes. Patient refused answer questions and continued to demand pain medication. Objective - Vital Signs/Intake and Output Vital Signs (last 24 hours): Temp Pulse Resp BP Pulse Ox 97.4 F L 117 H 22 188/106 H 98 01/03/18 15:00 01/03/18 16:00 01/03/18 15:00 01/03/18 15:00 01/03/18 15:00 Intake and Output: 01/03/18 01/04/18 18:59 06:59 Intake Total 1250 Balance 1250 - Medications Medications: Current Medications Acetaminophen (Tylenol 325mg Tab) 650 mg PO Q6 PRN PRN Reason: Fever >100.4 F Heparin Sodium (Porcine) (Heparin) 5,000 units SC Q12 [facility] Last Admin: 01/03/18 10:33 Dose: 5,000 units Sodium Chloride (Sodium Chloride 0.45%) 1,000 mls @ 125 mls/hr IV .Q8H [facility] Stop: 01/03/18 23:29 Last Admin: 01/03/18 18:36 Dose: 125 mls/hr Insulin Human Regular (Novolin R) 0 unit SC ACHS [facility] PRN Reason: Protocol Last Admin: 01/03/18 16:33 Dose: 6 units Metoprolol Tartrate (Lopressor) 2.5 mg IVP Q6 PRN PRN Reason: Systolic Blood Pressure Last Admin: 01/03/18 10:35 Dose: 2.5 mg Ondansetron HCl (Zofran Inj) 4 mg IVP Q6 [facility] Last Admin: 01/03/18 18:21 Dose: 4 mg - Labs Labs: 01/02/18 19:31 01/02/18 20:00 - ENT Exam Additional comments: - Head Exam Head Exam: ATRAUMATIC, NORMOCEPHALIC - Eye Exam Eye Exam: EOMI, Normal appearance - ENT Exam ENT Exam: Mucous Membranes Moist - Respiratory Exam Respiratory Exam: Clear to Auscultation Bilateral, NORMAL BREATHING PATTERN. absent: Rhonchi, Wheezes - Cardiovascular Exam Cardiovascular Exam: REGULAR RHYTHM, RRR, +S1, +S2 - GI/Abdominal Exam GI & Abdominal Exam: Normal Bowel Sounds, Soft, Tenderness. absent: Distended, Firm, Rebound, Rigid Additional comments: +diffuse abdominal tenderness to palpation, worse in epigastric region. - Extremities Exam Extremities exam: Positive for: normal inspection. Negative for: pedal edema - Neurological Exam Neurological exam: Alert, CN II-XII Intact, Oriented x3 - Skin Skin Exam: Dry, Intact, Normal Color, Warm Assessment and Plan - Assessment and Plan (Free Text) Plan: 1) Dehydration secondary to intractable vomiting likely secondary to underlying gastroparesis * Nephrology (Dr. Nieves consulted, recommendations appreciated) * Clonidine 0.1mg TD Q7D * Lebetalol 20mg IVP Q2H PRN * * BUN=49, Cr=5 * Zofran 4 mg IVP q6 * 1/2 NS @125 cc/hr * Monitor electrolytes with AM labs * Replete as needed 2) History of Pseudo-Seizure Disorder * Telemetry monitoring * BRENDA monitoring 3) IDDM * ISS * ACHS * Hypoglycemic protocol * Monitor Abnormal Urinalysis * LE=negative Nitrite=Negative Bacteria=Occ glucose=3+ Protein=3+ * patient asymptomatic * mild leukocytosis * Afebrile 4) PPx * Heparin 5,000 U SC q12 Assessment/Plan Discussed w/ Dr. Christine Schaeffer PGY1
[2018-01-03] MEDS: Labetalol 5mg/ml (4ml) IVP PRN (21:52)
[2018-01-04 01:31] VITALS: RESP 20
--- NOTE | 2018-01-04 03:24 | CON ---
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 Nephrology being consulted for acute kidney injury. History taken mainly from mother as the patient vomiting at the time of encounter. Per mother, the patient had been doing well with her insulin pump with sugars being well controlled and tolerating diet well. Of note, the patient was seen in our office just last week without any complaints at that time. Per mother, she was visiting a friend for two days and reportedly had onset of symptoms after eating some barbecued chicken. The patient otherwise has been vomiting today bilious fluid. The patient also noted to drink juice despite being kept n.p.o. The patient with history of self-induced vomiting and concern for pain seeking behavior. PAST MEDICAL HISTORY: As above. FAMILY HISTORY: Grandmother with diabetes. SOCIAL HISTORY: Denies tobacco, alcohol use. REVIEW OF SYSTEMS: Limited due to the patient being in distress. PHYSICAL EXAMINATION: VITAL SIGNS: This afternoon, blood pressure 188/106, heart rate 120, respirations 22, temperature 97.4, O2 saturation 98% on room air. GENERAL: The patient vomiting in front of me bilious material. HEENT: Normal appearance. No obvious swelling of neck. RESPIRATORY: Lungs clear to auscultation bilaterally. No rales or rhonchi. No wheezes. No respiratory distress. CARDIOVASCULAR: Heart sounds S1 and S2 normal. The patient has tachycardia, otherwise regular rhythm. GI: Abdomen soft although the patient removing my hand when trying to palpate. EXTREMITIES: No lower leg edema. SKIN: No cyanosis. NEUROLOGIC: No resting tremor. PSYCHIATRIC: The patient is not agitated. LABORATORY DATA: From yesterday WBC 11.5, hemoglobin 11.3, hematocrit 34.7, platelets 302. Chemistry panel: Sodium 141, potassium 4.8, chloride 107, bicarb 24, BUN 49, creatinine 5, glucose 192, calcium 8.7, AST 16, ALT 19, albumin 3.5. UA 3+ blood, 3+ protein, 3+ glucose. ASSESSMENT AND PLAN: 1. Acute kidney injury on chronic kidney disease likely prerenal etiology in the setting of gastrointestinal losses due to persistent vomiting; however, renal function has been progressively worsening in the setting of diabetic nephropathy with nephrotic syndrome. The patient's recent blood work showed serum creatinine in low 3s within the last week corresponding to estimated glomerular filtration rate of about 16 mL/minute. We had extensive discussion with the patient one week ago regarding her failing kidneys and the need to plan for end-stage renal disease. The patient was insistent at the time and she does not want to end up on dialysis. The patient was referred for kidney transplant; however, it was emphasized that this process will take sometime. Currently, the patient with relatively stable electrolytes and volume status. No indication to initiate dialysis at this time. Agree with IV fluids with half NS at 125 mL/hour. Need to avoid all nephrotoxic agent. Nonsteroidal antiinflammatory drugs is absolutely contraindicated at this late stage of chronic kidney disease as they can shut down kidney function substantially and precipitate need for dialysis. 2. Hypertensive urgency. The patient with uncontrolled blood pressure in the setting of persistent vomiting and being in distress; unable to take p.o. medications. Had done well previously on clonidine patch; however, this will take sometime to work. For now we will start labetalol 20 mg IV push every 2 hours for systolic blood pressure greater than 170. Starting clonidine patch 0.1 mg. angiotensin receptor tanika was already discontinued last week, cannot start at this late stage of chronic kidney disease. 3. Anemia, hemoglobin relatively stable although the patient may be somewhat hemoconcentrated, should repeat CBC after the patient is well hydrated. 4. Gastroparesis flare. The patient demanding pain medication as noted above cannot give any nonsteroidal antiinflammatory drugs if morphine is being considered should be given sparingly as the metabolites can accumulate in advanced renal failure. Thank you for this referral. We will be following. Migue Nieves MD
[2018-01-04] MEDS: (Novolin R) Insulin Human Regular 100 units/ml vial SC SCH ×4 (06:37→21:31)
[2018-01-04] MEDS ORDERED: Sodium Chloride 0.9% 1,000 ML IV SCH ×2 (08:30→10:12)
--- NOTE | 2018-01-04 08:45 | CP.PCM.PN ---
<Moris Perales - Last Filed: 01/04/18 13:31> Subjective - Date & Time of Evaluation Date of Evaluation: 01/04/18 Time of Evaluation: 08:40 - Subjective Subjective: Elieser Perales PGY2 - Nephrology Progress Note Dr. Nieves Patient seen and evaluated this AM. Patient complains of diffuse pain and requests IV pain medication to be given. Reports from nursing indicate patient has placed herself on the floor with visible shaking that was ceased upon request by nursing staff. Nursing also indicating that patient is self inducing vomiting at a high frequency this AM. Patient is noted to have bucket with what appears to be ~500 mL of clear emesis with minor food particles and without bile or blood at bedside. Patient continues to redirect interview to her pain and request for pain medication. Patient is unspecific regarding her symptoms. Objective - Vital Signs/Intake and Output Vital Signs (last 24 hours): Temp Pulse Resp BP Pulse Ox 98.7 F 114 H 20 158/76 H 97 01/03/18 23:30 01/04/18 01:19 01/03/18 23:30 01/03/18 23:30 01/03/18 23:30 Intake and Output: 01/04/18 01/04/18 06:59 18:59 Intake Total 1979 Balance 1979 - Medications Medications: Current Medications Acetaminophen (Tylenol 325mg Tab) 650 mg PO Q6 PRN PRN Reason: Fever >100.4 F Clonidine HCl (Catapres Tts1 0.1 Mg/24 Hr) 1 patch TD Q7D@1000 [facility] Last Admin: 01/03/18 20:56 Dose: 1 patch Heparin Sodium (Porcine) (Heparin) 5,000 units SC Q12 [facility] Last Admin: 01/03/18 21:04 Dose: 5,000 units Sodium Chloride (Sodium Chloride 0.9%) 1,000 mls @ 150 mls/hr IV .Q6H40M [facility] Last Admin: 01/04/18 08:38 Dose: 150 mls/hr Insulin Human Regular (Novolin R) 0 unit SC ACHS [facility] PRN Reason: Protocol Last Admin: 01/04/18 06:37 Dose: 12 units Labetalol HCl (Trandate) 20 mg IVP Q2H PRN PRN Reason: Systolic Blood Pressure Last Admin: 01/03/18 21:52 Dose: 20 mg Ondansetron HCl (Zofran Inj) 4 mg IVP Q6 [facility] Last Admin: 01/04/18 05:13 Dose: 4 mg - Labs Labs: 01/02/18 19:31 01/02/18 20:00 - Constitutional Appears: Non-toxic - Head Exam Head Exam: ATRAUMATIC, NORMOCEPHALIC - Eye Exam Eye Exam: EOMI, PERRL - ENT Exam ENT Exam: Mucous Membranes Dry - Neck Exam Neck Exam: Full ROM - Respiratory Exam Respiratory Exam: Clear to Ausculation Bilateral, NORMAL BREATHING PATTERN - Cardiovascular Exam Cardiovascular Exam: REGULAR RHYTHM, +S1, +S2 - GI/Abdominal Exam GI & Abdominal Exam: Soft. absent: Firm, Rigid, Tenderness - Extremities Exam Extremities Exam: Full ROM. 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 Nephrology is consulted for acute on chronic injury. Plan: Acute on Chronic Kidney injury - Etiology: GI losses 2/2 persistent vomiting - Chronic etiology of kidney disease secondary to diabetic nephropathy with nephrotic syndrome - Patient electrolyte and volume status stable - IVF NS @ 100mL/Hr - Avoid nephrotoxic agents, especially NSAIDS Hypertension - Patient originally presenting with HTN urgency - BP continues to be elevated - Continue with clonidine patch 0.1mg - Avoid ARB 2/2 late kidney disease Anemia - Likely 2/2 CKD, ACD - H/H stable - Continue to monitor Gastroparesis Flare - Avoid NSAIDS for pain control - Morphine to be given sparingly Patient seen, case and plan discussed with attending, Dr. Nieves <Migue Nieves - Last Filed: 01/05/18 08:14> Objective - Vital Signs/Intake and Output Vital Signs (last 24 hours): Temp Pulse Resp BP Pulse Ox 98.5 F 105 H 20 156/100 H 99 01/04/18 17:37 01/05/18 03:32 01/05/18 03:32 01/05/18 06:39 01/05/18 03:32 Intake and Output: 01/05/18 01/05/18 06:59 18:59 Intake Total 1600 Balance 1600 - Medications Medications: Current Medications Acetaminophen (Tylenol 325mg Tab) 650 mg PO Q6 PRN PRN Reason: Fever >100.4 F Clonidine HCl (Catapres Tts1 0.1 Mg/24 Hr) 1 patch TD Q7D@1000 [facility] Last Admin: 01/03/18 20:56 Dose: 1 patch Heparin Sodium (Porcine) (Heparin) 5,000 units SC Q12 [facility] Last Admin: 01/04/18 21:26 Dose: Not Given Sodium Chloride (Sodium Chloride 0.45%) 1,000 mls @ 200 mls/hr IV .Q5H [facility] Last Admin: 01/05/18 06:43 Dose: Not Given Insulin Glargine (Lantus) 7 unit SC HS [facility] Last Admin: 01/05/18 02:46 Dose: 7 unit Insulin Human Regular (Novolin R) 0 unit SC ACHS [facility] PRN Reason: Protocol Last Admin: 01/05/18 06:44 Dose: 12 units Labetalol HCl (Trandate) 20 mg IVP Q2H PRN PRN Reason: Systolic Blood Pressure Last Admin: 01/04/18 17:05 Dose: 20 mg Ondansetron HCl (Zofran Inj) 4 mg IVP Q6 PRN PRN Reason: Nausea/Vomiting - Labs Labs: 01/04/18 11:38 01/04/18 11:38 Attending/Attestation - Attestation I have personally seen and examined this patient.: Yes I have fully participated in the care of the patient.: Yes I have reviewed all pertinent clinical information, including history, physical exam and plan: Yes Notes (Text): Patient seen and examined; I agree with the resident's note as above with the following additions/edits: Patient with CKD IV/V secondary to DM nephropathy w/ nephrotic syndrome, admitted with recurrent gastroparesis flare; Complains of pain but seen resting comfortably at beginning of encounter; again with reports of self-induced vomiting; GABRIELA on advanced CKD, likely pre-renal etiology, however, at this late stage of CKD, patient has very limited residual renal function and even hemodynamic fluctuations may be enough to precipitate need for initiation of HD; currently with stable volume and electrolyte status, no need for HD currently; agree with continuing IVF; HTN control fluctuating; continue clonidine patch 0.1 mg (placed yesterday) and labetalol 20 mg IVP prn for SBP > 160, though goal is not to normalize BP; Anemia relatively mild but worsening; monitor; will consider EPO once hgb < 10 and BP controlled;
[2018-01-04] MEDS: Labetalol 5mg/ml (4ml) IVP PRN ×2 (08:55→17:05)
[2018-01-04] MEDS ORDERED: (Novolin R) Insulin Human Regular 100 units/ml vial SC ONE (10:06)
[2018-01-04 10:58] VITALS: O2SAT 99
[2018-01-04 11:54] LABS: BASO % 0.1 % (0.0-2.0); HEMOGLOBIN 10.1 g/dL (11.0-16.0); LYMPH # 0.7 K/uL (1.0-4.3); LYMPH % 3.3 % (20.0-40.0); MEAN CELL VOLUME 88.7 fL (81.0-99.0); MEAN CORPUSCULAR HEMOGLOBIN 28.3 pg (27.0-31.0); MEAN PLATELET VOLUME 10.9 fL (7.2-11.7); MONO # 0.4 K/uL (0.0-0.8); MONO % 1.9 % (0.0-10.0); NEUT # 20.2 K/uL (1.8-7.0); NEUT % 94.7 % (50.0-75.0); PLATELET COUNT 350 K/uL (130-400); RBC 3.57 Mil/uL (3.80-5.20); RED CELL DISTRIBUTION WIDTH 14.2 % (11.5-14.5); WHITE BLOOD COUNT 21.3 K/uL (4.8-10.8)
[2018-01-04 12:32] LABS: BANDS 2 % (0-2); LYMPHOCYTE 2 % (20-40); NEUTROPHIL 96 % (50-75); TOTAL CELLS COUNTED 100
[2018-01-04 12:33] LABS: PLATELET ESTIMATE NORMAL (NORMAL)
[2018-01-04 12:35] LABS: HYPOCHROMIC SLIGHT
[2018-01-04 13:04] LABS: ALB/GLOB RATIO 1.3 (1.0-2.1); ALBUMIN 3.4 g/dL (3.5-5.0); CALCIUM 8.4 mg/dl (8.6-10.4)
[2018-01-04] MEDS: Sodium Chloride 0.45% 1,000 ML IV SCH ×2 (14:31→18:27)
--- NOTE | 2018-01-04 16:21 | CP.PCM.PN ---
Subjective - Date & Time of Evaluation Date of Evaluation: 01/04/18 Time of Evaluation: 07:30 - Subjective Subjective: PGY 1 Medicine Progress Note for Dr. King. Patient seen and examined at bedside. Patient is in no acute distress. Overnight patient was reported as forcefully vomiting by inserting fingers into mouth. Additionally, POC glucose readings were >500 multiple times. Patient refused morning AM labs initially. Patient also has been drinking apple juice persistently. Patient states she is having pain in the epigastric region and needs pain medications immediately. Additionally patient is stating she cannot stop vomiting. Patient denies chest pain, shortness of breath, headaches, constipation, hematuria, dysuria. Objective - Vital Signs/Intake and Output Vital Signs (last 24 hours): Temp Pulse Resp BP Pulse Ox 98.7 F 105 H 20 144/85 99 01/04/18 08:00 01/04/18 12:23 01/04/18 08:00 01/04/18 11:35 01/04/18 08:00 Intake and Output: 01/04/18 01/04/18 06:59 18:59 Intake Total 1979 1230 Balance 1979 1230 - Medications Medications: Current Medications Acetaminophen (Tylenol 325mg Tab) 650 mg PO Q6 PRN PRN Reason: Fever >100.4 F Clonidine HCl (Catapres Tts1 0.1 Mg/24 Hr) 1 patch TD Q7D@1000 [facility] Last Admin: 01/03/18 20:56 Dose: 1 patch Heparin Sodium (Porcine) (Heparin) 5,000 units SC Q12 [facility] Last Admin: 01/04/18 10:13 Dose: 5,000 units Sodium Chloride (Sodium Chloride 0.45%) 1,000 mls @ 200 mls/hr IV .Q5H [facility] Last Admin: 01/04/18 14:31 Dose: 200 mls/hr Potassium Chloride (Potassium Chloride 20 Meq/100 Ml) 20 meq in 100 mls @ 50 mls/hr IVPB ONCE ONE Stop: 01/04/18 18:13 Insulin Human Regular (Novolin R) 0 unit SC ACHS [facility] PRN Reason: Protocol Last Admin: 01/04/18 12:38 Dose: 12 units Labetalol HCl (Trandate) 20 mg IVP Q2H PRN PRN Reason: Systolic Blood Pressure Last Admin: 01/04/18 08:55 Dose: 20 mg Ondansetron HCl (Zofran Inj) 4 mg IVP Q6 [facility] Last Admin: 01/04/18 13:00 Dose: 4 mg - Labs Labs: 01/04/18 11:38 01/04/18 11:38 - Constitutional Appears: No Acute Distress - Head Exam Head Exam: NORMAL INSPECTION, NORMOCEPHALIC - Eye Exam Eye Exam: EOMI, Normal appearance - ENT Exam ENT Exam: Mucous Membranes Dry - Respiratory Exam Respiratory Exam: Clear to Ausculation Bilateral, NORMAL BREATHING PATTERN. absent: Rales, Rhonchi, Wheezes - Cardiovascular Exam Cardiovascular Exam: +S1, +S2. absent: Irregular Rhythm, Murmur - GI/Abdominal Exam GI & Abdominal Exam: Soft, Normal Bowel Sounds. absent: Firm, Guarding, Rigid - Extremities Exam Extremities Exam: Full ROM, Normal Inspection. 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 Nieves - Chronic etiology of kidney disease secondary to diabetic nephropathy with nephrotic syndrome - Patient electrolyte and volume status stable - Avoid nephrotoxic agents, especially NSAIDS - continue to monitor - 1/2 NS @ 200 cc/hr 3) IDDM - blood sugars >500 units in AM 01/04 - Anion Gap 23, Serum Glucose 645 - 1/2 NS 200 cc/hr - 36 total units Novolin required in AM (3 accucheck readings greater than 500 each time after 12 units given each time) - Lantus 7units HS (@ home 15 units but patient currently NPO 2/2 to NPO for gastroperesis) - ISS - High - Accuchecks ACHS - Hypoglycemic protocol - Monitor - Informed nurses no sugary drinks/ juices as patient is persistently asking 4) Leukocytosis - WBC 11.3 - > 21.3 - Patient afebrile @ 98s - Tachycardic in 100s likely 2/2 to volume depletion - Ordered Blood cultures, urine cultures, VBG - on 1/2 NS 200cc/hr 4) History of Pseudo-Seizure Disorder - Telemetry monitoring - BRENDA monitoring 5) Hx of HTN - Home medication Cozaar 20 mg PO held 2/2 to GABRIELA - Clonidine 0.1mg Patch TD Q7D - Labetalol 20mg IVP Q2H PRN - Continue to monitor 6) Anemia - Likely 2/2 CKD - H/H stable at 10.1/31.7 - Continue to monitor 6) PPx DVT: Heparin 5,000 U SC q12 D/w Dr. Christine Wood PGY1
[2018-01-04 17:57] VITALS: TEMP 98.5
[2018-01-04] MEDS: (Lantus) Insulin Glargine, Recombinant SC SCH (21:30)
[2018-01-05] MEDS: Sodium Chloride 0.45% 1,000 ML IV SCH ×2 (01:00→06:43)
[2018-01-05] MEDS: (Lantus) Insulin Glargine, Recombinant SC SCH (02:46)
--- NOTE | 2018-01-05 06:26 | CP.PCM.PN ---
Objective - Vital Signs/Intake and Output Vital Signs (last 24 hours): Temp Pulse Resp BP Pulse Ox 98.5 F 105 H 20 192/105 H 99 01/04/18 17:37 01/05/18 03:32 01/05/18 03:32 01/05/18 03:32 01/05/18 03:32 Intake and Output: 01/04/18 01/05/18 18:59 06:59 Intake Total 1230 1600 Balance 1230 1600 - Medications Medications: Current Medications Acetaminophen (Tylenol 325mg Tab) 650 mg PO Q6 PRN PRN Reason: Fever >100.4 F Clonidine HCl (Catapres Tts1 0.1 Mg/24 Hr) 1 patch TD Q7D@1000 [facility] Last Admin: 01/03/18 20:56 Dose: 1 patch Heparin Sodium (Porcine) (Heparin) 5,000 units SC Q12 [facility] Last Admin: 01/04/18 21:26 Dose: Not Given Sodium Chloride (Sodium Chloride 0.45%) 1,000 mls @ 200 mls/hr IV .Q5H [facility] Last Admin: 01/04/18 18:27 Dose: Not Given Insulin Glargine (Lantus) 7 unit SC HS [facility] Last Admin: 01/05/18 02:46 Dose: 7 unit Insulin Human Regular (Novolin R) 0 unit SC ACHS [facility] PRN Reason: Protocol Last Admin: 01/04/18 21:31 Dose: Not Given Labetalol HCl (Trandate) 20 mg IVP Q2H PRN PRN Reason: Systolic Blood Pressure Last Admin: 01/04/18 17:05 Dose: 20 mg Ondansetron HCl (Zofran Inj) 4 mg IVP Q6 PRN PRN Reason: Nausea/Vomiting - Labs Labs: 01/04/18 11:38 01/04/18 11:38
[2018-01-05 06:40] VITALS: BP 156/100
[2018-01-05] MEDS: (Novolin R) Insulin Human Regular 100 units/ml vial SC SCH (06:44)
--- NOTE | 2018-01-05 08:42 | CP.PCM.PN ---
Subjective - Date & Time of Evaluation Date of Evaluation: 01/05/18 Time of Evaluation: 08:38 - Subjective Subjective: Elieser Perales PGY2 - Nephrology Progress Note Dr. Nieves Patient seen and examined this AM. Patient noted to be amublating around hospital floor. She requests to sign herself out AMA. Patient is AAOx3. Patient complains of non specific pain like symptoms and generalized weakness. Objective - Vital Signs/Intake and Output Vital Signs (last 24 hours): Temp Pulse Resp BP Pulse Ox 98.5 F 105 H 20 156/100 H 99 01/04/18 17:37 01/05/18 03:32 01/05/18 03:32 01/05/18 06:39 01/05/18 03:32 Intake and Output: 01/05/18 01/05/18 06:59 18:59 Intake Total 1600 Balance 1600 - Medications Medications: Current Medications Acetaminophen (Tylenol 325mg Tab) 650 mg PO Q6 PRN PRN Reason: Fever >100.4 F Clonidine HCl (Catapres Tts1 0.1 Mg/24 Hr) 1 patch TD Q7D@1000 [facility] Last Admin: 01/03/18 20:56 Dose: 1 patch Heparin Sodium (Porcine) (Heparin) 5,000 units SC Q12 [facility] Last Admin: 01/04/18 21:26 Dose: Not Given Sodium Chloride (Sodium Chloride 0.45%) 1,000 mls @ 200 mls/hr IV .Q5H [facility] Last Admin: 01/05/18 06:43 Dose: Not Given Insulin Glargine (Lantus) 7 unit SC HS [facility] Last Admin: 01/05/18 02:46 Dose: 7 unit Insulin Human Regular (Novolin R) 0 unit SC ACHS [facility] PRN Reason: Protocol Last Admin: 01/05/18 06:44 Dose: 12 units Labetalol HCl (Trandate) 20 mg IVP Q2H PRN PRN Reason: Systolic Blood Pressure Last Admin: 01/04/18 17:05 Dose: 20 mg Ondansetron HCl (Zofran Inj) 4 mg IVP Q6 PRN PRN Reason: Nausea/Vomiting - Labs Labs: 01/04/18 11:38 01/04/18 11:38 - Constitutional Appears: No Acute Distress - Head Exam Head Exam: ATRAUMATIC, NORMOCEPHALIC - Eye Exam Eye Exam: EOMI, PERRL - ENT Exam ENT Exam: Mucous Membranes Dry - Respiratory Exam Respiratory Exam: Clear to Ausculation Bilateral, NORMAL BREATHING PATTERN. absent: Rhonchi, Wheezes - Cardiovascular Exam Cardiovascular Exam: REGULAR RHYTHM, +S1, +S2 - GI/Abdominal Exam GI & Abdominal Exam: Soft, Normal Bowel Sounds - Extremities Exam Extremities Exam: Full ROM. 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 Nephrology is consulted for acute on chronic injury Plan: Acute on Chronic Kidney injury stage IV/V - Etiology: GI losses 2/2 persistent vomiting - Chronic etiology of kidney disease secondary to diabetic nephropathy with nephrotic syndrome - Patient electrolyte and volume status stable - recommend IVF NS @ 100mL/Hr - Avoid nephrotoxic agents, especially NSAIDS Hypertension - Patient originally presenting with HTN urgency - BP continues to be elevated - Continue with clonidine patch 0.1mg - Labetalol 20mg IVP prn SBP >160 - Avoid ARB 2/2 late kidney disease Anemia - Likely 2/2 CKD, ACD - H/H stable - Consider EPO once Hbg <10 and BP more controlled Patient signed herself out AMA. Patient was instructed to follow up with Dr. Nieves in his office immediately. Patient was warned about the further progression of her renal disease and the potential for dialysis. Patient was in understanding of risks explained to her. Patient verbalized understanding regarding risks and importance of follow up. Patient case and plan discussed with attending, Dr. Nieves
[2018-01-05 08:45] VITALS: PULSE 111
--- NOTE | 2018-01-05 15:39 | CP.PCM.DIS ---
Provider - Provider Date of Admission: 01/02/18 22:22 Attending physician: Reza King Jr, MD Primary care physician: Dr. King Consults: Dr. Nieves (nephrology) Time Spent in preparation of Discharge (in minutes): 45 Diagnosis - Discharge Diagnosis (1) Diabetic gastroparesis Status: Chronic Comment: Pt signed out AMA (2) Pseudoseizure Status: Chronic Comment: Pt signed out AMA (3) Munchausen syndrome Status: Acute Comment: Pt signed out AMA (4) ARF (acute renal failure) Status: Acute Comment: Pt signed out AMA Hospital Course - Lab Results Lab Results: Most Recent Lab Values WBC 21.3 K/uL (4.8-10.8) H D 01/04/18 11:38 RBC 3.57 Mil/uL (3.80-5.20) L 01/04/18 11:38 Hgb 10.1 g/dL (11.0-16.0) L 01/04/18 11:38 Hct 31.7 % (34.0-47.0) L 01/04/18 11:38 MCV 88.7 fL (81.0-99.0) 01/04/18 11:38 MCH 28.3 pg (27.0-31.0) 01/04/18 11:38 MCHC 32.0 g/dL (33.0-37.0) L 01/04/18 11:38 RDW 14.2 % (11.5-14.5) 01/04/18 11:38 Plt Count 350 K/uL (130-400) 01/04/18 11:38 MPV 10.9 fL (7.2-11.7) 01/04/18 11:38 Neut % (Auto) 94.7 % (50.0-75.0) H 01/04/18 11:38 Lymph % (Auto) 3.3 % (20.0-40.0) L 01/04/18 11:38 [place] % (Auto) 1.9 % (0.0-10.0) 01/04/18 11:38 Eos % (Auto) 0.0 % (0.0-4.0) 01/04/18 11:38 Baso % (Auto) 0.1 % (0.0-2.0) 01/04/18 11:38 Neut # (Auto) 20.2 K/uL (1.8-7.0) H 01/04/18 11:38 Lymph # (Auto) 0.7 K/uL (1.0-4.3) L 01/04/18 11:38 [place] # (Auto) 0.4 K/uL (0.0-0.8) 01/04/18 11:38 Eos # (Auto) 0.0 K/uL (0.0-0.7) 01/04/18 11:38 Baso # (Auto) 0.0 K/uL (0.0-0.2) 01/04/18 11:38 Neutrophils % (Manual) 96 % (50-75) H 01/04/18 11:38 Band Neutrophils % 2 % (0-2) 01/04/18 11:38 Lymphocytes % (Manual) 2 % (20-40) L 01/04/18 11:38 Monocytes % (Manual) TEST NOT PERFORMED 01/04/18 11:38 Platelet Estimate Normal (NORMAL) 01/04/18 11:38 Hypochromasia (manual) Slight 01/04/18 11:38 pO2 35 mm/Hg (30-55) 01/02/18 20:00 VBG pH 7.33 (7.32-7.43) 01/02/18 20:00 VBG pCO2 46 mmHg (40-60) 01/02/18 20:00 VBG HCO3 22.5 mmol/L 01/02/18 20:00 VBG Total CO2 25.7 mmol/L (22-28) 01/02/18 20:00 VBG O2 Sat (Calc) 73.1 % (40-65) H 01/02/18 20:00 VBG Base Excess -1.9 mmol/L (0.0-2.0) L 01/02/18 20:00 VBG Potassium 4.5 mmol/L (3.6-5.2) 01/02/18 20:00 Sodium 141.0 mmol/l (132-148) 01/02/18 20:00 Chloride 108.0 mmol/L (98-107) H 01/02/18 20:00 Glucose 178 mg/dl (65-105) H 01/02/18 20:00 Lactate 1.4 mmol/L (0.7-2.1) 01/02/18 20:00 FiO2 21.0 % 01/02/18 20:00 Sodium 139 mmol/L (132-148) 01/04/18 11:38 Potassium 3.8 mmol/L (3.6-5.2) 01/04/18 11:38 Chloride 99 mmol/L (98-107) 01/04/18 11:38 Carbon Dioxide 21 mmol/L (22-30) L 01/04/18 11:38 Anion Gap 23 (10-20) H 01/04/18 11:38 BUN 63 mg/dL (7-17) H 01/04/18 11:38 Creatinine 5.6 mg/dL (0.7-1.2) H 01/04/18 11:38 Est GFR ( Amer) 11 01/04/18 11:38 Est GFR (Non-Af Amer) 9 01/04/18 11:38 POC Glucose (mg/dL) > 500 mg/dL (65-110) H* 01/05/18 06:33 Random Glucose 645 mg/dL (65-105) H* D 01/04/18 11:38 Calcium 8.4 mg/dl (8.6-10.4) L 01/04/18 11:38 Phosphorus 7.0 mg/dL (2.5-4.5) H 01/04/18 11:38 Magnesium 2.4 mg/dL (1.6-2.3) H 01/04/18 11:38 Total Bilirubin 0.4 mg/dL (0.2-1.3) 01/04/18 11:38 AST 15 U/L (14-36) 01/04/18 11:38 ALT 25 U/L (9-52) 01/04/18 11:38 Alkaline Phosphatase 183 U/L (38-126) H 01/04/18 11:38 Total Protein 6.0 g/dL (6.3-8.3) L 01/04/18 11:38 Albumin 3.4 g/dL (3.5-5.0) L 01/04/18 11:38 Globulin 2.7 gm/dL (2.2-3.9) 01/04/18 11:38 Albumin/Globulin Ratio 1.3 (1.0-2.1) 01/04/18 11:38 Venous Blood Potassium 4.5 mmol/L (3.6-5.2) 01/02/18 20:00 Urine Color Straw (YELLOW) 01/03/18 06:52 Urine Clarity Clear (Clear) 01/03/18 06:52 Urine pH 7.0 (5.0-8.0) 01/03/18 06:52 Ur Specific [place] 1.014 (1.003-1.030) 01/03/18 06:52 Urine Protein 3+ mg/dL (NEGATIVE) H 01/03/18 06:52 Urine Glucose (UA) 3+ mg/dL (Normal) H 01/03/18 06:52 Urine Ketones Trace mg/dL (NEGATIVE) 01/03/18 06:52 Urine Blood Negative (NEGATIVE) 01/03/18 06:52 Urine Nitrate Negative (NEGATIVE) 01/03/18 06:52 Urine Bilirubin Negative (NEGATIVE) 01/03/18 06:52 Urine Urobilinogen Normal mg/dL (0.2-1.0) 01/03/18 06:52 Ur Leukocyte Esterase Neg Kathy/uL (Negative) 01/03/18 06:52 Urine WBC (Auto) 4 /hpf (0-5) 01/03/18 06:52 Urine RBC (Auto) 3 /hpf (0-3) 01/03/18 06:52 Ur Squamous Epith Cells 1 /hpf (0-5) 01/03/18 06:52 Urine Bacteria Occ (<OCC) H 01/03/18 06:52 Urine HCG, Qual Negative (NEGATIVE) 01/03/18 06:52 Stool Occult Blood Positive (NEGATIVE) H 01/02/18 19:53 Urine Opiates Screen Negative (NEGATIVE) 01/03/18 06:52 Urine Methadone Screen Negative (NEGATIVE) 01/03/18 06:52 Ur Barbiturates Screen Negative (NEGATIVE) 01/03/18 06:52 Ur Phencyclidine Scrn Negative (NEGATIVE) 01/03/18 06:52 Ur Amphetamines Screen Negative (NEGATIVE) 01/03/18 06:52 U Benzodiazepines Scrn Negative (NEGATIVE) 01/03/18 06:52 U Oth Cocaine Metabols Negative (NEGATIVE) 01/03/18 06:52 U Cannabinoids Screen Positive (NEGATIVE) H 01/03/18 06:52 Alcohol, Quantitative < 10 mg/dl (0-10) 01/02/18 20:00 B-Hydroxybutyrate 0.57 mM (0.02-0.27) H 01/02/18 20:00 - Hospital Course Hospital Course: Patient is a 27 year old female with PMHx seizure/pseudoseizure disorder, htn, DM I on insulin pump, and renal insufficiency who presents to ED with diffuse abdominal pain and vomiting. Patient's mother states that the patient was fine this morning, and around 7pm this evening, the patient began to have intractable vomiting and diffuse abdominal pain. Abdominal pain is diffuse and does not radiate to the back, flank, or shoulders. The vomit has been dark appearing. Upon arrival to the ED the patient had a seizure and urinated herself. She does not report any postictal symptoms, but has continued to vomit. Patient denies any headaches, dizziness, confusion, dysuria, increased urgency, or frequency. During hospital course, patient was seen multiple times by several staff members to self induce vomiting by putting fingers into oral cavity. Patient educated to not to do so; however, patient refused and continuously attempted to vomit. Attempted to control blood sugars with insulin & diet, but patient consistently drank juices & soft beverages despite a NPO order. Patient eventually refused venous line access, blood draws and requested to sign out AMA despite abnormal blood results. Patient informed of the risks of signing out AMA but still requested to sign out. Patient signed form with nurse as witness. Patient refused physical examination by resident physician on 01/05, date of AMA. Discharge Exam - Head Exam Head Exam: ATRAUMATIC, NORMOCEPHALIC Discharge Plan - Follow Up Plan Condition: GUARDED Disposition: AGAINST MEDICAL ADVICE
== END 2018-01-05 13:04 | disposition left against medical advice (07) | DRG 533 ==
LOC: C.ER 19:17 → C.6T 22:22 → C.9E 22:22 → C.5S 01-04 00:52
PROVIDERS: ADMIT Internal Medicine; ATTEND Internal Medicine
DX: E11.43 Type 2 diabetes mellitus with diabetic autonomic (poly)neuropathy (principal); N17.9 Acute kidney failure, unspecified; E86.0 Dehydration; I12.0 Hypertensive chronic kidney disease with stage 5 chronic kidney disease or end stage renal disease; N18.5 Chronic kidney disease, stage 5; F68.10 Factitious disorder imposed on self, unspecified; K92.0 Hematemesis; K31.84 Gastroparesis; Z79.4 Long term (current) use of insulin; G40.909 Epilepsy, unspecified, not intractable, without status epilepticus; E11.22 Type 2 diabetes mellitus with diabetic chronic kidney disease; Z96.41 Presence of insulin pump (external) (internal); E11.21 Type 2 diabetes mellitus with diabetic nephropathy; I16.0 Hypertensive urgency

== ENCOUNTER 2018-04-11 08:34 | Emergency (ER) | payer MEDICAID ==
[2018-04-11 08:35] VITALS: BMI 25.6
[2018-04-11] MEDS ORDERED: Sodium Chloride 0.9% 500 ML IV ONE (08:49)
[2018-04-11 09:09] LABS: BASO # 0.1 K/uL (0.0-0.2); BASO % 1.2 % (0.0-2.0); EOS % 0.4 % (0.0-4.0); HEMOGLOBIN 10.6 g/dL (11.0-16.0); LYMPH # 1.4 K/uL (1.0-4.3); LYMPH % 21.3 % (20.0-40.0); MEAN CELL VOLUME 86.8 fL (81.0-99.0); MEAN CORPUSCULAR HEMOGLOBIN 28.6 pg (27.0-31.0); MEAN CORPUSCULAR HGB CONC 32.9 g/dL (33.0-37.0); MONO # 0.4 K/uL (0.0-0.8); MONO % 5.8 % (0.0-10.0); NEUT # 4.6 K/uL (1.8-7.0); NEUT % 71.3 % (50.0-75.0); RBC 3.7 Mil/uL (3.80-5.20); RED CELL DISTRIBUTION WIDTH 14.7 % (11.5-14.5); WHITE BLOOD COUNT 6.5 K/uL (4.8-10.8)
[2018-04-11 09:20] VITALS: TEMP 98.7
[2018-04-11 09:25] LABS: ALBUMIN 3.1 g/dL (3.5-5.0); CALCIUM 8.4 mg/dl (8.6-10.4)
--- NOTE | 2018-04-11 09:41 | C.PDOC ---
History Of Present Illness 27 y/o female, with history of insulin dependent diabetes, presents to ED for altered mental status. Patient was found in bed confused and bit her tongue, possibly had a seizure. Patients glucose was 40. Patient was given orange juice by her mother with improvement. Patient was given glucagon by EMS and became awake and alert. On arrival, patient was hypertensive and complains of dizziness and headache. Time Seen by Provider: 04/11/18 08:45 Chief Complaint (Nursing): Altered Mental Status History Per: Patient History/Exam Limitations: None Onset/Duration Of Symptoms: Hrs Past Medical History Reviewed: Historical Data, Nursing Documentation, Vital Signs Vital Signs: Last Vital Signs Temp 98.7 F 04/11/18 08:52 Pulse 85 04/11/18 09:20 Resp 13 04/11/18 09:20 BP 184/108 H 04/11/18 09:20 Pulse Ox 97 04/11/18 09:20 - Medical History PMH: Anemia, Anxiety, Depression, Diabetes, HTN, Chronic Kidney Disease, Seizures (Pseudo seizures?) Surgical History: Appendectomy, Endoscopy - [facility] Procedures EXCISION OF STOMACH, ENDO, DIAGN (11/02/16) EXCISION OF STOMACH, PYLORUS, ENDO, DIAGN (03/10/17) GROUP PSYCHOTHERAPY (06/09/17) INDIVIDUAL PSYCHOTHERAPY, SUPPORTIVE (06/09/17) INSERTION OF INFUSION DEV INTO L SUBCLAV VEIN, PERC APPROACH (10/28/16) INSERTION OF INFUSION DEV INTO SUP VENA CAVA, PERC APPROACH (11/23/17) INTRODUCTION OF NUTRITIONAL INTO PERIPH VEIN, PERC APPROACH (10/16/16) MEDICATION MANAGEMENT (06/09/17) ULTRASONOGRAPHY OF SUPERIOR VENA CAVA, GUIDANCE (10/16/16) Family History: States: No Known Family Hx - Social History Hx Tobacco Use: No Hx Alcohol Use: No (Denied by Pt) Hx Substance Use: No (Denied by Pt) - Immunization History Hx Tetanus Toxoid Vaccination: No Hx Influenza Vaccination: Yes Hx Pneumococcal Vaccination: Yes Review Of Systems Except As Marked, All Systems Reviewed And Found Negative. Neurological: Positive for: Altered Mental Status, Headache, Dizziness Physical Exam - Physical Exam Appears: Non-toxic, No Acute Distress Skin: Warm, Dry Head: Atraumatic, Normacephalic Eye(s): bilateral: Normal Inspection Oral Mucosa: Moist Neck: Normal ROM Chest: Symmetrical Cardiovascular: Rhythm Regular, No Murmur Respiratory: Normal Breath Sounds, No Rales, No Rhonchi, No Wheezing Extremity: Other (Generalized weakness) Extremity: Bilateral: Atraumatic, Normal Color And Temperature, Normal ROM Neurological/Psych: Oriented x3, Normal Speech, Normal Cognition, Normal Motor, Normal Sensation ED Course And Treatment - Laboratory Results Result Diagrams: 04/11/18 09:06 04/11/18 09:06 ECG: Interpreted By Me ECG Rhythm: Sinus Rhythm Interpretation Of ECG: No ST elevation. QT normal. Rate From EC O2 Sat by Pulse Oximetry: 97 (RA) Pulse Ox Interpretation: Normal Medical Decision Making Medical Decision Making: Plan: --CT Head --Chest X-Ray --EKG --Bloodwork --Urinalysis --Apresoline 10 mg IVP --Catapres 0.1 mg PO --IV fluids CXR normal. On re-evaluation, patient has improved and blood pressure is 150/100. 10:46AM - Discussed with Dr. King who recommended to discharge patient home. Disposition - Disposition Disposition: HOME/ ROUTINE Disposition Time: 10:50 Condition: STABLE Additional Instructions: check blood sugar at home every 4-5 h today Instructions: High Blood Pressure in Adults, Low Blood Sugar in People With Diabetes Forms: [facility] (Frisian), General Discharge Instructions - POA Present On Arrival: None - Clinical Impression Clinical Impression: Hypoglycemia, Uncontrolled hypertension - Scribe Statement The provider has reviewed the documentation as recorded by the Monoibelvis Jenkins Provider Attestation: All medical record entries made by the Scribe were at my direction and personally dictated by me. I have reviewed the chart and agree that the record accurately reflects my personal performance of the history, physical exam, medical decision making, and the department course for this patient. I have also personally directed, reviewed, and agree with the discharge instructions and disposition.
[2018-04-11 10:07] LABS: SQUAMOUS EPITHIAL 1 /hpf (0-5); URINE BACTERIA RARE (<OCC); URINE BILIRUBIN NEGATIVE (NEGATIVE); URINE BLOOD NEGATIVE (NEGATIVE); URINE CLARITY Clear (Clear); URINE COLOR Yellow (YELLOW); URINE GLUCOSE (UA) 2+ mg/dL (Normal); URINE HYALINE CAST 0-2 /lpf (0-2); URINE LEUKOCYTE ESTERASE NEG Leu/uL (Negative); URINE PROTEIN 3+ mg/dL (NEGATIVE); URINE UROBILINOGEN NORMAL mg/dL (0.2-1.0)
--- NOTE | 2018-04-11 10:50 | CT ---
Date of service: 04/11/2018 PROCEDURE: CT HEAD WITHOUT CONTRAST. HISTORY: dizziness COMPARISON: 03/28/2017 TECHNIQUE: Axial computed tomography images were obtained through the head/brain without intravenous contrast. Radiation dose: Total exam DLP = 1178.98 mGy-cm. This CT exam was performed using one or more of the following dose reduction techniques: Automated exposure control, adjustment of the mA and/or kV according to patient size, and/or use of iterative reconstruction technique. FINDINGS: HEMORRHAGE: No intracranial hemorrhage. BRAIN: No mass effect or edema. No atrophy or chronic white matter ischemic change. VENTRICLES: Unremarkable. No hydrocephalus. CALVARIUM: Unremarkable. PARANASAL SINUSES: Unremarkable as visualized. No significant inflammatory changes. MASTOID AIR CELLS: Unremarkable as visualized. No inflammatory changes. OTHER FINDINGS: None. IMPRESSION: Normal CT of the Head. No intracranial mass, hemorrhage or evidence of acute infarct.
[2018-04-11 10:53] VITALS: BP 136/97; PULSE 76; RESP 19
[2018-04-11 10:54] VITALS: O2SAT 97
--- NOTE | 2018-04-11 13:44 | RAD ---
Date of service: 04/11/2018 HISTORY: weak COMPARISON: 11/24/2017 FINDINGS: LUNGS: No active pulmonary disease. PLEURA: No significant pleural effusion identified, no pneumothorax apparent. CARDIOVASCULAR: No aortic atherosclerotic calcification present. Normal cardiac size. No pulmonary vascular congestion. OSSEOUS STRUCTURES: No significant abnormalities. VISUALIZED UPPER ABDOMEN: Normal. OTHER FINDINGS: None. IMPRESSION: No active disease.
== END 2018-04-11 11:20 | disposition home or self-care (01) ==
LOC: C.ER 08:34
DX: E11.649 Type 2 diabetes mellitus with hypoglycemia without coma (principal); I12.9 Hypertensive chronic kidney disease with stage 1 through stage 4 chronic kidney disease, or unspecified chronic kidney disease; N18.9 Chronic kidney disease, unspecified
CPT/HCPCS: 70450; 71045; 80053; 81001; 82948; 85025; 87086; 99285; J7040

== ENCOUNTER 2018-04-18 10:38 | Emergency (ER) | payer MEDICAID ==
[2018-04-18 10:38] VITALS: BMI 25.6
[2018-04-18 11:13] LABS: BASO # 0.1 K/uL (0.0-0.2); BASO % 0.9 % (0.0-2.0); EOS # 0.4 K/uL (0.0-0.7); EOS % 4.8 % (0.0-4.0); HEMOGLOBIN 10.9 g/dL (11.0-16.0); LYMPH % 23.6 % (20.0-40.0); MEAN CELL VOLUME 87.9 fL (81.0-99.0); MEAN CORPUSCULAR HEMOGLOBIN 28.2 pg (27.0-31.0); MEAN CORPUSCULAR HGB CONC 32.1 g/dL (33.0-37.0); MEAN PLATELET VOLUME 10.8 fL (7.2-11.7); MONO # 0.6 K/uL (0.0-0.8); MONO % 6.8 % (0.0-10.0); NEUT # 5.4 K/uL (1.8-7.0); NEUT % 63.9 % (50.0-75.0); RBC 3.86 Mil/uL (3.80-5.20); RED CELL DISTRIBUTION WIDTH 14.8 % (11.5-14.5); WHITE BLOOD COUNT 8.5 K/uL (4.8-10.8)
[2018-04-18 11:30] LABS: HCG,QUALITATIVE URINE NEGATIVE (NEGATIVE)
[2018-04-18 11:31] LABS: ALB/GLOB RATIO 1.1 (1.0-2.1); ALBUMIN 3.4 g/dL (3.5-5.0); CALCIUM 8.6 mg/dl (8.6-10.4)
[2018-04-18 11:39] LABS: SQUAMOUS EPITHIAL 16 /hpf (0-5); URINE BACTERIA MANY (<OCC); URINE BILIRUBIN NEGATIVE (NEGATIVE); URINE BLOOD NEGATIVE (NEGATIVE); URINE CLARITY Hazy (Clear); URINE COLOR Straw (YELLOW); URINE GLUCOSE (UA) 1+ mg/dL (Normal); URINE LEUKOCYTE ESTERASE NEG Leu/uL (Negative); URINE PROTEIN 2+ mg/dL (NEGATIVE); URINE UROBILINOGEN NORMAL mg/dL (0.2-1.0)
[2018-04-18 12:18] VITALS: BP 138/87; PULSE 72; RESP 16; TEMP 98; O2SAT 99
--- NOTE | 2018-04-18 13:31 | C.PDOC ---
History Of Present Illness 27 year old female with a history of insulin dependent diabetes presents to the ED for evaluation of low blood sugar prior to arrival. Per EMS the patients sugar was in the low 40s, EMS administered glucagon IM with improvement in sugar. The patient notes no recent changes to her insulin, which includes an insulin pump. States her last hypoglycemic episode was about 1 week ago. Denies fever, chills, cough, flu like symptoms, urinary symptoms, or any other associated symptoms. Time Seen by Provider: 04/18/18 10:49 Chief Complaint (Nursing): Altered Mental Status History Per: Patient History/Exam Limitations: None Onset/Duration Of Symptoms: Other (prior to arrival ) Current Symptoms Are (Timing): Still Present Recent travel outside of the [place]: No Past Medical History Reviewed: Historical Data, Nursing Documentation, Vital Signs Vital Signs: Last Vital Signs Temp 98.0 F 04/18/18 12:17 Pulse 72 04/18/18 12:17 Resp 16 04/18/18 12:17 BP 138/87 04/18/18 12:17 Pulse Ox 99 04/18/18 12:17 - Medical History PMH: Anemia, Anxiety, Depression, Diabetes, HTN, Chronic Kidney Disease, Seizures (Pseudo seizures?) Surgical History: Appendectomy, Endoscopy - [facility] Procedures EXCISION OF STOMACH, ENDO, DIAGN (11/02/16) EXCISION OF STOMACH, PYLORUS, ENDO, DIAGN (03/10/17) GROUP PSYCHOTHERAPY (06/09/17) INDIVIDUAL PSYCHOTHERAPY, SUPPORTIVE (06/09/17) INSERTION OF INFUSION DEV INTO L SUBCLAV VEIN, PERC APPROACH (10/28/16) INSERTION OF INFUSION DEV INTO SUP VENA CAVA, PERC APPROACH (11/23/17) INTRODUCTION OF NUTRITIONAL INTO PERIPH VEIN, PERC APPROACH (10/16/16) MEDICATION MANAGEMENT (06/09/17) ULTRASONOGRAPHY OF SUPERIOR VENA CAVA, GUIDANCE (10/16/16) Family History: States: Unknown Family Hx - Social History Hx Tobacco Use: No Hx Alcohol Use: No (Denied by Pt) Hx Substance Use: No (Denied by Pt) - Immunization History Hx Tetanus Toxoid Vaccination: No Hx Influenza Vaccination: Yes Hx Pneumococcal Vaccination: Yes Review Of Systems Except As Marked, All Systems Reviewed And Found Negative. Constitutional: Negative for: Fever, Chills ENT: Negative for: Nose Congestion, Throat Pain (sore) Cardiovascular: Positive for: Other (low blood sugar. ) Respiratory: Negative for: Cough Genitourinary: Negative for: Dysuria Physical Exam - Physical Exam Appears: Non-toxic, No Acute Distress Skin: Normal Color, Warm, Dry Head: Atraumatic, Normacephalic Eye(s): bilateral: Normal Inspection Oral Mucosa: Moist Neck: Normal ROM Chest: Symmetrical Cardiovascular: Rhythm Regular, No Murmur Respiratory: Normal Breath Sounds, No Rales, No Rhonchi, No Wheezing Gastrointestinal/Abdominal: Normal Exam, Soft, No Tenderness Extremity: Normal ROM (x4) Neurological/Psych: Oriented x3, Normal Speech, Normal Cognition ED Course And Treatment - Laboratory Results Result Diagrams: 04/18/18 10:59 04/18/18 10:59 O2 Sat by Pulse Oximetry: 99 (RA) Pulse Ox Interpretation: Normal Medical Decision Making Medical Decision Making: Plan: -Blood sent. -HCG Urine -Urinalysis -Glucose POC Progress/Update: In the ED the patient is eating, awake and alert. Re-eval: Dr. King is aware of the patient and her ED visit. Wants to see the patient in his office in 3 days. Patient informed and agrees to follow up with Dr. iKng. Patient is stable for discharge home. Prescribed Zofran. Disposition - Disposition Referrals: Reza King Jr., MD [Medical Doctor] - Disposition: HOME/ ROUTINE Disposition Time: 11:30 Condition: IMPROVED Additional Instructions: MARY JEWELL, thank you for letting us take care of you today. Your provider was Jeremy Walton DO and you were treated for LOW BLOOD SUGAR. The emergency medical care you received today was directed at your acute symptoms. If you were prescribed any medication, please fill it and take as directed. It may take several days for your symptoms to resolve. Return to the Emergency Department if your symptoms worsen, do not improve, or if you have any other problems. Please contact your doctor or call one of the physicians/clinics you have been referred to that are listed on the Patient Visit Information form that is included in your discharge packet. Bring any paperwork you were given at discharge with you along with any medications you are taking to your follow up visit. Our treatment cannot replace ongoing medical care by a primary care provider outside of the emergency department. Thank you for allowing the [facility] team to be part of your care today. Keep sugar candy with you at all times in case of another episode of low blood sugar. Follow up with Dr. King this week as scheduled for re-evaluation and further management. Prescriptions: Ondansetron ODT [Zofran ODT] 4 mg PO Q8 PRN #20 odt PRN Reason: Nausea/Vomiting Instructions: Low Blood Sugar in People With Diabetes Forms: [facility] (Taiwanese) - Clinical Impression Clinical Impression: Hypoglycemia due to type 1 diabetes mellitus - Scribe Statement The provider has reviewed the documentation as recorded by the Scribe (Paty Linn) Provider Attestation: All medical record entries made by the Scribe were at my direction and personally dictated by me. I have reviewed the chart and agree that the record accurately reflects my personal performance of the history, physical exam, medical decision making, and the department course for this patient. I have also personally directed, reviewed, and agree with the discharge instructions and disposition.
== END 2018-04-18 12:52 | disposition home or self-care (01) ==
LOC: C.ER 10:38
DX: E10.649 Type 1 diabetes mellitus with hypoglycemia without coma (principal); I12.9 Hypertensive chronic kidney disease with stage 1 through stage 4 chronic kidney disease, or unspecified chronic kidney disease; E10.22 Type 1 diabetes mellitus with diabetic chronic kidney disease; N18.9 Chronic kidney disease, unspecified; Z79.4 Long term (current) use of insulin
CPT/HCPCS: 80053; 81001; 82948; 84703; 85025; 87086; 96374; 99285; J2405

== ENCOUNTER 2018-04-28 01:44 | Inpatient (IN) | payer MEDICAID ==
--- NOTE | 2018-04-28 01:49 | C.PDOC ---
History Of Present Illness patient with hx of iddm, pseudoseizures, presents with emsis, requesting pain medication. No f/c. Has had some vomitus on her clothes. Mother at bedside and is hipaa compliant. 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 In the ed pt is aaox3. Time Seen by Provider: 04/28/18 01:48 History Per: Patient, EMS History/Exam Limitations: no limitations Onset/Duration Of Symptoms: Hrs Current Symptoms Are (Timing): Still Present Severity: Moderate Pain Scale Rating Of: 4 Reports Recently: Seen In ED, Treated By A Physician, Hospitalized Recent travel outside of the [place]: No Additional History Per: Family Past Medical History Reviewed: Historical Data, Nursing Documentation, Vital Signs - Medical History PMH: Anemia, Anxiety, Depression, Diabetes, HTN, Chronic Kidney Disease, Seizures (Pseudo seizures?) Surgical History: Appendectomy, Endoscopy - [facility] Procedures EXCISION OF STOMACH, ENDO, DIAGN (11/02/16) EXCISION OF STOMACH, PYLORUS, ENDO, DIAGN (03/10/17) GROUP PSYCHOTHERAPY (06/09/17) INDIVIDUAL PSYCHOTHERAPY, SUPPORTIVE (06/09/17) INSERTION OF INFUSION DEV INTO L SUBCLAV VEIN, PERC APPROACH (10/28/16) INSERTION OF INFUSION DEV INTO SUP VENA CAVA, PERC APPROACH (11/23/17) INTRODUCTION OF NUTRITIONAL INTO PERIPH VEIN, PERC APPROACH (10/16/16) MEDICATION MANAGEMENT (06/09/17) ULTRASONOGRAPHY OF SUPERIOR VENA CAVA, GUIDANCE (10/16/16) Family History: States: No Known Family Hx - Social History Hx Tobacco Use: No Hx Alcohol Use: No (Denied by Pt) Hx Substance Use: No (Denied by Pt) - Immunization History Hx Tetanus Toxoid Vaccination: No Hx Influenza Vaccination: Yes Hx Pneumococcal Vaccination: Yes Review Of Systems Constitutional: Negative for: Fever, Chills Eyes: Negative for: Vision Change ENT: Negative for: Throat Pain Cardiovascular: Negative for: Chest Pain Respiratory: Negative for: Shortness of Breath Gastrointestinal: Positive for: Nausea, Vomiting, Abdominal Pain Genitourinary: Negative for: Dysuria Musculoskeletal: Negative for: Back Pain Skin: Negative for: Rash Neurological: Negative for: Weakness Psych: Positive for: Anxiety Physical Exam - Physical Exam Appears: Other (in moderate discomfort) Skin: Warm, Dry Head: Normacephalic Eye(s): bilateral: Normal Inspection Oral Mucosa: Moist Neck: Supple Chest: Symmetrical Cardiovascular: Rhythm Regular (tachy) Respiratory: No Rales, No Rhonchi, No Wheezing Gastrointestinal/Abdominal: Soft, Tenderness, No Distention, No Guarding, No Rebound Back: Normal Inspection Extremity: Normal ROM Extremity: Bilateral: Atraumatic Neurological/Psych: Oriented x3 Gait: Steady ED Course And Treatment - Laboratory Results Result Diagrams: 04/28/18 01:57 04/28/18 01:57 ECG: Interpreted By Me, Viewed By Me ECG Rhythm: Sinus Tachycardia (128), Nonspecific Changes O2 Sat by Pulse Oximetry: 100 Pulse Ox Interpretation: Normal Progress Note: pt continuing to scream , requesting iv ativan. Disposition Discussed With Dr.: Reza King Jr. Comment: accepted the pt on his service and took over the care at 3:30 AM Doctor Will See Patient In The: ED Counseled Patient/Family Regarding: Studies Performed, Diagnosis - Disposition Disposition: HOSPITALIZED Disposition Time: 01:49 Condition: FAIR - POA Present On Arrival: Poor Glycemic Control - Clinical Impression Clinical Impression: Nausea and vomiting, Conversion disorder, Intractable vomiting, Diabetic ga stroparesis Decision To Admit - Pt Status Changed To: Hospital Disposition Of: Inpatient - Admit Certification Admit to Inpatient:: After my assessment, the patient will require hospitalization for at least two midnights. This is because of the severity of symptoms shown, intensity of services needed, and/or the medical risk in this patient being treated as an outpatient. - InPatient: Physician Admission Certification: I certify that this patient requires 2 or m ore midnights of care for the following reason:: After my assessment, the patient will require hospitalization for at least two midnights. This is because of the severity of symptoms shown, intensity of services needed, and/or the medical risk in this patient being treated as an outpatient. - . Bed Request Type: Regular Admitting Physician: Reza King Jr. Patient Diagnosis: Nausea and vomiting, Conversion disorder, Intractable vomiting, Diabetic gastroparesis
[2018-04-28 01:50] VITALS: BMI 25.4
[2018-04-28] MEDS ORDERED: Sodium Chloride 0.9% 2,000 ML IV ONE (01:50)
[2018-04-28 01:59] LABS: BASO # 0.1 K/uL (0.0-0.2); BASO % 1.2 % (0.0-2.0); EOS % 0.5 % (0.0-4.0); HEMOGLOBIN 12.1 g/dL (11.0-16.0); LYMPH # 1.8 K/uL (1.0-4.3); LYMPH % 22.5 % (20.0-40.0); MEAN CELL VOLUME 86.6 fL (81.0-99.0); MEAN CORPUSCULAR HEMOGLOBIN 28.6 pg (27.0-31.0); MEAN PLATELET VOLUME 9.4 fL (7.2-11.7); MONO # 0.3 K/uL (0.0-0.8); MONO % 3.2 % (0.0-10.0); NEUT # 5.9 K/uL (1.8-7.0); NEUT % 72.6 % (50.0-75.0); RBC 4.24 Mil/uL (3.80-5.20); RED CELL DISTRIBUTION WIDTH 14.5 % (11.5-14.5); WHITE BLOOD COUNT 8.1 K/uL (4.8-10.8)
[2018-04-28] MEDS ORDERED: Sodium Chloride 0.9% 2,000 ML ONE (02:01)
[2018-04-28 02:30] LABS: ALB/GLOB RATIO 1.3 (1.0-2.1); ALBUMIN 4.4 g/dL (3.5-5.0); CALCIUM 9.7 mg/dl (8.6-10.4)
[2018-04-28 02:46] LABS: VENOUS BLOOD GAS BASE EXCESS -4.8 mmol/L (0.0-2.0); VENOUS BLOOD GAS PCO2 41 mmHg (40-60); VENOUS BLOOD GAS PO2 45 mm/Hg (30-55); VENOUS BLOOD PH 7.32 (7.32-7.43)
--- NOTE | 2018-04-28 05:59 | CP.PCM.HP ---
History of Present Illness - History of Present Illness History of Present Illness: CC: Gastroparesis Patient is a 27 year old female who presents to the ED with complaints of abdominal pain and multiple episodes of non-bilious, non-bloody emesis that began this morning. Patient reports crampy abdominal pain isolated to the epigastrium, associated with acidic pains up to the back of the throat. Patient reports she was unable to tolerate anything PO today, and thus was unable to keep any home medication down for intended symptomatic relief. Patient reports she has not taken medications as prescribed/recommended. She reports her sugars have been very low, 40s-80s; pt reports using an insulin pump and entering her carbs inappropriately. Pt reports she has been taking more xanax then prescribed, nearly double the amount. Denies chest pain, SOB, diarrhea. pmhx: IDDM, hastroparesis, pseudoseizures, GABRIELA pshx: appendectomy, gastric excisions meds: norvasc, lantus, humalog, cozaar, xanax allergies; NKDA sochx: Denied Present on Admission - Present on Admission Any Indicators Present on Admission: No Review of Systems - EENT Eyes: absent: Change in Vision - Cardiovascular Cardiovascular: absent: Chest Pain, Pedal Edema - Respiratory Respiratory: absent: Cough, Dyspnea - Gastrointestinal Gastrointestinal: Abdominal Pain, Cramping (epigastrium), Vomiting - Genitourinary Genitourinary: absent: Dysuria - Menstruation Menstruation: Amenorrhea (2 years) - Psychiatric Psychiatric: Anxiety Past Patient History - Infectious Disease Hx of Infectious Diseases: None - Past Medical History & Family History Past Medical History?: Yes - Past Social History Smoking Status: Never Smoked - CARDIAC Hx Hypertension: Yes - PULMONARY Hx Respiratory Disorders: No - NEUROLOGICAL Hx Seizures: Yes (Pseudo seizures?) - HEENT Hx HEENT Problems: Yes Other/Comment: wears eyeglasses - RENAL Hx Chronic Kidney Disease: Yes - ENDOCRINE/METABOLIC Hx Endocrine Disorders: Yes Hx Diabetes Mellitus Type 2: Yes (on insulin pump) - HEMATOLOGICAL/ONCOLOGICAL Hx Anemia: Yes - INTEGUMENTARY Hx Dermatological Problems: No - MUSCULOSKELETAL/RHEUMATOLOGICAL Hx Musculoskeletal Disorders: No Hx Falls: No - GASTROINTESTINAL Hx Gastrointestinal Disorders: Yes (SEE COMMENT) Other/Comment: gastroparesis - GENITOURINARY/GYNECOLOGICAL Hx Genitourinary Disorders: No - PSYCHIATRIC Hx Anxiety: Yes Hx Depression: Yes Hx Substance Use: No (Denied by Pt) - SURGICAL HISTORY Hx Appendectomy: Yes - ANESTHESIA Hx Anesthesia: Yes Hx Anesthesia Reactions: No Hx Malignant Hyperthermia: No Meds Allergies/Adverse Reactions: Allergies Allergy/AdvReac Type Severity Reaction Status Date / Time No Known Allergies Allergy Verified 04/28/18 01:57 Physical Exam - Constitutional Appears: Non-toxic, In Acute Distress (actively inducing emesis) - Head Exam Head Exam: ATRAUMATIC, NORMAL INSPECTION, NORMOCEPHALIC - Eye Exam Eye Exam: EOMI, Normal appearance. absent: Nystagmus Pupil Exam: NORMAL ACCOMODATION, PERRL - ENT Exam ENT Exam: Mucous Membranes Moist, Normal Exam - Neck Exam Neck exam: Positive for: Normal Inspection. Negative for: Lymphadenopathy - Respiratory Exam Respiratory Exam: NORMAL BREATHING PATTERN. absent: Clear to Auscultation Bilateral, Respiratory Distress - Cardiovascular Exam Cardiovascular Exam: REGULAR RHYTHM. absent: Tachycardia - GI/Abdominal Exam GI & Abdominal Exam: Normal Bowel Sounds, Soft, Tenderness (epigastrium). absent: Distended, Rebound - Extremities Exam Extremities exam: Positive for: normal inspection. Negative for: calf tenderness, pedal edema - Neurological Exam Neurological exam: Alert, Oriented x3 - Psychiatric Exam Psychiatric exam: Anxious - Skin Skin Exam: Dry, Intact, Normal Color, Warm Additional comments: scars to face around chin and neck Results - Vital Signs Recent Vital Signs: Last Vital Signs Temp 98.2 F 04/28/18 01:52 Pulse 109 H 04/28/18 01:52 Resp 24 04/28/18 01:52 BP 195/127 H 04/28/18 01:52 Pulse Ox 100 04/28/18 03:34 - Labs Result Diagrams: 04/28/18 01:57 04/28/18 01:57 Labs: Laboratory Results - last 24 hr 04/28/18 04/28/18 04/28/18 01:57 01:57 02:28 WBC 8.1 RBC 4.24 Hgb 12.1 Hct 36.7 MCV 86.6 MCH 28.6 MCHC 33.0 RDW 14.5 Plt Count 441 H D MPV 9.4 Neut % (Auto) 72.6 Lymph % (Auto) 22.5 Taylor % (Auto) 3.2 Eos % (Auto) 0.5 Baso % (Auto) 1.2 Neut # (Auto) 5.9 Lymph # (Auto) 1.8 Taylor # (Auto) 0.3 Eos # (Auto) 0.0 Baso # (Auto) 0.1 pO2 45 VBG pH 7.32 VBG pCO2 41 VBG HCO3 20.6 VBG Total CO2 22.4 VBG O2 Sat (Calc) 82.1 H VBG Base Excess -4.8 L VBG Potassium 4.0 Glucose 184 H Lactate 1.9 Sodium 140 144.0 Potassium 4.3 Chloride 105 109.0 H Carbon Dioxide 21 L Anion Gap 18 BUN 46 H Creatinine 6.3 H Est GFR ( Amer) 10 Est GFR (Non-Af Amer) 8 Random Glucose 202 H Calcium 9.7 Total Bilirubin 0.4 AST 21 ALT 15 Alkaline Phosphatase 167 H D Total Protein 7.8 Albumin 4.4 Globulin 3.4 Albumin/Globulin Ratio 1.3 Lipase 29 Venous Blood Potassium 4.0 Assessment & Plan - Assessment and Plan (Free Text) Assessment: 27 year old female admitted for evaluation and treatment of intractable abdominal pain and vomiting and worsening renal function Plan: Abdominal pain/Vomiting -vomiting appears intentional as patient is able to stop when medication is withheld accordingly -anti-emetic, zofran prn -Camera to watch at all times -f/u UDS -liquid diet GABRIELA -Cr 6.3, up from 5.1 on last admission 04/18 -Nephrology consult, Dr. Ezequiel VANEGASDM -accuchecks achs -continue home lantus -ISS-medium -hypoglycemic protocol HTN -worsened 2/2 anxiety -continue home meds, norvasc Ppx -VTE ppx SCDs, anticoagulation not indicated -GI ppx, protonix Case discussed with Dr. King -Lauren Pinzon, PGY-1
[2018-04-28] MEDS ORDERED: Labetalol 5mg/ml (4ml) ONE (06:10)
[2018-04-28] MEDS ORDERED: Glucagon Recombinant 1 mg Inj IM PRN (06:53)
[2018-04-28] MEDS ORDERED: Sodium Chloride 0.9% 1,000 ML IV SCH (07:00)
[2018-04-28] MEDS ORDERED: Labetalol 25mg/5ml Syringe IVP ONE (07:15)
[2018-04-28] MEDS ORDERED: (Novolin R) Insulin Human Regular 100 units/ml vial ONE ×2 (08:31→12:08)
[2018-04-28] MEDS: (Novolin R) Insulin Human Regular 100 units/ml vial SC SCH ×4 (08:31→22:28)
[2018-04-28 09:24] LABS: HCG,QUALITATIVE URINE NEGATIVE (NEGATIVE)
[2018-04-28 09:27] LABS: SQUAMOUS EPITHIAL 1 /hpf (0-5); URINE BACTERIA OCC (<OCC); URINE BILIRUBIN NEGATIVE (NEGATIVE); URINE BLOOD NEGATIVE (NEGATIVE); URINE CLARITY Clear (Clear); URINE COLOR Yellow (YELLOW); URINE GLUCOSE (UA) 3+ mg/dL (Normal); URINE LEUKOCYTE ESTERASE NEG Leu/uL (Negative); URINE PROTEIN 3+ mg/dL (NEGATIVE); URINE UROBILINOGEN NORMAL mg/dL (0.2-1.0)
--- NOTE | 2018-04-28 09:42 | CP.PCM.CON ---
<Ayo Littlejohn - Last Filed: 04/28/18 14:26> History of Present Illness - History of Present Illness History of Present Illness: Nephrology consult note: Eron PGY - 2 Reason for consult: GABRIELA on CKD HPI: 27 year old female with pertinent medical history of diabetic nephropathy with nephrotic proteinuria and IDDM presents with abdominal pain associated with nausea and vomiting; patient has had admissions with the same complaints in the past. Nephrology service consulted for worsening renal function with creatinine elevated from previous admission. On interview, patient presents no urinary complaints including oliguria/anuria, burning on urination, hematuria, or flank pain. She denies having any cloudy urine. Patient only complains of pain and persistently asks for ativan and pain medications. Of note, patient states that her red emesis is 2/2 eating brady maori ice for breakfast. Review of Systems: 12 point ROS obtained and negative except as per HPI SHx: Appendectomy, Gastric Excisions MHx: IDDM, Gastroparesis, Pseudoseizures, GABRIELA Allergies: NKDA Soc Hx: Denies EtOH, Tobacco, Illicits Home Meds: Reviewed, as per MAR Family Hx: Non-contributory Past Patient History - Infectious Disease Hx of Infectious Diseases: None - Past Medical History & Family History Past Medical History?: Yes - Past Social History Smoking Status: Never Smoked - CARDIAC Hx Hypertension: Yes - PULMONARY Hx Respiratory Disorders: No - NEUROLOGICAL Hx Seizures: Yes (Pseudo seizures?) - HEENT Hx HEENT Problems: Yes Other/Comment: wears eyeglasses - RENAL Hx Chronic Kidney Disease: Yes - ENDOCRINE/METABOLIC Hx Endocrine Disorders: Yes Hx Diabetes Mellitus Type 2: Yes (on insulin pump) - HEMATOLOGICAL/ONCOLOGICAL Hx Anemia: Yes - INTEGUMENTARY Hx Dermatological Problems: No - MUSCULOSKELETAL/RHEUMATOLOGICAL Hx Musculoskeletal Disorders: No Hx Falls: No - GASTROINTESTINAL Hx Gastrointestinal Disorders: Yes (SEE COMMENT) Other/Comment: gastroparesis - GENITOURINARY/GYNECOLOGICAL Hx Genitourinary Disorders: No - PSYCHIATRIC Hx Anxiety: Yes Hx Depression: Yes Hx Substance Use: No (Denied by Pt) - SURGICAL HISTORY Hx Appendectomy: Yes - ANESTHESIA Hx Anesthesia: Yes Hx Anesthesia Reactions: No Hx Malignant Hyperthermia: No Meds Allergies/Adverse Reactions: Allergies Allergy/AdvReac Type Severity Reaction Status Date / Time No Known Allergies Allergy Verified 04/28/18 01:57 - Medications Medications: Current Medications Amlodipine Besylate (Norvasc) 5 mg PO DAILY [facility] Clonidine HCl (Catapres-Tts2 0.2 Mg/24 Hr) 1 patch TD Q7D@1000 [facility] Dextrose (Dextrose 50% Inj) 0 ml IV STAT PRN; Protocol PRN Reason: Hypoglycemia Protocol Dextrose (Glutose 15) 0 gm PO ONCE PRN; Protocol PRN Reason: Hypoglycemia Protocol Glucagon (Glucagen Diagnostic Kit) 0 mg IM STAT PRN; Protocol PRN Reason: Hypoglycemia Protocol Home Med (Insulin Lispro [Humalog (Insulin Lispro)]) 15 units SC HS [facility] Dextrose (Dextrose 5% In Water 1000 Ml) 1,000 mls @ 0 mls/hr IV .Q0M PRN; Protocol PRN Reason: Hypoglycemia Protocol Sodium Chloride (Sodium Chloride 0.9%) 1,000 mls @ 75 mls/hr IV .[id number] [facility] Last Admin: 04/28/18 08:10 Dose: 75 mls/hr Insulin Human Regular (Novolin R) 0 unit SC [facility]; Protocol Last Admin: 04/28/18 08:31 Dose: 8 units Lorazepam (Ativan) 1 mg PO BID PRN PRN Reason: GI distress Last Admin: 04/28/18 06:26 Dose: 1 mg Ondansetron HCl (Zofran Odt) 4 mg PO Q8 PRN PRN Reason: Nausea/Vomiting Last Admin: 04/28/18 08:33 Dose: 4 mg Pantoprazole Sodium (Protonix Inj) 40 mg IVP DAILY [facility] Physical Exam - Constitutional Appears: Non-toxic Additional comments: actively vomiting, red emesis - non bloody - Head Exam Head Exam: ATRAUMATIC, NORMAL INSPECTION, NORMOCEPHALIC - Eye Exam Eye Exam: EOMI, Normal appearance, PERRL Pupil Exam: NORMAL ACCOMODATION, PERRL - ENT Exam ENT Exam: Mucous Membranes Moist, Normal Exam - Neck Exam Neck exam: Positive for: Normal Inspection - Respiratory Exam Respiratory Exam: Clear to Auscultation Bilateral, NORMAL BREATHING PATTERN - Cardiovascular Exam Cardiovascular Exam: REGULAR RHYTHM - GI/Abdominal Exam GI & Abdominal Exam: Normal Bowel Sounds, Soft. absent: Tenderness - Extremities Exam Extremities exam: Positive for: normal inspection - Back Exam Back exam: NORMAL INSPECTION - Neurological Exam Neurological exam: Alert, CN II-XII Intact, Normal Gait, Oriented x3, Reflexes Normal - Psychiatric Exam Psychiatric exam: Normal Affect, Normal Mood - Skin Skin Exam: Dry, Intact, Normal Color, Warm Results - Vital Signs Recent Vital Signs: Last Vital Signs Temp 98.6 F 04/28/18 08:19 Pulse 120 H 04/28/18 08:19 Resp 20 04/28/18 08:19 BP 198/124 H 04/28/18 08:19 Pulse Ox 100 04/28/18 08:19 - Labs Result Diagrams: 04/28/18 01:57 04/28/18 01:57 Labs: Laboratory Results - last 24 hr 04/28/18 04/28/18 04/28/18 01:47 01:57 01:57 WBC 8.1 RBC 4.24 Hgb 12.1 Hct 36.7 MCV 86.6 MCH 28.6 MCHC 33.0 RDW 14.5 Plt Count 441 H D MPV 9.4 Neut % (Auto) 72.6 Lymph % (Auto) 22.5 Sterling % (Auto) 3.2 Eos % (Auto) 0.5 Baso % (Auto) 1.2 Neut # (Auto) 5.9 Lymph # (Auto) 1.8 Sterling # (Auto) 0.3 Eos # (Auto) 0.0 Baso # (Auto) 0.1 pO2 VBG pH VBG pCO2 VBG HCO3 VBG Total CO2 VBG O2 Sat (Calc) VBG Base Excess VBG Potassium Glucose Lactate Sodium 140 Potassium 4.3 Chloride 105 Carbon Dioxide 21 L Anion Gap 18 BUN 46 H Creatinine 6.3 H Est GFR ( Amer) 10 Est GFR (Non-Af Amer) 8 POC Glucose (mg/dL) 230 H Random Glucose 202 H Calcium 9.7 Total Bilirubin 0.4 AST 21 ALT 15 Alkaline Phosphatase 167 H D Total Protein 7.8 Albumin 4.4 Globulin 3.4 Albumin/Globulin Ratio 1.3 Lipase 29 Venous Blood Potassium Urine Color Urine Clarity Urine pH Ur Specific [place] Urine Protein Urine Glucose (UA) Urine Ketones Urine Blood Urine Nitrate Urine Bilirubin Urine Urobilinogen Ur Leukocyte Esterase Urine WBC (Auto) Urine RBC (Auto) Ur Squamous Epith Cells Urine Bacteria Hyaline Casts Urine HCG, Qual 04/28/18 04/28/18 04/28/18 02:28 06:05 08:08 WBC RBC Hgb Hct MCV MCH MCHC RDW Plt Count MPV Neut % (Auto) Lymph % (Auto) Sterling % (Auto) Eos % (Auto) Baso % (Auto) Neut # (Auto) Lymph # (Auto) Sterling # (Auto) Eos # (Auto) Baso # (Auto) pO2 45 VBG pH 7.32 VBG pCO2 41 VBG HCO3 20.6 VBG Total CO2 22.4 VBG O2 Sat (Calc) 82.1 H VBG Base Excess -4.8 L VBG Potassium 4.0 Glucose 184 H Lactate 1.9 Sodium 144.0 Potassium Chloride 109.0 H Carbon Dioxide Anion Gap BUN Creatinine Est GFR ( Amer) Est GFR (Non-Af Amer) POC Glucose (mg/dL) 356 H 354 H Random Glucose Calcium Total Bilirubin AST ALT Alkaline Phosphatase Total Protein Albumin Globulin Albumin/Globulin Ratio Lipase Venous Blood Potassium 4.0 Urine Color Urine Clarity Urine pH Ur Specific [place] Urine Protein Urine Glucose (UA) Urine Ketones Urine Blood Urine Nitrate Urine Bilirubin Urine Urobilinogen Ur Leukocyte Esterase Urine WBC (Auto) Urine RBC (Auto) Ur Squamous Epith Cells Urine Bacteria Hyaline Casts Urine HCG, Qual 04/28/18 09:13 WBC RBC Hgb Hct MCV MCH MCHC RDW Plt Count MPV Neut % (Auto) Lymph % (Auto) Sterling % (Auto) Eos % (Auto) Baso % (Auto) Neut # (Auto) Lymph # (Auto) Sterling # (Auto) Eos # (Auto) Baso # (Auto) pO2 VBG pH VBG pCO2 VBG HCO3 VBG Total CO2 VBG O2 Sat (Calc) VBG Base Excess VBG Potassium Glucose Lactate Sodium Potassium Chloride Carbon Dioxide Anion Gap BUN Creatinine Est GFR ( Amer) Est GFR (Non-Af Amer) POC Glucose (mg/dL) Random Glucose Calcium Total Bilirubin AST ALT Alkaline Phosphatase Total Protein Albumin Globulin Albumin/Globulin Ratio Lipase Venous Blood Potassium Urine Color Yellow Urine Clarity Clear Urine pH 7.0 Ur Specific [place] 1.011 Urine Protein 3+ H Urine Glucose (UA) 3+ H Urine Ketones Trace Urine Blood Negative Urine Nitrate Negative Urine Bilirubin Negative Urine Urobilinogen Normal Ur Leukocyte Esterase Neg Urine WBC (Auto) 2 Urine RBC (Auto) 2 Ur Squamous Epith Cells 1 Urine Bacteria Occ H Hyaline Casts 3-5 H Urine HCG, Qual Negative Assessment & Plan - Assessment and Plan (Free Text) Assessment: 27 year old female with pertinent medical history of CKD stage IV, diabetic nephropathy, and nephrotic proteinuria, presents to ED with abdominal pain associated with abdominal pain and worsening renal function (though no urinary complaints). Per laboratory review, patient's CR is elevated from her last visit, with BUN also elevated. Given her gastric losses, this GABRIELA is likely a product of pre-renal etiology. Plan: Acute on Chronic Kidney injury stage IV, likely 2/2 GI losses with pre-renal etiology - Achieve glycemic control - Avoid nephrotoxic agents, especially NSAIDS; please do not give toradol or morphine for pain - Will need to start prepping patient for HD; when patient is stabilized, vascular consult should be obtained for fistula - Recommend IVF with 1/2NS @ 150 mls/hr Diabetic Nephropathy with Nephrotic Proteinuria - Hydrate as above Hypertension - Continue with clonidine patch 0.1mg - Add labetalol 20 q6 PRN for SBP > 160 - Avoid ARB 2/2 late renal disease Hx Anemia, Likely 2/2 CKD, ACD - Epo as necessary Thank you for the consultation, we will continue to follow the patient. <Migue Nieves - Last Filed: 04/29/18 06:13> Meds - Medications Medications: Current Medications Amlodipine Besylate (Norvasc) 5 mg PO DAILY [facility] Last Admin: 04/28/18 09:42 Dose: 5 mg Clonidine HCl (Catapres-Tts2 0.2 Mg/24 Hr) 1 patch TD Q7D@1000 [facility] Last Admin: 04/28/18 11:05 Dose: 1 patch Dextrose (Dextrose 50% Inj) 0 ml IV STAT PRN; Protocol PRN Reason: Hypoglycemia Protocol Dextrose (Glutose 15) 0 gm PO ONCE PRN; Protocol PRN Reason: Hypoglycemia Protocol Glucagon (Glucagen Diagnostic Kit) 0 mg IM STAT PRN; Protocol PRN Reason: Hypoglycemia Protocol Dextrose (Dextrose 5% In Water 1000 Ml) 1,000 mls @ 0 mls/hr IV .Q0M PRN; Protocol PRN Reason: Hypoglycemia Protocol Sodium Chloride (Sodium Chloride 0.45%) 1,000 mls @ 150 mls/hr IV .[id number] [facility] Last Admin: 04/29/18 02:13 Dose: 150 mls/hr Insulin Glargine (Lantus) 15 unit SC HS [facility] Last Admin: 04/28/18 22:27 Dose: 15 u Insulin Human Regular (Novolin R) 0 unit SC [facility]; Protocol Last Admin: 04/28/18 22:28 Dose: Not Given Labetalol HCl (Trandate) 20 mg IVP Q6 PRN PRN Reason: sbp>160 Last Admin: 04/29/18 04:34 Dose: 20 mg Lorazepam (Ativan) 1 mg IVP BID PRN PRN Reason: Anxiety Last Admin: 04/29/18 02:24 Dose: 1 mg Ondansetron HCl (Zofran Inj) 4 mg IVP Q8H PRN PRN Reason: Nausea/Vomiting Last Admin: 04/28/18 19:36 Dose: 4 mg Pantoprazole Sodium (Protonix Inj) 40 mg IVP DAILY [facility] Last Admin: 04/28/18 09:42 Dose: 40 mg Results - Vital Signs Recent Vital Signs: Last Vital Signs Temp 98.8 F 04/29/18 04:00 Pulse 118 H 04/29/18 04:00 Resp 20 04/29/18 04:00 BP 205/124 H 04/29/18 04:00 Pulse Ox 98 04/29/18 04:00 - Labs Result Diagrams: 04/28/18 01:57 04/28/18 01:57 Labs: Laboratory Results - last 24 hr 04/28/18 04/28/18 04/28/18 01:47 06:05 08:08 POC Glucose (mg/dL) 230 H 356 H 354 H Urine Color Urine Clarity Urine pH Ur Specific [place] Urine Protein Urine Glucose (UA) Urine Ketones Urine Blood Urine Nitrate Urine Bilirubin Urine Urobilinogen Ur Leukocyte Esterase Urine WBC (Auto) Urine RBC (Auto) Ur Squamous Epith Cells Urine Bacteria Hyaline Casts Urine HCG, Qual Urine Opiates Screen Urine Methadone Screen Ur Barbiturates Screen Ur Phencyclidine Scrn Ur Amphetamines Screen U Benzodiazepines Scrn U Oth Cocaine Metabols U Cannabinoids Screen 04/28/18 04/28/18 04/28/18 09:13 09:13 12:01 POC Glucose (mg/dL) 310 H Urine Color Yellow Urine Clarity Clear Urine pH 7.0 Ur Specific [place] 1.011 Urine Protein 3+ H Urine Glucose (UA) 3+ H Urine Ketones Trace Urine Blood Negative Urine Nitrate Negative Urine Bilirubin Negative Urine Urobilinogen Normal Ur Leukocyte Esterase Neg Urine WBC (Auto) 2 Urine RBC (Auto) 2 Ur Squamous Epith Cells 1 Urine Bacteria Occ H Hyaline Casts 3-5 H Urine HCG, Qual Negative Urine Opiates Screen Negative Urine Methadone Screen Negative Ur Barbiturates Screen Negative Ur Phencyclidine Scrn Negative Ur Amphetamines Screen Negative U Benzodiazepines Scrn Negative U Oth Cocaine Metabols Negative U Cannabinoids Screen Negative 04/28/18 04/28/18 17:21 22:17 POC Glucose (mg/dL) 351 H 188 H Urine Color Urine Clarity Urine pH Ur Specific [place] Urine Protein Urine Glucose (UA) Urine Ketones Urine Blood Urine Nitrate Urine Bilirubin Urine Urobilinogen Ur Leukocyte Esterase Urine WBC (Auto) Urine RBC (Auto) Ur Squamous Epith Cells Urine Bacteria Hyaline Casts Urine HCG, Qual Urine Opiates Screen Urine Methadone Screen Ur Barbiturates Screen Ur Phencyclidine Scrn Ur Amphetamines Screen U Benzodiazepines Scrn U Oth Cocaine Metabols U Cannabinoids Screen Attending/Attestation - Attestation I have personally seen and examined this patient.: Yes I have fully participated in the care of the patient.: Yes I have reviewed all pertinent clinical information: Yes Notes (Text): Patient seen and examined; I agree with the resident's note as above with the following additions/edits: 27 yo F w/ pmh of htn, DM w/ gastroparesis, CKD IV/V secondary to biopsy proven diabetic nephropathy w/ nephrotic syndrome, admitted with yet another gastropa resis flare with persistent vomiting, nephrology being consulted for acute kidney injury; Patient well known to our service, seen last month at [facility] during admission with similar problems; symptoms this time started on day before presentation with patient unable to pinpoint any inciting factor (previously, some dietary indiscretion has been the culprit); she does report low sugars lately and had external glucose monitor placed on her by outpatient airway controller recently; Current GABRIELA likely of pre-renal etiology with labs showing that patient is volume contracted (hemoconcentrated and elevated serum albumin for patient whose baseline albumin is <3.0); mild metabolic acidosis noted, otherwise stable electrolyte status; baseline serum creatinine is in low 3's (corresponding to eGFR in mid-teens); patient is otherwise being prepared for impending ESRD; has been referred to vascular surgery for AVF creation and has been referred to [facility] for kidney-pancreas transplant (has initial appointments for both coming up soon - delayed due to patient's recurrent admissions); Hypertensive CKD with everely hypertensive readings again seen as has been the case during patient's previous presentations; will restart clonidine patch 0.2 mg in addition to amlodipine 5 mg; should avoid HERLINDA inhibitors/ARB at this late stage of CKD (benefit for nephrotic syndrome outweighed by risk of blunting renal autoregulation which patient is dependent upon especially given her propensity to become volume depleted); Anemia of CKD, being masked by being hemo-concentrated; will need to hold off on EPO until BP is well controlled; will check iron studies; -Change IVF to 1/2NS at 150 cc/hr; -Avoid all nephrotoxic agents (especially NSAIDS for pain); -If primary team feels opiates are necessary for pain, should avoid frequent morphine dosing as metabolites will accumulate in renal failure; -If patient is clinically improved by tomorrow, should ask vascular surgery for eval for AVF creation (to expedite processs); Thank you for this referral, we will be following closely.
[2018-04-28 09:46] LABS: BARBITURATES, UR NEGATIVE (NEGATIVE); BENZODIAZEPINES, UR NEGATIVE (NEGATIVE); OPIATES, UR NEGATIVE (NEGATIVE); PHENCYCLIDINE, UR NEGATIVE (NEGATIVE)
--- NOTE | 2018-04-28 10:22 | CP.PCM.PN ---
Subjective - Date & Time of Evaluation Date of Evaluation: 04/28/18 Time of Evaluation: 10:20 - Subjective Subjective: Surya Mena PGY1 Progress Note for Dr. King Pt was examined at bedside this morning. She reports continuation of her abdominal pain and nausea. She says she has been vomiting clear substance. Pt reports the abdominal pain began last night. She denies any diarrhea or blood in the stool. Pt report last bowel movement was yesterday. Mother is with pt at bedside. Pt denies chest pain, shortness of breath, dizziness, fever, chills, dysuria. Objective - Vital Signs/Intake and Output Vital Signs (last 24 hours): Temp Pulse Resp BP Pulse Ox 98.6 F 120 H 20 198/124 H 100 04/28/18 08:19 04/28/18 08:19 04/28/18 08:19 04/28/18 08:19 04/28/18 08:19 - Medications Medications: Current Medications Amlodipine Besylate (Norvasc) 5 mg PO DAILY [facility] Last Admin: 04/28/18 09:42 Dose: 5 mg Clonidine HCl (Catapres-Tts2 0.2 Mg/24 Hr) 1 patch TD Q7D@1000 [facility] Dextrose (Dextrose 50% Inj) 0 ml IV STAT PRN; Protocol PRN Reason: Hypoglycemia Protocol Dextrose (Glutose 15) 0 gm PO ONCE PRN; Protocol PRN Reason: Hypoglycemia Protocol Glucagon (Glucagen Diagnostic Kit) 0 mg IM STAT PRN; Protocol PRN Reason: Hypoglycemia Protocol Home Med (Insulin Lispro [Humalog (Insulin Lispro)]) 15 units SC HS [facility] Dextrose (Dextrose 5% In Water 1000 Ml) 1,000 mls @ 0 mls/hr IV .Q0M PRN; Protocol PRN Reason: Hypoglycemia Protocol Sodium Chloride (Sodium Chloride 0.9%) 1,000 mls @ 75 mls/hr IV .[id number] [facility] Last Admin: 04/28/18 08:10 Dose: 75 mls/hr Insulin Human Regular (Novolin R) 0 unit SC ACHS [facility]; Protocol Last Admin: 04/28/18 08:31 Dose: 8 units Lorazepam (Ativan) 1 mg PO BID PRN PRN Reason: GI distress Last Admin: 04/28/18 06:26 Dose: 1 mg Ondansetron HCl (Zofran Odt) 4 mg PO Q8 PRN PRN Reason: Nausea/Vomiting Last Admin: 04/28/18 08:33 Dose: 4 mg Pantoprazole Sodium (Protonix Inj) 40 mg IVP DAILY [facility] Last Admin: 04/28/18 09:42 Dose: 40 mg - Labs Labs: 04/28/18 01:57 04/28/18 01:57 - Constitutional Appears: In Acute Distress, Unkempt - Head Exam Head Exam: ATRAUMATIC, NORMOCEPHALIC Additional comments: excoriated hyperpigmented macules on the lateral forehead, malar region, and chin. likely traumatized acne scars. - Eye Exam Eye Exam: EOMI, Normal appearance, PERRL - ENT Exam ENT Exam: Mucous Membranes Moist - Neck Exam Neck Exam: Normal Inspection - Respiratory Exam Respiratory Exam: Clear to Ausculation Bilateral, NORMAL BREATHING PATTERN. absent: Rales, Rhonchi, Wheezes, Respiratory Distress - Cardiovascular Exam Cardiovascular Exam: Tachycardia, REGULAR RHYTHM, +S1, +S2. absent: Gallop, Rubs, Murmur - GI/Abdominal Exam Additional comments: pt refused abdominal exam due to extreme pain - Extremities Exam Extremities Exam: Normal Inspection. absent: Pedal Edema - Back Exam Back Exam: NORMAL INSPECTION - Neurological Exam Neurological Exam: Alert, Awake, Oriented x3 - Psychiatric Exam Psychiatric exam: Anxious - Skin Skin Exam: Normal Color Assessment and Plan - Assessment and Plan (Free Text) Assessment: 27 year old female admitted for evaluation and treatment of intractable abdominal pain and vomiting and worsening renal function Plan: Abdominal pain with vomiting - vomiting appears intentional as patient is able to stop when medication is withheld accordingly - pt attributes this to gastroparesis - zofran 4mg IV q6h PRN nausea - protonix 40mg IV daily - NS @75cc/hr - BRENDA camera - liquid diet GABRIELA - Cr 6.3, elevated from 5.1 on last admission 04/18 - BUN 46 - pt with h/o IDDM - NS @75cc/hr - Nephrology consulted, Dr. Nieves - f/u recs IDDM - accuchecks achs - ISS-medium - hypoglycemic protocol HTN - worsened 2/2 anxiety - norvasc 5mg PO daily - losartan 25mg PO daily - clonidine TD patch daily Anxiety - ativan 1mg PO BID - UDS negative Ppx - DVT: SCDs, anticoagulation not indicated - GI: protonix Liquid Diet Case discussed with Dr. King
[2018-04-28] MEDS: Sodium Chloride 0.45% 1,000 ML IV SCH ×3 (13:26→19:55)
[2018-04-28] MEDS: Labetalol 5mg/ml (4ml) IVP PRN ×2 (13:49→22:49)
[2018-04-28] MEDS: (Lantus) Insulin Glargine, Recombinant SC SCH (22:27)
[2018-04-29] MEDS: Sodium Chloride 0.45% 1,000 ML IV SCH ×2 (02:13→12:40)
--- NOTE | 2018-04-29 03:27 | CP.PCM.PCO ---
Physician Communication Note - Physician Communication Note Physician Communication Note: INTERLOCKING PAVEMENT INSTALLER for seizure like activity, pseudoseizure/drug seeking on eval.
[2018-04-29] MEDS: Labetalol 5mg/ml (4ml) IVP PRN ×2 (04:34→22:20)
[2018-04-29] MEDS: (Novolin R) Insulin Human Regular 100 units/ml vial SC SCH ×4 (08:00→22:09)
[2018-04-29] MEDS ORDERED: Labetalol 5mg/ml (4ml) IVP ONE ×2 (09:45→10:00)
--- NOTE | 2018-04-29 10:34 | CP.PCM.PN ---
Subjective - Date & Time of Evaluation Date of Evaluation: 04/29/18 Time of Evaluation: 10:31 - Subjective Subjective: Surya Mena PGY1 Progress Note for Dr. King Pt was examined at bedside this morning. She reports continuation of the abdominal pain and vomiting, denying any improvement. As per nursing report, pt was found to be self-inducing the vomiting. Pt also had pseudoseizure last night as per INSIDE SALES ACCOUNT REPRESENTATIVE note. Pt refused labs this morning. Upon further discussion, pt agreed to have labs drawn. Objective - Vital Signs/Intake and Output Vital Signs (last 24 hours): Temp Pulse Resp BP Pulse Ox 98.8 F 110 H 20 214/144 H 98 04/29/18 04:00 04/29/18 09:30 04/29/18 04:00 04/29/18 09:30 04/29/18 04:00 - Medications Medications: Current Medications Amlodipine Besylate (Norvasc) 5 mg PO DAILY [facility] Last Admin: 04/29/18 09:52 Dose: 5 mg Clonidine HCl (Catapres-Tts2 0.2 Mg/24 Hr) 1 patch TD Q7D@1000 [facility] Last Admin: 04/28/18 11:05 Dose: 1 patch Dextrose (Dextrose 50% Inj) 0 ml IV STAT PRN; Protocol PRN Reason: Hypoglycemia Protocol Dextrose (Glutose 15) 0 gm PO ONCE PRN; Protocol PRN Reason: Hypoglycemia Protocol Glucagon (Glucagen Diagnostic Kit) 0 mg IM STAT PRN; Protocol PRN Reason: Hypoglycemia Protocol Dextrose (Dextrose 5% In Water 1000 Ml) 1,000 mls @ 0 mls/hr IV .Q0M PRN; Protocol PRN Reason: Hypoglycemia Protocol Sodium Chloride (Sodium Chloride 0.45%) 1,000 mls @ 150 mls/hr IV .Q6H40M [facility] Last Admin: 04/29/18 02:13 Dose: 150 mls/hr Insulin Glargine (Lantus) 15 unit SC HS [facility] Last Admin: 04/28/18 22:27 Dose: 15 u Insulin Human Regular (Novolin R) 0 unit SC ACHS [facility]; Protocol Last Admin: 04/29/18 08:00 Dose: 3 units Labetalol HCl (Trandate) 20 mg IVP Q6 PRN PRN Reason: sbp>160 Last Admin: 04/29/18 04:34 Dose: 20 mg Lorazepam (Ativan) 1 mg IVP BID PRN PRN Reason: Anxiety Last Admin: 04/29/18 09:53 Dose: 1 mg Lorazepam (Ativan) 1 mg IVP Q6H PRN PRN Reason: Anxiety Ondansetron HCl (Zofran Inj) 4 mg IVP Q8H PRN PRN Reason: Nausea/Vomiting Last Admin: 04/29/18 06:34 Dose: 4 mg Pantoprazole Sodium (Protonix Inj) 40 mg IVP DAILY [facility] Last Admin: 04/29/18 09:53 Dose: 40 mg - Labs Labs: 04/28/18 01:57 04/28/18 01:57 - Additional Findings Additional findings: - Constitutional Appears: In Acute Distress, Unkempt - Head Exam Head Exam: ATRAUMATIC, NORMOCEPHALIC Additional comments: excoriated hyperpigmented macules on the lateral forehead, malar region, and chin. likely traumatized acne scars. - Eye Exam Eye Exam: EOMI, Normal appearance, PERRL - ENT Exam ENT Exam: Mucous Membranes Moist - Neck Exam Neck Exam: Normal Inspection - Respiratory Exam Respiratory Exam: Clear to Ausculation Bilateral, NORMAL BREATHING PATTERN. absent: Rales, Rhonchi, Wheezes, Respiratory Distress - Cardiovascular Exam Cardiovascular Exam: Tachycardia, REGULAR RHYTHM, +S1, +S2. absent: Gallop, Rubs, Murmur - GI/Abdominal Exam Additional comments: pt refused abdominal exam due to feeling tired - Extremities Exam Extremities Exam: Normal Inspection. absent: Pedal Edema - Back Exam Back Exam: NORMAL INSPECTION - Neurological Exam Neurological Exam: Alert, Awake, Oriented x3 - Psychiatric Exam Psychiatric exam: Anxious - Skin Skin Exam: Normal Color Assessment and Plan - Assessment and Plan (Free Text) Assessment: 27yo F with Munchausen's, IDDM, and renal failure presenting with abdominal pain and vomiting. Vomiting seen to be self induced as well as psuedoseizures. Pt hypertensive, to be evaluated by ICU. Plan: Abdominal pain with vomiting - self-induced vomiting as seen by camera - zofran 4mg IV q6h PRN nausea - protonix 40mg IV daily - 1/2NS @150cc/hr - BRENDA camera - liquid diet GABRIELA - likely prerenal etiology - pt refused labs today, f/u new BMP - Cr 6.3 yesterday - pt with h/o IDDM - 1/2NS @150cc/hr - Pt requiring AVF for HD, as per nephro - Vascular Surgery consulted, Dr. Hines - f/u recs - Nephrology consulted, Dr. Nieves - recs appreciated Munchausen Syndrome - pt exhibiting pseudoseizures and self-induced vomiting - pt tearful and anxious, repeatedly begging for ativan - ativan 1mg IV q6h PRN anxiety, hold if pt is asleep HTN - worsened 2/2 anxiety - given labetalol 20mg IVP once - labetalol 20mg IVP q6h PRN - norvasc 5mg PO daily - losartan 25mg PO daily - clonidine TD patch daily - f/u EKG - f/u trop - Critical care consulted, Dr. Morrell - f/u recs IDDM - accuchecks achs - ISS-medium - hypoglycemic protocol Ppx - DVT: SCDs, anticoagulation not indicated - GI: protonix Liquid Diet Pt seen and case discussed with Dr. King
[2018-04-29 11:03] LABS: BASO % 0.3 % (0.0-2.0); LYMPH # 0.8 K/uL (1.0-4.3); MEAN CORPUSCULAR HEMOGLOBIN 28.5 pg (27.0-31.0); MONO # 0.4 K/uL (0.0-0.8); MONO % 3.7 % (0.0-10.0); RBC 3.43 Mil/uL (3.80-5.20)
--- NOTE | 2018-04-29 11:06 | CP.PCM.PN ---
<Jac Bauer - Last Filed: 04/29/18 12:27> Subjective - Date & Time of Evaluation Date of Evaluation: 04/29/18 Time of Evaluation: 08:00 - Subjective Subjective: Nephrology Progress note: Pt seen and examined at bedside. No acute events overnight. Patient still comaplins of abd pain with n/v. An DIFFERENTIAL SPECIALIST was called for seizure /pseudoseizure. No other complaints. 12 Point ROS performed and neg other than stated above Objective - Vital Signs/Intake and Output Vital Signs (last 24 hours): Temp Pulse Resp BP Pulse Ox 98.8 F 110 H 20 214/144 H 98 04/29/18 04:00 04/29/18 09:30 04/29/18 04:00 04/29/18 09:30 04/29/18 04:00 - Medications Medications: Current Medications Amlodipine Besylate (Norvasc) 5 mg PO DAILY [facility] Last Admin: 04/29/18 09:52 Dose: 5 mg Clonidine HCl (Catapres-Tts2 0.2 Mg/24 Hr) 1 patch TD Q7D@1000 [facility] Last Admin: 04/28/18 11:05 Dose: 1 patch Dextrose (Dextrose 50% Inj) 0 ml IV STAT PRN; Protocol PRN Reason: Hypoglycemia Protocol Dextrose (Glutose 15) 0 gm PO ONCE PRN; Protocol PRN Reason: Hypoglycemia Protocol Glucagon (Glucagen Diagnostic Kit) 0 mg IM STAT PRN; Protocol PRN Reason: Hypoglycemia Protocol Dextrose (Dextrose 5% In Water 1000 Ml) 1,000 mls @ 0 mls/hr IV .Q0M PRN; Protocol PRN Reason: Hypoglycemia Protocol Sodium Chloride (Sodium Chloride 0.45%) 1,000 mls @ 150 mls/hr IV .Q6H40M [facility] Last Admin: 04/29/18 02:13 Dose: 150 mls/hr Insulin Glargine (Lantus) 15 unit SC HS [facility] Last Admin: 04/28/18 22:27 Dose: 15 u Insulin Human Regular (Novolin R) 0 unit SC ACHS [facility]; Protocol Last Admin: 04/29/18 08:00 Dose: 3 units Labetalol HCl (Trandate) 20 mg IVP Q6 PRN PRN Reason: sbp>160 Last Admin: 04/29/18 04:34 Dose: 20 mg Lorazepam (Ativan) 1 mg IVP Q6H PRN PRN Reason: Anxiety Ondansetron HCl (Zofran Inj) 4 mg IVP Q8H PRN PRN Reason: Nausea/Vomiting Last Admin: 04/29/18 06:34 Dose: 4 mg Pantoprazole Sodium (Protonix Inj) 40 mg IVP DAILY [facility] Last Admin: 04/29/18 09:53 Dose: 40 mg - Labs Labs: 04/28/18 01:57 04/28/18 01:57 - Constitutional Appears: No Acute Distress - Head Exam Head Exam: ATRAUMATIC, NORMOCEPHALIC - Eye Exam Eye Exam: EOMI - ENT Exam ENT Exam: Mucous Membranes Moist - Respiratory Exam Respiratory Exam: Clear to Ausculation Bilateral - Cardiovascular Exam Cardiovascular Exam: REGULAR RHYTHM, +S1, +S2 - GI/Abdominal Exam GI & Abdominal Exam: Soft, Tenderness, Normal Bowel Sounds - Extremities Exam Extremities Exam: absent: Calf Tenderness, Pedal Edema - Neurological Exam Neurological Exam: Alert, Awake, Oriented x3 - Psychiatric Exam Psychiatric exam: Normal Mood Assessment and Plan - Assessment and Plan (Free Text) Assessment: 27 yo F w/ pmh of htn, DM w/ gastroparesis, 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 - impending ESRD; referred to vascular surgery for AVF creation if clinically better today - Cont clonidine patch 0.2 mg and increased amlodipine to 10 mg daily - Increased frequency of Labatolol to 20mg Q4H as needed - Avoid HERLINDA inhibitors/ARB at this late stage of CKD - Hold off on EPO until BP is well controlled - Decreased IVF to 1/2NS at 80 cc/hr; -Avoid all nephrotoxic agents (especially NSAIDS for pain); avoid frequent morphine dosing as metabolites accumulate in renal failure; Case and plan was reviewed and discussed with Dr Nieves. <Migue Nieves - Last Filed: 04/30/18 09:04> Objective - Vital Signs/Intake and Output Vital Signs (last 24 hours): Temp Pulse Resp BP Pulse Ox 98.1 F 89 20 168/110 H 100 04/29/18 23:30 04/29/18 23:30 04/29/18 23:30 04/29/18 23:30 04/29/18 23:30 Intake and Output: 04/30/18 04/30/18 06:59 18:59 Intake Total 1760 Balance 1760 - Medications Medications: Current Medications Amlodipine Besylate (Norvasc) 5 mg PO DAILY [facility] Last Admin: 04/29/18 09:52 Dose: 5 mg Clonidine HCl (Catapres-Tts2 0.2 Mg/24 Hr) 1 patch TD Q7D@1000 [facility] Last Admin: 04/28/18 11:05 Dose: 1 patch Dextrose (Dextrose 50% Inj) 0 ml IV STAT PRN; Protocol PRN Reason: Hypoglycemia Protocol Last Admin: 04/30/18 05:43 Dose: 50 ml Dextrose (Glutose 15) 0 gm PO ONCE PRN; Protocol PRN Reason: Hypoglycemia Protocol Last Admin: 04/30/18 04:57 Dose: 15 gm Glucagon (Glucagen Diagnostic Kit) 0 mg IM STAT PRN; Protocol PRN Reason: Hypoglycemia Protocol Dextrose (Dextrose 5% In Water 1000 Ml) 1,000 mls @ 0 mls/hr IV .Q0M PRN; Protocol PRN Reason: Hypoglycemia Protocol Sodium Chloride (Sodium Chloride 0.45%) 1,000 mls @ 80 mls/hr IV .[id number] [facility] Last Admin: 04/30/18 01:11 Dose: 80 mls/hr Insulin Glargine (Lantus) 15 unit SC HS [facility] Last Admin: 04/29/18 22:13 Dose: 15 u Insulin Human Regular (Novolin R) 0 unit SC ACHS [facility]; Protocol Last Admin: 04/29/18 22:09 Dose: Not Given Labetalol HCl (Trandate) 20 mg IVP Q4H PRN PRN Reason: sbp>160 Last Admin: 04/29/18 22:20 Dose: 20 mg Lorazepam (Ativan) 1 mg IVP Q6H PRN PRN Reason: Anxiety Last Admin: 04/29/18 22:20 Dose: 1 mg Ondansetron HCl (Zofran Inj) 4 mg IVP Q8H PRN PRN Reason: Nausea/Vomiting Last Admin: 04/29/18 06:34 Dose: 4 mg Pantoprazole Sodium (Protonix Inj) 40 mg IVP DAILY [facility] Last Admin: 04/29/18 09:53 Dose: 40 mg - Labs Labs: 04/29/18 10:56 04/30/18 07:20 Attending/Attestation - Attestation I have personally seen and examined this patient.: Yes I have fully participated in the care of the patient.: Yes I have reviewed all pertinent clinical information, including history, physical exam and plan: Yes Notes (Text): Patient seen and examined; I agree with the resident's note as above with the following additions/edits: Patient with very brittle DM, CKD IV/V, admitted with gastroparesis flare, GABRIELA; Continues to vomit, has hysterical behavior, yet another pseudoseizure type episode; BP severely uncontrolled as has been seen on multiple previous admissions (much better controlled once symptoms resolve); Our goal is primarily to get patient back to her baseline CKD status and avoid having to dialyze her via catheter; should also avoid all in-dwelling venous catheters to avoid complications that can have long line teamster consequences in terms of her longevity as an impending HD patient; difficulty in maintaining IV access and even peripheral blood draws well known; was discussed with IR last month regarding having port-a-cath placed for this purpose but IR advised against it due to risk for complications; -continue IVF, decreasing 1/2NS to 80 cc/hr (to avoid provoking salt-sensitive nature of htn, although patient is still considerably intravascularly volume depleted); -continue clonidine patch 0.2 mg; -labetaolol 20mg q4h prn for SBP > 160; -avoid all nephrotoxic agents (especially NSAIDS); -f/u with vascular surgery regarding AVF creation (multiple admissions are hindering the process, need to get it done at first chance); consider keeping patient over weekend to optimize her and get it done on Thursday);
[2018-04-29 11:16] LABS: MEAN CELL VOLUME 86.4 fL (81.0-99.0); MEAN PLATELET VOLUME 9.8 fL (7.2-11.7); NEUT # 10.7 K/uL (1.8-7.0); RED CELL DISTRIBUTION WIDTH 14.4 % (11.5-14.5); WHITE BLOOD COUNT 12.1 K/uL (4.8-10.8)
[2018-04-29 11:17] LABS: ALB/GLOB RATIO 1.3 (1.0-2.1); ALBUMIN 3.6 g/dL (3.5-5.0); CALCIUM 8.6 mg/dl (8.6-10.4); PLATELET COUNT 345 K/uL (130-400)
[2018-04-29 11:18] LABS: HEMOGLOBIN 9.8 g/dL (11.0-16.0)
[2018-04-29 12:14] LABS: BANDS 1 % (0-2); LYMPHOCYTE 6 % (20-40); MONOCYTE 2 % (0-10); NEUTROPHIL 91 % (50-75); PLATELET ESTIMATE NORMAL (NORMAL); TOTAL CELLS COUNTED 100
[2018-04-29 12:15] LABS: BURR CELLS SLIGHT; HYPOCHROMIC SLIGHT; POIKILOCYTOSIS SLIGHT
[2018-04-29 12:36] LABS: TROPONIN I 0.028 ng/mL (0.00-0.120)
--- NOTE | 2018-04-29 15:26 | CP.PCM.CON ---
History of Present Illness - History of Present Illness History of Present Illness: Vascular Surgery: Dr. Hines Patient is 27 year old female with PMHx of IDDM, diabetic nephropathy, HTN, and depression who presented to the ED yesterday for persistent abdominal pain and nonbilious emesis. Per the patient, the symptoms began yesterday morning. She denies any mitigating or exacerbating factors. The pain is located in her epigastrum, and does not radiate anywhere else. She describes her pain as a "fireball sensation" in her stomach and states is 10/10 in severity. Her symptoms have not improved since admission. Pt states that she only started being compliant with her medications starting this year & admits to having similar complaints in the past. Pt denies fevers/chills, chest pain or SOB. While in the hospital pt was evaluated for her CKD Stage 4 by nephrology who requested eval for AVF since pt will likely need HD in the near future. Vascular surgery called to evaluate. PMHx: IDDM, diabetic nephropathy, HTN, depression PSHx: Appendectomy, Gastric sx Social history: Denies tobacco usage, EtOH consumption. Pt quit marijuana few months ago, and denies any other illicit drug use. Pt lives with her mother in an apartment building. Allergies: NKDA Review of Systems - Review of Systems All systems: reviewed and no additional remarkable complaints except (as per HPI) Past Patient History - Infectious Disease Hx of Infectious Diseases: None - Past Medical History & Family History Past Medical History?: Yes - Past Social History Smoking Status: Never Smoked - CARDIAC Hx Hypertension: Yes - PULMONARY Hx Respiratory Disorders: No - NEUROLOGICAL Hx Seizures: Yes (Pseudo seizures?) - HEENT Hx HEENT Problems: Yes Other/Comment: wears eyeglasses - RENAL Hx Chronic Kidney Disease: Yes - ENDOCRINE/METABOLIC Hx Endocrine Disorders: Yes Hx Diabetes Mellitus Type 2: Yes (on insulin pump) - HEMATOLOGICAL/ONCOLOGICAL Hx Anemia: Yes - INTEGUMENTARY Hx Dermatological Problems: No - MUSCULOSKELETAL/RHEUMATOLOGICAL Hx Falls: Yes - GASTROINTESTINAL Hx Gastrointestinal Disorders: Yes (SEE COMMENT) Other/Comment: gastroparesis - GENITOURINARY/GYNECOLOGICAL Hx Genitourinary Disorders: No - PSYCHIATRIC Hx Substance Use: No - SURGICAL HISTORY Hx Appendectomy: Yes - ANESTHESIA Hx Anesthesia: Yes Hx Anesthesia Reactions: No Hx Malignant Hyperthermia: No Meds Allergies/Adverse Reactions: Allergies Allergy/AdvReac Type Severity Reaction Status Date / Time No Known Allergies Allergy Verified 04/28/18 01:57 - Medications Medications: Current Medications Amlodipine Besylate (Norvasc) [address] [facility] Last Admin: 04/29/18 09:52 Dose: 5 mg Clonidine HCl (Catapres-Tts2 0.2 Mg/24 Hr) 1 patch TD Q7D@1000 [facility] Last Admin: 04/28/18 11:05 Dose: 1 patch Dextrose (Dextrose 50% Inj) 0 ml IV STAT PRN; Protocol PRN Reason: Hypoglycemia Protocol Dextrose (Glutose 15) 0 gm PO ONCE PRN; Protocol PRN Reason: Hypoglycemia Protocol Glucagon (Glucagen Diagnostic Kit) 0 mg IM STAT PRN; Protocol PRN Reason: Hypoglycemia Protocol Dextrose (Dextrose 5% In Water 1000 Ml) 1,000 mls @ 0 mls/hr IV .Q0M PRN; Protocol PRN Reason: Hypoglycemia Protocol Sodium Chloride (Sodium Chloride 0.45%) 1,000 mls @ 80 mls/hr IV .[id number] [facility] Last Admin: 04/29/18 12:40 Dose: 80 mls/hr Insulin Glargine (Lantus) 15 unit SC [facility] Last Admin: 04/28/18 22:27 Dose: 15 u Insulin Human Regular (Novolin R) 0 unit SC [facility]; Protocol Last Admin: 04/29/18 12:40 Dose: 4 units Labetalol HCl (Trandate) 20 mg IVP Q4H PRN PRN Reason: sbp>160 Lorazepam (Ativan) 1 mg IVP Q6H PRN PRN Reason: Anxiety Ondansetron HCl (Zofran Inj) 4 mg IVP Q8H PRN PRN Reason: Nausea/Vomiting Last Admin: 04/29/18 06:34 Dose: 4 mg Pantoprazole Sodium (Protonix Inj) [address] [facility] Last Admin: 04/29/18 09:53 Dose: 40 mg Physical Exam - Constitutional Appears: Well, No Acute Distress - Head Exam Head Exam: ATRAUMATIC, NORMOCEPHALIC - Eye Exam Eye Exam: Normal appearance - ENT Exam ENT Exam: Mucous Membranes Moist - Respiratory Exam Respiratory Exam: NORMAL BREATHING PATTERN - Cardiovascular Exam Cardiovascular Exam: Tachycardia - GI/Abdominal Exam GI & Abdominal Exam: Guarding (voluntary ), Soft. absent: Distended - Neurological Exam Neurological exam: Alert, Oriented x3 - Skin Skin Exam: Dry, Warm Results - Vital Signs Recent Vital Signs: Last Vital Signs Temp 98.5 F 04/29/18 10:50 Pulse 99 H 04/29/18 14:22 Resp 20 04/29/18 10:50 BP 150/92 H 04/29/18 14:22 Pulse Ox 100 04/29/18 10:50 - Labs Result Diagrams: 04/29/18 10:56 04/29/18 10:56 Labs: Laboratory Results - last 24 hr 04/28/18 04/28/18 04/28/18 17:21 22:17 23:26 WBC RBC Hgb Hct MCV MCH MCHC RDW Plt Count MPV Neut % (Auto) Lymph % (Auto) Morrow % (Auto) Eos % (Auto) Baso % (Auto) Neut # (Auto) Lymph # (Auto) Morrow # (Auto) Eos # (Auto) Baso # (Auto) Neutrophils % (Manual) Band Neutrophils % Lymphocytes % (Manual) Monocytes % (Manual) Platelet Estimate Hypochromasia (manual) Poikilocytosis (manual Kit Cells Sodium Potassium Chloride Carbon Dioxide Anion Gap BUN Creatinine Est GFR ( Amer) Est GFR (Non-Af Amer) POC Glucose (mg/dL) 351 H 188 H 222 H Random Glucose Calcium Iron TIBC % Saturation Ferritin Total Bilirubin AST ALT Alkaline Phosphatase Troponin I Total Protein Albumin Globulin Albumin/Globulin Ratio 25-OH Vitamin D Total 04/29/18 04/29/18 04/29/18 06:31 10:56 10:56 WBC RBC Hgb Hct MCV MCH MCHC RDW Plt Count MPV Neut % (Auto) Lymph % (Auto) Morrow % (Auto) Eos % (Auto) Baso % (Auto) Neut # (Auto) Lymph # (Auto) Morrow # (Auto) Eos # (Auto) Baso # (Auto) Neutrophils % (Manual) Band Neutrophils % Lymphocytes % (Manual) Monocytes % (Manual) Platelet Estimate Hypochromasia (manual) Poikilocytosis (manual Lafe Cells Sodium Potassium Chloride Carbon Dioxide Anion Gap BUN Creatinine Est GFR ( Amer) Est GFR (Non-Af Amer) POC Glucose (mg/dL) 237 H Random Glucose Calcium Iron 62 TIBC 249 L % Saturation 25 Ferritin 72.3 Total Bilirubin AST ALT Alkaline Phosphatase Troponin I Total Protein Albumin Globulin Albumin/Globulin Ratio 25-OH Vitamin D Total 13.1 L 04/29/18 04/29/18 04/29/18 10:56 10:56 11:09 WBC 12.1 H RBC 3.43 L Hgb 9.8 L D Hct 29.7 L MCV 86.4 MCH 28.5 MCHC 33.0 RDW 14.4 Plt Count 345 MPV 9.8 Neut % (Auto) 89.0 H Lymph % (Auto) 7.0 L Morrow % (Auto) 3.7 Eos % (Auto) 0.0 Baso % (Auto) 0.3 Neut # (Auto) 10.7 H Lymph # (Auto) 0.8 L Morrow # (Auto) 0.4 Eos # (Auto) 0.0 Baso # (Auto) 0.0 Neutrophils % (Manual) 91 H Band Neutrophils % 1 Lymphocytes % (Manual) 6 L Monocytes % (Manual) 2 Platelet Estimate Normal Hypochromasia (manual) Slight Poikilocytosis (manual Slight Lafe Cells Slight Sodium 142 Potassium 3.5 L Chloride 105 Carbon Dioxide 26 Anion Gap 15 BUN 50 H Creatinine 6.5 H Est GFR ( Amer) 9 Est GFR (Non-Af Amer) 8 POC Glucose (mg/dL) 291 H Random Glucose 276 H D Calcium 8.6 Iron TIBC % Saturation Ferritin Total Bilirubin 0.4 AST 18 ALT 21 Alkaline Phosphatase 114 Troponin I 0.0280 Total Protein 6.3 Albumin 3.6 Globulin 2.7 Albumin/Globulin Ratio 1.3 25-OH Vitamin D Total Assessment & Plan - Assessment and Plan (Free Text) Assessment: 27 year old female admitted for abdominal pain and vomiting w/CKD stage IV. Surgery consulted for AVF evaluation Plan: - f/u vein mapping - arm restrictions - d/w Dr. Flora Salgado
--- NOTE | 2018-04-29 17:02 | CP.PCM.CON ---
<Manpreet Giles - Last Filed: 04/29/18 16:52> History of Present Illness - History of Present Illness History of Present Illness: Critical Care Consult Note for Dr. Morrell's service CC: Elevated blood pressure HPI: Patient is a 27 yo female w/ PMH of IDDM, gastroparesis, pseduoseizures, and worsening CKD admitted for abdominal pain and multiple episodes of emesis. Patient is very well known to the unit. Patient has a history inducing vomiting causing dehydration and leading to elevated blood pressure. Patient consulted for elevated blood pressure. Patient can be taken care of on medical floors as her medical problems are self induced. Patient induces vomiting and has pseudoseizures because she demands ativan and dilaudid for pain. Patient's pain is primarly due to multiple episodes of vomiting. P.E HEENT: NC,AT, EOMI, PERRL, No thyromegaly, Dry MM Cardio: Tachycardic, no murmurs appreciated, normal s1,s2 Pulm: CTA b/l; no r,w,r; no resp distress GI: tenderness to palpation in abdomen nonspecific; no rebound or guarding; normal bowel sounds Neuro: CN 2-12 intact, AAOx3 Psych: Flat affect, Depressed mood Extremities: normal inspection, no calf tenderness A/P Elevated BP: educate patient on cessation of induction of vomiting, clonidine patch, Labetolol; Amlodipin oral - patient may vomit out; consider iv meds only GABRIELA: NS @ 80mls/hr although patient bp elevated, patient is dry Ativan as needed for sedation as patient likely to continue habits. Past Patient History - Infectious Disease Hx of Infectious Diseases: None - Past Medical History & Family History Past Medical History?: Yes - Past Social History Smoking Status: Never Smoked - CARDIAC Hx Hypertension: Yes - PULMONARY Hx Respiratory Disorders: No - NEUROLOGICAL Hx Seizures: Yes (Pseudo seizures?) - HEENT Hx HEENT Problems: Yes Other/Comment: wears eyeglasses - RENAL Hx Chronic Kidney Disease: Yes - ENDOCRINE/METABOLIC Hx Endocrine Disorders: Yes Hx Diabetes Mellitus Type 2: Yes (on insulin pump) - HEMATOLOGICAL/ONCOLOGICAL Hx Anemia: Yes - INTEGUMENTARY Hx Dermatological Problems: No - MUSCULOSKELETAL/RHEUMATOLOGICAL Hx Falls: Yes - GASTROINTESTINAL Hx Gastrointestinal Disorders: Yes (SEE COMMENT) Other/Comment: gastroparesis - GENITOURINARY/GYNECOLOGICAL Hx Genitourinary Disorders: No - PSYCHIATRIC Hx Substance Use: No - SURGICAL HISTORY Hx Appendectomy: Yes - ANESTHESIA Hx Anesthesia: Yes Hx Anesthesia Reactions: No Hx Malignant Hyperthermia: No Meds Allergies/Adverse Reactions: Allergies Allergy/AdvReac Type Severity Reaction Status Date / Time No Known Allergies Allergy Verified 04/28/18 01:57 - Medications Medications: Current Medications Amlodipine Besylate (Norvasc) 5 mg PO DAILY [facility] Last Admin: 04/29/18 09:52 Dose: 5 mg Clonidine HCl (Catapres-Tts2 0.2 Mg/24 Hr) 1 patch TD Q7D@1000 [facility] Last Admin: 04/28/18 11:05 Dose: 1 patch Dextrose (Dextrose 50% Inj) 0 ml IV STAT PRN; Protocol PRN Reason: Hypoglycemia Protocol Dextrose (Glutose 15) 0 gm PO ONCE PRN; Protocol PRN Reason: Hypoglycemia Protocol Glucagon (Glucagen Diagnostic Kit) 0 mg IM STAT PRN; Protocol PRN Reason: Hypoglycemia Protocol Dextrose (Dextrose 5% In Water 1000 Ml) 1,000 mls @ 0 mls/hr IV .Q0M PRN; Protocol PRN Reason: Hypoglycemia Protocol Sodium Chloride (Sodium Chloride 0.45%) 1,000 mls @ 80 mls/hr IV .[id number] [facility] Last Admin: 04/29/18 12:40 Dose: 80 mls/hr Insulin Glargine (Lantus) 15 unit SC [facility] Last Admin: 04/28/18 22:27 Dose: 15 u Insulin Human Regular (Novolin R) 0 unit SC [facility]; Protocol Last Admin: 04/29/18 12:40 Dose: 4 units Labetalol HCl (Trandate) 20 mg IVP Q4H PRN PRN Reason: sbp>160 Lorazepam (Ativan) 1 mg IVP Q6H PRN PRN Reason: Anxiety Ondansetron HCl (Zofran Inj) 4 mg IVP Q8H PRN PRN Reason: Nausea/Vomiting Last Admin: 04/29/18 06:34 Dose: 4 mg Pantoprazole Sodium (Protonix Inj) 40 mg IVP DAILY [facility] Last Admin: 04/29/18 09:53 Dose: 40 mg Results - Vital Signs Recent Vital Signs: Last Vital Signs Temp 99.2 F 04/29/18 16:30 Pulse 113 H 04/29/18 16:30 Resp 20 04/29/18 16:30 BP 150/92 H 04/29/18 14:22 Pulse Ox 97 04/29/18 16:30 - Labs Result Diagrams: 04/29/18 10:56 04/29/18 10:56 Labs: Laboratory Results - last 24 hr 04/28/18 04/28/18 04/28/18 17:21 22:17 23:26 WBC RBC Hgb Hct MCV MCH MCHC RDW Plt Count MPV Neut % (Auto) Lymph % (Auto) Rich % (Auto) Eos % (Auto) Baso % (Auto) Neut # (Auto) Lymph # (Auto) Rich # (Auto) Eos # (Auto) Baso # (Auto) Neutrophils % (Manual) Band Neutrophils % Lymphocytes % (Manual) Monocytes % (Manual) Platelet Estimate Hypochromasia (manual) Poikilocytosis (manual Kit Cells Sodium Potassium Chloride Carbon Dioxide Anion Gap BUN Creatinine Est GFR ( Amer) Est GFR (Non-Af Amer) POC Glucose (mg/dL) 351 H 188 H 222 H Random Glucose Calcium Iron TIBC % Saturation Ferritin Total Bilirubin AST ALT Alkaline Phosphatase Troponin I Total Protein Albumin Globulin Albumin/Globulin Ratio 25-OH Vitamin D Total 04/29/18 04/29/18 04/29/18 06:31 10:56 10:56 WBC RBC Hgb Hct MCV MCH MCHC RDW Plt Count MPV Neut % (Auto) Lymph % (Auto) Rich % (Auto) Eos % (Auto) Baso % (Auto) Neut # (Auto) Lymph # (Auto) Rich # (Auto) Eos # (Auto) Baso # (Auto) Neutrophils % (Manual) Band Neutrophils % Lymphocytes % (Manual) Monocytes % (Manual) Platelet Estimate Hypochromasia (manual) Poikilocytosis (manual Kit Cells Sodium Potassium Chloride Carbon Dioxide Anion Gap BUN Creatinine Est GFR ( Amer) Est GFR (Non-Af Amer) POC Glucose (mg/dL) 237 H Random Glucose Calcium Iron 62 TIBC 249 L % Saturation 25 Ferritin 72.3 Total Bilirubin AST ALT Alkaline Phosphatase Troponin I Total Protein Albumin Globulin Albumin/Globulin Ratio 25-OH Vitamin D Total 13.1 L 04/29/18 04/29/18 04/29/18 10:56 10:56 11:09 WBC 12.1 H RBC 3.43 L Hgb 9.8 L D Hct 29.7 L MCV 86.4 MCH 28.5 MCHC 33.0 RDW 14.4 Plt Count 345 MPV 9.8 Neut % (Auto) 89.0 H Lymph % (Auto) 7.0 L Rich % (Auto) 3.7 Eos % (Auto) 0.0 Baso % (Auto) 0.3 Neut # (Auto) 10.7 H Lymph # (Auto) 0.8 L Rich # (Auto) 0.4 Eos # (Auto) 0.0 Baso # (Auto) 0.0 Neutrophils % (Manual) 91 H Band Neutrophils % 1 Lymphocytes % (Manual) 6 L Monocytes % (Manual) 2 Platelet Estimate Normal Hypochromasia (manual) Slight Poikilocytosis (manual Slight Norman Cells Slight Sodium 142 Potassium 3.5 L Chloride 105 Carbon Dioxide 26 Anion Gap 15 BUN 50 H Creatinine 6.5 H Est GFR ( Amer) 9 Est GFR (Non-Af Amer) 8 POC Glucose (mg/dL) 291 H Random Glucose 276 H D Calcium 8.6 Iron TIBC % Saturation Ferritin Total Bilirubin 0.4 AST 18 ALT 21 Alkaline Phosphatase 114 Troponin I 0.0280 Total Protein 6.3 Albumin 3.6 Globulin 2.7 Albumin/Globulin Ratio 1.3 25-OH Vitamin D Total <Yayo Morrell - Last Filed: 04/29/18 21:00> Meds - Medications Medications: Current Medications Amlodipine Besylate (Norvasc) 5 mg PO DAILY [facility] Last Admin: 04/29/18 09:52 Dose: 5 mg Clonidine HCl (Catapres-Tts2 0.2 Mg/24 Hr) 1 patch TD Q7D@1000 [facility] Last Admin: 04/28/18 11:05 Dose: 1 patch Dextrose (Dextrose 50% Inj) 0 ml IV STAT PRN; Protocol PRN Reason: Hypoglycemia Protocol Dextrose (Glutose 15) 0 gm PO ONCE PRN; Protocol PRN Reason: Hypoglycemia Protocol Glucagon (Glucagen Diagnostic Kit) 0 mg IM STAT PRN; Protocol PRN Reason: Hypoglycemia Protocol Dextrose (Dextrose 5% In Water 1000 Ml) 1,000 mls @ 0 mls/hr IV .Q0M PRN; Protocol PRN Reason: Hypoglycemia Protocol Sodium Chloride (Sodium Chloride 0.45%) 1,000 mls @ 80 mls/hr IV .[id number] [facility] Last Admin: 04/29/18 12:40 Dose: 80 mls/hr Insulin Glargine (Lantus) 15 unit SC HS [facility] Last Admin: 04/28/18 22:27 Dose: 15 u Insulin Human Regular (Novolin R) 0 unit SC ACHS [facility]; Protocol Last Admin: 04/29/18 16:55 Dose: 2 units Labetalol HCl (Trandate) 20 mg IVP Q4H PRN PRN Reason: sbp>160 Lorazepam (Ativan) 1 mg IVP Q6H PRN PRN Reason: Anxiety Last Admin: 04/29/18 16:24 Dose: 1 mg Ondansetron HCl (Zofran Inj) 4 mg IVP Q8H PRN PRN Reason: Nausea/Vomiting Last Admin: 04/29/18 06:34 Dose: 4 mg Pantoprazole Sodium (Protonix Inj) 40 mg IVP DAILY [facility] Last Admin: 04/29/18 09:53 Dose: 40 mg Results - Vital Signs Recent Vital Signs: Last Vital Signs Temp 99.2 F 04/29/18 16:30 Pulse 113 H 04/29/18 16:30 Resp 20 04/29/18 16:30 BP 189/114 H 04/29/18 16:30 Pulse Ox 97 04/29/18 16:30 - Labs Result Diagrams: 04/29/18 10:56 04/29/18 10:56 Labs: Laboratory Results - last 24 hr 04/28/18 04/28/18 04/29/18 22:17 23:26 06:31 WBC RBC Hgb Hct MCV MCH MCHC RDW Plt Count MPV Neut % (Auto) Lymph % (Auto) Rich % (Auto) Eos % (Auto) Baso % (Auto) Neut # (Auto) Lymph # (Auto) Rich # (Auto) Eos # (Auto) Baso # (Auto) Neutrophils % (Manual) Band Neutrophils % Lymphocytes % (Manual) Monocytes % (Manual) Platelet Estimate Hypochromasia (manual) Poikilocytosis (manual Norman Cells Sodium Potassium Chloride Carbon Dioxide Anion Gap BUN Creatinine Est GFR ( Amer) Est GFR (Non-Af Amer) POC Glucose (mg/dL) 188 H 222 H 237 H Random Glucose Calcium Iron TIBC % Saturation Ferritin Total Bilirubin AST ALT Alkaline Phosphatase Troponin I Total Protein Albumin Globulin Albumin/Globulin Ratio 25-OH Vitamin D Total 04/29/18 04/29/18 04/29/18 10:56 10:56 10:56 WBC 12.1 H RBC 3.43 L Hgb 9.8 L D Hct 29.7 L MCV 86.4 MCH 28.5 MCHC 33.0 RDW 14.4 Plt Count 345 MPV 9.8 Neut % (Auto) 89.0 H Lymph % (Auto) 7.0 L Rich % (Auto) 3.7 Eos % (Auto) 0.0 Baso % (Auto) 0.3 Neut # (Auto) 10.7 H Lymph # (Auto) 0.8 L Rich # (Auto) 0.4 Eos # (Auto) 0.0 Baso # (Auto) 0.0 Neutrophils % (Manual) 91 H Band Neutrophils % 1 Lymphocytes % (Manual) 6 L Monocytes % (Manual) 2 Platelet Estimate Normal Hypochromasia (manual) Slight Poikilocytosis (manual Slight Norman Cells Slight Sodium Potassium Chloride Carbon Dioxide Anion Gap BUN Creatinine Est GFR ( Amer) Est GFR (Non-Af Amer) POC Glucose (mg/dL) Random Glucose Calcium Iron 62 TIBC 249 L % Saturation 25 Ferritin 72.3 Total Bilirubin AST ALT Alkaline Phosphatase Troponin I Total Protein Albumin Globulin Albumin/Globulin Ratio 25-OH Vitamin D Total 13.1 L 04/29/18 04/29/18 04/29/18 10:56 11:09 16:47 WBC RBC Hgb Hct MCV MCH MCHC RDW Plt Count MPV Neut % (Auto) Lymph % (Auto) Rich % (Auto) Eos % (Auto) Baso % (Auto) Neut # (Auto) Lymph # (Auto) Rich # (Auto) Eos # (Auto) Baso # (Auto) Neutrophils % (Manual) Band Neutrophils % Lymphocytes % (Manual) Monocytes % (Manual) Platelet Estimate Hypochromasia (manual) Poikilocytosis (manual Kit Cells Sodium 142 Potassium 3.5 L Chloride 105 Carbon Dioxide 26 Anion Gap 15 BUN 50 H Creatinine 6.5 H Est GFR ( Amer) 9 Est GFR (Non-Af Amer) 8 POC Glucose (mg/dL) 291 H 173 H Random Glucose 276 H D Calcium 8.6 Iron TIBC % Saturation Ferritin Total Bilirubin 0.4 AST 18 ALT 21 Alkaline Phosphatase 114 Troponin I 0.0280 Total Protein 6.3 Albumin 3.6 Globulin 2.7 Albumin/Globulin Ratio 1.3 25-OH Vitamin D Total Attending/Attestation - Attestation I have personally seen and examined this patient.: Yes I have fully participated in the care of the patient.: Yes I have reviewed all pertinent clinical information: Yes Notes (Text): 04/29/18 21:00 Today: , April 29, 2018 The Patient was seen and examined at the bedside, Medical records reviewed, and management issues were discussed and formulated with the house staff. I have reviewed all the relevant clinical, laboratory, hemodynamic, radiographic data and medications Events reviewed Pain issues, skin care, head of the bed elevation, glycemic control were addressed. Agree with above resident's assessment and treatment plans of care as transcribed in Dr. Giles's note.
[2018-04-29] MEDS: (Lantus) Insulin Glargine, Recombinant SC SCH (22:13)
[2018-04-30] MEDS: Sodium Chloride 0.45% 1,000 ML IV SCH (01:11)
[2018-04-30] MEDS: Dextrose 50% SYRINGE Inj (50 ml) IV PRN (05:43)
[2018-04-30] MEDS: (Novolin R) Insulin Human Regular 100 units/ml vial SC SCH ×4 (07:40→21:31)
[2018-04-30 07:47] LABS: ALB/GLOB RATIO 1.2 (1.0-2.1); ALBUMIN 3.1 g/dL (3.5-5.0); CALCIUM 7.7 mg/dl (8.6-10.4)
[2018-04-30] MEDS ORDERED: Potassium Chloride 20 mEq ER Tab PO ONE (09:48)
--- NOTE | 2018-04-30 09:48 | CP.PCM.PN ---
Subjective - Date & Time of Evaluation Date of Evaluation: 04/30/18 Time of Evaluation: 09:34 - Subjective Subjective: Surya Mena PGY1 Progress Note for Dr. King Pt was examined at bedside this morning. She reports improvement in her vomiting, says the last episode was last night. She complains of back pain today, which she claims began prior to admission. She says she is able to walk normally. Pt denies chest pain, fever, chills, abdominal pain, diarrhea, dysuria. Objective - Vital Signs/Intake and Output Vital Signs (last 24 hours): Temp Pulse Resp BP Pulse Ox 98.1 F 89 20 168/110 H 100 04/29/18 23:30 04/29/18 23:30 04/29/18 23:30 04/29/18 23:30 04/29/18 23:30 Intake and Output: 04/30/18 04/30/18 06:59 18:59 Intake Total 1760 Balance 1760 - Medications Medications: Current Medications Amlodipine Besylate (Norvasc) 10 mg PO DAILY [facility] Clonidine HCl (Catapres-Tts2 0.2 Mg/24 Hr) 1 patch TD Q7D@1000 [facility] Last Admin: 04/28/18 11:05 Dose: 1 patch Dextrose (Dextrose 50% Inj) 0 ml IV STAT PRN; Protocol PRN Reason: Hypoglycemia Protocol Last Admin: 04/30/18 05:43 Dose: 50 ml Dextrose (Glutose 15) 0 gm PO ONCE PRN; Protocol PRN Reason: Hypoglycemia Protocol Last Admin: 04/30/18 04:57 Dose: 15 gm Glucagon (Glucagen Diagnostic Kit) 0 mg IM STAT PRN; Protocol PRN Reason: Hypoglycemia Protocol Dextrose (Dextrose 5% In Water 1000 Ml) 1,000 mls @ 0 mls/hr IV .Q0M PRN; Protocol PRN Reason: Hypoglycemia Protocol Sodium Chloride (Sodium Chloride 0.45%) 1,000 mls @ 80 mls/hr IV .[id number] [facility] Last Admin: 04/30/18 01:11 Dose: 80 mls/hr Insulin Glargine (Lantus) 15 unit SC HS [facility] Last Admin: 04/29/18 22:13 Dose: 15 u Insulin Human Regular (Novolin R) 0 unit SC ACHS [facility]; Protocol Last Admin: 04/29/18 22:09 Dose: Not Given Labetalol HCl (Trandate) 20 mg IVP Q4H PRN PRN Reason: sbp>160 Last Admin: 04/29/18 22:20 Dose: 20 mg Lorazepam (Ativan) 1 mg IVP Q6H PRN PRN Reason: Anxiety Last Admin: 04/29/18 22:20 Dose: 1 mg Ondansetron HCl (Zofran Inj) 4 mg IVP Q8H PRN PRN Reason: Nausea/Vomiting Last Admin: 04/29/18 06:34 Dose: 4 mg Pantoprazole Sodium (Protonix Inj) 40 mg IVP DAILY [facility] Last Admin: 04/29/18 09:53 Dose: 40 mg - Labs Labs: 04/29/18 10:56 04/30/18 07:20 - Additional Findings Additional findings: - Constitutional Appears: In Acute Distress, Unkempt - Head Exam Head Exam: ATRAUMATIC, NORMOCEPHALIC Additional comments: excoriated hyperpigmented macules on the lateral forehead, malar region, and chin. likely traumatized acne scars. - Eye Exam Eye Exam: EOMI, Normal appearance, PERRL - ENT Exam ENT Exam: Mucous Membranes Moist - Neck Exam Neck Exam: Normal Inspection - Respiratory Exam Respiratory Exam: Clear to Ausculation Bilateral, NORMAL BREATHING PATTERN. absent: Rales, Rhonchi, Wheezes, Respiratory Distress - Cardiovascular Exam Cardiovascular Exam: Tachycardia, REGULAR RHYTHM, +S1, +S2. absent: Gallop, Rubs, Murmur - GI/Abdominal Exam Additional comments: soft, non tender. normal bowel sounds. non distended. - Extremities Exam Extremities Exam: Normal Inspection. absent: Pedal Edema - Back Exam Back Exam: NORMAL INSPECTION - Neurological Exam Neurological Exam: Alert, Awake, Oriented x3 - Psychiatric Exam Psychiatric exam: Anxious - Skin Skin Exam: Normal Color Assessment and Plan - Assessment and Plan (Free Text) Assessment: 27yo F with Munchausen's, IDDM, and renal failure presenting with abdominal pain and vomiting. Vomiting seen to be self induced as well as psuedoseizures. Plan: Abdominal pain with vomiting - self-induced vomiting as seen by camera - improved, denies episodes today - zofran 4mg IV q6h PRN nausea - protonix 40mg IV daily - NS @80cc/hr - BRENDA camera - liquid diet GABRIELA - likely prerenal etiology - Cr 5.9, downtrending - pt with h/o IDDM - NS @80cc/hr - Pt requiring AVF for HD, as per nephro - Vascular Surgery consulted, Dr. Flora david appreciated - Nephrology consulted, Dr. Ezequiel david appreciated Munchausen Syndrome - pt exhibiting pseudoseizures and self-induced vomiting - pt tearful and anxious, repeatedly begging for ativan - ativan 1mg IV q6h PRN anxiety, hold if pt is asleep HTN - worsened 2/2 anxiety - labetalol 20mg IVP q6h PRN - norvasc 10mg PO daily - clonidine TD patch daily - EKG tachy sinus - trop neg - Critical care consulted, Dr. Petros david appreciated IDDM - accuchecks achs - ISS-medium - hypoglycemic protocol Ppx - DVT: SCDs, anticoagulation not indicated - GI: protonix Liquid Diet Pt seen and case discussed with Dr. King
[2018-04-30] MEDS: Labetalol 5mg/ml (4ml) IVP PRN (11:06)
[2018-04-30] MEDS: Potassium Chloride 20 MEQ in Sodium Chloride 0.45% 1,000 ML IV SCH (11:06)
--- NOTE | 2018-04-30 14:44 | CP.PCM.PN ---
<EronAyo Lavon - Last Filed: 04/30/18 14:45> Subjective - Date & Time of Evaluation Date of Evaluation: 04/30/18 Time of Evaluation: 10:30 - Subjective Subjective: Nephrology progress note - Eron, PGY - 2 Patient seen and examined at bedside, had an episode of hypoglycemia this morning, was given d50. Patient states that nausea and abdominal pain are much better, but has still had bouts of emesis. Otherwise no new acute complaints. 12 point ROS otherwise negative. Objective - Vital Signs/Intake and Output Vital Signs (last 24 hours): Temp Pulse Resp BP Pulse Ox 98.4 F 90 20 176/105 H 99 04/30/18 07:00 04/30/18 07:00 04/30/18 07:00 04/30/18 07:00 04/30/18 07:00 Intake and Output: 04/30/18 04/30/18 06:59 18:59 Intake Total 1760 Balance 1760 - Medications Medications: Current Medications Amlodipine Besylate (Norvasc) 10 mg PO DAILY [facility] Last Admin: 04/30/18 10:00 Dose: 10 mg Clonidine HCl (Catapres-Tts2 0.2 Mg/24 Hr) 1 patch TD Q7D@1000 [facility] Last Admin: 04/28/18 11:05 Dose: 1 patch Dextrose (Dextrose 50% Inj) 0 ml IV STAT PRN; Protocol PRN Reason: Hypoglycemia Protocol Last Admin: 04/30/18 05:43 Dose: 50 ml Dextrose (Glutose 15) 0 gm PO ONCE PRN; Protocol PRN Reason: Hypoglycemia Protocol Last Admin: 04/30/18 04:57 Dose: 15 gm Glucagon (Glucagen Diagnostic Kit) 0 mg IM STAT PRN; Protocol PRN Reason: Hypoglycemia Protocol Dextrose (Dextrose 5% In Water 1000 Ml) 1,000 mls @ 0 mls/hr IV .Q0M PRN; Protocol PRN Reason: Hypoglycemia Protocol Potassium Chloride 20 meq/ (Sodium Chloride) 1,010 mls @ 80 mls/hr IV .[id number] [facility] Last Admin: 04/30/18 11:06 Dose: 80 mls/hr Insulin Glargine (Lantus) 15 unit SC HS [facility] Last Admin: 04/29/18 22:13 Dose: 15 u Insulin Human Regular (Novolin R) 0 unit SC [facility]; Protocol Last Admin: 04/30/18 12:35 Dose: 3 units Labetalol HCl (Trandate) 20 mg IVP Q4H PRN PRN Reason: sbp>160 Last Admin: 04/30/18 11:06 Dose: 20 mg Lorazepam (Ativan) 1 mg IVP Q6H PRN PRN Reason: Anxiety Last Admin: 04/30/18 09:47 Dose: 1 mg Ondansetron HCl (Zofran Inj) 4 mg IVP Q8H PRN PRN Reason: Nausea/Vomiting Last Admin: 04/30/18 09:48 Dose: 4 mg Pantoprazole Sodium (Protonix Inj) 40 mg IVP DAILY [facility] Last Admin: 04/30/18 09:48 Dose: 40 mg - Labs Labs: 04/29/18 10:56 04/30/18 07:20 - Constitutional Appears: Well - Head Exam Head Exam: ATRAUMATIC, NORMAL INSPECTION, NORMOCEPHALIC - Eye Exam Eye Exam: EOMI, Normal appearance, PERRL Pupil Exam: NORMAL ACCOMODATION, PERRL - ENT Exam ENT Exam: Mucous Membranes Moist, Normal Exam - Neck Exam Neck Exam: Full ROM, Normal Inspection. absent: Lymphadenopathy - Respiratory Exam Respiratory Exam: Clear to Ausculation Bilateral, NORMAL BREATHING PATTERN - Cardiovascular Exam Cardiovascular Exam: REGULAR RHYTHM, +S1, +S2. absent: Murmur - GI/Abdominal Exam GI & Abdominal Exam: Soft, Normal Bowel Sounds. absent: Tenderness - Extremities Exam Extremities Exam: Full ROM, Normal Capillary Refill, Normal Inspection. absent: Joint Swelling, Pedal Edema - Back Exam Back Exam: NORMAL INSPECTION - Neurological Exam Neurological Exam: Alert, Awake, CN II-XII Intact, Normal Gait, Oriented x3 - Psychiatric Exam Psychiatric exam: Normal Affect, Normal Mood - Skin Skin Exam: Dry, Intact, Normal Color, Warm Assessment and Plan - Assessment and Plan (Free Text) Assessment: 27 year old female with pertinent medical history of CKD stage IV, diabetic nephropathy, and nephrotic proteinuria, presents to ED with abdominal pain associated with abdominal pain and worsening renal function (though no urinary complaints). Per laboratory review, patient's CR is stabilizing with hydration. Blood pressure is still elevated, but is stabilizing with medication. Of note, patient had vein mapping in January. Patient amenable to AVF. Iron studies revealed normal iron but decreased TIBC with normal saturations, ind icating Anemia of Chronic Disease and Anemia of CKD. Plan: Acute on Chronic Kidney injury stage IV, likely 2/2 GI losses with pre-renal etiology - Improving - Achieve glycemic control - Avoid nephrotoxic agents, especially NSAIDS; please do not give toradol or morphine for pain - Vascular consult obtained for AVF - per surgery team, will take to OR next week if patient still here - Continue IVF with 1/2NS @ 80 mls/hr Acute Hypokalemia - Repleted; Replete PRN IV. Give PO very carefully - patient with late CKD, less able to clear excess K+ Diabetic Nephropathy with Nephrotic Proteinuria - Chronic - Hydrate as above Hypertension - Chronic - Continue with clonidine patch 0.1mg q7D - Continue labetalol 20 q4 PRN for SBP > 160 - Primary team added Norvasc 10; good if patient does not vomit, but otherwise will need IV medications - Avoid ARB 2/2 late renal disease Hx Anemia, Likely 2/2 CKD, ACD - Chronic - Epo as necessary <Migue Nieves - Last Filed: 05/01/18 08:39> Objective - Vital Signs/Intake and Output Vital Signs (last 24 hours): Temp Pulse Resp BP Pulse Ox 98.2 F 80 20 181/115 H 99 05/01/18 04:48 05/01/18 04:48 05/01/18 04:48 05/01/18 04:48 05/01/18 04:48 - Medications Medications: Current Medications Amlodipine Besylate (Norvasc) 10 mg PO DAILY [facility] Last Admin: 04/30/18 10:00 Dose: 10 mg Clonidine HCl (Catapres-Tts2 0.2 Mg/24 Hr) 1 patch TD Q7D@1000 [facility] Last Admin: 04/28/18 11:05 Dose: 1 patch Dextrose (Dextrose 50% Inj) 0 ml IV STAT PRN; Protocol PRN Reason: Hypoglycemia Protocol Last Admin: 04/30/18 05:43 Dose: 50 ml Dextrose (Glutose 15) 0 gm PO ONCE PRN; Protocol PRN Reason: Hypoglycemia Protocol Last Admin: 04/30/18 04:57 Dose: 15 gm Glucagon (Glucagen Diagnostic Kit) 0 mg IM STAT PRN; Protocol PRN Reason: Hypoglycemia Protocol Dextrose (Dextrose 5% In Water 1000 Ml) 1,000 mls @ 0 mls/hr IV .Q0M PRN; Protocol PRN Reason: Hypoglycemia Protocol Sodium Chloride (Sodium Chloride 0.9%) 1,000 mls @ 60 mls/hr IV .[id number] [facility] Insulin Glargine (Lantus) 15 unit SC HS [facility] Last Admin: 04/30/18 21:31 Dose: Not Given Insulin Human Regular (Novolin R) 0 unit SC ACHS [facility]; Protocol Last Admin: 05/01/18 06:53 Dose: 8 units Labetalol HCl (Trandate) 20 mg IVP Q4H PRN PRN Reason: sbp>160 Last Admin: 05/01/18 04:27 Dose: 20 mg Lorazepam (Ativan) 1 mg IVP Q6H PRN PRN Reason: Anxiety Last Admin: 05/01/18 00:16 Dose: 1 mg Ondansetron HCl (Zofran Inj) 4 mg IVP Q8H PRN PRN Reason: Nausea/Vomiting Last Admin: 04/30/18 21:26 Dose: 4 mg Pantoprazole Sodium (Protonix Inj) 40 mg IVP DAILY [facility] Last Admin: 04/30/18 09:48 Dose: 40 mg - Labs Labs: 04/29/18 10:56 05/01/18 07:31 Attending/Attestation - Attestation I have personally seen and examined this patient.: Yes I have fully participated in the care of the patient.: Yes I have reviewed all pertinent clinical information, including history, physical exam and plan: Yes Notes (Text): Patient seen and examined; I agree with the resident's note as above with the following additions/edits: Patient with CKD IV/V, admitted with diabetic gastroparesis flare with persistent vomiting, currently somewhat improved; GABRIELA thought to be pre-renal, mildly improved with IVF; still appears hemoconcentrated with serum albumin higher than her baseline; the hope is that patient will come back to her baseline renal function and that we can initiate HD with AVF in a few months instead of catheter; no definite indication for initiating HD currently, but we will continue to monitor closely and inititate HD via catheter at any point if needed; will try to get AVF creation on this admission; BP still severely uncontrolled; started on clonidine patch but may take another 1-2 days to take full effect; continue IV labetalol 20 mg q4h prn; agree with norvasc 10; Anemia of CKD, will hold off on giving EPO until BP better controlled; CKD mineral bone disorder; will give ergocalciferol 50,000 u weekly and start calcitriol 0.25 mcg;
--- NOTE | 2018-04-30 17:33 | CARD ---
APPROVED REPORT Date of service: 04/29/2018 EKG Measurement Heart [id number] <Conclusion> Sinus tachycardia Otherwise normal ECG
[2018-04-30] MEDS: (Lantus) Insulin Glargine, Recombinant SC SCH (21:31)
[2018-05-01] MEDS: Potassium Chloride 20 MEQ in Sodium Chloride 0.45% 1,000 ML IV SCH (00:16)
[2018-05-01] MEDS: Labetalol 5mg/ml (4ml) IVP PRN ×2 (04:27→08:40)
[2018-05-01] MEDS: (Novolin R) Insulin Human Regular 100 units/ml vial SC SCH ×4 (06:53→22:51)
[2018-05-01 07:54] LABS: ALB/GLOB RATIO 1.2 (1.0-2.1); ALBUMIN 3.3 g/dL (3.5-5.0); CALCIUM 7.8 mg/dl (8.6-10.4)
[2018-05-01] MEDS ORDERED: Sodium Chloride 0.9% 1,000 ML IV SCH ×2 (08:30→20:52)
--- NOTE | 2018-05-01 09:38 | CP.PCM.PN ---
Subjective - Date & Time of Evaluation Date of Evaluation: 05/01/18 Time of Evaluation: 09:37 - Subjective Subjective: Progress note for Dr. King Patient was seen and examined at bedside in no acute distress. Mother was also at bedside. Patient reports feeling better today, has not vomited since yesterday, and denies nausea. She says shes tolerating her diet and requesting to advance her diet. The patient denies chest pain, palpitations, dyspnea, diar toni, constipation, dysuria. Objective - Vital Signs/Intake and Output Vital Signs (last 24 hours): Temp Pulse Resp BP Pulse Ox 98.2 F 87 20 178/115 H 99 05/01/18 07:00 05/01/18 07:00 05/01/18 07:00 05/01/18 09:13 05/01/18 07:00 - Medications Medications: Current Medications Amlodipine Besylate (Norvasc) 10 mg PO DAILY [facility] Last Admin: 05/01/18 09:09 Dose: 10 mg Carvedilol (Coreg) 12.5 mg PO BID [facility] Last Admin: 05/01/18 09:13 Dose: 12.5 mg Clonidine HCl (Catapres-Tts2 0.2 Mg/24 Hr) 1 patch TD Q7D@1000 [facility] Last Admin: 04/28/18 11:05 Dose: 1 patch Dextrose (Dextrose 50% Inj) 0 ml IV STAT PRN; Protocol PRN Reason: Hypoglycemia Protocol Last Admin: 04/30/18 05:43 Dose: 50 ml Dextrose (Glutose 15) 0 gm PO ONCE PRN; Protocol PRN Reason: Hypoglycemia Protocol Last Admin: 04/30/18 04:57 Dose: 15 gm Glucagon (Glucagen Diagnostic Kit) 0 mg IM STAT PRN; Protocol PRN Reason: Hypoglycemia Protocol Dextrose (Dextrose 5% In Water 1000 Ml) 1,000 mls @ 0 mls/hr IV .Q0M PRN; Protocol PRN Reason: Hypoglycemia Protocol Sodium Chloride (Sodium Chloride 0.9%) 1,000 mls @ 60 mls/hr IV .[id number] [facility] Last Admin: 05/01/18 08:48 Dose: 60 mls/hr Insulin Glargine (Lantus) 15 unit SC HS [facility] Last Admin: 04/30/18 21:31 Dose: Not Given Insulin Human Regular (Novolin R) 0 unit SC ACHS [facility]; Protocol Last Admin: 05/01/18 06:53 Dose: 8 units Labetalol HCl (Trandate) 20 mg IVP Q4H PRN PRN Reason: sbp>160 Last Admin: 05/01/18 08:40 Dose: 20 mg Lorazepam (Ativan) 1 mg IVP Q6H PRN PRN Reason: Anxiety Last Admin: 05/01/18 09:11 Dose: 1 mg Ondansetron HCl (Zofran Inj) 4 mg IVP Q8H PRN PRN Reason: Nausea/Vomiting Last Admin: 04/30/18 21:26 Dose: 4 mg Pantoprazole Sodium (Protonix Inj) 40 mg IVP DAILY [facility] Last Admin: 05/01/18 09:09 Dose: 40 mg - Labs Labs: 04/29/18 10:56 05/01/18 07:31 - Constitutional Appears: No Acute Distress - Head Exam Head Exam: ATRAUMATIC, NORMAL INSPECTION - Eye Exam Eye Exam: EOMI, Normal appearance - ENT Exam ENT Exam: Mucous Membranes Moist - Respiratory Exam Respiratory Exam: Clear to Ausculation Bilateral, NORMAL BREATHING PATTERN. absent: Rales, Rhonchi, Wheezes, Respiratory Distress - Cardiovascular Exam Cardiovascular Exam: REGULAR RHYTHM, +S1, +S2 - GI/Abdominal Exam GI & Abdominal Exam: Soft, Tenderness (epigastic, with palpation), Normal Bowel Sounds. absent: Distended, Firm, Guarding - Extremities Exam Extremities Exam: Normal Inspection. absent: Pedal Edema, Tenderness - Neurological Exam Neurological Exam: Alert, Awake, Oriented x3 - Psychiatric Exam Psychiatric exam: Normal Affect, Normal Mood - Skin Skin Exam: Dry, Normal Color Assessment and Plan - Assessment and Plan (Free Text) Plan: 27yo F with Munchausen's, IDDM, and renal failure presenting with abdominal pain and vomiting. Vomiting seen to be self induced as well as psuedoseizures. Plan: Abdominal pain with vomiting - self-induced vomiting as seen by camera - improved, denies episodes today - zofran 4mg IV q6h PRN nausea - protonix 40mg IV daily - NS @80cc/hr - BRENAD camera - liquid diet GABRIELA - likely prerenal etiology - Cr 5.9, downtrending - pt with h/o IDDM - NS @80cc/hr - Pt requiring AVF for HD, as per nephro - Vascular Surgery consulted, Dr. Flora david appreciated - plan for AVF placement with Dr. Tineo next week. - Nephrology consulted, Dr. Ezequiel david appreciated Munchausen Syndrome - pt exhibiting pseudoseizures and self-induced vomiting - pt tearful and anxious, repeatedly begging for ativan - ativan 1mg IV q6h PRN anxiety, hold if pt is asleep HTN - worsened 2/2 anxiety - labetalol 20mg IVP q6h PRN - norvasc 10mg PO daily - clonidine TD patch daily - EKG tachy sinus - trop neg - Critical care consulted, Dr. Petros david appreciated IDDM - accuchecks achs - ISS-medium - hypoglycemic protocol Ppx - DVT: SCDs, anticoagulation not indicated - GI: protonix - Liquid Diet Case discussed with Dr. Christine Allen, PGY2
--- NOTE | 2018-05-01 17:48 | CARD ---
APPROVED REPORT Date of service: 04/28/2018 EKG Measurement Heart [id number] <Conclusion> Sinus tachycardia Otherwise normal ECG
--- NOTE | 2018-05-01 20:52 | CP.PCM.PN ---
Subjective - Date & Time of Evaluation Date of Evaluation: 05/01/18 Time of Evaluation: 12:00 - Subjective Subjective: Patient reports feeling better today; abd pain and vomiting improved; urinating well; Objective - Vital Signs/Intake and Output Vital Signs (last 24 hours): Temp Pulse Resp BP Pulse Ox 98.6 F 68 20 132/86 98 05/01/18 15:25 05/01/18 15:25 05/01/18 15:25 05/01/18 17:14 05/01/18 15:25 - Medications Medications: Current Medications Amlodipine Besylate (Norvasc) 10 mg PO DAILY [facility] Last Admin: 05/01/18 09:09 Dose: 10 mg Carvedilol (Coreg) 12.5 mg PO BID [facility] Last Admin: 05/01/18 17:14 Dose: 12.5 mg Clonidine HCl (Catapres-Tts2 0.2 Mg/24 Hr) 1 patch TD Q7D@1000 [facility] Last Admin: 04/28/18 11:05 Dose: 1 patch Dextrose (Dextrose 50% Inj) 0 ml IV STAT PRN; Protocol PRN Reason: Hypoglycemia Protocol Last Admin: 04/30/18 05:43 Dose: 50 ml Dextrose (Glutose 15) 0 gm PO ONCE PRN; Protocol PRN Reason: Hypoglycemia Protocol Last Admin: 04/30/18 04:57 Dose: 15 gm Glucagon (Glucagen Diagnostic Kit) 0 mg IM STAT PRN; Protocol PRN Reason: Hypoglycemia Protocol Dextrose (Dextrose 5% In Water 1000 Ml) 1,000 mls @ 0 mls/hr IV .Q0M PRN; Protocol PRN Reason: Hypoglycemia Protocol Sodium Chloride (Sodium Chloride 0.9%) 1,000 mls @ 60 mls/hr IV .[id number] [facility] Last Admin: 05/01/18 08:48 Dose: 60 mls/hr Insulin Glargine (Lantus) 15 unit SC HS [facility] Last Admin: 04/30/18 21:31 Dose: Not Given Insulin Human Regular (Novolin R) 0 unit SC ACHS [facility]; Protocol Last Admin: 05/01/18 17:14 Dose: 2 units Labetalol HCl (Trandate) 20 mg IVP Q4H PRN PRN Reason: sbp>160 Last Admin: 05/01/18 08:40 Dose: 20 mg Lorazepam (Ativan) 1 mg IVP Q6H PRN PRN Reason: Anxiety Last Admin: 05/01/18 18:35 Dose: 1 mg Ondansetron HCl (Zofran Inj) 4 mg IVP Q8H PRN PRN Reason: Nausea/Vomiting Last Admin: 04/30/18 21:26 Dose: 4 mg Pantoprazole Sodium (Protonix Inj) 40 mg IVP DAILY [facility] Last Admin: 05/01/18 09:09 Dose: 40 mg - Labs Labs: 04/29/18 10:56 05/01/18 07:31 - Constitutional Appears: Non-toxic, No Acute Distress - Eye Exam Eye Exam: Normal appearance - Respiratory Exam Respiratory Exam: Clear to Ausculation Bilateral. absent: Respiratory Distress - Cardiovascular Exam Cardiovascular Exam: RRR, +S1, +S2 - GI/Abdominal Exam GI & Abdominal Exam: Soft. absent: Distended, Tenderness - Extremities Exam Additional comments: no leg edema; - Neurological Exam Neurological Exam: Alert, Awake - Psychiatric Exam Psychiatric exam: Normal Affect, Normal Mood. 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; presentation with gastroparesis flare and likely pre-renal GABRIELA; relatively stable volume and electrolyte status; no urgent indication to initiate HD; as mentioned previously, it extremely important to avoid HD with catheter due ensuing complications; nevertheless, we will continue to monitor closely and start HD at any time if needed; vascular surgery agreeable to AVF creation early next week (Thursday), patient also amenable for the same (vein mapping in system under different MR#); -avoid nephrotoxic agents (especially NSAIDS); -changing IVF to NS at 60 cc/hr (1/2NS causing mild hyponatremia); -f/u with vascular surgery regarding pre-op orders; should keep on dextrose containing IVF on day before procedure given her recurrent hypoglycemia; Status: Acute (2) Hypertensive CKD (chronic kidney disease) Assessment & Plan: Severely elevated BP, now better controlled with clonidine patch and now that no longer in distress; not getting prn labetalol as ordered, discussed with nursing staff; will add coreg 12.5 mg bid; continue amlodipine 10; Status: Acute (3) Anemia in CKD (chronic kidney disease) Assessment & Plan: Hgb slightly below goal, may decrease further as patient is given volume repletion; holding EPO until BP well controlled; Status: Chronic (4) Chronic kidney disease-mineral and bone disorder Assessment & Plan: PTH increased; restarting ergocalciferol and calcitriol; Status: Chronic
[2018-05-01] MEDS: Sodium Chloride 0.9% 1,000 ML IV SCH (21:00)
[2018-05-01] MEDS ORDERED: Dextrose 50% SYRINGE Inj (50 ml) ONE ×2 (21:50→21:52)
[2018-05-01] MEDS: (Lantus) Insulin Glargine, Recombinant SC SCH (22:50)
--- NOTE | 2018-05-01 22:53 | PCM.RRT ---
<Mal Lynn - Last Filed: 05/01/18 23:30> LIBRARY CLERK Nurses Assessment - Situation Date: 05/01/18 Time LIBRARY CLERK was called: 21:45 LIBRARY CLERK Responder Arrival Time:: 21:45 LIBRARY CLERK Location:: Med/Surg Room Number: 672 LIBRARY CLERK Reason for Call: Looks Sicker LIBRARY CLERK Called By: RN - IV IV Inserted during LIBRARY CLERK?: Yes - Respiratory LIBRARY CLERK Delivery Method: Room Air Received Nebulizer Treatments: No Was the Patient Ventilated with Bag/Mask 100% O2?: No Secretions Suctioned?: No Was the Patient Intubated?: No Was the Patient Placed on a Ventilator?: No - Medication Medications Administered During LIBRARY CLERK: 2150= 1 amp.D50% [id number] IV AT 80ML/HR. - Diagnostic Test Ordered EKG: No Chest X-Ray: No CT Scan: No CPR started during LIBRARY CLERK?: No - Vital Signs Vital Signs: Rapid Response Vital Sign Blood Pressure 159/107 Pulse Rate 75 Respiratory Rate 18 Temperature 98 F Oxygen Saturation 93 - Time LIBRARY CLERK Ended Time LIBRARY CLERK Ended: 21:59 - Recommendations Notifications: Attending Physician, Consultations, Family or Designated Caregiver I.Reason for LIBRARY CLERK - A) Acute Change in Patient: (Select all that apply): Staff member or family is worried about patient - Neurological Status (Select all that apply): Responsive, Lethargic, Weakness. absent: Alert, Oriented, Verbal, Follows Commands - Respiratory Oxygen Delivery Method: Room Air - Constitutional Additional Comments: lethargic, - Head Head Exam: ATRAUMATIC, NORMOCEPHALIC - Eyes Eye Exam: EOMI, Normal appearance - Respiratory Exam Respiratory Exam: Clear to Ausculation Bilateral, NORMAL BREATHING PATTERN. ab sent: Rales, Rhonchi, Wheezes - Cardiovascular Exam Cardiovascular Exam: REGULAR RHYTHM, +S1, +S2 - GI/Abdominal Exam GI & Abdominal Exam: Soft, Normal Bowel Sounds. absent: Tenderness - Neurological Exam Neurological Exam: absent: Alert, Awake, Oriented x3 - Extremities Exam Extremities Exam: Normal Inspection Plan - Assessment of Findings&Treatment Plan Rapid response called at 21:50 on Patient in 672A for glucose level of 20. patient has a pmhx of Gastroparesis, pseudoseizures, DM type I and GABRIELA admitted for evaluation and treatment of abdominal pain and vomiting and worsening renal function. As per nurse, patient previous glucose level was on 150s, and received 2 units of ISS, medium protocol. Patient had dinner and was given ativan 1mg IVP as per patient request. Patient then fell asleep and as per mother, started sweating and got sat in bed, and became lethargic afterwards. Patient vital at time of arrival T98 HR 75 BP 159/107 O2 93. Patient was not awake, but respondin g to sternal rub with radial pulses palpable. D50% 1 amp given as per hygoglycemia protocol. Patient woke up and responded, was alert and oriented and was given pudding and bread. blood glucose rechecked, 183. Attending Dr King notified, as per attending we d/c ativan. <Jerson Brown P - Last Filed: 05/12/18 09:07> LIBRARY CLERK Nurses Assessment - Vital Signs Vital Signs: Rapid Response Vital Sign Blood Pressure 159/107 Pulse Rate 75 Respiratory Rate 18 Temperature 98 F Oxygen Saturation 93 - Vital Signs at end of LIBRARY CLERK Vital Signs at end of LIBRARY CLERK: Rapid Response End Vital Sign Blood Pressure 155/92 Pulse Rate 85 Respiratory Rate 24 Temperature 98.2 F O2 Sat by Pulse Oximetry 99 Attending/Attestation - Attestation I have personally seen and examined this patient.: Yes I have fully participated in the care of the patient.: Yes I have reviewed all pertinent clinical information, including history, physical exam and plan: Yes Notes (Text): 05/12/18 09:03 Patient assessed during LIBRARY CLERK was hypoglycemic, wokeup with D50, given pudding, primary team reached that adjusted meds.
[2018-05-02] MEDS: (Novolin R) Insulin Human Regular 100 units/ml vial SC SCH ×5 (06:09→21:56)
[2018-05-02] MEDS: Labetalol 5mg/ml (4ml) IVP PRN (06:46)
[2018-05-02] MEDS: Sodium Chloride 0.9% 1,000 ML IV SCH ×2 (06:46→13:55)
--- NOTE | 2018-05-02 08:43 | CP.PCM.PN ---
Subjective - Date & Time of Evaluation Date of Evaluation: 05/02/18 Time of Evaluation: 08:43 - Subjective Subjective: Progress note for Dr. King Patient was seen and examined at bedside in no acute distress. Mother was also at bedside. A eyeglass assembler was called overnight for hypoglycemia (<20). Two amps of D50 were given, patient became alert, responsive, and was able to eat pudding. Prior to this event, her glucose was 150, and was given 2 units per the sliding scale, and was given 1mg of ativan. Currently, the patient is feeling better, has not vomited and denies nausea. She is requesting her ativan. The patient denies chest pain, palpitations, dyspnea, diarrhea, constipation, dysuria. Objective - Vital Signs/Intake and Output Vital Signs (last 24 hours): Temp Pulse Resp BP Pulse Ox 98 F 85 20 165/106 H 100 05/02/18 00:00 05/02/18 06:43 05/02/18 06:43 05/02/18 06:43 05/02/18 06:43 Intake and Output: 05/02/18 05/02/18 06:59 18:59 Intake Total 850 Balance 850 - Medications Medications: Current Medications Amlodipine Besylate (Norvasc) 10 mg PO DAILY [facility] Last Admin: 05/01/18 09:09 Dose: 10 mg Calcitriol (Rocaltrol) 0.25 mcg PO MWF [facility] Carvedilol (Coreg) 12.5 mg PO BID [facility] Last Admin: 05/01/18 17:14 Dose: 12.5 mg Clonidine HCl (Catapres-Tts2 0.2 Mg/24 Hr) 1 patch TD Q7D@1000 [facility] Last Admin: 04/28/18 11:05 Dose: 1 patch Dextrose (Dextrose 50% Inj) 0 ml IV STAT PRN; Protocol PRN Reason: Hypoglycemia Protocol Last Admin: 04/30/18 05:43 Dose: 50 ml Dextrose (Glutose 15) 0 gm PO ONCE PRN; Protocol PRN Reason: Hypoglycemia Protocol Last Admin: 04/30/18 04:57 Dose: 15 gm Ergocalciferol (Drisdol 50,000 Intl Units Cap) 1 cap PO Q7D [facility] Glucagon (Glucagen Diagnostic Kit) 0 mg IM STAT PRN; Protocol PRN Reason: Hypoglycemia Protocol Dextrose (Dextrose 5% In Water 1000 Ml) 1,000 mls @ 0 mls/hr IV .Q0M PRN; Protocol PRN Reason: Hypoglycemia Protocol Sodium Chloride (Sodium Chloride 0.9%) 1,000 mls @ 60 mls/hr IV .[id number] [facility] Last Admin: 05/02/18 06:46 Dose: 60 mls/hr Insulin Glargine (Lantus) 15 unit SC HS [facility] Last Admin: 05/01/18 22:50 Dose: Not Given Insulin Human Regular (Novolin R) 0 unit SC ACHS [facility]; Protocol Last Admin: 05/02/18 08:09 Dose: 10 units Labetalol HCl (Trandate) 20 mg IVP Q4H PRN PRN Reason: sbp>160 Last Admin: 05/02/18 06:46 Dose: 20 mg Ondansetron HCl (Zofran Inj) 4 mg IVP Q8H PRN PRN Reason: Nausea/Vomiting Last Admin: 05/02/18 04:29 Dose: 4 mg Pantoprazole Sodium (Protonix Inj) 40 mg IVP DAILY [facility] Last Admin: 05/01/18 09:09 Dose: 40 mg - Labs Labs: 04/29/18 10:56 05/01/18 07:31 - Additional Findings Additional findings: - Constitutional Appears: No Acute Distress - Head Exam Head Exam: ATRAUMATIC, NORMAL INSPECTION - Eye Exam Eye Exam: EOMI, Normal appearance - ENT Exam ENT Exam: Mucous Membranes Moist - Respiratory Exam Respiratory Exam: Clear to Ausculation Bilateral, NORMAL BREATHING PATTERN. absent: Rales, Rhonchi, Wheezes, Respiratory Distress - Cardiovascular Exam Cardiovascular Exam: REGULAR RHYTHM, +S1, +S2 - GI/Abdominal Exam GI & Abdominal Exam: Soft, Tenderness (mild epigastic, with palpation), Normal Bowel Sounds. absent: Distended, Firm, Guarding - Extremities Exam Extremities Exam: Normal Inspection. absent: Pedal Edema, Tenderness - Neurological Exam Neurological Exam: Alert, Awake, Oriented x3 - Psychiatric Exam Psychiatric exam: Normal Affect, Normal Mood - Skin Skin Exam: Dry, Normal Color Assessment and Plan - Assessment and Plan (Free Text) Plan: 27yo F with Munchausen's, IDDM, and renal failure presenting with abdominal pain and vomiting. Vomiting seen to be self induced as well as psuedoseizures. Plan: Abdominal pain with vomiting, improving Gastroparesis - self-induced vomiting as seen by camera - improved, denies episodes today - zofran 4mg IV q6h PRN nausea - protonix 40mg IV daily - NS @80cc/hr - BRENDA camera - Advanced to bland, heart healthy, low carb, non dialysis renal diet. Pt is tolerating at this time. GABRIELA - likely prerenal etiology - Cr 5.9, downtrending - pt with h/o IDDM - NS @80cc/hr - Nephrology consulted, Dr. Ezequiel david appreciated - Pt requiring AVF for HD, as per nephro - Vascular Surgery consulted, Dr. Flora david appreciated - planned for AVF placement with Dr. Tineo Thursday or Thursday. Munchausen Syndrome - pt exhibiting pseudoseizures and self-induced vomiting - pt tearful and anxious, repeatedly begging for ativan - Discontinued ativan 1mg IV q6h PRN on 05/01/18 - Started trazadone 50mg PO BID - Consulted psychiatry, Dr. Mckeon; recs appreciated HTN - Worsened 2/2 anxiety - Labetalol 20mg IVP q4h PRN - Norvasc 10mg PO daily - Coreg 12.5mg PO BID - Clonidine TD patch daily - EKG tachy sinus - trop neg - Critical care consulted, Dr. Petros david appreciated IDDM - Accuchecks achs - ISS-medium - Glargine 15u SC HS - Hypoglycemic protocol Ppx - DVT: SCDs, anticoagulation not indicated - GI: protonix - Advanced to bland, heart healthy, low carb, non dialysis renal diet. Pt is tolerating at this time. Case discussed with Dr. Christine Allen, PGY2
[2018-05-02] MEDS: Ergocalciferol 50,000 Intl Units Cap PO SCH (10:43)
[2018-05-02 10:55] LABS: BASO % 0.4 % (0.0-2.0); EOS % 0.2 % (0.0-4.0); HEMOGLOBIN 9.9 g/dL (11.0-16.0); LYMPH # 1.2 K/uL (1.0-4.3); LYMPH % 12.4 % (20.0-40.0); MEAN CELL VOLUME 87.4 fL (81.0-99.0); MEAN CORPUSCULAR HEMOGLOBIN 28.7 pg (27.0-31.0); MEAN CORPUSCULAR HGB CONC 32.9 g/dL (33.0-37.0); MEAN PLATELET VOLUME 10.1 fL (7.2-11.7); MONO # 0.6 K/uL (0.0-0.8); NEUT # 7.8 K/uL (1.8-7.0); RBC 3.46 Mil/uL (3.80-5.20); RED CELL DISTRIBUTION WIDTH 14.1 % (11.5-14.5); WHITE BLOOD COUNT 9.7 K/uL (4.8-10.8)
[2018-05-02 11:21] LABS: ALB/GLOB RATIO 1.2 (1.0-2.1); ALBUMIN 2.9 g/dL (3.5-5.0); CALCIUM 7.7 mg/dl (8.6-10.4)
[2018-05-02] MEDS: Lactated Ringer's 1,000 ML IV SCH (20:29)
[2018-05-02] MEDS: (Lantus) Insulin Glargine, Recombinant SC SCH (21:56)
[2018-05-03] MEDS ORDERED: (Novolin R) Insulin Human Regular 100 units/ml vial SC ONE (07:27)
[2018-05-03] MEDS: (Novolin R) Insulin Human Regular 100 units/ml vial SC SCH ×4 (07:34→21:25)
--- NOTE | 2018-05-03 07:45 | CP.PCM.PN ---
Subjective - Date & Time of Evaluation Date of Evaluation: 05/03/18 Time of Evaluation: 07:41 - Subjective Subjective: Surya Mena PGY1 Progress Note for Dr. King Pt was examined at bedside this morning. She complains of severe abdominal pain and vomiting. Pt requesting pain medication at this time. When asked where abdominal pain is, she points to epigastric area. Objective - Vital Signs/Intake and Output Vital Signs (last 24 hours): Temp Pulse Resp BP Pulse Ox 98 F 80 20 143/76 100 05/02/18 23:55 05/02/18 23:55 05/02/18 23:55 05/02/18 23:55 05/02/18 23:55 Intake and Output: 05/03/18 05/03/18 06:59 18:59 Intake Total 780 Balance 780 - Medications Medications: Current Medications Amlodipine Besylate (Norvasc) 10 mg PO DAILY [facility] Last Admin: 05/02/18 10:39 Dose: 10 mg [facility] Carvedilol (Coreg) 12.5 mg PO BID [facility] Last Admin: 05/02/18 17:46 Dose: 12.5 mg Clonidine HCl (Catapres-Tts2 0.2 Mg/24 Hr) 1 patch TD Q7D@1000 [facility] Last Admin: 04/28/18 11:05 Dose: 1 patch Dextrose (Dextrose 50% Inj) 0 ml IV STAT PRN; Protocol PRN Reason: Hypoglycemia Protocol Last Admin: 04/30/18 05:43 Dose: 50 ml Dextrose (Glutose 15) 0 gm PO ONCE PRN; Protocol PRN Reason: Hypoglycemia Protocol Last Admin: 04/30/18 04:57 Dose: 15 gm Ergocalciferol (Drisdol 50,000 Intl Units Cap) 1 cap PO Q7D [facility] Last Admin: 05/02/18 10:43 Dose: 1 cap Glucagon (Glucagen Diagnostic Kit) 0 mg IM STAT PRN; Protocol PRN Reason: Hypoglycemia Protocol Dextrose (Dextrose 5% In Water 1000 Ml) 1,000 mls @ 0 mls/hr IV .Q0M PRN; Protocol PRN Reason: Hypoglycemia Protocol Lactated Ringer's (Lactated Ringer's) 1,000 mls @ 60 mls/hr IV .[id number] [facility] Last Admin: 05/02/18 20:29 Dose: 60 mls/hr Insulin Glargine (Lantus) 15 unit SC HS [facility] Last Admin: 05/02/18 21:56 Dose: Not Given Insulin Human Regular (Novolin R) 0 unit SC ACHS [facility]; Protocol Last Admin: 05/03/18 07:34 Dose: 10 units Labetalol HCl (Trandate) 20 mg IVP Q4H PRN PRN Reason: sbp>160 Last Admin: 05/02/18 06:46 Dose: 20 mg Ondansetron HCl (Zofran Inj) 4 mg IVP Q8H PRN PRN Reason: Nausea/Vomiting Last Admin: 05/03/18 04:56 Dose: 4 mg Pantoprazole Sodium (Protonix Inj) 40 mg IVP DAILY [facility] Last Admin: 05/02/18 10:00 Dose: 40 mg Trazodone HCl (Desyrel) 50 mg PO BID [facility] - Labs Labs: 05/02/18 10:48 05/02/18 10:48 - Additional Findings Additional findings: - Constitutional Appears: No Acute Distress - Head Exam Head Exam: ATRAUMATIC, NORMAL INSPECTION - Eye Exam Eye Exam: EOMI, Normal appearance - ENT Exam ENT Exam: Mucous Membranes Moist - Respiratory Exam Respiratory Exam: Clear to Ausculation Bilateral, NORMAL BREATHING PATTERN. absent: Rales, Rhonchi, Wheezes, Respiratory Distress - Cardiovascular Exam Cardiovascular Exam: REGULAR RHYTHM, +S1, +S2 - GI/Abdominal Exam GI & Abdominal Exam: Refused abdominal exam - Extremities Exam Extremities Exam: Normal Inspection. absent: Pedal Edema, Tenderness - Neurological Exam Neurological Exam: Alert, Awake, Oriented x3 - Psychiatric Exam Psychiatric exam: Normal Affect, Normal Mood - Skin Skin Exam: Dry, Normal Color Assessment and Plan - Assessment and Plan (Free Text) Assessment: 27yo F with Munchausen's, IDDM, and renal failure presenting with abdominal pain and vomiting. Vomiting seen to be self induced as well as psuedoseizures. Plan: Abdominal pain with vomiting Gastroparesis - self-induced vomiting as seen by camera - zofran 4mg IV q6h PRN nausea - protonix 40mg IV daily - LR @60cc/hr - BRENDA camera - Advanced to bland, heart healthy, low carb, non dialysis renal diet. Pt is tolerating at this time. GABRIELA - likely prerenal etiology - pt with h/o IDDM - LR @60cc/hr - calictriol 0.25mg PO MWF - ergocalciferol q7d - Nephrology consulted, Dr. Ezequiel david appreciated - Pt requiring AVF for HD, as per nephro - Vascular Surgery consulted, Dr. Flora david appreciated - planned for AVF placement with Dr. Tineo Thursday or Thursday. Munchausen Syndrome - pt exhibiting pseudoseizures and self-induced vomiting - pt tearful and anxious, repeatedly begging for ativan - ativan 1mg IV q6h PRN - trazadone 50mg PO BID - Consulted psychiatry, Dr. Mckeon; recs appreciated HTN - Worsened 2/2 anxiety - Labetalol 20mg IVP q4h PRN - Norvasc 10mg PO daily - Coreg 12.5mg PO BID - Clonidine TD patch daily - EKG tachy sinus - trop neg - Critical care consulted, Dr. Petros david appreciated IDDM - Accuchecks achs - ISS-medium - Glargine 15u SC HS - Hypoglycemic protocol Ppx - DVT: SCDs, anticoagulation not indicated - GI: protonix - Advanced to bland, heart healthy, low carb, non dialysis renal diet. Pt is tolerating at this time. Case discussed with Dr. King
--- NOTE | 2018-05-03 09:56 | PCM.PSYCH ---
Initial Psychiatric Evaluation - Initial Psychiatric Evaluation Type of Admission: Voluntary Legal Status: Capacity Chief Complaint (in patient's own words): I am feeling anxious' History of Present Illness and Precipitating Events: 27 year old female patient with a PMH of DM, HTN, gastroparesis, seizure disorder (pseudo-seizure), anxiety and depression, presents to the hospital for intractable vomiting. Pt was consulted by the psychiatric team. Pt was seen and evaluated at bedside. Pt was tearful and crying throughout the interview, complaining of diffuse abdominal pain and inability to stop vomiting. Pt also complains of lack of appetite and lack of sleep. Pt has been hospitalized multiple times on the medicine floor for similar complaints. Pt continues to induce vomiting throughout the interview, while complaining of abd pain. Pt also continues to induce seizure-like movements, stating "I need Ativan for the pain". Pt reports depressed mood, but denies suicidal or homicidal ideations, denies paranoia, denies auditory or visual hallucinations. PMH: DM, HTN, gastroparesis, pseudo-seizure Current Medications: Active Medications Generic Name Dose Route Start Last Admin Trade Name Freq PRN Reason Stop Dose Admin Amlodipine Besylate 10 mg 04/30/18 10:00 05/02/18 10:39 Norvasc PO 10 mg DAILY [facility] Administration Calcitriol 0.25 mcg 05/03/18 09:00 Rocaltrol PO MWF [facility] Carvedilol 12.5 mg 05/01/18 10:00 05/02/18 17:46 Coreg PO 12.5 mg BID [facility] Administration Clonidine HCl 1 patch 04/28/18 10:00 04/28/18 11:05 Catapres-Tts2 0.2 Mg/24 Hr TD 1 patch Q7D@1000 [facility] Administration Dextrose 0 ml 04/28/18 06:53 04/30/18 05:43 Dextrose 50% Inj IV 50 ml STAT PRN Administration Hypoglycemia Protocol Protocol Dextrose 0 gm 04/28/18 06:53 04/30/18 04:57 Glutose 15 PO 15 gm ONCE PRN Administration Hypoglycemia Protocol Protocol Ergocalciferol 1 cap 05/02/18 08:30 05/02/18 10:43 Drisdol 50,000 Intl Units Cap PO 1 cap Q7D [facility] Administration Glucagon 0 mg 04/28/18 06:53 Glucagen Diagnostic Kit IM STAT PRN Hypoglycemia Protocol Protocol Dextrose 1,000 mls @ 0 mls/hr 04/28/18 06:53 Dextrose 5% In Water 1000 Ml IV .Q0M PRN Hypoglycemia Protocol Protocol Per Protocol Lactated Ringer's 1,000 mls @ 60 mls/hr 05/02/18 19:30 05/02/18 20:29 Lactated Ringer's IV 60 mls/hr .[id number] [facility] Administration Insulin Glargine 15 unit 04/28/18 22:00 05/02/18 21:56 Lantus SC Not Given HS [facility] Insulin Human Regular 0 unit 04/28/18 07:30 05/03/18 07:34 Novolin R SC 10 units ACHS [facility] Administration Protocol Labetalol HCl 20 mg 04/29/18 11:52 05/02/18 06:46 Trandate IVP 20 mg Q4H PRN Administration sbp>160 Ondansetron HCl 4 mg 04/28/18 19:22 05/03/18 04:56 Zofran Inj IVP 4 mg Q8H PRN Administration Nausea/Vomiting Pantoprazole Sodium 40 mg 04/28/18 10:00 05/02/18 10:00 Protonix Inj IVP 40 mg DAILY [facility] Administration Trazodone HCl 50 mg 05/03/18 10:00 Desyrel PO BID [facility] Past Psychiatric History - Past Psychiatric History Previous Treatment History: None Pertinent Medical Hx (Current Medical&Sleep Prob, Allergies): Allergies Allergy/AdvReac Type Severity Reaction Status Date / Time No Known Allergies Allergy Verified 04/28/18 01:57 Insulin Lispro [Humalog (Insulin Lispro)] 0 units SC TIDPC 03/09/17 Losartan [Cozaar] 25 mg PO DAILY 05/31/17 Ondansetron ODT [Zofran ODT] 4 mg PO Q8 PRN #20 odt 04/18/18 amLODIPine [Norvasc] 5 mg PO DAILY 04/28/18 Review of Systems - Review of Systems All systems: reviewed and no additional remarkable complaints except - Psychiatric Psychiatric: Anxiety, Irritability. absent: Suicidal Ideation Mental Status Examination - Personal Presentation Personal Presentation: Looks stated age - Affect Affect: Constricted, Depressed - Motor Activity Motor Activity: Calm - Reliability in Providing Information Reliability in Providing Information: Poor, due to altered mood - Speech Speech: Organized - Mood Mood: Anxious - Formal Thought Process Formal Thought Process: No Impairment - Obsessions/Compulsions Obsessions: No Compulsions: No - Cognitive Functions Orientation: Person, Place, Situation, Time Sensorium: Alert Attention/Concentration: Attentive Abstract Thinking: [place] Estimate of Intelligence: Below average Judgement: Imparied, as evidence by: Poor judgement, Imparied, as evidence by: Lack of insight into illness - Risk Risk: Diminished functioning - Strength & Assets Inventory Strength & Assets Inventory: Family support DSM 5 DX - DSM 5 DSM 5 Diagnosis: Borderline personality disorder Depressive disorder - Recommended/Plan of Treatment Treatment Recommendations and Plan of Treatment: Borderline personality disorder Depressive disorder Patient psychiatrically stable and cleared for discharge
[2018-05-03] MEDS: Labetalol 5mg/ml (4ml) IVP PRN (11:05)
--- NOTE | 2018-05-03 11:25 | CP.PCM.PN ---
Subjective - Date & Time of Evaluation Date of Evaluation: 05/03/18 Time of Evaluation: 11:18 - Subjective Subjective: Josafat Enriquez PGY2 Nephrology Note for Dr. Nieves Patient was seen and examined at bedside. She is crying, and stating that her abdomen (Epigastric) hurts. Per nursing staff, the patient is refusing labs and meals as well as self-inducing vomit. The patient is afebrile and VS are within normal limits. Objective - Vital Signs/Intake and Output Vital Signs (last 24 hours): Temp Pulse Resp BP Pulse Ox 98 F 80 20 143/76 100 05/02/18 23:55 05/02/18 23:55 05/02/18 23:55 05/02/18 23:55 05/02/18 23:55 Intake and Output: 05/03/18 05/03/18 06:59 18:59 Intake Total 780 Balance 780 - Medications Medications: Current Medications Amlodipine Besylate (Norvasc) 10 mg PO DAILY [facility] Last Admin: 05/03/18 11:07 Dose: Not Given Calcitriol (Rocaltrol) 0.25 mcg PO MWF [facility] Last Admin: 05/03/18 11:07 Dose: Not Given Carvedilol (Coreg) 12.5 mg PO BID [facility] Last Admin: 05/03/18 11:06 Dose: Not Given Clonidine HCl (Catapres-Tts2 0.2 Mg/24 Hr) 1 patch TD Q7D@1000 [facility] Last Admin: 04/28/18 11:05 Dose: 1 patch Dextrose (Dextrose 50% Inj) 0 ml IV STAT PRN; Protocol PRN Reason: Hypoglycemia Protocol Last Admin: 04/30/18 05:43 Dose: 50 ml Dextrose (Glutose 15) 0 gm PO ONCE PRN; Protocol PRN Reason: Hypoglycemia Protocol Last Admin: 04/30/18 04:57 Dose: 15 gm Ergocalciferol (Drisdol 50,000 Intl Units Cap) 1 cap PO Q7D [facility] Last Admin: 05/02/18 10:43 Dose: 1 cap Glucagon (Glucagen Diagnostic Kit) 0 mg IM STAT PRN; Protocol PRN Reason: Hypoglycemia Protocol Dextrose (Dextrose 5% In Water 1000 Ml) 1,000 mls @ 0 mls/hr IV .Q0M PRN; Protocol PRN Reason: Hypoglycemia Protocol Lactated Ringer's (Lactated Ringer's) 1,000 mls @ 60 mls/hr IV .[id number] [facility] Last Admin: 05/02/18 20:29 Dose: 60 mls/hr Insulin Glargine (Lantus) 15 unit SC HS [facility] Last Admin: 05/02/18 21:56 Dose: Not Given Insulin Human Regular (Novolin R) 0 unit SC ACHS [facility]; Protocol Last Admin: 05/03/18 07:34 Dose: 10 units Labetalol HCl (Trandate) 20 mg IVP Q4H PRN PRN Reason: sbp>160 Last Admin: 05/03/18 11:05 Dose: 20 mg Ondansetron HCl (Zofran Inj) 4 mg IVP Q8H PRN PRN Reason: Nausea/Vomiting Last Admin: 05/03/18 11:16 Dose: 4 mg Pantoprazole Sodium (Protonix Inj) 40 mg IVP DAILY [facility] Last Admin: 05/03/18 10:33 Dose: 40 mg Trazodone HCl (Desyrel) 50 mg PO BID [facility] Last Admin: 05/03/18 11:06 Dose: Not Given - Labs Labs: 05/02/18 10:48 05/02/18 10:48 - Constitutional Appears: Non-toxic, In Acute Distress, Unkempt - Head Exam Head Exam: NORMAL INSPECTION - Eye Exam Eye Exam: Normal appearance - ENT Exam ENT Exam: Mucous Membranes Dry - Neck Exam Neck Exam: Full ROM - Respiratory Exam Respiratory Exam: NORMAL BREATHING PATTERN - Cardiovascular Exam Cardiovascular Exam: RRR, +S1, +S2 - GI/Abdominal Exam GI & Abdominal Exam: Guarding, Tenderness (diffuse), Hypoactive Bowel Sounds - Extremities Exam Extremities Exam: Normal Inspection - Back Exam Back Exam: NORMAL INSPECTION - Neurological Exam Neurological Exam: Alert, Awake - Psychiatric Exam Psychiatric exam: Anxious - Skin Skin Exam: Dry, Warm Assessment and Plan - Assessment and Plan (Free Text) Assessment: Epigastric pain due to diabetic gastroparesis - cont strict glycemic control - Psych on board due to self-inducing of vomit GABRIELA on CKD - non-compliant with labs so unable to trend Cr or I/O - no urgent indication for starting HD - Vascular surgery agreeable to AVF creation tomorrow, Thursday - avoid NSAIDS/nephrotoxic agents - f/u vascular surgery regarding recs for OR Anemia of inflammation - holding Epo until BP is well controlled - stable at this time HTN - BP is stable at this time - controlled w/ clonidine patch - refusing PO meds Secondary hyperparathyroidism - cont ergocalciferol Patient was discussed and evaluated with Dr. Nieves
[2018-05-03] MEDS: Lactated Ringer's 1,000 ML IV SCH (12:00)
[2018-05-03] MEDS: (Lantus) Insulin Glargine, Recombinant SC SCH (21:25)
[2018-05-04] MEDS: Lactated Ringer's 1,000 ML IV SCH ×2 (04:49→16:43)
--- NOTE | 2018-05-04 07:28 | CP.PCM.PN ---
<Josafat Enriquez - Last Filed: 05/04/18 17:04> Subjective - Date & Time of Evaluation Date of Evaluation: 05/04/18 Time of Evaluation: 07:08 - Subjective Subjective: Josafat Enriquez PGY2 Nephrology Note for Dr. Nieves Patient was seen and examined at bedside. Pt's mother was also at bedside. Per nursing staff, the patient has been drinking water from the sink despite her being NPO. The patient states that she is still in a significant amount of abdominal pain, and is yelling and crying excessively. The patient has been refusing labs and meals as well as self-inducing vomit, and psychiatry is on board. The patient is afebrile and VS are within normal limits. She is scheduled for AVF placement tomorrow. Objective - Vital Signs/Intake and Output Vital Signs (last 24 hours): Temp Pulse Resp BP Pulse Ox 98.6 F 96 H 20 157/80 H 98 05/03/18 23:00 05/03/18 23:00 05/03/18 23:00 05/03/18 23:00 05/03/18 23:00 Intake and Output: 05/04/18 05/04/18 06:59 18:59 Intake Total 480 Balance 480 - Medications Medications: Current Medications Amlodipine Besylate (Norvasc) 10 mg PO DAILY [facility] Last Admin: 05/03/18 11:07 Dose: Not Given Calcitriol (Rocaltrol) 0.25 mcg PO MWF [facility] Last Admin: 05/03/18 11:07 Dose: Not Given Carvedilol (Coreg) 12.5 mg PO BID [facility] Last Admin: 05/03/18 17:34 Dose: 12.5 mg Clonidine HCl (Catapres-Tts2 0.2 Mg/24 Hr) 1 patch TD Q7D@1000 [facility] Last Admin: 04/28/18 11:05 Dose: 1 patch Dextrose (Dextrose 50% Inj) 0 ml IV STAT PRN; Protocol PRN Reason: Hypoglycemia Protocol Last Admin: 04/30/18 05:43 Dose: 50 ml Dextrose (Glutose 15) 0 gm PO ONCE PRN; Protocol PRN Reason: Hypoglycemia Protocol Last Admin: 04/30/18 04:57 Dose: 15 gm Ergocalciferol (Drisdol 50,000 Intl Units Cap) 1 cap PO Q7D [facility] Last Admin: 05/02/18 10:43 Dose: 1 cap Glucagon (Glucagen Diagnostic Kit) 0 mg IM STAT PRN; Protocol PRN Reason: Hypoglycemia Protocol Dextrose (Dextrose 5% In Water 1000 Ml) 1,000 mls @ 0 mls/hr IV .Q0M PRN; Pro tocol PRN Reason: Hypoglycemia Protocol Lactated Ringer's (Lactated Ringer's) 1,000 mls @ 60 mls/hr IV .[id number] [facility] Last Admin: 05/04/18 04:49 Dose: Not Given Insulin Glargine (Lantus) 15 unit SC HS [facility] Last Admin: 05/03/18 21:25 Dose: Not Given Insulin Human Regular (Novolin R) 0 unit SC ACHS [facility]; Protocol Last Admin: 05/03/18 21:25 Dose: Not Given Labetalol HCl (Trandate) 20 mg IVP Q4H PRN PRN Reason: sbp>160 Last Admin: 05/03/18 11:05 Dose: 20 mg Lorazepam (Ativan) 1 mg IVP Q6H PRN PRN Reason: Anxiety Last Admin: 05/04/18 01:53 Dose: 1 mg Ondansetron HCl (Zofran Inj) 4 mg IVP Q8H PRN PRN Reason: Nausea/Vomiting Last Admin: 05/04/18 01:01 Dose: 4 mg Pantoprazole Sodium (Protonix Inj) 40 mg IVP DAILY [facility] Last Admin: 05/03/18 10:33 Dose: 40 mg Trazodone HCl (Desyrel) 50 mg PO BID [facility] Last Admin: 05/03/18 17:33 Dose: 50 mg - Labs Labs: 05/02/18 10:48 05/02/18 10:48 - Constitutional Appears: Non-toxic, In No Acute Distress, Unkempt - Head Exam Head Exam: NORMAL INSPECTION - Eye Exam Eye Exam: Normal appearance - ENT Exam ENT Exam: Mucous Membranes Dry - Neck Exam Neck Exam: Full ROM - Respiratory Exam Respiratory Exam: NORMAL BREATHING PATTERN - Cardiovascular Exam Cardiovascular Exam: RRR, +S1, +S2 - GI/Abdominal Exam GI & Abdominal Exam: Guarding, Tenderness (diffuse), Hypoactive Bowel Sounds - Extremities Exam Extremities Exam: Normal Inspection - Back Exam Back Exam: NORMAL INSPECTION - Neurological Exam Neurological Exam: Alert, Awake - Psychiatric Exam Psychiatric exam: Anxious - Skin Skin Exam: Dry, Warm Assessment and Plan - Assessment and Plan (Free Text) Assessment: Epigastric pain due to diabetic gastroparesis (chronic) - cont strict glycemic control - Psych on board due to self-inducing of vomit GABRIELA on CKD - non-compliant with labs so unable to trend Cr or I/O - no urgent indication for starting HD - Vascular surgery agreeable to AVF creation tomorrow - avoid NSAIDS/nephrotoxic agents - f/u vascular surgery regarding recs for OR Anemia of inflammation - holding Epo until BP is well controlled - stable at this time HTN - BP is stable at this time - controlled w/ clonidine patch - labetalol IV PRN - refusing PO meds Secondary hyperparathyroidism - cont ergocalciferol and calcitriol Patient was discussed and evaluated with Dr. Nieves <Migue Nieves - Last Filed: 05/05/18 01:18> Objective - Vital Signs/Intake and Output Vital Signs (last 24 hours): Temp Pulse Resp BP Pulse Ox 98.6 F 93 H 20 127/73 100 05/04/18 15:00 05/04/18 19:22 05/04/18 19:22 05/04/18 19:22 05/04/18 19:22 - Medications Medications: Current Medications Amlodipine Besylate (Norvasc) 10 mg PO DAILY [facility] Last Admin: 05/04/18 09:49 Dose: 10 mg Calcitriol (Rocaltrol) 0.25 mcg PO MWF [facility] Last Admin: 05/03/18 11:07 Dose: Not Given Carvedilol (Coreg) 12.5 mg PO BID [facility] Last Admin: 05/04/18 18:30 Dose: Not Given Clonidine HCl (Catapres-Tts2 0.2 Mg/24 Hr) 1 patch TD Q7D@1000 [facility] Last Admin: 05/04/18 09:54 Dose: 1 patch Dextrose (Dextrose 50% Inj) 0 ml IV STAT PRN; Protocol PRN Reason: Hypoglycemia Protocol Last Admin: 04/30/18 05:43 Dose: 50 ml Dextrose (Glutose 15) 0 gm PO ONCE PRN; Protocol PRN Reason: Hypoglycemia Protocol Last Admin: 04/30/18 04:57 Dose: 15 gm Ergocalciferol (Drisdol 50,000 Intl Units Cap) 1 cap PO Q7D [facility] Last Admin: 05/02/18 10:43 Dose: 1 cap Glucagon (Glucagen Diagnostic Kit) 0 mg IM STAT PRN; Protocol PRN Reason: Hypoglycemia Protocol Dextrose (Dextrose 5% In Water 1000 Ml) 1,000 mls @ 0 mls/hr IV .Q0M PRN; Protocol PRN Reason: Hypoglycemia Protocol Sodium Chloride (Sodium Chloride 0.9%) 1,000 mls @ 125 mls/hr IV .Q8H [facility] Last Admin: 05/04/18 17:45 Dose: 125 mls/hr Potassium Chloride/Dextrose/Sod Cl (Potassium Chl 20 Meq In D5-1/2ns) 1,000 mls @ 100 mls/hr IV .Q10H ONE Stop: 05/05/18 09:49 Last Admin: 05/05/18 00:04 Dose: 100 mls/hr Insulin Glargine (Lantus) 15 unit SC HS [facility] Last Admin: 05/04/18 22:53 Dose: 15 u Insulin Human Regular (Novolin R) 0 unit SC [facility]; Protocol Last Admin: 05/04/18 22:26 Dose: Not Given Labetalol HCl (Trandate) 20 mg IVP Q4H PRN PRN Reason: sbp>160 Last Admin: 05/03/18 11:05 Dose: 20 mg Ondansetron HCl (Zofran Inj) 4 mg IVP Q8H PRN PRN Reason: Nausea/Vomiting Last Admin: 05/04/18 16:16 Dose: 4 mg Pantoprazole Sodium (Protonix Inj) 40 mg IVP DAILY [facility] Last Admin: 05/04/18 09:50 Dose: Not Given Trazodone HCl (Desyrel) 50 mg PO BID [facility] Last Admin: 05/04/18 18:30 Dose: Not Given - Labs Labs: 05/04/18 13:52 05/04/18 18:38 Assessment and Plan (1) [id number] kidney injury Status: Acute (2) Hypertensive CKD (chronic kidney disease) Status: Acute (3) Anemia in CKD (chronic kidney disease) Status: Chronic (4) Chronic kidney disease-mineral and bone disorder Status: Chronic Attending/Attestation - Attestation I have personally seen and examined this patient.: Yes I have fully participated in the care of the patient.: Yes I have reviewed all pertinent clinical information, including history, physical exam and plan: Yes Notes (Text): Patient seen and examined; I agree with the resident's note as above with the following additions/edits: Patient with DM, admitted with gastroparesis flare, GABRIELA on CKD IV/V; Complicated patient with psych issues superimposed on serious medical problems; today with labs consistent with mild DKA after not getting her scheduled basal insulin last night (unclear why not given); repeat labs improved after IVF bolus given; nursing staff instructed not to hold basal insulin; Renal function not improved on this admission (baseline serum creatinine ~3's -> 6.5); has usually had pre-renal insults that resolve; again with likely volume depletion in the setting of hyperglycemia; will give volume challenge; however, given patient's overall instability, if no improvement in renal function, HD may need to be initiated on this admission via catheter; electrolytes currently stable; unable to accurately assess volume status as patient refused CXR; -Increasing IVF to NS at 125 cc/hr; -CXR in am; -For AVF creation tomorrow; -Avoid NSAIDS for pain; -Continue current anti-htn regimen (BP overall controlled lately); -Will give EPO before d/c (trying to avoid associated increase in BP); -f/u endocrine recs;
[2018-05-04] MEDS: (Novolin R) Insulin Human Regular 100 units/ml vial SC SCH ×4 (08:24→22:26)
--- NOTE | 2018-05-04 10:09 | CP.PCM.PN ---
Subjective - Date & Time of Evaluation Date of Evaluation: 05/04/18 Time of Evaluation: 08:30 - Subjective Subjective: Surgery Progress note. Dr. Hines Pt seen and examined at bedside. No acute events overnight. Agreeable to having AVF creation tomorrow. Objective - Vital Signs/Intake and Output Vital Signs (last 24 hours): Temp Pulse Resp BP Pulse Ox 98.6 F 96 H 20 194/117 H 98 05/03/18 23:00 05/03/18 23:00 05/03/18 23:00 05/04/18 09:49 05/03/18 23:00 Intake and Output: 05/04/18 05/04/18 06:59 18:59 Intake Total 480 Balance 480 - Medications Medications: Current Medications Amlodipine Besylate (Norvasc) 10 mg PO DAILY [facility] Last Admin: 05/04/18 09:49 Dose: 10 mg Calcitriol (Rocaltrol) 0.25 mcg PO MWF [facility] Last Admin: 05/03/18 11:07 Dose: Not Given Carvedilol (Coreg) 12.5 mg PO BID [facility] Last Admin: 05/04/18 09:49 Dose: 12.5 mg Clonidine HCl (Catapres-Tts2 0.2 Mg/24 Hr) 1 patch TD Q7D@1000 [facility] Last Admin: 05/04/18 09:54 Dose: 1 patch Dextrose (Dextrose 50% Inj) 0 ml IV STAT PRN; Protocol PRN Reason: Hypoglycemia Protocol Last Admin: 04/30/18 05:43 Dose: 50 ml Dextrose (Glutose 15) 0 gm PO ONCE PRN; Protocol PRN Reason: Hypoglycemia Protocol Last Admin: 04/30/18 04:57 Dose: 15 gm Ergocalciferol (Drisdol 50,000 Intl Units Cap) 1 cap PO Q7D [facility] Last Admin: 05/02/18 10:43 Dose: 1 cap Glucagon (Glucagen Diagnostic Kit) 0 mg IM STAT PRN; Protocol PRN Reason: Hypoglycemia Protocol Dextrose (Dextrose 5% In Water 1000 Ml) 1,000 mls @ 0 mls/hr IV .Q0M PRN; Protocol PRN Reason: Hypoglycemia Protocol Lactated Ringer's (Lactated Ringer's) 1,000 mls @ 60 mls/hr IV .[id number] [facility] Last Admin: 05/04/18 04:49 Dose: Not Given Insulin Glargine (Lantus) 15 unit SC HS [facility] Last Admin: 05/03/18 21:25 Dose: Not Given Insulin Human Regular (Novolin R) 0 unit SC ACHS [facility]; Protocol Last Admin: 05/04/18 08:24 Dose: Not Given Labetalol HCl (Trandate) 20 mg IVP Q4H PRN PRN Reason: sbp>160 Last Admin: 05/03/18 11:05 Dose: 20 mg Lorazepam (Ativan) 2 mg IVP Q6H PRN PRN Reason: Anxiety Ondansetron HCl (Zofran Inj) 4 mg IVP Q8H PRN PRN Reason: Nausea/Vomiting Last Admin: 05/04/18 01:01 Dose: 4 mg Pantoprazole Sodium (Protonix Inj) 40 mg IVP DAILY [facility] Last Admin: 05/04/18 09:50 Dose: Not Given Trazodone HCl (Desyrel) 50 mg PO BID [facility] Last Admin: 05/04/18 09:49 Dose: 50 mg - Labs Labs: 05/02/18 10:48 05/02/18 10:48 - Constitutional Appears: Non-toxic, No Acute Distress - Head Exam Head Exam: ATRAUMATIC, NORMAL INSPECTION, NORMOCEPHALIC - Eye Exam Eye Exam: EOMI, Normal appearance - ENT Exam ENT Exam: Mucous Membranes Moist - Respiratory Exam Respiratory Exam: NORMAL BREATHING PATTERN. absent: Accessory Muscle Use, R espiratory Distress - GI/Abdominal Exam GI & Abdominal Exam: Soft. absent: Firm, Guarding, Tenderness - Extremities Exam Additional comments: left arm precautions noted. - Neurological Exam Neurological Exam: Alert, Awake, Oriented x3 - Psychiatric Exam Psychiatric exam: Anxious - Skin Skin Exam: Dry, Intact, Normal Color, Warm Assessment and Plan - Assessment and Plan (Free Text) Assessment: 27yo F with CKD and in need for HD access for long-term dialysis Plan: - Will plan for OR tomorrow, 05/05 for AVF creation. - NPO after midnight tonight. Further recs as per Dr. Flora Brewster PGY2 surgery
--- NOTE | 2018-05-04 10:18 | CP.PCM.PN ---
Subjective - Date & Time of Evaluation Date of Evaluation: 05/04/18 Time of Evaluation: 10:09 - Subjective Subjective: PGY-[address] Kign's service Patient seen and examined at bedside. Patient removed IV access. Patient stated she wanted water knowing that she was NPO for OR today. Patient rescheduled for AVF placement in AM. Patient stated she wanted her ativan. Patient has poor compliance with medicine team. Patient denies fevers, chills, chest pain, sob, constipation or diarrhea, and dysuria. Objective - Vital Signs/Intake and Output Vital Signs (last 24 hours): Temp Pulse Resp BP Pulse Ox 98.6 F 96 H 20 194/117 H 98 05/03/18 23:00 05/03/18 23:00 05/03/18 23:00 05/04/18 09:49 05/03/18 23:00 Intake and Output: 05/04/18 05/04/18 06:59 18:59 Intake Total 480 Balance 480 - Medications Medications: Current Medications Amlodipine Besylate (Norvasc) 10 mg PO DAILY [facility] Last Admin: 05/04/18 09:49 Dose: 10 mg Calcitriol (Rocaltrol) 0.25 mcg PO MWF [facility] Last Admin: 05/03/18 11:07 Dose: Not Given Carvedilol (Coreg) 12.5 mg PO BID [facility] Last Admin: 05/04/18 09:49 Dose: 12.5 mg Clonidine HCl (Catapres-Tts2 0.2 Mg/24 Hr) 1 patch TD Q7D@1000 [facility] Last Admin: 05/04/18 09:54 Dose: 1 patch Dextrose (Dextrose 50% Inj) 0 ml IV STAT PRN; Protocol PRN Reason: Hypoglycemia Protocol Last Admin: 04/30/18 05:43 Dose: 50 ml Dextrose (Glutose 15) 0 gm PO ONCE PRN; Protocol PRN Reason: Hypoglycemia Protocol Last Admin: 04/30/18 04:57 Dose: 15 gm Ergocalciferol (Drisdol 50,000 Intl Units Cap) 1 cap PO Q7D [facility] Last Admin: 05/02/18 10:43 Dose: 1 cap Glucagon (Glucagen Diagnostic Kit) 0 mg IM STAT PRN; Protocol PRN Reason: Hypoglycemia Protocol Dextrose (Dextrose 5% In Water 1000 Ml) 1,000 mls @ 0 mls/hr IV .Q0M PRN; Protocol PRN Reason: Hypoglycemia Protocol Lactated Ringer's (Lactated Ringer's) 1,000 mls @ 60 mls/hr IV .[id number] [facility] Last Admin: 05/04/18 04:49 Dose: Not Given Insulin Glargine (Lantus) 15 unit SC HS [facility] Last Admin: 05/03/18 21:25 Dose: Not Given Insulin Human Regular (Novolin R) 0 unit SC ACHS [facility]; Protocol Last Admin: 05/04/18 08:24 Dose: Not Given Labetalol HCl (Trandate) 20 mg IVP Q4H PRN PRN Reason: sbp>160 Last Admin: 05/03/18 11:05 Dose: 20 mg Lorazepam (Ativan) 2 mg IVP Q6H PRN PRN Reason: Anxiety Ondansetron HCl (Zofran Inj) 4 mg IVP Q8H PRN PRN Reason: Nausea/Vomiting Last Admin: 05/04/18 01:01 Dose: 4 mg Pantoprazole Sodium (Protonix Inj) 40 mg IVP DAILY [facility] Last Admin: 05/04/18 09:50 Dose: Not Given Trazodone HCl (Desyrel) 50 mg PO BID [facility] Last Admin: 05/04/18 09:49 Dose: 50 mg - Labs Labs: 05/02/18 10:48 05/02/18 10:48 - Constitutional Appears: Non-toxic, No Acute Distress - Head Exam Head Exam: NORMAL INSPECTION, NORMOCEPHALIC Additional comments: multiple skin abnormalities resembling pustules or pimples covering face, likely from poor skin care due to dehydration - Eye Exam Eye Exam: EOMI, Normal appearance. absent: Nystagmus, Scleral icterus - ENT Exam ENT Exam: Mucous Membranes Dry - Respiratory Exam Respiratory Exam: Clear to Ausculation Bilateral, NORMAL BREATHING PATTERN. absent: Rales, Rhonchi, Wheezes - Cardiovascular Exam Cardiovascular Exam: REGULAR RHYTHM, +S1, +S2. absent: Tachycardia - GI/Abdominal Exam GI & Abdominal Exam: Soft, Normal Bowel Sounds. absent: Distended, Firm, Guarding, Rigid, Tenderness - Neurological Exam Neurological Exam: Awake, Oriented x3 Neuro motor strength exam: Left Upper Extremity: 5, Right Upper Extremity: 5, Le ft Lower Extremity: 5, Right Lower Extremity: 5 - Psychiatric Exam Psychiatric exam: Anxious, Depressed - Skin Skin Exam: Dry, Intact, Normal Color Assessment and Plan - Assessment and Plan (Free Text) Assessment: Patient is a 27 yo w/ PMH gastroparesis, GABRIELA on CKD, and DM admitted to hospital for abdominal pain and multiple episodes of emesis. Patient is well known to hospital staff for inducing vomiting, doing pseudoseizures, and complaints of abodmominal pain to coerce medical team to give dilaudid or ativan. Patient is scheduled for AVF placement for eventual dialysis. Abdominal pain gastroparesis vs forced vomiting VITALIY sys has confirmed inducing of vomiting via sticking her finger in her throat Zofran 4mg IV q6h PRN Pending midline as patient is dehydrated and has removed venous access in AM Protonix 40mg IV daily LR @ 60 cc/hr ADAT based on patient habits GABRIELA on CKD Nephrology Consulted: Dr. Nieves- recommendations as below Vasc Surgery Consulted: Dr. Tineo- pending AVF placement likely 2/2 to dehydration, prerenal etiology pending AVF placement hydrate with LR @ 60 cc/hr Calcitriol 0.25mg po MWF Ergocalciferol q7d HTN component of abdominal pain, anxiety, and being noncompliant with oral meds by vomiting Labetalol 20mg IVP q4h prn Norvasc 10mg po daily Coreg 12.5mg po bid Clonidine 0.2mg/24hr q weekly Trops negative IDDM ACHS ISS-medium Glargine 15units SC HS Hypoglycemic protocol Educate patient continuously on harmful effects of inducing vomiting on blood sugar Munchausen Syndrome Psych Consulted: Linda- recommendations as below Ativan 2mg IV q6h prn; Trazadone 50mg po bid Fakes pseudoseizures, self induction of vomiting, continuously asks for ativan Trade off ativan for medication compliance and reduction of self induced vomiting DVT ppx: SCDs, AC will be held in setting of procedure in AM GI: Protonix Madaser Chan PGY-1 Medical Managment discussed with Dr. King
[2018-05-04 14:10] LABS: BASO % 0.2 % (0.0-2.0); HEMOGLOBIN 8.9 g/dL (11.0-16.0); LYMPH # 0.3 K/uL (1.0-4.3); LYMPH % 1.4 % (20.0-40.0); MEAN CORPUSCULAR HEMOGLOBIN 28.1 pg (27.0-31.0); MEAN CORPUSCULAR HGB CONC 30.8 g/dL (33.0-37.0); MEAN PLATELET VOLUME 11.5 fL (7.2-11.7); MONO # 0.1 K/uL (0.0-0.8); MONO % 0.8 % (0.0-10.0); NEUT # 17.5 K/uL (1.8-7.0); NEUT % 97.6 % (50.0-75.0); PLATELET COUNT 278 K/uL (130-400); RBC 3.19 Mil/uL (3.80-5.20); RED CELL DISTRIBUTION WIDTH 14.8 % (11.5-14.5)
[2018-05-04 14:33] LABS: MEAN CELL VOLUME 91.3 fL (81.0-99.0); WHITE BLOOD COUNT 17.9 K/uL (4.8-10.8)
[2018-05-04 14:54] LABS: ALB/GLOB RATIO 1.4 (1.0-2.1); ALBUMIN 3.2 g/dL (3.5-5.0); CALCIUM 8.5 mg/dl (8.6-10.4)
[2018-05-04] MEDS ORDERED: Sodium Chloride 0.9% 1,000 ML IV SCH (15:15)
[2018-05-04 15:38] LABS: ANISOCYTOSIS SLIGHT; HYPOCHROMIC SLIGHT; LYMPHOCYTE 4 % (20-40); MONOCYTE 1 % (0-10); NEUTROPHIL 95 % (50-75); PLATELET ESTIMATE NORMAL (NORMAL); POIKILOCYTOSIS SLIGHT; TOTAL CELLS COUNTED 100
[2018-05-04 15:39] LABS: BURR CELLS SLIGHT; LARGE PLATELETS PRESENT; MICROCYTOSIS SLIGHT; OVALOCYTES SLIGHT; POLYCHROMIC SLIGHT; TARGET CELLS SLIGHT
[2018-05-04] MEDS: Sodium Chloride 0.9% 1,000 ML IV SCH (17:45)
[2018-05-04 18:29] LABS: ABG ALLEN TEST POS; ARTERIAL BLOOD GAS HCO3 17.8 mmol/L (21-28); ARTERIAL BLOOD GAS HEMOGLOBIN 8.7 g/dL (11.7-17.4); ARTERIAL BLOOD GAS O2 SAT 95.6 % (95-98); ARTERIAL BLOOD GAS PCO2 27 mm/Hg (35-45); ARTERIAL BLOOD GAS PH 7.36 (7.35-7.45); ARTERIAL BLOOD GAS PO2 59 mm/Hg (80-100); ARTERIAL BLOOD GAS TCO2 16.1 mmol/L (22-28)
[2018-05-04 19:05] LABS: CALCIUM 8.6 mg/dl (8.6-10.4)
[2018-05-04] MEDS ORDERED: Potassium Chl 40 mEq in D5-1/2 1,000 ML IV SCH (22:45)
[2018-05-04] MEDS: (Lantus) Insulin Glargine, Recombinant SC SCH (22:53)
[2018-05-04] MEDS ORDERED: Potassium Ch 20mEq in D5-1/2NS 1,000 ML IV ONE (23:50)
[2018-05-05] MEDS: Sodium Chloride 0.9% 1,000 ML IV SCH ×3 (01:00→19:00)
[2018-05-05 05:31] LABS: SQUAMOUS EPITHIAL < 1 /hpf (0-5); URINE BACTERIA RARE (<OCC); URINE BILIRUBIN NEGATIVE (NEGATIVE); URINE BLOOD 1+ (NEGATIVE); URINE CLARITY Clear (Clear); URINE COLOR Straw (YELLOW); URINE GLUCOSE (UA) 3+ mg/dL (Normal); URINE LEUKOCYTE ESTERASE NEG Leu/uL (Negative); URINE PROTEIN 3+ mg/dL (NEGATIVE); URINE UROBILINOGEN NORMAL mg/dL (0.2-1.0)
[2018-05-05 05:32] LABS: HCG,QUALITATIVE URINE NEGATIVE (NEGATIVE)
[2018-05-05] MEDS: (Novolin R) Insulin Human Regular 100 units/ml vial SC SCH ×4 (07:34→21:58)
--- NOTE | 2018-05-05 07:38 | CP.PCM.PN ---
Subjective - Date & Time of Evaluation Date of Evaluation: 05/05/18 Time of Evaluation: 07:38 - Subjective Subjective: Josafat Enriquez PGY2 Nephrology Note for Dr. Nieves Patient was seen and examined at bedside with pt's mother at bedside. Overnight, the patient's gluocse has improved with the long acting insulin, and she was again reported to be self-inducing vomit. She states that her abdominal pain is unchanged, and denies any shortness of breath, fevers, or dysuria. The patient is afebrile and VS are within normal limits even though BP is elevated prior to before; clonidine patch placed overnight. She is scheduled for AVF placement today, pending CXR and coags at this time. Vein mapping was done at a prior visit at [facility] under a different MRN. Objective - Vital Signs/Intake and Output Vital Signs (last 24 hours): Temp Pulse Resp BP Pulse Ox 99 F 108 H 20 180/115 H 100 05/05/18 04:53 05/05/18 04:53 05/05/18 04:53 05/05/18 04:53 05/05/18 04:53 Intake and Output: 05/05/18 05/05/18 06:59 18:59 Intake Total 3030 Balance 3030 - Medications Medications: Current Medications Amlodipine Besylate (Norvasc) 10 mg PO DAILY [facility] Last Admin: 05/04/18 09:49 Dose: 10 mg Calcitriol (Rocaltrol) 0.25 mcg PO MWF [facility] Last Admin: 05/03/18 11:07 Dose: Not Given Carvedilol (Coreg) 12.5 mg PO BID [facility] Last Admin: 05/04/18 18:30 Dose: Not Given Clonidine HCl (Catapres-Tts2 0.2 Mg/24 Hr) 1 patch TD Q7D@1000 [facility] Last Admin: 05/04/18 09:54 Dose: 1 patch Dextrose (Dextrose 50% Inj) 0 ml IV STAT PRN; Protocol PRN Reason: Hypoglycemia Protocol Last Admin: 04/30/18 05:43 Dose: 50 ml Dextrose (Glutose 15) 0 gm PO ONCE PRN; Protocol PRN Reason: Hypoglycemia Protocol Last Admin: 04/30/18 04:57 Dose: 15 gm Ergocalciferol (Drisdol 50,000 Intl Units Cap) 1 cap PO Q7D [facility] Last Admin: 05/02/18 10:43 Dose: 1 cap Glucagon (Glucagen Diagnostic Kit) 0 mg IM STAT PRN; Protocol PRN Reason: Hypoglycemia Protocol Dextrose (Dextrose 5% In Water 1000 Ml) 1,000 mls @ 0 mls/hr IV .Q0M PRN; Protocol PRN Reason: Hypoglycemia Protocol Sodium Chloride (Sodium Chloride 0.9%) 1,000 mls @ 125 mls/hr IV .Q8H [facility] Last Admin: 05/05/18 01:00 Dose: Not Given Potassium Chloride/Dextrose/Sod Cl (Potassium Chl 20 Meq In D5-1/2ns) 1,000 mls @ 100 mls/hr IV .Q10H ONE Stop: 05/05/18 09:49 Last Admin: 05/05/18 00:04 Dose: 100 mls/hr Insulin Glargine (Lantus) 15 unit SC [facility] Last Admin: 05/04/18 22:53 Dose: 15 u Insulin Human Regular (Novolin R) 0 unit SC [facility]; Protocol Last Admin: 05/05/18 07:34 Dose: Not Given Labetalol HCl (Trandate) 20 mg IVP Q4H PRN PRN Reason: sbp>160 Last Admin: 05/03/18 11:05 Dose: 20 mg Ondansetron HCl (Zofran Inj) 4 mg IVP Q8H PRN PRN Reason: Nausea/Vomiting Last Admin: 05/04/18 16:16 Dose: 4 mg Pantoprazole Sodium (Protonix Inj) 40 mg IVP DAILY [facility] Last Admin: 05/04/18 09:50 Dose: Not Given Trazodone HCl (Desyrel) 50 mg PO BID [facility] Last Admin: 05/04/18 18:30 Dose: Not Given - Labs Labs: 05/04/18 13:52 05/04/18 18:38 - Constitutional Appears: Non-toxic, In No Acute Distress, Unkempt - Head Exam Head Exam: NORMAL INSPECTION - Eye Exam Eye Exam: Normal appearance - ENT Exam ENT Exam: Mucous Membranes Dry - Neck Exam Neck Exam: Full ROM - Respiratory Exam Respiratory Exam: NORMAL BREATHING PATTERN - Cardiovascular Exam Cardiovascular Exam: RRR, +S1, +S2 - GI/Abdominal Exam GI & Abdominal Exam: Guarding, Tenderness (diffuse), Hypoactive Bowel Sounds - Extremities Exam Extremities Exam: Normal Inspection - Back Exam Back Exam: NORMAL INSPECTION - Neurological Exam Neurological Exam: Alert, Awake - Psychiatric Exam Psychiatric exam: Anxious - Skin Skin Exam: Dry, Warm, Hyperpigmentation (multiple hyperpigmented spots in area of mandible and neck b/l) Assessment and Plan - Assessment and Plan (Free Text) Assessment: Epigastric pain due to diabetic gastroparesis (chronic) - cont strict glycemic control; should not skip long acting basal insulin - Psych on board due to self-inducing of vomit - endocrinology consulted GABRIELA on CKD - no urgent indication for starting HD; will continue to monitor - planned for AVF surgery today w/ Dr. Hines - avoid NSAIDS/nephrotoxic agents - fluids switched to D5/0.45NS w/ K supplementation due to NPO status and pre- renal azotemia - f/u vascular surgery regarding recs for OR Anemia of inflammation - holding Epo until BP is well controlled - stable at this time, with no signs of overt bleeding or symptoms HTN - controlled w/ clonidine patch - labetalol IV PRN - refusing PO meds; however, nurses instructed to continue giving PO meds Secondary hyperparathyroidism - cont ergocalciferol and calcitriol Patient was discussed and evaluated with Dr. Nieves
--- NOTE | 2018-05-05 07:46 | CP.PCM.PN ---
Subjective - Date & Time of Evaluation Date of Evaluation: 05/05/18 Time of Evaluation: 10:30 - Subjective Subjective: Patient was examined at bedside this morning with mom in the room. There were no acute events over night. Discussion was held with patient and mother regarding the intended surgery for AVF creation today, postponed from yesterday secondary to patient's refusal to remain NPO yesterday. Patient expresses that she is very nervous for the surgery while trembling and crying in bed. She reports back pain with deep inspiration, otherwise denies chest pain, shortness of breath, nausea, diarrhea. Objective - Vital Signs/Intake and Output Vital Signs (last 24 hours): Temp Pulse Resp BP Pulse Ox 99 F 108 H 20 180/115 H 100 05/05/18 04:53 05/05/18 04:53 05/05/18 04:53 05/05/18 04:53 05/05/18 04:53 Intake and Output: 05/05/18 05/05/18 06:59 18:59 Intake Total 3030 Balance 3030 - Medications Medications: Current Medications Amlodipine Besylate (Norvasc) 10 mg PO DAILY [facility] Last Admin: 05/04/18 09:49 Dose: 10 mg Calcitriol (Rocaltrol) 0.25 mcg PO MWF [facility] Last Admin: 05/03/18 11:07 Dose: Not Given Carvedilol (Coreg) 12.5 mg PO BID [facility] Last Admin: 05/04/18 18:30 Dose: Not Given Clonidine HCl (Catapres-Tts2 0.2 Mg/24 Hr) 1 patch TD Q7D@1000 [facility] Last Admin: 05/04/18 09:54 Dose: 1 patch Dextrose (Dextrose 50% Inj) 0 ml IV STAT PRN; Protocol PRN Reason: Hypoglycemia Protocol Last Admin: 04/30/18 05:43 Dose: 50 ml Dextrose (Glutose 15) 0 gm PO ONCE PRN; Protocol PRN Reason: Hypoglycemia Protocol Last Admin: 04/30/18 04:57 Dose: 15 gm Ergocalciferol (Drisdol 50,000 Intl Units Cap) 1 cap PO Q7D [facility] Last Admin: 05/02/18 10:43 Dose: 1 cap Glucagon (Glucagen Diagnostic Kit) 0 mg IM STAT PRN; Protocol PRN Reason: Hypoglycemia Protocol Dextrose (Dextrose 5% In Water 1000 Ml) 1,000 mls @ 0 mls/hr IV .Q0M PRN; Protocol PRN Reason: Hypoglycemia Protocol Sodium Chloride (Sodium Chloride 0.9%) 1,000 mls @ 125 mls/hr IV .Q8H [facility] Last Admin: 05/05/18 01:00 Dose: Not Given Potassium Chloride/Dextrose/Sod Cl (Potassium Chl 20 Meq In D5-1/2ns) 1,000 mls @ 100 mls/hr IV .Q10H ONE Stop: 05/05/18 09:49 Last Admin: 05/05/18 00:04 Dose: 100 mls/hr Insulin Glargine (Lantus) 15 unit SC [facility] Last Admin: 05/04/18 22:53 Dose: 15 u Insulin Human Regular (Novolin R) 0 unit SC [facility]; Protocol Last Admin: 05/05/18 07:34 Dose: Not Given Labetalol HCl (Trandate) 20 mg IVP Q4H PRN PRN Reason: sbp>160 Last Admin: 05/03/18 11:05 Dose: 20 mg Ondansetron HCl (Zofran Inj) 4 mg IVP Q8H PRN PRN Reason: Nausea/Vomiting Last Admin: 05/04/18 16:16 Dose: 4 mg Pantoprazole Sodium (Protonix Inj) 40 mg IVP DAILY [facility] Last Admin: 05/04/18 09:50 Dose: Not Given Trazodone HCl (Desyrel) 50 mg PO BID [facility] Last Admin: 05/04/18 18:30 Dose: Not Given - Labs Labs: 05/04/18 13:52 05/04/18 18:38 - Constitutional Appears: Non-toxic, No Acute Distress - Head Exam Head Exam: ATRAUMATIC, NORMAL INSPECTION, NORMOCEPHALIC - Eye Exam Eye Exam: EOMI, Normal appearance - ENT Exam ENT Exam: Mucous Membranes Moist, Normal Exam - Neck Exam Neck Exam: Normal Inspection - Respiratory Exam Respiratory Exam: Clear to Ausculation Bilateral, NORMAL BREATHING PATTERN - Cardiovascular Exam Cardiovascular Exam: Tachycardia, REGULAR RHYTHM. absent: Murmur - GI/Abdominal Exam GI & Abdominal Exam: Soft, Normal Bowel Sounds. absent: Distended - Extremities Exam Extremities Exam: Pedal Edema. absent: Calf Tenderness - Neurological Exam Neurological Exam: Alert, Awake, Oriented x3 - Psychiatric Exam Psychiatric exam: Anxious - Skin Skin Exam: Dry, Intact, Warm Assessment and Plan - Assessment and Plan (Free Text) Assessment: Patient is a 27 year old female w/ PMH gastroparesis, HTN, GABRIELA on CKD, and DM2 admitted to hospital for evaluation and treatment of acute gastroparetic episode. Patient found to have worsening GABRIELA, scheduled for AVF creation for anticipated dialysis Plan: Gastroparesis Zofran 4mg IV q6h PRN Protonix 40mg IV daily Midline placed(T based on patient habits VITALIY sys has confirmed episodes of self-induced of vomiting GABRIELA on CKD, likely 2/2 to dehydration, pre-renal etiology Nephrology Consulted: Dr. Ezequiel Angela Surgery Consulted: Dr. Tineo AVF placement today Calcitriol 0.25mg po MWF Ergocalciferol q7d HTN Labetalol 20mg IVP q4h prn Norvasc 10mg po daily Coreg 12.5mg po bid Clonidine 0.2mg/24hr q weekly IDDM ACHS ISS-medium Glargine 15units SC HS Hypoglycemic protocol Educate patient continuously on harmful effects of inducing vomiting on blood sugar Suspected Munchausen Syndrome-suspected pseudo-seizures, self induced emesis, drug seeking behavior Psych Consulted: Jordanden Trazodone 50mg po bid Ppx VTE ppx: SCDs GI ppx: Protonix Midline placed for vascular access Patient has a Class II RCRI; correlating to a 0.9% risk of major cardiac event. Patient has been medically optimized through BP management, electrolyte repletion. Discussed with Dr. Christine Pinzon, PGY-1
[2018-05-05] MEDS: Labetalol 5mg/ml (4ml) IVP PRN (08:49)
[2018-05-05 09:28] LABS: BASO % 0.2 % (0.0-2.0); HEMOGLOBIN 9.9 g/dL (11.0-16.0); LYMPH % 6.6 % (20.0-40.0); MEAN CORPUSCULAR HEMOGLOBIN 27.6 pg (27.0-31.0); MEAN CORPUSCULAR HGB CONC 32.6 g/dL (33.0-37.0); MONO # 0.3 K/uL (0.0-0.8); MONO % 2.4 % (0.0-10.0); NEUT % 90.8 % (50.0-75.0); PLATELET COUNT 338 K/uL (130-400); RBC 3.57 Mil/uL (3.80-5.20); RED CELL DISTRIBUTION WIDTH 14.2 % (11.5-14.5); WHITE BLOOD COUNT 14.4 K/uL (4.8-10.8)
[2018-05-05 09:33] LABS: MEAN CELL VOLUME 84.7 fL (81.0-99.0)
[2018-05-05 09:35] LABS: PROTHROMBIN TIME 10.7 SECONDS (9.7-12.2)
[2018-05-05 09:51] LABS: ALB/GLOB RATIO 1.3 (1.0-2.1); ALBUMIN 3.6 g/dL (3.5-5.0); CALCIUM 8.9 mg/dl (8.6-10.4)
[2018-05-05 10:31] LABS: MONOCYTE 3 % (0-10); TOTAL CELLS COUNTED 100
[2018-05-05 10:32] LABS: HYPOCHROMIC SLIGHT; LYMPHOCYTE 8 % (20-40); NEUTROPHIL 89 % (50-75); OVALOCYTES SLIGHT; PLATELET ESTIMATE NORMAL (NORMAL)
[2018-05-05] MEDS ORDERED: Potassium Chl 40 mEq in D5-1/2 1,000 ML IV SCH (10:45)
--- NOTE | 2018-05-05 10:49 | RAD ---
Date of service: 05/05/2018 HISTORY: hypoxia COMPARISON: 04/11/2018 FINDINGS: LUNGS: No active pulmonary disease. PLEURA: No significant pleural effusion identified, no pneumothorax apparent. CARDIOVASCULAR: No aortic atherosclerotic calcification present. Normal cardiac size. No pulmonary vascular congestion. OSSEOUS STRUCTURES: No significant abnormalities. VISUALIZED UPPER ABDOMEN: Normal. OTHER FINDINGS: None. IMPRESSION: No active disease.
[2018-05-05] MEDS ORDERED: Labetalol 25mg/5ml Syringe IVP ONE (11:00)
[2018-05-05] MEDS ORDERED: Potassium Chl 40 mEq in D5-NS 1,000 ML IV ONE (12:15)
[2018-05-05] MEDS ORDERED: HEPARIN-NS 5,000 UNITS/500 ML 0 UNIT/0 ML BAG IV ONE (14:51)
[2018-05-05] MEDS ORDERED: ceFAZolin 1 gm in NS 0 GM/0 ML BAG IVPB ONE (14:51)
--- NOTE | 2018-05-05 15:26 | CP.PCM.PN ---
Subjective - Date & Time of Evaluation Date of Evaluation: 05/05/18 Time of Evaluation: 15:23 - Subjective Subjective: Vascular Surgery Progress Note for Dr. Hines 27F seen and evaluated at bedside. No acute events. No complaints. Denies f/c, n/v/d, SOB, CP. Objective - Vital Signs/Intake and Output Vital Signs (last 24 hours): Temp Pulse Resp BP Pulse Ox 99.2 F 94 H 20 175/107 H 100 05/05/18 07:45 05/05/18 12:51 05/05/18 07:45 05/05/18 12:51 05/05/18 07:45 Intake and Output: 05/05/18 05/05/18 06:59 18:59 Intake Total 3030 900 Balance 3030 900 - Medications Medications: Current Medications Amlodipine Besylate (Norvasc) 10 mg PO DAILY [facility] Last Admin: 05/05/18 11:57 Dose: 10 mg Calcitriol (Rocaltrol) 0.25 mcg PO MWF [facility] Last Admin: 05/05/18 09:01 Dose: Not Given Carvedilol (Coreg) 12.5 mg PO BID [facility] Last Admin: 05/05/18 11:57 Dose: 12.5 mg Clonidine HCl (Catapres-Tts2 0.2 Mg/24 Hr) 1 patch TD Q7D@1000 [facility] Last Admin: 05/04/18 09:54 Dose: 1 patch Dextrose (Dextrose 50% Inj) 0 ml IV STAT PRN; Protocol PRN Reason: Hypoglycemia Protocol Last Admin: 04/30/18 05:43 Dose: 50 ml Dextrose (Glutose 15) 0 gm PO ONCE PRN; Protocol PRN Reason: Hypoglycemia Protocol Last Admin: 04/30/18 04:57 Dose: 15 gm Ergocalciferol (Drisdol 50,000 Intl Units Cap) 1 cap PO Q7D [facility] Last Admin: 05/02/18 10:43 Dose: 1 cap Glucagon (Glucagen Diagnostic Kit) 0 mg IM STAT PRN; Protocol PRN Reason: Hypoglycemia Protocol Dextrose (Dextrose 5% In Water 1000 Ml) 1,000 mls @ 0 mls/hr IV .Q0M PRN; Protocol PRN Reason: Hypoglycemia Protocol Potassium Chloride/Dextrose/Sod Cl (D5-Ns1l+40meq Kcl) 1,000 mls @ 50 mls/hr IV .Q20H ONE Stop: 05/06/18 08:14 Last Admin: 05/05/18 12:45 Dose: 50 mls/hr Insulin Glargine (Lantus) 15 unit SC HS [facility] Last Admin: 05/04/18 22:53 Dose: 15 u Insulin Human Regular (Novolin R) 0 unit SC ACHS [facility]; Protocol Labetalol HCl (Trandate) 20 mg IVP Q4H PRN PRN Reason: sbp>160 Last Admin: 05/05/18 08:49 Dose: 20 mg Ondansetron HCl (Zofran Inj) 4 mg IVP Q8H PRN PRN Reason: Nausea/Vomiting Last Admin: 05/05/18 08:54 Dose: 4 mg Pantoprazole Sodium (Protonix Inj) 40 mg IVP DAILY [facility] Last Admin: 05/05/18 09:00 Dose: 40 mg Trazodone HCl (Desyrel) 50 mg PO BID [facility] Last Admin: 05/05/18 09:01 Dose: Not Given - Labs Labs: 05/05/18 09:23 05/05/18 09:23 PT 10.7 SECONDS (9.7-12.2) 05/05/18 09:23 INR 1.0 05/05/18 09:23 APTT 26 SECONDS (21-34) 05/05/18 09:23 - Constitutional Appears: Non-toxic, No Acute Distress - Head Exam Head Exam: ATRAUMATIC, NORMAL INSPECTION, NORMOCEPHALIC - Eye Exam Eye Exam: EOMI - ENT Exam ENT Exam: Mucous Membranes Moist - Neurological Exam Neurological Exam: Alert, Awake - Psychiatric Exam Psychiatric exam: Normal Affect, Normal Mood Assessment and Plan - Assessment and Plan (Free Text) Assessment: 27F w/ ESRD scheduled for AV Fistula - postponed until Thursday05/07/18 Plan: Renal diet Will proceed to OR on 05/07/18 for AVF Medical management per primary D/w Dr. Flora Luciano PGY1
[2018-05-05] MEDS: (Lantus) Insulin Glargine, Recombinant SC SCH (22:23)
--- NOTE | 2018-05-05 23:28 | CON ---
DATE: 05/05/2018 ENDOCRINOLOGY CONSULT LOCATION: Room 672. HISTORY OF PRESENT ILLNESS: This is a 27-year-old female with known history of type 1 insulin-dependent diabetes, presenting here with generalized body weakness and supervening diffuse abdominal pain with intractable vomiting and is now being referred for diabetic evaluation and management. PAST MEDICAL HISTORY: History of uncontrolled type 1 insulin-dependent diabetes with multiple admissions for extremes of glycemic fluctuations from either hypoglycemia to diabetic ketoacidosis and dehydration. 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 She also has been reported to high dose intake of anxiolytics such as Xanax medications as noted. There is also reported a possible pseudoseizures with recurrent admissions for the same. FAMILY HISTORY: Possible diabetes and hypertension. SOCIAL HISTORY: Patient has supportive family. No known substance use. REVIEW OF SYSTEMS: Admits to generalized body weakness with progressive bouts of dizziness and lightheadedness and suboptimal energy level. Also admits to visual, blurry, and bifrontal headaches. No chest pains or palpitations but admits to progressive shortness of breath, especially on exertion. Her oral intake has been extremely poor and suboptimal with nausea, dyspepsia, and intractable vomiting episodes. PHYSICAL EXAMINATION: GENERAL: This is an average-built female, in no apparent distress. VITAL SIGNS: Blood pressure 140/80, pulse of 100 beats per minute and regular, temperature 98, respirations 20. Height is 5 feet 3 inches, weight is 150 pounds. HEENT: Head is normocephalic. Eyes: Anicteric with pale conjunctivae. Funduscopy not possible at this time. Ears, nose, and throat, otherwise, normal. NECK: Supple. Thyroid gland is normal size. No carotid bruits or cervical adenopathy. CARDIOPULMONARY: Some adynamic precordium. S1 and S2 are rapid and regular. LUNGS: Clear to auscultation. ABDOMEN: Flat, soft with positive bowel sounds. EXTREMITIES: No peripheral edema. Pulses are +2 bilaterally. LABORATORY DATA: Initially showed a BUN of 57, sodium 131, potassium 3.3, chloride 96, CO2 of 28, glucose 508, and creatinine 6.5. Her glucose levels have ranged from 228 to 325 mg/dL. 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 PLAN OF MANAGEMENT: As the patient has been kept NPO at this time, we will modify her coverage scale to a low dose algorithm using regular insulin as given to obviate hypoglycemia and detailed orders have been modified and given. We will also continue the Lantus given as 15 units at bedtime, and we will titrate incrementally as her oral intact is advanced or as fasting hyperglycemic levels supervene. Serial chemistries will be obtained. We will obtain a hemoglobin A1c to confirm her prior hyperglycemic control, and baseline thyroid function studies and the lipid panel will be ordered. We also add a parathyroid hormone intact level to screen for underlying secondary hyperparathyroidism. We will follow and advised accordingly. Greta Mcgill MD
--- NOTE | 2018-05-06 06:46 | CP.PCM.PN ---
Subjective - Date & Time of Evaluation Date of Evaluation: 05/06/18 Time of Evaluation: 09:30 - Subjective Subjective: Patient evaluated at bedside. Per nursing notes and overnight resident reports, pt had an episode of anxiety overnight causing her great distress. Pt was requesting ativan by name, saying it was the only thing that could aid with her anxiety. Pt was not given medication, and her display quickly subsided. Surgery planned for yesterday's AVF's creation was postponed due to a surgical emergency. Surgery currently scheduled for Thursday. Pt reports continued anxiety and still requests medication. Reports persistent nausea and vomiting. Pt denies chest pain. Objective - Vital Signs/Intake and Output Vital Signs (last 24 hours): Temp Pulse Resp BP Pulse Ox 99.3 F 89 20 157/89 H 98 05/06/18 00:00 05/06/18 00:00 05/06/18 00:00 05/06/18 00:00 05/06/18 00:00 Intake and Output: 05/05/18 05/06/18 18:59 06:59 Intake Total 1440 Balance 1440 - Medications Medications: Current Medications Amlodipine Besylate (Norvasc) 10 mg PO DAILY [facility] Last Admin: 05/05/18 11:57 Dose: 10 mg Calcitriol (Rocaltrol) 0.25 mcg PO MWF [facility] Last Admin: 05/05/18 09:01 Dose: Not Given Carvedilol (Coreg) 12.5 mg PO BID [facility] Last Admin: 05/05/18 17:28 Dose: 12.5 mg Clonidine HCl (Catapres-Tts2 0.2 Mg/24 Hr) 1 patch TD Q7D@1000 [facility] Last Admin: 05/04/18 09:54 Dose: 1 patch Dextrose (Dextrose 50% Inj) 0 ml IV STAT PRN; Protocol PRN Reason: Hypoglycemia Protocol Last Admin: 04/30/18 05:43 Dose: 50 ml Dextrose (Glutose 15) 0 gm PO ONCE PRN; Protocol PRN Reason: Hypoglycemia Protocol Last Admin: 04/30/18 04:57 Dose: 15 gm Ergocalciferol (Drisdol 50,000 Intl Units Cap) 1 cap PO Q7D [facility] Last Admin: 05/02/18 10:43 Dose: 1 cap Glucagon (Glucagen Diagnostic Kit) 0 mg IM STAT PRN; Protocol PRN Reason: Hypoglycemia Protocol Dextrose (Dextrose 5% In Water 1000 Ml) 1,000 mls @ 0 mls/hr IV .Q0M PRN; Protocol PRN Reason: Hypoglycemia Protocol Sodium Chloride (Sodium Chloride 0.9%) 1,000 mls @ 80 mls/hr IV .[id number] [facility] Last Admin: 05/05/18 19:00 Dose: 80 mls/hr Insulin Glargine (Lantus) 15 unit SC HS [facility] Last Admin: 05/05/18 22:23 Dose: 15 u Insulin Human Regular (Novolin R) 0 unit SC [facility]; Protocol Last Admin: 05/05/18 21:58 Dose: Not Given Labetalol HCl (Trandate) 20 mg IVP Q4H PRN PRN Reason: sbp>160 Last Admin: 05/05/18 08:49 Dose: 20 mg Ondansetron HCl (Zofran Inj) 4 mg IVP Q8H PRN PRN Reason: Nausea/Vomiting Last Admin: 05/06/18 02:36 Dose: 4 mg Pantoprazole Sodium (Protonix Inj) 40 mg IVP DAILY [facility] Last Admin: 05/05/18 09:00 Dose: 40 mg Trazodone HCl (Desyrel) 50 mg PO BID [facility] Last Admin: 05/05/18 17:28 Dose: 50 mg - Labs Labs: 05/05/18 09:23 05/05/18 09:23 PT 10.7 SECONDS (9.7-12.2) 05/05/18 09:23 INR 1.0 05/05/18 09:23 APTT 26 SECONDS (21-34) 05/05/18 09:23 - Additional Findings Additional findings: - Constitutional Appears: Non-toxic, No Acute Distress - Head Exam Head Exam: ATRAUMATIC, NORMAL INSPECTION, NORMOCEPHALIC - Eye Exam Eye Exam: EOMI, Normal appearance - ENT Exam ENT Exam: Mucous Membranes Moist, Normal Exam - Neck Exam Neck Exam: Normal Inspection - Respiratory Exam Respiratory Exam: Clear to Ausculation Bilateral, NORMAL BREATHING PATTERN - Cardiovascular Exam Cardiovascular Exam: Tachycardia, REGULAR RHYTHM. absent: Murmur - GI/Abdominal Exam GI & Abdominal Exam: Soft, Normal Bowel Sounds. absent: Distended - Extremities Exam Extremities Exam: Pedal Edema. absent: Calf Tenderness - Neurological Exam Neurological Exam: Alert, Awake, Oriented x3 - Psychiatric Exam Psychiatric exam: Anxious - Skin Skin Exam: Dry, Intact, Warm Assessment and Plan - Assessment and Plan (Free Text) Assessment: Patient is a 27 year old female w/ PMH gastroparesis, HTN, GABRIELA on CKD, and DM2 admitted to hospital for evaluation and treatment of acute gastroparetic episode. Patient found to have worsening GABRIELA, scheduled for AVF creation for anticipated dialysis Plan: Patient to go for surgery tomorrow for AVF creation with Dr. Hines; NPO after midnight and hold HS insulin Gastroparesis Zofran 4mg IV q6h PRN Protonix 40mg IV daily Midline placed(05/04/17) ADAT based on patient habits, currently diabetic renal diet AVAsys has confirmed episodes of self-induced of vomiting GABRIELA on CKD, likely 2/2 to dehydration, pre-renal etiology Nephrology Consulted: Dr. Ezequiel Angela Surgery Consulted: Dr. Hines AVF placement tomorrow Calcitriol 0.25mg po MWF Ergocalciferol q7d HTN Labetalol 20mg IVP q4h prn, 5mg IVP q4h Norvasc 10mg po daily Coreg 12.5mg po bid Clonidine patch TID Q7D IDDM ACHS ISS-medium Novolog 10U AC Glargine 30 units SC HS Hypoglycemic protocol Educate patient on harmful effects of inducing vomiting on blood sugar Endocrinology, Dr. Mcgill consulted Suspected Munchausen Syndrome-suspected pseudo-seizures, self induced emesis, drug seeking behavior Psych Consulted: Ozden Trazodone 50mg po bid Discuss anxiolytic medication options with psych Ppx VTE ppx: SCDs GI ppx: Protonix Midline placed for vascular access Patient has a Class II RCRI; correlating to a 0.9% risk of major cardiac event. Patient has been medically optimized through BP management, electrolyte repletion. Discussed with Dr. Christine Pinzon, PGY-1
[2018-05-06] MEDS: Sodium Chloride 0.9% 1,000 ML IV SCH ×3 (08:00→21:00)
[2018-05-06] MEDS: (Novolin R) Insulin Human Regular 100 units/ml vial SC SCH (08:35)
[2018-05-06 09:08] LABS: BASO % 0.3 % (0.0-2.0); HEMOGLOBIN 9.9 g/dL (11.0-16.0); LYMPH % 7.1 % (20.0-40.0); MEAN CELL VOLUME 86.3 fL (81.0-99.0); MEAN CORPUSCULAR HEMOGLOBIN 28.5 pg (27.0-31.0); MEAN PLATELET VOLUME 10.6 fL (7.2-11.7); MONO % 5.4 % (0.0-10.0); NEUT # 9.3 K/uL (1.8-7.0); NEUT % 87.2 % (50.0-75.0); PLATELET COUNT 312 K/uL (130-400); RBC 3.46 Mil/uL (3.80-5.20); RED CELL DISTRIBUTION WIDTH 14.2 % (11.5-14.5); WHITE BLOOD COUNT 10.7 K/uL (4.8-10.8)
[2018-05-06 09:09] LABS: LYMPH # 0.8 K/uL (1.0-4.3); MONO # 0.6 K/uL (0.0-0.8)
[2018-05-06 09:37] LABS: ANISOCYTOSIS SLIGHT; HYPOCHROMIC SLIGHT; LYMPHOCYTE 9 % (20-40); MONOCYTE 2 % (0-10); NEUTROPHIL 89 % (50-75); PLATELET ESTIMATE NORMAL (NORMAL); POIKILOCYTOSIS SLIGHT; TOTAL CELLS COUNTED 100
[2018-05-06 09:38] LABS: ACANTHOCYTES SLIGHT
[2018-05-06 09:40] LABS: ALB/GLOB RATIO 1.2 (1.0-2.1); ALBUMIN 3.2 g/dL (3.5-5.0); CALCIUM 8.2 mg/dl (8.6-10.4)
[2018-05-06] MEDS: (Novolog) Insulin Aspart, Recombinant 100 u/ml 10 ml vial SC SCH ×5 (12:07→22:09)
--- NOTE | 2018-05-06 12:20 | PN ---
DATE: 05/06/2018 LOCATION: Room 672. SUBJECTIVE: This is a 27-year-old female with recent uncontrolled type 1 insulin-dependent diabetes, now with supervening hyperglycemic acceleration as noted overnight. Her glucose levels have ranged from to 403 mg/dL. Her hemoglobin A1c is actually near optimal at 7.3% as noted. Her chemistry showed a BUN of 41, sodium 134, potassium 3.3, chloride 101, CO2 of 20, glucose 549, and creatinine 6.1. Her abdominal pain has now subsided and also the vomiting episodes have subsided with accepted hyperglycemic accelerations as noted above. So, at this time, we will restart her now on a more physiological basal and bolus insulin regimen as given. We will start her with Lantus at the higher dosing of 30 units subcutaneous at bedtime daily as given. We will also add Novolin given at 10 units t.i.d. before meals as ordered. We will obtain serial chemistries and supplement accordingly. We will also modify the coverage scale with a very low dose correction scale using NovoLog to obviate hypoglycemia and detailed orders have been given. Her IV hydration has still been lower range infusion of 80 mL per hour as ordered. We will follow and advise accordingly. Greta Mcgill MD
--- NOTE | 2018-05-06 13:19 | CP.PCM.PN ---
Subjective - Date & Time of Evaluation Date of Evaluation: 05/06/18 Time of Evaluation: 12:50 - Subjective Subjective: Josafat Enriquez PGY2 Nephrology Note for Dr. Nieves Patient was seen and examined at bedside. Overnight, the patient had anxiety per nursing notes. She is still complaining of nausea/vomiting, but denies fevers/chills, chest pain or shortness of breath. AVF surgery was postponed till tomorrow, Thursday. Renal function is stable, and insulin coverage has been adjusted by endo. Objective - Vital Signs/Intake and Output Vital Signs (last 24 hours): Temp Pulse Resp BP Pulse Ox 99.2 F 104 H 20 180/106 H 99 05/06/18 07:00 05/06/18 07:00 05/06/18 07:00 05/06/18 07:00 05/06/18 07:00 - Medications Medications: Current Medications Amlodipine Besylate (Norvasc) 10 mg PO DAILY [facility] Last Admin: 05/06/18 10:55 Dose: Not Given Calcitriol (Rocaltrol) 0.25 mcg PO MWF [facility] Last Admin: 05/05/18 09:01 Dose: Not Given Carvedilol (Coreg) 12.5 mg PO BID [facility] Last Admin: 05/06/18 10:55 Dose: Not Given Clonidine HCl (Catapres-Tts2 0.2 Mg/24 Hr) 1 patch TD Q7D@1000 [facility] Last Admin: 05/04/18 09:54 Dose: 1 patch Dextrose (Dextrose 50% Inj) 0 ml IV STAT PRN; Protocol PRN Reason: Hypoglycemia Protocol Last Admin: 04/30/18 05:43 Dose: 50 ml Dextrose (Glutose 15) 0 gm PO ONCE PRN; Protocol PRN Reason: Hypoglycemia Protocol Last Admin: 04/30/18 04:57 Dose: 15 gm Ergocalciferol (Drisdol 50,000 Intl Units Cap) 1 cap PO Q7D [facility] Last Admin: 05/02/18 10:43 Dose: 1 cap Glucagon (Glucagen Diagnostic Kit) 0 mg IM STAT PRN; Protocol PRN Reason: Hypoglycemia Protocol Dextrose (Dextrose 5% In Water 1000 Ml) 1,000 mls @ 0 mls/hr IV .Q0M PRN; Protocol PRN Reason: Hypoglycemia Protocol Sodium Chloride (Sodium Chloride 0.9%) 1,000 mls @ 80 mls/hr IV .[id number] [facility] Last Admin: 05/06/18 11:03 Dose: 80 mls/hr Insulin Aspart (Novolog) 10 unit SC AC [facility] Last Admin: 05/06/18 12:07 Dose: 10 unit Insulin Aspart (Novolog) 0 unit SC ACHS [facility] Last Admin: 05/06/18 12:08 Dose: 6 unit Insulin Glargine (Lantus) 30 unit SC HS [facility] Labetalol HCl (Trandate) 20 mg IVP Q4H PRN PRN Reason: sbp>160 Last Admin: 05/05/18 08:49 Dose: 20 mg Ondansetron HCl (Zofran Inj) 4 mg IVP Q8H PRN PRN Reason: Nausea/Vomiting Last Admin: 05/06/18 11:02 Dose: 4 mg Pantoprazole Sodium (Protonix Inj) 40 mg IVP DAILY [facility] Last Admin: 05/06/18 10:54 Dose: 40 mg Trazodone HCl (Desyrel) 50 mg PO BID [facility] Last Admin: 05/06/18 10:55 Dose: Not Given - Labs Labs: 05/06/18 08:56 05/06/18 08:56 PT 10.7 SECONDS (9.7-12.2) 05/05/18 09:23 INR 1.0 05/05/18 09:23 APTT 26 SECONDS (21-34) 05/05/18 09:23 - Constitutional Appears: Non-toxic, No Acute Distress, Unkempt - Head Exam Head Exam: NORMAL INSPECTION - Eye Exam Eye Exam: Normal appearance - ENT Exam ENT Exam: Mucous Membranes Dry - Neck Exam Neck Exam: Full ROM - Respiratory Exam Respiratory Exam: NORMAL BREATHING PATTERN - Cardiovascular Exam Cardiovascular Exam: RRR, +S1, +S2 - GI/Abdominal Exam GI & Abdominal Exam: Guarding, Tenderness (diffuse), Normal Bowel Sounds - Extremities Exam Extremities Exam: Normal Inspection - Back Exam Back Exam: NORMAL INSPECTION - Neurological Exam Neurological Exam: Alert, Awake - Psychiatric Exam Psychiatric exam: Anxious - Skin Skin Exam: Dry, Warm, Hyperpigmentation (multiple hyperpigmented spots in area of mandible and neck b/l) Assessment and Plan - Assessment and Plan (Free Text) Assessment: Epigastric pain due to diabetic gastroparesis (chronic) - cont strict glycemic control; should not skip long acting basal insulin - Psych on board due to self-inducing of vomit - endocrinology consulted GABRIELA on CKD - no urgent indication for starting HD; will continue to monitor - planned for AVF surgery erica w/ Dr. Hines - avoid NSAIDS/nephrotoxic agents - cont IVF for pre-renal azotemia - f/u vascular surgery regarding recs for OR Anemia of inflammation - holding Epo until BP is well controlled - stable at this time, with no signs of overt bleeding or symptoms HTN - controlled w/ clonidine patch - labetalol IV PRN - refusing PO meds; however, nurses instructed to continue giving PO meds Secondary hyperparathyroidism - cont ergocalciferol and calcitriol Patient was discussed and evaluated with Dr. Nieves
[2018-05-06] MEDS: Labetalol 5mg/ml (4ml) IVP PRN ×2 (16:59→22:11)
[2018-05-06] MEDS: Dextrose 50% SYRINGE Inj (50 ml) IV PRN (17:31)
[2018-05-06] MEDS ORDERED: (Lantus) Insulin Glargine, Recombinant SC SCH (22:00)
[2018-05-07] MEDS: Labetalol 5mg/ml (4ml) IVP PRN ×2 (04:42→17:16)
--- NOTE | 2018-05-07 08:32 | CP.PCM.PN ---
Subjective - Date & Time of Evaluation Date of Evaluation: 05/07/18 Time of Evaluation: 08:25 - Subjective Subjective: Nephrology progress note for Dr. Nieves Patient states she's still not feeling well. Admits to nausea, and abdominal pain. No cp, sob. Mostly bed bound. States she's going for AVF placement this AM. Objective - Vital Signs/Intake and Output Vital Signs (last 24 hours): Temp Pulse Resp BP Pulse Ox 98.9 F 94 H 20 183/91 H 96 05/07/18 07:00 05/07/18 07:00 05/07/18 07:00 05/07/18 07:00 05/07/18 07:00 - Medications Medications: Current Medications Amlodipine Besylate (Norvasc) 10 mg PO DAILY [facility] Last Admin: 05/06/18 10:55 Dose: Not Given Calcitriol (Rocaltrol) 0.25 mcg PO MWF [facility] Last Admin: 05/05/18 09:01 Dose: Not Given Carvedilol (Coreg) 12.5 mg PO BID [facility] Last Admin: 05/06/18 20:33 Dose: Not Given Clonidine HCl (Catapres-Tts2 0.2 Mg/24 Hr) 1 patch TD Q7D@1000 [facility] Last Admin: 05/04/18 09:54 Dose: 1 patch Dextrose (Dextrose 50% Inj) 0 ml IV STAT PRN; Protocol PRN Reason: Hypoglycemia Protocol Last Admin: 05/06/18 17:31 Dose: 50 ml Dextrose (Glutose 15) 0 gm PO ONCE PRN; Protocol PRN Reason: Hypoglycemia Protocol Last Admin: 04/30/18 04:57 Dose: 15 gm Ergocalciferol (Drisdol 50,000 Intl Units Cap) 1 cap PO Q7D [facility] Last Admin: 05/02/18 10:43 Dose: 1 cap Glucagon (Glucagen Diagnostic Kit) 0 mg IM STAT PRN; Protocol PRN Reason: Hypoglycemia Protocol Dextrose (Dextrose 5% In Water 1000 Ml) 1,000 mls @ 0 mls/hr IV .Q0M PRN; Protocol PRN Reason: Hypoglycemia Protocol Sodium Chloride (Sodium Chloride 0.9%) 1,000 mls @ 80 mls/hr IV .[id number] [facility] Last Admin: 05/06/18 21:00 Dose: 80 mls/hr Insulin Aspart (Novolog) 10 unit SC AC [facility] Last Admin: 05/06/18 17:35 Dose: Not Given Insulin Aspart (Novolog) 0 unit SC ACHS [facility] Last Admin: 05/06/18 22:09 Dose: Not Given Insulin Glargine (Lantus) 30 unit SC HS [facility] Labetalol HCl (Trandate) 20 mg IVP Q4H PRN PRN Reason: sbp>160 Last Admin: 05/07/18 04:42 Dose: 20 mg Ondansetron HCl (Zofran Inj) 4 mg IVP Q8H PRN PRN Reason: Nausea/Vomiting Last Admin: 05/06/18 20:59 Dose: 4 mg Pantoprazole Sodium (Protonix Inj) 40 mg IVP DAILY [facility] Last Admin: 05/06/18 10:54 Dose: 40 mg Trazodone HCl (Desyrel) 50 mg PO BID [facility] Last Admin: 05/06/18 20:34 Dose: Not Given - Labs Labs: 05/06/18 08:56 05/06/18 08:56 PT 10.7 SECONDS (9.7-12.2) 05/05/18 09:23 INR 1.0 05/05/18 09:23 APTT 26 SECONDS (21-34) 05/05/18 09:23 - Constitutional Appears: Unkempt, Older Than Stated Age, Chronically Ill - Head Exam Head Exam: ATRAUMATIC, NORMAL INSPECTION, NORMOCEPHALIC - Eye Exam Eye Exam: Normal appearance - ENT Exam ENT Exam: Mucous Membranes Moist - Neck Exam Neck Exam: Normal Inspection - Respiratory Exam Respiratory Exam: Clear to Ausculation Bilateral, NORMAL BREATHING PATTERN. absent: Rales, Rhonchi, Wheezes, Respiratory Distress, Stridor - Cardiovascular Exam Cardiovascular Exam: REGULAR RHYTHM, +S1, +S2. absent: Murmur - GI/Abdominal Exam GI & Abdominal Exam: Soft, Tenderness (diffusely ), Normal Bowel Sounds. 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 Status: Acute (4) Chronic kidney disease-mineral and bone disorder Assessment & Plan: Continue with calcitriol 0.2 mcg MWF, and drisdol 1 cap q7 Status: Chronic (5) Nephrotic syndrome Status: Chronic (6) Hypertensive CKD (chronic kidney disease) Assessment & Plan: CONTINUE WITH NORVASC, COREG, AND CLONIDINE PATCHQ7 Status: Acute - Assessment and Plan (Free Text) Plan: Further recommendations as per Dr. Nieves.
[2018-05-07] MEDS: Sodium Chloride 0.9% 1,000 ML IV SCH ×4 (08:40→23:05)
[2018-05-07] MEDS: (Novolog) Insulin Aspart, Recombinant 100 u/ml 10 ml vial SC SCH ×6 (09:23→22:18)
[2018-05-07] MEDS ORDERED: (Novolog) Insulin Aspart, Recombinant 100 u/ml 10 ml vial SC ONE (09:30)
[2018-05-07] MEDS ORDERED: Potassium Chloride 20 mEq ER Tab PO ONE (09:45)
--- NOTE | 2018-05-07 10:16 | CP.PCM.PN ---
Subjective - Date & Time of Evaluation Date of Evaluation: 05/07/18 Time of Evaluation: 06:45 - Subjective Subjective: Patient examined at bedside with mother in room. No acute events overnight. Pt refusing morning labs. Pt reports increasing anxiety regarding her upcoming AVF creation today and displays increasing physical symptoms of anxiety including trembling, crying, and gagging as our conversation progresses. Pt reports she has not had anything to eat since midnight. Reports continued symptoms of anxiety, SOB, abdominal pain, nausea, vomiting. Objective - Vital Signs/Intake and Output Vital Signs (last 24 hours): Temp Pulse Resp BP Pulse Ox 98.9 F 94 H 20 183/91 H 96 05/07/18 07:00 05/07/18 07:00 05/07/18 07:00 05/07/18 08:49 05/07/18 07:00 - Medications Medications: Current Medications Amlodipine Besylate (Norvasc) 10 mg PO DAILY [facility] Last Admin: 05/07/18 10:01 Dose: Not Given Calcitriol (Rocaltrol) 0.25 mcg PO MWF [facility] [place] Last Admin: 05/07/18 08:50 Dose: 0.25 mcg Carvedilol (Coreg) 12.5 mg PO BID [facility] [place] Last Admin: 05/07/18 10:01 Dose: Not Given Clonidine HCl (Catapres-Tts2 0.2 Mg/24 Hr) 1 patch TD Q7D@1000 [facility] Last Admin: 05/04/18 09:54 Dose: 1 patch Dextrose (Dextrose 50% Inj) 0 ml IV STAT PRN; Protocol PRN Reason: Hypoglycemia Protocol Last Admin: 05/06/18 17:31 Dose: 50 ml Dextrose (Glutose 15) 0 gm PO ONCE PRN; Protocol PRN Reason: Hypoglycemia Protocol Last Admin: 04/30/18 04:57 Dose: 15 gm Ergocalciferol (Drisdol 50,000 Intl Units Cap) 1 cap PO Q7D [facility] [place] Last Admin: 05/02/18 10:43 Dose: 1 cap Glucagon (Glucagen Diagnostic Kit) 0 mg IM STAT PRN; Protocol PRN Reason: Hypoglycemia Protocol Dextrose (Dextrose 5% In Water 1000 Ml) 1,000 mls @ 0 mls/hr IV .Q0M PRN; Protocol PRN Reason: Hypoglycemia Protocol Sodium Chloride (Sodium Chloride 0.9%) 1,000 mls @ 80 mls/hr IV .[id number] [facility] [place] Last Admin: 05/07/18 10:03 Dose: 80 mls/hr Insulin Aspart (Novolog) 10 unit SC AC [facility] [place] Last Admin: 05/07/18 09:27 Dose: Not Given Insulin Aspart (Novolog) 0 unit SC ACHS [facility] [place] Last Admin: 05/07/18 09:23 Dose: 5 unit Insulin Glargine (Lantus) 30 unit SC HS [facility] [place] Labetalol HCl (Trandate) 20 mg IVP Q4H PRN PRN Reason: sbp>160 Last Admin: 05/07/18 04:42 Dose: 20 mg Ondansetron HCl (Zofran Inj) 4 mg IVP Q8H PRN PRN Reason: Nausea/Vomiting Last Admin: 05/06/18 20:59 Dose: 4 mg Pantoprazole Sodium (Protonix Inj) 40 mg IVP DAILY [facility] [place] Last Admin: 05/07/18 09:04 Dose: 40 mg Trazodone HCl (Desyrel) 50 mg PO BID [facility] [place] Last Admin: 05/07/18 09:10 Dose: 50 mg - Labs Labs: 05/06/18 08:56 05/06/18 08:56 PT 10.7 SECONDS (9.7-12.2) 05/05/18 09:23 INR 1.0 05/05/18 09:23 APTT 26 SECONDS (21-34) 05/05/18 09:23 - Additional Findings Additional findings: - Constitutional Appears: Non-toxic, No Acute Distress - Head Exam Head Exam: ATRAUMATIC, NORMAL INSPECTION, NORMOCEPHALIC - Eye Exam Eye Exam: EOMI, Normal appearance - ENT Exam ENT Exam: Mucous Membranes Moist, Normal Exam - Neck Exam Neck Exam: Normal Inspection - Respiratory Exam Respiratory Exam: Clear to Ausculation Bilateral, NORMAL BREATHING PATTERN - Cardiovascular Exam Cardiovascular Exam: Tachycardia, REGULAR RHYTHM. absent: Murmur - GI/Abdominal Exam GI & Abdominal Exam: Soft, Normal Bowel Sounds. absent: Distended - Extremities Exam Extremities Exam: Pedal Edema. absent: Calf Tenderness - Neurological Exam Neurological Exam: Alert, Awake, Oriented x3 - Psychiatric Exam Psychiatric exam: Anxious - Skin Skin Exam: Dry, Intact, Warm Assessment and Plan - Assessment and Plan (Free Text) Assessment: Patient is a 27 year old female w/ PMH of DM2 with associated gastroparesis, HTN, GABRIELA on CKD, admitted to hospital for evaluation and treatment of acute gastroparetic episode. Patient found to have worsening GABRIELA, scheduled for AVF creation for anticipated dialysis Plan: Anxious pre-operatively, given ativan 0.5mg IVP x1 Hyperglycemic overnight and through morning, instructed nurse to follow up w/ Dr. Mcgill regarding BG management Gastroparesis Zofran 4mg IV q6h PRN Protonix 40mg IV daily Midline placed(05/04/17) Hypokalemic: replete as needed ADAT based on patient habits, currently diabetic renal diet AVAsys has confirmed episodes of self-induced of vomiting GABRIELA on CKD, likely 2/2 to dehydration, pre-renal etiology Nephrology Consulted: Dr. Ezequiel Angela Surgery Consulted: Dr. Tineo AVF placement tomorrow Calcitriol 0.25mg po MWF Ergocalciferol q7d HTN Labetalol 20mg IVP q4h prn, 5mg IVP q4h Norvasc 10mg po daily Coreg 12.5mg po bid Clonidine patch TID Q7D IDDM ACHS ISS-medium Novolog 10U AC Glargine 30 units SC HS Hypoglycemic protocol Educate patient on harmful effects of inducing vomiting on blood sugar Endocrinology, Dr. Mcgill consulted; Dr. Ballard covering while on vacation Suspected Munchausen Syndrome-suspected pseudo-seizures, self induced emesis, drug seeking behavior Psych Consulted: Linda; Borderline and depressive disorder-signed off Trazodone 50mg po bid Ppx VTE ppx: SCDs GI ppx: Protonix Midline placed for vascular access Patient has a Class II RCRI; correlating to a 0.9% risk of major cardiac event. Patient has been medically optimized through BP management, electrolyte repletion. Discussed with Dr. Christine Pinzon, PGY-1
[2018-05-07 13:12] LABS: BASO # 0.1 K/uL (0.0-0.2); BASO % 0.8 % (0.0-2.0); EOS % 0.1 % (0.0-4.0); HEMOGLOBIN 9.4 g/dL (11.0-16.0); LYMPH # 1.5 K/uL (1.0-4.3); MEAN CELL VOLUME 85.2 fL (81.0-99.0); MEAN CORPUSCULAR HEMOGLOBIN 28.3 pg (27.0-31.0); MEAN CORPUSCULAR HGB CONC 33.2 g/dL (33.0-37.0); MEAN PLATELET VOLUME 10.5 fL (7.2-11.7); MONO # 0.7 K/uL (0.0-0.8); MONO % 6.9 % (0.0-10.0); NEUT # 7.3 K/uL (1.8-7.0); NEUT % 76.2 % (50.0-75.0); RBC 3.33 Mil/uL (3.80-5.20); RED CELL DISTRIBUTION WIDTH 13.9 % (11.5-14.5); WHITE BLOOD COUNT 9.6 K/uL (4.8-10.8)
[2018-05-07] MEDS ORDERED: ceFAZolin 1 gm in NS 1 GM/100 ML BAG IVPB ONE (13:19)
[2018-05-07] MEDS ORDERED: HEPARIN-NS 5,000 UNITS/500 ML 5,000 UNIT/500 ML BAG IV ONE (13:20)
[2018-05-07] MEDS ORDERED: Iohexol 240 (50 ml) ONE (13:21)
[2018-05-07 13:29] LABS: ALB/GLOB RATIO 1.1 (1.0-2.1); ALBUMIN 2.9 g/dL (3.5-5.0); CALCIUM 8.4 mg/dl (8.6-10.4)
[2018-05-07 14:14] LABS: PROTHROMBIN TIME 10.5 SECONDS (9.7-12.2)
[2018-05-07] MEDS ORDERED: Papaverine Hydrochloride 30 mg/ml (2ml) ONE (15:39)
[2018-05-07] MEDS ORDERED: Sodium Chloride 0.9% 500 ML IV ONE (16:41)
[2018-05-07] MEDS: HYDROmorphone 0.5 mg/0.5 ml ISec IVP PRN ×3 (16:41→18:50)
--- NOTE | 2018-05-07 16:42 | PCM.SURG1 ---
Surgeon's Initial Post Op Note - Surgeon's Notes Surgeon: Dr. Hines Signal Intelligence/Electronic Warfare: Narcisa PGY2 Type of Anesthesia: General Endo Anesthesia Administered By: Katy Solano CRNA Pre-Operative Diagnosis: Chronic Kidney Disease Operative Findings: See operative report Post-Operative Diagnosis: Same Operation Performed: Left Arm Brachio-Brachial Arteriovenous Fistula Specimen/Specimens Removed: none Estimated Blood Loss: EBL {In ML}: 10 Blood Products Given: N/A Drains Used: No Drains Post-Op Condition: Fair Date of Surgery/Procedure: 05/07/18 Time of Surgery/Procedure: 16:42
--- NOTE | 2018-05-07 17:57 | PN ---
DATE: 05/07/2018 LOCATION: Room 672. SUBJECTIVE: This is a 27-year-old female with known history of type 1 insulin-dependent diabetes with multiple diabetic microvascular and macrovascular complications presenting here with progressive azotemia and end-stage renal disease and is now being followed closely for metabolic management. She underwent an AV fistula insertion procedure today as noted. The medical staff actually held the overnight insulin despite the insistence that the basal insulin be given and only the morning Novolog insulin be withheld because of her n.p.o. status. Hyperglycemic levels have supervened and glucose values today have ranged from 262 to 388 and 431 mg/dL. LABORATORY DATA: Her chemistries showed a BUN of 34, sodium 133, potassium 3, chloride 103, CO2 of 22, glucose 216 and creatinine 5.3. ASSESSMENT AND PLAN: This is a 27-year-old female with uncontrolled and decompensated type 1 insulin-dependent diabetes with extremes of glycemic fluctuation also because of the recent withholding of the insulin regimen as ordered. As her oral intake will be advanced and resumed today, then we will also resume her basal and bolus insulin regimen as given. We will re-order her Lantus given as 30 units subcutaneous at bedtime daily as given. We will also restart Novolog given as 10 units three times a day with meals as ordered. We will obtain serial chemistries and supplement accordingly as needed. We will follow. Greta Mcgill MD
[2018-05-07] MEDS ORDERED: Potassium Chloride 20 mEq/15 ml LIQ UD PO SCH (20:00)
[2018-05-07] MEDS: Potassium Chloride 20 mEq 100 ML IV SCH ×2 (22:00→23:01)
--- NOTE | 2018-05-08 01:34 | OP ---
PROCEDURE DATE: 05/07/2018 PREOPERATIVE DIAGNOSIS: Renal failure. POSTOPERATIVE DIAGNOSIS: Renal failure. PROCEDURE PERFORMED: Brachio-brachial fistula, left elbow. SURGEON: Tawanda Hines Jr., MD ROUGH ROUNDER MACHINE: Rafael Brewster DO ANESTHESIOLOGIST: Katy Solano CRNA INDICATIONS: The patient is a 27-year-old with renal failure, not yet on dialysis. OPERATIVE FINDINGS: A preoperative vein mapping suggested there was an adequate basilic vein in the arm; however, our immediate preoperative vein mapping showed there were really no adequate veins in the arm. 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 Because of this, we created an end-to-side fistula at the elbow between the brachial artery and the adjacent brachial vein. This resulted in good flow and maintenance of a pulse at the wrist, but I have doubts as to whether or not this will prove adequate for use for dialysis even with revisions. Nonetheless, the patient went through the procedure uneventfully and the procedure was carried out using loupe magnification, heparin anticoagulation, and vessel loupe control of the vessels. A [id number] fistula with disruption of the distal valve, so a bidirectional fistula was carried out at the elbow. The major limiting factor is the small size of the artery in the peter no really good veins to be used in the arm. I then feel at this site proper fistula first would be appropriate rather than attempt to create a shunt at this time. Tawanda Hines Jr., MD MTDAranza
[2018-05-08] MEDS: (Novolog) Insulin Aspart, Recombinant 100 u/ml 10 ml vial SC SCH ×6 (07:02→22:50)
--- NOTE | 2018-05-08 09:55 | CP.PCM.PN ---
Subjective - Date & Time of Evaluation Date of Evaluation: 05/08/18 Time of Evaluation: 07:15 - Subjective Subjective: Vascular Surgery Pt seen and examined. No acute events overnight, blood sugars still in 400s. BPs elevated overnight. Complaining of pain at surgical site this AM. No numbness or tingling. Objective - Vital Signs/Intake and Output Vital Signs (last 24 hours): Temp Pulse Resp BP Pulse Ox 97.5 F L 96 H 20 159/97 H 100 05/08/18 08:11 05/08/18 08:11 05/08/18 08:11 05/08/18 09:08 05/08/18 08:11 - Medications Medications: Current Medications Acetaminophen (Tylenol 325mg Tab) 650 mg PO Q6 PRN PRN Reason: pain or fever > 100.4F Last Admin: 05/08/18 03:43 Dose: 650 mg Amlodipine Besylate (Norvasc) 10 mg PO DAILY [facility] Last Admin: 05/08/18 09:08 Dose: 10 mg Calcitriol (Rocaltrol) 0.25 mcg PO MWF [facility] Last Admin: 05/07/18 08:50 Dose: 0.25 mcg Carvedilol (Coreg) 12.5 mg PO BID [facility] Last Admin: 05/08/18 09:08 Dose: 12.5 mg Clonidine HCl (Catapres-Tts2 0.2 Mg/24 Hr) 1 patch TD Q7D@1000 [facility] Last Admin: 05/04/18 09:54 Dose: 1 patch Dextrose (Dextrose 50% Inj) 0 ml IV STAT PRN; Protocol PRN Reason: Hypoglycemia Protocol Last Admin: 05/06/18 17:31 Dose: 50 ml Dextrose (Glutose 15) 0 gm PO ONCE PRN; Protocol PRN Reason: Hypoglycemia Protocol Last Admin: 04/30/18 04:57 Dose: 15 gm Ergocalciferol (Drisdol 50,000 Intl Units Cap) 1 cap PO Q7D [facility] Last Admin: 05/02/18 10:43 Dose: 1 cap Glucagon (Glucagen Diagnostic Kit) 0 mg IM STAT PRN; Protocol PRN Reason: Hypoglycemia Protocol Dextrose (Dextrose 5% In Water 1000 Ml) 1,000 mls @ 0 mls/hr IV .Q0M PRN; Protocol PRN Reason: Hypoglycemia Protocol Potassium Chloride 40 meq/ (Sodium Chloride) 1,020 mls @ 80 mls/hr IV .[id number] [facility] Insulin Aspart (Novolog) 10 unit SC AC [facility] Last Admin: 05/08/18 07:02 Dose: 10 unit Insulin Aspart (Novolog) 0 unit SC ACHS [facility] Last Admin: 05/08/18 08:04 Dose: 5 unit Insulin Glargine (Lantus) 30 unit SC HS [facility] Labetalol HCl (Trandate) 20 mg IVP Q4H PRN PRN Reason: sbp>160 Last Admin: 05/07/18 17:16 Dose: 20 mg Metoclopramide HCl (Reglan) 10 mg IVP ACHS [facility] Ondansetron HCl (Zofran Inj) 4 mg IVP Q8H PRN PRN Reason: Nausea/Vomiting Last Admin: 05/06/18 20:59 Dose: 4 mg Pantoprazole Sodium (Protonix Inj) 40 mg IVP DAILY [facility] Last Admin: 05/08/18 09:08 Dose: 40 mg Trazodone HCl (Desyrel) 50 mg PO BID [facility] Last Admin: 05/08/18 09:08 Dose: 50 mg - Labs Labs: 05/07/18 13:02 05/07/18 13:02 PT 10.5 SECONDS (9.7-12.2) 05/07/18 13:02 INR 1.0 05/07/18 13:02 APTT 22 SECONDS (21-34) 05/07/18 13:02 - Constitutional Appears: Non-toxic, No Acute Distress - Head Exam Head Exam: ATRAUMATIC, NORMOCEPHALIC - Eye Exam Eye Exam: EOMI. absent: Scleral icterus - Respiratory Exam Respiratory Exam: NORMAL BREATHING PATTERN. absent: Respiratory Distress - GI/Abdominal Exam GI & Abdominal Exam: Soft. absent: Distended, Tenderness - Extremities Exam Extremities Exam: Tenderness (at incision site of left arm) Additional comments: L arm dressing C/D/I, motor intact. +Thrill and bruit in fistula - Neurological Exam Neurological Exam: Alert, Awake, Oriented x3 - Skin Skin Exam: Dry, Warm Assessment and Plan - Assessment and Plan (Free Text) Assessment: 27F POD#1 S/P L arm AVF Plan: pain control blood sugar and BP control per medicine team. OK for DC from a surgical standpoint, follow up with Dr. Hines in 2 weeks Will D/W Dr. Flora Murray PGY4
[2018-05-08] MEDS ORDERED: Oxycodone/Acetaminophen 5/325 mg Tab PO PRN ×2 (10:00→16:23)
[2018-05-08 11:37] LABS: ABG ALLEN TEST POS; ARTERIAL BLOOD GAS HCO3 23.2 mmol/L (21-28); ARTERIAL BLOOD GAS O2 SAT 97.5 % (95-98); ARTERIAL BLOOD GAS PCO2 31 mm/Hg (35-45); ARTERIAL BLOOD GAS PH 7.44 (7.35-7.45); ARTERIAL BLOOD GAS PO2 65 mm/Hg (80-100); ARTERIAL BLOOD GAS TCO2 22.1 mmol/L (22-28)
[2018-05-08 12:01] LABS: BASO # 0.1 K/uL (0.0-0.2); BASO % 0.8 % (0.0-2.0); EOS % 0.3 % (0.0-4.0); HEMOGLOBIN 9.1 g/dL (11.0-16.0); LYMPH # 1.7 K/uL (1.0-4.3); LYMPH % 19.1 % (20.0-40.0); MEAN CELL VOLUME 86.8 fL (81.0-99.0); MEAN CORPUSCULAR HEMOGLOBIN 28.6 pg (27.0-31.0); MEAN CORPUSCULAR HGB CONC 32.9 g/dL (33.0-37.0); MEAN PLATELET VOLUME 10.5 fL (7.2-11.7); MONO # 0.7 K/uL (0.0-0.8); NEUT # 6.5 K/uL (1.8-7.0); NEUT % 71.8 % (50.0-75.0); RBC 3.18 Mil/uL (3.80-5.20); RED CELL DISTRIBUTION WIDTH 14.2 % (11.5-14.5)
[2018-05-08 12:17] LABS: ALB/GLOB RATIO 1.1 (1.0-2.1); ALBUMIN 2.7 g/dL (3.5-5.0); CALCIUM 8.4 mg/dl (8.6-10.4)
[2018-05-08] MEDS ORDERED: HYDROmorphone 0.5 mg/0.5 ml ISec IVP STA (12:55)
--- NOTE | 2018-05-08 17:34 | PN ---
DATE: 05/08/2018 ENDOCRINOLOGY NOTE LOCATION: Room 672. SUBJECTIVE: This is a 27-year-old female with recent uncontrolled type 1 insulin dependent diabetes, presented here with progressive azotemia and end-stage renal disease and is now followed closely for metabolic management. Marked hyperglycemic accelerations have been noted for the last few days since the withhold by the medical staff of her basal insulin as initially ordered by me on admission. Her glucose values today increased from 2302 to 2992 mg/dL. Her latest chemistries showed a BUN of 30, sodium 133, potassium 3, chloride 103, CO2 of 22, glucose 216 and creatinine 0.3. This time, we will resume a much higher dose regimen given in combination with NovoLog given at 14 units t.i.d. before meals to start today as ordered. We will also continue the higher regimen of Lantus given as 34 units . We will titrate the medications to optimize metabolic control. We will follow. Greta Mcgill MD
[2018-05-08] MEDS: HYDROmorphone 0.5 mg/0.5 ml ISec IVP PRN (17:43)
--- NOTE | 2018-05-08 19:28 | CP.PCM.PN ---
Subjective - Date & Time of Evaluation Date of Evaluation: 05/08/18 Time of Evaluation: 11:00 - Subjective Subjective: PGY-[address] King's service Patient seen and examined at bedside. States she is having pain in her arm fistula. Denies fevers, chills, chest pain, sob, n/v , constipation or diarrhea, and dysuria. Objective - Vital Signs/Intake and Output Vital Signs (last 24 hours): Temp Pulse Resp BP Pulse Ox 97.5 F L 96 H 20 155/96 H 100 05/08/18 08:11 05/08/18 08:11 05/08/18 08:11 05/08/18 17:17 05/08/18 08:11 - Medications Medications: Current Medications Acetaminophen (Tylenol 325mg Tab) 650 mg PO Q6 PRN PRN Reason: pain or fever > 100.4F Last Admin: 05/08/18 03:43 Dose: 650 mg Amlodipine Besylate (Norvasc) 10 mg PO DAILY [facility] Last Admin: 05/08/18 09:08 Dose: 10 mg Calcitriol (Rocaltrol) 0.25 mcg PO MWF [facility] Last Admin: 05/07/18 08:50 Dose: 0.25 mcg Carvedilol (Coreg) 12.5 mg PO BID [facility] Last Admin: 05/08/18 17:17 Dose: 12.5 mg Clonidine HCl (Catapres-Tts2 0.2 Mg/24 Hr) 1 patch TD Q7D@1000 [facility] Last Admin: 05/04/18 09:54 Dose: 1 patch Dextrose (Dextrose 50% Inj) 0 ml IV STAT PRN; Protocol PRN Reason: Hypoglycemia Protocol Last Admin: 05/06/18 17:31 Dose: 50 ml Dextrose (Glutose 15) 0 gm PO ONCE PRN; Protocol PRN Reason: Hypoglycemia Protocol Last Admin: 04/30/18 04:57 Dose: 15 gm Ergocalciferol (Drisdol 50,000 Intl Units Cap) 1 cap PO Q7D [facility] Last Admin: 05/02/18 10:43 Dose: 1 cap Glucagon (Glucagen Diagnostic Kit) 0 mg IM STAT PRN; Protocol PRN Reason: Hypoglycemia Protocol Hydromorphone HCl (Dilaudid) 0.5 mg IVP Q6H PRN PRN Reason: Pain, severe (8-10) Last Admin: 05/08/18 17:43 Dose: 0.5 mg Dextrose (Dextrose 5% In Water 1000 Ml) 1,000 mls @ 0 mls/hr IV .Q0M PRN; Protocol PRN Reason: Hypoglycemia Protocol Potassium Chloride 40 meq/ (Sodium Chloride) 1,020 mls @ 80 mls/hr IV .[id number] [facility] Last Admin: 05/08/18 10:17 Dose: 80 mls/hr Insulin Aspart (Novolog) 0 unit SC ACHS [facility] Last Admin: 05/08/18 17:15 Dose: Not Given Insulin Aspart (Novolog) 14 unit SC AC [facility] Last Admin: 05/08/18 17:14 Dose: 14 units Insulin Glargine (Lantus) 30 unit SC HS [facility] Insulin Glargine (Lantus) 34 unit SC HS [facility] Labetalol HCl (Trandate) 20 mg IVP Q4H PRN PRN Reason: sbp>160 Last Admin: 05/07/18 17:16 Dose: 20 mg Metoclopramide HCl (Reglan) 10 mg IVP ACHS [facility] Last Admin: 05/08/18 17:19 Dose: 10 mg Ondansetron HCl (Zofran Inj) 4 mg IVP Q8H PRN PRN Reason: Nausea/Vomiting Last Admin: 05/08/18 10:35 Dose: 4 mg Oxycodone/Acetaminophen (Percocet 5/325 Mg Tab) 1 tab PO Q6H PRN PRN Reason: Pain, moderate (4-7) Stop: 05/11/18 10:01 Last Admin: 05/08/18 18:32 Dose: 1 tab Pantoprazole Sodium (Protonix Inj) 40 mg IVP DAILY [facility] Last Admin: 05/08/18 09:08 Dose: 40 mg Trazodone HCl (Desyrel) 50 mg PO BID [facility] Last Admin: 05/08/18 17:17 Dose: Not Given - Labs Labs: 05/08/18 11:54 05/08/18 11:54 PT 10.5 SECONDS (9.7-12.2) 05/07/18 13:02 INR 1.0 05/07/18 13:02 APTT 22 SECONDS (21-34) 05/07/18 13:02 - Additional Findings Additional findings: - Constitutional Appears: Non-toxic, No Acute Distress - Head Exam Head Exam: ATRAUMATIC, NORMAL INSPECTION, NORMOCEPHALIC - Eye Exam Eye Exam: EOMI, Normal appearance - ENT Exam ENT Exam: Mucous Membranes Moist, Normal Exam - Neck Exam Neck Exam: Normal Inspection - Respiratory Exam Respiratory Exam: Clear to Ausculation Bilateral, NORMAL BREATHING PATTERN - Cardiovascular Exam Cardiovascular Exam: Tachycardia, REGULAR RHYTHM. absent: Murmur - GI/Abdominal Exam GI & Abdominal Exam: Soft, Normal Bowel Sounds. absent: Distended - Extremities Exam Extremities Exam: Pedal Edema. absent: Calf Tenderness - Neurological Exam Neurological Exam: Alert, Awake, Oriented x3 - Psychiatric Exam Psychiatric exam: Anxious - Skin Skin Exam: Dry, Intact, Warm Assessment and Plan - Assessment and Plan (Free Text) Assessment: Patient is a 27 year old female w/ PMH of DM2 with associated gastroparesis, HTN, GABRIELA on CKD, admitted to hospital for evaluation and treatment of acute gastroparetic episode. Patient found to have worsening GABRIELA. POD AVF placement on 05/07. Plan: Gastroparesis Zofran 4mg IV q6h PRN Reglan with meals Protonix 40mg IV daily Midline placed(05/04/17) ADAT based on patient habits, currently diabetic renal diet AVAsys has confirmed episodes of self-induced of vomiting GABRIELA on CKD, likely 2/2 to dehydration, pre-renal etiology Nephrology Consulted: Dr. Ezequiel Angela Surgery Consulted: Dr. Tineo AVF placement tomorrow Calcitriol 0.25mg po MWF Ergocalciferol q7d HTN Labetalol 20mg IVP q4h prn, 5mg IVP q4h Norvasc 10mg po daily Coreg 12.5mg po bid Clonidine patch TID Q7D IDDM ACHS ISS-medium Novolog 10U AC Glargine 30 units SC HS Hypoglycemic protocol Educate patient on harmful effects of inducing vomiting on blood sugar Endocrinology, Dr. Mcgill consulted; Dr. Ballard covering while on vacation Suspected Munchausen Syndrome-suspected pseudo-seizures, self induced emesis, drug seeking behavior Psych Consulted: Linda; Borderline and depressive disorder-signed off Trazodone 50mg po bid Ppx VTE ppx: SCDs GI ppx: Protonix Midline placed for vascular access Patient has a Class II RCRI; correlating to a 0.9% risk of major cardiac event. Patient has been medically optimized through BP management, electrolyte repletion. Discussed with Dr. Christine Giles, PGY-1
[2018-05-08] MEDS: (Lantus) Insulin Glargine, Recombinant SC SCH (22:34)
--- NOTE | 2018-05-08 23:58 | CP.PCM.PN ---
Subjective - Date & Time of Evaluation Date of Evaluation: 05/08/18 Time of Evaluation: 14:30 - Subjective Subjective: Patient able to consume some soup today; did vomit this morning; L arm pain improved; Objective - Vital Signs/Intake and Output Vital Signs (last 24 hours): Temp Pulse Resp BP Pulse Ox 97.5 F L 96 H 20 155/96 H 100 05/08/18 08:11 05/08/18 08:11 05/08/18 08:11 05/08/18 17:17 05/08/18 08:11 - Medications Medications: Current Medications Acetaminophen (Tylenol 325mg Tab) 650 mg PO Q6 PRN PRN Reason: pain or fever > 100.4F Last Admin: 05/08/18 03:43 Dose: 650 mg Amlodipine Besylate (Norvasc) 10 mg PO DAILY [facility] Last Admin: 05/08/18 09:08 Dose: 10 mg Calcitriol (Rocaltrol) 0.25 mcg PO MWF [facility] Last Admin: 05/07/18 08:50 Dose: 0.25 mcg Carvedilol (Coreg) 12.5 mg PO BID [facility] Last Admin: 05/08/18 17:17 Dose: 12.5 mg Clonidine HCl (Catapres-Tts2 0.2 Mg/24 Hr) 1 patch TD Q7D@1000 [facility] Last Admin: 05/04/18 09:54 Dose: 1 patch Dextrose (Dextrose 50% Inj) 0 ml IV STAT PRN; Protocol PRN Reason: Hypoglycemia Protocol Last Admin: 05/06/18 17:31 Dose: 50 ml Dextrose (Glutose 15) 0 gm PO ONCE PRN; Protocol PRN Reason: Hypoglycemia Protocol Last Admin: 04/30/18 04:57 Dose: 15 gm Ergocalciferol (Drisdol 50,000 Intl Units Cap) 1 cap PO Q7D [facility] Last Admin: 05/02/18 10:43 Dose: 1 cap Glucagon (Glucagen Diagnostic Kit) 0 mg IM STAT PRN; Protocol PRN Reason: Hypoglycemia Protocol Hydromorphone HCl (Dilaudid) 0.5 mg IVP Q6H PRN PRN Reason: Pain, severe (8-10) Last Admin: 05/08/18 17:43 Dose: 0.5 mg Dextrose (Dextrose 5% In Water 1000 Ml) 1,000 mls @ 0 mls/hr IV .Q0M PRN; Prot ocol PRN Reason: Hypoglycemia Protocol Potassium Chloride 40 meq/ (Sodium Chloride) 1,020 mls @ 80 mls/hr IV .[id number] [facility] Last Admin: 05/08/18 22:31 Dose: 80 mls/hr Insulin Aspart (Novolog) 0 unit SC ACHS [facility] Last Admin: 05/08/18 22:50 Dose: Not Given Insulin Aspart (Novolog) 14 unit SC AC [facility] Last Admin: 05/08/18 17:14 Dose: 14 units Insulin Glargine (Lantus) 30 unit SC HS [facility] Insulin Glargine (Lantus) 34 unit SC HS [facility] Last Admin: 05/08/18 22:34 Dose: Not Given Labetalol HCl (Trandate) 20 mg IVP Q4H PRN PRN Reason: sbp>160 Last Admin: 05/07/18 17:16 Dose: 20 mg Metoclopramide HCl (Reglan) 10 mg IVP [facility] Last Admin: 05/08/18 22:31 Dose: 10 mg Ondansetron HCl (Zofran Inj) 4 mg IVP Q8H PRN PRN Reason: Nausea/Vomiting Last Admin: 05/08/18 10:35 Dose: 4 mg Oxycodone/Acetaminophen (Percocet 5/325 Mg Tab) 1 tab PO Q6H PRN PRN Reason: Pain, moderate (4-7) Stop: 05/11/18 10:01 Last Admin: 05/08/18 18:32 Dose: 1 tab Pantoprazole Sodium (Protonix Inj) 40 mg IVP DAILY [facility] Last Admin: 05/08/18 09:08 Dose: 40 mg Trazodone HCl (Desyrel) 50 mg PO BID [facility] Last Admin: 05/08/18 17:17 Dose: Not Given - Labs Labs: 05/08/18 11:54 05/08/18 11:54 PT 10.5 SECONDS (9.7-12.2) 05/07/18 13:02 INR 1.0 05/07/18 13:02 APTT 22 SECONDS (21-34) 05/07/18 13:02 - Constitutional Appears: Non-toxic, No Acute Distress - Eye Exam Eye Exam: Normal appearance - Respiratory Exam Respiratory Exam: Clear to Ausculation Bilateral. absent: Respiratory Distress - Cardiovascular Exam Cardiovascular Exam: RRR, +S1, +S2 - GI/Abdominal Exam GI & Abdominal Exam: Soft - Extremities Exam Additional comments: no leg edema; Assessment and Plan (1) Ahaaa-di-utcichu kidney injury Assessment & Plan: GABRIELA on CKD IV/IV; pre-renal etiology v progression of CKD; showing some improvement now that vomiting decreased; mild hypokalemia noted; otherwise stable volume and electrolyte status; no indication for HD at this time; New L arm AVF with good bruit; -avoid nephrotoxic agents; -continue IVF w/ NS at 80 cc/hr w/ 40 meq/L KCl; -small dose dilaudid 0.5 mg q6h prn for AVF surgical site pain; Status: Acute (2) Hypertensive CKD (chronic kidney disease) Assessment & Plan: BP still elevated but improved; needs to be on PO meds regularly; continue same doses; Status: Acute (3) Anemia in CKD (chronic kidney disease) Assessment & Plan: Hgb stable but below goal; will give dose of EPO before d/c; Status: Chronic (4) Chronic kidney disease-mineral and bone disorder Assessment & Plan: Continue ergocalciferol and calcitriol; Status: Chronic
[2018-05-09] MEDS: HYDROmorphone 0.5 mg/0.5 ml ISec IVP PRN ×3 (00:31→18:12)
[2018-05-09] MEDS ORDERED: (Novolin R) Insulin Human Regular 100 units/ml vial SC STA ×2 (02:41→03:05)
--- NOTE | 2018-05-09 03:55 | CP.PCM.PN ---
Subjective - Date & Time of Evaluation Date of Evaluation: 05/09/18 Time of Evaluation: 03:52 - Subjective Subjective: Medicine Progress Note Patient seen at bedside with mother. Patient reports being in pain s/p AVF. Per RN patient wants insulin and BG in the 300s. No insulin order. Objective - Vital Signs/Intake and Output Vital Signs (last 24 hours): Temp Pulse Resp BP Pulse Ox 98.3 F 83 20 142/88 96 05/08/18 23:55 05/09/18 03:15 05/09/18 02:15 05/09/18 03:15 05/09/18 00:28 - Medications Medications: Current Medications Acetaminophen (Tylenol 325mg Tab) 650 mg PO Q6 PRN PRN Reason: pain or fever > 100.4F Last Admin: 05/08/18 03:43 Dose: 650 mg Amlodipine Besylate (Norvasc) 10 mg PO DAILY [facility] Last Admin: 05/08/18 09:08 Dose: 10 mg Calcitriol (Rocaltrol) 0.25 mcg PO MWF [facility] Last Admin: 05/07/18 08:50 Dose: 0.25 mcg Carvedilol (Coreg) 12.5 mg PO BID [facility] Last Admin: 05/08/18 17:17 Dose: 12.5 mg Clonidine HCl (Catapres-Tts2 0.2 Mg/24 Hr) 1 patch TD Q7D@1000 [facility] Last Admin: 05/04/18 09:54 Dose: 1 patch Dextrose (Dextrose 50% Inj) 0 ml IV STAT PRN; Protocol PRN Reason: Hypoglycemia Protocol Last Admin: 05/06/18 17:31 Dose: 50 ml Dextrose (Glutose 15) 0 gm PO ONCE PRN; Protocol PRN Reason: Hypoglycemia Protocol Last Admin: 04/30/18 04:57 Dose: 15 gm Ergocalciferol (Drisdol 50,000 Intl Units Cap) 1 cap PO Q7D [facility] Last Admin: 05/02/18 10:43 Dose: 1 cap Glucagon (Glucagen Diagnostic Kit) 0 mg IM STAT PRN; Protocol PRN Reason: Hypoglycemia Protocol Hydromorphone HCl (Dilaudid) 0.5 mg IVP Q6H PRN PRN Reason: Pain, severe (8-10) Last Admin: 05/09/18 00:31 Dose: 0.5 mg Dextrose (Dextrose 5% In Water 1000 Ml) 1,000 mls @ 0 mls/hr IV .Q0M PRN; Protocol PRN Reason: Hypoglycemia Protocol Potassium Chloride 40 meq/ (Sodium Chloride) 1,020 mls @ 80 mls/hr IV .[id number] [facility] Last Admin: 05/08/18 22:31 Dose: 80 mls/hr Insulin Aspart (Novolog) 0 unit SC ACHS [facility] Last Admin: 05/08/18 22:50 Dose: Not Given Insulin Aspart (Novolog) 14 unit SC AC [facility] Last Admin: 05/08/18 17:14 Dose: 14 units Insulin Glargine (Lantus) 30 unit SC HS [facility] Insulin Glargine (Lantus) 34 unit SC HS [facility] Last Admin: 05/08/18 22:34 Dose: Not Given Labetalol HCl (Trandate) 20 mg IVP Q4H PRN PRN Reason: sbp>160 Last Admin: 05/07/18 17:16 Dose: 20 mg Metoclopramide HCl (Reglan) 10 mg IVP [facility] Last Admin: 05/08/18 22:31 Dose: 10 mg Ondansetron HCl (Zofran Inj) 4 mg IVP Q8H PRN PRN Reason: Nausea/Vomiting Last Admin: 05/09/18 02:19 Dose: 4 mg Oxycodone/Acetaminophen (Percocet 5/325 Mg Tab) 1 tab PO Q6H PRN PRN Reason: Pain, moderate (4-7) Stop: 05/11/18 10:01 Last Admin: 05/08/18 18:32 Dose: 1 tab Pantoprazole Sodium (Protonix Inj) 40 mg IVP DAILY [facility] Last Admin: 05/08/18 09:08 Dose: 40 mg Trazodone HCl (Desyrel) 50 mg PO BID [facility] Last Admin: 05/08/18 17:17 Dose: Not Given - Labs Labs: 05/08/18 11:54 05/08/18 11:54 PT 10.5 SECONDS (9.7-12.2) 05/07/18 13:02 INR 1.0 05/07/18 13:02 APTT 22 SECONDS (21-34) 05/07/18 13:02 - Constitutional Appears: Well, Non-toxic - Eye Exam Eye Exam: Normal appearance - Neck Exam Neck Exam: Normal Inspection - Respiratory Exam Respiratory Exam: Clear to Ausculation Bilateral, NORMAL BREATHING PATTERN - Cardiovascular Exam Cardiovascular Exam: REGULAR RHYTHM - GI/Abdominal Exam GI & Abdominal Exam: Soft, Normal Bowel Sounds - Back Exam Back Exam: NORMAL INSPECTION - Neurological Exam Neurological Exam: Alert, Awake - Psychiatric Exam Psychiatric exam: Normal Affect, Normal Mood - Skin Skin Exam: Dry, Intact, Normal Color, Warm Assessment and Plan - Assessment and Plan (Free Text) Assessment: 27 year old female w/ PMH of DM2 with associated gastroparesis, HTN, GABRIELA on CKD, admitted to hospital for evaluation and treatment of acute gastroparetic episode. Patient found to have worsening GABRIELA. POD AVF placement on 05/07. Gastroparesis Zofran 4mg IV q6h PRN Reglan with meals Protonix 40mg IV daily Midline placed(05/04/17) ADAT based on patient habits, currently diabetic renal diet AVAsys has confirmed episodes of self-induced of vomiting GABRIELA on CKD likely 2/2 to dehydration, pre-renal etiology Nephrology Consulted: Dr. Nieves [facility] Surgery Consulted: Dr. Tineo AVF placement 05/07 Calcitriol 0.25mg po MWF Ergocalciferol q7d HTN Labetalol 20mg IVP q4h prn, 5mg IVP q4h Norvasc 10mg po daily Coreg 12.5mg po bid Clonidine patch TID Q7D IDDM ACHS ISS-medium Novolog 10U AC Glargine 30 units SC HS Hypoglycemic protocol Educate patient on harmful effects of inducing vomiting on blood sugar Endocrinology, Dr. Mcgill consulted; Dr. Ballard covering while on vacation Suspected Munchausen Syndrome -suspected pseudo-seizures, self induced emesis, drug seeking behavior Psych Consulted: Linda; Borderline and depressive disorder-signed off Trazodone 50mg po bid Ppx VTE ppx: SCDs GI ppx: Protonix Midline placed for vascular access Patient has a Class II RCRI; correlating to a 0.9% risk of major cardiac event. Patient has been medically optimized through BP management, electrolyte repletion.
[2018-05-09] MEDS ORDERED: HYDROmorphone 0.5 mg/0.5 ml ISec IVP STA (05:40)
[2018-05-09] MEDS: (Novolog) Insulin Aspart, Recombinant 100 u/ml 10 ml vial SC SCH ×6 (08:10→17:25)
[2018-05-09] MEDS: Ergocalciferol 50,000 Intl Units Cap PO SCH (09:06)
--- NOTE | 2018-05-09 15:35 | PN ---
DATE: 05/09/2018 FOLLOWUP VISIT The patient is seen by , who is out of town and I am covering for DrTabby for this patient. SUBJECTIVE: Mrs. Larry today feels somewhat weak. She still has complaints of nausea and periodic vomiting. There was previous history of gastroparesis for which the patient has been treated with metoclopramide prior to meals. Yet, she has poor intake and her overall food intake has been erratic all along during this hospitalization and also her episodes of vomiting are unpredictable. This unfortunately interferes significantly with her glycemic control. The patient can be hypoglycemic having a glucose level of 45 up to 466 depending on her intake and gastrointestinal status. PHYSICAL EXAMINATION: GENERAL: She is sitting in bed, comfortable. Her mom is by bedside. The patient is very pleasant and at the moment offers complaint of very poor appetite. VITAL SIGNS: Today stable, temperature is 97.8, heart rate is 96, and blood pressure is 174/98. CHEST: Clear. HEART: Sounds are normal. EXTREMITIES: There was no pretibial edema. LABORATORY DATA: Labs this morning show glucose level 255, creatinine level is 5.0, BUN 34, chloride 105, CO2 of 21, sodium 135, and potassium is 3.3. ASSESSMENT AND PLAN: The patient had an arteriovenous fistula placed two days ago. At the moment, her insulin schedule continues to be 34 units of Lantus insulin at bedtime that was held yesterday due to glucose level of 79 and also NovoLog insulin with meals, which has been increased to 14 units 3 times a day that will be continued for now. Low-dose NovoLog insulin scale is being used for glucose level exceeding 300 range only. Again, this patient is difficult to manage regarding diabetes because of her unpredictable episodes of nausea and vomiting. As much as her glycemic is desired at this time due to also presence of cystitis and for the healing purpose of arteriovenous fistula, hypoglycemic episodes must be avoided as well. For now, we will continue the same insulin schedule and follow this patient closely with you. Rachel Ballard MD
[2018-05-09] MEDS: (Lantus) Insulin Glargine, Recombinant SC SCH (21:28)
--- NOTE | 2018-05-09 21:35 | PN ---
DATE: 05/09/2018 ENDOCRINOLOGY FOLLOWUP NOTE LOCATION: Room 672. SUBJECTIVE: This is a 27-year-old female with recent uncontrolled type 1 insulin-dependent diabetes with end-stage renal disease and is now being followed closely also for metabolic management because of extreme glycemic fluctuations as noted thereof. Her glucose values have ranged from 79 mg/dL to 205 mg/dL. Her bedtime glucose levels have ranged from 339 mg/dL to 342 mg/dL. LABORATORY DATA: Her chemistries today showed a BUN of 34, sodium 135, potassium 3.3 ,chloride 105, CO2 of 21, glucose 205, and creatinine 5. ASSESSMENT AND PLAN: So at this time, we will continue the same basal and bolus insulin regimen as given with Lantus modified to 34 units subcutaneous at bedtime daily as ordered. We will continue the NovoLog given as 14 units three times a day before meals as ordered. We will also continue the low-dose correction scale using NovoLog insulin as given. We will obtain serial chemistries and supplement accordingly as needed. We will follow. Greta Mcgill MD
[2018-05-10] MEDS: HYDROmorphone 0.5 mg/0.5 ml ISec IVP PRN ×4 (00:41→20:28)
--- NOTE | 2018-05-10 07:09 | CP.PCM.PN ---
Subjective - Date & Time of Evaluation Date of Evaluation: 05/10/18 Time of Evaluation: 07:35 - Subjective Subjective: Patient examined at bedside with mother in room. Pt reports continued left upper extremity pain at site of AVF creation. Pt reports pain is improving, and denies drainage from site. Pt reports she is able to move her arm and hand. Pt reports some difficulty tolerating diet, with 1 episode of post prandial emesis yesterday. Patient requests a discussion with PMD and nephro regarding dialysis via central line. She was apprehensive about getting central line placement as she thought it was a permanent catheter in her neck, unable to be removed once placed. Mom also reports she is eager to speak to clinical educator regarding appropriate food options so she can best support her daughter's health at home. Mom reports hospital food is high in sugar and came to show me upon breakfast arrival. Diet order was changed, as she was resumed on non-diabetic diet. Objective - Vital Signs/Intake and Output Vital Signs (last 24 hours): Temp Pulse Resp BP Pulse Ox 98.7 F 87 20 142/86 96 05/10/18 04:15 05/10/18 04:15 05/10/18 04:15 05/10/18 04:15 05/10/18 04:15 Intake and Output: 05/10/18 05/10/18 06:59 18:59 Intake Total 480 Balance 480 - Medications Medications: Current Medications Acetaminophen (Tylenol 325mg Tab) 650 mg PO Q6 PRN PRN Reason: pain or fever > 100.4F Last Admin: 05/08/18 03:43 Dose: 650 mg Amlodipine Besylate (Norvasc) 10 mg PO DAILY [facility] Last Admin: 05/09/18 09:06 Dose: 10 mg Calcitriol (Rocaltrol) 0.25 mcg PO MWF [facility] Last Admin: 05/07/18 08:50 Dose: 0.25 mcg Carvedilol (Coreg) 12.5 mg PO BID [facility] Last Admin: 05/09/18 17:32 Dose: 12.5 mg Clonidine HCl (Catapres-Tts2 0.2 Mg/24 Hr) 1 patch TD Q7D@1000 [facility] Last Admin: 05/04/18 09:54 Dose: 1 patch Dextrose (Dextrose 50% Inj) 0 ml IV STAT PRN; Protocol PRN Reason: Hypoglycemia Protocol Last Admin: 05/06/18 17:31 Dose: 50 ml Dextrose (Glutose 15) 0 gm PO ONCE PRN; Protocol PRN Reason: Hypoglycemia Protocol Last Admin: 04/30/18 04:57 Dose: 15 gm Ergocalciferol (Drisdol 50,000 Intl Units Cap) 1 cap PO Q7D [facility] Last Admin: 05/09/18 09:06 Dose: 1 cap Glucagon (Glucagen Diagnostic Kit) 0 mg IM STAT PRN; Protocol PRN Reason: Hypoglycemia Protocol Hydromorphone HCl (Dilaudid) 0.5 mg IVP Q6H PRN PRN Reason: Pain, severe (8-10) Last Admin: 05/10/18 00:41 Dose: 0.5 mg Dextrose (Dextrose 5% In Water 1000 Ml) 1,000 mls @ 0 mls/hr IV .Q0M PRN; Protocol PRN Reason: Hypoglycemia Protocol Potassium Chloride 40 meq/ (Sodium Chloride) 1,020 mls @ 60 mls/hr IV .Q17H [facility] Last Admin: 05/09/18 17:35 Dose: 60 mls/hr Insulin Aspart (Novolog) 0 unit SC ACHS [facility] Last Admin: 05/09/18 17:25 Dose: Not Given Insulin Aspart (Novolog) 14 unit SC AC [facility] Last Admin: 05/09/18 17:25 Dose: Not Given Insulin Glargine (Lantus) 30 unit SC HS [facility] Insulin Glargine (Lantus) 34 unit SC HS [facility] Last Admin: 05/09/18 21:28 Dose: 34 unit Labetalol HCl (Trandate) 20 mg IVP Q4H PRN PRN Reason: sbp>160 Last Admin: 05/07/18 17:16 Dose: 20 mg Metoclopramide HCl (Reglan) 10 mg IVP ACHS [facility] Last Admin: 05/09/18 21:28 Dose: 10 mg Ondansetron HCl (Zofran Inj) 4 mg IVP Q8H PRN PRN Reason: Nausea/Vomiting Last Admin: 05/09/18 02:19 Dose: 4 mg Oxycodone/Acetaminophen (Percocet 5/325 Mg Tab) 1 tab PO Q6H PRN PRN Reason: Pain, moderate (4-7) Stop: 05/11/18 10:01 Last Admin: 05/08/18 18:32 Dose: 1 tab Pantoprazole Sodium (Protonix Inj) 40 mg IVP DAILY [facility] Last Admin: 05/09/18 09:06 Dose: 40 mg Trazodone HCl (Desyrel) 50 mg PO BID [facility] Last Admin: 05/09/18 17:32 Dose: Not Given - Labs Labs: 05/08/18 11:54 05/08/18 11:54 PT 10.5 SECONDS (9.7-12.2) 05/07/18 13:02 INR 1.0 05/07/18 13:02 APTT 22 SECONDS (21-34) 05/07/18 13:02 - Additional Findings Additional findings: - Constitutional Appears: Non-toxic, No Acute Distress - Head Exam Head Exam: ATRAUMATIC, NORMAL INSPECTION, NORMOCEPHALIC - Eye Exam Eye Exam: EOMI, Normal appearance - ENT Exam ENT Exam: Mucous Membranes Moist, Normal Exam - Neck Exam Neck Exam: Normal Inspection - Respiratory Exam Respiratory Exam: Clear to Ausculation Bilateral, NORMAL BREATHING PATTERN - Cardiovascular Exam Cardiovascular Exam: Tachycardia, REGULAR RHYTHM. absent: Murmur - GI/Abdominal Exam GI & Abdominal Exam: Soft, Normal Bowel Sounds. absent: Distended - Extremities Exam Extremities Exam: Left upper extremity bandaged at AVF site. Dressing clean/dry/intact. No surrounding erythema. Extremity Edema. absent: Calf Tenderness - Neurological Exam Neurological Exam: Alert, Awake, Oriented x3 - Psychiatric Exam Psychiatric exam: Anxious - Skin Skin Exam: Dry, Intact, Warm Assessment and Plan - Assessment and Plan (Free Text) Assessment: Patient is a 27 year old female w/ PMH of DM2 with associated gastroparesis, HTN, GABRIELA on CKD, admitted to hospital for evaluation and treatment of acute gastroparetic episode. Patient found to have worsening GABRIELA, s/p AVF creation for anticipated dialysis Plan: TECH BRAZER TESTER called to due drop in blood sugar <20. Patient symptomatic, twitching and crying. Given juice and dextrose 50%. Blood sugar increased above 200. Pt put on D5 1/2NS @40/hr with q1 blood glucose checks. Gastroparesis Zofran 4mg IV q6h PRN Protonix 40mg IV daily reglan Midline placed(05/04/17) Hypokalemic: replete as needed ADAT based on patient habits, currently diabetic renal diet AVAsys has confirmed episodes of self-induced of vomiting GABRIELA on CKD, likely 2/2 to dehydration, pre-renal etiology Nephrology Consulted: Dr. Ezequiel Angela Surgery Consulted: Dr. Tineo AVF placement(05/07/18) Calcitriol 0.25mg po MWF Ergocalciferol q7d HTN Labetalol 20mg IVP q4h prn, 5mg IVP q4h Norvasc 10mg po daily Coreg 12.5mg po bid Clonidine patch TID Q7D IDDM ACHS ISS-dose per Dr. Mcgill's instructions Aspart 6U AC Glargine 16U SC HS Hypoglycemic protocol Educate patient on harmful effects of inducing vomiting on blood sugar Endocrinology, Dr. Mcgill consulted; Dr. Ballard covering while on vacation Suspected Munchausen Syndrome-suspected pseudo-seizures, self induced emesis, drug seeking behavior Psych Consulted: Linda; Borderline and depressive disorder-signed off Trazodone 50mg po bid Ppx VTE ppx: SCDs GI ppx: Protonix Midline placed for vascular access Dispo: pt to be discharged pending clearance from surgery and nephro; to follow up outpatient Discussed with Dr. Christine Pinzon, PGY-1
[2018-05-10] MEDS: (Novolog) Insulin Aspart, Recombinant 100 u/ml 10 ml vial SC SCH ×5 (08:22→21:47)
--- NOTE | 2018-05-10 09:35 | CP.PCM.PN ---
<Josafat Enriquez - Last Filed: 05/10/18 23:18> Subjective - Date & Time of Evaluation Date of Evaluation: 05/10/18 Time of Evaluation: 09:30 - Subjective Subjective: Josafat Enriquez PGY2 Nephrology Consult Note for Dr. Nieves Patient was seen and examined at bedside. Her mother is at bedside. She denies any nausea/vomiting since yesterday. She complains of pain at the AVF site, however, she appears comfortable. She is still making urine, and her abdominal pain has improved. There were no acute overnight events. Objective - Vital Signs/Intake and Output Vital Signs (last 24 hours): Temp Pulse Resp BP Pulse Ox 98.6 F 79 20 157/84 H 99 05/10/18 07:00 05/10/18 07:00 05/10/18 07:00 05/10/18 07:00 05/10/18 07:00 Intake and Output: 05/10/18 05/10/18 06:59 18:59 Intake Total 480 Balance 480 - Medications Medications: Current Medications Acetaminophen (Tylenol 325mg Tab) 650 mg PO Q6 PRN PRN Reason: pain or fever > 100.4F Last Admin: 05/08/18 03:43 Dose: 650 mg Amlodipine Besylate (Norvasc) 10 mg PO DAILY [facility] Last Admin: 05/09/18 09:06 Dose: 10 mg Calcitriol (Rocaltrol) 0.25 mcg PO MWF [facility] Last Admin: 05/07/18 08:50 Dose: 0.25 mcg Carvedilol (Coreg) 12.5 mg PO BID [facility] Last Admin: 05/09/18 17:32 Dose: 12.5 mg Clonidine HCl (Catapres-Tts2 0.2 Mg/24 Hr) 1 patch TD Q7D@1000 [facility] Last Admin: 05/04/18 09:54 Dose: 1 patch Dextrose (Dextrose 50% Inj) 0 ml IV STAT PRN; Protocol PRN Reason: Hypoglycemia Protocol Last Admin: 05/06/18 17:31 Dose: 50 ml Dextrose (Glutose 15) 0 gm PO ONCE PRN; Protocol PRN Reason: Hypoglycemia Protocol Last Admin: 04/30/18 04:57 Dose: 15 gm Ergocalciferol (Drisdol 50,000 Intl Units Cap) 1 cap PO Q7D [facility] Last Admin: 05/09/18 09:06 Dose: 1 cap Glucagon (Glucagen Diagnostic Kit) 0 mg IM STAT PRN; Protocol PRN Reason: Hypoglycemia Protocol Hydromorphone HCl (Dilaudid) 0.5 mg IVP Q6H PRN PRN Reason: Pain, severe (8-10) Last Admin: 05/10/18 08:35 Dose: 0.5 mg Dextrose (Dextrose 5% In Water 1000 Ml) 1,000 mls @ 0 mls/hr IV .Q0M PRN; Protocol PRN Reason: Hypoglycemia Protocol Potassium Chloride 40 meq/ (Sodium Chloride) 1,020 mls @ 60 mls/hr IV .Q17H [facility] Last Admin: 05/09/18 17:35 Dose: 60 mls/hr Insulin Aspart (Novolog) 0 unit SC [facility] Last Admin: 05/10/18 08:22 Dose: Not Given Insulin Aspart (Novolog) 14 unit SC AC [facility] Last Admin: 05/10/18 08:34 Dose: 14 units Insulin Glargine (Lantus) 30 unit SC HS [facility] Insulin Glargine (Lantus) 34 unit SC HS [facility] Last Admin: 05/09/18 21:28 Dose: 34 unit Labetalol HCl (Trandate) 20 mg IVP Q4H PRN PRN Reason: sbp>160 Last Admin: 05/07/18 17:16 Dose: 20 mg Metoclopramide HCl (Reglan) 10 mg IVP [facility] Last Admin: 05/10/18 08:34 Dose: 10 mg Ondansetron HCl (Zofran Inj) 4 mg IVP Q8H PRN PRN Reason: Nausea/Vomiting Last Admin: 05/09/18 02:19 Dose: 4 mg Oxycodone/Acetaminophen (Percocet 5/325 Mg Tab) 1 tab PO Q6H PRN PRN Reason: Pain, moderate (4-7) Stop: 05/11/18 10:01 Last Admin: 05/08/18 18:32 Dose: 1 tab Pantoprazole Sodium (Protonix Inj) 40 mg IVP DAILY [facility] Last Admin: 05/09/18 09:06 Dose: 40 mg Trazodone HCl (Desyrel) 50 mg PO BID [facility] Last Admin: 05/09/18 17:32 Dose: Not Given - Labs Labs: 05/08/18 11:54 05/08/18 11:54 PT 10.5 SECONDS (9.7-12.2) 05/07/18 13:02 INR 1.0 05/07/18 13:02 APTT 22 SECONDS (21-34) 05/07/18 13:02 - Constitutional Appears: Non-toxic, No Acute Distress, Unkempt - Head Exam Head Exam: NORMAL INSPECTION - Eye Exam Eye Exam: Normal appearance - ENT Exam ENT Exam: Mucous Membranes Dry - Neck Exam Neck Exam: Full ROM - Respiratory Exam Respiratory Exam: NORMAL BREATHING PATTERN - Cardiovascular Exam Cardiovascular Exam: RRR, +S1, +S2 - GI/Abdominal Exam GI & Abdominal Exam: Normal Bowel Sounds - Extremities Exam Extremities Exam: Normal Inspection Additional Comments: left AVF - Back Exam Back Exam: NORMAL INSPECTION - Neurological Exam Neurological Exam: Alert, Awake - Psychiatric Exam Psychiatric exam: Anxious - Skin Skin Exam: Dry, Warm, Hyperpigmentation (multiple hyperpigmented spots in area of mandible and neck b/l) Assessment and Plan - Assessment and Plan (Free Text) Assessment: Epigastric pain due to diabetic gastroparesis (chronic), improved - cont strict glycemic control; should not skip long acting basal insulin - Psych on board due to self-inducing of vomit - endocrinology consulted GABRIELA on CKD - no urgent indication for starting HD; will continue to monitor - POD3 for AVF creation in LUE - avoid NSAIDS/nephrotoxic agents - cont IVF for pre-renal azotemia (Cr trending down) Anemia of inflammation - will receive Epo prior to discharge - stable at this time, with no signs of overt bleeding or symptoms HTN - controlled w/ clonidine patch - labetalol IV PRN - cont PO meds Secondary hyperparathyroidism - cont ergocalciferol and calcitriol Case was reviewed and discussed with Dr. Nieves <Migue Nieves - Last Filed: 05/11/18 03:24> Objective - Vital Signs/Intake and Output Vital Signs (last 24 hours): Temp Pulse Resp BP Pulse Ox 97.9 F 80 18 142/83 98 05/10/18 15:16 05/11/18 02:38 05/11/18 02:38 05/11/18 02:38 05/10/18 15:16 Intake and Output: 05/10/18 05/11/18 18:59 06:59 Intake Total 650 Balance 650 - Medications Medications: Current Medications Acetaminophen (Tylenol 325mg Tab) 650 mg PO Q6 PRN PRN Reason: pain or fever > 100.4F Last Admin: 05/08/18 03:43 Dose: 650 mg Amlodipine Besylate (Norvasc) 10 mg PO DAILY [facility] Last Admin: 05/10/18 10:22 Dose: 10 mg Calcitriol (Rocaltrol) 0.25 mcg PO MWF [facility] Last Admin: 05/10/18 10:22 Dose: 0.25 mcg Carvedilol (Coreg) 12.5 mg PO BID [facility] Last Admin: 05/10/18 17:22 Dose: 12.5 mg Clonidine HCl (Catapres-Tts2 0.2 Mg/24 Hr) 1 patch TD Q7D@1000 [facility] Last Admin: 05/04/18 09:54 Dose: 1 patch Dextrose (Dextrose 50% Inj) 0 ml IV STAT PRN; Protocol PRN Reason: Hypoglycemia Protocol Last Admin: 05/10/18 11:30 Dose: 50 ml Dextrose (Glutose 15) 0 gm PO ONCE PRN; Protocol PRN Reason: Hypoglycemia Protocol Last Admin: 04/30/18 04:57 Dose: 15 gm Ergocalciferol (Drisdol 50,000 Intl Units Cap) 1 cap PO Q7D [facility] Last Admin: 05/09/18 09:06 Dose: 1 cap Glucagon (Glucagen Diagnostic Kit) 0 mg IM STAT PRN; Protocol PRN Reason: Hypoglycemia Protocol Hydromorphone HCl (Dilaudid) 0.3 mg IVP Q6H PRN PRN Reason: Pain, severe (8-10) Dextrose (Dextrose 5% In Water 1000 Ml) 1,000 mls @ 0 mls/hr IV .Q0M PRN; Protocol PRN Reason: Hypoglycemia Protocol Potassium Chloride 40 meq/ (Dextrose/Sodium Chloride) 1,020 mls @ 50 mls/hr IV .[id number] ONE Stop: 05/11/18 23:19 Insulin Aspart (Novolog) 0 unit SC ACHS [facility] Last Admin: 05/10/18 21:47 Dose: Not Given Insulin Aspart (Novolog) 4 unit SC AC [facility] Insulin Glargine (Lantus) 16 unit SC HS [facility] Last Admin: 05/10/18 21:48 Dose: Not Given Labetalol HCl (Trandate) 20 mg IVP Q4H PRN PRN Reason: sbp>160 Last Admin: 05/07/18 17:16 Dose: 20 mg Metoclopramide HCl (Reglan) 10 mg IVP ACHS [facility] Last Admin: 05/10/18 21:47 Dose: 10 mg Ondansetron HCl (Zofran Inj) 4 mg IVP Q8H PRN PRN Reason: Nausea/Vomiting Last Admin: 05/09/18 02:19 Dose: 4 mg Oxycodone/Acetaminophen (Percocet 5/325 Mg Tab) 1 tab PO Q6H PRN PRN Reason: Pain, moderate (4-7) Stop: 05/11/18 10:01 Last Admin: 05/08/18 18:32 Dose: 1 tab Pantoprazole Sodium (Protonix Ec Tab) 40 mg PO DAILY [facility] Sodium Bicarbonate (Sodium Bicarbonate Tab) 650 mg PO BID [facility] Last Admin: 05/10/18 17:21 Dose: 650 mg Trazodone HCl (Desyrel) 50 mg PO BID [facility] Last Admin: 05/10/18 17:22 Dose: 50 mg - Labs Labs: 05/08/18 11:54 05/10/18 11:02 PT 10.5 SECONDS (9.7-12.2) 05/07/18 13:02 INR 1.0 05/07/18 13:02 APTT 22 SECONDS (21-34) 05/07/18 13:02 Assessment and Plan (1) [id number] kidney injury Status: Acute (2) Hypertensive CKD (chronic kidney disease) Status: Acute (3) Anemia in CKD (chronic kidney disease) Status: Chronic (4) Chronic kidney disease-mineral and bone disorder Status: Chronic Attending/Attestation - Attestation I have personally seen and examined this patient.: Yes I have fully participated in the care of the patient.: Yes I have reviewed all pertinent clinical information, including history, physical exam and plan: Yes Notes (Text): Patient seen and examined; I agree with the resident's note as above with the following additions/edits: Patient reporting nausea/vomiting improved; again with hypoglycemia today; AVF surgical site pain improved with meds; GABRIELA on CKD IV/V; renal function improving slowly as gastroparesis flare resolves; stable volume and electrolyte status; b/l UE edema noted; no significant leg edema and clear lungs; will continue on gentle IVF for m aintenance (D5NS at 50 cc/hr); no urgency for initiating HD at this time but will monitor closely as outpatient; Anemia of CKD with hgb stable; will give dose of EPO 20,000 u before d/c; Hypertensive CKD; BP much better controlled; continue current meds; CKD mineral bone disorder; continue calcitriol; no need for phos binders for now;
[2018-05-10] MEDS ORDERED: Dextrose 50% SYRINGE Inj (50 ml) ONE (11:17)
[2018-05-10] MEDS: Dextrose 50% SYRINGE Inj (50 ml) IV PRN (11:30)
[2018-05-10] MEDS ORDERED: Dextrose 5%/0.45% NS 1,000 ML IV SCH (11:30)
[2018-05-10 11:57] LABS: ALBUMIN 2.5 g/dL (3.5-5.0)
[2018-05-10] MEDS ORDERED: Potassium Ch 20mEq in D5-1/2NS 1,000 ML IV SCH (14:45)
--- NOTE | 2018-05-10 14:48 | PCM.RRT ---
<Mary Grace Toro - Last Filed: 05/10/18 14:45> NUT ORCHARDIST Nurses Assessment - Situation Date: 05/10/18 Time NUT ORCHARDIST was called: 11:12 NUT ORCHARDIST Responder Arrival Time:: 11:12 NUT ORCHARDIST Location:: Med/Surg Room Number: 672 NUT ORCHARDIST Called By: RN - IV IV Inserted during NUT ORCHARDIST?: No - Respiratory NUT ORCHARDIST Delivery Method: Room Air Received Nebulizer Treatments: No Was the Patient Ventilated with Bag/Mask 100% O2?: No Secretions Suctioned?: No Was the Patient Intubated?: No Was the Patient Placed on a Ventilator?: No - Medication Medications Administered During NUT ORCHARDIST: 2150= 1 amp.D50% [id number] IV AT 80ML/HR. - Diagnostic Test Ordered EKG: No Chest X-Ray: No CT Scan: No CPR started during NUT ORCHARDIST?: No - Vital Signs Vital Signs: Rapid Response Vital Sign Blood Pressure 159/107 Pulse Rate 75 Respiratory Rate 18 Temperature 98 F Oxygen Saturation 93 - [place] Coma Scale Coma Scale Eye Opening: Spontaneous Coma Scale Motor: Obeys Commands Movement Coma Scale Verbal: Oriented Coma Scale Total: 15 - Recommendations Notifications: Attending Physician, Consultations, Family or Designated Caregiver I.Reason for NUT ORCHARDIST - A) Acute Change in Patient: Subjective: NUT ORCHARDIST called when POC glucose found to be <20. - Neurological Status (Select all that apply): Alert, Responsive, Verbal, Follows Commands - Respiratory Oxygen Delivery Method: Room Air - Constitutional Appears: Non-toxic, In Acute Distress - Head Head Exam: ATRAUMATIC, NORMAL INSPECTION, NORMOCEPHALIC - Eyes Eye Exam: EOMI, Normal appearance - Respiratory Exam Respiratory Exam: Clear to Ausculation Bilateral, NORMAL BREATHING PATTERN - Cardiovascular Exam Cardiovascular Exam: REGULAR RHYTHM, RRR, +S1, +S2 - Neurological Exam Neurological Exam: Alert, Awake, Oriented x3 - Extremities Exam Extremities Exam: Normal Inspection Plan - Assessment of Findings&Treatment Plan NUT ORCHARDIST called when POC glucose found to be <20. Patient was alert, awake, oriented and anxious. Patient was given 50ml of D50 IVP and then started on D5 1/2 NS at 40 cc/hr for four hours. Patient's glucose increased to 261. POC glucose to be done q1h. <Get Coker - Last Filed: 05/10/18 19:09> NUT ORCHARDIST Nurses Assessment - Vital Signs Vital Signs: Rapid Response Vital Sign Blood Pressure 159/107 Pulse Rate 75 Respiratory Rate 18 Temperature 98 F Oxygen Saturation 93 - Vital Signs at end of NUT ORCHARDIST Vital Signs at end of NUT ORCHARDIST: Rapid Response End Vital Sign Blood Pressure 155/92 Pulse Rate 85 Respiratory Rate 24 Temperature 98.2 F O2 Sat by Pulse Oximetry 99 Attending/Attestation - Attestation I have personally seen and examined this patient.: Yes I have fully participated in the care of the patient.: Yes I have reviewed all pertinent clinical information, including history, physical exam and plan: Yes
[2018-05-10] MEDS ORDERED: (Novolog) Insulin Aspart, Recombinant 100 u/ml 10 ml vial SC SCH (16:30)
[2018-05-10] MEDS ORDERED: (Lantus) Insulin Glargine, Recombinant SC SCH (22:00)
--- NOTE | 2018-05-11 00:03 | PN ---
DATE: 05/10/2018 ENDOCRINOLOGY FOLLOWUP NOTE LOCATION: Room 672. SUBJECTIVE: This is a 27-year-old female with recent uncontrolled type 1 insulin-dependent diabetes, presenting here with progressive azotemia and end-stage renal disease and is now being followed closely for metabolic management. Her glycemic levels are fluctuating with extremes of glycemic fluctuations from glucose levels below 20 to over 261 mg/dL. Her oral intake remains extremely variable as per the nursing staff. LABORATORY DATA: Her chemistry shows a BUN of 26, sodium 131, potassium 4, chloride 107, CO2 18, glucose 130, and creatinine 4.6. ASSESSMENT AND PLAN: So at this time, we will modify once again her basal and bolus insulin regimen because of the variability of her oral intake to NovoLog lower to 6 units subcutaneous three times a day before meals prescribed today as ordered. We will also modify her basal insulin with Lantus to be lowered to 16 units subcutaneous at bedtime daily prescribed tonight. We will titrate incrementally as indicated to optimize metabolic control. We will obtain serial chemistries and supplement accordingly as needed. We will follow. Greta Mcgill MD
[2018-05-11] MEDS: HYDROmorphone 0.5 mg/0.5 ml ISec IVP PRN (02:38)
[2018-05-11] MEDS ORDERED: Potassium Chloride 40 MEQ in Dextrose 5%/0.9% NS 1,000 ML IV ONE (02:56)
[2018-05-11] MEDS ORDERED: HYDROmorphone 0.5 mg/0.5 ml ISec IVP PRN (03:18)
[2018-05-11] MEDS: (Novolog) Insulin Aspart, Recombinant 100 u/ml 10 ml vial SC SCH ×6 (08:10→17:20)
[2018-05-11 08:46] VITALS: RESP 20
[2018-05-11] MEDS ORDERED: Epoetin Alfa 20000 UNIT/ML Inj SC ONE ×2 (09:00→16:21)
[2018-05-11] MEDS ORDERED: Pantoprazole 40 mg EC Tab PO SCH (10:00)
--- NOTE | 2018-05-11 14:02 | CP.PCM.PN ---
Subjective - Date & Time of Evaluation Date of Evaluation: 05/11/18 Time of Evaluation: 14:10 - Subjective Subjective: Nephrology progress note for Dr. Nieves's service Patient states she's feeling much better. Able to tolerate some diet now. States she's ready to be discharged. Denies cp, sob, nausea improved and vomiting resolved. Objective - Vital Signs/Intake and Output Vital Signs (last 24 hours): Temp Pulse Resp BP Pulse Ox 98.3 F 82 20 152/91 H 99 05/11/18 07:00 05/11/18 07:00 05/11/18 07:00 05/11/18 10:54 05/11/18 07:00 Intake and Output: 05/11/18 05/11/18 06:59 18:59 Intake Total 650 520 Output Total 500 Balance 650 20 - Medications Medications: Current Medications Acetaminophen (Tylenol 325mg Tab) 650 mg PO Q6 PRN PRN Reason: pain or fever > 100.4F Last Admin: 05/08/18 03:43 Dose: 650 mg Amlodipine Besylate (Norvasc) 10 mg PO DAILY [facility] Last Admin: 05/11/18 11:00 Dose: 10 mg Calcitriol (Rocaltrol) 0.25 mcg PO MWF [facility] Last Admin: 05/10/18 10:22 Dose: 0.25 mcg Carvedilol (Coreg) 12.5 mg PO BID [facility] Last Admin: 05/11/18 10:54 Dose: 12.5 mg Clonidine HCl (Catapres-Tts2 0.2 Mg/24 Hr) 1 patch TD Q7D@1000 [facility] Last Admin: 05/11/18 10:55 Dose: 0.2 patch Dextrose (Dextrose 50% Inj) 0 ml IV STAT PRN; Protocol PRN Reason: Hypoglycemia Protocol Last Admin: 05/10/18 11:30 Dose: 50 ml Dextrose (Glutose 15) 0 gm PO ONCE PRN; Protocol PRN Reason: Hypoglycemia Protocol Last Admin: 04/30/18 04:57 Dose: 15 gm Ergocalciferol (Drisdol 50,000 Intl Units Cap) 1 cap PO Q7D [facility] Last Admin: 05/09/18 09:06 Dose: 1 cap Glucagon (Glucagen Diagnostic Kit) 0 mg IM STAT PRN; Protocol PRN Reason: Hypoglycemia Protocol Hydromorphone HCl (Dilaudid) 0.3 mg IVP Q6H PRN PRN Reason: Pain, severe (8-10) Last Admin: 05/11/18 10:51 Dose: 0.3 mg Dextrose (Dextrose 5% In Water 1000 Ml) 1,000 mls @ 0 mls/hr IV .Q0M PRN; Protocol PRN Reason: Hypoglycemia Protocol Potassium Chloride 40 meq/ (Dextrose/Sodium Chloride) 1,020 mls @ 50 mls/hr IV .[id number] ONE Stop: 05/11/18 23:19 Last Admin: 05/11/18 05:34 Dose: 50 mls/hr Insulin Aspart (Novolog) 0 unit SC ACHS [facility] Last Admin: 05/11/18 12:30 Dose: 3 unit Insulin Aspart (Novolog) 4 unit SC AC [facility] Last Admin: 05/11/18 12:30 Dose: 4 u Insulin Glargine (Lantus) 16 unit SC HS [facility] Last Admin: 05/10/18 21:48 Dose: Not Given Labetalol HCl (Trandate) 20 mg IVP Q4H PRN PRN Reason: sbp>160 Last Admin: 05/07/18 17:16 Dose: 20 mg Metoclopramide HCl (Reglan) 10 mg IVP ACHS [facility] Last Admin: 05/11/18 08:52 Dose: 10 mg Ondansetron HCl (Zofran Inj) 4 mg IVP Q8H PRN PRN Reason: Nausea/Vomiting Last Admin: 05/09/18 02:19 Dose: 4 mg Pantoprazole Sodium (Protonix Ec Tab) 40 mg PO DAILY [facility] Last Admin: 05/11/18 10:57 Dose: 40 mg Sodium Bicarbonate (Sodium Bicarbonate Tab) 650 mg PO BID [facility] Last Admin: 05/11/18 10:54 Dose: 650 mg Trazodone HCl (Desyrel) 50 mg PO BID [facility] Last Admin: 05/11/18 11:00 Dose: 50 mg - Labs Labs: 05/08/18 11:54 05/10/18 11:02 PT 10.5 SECONDS (9.7-12.2) 05/07/18 13:02 INR 1.0 05/07/18 13:02 APTT 22 SECONDS (21-34) 05/07/18 13:02 - Constitutional Appears: No Acute Distress, Older Than Stated Age, Chronically Ill - Head Exam Head Exam: ATRAUMATIC, NORMAL INSPECTION, NORMOCEPHALIC - Eye Exam Eye Exam: Normal appearance - ENT Exam ENT Exam: Mucous Membranes Moist - Neck Exam Neck Exam: Normal Inspection - Respiratory Exam Respiratory Exam: Clear to Ausculation Bilateral, NORMAL BREATHING PATTERN. absent: Rales, Rhonchi, Wheezes, Respiratory Distress, Stridor - Cardiovascular Exam Cardiovascular Exam: REGULAR RHYTHM, +S1, +S2. absent: Murmur - GI/Abdominal Exam GI & Abdominal Exam: Soft, Normal Bowel Sounds. absent: Distended, Firm, Guarding, Rigid, Tenderness - Extremities Exam Extremities Exam: Normal Inspection. absent: Pedal Edema, Tenderness - Back Exam Back Exam: NORMAL INSPECTION - Neurological Exam Neurological Exam: Alert, Awake, Oriented x3 - Psychiatric Exam Psychiatric exam: Depressed - Skin Skin Exam: Dry, Warm Additional comments: Left AVF in place Assessment and Plan (1) Diabetic gastroparesis Assessment & Plan: On zofran prn and reglan Status: Chronic (2) Mwael-gr-wiyiofx kidney injury Assessment & Plan: - S/P AVF creation day#4 - Patient doesn't need urgent dialysis at this time -Patient with metabolic acidosis- Continue with sodium bicarb - Avoid NSAIDS/nephrotoxic agents - Patient to get epo prior to discharge - Patient to follow up with Dr. Nieves in 1 week as outpatient Status: Acute (3) Uncontrolled diabetes mellitus Assessment & Plan: Continue with eyewear consultant recommendations Status: Acute (4) Chronic kidney disease-mineral and bone disorder Assessment & Plan: Continue with calcitriol 0.2 mcg MWF, and drisdol 1 cap q7 Status: Chronic (5) Nephrotic syndrome Status: Chronic (6) Hypertensive CKD (chronic kidney disease) Assessment & Plan: Continue with Norvasc, coreg, and clonidine patch Q7 Status: Acute
--- NOTE | 2018-05-11 14:28 | CP.PCM.DIS ---
Provider - Provider Date of Admission: 04/28/18 03:31 Attending physician: Reza King Jr, MD Consults: 04/28/18 05:40 Nephrology Consult Routine Comment: Consulting Provider: Migue Nieves Consulting Physician: Migue Nieves Reason for Consult: worsening GABRIELA 04/29/18 10:11 Critical Care Consult Routine Comment: Consulting Provider: Yayo Morrell Consulting Physician: Yayo Morrell Reason for Consult: pt with HTN, renal failure, please eval Physician Consult Routine Comment: Consulting Provider: Tawanda Hines Jr. Consulting Physician: Tawanda Hines Jr. Reason for Consult: pt with renal failure requiring AVF eval 05/02/18 15:45 Psychiatry Consult Routine Comment: Consulting Provider: Jomar Mckeon Consulting Physician: Jomar Mckeon Reason for Consult: [place] Syndrome 05/08/18 07:00 Endocrinology Consult Routine Comment: Dr. Ballard covering for DR Mcgill Consulting Provider: Rachel Ballard Consulting Physician: Rachel Ballard Reason for Consult: uncontrolled blood sugars; patient very noncomplaint Time Spent in preparation of Discharge (in minutes): 35 Hospital Course - Lab Results Lab Results: Most Recent Lab Values WBC 9.0 K/uL (4.8-10.8) 05/08/18 11:54 RBC 3.18 Mil/uL (3.80-5.20) L 05/08/18 11:54 Hgb 9.1 g/dL (11.0-16.0) L 05/08/18 11:54 Hct 27.6 % (34.0-47.0) L 05/08/18 11:54 MCV 86.8 fL (81.0-99.0) 05/08/18 11:54 MCH 28.6 pg (27.0-31.0) 05/08/18 11:54 MCHC 32.9 g/dL (33.0-37.0) L 05/08/18 11:54 RDW 14.2 % (11.5-14.5) 05/08/18 11:54 Plt Count 255 K/uL (130-400) 05/08/18 11:54 MPV 10.5 fL (7.2-11.7) 05/08/18 11:54 Neut % (Auto) 71.8 % (50.0-75.0) 05/08/18 11:54 Lymph % (Auto) 19.1 % (20.0-40.0) L 05/08/18 11:54 [place] % (Auto) 8.0 % (0.0-10.0) 05/08/18 11:54 Eos % (Auto) 0.3 % (0.0-4.0) 05/08/18 11:54 Baso % (Auto) 0.8 % (0.0-2.0) 05/08/18 11:54 Neut # (Auto) 6.5 K/uL (1.8-7.0) 05/08/18 11:54 Lymph # (Auto) 1.7 K/uL (1.0-4.3) 05/08/18 11:54 [place] # (Auto) 0.7 K/uL (0.0-0.8) 05/08/18 11:54 Eos # (Auto) 0.0 K/uL (0.0-0.7) 05/08/18 11:54 Baso # (Auto) 0.1 K/uL (0.0-0.2) 05/08/18 11:54 Neutrophils % (Manual) 89 % (50-75) H 05/06/18 08:56 Band Neutrophils % 1 % (0-2) 04/29/18 10:56 Lymphocytes % (Manual) 9 % (20-40) L 05/06/18 08:56 Monocytes % (Manual) 2 % (0-10) 05/06/18 08:56 Platelet Estimate Normal (NORMAL) 05/06/18 08:56 Large Platelets Present 05/04/18 13:52 Polychromasia Slight 05/04/18 13:52 Hypochromasia (manual) Slight 05/06/18 08:56 Poikilocytosis (manual Slight 05/06/18 08:56 Anisocytosis (manual) Slight 05/06/18 08:56 Microcytosis (manual) Slight 05/04/18 13:52 Target Cells Slight 05/04/18 13:52 Ovalocytes Slight 05/05/18 09:23 [place]ton Cells Slight 05/04/18 13:52 Acanthocytes (Spur) Slight 05/06/18 08:56 PT 10.5 SECONDS (9.7-12.2) 05/07/18 13:02 INR 1.0 05/07/18 13:02 APTT 22 SECONDS (21-34) 05/07/18 13:02 Puncture Site Rra 05/08/18 11:34 pCO2 31 mm/Hg (35-45) L 05/08/18 11:34 pO2 65 mm/Hg (80-100) L 05/08/18 11:34 HCO3 23.2 mmol/L (21-28) 05/08/18 11:34 ABG pH 7.44 (7.35-7.45) 05/08/18 11:34 ABG Total CO2 22.1 mmol/L (22-28) 05/08/18 11:34 ABG O2 Saturation 97.5 % (95-98) 05/08/18 11:34 ABG Base Excess -2.1 mmol/L (-2.0-3.0) L 05/08/18 11:34 ABG Hemoglobin 8.7 g/dL (11.7-17.4) L 05/04/18 18:20 ABG Carboxyhemoglobin 1.3 % (0.5-1.5) 05/04/18 18:20 POC ABG HHb (Measured) 4.3 % (0.0-5.0) 05/04/18 18:20 ABG Methemoglobin 1.3 % (0.0-3.0) 05/04/18 18:20 Glenn Test Pos 05/08/18 11:34 ABG Potassium 3.0 mmol/L (3.6-5.2) L 05/08/18 11:34 VBG pH 7.32 (7.32-7.43) 04/28/18 02:28 VBG pCO2 41 mmHg (40-60) 04/28/18 02:28 VBG HCO3 20.6 mmol/L 04/28/18 02:28 VBG Total CO2 22.4 mmol/L (22-28) 04/28/18 02:28 VBG O2 Sat (Calc) 82.1 % (40-65) H 04/28/18 02:28 VBG Base Excess -4.8 mmol/L (0.0-2.0) L 04/28/18 02:28 VBG Potassium 4.0 mmol/L (3.6-5.2) 04/28/18 02:28 A-a O2 Difference 46.0 mm/Hg 05/08/18 11:34 Respiratory Index 0.7 05/08/18 11:34 Hgb O2 Saturation 93.1 % (95.0-98.0) L 05/04/18 18:20 Sodium 139.0 mmol/l (132-148) 05/08/18 11:34 Chloride 110.0 mmol/L (98-107) H 05/08/18 11:34 Glucose 199 mg/dl (65-105) H 05/08/18 11:34 Lactate 2.8 mmol/L (0.7-2.1) H 05/08/18 11:34 Liter Flow 3.0 05/04/18 18:20 FiO2 21.0 % 05/08/18 11:34 Sodium 131 mmol/L (132-148) L 05/10/18 11:02 Potassium 4.0 mmol/L (3.6-5.2) 05/10/18 11:02 Chloride 107 mmol/L (98-107) 05/10/18 11:02 Carbon Dioxide 18 mmol/L (22-30) L 05/10/18 11:02 Anion Gap 9 (10-20) L 05/10/18 11:02 BUN 26 mg/dL (7-17) H 05/10/18 11:02 Creatinine 4.6 mg/dL (0.7-1.2) H 05/10/18 11:02 Est GFR ( Amer) 14 05/10/18 11:02 Est GFR (Non-Af Amer) 11 05/10/18 11:02 POC Glucose (mg/dL) 130 mg/dL (65-110) H 05/11/18 05:54 Random Glucose 30 mg/dL (65-105) L* D 05/10/18 11:02 Hemoglobin A1c 7.3 % (4.2-6.5) H 05/06/18 08:56 Calcium 8.0 mg/dl (8.6-10.4) L 05/10/18 11:02 Phosphorus 3.2 mg/dL (2.5-4.5) 05/10/18 11:02 Magnesium 1.8 mg/dL (1.6-2.3) 05/10/18 11:02 Iron 62 ug/dL (37-170) 04/29/18 10:56 TIBC 249 ug/dL (250-450) L 04/29/18 10:56 % Saturation 25 (20-55) 04/29/18 10:56 Ferritin 72.3 ng/mL 04/29/18 10:56 Total Bilirubin 0.3 mg/dL (0.2-1.3) 05/10/18 11:02 AST 18 U/L (14-36) 05/10/18 11:02 ALT 16 U/L (9-52) 05/10/18 11:02 Alkaline Phosphatase 69 U/L (38-126) 05/10/18 11:02 Troponin I 0.0280 ng/mL (0.00-0.120) 04/29/18 10:56 Total Protein 5.1 g/dL (6.3-8.3) L 05/10/18 11:02 Albumin 2.5 g/dL (3.5-5.0) L 05/10/18 11:02 Globulin 2.5 gm/dL (2.2-3.9) 05/10/18 11:02 Albumin/Globulin Ratio 1.0 (1.0-2.1) 05/10/18 11:02 Triglycerides 103 mg/dL (0-149) 05/06/18 08:56 Cholesterol 182 mg/dL (0-199) 05/06/18 08:56 LDL Cholesterol Direct 87 mg/dL (0-129) 05/06/18 08:56 HDL Cholesterol 72 mg/dL (30-70) H 05/06/18 08:56 Lipase 29 U/L (23-300) 04/28/18 01:57 25-OH Vitamin D Total 13.1 NG/ML (30.0-100.0) L 04/29/18 10:56 TSH 3rd Generation 0.84 mIU/L (0.46-4.68) 05/06/18 08:56 Beta HCG, Quant < 2.39 mIU/ML 05/07/18 13:02 PTH Intact Whole Molec 215 pg/mL (14-64) H 05/06/18 08:56 Calcium (PTH Intact) 9.0 mg/dL (8.6-10.2) 04/29/18 10:56 PTH w/Ion &Tot Calcium 368 pg/mL (14-64) H 04/29/18 10:56 Arterial Blood Potassium 3.0 mmol/L (3.6-5.2) L 05/08/18 11:34 Venous Blood Potassium 4.0 mmol/L (3.6-5.2) 04/28/18 02:28 Urine Color Straw (YELLOW) 05/05/18 05:31 Urine Clarity Clear (Clear) 05/05/18 05:31 Urine pH 5.0 (5.0-8.0) 05/05/18 05:31 Ur Specific [place] 1.014 (1.003-1.030) 05/05/18 05:31 Urine Protein 3+ mg/dL (NEGATIVE) H 05/05/18 05:31 Urine Glucose (UA) 3+ mg/dL (Normal) H 05/05/18 05:31 Urine Ketones Trace mg/dL (NEGATIVE) 05/05/18 05:31 Urine Blood 1+ (NEGATIVE) H 05/05/18 05:31 Urine Nitrate Negative (NEGATIVE) 05/05/18 05:31 Urine Bilirubin Negative (NEGATIVE) 05/05/18 05:31 Urine Urobilinogen Normal mg/dL (0.2-1.0) 05/05/18 05:31 Ur Leukocyte Esterase Neg Kathy/uL (Negative) 05/05/18 05:31 Urine WBC (Auto) 1 /hpf (0-5) 05/05/18 05:31 Urine RBC (Auto) 1 /hpf (0-3) 05/05/18 05:31 Ur Squamous Epith Cells < 1 /hpf (0-5) 05/05/18 05:31 Urine Bacteria Rare (<OCC) 05/05/18 05:31 Hyaline Casts 3-5 /lpf (0-2) H 04/28/18 09:13 Urine HCG, Qual Negative (NEGATIVE) 05/07/18 12:34 Urine Opiates Screen Negative (NEGATIVE) 04/28/18 09:13 Urine Methadone Screen Negative (NEGATIVE) 04/28/18 09:13 Ur Barbiturates Screen Negative (NEGATIVE) 04/28/18 09:13 Ur Phencyclidine Scrn Negative (NEGATIVE) 04/28/18 09:13 Ur Amphetamines Screen Negative (NEGATIVE) 04/28/18 09:13 U Benzodiazepines Scrn Negative (NEGATIVE) 04/28/18 09:13 U Oth Cocaine Metabols Negative (NEGATIVE) 04/28/18 09:13 U Cannabinoids Screen Negative (NEGATIVE) 04/28/18 09:13 B-Hydroxybutyrate 1.74 mM (0.02-0.27) H 05/04/18 18:38 - Hospital Course Hospital Course: Upon Admission Patient is a 27 year old female who presents to the ED with complaints of abdominal pain and multiple episodes of non-bilious, non-bloody emesis that began this morning. Patient reports crampy abdominal pain isolated to the epigastrium, associated with acidic pains up to the back of the throat. Patient reports she was unable to tolerate anything PO today, and thus was unable to keep any home medication down for intended symptomatic relief. Patient reports she has not taken medications as prescribed/recommended. She reports her sugars have been very low, 40s-80s; pt reports using an insulin pump and entering her carbs inappropriately. Pt reports she has been taking more xanax then prescribed, nearly double the amount. Denies chest pain, SOB, diarrhea. Hospital Course Patient admitted for multiple episodes of nasuea and vomiting. During stay, it was found that patient was inducing vomiting due to her sticking her finger down her throat. Patient was treated for elevated blood sugars but it was complicated due to patient malingering her symptoms. Patient would be NPO because she induces vomiting of her food. Patient's blood pressure was very high due to her being severely dehydrated. Patient wanted ativan or dilaudid and was given to her so she would stop induction of vomiting. Patient was taken off ativan as patient continued her malingering habits. Eventually patient became compliant with medical team after Dr. King expressed the dire situation she was putting herself in. brake linings coater were called for episodes of hypoglycemia, multifactorial etiology as patient does not eat, has gastroparesis when she does, and her sugars difficult to control in this setting. Endocrinology, Vasc surgery, Nephrology were consulted for sugar control, AVF placement, and elevated Cr respectively. Patient was discharged after better control of sugars and patient stopped inducing vomiting. 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 Discharge Plan 1. Patient is stable for discharge to home as per Dr. King, Dr. Nieves, Dr. Hines. 2. Patient will need to setup follow up appointments with all three above listed doctors within a week of discharge from hospital. Patient must see Noman continued AVF care, nerology for dialysis initation, and Dr. King for all other chronic issues. Patient is educated to setup appointment with outpatient forging machine operator she sees for possible insulin pump. 3. Patient will continue taking the medications that she was taking in hospital as reconciled. 4. Patient should return to hospital if symptoms worsen or recur. 5. Patient understands the plan as above and agrees. Discharge Exam - Head Exam Head Exam: ATRAUMATIC, NORMAL INSPECTION, NORMOCEPHALIC - Eye Exam Eye Exam: EOMI, Normal appearance. absent: Nystagmus, Scleral icterus - ENT Exam ENT Exam: Mucous Membranes Dry - Respiratory Exam Respiratory Exam: Clear to PA & Lateral, NORMAL BREATHING PATTERN. absent: Decreased Breath Sounds, Rales, Wheezes, Respiratory Distress - Cardiovascular Exam Cardiovascular Exam: REGULAR RHYTHM, +S1, +S2. absent: Tachycardia - GI/Abdominal Exam GI & Abdominal Exam: Normal Bowel Sounds, Soft. absent: Diminished Bowel Sounds, Distended, Firm, Guarding, Tenderness - Extremities Exam Extremities exam: normal inspection - Neurological Exam Neurological exam: Alert, Normal Gait, Oriented x3 - Psychiatric Exam Psychiatric exam: Normal Affect, Normal Mood Additional comments: depressed at times visibly crying and very emotional - Skin Skin Exam: Intact, Normal Color Discharge Plan - Discharge Medications Prescriptions: amLODIPine [Norvasc] 10 mg PO DAILY #14 tab Calcitriol [Rocaltrol] 0.25 mcg PO MWF #6 sgl Carvedilol [Coreg] 12.5 mg PO BID #14 tab cloNIDine 0.2 mg/24 hr [catapres-TTS2 0.2 mg/24 hr] 1 patch TD Q7D@1000 #2 patch Ergocalciferol [Drisdol 50,000 Intl Units Cap] 1 cap PO Q7D #2 cap Insulin Aspart, Recombinant [Novolog] 4 unit SC AC #100 unit Insulin Glargine, Recombina [Lantus] 16 unit SC HS #40 unit Metoclopramide HCl [Reglan] 10 mg PO AC #52 tablet Sodium Bicarbonate Tab 650 mg PO BID #28 tab Syringe with Needle, 1 ml [Easy Touch] 1 each MC AC #60 disp.syrin traZODone [Desyrel] 50 mg PO BID #28 tab - Follow Up Plan Condition: FAIR Disposition: HOME/ ROUTINE Additional Instructions: 1. Patient is stable for discharge to home as per Dr. King, Dr. Nieves, Dr. Hines. 2. Patient will need to setup follow up appointments with all three above listed doctors within a week of discharge from hospital. Patient must see Noman continued AVF care, nerology for dialysis initation, and Dr. King for all other chronic issues. Patient is educated to setup appointment with outpatient forging machine operator she sees for possible insulin pump. 3. Patient will continue taking the medications that she was taking in hospital as reconciled. 4. Patient should return to hospital if symptoms worsen or recur. 5. Patient understands the plan as above and agrees. Referrals: Reza King Jr., MD [Medical Doctor] - Tawanda Hines Jr., MD [Staff Provider] - Migue Nieves MD [Staff Provider] -
[2018-05-11 17:20] VITALS: BP 139/91
[2018-05-11 18:38] VITALS: PULSE 80; TEMP 98.1; O2SAT 100
--- NOTE | 2018-05-11 21:46 | PN ---
DATE: 05/11/2018 ENDOCRINOLOGY FOLLOWUP NOTE LOCATION: Room 672. This is a 27-year-old female with recent uncontrolled type 1 insulin-dependent diabetes, now being followed closely for metabolic management. Her glycemic levels are fluctuating, but improved. The glucose values have ranged from 114 to mg/dL. Her chemistry showed a BUN of 26, sodium 131, potassium 4, chloride 107, CO2 of 18, glucose 130, and creatinine 4.6. So at this time, we will modify her current basal and bolus insulin regimens as ordered. We will continue NovoLog given as 6 units t.i.d. before meals and Lantus given as 16 units subcu at bedtime daily as given. We will obtain serial chemistries and supplement accordingly as needed. We will follow. Greta Mcgill MD
== END 2018-05-11 18:30 | disposition home or self-care (01) | DRG 315 ==
LOC: C.ER 01:44 → C.9E 03:31 → C.6T 17:20
PROVIDERS: ADMIT Internal Medicine; ATTEND Internal Medicine
PROC: 03180ZD Bypass Left Brachial Artery to Upper Arm Vein, Open Approach (ICD-10-PCS; principal; 2018-05-07 11:30)
DX: N17.9 Acute kidney failure, unspecified (principal); E10.43 Type 1 diabetes mellitus with diabetic autonomic (poly)neuropathy; K31.84 Gastroparesis; E86.0 Dehydration; E10.21 Type 1 diabetes mellitus with diabetic nephropathy; E87.6 Hypokalemia; E87.1 Hypo-osmolality and hyponatremia; I12.0 Hypertensive chronic kidney disease with stage 5 chronic kidney disease or end stage renal disease; R56.9 Unspecified convulsions; E10.319 Type 1 diabetes mellitus with unspecified diabetic retinopathy without macular edema; E10.22 Type 1 diabetes mellitus with diabetic chronic kidney disease; E10.51 Type 1 diabetes mellitus with diabetic peripheral angiopathy without gangrene; E10.649 Type 1 diabetes mellitus with hypoglycemia without coma; N04.9 Nephrotic syndrome with unspecified morphologic changes; N18.6 End stage renal disease; E10.65 Type 1 diabetes mellitus with hyperglycemia; D63.1 Anemia in chronic kidney disease; Z96.41 Presence of insulin pump (external) (internal); D64.89 Other specified anemias; E10.10 Type 1 diabetes mellitus with ketoacidosis without coma; F32.9 Major depressive disorder, single episode, unspecified; F44.5 Conversion disorder with seizures or convulsions; F60.3 Borderline personality disorder; N25.81 Secondary hyperparathyroidism of renal origin; F41.9 Anxiety disorder, unspecified; M89.9 Disorder of bone, unspecified; Z76.5 Malingerer [conscious simulation]; Z53.20 Procedure and treatment not carried out because of patient's decision for unspecified reasons; Z79.899 Other long term (current) drug therapy; Z90.49 Acquired absence of other specified parts of digestive tract; Z91.14 Patient's other noncompliance with medication regimen

== ENCOUNTER 2018-05-13 14:56 | Emergency (ER) | payer MEDICAID ==
[2018-05-13 15:11] VITALS: BMI 29.2
[2018-05-13 15:43] LABS: BASO # 0.1 K/uL (0.0-0.2); BASO % 1.4 % (0.0-2.0); EOS # 0.1 K/uL (0.0-0.7); EOS % 1.1 % (0.0-4.0); LYMPH # 1.9 K/uL (1.0-4.3); LYMPH % 17.9 % (20.0-40.0); MEAN CELL VOLUME 86.2 fL (81.0-99.0); MEAN CORPUSCULAR HEMOGLOBIN 28.2 pg (27.0-31.0); MEAN CORPUSCULAR HGB CONC 32.6 g/dL (33.0-37.0); MEAN PLATELET VOLUME 11.2 fL (7.2-11.7); MONO # 0.6 K/uL (0.0-0.8); MONO % 5.4 % (0.0-10.0); NEUT # 7.8 K/uL (1.8-7.0); NEUT % 74.2 % (50.0-75.0); NRBC % 0.2 % (0.0-2.0); RBC 4.04 Mil/uL (3.80-5.20); RED CELL DISTRIBUTION WIDTH 14.5 % (11.5-14.5); WHITE BLOOD COUNT 10.6 K/uL (4.8-10.8)
[2018-05-13] MEDS ORDERED: Sodium Chloride 0.9% 1,000 ML ONE ×2 (15:43→18:38)
[2018-05-13 15:44] LABS: HEMOGLOBIN 11.4 g/dL (11.0-16.0)
[2018-05-13] MEDS ORDERED: Dextrose 5%/0.9% NS 1,000 ML IV ONE ×2 (15:48→15:59)
[2018-05-13 15:51] LABS: INR 0.9
--- NOTE | 2018-05-13 15:51 | C.PDOC ---
History Of Present Illness 27 y/o female with a PMHx of DM, HTN, ESRD, and gastroparesis, presents to the ED for evaluation of recurrent vomiting that began this morning. Mom at bedside states patient was fine when she woke, ate a breakfast of [place] toast and sausage, and then 10 minutes later began vomiting. No diarrhea. Patient is also complaining of upper abdominal pain. She tried taking her Metoclopramide at home, but the vomiting is persistent. Mom notes the patient took her insulin this morning, and blood sugar was 114. She denies any fevers, chills, or urinary complaints. Time Seen by Provider: 05/13/18 15:03 Chief Complaint (Nursing): GI Problem History Per: Patient History/Exam Limitations: no limitations Onset/Duration Of Symptoms: Hrs Current Symptoms Are (Timing): Still Present Location Of Pain/Discomfort: Epigastric Radiation Of Pain To:: Back Quality Of Discomfort: "Pain" Associated Symptoms: Nausea, Vomiting Past Medical History Reviewed: Historical Data, Nursing Documentation, Vital Signs Vital Signs: Last Vital Signs Temp 98.4 F 05/13/18 15:16 Pulse 109 H 05/13/18 15:16 Resp 20 05/13/18 15:16 BP 194/130 H 05/13/18 15:16 Pulse Ox 98 05/13/18 15:16 - Medical History PMH: Anemia, Anxiety, Depression, Diabetes, HTN, End Stage Renal Disease, Chronic Kidney Disease, Seizures (Pseudo seizures?) Other PMH: Gastroparesis Surgical History: Appendectomy, Endoscopy - [facility] Procedures EXCISION OF STOMACH, ENDO, DIAGN (11/02/16) EXCISION OF STOMACH, PYLORUS, ENDO, DIAGN (03/10/17) GROUP PSYCHOTHERAPY (06/09/17) INDIVIDUAL PSYCHOTHERAPY, SUPPORTIVE (06/09/17) INSERTION OF INFUSION DEV INTO L SUBCLAV VEIN, PERC APPROACH (10/28/16) INSERTION OF INFUSION DEV INTO SUP VENA CAVA, PERC APPROACH (11/23/17) INTRODUCTION OF NUTRITIONAL INTO PERIPH VEIN, PERC APPROACH (10/16/16) MEDICATION MANAGEMENT (06/09/17) ULTRASONOGRAPHY OF SUPERIOR VENA CAVA, GUIDANCE (10/16/16) Family History: States: Unknown Family Hx - Social History Hx Tobacco Use: No Hx Alcohol Use: No Hx Substance Use: No - Immunization History Hx Tetanus Toxoid Vaccination: No Hx Influenza Vaccination: Yes Hx Pneumococcal Vaccination: Yes Review Of Systems Except As Marked, All Systems Reviewed And Found Negative. Constitutional: Negative for: Fever, Chills Cardiovascular: Negative for: Chest Pain Respiratory: Negative for: Shortness of Breath Gastrointestinal: Positive for: Nausea, Vomiting, Abdominal Pain (epigastric). Negative for: Diarrhea, Melena, Hematochezia Genitourinary: Negative for: Dysuria, Frequency, Vaginal Bleeding Skin: Negative for: Rash Neurological: Negative for: Headache, Dizziness Physical Exam - Physical Exam Appears: Non-toxic, Other (Appears uncomfortable, actively spitting and retching) Skin: Warm, Dry Head: Atraumatic, Normacephalic Eye(s): bilateral: Normal Inspection, PERRL, EOMI Neck: Normal ROM Chest: Symmetrical Cardiovascular: Rhythm Regular, No Murmur Respiratory: Normal Breath Sounds, No Accessory Muscle Use, Other (No respiratory distress) Gastrointestinal/Abdominal: Soft, Tenderness (diffuse abdominal tenderness), No Distention, No Guarding Extremity: Bilateral: Atraumatic, Normal Color And Temperature Pulses: Left Dorsalis Pedis: Normal, Right Dorsalis Pedis: Normal Neurological/Psych: Oriented x3 ED Course And Treatment - Laboratory Results Result Diagrams: 05/13/18 15:40 05/13/18 15:40 O2 Sat by Pulse Oximetry: 98 (RA) Pulse Ox Interpretation: Normal Medical Decision Making Medical Decision Making: Finger stick BS is 73 in the ED. Plan: --CMP --CBC --coag panel --10 mg IV Reglan --D50 IV fluids infusing, will reassess Old records reviewed, the patient was last seen in the hospital this week for similar symptoms. The patient was admitted for gastroparesis and was discharged home yesterday. The case was discussed with Dr. King who states that the patient's are improved and the patient has displayed manipulative behavior and shows drug seeking behavior. The case was also discussed with Dr. Nieves (sanitarian) who states that her creatinine is at baseline and does not require admission Disposition - Disposition Referrals: Reza King Jr., MD [Medical Doctor] - Disposition: HOME/ ROUTINE Disposition Time: 18:44 Condition: GOOD Additional Instructions: Follow up with the medical doctor within 1-2 days, return if worsened. Instructions: Gastroparesis (Delayed Gastric Emptying) (DC) Forms: [facility] [employer] [facility] (Armenian) - Clinical Impression Clinical Impression: Gastroparesis - PA / CLOTH SANDER / Resident Statement MD/DO has reviewed & agrees with the documentation as recorded. - Scribe Statement The provider has reviewed the documentation as recorded by the Scribelvis Mario All medical record entries made by the Scribe were at my direction and personally dictated by me. I have reviewed the chart and agree that the record accurately reflects my personal performance of the history, physical exam, medical decision making, and the department course for this patient. I have also personally directed, reviewed, and agree with the discharge instructions and disposition.
[2018-05-13 16:09] LABS: ALB/GLOB RATIO 1.2 (1.0-2.1); ALBUMIN 3.6 g/dL (3.5-5.0); ALT/SGPT < 6 U/L (9-52); AST/SGOT 23 U/L (14-36); BLOOD UREA NITROGEN 24 mg/dL (7-17); CALCIUM 8.9 mg/dl (8.6-10.4); GFR NON-AFRICAN AMERICAN 11; LIPASE 19 U/L (23-300)
[2018-05-13 16:13] LABS: PROTHROMBIN TIME 9.8 SECONDS (9.7-12.2)
[2018-05-13] MEDS ORDERED: Sodium Chloride 0.9% 1,000 ML IV ONE (18:21)
[2018-05-13 21:31] VITALS: BP 173/105; PULSE 97; RESP 20; TEMP 99.6; O2SAT 98
== END 2018-05-13 21:58 | disposition home or self-care (01) ==
LOC: C.ER 14:56
DX: K31.84 Gastroparesis (principal)
CPT/HCPCS: 80053; 82948; 83690; 85025; 85610; 85730; 96361; 96365; 96375; 99285; J2405; J2765; J7030; J7042

== ENCOUNTER 2018-06-20 06:13 | Emergency (ER) | payer MEDICAID ==
[2018-06-20 07:31] VITALS: RESP 15; TEMP 98.5; O2SAT 98
--- NOTE | 2018-06-20 07:38 | C.PDOC ---
History Of Present Illness 28 years old Female with PMHx of Dguzfke-swrkrypwv-Cjxiidaw presents to ED for complaints of altered mental status. As per mother, she found patient at 3AM not responding and her accu-check was 47. On arrival patient's accucheck was 56, glucose PO was given and 1 amp of glucogen IM. Patient became awake, alert, and omitted x3. Denies pain or fever. Time Seen by Provider: 06/20/18 07:10 Chief Complaint (Nursing): Altered Mental Status History Per: Patient, Family (Mom) History/Exam Limitations: Clinical Condition Onset/Duration Of Symptoms: Hrs Onset Of Symptoms: <4.5 Hours Current Symptoms Are (Timing): Still Present Usual Baseline: Alert Oriented Exacerbating Factor(s): Diabetic Use Of Anticoag/Antiplatelets: Unknown Speech Is: Normal Past Medical History Reviewed: Historical Data, Nursing Documentation, Vital Signs Vital Signs: Last Vital Signs Temp 98.5 F 06/20/18 07:30 Pulse 82 06/20/18 07:30 Resp 15 06/20/18 07:30 BP 151/101 H 06/20/18 07:30 Pulse Ox 98 06/20/18 07:30 - Medical History PMH: Anemia, Anxiety, Bronchitis, Depression, Diabetes, HTN, End Stage Renal Disease, Chronic Kidney Disease, Seizures (Pseudo seizures?) Surgical History: Appendectomy, Endoscopy - [facility] Procedures (06/03/18) (02/23/18) BYPASS LEFT BRACHIAL ARTERY TO UPPER ARM VEIN, OPEN APPROACH (04/28/18) EXCISION OF STOMACH, ENDO, DIAGN (11/02/16) EXCISION OF STOMACH, PYLORUS, ENDO, DIAGN (03/10/17) FLUOROSCOPY OF RIGHT SUBCLAVIAN VEIN, GUIDANCE (01/16/18) GROUP PSYCHOTHERAPY (06/09/17) INDIVIDUAL PSYCHOTHERAPY, SUPPORTIVE (06/09/17) INSERT INFUSION DEV IN L EXT JUGULAR VEIN, PERC (05/29/18) INSERTION OF INFUSION DEV INTO L FEMOR VEIN, PERC APPROACH (02/23/18) INSERTION OF INFUSION DEV INTO L SUBCLAV VEIN, PERC APPROACH (10/28/16) INSERTION OF INFUSION DEV INTO R SUBCLAV VEIN, PERC APPROACH (01/16/18) INSERTION OF INFUSION DEV INTO SUP VENA CAVA, PERC APPROACH (11/23/17) INTRODUCTION OF NUTRITIONAL INTO PERIPH VEIN, PERC APPROACH (10/16/16) MEDICATION MANAGEMENT (06/09/17) ULTRASONOGRAPHY OF SUPERIOR VENA CAVA, GUIDANCE (10/16/16) Family History: States: Unknown Family Hx - Social History Hx Tobacco Use: No Hx Alcohol Use: No Hx Substance Use: No - Immunization History Hx Tetanus Toxoid Vaccination: No Hx Influenza Vaccination: Yes Hx Pneumococcal Vaccination: Yes Review Of Systems Except As Marked, All Systems Reviewed And Found Negative. Constitutional: Negative for: Fever, Chills Gastrointestinal: Negative for: Nausea, Vomiting, Diarrhea Skin: Negative for: Rash Neurological: Negative for: Weakness, Numbness Physical Exam - Physical Exam Appears: Well, Non-toxic, No Acute Distress Skin: Normal Color, Warm, Dry, No Rash Head: Atraumatic, Normacephalic Eye(s): bilateral: Normal Inspection, PERRL, EOMI Oral Mucosa: Moist Neck: Normal ROM, Supple Chest: Symmetrical, No Tenderness Cardiovascular: Rhythm Regular, No Murmur Respiratory: Normal Breath Sounds, No Rales, No Rhonchi, No Wheezing Gastrointestinal/Abdominal: Normal Exam, Soft, No Tenderness, No Distention Extremity: Normal ROM Extremity: Bilateral: Atraumatic, Normal Color And Temperature, Normal ROM Pulses: Left Radial: Normal, Right Radial: Normal Neurological/Psych: Oriented x3, Normal Speech, Other (No focal deficits ) Gait: Steady ED Course And Treatment - Laboratory Results Result Diagrams: 06/20/18 07:31 06/20/18 07:31 O2 Sat by Pulse Oximetry: 98 (RA) Pulse Ox Interpretation: Normal - Other Rad CXR X-Ray: Viewed By Me, Read By Radiologist Interpretation: Date of service: 06/20/2018. HISTORY: Weakness. COMPARISON: Comparison chest 05/05/2018. FINDINGS: Situ large-bore central venous access catheter with tip in the SVC/RA junction. LUNGS: Mild bibasilar atelectasis.. PLEURA: No significant pleural effusion identified, no pneumothorax apparent. CARDIOVASCULAR: No aortic atherosclerotic calcification present. Heart is upper limits of normal size no pulmonary vascular congestion. OSSEOUS STRUCTURES: No significant abnormalities. VISUALIZED UPPER ABDOMEN: Normal. OTHER FINDINGS: None. IMPRESSION: Minor bibasilar atelectasis. Medical Decision Making Medical Decision Making: Plan: * Blood work * Urine culture * Urinalysis CXR: * Heart size normal * No infiltrates Progress: Spoke with Migue Weinberg (nephrology); patient's white blood cell count was elevated to 17. Recommended blood culture and will follow up with patient tomorrow during dialysis. Patient currently denies fever or other complaints. Patient is stable for discharge and will be discharged. Return if symptoms persist or worsen. Disposition Discussed With : Migue Nieves Comment: Rec d/c home, will follow up om blood culture outpatient, dialisys tomorrow - Disposition Referrals: Reza King Jr., MD [Medical Doctor] - Disposition: HOME/ ROUTINE Disposition Time: 09:16 Condition: STABLE Additional Instructions: Dialisys tomorrow. Follow up on urine and blood culture results with PMD. Instructions: Low Blood Sugar, Adult (DC) Forms: [facility] (Hungarian) - Clinical Impression Clinical Impression: Hypoglycemia, ESRD on hemodialysis, Elevated WBC count - Scribe Statement The provider has reviewed the documentation as recorded by the Scribe Nelson Salas All medical record entries made by the Scribe were at my direction and personally dictated by me. I have reviewed the chart and agree that the record accurately reflects my personal performance of the history, physical exam, medical decision making, and the department course for this patient. I have also personally directed, reviewed, and agree with the discharge instructions and disposition.
[2018-06-20 07:46] LABS: BASO # 0.1 K/uL (0.0-0.2); BASO % 0.4 % (0.0-2.0); EOS # 0.1 K/uL (0.0-0.7); EOS % 0.5 % (0.0-4.0); LYMPH # 1.2 K/uL (1.0-4.3); LYMPH % 7.2 % (20.0-40.0); MEAN CORPUSCULAR HEMOGLOBIN 27.8 pg (27.0-31.0); MEAN CORPUSCULAR HGB CONC 30.2 g/dL (33.0-37.0); MEAN PLATELET VOLUME 9.5 fL (7.2-11.7); MONO % 5.8 % (0.0-10.0); NEUT # 14.8 K/uL (1.8-7.0); NEUT % 86.1 % (50.0-75.0); NRBC % 0.5 % (0.0-2.0); PLATELET COUNT 334 K/uL (130-400); RBC 3.62 Mil/uL (3.80-5.20); RED CELL DISTRIBUTION WIDTH 16.8 % (11.5-14.5)
[2018-06-20 07:47] LABS: BLOOD UREA NITROGEN 38 mg/dL (7-17); CALCIUM 8.9 mg/dl (8.6-10.4); GFR NON-AFRICAN AMERICAN 11
[2018-06-20 07:48] LABS: WHITE BLOOD COUNT 17.1 K/uL (4.8-10.8)
[2018-06-20 07:49] LABS: MEAN CELL VOLUME 92.1 fL (81.0-99.0)
[2018-06-20 07:53] LABS: ALB/GLOB RATIO 1.2 (1.0-2.1); ALBUMIN 3.8 g/dL (3.5-5.0); ALT/SGPT < 6 U/L (9-52); AST/SGOT 38 U/L (14-36)
[2018-06-20 08:04] LABS: URINE BILIRUBIN NEGATIVE (NEGATIVE); URINE BLOOD NEGATIVE (NEGATIVE); URINE CLARITY Clear (Clear); URINE COLOR Straw (YELLOW); URINE GLUCOSE (UA) 2+ mg/dL (Normal); URINE LEUKOCYTE ESTERASE NEG Leu/uL (Negative); URINE PROTEIN 2+ mg/dL (NEGATIVE); URINE UROBILINOGEN NORMAL mg/dL (0.2-1.0)
[2018-06-20 08:09] LABS: SQUAMOUS EPITHIAL 4 /hpf (0-5); URINE BACTERIA OCC (<OCC)
[2018-06-20 08:19] LABS: BANDS 2 % (0-2); MONOCYTE 5 % (0-10); NUCLEATED RED BLOOD CELL 2 % (0-0)
[2018-06-20 08:20] LABS: ANISOCYTOSIS SLIGHT; LYMPHOCYTE 6 % (20-40); NEUTROPHIL 87 % (50-75); PLATELET ESTIMATE NORMAL (NORMAL); POIKILOCYTOSIS SLIGHT; TOTAL CELLS COUNTED 100
[2018-06-20 08:21] LABS: BURR CELLS SLIGHT; HYPOCHROMIC SLIGHT; LARGE PLATELETS PRESENT; MICROCYTOSIS SLIGHT; OVALOCYTES SLIGHT; POLYCHROMIC SLIGHT; SCHISTOCYTES SLIGHT
[2018-06-20 09:00] LABS: VENOUS BLOOD GAS BASE EXCESS -5.8 mmol/L (0.0-2.0); VENOUS BLOOD GAS PCO2 37 mmHg (40-60); VENOUS BLOOD GAS PO2 117 mm/Hg (30-55); VENOUS BLOOD PH 7.33 (7.32-7.43)
[2018-06-20] MEDS ORDERED: cefTRIAXone 1 gm in Water For Injection 2.1 ML IM ONE ×2 (09:18→10:00)
--- NOTE | 2018-06-20 10:15 | RAD ---
Date of service: 06/20/2018 HISTORY: Weakness COMPARISON: Comparison chest 05/05/2018 FINDINGS: Situ large-bore central venous access catheter with tip in the SVC/RA junction. LUNGS: Mild bibasilar atelectasis.. PLEURA: No significant pleural effusion identified, no pneumothorax apparent. CARDIOVASCULAR: No aortic atherosclerotic calcification present. Heart is upper limits of normal size no pulmonary vascular congestion. OSSEOUS STRUCTURES: No significant abnormalities. VISUALIZED UPPER ABDOMEN: Normal. OTHER FINDINGS: None. IMPRESSION: Minor bibasilar atelectasis.
[2018-06-20 10:16] VITALS: BP 144/88; PULSE 85
== END 2018-06-20 10:45 | disposition home or self-care (01) ==
LOC: C.ER 06:13
DX: E11.649 Type 2 diabetes mellitus with hypoglycemia without coma (principal); I12.0 Hypertensive chronic kidney disease with stage 5 chronic kidney disease or end stage renal disease; N18.6 End stage renal disease; Z99.2 Dependence on renal dialysis; Z79.4 Long term (current) use of insulin
CPT/HCPCS: 71045; 80053; 81001; 82803; 82948; 85025; 87040; 87086; 96372; 99285; J0696; J2405

== ENCOUNTER 2018-07-05 11:58 | Inpatient (IN) | payer MEDICAID ==
[2018-07-05] MEDS ORDERED: Sodium Chloride 0.9% 1,000 ML IV ONE ×2 (12:28→16:07)
[2018-07-05] MEDS ORDERED: HYDROmorphone 1 mg/ml ISec IVP STA ×2 (12:34→12:44)
[2018-07-05] MEDS ORDERED: Dextrose 50% SYRINGE Inj (50 ml) IV PRN (13:48)
[2018-07-05] MEDS ORDERED: Glucagon Recombinant 1 mg Inj IM PRN (13:48)
[2018-07-05] MEDS ORDERED: (Novolin R) Insulin Human Regular 100 units/ml vial SC ONE (13:59)
--- NOTE | 2018-07-05 14:02 | C.PDOC ---
History Of Present Illness 28 y/o female,w/PMhx of diabetes, ESRD, pseudoseizures, and gastroparesis, brought to ER by ambulance for evaluation of diffuse abdominal pain and vomiting. Patient describes the pain as burning sensation and she rates the pain 10/10. Patient reports that she usually takes Dilaudid for the pain. Patient is crying in pain and requesting Dilaudid in the ER.Denies having fever,chills, and diarrhea. Time Seen by Provider: 07/05/18 12:15 Chief Complaint (Nursing): Abdominal Pain History Per: Patient History/Exam Limitations: no limitations Onset/Duration Of Symptoms: Days Current Symptoms Are (Timing): Still Present Severity: Moderate Past Medical History Reviewed: Historical Data, Nursing Documentation, Vital Signs Vital Signs: Last Vital Signs Temp 97.5 F L 07/05/18 12:14 Pulse 98 H 07/05/18 12:14 Resp 20 07/05/18 12:14 BP 229/127 H 07/05/18 12:56 Pulse Ox 98 07/05/18 12:14 - Medical History PMH: Anemia, Anxiety, Bronchitis, Depression, Diabetes, HTN, End Stage Renal Disease, Chronic Kidney Disease, Seizures (Pseudo seizures?) Denies: HIV Surgical History: Appendectomy, Endoscopy - [facility] Procedures (06/03/18) (02/23/18) BYPASS LEFT BRACHIAL ARTERY TO UPPER ARM VEIN, OPEN APPROACH (04/28/18) EXCISION OF STOMACH, ENDO, DIAGN (11/02/16) EXCISION OF STOMACH, PYLORUS, ENDO, DIAGN (03/10/17) FLUOROSCOPY OF RIGHT SUBCLAVIAN VEIN, GUIDANCE (01/16/18) GROUP PSYCHOTHERAPY (06/09/17) INDIVIDUAL PSYCHOTHERAPY, SUPPORTIVE (06/09/17) INSERT INFUSION DEV IN L EXT JUGULAR VEIN, PERC (05/29/18) INSERTION OF INFUSION DEV INTO L FEMOR VEIN, PERC APPROACH (02/23/18) INSERTION OF INFUSION DEV INTO L SUBCLAV VEIN, PERC APPROACH (10/28/16) INSERTION OF INFUSION DEV INTO R SUBCLAV VEIN, PERC APPROACH (01/16/18) INSERTION OF INFUSION DEV INTO SUP VENA CAVA, PERC APPROACH (11/23/17) INTRODUCTION OF NUTRITIONAL INTO PERIPH VEIN, PERC APPROACH (10/16/16) MEDICATION MANAGEMENT (06/09/17) ULTRASONOGRAPHY OF SUPERIOR VENA CAVA, GUIDANCE (10/16/16) Family History: States: No Known Family Hx - Social History Hx Tobacco Use: No Hx Alcohol Use: No Hx Substance Use: No - Immunization History Hx Tetanus Toxoid Vaccination: No Hx Influenza Vaccination: Yes Hx Pneumococcal Vaccination: Yes Review Of Systems Except As Marked, All Systems Reviewed And Found Negative. Constitutional: Negative for: Fever, Chills Gastrointestinal: Positive for: Vomiting, Abdominal Pain. Negative for: Diarrhea Physical Exam - Physical Exam Appears: Non-toxic, No Acute Distress, Other (anxious, thrashing, argumentative) Skin: Warm, Dry, Rash (rash to face and bilateral arms) Head: Atraumatic, Normacephalic Eye(s): bilateral: Normal Inspection Nose: Normal Oral Mucosa: Moist Lips: Other (blood on lips secondary to pt biting lips in ER) Neck: Supple Chest: Symmetrical Cardiovascular: Rhythm Regular Respiratory: Normal Breath Sounds, No Rales, No Rhonchi, No Wheezing Gastrointestinal/Abdominal: Normal Exam, Soft, No Tenderness, No Guarding, No Rebound Extremity: Normal ROM, Other (no pitting edema) Neurological/Psych: Oriented x3, Normal Speech ED Course And Treatment - Laboratory Results Result Diagrams: 07/05/18 14:22 07/05/18 14:22 ECG: Interpreted By Me, Viewed By Me ECG Rhythm: Sinus Rhythm Interpretation Of ECG: NSR with no ST elevations or depressions Rate From EC O2 Sat by Pulse Oximetry: 98 (RA) Pulse Ox Interpretation: Normal Medical Decision Making Medical Decision Making: Plan: --Labs --UA --Dilaudid IV --Pepcid IV --Zofran IV Disposition Discussed With DrTabby: Reza King Jr. - Disposition Disposition: HOSPITALIZED Disposition Time: 14:00 Condition: GUARDED - Clinical Impression Clinical Impression: Abdominal pain, Gastroparalysis - Scribe Statement The provider has reviewed the documentation as recorded by the [place] Provider Attestation: All medical record entries made by the Scribe were at my direction and personally dictated by me. I have reviewed the chart and agree that the record accurately reflects my personal performance of the history, physical exam, medical decision making, and the department course for this patient. I have also personally directed, reviewed, and agree with the discharge instructions and disposition. Decision To Admit - Pt Status Changed To: Hospital Disposition Of: Observation - . Bed Request Type: Regular Admitting Physician: Reza King Jr. Patient Diagnosis: Abdominal pain, Gastroparalysis
[2018-07-05] MEDS ORDERED: (Novolin R) Insulin Human Regular 100 units/ml vial ONE (14:21)
[2018-07-05 14:28] LABS: BASO # 0.1 K/uL (0.0-0.2); BASO % 0.6 % (0.0-2.0); EOS % 0.1 % (0.0-4.0); HEMOGLOBIN 11.8 g/dL (11.0-16.0); LYMPH # 1.2 K/uL (1.0-4.3); LYMPH % 6.8 % (20.0-40.0); MEAN CORPUSCULAR HEMOGLOBIN 28.1 pg (27.0-31.0); MEAN CORPUSCULAR HGB CONC 31.2 g/dL (33.0-37.0); MEAN PLATELET VOLUME 9.4 fL (7.2-11.7); MONO # 0.5 K/uL (0.0-0.8); MONO % 2.8 % (0.0-10.0); NEUT # 16.4 K/uL (1.8-7.0); NEUT % 89.7 % (50.0-75.0); NRBC % 0.2 % (0.0-2.0); PLATELET COUNT 351 K/uL (130-400); RBC 4.19 Mil/uL (3.80-5.20); WHITE BLOOD COUNT 18.2 K/uL (4.8-10.8)
--- NOTE | 2018-07-05 14:32 | CP.PCM.HP ---
History of Present Illness - History of Present Illness History of Present Illness: CC: vomiting for 1 day Patient is a 28 year old female with pmhx of poorly controlled IDDM, ESRD on HD(MWF), and seizures(pseudo?), anxiety who presents to ED today with complaints of nausea and intractable vomiting since this morning. Patient is accompanied by her mother who report pt did not have breakfast this morning, and then began having nausea, followed by multiple episodes of dark blown/bloody emesis. Pt and mother report compliance with diabetic diet at home, and medications and HD as instructed. Pt was scheduled for HD today, however presented to ED before getting dialyzed. Pt reports SOB and epigastric pain since onset of emesis this morning. Pt reports 1 episode of loose BM yesterday, and on average has been urinating approximately 2 times per day. Denies recent illness with fever like symptoms, chest pain, constipation, LE edema. pmhx: IDDM, diabetic gastroparesis, ESRD, seizure hx, anxiety pshx: appy, AVF meds: Coreg 6.25mg po q12, clonidine 0.2mg TD q7d, levemir 15u qd, novolog 7u QID, calcitriol 0.25mcg po MWF, reglan 10mg po q6h prn, zofran 4mg po q6 prn, protonix po allergies: NKDA famhx: Heart disease sochx: Denies alcohol/tobacco/drug use Present on Admission - Present on Admission Any Indicators Present on Admission: No Review of Systems - Constitutional Constitutional: Anorexia. absent: Fever - EENT Eyes: absent: Blurred Vision - Cardiovascular Cardiovascular: Palpitations. absent: Chest Pain, Leg Edema - Respiratory Respiratory: Dyspnea. absent: Cough, Hemoptysis - Gastrointestinal Gastrointestinal: Abdominal Pain (epigastric), Coffee Ground Emesis, Loose Stools (yesterday). absent: Hematochezia, Melena - Genitourinary Genitourinary: absent: Dysuria - Endocrine Endocrine: absent: Polydipsia Past Patient History - Infectious Disease Hx of Infectious Diseases: None - Past Medical History & Family History Past Medical History?: Yes - Past Social History Smoking Status: Never Smoked - CARDIAC Hx Hypertension: Yes - PULMONARY Hx Bronchitis: Yes - NEUROLOGICAL Hx Seizures: Yes (Pseudo seizures?) - HEENT Hx HEENT Problems: Yes Hx Cataracts: Yes - RENAL Hx Chronic Kidney Disease: Yes - ENDOCRINE/METABOLIC Hx Endocrine Disorders: Yes Hx Diabetes Mellitus Type 2: Yes (on insulin pump) - HEMATOLOGICAL/ONCOLOGICAL Hx Anemia: Yes Hx Human Immunodeficiency Virus (HIV): No - INTEGUMENTARY Hx Dermatological Problems: No - MUSCULOSKELETAL/RHEUMATOLOGICAL Hx Musculoskeletal Disorders: Yes Hx Falls: Yes - GASTROINTESTINAL Hx Gastrointestinal Disorders: Yes (SEE COMMENT) Other/Comment: gastroparesis - GENITOURINARY/GYNECOLOGICAL Hx Genitourinary Disorders: No - PSYCHIATRIC Hx Anxiety: Yes Hx Depression: Yes Hx Substance Use: No - SURGICAL HISTORY Hx Appendectomy: Yes - ANESTHESIA Hx Anesthesia: Yes Hx Anesthesia Reactions: No Hx Malignant Hyperthermia: No Meds Allergies/Adverse Reactions: Allergies Allergy/AdvReac Type Severity Reaction Status Date / Time No Known Allergies Allergy Verified 07/05/18 12:16 Physical Exam - Constitutional Appears: Non-toxic, Other (actively vomiting and uncooperative with exam) - Head Exam Head Exam: ATRAUMATIC, NORMAL INSPECTION, NORMOCEPHALIC - Eye Exam Eye Exam: EOMI, Normal appearance - ENT Exam ENT Exam: Mucous Membranes Moist, Normal Exam - Neck Exam Neck exam: Positive for: Normal Inspection Additional comments: right chest portacath, bandaged clean/dry/intact, no surrounding erythema - Respiratory Exam Respiratory Exam: Clear to Auscultation Bilateral. absent: Respiratory Distress, NORMAL BREATHING PATTERN (tachypneic) - Cardiovascular Exam Cardiovascular Exam: Tachycardia, REGULAR RHYTHM, +S1, +S2 - GI/Abdominal Exam GI & Abdominal Exam: Hypoactive Bowel Sounds, Soft, Tenderness. absent: Distended Additional comments: patient reports diffuse pain on palpation, minimal TTP when pt unaware - Extremities Exam Extremities exam: Positive for: normal inspection. Negative for: calf tenderness, pedal edema Additional comments: left UE AVF, palpable thrill, no erythema - Back Exam Back exam: NORMAL INSPECTION - Neurological Exam Neurological exam: Alert, Oriented x3 - Psychiatric Exam Psychiatric exam: Flat Affect - Skin Skin Exam: Dry, Intact, Normal Color, Warm Additional comments: multiple hyperpigmented scars on lower face/neck Results - Vital Signs Recent Vital Signs: Last Vital Signs Temp 97.5 F L 07/05/18 12:14 Pulse 98 H 07/05/18 12:14 Resp 20 07/05/18 12:14 BP 229/127 H 07/05/18 12:56 Pulse Ox 98 07/05/18 14:02 - Labs Result Diagrams: 07/05/18 14:22 07/05/18 14:22 Labs: Laboratory Results - last 24 hr 07/05/18 12:10 POC Glucose (mg/dL) 392 H Assessment & Plan - Assessment and Plan (Free Text) Assessment: 28 year old female w/ pmhx of IDDM, diabetic gastroparesis, ESRD, anxiety and seizure history admitted Plan: Intractable vomiting, acute -likely 2/2 diabetic gastroparesis -coffee ground emesis -hgb 11.8, continue to monitor for acute blood loss -antiemetics, zofran/reglan q6 prn -NPO -IVF, NS @100/hr -hypertensive on admission at 212/114 ESRD -HD MWF -Cr 7.8 on admission -Nephro consult, Dr. Nieves IDDM, chronic -hyperglycemic on admission, BG 392 -IVF, NS 250cc bolus; 100cc/hr -hold home medications -accuchecks q4h -ISS medium -levemir 7u qd -hypoglycemia protocol HTN, chronic -BP 212/114 on admission -continue home clonidine 0.2 TD Q7D -pt NPO, consider IV labetalol if needed Ppx GI: protonix ggt VTE: SCDs, AC contraindicated 2/2 suspected GI bleed Discussed w/ Dr. Christine Pinzon, PGY-1
[2018-07-05 14:54] LABS: BANDS 1 % (0-2); LYMPHOCYTE 7 % (20-40); MONOCYTE 3 % (0-10); NEUTROPHIL 89 % (50-75); PLATELET ESTIMATE NORMAL (NORMAL); TOTAL CELLS COUNTED 100
[2018-07-05 14:55] LABS: ANISOCYTOSIS SLIGHT; POIKILOCYTOSIS SLIGHT
[2018-07-05 14:57] LABS: ALB/GLOB RATIO 1.5 (1.0-2.1); ALBUMIN 4.2 g/dL (3.5-5.0); CALCIUM 9.3 mg/dl (8.6-10.4)
[2018-07-05] MEDS ORDERED: Sodium Chloride 0.9% 250 ML IV ONE ×2 (15:06→17:16)
--- NOTE | 2018-07-05 16:44 | RAD ---
Chest x-ray single frontal view HISTORY: Shortness of breath. COMPARISON: 06/20/2018 FINDINGS: Mild venous congestion. Right central venous catheter tip extending into the right atrium. Heart size within normal limits. Impression: Mild venous congestion.
[2018-07-05] MEDS ORDERED: (Novolog) Insulin Aspart, Recombinant 100 u/ml 10 ml vial ONE (17:23)
[2018-07-05] MEDS ORDERED: Insulin Detemir 100 units/ml Vial (Levemir) SC ONE (17:24)
[2018-07-05] MEDS: Insulin Detemir 100 units/ml Vial (Levemir) SC SCH (17:26)
[2018-07-05] MEDS: Pantoprazole 80 MG in Sodium Chloride 0.9% 100 ML IVPB SCH (17:26)
[2018-07-05] MEDS: (Novolin R) Insulin Human Regular 100 units/ml vial SC SCH ×3 (17:27→23:02)
[2018-07-05] MEDS ORDERED: Labetalol 5 mg/ml Inj 20ML IVP STA (18:41)
[2018-07-05] MEDS ORDERED: Labetalol 5 mg/ml Inj 20ML IVP PRN (18:42)
[2018-07-05] MEDS: Labetalol 5mg/ml (4ml) IVP PRN ×2 (18:52→18:55)
[2018-07-05] MEDS: HYDROmorphone 0.5 mg/0.5 ml ISec IVP PRN (22:18)
[2018-07-06 02:50] LABS: SQUAMOUS EPITHIAL 1 /hpf (0-5); URINE BACTERIA RARE (<OCC); URINE BILIRUBIN NEGATIVE (NEGATIVE); URINE BLOOD NEGATIVE (NEGATIVE); URINE CLARITY Hazy (Clear); URINE COLOR Yellow (YELLOW); URINE GLUCOSE (UA) 3+ mg/dL (Normal); URINE LEUKOCYTE ESTERASE NEG Leu/uL (Negative); URINE PROTEIN 3+ mg/dL (NEGATIVE); URINE UROBILINOGEN NORMAL mg/dL (0.2-1.0)
[2018-07-06 02:55] LABS: BARBITURATES, UR NEGATIVE (NEGATIVE); BENZODIAZEPINES, UR NEGATIVE (NEGATIVE); OPIATES, UR NEGATIVE (NEGATIVE); PHENCYCLIDINE, UR NEGATIVE (NEGATIVE)
[2018-07-06] MEDS ORDERED: Nitroglycerin 2% Ointment Foilpak UD TOP ONE (04:39)
[2018-07-06] MEDS: (Novolin R) Insulin Human Regular 100 units/ml vial SC SCH ×5 (05:04→22:00)
[2018-07-06] MEDS: HYDROmorphone 0.5 mg/0.5 ml ISec IVP PRN (05:24)
[2018-07-06] MEDS: Pantoprazole 80 MG in Sodium Chloride 0.9% 100 ML IVPB SCH ×3 (05:26→21:15)
--- NOTE | 2018-07-06 07:14 | CP.PCM.PN ---
Objective - Vital Signs/Intake and Output Vital Signs (last 24 hours): Temp Pulse Resp BP Pulse Ox 99.0 F 110 H 20 176/108 H 97 07/06/18 04:34 07/06/18 04:34 07/06/18 04:34 07/06/18 04:34 07/06/18 04:34 - Medications Medications: Current Medications Clonidine HCl (Catapres-Tts2 0.2 Mg/24 Hr) 1 patch TD Q7D@1000 KELVIN Dextrose (Dextrose 50% Inj) 0 ml IV STAT PRN; Protocol PRN Reason: Hypoglycemia Protocol Dextrose (Glutose 15) 0 gm PO ONCE PRN; Protocol PRN Reason: Hypoglycemia Protocol Glucagon (Glucagen Diagnostic Kit) 0 mg IM STAT PRN; Protocol PRN Reason: Hypoglycemia Protocol Hydromorphone HCl (Dilaudid) 0.5 mg IVP Q6H PRN PRN Reason: Pain, severe (8-10) Last Admin: 07/06/18 05:24 Dose: 0.5 mg Dextrose (Dextrose 5% In Water 1000 Ml) 1,000 mls @ 0 mls/hr IV .Q0M PRN; Protocol PRN Reason: Hypoglycemia Protocol Pantoprazole Sodium 80 mg/ (Sodium Chloride) 100 mls @ 10 mls/hr IVPB .Q10H KELVIN Last Admin: 07/06/18 05:26 Dose: 10 mls/hr Insulin Detemir (Levemir) 7 unit SC DAILY KELVIN Last Admin: 07/05/18 17:26 Dose: 7 unit Insulin Human Regular (Novolin R) 0 unit SC Q6H KELVIN; Protocol Last Admin: 07/06/18 05:04 Dose: Not Given Labetalol HCl (Trandate) 20 mg IVP Q4H PRN PRN Reason: Systolic Blood Pressure Last Admin: 07/05/18 18:52 Dose: 20 mg Metoclopramide HCl (Reglan) 10 mg IVP Q6H KELVIN Last Admin: 07/06/18 02:35 Dose: Not Given Ondansetron HCl (Zofran Inj) 4 mg IVP Q6H KELVIN Last Admin: 07/06/18 05:25 Dose: 4 mg - Labs Labs: 07/05/18 14:22 07/05/18 14:22
[2018-07-06] MEDS: Labetalol 5mg/ml (4ml) IVP PRN (08:17)
--- NOTE | 2018-07-06 08:57 | PCM.RRT ---
<Mal Lynn - Last Filed: 07/06/18 13:18> LIQUID FERTILIZER SERVICER Nurses Assessment - Situation Date: 07/06/18 Time LIQUID FERTILIZER SERVICER was called: 08:38 LIQUID FERTILIZER SERVICER Responder Arrival Time:: 08:40 LIQUID FERTILIZER SERVICER Location:: Radiology LIQUID FERTILIZER SERVICER Reason for Call: Change in Mental Status LIQUID FERTILIZER SERVICER Called By: RN - IV IV Inserted during LIQUID FERTILIZER SERVICER?: No New IV Insertion Tolerance: Excellent - Respiratory LIQUID FERTILIZER SERVICER Delivery Method: Nasal Cannula @L/min Oxygen Flow Rate: 2 Received Nebulizer Treatments: No Was the Patient Ventilated with Bag/Mask 100% O2?: No Secretions Suctioned?: No Was the Patient Intubated?: No Was the Patient Placed on a Ventilator?: No I.Reason for LIQUID FERTILIZER SERVICER - A) Acute Change in Patient: (Select all that apply): Acute change in mental status - Neurological Status (Select all that apply): Alert, Oriented, Verbal, Follows Commands - Respiratory Oxygen Delivery Method: Nasal Cannula @L/min - Constitutional Appears: Agitated - Head Head Exam: ATRAUMATIC, NORMOCEPHALIC - Eyes Eye Exam: EOMI, PERRL - Respiratory Exam Respiratory Exam: NORMAL BREATHING PATTERN - Cardiovascular Exam Cardiovascular Exam: REGULAR RHYTHM, +S1, +S2 - GI/Abdominal Exam GI & Abdominal Exam: Soft - Neurological Exam Neurological Exam: Awake - Extremities Exam Extremities Exam: Full ROM, Normal Inspection Plan - Assessment of Findings&Treatment Plan LIQUID FERTILIZER SERVICER note LIQUID FERTILIZER SERVICER called 8:48 in radiology hallway for change of mental status/not responding to command. Patient is a 28 year old female pmhx uncontrolled IDDM I, ESRD on HD (MWF) and anxiety, admitted yesterday for nausea and intractable vomiting. Upon arrival, patient was not awake, eye movement noticed, patient blinked with arm drop, vitals as follow T: 98, HR 108, BP 135/86, RR 20, O2 96%. accuchecks glucose 237. Patient woke up, responding, observed to be anxious and crying, starting shaking, no tongue bitting noticed, no urinary incontinence, no post- ictal state noted. Code star and LIQUID FERTILIZER SERVICER subsequently called in 6T after patient returned from radiology to room. As per nurse and CP, patient sat in the floor and laid down, not responding to command, patient did not fall or hit head or any part of body. Patient was responsive and answered to questions, following verbal command. patient agitated, demanding pain medication, complaining of nausea. troponin and ekg ordered. vitals recorded BP 179/110, HR 103, Oxygenation 91% on nasal cannula. 1:1 observation and avisis monitor. Chlopromazine x [address] pantoja notified of events. <Bhavani Palafox V - Last Filed: 07/10/18 12:43> LIQUID FERTILIZER SERVICER Nurses Assessment - Vital Signs Vital Signs: Rapid Response Vital Sign Blood Pressure 174/110 Pulse Rate 103 Respiratory Rate 18 Oxygen Saturation 91 - Vital Signs at end of LIQUID FERTILIZER SERVICER Vital Signs at end of LIQUID FERTILIZER SERVICER: Rapid Response End Vital Sign Blood Pressure 174/100 Pulse Rate 111 Respiratory Rate 18 O2 Sat by Pulse Oximetry 94 Attending/Attestation - Attestation Notes (Text): late computer entry Brief hospitalist note patient seen and examined at time of LIQUID FERTILIZER SERVICER. Patient noted history of insulin dependent diabetes, severe gastroparesis, esrd noted during CT scan as LIQUID FERTILIZER SERVICER. Sugar noted normal. Patient proceeding to violently shake to mimic seizure however she is known for pseudoseizure and is evident at bedside that she is faking this. Patient then proceeded to ask for dialudid which I was not comfortable giving her. patient then was shortly called for LIQUID FERTILIZER SERVICER again when she was brought to room but no acute change since when I saw her down in CT scan. placed 1:1. Further management per primary attending.
--- NOTE | 2018-07-06 09:30 | RAD ---
Date of service: 07/06/2018 PROCEDURE: Radiographs of the chest and abdomen (obstructive series) HISTORY: abd pain technologist has noted that the patient could not finish the exam due to medical attention needed. Would recommend completion of the abdomen portion of this exam this exam is more of a single frontal chest exam than abdomen exam. COMPARISON: No prior. TECHNIQUE: AP radiograph of the chest FINDINGS: CHEST: Lungs: Clear. Cardiovascular: Normal size heart. No pulmonary vascular congestion. A right central line catheter is in place tip at cavoatrial junction. No aortic atherosclerotic calcification present Pleura: No pleural fluid. No pneumothorax. Other findings: None. ABDOMEN AND PELVIS: Not applicable IMPRESSION: No pulmonary infiltrate. Central line tip appears in good position. No pneumothorax seen The exam does not include adequate abdominal coverage to comment on. Please note the above history. Comments: If there is any concern for abdominal obstruction, abdominal supine and upright views recommended for further evaluation-when patient can tolerate Comments: Study marked for PA review ..
--- NOTE | 2018-07-06 10:14 | CON ---
DATE: 07/05/2018 NEPHROLOGY CONSULTATION LOCATION: [facility]. HISTORY OF PRESENT ILLNESS: The patient is a 28-year-old female with past medical history of hypertension, diabetes with diabetic nephropathy, and nephrotic syndrome, diabetic gastroparesis, pseudoseizures, and ESRD, on hemodialysis (Thursday, Thursday, Thursday at [facility] under our outpatient service), presented to ED today with intractable vomiting since this morning; Nephrology being consulted for ESRD care; the patient has history of having multiple ER visits and admissions with gastroparesis flares; the patient reportedly was doing well lately up until this weekend when she reportedly may have had some spicy soup; the vomiting started today with the patient's mother noting dark emesis; the patient currently complaining of abdominal pain, asking for Dilaudid; the patient also complaining of anxiety and asking for Ativan. Of note, the patient has had very erratic blood sugar control; was in ED last month with severe hypoglycemia; was admitted last month with intractable vomiting once again. PAST MEDICAL HISTORY: As above with biopsy-proven diabetic nephropathy in 2017; status post left arm AV fistula creation in 04/2018 and initiation of hemodialysis in 04/2018 via right IJ tunneled catheter. FAMILY HISTORY: Heart disease. SOCIAL HISTORY: Nonsmoker. REVIEW OF SYSTEMS: Limited as the patient is lethargic at times and fixated on her pain and anxiety at times. From previous history; HEENT: Blurred vision at times. CARDIOVASCULAR: Intermittently has reported chest pain that she attributes to anxiety. RESPIRATORY: Dyspnea-related anxiety. GASTROINTESTINAL: As per HPI. GENITOURINARY: Denies any dysuria. Has been having decreased urination lately only 1 to 2 times per day. PSYCHIATRIC: History of pseudoseizures and anxiety issues. PHYSICAL EXAMINATION: VITAL SIGNS: Today, blood pressure 208/124, heart rate 121, respirations 18, temperature 98.3, O2 sat 98% on room air. GENERAL: The patient asleep at one point in no distress. HEENT: Moist mucous membranes. Nonicteric. No cervical lymphadenopathy. RESPIRATORY: Lungs clear to auscultation bilaterally. No rales or rhonchi. No wheezes. CARDIOVASCULAR: Heart sounds S1 and S2 normal. No murmur. No gallops. No rubs. GASTROINTESTINAL: Abdomen nondistended. No tenderness to light palpation. EXTREMITIES: No leg edema. NEUROLOGIC: No resting tremor. PSYCHIATRIC: The patient crying for pain meds. LABORATORY DATA: CBC; WBC 18.2, hemoglobin is 11.8, hematocrit 37.7, platelets 351. Chemistry panel; sodium 136, potassium 4.7, chloride 103, bicarb 15, BUN 57, creatinine 7.8, glucose 464, calcium 9.3, phosphorus 7, albumin 4.2. Chest x-ray directly visualized, lungs clear. ASSESSMENT AND PLAN: 1. Hypertensive urgency. The patient often has severely elevated blood pressures during her gastroparesis flares; had been on clonidine 0.2 mg at weekly and Coreg 12.5 mg 2 times a day; outpatient blood pressures had been relatively well controlled; giving 250 mL intravenous fluid boluses to counter any renin-mediated hypertension in the setting of volume depletion (labs indicative of profound hemoconcentration with elevated h/h and albumin from baseline). -Continue clonidine patch 0.2 mg. Give by mouth clonidine 0.1 mg every 6 hours as needed once able to tolerate PO meds; -IV labetalol 20 mg q4h prn for SBP > 180; 2- ESRD on HD - Stable lytes except for high anion gap metabolic acidosis that may be from DKA and/or lactic acidosis; notably volume contracted; CXR clear; dialyzing today per routine mainly for clearance; -will obtain duplex of AVF while patient is here (AVF not yet matured, being followed by vasc surgery); 3- SIRS - With leukocytosis in the setting of volume depletion; will f/u blood cultures; keeping on IVF w/ NS at 100 cc/hr; 4- Anemia of CKD - Hgb has been below goal lately (10-11g); will avoid giving any aranesp until BP better controlled; 5- Gastroparesis - With recurrent flares; currrenlty on IV reglan 10 mg q6h, should decrease to 5 mg to limit toxicity in the setting of renal failure; Thank you for this referral, we will be following closely. Migue Nieves MD [facility]
[2018-07-06] MEDS: Insulin Detemir 100 units/ml Vial (Levemir) SC SCH (10:39)
[2018-07-06] MEDS ORDERED: HYDROmorphone 0.5 mg/0.5 ml ISec IVP ONE (11:00)
[2018-07-06] MEDS: Sodium Chloride 0.45% 1,000 ML IV SCH ×2 (13:25→22:42)
--- NOTE | 2018-07-06 15:26 | CP.PCM.PN ---
<Darren Oneal - Last Filed: 07/07/18 06:29> Subjective - Date & Time of Evaluation Date of Evaluation: 07/06/18 Time of Evaluation: 15:26 - Subjective Subjective: Nephrology Progress Note (Dr. Nieves's Service): Patient seen and assessed at bedside. Patient noted to have an ADULT BASIC EDUCATION TEACHER for AMS and this resolved without any medical intervention. Patient denies any complaints currently. 12 point ROS unremarkable at this time. Objective - Vital Signs/Intake and Output Vital Signs (last 24 hours): Temp Pulse Resp BP Pulse Ox 98.5 F 114 H 20 191/113 H 98 07/06/18 07:35 07/06/18 07:35 07/06/18 07:35 07/06/18 07:35 07/06/18 07:35 Intake and Output: 07/06/18 07/06/18 06:59 18:59 Intake Total 165 Output Total 100 Balance 65 - Medications Medications: Current Medications Clonidine HCl (Catapres-Tts2 0.2 Mg/24 Hr) 1 patch TD Q7D@1000 [facility] Clonidine HCl (Catapres-Tts2 0.2 Mg/24 Hr) 1 patch TD Q7D@1000 K[facility]IN Last Admin: 07/06/18 14:38 Dose: 1 patch Dextrose (Dextrose 50% Inj) 0 ml IV STAT PRN; Protocol PRN Reason: Hypoglycemia Protocol Dextrose (Glutose 15) 0 gm PO ONCE PRN; Protocol PRN Reason: Hypoglycemia Protocol Glucagon (Glucagen Diagnostic Kit) 0 mg IM STAT PRN; Protocol PRN Reason: Hypoglycemia Protocol Dextrose (Dextrose 5% In Water 1000 Ml) 1,000 mls @ 0 mls/hr IV .Q0M PRN; Protocol PRN Reason: Hypoglycemia Protocol Pantoprazole Sodium 80 mg/ (Sodium Chloride) 100 mls @ 10 mls/hr IVPB .Q10H [facility] Last Admin: 07/06/18 11:04 Dose: Not Given Sodium Chloride (Sodium Chloride 0.45%) 1,000 mls @ 100 mls/hr IV .Q10H [facility] Last Admin: 07/06/18 13:25 Dose: 100 mls/hr Insulin Detemir (Levemir) 7 unit SC DAILY [facility] Last Admin: 07/06/18 10:39 Dose: Not Given Insulin Human Regular (Novolin R) 0 unit SC Q6H [facility]; Protocol Last Admin: 07/06/18 11:18 Dose: 8 unit Labetalol HCl (Trandate) 20 mg IVP Q4H PRN PRN Reason: Systolic Blood Pressure Last Admin: 07/06/18 08:17 Dose: 20 mg Lorazepam (Ativan) 1 mg IVP Q6H PRN PRN Reason: Anxiety Last Admin: 07/06/18 11:04 Dose: 1 mg Metoclopramide HCl (Reglan) 10 mg IVP Q6H [facility] Last Admin: 07/06/18 14:39 Dose: 10 mg Ondansetron HCl (Zofran Inj) 4 mg IVP Q6H [facility] Last Admin: 07/06/18 11:18 Dose: 4 mg Risperidone (Risperdal Tab) 1 mg PO BID [facility] Last Admin: 07/06/18 13:22 Dose: Not Given - Labs Labs: 07/05/18 14:22 07/05/18 14:22 - Constitutional Appears: Non-toxic, No Acute Distress - Head Exam Head Exam: ATRAUMATIC, NORMOCEPHALIC - Eye Exam Eye Exam: EOMI, Normal appearance - Neck Exam Neck Exam: Full ROM - Respiratory Exam Respiratory Exam: Clear to Ausculation Bilateral, NORMAL BREATHING PATTERN - Cardiovascular Exam Cardiovascular Exam: REGULAR RHYTHM, RRR - GI/Abdominal Exam GI & Abdominal Exam: Soft, Tenderness (Mild tenderness to deep palpation), Normal Bowel Sounds - Extremities Exam Extremities Exam: absent: Calf Tenderness, Pedal Edema - Neurological Exam Neurological Exam: Alert, Awake - Skin Skin Exam: Dry, Intact, Warm Assessment and Plan - Assessment and Plan (Free Text) Assessment: 28 year old female with a past medical history significant for uncontrolled HTN, uncontrolled IDDM1 with diabetic nephropathy and nephrotic syndrome, diabetic gastroparesis, pseudoseizures and ESRD on HD (MWF at [facility] [place]) who presented with intractable N/V. Plan: 1. Hypertensive Urgency -s/p 250mL bolus to counter any renin-mediated HTN in the setting of volume depletion -Continue Clonidine TD; Can continue PO Clonidine once patient is able to tolerate PO medications -Continue IV Labetalol PRN for SBP >180 2. ESRD on HD -s/p HD yesterday (07/05); Next scheduled HD tomorrow (07/07) -Relatively stable electrolyte and volume status -Will need to obtain a Duplex of AVF prior to discharge 3. Anemia of CKD -Relatively stable but below goal hemoglobin -Will avoid aranesp until better blood pressure control is established 4. Gastroparesis -Continue Reglan 5mg IVP 5. SIRS -Leukocytosis in setting of volume depletion -Continue IVF at 100mls/hr -Blood cultures negative for 24 hours Patient seen and case discussed with attending, Dr. Nieves. Darren Oneal PGY2 <Migue Nieves - Last Filed: 07/07/18 08:55> Objective - Vital Signs/Intake and Output Vital Signs (last 24 hours): Temp Pulse Resp BP Pulse Ox 99.3 F 103 H 20 142/95 H 97 07/07/18 07:30 07/07/18 07:30 07/07/18 07:30 07/07/18 07:30 07/07/18 07:30 Intake and Output: 07/07/18 07/07/18 06:59 18:59 Intake Total 2370 Balance 2370 - Medications Medications: Current Medications Clonidine HCl (Catapres-Tts2 0.2 Mg/24 Hr) 1 patch TD Q7D@1000 [facility] Last Admin: 07/06/18 14:38 Dose: 1 patch Dextrose (Dextrose 50% Inj) 0 ml IV STAT PRN; Protocol PRN Reason: Hypoglycemia Protocol Dextrose (Glutose 15) 0 gm PO ONCE PRN; Protocol PRN Reason: Hypoglycemia Protocol Glucagon (Glucagen Diagnostic Kit) 0 mg IM STAT PRN; Protocol PRN Reason: Hypoglycemia Protocol Hydromorphone HCl (Dilaudid) 0.5 mg IVP Q6H PRN PRN Reason: Pain, moderate (4-7) Last Admin: 07/07/18 07:53 Dose: 0.5 mg Dextrose (Dextrose 5% In Water 1000 Ml) 1,000 mls @ 0 mls/hr IV .Q0M PRN; Protocol PRN Reason: Hypoglycemia Protocol Pantoprazole Sodium 80 mg/ (Sodium Chloride) 100 mls @ 10 mls/hr IVPB .Q10H [facility] Last Admin: 07/07/18 06:06 Dose: 10 mls/hr Sodium Chloride (Sodium Chloride 0.45%) 1,000 mls @ 100 mls/hr IV .Q10H [facility] Last Admin: 07/07/18 08:02 Dose: 100 mls/hr Insulin Detemir (Levemir) 7 unit SC DAILY [facility] Last Admin: 07/06/18 10:39 Dose: Not Given Insulin Human Regular (Novolin R) 0 unit SC Q6H [facility]; Protocol Last Admin: 07/07/18 05:27 Dose: 10 unit Labetalol HCl (Trandate) 20 mg IVP Q4H PRN PRN Reason: Systolic Blood Pressure Last Admin: 07/07/18 00:38 Dose: 20 mg Lorazepam (Ativan) 1 mg IVP Q6H PRN PRN Reason: Anxiety Last Admin: 07/07/18 03:36 Dose: 1 mg Metoclopramide HCl (Reglan) 5 mg IVP Q6H [facility] Last Admin: 07/07/18 07:54 Dose: 5 mg Ondansetron HCl (Zofran Inj) 4 mg IVP Q6H [facility] Last Admin: 07/07/18 05:31 Dose: 4 mg Risperidone (Risperdal Tab) 1 mg PO BID [facility] Last Admin: 07/06/18 18:45 Dose: Not Given - Labs Labs: 07/05/18 14:22 07/05/18 14:22 Attending/Attestation - Attestation I have personally seen and examined this patient.: Yes I have fully participated in the care of the patient.: Yes I have reviewed all pertinent clinical information, including history, physical exam and plan: Yes Notes (Text): Patient seen and examined; I agree with the resident's note as above with the following additions/edit: Patient with htn, dm w/ gastroparesis, ESRD on HD, admitted with yet another gastroparesis flare; More calm today after having received dilaudid and ativan for pain and anxiety respectively; still frequent vomiting; started on liquid diet, advised to have small amounts of fluid only; BP still uncontrolled as is often seen during her gastroparesis flares; clonidine patch finally placed today, unclear when previous patch fell off; continue labetalol IV 20 mg q4h prn for SBP > 180; No labs available today; yesterday's labs showed hemoconcentration consistent with vomiting history; will keep on IVF w/ 1/2NS at 100 cc/hr; Next HD for tomorrow per routine;
--- NOTE | 2018-07-06 17:53 | CP.PCM.PN ---
Subjective - Date & Time of Evaluation Date of Evaluation: 07/06/18 Time of Evaluation: 17:50 - Subjective Subjective: DR KING SERVICE Pt in distress, inconsistent responsivity, crying for help, inconsolable, reports diffuse pains, MEDICAL RESEARCH TECH called x2, vitals stable, Objective - Vital Signs/Intake and Output Vital Signs (last 24 hours): Temp Pulse Resp BP Pulse Ox 98.3 F 106 H 18 175/105 H 100 07/06/18 16:02 07/06/18 16:02 07/06/18 16:02 07/06/18 16:02 07/06/18 16:02 Intake and Output: 07/06/18 07/06/18 06:59 18:59 Intake Total 165 Output Total 100 Balance 65 - Medications Medications: Current Medications Clonidine HCl (Catapres-Tts2 0.2 Mg/24 Hr) 1 patch TD Q7D@1000 K[facility]IN Clonidine HCl (Catapres-Tts2 0.2 Mg/24 Hr) 1 patch TD Q7D@1000 [facility] Last Admin: 07/06/18 14:38 Dose: 1 patch Dextrose (Dextrose 50% Inj) 0 ml IV STAT PRN; Protocol PRN Reason: Hypoglycemia Protocol Dextrose (Glutose 15) 0 gm PO ONCE PRN; Protocol PRN Reason: Hypoglycemia Protocol Glucagon (Glucagen Diagnostic Kit) 0 mg IM STAT PRN; Protocol PRN Reason: Hypoglycemia Protocol Dextrose (Dextrose 5% In Water 1000 Ml) 1,000 mls @ 0 mls/hr IV .Q0M PRN; Protocol PRN Reason: Hypoglycemia Protocol Pantoprazole Sodium 80 mg/ (Sodium Chloride) 100 mls @ 10 mls/hr IVPB .Q10H [facility] Last Admin: 07/06/18 11:04 Dose: Not Given Sodium Chloride (Sodium Chloride 0.45%) 1,000 mls @ 100 mls/hr IV .Q10H [facility] Last Admin: 07/06/18 13:25 Dose: 100 mls/hr Insulin Detemir (Levemir) 7 unit SC DAILY [facility] Last Admin: 07/06/18 10:39 Dose: Not Given Insulin Human Regular (Novolin R) 0 unit SC Q6H [facility]; Protocol Last Admin: 07/06/18 17:15 Dose: 4 unit Labetalol HCl (Trandate) 20 mg IVP Q4H PRN PRN Reason: Systolic Blood Pressure Last Admin: 07/06/18 08:17 Dose: 20 mg Lorazepam (Ativan) 1 mg IVP Q6H PRN PRN Reason: Anxiety Last Admin: 07/06/18 17:18 Dose: 1 mg Metoclopramide HCl (Reglan) 10 mg IVP Q6H [facility] Last Admin: 07/06/18 14:39 Dose: 10 mg Ondansetron HCl (Zofran Inj) 4 mg IVP Q6H [facility] Last Admin: 07/06/18 11:18 Dose: 4 mg Risperidone (Risperdal Tab) 1 mg PO BID [facility] Last Admin: 07/06/18 13:22 Dose: Not Given - Labs Labs: 07/05/18 14:22 07/05/18 14:22 - Additional Findings Additional findings: - Constitutional Appears: No Acute Distress, Unkempt, Agitated, appears older than stated age - Head Exam Head Exam: ATRAUMATIC, NORMOCEPHALIC - Eye Exam Eye Exam: EOMI, PERRL Pupil Exam: NORMAL ACCOMODATION - ENT Exam ENT Exam: Mucous Membranes Dry - Respiratory Exam Respiratory Exam: Rales, Wheezes, NORMAL BREATHING PATTERN - Cardiovascular Exam Cardiovascular Exam: REGULAR RHYTHM, +S1, +S2. absent: Systolic Murmur - GI/Abdominal Exam GI & Abdominal Exam: Normal Bowel Sounds, Soft. absent: Firm, Guarding, Tenderness - Extremities Exam Extremities exam: Negative for: calf tenderness Additional comments: bilateral pitting edema distal to knees - Back Exam Back exam: absent: CVA tenderness (L), CVA tenderness (R) - Neurological Exam Neurological exam: Abnormal Gait, Alert, CN II-XII Intact, Oriented x3, Reflexes Normal, blink reflexes intact, false seizure activity noted, hand flops away from face, eyes still blink, pupils accommodating, no self urination, no tongue biting - Psychiatric Exam Psychiatric exam: Anxious - Skin Skin Exam: Dry, Intact, Normal Color, Warm Assessment and Plan - Assessment and Plan (Free Text) Assessment: 28 year old female w/ pmhx of IDDM, diabetic gastroparesis, ESRD, anxiety and seizure history admitted Plan: Intractable vomiting, acute -likely 2/2 diabetic gastroparesis -coffee ground emesis -hgb 11.8, continue to monitor for acute blood loss -antiemetics, zofran/reglan q6 prn -Liquid Diet -IVF, NS @100/hr -hypertensive on admission at 212/114 [facility] -Ativan 1mg q6 prn -Dilaudid 0.5mg STAT -Risperdal 1mg PO BID -Thorazide 25 IM stat ESRD -HD MWF -Cr 7.8 on admission -Nephro consult, Dr. Nieves IDDM, chronic -hyperglycemic on admission, BG 392 -IVF, NS 250cc bolus; 100cc/hr -hold home medications -accuchecks q4h -ISS medium -levemir 7u qd -hypoglycemia protocol HTN, chronic -BP 212/114 on admission -continue home clonidine 0.2 TD Q7D -pt Liquid Diet, consider IV labetalol if needed Ppx GI: protonix ggt VTE: SCDs, AC contraindicated 2/2 suspected GI bleed Discussed w/ Dr. King
[2018-07-07] MEDS: HYDROmorphone 0.5 mg/0.5 ml ISec IVP PRN ×3 (00:37→18:26)
[2018-07-07] MEDS: Labetalol 5mg/ml (4ml) IVP PRN (00:38)
[2018-07-07] MEDS: (Novolin R) Insulin Human Regular 100 units/ml vial SC SCH ×5 (05:27→21:34)
[2018-07-07] MEDS: Pantoprazole 80 MG in Sodium Chloride 0.9% 100 ML IVPB SCH ×2 (06:06→18:34)
--- NOTE | 2018-07-07 07:11 | CP.PCM.PN ---
Subjective - Date & Time of Evaluation Date of Evaluation: 07/07/18 Time of Evaluation: 10:20 - Subjective Subjective: Patient examined at bedside with 1:1 in room. Reports no nausea or vomiting overnight, only spitting up saliva. She reports she did not sleep well due to racing thoughts. Discussion held with pt regarding events yesterday. She reports 1st episode of seizure like activity was due to feelings of hypoglycemia and/or hypotension. She does not recall having seizures. She reports the 2nd episode while walking in the halls was due to her feeling as though her legs were weak and gave out on her, causing her to fall to the ground. Pt reports she has been drinking liquid diet without issue, and that her epigastric pain is improved with fluid intake, she reports it is "soothing". Patient aware of plans to advance diet as tolerated. Patient aware of/and agrees with plans to stop ativan all together. She admits it is not good for her to have it. Denies further complaints of chest pain, SOB, diarrhea. Discussed with patient's sister and brother in law over the phone plan of care. They were very concerned that ativan had been ordered and given, as they report pt has an ongoing addiction and drug seeking behavior for ativan. I explained to them that although I was not present yesterday, ativan is given in cases of seizures/seizure like activity. Objective - Vital Signs/Intake and Output Vital Signs (last 24 hours): Temp Pulse Resp BP Pulse Ox 98.5 F 106 H 20 159/97 H 99 07/07/18 00:35 07/07/18 04:17 07/07/18 00:35 07/07/18 01:18 07/07/18 00:35 Intake and Output: 07/07/18 07/07/18 06:59 18:59 Intake Total 2370 Balance 2370 - Medications Medications: Current Medications Clonidine HCl (Catapres-Tts2 0.2 Mg/24 Hr) 1 patch TD Q7D@1000 [facility] Last Admin: 07/06/18 14:38 Dose: 1 patch Dextrose (Dextrose 50% Inj) 0 ml IV STAT PRN; Protocol PRN Reason: Hypoglycemia Protocol Dextrose (Glutose 15) 0 gm PO ONCE PRN; Protocol PRN Reason: Hypoglycemia Protocol Glucagon (Glucagen Diagnostic Kit) 0 mg IM STAT PRN; Protocol PRN Reason: Hypoglycemia Protocol Hydromorphone HCl (Dilaudid) 0.5 mg IVP Q6H PRN PRN Reason: Pain, moderate (4-7) Last Admin: 07/07/18 00:37 Dose: 0.5 mg Dextrose (Dextrose 5% In Water 1000 Ml) 1,000 mls @ 0 mls/hr IV .Q0M PRN; Protocol PRN Reason: Hypoglycemia Protocol Pantoprazole Sodium 80 mg/ (Sodium Chloride) 100 mls @ 10 mls/hr IVPB .Q10H [facility] Last Admin: 07/07/18 06:06 Dose: 10 mls/hr Sodium Chloride (Sodium Chloride 0.45%) 1,000 mls @ 100 mls/hr IV .Q10H [facility] Last Admin: 07/06/18 22:42 Dose: 100 mls/hr Insulin Detemir (Levemir) 7 unit SC DAILY [facility] Last Admin: 07/06/18 10:39 Dose: Not Given Insulin Human Regular (Novolin R) 0 unit SC Q6H [facility]; Protocol Last Admin: 07/07/18 05:27 Dose: 10 unit Labetalol HCl (Trandate) 20 mg IVP Q4H PRN PRN Reason: Systolic Blood Pressure Last Admin: 07/07/18 00:38 Dose: 20 mg Lorazepam (Ativan) 1 mg IVP Q6H PRN PRN Reason: Anxiety Last Admin: 07/07/18 03:36 Dose: 1 mg Metoclopramide HCl (Reglan) 5 mg IVP Q6H [facility] Ondansetron HCl (Zofran Inj) 4 mg IVP Q6H [facility] Last Admin: 07/07/18 05:31 Dose: 4 mg Risperidone (Risperdal Tab) 1 mg PO BID [facility] Last Admin: 07/06/18 18:45 Dose: Not Given - Labs Labs: 07/05/18 14:22 07/05/18 14:22 - Constitutional Appears: Non-toxic, No Acute Distress - Head Exam Head Exam: ATRAUMATIC, NORMAL INSPECTION, NORMOCEPHALIC - Eye Exam Eye Exam: EOMI, Normal appearance - ENT Exam ENT Exam: Mucous Membranes Moist, Normal Exam - Neck Exam Additional comments: right chest port a cath - Respiratory Exam Respiratory Exam: Clear to Ausculation Bilateral, NORMAL BREATHING PATTERN - Cardiovascular Exam Cardiovascular Exam: REGULAR RHYTHM. absent: Tachycardia - GI/Abdominal Exam GI & Abdominal Exam: Soft, Normal Bowel Sounds. absent: Distended, Tenderness - Extremities Exam Extremities Exam: Normal Inspection. absent: Calf Tenderness, Pedal Edema - Neurological Exam Neurological Exam: Alert, Awake, Oriented x3 - Psychiatric Exam Psychiatric exam: Normal Affect, Normal Mood - Skin Skin Exam: Dry, Intact, Normal Color, Warm Assessment and Plan - Assessment and Plan (Free Text) Assessment: 28 year old female w/ pmhx of IDDM, diabetic gastroparesis, ESRD, anxiety and seizure history admitted for exacerbation of diabetic gastroparesis. Plan: Intractable vomiting 2/2 diabetic gastroparesis -coffee ground emesis on admission -hgb 11.8, continue to monitor for acute blood loss -antiemetics/motility, zofran 4mg/reglan 5mg q6 prn -pain control, dilaudid 0.5mg ivp q6 prn -Liquid Diet, advance tonight if tolerating -IVF, 1/2NS @100/hr -hypertensive on admission at 212/114 Borderline personality disorder w/ drug seeking behavior -Ativan 1mg q6 prn d/c-ed 2/2 hx of dependence -Risperdal 1mg PO BID -Psych consult, Dr. New ESRD -HD MWF -Cr 7.8 on admission -Nephro consult, Dr. Nieves IDDM, chronic -hyperglycemic on admission, BG 392 -IVF, 1/2NS@100 -hold home insulin -accuchecks ACHS -ISS ACHS -levemir 7u qd -hypoglycemia protocol HTN, chronic -BP 212/114 on admission -continue home clonidine 0.2 TD Q7D -labetalol 20mg ivp q4 prn systolic>180 -pt Liquid Diet, consider IV labetalol if needed Ppx GI: protonix ggt VTE: SCDs, AC contraindicated 2/2 suspected GI bleed Colace TID Patient not to receive Ativan All diets must be diabetic Discussed w/ Dr. Christine Pinzon, PGY-1
[2018-07-07] MEDS: Sodium Chloride 0.45% 1,000 ML IV SCH ×3 (08:02→18:31)
--- NOTE | 2018-07-07 09:24 | CP.PCM.PN ---
<Hanane Presley - Last Filed: 07/07/18 20:10> Subjective - Date & Time of Evaluation Date of Evaluation: 07/07/18 Time of Evaluation: 09:17 - Subjective Subjective: Progress note for Dr. Nieves Patient was seen and examined at bedside in no acute distress. Patient reports feeling better today and complains of mild abdominal pain and mild nausea. Patient denies chest pain, palpitations, dyspnea, vomiting, fevers, headaches, leg pain, leg swelling. Objective - Vital Signs/Intake and Output Vital Signs (last 24 hours): Temp Pulse Resp BP Pulse Ox 99.3 F 103 H 20 142/95 H 97 07/07/18 07:30 07/07/18 07:30 07/07/18 07:30 07/07/18 07:30 07/07/18 07:30 Intake and Output: 07/07/18 07/07/18 06:59 18:59 Intake Total 2370 Balance 2370 - Medications Medications: Current Medications Clonidine HCl (Catapres-Tts2 0.2 Mg/24 Hr) 1 patch TD Q7D@1000 [facility] Last Admin: 07/06/18 14:38 Dose: 1 patch Dextrose (Dextrose 50% Inj) 0 ml IV STAT PRN; Protocol PRN Reason: Hypoglycemia Protocol Dextrose (Glutose 15) 0 gm PO ONCE PRN; Protocol PRN Reason: Hypoglycemia Protocol Glucagon (Glucagen Diagnostic Kit) 0 mg IM STAT PRN; Protocol PRN Reason: Hypoglycemia Protocol Hydromorphone HCl (Dilaudid) 0.5 mg IVP Q6H PRN PRN Reason: Pain, moderate (4-7) Last Admin: 07/07/18 07:53 Dose: 0.5 mg Dextrose (Dextrose 5% In Water 1000 Ml) 1,000 mls @ 0 mls/hr IV .Q0M PRN; Protocol PRN Reason: Hypoglycemia Protocol Pantoprazole Sodium 80 mg/ (Sodium Chloride) 100 mls @ 10 mls/hr IVPB .Q10H [facility] Last Admin: 07/07/18 06:06 Dose: 10 mls/hr Sodium Chloride (Sodium Chloride 0.45%) 1,000 mls @ 100 mls/hr IV .Q10H [facility] Last Admin: 07/07/18 08:02 Dose: 100 mls/hr Insulin Detemir (Levemir) 7 unit SC DAILY [facility] Last Admin: 07/06/18 10:39 Dose: Not Given Insulin Human Regular (Novolin R) 0 unit SC Q6H [facility]; Protocol Last Admin: 07/07/18 05:27 Dose: 10 unit Labetalol HCl (Trandate) 20 mg IVP Q4H PRN PRN Reason: Systolic Blood Pressure Last Admin: 07/07/18 00:38 Dose: 20 mg Lorazepam (Ativan) 1 mg IVP Q6H PRN PRN Reason: Anxiety Last Admin: 07/07/18 03:36 Dose: 1 mg Metoclopramide HCl (Reglan) 5 mg IVP Q6H [facility] Last Admin: 07/07/18 07:54 Dose: 5 mg Ondansetron HCl (Zofran Inj) 4 mg IVP Q6H [facility] Last Admin: 07/07/18 05:31 Dose: 4 mg Risperidone (Risperdal Tab) 1 mg PO BID [facility] Last Admin: 07/06/18 18:45 Dose: Not Given - Labs Labs: 07/05/18 14:22 07/05/18 14:22 - Constitutional Appears: No Acute Distress - Head Exam Head Exam: ATRAUMATIC - Eye Exam Eye Exam: EOMI, Normal appearance - ENT Exam ENT Exam: Mucous Membranes Moist - Respiratory Exam Respiratory Exam: Clear to Ausculation Bilateral, NORMAL BREATHING PATTERN. ab sent: Rales, Rhonchi, Wheezes - Cardiovascular Exam Cardiovascular Exam: REGULAR RHYTHM, +S1, +S2 - GI/Abdominal Exam GI & Abdominal Exam: Soft, Tenderness (Epigastric), Normal Bowel Sounds. absent: Distended - Extremities Exam Extremities Exam: absent: Normal Inspection, Pedal Edema, Tenderness - Neurological Exam Neurological Exam: Alert, Awake, Oriented x3 - Psychiatric Exam Psychiatric exam: Normal Affect, Normal Mood - Skin Skin Exam: Dry, Intact, Warm Assessment and Plan - Assessment and Plan (Free Text) Plan: 28 year old female with a past medical history significant for uncontrolled HTN, uncontrolled IDDM1 with diabetic nephropathy and nephrotic syndrome, diabetic gastroparesis, pseudoseizures and ESRD on HD (MWF at [facility] in [place]) who presented with intractable N/V. Hypertensive Urgency - s/p 250mL bolus to counter any renin-mediated HTN in the setting of volume depletion - Continue Clonidine TD patch; Can continue PO Clonidine once patient is able to tolerate PO medications - Continue IV Labetalol IV 20 mg q4h PRN for SBP > 180 ESRD on HD - Scheduled for HD today (07/07) - Duplex of AVF ordered: f/u Anemia of CKD - Relatively stable but below goal hemoglobin - Will avoid aranesp until better blood pressure control is established Gastroparesis - Continue Reglan 5mg IVP SIRS - Leukocytosis in setting of volume depletion - Continue IVF 1/2NS at 100 cc/hr - Blood cultures negative to date Patient seen and case discussed with Dr. Nieves. Hanane Allen, PGY2 <Migue Nieves - Last Filed: 07/08/18 08:33> Objective - Vital Signs/Intake and Output Vital Signs (last 24 hours): Temp Pulse Resp BP Pulse Ox 98.6 F 103 H 20 162/98 H 98 07/08/18 07:30 07/08/18 07:30 07/08/18 07:30 07/08/18 07:30 07/08/18 07:30 - Medications Medications: Current Medications Clonidine HCl (Catapres-Tts2 0.2 Mg/24 Hr) 1 patch TD Q7D@1000 [facility] Last Admin: 07/06/18 14:38 Dose: 1 patch Dextrose (Dextrose 50% Inj) 0 ml IV STAT PRN; Protocol PRN Reason: Hypoglycemia Protocol Dextrose (Glutose 15) 0 gm PO ONCE PRN; Protocol PRN Reason: Hypoglycemia Protocol Docusate Sodium (Colace) 100 mg PO TID [facility] Last Admin: 07/07/18 18:40 Dose: Not Given Glucagon (Glucagen Diagnostic Kit) 0 mg IM STAT PRN; Protocol PRN Reason: Hypoglycemia Protocol Hydromorphone HCl (Dilaudid) 0.5 mg IVP Q6H PRN PRN Reason: Pain, moderate (4-7) Last Admin: 07/08/18 02:15 Dose: 0.5 mg Dextrose (Dextrose 5% In Water 1000 Ml) 1,000 mls @ 0 mls/hr IV .Q0M PRN; Protocol PRN Reason: Hypoglycemia Protocol Sodium Chloride (Sodium Chloride 0.45%) 1,000 mls @ 50 mls/hr IV .Q20H [facility] Last Admin: 07/08/18 04:00 Dose: 50 mls/hr Insulin Detemir (Levemir) 7 unit SC DAILY [facility] Last Admin: 07/07/18 09:47 Dose: 7 unit Insulin Human Regular (Novolin R) 0 unit SC ACHS [facility]; Protocol Last Admin: 07/08/18 07:41 Dose: 10 units Labetalol HCl (Trandate) 20 mg IVP Q4H PRN PRN Reason: Systolic Blood Pressure Last Admin: 07/08/18 05:56 Dose: 20 mg Metoclopramide HCl (Reglan) 5 mg IVP Q6H [facility] Last Admin: 07/08/18 06:08 Dose: 5 mg Ondansetron HCl (Zofran Inj) 4 mg IVP Q6H [facility] Last Admin: 07/08/18 05:59 Dose: 4 mg Pantoprazole Sodium (Protonix Inj) 40 mg IVP DAILY [facility] Risperidone (Risperdal Tab) 1 mg PO BID [facility] Last Admin: 07/07/18 18:26 Dose: Not Given - Labs Labs: 07/07/18 14:40 07/07/18 14:40 Attending/Attestation - Attestation I have personally seen and examined this patient.: Yes I have fully participated in the care of the patient.: Yes I have reviewed all pertinent clinical information, including history, physical exam and plan: Yes Notes (Text): Patient seen and examined; I agree with the resident's note as above with the following additions/edits: 28 yo F w/ dm w/ severe gastroparesis, htn, ESRD on HD, admitted with gastroparesis flare; Still with vomiting today; on liquid diet; Labs at start of HD today showing hemoconcentration resolving; mild hypokalemia in the setting of vomiting; acidosis resolved; dialyzing today mainly for clearance, no UF despite high BP since vomiting persists; -decreasing IVF to 1/2 NS at 50 cc/hr for maintenance; -continue IV labetalol 20 mg q4h prn for SBP > 180; -awaiting duplex of AVF; -not dosing EPO for now (hgb at goal, though still may be somewhat hemoconcentrated);
[2018-07-07] MEDS: Insulin Detemir 100 units/ml Vial (Levemir) SC SCH (09:47)
--- NOTE | 2018-07-07 10:58 | PCM.PSYCH ---
Initial Psychiatric Evaluation - Initial Psychiatric Evaluation Type of Admission: Voluntary Legal Status: Capacity Chief Complaint (in patient's own words): I am feeling anxious.' History of Present Illness and Precipitating Events: This is a 27 year old female with a PMHx of DM, HTN, gastroparesis, seizure disorder (pseudoseizure), anxiety, depression, and CKD. She presented to the ED with intractable vomiting. Patient was consulted for psychiatric evaluation. Internet Technology Manager is familiar with this patient. Patient has presented to the [facility] multiple times with same complaints in the past. Patient has a long history of Munchausen syndrome. However she does not have any history of any inpatient psychiatric hospitalizations and she does not have any history of follow-up with any psychiatrist. During her past visits, she has been found drinking high calorie juices, and inducing vomiting by putting her fingers in her mouth. Patient appeared calm and comfortable throughout the interview. She stated that her abdominal pain and vomiting had improved. Patient confirmed trouble sleeping and reduced appetite. Patient reports depressed mood and feeling anxious, but denies suicidal or homicidal ideations, auditory or visual hallucinations, or paranoia. PsychHx: anxiety, depression FamHx: denies MedHx: DM, HTN, ESRD on dialysis, pseudo-seizures, bronchitis, HTN, anemia Allergies: denies Meds: pantoprazole, ondansetron, carvedilol, calcitriol, insulin Current Medications: Active Medications Generic Name Dose Route Start Last Admin Trade Name Freq PRN Reason Stop Dose Admin Clonidine HCl 1 patch 07/06/18 14:00 07/06/18 14:38 Catapres-Tts2 0.2 Mg/24 Hr TD 1 patch Q7D@1000 [facility] Administration Dextrose 0 ml 07/05/18 13:48 Dextrose 50% Inj IV STAT PRN Hypoglycemia Protocol Protocol Dextrose 0 gm 07/05/18 13:48 Glutose 15 PO ONCE PRN Hypoglycemia Protocol Protocol Glucagon 0 mg 07/05/18 13:48 Glucagen Diagnostic Kit IM STAT PRN Hypoglycemia Protocol Protocol Hydromorphone HCl 0.5 mg 07/06/18 19:38 07/07/18 07:53 Dilaudid IVP 0.5 mg Q6H PRN Administration Pain, moderate (4-7) Dextrose 1,000 mls @ 0 mls/hr 07/05/18 13:48 Dextrose 5% In Water 1000 Ml IV .Q0M PRN Hypoglycemia Protocol Protocol Per Protocol Pantoprazole Sodium 80 mg/ 100 mls @ 10 mls/hr 07/05/18 14:30 07/07/18 06:06 Sodium Chloride IVPB 10 mls/hr .Q10H [facility] Administration 8 MG/HR Sodium Chloride 1,000 mls @ 100 mls/hr 07/06/18 13:15 07/07/18 09:37 Sodium Chloride 0.45% IV Not Given .Q10H [facility] Insulin Detemir 7 unit 07/05/18 15:30 07/07/18 09:47 Levemir SC 7 unit DAILY [facility] Administration Insulin Human Regular 0 unit 07/07/18 09:44 Novolin R SC ACHS [facility] Protocol Labetalol HCl 20 mg 07/05/18 19:15 07/07/18 00:38 Trandate IVP 20 mg Q4H PRN Administration Systolic Blood Pressure Lorazepam 1 mg 07/06/18 11:00 07/07/18 10:10 Ativan IVP 1 mg Q6H PRN Administration Anxiety Metoclopramide HCl 5 mg 07/07/18 06:46 07/07/18 07:54 Reglan IVP 5 mg Q6H [facility] Administration Ondansetron HCl 4 mg 07/05/18 17:30 07/07/18 05:31 Zofran Inj IVP 4 mg Q6H [facility] Administration Risperidone 1 mg 07/06/18 11:00 07/07/18 09:47 Risperdal Tab PO 1 mg BID [facility] Administration Past Psychiatric History - Past Psychiatric History Previous Treatment History: None Pertinent Medical Hx (Current Medical&Sleep Prob, Allergies): Allergies Allergy/AdvReac Type Severity Reaction Status Date / Time No Known Allergies Allergy Verified 07/05/18 12:16 Pantoprazole [Protonix EC Tab] 40 mg PO DAILY #30 ect 03/08/18 Calcitriol [Rocaltrol] 0.25 mcg PO MWF #6 sgl 05/11/18 Ondansetron ODT [Zofran ODT] 4 mg PO Q6 PRN #16 odt 06/02/18 Carvedilol [Coreg] 6.25 mg PO Q12 #60 tab 06/11/18 Insulin Detemir [Levemir] 15 units SC DAILY 06/20/18 Home Med 7 unit SC QID 07/05/18 Metoclopramide HCl [Reglan] 10 mg PO QID 07/05/18 cloNIDine 0.2 mg/24 hr [catapres-TTS2 0.2 mg/24 hr] 1 patch TD QWK 07/05/18 Review of Systems - Review of Systems All systems: reviewed and no additional remarkable complaints except - Psychiatric Psychiatric: Anxiety, Irritability. absent: Suicidal Ideation Mental Status Examination - Personal Presentation Personal Presentation: Looks stated age - Affect Affect: Constricted, Depressed - Motor Activity Motor Activity: Calm - Reliability in Providing Information Reliability in Providing Information: Fair - Speech Speech: Organized - Mood Mood: Depressed, Anxious - Formal Thought Process Formal Thought Process: No Impairment - Obsessions/Compulsions Obsessions: No Compulsions: No - Cognitive Functions Orientation: Person, Place, Situation, Time Sensorium: Alert Attention/Concentration: Attentive Abstract Thinking: [place] Estimate of Intelligence: Below average Judgement: Imparied, as evidence by: Poor judgement, Imparied, as evidence by: Lack of insight into illness - Risk Risk: Diminished functioning - Strength & Assets Inventory Strength & Assets Inventory: Family support DSM 5 DX - DSM 5 DSM 5 Diagnosis: Munchhausen syndrome - Recommended/Plan of Treatment Treatment Recommendations and Plan of Treatment: Supportive therapy Hydroxyzine for anxiety Paxil for depression Risperdal for impulsive behavior Patient psychiatrically stable and cleared
[2018-07-07 14:49] LABS: BASO # 0.1 K/uL (0.0-0.2); BASO % 1.4 % (0.0-2.0); EOS % 0.3 % (0.0-4.0); HEMOGLOBIN 10.7 g/dL (11.0-16.0); LYMPH # 1.7 K/uL (1.0-4.3); LYMPH % 22.1 % (20.0-40.0); MEAN CORPUSCULAR HEMOGLOBIN 27.3 pg (27.0-31.0); MEAN CORPUSCULAR HGB CONC 31.5 g/dL (33.0-37.0); MEAN PLATELET VOLUME 9.1 fL (7.2-11.7); MONO # 0.8 K/uL (0.0-0.8); MONO % 9.9 % (0.0-10.0); NEUT # 5.1 K/uL (1.8-7.0); NEUT % 66.3 % (50.0-75.0); NRBC % 0.4 % (0.0-2.0); RBC 3.91 Mil/uL (3.80-5.20); RED CELL DISTRIBUTION WIDTH 16.4 % (11.5-14.5)
[2018-07-07 14:50] LABS: MEAN CELL VOLUME 86.6 fL (81.0-99.0); WHITE BLOOD COUNT 7.8 K/uL (4.8-10.8)
[2018-07-07 15:16] LABS: ALB/GLOB RATIO 1.3 (1.0-2.1); ALBUMIN 3.2 g/dL (3.5-5.0); CALCIUM 8.5 mg/dl (8.6-10.4)
--- NOTE | 2018-07-07 19:01 | CARD ---
APPROVED REPORT Date of service: 07/06/2018 EKG Measurement Heart [id number] <Conclusion> Sinus tachcyardia Otherwise normal ECG
[2018-07-08] MEDS: HYDROmorphone 0.5 mg/0.5 ml ISec IVP PRN ×2 (02:15→08:41)
[2018-07-08] MEDS: Pantoprazole 80 MG in Sodium Chloride 0.9% 100 ML IVPB SCH ×2 (02:30→06:00)
[2018-07-08] MEDS: Sodium Chloride 0.45% 1,000 ML IV SCH ×2 (04:00→12:57)
[2018-07-08] MEDS: Labetalol 5mg/ml (4ml) IVP PRN (05:56)
--- NOTE | 2018-07-08 06:56 | CP.PCM.PN ---
Subjective - Date & Time of Evaluation Date of Evaluation: 07/08/18 Time of Evaluation: 07:00 - Subjective Subjective: Patient examined at bedside with 1:1 in room. Patient reports she was unable to sleep well overnight 2/2 anxiety and severe epigastric pain. Pt did not attempt to eat purred diet 2/2 pain. Pt reports her sugars were very high. When questioned, she stated that the overnight nurse brought her several cranberry juices; confirmed by nurse who said she did because she was asking for it and crying. Reminded nurse not to give juice as pt is diabetic and as a result, her sugars are >500. Pt reports worsening anxiety regarding her illnesses and pain, causing her to hyperventilate and become SOB. Pt instructed to remain calm, and encouraged to attempt breakfast. Denies chest pain, diarrhea. Objective - Vital Signs/Intake and Output Vital Signs (last 24 hours): Temp Pulse Resp BP Pulse Ox 98.5 F 106 H 20 200/99 H 96 07/08/18 05:40 07/08/18 05:40 07/08/18 05:40 07/08/18 05:40 07/08/18 05:40 - Medications Medications: Current Medications Clonidine HCl (Catapres-Tts2 0.2 Mg/24 Hr) 1 patch TD Q7D@1000 [facility] Last Admin: 07/06/18 14:38 Dose: 1 patch Dextrose (Dextrose 50% Inj) 0 ml IV STAT PRN; Protocol PRN Reason: Hypoglycemia Protocol Dextrose (Glutose 15) 0 gm PO ONCE PRN; Protocol PRN Reason: Hypoglycemia Protocol Docusate Sodium (Colace) 100 mg PO TID [facility] Last Admin: 07/07/18 18:40 Dose: Not Given Glucagon (Glucagen Diagnostic Kit) 0 mg IM STAT PRN; Protocol PRN Reason: Hypoglycemia Protocol Hydromorphone HCl (Dilaudid) 0.5 mg IVP Q6H PRN PRN Reason: Pain, moderate (4-7) Last Admin: 07/08/18 02:15 Dose: 0.5 mg Dextrose (Dextrose 5% In Water 1000 Ml) 1,000 mls @ 0 mls/hr IV .Q0M PRN; Protocol PRN Reason: Hypoglycemia Protocol Pantoprazole Sodium 80 mg/ (Sodium Chloride) 100 mls @ 10 mls/hr IVPB .Q10H [facility] Last Admin: 07/08/18 06:00 Dose: 10 mls/hr Sodium Chloride (Sodium Chloride 0.45%) 1,000 mls @ 50 mls/hr IV .Q20H [facility] Last Admin: 07/08/18 04:00 Dose: 50 mls/hr Insulin Detemir (Levemir) 7 unit SC DAILY [facility] Last Admin: 07/07/18 09:47 Dose: 7 unit Insulin Human Regular (Novolin R) 0 unit SC ACHS [facility]; Protocol Last Admin: 07/07/18 21:34 Dose: Not Given Labetalol HCl (Trandate) 20 mg IVP Q4H PRN PRN Reason: Systolic Blood Pressure Last Admin: 07/08/18 05:56 Dose: 20 mg Metoclopramide HCl (Reglan) 5 mg IVP Q6H [facility] Last Admin: 07/08/18 06:08 Dose: 5 mg Ondansetron HCl (Zofran Inj) 4 mg IVP Q6H [facility] Last Admin: 07/08/18 05:59 Dose: 4 mg Risperidone (Risperdal Tab) 1 mg PO BID [facility] Last Admin: 07/07/18 18:26 Dose: Not Given - Labs Labs: 07/07/18 14:40 07/07/18 14:40 - Constitutional Appears: Non-toxic, Agitated - Head Exam Head Exam: ATRAUMATIC, NORMAL INSPECTION, NORMOCEPHALIC - Eye Exam Eye Exam: EOMI, Normal appearance - ENT Exam ENT Exam: Mucous Membranes Moist, Normal Exam - Neck Exam Neck Exam: Normal Inspection Additional comments: right chest port a cath - Respiratory Exam Respiratory Exam: Clear to Ausculation Bilateral. absent: Respiratory Distress, NORMAL BREATHING PATTERN (tachypneic ) - Cardiovascular Exam Cardiovascular Exam: Tachycardia, REGULAR RHYTHM, +S1, +S2 - GI/Abdominal Exam GI & Abdominal Exam: Soft, Tenderness (epigastric). absent: Distended, Guarding - Extremities Exam Extremities Exam: Normal Inspection. absent: Calf Tenderness, Pedal Edema - Neurological Exam Neurological Exam: Alert, Awake, Oriented x3 - Psychiatric Exam Psychiatric exam: Anxious, Depressed - Skin Skin Exam: Dry, Intact, Normal Color, Warm Assessment and Plan - Assessment and Plan (Free Text) Assessment: 28 year old female w/ pmhx of IDDM, diabetic gastroparesis, ESRD, anxiety and seizure history admitted for exacerbation of diabetic gastroparesis. Plan: Intractable vomiting 2/2 diabetic gastroparesis -coffee ground emesis on admission -hgb 10.7, continue to monitor for acute blood loss -antiemetics/motility, zofran 4mg/reglan 5mg q6 prn -pain control, dilaudid 0.5mg ivp q4 prn; frequency increased 2/2 pt's complaints of pain -Pureed diet, ADAT -IVF, 1/2NS @50/hr Borderline personality disorder w/ drug seeking behavior -Ativan 1mg q6 prn d/c-ed 2/2 hx of dependence -Risperdal 1mg PO BID -Psych consult, Dr. New ESRD -HD MWF -Cr 6.6 -Nephro consult, Dr. Nieves IDDM, chronic -IVF, 1/2NS@50 -hold home insulin -accuchecks ACHS -ISS ACHS -levemir 7u qd -hypoglycemia protocol -pureed diabetic, low carb diet HTN, chronic -BP 212/114 on admission -continue home clonidine 0.2 TD Q7D -labetalol 20mg ivp q4 prn systolic>180 Ppx GI: protonix 40mg ivp qd VTE: SCDs, AC contraindicated 2/2 suspected GI bleed Colace TID Patient not to receive Ativan All diets must be diabetic Discussed w/ Dr. Christine Pinzon, PGY-1
[2018-07-08] MEDS: (Novolin R) Insulin Human Regular 100 units/ml vial SC SCH ×4 (07:41→22:23)
--- NOTE | 2018-07-08 09:11 | CP.PCM.PN ---
Subjective - Date & Time of Evaluation Date of Evaluation: 07/08/18 Time of Evaluation: 09:09 - Subjective Subjective: Progress note for Dr. Nieves Patient was seen and examined at bedside in no acute distress. Patient states she tolerated her liquid diet this morning. She says her abdominal pain and nausea has improved since yesterday. She currently denies chest pain, palpitations, dyspnea, fevers, headaches, leg pain, leg swelling. Objective - Vital Signs/Intake and Output Vital Signs (last 24 hours): Temp Pulse Resp BP Pulse Ox 98.6 F 103 H 20 162/98 H 98 07/08/18 07:30 07/08/18 07:30 07/08/18 07:30 07/08/18 07:30 07/08/18 07:30 - Medications Medications: Current Medications Clonidine HCl (Catapres-Tts2 0.2 Mg/24 Hr) 1 patch TD Q7D@1000 [facility] Last Admin: 07/06/18 14:38 Dose: 1 patch Dextrose (Dextrose 50% Inj) 0 ml IV STAT PRN; Protocol PRN Reason: Hypoglycemia Protocol Dextrose (Glutose 15) 0 gm PO ONCE PRN; Protocol PRN Reason: Hypoglycemia Protocol Docusate Sodium (Colace) 100 mg PO TID [facility] Last Admin: 07/07/18 18:40 Dose: Not Given Glucagon (Glucagen Diagnostic Kit) 0 mg IM STAT PRN; Protocol PRN Reason: Hypoglycemia Protocol Hydromorphone HCl (Dilaudid) 0.5 mg IVP Q6H PRN PRN Reason: Pain, moderate (4-7) Last Admin: 07/08/18 08:41 Dose: 0.5 mg Dextrose (Dextrose 5% In Water 1000 Ml) 1,000 mls @ 0 mls/hr IV .Q0M PRN; Protocol PRN Reason: Hypoglycemia Protocol Sodium Chloride (Sodium Chloride 0.45%) 1,000 mls @ 50 mls/hr IV .Q20H [facility] Last Admin: 07/08/18 04:00 Dose: 50 mls/hr Insulin Detemir (Levemir) 7 unit SC DAILY [facility] Last Admin: 07/07/18 09:47 Dose: 7 unit Insulin Human Regular (Novolin R) 0 unit SC ACHS [facility]; Protocol Last Admin: 07/08/18 07:41 Dose: 10 units Labetalol HCl (Trandate) 20 mg IVP Q4H PRN PRN Reason: Systolic Blood Pressure Last Admin: 07/08/18 05:56 Dose: 20 mg Metoclopramide HCl (Reglan) 5 mg IVP Q6H [facility] Last Admin: 07/08/18 06:08 Dose: 5 mg Ondansetron HCl (Zofran Inj) 4 mg IVP Q6H [facility] Last Admin: 07/08/18 05:59 Dose: 4 mg Pantoprazole Sodium (Protonix Inj) 40 mg IVP DAILY [facility] Risperidone (Risperdal Tab) 1 mg PO BID [facility] Last Admin: 07/07/18 18:26 Dose: Not Given - Labs Labs: 07/07/18 14:40 07/07/18 14:40 - Additional Findings Additional findings: - Constitutional Appears: No Acute Distress - Head Exam Head Exam: ATRAUMATIC - Eye Exam Eye Exam: EOMI, Normal appearance - ENT Exam ENT Exam: Mucous Membranes Moist - Respiratory Exam Respiratory Exam: Clear to Ausculation Bilateral, NORMAL BREATHING PATTERN. absent: Rales, Rhonchi, Wheezes - Cardiovascular Exam Cardiovascular Exam: REGULAR RHYTHM, +S1, +S2 - GI/Abdominal Exam GI & Abdominal Exam: Soft, Tenderness (Epigastric), Normal Bowel Sounds. absent: Distended - Extremities Exam Extremities Exam: + thrill palpated, +bruit in LUE AVF. absent: Normal Inspection, Pedal Edema, Tenderness - Neurological Exam Neurological Exam: Alert, Awake, Oriented x3 - Psychiatric Exam Psychiatric exam: Normal Affect, Normal Mood - Skin Skin Exam: Dry, Intact, Warm Assessment and Plan - Assessment and Plan (Free Text) Plan: 28 year old female with a past medical history significant for uncontrolled HTN, uncontrolled IDDM1 with diabetic nephropathy and nephrotic syndrome, diabetic gastroparesis, pseudoseizures and ESRD on HD (MWF at [facility] in [place]) who presented with intractable N/V. Hypertensive Urgency - s/p 250mL bolus to counter any renin-mediated HTN in the setting of volume depletion - Continue Clonidine TD patch; Can continue PO Clonidine once patient is able to tolerate PO medications - Continue IV Labetalol IV 20 mg q4h PRN for SBP > 180 ESRD on HD - S/p for HD (07/07) - Duplex of AVF ordered: f/u Anemia of CKD - Stable - Will hold EPO Gastroparesis - Continue Reglan 5mg IVP SIRS - Leukocytosis in setting of volume depletion - Discontinue IVF 1/2NS at 50 cc/hr - Blood cultures negative to date Patient seen and case discussed with Dr. Nieves. Hanane Allen, PGY2
[2018-07-08] MEDS: Insulin Detemir 100 units/ml Vial (Levemir) SC SCH (10:00)
[2018-07-08] MEDS ORDERED: HYDROmorphone 0.5 mg/0.5 ml ISec IVP PRN (10:49)
[2018-07-08] MEDS ORDERED: Oxycodone/Acetaminophen 5/325 mg Tab PO PRN (22:19)
[2018-07-08 23:25] VITALS: O2SAT 97
[2018-07-09] MEDS: (Novolin R) Insulin Human Regular 100 units/ml vial SC SCH ×3 (07:04→17:04)
--- NOTE | 2018-07-09 08:53 | CP.PCM.PN ---
Subjective - Date & Time of Evaluation Date of Evaluation: 07/09/18 Time of Evaluation: 08:50 - Subjective Subjective: Progress note for Dr. Nieves Patient was seen and examined at bedside in no acute distress. Patient denies nausea, vomiting, fever, abdominal pain, chest pain, palpitations, dyspnea. She states she is hungry and requesting more food. She has been tolerating a pureed diet. Objective - Vital Signs/Intake and Output Vital Signs (last 24 hours): Temp Pulse Resp BP Pulse Ox 98.0 F 80 20 169/72 H 97 07/09/18 07:35 07/09/18 08:23 07/09/18 07:35 07/09/18 07:35 07/09/18 07:35 - Medications Medications: Current Medications Clonidine HCl (Catapres-Tts2 0.2 Mg/24 Hr) 1 patch TD Q7D@1000 [facility] Last Admin: 07/06/18 14:38 Dose: 1 patch Dextrose (Dextrose 50% Inj) 0 ml IV STAT PRN; Protocol PRN Reason: Hypoglycemia Protocol Dextrose (Glutose 15) 0 gm PO ONCE PRN; Protocol PRN Reason: Hypoglycemia Protocol Docusate Sodium (Colace) 100 mg PO TID [facility] Last Admin: 07/08/18 17:18 Dose: 100 mg Glucagon (Glucagen Diagnostic Kit) 0 mg IM STAT PRN; Protocol PRN Reason: Hypoglycemia Protocol Hydromorphone HCl (Dilaudid) 0.5 mg IVP Q4H PRN PRN Reason: Pain, moderate (4-7) Hydroxyzine HCl (Atarax) 25 mg PO Q6 PRN PRN Reason: Agitation Last Admin: 07/08/18 23:03 Dose: 25 mg Dextrose (Dextrose 5% In Water 1000 Ml) 1,000 mls @ 0 mls/hr IV .Q0M PRN; Protocol PRN Reason: Hypoglycemia Protocol Sodium Chloride (Sodium Chloride 0.45%) 1,000 mls @ 50 mls/hr IV .Q20H [facility] Last Admin: 07/08/18 12:57 Dose: Not Given Insulin Detemir (Levemir) 7 unit SC DAILY [facility] Last Admin: 07/08/18 10:00 Dose: 7 unit Insulin Human Regular (Novolin R) 0 unit SC ACHS [facility]; Protocol Last Admin: 07/09/18 07:04 Dose: 10 units Labetalol HCl (Trandate) 20 mg IVP Q4H PRN PRN Reason: Systolic Blood Pressure Last Admin: 07/08/18 05:56 Dose: 20 mg Metoclopramide HCl (Reglan) 5 mg IVP Q6H [facility] Last Admin: 07/09/18 06:15 Dose: Not Given Ondansetron HCl (Zofran Inj) 4 mg IVP Q6H [facility] Last Admin: 07/08/18 17:41 Dose: Not Given Ondansetron HCl (Zofran Odt) 4 mg PO Q4H PRN PRN Reason: Nausea/Vomiting Last Admin: 07/08/18 22:48 Dose: 4 mg Oxycodone/Acetaminophen (Percocet 5/325 Mg Tab) 2 tab PO Q4H PRN PRN Reason: Pain, severe (8-10) Stop: 07/11/18 22:20 Last Admin: 07/08/18 22:47 Dose: 2 tab Pantoprazole Sodium (Protonix Inj) 40 mg IVP DAILY [facility] Last Admin: 07/08/18 10:59 Dose: 40 mg Paroxetine HCl (Paxil) 10 mg PO DAILY [facility] Risperidone (Risperdal Tab) 1 mg PO BID [facility] Last Admin: 07/08/18 17:18 Dose: 1 mg - Labs Labs: 07/07/18 14:40 07/07/18 14:40 - Additional Findings Additional findings: - Constitutional Appears: No Acute Distress - Head Exam Head Exam: ATRAUMATIC - Eye Exam Eye Exam: EOMI, Normal appearance - ENT Exam ENT Exam: Mucous Membranes Moist - Respiratory Exam Respiratory Exam: Clear to Ausculation Bilateral, NORMAL BREATHING PATTERN. absent: Rales, Rhonchi, Wheezes - Cardiovascular Exam Cardiovascular Exam: REGULAR RHYTHM, +S1, +S2 - GI/Abdominal Exam GI & Abdominal Exam: Soft, Tenderness (Epigastric), Normal Bowel Sounds. absent: Distended - Extremities Exam Extremities Exam: + thrill palpated, +bruit in LUE AVF. absent: Normal Inspection, Pedal Edema, Tenderness - Neurological Exam Neurological Exam: Alert, Awake, Oriented x3 - Psychiatric Exam Psychiatric exam: Normal Affect, Normal Mood - Skin Skin Exam: Dry, Intact, Warm Assessment and Plan - Assessment and Plan (Free Text) Plan: 28 year old female with a past medical history significant for uncontrolled HTN, uncontrolled IDDM1 with diabetic nephropathy and nephrotic syndrome, diabetic gastroparesis, pseudoseizures and ESRD on HD (MWF at [facility] in [place]) who pres ented with intractable N/V. Hypertensive Urgency - Continue Clonidine TD patch; Can continue PO Clonidine once patient is able to tolerate PO medications - Continue IV Labetalol IV 20 mg q4h PRN for SBP > 180 - Restarted home medication: Coreg 6.25mg PO BID ESRD on HD - Scheduled for HD (07/09) - Duplex of AVF ordered: f/u Anemia of CKD - Stable - Gave one dose of EPO 5,000units Gastroparesis - Continue Reglan 5mg IVP Q6h, Zofran 4mg PO Q4prn - Pain management per primary team SIRS - Resolved - Leukocytosis likely in setting of volume depletion - Discontinued IVF 1/2NS at 50 cc/hr - Blood/urine cultures negative to date Patient seen and case discussed with Dr. Nieves. Hanane Allen, PGY2
[2018-07-09] MEDS: Insulin Detemir 100 units/ml Vial (Levemir) SC SCH (09:44)
[2018-07-09 10:10] LABS: HEMOGLOBIN 10.4 g/dL (11.0-16.0); MEAN CELL VOLUME 86.4 fL (81.0-99.0); MEAN CORPUSCULAR HEMOGLOBIN 27.1 pg (27.0-31.0); MEAN CORPUSCULAR HGB CONC 31.3 g/dL (33.0-37.0); MEAN PLATELET VOLUME 8.7 fL (7.2-11.7); PLATELET COUNT 263 K/uL (130-400); RBC 3.83 Mil/uL (3.80-5.20); RED CELL DISTRIBUTION WIDTH 16.3 % (11.5-14.5); WHITE BLOOD COUNT 5.7 K/uL (4.8-10.8)
[2018-07-09 10:20] LABS: ALB/GLOB RATIO 1.5 (1.0-2.1); ALBUMIN 3.1 g/dL (3.5-5.0); CALCIUM 6.9 mg/dl (8.6-10.4)
[2018-07-09 11:06] VITALS: RESP 16; TEMP 98
--- NOTE | 2018-07-09 11:37 | CP.PCM.PN ---
Subjective - Date & Time of Evaluation Date of Evaluation: 07/09/18 Time of Evaluation: 09:00 - Subjective Subjective: Patient examined at bedside, undergoing HD. Per reports, pt peripheral IV infiltrated and was removed; unable to establish new line at the time. Pt reports improvement in overall well being; reports pain is controlled w/ PO medication. Pt reports good appetite and tolerated pureed diet yesterday without issue. Denies chest pain, SOB, abdominal pain, nausea. Pt does report some left knee pain 2/2 fall several days ago for which [employer] called. Objective - Vital Signs/Intake and Output Vital Signs (last 24 hours): Temp Pulse Resp BP Pulse Ox 98 F 77 16 156/99 H 97 07/09/18 09:05 07/09/18 11:30 07/09/18 09:05 07/09/18 11:30 07/09/18 07:35 - Medications Medications: Current Medications Clonidine HCl (Catapres-Tts2 0.2 Mg/24 Hr) 1 patch TD Q7D@1000 [facility] Last Admin: 07/06/18 14:38 Dose: 1 patch Dextrose (Dextrose 50% Inj) 0 ml IV STAT PRN; Protocol PRN Reason: Hypoglycemia Protocol Dextrose (Glutose 15) 0 gm PO ONCE PRN; Protocol PRN Reason: Hypoglycemia Protocol Docusate Sodium (Colace) 100 mg PO TID [facility] Last Admin: 07/09/18 09:44 Dose: Not Given Glucagon (Glucagen Diagnostic Kit) 0 mg IM STAT PRN; Protocol PRN Reason: Hypoglycemia Protocol Hydromorphone HCl (Dilaudid) 0.5 mg IVP Q4H PRN PRN Reason: Pain, moderate (4-7) Hydroxyzine HCl (Atarax) 25 mg PO Q6 PRN PRN Reason: Agitation Last Admin: 07/08/18 23:03 Dose: 25 mg Dextrose (Dextrose 5% In Water 1000 Ml) 1,000 mls @ 0 mls/hr IV .Q0M PRN; Protocol PRN Reason: Hypoglycemia Protocol Insulin Detemir (Levemir) 15 unit SC HS [facility] Insulin Human Regular (Novolin R) 0 unit SC ACHS [facility]; Protocol Last Admin: 07/09/18 07:04 Dose: 10 units Labetalol HCl (Trandate) 20 mg IVP Q4H PRN PRN Reason: Systolic Blood Pressure Last Admin: 07/08/18 05:56 Dose: 20 mg Metoclopramide HCl (Reglan) 5 mg IVP Q6H [facility] Last Admin: 07/09/18 06:15 Dose: Not Given Ondansetron HCl (Zofran Inj) 4 mg IVP Q6H [facility] Last Admin: 07/08/18 17:41 Dose: Not Given Ondansetron HCl (Zofran Odt) 4 mg PO Q4H PRN PRN Reason: Nausea/Vomiting Last Admin: 07/08/18 22:48 Dose: 4 mg Oxycodone/Acetaminophen (Percocet 5/325 Mg Tab) 2 tab PO Q4H PRN PRN Reason: Pain, severe (8-10) Stop: 07/11/18 22:20 Last Admin: 07/08/18 22:47 Dose: 2 tab Pantoprazole Sodium (Protonix Inj) 40 mg IVP DAILY [facility] Last Admin: 07/09/18 09:44 Dose: Not Given Paroxetine HCl (Paxil) 10 mg PO DAILY [facility] Last Admin: 07/09/18 09:44 Dose: Not Given Risperidone (Risperdal Tab) 1 mg PO BID [facility] Last Admin: 07/09/18 09:44 Dose: Not Given - Labs Labs: 07/09/18 10:03 07/09/18 10:03 - Constitutional Appears: Non-toxic, No Acute Distress - Head Exam Head Exam: ATRAUMATIC, NORMAL INSPECTION, NORMOCEPHALIC - Eye Exam Eye Exam: EOMI, Normal appearance - ENT Exam ENT Exam: Mucous Membranes Moist, Normal Exam - Neck Exam Additional comments: right port a cath - Respiratory Exam Respiratory Exam: Clear to Ausculation Bilateral, NORMAL BREATHING PATTERN - Cardiovascular Exam Cardiovascular Exam: REGULAR RHYTHM, +S1, +S2. absent: Tachycardia - GI/Abdominal Exam GI & Abdominal Exam: Soft, Normal Bowel Sounds. absent: Distended, Tenderness - Extremities Exam Extremities Exam: Normal Inspection. absent: Calf Tenderness, Pedal Edema Additional comments: left knee: ROM WNL, minimal tenderness with posterior drawer, no deformity/swelling/erythema - Neurological Exam Neurological Exam: Alert, Awake, Oriented x3 - Psychiatric Exam Psychiatric exam: Normal Affect, Normal Mood - Skin Skin Exam: Dry, Intact, Normal Color, Warm
[2018-07-09] MEDS ORDERED: Epoetin Alfa 10,000 unit/ml Dialysis SC ONE (12:00)
[2018-07-09] MEDS ORDERED: Paricalcitol 2 mcg/ml Inj IV ONE (12:00)
--- NOTE | 2018-07-09 13:04 | CP.PCM.CON ---
History of Present Illness - History of Present Illness History of Present Illness: Consult Note for Dr. Hines HPI: Patient is a 28 year old female with history of IDDM on insulin, gastroparesis, ESRD on HD MWF, seizures (pseudo?), anxiety who initially presented for nausea and intractable vomiting. She states that she had not had vomiting for the past 2 days. Patient has ESRD on HD, and she is receiving dialysis through chest portacath which was placed on 05/17/18. She had a left AV fistula placed on 05/07/18, but has not received dialysis through the AVF. Consult placed for Dr. Hines to evaluate AV fistula maturity. She states she has had no bleeding from the AV fistula site. PMH: IDDM on insulin, diabetic gastroparesis, ESRD on HD MWF, seizures (pseudo?), anxiety PSH: appendectomy, AV fistula Allergies: NKDA Social hx: denies alcohol, tobacco or drug use. Family hx: heart disease Review of Systems - Constitutional Constitutional: absent: Chills, Fever - EENT Nose/Mouth/Throat: absent: Nasal Congestion - Cardiovascular Cardiovascular: absent: Chest Pain, Dyspnea - Respiratory Respiratory: absent: Cough, Dyspnea - Gastrointestinal Gastrointestinal: Nausea, Vomiting. absent: Abdominal Pain - Musculoskeletal Musculoskeletal: absent: Back Pain - Psychiatric Psychiatric: absent: Anxiety, Depression Past Patient History - Infectious Disease Hx of Infectious Diseases: None - Past Medical History & Family History Past Medical History?: Yes - Past Social History Smoking Status: Never Smoked - CARDIAC Hx Hypertension: Yes - PULMONARY Hx Bronchitis: Yes - NEUROLOGICAL Hx Seizures: Yes (Pseudo seizures?) - HEENT Hx HEENT Problems: Yes Hx Cataracts: Yes - RENAL Hx Chronic Kidney Disease: Yes - ENDOCRINE/METABOLIC Hx Endocrine Disorders: Yes Hx Diabetes Mellitus Type 2: Yes (on insulin pump) - HEMATOLOGICAL/ONCOLOGICAL Hx Anemia: Yes Hx Human Immunodeficiency Virus (HIV): No - INTEGUMENTARY Hx Dermatological Problems: No - MUSCULOSKELETAL/RHEUMATOLOGICAL Hx Musculoskeletal Disorders: Yes Hx Falls: Yes - GASTROINTESTINAL Hx Gastrointestinal Disorders: Yes (SEE COMMENT) Other/Comment: gastroparesis - GENITOURINARY/GYNECOLOGICAL Hx Genitourinary Disorders: No - PSYCHIATRIC Hx Anxiety: Yes Hx Depression: Yes Hx Substance Use: No - SURGICAL HISTORY Hx Appendectomy: Yes - ANESTHESIA Hx Anesthesia: Yes Hx Anesthesia Reactions: No Hx Malignant Hyperthermia: No Meds Allergies/Adverse Reactions: Allergies Allergy/AdvReac Type Severity Reaction Status Date / Time No Known Allergies Allergy Verified 07/05/18 12:16 - Medications Medications: Current Medications Clonidine HCl (Catapres-Tts2 0.2 Mg/24 Hr) 1 patch TD Q7D@1000 [facility] Last Admin: 07/06/18 14:38 Dose: 1 patch Dextrose (Dextrose 50% Inj) 0 ml IV STAT PRN; Protocol PRN Reason: Hypoglycemia Protocol Dextrose (Glutose 15) 0 gm PO ONCE PRN; Protocol PRN Reason: Hypoglycemia Protocol Docusate Sodium (Colace) 100 mg PO TID [facility] Last Admin: 07/09/18 09:44 Dose: Not Given Glucagon (Glucagen Diagnostic Kit) 0 mg IM STAT PRN; Protocol PRN Reason: Hypoglycemia Protocol Hydromorphone HCl (Dilaudid) 0.5 mg IVP Q4H PRN PRN Reason: Pain, moderate (4-7) Hydroxyzine HCl (Atarax) 25 mg PO Q6 PRN PRN Reason: Agitation Last Admin: 07/08/18 23:03 Dose: 25 mg Dextrose (Dextrose 5% In Water 1000 Ml) 1,000 mls @ 0 mls/hr IV .Q0M PRN; Protocol PRN Reason: Hypoglycemia Protocol Insulin Detemir (Levemir) 15 unit SC [facility] Insulin Human Regular (Novolin R) 0 unit SC [facility]; Protocol Last Admin: 07/09/18 07:04 Dose: 10 units Labetalol HCl (Trandate) 20 mg IVP Q4H PRN PRN Reason: Systolic Blood Pressure Last Admin: 07/08/18 05:56 Dose: 20 mg Metoclopramide HCl (Reglan) 5 mg IVP Q6H [facility] Last Admin: 07/09/18 11:53 Dose: Not Given Ondansetron HCl (Zofran Inj) 4 mg IVP Q6H [facility] Last Admin: 07/08/18 17:41 Dose: Not Given Ondansetron HCl (Zofran Odt) 4 mg PO Q4H PRN PRN Reason: Nausea/Vomiting Last Admin: 07/08/18 22:48 Dose: 4 mg Oxycodone/Acetaminophen (Percocet 5/325 Mg Tab) 2 tab PO Q4H PRN PRN Reason: Pain, severe (8-10) Stop: 07/11/18 22:20 Last Admin: 07/08/18 22:47 Dose: 2 tab Pantoprazole Sodium (Protonix Inj) 40 mg IVP DAILY [facility] Last Admin: 07/09/18 09:44 Dose: Not Given Paroxetine HCl (Paxil) 10 mg PO DAILY [facility] Last Admin: 07/09/18 09:44 Dose: Not Given Risperidone (Risperdal Tab) 1 mg PO BID [facility] Last Admin: 07/09/18 09:44 Dose: Not Given Physical Exam - Constitutional Appears: Well, No Acute Distress Additional comments: Patient receiving dialysis - Head Exam Head Exam: ATRAUMATIC, NORMOCEPHALIC - Eye Exam Eye Exam: EOMI, PERRL - ENT Exam ENT Exam: Mucous Membranes Moist - Neck Exam Neck exam: Positive for: Full Rom - Respiratory Exam Respiratory Exam: NORMAL BREATHING PATTERN - Cardiovascular Exam Cardiovascular Exam: REGULAR RHYTHM, +S1, +S2 - GI/Abdominal Exam GI & Abdominal Exam: Normal Bowel Sounds, Soft - Extremities Exam Additional comments: Left upper extremity AV fistula, palpable thrill Good radial pulse present. - Neurological Exam Neurological exam: Alert, Oriented x3 Results - Vital Signs Recent Vital Signs: Last Vital Signs Temp 98 F 07/09/18 09:05 Pulse 76 07/09/18 12:00 Resp 16 07/09/18 09:05 BP 163/105 H 07/09/18 12:00 Pulse Ox 97 07/09/18 07:35 - Labs Result Diagrams: 07/09/18 10:03 07/09/18 10:03 Labs: Laboratory Results - last 24 hr 07/08/18 07/08/18 07/09/18 16:55 21:35 06:43 WBC RBC Hgb Hct MCV MCH MCHC RDW Plt Count MPV Sodium Potassium Chloride Carbon Dioxide Anion Gap BUN Creatinine Est GFR ( Amer) Est GFR (Non-Af Amer) POC Glucose (mg/dL) 263 H 151 H > 500 H* Random Glucose Calcium Total Bilirubin AST ALT Alkaline Phosphatase Total Protein Albumin Globulin Albumin/Globulin Ratio 07/09/18 07/09/18 10:03 10:03 WBC 5.7 RBC 3.83 Hgb 10.4 L Hct 33.1 L MCV 86.4 MCH 27.1 MCHC 31.3 L RDW 16.3 H Plt Count 263 MPV 8.7 Sodium 133 Potassium 3.5 L Chloride 100 Carbon Dioxide 25 Anion Gap 12 BUN 24 H Creatinine 3.6 H Est GFR ( Amer) 18 Est GFR (Non-Af Amer) 15 POC Glucose (mg/dL) Random Glucose 299 H D Calcium 6.9 L Total Bilirubin 0.3 AST 8 L D ALT 6 L D Alkaline Phosphatase 103 Total Protein 5.1 L Albumin 3.1 L Globulin 2.0 L Albumin/Globulin Ratio 1.5 Assessment & Plan - Assessment and Plan (Free Text) Assessment: 28 year old female with history of IDDM on insulin, diabetic gastroparesis, ESRD on HD MWF, seizures (pseudo), anxiety who presented for nausea and intractable vomiting. Patient had left AV fistula placed on 05/07/[address] Hines. Consult placed to evaluate AV fistula maturity. Plan: Continue hemodialysis MWF Follow up hemodialysis access duplex US results outpatient. Follow up with Dr. Hines in office in 1 week. Ruddy Larkin, PGY1
[2018-07-09 14:20] VITALS: BP 157/103
[2018-07-09] MEDS ORDERED: HYDROmorphone 0.5 mg/0.5 ml ISec ONE (15:30)
[2018-07-09 15:40] VITALS: BMI 28.1
--- NOTE | 2018-07-09 16:19 | CP.PCM.DIS ---
Provider - Provider Date of Admission: 07/08/18 13:56 Attending physician: Reza King Jr, MD Primary care physician: Consults: 07/05/18 13:51 Nephrology Consult Stat Comment: Consulting Provider: Migue Nieves Consulting Physician: Migue Nieves Reason for Consult: your pt, dialysis 07/06/18 10:39 Psychiatry Consult Routine Comment: Consulting Provider: Giancarlo New Consulting Physician: Giancarlo New Reason for Consult: severe emotional distress, munchausen's 07/09/18 11:11 General Surgery Consult Routine Comment: Consulting Provider: Tawanda Hines Jr. Consulting Physician: Tawanda Hines Jr. Reason for Consult: please eval AVF, your pt Time Spent in preparation of Discharge (in minutes): 30 Diagnosis - Discharge Diagnosis (1) Gastroparesis Status: Chronic Hospital Course - Lab Results Lab Results: Micro Results 07/05/18 15:25 Blood-Venous Blood Culture - Preliminary NO GROWTH AFTER 4 DAYS 07/05/18 14:15 Blood-Venous Blood Culture - Preliminary NO GROWTH AFTER 4 DAYS 07/06/18 02:25 Urine,Clean Catch Urine Culture - Final No Growth (<1,000 CFU/ML) Most Recent Lab Values WBC 5.7 K/uL (4.8-10.8) 07/09/18 10:03 RBC 3.83 Mil/uL (3.80-5.20) 07/09/18 10:03 Hgb 10.4 g/dL (11.0-16.0) L 07/09/18 10:03 Hct 33.1 % (34.0-47.0) L 07/09/18 10:03 MCV 86.4 fL (81.0-99.0) 07/09/18 10:03 MCH 27.1 pg (27.0-31.0) 07/09/18 10:03 MCHC 31.3 g/dL (33.0-37.0) L 07/09/18 10:03 RDW 16.3 % (11.5-14.5) H 07/09/18 10:03 Plt Count 263 K/uL (130-400) 07/09/18 10:03 MPV 8.7 fL (7.2-11.7) 07/09/18 10:03 Neut % (Auto) 66.3 % (50.0-75.0) 07/07/18 14:40 Lymph % (Auto) 22.1 % (20.0-40.0) 07/07/18 14:40 [place] % (Auto) 9.9 % (0.0-10.0) 07/07/18 14:40 Eos % (Auto) 0.3 % (0.0-4.0) 07/07/18 14:40 Baso % (Auto) 1.4 % (0.0-2.0) 07/07/18 14:40 Neut # (Auto) 5.1 K/uL (1.8-7.0) 07/07/18 14:40 Lymph # (Auto) 1.7 K/uL (1.0-4.3) 07/07/18 14:40 [place] # (Auto) 0.8 K/uL (0.0-0.8) 07/07/18 14:40 Eos # (Auto) 0.0 K/uL (0.0-0.7) 07/07/18 14:40 Baso # (Auto) 0.1 K/uL (0.0-0.2) 07/07/18 14:40 Neutrophils % (Manual) 89 % (50-75) H 07/05/18 14:22 Band Neutrophils % 1 % (0-2) 07/05/18 14:22 Lymphocytes % (Manual) 7 % (20-40) L 07/05/18 14:22 Monocytes % (Manual) 3 % (0-10) 07/05/18 14:22 Platelet Estimate Normal (NORMAL) 07/05/18 14:22 Poikilocytosis (manual Slight 07/05/18 14:22 Anisocytosis (manual) Slight 07/05/18 14:22 Sodium 133 mmol/L (132-148) 07/09/18 10:03 Potassium 3.5 mmol/L (3.6-5.2) L 07/09/18 10:03 Chloride 100 mmol/L (98-107) 07/09/18 10:03 Carbon Dioxide 25 mmol/L (22-30) 07/09/18 10:03 Anion Gap 12 (10-20) 07/09/18 10:03 BUN 24 mg/dL (7-17) H 07/09/18 10:03 Creatinine 3.6 mg/dL (0.7-1.2) H 07/09/18 10:03 Est GFR ( Amer) 18 07/09/18 10:03 Est GFR (Non-Af Amer) 15 07/09/18 10:03 POC Glucose (mg/dL) > 500 mg/dL (65-110) H* 07/09/18 06:43 Random Glucose 299 mg/dL (65-105) H D 07/09/18 10:03 Hemoglobin A1c 6.1 % (4.2-6.5) 07/05/18 14:22 Calcium 6.9 mg/dl (8.6-10.4) L 07/09/18 10:03 Phosphorus 7.0 mg/dL (2.5-4.5) H 07/05/18 14:22 Magnesium 2.7 mg/dL (1.6-2.3) H 07/05/18 14:22 Total Bilirubin 0.3 mg/dL (0.2-1.3) 07/09/18 10:03 AST 8 U/L (14-36) L D 07/09/18 10:03 ALT 6 U/L (9-52) L D 07/09/18 10:03 Alkaline Phosphatase 103 U/L (38-126) 07/09/18 10:03 Total Protein 5.1 g/dL (6.3-8.3) L 07/09/18 10:03 Albumin 3.1 g/dL (3.5-5.0) L 07/09/18 10:03 Globulin 2.0 gm/dL (2.2-3.9) L 07/09/18 10:03 Albumin/Globulin Ratio 1.5 (1.0-2.1) 07/09/18 10:03 Lipase 41 U/L (23-300) 07/05/18 14:22 Urine Color Yellow (YELLOW) 07/05/18 12:29 Urine Clarity Hazy (Clear) 07/05/18 12:29 Urine pH 6.0 (5.0-8.0) 07/05/18 12:29 Ur Specific [place] 1.015 (1.003-1.030) 07/05/18 12:29 Urine Protein 3+ mg/dL (NEGATIVE) H 07/05/18 12:29 Urine Glucose (UA) 3+ mg/dL (Normal) H 07/05/18 12:29 Urine Ketones Negative mg/dL (NEGATIVE) 07/05/18 12:29 Urine Blood Negative (NEGATIVE) 07/05/18 12:29 Urine Nitrate Negative (NEGATIVE) 07/05/18 12:29 Urine Bilirubin Negative (NEGATIVE) 07/05/18 12:29 Urine Urobilinogen Normal mg/dL (0.2-1.0) 07/05/18 12:29 Ur Leukocyte Esterase Neg [place]/uL (Negative) 07/05/18 12:29 Urine WBC (Auto) 3 /hpf (0-5) 07/05/18 12:29 Urine RBC (Auto) 2 /hpf (0-3) 07/05/18 12:29 Ur Squamous Epith Cells 1 /hpf (0-5) 07/05/18 12:29 Urine Bacteria Rare (<OCC) 07/05/18 12:29 Urine HCG, Qual Negative (NEGATIVE) 07/06/18 02:25 Urine Opiates Screen Negative (NEGATIVE) 07/06/18 02:25 Urine Methadone Screen Negative (NEGATIVE) 07/06/18 02:25 Ur Barbiturates Screen Negative (NEGATIVE) 07/06/18 02:25 Ur Phencyclidine Scrn Negative (NEGATIVE) 07/06/18 02:25 Ur Amphetamines Screen Negative (NEGATIVE) 07/06/18 02:25 U Benzodiazepines Scrn Negative (NEGATIVE) 07/06/18 02:25 U Oth Cocaine Metabols Negative (NEGATIVE) 07/06/18 02:25 U Cannabinoids Screen Negative (NEGATIVE) 07/06/18 02:25 - Hospital Course Hospital Course: HPI on admission: "Patient is a 28 year old female with pmhx of poorly controlled IDDM, ESRD on HD(MWF), and seizures(pseudo?), anxiety who presents to ED today with complaints of nausea and intractable vomiting since this morning. Patient is accompanied by her mother who report pt did not have breakfast this morning, and then began having nausea, followed by multiple episodes of dark blown/bloody emesis. Pt and mother report compliance with diabetic diet at home, and medications and HD as instructed. Pt was scheduled for HD today, however presented to ED before getting dialyzed. Pt reports SOB and epigastric pain since onset of emesis this morning. Pt reports 1 episode of loose BM yesterday, and on average has been urinating approximately 2 times per day. Denies recent illness with fever like symptoms, chest pain, constipation, LE edema." Discharge Exam - Head Exam Head Exam: ATRAUMATIC, NORMAL INSPECTION, NORMOCEPHALIC - Additional Findings Additional findings: - Constitutional Appears: Non-toxic, No Acute Distress - Head Exam Head Exam: ATRAUMATIC, NORMAL INSPECTION, NORMOCEPHALIC - Eye Exam Eye Exam: EOMI, Normal appearance - ENT Exam ENT Exam: Mucous Membranes Moist, Normal Exam - Neck Exam Additional comments: right port a cath - Respiratory Exam Respiratory Exam: Clear to Auscultation Bilateral, NORMAL BREATHING PATTERN - Cardiovascular Exam Cardiovascular Exam: REGULAR RHYTHM, +S1, +S2. absent: Tachycardia - GI/Abdominal Exam GI & Abdominal Exam: Soft, Normal Bowel Sounds. absent: Distended, Tenderness - Extremities Exam Extremities Exam: Normal Inspection. absent: Calf Tenderness, Pedal Edema Additional comments: left knee: ROM WNL, minimal tenderness with posterior drawer, no deformity/swelling/erythema - Neurological Exam Neurological Exam: Alert, Awake, Oriented x3 - Psychiatric Exam Psychiatric exam: Normal Affect, Normal Mood - Skin Skin Exam: Dry, Intact, Normal Color, Warm Discharge Plan - Follow Up Plan Condition: GUARDED Disposition: HOME/ ROUTINE Instructions: Gastroparesis (Delayed Gastric Emptying) (DC) Additional Instructions: Patient discharged home in stable condition. Patient instructed to resume all home medications as prescribed. No changes to medications have been made. Patient instructed to continue HD as instructed. Patient is to follow up with PMD, Dr. King within 1 week of discharge Patient is to follow up with [facility], Dr. Nieves within 1 week of discharge Patient is to follow up with Vascular Surgery, Dr. Hines within 1 week of discharge Patient reminded to follow a diabetic diet Patient instructed to follow up with PMD or if unavailable, return to ED with any worsening of symptoms Referrals: Tawanda Hines Jr., MD [Staff Provider] - Migue Nieves MD [Staff Provider] -
[2018-07-09 16:40] VITALS: PULSE 82
[2018-07-09] MEDS ORDERED: Insulin Detemir 100 units/ml Vial (Levemir) SC SCH (22:00)
== END 2018-07-09 18:22 | disposition home or self-care (01) | DRG 533 ==
LOC: C.ER 11:58 → UNDOADMOB 14:02 → C.9E 14:02 → C.3T 18:49 → C.6T 23:40 → OBSVTOIN 07-08 13:56
PROVIDERS: ADMIT Internal Medicine; ATTEND Internal Medicine
PROC: 5A1D70Z Performance of Urinary Filtration, Intermittent, Less than 6 Hours Per Day (ICD-10-PCS; principal; 2018-07-08)
DX: E11.43 Type 2 diabetes mellitus with diabetic autonomic (poly)neuropathy (principal); R65.10 Systemic inflammatory response syndrome (SIRS) of non-infectious origin without acute organ dysfunction; I12.0 Hypertensive chronic kidney disease with stage 5 chronic kidney disease or end stage renal disease; N18.6 End stage renal disease; E87.2 Acidosis; E87.6 Hypokalemia; D63.1 Anemia in chronic kidney disease; E11.22 Type 2 diabetes mellitus with diabetic chronic kidney disease; Z99.2 Dependence on renal dialysis; K31.84 Gastroparesis; Z79.4 Long term (current) use of insulin; F41.9 Anxiety disorder, unspecified; E11.10 Type 2 diabetes mellitus with ketoacidosis without coma; I16.0 Hypertensive urgency; F60.3 Borderline personality disorder; Z76.5 Malingerer [conscious simulation]

== ENCOUNTER 2018-07-27 16:22 | Inpatient (IN) | payer MEDICAID ==
[2018-07-27 16:22] VITALS: BMI 28.1
[2018-07-27] MEDS ORDERED: Sodium Chloride 0.9% 1,000 ML IV ONE (16:40)
[2018-07-27] MEDS ORDERED: Morphine 4 MG/ML VIAL IV ONE (16:43)
[2018-07-27 17:03] LABS: BASO # 0.1 K/uL (0.0-0.2); BASO % 0.7 % (0.0-2.0); HEMOGLOBIN 13.9 g/dL (11.0-16.0); LYMPH # 1.2 K/uL (1.0-4.3); MEAN CELL VOLUME 82.9 fL (81.0-99.0); MEAN CORPUSCULAR HEMOGLOBIN 25.8 pg (27.0-31.0); MEAN CORPUSCULAR HGB CONC 31.1 g/dL (33.0-37.0); MEAN PLATELET VOLUME 10.1 fL (7.2-11.7); MONO # 0.2 K/uL (0.0-0.8); MONO % 1.3 % (0.0-10.0); NEUT # 11.2 K/uL (1.8-7.0); RBC 5.39 Mil/uL (3.80-5.20); RED CELL DISTRIBUTION WIDTH 18.2 % (11.5-14.5); WHITE BLOOD COUNT 12.7 K/uL (4.8-10.8)
--- NOTE | 2018-07-27 17:30 | RAD ---
Date of service: 07/27/2018 HISTORY: r/o pneumonia COMPARISON: 07/05/2018. FINDINGS: LUNGS: No active pulmonary disease. PLEURA: No significant pleural effusion identified, no pneumothorax apparent. CARDIOVASCULAR: No atherosclerotic calcification present No radiographic findings to suggest acute or significant cardiovascular disease. Venous access catheter in stable, satisfactory position. OSSEOUS STRUCTURES: No significant abnormalities. VISUALIZED UPPER ABDOMEN: Normal. OTHER FINDINGS: None. IMPRESSION: No active disease. No significant interval change compared to the prior examination(s).
--- NOTE | 2018-07-27 17:42 | C.PDOC ---
History Of Present Illness Patient is a 28 year old female, with a long PMHx of gastroparesis, who was biba with her mother to the ED c/o severe abdominal pain with associated vomiting that began this morning. Medics noted that patient had seizure-like activity. Mother states that when patient gets anxious she becomes shaky, which she witnessed today but no seizure. Patient has a history of uncontrolled diabetes with ESRD and is on dialysis with her last dialysis yesterday. Patient is yelling she wants dilantin. Time Seen by Provider: 07/27/18 16:27 Chief Complaint (Nursing): GI Problem History Per: Patient History/Exam Limitations: no limitations Onset/Duration Of Symptoms: Hrs Current Symptoms Are (Timing): Still Present Associated Symptoms: Vomiting. denies: Chest Pain Recent travel outside of the [place]: No Additional History Per: Patient Past Medical History Reviewed: Historical Data, Nursing Documentation, Vital Signs Vital Signs: Last Vital Signs Temp 97.5 F L 07/27/18 16:32 Pulse 135 H 07/27/18 16:32 Resp 26 H 07/27/18 16:32 BP 148/111 H 07/27/18 16:32 Pulse Ox 98 07/27/18 16:32 - Medical History PMH: Anemia, Anxiety, Bronchitis, Depression, Diabetes, HTN, End Stage Renal Disease, Chronic Kidney Disease, Seizures (Pseudo seizures?) Denies: HIV Surgical History: Appendectomy, Endoscopy - [facility] (07/08/18) (02/23/18) BYPASS LEFT BRACHIAL ARTERY TO UPPER ARM VEIN, OPEN APPROACH (04/28/18) EXCISION OF STOMACH, ENDO, DIAGN (11/02/16) EXCISION OF STOMACH, PYLORUS, ENDO, DIAGN (03/10/17) FLUOROSCOPY OF RIGHT SUBCLAVIAN VEIN, GUIDANCE (01/16/18) GROUP PSYCHOTHERAPY (06/09/17) INDIVIDUAL PSYCHOTHERAPY, SUPPORTIVE (06/09/17) INSERT INFUSION DEV IN L EXT JUGULAR VEIN, PERC (05/29/18) INSERTION OF INFUSION DEV INTO L FEMOR VEIN, PERC APPROACH (02/23/18) INSERTION OF INFUSION DEV INTO L SUBCLAV VEIN, PERC APPROACH (10/28/16) INSERTION OF INFUSION DEV INTO R SUBCLAV VEIN, PERC APPROACH (01/16/18) INSERTION OF INFUSION DEV INTO SUP VENA CAVA, PERC APPROACH (11/23/17) INTRODUCTION OF NUTRITIONAL INTO PERIPH VEIN, PERC APPROACH (10/16/16) MEDICATION MANAGEMENT (06/09/17) ULTRASONOGRAPHY OF SUPERIOR VENA CAVA, GUIDANCE (10/16/16) Family History: States: Unknown Family Hx - Social History Hx Tobacco Use: No Hx Alcohol Use: No Hx Substance Use: No - Immunization History Hx Tetanus Toxoid Vaccination: No Hx Influenza Vaccination: Yes Hx Pneumococcal Vaccination: Yes Review Of Systems Constitutional: Negative for: Fever, Chills Cardiovascular: Negative for: Chest Pain Respiratory: Negative for: Shortness of Breath Gastrointestinal: Positive for: Vomiting, Abdominal Pain. Negative for: Diarrhea Neurological: Positive for: Seizures (seizure like activity ) Physical Exam - Physical Exam Appears: Non-toxic, Other (uncooperative, tearful, yelling) Skin: Normal Color, Warm, Dry Head: Atraumatic, Normacephalic Neck: Normal ROM, Supple Chest: Symmetrical, No Deformity, Other (port in right chest ) Cardiovascular: Rhythm Regular, No Murmur Respiratory: Normal Breath Sounds, No Rales, No Rhonchi, No Wheezing Gastrointestinal/Abdominal: Soft, Tenderness (epigastric ), Other (int ermittently vomiting) Neurological/Psych: Oriented x3 ED Course And Treatment - Laboratory Results Result Diagrams: 07/27/18 16:50 07/27/18 18:05 ECG: Interpreted By Me, Viewed By Me ECG Rhythm: Sinus Tachycardia Interpretation Of ECG: Normal axis, prolonged QTC, no ST elevation Rate From EC O2 Sat by Pulse Oximetry: 98 (on RA) Pulse Ox Interpretation: Normal - Other Rad CXR X-Ray: Viewed By Me, Read By Radiologist Interpretation: Date of service: 07/27/2018. HISTORY: r/o pneumonia. COMPARISON: 07/05/2018. FINDINGS: LUNGS: No active pulmonary disease. P LEURA: No significant pleural effusion identified, no pneumothorax apparent. CARDIOVASCULAR: No atherosclerotic calcification present. No radiographic findings to suggest acute or significant cardiovascular disease. Venous access catheter in stable, satisfactory position. OSSEOUS STRUCTURES: No significant abnormalities. VISUALIZED UPPER ABDOMEN: Normal. OTHER FINDINGS: None. IMPRESSION: No active disease. No significant interval change compared to the prior examination(s). Medical Decision Making Medical Decision Making: Plan: VBG Labs EKG CXR Urinalysis Blood Culture IV Fluids Morphine 8mg IV Zofran 4mg IVP Patient arrived to the ED screaming "I want Dilaudid". Explained that we do not administer Dilaudid in the ED. She is tearful, agitated, and continues to yell "I want my Dilaudid". 8mg morphine ivp given. 4mg zofran ivp also given for nausea. 1L NS bolus given. Labs drawn. Patient hyperglycemic with no acidosis or elevated anion gap, although ketones are elevated. Not likely DKA. Patient had two seizure like episodes both lasting less than 10 seconds, about 30 seconds apart, and both were self limited. 2mg ativan ivp given. Patient returned to baseline in less than a minute. Case discussed with Dr. King who knows the patient well. Accepts patient to his service. Case also discussed with medical technologist chemistry. Disposition - Disposition Disposition: HOSPITALIZED Disposition Time: 19:05 Condition: FAIR - Clinical Impression Clinical Impression: Gastroparesis, Hyperglycemia, Drug-seeking behavior - Scribe Statement The provider has reviewed the documentation as recorded by the Monoibelvis Franks All medical record entries made by the Monoibelvis were at my direction and personally dictated by me. I have reviewed the chart and agree that the record accurately reflects my personal performance of the history, physical exam, medical decision making, and the department course for this patient. I have also personally directed, reviewed, and agree with the discharge instructions and disposition.
[2018-07-27 17:45] LABS: VENOUS BLOOD GAS BASE EXCESS -9.3 mmol/L (0.0-2.0); VENOUS BLOOD GAS PCO2 30 mmHg (40-60); VENOUS BLOOD GAS PO2 53 mm/Hg (30-55); VENOUS BLOOD PH 7.32 (7.32-7.43)
[2018-07-27] MEDS ORDERED: Piperacillin/Tazobact 3.375 GM in Sodium Chloride 100 ML IVPB SCH (18:00)
[2018-07-27 18:31] LABS: ALB/GLOB RATIO 1.6 (1.0-2.1)
[2018-07-27 19:36] LABS: SQUAMOUS EPITHIAL < 1 /hpf (0-5); URINE BACTERIA RARE (<OCC); URINE BILIRUBIN NEGATIVE (NEGATIVE); URINE BLOOD NEGATIVE (NEGATIVE); URINE CLARITY Clear (Clear); URINE COLOR Yellow (YELLOW); URINE GLUCOSE (UA) 3+ mg/dL (Normal); URINE HYALINE CAST 0-2 /lpf (0-2); URINE LEUKOCYTE ESTERASE NEG Leu/uL (Negative); URINE PROTEIN 2+ mg/dL (NEGATIVE); URINE UROBILINOGEN NORMAL mg/dL (0.2-1.0)
--- NOTE | 2018-07-27 20:41 | CP.PCM.HP ---
History of Present Illness - History of Present Illness History of Present Illness: cc: "vomiting" Patient is a 28 year old female with PMHx poorly controlled IDDM, diabetic gastroparesis, ESRD on HD (MWF), seizure activity, and Munchausen's was BIB by mom for intractable vomiting x1 day. Mom and patient state that she was able to tolerate breakfast this morning despite nausea, but hasn't been able to tolerate cadena or liquids since lunch. Vomitus has been nonbilious watery yellow with streaks of pink/red blood. She denies any clots. Mother reports compliance with medication at home. Patient completed HD yesterday without issues. Reports associated chills, chest pain, palpitations, shortness of breath, cough with vomiting. Denies recent illness with fever like symptoms, constipation, diarrhea, edema. Patient was hospitalized at [facility] for intractable vomiting 07/05-. pmhx: IDDM, diabetic gastroparesis, ESRD, seizure hx, anxiety, Munchausen's pshx: appy, AVF meds: Coreg 6.25mg po q12, clonidine 0.2mg TD q7d, levemir 15u qd, novolog 7u QID, calcitriol 0.25mcg po MWF, reglan 10mg po q6h prn, zofran 4mg po q6 prn, protonix po allergies: NKDA famhx: Heart disease sochx: Denies alcohol/tobacco/drug use Full Code Present on Admission - Present on Admission Any Indicators Present on Admission: No Review of Systems - Constitutional Constitutional: Chills. absent: Fever, Headache, Weakness - EENT Eyes: Blurred Vision, Diplopia. absent: Change in Vision Ears: absent: Decreased Hearing, Tinnitus, Dizziness Nose/Mouth/Throat: absent: Sore Throat - Cardiovascular Cardiovascular: Chest Pain, Palpitations - Respiratory Respiratory: Cough, Dyspnea. absent: Wheezing - Gastrointestinal Gastrointestinal: Abdominal Pain, Hematemesis, Nausea, Vomiting. absent: C onstipation, Diarrhea, Hematochezia, Melena - Genitourinary Genitourinary: absent: Change in Urinary Stream, Difficulty Urinating, Urinary Frequency - Musculoskeletal Musculoskeletal: absent: Numbness, Tingling - Integumentary Integumentary: absent: Bleeding Lesions, Rash, Unusual Bruising - Psychiatric Psychiatric: Anxiety - Hematologic/Lymphatic Hematologic: absent: Easy Bleeding, Easy Bruising Past Patient History - Infectious Disease Hx of Infectious Diseases: None - Past Medical History & Family History Past Medical History?: Yes - Past Social History Smoking Status: Never Smoked Alcohol: None Drugs: Denies - CARDIAC Hx Hypertension: Yes - PULMONARY Hx Bronchitis: Yes - NEUROLOGICAL Hx Seizures: Yes (Pseudo seizures?) - HEENT Hx HEENT Problems: Yes Hx Cataracts: Yes - RENAL Hx Chronic Kidney Disease: Yes - ENDOCRINE/METABOLIC Hx Endocrine Disorders: Yes Hx Diabetes Mellitus Type 2: Yes (on insulin pump) - HEMATOLOGICAL/ONCOLOGICAL Hx Anemia: Yes Hx Human Immunodeficiency Virus (HIV): No - INTEGUMENTARY Hx Dermatological Problems: No - MUSCULOSKELETAL/RHEUMATOLOGICAL Hx Musculoskeletal Disorders: Yes Hx Falls: Yes - GASTROINTESTINAL Hx Gastrointestinal Disorders: Yes (SEE COMMENT) Other/Comment: gastroparesis - GENITOURINARY/GYNECOLOGICAL Hx Genitourinary Disorders: No - PSYCHIATRIC Hx Anxiety: Yes Hx Depression: Yes Hx Substance Use: No - SURGICAL HISTORY Hx Appendectomy: Yes - ANESTHESIA Hx Anesthesia: Yes Hx Anesthesia Reactions: No Hx Malignant Hyperthermia: No Meds Allergies/Adverse Reactions: Allergies Allergy/AdvReac Type Severity Reaction Status Date / Time No Known Allergies Allergy Verified 07/27/18 16:38 Physical Exam - Constitutional Appears: Non-toxic Additional comments: actively spitting, nurses note patient is sticking finger down throat when mom was in bathroom - Head Exam Head Exam: ATRAUMATIC, NORMAL INSPECTION, NORMOCEPHALIC - Eye Exam Eye Exam: EOMI, Normal appearance, PERRL Pupil Exam: NORMAL ACCOMODATION - ENT Exam ENT Exam: Mucous Membranes Moist, Normal Exam - Neck Exam Neck exam: Positive for: Normal Inspection Additional comments: R chest dialysis catheter, bandaged c/d/i. no surrounding erythema - Respiratory Exam Respiratory Exam: Clear to Auscultation Bilateral, NORMAL BREATHING PATTERN. absent: Rales, Rhonchi, Wheezes - Cardiovascular Exam Cardiovascular Exam: Tachycardia, REGULAR RHYTHM, +S1, +S2 - GI/Abdominal Exam GI & Abdominal Exam: Hypoactive Bowel Sounds, Soft, Tenderness. absent: Dist ended Additional comments: minimal TTP when patient is unaware - Extremities Exam Extremities exam: Positive for: normal inspection. Negative for: calf tenderness, pedal edema Additional comments: L UE AVF, palpable thrill, audible bruit, no erythema - Back Exam Back exam: NORMAL INSPECTION. absent: CVA tenderness (L), CVA tenderness (R) - Neurological Exam Neurological exam: Alert, Oriented x3, Reflexes Normal - Psychiatric Exam Psychiatric exam: Depressed, Flat Affect - Skin Skin Exam: Dry, Intact, Normal Color, Warm Additional comments: multiple hyperpigmented scars on lower face/neck tattoos old, well healed Results - Vital Signs Recent Vital Signs: Last Vital Signs Temp 98.6 F 07/27/18 20:32 Pulse 100 H 07/27/18 20:32 Resp 20 07/27/18 20:32 BP 151/92 H 07/27/18 20:32 Pulse Ox 96 07/27/18 20:32 - Labs Result Diagrams: 07/27/18 16:50 07/27/18 18:05 Labs: Laboratory Results - last 24 hr 07/27/18 07/27/18 07/27/18 16:35 16:50 16:50 WBC 12.7 H D RBC 5.39 H Hgb 13.9 D Hct 44.6 MCV 82.9 D MCH 25.8 L MCHC 31.1 L RDW 18.2 H Plt Count 332 MPV 10.1 Neut % (Auto) 88.0 H Lymph % (Auto) 10.0 L [place] % (Auto) 1.3 Eos % (Auto) 0.0 Baso % (Auto) 0.7 Neut # (Auto) 11.2 H Lymph # (Auto) 1.2 [place] # (Auto) 0.2 Eos # (Auto) 0.0 Baso # (Auto) 0.1 pO2 VBG pH VBG pCO2 VBG HCO3 VBG Total CO2 VBG O2 Sat (Calc) VBG Base Excess VBG Potassium Glucose Lactate FiO2 Crit Value Called To Crit Value Called By Crit Value Read Back Blood Gas Notified Time Sodium Cancelled Potassium Cancelled Chloride Cancelled Carbon Dioxide Cancelled Anion Gap Cancelled BUN Cancelled Creatinine Cancelled Est GFR ( Amer) Cancelled Est GFR (Non-Af Amer) Cancelled POC Glucose (mg/dL) > 500 H* Random Glucose Cancelled Calcium Cancelled Total Bilirubin Cancelled AST Cancelled ALT Cancelled Alkaline Phosphatase Cancelled Total Protein Cancelled Albumin Cancelled Globulin Cancelled Albumin/Globulin Ratio Cancelled Venous Blood Potassium Urine Color Urine Clarity Urine pH Ur Specific [place] Urine Protein Urine Glucose (UA) Urine Ketones Urine Blood Urine Nitrate Urine Bilirubin Urine Urobilinogen Ur Leukocyte Esterase Urine WBC (Auto) Urine RBC (Auto) Ur Squamous Epith Cells Urine Bacteria Hyaline Casts B-Hydroxybutyrate Cancelled 07/27/18 07/27/18 07/27/18 17:40 18:05 19:01 WBC RBC Hgb Hct MCV MCH MCHC RDW Plt Count MPV Neut % (Auto) Lymph % (Auto) [place] % (Auto) Eos % (Auto) Baso % (Auto) Neut # (Auto) Lymph # (Auto) [place] # (Auto) Eos # (Auto) Baso # (Auto) pO2 53 VBG pH 7.32 VBG pCO2 30 L VBG HCO3 17.3 VBG Total CO2 16.4 L VBG O2 Sat (Calc) 89.1 H VBG Base Excess -9.3 L VBG Potassium 4.7 Glucose 504 H* D Lactate 3.1 H FiO2 21.0 Crit Value Called To Kolton gonzalez Crit Value Called By [facility] Crit Value Read Back Y Blood Gas Notified Time 1745 Sodium 137.0 134 Potassium 5.4 H Chloride 104.0 102 Carbon Dioxide 18 L Anion Gap 20 BUN 49 H Creatinine 5.8 H Est GFR ( Amer) 10 Est GFR (Non-Af Amer) 9 POC Glucose (mg/dL) Random Glucose 536 H* D Calcium 8.0 L Total Bilirubin 0.6 AST 50 H D ALT 9 D Alkaline Phosphatase 123 Total Protein 6.6 Albumin 4.0 Globulin 2.6 Albumin/Globulin Ratio 1.6 Venous Blood Potassium 4.7 Urine Color Yellow Urine Clarity Clear Urine pH 7.0 Ur Specific [place] 1.014 Urine Protein 2+ H Urine Glucose (UA) 3+ H Urine Ketones Negative Urine Blood Negative Urine Nitrate Negative Urine Bilirubin Negative Urine Urobilinogen Normal Ur Leukocyte Esterase Neg Urine WBC (Auto) 1 Urine RBC (Auto) 2 Ur Squamous Epith Cells < 1 Urine Bacteria Rare Hyaline Casts 0-2 B-Hydroxybutyrate 1.21 H Assessment & Plan - Assessment and Plan (Free Text) Assessment: 28yo F PMH uncontrolled DM with gastroparesis, ESRD on HD, Munchausen's, HTN admitted for intractable vomiting x1 day. Plan: Intractable vomiting, acute likely 2/2 diabetic gastroparesis Hgb 13.9 OA VBG pH 7.32, lactate 3.1 UA 2+ protein, 3+ glucose b-hydroxybutyrate 1.21 Morphine 8, Ativan 2, Dilaudid 0.5 given - alternate Zofran 4 and Reglan 10 q6 prn - NS@100 - Zosyn 3.375 IVPB q8 started in ED - f/u Blood Cx - currently NPO, ADAT IDDM, uncontrolled Diabetic Gastroparesis Hgb A1c 07/05/18: 63.1 BG 536 OA - hold home medications - Accuchecks ACHS - ISS medium - hypoglycemia protocol - Levemir 15u HS ESRD on HD (MWF) Cr 5.8 OA. Last HD yesterday 07/26/18 without issues - Nephro consulted: Dr. Nieves - help appreciated Hypertension BP 231/137 OA, 142/89 when transferred to floor - home Clonidine 0.2 TD weekly PPx - DVT: CI due to hematemesis, SCDs only - GI: home Protonix 40mg po daily - Diet: NPO except medication, ADAT d/w Dr. Christine Arenas PGY-1 - Date & Time Date: 07/27/18 Time: 19:45
[2018-07-27] MEDS ORDERED: Sodium Chloride 0.9% 1,000 ML IV SCH (21:45)
[2018-07-27] MEDS ORDERED: HYDROmorphone 0.5 mg/0.5 ml ISec IVP STA (22:14)
[2018-07-27] MEDS: Insulin Detemir 100 units/ml Vial (Levemir) SC SCH (22:29)
[2018-07-28] MEDS ORDERED: HYDROmorphone 0.5 mg/0.5 ml ISec IVP STA (04:51)
[2018-07-28] MEDS ORDERED: (Novolog) Insulin Aspart, Recombinant 100 u/ml 10 ml vial SC SCH ×2 (07:30)
[2018-07-28] MEDS ORDERED: Piperacillin/Tazobact 3.375 GM in Sodium Chloride 100 ML IVPB SCH (08:00)
[2018-07-28] MEDS: Pantoprazole 40 mg EC Tab PO SCH (09:10)
--- NOTE | 2018-07-28 09:51 | CP.PCM.PN ---
Subjective - Date & Time of Evaluation Date of Evaluation: 07/28/18 Time of Evaluation: 09:51 - Subjective Subjective: DR KING SERVICE- IM Pt s/e at bedside, crying begging for dialudid and ativan. Pt is unable is slowly tolerating liquids. Pt denies CP SOB FC. still complains of nausea and vomiting. Objective - Vital Signs/Intake and Output Vital Signs (last 24 hours): Temp Pulse Resp BP Pulse Ox 97 F L 92 H 20 138/87 99 07/28/18 07:00 07/28/18 07:00 07/28/18 07:00 07/28/18 07:00 07/28/18 07:00 - Medications Medications: Current Medications Clonidine HCl (Catapres-Tts2 0.2 Mg/24 Hr) 1 patch TD QWK [facility]EL[facility] Hydromorphone HCl (Dilaudid) 0.5 mg IVP Q6H PRN PRN Reason: Pain, severe (8-10) Sodium Chloride (Sodium Chloride 0.9%) 1,000 mls @ 100 mls/hr IV .Q10H KELVIN Last Admin: 07/27/18 21:59 Dose: 100 mls/hr Piperacillin Sod/Tazobactam (Sod 3.375 gm/ Sodium Chloride) 100 mls @ 200 mls/h r IVPB Q8H [facility]; Protocol Last Admin: 07/28/18 09:10 Dose: 200 mls/hr Insulin Aspart (Novolog) 0 unit SC ACHS KELVIN; Protocol Insulin Aspart (Novolog) 7 unit SC QID [facility] Insulin Detemir (Levemir) 15 unit SC HS [facility] Last Admin: 07/27/18 22:29 Dose: 15 units Lorazepam (Ativan) 1 mg IVP Q6H PRN PRN Reason: Anxiety Last Admin: 07/28/18 06:03 Dose: 1 mg Metoclopramide HCl (Reglan) 10 mg IVP Q6 PRN PRN Reason: Nausea/Vomiting Ondansetron HCl (Zofran Inj) 4 mg IVP Q6 PRN PRN Reason: Nausea/Vomiting Last Admin: 07/28/18 04:42 Dose: 4 mg Pantoprazole Sodium (Protonix Ec Tab) 40 mg PO DAILY KELVIN Last Admin: 07/28/18 09:10 Dose: 40 mg - Labs Labs: 07/27/18 16:50 04/09/19 18:05 - Additional Findings Additional findings: - Constitutional Appears: Non-toxic Additional comments: actively spitting, nurses note patient is sticking finger down throat when mom was in bathroom - Head Exam Head Exam: ATRAUMATIC, NORMAL INSPECTION, NORMOCEPHALIC - Eye Exam Eye Exam: EOMI, Normal appearance, PERRL Pupil Exam: NORMAL ACCOMODATION - ENT Exam ENT Exam: Mucous Membranes Moist, Normal Exam - Neck Exam Neck exam: Positive for: Normal Inspection Additional comments: R chest dialysis catheter, bandaged c/d/i. no surrounding erythema - Respiratory Exam Respiratory Exam: Clear to Auscultation Bilateral, NORMAL BREATHING PATTERN. absent: Rales, Rhonchi, Wheezes - Cardiovascular Exam Cardiovascular Exam: Tachycardia, REGULAR RHYTHM, +S1, +S2 - GI/Abdominal Exam GI & Abdominal Exam: Hypoactive Bowel Sounds, Soft, Tenderness. absent: Distended Additional comments: minimal TTP when patient is unaware - Extremities Exam Extremities exam: Positive for: normal inspection. Negative for: calf te nderness, pedal edema Additional comments: L UE AVF, palpable thrill, audible bruit, no erythema - Back Exam Back exam: NORMAL INSPECTION. absent: CVA tenderness (L), CVA tenderness (R) - Neurological Exam Neurological exam: Alert, Oriented x3, Reflexes Normal - Psychiatric Exam Psychiatric exam: Depressed, Flat Affect - Skin Skin Exam: Dry, Intact, Normal Color, Warm Additional comments: multiple hyperpigmented scars on lower face/neck tattoos old, well healed Assessment and Plan - Assessment and Plan (Free Text) Assessment: 28yo F PMH uncontrolled DM with gastroparesis, ESRD on HD, Munchausen's, HTN admitted for intractable vomiting x1 day. Plan: Intractable vomiting, acute likely 2/2 diabetic gastroparesis Hgb 13.9 OA VBG pH 7.32, lactate 3.1 UA 2+ protein, 3+ glucose b-hydroxybutyrate 1.21 Morphine 8, Ativan 2, Dilaudid 0.5 given - alternate Zofran 4 and Reglan 10 q6 prn - NS@100 - f/u Blood Cx - Liquid Diet IDDM, uncontrolled Diabetic Gastroparesis Hgb A1c 07/05/18: 63.1 BG 536 OA - hold home medications - Accuchecks ACHS - ISS high, holding home insulin 7u ACHS - hypoglycemia protocol - Levemir 15u HS ESRD on HD (MWF) Cr 5.8 OA. Last HD yesterday 07/26/18 without issues - Nephro consulted: Dr. Nieves - help appreciated Hypertension BP 231/137 OA, 142/89 when transferred to floor - home Clonidine 0.2 TD weekly PPx - DVT: CI due to hematemesis, SCDs only - GI: home Protonix 40mg po daily - Diet: NPO except medication, ADAT CK PGY1 d/w Dr. King
[2018-07-28] MEDS: HYDROmorphone 0.5 mg/0.5 ml ISec IVP PRN ×2 (10:45→18:11)
[2018-07-28] MEDS: (Novolog) Insulin Aspart, Recombinant 100 u/ml 10 ml vial SC SCH ×3 (13:00→22:55)
[2018-07-28 14:29] LABS: BASO # 0.1 K/uL (0.0-0.2); LYMPH # 1.4 K/uL (1.0-4.3); LYMPH % 17.7 % (20.0-40.0); MONO # 0.1 K/uL (0.0-0.8); MONO % 1.4 % (0.0-10.0); NEUT # 6.1 K/uL (1.8-7.0)
[2018-07-28 14:36] LABS: BASO % 0.8 % (0.0-2.0); MEAN CELL VOLUME 82.2 fL (81.0-99.0); MEAN CORPUSCULAR HEMOGLOBIN 26.3 pg (27.0-31.0); MEAN PLATELET VOLUME 9.6 fL (7.2-11.7); NEUT % 80.1 % (50.0-75.0); RBC 4.49 Mil/uL (3.80-5.20); RED CELL DISTRIBUTION WIDTH 17.9 % (11.5-14.5); WHITE BLOOD COUNT 7.7 K/uL (4.8-10.8)
[2018-07-28 14:38] LABS: HEMOGLOBIN 11.8 g/dL (11.0-16.0)
[2018-07-28 15:39] LABS: ALB/GLOB RATIO 1.6 (1.0-2.1); ALBUMIN 3.9 g/dL (3.5-5.0); CALCIUM 8.8 mg/dl (8.6-10.4)
--- NOTE | 2018-07-28 17:02 | CARD ---
APPROVED REPORT Date of service: 07/27/2018 EKG Measurement Heart [id number] <Conclusion> Sinus tachycardia Poor R wave progression - Appears positional Abnormal ECG
--- NOTE | 2018-07-28 17:15 | CP.PCM.CON ---
<Oracio Nash - Last Filed: 07/28/18 17:11> History of Present Illness - History of Present Illness History of Present Illness: Nephro Consult Note for Dr. Nieves Service Oracio Nash DO, PGY-3 Consulted for: ESRD on HD This is a 28yo F with extensive PMH, including poorly controlled IDDM, diabetic gastroparesis, ESRD on HD (MWF), seizure activity, and Munchausens who presented to with complaint of intractable vomiting. As per patient, tolerated breakfast yesterday, but since lunchtime was unable to tolerate food or fluids orally, and has had at least 5 episodes of profuse vomiting. Denies hematemesis. Reports compliant with all of her medications at home. Reports still making urine. Denies hematuria, dysuria, current fevers/chills. Admits to nausea, and continues to spit mucous into bedside emesis container throughout exam. Reports compliance with HD, no recent missed sessions (last was 07/26/18). 12-system ROS reviewed and negative, except as above. PMH: as above PHS: appendectomy, AV Fist[facility] Fam Hx: Heart disease Soc Hx: Denies alcohol/tobacco/drug use Review of Systems - Review of Systems All systems: reviewed and no additional remarkable complaints except (as per HPI) Past Patient History - Infectious Disease Hx of Infectious Diseases: None - Past Medical History & Family History Past Medical History?: Yes - Past Social History Smoking Status: Never Smoked Alcohol: None Drugs: Denies - CARDIAC Hx Hypertension: Yes - PULMONARY Hx Bronchitis: Yes - NEUROLOGICAL Hx Seizures: Yes (Pseudo seizures?) - HEENT Hx HEENT Problems: Yes Hx Cataracts: Yes - RENAL Hx Chronic Kidney Disease: Yes - ENDOCRINE/METABOLIC Hx Endocrine Disorders: Yes Hx Diabetes Mellitus Type 2: Yes (on insulin pump) - HEMATOLOGICAL/ONCOLOGICAL Hx Anemia: Yes Hx Human Immunodeficiency Virus (HIV): No - INTEGUMENTARY Hx Dermatological Problems: No - MUSCULOSKELETAL/RHEUMATOLOGICAL Hx Musculoskeletal Disorders: Yes Hx Falls: Yes - GASTROINTESTINAL Hx Gastrointestinal Disorders: Yes (SEE COMMENT) Other/Comment: gastroparesis - GENITOURINARY/GYNECOLOGICAL Hx Genitourinary Disorders: No - PSYCHIATRIC Hx Anxiety: Yes Hx Depression: Yes Hx Substance Use: No - SURGICAL HISTORY Hx Appendectomy: Yes - ANESTHESIA Hx Anesthesia: Yes Hx Anesthesia Reactions: No Hx Malignant Hyperthermia: No Meds Allergies/Adverse Reactions: Allergies Allergy/AdvReac Type Severity Reaction Status Date / Time No Known Allergies Allergy Verified 07/27/18 16:38 - Medications Medications: Current Medications Clonidine HCl (Catapres-Tts2 0.2 Mg/24 Hr) 1 patch TD QWK [facility] Hydromorphone HCl (Dilaudid) 0.5 mg IVP Q6H PRN PRN Reason: Pain, severe (8-10) Last Admin: 07/28/18 10:45 Dose: 0.5 mg Sodium Chloride (Sodium Chloride 0.9%) 1,000 mls @ 100 mls/hr IV .Q10H [facility] Last Admin: 07/27/18 21:59 Dose: 100 mls/hr Insulin Aspart (Novolog) 0 unit SC ACHS [facility]; Protocol Last Admin: 07/28/18 13:00 Dose: 4 units Insulin Aspart (Novolog) 7 unit SC QID [facility] Insulin Detemir (Levemir) 15 unit SC HS [facility] Last Admin: 07/27/18 22:29 Dose: 15 units Lorazepam (Ativan) 1 mg IVP Q6H PRN PRN Reason: Anxiety Last Admin: 07/28/18 06:03 Dose: 1 mg Metoclopramide HCl (Reglan) 10 mg IVP Q6 PRN PRN Reason: Nausea/Vomiting Ondansetron HCl (Zofran Inj) 4 mg IVP Q6 PRN PRN Reason: Nausea/Vomiting Last Admin: 07/28/18 10:45 Dose: 4 mg Pantoprazole Sodium (Protonix Ec Tab) 40 mg PO DAILY [facility] Last Admin: 07/28/18 09:10 Dose: 40 mg Physical Exam - Constitutional Appears: Non-toxic, In Acute Distress (emesis/spitting up at bedside), Chronically Ill - Head Exam Head Exam: ATRAUMATIC, NORMAL INSPECTION, NORMOCEPHALIC - Eye Exam Eye Exam: EOMI. absent: Conjunctival injection, Scleral icterus - ENT Exam ENT Exam: Mucous Membranes Moist - Neck Exam Neck exam: Negative for: Thyromegaly - Respiratory Exam Respiratory Exam: Clear to Auscultation Bilateral, NORMAL BREATHING PATTERN. absent: Accessory Muscle Use, Chest Wall Tenderness, Decreased Breath Sounds, Rales, Rhonchi, Wheezes - Cardiovascular Exam Cardiovascular Exam: Tachycardia, REGULAR RHYTHM, +S1, +S2. absent: Bradycardia, JVD - GI/Abdominal Exam GI & Abdominal Exam: Hyperactive Bowel Sounds, Soft, Tenderness (mild diffuse tenderness) - Extremities Exam Extremities exam: Positive for: normal inspection, pedal pulses present. Negative for: calf tenderness, pedal edema - Back Exam Back exam: absent: CVA tenderness (L), CVA tenderness (R) - Neurological Exam Additional comments: awake and alert, follows commands appropriately, moving all extremities spontaneously - Psychiatric Exam Psychiatric exam: Anxious - Skin Skin Exam: Dry, Intact, Normal Color, Warm Results - Vital Signs Recent Vital Signs: Last Vital Signs Temp 97.8 F 07/28/18 14:00 Pulse 112 H 07/28/18 14:00 Resp 116 H 07/28/18 14:00 BP 146/101 H 07/28/18 16:00 Pulse Ox 98 07/28/18 14:00 - Labs Result Diagrams: 07/28/18 14:23 07/28/18 14:23 Labs: Laboratory Results - last 24 hr 07/27/18 07/27/18 07/27/18 16:50 17:40 18:05 WBC RBC Hgb Hct MCV MCH MCHC RDW Plt Count MPV Neut % (Auto) Lymph % (Auto) [place] % (Auto) Eos % (Auto) Baso % (Auto) Neut # (Auto) Lymph # (Auto) [place] # (Auto) Eos # (Auto) Baso # (Auto) pO2 53 VBG pH 7.32 VBG pCO2 30 L VBG HCO3 17.3 VBG Total CO2 16.4 L VBG O2 Sat (Calc) 89.1 H VBG Base Excess -9.3 L VBG Potassium 4.7 Glucose 504 H* D Lactate 3.1 H FiO2 21.0 Crit Value Called To Kolton gonzalez Crit Value Called By [facility] Crit Value Read Back Y Blood Gas Notified Time 1745 Sodium Cancelled 137.0 134 Potassium Cancelled 5.4 H Chloride Cancelled 104.0 102 Carbon Dioxide Cancelled 18 L Anion Gap Cancelled 20 BUN Cancelled 49 H Creatinine Cancelled 5.8 H Est GFR ( Amer) Cancelled 10 Est GFR (Non-Af Amer) Cancelled 9 POC Glucose (mg/dL) Random Glucose Cancelled 536 H* D Calcium Cancelled 8.0 L Phosphorus Magnesium Total Bilirubin Cancelled 0.6 AST Cancelled 50 H D ALT Cancelled 9 D Alkaline Phosphatase Cancelled 123 Total Protein Cancelled 6.6 Albumin Cancelled 4.0 Globulin Cancelled 2.6 Albumin/Globulin Ratio Cancelled 1.6 Venous Blood Potassium 4.7 Urine Color Urine Clarity Urine pH Ur Specific [place] Urine Protein Urine Glucose (UA) Urine Ketones Urine Blood Urine Nitrate Urine Bilirubin Urine Urobilinogen Ur Leukocyte Esterase Urine WBC (Auto) Urine RBC (Auto) Ur Squamous Epith Cells Urine Bacteria Hyaline Casts B-Hydroxybutyrate Cancelled 1.21 H 07/27/18 07/28/18 07/28/18 19:01 14:23 14:23 WBC 7.7 RBC 4.49 Hgb 11.8 D Hct 36.9 MCV 82.2 MCH 26.3 L MCHC 32.0 L RDW 17.9 H Plt Count 293 MPV 9.6 Neut % (Auto) 80.1 H Lymph % (Auto) 17.7 L [place] % (Auto) 1.4 Eos % (Auto) 0.0 Baso % (Auto) 0.8 Neut # (Auto) 6.1 Lymph # (Auto) 1.4 [place] # (Auto) 0.1 Eos # (Auto) 0.0 Baso # (Auto) 0.1 pO2 VBG pH VBG pCO2 VBG HCO3 VBG Total CO2 VBG O2 Sat (Calc) VBG Base Excess VBG Potassium Glucose Lactate FiO2 Crit Value Called To Crit Value Called By Crit Value Read Back Blood Gas Notified Time Sodium 141 Potassium 4.5 Chloride 106 Carbon Dioxide 22 Anion Gap 18 BUN 54 H Creatinine 6.9 H Est GFR ( Amer) 9 Est GFR (Non-Af Amer) 7 POC Glucose (mg/dL) Random Glucose 269 H D Calcium 8.8 Phosphorus 6.2 H Magnesium 2.5 H Total Bilirubin 0.3 AST 22 ALT 13 Alkaline Phosphatase 105 Total Protein 6.3 Albumin 3.9 Globulin 2.5 Albumin/Globulin Ratio 1.6 Venous Blood Potassium Urine Color Yellow Urine Clarity Clear Urine pH 7.0 Ur Specific [place] 1.014 Urine Protein 2+ H Urine Glucose (UA) 3+ H Urine Ketones Negative Urine Blood Negative Urine Nitrate Negative Urine Bilirubin Negative Urine Urobilinogen Normal Ur Leukocyte Esterase Neg Urine WBC (Auto) 1 Urine RBC (Auto) 2 Ur Squamous Epith Cells < 1 Urine Bacteria Rare Hyaline Casts 0-2 B-Hydroxybutyrate 07/28/18 16:26 WBC RBC Hgb Hct MCV MCH MCHC RDW Plt Count MPV Neut % (Auto) Lymph % (Auto) [place] % (Auto) Eos % (Auto) Baso % (Auto) Neut # (Auto) Lymph # (Auto) [place] # (Auto) Eos # (Auto) Baso # (Auto) pO2 VBG pH VBG pCO2 VBG HCO3 VBG Total CO2 VBG O2 Sat (Calc) VBG Base Excess VBG Potassium Glucose Lactate FiO2 Crit Value Called To Crit Value Called By Crit Value Read Back Blood Gas Notified Time Sodium Potassium Chloride Carbon Dioxide Anion Gap BUN Creatinine Est GFR ( Amer) Est GFR (Non-Af Amer) POC Glucose (mg/dL) 154 H Random Glucose Calcium Phosphorus Magnesium Total Bilirubin AST ALT Alkaline Phosphatase Total Protein Albumin Globulin Albumin/Globulin Ratio Venous Blood Potassium Urine Color Urine Clarity Urine pH Ur Specific [place] Urine Protein Urine Glucose (UA) Urine Ketones Urine Blood Urine Nitrate Urine Bilirubin Urine Urobilinogen Ur Leukocyte Esterase Urine WBC (Auto) Urine RBC (Auto) Ur Squamous Epith Cells Urine Bacteria Hyaline Casts B-Hydroxybutyrate Assessment & Plan - Assessment and Plan (Free Text) Assessment: This is a 28yo F with extensive PMH, including poorly controlled IDDM, diabetic gastroparesis, ESRD on HD (MWF), seizure activity, and Munchausens who presented to with complaint of intractable vomiting. Nephro was consulted for continuation of HD. Plan: 1) poorly controlled IDDM 2) diabetic gastroparesis 3) ESRD on HD (MWF) 4) Hx of seizure activity 5) Munchausen's hx -Consent obtained for HD, will undergo today -elevated BG on admission, but no anion gap, no ketones in urine, so not DKA -mildly elevated K on admission (5.4), will recheck after finishing HD -does not appear to be fluid overloaded, active GI losses, received 1L NS bolus in ED on admission, avoid too-aggressive volume removal with HD today. Patient seen, reviewed, and discussed with attending, Dr. Nieves. <Migue Nieves - Last Filed: 07/29/18 08:47> Meds - Medications Medications: Current Medications Clonidine HCl (Catapres-Tts2 0.2 Mg/24 Hr) 1 patch TD QWK [facility] Hydromorphone HCl (Dilaudid) 0.5 mg IVP Q6H PRN PRN Reason: Pain, severe (8-10) Last Admin: 07/29/18 07:41 Dose: 0.5 mg Insulin Aspart (Novolog) 0 unit SC ACHS [facility]; Protocol Last Admin: 07/29/18 07:52 Dose: Not Given Insulin Aspart (Novolog) 7 unit SC QID [facility] Insulin Detemir (Levemir) 15 unit SC HS [facility] Last Admin: 07/28/18 22:53 Dose: 15 units Lorazepam (Ativan) 1 mg IVP Q6H PRN PRN Reason: Anxiety Last Admin: 07/29/18 01:12 Dose: 1 mg Metoclopramide HCl (Reglan) 10 mg IVP Q6 PRN PRN Reason: Nausea/Vomiting Ondansetron HCl (Zofran Inj) 4 mg IVP Q6 PRN PRN Reason: Nausea/Vomiting Last Admin: 07/29/18 07:41 Dose: 4 mg Pantoprazole Sodium (Protonix Ec Tab) 40 mg PO DAILY [facility] Last Admin: 07/28/18 09:10 Dose: 40 mg Results - Vital Signs Recent Vital Signs: Last Vital Signs Temp 98.2 F 07/28/18 23:25 Pulse 85 07/29/18 01:00 Resp 20 07/28/18 23:25 BP 168/110 H 07/28/18 23:25 Pulse Ox 96 07/28/18 23:25 - Labs Result Diagrams: 07/28/18 14:23 07/28/18 14:23 Labs: Laboratory Results - last 24 hr 07/27/18 07/28/18 07/28/18 21:13 06:06 12:37 WBC RBC Hgb Hct MCV MCH MCHC RDW Plt Count MPV Neut % (Auto) Lymph % (Auto) [place] % (Auto) Eos % (Auto) Baso % (Auto) Neut # (Auto) Lymph # (Auto) [place] # (Auto) Eos # (Auto) Baso # (Auto) Sodium Potassium Chloride Carbon Dioxide Anion Gap BUN Creatinine Est GFR ( Amer) Est GFR (Non-Af Amer) POC Glucose (mg/dL) 425 H* 221 H 244 H Random Glucose Calcium Phosphorus Magnesium Total Bilirubin AST ALT Alkaline Phosphatase Total Protein Albumin Globulin Albumin/Globulin Ratio 07/28/18 07/28/18 07/28/18 14:23 14:23 16:26 WBC 7.7 RBC 4.49 Hgb 11.8 D Hct 36.9 MCV 82.2 MCH 26.3 L MCHC 32.0 L RDW 17.9 H Plt Count 293 MPV 9.6 Neut % (Auto) 80.1 H Lymph % (Auto) 17.7 L [place] % (Auto) 1.4 Eos % (Auto) 0.0 Baso % (Auto) 0.8 Neut # (Auto) 6.1 Lymph # (Auto) 1.4 [place] # (Auto) 0.1 Eos # (Auto) 0.0 Baso # (Auto) 0.1 Sodium 141 Potassium 4.5 Chloride 106 Carbon Dioxide 22 Anion Gap 18 BUN 54 H Creatinine 6.9 H Est GFR ( Amer) 9 Est GFR (Non-Af Amer) 7 POC Glucose (mg/dL) 154 H Random Glucose 269 H D Calcium 8.8 Phosphorus 6.2 H Magnesium 2.5 H Total Bilirubin 0.3 AST 22 ALT 13 Alkaline Phosphatase 105 Total Protein 6.3 Albumin 3.9 Globulin 2.5 Albumin/Globulin Ratio 1.6 07/28/18 07/29/18 20:48 06:09 WBC RBC Hgb Hct MCV MCH MCHC RDW Plt Count MPV Neut % (Auto) Lymph % (Auto) [place] % (Auto) Eos % (Auto) Baso % (Auto) Neut # (Auto) Lymph # (Auto) [place] # (Auto) Eos # (Auto) Baso # (Auto) Sodium Potassium Chloride Carbon Dioxide Anion Gap BUN Creatinine Est GFR ( Amer) Est GFR (Non-Af Amer) POC Glucose (mg/dL) 170 H 134 H Random Glucose Calcium Phosphorus Magnesium Total Bilirubin AST ALT Alkaline Phosphatase Total Protein Albumin Globulin Albumin/Globulin Ratio Attending/Attestation - Attestation I have personally seen and examined this patient.: Yes I have fully participated in the care of the patient.: Yes I have reviewed all pertinent clinical information: Yes Notes (Text): Patient seen and examined; I agree with the resident's note as above with the following additions/edits: 28 yo F w/ pmh of htn, dm w/ gastroparesis and recurrent flares, nephrotic syndrome secondary to diabetic nephropathy, and ESRD on HD (MWF, at [facility] under our outpatient service), admitted with another gastroparesis flare; Patient reportedly had persistent hypoglycemia on outpatient HD 2 days ago; hypoglycemia did not resolved with PO juice and so IV dextrose was given; patient was reportedly stable at end of HD treatment; was encouraged to go to ED but refused; she also reports that she has been off her insulin pump since past ~1 week due to running out of supplies; She reports being well subsequently but says that vomiting started after eating pork chops; symptoms overall have resolved at time of encounter; Patient's labs indicative of hemoconcentration on admission; subsequently given IVF; no longer vomiting so we will hold further IVF to avoid volume overload (patient appears to be losing her residual renal function with decreased urination overall); -HD today per routine with 500 cc net UF; -Continue current BP meds (clonidine patch 0.2 mg and coreg 6.25 mg bid); will restart low dose losartan if BP high; -No need for EPO (hgb above goal);
[2018-07-28] MEDS: Insulin Detemir 100 units/ml Vial (Levemir) SC SCH (22:53)
[2018-07-29] MEDS: HYDROmorphone 0.5 mg/0.5 ml ISec IVP PRN ×3 (07:41→21:44)
[2018-07-29] MEDS: (Novolog) Insulin Aspart, Recombinant 100 u/ml 10 ml vial SC SCH ×4 (07:52→21:46)
[2018-07-29] MEDS: Pantoprazole 40 mg EC Tab PO SCH (09:28)
--- NOTE | 2018-07-29 11:53 | CP.PCM.PN ---
Subjective - Date & Time of Evaluation Date of Evaluation: 07/29/18 Time of Evaluation: 07:50 - Subjective Subjective: Nephro Progress Note for Dr. Ezequiel Nash DO PGY-3 Patient seen and examined at bedside. Underwent HD yesterday, with approx 500cc removed. As per HD report, pt became dizzy post-HD, more emesis. Today, continues to complain of nausea, emesis. Denies dysuria, hematuria, fevers, chills. Objective - Vital Signs/Intake and Output Vital Signs (last 24 hours): Temp Pulse Resp BP Pulse Ox 97.7 F 109 H 20 160/113 H 98 07/29/18 08:25 07/29/18 08:25 07/29/18 08:25 07/29/18 08:25 07/29/18 08:25 - Medications Medications: Current Medications Clonidine HCl (Catapres-Tts2 0.2 Mg/24 Hr) 1 patch TD QWK [facility] Hydromorphone HCl (Dilaudid) 0.5 mg IVP Q4H PRN PRN Reason: Pain, severe (8-10) Insulin Aspart (Novolog) 0 unit SC ACHS [facility]; Protocol Last Admin: 07/29/18 07:52 Dose: Not Given Insulin Aspart (Novolog) 7 unit SC QID [facility] Insulin Detemir (Levemir) 15 unit SC HS [facility] Last Admin: 07/28/18 22:53 Dose: 15 units Lorazepam (Ativan) 1 mg IVP Q6H PRN PRN Reason: Anxiety Last Admin: 07/29/18 09:28 Dose: 1 mg Losartan Potassium (Cozaar) 25 mg PO DAILY [facility] Last Admin: 07/29/18 09:32 Dose: 25 mg Metoclopramide HCl (Reglan) 10 mg IVP Q6 PRN PRN Reason: Nausea/Vomiting Ondansetron HCl (Zofran Inj) 4 mg IVP Q6 PRN PRN Reason: Nausea/Vomiting Last Admin: 07/29/18 07:41 Dose: 4 mg Pantoprazole Sodium (Protonix Ec Tab) 40 mg PO DAILY [facility] Last Admin: 07/29/18 09:28 Dose: 40 mg - Labs Labs: 07/28/18 14:23 07/28/18 14:23 - Additional Findings Additional findings: - Constitutional Appears: Non-toxic, Chronically Ill - Head Exam Head Exam: ATRAUMATIC, NORMAL INSPECTION, NORMOCEPHALIC - Eye Exam Eye Exam: EOMI. absent: Conjunctival injection, Scleral icterus - ENT Exam ENT Exam: Mucous Membranes Moist - Neck Exam Neck exam: Normal Exam - Respiratory Exam Respiratory Exam: Clear to Auscultation Bilateral, NORMAL BREATHING PATTERN. absent: Accessory Muscle Use, Chest Wall Tenderness, Decreased Breath Sounds, Rales, Rhonchi, Wheezes - Cardiovascular Exam Cardiovascular Exam: Tachycardia, REGULAR RHYTHM, +S1, +S2. absent: Bradycardia, JVD - GI/Abdominal Exam GI & Abdominal Exam: Hyperactive Bowel Sounds, Soft, Tenderness (mild diffuse tenderness) - Extremities Exam Extremities exam: Positive for: normal inspection, pedal pulses present. Negative for: calf tenderness, pedal edema - Back Exam Back exam: absent: CVA tenderness (L), CVA tenderness (R) - Neurological Exam awake and alert, follows commands appropriately, moving all extremities spontaneously - Psychiatric Exam Psychiatric exam: Anxious - Skin Skin Exam: Dry, Intact, Normal Color, Warm Assessment and Plan - Assessment and Plan (Free Text) Assessment: This is a 28yo F with extensive PMH, including poorly controlled IDDM, diabetic gastroparesis, ESRD on HD (MWF), seizure activity, and Munchausens who presented to with complaint of intractable vomiting. Nephro was consulted for continuation of HD. Plan: 1) poorly controlled IDDM 2) diabetic gastroparesis 3) ESRD on HD (MWF) 4) Hx of seizure activity 5) Munchausen's hx 6) HTN -Consent obtained for HD, will undergo today -elevated BG on admission, but no anion gap, no ketones in urine, so not DKA; pt now admitting ran out of supplies for home insulin pump -mildly elevated K on admission (5.4), pending recheck today -does not appear to be fluid overloaded, active GI losses, received 1L NS bolus in ED on admission and not overtly dehydrated so can hold off on further IVF for now, prevent fluid overload -Hgb 11.8, 13.9 yesterday likely represented hemoconcentration from emesis episodes -continue home antihypertensive regimen; mildly elevated BP this AM (systolic 160's), but likely acute elevation 2/2 emesis episodes/distress Patient reviewed and discussed with attending, Dr. Nieves.
[2018-07-29] MEDS ORDERED: Dextrose 50% SYRINGE Inj (50 ml) IV PRN (15:25)
--- NOTE | 2018-07-29 15:25 | CP.PCM.PN ---
Subjective - Date & Time of Evaluation Date of Evaluation: 07/29/18 Time of Evaluation: 15:19 - Subjective Subjective: Dr King Service Pt s/e at bedside, pt has not been tolerating foods well, however is slowly re feeding herself. Pt still crying and complains of abd pain. denies CP SOB FC. still nauseas and still complains of non-bloody vomiting Objective - Vital Signs/Intake and Output Vital Signs (last 24 hours): Temp Pulse Resp BP Pulse Ox 97.7 F 109 H 20 160/113 H 98 07/29/18 08:25 07/29/18 08:25 07/29/18 08:25 07/29/18 08:25 07/29/18 08:25 - Medications Medications: Current Medications Clonidine HCl (Catapres-Tts2 0.2 Mg/24 Hr) 1 patch TD QWK [facility] Hydromorphone HCl (Dilaudid) 0.5 mg IVP Q4H PRN PRN Reason: Pain, severe (8-10) Last Admin: 07/29/18 13:15 Dose: 0.5 mg Insulin Aspart (Novolog) 0 unit SC ACHS [facility]; Protocol Last Admin: 07/29/18 13:14 Dose: 6 units Insulin Aspart (Novolog) 7 unit SC QID [facility] Insulin Detemir (Levemir) 15 unit SC HS [facility] Last Admin: 07/28/18 22:53 Dose: 15 units Lorazepam (Ativan) 1 mg IVP Q8H PRN PRN Reason: Anxiety Losartan Potassium (Cozaar) 25 mg PO DAILY [facility] Last Admin: 07/29/18 09:32 Dose: 25 mg Metoclopramide HCl (Reglan) 10 mg IVP Q6 PRN PRN Reason: Nausea/Vomiting Ondansetron HCl (Zofran Inj) 4 mg IVP Q6 PRN PRN Reason: Nausea/Vomiting Last Admin: 07/29/18 07:41 Dose: 4 mg Pantoprazole Sodium (Protonix Ec Tab) 40 mg PO DAILY [facility] Last Admin: 07/29/18 09:28 Dose: 40 mg - Labs Labs: 07/28/18 14:23 07/28/18 14:23 - Additional Findings Additional findings: - Constitutional Appears: Non-toxic Additional comments: actively spitting, nurses note patient is sticking finger down throat when mom was in bathroom - Head Exam Head Exam: ATRAUMATIC, NORMAL INSPECTION, NORMOCEPHALIC - Eye Exam Eye Exam: EOMI, Normal appearance, PERRL Pupil Exam: NORMAL ACCOMODATION - ENT Exam ENT Exam: Mucous Membranes Moist, Normal Exam - Neck Exam Neck exam: Positive for: Normal Inspection Additional comments: R chest dialysis catheter, bandaged c/d/i. no surrounding erythema - Respiratory Exam Respiratory Exam: Clear to Auscultation Bilateral, NORMAL BREATHING PATTERN. absent: Rales, Rhonchi, Wheezes - Cardiovascular Exam Cardiovascular Exam: Tachycardia, REGULAR RHYTHM, +S1, +S2 - GI/Abdominal Exam GI & Abdominal Exam: Hypoactive Bowel Sounds, Soft, Tenderness. absent: Distended Additional comments: minimal TTP when patient is unaware - Extremities Exam Extremities exam: Positive for: normal inspection. Negative for: calf tenderness, pedal edema Additional comments: L UE AVF, palpable thrill, audible bruit, no erythema - Back Exam Back exam: NORMAL INSPECTION. absent: CVA tenderness (L), CVA tenderness (R) - Neurological Exam Neurological exam: Alert, Oriented x3, Reflexes Normal - Psychiatric Exam Psychiatric exam: Depressed, Flat Affect - Skin Skin Exam: Dry, Intact, Normal Color, Warm Additional comments: multiple hyperpigmented scars on lower face/neck tattoos old, well healed Assessment and Plan - Assessment and Plan (Free Text) Assessment: 28yo F PMH uncontrolled DM with gastroparesis, ESRD on HD, Munchausen's, HTN admitted for intractable vomiting x1 day. Plan: Intractable vomiting, acute likely 2/2 diabetic gastroparesis Hgb 13.9 OA VBG pH 7.32, lactate 3.1 UA 2+ protein, 3+ glucose b-hydroxybutyrate 1.21 Morphine 8, Ativan 2, Dilaudid 0.5 given - alternate Zofran 4 and Reglan 10 q6 prn - NS@100 - f/u Blood Cx - Liquid Diet IDDM, uncontrolled Diabetic Gastroparesis Hgb A1c 07/05/18: 63.1 BG 536 OA - hold home medications - Accuchecks ACHS - ISS med, holding home insulin 7u ACHS - hypoglycemia protocol - Levemir 15u HS ESRD on HD (MWF) Cr 5.8 OA. Last HD yesterday 07/26/18 without issues - Nephro consulted: Dr. Nieves - help appreciated Hypertension BP 231/137 OA, 142/89 when transferred to floor - home Clonidine 0.2 TD weekly PPx - DVT: CI due to hematemesis, SCDs only - GI: home Protonix 40mg po daily - Diet: NPO except medication, ADAT DISPO: pt undergoing HD today, went hypoglycemic gluc 20 today. encouranged PO apple juice, lowered ISS to medium, hypoglecemic protocol in place CK PGY1 d/w Dr. King
[2018-07-29] MEDS ORDERED: Dextrose 5%/0.9% NS 1,000 ML IV SCH (16:00)
--- NOTE | 2018-07-29 19:46 | CP.PCM.CON ---
History of Present Illness - History of Present Illness History of Present Illness: 28F with PMHx IDDM, diabetic gastroparesis, ESRD, seizure hx, anxiety, Munchausen's, presented to [facility] for intractable vomiting. Vascular surgery consulted for non-functioning AVF. PMHx: IDDM, diabetic gastroparesis, ESRD, seizure hx, anxiety, Munchausen's PSHx: appy, AVF allergies: NKDA SocHx: Denies alcohol/tobacco/drug use Past Patient History - Infectious Disease Hx of Infectious Diseases: None - Past Medical History & Family History Past Medical History?: Yes - Past Social History Smoking Status: Never Smoked Alcohol: None Drugs: Denies - CARDIAC Hx Hypertension: Yes - PULMONARY Hx Bronchitis: Yes - NEUROLOGICAL Hx Seizures: Yes (Pseudo seizures?) - HEENT Hx HEENT Problems: Yes Hx Cataracts: Yes - RENAL Hx Chronic Kidney Disease: Yes - ENDOCRINE/METABOLIC Hx Endocrine Disorders: Yes Hx Diabetes Mellitus Type 2: Yes (on insulin pump) - HEMATOLOGICAL/ONCOLOGICAL Hx Anemia: Yes Hx Human Immunodeficiency Virus (HIV): No - INTEGUMENTARY Hx Dermatological Problems: No - MUSCULOSKELETAL/RHEUMATOLOGICAL Hx Musculoskeletal Disorders: Yes Hx Falls: Yes - GASTROINTESTINAL Hx Gastrointestinal Disorders: Yes (SEE COMMENT) Other/Comment: gastroparesis - GENITOURINARY/GYNECOLOGICAL Hx Genitourinary Disorders: No - PSYCHIATRIC Hx Anxiety: Yes Hx Depression: Yes Hx Substance Use: No - SURGICAL HISTORY Hx Appendectomy: Yes - ANESTHESIA Hx Anesthesia: Yes Hx Anesthesia Reactions: No Hx Malignant Hyperthermia: No Meds Allergies/Adverse Reactions: Allergies Allergy/AdvReac Type Severity Reaction Status Date / Time No Known Allergies Allergy Verified 07/27/18 16:38 - Medications Medications: Current Medications Clonidine HCl (Catapres-Tts2 0.2 Mg/24 Hr) 1 patch TD QWK [facility] Dextrose (Dextrose 50% Inj) 0 ml IV STAT PRN; Protocol PRN Reason: Hypoglycemia Protocol Dextrose (Glutose 15) 0 gm PO ONCE PRN; Protocol PRN Reason: Hypoglycemia Protocol Glucagon (Glucagen Diagnostic Kit) 0 mg IM STAT PRN; Protocol PRN Reason: Hypoglycemia Protocol Hydromorphone HCl (Dilaudid) 0.5 mg IVP Q4H PRN PRN Reason: Pain, severe (8-10) Last Admin: 07/29/18 13:15 Dose: 0.5 mg Dextrose (Dextrose 5% In Water 1000 Ml) 1,000 mls @ 0 mls/hr IV .Q0M PRN; P rotocol PRN Reason: Hypoglycemia Protocol Dextrose/Sodium Chloride (Dextrose 5%/0.9% Ns 1000 Ml) 1,000 mls @ 50 mls/hr IV .Q20H [facility] Last Admin: 07/29/18 16:27 Dose: 50 mls/hr Insulin Aspart (Novolog) 7 unit SC QID [facility] Insulin Aspart (Novolog) 0 unit SC ACHS [facility]; Protocol Last Admin: 07/29/18 17:10 Dose: Not Given Insulin Detemir (Levemir) 15 unit SC HS [facility] Last Admin: 07/28/18 22:53 Dose: 15 units Lorazepam (Ativan) 1 mg IVP Q8H PRN PRN Reason: Anxiety Losartan Potassium (Cozaar) 25 mg PO DAILY [facility] Last Admin: 07/29/18 09:32 Dose: 25 mg Metoclopramide HCl (Reglan) 10 mg IVP Q6 PRN PRN Reason: Nausea/Vomiting Ondansetron HCl (Zofran Inj) 4 mg IVP Q6 PRN PRN Reason: Nausea/Vomiting Last Admin: 07/29/18 07:41 Dose: 4 mg Pantoprazole Sodium (Protonix Ec Tab) 40 mg PO DAILY [facility] Last Admin: 07/29/18 09:28 Dose: 40 mg Results - Vital Signs Recent Vital Signs: Last Vital Signs Temp 97.6 F 07/29/18 15:27 Pulse 101 H 07/29/18 15:27 Resp 18 07/29/18 15:27 BP 147/101 H 07/29/18 15:27 Pulse Ox 100 07/29/18 15:27 - Labs Result Diagrams: 07/28/18 14:23 07/28/18 14:23 Labs: Laboratory Results - last 24 hr 07/27/18 07/28/18 07/28/18 21:13 06:06 12:37 POC Glucose (mg/dL) 425 H* 221 H 244 H 07/28/18 07/29/18 07/29/18 20:48 06:09 11:56 POC Glucose (mg/dL) 170 H 134 H 169 H 07/29/18 07/29/18 07/29/18 15:20 15:22 15:54 POC Glucose (mg/dL) 24 L* < 20 L* 98 Assessment & Plan - Assessment and Plan (Free Text) Assessment: 28F with ESRD with malfunctioning AVF Plan: -Plan for OR Thursday for revision of AV fistula -Left upper extremity precautions -Further recs per Dr. Flora Ma PGY3
[2018-07-29] MEDS: Insulin Detemir 100 units/ml Vial (Levemir) SC SCH (21:46)
[2018-07-30] MEDS ORDERED: (Novolin R) Insulin Human Regular 100 units/ml vial SC STA (02:37)
[2018-07-30] MEDS: HYDROmorphone 0.5 mg/0.5 ml ISec IVP PRN ×4 (05:07→21:27)
[2018-07-30] MEDS ORDERED: Dextrose 50% SYRINGE Inj (50 ml) IV STA (05:39)
[2018-07-30] MEDS: (Novolog) Insulin Aspart, Recombinant 100 u/ml 10 ml vial SC SCH ×3 (07:32→22:33)
[2018-07-30 10:34] LABS: BASO # 0.2 K/uL (0.0-0.2); BASO % 2.4 % (0.0-2.0); EOS # 0.1 K/uL (0.0-0.7); EOS % 1.2 % (0.0-4.0); HEMOGLOBIN 12.4 g/dL (11.0-16.0); LYMPH # 2.8 K/uL (1.0-4.3); LYMPH % 41.7 % (20.0-40.0); MEAN CELL VOLUME 82.2 fL (81.0-99.0); MEAN CORPUSCULAR HEMOGLOBIN 26.6 pg (27.0-31.0); MEAN CORPUSCULAR HGB CONC 32.4 g/dL (33.0-37.0); MEAN PLATELET VOLUME 9.3 fL (7.2-11.7); MONO # 0.5 K/uL (0.0-0.8); NEUT # 3.2 K/uL (1.8-7.0); NEUT % 47.7 % (50.0-75.0); NRBC % 0.2 % (0.0-2.0); RBC 4.68 Mil/uL (3.80-5.20); RED CELL DISTRIBUTION WIDTH 17.6 % (11.5-14.5); WHITE BLOOD COUNT 6.7 K/uL (4.8-10.8)
--- NOTE | 2018-07-30 10:37 | CP.PCM.PN ---
Subjective - Date & Time of Evaluation Date of Evaluation: 07/30/18 Time of Evaluation: 10:33 - Subjective Subjective: Dr King Service- IM Pt s/e at bedside. Pt is tolerating liquid diet and will now try chopped foods, pt was told by Sx team she will have her AVF revision on thursday, understands and agrees with plan. Denies CP SOB FC at this current time, pt is feeling moderately improved with current medication regimen. still feels nauseas and sensation to vomit but no episodes today. Objective - Vital Signs/Intake and Output Vital Signs (last 24 hours): Temp Pulse Resp BP Pulse Ox 98.2 F 84 20 102/66 96 07/30/18 07:00 07/30/18 07:00 07/30/18 07:00 07/30/18 07:00 07/30/18 07:00 Intake and Output: 07/30/18 07/30/18 06:59 18:59 Intake Total 420 Balance 420 - Medications Medications: Current Medications Clonidine HCl (Catapres-Tts2 0.2 Mg/24 Hr) 1 patch TD QWK [facility] Dextrose (Dextrose 50% Inj) 0 ml IV STAT PRN; Protocol PRN Reason: Hypoglycemia Protocol Dextrose (Glutose 15) 0 gm PO ONCE PRN; Protocol PRN Reason: Hypoglycemia Protocol Glucagon (Glucagen Diagnostic Kit) 0 mg IM STAT PRN; Protocol PRN Reason: Hypoglycemia Protocol Hydromorphone HCl (Dilaudid) 0.5 mg IVP Q4H PRN PRN Reason: Pain, severe (8-10) Last Admin: 07/30/18 08:55 Dose: 0.5 mg Dextrose (Dextrose 5% In Water 1000 Ml) 1,000 mls @ 0 mls/hr IV .Q0M PRN; Pro tocol PRN Reason: Hypoglycemia Protocol Dextrose/Sodium Chloride (Dextrose 5%/0.9% Ns 1000 Ml) 1,000 mls @ 50 mls/hr IV .Q20H [facility] Last Admin: 07/29/18 16:27 Dose: 50 mls/hr Insulin Aspart (Novolog) 7 unit SC QID [facility] Insulin Aspart (Novolog) 0 unit SC ACHS [facility]; Protocol Last Admin: 07/30/18 07:32 Dose: Not Given Insulin Detemir (Levemir) 12 unit SC HS [facility] Lorazepam (Ativan) 1 mg IVP Q8H PRN PRN Reason: Anxiety Last Admin: 07/30/18 05:51 Dose: 1 mg Losartan Potassium (Cozaar) 25 mg PO DAILY [facility] Last Admin: 07/29/18 09:32 Dose: 25 mg Metoclopramide HCl (Reglan) 10 mg IVP Q6 PRN PRN Reason: Nausea/Vomiting Ondansetron HCl (Zofran Inj) 4 mg IVP Q6 PRN PRN Reason: Nausea/Vomiting Last Admin: 07/30/18 05:10 Dose: 4 mg Pantoprazole Sodium (Protonix Ec Tab) 40 mg PO DAILY [facility] Last Admin: 07/29/18 09:28 Dose: 40 mg - Labs Labs: 07/28/18 14:23 07/28/18 14:23 - Additional Findings Additional findings: - Constitutional Appears: Non-toxic Additional comments: actively spitting, nurses note patient is sticking finger down throat when mom was in bathroom - Head Exam Head Exam: ATRAUMATIC, NORMAL INSPECTION, NORMOCEPHALIC - Eye Exam Eye Exam: EOMI, Normal appearance, PERRL Pupil Exam: NORMAL ACCOMODATION - ENT Exam ENT Exam: Mucous Membranes Moist, Normal Exam - Neck Exam Neck exam: Positive for: Normal Inspection Additional comments: R chest dialysis catheter, bandaged c/d/i. no surrounding erythema - Respiratory Exam Respiratory Exam: Clear to Auscultation Bilateral, NORMAL BREATHING PATTERN. absent: Rales, Rhonchi, Wheezes - Cardiovascular Exam Cardiovascular Exam: Tachycardia, REGULAR RHYTHM, +S1, +S2 - GI/Abdominal Exam GI & Abdominal Exam: Hypoactive Bowel Sounds, Soft, Tenderness. absent: Distended Additional comments: minimal TTP when patient is unaware - Extremities Exam Extremities exam: Positive for: normal inspection. Negative for: calf tender ness, pedal edema Additional comments: L UE AVF, palpable thrill, audible bruit, no erythema - Back Exam Back exam: NORMAL INSPECTION. absent: CVA tenderness (L), CVA tenderness (R) - Neurological Exam Neurological exam: Alert, Oriented x3, Reflexes Normal - Psychiatric Exam Psychiatric exam: Depressed, Flat Affect - Skin Skin Exam: Dry, Intact, Normal Color, Warm Additional comments: multiple hyperpigmented scars on lower face/neck tattoos old, well healed Assessment and Plan - Assessment and Plan (Free Text) Assessment: 28yo F PMH uncontrolled DM with gastroparesis, ESRD on HD, Munchausen's, HTN admitted for intractable vomiting x1 day. Plan: Intractable vomiting, acute likely 2/2 diabetic gastroparesis Hgb 13.9 OA VBG pH 7.32, lactate 3.1 UA 2+ protein, 3+ glucose b-hydroxybutyrate 1.21 Morphine 8, Ativan 2, Dilaudid 0.5 given - alternate Zofran 4 and Reglan 10 q6 prn - NS@100 - f/u Blood Cx - chopped foods diet IDDM, uncontrolled Diabetic Gastroparesis Hgb A1c 07/05/18: 63.1 BG 536 OA - hold home medications - Accuchecks ACHS - ISS low, holding home insulin 7u ACHS - hypoglycemia protocol - Levemir 12u HS ESRD on HD (MWF) Cr 5.8 OA. Last HD yesterday 07/29/18 without issues - Nephro consulted: Dr. Nieves - help appreciated Hypertension BP 231/137 OA, 142/89 when transferred to floor - home Clonidine 0.2 TD weekly Pain/Anxiety -Dialudid tapered to 0.5 q5h ivp -Ativan tapered to 1 q12 ivp PPx - DVT: CI due to hematemesis, SCDs only - GI: home Protonix 40mg po daily - Diet: chopped food diet DISPO: ISS low, Levemir decreased to 12 HS b/c of overnight hypoglycemia, possible autonomic dysfunction, tapering ativan and dilaudid CK PGY1 d/w Dr. King
[2018-07-30 10:54] LABS: ALB/GLOB RATIO 1.4 (1.0-2.1); ALBUMIN 3.7 g/dL (3.5-5.0); CALCIUM 8.7 mg/dl (8.6-10.4)
[2018-07-30] MEDS: Pantoprazole 40 mg EC Tab PO SCH (14:50)
--- NOTE | 2018-07-30 17:11 | CP.PCM.PN ---
Subjective - Date & Time of Evaluation Date of Evaluation: 07/30/18 Time of Evaluation: 07:15 - Subjective Subjective: Vascular surgery Dr. Hines Patient seen and examined this am at bedside. No complaints at this time. Discussed plan for surgery on Thursday, patient agrees Objective - Vital Signs/Intake and Output Vital Signs (last 24 hours): Temp Pulse Resp BP Pulse Ox 98.5 F 88 18 151/98 H 98 07/30/18 13:45 07/30/18 13:45 07/30/18 13:45 07/30/18 13:45 07/30/18 13:45 Intake and Output: 07/30/18 07/30/18 06:59 18:59 Intake Total 420 Balance 420 - Medications Medications: Current Medications Clonidine HCl (Catapres-Tts2 0.2 Mg/24 Hr) 1 patch TD QWK [facility] Dextrose (Dextrose 50% Inj) 0 ml IV STAT PRN; Protocol PRN Reason: Hypoglycemia Protocol Dextrose (Glutose 15) 0 gm PO ONCE PRN; Protocol PRN Reason: Hypoglycemia Protocol Glucagon (Glucagen Diagnostic Kit) 0 mg IM STAT PRN; Protocol PRN Reason: Hypoglycemia Protocol Hydromorphone HCl (Dilaudid) 0.5 mg IVP Q5H PRN PRN Reason: Pain, severe (8-10) Last Admin: 07/30/18 14:50 Dose: 0.5 mg Dextrose (Dextrose 5% In Water 1000 Ml) 1,000 mls @ 0 mls/hr IV .Q0M PRN; Protocol PRN Reason: Hypoglycemia Protocol Dextrose/Sodium Chloride (Dextrose 5%/0.9% Ns 1000 Ml) 1,000 mls @ 50 mls/hr IV .Q20H [facility] Last Admin: 07/29/18 16:27 Dose: 50 mls/hr Insulin Aspart (Novolog) 7 unit SC QID [facility] Insulin Aspart (Novolog) 0 unit SC ACHS [facility]; Protocol Last Admin: 07/30/18 07:32 Dose: Not Given Insulin Detemir (Levemir) 12 unit SC HS [facility] Lorazepam (Ativan) 1 mg IVP Q12H PRN PRN Reason: Anxiety Losartan Potassium (Cozaar) 25 mg PO DAILY [facility] Last Admin: 07/30/18 14:52 Dose: 25 mg Metoclopramide HCl (Reglan) 10 mg IVP Q6 PRN PRN Reason: Nausea/Vomiting Ondansetron HCl (Zofran Inj) 4 mg IVP Q6 PRN PRN Reason: Nausea/Vomiting Last Admin: 07/30/18 15:28 Dose: 4 mg Pantoprazole Sodium (Protonix Ec Tab) 40 mg PO DAILY [facility] Last Admin: 07/30/18 14:50 Dose: 40 mg - Labs Labs: 07/30/18 10:30 07/30/18 10:30 - Constitutional Appears: Well, Non-toxic, No Acute Distress - Head Exam Head Exam: ATRAUMATIC, NORMOCEPHALIC - Eye Exam Eye Exam: EOMI - ENT Exam ENT Exam: Mucous Membranes Moist - Respiratory Exam Respiratory Exam: NORMAL BREATHING PATTERN - Cardiovascular Exam Cardiovascular Exam: REGULAR RHYTHM - GI/Abdominal Exam GI & Abdominal Exam: Soft. absent: Tenderness - Extremities Exam Extremities Exam: Pedal Edema. absent: Calf Tenderness - Neurological Exam Neurological Exam: Alert, Awake, Oriented x3 - Psychiatric Exam Psychiatric exam: Normal Affect, Normal Mood - Skin Skin Exam: Dry, Intact, Normal Color, Warm Assessment and Plan - Assessment and Plan (Free Text) Assessment: 28 yr old female with ESRD in need of jail dialysis access Plan: - plan for OR Thursday for shunt vs revision of AVF - further recs per Dr. Flora Narayanan, PGY 1
--- NOTE | 2018-07-30 18:44 | CP.PCM.PN ---
<Oracio Nash - Last Filed: 07/30/18 18:40> Subjective - Date & Time of Evaluation Date of Evaluation: 07/30/18 Time of Evaluation: 08:00 - Subjective Subjective: Nephro Progress Note for Dr. Nieves Service Oracio Nash DO, IM PGY-3 Patient seen and examined at bedside. Pending HD again today. Pending assessment of fistula vs graft placement by Vascular surgery Thursday. Still complaining of nausea, but reports feeling better overall. Denies chest pain, shortness of breath, hematuria, hematemesis. Objective - Vital Signs/Intake and Output Vital Signs (last 24 hours): Temp Pulse Resp BP Pulse Ox 98.6 F 88 20 136/89 97 07/30/18 15:00 07/30/18 15:00 07/30/18 15:00 07/30/18 15:00 07/30/18 15:00 Intake and Output: 07/30/18 07/30/18 06:59 18:59 Intake Total 420 Balance 420 - Medications Medications: Current Medications Clonidine HCl (Catapres-Tts2 0.2 Mg/24 Hr) 1 patch TD QWK [facility] Dextrose (Dextrose 50% Inj) 0 ml IV STAT PRN; Protocol PRN Reason: Hypoglycemia Protocol Dextrose (Glutose 15) 0 gm PO ONCE PRN; Protocol PRN Reason: Hypoglycemia Protocol Glucagon (Glucagen Diagnostic Kit) 0 mg IM STAT PRN; Protocol PRN Reason: Hypoglycemia Protocol Hydromorphone HCl (Dilaudid) 0.5 mg IVP Q5H PRN PRN Reason: Pain, severe (8-10) Last Admin: 07/30/18 14:50 Dose: 0.5 mg Dextrose (Dextrose 5% In Water 1000 Ml) 1,000 mls @ 0 mls/hr IV .Q0M PRN; Protocol PRN Reason: Hypoglycemia Protocol Dextrose/Sodium Chloride (Dextrose 5%/0.9% Ns 1000 Ml) 1,000 mls @ 50 mls/hr IV .Q20H [facility] Last Admin: 07/29/18 16:27 Dose: 50 mls/hr Insulin Aspart (Novolog) 7 unit SC QID [facility] Insulin Aspart (Novolog) 0 unit SC ACHS [facility]; Protocol Last Admin: 07/30/18 17:45 Dose: 3 units Insulin Detemir (Levemir) 12 unit SC HS [facility] Lorazepam (Ativan) 1 mg IVP Q12H PRN PRN Reason: Anxiety Losartan Potassium (Cozaar) 25 mg PO DAILY [facility] Last Admin: 07/30/18 14:52 Dose: 25 mg Metoclopramide HCl (Reglan) 10 mg IVP Q6 PRN PRN Reason: Nausea/Vomiting Ondansetron HCl (Zofran Inj) 4 mg IVP Q6 PRN PRN Reason: Nausea/Vomiting Last Admin: 07/30/18 15:28 Dose: 4 mg Pantoprazole Sodium (Protonix Ec Tab) 40 mg PO DAILY [facility] Last Admin: 07/30/18 14:50 Dose: 40 mg - Labs Labs: 07/30/18 10:30 07/30/18 10:30 - Additional Findings Additional findings: - Constitutional Appears: Non-toxic, Chronically Ill - Head Exam Head Exam: ATRAUMATIC, NORMAL INSPECTION, NORMOCEPHALIC - Eye Exam Eye Exam: EOMI. absent: Conjunctival injection, Scleral icterus - ENT Exam ENT Exam: Mucous Membranes Moist - Neck Exam Neck exam: Normal Exam - Respiratory Exam Respiratory Exam: Clear to Auscultation Bilateral, NORMAL BREATHING PATTERN. absent: Accessory Muscle Use, Chest Wall Tenderness, Decreased Breath Sounds, Rales, Rhonchi, Wheezes - Cardiovascular Exam Cardiovascular Exam: RRR, +S1, +S2. absent: Tachycardia/Bradycardia, JVD - GI/Abdominal Exam GI & Abdominal Exam: Hyperactive Bowel Sounds, Soft, Tenderness (mild diffuse tenderness) - Extremities Exam Extremities exam: Positive for: normal inspection, pedal pulses present. Negative for: calf tenderness, pedal edema - Back Exam Back exam: absent: CVA tenderness (L), CVA tenderness (R) - Neurological Exam awake and alert, follows commands appropriately, moving all extremities spontaneously - Psychiatric Exam Psychiatric exam: Anxious - Skin Skin Exam: Dry, Intact, Normal Color, Warm Assessment and Plan - Assessment and Plan (Free Text) Assessment: This is a 28yo F with extensive PMH, including poorly controlled IDDM, diabetic gastroparesis, ESRD on HD (MWF), seizure activity, and Munchausens who presented to with complaint of intractable vomiting. Nephro was consulted for continuation of HD. Plan: 1) poorly controlled IDDM 2) diabetic gastroparesis 3) ESRD on HD (MWF) 4) Hx of seizure activity 5) Munchausen's hx 6) HTN -HD again today -elevated BG on admission, but no anion gap, no ketones in urine, so not DKA; pt now admitting ran out of supplies for home insulin pump -hyperkalemia from admission resolved, K 4.3 today -tolerating PO diet, no indication for IVF at this time -continue home antihypertensive regimen; mildly elevated BP this AM (systolic 160's), but likely acute elevation 2/2 emesis episodes/distress Patient reviewed and discussed with attending, Dr. Nieves. <Migue Nieves - Last Filed: 07/31/18 08:00> Objective - Vital Signs/Intake and Output Vital Signs (last 24 hours): Temp Pulse Resp BP Pulse Ox 97.9 F 106 H 20 147/102 H 97 07/30/18 23:20 07/30/18 23:20 07/30/18 23:20 07/30/18 23:20 07/30/18 23:20 - Medications Medications: Current Medications Carvedilol (Coreg) 6.25 mg PO BID [facility] Clonidine HCl (Catapres-Tts2 0.2 Mg/24 Hr) 1 patch TD QWK [facility] Dextrose (Dextrose 50% Inj) 0 ml IV STAT PRN; Protocol PRN Reason: Hypoglycemia Protocol Dextrose (Glutose 15) 0 gm PO ONCE PRN; Protocol PRN Reason: Hypoglycemia Protocol Glucagon (Glucagen Diagnostic Kit) 0 mg IM STAT PRN; Protocol PRN Reason: Hypoglycemia Protocol Hydromorphone HCl (Dilaudid) 0.5 mg IVP Q5H PRN PRN Reason: Pain, severe (8-10) Last Admin: 07/30/18 21:27 Dose: 0.5 mg Dextrose (Dextrose 5% In Water 1000 Ml) 1,000 mls @ 0 mls/hr IV .Q0M PRN; Protocol PRN Reason: Hypoglycemia Protocol Dextrose/Sodium Chloride (Dextrose 5%/0.9% Ns 1000 Ml) 1,000 mls @ 50 mls/hr IV .Q20H [facility] Last Admin: 07/29/18 16:27 Dose: 50 mls/hr Insulin Aspart (Novolog) 7 unit SC QID [facility] Insulin Aspart (Novolog) 0 unit SC ACHS [facility]; Protocol Last Admin: 07/31/18 06:48 Dose: 10 units Insulin Detemir (Levemir) 12 unit SC HS [facility] Last Admin: 07/30/18 22:33 Dose: 12 units Lorazepam (Ativan) 1 mg IVP Q12H PRN PRN Reason: Anxiety Last Admin: 07/30/18 22:38 Dose: 1 mg Losartan Potassium (Cozaar) 25 mg PO DAILY [facility] Last Admin: 07/30/18 14:52 Dose: 25 mg Metoclopramide HCl (Reglan) 10 mg IVP Q6 PRN PRN Reason: Nausea/Vomiting Ondansetron HCl (Zofran Inj) 4 mg IVP Q6 PRN PRN Reason: Nausea/Vomiting Last Admin: 07/30/18 22:33 Dose: 4 mg Pantoprazole Sodium (Protonix Ec Tab) 40 mg PO DAILY [facility] Last Admin: 07/30/18 14:50 Dose: 40 mg - Labs Labs: 07/30/18 10:30 07/30/18 10:30 Attending/Attestation - Attestation I have personally seen and examined this patient.: Yes I have fully participated in the care of the patient.: Yes I have reviewed all pertinent clinical information, including history, physical exam and plan: Yes Notes (Text): Patient seen and examined; I agree with the resident's note as above with the following additions/edits: Patient seen on HD today; admitted with another gastroparesis flare, although n ot as severe this time; tolerating liquids; reported good amount of urination earlier today; Stable electrolyte and volume status; goal 500 cc net UF today; BP control erratic; will maintain on clonidine patch 0.2, coreg 6.25 bid and losartan 25 daily; Discussed with vas surgeon regarding non-maturing AVF; will likely need AVG, tentatively scheduled for Thursday;
[2018-07-30] MEDS: Insulin Detemir 100 units/ml Vial (Levemir) SC SCH (22:33)
--- NOTE | 2018-07-31 02:40 | CP.PCM.PN ---
Subjective - Date & Time of Evaluation Date of Evaluation: 07/31/18 Time of Evaluation: 06:45 - Subjective Subjective: PGY-[address] King Patient is seen and examined at bedside. Patient says she gets on and off nausea and headaches, she has no complaints at this time. Patient states has not gone to the bathroom in 6 days. Denies fever, chills, chest pain, sob. Objective - Vital Signs/Intake and Output Vital Signs (last 24 hours): Temp Pulse Resp BP Pulse Ox 97.9 F 106 H 20 147/102 H 97 07/30/18 23:20 07/30/18 23:20 07/30/18 23:20 07/30/18 23:20 07/30/18 23:20 - Medications Medications: Current Medications Clonidine HCl (Catapres-Tts2 0.2 Mg/24 Hr) 1 patch TD QWK [facility] Dextrose (Dextrose 50% Inj) 0 ml IV STAT PRN; Protocol PRN Reason: Hypoglycemia Protocol Dextrose (Glutose 15) 0 gm PO ONCE PRN; Protocol PRN Reason: Hypoglycemia Protocol Glucagon (Glucagen Diagnostic Kit) 0 mg IM STAT PRN; Protocol PRN Reason: Hypoglycemia Protocol Hydromorphone HCl (Dilaudid) 0.5 mg IVP Q5H PRN PRN Reason: Pain, severe (8-10) Last Admin: 07/30/18 21:27 Dose: 0.5 mg Dextrose (Dextrose 5% In Water 1000 Ml) 1,000 mls @ 0 mls/hr IV .Q0M PRN; Protocol PRN Reason: Hypoglycemia Protocol Dextrose/Sodium Chloride (Dextrose 5%/0.9% Ns 1000 Ml) 1,000 mls @ 50 mls/hr IV .Q20H [facility] Last Admin: 07/29/18 16:27 Dose: 50 mls/hr Insulin Aspart (Novolog) 7 unit SC QID [facility] Insulin Aspart (Novolog) 0 unit SC ACHS [facility]; Protocol Last Admin: 07/30/18 22:33 Dose: 3 units Insulin Detemir (Levemir) 12 unit SC HS [facility] Last Admin: 07/30/18 22:33 Dose: 12 units Lorazepam (Ativan) 1 mg IVP Q12H PRN PRN Reason: Anxiety Last Admin: 07/30/18 22:38 Dose: 1 mg Losartan Potassium (Cozaar) 25 mg PO DAILY [facility] Last Admin: 07/30/18 14:52 Dose: 25 mg Metoclopramide HCl (Reglan) 10 mg IVP Q6 PRN PRN Reason: Nausea/Vomiting Ondansetron HCl (Zofran Inj) 4 mg IVP Q6 PRN PRN Reason: Nausea/Vomiting Last Admin: 07/30/18 22:33 Dose: 4 mg Pantoprazole Sodium (Protonix Ec Tab) 40 mg PO DAILY [facility] Last Admin: 07/30/18 14:50 Dose: 40 mg - Labs Labs: 07/30/18 10:30 07/30/18 10:30 - Constitutional Appears: Non-toxic, No Acute Distress - Head Exam Head Exam: ATRAUMATIC, NORMOCEPHALIC - Eye Exam Eye Exam: EOMI, Normal appearance - ENT Exam ENT Exam: Mucous Membranes Moist - Neck Exam Neck Exam: Full ROM Additional comments: R chest dialysis catheter, bandaged c/d/i. no surrounding erythema - Respiratory Exam Respiratory Exam: Clear to Ausculation Bilateral, NORMAL BREATHING PATTERN. absent: Rales, Rhonchi, Wheezes - Cardiovascular Exam Cardiovascular Exam: REGULAR RHYTHM, +S1, +S2 - GI/Abdominal Exam GI & Abdominal Exam: Soft, Tenderness (epigastric ), Normal Bowel Sounds - Extremities Exam Extremities Exam: Full ROM, Normal Inspection - Back Exam Back Exam: NORMAL INSPECTION - Neurological Exam Neurological Exam: Alert, Awake, Oriented x3 - Psychiatric Exam Psychiatric exam: Flat Affect - Skin Skin Exam: Normal Color, Warm Assessment and Plan - Assessment and Plan (Free Text) Assessment: 28yo F PMH uncontrolled DM with gastroparesis, ESRD on HD, Munchausen's, HTN admitted for intractable vomiting Plan: Intractable vomiting, acute likely 2/2 diabetic gastroparesis Hgb 13.9 OA VBG pH 7.32, lactate 3.1 UA 2+ protein, 3+ glucose b-hydroxybutyrate 1.21 Morphine 8, Ativan 2, Dilaudid 0.5 given - alternate Zofran 4 and Reglan 10 q6 prn - IV fluids- hold - f/u Blood Cx - no growth after 3 days - chopped foods diet IDDM, uncontrolled Diabetic Gastroparesis Hgb A1c 07/05/18: 63.1 BG 536 OA - hold home medications - Accuchecks ACHS - ISS medium - holding Insulin Aspart 7 units SC QID - hypoglycemia protocol - Levemir 12u HS ESRD on HD (MWF) Cr 5.8 OA. Last HD yesterday 07/29/18 without issues - Nephro consulted: Dr. Nieves - help appreciated Hypertension BP on 140s/100s - home Clonidine 0.2 TD weekly - losartan 25 mg PO daily Pain/Anxiety -Dialudid tapered to 0.5 q5h ivp -Ativan tapered to 1 q12 ivp PPx - DVT: CI due to hematemesis, SCDs only - GI: home Protonix 40mg po daily - Diet: chopped food diet DISPO: ISS Medium, Levemir decreased to 12 HS b/c of overnight hypoglycemia, possible autonomic dysfunction, tapering ativan and dilaudid. Mal Lynn, PGY-1
[2018-07-31] MEDS: (Novolog) Insulin Aspart, Recombinant 100 u/ml 10 ml vial SC SCH ×4 (06:48→22:17)
[2018-07-31] MEDS: Pantoprazole 40 mg EC Tab PO SCH (09:13)
[2018-07-31] MEDS: HYDROmorphone 0.5 mg/0.5 ml ISec IVP PRN (09:46)
[2018-07-31] MEDS ORDERED: Dextrose 50% SYRINGE Inj (50 ml) ONE (10:28)
[2018-07-31] MEDS: Glucagon Recombinant 1 mg Inj IM PRN (11:07)
[2018-07-31] MEDS ORDERED: HYDROmorphone 0.5 mg/0.5 ml ISec IM STA (14:29)
--- NOTE | 2018-07-31 22:02 | CP.PCM.PN ---
Subjective - Date & Time of Evaluation Date of Evaluation: 07/31/18 Time of Evaluation: 16:00 - Subjective Subjective: Patient hysterical, crying and complaining of anxiety; per nursing staff, was fine this morning and was tolerating diet well; heplock lost; Objective - Vital Signs/Intake and Output Vital Signs (last 24 hours): Temp Pulse Resp BP Pulse Ox 97.9 F 88 20 160/96 H 98 07/31/18 16:00 07/31/18 16:00 07/31/18 16:00 07/31/18 16:00 07/31/18 16:00 - Medications Medications: Current Medications Carvedilol (Coreg) 6.25 mg PO BID [facility] Last Admin: 07/31/18 17:52 Dose: 6.25 mg Clonidine HCl (Catapres-Tts2 0.2 Mg/24 Hr) 1 patch TD QWK [facility] Dextrose (Dextrose 50% Inj) 0 ml IV STAT PRN; Protocol PRN Reason: Hypoglycemia Protocol Dextrose (Glutose 15) 0 gm PO ONCE PRN; Protocol PRN Reason: Hypoglycemia Protocol Glucagon (Glucagen Diagnostic Kit) 0 mg IM STAT PRN; Protocol PRN Reason: Hypoglycemia Protocol Last Admin: 07/31/18 11:07 Dose: 1 mg Hydromorphone HCl (Dilaudid) 0.5 mg IVP Q5H PRN PRN Reason: Pain, severe (8-10) Last Admin: 07/31/18 09:46 Dose: 0.5 mg Dextrose (Dextrose 5% In Water 1000 Ml) 1,000 mls @ 0 mls/hr IV .Q0M PRN; Protocol PRN Reason: Hypoglycemia Protocol Dextrose/Sodium Chloride (Dextrose 5%/0.9% Ns 1000 Ml) 1,000 mls @ 50 mls/hr IV .Q20H [facility] Last Admin: 07/29/18 16:27 Dose: 50 mls/hr Insulin Aspart (Novolog) 7 unit SC QID [facility] Insulin Aspart (Novolog) 0 unit SC ACHS [facility]; Protocol Last Admin: 07/31/18 17:52 Dose: 10 units Insulin Detemir (Levemir) 12 unit SC HS [facility] Last Admin: 07/30/18 22:33 Dose: 12 units Lorazepam (Ativan) 1 mg IVP Q12H PRN PRN Reason: Anxiety Last Admin: 07/30/18 22:38 Dose: 1 mg Losartan Potassium (Cozaar) 25 mg PO DAILY [facility] Last Admin: 07/31/18 09:13 Dose: 25 mg Metoclopramide HCl (Reglan) 10 mg IVP Q6 PRN PRN Reason: Nausea/Vomiting Ondansetron HCl (Zofran Inj) 4 mg IVP Q6 PRN PRN Reason: Nausea/Vomiting Last Admin: 07/31/18 09:46 Dose: 4 mg Pantoprazole Sodium (Protonix Ec Tab) 40 mg PO DAILY [facility] Last Admin: 07/31/18 09:13 Dose: 40 mg - Labs Labs: 07/30/18 10:30 07/30/18 10:30 - Additional Findings Additional findings: Patient sitting up in bed, hysterical, crying; otherwise no resp distress; Assessment and Plan (1) ESRD (end stage renal disease) on dialysis Assessment & Plan: Stable electrolyte and volume status; last HD yesterday, uneventful; for revision of AVF on Thursday, may actually need AVG per vasc surgery; next HD for Thursday per routine; Status: Chronic (2) Hypertensive CKD, ESRD on dialysis Assessment & Plan: BP erratic, especially when patient becomes hysterical; continue current meds; Status: Acute
--- NOTE | 2018-08-01 00:15 | CP.PCM.PN ---
Subjective - Date & Time of Evaluation Date of Evaluation: 08/01/18 Time of Evaluation: 06:00 - Subjective Subjective: PGY-[address] Knig service Patient is seen and examined at bedside. No acute events overnight. Patient has no complaints at time of encounter. States has not used the bathroom for several days. Denies fever, chills, chest pain, sob, vomiting, diarrhea or urinary symptoms. Patient currently has no IV line access. Objective - Vital Signs/Intake and Output Vital Signs (last 24 hours): Temp Pulse Resp BP Pulse Ox 97.9 F 88 20 160/96 H 98 07/31/18 16:00 07/31/18 16:00 07/31/18 16:00 07/31/18 16:00 07/31/18 16:00 - Medications Medications: Current Medications Carvedilol (Coreg) 6.25 mg PO BID [facility] Last Admin: 07/31/18 17:52 Dose: 6.25 mg Clonidine HCl (Catapres-Tts2 0.2 Mg/24 Hr) 1 patch TD QWK [facility] Dextrose (Dextrose 50% Inj) 0 ml IV STAT PRN; Protocol PRN Reason: Hypoglycemia Protocol Dextrose (Glutose 15) 0 gm PO ONCE PRN; Protocol PRN Reason: Hypoglycemia Protocol Glucagon (Glucagen Diagnostic Kit) 0 mg IM STAT PRN; Protocol PRN Reason: Hypoglycemia Protocol Last Admin: 07/31/18 11:07 Dose: 1 mg Hydromorphone HCl (Dilaudid) 0.5 mg IVP Q5H PRN PRN Reason: Pain, severe (8-10) Last Admin: 07/31/18 09:46 Dose: 0.5 mg Dextrose (Dextrose 5% In Water 1000 Ml) 1,000 mls @ 0 mls/hr IV .Q0M PRN; Protocol PRN Reason: Hypoglycemia Protocol Dextrose/Sodium Chloride (Dextrose 5%/0.9% Ns 1000 Ml) 1,000 mls @ 50 mls/hr IV .Q20H [facility] Last Admin: 07/29/18 16:27 Dose: 50 mls/hr Insulin Aspart (Novolog) 7 unit SC QID [facility] Insulin Aspart (Novolog) 0 unit SC ACHS [facility]; Protocol Last Admin: 07/31/18 22:17 Dose: Not Given Insulin Detemir (Levemir) 12 unit SC HS [facility] Last Admin: 07/30/18 22:33 Dose: 12 units Lorazepam (Ativan) 1 mg IVP Q12H PRN PRN Reason: Anxiety Last Admin: 07/30/18 22:38 Dose: 1 mg Losartan Potassium (Cozaar) 25 mg PO DAILY [facility] Last Admin: 07/31/18 09:13 Dose: 25 mg Metoclopramide HCl (Reglan) 10 mg IVP Q6 PRN PRN Reason: Nausea/Vomiting Ondansetron HCl (Zofran Inj) 4 mg IVP Q6 PRN PRN Reason: Nausea/Vomiting Last Admin: 07/31/18 09:46 Dose: 4 mg Pantoprazole Sodium (Protonix Ec Tab) 40 mg PO DAILY [facility] Last Admin: 07/31/18 09:13 Dose: 40 mg - Labs Labs: 07/30/18 10:30 07/30/18 10:30 - Constitutional Appears: Non-toxic, No Acute Distress - Eye Exam Eye Exam: EOMI, Normal appearance - ENT Exam ENT Exam: Mucous Membranes Moist Additional comments: R chest dialysis catheter, bandaged c/d/i. no surrounding erythema - Respiratory Exam Respiratory Exam: Clear to Ausculation Bilateral, NORMAL BREATHING PATTERN - Cardiovascular Exam Cardiovascular Exam: REGULAR RHYTHM, +S1, +S2 - GI/Abdominal Exam GI & Abdominal Exam: Soft, Normal Bowel Sounds - Extremities Exam Extremities Exam: Full ROM - Back Exam Back Exam: NORMAL INSPECTION - Neurological Exam Neurological Exam: Alert, Awake, Normal Gait, Oriented x3 - Psychiatric Exam Psychiatric exam: Normal Affect, Normal Mood - Skin Skin Exam: Dry, Normal Color, Warm Assessment and Plan - Assessment and Plan (Free Text) Assessment: 28yo F PMH uncontrolled DM with gastroparesis, ESRD on HD, Munchausen's, HTN admitted for intractable vomiting Plan: Intractable vomiting, acute likely 2/2 diabetic gastroparesis Hgb 13.9 OA VBG pH 7.32, lactate 3.1 UA 2+ protein, 3+ glucose b-hydroxybutyrate 1.21 Morphine 8, Ativan 2, Dilaudid 0.5 given - alternate Zofran 4 and Reglan 10 q6 prn - IV fluids- hold - f/u Blood Cx - no growth after 4 days - chopped foods diet - poor/no IV access - give IM reglan, dilaudid IDDM, uncontrolled Diabetic Gastroparesis Hgb A1c 07/05/18: 63.1 BG 536 OA - hold home medications - holding Insulin Aspart 7 units SC QID - hold Levemir 12u HS - ISS medium - hypoglycemia protocol - Accucheckdeena ACHS ESRD on HD (MWF) Cr 5.8 OA - Nephro consulted: Dr. Nieves - help appreciated - Pending assessment of fistula vs graft placement by Vascular surgery Thursday Hypertension - home Clonidine 0.2 TD weekly - losartan 25 mg PO daily - continue to monitor BP Pain/Anxiety -Dialudid tapered to 0.5 q5h ivp -Ativan tapered to 1 q12 ivp - poor/no IV access - give dilaudid IM PPx - DVT: CI due to hematemesis, SCDs only - GI: home Protonix 40mg po daily - Diet: chopped food diet DISPO: ISS Medium, IM dilaudid and reglan as needed. Mal Lynn, PGY-1
[2018-08-01] MEDS ORDERED: (Novolog) Insulin Aspart, Recombinant 100 u/ml 10 ml vial SC ONE (07:30)
[2018-08-01] MEDS: HYDROmorphone 0.5 mg/0.5 ml ISec IVP PRN ×3 (08:09→19:45)
[2018-08-01] MEDS: (Novolog) Insulin Aspart, Recombinant 100 u/ml 10 ml vial SC SCH ×7 (08:38→22:41)
[2018-08-01] MEDS: Pantoprazole 40 mg EC Tab PO SCH (09:32)
[2018-08-01] MEDS ORDERED: Glucagon Recombinant 1 mg Inj ONE (21:47)
[2018-08-01] MEDS: Glucagon Recombinant 1 mg Inj IM PRN (21:48)
[2018-08-02] MEDS: Sodium Chloride 0.9% 1,000 ML IV SCH ×2 (00:44→20:30)
[2018-08-02] MEDS: HYDROmorphone 0.5 mg/0.5 ml ISec IVP PRN ×3 (02:12→14:44)
[2018-08-02] MEDS ORDERED: (Novolog) Insulin Aspart, Recombinant 100 u/ml 10 ml vial SC ONE (07:42)
--- NOTE | 2018-08-02 07:47 | CP.PCM.PN ---
Subjective - Date & Time of Evaluation Date of Evaluation: 08/02/18 Time of Evaluation: 07:50 - Subjective Subjective: Medicine progress note for Dr. King. Patient seen and examined at bedside. Patient crying and stating she wants more ativan. Patient initially scheduled for AVF revision; however, cancelled due to blood sugars > 500. Patient refusing for physical exam to be performed. Objective - Vital Signs/Intake and Output Vital Signs (last 24 hours): Temp Pulse Resp BP Pulse Ox 98 F 84 112 H 106/70 99 08/02/18 07:00 08/01/18 23:15 08/02/18 07:00 08/02/18 07:00 08/02/18 07:00 - Medications Medications: Current Medications Carvedilol (Coreg) 6.25 mg PO BID [facility] Last Admin: 08/01/18 17:18 Dose: 6.25 mg Clonidine HCl (Catapres-Tts2 0.2 Mg/24 Hr) 1 patch TD QWK [facility] Dextrose (Dextrose 50% Inj) 0 ml IV STAT PRN; Protocol PRN Reason: Hypoglycemia Protocol Dextrose (Glutose 15) 0 gm PO ONCE PRN; Protocol PRN Reason: Hypoglycemia Protocol Glucagon (Glucagen Diagnostic Kit) 0 mg IM STAT PRN; Protocol PRN Reason: Hypoglycemia Protocol Last Admin: 08/01/18 21:48 Dose: 1 mg Hydromorphone HCl (Dilaudid) 0.5 mg IVP Q5H PRN PRN Reason: Pain, severe (8-10) Last Admin: 08/02/18 07:04 Dose: 0.5 mg Dextrose (Dextrose 5% In Water 1000 Ml) 1,000 mls @ 0 mls/hr IV .Q0M PRN; Protocol PRN Reason: Hypoglycemia Protocol Sodium Chloride (Sodium Chloride 0.9%) 1,000 mls @ 50 mls/hr IV .Q20H [facility] Last Admin: 08/02/18 00:44 Dose: Not Given Insulin Aspart (Novolog) 7 unit SC QID [facility] Last Admin: 08/01/18 22:39 Dose: Not Given Insulin Aspart (Novolog) 0 unit SC ACHS [facility]; Protocol Last Admin: 08/01/18 22:41 Dose: Not Given Insulin Aspart (Novolog) 4 unit SC ONCE ONE Stop: 08/02/18 07:43 Insulin Detemir (Levemir) 12 unit SC HS [facility] Last Admin: 07/30/18 22:33 Dose: 12 units Lorazepam (Ativan) 1 mg IVP Q12H PRN PRN Reason: Anxiety Last Admin: 08/01/18 21:35 Dose: 1 mg Losartan Potassium (Cozaar) 25 mg PO DAILY [facility] Last Admin: 08/01/18 09:33 Dose: 25 mg Metoclopramide HCl (Reglan) 10 mg IVP Q6 PRN PRN Reason: Nausea/Vomiting Last Admin: 08/02/18 02:17 Dose: 10 mg Ondansetron HCl (Zofran Inj) 4 mg IVP Q6 PRN PRN Reason: Nausea/Vomiting Last Admin: 08/01/18 21:48 Dose: 4 mg Pantoprazole Sodium (Protonix Ec Tab) 40 mg PO DAILY [facility] Last Admin: 08/01/18 09:32 Dose: 40 mg - Labs Labs: 07/30/18 10:30 07/30/18 10:30 - Constitutional Appears: Agitated, Chronically Ill, Other (refused physical examination ) Assessment and Plan - Assessment and Plan (Free Text) Assessment: 28yo F PMH uncontrolled DM with gastroparesis, ESRD on HD, Munchausen's, HTN admitted for intractable vomiting, currently having AVF function issues, revision cancelled due to elevated blood sugars Plan: Intractable vomiting, acute likely 2/2 diabetic gastroparesis Reglan 10 mg Q6 sched, zofran 4mg Q6H PRN Ativan 2mg IVP Q8H, Dilaudid 0.5 mg Q5H CLD in evening If IV access lost, may convert meds to PO IDDM, uncontrolled Diabetic Gastroparesis Hgb A1c 07/05/18: 63.1 BG fluctuating from 80s to 500s hold home medications Insulin Aspart 7 units SC ACHS Levemir 12 units HS ISS medium Hypoglycemia protocol Accuchecks ACHS ESRD on HD (MWF) Cr 5.8 OA Nephro consulted: Dr. Nieves - help appreciated AVF revision scheduled for 08/04 Hypertension home Clonidine 0.2 TD weekly losartan 25 mg PO daily continue to monitor BP Pain/Anxiety Dialudid tapered to 0.5 q5h ivp Ativan increased to 1 q8 ivp poor/no IV access - may convert to PO meds PPx DVT: CI due to hematemesis, SCDs only GI: home Protonix 40mg po daily Diet: liquid diet DISPO: ISS Medium, may convert antiemitics & pain to PO if IV acess is lost; ativian increased to 1mg Q8H, and standing reglan on 08/02. CLD on 08/02 evening.
[2018-08-02] MEDS: (Novolog) Insulin Aspart, Recombinant 100 u/ml 10 ml vial SC SCH ×7 (09:09→22:15)
--- NOTE | 2018-08-02 11:17 | CP.PCM.PCO ---
Physician Communication Note - Physician Communication Note Physician Communication Note: AVF postponed due to marked hyperglycemia. OR thursday, tentatively.
[2018-08-02] MEDS: Pantoprazole 40 mg EC Tab PO SCH (12:04)
--- NOTE | 2018-08-02 14:23 | CP.PCM.CON ---
History of Present Illness - History of Present Illness History of Present Illness: CC: Vomiting HPI: 28 yo woman with long history of known Diabetic Gastroparesis and ESRD admitted with intracatible vomiting, and we are asked to see for GI consult. Pt on Reglan, and has multiple ER visits and admissions for this problem. Glucoses today are consistently > 500. Pt unable to eat or drink. Denies weight loss or change in bowel habits. Review of Systems - Constitutional Constitutional: Chills, Weakness. absent: Fever, Weight Loss - Respiratory Respiratory: absent: Dyspnea - Gastrointestinal Gastrointestinal: Abdominal Pain, Early Satiety, Vomiting Past Patient History - Infectious Disease Hx of Infectious Diseases: None - Past Medical History & Family History Past Medical History?: Yes - Past Social History Smoking Status: Never Smoked Alcohol: None Drugs: Denies - CARDIAC Hx Hypertension: Yes - PULMONARY Hx Bronchitis: Yes - NEUROLOGICAL Hx Seizures: Yes (Pseudo seizures?) - HEENT Hx HEENT Problems: Yes Hx Cataracts: Yes - RENAL Hx Chronic Kidney Disease: Yes - ENDOCRINE/METABOLIC Hx Endocrine Disorders: Yes Hx Diabetes Mellitus Type 2: Yes (on insulin pump) - HEMATOLOGICAL/ONCOLOGICAL Hx Anemia: Yes Hx Human Immunodeficiency Virus (HIV): No - INTEGUMENTARY Hx Dermatological Problems: No - MUSCULOSKELETAL/RHEUMATOLOGICAL Hx Musculoskeletal Disorders: Yes Hx Falls: Yes - GASTROINTESTINAL Hx Gastrointestinal Disorders: Yes (SEE COMMENT) Other/Comment: gastroparesis - GENITOURINARY/GYNECOLOGICAL Hx Genitourinary Disorders: No - PSYCHIATRIC Hx Anxiety: Yes Hx Depression: Yes Hx Substance Use: No - SURGICAL HISTORY Hx Appendectomy: Yes - ANESTHESIA Hx Anesthesia: Yes Hx Anesthesia Reactions: No Hx Malignant Hyperthermia: No Meds Allergies/Adverse Reactions: Allergies Allergy/AdvReac Type Severity Reaction Status Date / Time No Known Allergies Allergy Verified 07/27/18 16:38 - Medications Medications: Current Medications Carvedilol (Coreg) 6.25 mg PO BID [facility] Last Admin: 08/02/18 12:04 Dose: 6.25 mg Clonidine HCl (Catapres-Tts2 0.2 Mg/24 Hr) 1 patch TD QWK [facility] Dextrose (Dextrose 50% Inj) 0 ml IV STAT PRN; Protocol PRN Reason: Hypoglycemia Protocol Dextrose (Glutose 15) 0 gm PO ONCE PRN; Protocol PRN Reason: Hypoglycemia Protocol Glucagon (Glucagen Diagnostic Kit) 0 mg IM STAT PRN; Protocol PRN Reason: Hypoglycemia Protocol Last Admin: 08/01/18 21:48 Dose: 1 mg Hydromorphone HCl (Dilaudid) 0.5 mg IVP Q5H PRN PRN Reason: Pain, severe (8-10) Last Admin: 08/02/18 07:04 Dose: 0.5 mg Dextrose (Dextrose 5% In Water 1000 Ml) 1,000 mls @ 0 mls/hr IV .Q0M PRN; Protocol PRN Reason: Hypoglycemia Protocol Sodium Chloride (Sodium Chloride 0.9%) 1,000 mls @ 50 mls/hr IV .Q20H [facility] Last Admin: 08/02/18 00:44 Dose: Not Given Insulin Aspart (Novolog) 7 unit SC QID [facility] Last Admin: 08/02/18 09:10 Dose: Not Given Insulin Aspart (Novolog) 0 unit SC ACHS [facility]; Protocol Last Admin: 08/02/18 12:05 Dose: 10 units Insulin Aspart (Novolog) 7 unit SC ACHS [facility] Insulin Detemir (Levemir) 12 unit SC HS [facility] Last Admin: 07/30/18 22:33 Dose: 12 units Lorazepam (Ativan) 1 mg IVP Q8H PRN PRN Reason: Anxiety Losartan Potassium (Cozaar) 25 mg PO DAILY [facility] Last Admin: 08/02/18 12:03 Dose: 25 mg Metoclopramide HCl (Reglan) 10 mg IVP Q6 [facility] Last Admin: 08/02/18 12:03 Dose: 10 mg Ondansetron HCl (Zofran Inj) 4 mg IVP Q6 PRN PRN Reason: Nausea/Vomiting Last Admin: 08/01/18 21:48 Dose: 4 mg Pantoprazole Sodium (Protonix Ec Tab) 40 mg PO DAILY [facility] Last Admin: 08/02/18 12:04 Dose: 40 mg Physical Exam - Constitutional Appears: In Acute Distress - Head Exam Head Exam: NORMOCEPHALIC - Eye Exam Eye Exam: absent: Scleral icterus - Respiratory Exam Respiratory Exam: NORMAL BREATHING PATTERN - Cardiovascular Exam Cardiovascular Exam: REGULAR RHYTHM - GI/Abdominal Exam GI & Abdominal Exam: Soft. absent: Distended, Tenderness Results - Vital Signs Recent Vital Signs: Last Vital Signs Temp 98.8 F 08/02/18 11:12 Pulse 99 H 08/02/18 11:12 Resp 18 08/02/18 11:12 BP 101/66 08/02/18 11:12 Pulse Ox 99 08/02/18 11:12 - Labs Result Diagrams: 07/30/18 10:30 07/30/18 10:30 Labs: Laboratory Results - last 24 hr 07/30/18 08/01/18 08/01/18 05:33 16:19 21:10 POC Glucose (mg/dL) 41 L 209 H 45 L 08/01/18 08/01/18 08/02/18 21:11 22:17 02:05 POC Glucose (mg/dL) 47 L 227 H 439 H* 08/02/18 08/02/18 08/02/18 06:16 11:24 11:27 POC Glucose (mg/dL) > 500 H* > 500 H* > 500 H* 08/02/18 08/02/18 13:35 13:38 POC Glucose (mg/dL) > 500 H* > 500 H* Assessment & Plan (1) ESRD (end stage renal disease) on dialysis Status: Chronic (2) Gastroparesis Assessment and Plan: Primary therapy consists of hypeglycemic control. Reglan may be continued for the acute short term management, but I would not recommend Reglan for the catcher helper due to its side effect profile. Continue supportive care with IV hydration and anti-emetics until vomiting is under control Status: Chronic (3) Anxiety Status: Acute
[2018-08-02 16:51] LABS: BASO % 0.4 % (0.0-2.0); EOS % 0.1 % (0.0-4.0); HEMOGLOBIN 11.9 g/dL (11.0-16.0); LYMPH # 2.3 K/uL (1.0-4.3); LYMPH % 19.8 % (20.0-40.0); MEAN CORPUSCULAR HEMOGLOBIN 25.5 pg (27.0-31.0); MEAN CORPUSCULAR HGB CONC 31.4 g/dL (33.0-37.0); MEAN PLATELET VOLUME 9.8 fL (7.2-11.7); MONO # 0.8 K/uL (0.0-0.8); MONO % 6.8 % (0.0-10.0); NEUT # 8.5 K/uL (1.8-7.0); NEUT % 72.9 % (50.0-75.0); RBC 4.68 Mil/uL (3.80-5.20); RED CELL DISTRIBUTION WIDTH 17.5 % (11.5-14.5)
[2018-08-02 16:54] LABS: WHITE BLOOD COUNT 11.7 K/uL (4.8-10.8)
[2018-08-02 17:00] LABS: INR 0.9; PROTHROMBIN TIME 10.2 SECONDS (9.7-12.2)
[2018-08-02 17:05] LABS: ALB/GLOB RATIO 1.5 (1.0-2.1); CALCIUM 8.8 mg/dl (8.6-10.4)
--- NOTE | 2018-08-02 19:18 | PCM.RRT ---
SUPERVISOR PURIFICATION Nurses Assessment - Situation Date: 08/02/18 Time SUPERVISOR PURIFICATION was called: 07:05 SUPERVISOR PURIFICATION Responder Arrival Time:: 07:07 SUPERVISOR PURIFICATION Location:: Med/Oncology SUPERVISOR PURIFICATION Called By: RN - IV IV Inserted during SUPERVISOR PURIFICATION?: No - Respiratory SUPERVISOR PURIFICATION Delivery Method: Nasal Cannula @L/min (2) Received Nebulizer Treatments: No Was the Patient Ventilated with Bag/Mask 100% O2?: No Secretions Suctioned?: No Was the Patient Intubated?: No Was the Patient Placed on a Ventilator?: No - Medication Medications Administered During SUPERVISOR PURIFICATION: Reglan 10mg IM - Diagnostic Test Ordered EKG: No Chest X-Ray: No CT Scan: No CPR started during SUPERVISOR PURIFICATION?: No - Vital Signs Vital Signs: HR 106, bp 127/70, 100% SpO2 on 2L NC - [place] Coma Scale Coma Scale Eye Opening: To verbal stimuli Coma Scale Verbal: Oriented - Vital Signs at end of SUPERVISOR PURIFICATION Vital Signs at end of SUPERVISOR PURIFICATION: bp 131/79, HR 103, SpO2 98%RA I.Reason for SUPERVISOR PURIFICATION - A) Acute Change in Patient: (Select all that apply): Staff member or family is worried about patient - Neurological Status (Select all that apply): Responsive - Respiratory Oxygen Delivery Method: Room Air - Constitutional Appears: Non-toxic, No Acute Distress - Head Head Exam: ATRAUMATIC, NORMOCEPHALIC - Eyes Eye Exam: EOMI, PERRL - Respiratory Exam Respiratory Exam: Clear to Ausculation Bilateral, NORMAL BREATHING PATTERN. absent: Rales, Rhonchi, Wheezes - Cardiovascular Exam Cardiovascular Exam: Tachycardia, +S1, +S2. absent: Gallop, Rubs, Murmur - GI/Abdominal Exam GI & Abdominal Exam: Soft, Normal Bowel Sounds. absent: Distended, Guarding, Tenderness - Neurological Exam Neurological Exam: absent: Awake, Oriented x3 Additional exam: active shaking on arrival at end of SUPERVISOR PURIFICATION, patient is awake and tearful. oriented to person, place, time, situation motor strength intact - Extremities Exam Extremities Exam: Normal Capillary Refill, Normal Inspection Additional comments: multiple bruises from blown IV insertions Plan - Assessment of Findings&Treatment Plan House doctor note. SUPERVISOR PURIFICATION called for seizure at 19:05 that occured during the end of dialysis session. Upon arrival patient's torso was shaking, her arms and legs were not shaking. Shaking suddenly stoppeda as I entered the room. Vitals on arrival: HR 106, bp 127/70, 100 O2 saturation 2L NC. Blood sugar taken was 89. Previous blood sugar at 16:30 was 256. Note, Patient's AVF revision was rescheduled due to elevated blood sugar. Patient was arousable to voice and touch. She was helped to sit up from supine position with the aid of staff. Patient began vomiting and was tearful. Reglan 10mg IM stat was ordered. Vitals end SUPERVISOR PURIFICATION: HR 102, bp 131/79, 98% on RA.
--- NOTE | 2018-08-02 19:58 | CP.PCM.PN ---
Subjective - Date & Time of Evaluation Date of Evaluation: 08/02/18 Time of Evaluation: 19:57 - Subjective Subjective: 28 yo HF with pmh % Anemia, Anxiety, Bronchitis, Depression, Diabetes, HTN, End Stage Renal Disease, Chronic Kidney Disease, Seizures (Pseudo seizures? pt is seen and examined during hd, follow up consult is dictated #[id number] Objective - Vital Signs/Intake and Output Vital Signs (last 24 hours): Temp Pulse Resp BP Pulse Ox 97.7 F 103 H 18 95/65 L 97 08/02/18 18:50 08/02/18 18:50 08/02/18 18:50 08/02/18 19:00 08/02/18 18:50 - Medications Medications: Current Medications Carvedilol (Coreg) 6.25 mg PO BID [facility] Last Admin: 08/02/18 18:10 Dose: Not Given Clonidine HCl (Catapres-Tts2 0.2 Mg/24 Hr) 1 patch TD QWK [facility] Dextrose (Dextrose 50% Inj) 0 ml IV STAT PRN; Protocol PRN Reason: Hypoglycemia Protocol Dextrose (Glutose 15) 0 gm PO ONCE PRN; Protocol PRN Reason: Hypoglycemia Protocol Glucagon (Glucagen Diagnostic Kit) 0 mg IM STAT PRN; Protocol PRN Reason: Hypoglycemia Protocol Last Admin: 08/01/18 21:48 Dose: 1 mg Hydromorphone HCl (Dilaudid) 0.5 mg IVP Q5H PRN PRN Reason: Pain, severe (8-10) Last Admin: 08/02/18 14:44 Dose: 0.5 mg Dextrose (Dextrose 5% In Water 1000 Ml) 1,000 mls @ 0 mls/hr IV .Q0M PRN; Protocol PRN Reason: Hypoglycemia Protocol Sodium Chloride (Sodium Chloride 0.9%) 1,000 mls @ 50 mls/hr IV .Q20H [facility] Last Admin: 08/02/18 00:44 Dose: Not Given Insulin Aspart (Novolog) 7 unit SC QID [facility] Last Admin: 08/02/18 09:10 Dose: Not Given Insulin Aspart (Novolog) 0 unit SC ACHS [facility]; Protocol Last Admin: 08/02/18 16:30 Dose: Not Given Insulin Aspart (Novolog) 7 unit SC ACHS [facility] Last Admin: 08/02/18 16:30 Dose: Not Given Insulin Detemir (Levemir) 12 unit SC HS [facility] Last Admin: 07/30/18 22:33 Dose: 12 units Lorazepam (Ativan) 1 mg IVP Q8H PRN PRN Reason: Anxiety Losartan Potassium (Cozaar) 25 mg PO DAILY [facility] Last Admin: 08/02/18 12:03 Dose: 25 mg Metoclopramide HCl (Reglan) 10 mg IVP Q6 [facility] Last Admin: 08/02/18 18:10 Dose: Not Given Ondansetron HCl (Zofran Inj) 4 mg IVP Q6 PRN PRN Reason: Nausea/Vomiting Last Admin: 08/01/18 21:48 Dose: 4 mg Pantoprazole Sodium (Protonix Ec Tab) 40 mg PO DAILY [facility] Last Admin: 08/02/18 12:04 Dose: 40 mg - Labs Labs: 08/02/18 16:31 08/02/18 16:31 PT 10.2 SECONDS (9.7-12.2) 08/02/18 16:31 INR 0.9 08/02/18 16:31 APTT 23 SECONDS (21-34) 08/02/18 16:31
[2018-08-02] MEDS ORDERED: HYDROmorphone 0.5 mg/0.5 ml ISec IM ONE (20:15)
[2018-08-02] MEDS ORDERED: oxyCODONE 5 mg Immediate Release Tab PO PRN (21:22)
[2018-08-02] MEDS: Insulin Detemir 100 units/ml Vial (Levemir) SC SCH (22:15)
[2018-08-03] MEDS ORDERED: Insulin Detemir 100 units/ml Vial (Levemir) SC STA (04:06)
--- NOTE | 2018-08-03 05:47 | PN ---
DATE: 08/02/2018 FOLLOWUP RENAL CONSULTATION LOCATION: The patient is located in room 653, bed B. SUBJECTIVE: The patient was seen and examined at 1957 hours on 08/02/2018 during dialysis. Mrs. Larry is a 28-year-old young female with a past medical history of anemia, anxiety, depression, bronchitis, hypertension, diabetes, poorly controlled diabetes, end-stage renal disease. She has questionable seizures versus pseudoseizures, was seen and examined during dialysis. The patient underwent hemodialysis for about two and half hours. Subsequently, the patient started complaining abdominal pain and vomiting bilious liquid and also complaining of generalized body aches and shaking both upper extremities for short period of time, and hemodialysis was discontinued. The patient is requesting pain medication, and the patient is screaming and anxious, not in distress. PHYSICAL EXAMINATION: VITAL SIGNS: Blood pressure 131/79, pulse 103, respiration 97.7, saturation 97% on 2 L nasal cannula. Height 5 feet 2 inches. Weight is 140 pounds. GENERAL: Mrs. Larry is a 28-year-old young female, well built, well nourished, not in distress. HEENT: Pupils are normal and reactive to light and accommodation. Conjunctivae pink. Sclerae anicteric. Tongue is moist. Trachea is midline. LUNGS: Symmetric on both sides. Bilateral breath sounds present. Clear to auscultation. CARDIOVASCULAR SYSTEM: [place] at the fifth intercostal space, midclavicular line. S1 and S2 audible. No murmur or gallop. ABDOMEN: Normal in appearance. Soft, tympanitic. No guarding. No rigidity. No hepatosplenomegaly. CENTRAL NERVOUS SYSTEM: The patient is alert, awake and oriented x3. Nonfocal neuro examination. Cranial nerves II through XII grossly intact. Sensory and motor system is within normal limits. EXTREMITIES: No cyanosis, no clubbing, no edema. CURRENT MEDICATIONS: Include as follows: Ativan 1 mg p.o. every 8 hours, clonidine TTS one patch weekly, Coreg 6.25 mg p.o. b.i.d., Cozaar 25 mg daily, Levemir 12 units subcu at bedtime, oxycodone 5 mg p.o. every 4 hours p.r.n., Protonix 40 mg p.o. daily, Reglan 10 mg IV every 6 hours, IV fluids normal saline at 50 mL per hour, and Zofran 4 mg IV every 6 hours p.r.n. LABORATORY DATA: Include as follows: WBC 11.7, hemoglobin 11.9, hematocrit 37.9, platelets 290. PT 10.2, PTT 23. Sodium 132, potassium 3.9, chloride 94, CO2 of 21, BUN 75, creatinine 9.2, glucose 282, calcium 8.8, phosphorus 7.7, and magnesium is 3. ASSESSMENT AND PLAN: In summary, Mrs. Larry is a 28-year-old young female with history of hypertension, diabetes, anxiety, depression, seizures versus pseudoseizures, gastroparesis, on hemodialysis three times a week. 1. End-stage renal disease, most likely secondary to diabetic nephropathy. 2. Poorly controlled diabetes. 3. Hypertension. 4. Depression/anxiety. 5. Diabetic gastroparesis. Continue hemodialysis three times a week as per Dr. Nieves. 6. Hyperphosphatemia. We will add Renvela 1800 mg oral three times a day. Continue to follow up with primary team and Psychiatry. Covering Dr. Nieves for today. Thank you for allowing me to participate in your patient's care. Sari Willis MD
[2018-08-03] MEDS: (Novolog) Insulin Aspart, Recombinant 100 u/ml 10 ml vial SC SCH ×8 (06:34→21:46)
--- NOTE | 2018-08-03 06:44 | CP.PCM.PN ---
Subjective - Date & Time of Evaluation Date of Evaluation: 08/03/18 Time of Evaluation: 08:00 - Subjective Subjective: Medicine progress note for Dr. King Patient seen and examined at bedside. Patient overnight lost IV acess, medications converted to PO. Patient requesting IV acess. PAtient multiple rapids through the day for seizure like activity; however, at all rapids, patient had motor control, not postictal, demanding pain medicine, threatening to scream louder if pain medication is not given. Patient refusing physical examination to be done. Objective - Vital Signs/Intake and Output Vital Signs (last 24 hours): Temp Pulse Resp BP Pulse Ox 98.2 F 105 H 20 155/94 H 97 08/02/18 23:15 08/02/18 23:15 08/02/18 23:15 08/02/18 23:15 08/02/18 23:15 Intake and Output: 08/02/18 08/03/18 18:59 06:59 Intake Total 200 Balance 200 - Medications Medications: Current Medications Carvedilol (Coreg) 6.25 mg PO BID [facility] Last Admin: 08/02/18 18:10 Dose: Not Given Clonidine HCl (Catapres-Tts2 0.2 Mg/24 Hr) 1 patch TD QWK [facility] Dextrose (Dextrose 50% Inj) 0 ml IV STAT PRN; Protocol PRN Reason: Hypoglycemia Protocol Dextrose (Glutose 15) 0 gm PO ONCE PRN; Protocol PRN Reason: Hypoglycemia Protocol Glucagon (Glucagen Diagnostic Kit) 0 mg IM STAT PRN; Protocol PRN Reason: Hypoglycemia Protocol Last Admin: 08/01/18 21:48 Dose: 1 mg Dextrose (Dextrose 5% In Water 1000 Ml) 1,000 mls @ 0 mls/hr IV .Q0M PRN; Protocol PRN Reason: Hypoglycemia Protocol Sodium Chloride (Sodium Chloride 0.9%) 1,000 mls @ 50 mls/hr IV .Q20H [facility] Last Admin: 08/02/18 20:30 Dose: Not Given Insulin Aspart (Novolog) 7 unit SC QID [facility] Last Admin: 08/02/18 09:10 Dose: Not Given Insulin Aspart (Novolog) 0 unit SC ACHS [facility]; Protocol Last Admin: 08/03/18 06:34 Dose: 10 units Insulin Aspart (Novolog) 7 unit SC ACHS [facility] Last Admin: 08/02/18 22:15 Dose: Not Given Insulin Detemir (Levemir) 12 unit SC HS [facility] Last Admin: 08/02/18 22:15 Dose: Not Given Lorazepam (Ativan) 1 mg PO Q8H PRN PRN Reason: Anxiety Last Admin: 08/03/18 06:10 Dose: 1 mg Losartan Potassium (Cozaar) 25 mg PO DAILY [facility] Last Admin: 08/02/18 12:03 Dose: 25 mg Metoclopramide HCl (Reglan) 10 mg PO Q6H PRN PRN Reason: Nausea/Vomiting Last Admin: 08/03/18 01:48 Dose: 10 mg Ondansetron HCl (Zofran Inj) 4 mg IVP Q6 PRN PRN Reason: Nausea/Vomiting Last Admin: 08/01/18 21:48 Dose: 4 mg Oxycodone HCl (Oxycodone Immediate Release Tab) 5 mg PO Q4 PRN Last Admin: 08/03/18 01:51 Dose: 5 mg Pantoprazole Sodium (Protonix Ec Tab) 40 mg PO DAILY [facility] Last Admin: 08/02/18 12:04 Dose: 40 mg - Labs Labs: 08/02/18 16:31 08/02/18 16:31 PT 10.2 SECONDS (9.7-12.2) 08/02/18 16:31 INR 0.9 08/02/18 16:31 APTT 23 SECONDS (21-34) 08/02/18 16:31 - Constitutional Appears: Non-toxic, No Acute Distress - Head Exam Head Exam: NORMAL INSPECTION - Cardiovascular Exam Additional comments: R portacarth in chest - Neurological Exam Neurological Exam: Alert, Awake, Oriented x3 - Psychiatric Exam Psychiatric exam: Agitated, Anxious - Skin Skin Exam: Dry, Normal Color, Warm Assessment and Plan - Assessment and Plan (Free Text) Assessment: 28yo F PMH uncontrolled DM with gastroparesis, ESRD on HD, Munchausen's, HTN admitted for intractable vomiting, currently having AVF function issues, revision cancelled due to elevated blood sugars, pt persistently having p seudoseizures, attempting to gain more pain medication Plan: Munchausen F/u psych recs F/u neuro recs For anxiety hydroxyzine 25 mg Q6H IM if patient becomes aggressive and harm to self 1:1 sitter Intractable vomiting, acute Gastritis, Vomiting likely 2/2 diabetic gastroparesis Reglan 10 mg Q6 prn, zofran 4mg Q6H PRN Hold ativian, Dilaudid 0.5 mg Q8H Protonix 40 mg IVP daily CLD in evening NPO past midnight for AVF revision If IV access lost, may convert meds to PO IDDM, uncontrolled Diabetic Gastroparesis Hgb A1c 07/05/18: 63.1 BG fluctuating from 80s to 500s hold home medications Insulin Aspart 7 units SC ACHS - held due to NPO during day Levemir 12 units HS change to 6 units HS as NPO past midnight ISS medium Hypoglycemia protocol Accuchecks ACHS ESRD on HD (MWF) Cr 5.8 OA Nephro consulted: Dr. Nieves - help appreciated AVF revision scheduled for 08/04 Hypertension home Clonidine 0.2 TD weekly losartan 25 mg PO daily continue to monitor BP Pain/Anxiety Dialudid tapered to 0.5 q8h ivp Ativan increased to 1 q8 ivp - held For anxiety hydroxyzine 25 mg Q6H IM if patient becomes aggressive and harm to self poor/no IV access - may convert to PO meds PPx DVT: CI due to hematemesis, SCDs only GI: home Protonix 40mg IVP Diet: liquid diet DISPO: ISS Medium, may convert antiemitics & pain to PO if IV acess is lost; ativan held, For anxiety hydroxyzine 25 mg Q6H IM if patient becomes aggressive and harm to self Will d/c w/ Dr. King
--- NOTE | 2018-08-03 08:55 | PCM.RRT ---
<Mal Lynn - Last Filed: 08/03/18 09:18> HEALTH NAVIGATOR Nurses Assessment - Situation Date: 08/02/18 Time HEALTH NAVIGATOR was called: 08:39 HEALTH NAVIGATOR Responder Arrival Time:: 08:40 HEALTH NAVIGATOR Location:: Med/Oncology HEALTH NAVIGATOR Reason for Call: Change in Mental Status HEALTH NAVIGATOR Called By: RN - IV IV Inserted during HEALTH NAVIGATOR?: No - Respiratory HEALTH NAVIGATOR Delivery Method: Room Air Received Nebulizer Treatments: No Was the Patient Ventilated with Bag/Mask 100% O2?: No Secretions Suctioned?: No Was the Patient Intubated?: No Was the Patient Placed on a Ventilator?: No - Medication Medications Administered During HEALTH NAVIGATOR: Reglan 10mg IM - Diagnostic Test Ordered EKG: No Chest X-Ray: No CT Scan: No CPR started during HEALTH NAVIGATOR?: No - Vital Signs Vital Signs: Rapid Response Vital Sign Blood Pressure 131/79 Pulse Rate 103 Respiratory Rate 20 Temperature 97.7 F Oxygen Saturation 97 - [place] Coma Scale Coma Scale Eye Opening: To verbal stimuli Coma Scale Verbal: Oriented - Time HEALTH NAVIGATOR Ended Time HEALTH NAVIGATOR Ended: 19:25 - Vital Signs at end of HEALTH NAVIGATOR Vital Signs at end of HEALTH NAVIGATOR: Rapid Response End Vital Sign Blood Pressure 113/51 Pulse Rate 113 Respiratory Rate 18 Temperature 97.7 F O2 Sat by Pulse Oximetry 97 - Recommendations Notifications: Consultations, Family or Designated Caregiver I.Reason for HEALTH NAVIGATOR - A) Acute Change in Patient: (Select all that apply): Staff member or family is worried about patient - Neurological Status (Select all that apply): Alert, Responsive, Oriented, Verbal, Follows Commands - Respiratory Oxygen Delivery Method: Room Air - Constitutional Appears: Non-toxic, Unkempt - Head Head Exam: ATRAUMATIC, NORMOCEPHALIC - Eyes Eye Exam: EOMI, Normal appearance - Respiratory Exam Respiratory Exam: NORMAL BREATHING PATTERN - GI/Abdominal Exam GI & Abdominal Exam: Soft, Normal Bowel Sounds - Neurological Exam Neurological Exam: Alert, Awake - Extremities Exam Extremities Exam: Full ROM, Normal Inspection Plan - Assessment of Findings&Treatment Plan House doctor - HEALTH NAVIGATOR note Rapid response called for pt in 653 B, as per CP and nurse patient slipped from bed into floor after taking vitals signs, not responding to RN, no head trauma. Vitals 180/114 HR 126 O2 98. upon arrival of HEALTH NAVIGATOR, patient not awake, Patient helped to bed, arm raised, avoided arm to fall in her face, blinking noticed. Patient suddenly wakes up when asked what she needs, hysterical, states having abdominal pain and anxiety, asking for medication. Blood sugar 500, patient given ISS as per protocol earlier. Ordered Thorazine 25 IM x 1. Patient currently does not have IV access, Attending notified. surgical team to follow for possible IV line access today. <Chilo Sands H - Last Filed: 08/03/18 13:49> HEALTH NAVIGATOR Nurses Assessment - Vital Signs Vital Signs: Rapid Response Vital Sign Blood Pressure 131/79 Pulse Rate 103 Respiratory Rate 20 Temperature 97.7 F Oxygen Saturation 97 - Vital Signs at end of HEALTH NAVIGATOR Vital Signs at end of HEALTH NAVIGATOR: Rapid Response End Vital Sign Blood Pressure 113/51 Pulse Rate 113 Respiratory Rate 18 Temperature 97.7 F O2 Sat by Pulse Oximetry 97 Attending/Attestation - Attestation I have personally seen and examined this patient.: Yes I have fully participated in the care of the patient.: Yes I have reviewed all pertinent clinical information, including history, physical exam and plan: Yes Notes (Text): 08/03/18 13:45 Hospitalist Note: Patient was seen during the HEALTH NAVIGATOR this morning and later in the afternoon. On both occasions we raised the patient's arm above her head and when we released her arms she would not strike her face - each time it was to the side. This was with both arms. Patient is known in the past for similar situations. We are very reluctant to administer things such as IV ativan and IV dilaudid. 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 In the morning's HEALTH NAVIGATOR she sat up and started yelling and pulling out her hair. Hopefully psychiatry will be able to have her be on a regimen of medication that will help her. Chilo Sands
[2018-08-03] MEDS: Pantoprazole 40 mg EC Tab PO SCH (11:20)
--- NOTE | 2018-08-03 13:00 | CP.PCM.PN ---
Subjective - Date & Time of Evaluation Date of Evaluation: 08/03/18 Time of Evaluation: 12:20 - Subjective Subjective: 28 y/o patient in holding area with recent hypoglycemia/hyperglycemia episodes, now in holding area for IV access as previous attempts have been unsuccessful. Objective - Vital Signs/Intake and Output Vital Signs (last 24 hours): Temp Pulse Resp BP Pulse Ox 98.2 F 105 H 20 155/94 H 97 08/02/18 23:15 08/02/18 23:15 08/02/18 23:15 08/02/18 23:15 08/02/18 23:15 Intake and Output: 08/03/18 08/03/18 06:59 18:59 Intake Total 200 Balance 200 - Medications Medications: Current Medications Carvedilol (Coreg) 6.25 mg PO BID [facility] Last Admin: 08/03/18 11:21 Dose: Not Given Clonidine HCl (Catapres-Tts2 0.2 Mg/24 Hr) 1 patch TD QWK [facility] Last Admin: 08/03/18 11:21 Dose: 1 patch Dextrose (Dextrose 50% Inj) 0 ml IV STAT PRN; Protocol PRN Reason: Hypoglycemia Protocol Dextrose (Glutose 15) 0 gm PO ONCE PRN; Protocol PRN Reason: Hypoglycemia Protocol Glucagon (Glucagen Diagnostic Kit) 0 mg IM STAT PRN; Protocol PRN Reason: Hypoglycemia Protocol Last Admin: 08/01/18 21:48 Dose: 1 mg Hydromorphone HCl (Dilaudid) 0.5 mg IVP STAT STA Stop: 08/03/18 12:58 Dextrose (Dextrose 5% In Water 1000 Ml) 1,000 mls @ 0 mls/hr IV .Q0M PRN; Protocol PRN Reason: Hypoglycemia Protocol Sodium Chloride (Sodium Chloride 0.9%) 1,000 mls @ 50 mls/hr IV .Q20H [facility] Last Admin: 08/02/18 20:30 Dose: Not Given Insulin Aspart (Novolog) 7 unit SC QID [facility] Last Admin: 08/02/18 09:10 Dose: Not Given Insulin Aspart (Novolog) 0 unit SC ACHS [facility]; Protocol Last Admin: 08/03/18 12:42 Dose: Not Given Insulin Aspart (Novolog) 7 unit SC ACHS [facility] Last Admin: 08/03/18 12:42 Dose: Not Given Insulin Detemir (Levemir) 12 unit SC HS [facility] Last Admin: 08/02/18 22:15 Dose: Not Given Lorazepam (Ativan) 1 mg PO Q8H PRN PRN Reason: Anxiety Last Admin: 08/03/18 06:10 Dose: 1 mg Losartan Potassium (Cozaar) 25 mg PO DAILY [facility] Last Admin: 08/03/18 09:00 Dose: Not Given Metoclopramide HCl (Reglan) 10 mg PO Q6H PRN PRN Reason: Nausea/Vomiting Last Admin: 08/03/18 01:48 Dose: 10 mg Ondansetron HCl (Zofran Inj) 4 mg IVP Q6 PRN PRN Reason: Nausea/Vomiting Last Admin: 08/01/18 21:48 Dose: 4 mg Oxycodone HCl (Oxycodone Immediate Release Tab) 5 mg PO Q4 PRN Last Admin: 08/03/18 01:51 Dose: 5 mg Pantoprazole Sodium (Protonix Ec Tab) 40 mg PO DAILY [facility] Last Admin: 08/03/18 11:20 Dose: Not Given - Labs Labs: 08/02/18 16:31 08/02/18 16:31 PT 10.2 SECONDS (9.7-12.2) 08/02/18 16:31 INR 0.9 08/02/18 16:31 APTT 23 SECONDS (21-34) 08/02/18 16:31 Assessment and Plan - Assessment and Plan (Free Text) Assessment: rapid response called overhead for patient not responding to verbal commands and shaking uncontrollably. when i arrived VSS and airway patent, there was no IV access for the patient, I placed 24g IV placed in Right foot for emergency access in sterile fashion. FSG checked >300, patient was arousable and following commands before leaving holding area and care was taken over by primary care team. Procedures Attestation:: I certify that I have explained the specified Operation(s) or Procedure(s), risks, benefits and reasonable alternatives to the Patient and/or other person responsible. The opportunity was given to ask questions and all questions answered - EJ/Peripheral Line Skin Cleansed in Sterile Fashion: Yes Size: 24 IV Secured and Dressing Applied: Yes Patient Tolerated Procedure: Well Additional comments: rapid response called overhead for patient not responding to verbal commands and shaking uncontrollably. when i arrived there was no IV access for the patient, I placed 24g IV placed in Right foot for emergency access in sterile fashion.
[2018-08-03] MEDS ORDERED: HYDROmorphone 0.5 mg/0.5 ml ISec IVP STA (13:06)
[2018-08-03] MEDS ORDERED: risperiDONE Consta 25mg/2ml Syringe IM ONE (14:18)
--- NOTE | 2018-08-03 15:15 | CP.PCM.PN ---
Subjective - Date & Time of Evaluation Date of Evaluation: 08/03/18 Time of Evaluation: 13:00 - Subjective Subjective: Anesthesia Note: 28yo F with incontrolled DM with gastroparesis, ESRD on HD, and HTN initially admitted with intractable vomitting present to the OR today for central line insertion by Dr. Hines. Patient was brought to the OR holding where she was seen vomitting and complaining of pain. Prior to interviewing the patient she starting having what appears to be seizure like movements. Rapid response was called. Monitors was placed and oxygen administered via nasal cannula, suction prepared in event of vomitting. VS was stable and patient was exchanging well. Blood glucose checked (>300). Shaking movements stopped after 5 minutes and patient was awake and alert. IV access was obtained on patient right foot. Patient was then transported back to the floor under the care of the primary team. Objective - Vital Signs/Intake and Output Vital Signs (last 24 hours): Temp Pulse Resp BP Pulse Ox 98.2 F 102 H 20 159/91 H 96 08/02/18 23:15 08/03/18 09:20 08/03/18 09:20 08/03/18 09:20 08/03/18 09:20 Intake and Output: 08/03/18 08/03/18 06:59 18:59 Intake Total 200 Balance 200 - Medications Medications: Current Medications Carvedilol (Coreg) 6.25 mg PO BID [facility] Last Admin: 08/03/18 11:21 Dose: Not Given Clonidine HCl (Catapres-Tts2 0.2 Mg/24 Hr) 1 patch TD QWK [facility] Last Admin: 08/03/18 11:21 Dose: 1 patch Dextrose (Dextrose 50% Inj) 0 ml IV STAT PRN; Protocol PRN Reason: Hypoglycemia Protocol Dextrose (Glutose 15) 0 gm PO ONCE PRN; Protocol PRN Reason: Hypoglycemia Protocol Glucagon (Glucagen Diagnostic Kit) 0 mg IM STAT PRN; Protocol PRN Reason: Hypoglycemia Protocol Last Admin: 08/01/18 21:48 Dose: 1 mg Dextrose (Dextrose 5% In Water 1000 Ml) 1,000 mls @ 0 mls/hr IV .Q0M PRN; Protocol PRN Reason: Hypoglycemia Protocol Sodium Chloride (Sodium Chloride 0.9%) 1,000 mls @ 50 mls/hr IV .Q20H [facility] Last Admin: 08/02/18 20:30 Dose: Not Given Insulin Aspart (Novolog) 0 unit SC ACHS [facility]; Protocol Last Admin: 08/03/18 14:17 Dose: 8 units Insulin Aspart (Novolog) 7 unit SC ACHS [facility] Last Admin: 08/03/18 12:42 Dose: Not Given Insulin Detemir (Levemir) 6 unit SC HS [facility] Lorazepam (Ativan) 1 mg PO Q8H PRN PRN Reason: Anxiety Last Admin: 08/03/18 06:10 Dose: 1 mg Losartan Potassium (Cozaar) 25 mg PO DAILY [facility] Last Admin: 08/03/18 09:00 Dose: Not Given Metoclopramide HCl (Reglan) 10 mg PO Q6H PRN PRN Reason: Nausea/Vomiting Last Admin: 08/03/18 01:48 Dose: 10 mg Ondansetron HCl (Zofran Inj) 4 mg IVP Q6 PRN PRN Reason: Nausea/Vomiting Last Admin: 08/03/18 14:18 Dose: 4 mg Oxycodone HCl (Oxycodone Immediate Release Tab) 5 mg PO Q4 PRN Last Admin: 08/03/18 01:51 Dose: 5 mg Pantoprazole Sodium (Protonix Ec Tab) 40 mg PO DAILY [facility] Last Admin: 08/03/18 11:20 Dose: Not Given Pantoprazole Sodium (Protonix Inj) 40 mg IVP DAILY [facility] Risperidone (Risperdal Consta) 1 mg IM ONCE ONE Stop: 08/03/18 14:19 - Labs Labs: 08/02/18 16:31 08/02/18 16:31 PT 10.2 SECONDS (9.7-12.2) 08/02/18 16:31 INR 0.9 08/02/18 16:31 APTT 23 SECONDS (21-34) 08/02/18 16:31
--- NOTE | 2018-08-03 15:34 | CP.PCM.PN ---
Subjective - Date & Time of Evaluation Date of Evaluation: 08/03/18 Time of Evaluation: 07:45 - Subjective Subjective: Nephro Progress Note for Dr. Nieves Service Oracio Nash DO, IM PGY-3 Patient seen and examined at bedside. Underwent HD yesterday but interrupted at 2.5 hr tolu due to acute emesis and seizure/pseudo-seizure. Patient this AM complaining of pain and nausea when awakened, refusing exam of abdomen. Otherwise not in acute distress at time of exam. Later today, had another EVS MANAGER (one earlier this AM, please see EVS MANAGER note for further details) for seizure/pseudo-seizure while in pre-op (was pending TLC placement due to lack of IV access), 24 gauge placed in Right ankle by anesthesia, procedure canceled. Patient later resting comfortably but upon awakening to examine with attending, immediately started crying and screaming that she was in too much pain, was too anxious, wanted something now that she had access. Objective - Vital Signs/Intake and Output Vital Signs (last 24 hours): Temp Pulse Resp BP Pulse Ox 98.2 F 102 H 20 159/91 H 96 08/02/18 23:15 08/03/18 09:20 08/03/18 09:20 08/03/18 09:20 08/03/18 09:20 Intake and Output: 08/03/18 08/03/18 06:59 18:59 Intake Total 200 Balance 200 - Medications Medications: Current Medications Carvedilol (Coreg) 6.25 mg PO BID [facility] Last Admin: 08/03/18 11:21 Dose: Not Given Clonidine HCl (Catapres-Tts2 0.2 Mg/24 Hr) 1 patch TD QWK [facility] Last Admin: 08/03/18 11:21 Dose: 1 patch Dextrose (Dextrose 50% Inj) 0 ml IV STAT PRN; Protocol PRN Reason: Hypoglycemia Protocol Dextrose (Glutose 15) 0 gm PO ONCE PRN; Protocol PRN Reason: Hypoglycemia Protocol Glucagon (Glucagen Diagnostic Kit) 0 mg IM STAT PRN; Protocol PRN Reason: Hypoglycemia Protocol Last Admin: 08/01/18 21:48 Dose: 1 mg Dextrose (Dextrose 5% In Water 1000 Ml) 1,000 mls @ 0 mls/hr IV .Q0M PRN; Protocol PRN Reason: Hypoglycemia Protocol Sodium Chloride (Sodium Chloride 0.9%) 1,000 mls @ 50 mls/hr IV .Q20H [facility] Last Admin: 08/02/18 20:30 Dose: Not Given Insulin Aspart (Novolog) 0 unit SC ACHS [facility]; Protocol Last Admin: 08/03/18 14:17 Dose: 8 units Insulin Aspart (Novolog) 7 unit SC ACHS [facility] Last Admin: 08/03/18 12:42 Dose: Not Given Insulin Detemir (Levemir) 6 unit SC [facility] Lorazepam (Ativan) 1 mg PO Q8H PRN PRN Reason: Anxiety Last Admin: 08/03/18 06:10 Dose: 1 mg Losartan Potassium (Cozaar) 25 mg PO DAILY [facility] Last Admin: 08/03/18 09:00 Dose: Not Given Metoclopramide HCl (Reglan) 10 mg PO Q6H PRN PRN Reason: Nausea/Vomiting Last Admin: 08/03/18 01:48 Dose: 10 mg Ondansetron HCl (Zofran Inj) 4 mg IVP Q6 PRN PRN Reason: Nausea/Vomiting Last Admin: 08/03/18 14:18 Dose: 4 mg Oxycodone HCl (Oxycodone Immediate Release Tab) 5 mg PO Q4 PRN Last Admin: 08/03/18 01:51 Dose: 5 mg Pantoprazole Sodium (Protonix Ec Tab) 40 mg PO DAILY [facility] Last Admin: 08/03/18 11:20 Dose: Not Given Pantoprazole Sodium (Protonix Inj) 40 mg IVP DAILY [facility] Risperidone (Risperdal Consta) 1 mg IM ONCE ONE Stop: 08/03/18 14:19 - Labs Labs: 08/02/18 16:31 08/02/18 16:31 PT 10.2 SECONDS (9.7-12.2) 08/02/18 16:31 INR 0.9 08/02/18 16:31 APTT 23 SECONDS (21-34) 08/02/18 16:31 - Additional Findings Additional findings: - Constitutional Appears: Non-toxic, Chronically Ill - Head Exam Head Exam: ATRAUMATIC, NORMAL INSPECTION, NORMOCEPHALIC - Eye Exam Eye Exam: EOMI. absent: Conjunctival injection, Scleral icterus - ENT Exam ENT Exam: Mucous Membranes Moist - Neck Exam Neck exam: Normal Exam - Respiratory Exam Respiratory Exam: Clear to Auscultation Bilateral, NORMAL BREATHING PATTERN. absent: Accessory Muscle Use, Chest Wall Tenderness, Decreased Breath Sounds, Rales, Rhonchi, Wheezes - Cardiovascular Exam Cardiovascular Exam: RRR, +S1, +S2. absent: Tachycardia/Bradycardia, JVD - GI/Abdominal Exam GI & Abdominal Exam: Patient refused abdominal exam - Extremities Exam Extremities exam: Positive for: normal inspection, pedal pulses present. Negative for: calf tenderness, pedal edema - Neurological Exam resting comfortably but arousable, awake but somnolent after arousal, only following some commands - Psychiatric Exam Psychiatric exam: sedate, difficult to assess at initial exam; later, acutely anxious/agitated and screaming - Skin Skin Exam: Dry, Intact, Normal Color, Warm Assessment and Plan - Assessment and Plan (Free Text) Assessment: This is a 28yo F with extensive PMH, including poorly controlled IDDM, diabetic gastroparesis, ESRD on HD (MWF), seizure activity, and Munchausens who presented to with complaint of intractable vomiting. Nephro was consulted for continuation of HD. Plan: 1) poorly controlled IDDM 2) diabetic gastroparesis 3) ESRD on HD (MWF) 4) Hx of seizure activity 5) Munchausen's hx 6) HTN 7) recurrent pseudoseizures -HD yesterday, only underwent 2.5 hrs due to acute emesis and shaking episode Pending HD session again tomorrow -pt admits to running out of supplies for home insulin pump x1 month, likely cause of worsening gastroparesis and associated pain -hyperkalemia from admission resolved -continue home antihypertensive regimen -repeated episodes of pseudoseizures (no post-ictal, happening several times in a day, triggered by pain/anxiety), agree with Psych consult, appreciate their recs Patient reviewed and discussed with attending, Dr. Nieves.
--- NOTE | 2018-08-03 16:35 | CP.PCM.CON ---
History of Present Illness - History of Present Illness History of Present Illness: Neurology Consultation Note Consultation Requested by Dr. Lydia Wood Ms. Larry is a 28 yo female with a PMHx of poorly controlled IDDM, ESRD on HD (MWF), diabetic gastroparesis, Munchausen's, and nonepileptic activity. She is well known to our group from previous hospitalizations. She has had complete neurological work-ups during previous hospitalizations, including VEEG and imaging. We were called to see the pt today after questionable seizure activity that occurred at approx 12 noon today. Per documentation from the FINISHING MANAGER, pt began to shake but maintained control over her extremities when being evaluated by the rapid response team members. Pt was also able to respond to painful stimuli during this time per the FINISHING MANAGER documentation. At this time, the pt denies any complaints to me. She denies h/a, dizziness, visual changes, chest pain, palpitations, sob, cough, abd pain, n/v/d, dysuria, paresthesias, fever/chills. Sister at bedside. 1:1 sitter present. Neuro has been consulted to assist in the management and care of this pt. Review of Systems - Constitutional Constitutional: As Per HPI - EENT Eyes: As Per HPI Ears: As Per HPI Nose/Mouth/Throat: As Per HPI - Breasts Breasts: As Per HPI - Cardiovascular Cardiovascular: As Per HPI - Respiratory Respiratory: As Per HPI - Gastrointestinal Gastrointestinal: As Per HPI - Genitourinary Genitourinary: As Per HPI - Reproductive: Female Reproductive:Female: As Per HPI - Menstruation Menstruation: As Per HPI - Musculoskeletal Musculoskeletal: As Per HPI - Integumentary Integumentary: As Per HPI - Neurological Neurological: As Per HPI - Psychiatric Psychiatric: As Per HPI - Endocrine Endocrine: As Per HPI - Hematologic/Lymphatic Hematologic: As Per HPI Past Patient History - Infectious Disease Hx of Infectious Diseases: None - Past Medical History & Family History Past Medical History?: Yes - Past Social History Smoking Status: Never Smoked Alcohol: None Drugs: Denies Home Situation {Lives}: With Family Domestic Violence: Negative - CARDIAC Hx Hypertension: Yes - PULMONARY Hx Bronchitis: Yes - NEUROLOGICAL Hx Seizures: Yes (Pseudo seizures?) - HEENT Hx HEENT Problems: Yes Hx Cataracts: Yes - RENAL Hx Chronic Kidney Disease: Yes - ENDOCRINE/METABOLIC Hx Endocrine Disorders: Yes Hx Diabetes Mellitus Type 2: Yes (on insulin pump) - HEMATOLOGICAL/ONCOLOGICAL Hx Anemia: Yes Hx Human Immunodeficiency Virus (HIV): No - INTEGUMENTARY Hx Dermatological Problems: No - MUSCULOSKELETAL/RHEUMATOLOGICAL Hx Musculoskeletal Disorders: Yes Hx Falls: Yes - GASTROINTESTINAL Hx Gastrointestinal Disorders: Yes (SEE COMMENT) Other/Comment: gastroparesis - GENITOURINARY/GYNECOLOGICAL Hx Genitourinary Disorders: No - PSYCHIATRIC Hx Anxiety: Yes Hx Depression: Yes Hx Substance Use: No - SURGICAL HISTORY Hx Appendectomy: Yes - ANESTHESIA Hx Anesthesia: Yes Hx Anesthesia Reactions: No Hx Malignant Hyperthermia: No Meds Allergies/Adverse Reactions: Allergies Allergy/AdvReac Type Severity Reaction Status Date / Time No Known Allergies Allergy Verified 07/27/18 16:38 - Medications Medications: Current Medications Carvedilol (Coreg) 6.25 mg PO BID [facility] Last Admin: 08/03/18 11:21 Dose: Not Given Clonidine HCl (Catapres-Tts2 0.2 Mg/24 Hr) 1 patch TD QWK [facility] Last Admin: 08/03/18 11:21 Dose: 1 patch Dextrose (Dextrose 50% Inj) 0 ml IV STAT PRN; Protocol PRN Reason: Hypoglycemia Protocol Dextrose (Glutose 15) 0 gm PO ONCE PRN; Protocol PRN Reason: Hypoglycemia Protocol Glucagon (Glucagen Diagnostic Kit) 0 mg IM STAT PRN; Protocol PRN Reason: Hypoglycemia Protocol Last Admin: 08/01/18 21:48 Dose: 1 mg Dextrose (Dextrose 5% In Water 1000 Ml) 1,000 mls @ 0 mls/hr IV .Q0M PRN; Prot ocol PRN Reason: Hypoglycemia Protocol Sodium Chloride (Sodium Chloride 0.9%) 1,000 mls @ 50 mls/hr IV .Q20H [facility] Last Admin: 08/02/18 20:30 Dose: Not Given Insulin Aspart (Novolog) 0 unit SC ACHS [facility]; Protocol Last Admin: 08/03/18 14:17 Dose: 8 units Insulin Aspart (Novolog) 7 unit SC ACHS [facility] Last Admin: 08/03/18 12:42 Dose: Not Given Insulin Detemir (Levemir) 6 unit SC [facility] Lorazepam (Ativan) 1 mg PO Q8H PRN PRN Reason: Anxiety Last Admin: 08/03/18 06:10 Dose: 1 mg Losartan Potassium (Cozaar) 25 mg PO DAILY [facility] Last Admin: 08/03/18 09:00 Dose: Not Given Metoclopramide HCl (Reglan) 10 mg PO Q6H PRN PRN Reason: Nausea/Vomiting Last Admin: 08/03/18 01:48 Dose: 10 mg Ondansetron HCl (Zofran Inj) 4 mg IVP Q6 PRN PRN Reason: Nausea/Vomiting Last Admin: 08/03/18 14:18 Dose: 4 mg Oxycodone HCl (Oxycodone Immediate Release Tab) 5 mg PO Q4 PRN Last Admin: 08/03/18 01:51 Dose: 5 mg Pantoprazole Sodium (Protonix Ec Tab) 40 mg PO DAILY [facility] Last Admin: 08/03/18 11:20 Dose: Not Given Pantoprazole Sodium (Protonix Inj) 40 mg IVP DAILY [facility] Physical Exam - Constitutional Appears: Non-toxic, No Acute Distress - Head Exam Head Exam: ATRAUMATIC, NORMAL INSPECTION, NORMOCEPHALIC - Eye Exam Eye Exam: EOMI, Normal appearance, PERRL Pupil Exam: NORMAL ACCOMODATION, PERRL - ENT Exam ENT Exam: Mucous Membranes Moist - Neck Exam Neck exam: Positive for: Full Rom, Normal Inspection - Respiratory Exam Respiratory Exam: NORMAL BREATHING PATTERN - Cardiovascular Exam Cardiovascular Exam: REGULAR RHYTHM - Extremities Exam Extremities exam: Positive for: full ROM, normal inspection - Neurological Exam Neurological exam: Alert, CN II-XII Intact, Oriented x3, Reflexes Normal Additional comments: AOx3; follows all commands. Speech clear. FROM to all extremities. No focal motor or sensory deficits. No tremors or abnormal myoclonic movements. - Psychiatric Exam Psychiatric exam: Normal Affect, Normal Mood Additional comments: calm, cooperative, follows all commands - Skin Skin Exam: Normal Color Results - Vital Signs Recent Vital Signs: Last Vital Signs Temp 98.2 F 08/02/18 23:15 Pulse 102 H 08/03/18 09:20 Resp 20 08/03/18 09:20 BP 159/91 H 08/03/18 09:20 Pulse Ox 96 08/03/18 09:20 - Labs Result Diagrams: 08/02/18 16:31 08/02/18 16:31 Labs: Laboratory Results - last 24 hr 07/30/18 07/31/18 07/31/18 17:02 06:12 10:19 WBC RBC Hgb Hct MCV MCH MCHC RDW Plt Count MPV Neut % (Auto) Lymph % (Auto) Craig % (Auto) Eos % (Auto) Baso % (Auto) Neut # (Auto) Lymph # (Auto) Craig # (Auto) Eos # (Auto) Baso # (Auto) PT INR APTT Sodium Potassium Chloride Carbon Dioxide Anion Gap BUN Creatinine Est GFR ( Amer) Est GFR (Non-Af Amer) POC Glucose (mg/dL) 267 H 426 H* 32 L* Random Glucose Calcium Phosphorus Magnesium Total Bilirubin AST ALT Alkaline Phosphatase Total Protein Albumin Globulin Albumin/Globulin Ratio 07/31/18 08/01/18 08/01/18 10:41 11:59 12:01 WBC RBC Hgb Hct MCV MCH MCHC RDW Plt Count MPV Neut % (Auto) Lymph % (Auto) Craig % (Auto) Eos % (Auto) Baso % (Auto) Neut # (Auto) Lymph # (Auto) Craig # (Auto) Eos # (Auto) Baso # (Auto) PT INR APTT Sodium Potassium Chloride Carbon Dioxide Anion Gap BUN Creatinine Est GFR ( Amer) Est GFR (Non-Af Amer) POC Glucose (mg/dL) 59 L > 500 H* > 500 H* Random Glucose Calcium Phosphorus Magnesium Total Bilirubin AST ALT Alkaline Phosphatase Total Protein Albumin Globulin Albumin/Globulin Ratio 08/01/18 08/02/18 08/02/18 14:21 14:40 16:31 WBC 11.7 H D RBC 4.68 Hgb 11.9 Hct 37.9 MCV 81.0 MCH 25.5 L MCHC 31.4 L RDW 17.5 H Plt Count 290 MPV 9.8 Neut % (Auto) 72.9 Lymph % (Auto) 19.8 L Craig % (Auto) 6.8 Eos % (Auto) 0.1 Baso % (Auto) 0.4 Neut # (Auto) 8.5 H Lymph # (Auto) 2.3 Craig # (Auto) 0.8 Eos # (Auto) 0.0 Baso # (Auto) 0.0 PT INR APTT Sodium Potassium Chloride Carbon Dioxide Anion Gap BUN Creatinine Est GFR ( Amer) Est GFR (Non-Af Amer) POC Glucose (mg/dL) 469 H* 416 H* Random Glucose Calcium Phosphorus Magnesium Total Bilirubin AST ALT Alkaline Phosphatase Total Protein Albumin Globulin Albumin/Globulin Ratio 08/02/18 08/02/18 08/02/18 16:31 16:31 16:35 WBC RBC Hgb Hct MCV MCH MCHC RDW Plt Count MPV Neut % (Auto) Lymph % (Auto) Craig % (Auto) Eos % (Auto) Baso % (Auto) Neut # (Auto) Lymph # (Auto) Craig # (Auto) Eos # (Auto) Baso # (Auto) PT 10.2 INR 0.9 APTT 23 Sodium 132 Potassium 3.9 Chloride 94 L Carbon Dioxide 21 L Anion Gap 22 H BUN 75 H Creatinine 9.2 H* D Est GFR ( Amer) 6 Est GFR (Non-Af Amer) 5 POC Glucose (mg/dL) 256 H Random Glucose 282 H D Calcium 8.8 Phosphorus 7.7 H Magnesium 3.0 H Total Bilirubin 0.3 AST 31 ALT 22 Alkaline Phosphatase 133 H D Total Protein 6.8 Albumin 4.0 Globulin 2.8 Albumin/Globulin Ratio 1.5 08/02/18 08/02/18 08/02/18 19:11 19:30 21:33 WBC RBC Hgb Hct MCV MCH MCHC RDW Plt Count MPV Neut % (Auto) Lymph % (Auto) Craig % (Auto) Eos % (Auto) Baso % (Auto) Neut # (Auto) Lymph # (Auto) Craig # (Auto) Eos # (Auto) Baso # (Auto) PT INR APTT Sodium Potassium Chloride Carbon Dioxide Anion Gap BUN Creatinine Est GFR ( Amer) Est GFR (Non-Af Amer) POC Glucose (mg/dL) 89 91 93 Random Glucose Calcium Phosphorus Magnesium Total Bilirubin AST ALT Alkaline Phosphatase Total Protein Albumin Globulin Albumin/Globulin Ratio 08/03/18 08/03/18 08/03/18 04:02 06:24 07:50 WBC RBC Hgb Hct MCV MCH MCHC RDW Plt Count MPV Neut % (Auto) Lymph % (Auto) Craig % (Auto) Eos % (Auto) Baso % (Auto) Neut # (Auto) Lymph # (Auto) Craig # (Auto) Eos # (Auto) Baso # (Auto) PT INR APTT Sodium Potassium Chloride Carbon Dioxide Anion Gap BUN Creatinine Est GFR ( Amer) Est GFR (Non-Af Amer) POC Glucose (mg/dL) > 500 H* > 500 H* > 500 H* Random Glucose Calcium Phosphorus Magnesium Total Bilirubin AST ALT Alkaline Phosphatase Total Protein Albumin Globulin Albumin/Globulin Ratio 08/03/18 13:57 WBC RBC Hgb Hct MCV MCH MCHC RDW Plt Count MPV Neut % (Auto) Lymph % (Auto) Craig % (Auto) Eos % (Auto) Baso % (Auto) Neut # (Auto) Lymph # (Auto) Craig # (Auto) Eos # (Auto) Baso # (Auto) PT INR APTT Sodium Potassium Chloride Carbon Dioxide Anion Gap BUN Creatinine Est GFR ( Amer) Est GFR (Non-Af Amer) POC Glucose (mg/dL) 406 H* Random Glucose Calcium Phosphorus Magnesium Total Bilirubin AST ALT Alkaline Phosphatase Total Protein Albumin Globulin Albumin/Globulin Ratio Assessment & Plan (1) Pseudoseizure Assessment and Plan: Pt's exam is nonfocal and unremarkable. These are nonepileptic, pseudoseizures that the pt is exhibiting. No further neuro recommendations at this time. Continue current treatment and supportive measures. Psych consult recommended. Reconsult prn. Thank you for this consultation. Sonia Renee DNP, LEAD WAREHOUSE ASSOCIATE d/w Dr. Cruz Status: Acute - Date & Time Date: 08/03/18 Time: 16:35
--- NOTE | 2018-08-03 18:36 | CP.PCM.PN ---
Subjective - Date & Time of Evaluation Date of Evaluation: 08/03/18 Time of Evaluation: 18:34 - Subjective Subjective: f/u N/V Pt seen with family present and aid present. Family is asking if i am the "new GI doctor". Poor po intake. Now given pain meds. Resting carefully. When awoken, she immedicately starts to cry in pain. SHe takes a drink now without vomiting. No RB, melena, feverm chils, RB, melena, cough, hemoptysis Objective - Vital Signs/Intake and Output Vital Signs (last 24 hours): Temp Pulse Resp BP Pulse Ox 98 F 96 H 18 86/52 L 95 08/03/18 17:00 08/03/18 17:00 08/03/18 17:00 08/03/18 17:00 08/03/18 17:00 Intake and Output: 08/03/18 08/03/18 06:59 18:59 Intake Total 200 Balance 200 - Medications Medications: Current Medications Carvedilol (Coreg) 6.25 mg PO BID [facility] Last Admin: 08/03/18 17:16 Dose: Not Given Clonidine HCl (Catapres-Tts2 0.2 Mg/24 Hr) 1 patch TD QWK [facility] Last Admin: 08/03/18 11:21 Dose: 1 patch Dextrose (Dextrose 50% Inj) 0 ml IV STAT PRN; Protocol PRN Reason: Hypoglycemia Protocol Dextrose (Glutose 15) 0 gm PO ONCE PRN; Protocol PRN Reason: Hypoglycemia Protocol Glucagon (Glucagen Diagnostic Kit) 0 mg IM STAT PRN; Protocol PRN Reason: Hypoglycemia Protocol Last Admin: 08/01/18 21:48 Dose: 1 mg Hydromorphone HCl (Dilaudid) 0.5 mg IVP Q8H PRN PRN Reason: Pain, severe (8-10) Hydroxyzine HCl (Atarax) 25 mg IM Q6H PRN PRN Reason: Agitation Dextrose (Dextrose 5% In Water 1000 Ml) 1,000 mls @ 0 mls/hr IV .Q0M PRN; Protocol PRN Reason: Hypoglycemia Protocol Sodium Chloride (Sodium Chloride 0.9%) 1,000 mls @ 50 mls/hr IV .Q20H [facility] Last Admin: 08/02/18 20:30 Dose: Not Given Insulin Aspart (Novolog) 0 unit SC ACHS [facility]; Protocol Last Admin: 08/03/18 17:37 Dose: 2 units Insulin Aspart (Novolog) 7 unit SC ACHS [facility] Last Admin: 08/03/18 12:42 Dose: Not Given Insulin Detemir (Levemir) 6 unit SC [facility] Lorazepam (Ativan) 1 mg PO Q8H PRN PRN Reason: Anxiety Last Admin: 08/03/18 06:10 Dose: 1 mg Losartan Potassium (Cozaar) 25 mg PO DAILY [facility] Last Admin: 08/03/18 09:00 Dose: Not Given Metoclopramide HCl (Reglan) 10 mg PO Q6H PRN PRN Reason: Nausea/Vomiting Last Admin: 08/03/18 01:48 Dose: 10 mg Ondansetron HCl (Zofran Inj) 4 mg IVP Q6 PRN PRN Reason: Nausea/Vomiting Last Admin: 08/03/18 14:18 Dose: 4 mg Oxycodone HCl (Oxycodone Immediate Release Tab) 5 mg PO Q4 PRN Last Admin: 08/03/18 01:51 Dose: 5 mg Pantoprazole Sodium (Protonix Ec Tab) 40 mg PO DAILY [facility] Last Admin: 08/03/18 11:20 Dose: Not Given Pantoprazole Sodium (Protonix Inj) 40 mg IVP DAILY [facility] - Labs Labs: 08/02/18 16:31 08/02/18 16:31 PT 10.2 SECONDS (9.7-12.2) 08/02/18 16:31 INR 0.9 08/02/18 16:31 APTT 23 SECONDS (21-34) 08/02/18 16:31 - Constitutional Appears: Non-toxic - Respiratory Exam Respiratory Exam: Clear to Ausculation Bilateral - Cardiovascular Exam Cardiovascular Exam: RRR - GI/Abdominal Exam GI & Abdominal Exam: Guarding, Soft, Tenderness, Normal Bowel Sounds. absent: Mass, Rebound Additional comments: soft abdomen, then pt refused further exam. - Neurological Exam Neurological Exam: Alert, Awake Additional comments: uncooperative Assessment and Plan (1) Hyperglycemia Status: Acute (2) Pseudoseizure Status: Acute (3) ESRD (end stage renal disease) on dialysis Status: Chronic (4) Gastroparesis Status: Chronic (5) Abdominal pain Assessment & Plan: And nausea, vomiting. Will see how she does wheb glucose is better controlled. Cont PPI Status: Acute (6) Anxiety Status: Acute (7) Gastritis Status: Acute (8) Diabetes Status: Chronic (9) Diabetes mellitus Status: Chronic
[2018-08-03] MEDS: hydrOXYzine HCl 25 mg/ml Inj IM PRN (18:43)
[2018-08-03] MEDS: HYDROmorphone 0.5 mg/0.5 ml ISec IVP PRN (21:27)
[2018-08-03] MEDS: Sodium Chloride 0.9% 1,000 ML IV SCH (21:46)
[2018-08-03] MEDS ORDERED: Insulin Detemir 100 units/ml Vial (Levemir) SC SCH (22:00)
[2018-08-04] MEDS: hydrOXYzine HCl 25 mg/ml Inj IM PRN ×2 (02:34→07:47)
[2018-08-04] MEDS ORDERED: (Novolin R) Insulin Human Regular 100 units/ml vial SC ONE (06:10)
[2018-08-04] MEDS: (Novolog) Insulin Aspart, Recombinant 100 u/ml 10 ml vial SC SCH ×4 (08:40→21:36)
--- NOTE | 2018-08-04 09:10 | CP.PCM.PN ---
Subjective - Date & Time of Evaluation Date of Evaluation: 08/04/18 Time of Evaluation: 08:30 - Subjective Subjective: Medicine progress note for Dr. King. Patient seen and examined at bedside. Earlier in day, patient was found at refreshment station requesting juice despite knowing she is NPO for possible AVF revision. Patient refused to move from the refreshment station and security had to assist patient to her bed. Patient continued to scream and cry, and request more anxiety medication. Patient was given atarax 25 mg IM for relief; patient still remained agitated. 0.5 mg IVP ativan was given for agitation. Patient has continued abdominal pain, vomiting. Patient continues to ignore orders for no food. Patient continues to sneak juices despite multiple team members encouraging her to not eat. Objective - Vital Signs/Intake and Output Vital Signs (last 24 hours): Temp Pulse Resp BP Pulse Ox 98.0 F 100 H 18 136/84 96 08/04/18 07:30 08/04/18 07:30 08/04/18 07:30 08/04/18 07:30 08/04/18 07:30 - Medications Medications: Current Medications Carvedilol (Coreg) 6.25 mg PO BID [facility] Last Admin: 08/03/18 17:16 Dose: Not Given Clonidine HCl (Catapres-Tts2 0.2 Mg/24 Hr) 1 patch TD QWK [facility] Last Admin: 08/03/18 11:21 Dose: 1 patch Dextrose (Dextrose 50% Inj) 0 ml IV STAT PRN; Protocol PRN Reason: Hypoglycemia Protocol Dextrose (Glutose 15) 0 gm PO ONCE PRN; Protocol PRN Reason: Hypoglycemia Protocol Glucagon (Glucagen Diagnostic Kit) 0 mg IM STAT PRN; Protocol PRN Reason: Hypoglycemia Protocol Last Admin: 08/01/18 21:48 Dose: 1 mg Hydromorphone HCl (Dilaudid) 0.5 mg IVP Q8H PRN PRN Reason: Pain, severe (8-10) Last Admin: 08/03/18 21:27 Dose: 0.5 mg Hydroxyzine HCl (Atarax) 25 mg IM Q6H PRN PRN Reason: Agitation Last Admin: 08/04/18 07:47 Dose: 25 mg Dextrose (Dextrose 5% In Water 1000 Ml) 1,000 mls @ 0 mls/hr IV .Q0M PRN; Protocol PRN Reason: Hypoglycemia Protocol Sodium Chloride (Sodium Chloride 0.9%) 1,000 mls @ 50 mls/hr IV .Q20H [facility] Last Admin: 08/03/18 21:46 Dose: Not Given Insulin Aspart (Novolog) 0 unit SC ACHS [facility]; Protocol Last Admin: 08/04/18 08:40 Dose: 7 units Insulin Aspart (Novolog) 7 unit SC ACHS [facility] Last Admin: 08/03/18 12:42 Dose: Not Given Insulin Detemir (Levemir) 6 unit SC HS [facility] Last Admin: 08/03/18 22:28 Dose: Not Given Lorazepam (Ativan) 1 mg PO Q8H PRN PRN Reason: Anxiety Last Admin: 08/03/18 06:10 Dose: 1 mg Losartan Potassium (Cozaar) 25 mg PO DAILY [facility] Last Admin: 08/03/18 09:00 Dose: Not Given Metoclopramide HCl (Reglan) 10 mg PO Q6H PRN PRN Reason: Nausea/Vomiting Last Admin: 08/03/18 01:48 Dose: 10 mg Metoclopramide HCl (Reglan) 5 mg IVP Q6H PRN PRN Reason: Nausea/Vomiting Ondansetron HCl (Zofran Inj) 4 mg IVP Q6 PRN PRN Reason: Nausea/Vomiting Last Admin: 08/04/18 02:35 Dose: 4 mg Oxycodone HCl (Oxycodone Immediate Release Tab) 5 mg PO Q4 PRN Last Admin: 08/03/18 01:51 Dose: 5 mg Pantoprazole Sodium (Protonix Ec Tab) 40 mg PO DAILY [facility] Last Admin: 08/03/18 11:20 Dose: Not Given Pantoprazole Sodium (Protonix Inj) 40 mg IVP DAILY [facility] - Labs Labs: 08/02/18 16:31 08/02/18 16:31 PT 10.2 SECONDS (9.7-12.2) 08/02/18 16:31 INR 0.9 08/02/18 16:31 APTT 23 SECONDS (21-34) 08/02/18 16:31 - Constitutional Appears: Other (Patient continues to refuse medical examination. 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 Personality disorder F/u psych recs - zoloft 25 mg Po daily for depression/anxiety, increased to 100 mg slowly - seroquel for mood swings, 50 mg daily, 50 mg HS -atarax & inderal for anxiety - klonopin 0.5 mg PO BID for anxiety while in hospital - psychoeducation - [facility] for severe personality disorder - see note for further details F/u neuro recs - pseudoseizures - no further recs - reconsult as necessary 1:1 sitter Intractable vomiting, acute Gastritis, Vomiting likely 2/2 diabetic gastroparesis Reglan 5 mg Q6 prn, zofran 4mg Q6H PRN Dilaudid 0.5 mg Q8H Protonix 40 mg IVP daily CLD F/u GI recs - pt cannot tolerate CT/ nuclear gastric emptying - lipase wnl - possible dependency on pain medication IDDM, uncontrolled Diabetic Gastroparesis Hgb A1c 07/05/18: 63.1 BG fluctuating from 80s to 500s Novolog 70/30 20 units starting 08/05 AM Novolog 70/30 10 units starting 08/04 ISS aspart ACHS Hypoglycemia protocol Accuchecks ACHS NS @ 60 mls/hr ESRD on HD ([facility]) Cr 5.8 OA Cr worsening, now 10s HD MWF Nephro consulted: Dr. Nieves - help appreciated AVF revision scheduled for 08/04 Hypertension home Clonidine 0.2 TD weekly, losartan 25 mg PO daily start coreg 6.25 mg PO BID PPx DVT: CI due to hematemesis, SCDs only GI: home Protonix 40mg IVP Diet: liquid diet
[2018-08-04] MEDS: HYDROmorphone 0.5 mg/0.5 ml ISec IVP PRN ×2 (11:12→19:23)
--- NOTE | 2018-08-04 11:21 | CP.PCM.PN ---
Subjective - Date & Time of Evaluation Date of Evaluation: 08/04/18 Time of Evaluation: 11:18 - Subjective Subjective: RN notes and progress notes read. Numerous issues: pseudoseizures, abdominal pain, uncontrolled hyperglycemia, self-induced vomiting. All very difficult to manage.[facility] with family present, crying and screaming in pain, and jumps when I examine the abdomen Objective - Vital Signs/Intake and Output Vital Signs (last 24 hours): Temp Pulse Resp BP Pulse Ox 98.0 F 100 H 18 136/84 96 08/04/18 07:30 08/04/18 07:30 08/04/18 07:30 08/04/18 07:30 08/04/18 07:30 - Medications Medications: Current Medications Carvedilol (Coreg) 6.25 mg PO BID [facility] Last Admin: 08/04/18 10:42 Dose: Not Given Clonidine HCl (Catapres-Tts2 0.2 Mg/24 Hr) 1 patch TD QWK [facility] Last Admin: 08/03/18 11:21 Dose: 1 patch Dextrose (Dextrose 50% Inj) 0 ml IV STAT PRN; Protocol PRN Reason: Hypoglycemia Protocol Dextrose (Glutose 15) 0 gm PO ONCE PRN; Protocol PRN Reason: Hypoglycemia Protocol Glucagon (Glucagen Diagnostic Kit) 0 mg IM STAT PRN; Protocol PRN Reason: Hypoglycemia Protocol Last Admin: 08/01/18 21:48 Dose: 1 mg Hydromorphone HCl (Dilaudid) 0.5 mg IVP Q8H PRN PRN Reason: Pain, severe (8-10) Last Admin: 08/04/18 11:12 Dose: 0.5 mg Hydroxyzine HCl (Atarax) 25 mg IM Q6H PRN PRN Reason: Agitation Last Admin: 08/04/18 07:47 Dose: 25 mg Dextrose (Dextrose 5% In Water 1000 Ml) 1,000 mls @ 0 mls/hr IV .Q0M PRN; Protocol PRN Reason: Hypoglycemia Protocol Insulin Aspart (Novolog) 0 unit SC ACHS [facility]; Protocol Last Admin: 08/04/18 08:40 Dose: 7 units Insulin Aspart (Novolog Mix 70/30 (70/30 Units/Ml)) 20 units SC DAILY [facility] Insulin Aspart (Novolog Mix 70/30 (70/30 Units/Ml)) 10 units SC HS [facility] Lorazepam (Ativan) 1 mg IM Q8H PRN PRN Reason: Anxiety Losartan Potassium (Cozaar) 25 mg PO DAILY [facility] Last Admin: 08/04/18 10:43 Dose: Not Given Metoclopramide HCl (Reglan) 5 mg IVP Q6H PRN PRN Reason: Nausea/Vomiting Ondansetron HCl (Zofran Inj) 4 mg IVP Q6 PRN PRN Reason: Nausea/Vomiting Last Admin: 08/04/18 11:07 Dose: 4 mg Pantoprazole Sodium (Protonix Inj) 40 mg IVP DAILY [facility] Last Admin: 08/04/18 11:06 Dose: 40 mg - Labs Labs: 08/02/18 16:31 PT 10.2 SECONDS (9.7-12.2) 08/02/18 16:31 INR 0.9 08/02/18 16:31 APTT 23 SECONDS (21-34) 08/02/18 16:31 - Constitutional Appears: Agitated - Respiratory Exam Respiratory Exam: NORMAL BREATHING PATTERN - Cardiovascular Exam Cardiovascular Exam: REGULAR RHYTHM - GI/Abdominal Exam GI & Abdominal Exam: Soft, Tenderness (Writhes in pain with palpation of a bdomen) - Neurological Exam Neurological Exam: Alert (agitated, hysterical) Assessment and Plan (1) ESRD (end stage renal disease) on dialysis Status: Chronic (2) Gastroparesis Assessment & Plan: Now with abdominal pain, hysteria, uncontrolled hyperglycemia. May be dependent on pain medications. Rec: Psych consult. Pain management consult. CT abdomen to exclude intra- abdominal pathology as cause of pain. Check labwork, Lipase. Patient would not tolerate nuclear gastric emptying scan nor any contrast for CT in her present condition Status: Chronic (3) Anxiety Status: Acute
--- NOTE | 2018-08-04 12:09 | PCM.PSYCH ---
Initial Psychiatric Evaluation - Initial Psychiatric Evaluation Type of Admission: Voluntary Chief Complaint (in patient's own words): "I have pain" History of Present Illness and Precipitating Events: The pt is seen, chart reviewed and case discussed. Consult was requested for her psych sxs. She is well-known from previous consults She is a 28 y/o female, single, with no child, lives with her mother, unemployed as she lost her job at [employer] in July 2016. She reported some "hypoglycemia" induced seizures, which started 6 years ago. 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 She was upset that people do not believe her. However, even this selling underwriter witnessed one of them in the past and she would feign a seizure and ask immediately for ativan in a second or two. EEG was "normal" She admitted in the past that she had been stressed b/c of a break up with her GF who later , and b/c of losing her job. She is now more worried and angry about her "pain." She is depressed and is very anxious. 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 She eventually developed ESRD and is now on HD. Lace Stripper spoke to her mo too and she said that the pt was somewhat better at home. She also reported that the pt was confused and hallucinating yesterday - likely delirium due to medical issues. Today, she is not confused. Pt also voiced SI - wishing to . No plans or urge now - she is on 1:1 though She fulfills criteria for major depression and generalized anxiety. Feels very anaya and irate too. No drug/alcohol hx No trauma hx except for the abovementioned losses. Past psych hx: Denies. She was never able to attend a [facility] program b/c of multiple medical admissions. Family psych hx: Denies Med hx: Cataracts and DM. Current Medications: Active Medications Generic Name Dose Route Start Last Admin Trade Name Freq PRN Reason Stop Dose Admin Carvedilol 6.25 mg 07/31/18 10:00 08/04/18 10:42 Coreg PO Not Given BID [facility] Clonidine HCl 1 patch 08/03/18 10:08/03/18 11:21 Catapres-Tts2 0.2 Mg/24 Hr TD 1 patch QWK [facility] Administration Dextrose 0 ml 07/29/18 15:25 Dextrose 50% Inj IV STAT PRN Hypoglycemia Protocol Protocol Dextrose 0 gm 07/29/18 15:25 Glutose 15 PO ONCE PRN Hypoglycemia Protocol Protocol Glucagon 0 mg 07/29/18 15:25 08/01/18 21:48 Glucagen Diagnostic Kit IM 1 mg STAT PRN Administration Hypoglycemia Protocol Protocol Hydromorphone HCl 0.5 mg 08/03/18 17:28 08/04/18 11:12 Dilaudid IVP 0.5 mg Q8H PRN Administration Pain, severe (8-10) Hydroxyzine HCl 25 mg 08/03/18 17:39 08/04/18 07:47 Atarax IM 25 mg Q6H PRN Administration Agitation Dextrose 1,000 mls @ 0 mls/hr 07/29/18 15:25 Dextrose 5% In Water 1000 Ml IV .Q0M PRN Hypoglycemia Protocol Protocol Per Protocol Insulin Aspart 0 unit 07/31/18 06:00 08/04/18 08:40 Novolog SC 7 units ACHS [facility] Administration Protocol Insulin Aspart 20 units 08/05/18 10:00 Novolog Mix 70/30 (70/30 Units/Ml) SC DAILY [facility] Insulin Aspart 10 units 08/04/18 22:00 Novolog Mix 70/30 (70/30 Units/Ml) SC HS [facility] Lorazepam 1 mg 08/04/18 10:26 Ativan IM Q8H PRN Anxiety Losartan Potassium 25 mg 07/29/18 10:00 08/04/18 10:43 Cozaar PO Not Given DAILY [facility] Metoclopramide HCl 5 mg 08/04/18 07:54 Reglan IVP Q6H PRN Nausea/Vomiting Ondansetron HCl 4 mg 07/27/18 22:00 08/04/18 11:07 Zofran Inj IVP 4 mg Q6 PRN Administration Nausea/Vomiting Pantoprazole Sodium 40 mg 08/03/18 14:00 08/04/18 11:06 Protonix Inj IVP 40 mg DAILY [facility] Administration Past Psychiatric History - Past Psychiatric History Previous Treatment History: Intensive Outpatient Pertinent Medical Hx (Current Medical&Sleep Prob, Allergies): Allergies Allergy/AdvReac Type Severity Reaction Status Date / Time No Known Allergies Allergy Verified 07/27/18 16:38 Pantoprazole [Protonix EC Tab] 40 mg PO DAILY #30 ect 03/08/18 Calcitriol [Rocaltrol] 0.25 mcg PO MWF #6 sgl 05/11/18 Ondansetron ODT [Zofran ODT] 4 mg PO Q6 PRN #16 odt 06/02/18 Carvedilol [Coreg] 6.25 mg PO Q12 #60 tab 06/11/18 Insulin Detemir [Levemir] 15 units SC DAILY 06/20/18 Metoclopramide HCl [Reglan] 10 mg PO QID 07/05/18 cloNIDine 0.2 mg/24 hr [catapres-TTS2 0.2 mg/24 hr] 1 patch TD QWK 07/05/18 Ergocalciferol (Vitamin D2) [Vitamin D2] 1 cap PO QWK 07/27/18 Losartan Potassium 1 tab PO DAILY 07/27/18 Metoclopramide [Reglan] 1 tab PO QID 07/27/18 Ondansetron HCl [Zofran] 1 tab PO Q6 PRN 07/27/18 Pantoprazole [Protonix EC Tab] 1 tab PO DAILY 07/27/18 Sodium Bicarbonate Tab 10 gr PO BID 07/27/18 amLODIPine [Norvasc] 1 tab PO DAILY 07/27/18 hydrOXYzine HCl [Atarax] 1 tab PO HS PRN 07/27/18 Review of Systems - Psychiatric Psychiatric: Abnormal Sleep Pattern, Anhedonia, Anxiety, Behavioral Changes, Change in Appetite, Confusion, Depression, Difficulty Concentrating, Irritability, Suicidal Ideation (no plan or urge). absent: Hallucinations, Homicidal Ideation, Paranoia Mental Status Examination - Personal Presentation Personal Presentation: Looks older than stated age - Affect Affect: Other (labile) - Motor Activity Motor Activity: Psychomotor Agitation - Reliability in Providing Information Reliability in Providing Information: Poor, due to alteration in thoughts - Speech Speech: Disorganized - Mood Mood: Depressed, Anxious - Formal Thought Process Formal Thought Process: Circumstantial - Cognitive Functions Orientation: Person, Place, Time Sensorium: Drowsy Attention/Concentration: Easily distracted Abstract Thinking: [place] Estimate of Intelligence: Average Judgement: Imparied, as evidence by: Poor judgement Memory: Recent impaired, as evidence by: Inability to recall events of the day, Remote impaired as evidenced by: Inability to recall sig life events - Risk Risk: Diminished functioning - Strength & Assets Inventory Strength & Assets Inventory: Family support - Limitations Limitations: Other DSM 5 DX - DSM 5 DSM 5 Diagnosis: Major depressive d/o - recurrent, severe without psychosis Conversion d/o Factitious d/o Personality disorder Generalized anxiety d/o - Recommended/Plan of Treatment Treatment Recommendations and Plan of Treatment: Zoloft for depression and anxiety - dose to be increased to 100 mg range slowly Seroquel for mood swings, irritability PRN Atarax and inderal for anxiety Klonopin for anxiety while she is here in the hospital. She is overusing ativan otherwise. Ativan will be d/c'ed Limit setting, support, psychoeducation SW can contact if she can be admitted to [facility] due to her severe personality disorder. Also, [facility] and [facility] may have specialized inpatient units for patients with complex presentations If cannot be admitted (due to hemodialysis for instance) she can be referred to [facility] program (intensive outpatient). 35 min
[2018-08-04] MEDS: Sodium Chloride 0.9% 1,000 ML IV SCH (13:18)
[2018-08-04 13:32] LABS: BASO # 0.1 K/uL (0.0-0.2); BASO % 1.1 % (0.0-2.0); HEMOGLOBIN 11.9 g/dL (11.0-16.0); LYMPH # 2.1 K/uL (1.0-4.3); LYMPH % 17.1 % (20.0-40.0); MEAN CELL VOLUME 80.1 fL (81.0-99.0); MEAN CORPUSCULAR HEMOGLOBIN 26.3 pg (27.0-31.0); MEAN CORPUSCULAR HGB CONC 32.8 g/dL (33.0-37.0); MEAN PLATELET VOLUME 9.7 fL (7.2-11.7); MONO # 0.7 K/uL (0.0-0.8); MONO % 5.5 % (0.0-10.0); NEUT # 9.4 K/uL (1.8-7.0); NEUT % 76.3 % (50.0-75.0); RBC 4.52 Mil/uL (3.80-5.20); RED CELL DISTRIBUTION WIDTH 17.9 % (11.5-14.5); WHITE BLOOD COUNT 12.3 K/uL (4.8-10.8)
[2018-08-04 14:15] LABS: ALB/GLOB RATIO 1.6 (1.0-2.1); ALBUMIN 4.2 g/dL (3.5-5.0); CALCIUM 9.1 mg/dl (8.6-10.4)
--- NOTE | 2018-08-04 14:54 | CP.PCM.PN ---
Subjective - Date & Time of Evaluation Date of Evaluation: 08/04/18 Time of Evaluation: 09:30 - Subjective Subjective: Nephro Progress Note for Dr. Nieves Service Oracio Nash DO, IM PGY-3 Patient seen and examined at bedside. 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 Overnight, caught by nursing attempting to self-induce vomiting with fingers in her throat. Psych consulted by primary team, pending their recs. Patient pending HD today. Resting in bed, 1:1, complains of abd pain and nausea, but not overtly in distress at time of exam. Objective - Vital Signs/Intake and Output Vital Signs (last 24 hours): Temp Pulse Resp BP Pulse Ox 98.2 F 105 H 18 119/83 98 08/04/18 13:15 08/04/18 13:15 08/04/18 13:15 08/04/18 13:53 08/04/18 13:15 - Medications Medications: Current Medications Carvedilol (Coreg) 6.25 mg PO BID [facility] Last Admin: 08/04/18 10:42 Dose: Not Given Clonazepam (Klonopin) 0.5 mg PO BID [facility] Clonidine HCl (Catapres-Tts2 0.2 Mg/24 Hr) 1 patch TD QWK [facility] Last Admin: 08/03/18 11:21 Dose: 1 patch Dextrose (Dextrose 50% Inj) 0 ml IV STAT PRN; Protocol PRN Reason: Hypoglycemia Protocol Dextrose (Glutose 15) 0 gm PO ONCE PRN; Protocol PRN Reason: Hypoglycemia Protocol Glucagon (Glucagen Diagnostic Kit) 0 mg IM STAT PRN; Protocol PRN Reason: Hypoglycemia Protocol Last Admin: 08/01/18 21:48 Dose: 1 mg Hydromorphone HCl (Dilaudid) 0.5 mg IVP Q8H PRN PRN Reason: Pain, severe (8-10) Last Admin: 08/04/18 11:12 Dose: 0.5 mg Hydroxyzine HCl (Atarax) 25 mg IM Q6H PRN PRN Reason: Agitation Last Admin: 08/04/18 07:47 Dose: 25 mg Hydroxyzine HCl (Atarax) 25 mg PO Q4H PRN PRN Reason: Anxiety Dextrose (Dextrose 5% In Water 1000 Ml) 1,000 mls @ 0 mls/hr IV .Q0M PRN; Protocol PRN Reason: Hypoglycemia Protocol Sodium Chloride (Sodium Chloride 0.9%) 1,000 mls @ 60 mls/hr IV .[id number] [facility] Last Admin: 08/04/18 13:18 Dose: Not Given Insulin Aspart (Novolog) 0 unit SC ACHS [facility]; Protocol Last Admin: 08/04/18 12:57 Dose: Not Given Insulin Aspart (Novolog Mix 70/30 (70/30 Units/Ml)) 20 units SC DAILY [facility] Insulin Aspart (Novolog Mix 70/30 (70/30 Units/Ml)) 10 units SC HS [facility] Lorazepam (Ativan) 1 mg IM Q8H PRN PRN Reason: Anxiety Losartan Potassium (Cozaar) 25 mg PO DAILY [facility] Last Admin: 08/04/18 10:43 Dose: Not Given Metoclopramide HCl (Reglan) 5 mg IVP Q6H PRN PRN Reason: Nausea/Vomiting Ondansetron HCl (Zofran Inj) 4 mg IVP Q6 PRN PRN Reason: Nausea/Vomiting Last Admin: 08/04/18 11:07 Dose: 4 mg Pantoprazole Sodium (Protonix Inj) 40 mg IVP DAILY [facility] Last Admin: 08/04/18 11:06 Dose: 40 mg Quetiapine Fumarate (Seroquel) 50 mg PO DAILY [facility] Last Admin: 08/04/18 13:18 Dose: Not Given Quetiapine Fumarate (Seroquel) 50 mg PO HS [facility] Sertraline HCl (Zoloft) 25 mg PO DAILY [facility] Last Admin: 08/04/18 13:18 Dose: Not Given - Labs Labs: 08/04/18 13:24 08/04/18 13:24 PT 10.2 SECONDS (9.7-12.2) 08/02/18 16:31 INR 0.9 08/02/18 16:31 APTT 23 SECONDS (21-34) 08/02/18 16:31 - Additional Findings Additional findings: - Constitutional Appears: Non-toxic, Chronically Ill, Lethargic - Head Exam Head Exam: ATRAUMATIC, NORMAL INSPECTION, NORMOCEPHALIC - Eye Exam Eye Exam: absent: Conjunctival injection, Scleral icterus - ENT Exam ENT Exam: Mucous Membranes Moist - Neck Exam Neck exam: Normal Exam - Respiratory Exam Respiratory Exam: Clear to Auscultation Bilateral, NORMAL BREATHING PATTERN. absent: Accessory Muscle Use, Chest Wall Tenderness, Decreased Breath Sounds, Rales, Rhonchi, Wheezes - Cardiovascular Exam Cardiovascular Exam: RRR, +S1, +S2. absent: Tachycardia/Bradycardia, JVD - GI/Abdominal Exam GI & Abdominal Exam: Reports tenderness on abdominal palpation but does not exhibit signs of pain/discomfort - Extremities Exam Extremities exam: Positive for: normal inspection, pedal pulses present. Negative for: calf tenderness, pedal edema - Neurological Exam resting comfortably but arousable, awake but somnolent after arousal, only following some commands - Psychiatric Exam Psychiatric exam: sedate, difficult to assess - Skin Skin Exam: Dry, Intact, Normal Color, Warm Assessment and Plan - Assessment and Plan (Free Text) Assessment: This is a 28yo F with extensive PMH, including poorly controlled IDDM, diabetic gastroparesis, ESRD on HD (MWF), seizure activity, and Munchausens who presented to with complaint of intractable vomiting. Nephro was consulted for continuation of HD. Plan: 1) poorly controlled IDDM 2) diabetic gastroparesis 3) ESRD on HD (MWF) 4) Hx of seizure activity 5) Munchausen's hx 6) HTN 7) recurrent pseudoseizures -pending HD again today -pt admits to running out of supplies for home insulin pump x1 month, likely c ause of worsening gastroparesis and associated pain -hyperkalemia from admission resolved -continue home antihypertensive regimen -repeated episodes of pseudoseizures (no post-ictal, happening several times in a day, triggered by pain/anxiety), caught trying to induce vomiting overnight -Agree with psych consult, appreciate their recs Patient reviewed and discussed with attending, Dr. Nieves.
[2018-08-04] MEDS: (Novolog Mix 70/30) Insulin Aspart/Insulin Aspar 100 units/ml SC SCH (21:36)
[2018-08-05] MEDS: HYDROmorphone 0.5 mg/0.5 ml ISec IVP PRN (08:29)
[2018-08-05] MEDS: (Novolog) Insulin Aspart, Recombinant 100 u/ml 10 ml vial SC SCH ×4 (08:30→22:14)
--- NOTE | 2018-08-05 09:55 | CT ---
CT abdomen and pelvis HISTORY: Abdominal pain. COMPARISON: 04/05/2017 TECHNIQUE: Multiple contiguous axial images were performed through the abdomen and pelvis without the use of intravenous contrast. Subsequently, sagittal and coronal reformatted images were obtained. This CT exam was performed using one or more of the following dose reduction techniques: Automated exposure control, adjustment of the mA and/or kV according to patient size, and/or use of iterative reconstruction technique. Findings: Mild atelectasis at the left lung base. No pleural or pericardial effusion. Prominent liver with mild fatty infiltration. Gallbladder is preserved. Spleen is preserved. Adrenal glands are preserved. Pancreas is grossly preserved; however, evaluation is somewhat limited without contrast. In addition, given the mesenteric fat stranding from a possible mesenteritis, evaluation for acute pancreatitis is also somewhat limited. In addition, some motion artifact at that level limits evaluation. If there is concern for pancreatic pathology, consider correlation with a contrast-enhanced CT scan. Mild thickening of the distal esophagus which may represent a reflux esophagitis. Clinical correlation. Right kidney: Question punctate 2 millimeter nonobstructive calculus in the lower pole of the right kidney. No gross hydronephrosis. Left Kidney: No gross calculi or hydronephrosis. Mildly thick-walled urinary bladder. Heterogeneous uterus. Prominent fecal retention in the rectum. Prominent fecal retention in the left hemicolon. Appendix is visualized and is within normal limits. Prominent shotty lymph nodes within the para-aortic and mesenteric regions with hazy stranding in the mesenteric fat suggestive for a mesenteric adenitis/mesenteritis. Atherosclerotic calcification and plaque within the aorta. Degenerative changes in the spine. Grade 1 anterolisthesis of L5 on S1 with associated pars defects. Central venous catheter extending into the right atrium of the heart. Impression: 1. Prominent shotty lymph nodes within the para-aortic and mesenteric regions with hazy stranding in the mesenteric fat suggestive for a mesenteric adenitis/mesenteritis. Clinical correlation. 2. Prominent fecal retention in the rectum and left hemicolon. 3. Prominent liver with mild fatty infiltration. 4. Pancreas is grossly preserved; however, evaluation is somewhat limited without contrast. In addition, given the mesenteric fat stranding from a possible mesenteritis, evaluation for acute pancreatitis is also somewhat limited. In addition, some motion artifact at that level limits evaluation. If there is concern for pancreatic pathology, consider correlation with a contrast-enhanced CT scan. 5. Mildly thick-walled urinary bladder. Clinical correlation. 6. Grade 1 anterolisthesis of L5 on S1 with associated pars defects. A preliminary report was generated at 8:24 p.m. on 08/04/[address] Jeremy Bailey from [facility].
[2018-08-05] MEDS: (Novolog Mix 70/30) Insulin Aspart/Insulin Aspar 100 units/ml SC SCH ×2 (10:59→22:19)
--- NOTE | 2018-08-05 11:40 | CP.PCM.PN ---
Subjective - Date & Time of Evaluation Date of Evaluation: 08/05/18 Time of Evaluation: 11:30 - Subjective Subjective: f/u abd pain, nausea. Pt is seen with aid. Discusssed with nurse. + abd pain- mid sharp. + constip No RB, melena, fever, chills , YOUNGER, cough, hematuria, hemoptysis Objective - Vital Signs/Intake and Output Vital Signs (last 24 hours): Temp Pulse Resp BP Pulse Ox 97.8 F 95 H 20 98/62 L 99 08/05/18 00:00 08/05/18 00:00 08/05/18 00:00 08/05/18 00:00 08/05/18 00:00 Intake and Output: 08/05/18 08/05/18 06:59 18:59 Intake Total 100 Balance 100 - Medications Medications: Current Medications Carvedilol (Coreg) 6.25 mg PO BID [facility] Last Admin: 08/05/18 10:58 Dose: 6.25 mg Clonazepam (Klonopin) 0.5 mg PO BID [facility] Last Admin: 08/05/18 10:59 Dose: 0.5 mg Clonidine HCl (Catapres-Tts2 0.2 Mg/24 Hr) 1 patch TD QWK [facility] Last Admin: 08/03/18 11:21 Dose: 1 patch Dextrose (Dextrose 50% Inj) 0 ml IV STAT PRN; Protocol PRN Reason: Hypoglycemia Protocol Dextrose (Glutose 15) 0 gm PO ONCE PRN; Protocol PRN Reason: Hypoglycemia Protocol Glucagon (Glucagen Diagnostic Kit) 0 mg IM STAT PRN; Protocol PRN Reason: Hypoglycemia Protocol Last Admin: 08/01/18 21:48 Dose: 1 mg Hydromorphone HCl (Dilaudid) 0.5 mg IVP Q8H PRN PRN Reason: Pain, severe (8-10) Last Admin: 08/05/18 08:29 Dose: 0.5 mg Hydroxyzine HCl (Atarax) 25 mg IM Q6H PRN PRN Reason: Agitation Last Admin: 08/04/18 07:47 Dose: 25 mg Hydroxyzine HCl (Atarax) 25 mg PO Q4H PRN PRN Reason: Anxiety Dextrose (Dextrose 5% In Water 1000 Ml) 1,000 mls @ 0 mls/hr IV .Q0M PRN; Protocol PRN Reason: Hypoglycemia Protocol Sodium Chloride (Sodium Chloride 0.9%) 1,000 mls @ 60 mls/hr IV .[id number] [facility] Last Admin: 08/04/18 13:18 Dose: Not Given Insulin Aspart (Novolog) 0 unit SC ACHS [facility]; Protocol Last Admin: 08/05/18 08:30 Dose: 8 units Insulin Aspart (Novolog Mix 70/30 (70/30 Units/Ml)) 20 units SC DAILY [facility] Last Admin: 08/05/18 10:59 Dose: 20 units Insulin Aspart (Novolog Mix 70/30 (70/30 Units/Ml)) 10 units SC HS [facility] Last Admin: 08/04/18 21:36 Dose: 10 units Lorazepam (Ativan) 1 mg IM Q8H PRN PRN Reason: Anxiety Last Admin: 08/04/18 17:53 Dose: 1 mg Losartan Potassium (Cozaar) 25 mg PO DAILY [facility] Last Admin: 08/05/18 10:58 Dose: 25 mg Metoclopramide HCl (Reglan) 5 mg IVP Q6H PRN PRN Reason: Nausea/Vomiting Ondansetron HCl (Zofran Inj) 4 mg IVP Q6 PRN PRN Reason: Nausea/Vomiting Last Admin: 08/04/18 11:07 Dose: 4 mg Pantoprazole Sodium (Protonix Inj) 40 mg IVP DAILY [facility] Last Admin: 08/05/18 10:59 Dose: 40 mg Quetiapine Fumarate (Seroquel) 50 mg PO DAILY [facility] Last Admin: 08/05/18 10:58 Dose: 50 mg Quetiapine Fumarate (Seroquel) 50 mg PO [facility] Last Admin: 08/04/18 21:36 Dose: 50 mg Sertraline HCl (Zoloft) 25 mg PO DAILY [facility] Last Admin: 08/05/18 10:58 Dose: 25 mg - Labs Labs: 08/04/18 13:24 08/04/18 13:24 PT 10.2 SECONDS (9.7-12.2) 08/02/18 16:31 INR 0.9 08/02/18 16:31 APTT 23 SECONDS (21-34) 08/02/18 16:31 - Constitutional Appears: Non-toxic - GI/Abdominal Exam GI & Abdominal Exam: Soft, Tenderness, Normal Bowel Sounds Additional comments: uncooperative Assessment and Plan (1) Hyperglycemia Status: Acute (2) Pseudoseizure Status: Acute (3) ESRD (end stage renal disease) on dialysis Status: Chronic (4) Gastroparesis Status: Chronic (5) Abdominal pain Assessment & Plan: Lipase- nl. CT- no pancreatiitis. + fecal stasis. Treat with laxatives, suppositories Status: Acute (6) Anxiety Status: Acute (7) Gastritis Status: Acute (8) Diabetes Status: Chronic (9) Diabetes mellitus Status: Chronic
[2018-08-05] MEDS: POLYETHYLENE GLYCOL 3350 17 GM/Dose PACKET PO SCH (13:40)
--- NOTE | 2018-08-05 13:50 | PCM.PYCHPN ---
Psychiatric Progress Note - Psychiatric Progress Note Patient seen today, length of contact: 16 min Patient Chief Complaint: "I am thirsty" Problems Identified/Issues Discussed: The pt is seen, chart reviewed, case discussed with staff. Support and psychoeducation given She looks calmer and more cooperative today Pt is improving slowly and needs more time, still has ongoing symptoms. No SEs from medications, risks discussed. Medication Change: Yes Medical Record Reviewed: Yes Mental Status Examination - Cognitive Function Orientation: Person, Place, Time Memory: Impaired Attention: Poor Concentration: Poor Association: WNL Fund of Knowledge: WNL - Mood Mood: Depressed, Anxious - Affect Affect: Blunted - Speech Speech: Soft - Formal Thought Process Formal Thought Process: No Impairment - Suicidal Ideation Suicidal Ideation: No - Homicidal Ideation Homicidal Ideation: No Goal/Treatment Plan - Goal/Treatment Plan Need for Continued Stay: Other (medical) Progress Toward Problem(s) and Goals/Treatment Plan: Zoloft for depression and anxiety - dose to be increased to 100 mg range slowly Seroquel for mood swings, irritability PRN Atarax and inderal for anxiety Klonopin for anxiety while she is here in the hospital. She is overusing ativan otherwise. Ativan will be d/c'ed Limit setting, support, psychoeducation SW can contact if she can be admitted to [facility] due to her severe personality disorder. Also, [facility] and [facility] may have specialized inpatient units for patients with complex presentations If cannot be admitted (due to hemodialysis for instance) she can be referred to [facility] program (intensive outpatient).
--- NOTE | 2018-08-05 16:49 | CP.PCM.PN ---
Subjective - Date & Time of Evaluation Date of Evaluation: 08/05/18 Time of Evaluation: 09:30 - Subjective Subjective: Nephro Progress Note for Dr. Ezequiel Nash DO, IM PGY-3 Patient seen and examined at bedside. Pt had just received her pain medications, so somnolent, mostly unresponsive to examiner. 1:1 remains due to reported SI. 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 Objective - Vital Signs/Intake and Output Vital Signs (last 24 hours): Temp Pulse Resp BP Pulse Ox 98.8 F 100 H 20 165/100 H 95 08/05/18 09:00 08/05/18 09:00 08/05/18 09:00 08/05/18 09:00 08/05/18 09:00 Intake and Output: 08/05/18 08/05/18 06:59 18:59 Intake Total 100 200 Balance 100 200 - Medications Medications: Current Medications Carvedilol (Coreg) 6.25 mg PO BID [facility] Last Admin: 08/05/18 10:58 Dose: 6.25 mg Clonazepam (Klonopin) 0.5 mg PO BID [facility] Last Admin: 08/05/18 10:59 Dose: 0.5 mg Clonidine HCl (Catapres-Tts2 0.2 Mg/24 Hr) 1 patch TD QWK [facility] Last Admin: 08/03/18 11:21 Dose: 1 patch Dextrose (Dextrose 50% Inj) 0 ml IV STAT PRN; Protocol PRN Reason: Hypoglycemia Protocol Dextrose (Glutose 15) 0 gm PO ONCE PRN; Protocol PRN Reason: Hypoglycemia Protocol Docusate Sodium (Colace) 100 mg PO BID [facility] Glucagon (Glucagen Diagnostic Kit) 0 mg IM STAT PRN; Protocol PRN Reason: Hypoglycemia Protocol Last Admin: 08/01/18 21:48 Dose: 1 mg Hydromorphone HCl (Dilaudid) 0.5 mg IVP Q8H PRN PRN Reason: Pain, severe (8-10) Last Admin: 08/05/18 08:29 Dose: 0.5 mg Hydroxyzine HCl (Atarax) 25 mg IM Q6H PRN PRN Reason: Agitation Last Admin: 08/04/18 07:47 Dose: 25 mg Hydroxyzine HCl (Atarax) 25 mg PO Q4H PRN PRN Reason: Anxiety Dextrose (Dextrose 5% In Water 1000 Ml) 1,000 mls @ 0 mls/hr IV .Q0M PRN; Protocol PRN Reason: Hypoglycemia Protocol Sodium Chloride (Sodium Chloride 0.9%) 1,000 mls @ 60 mls/hr IV .[id number] [facility] Last Admin: 08/04/18 13:18 Dose: Not Given Insulin Aspart (Novolog) 0 unit SC ACHS [facility]; Protocol Last Admin: 08/05/18 12:30 Dose: 8 units Insulin Aspart (Novolog Mix 70/30 (70/30 Units/Ml)) 20 units SC DAILY [facility] Last Admin: 08/05/18 10:59 Dose: 20 units Insulin Aspart (Novolog Mix 70/30 (70/30 Units/Ml)) 10 units SC HS [facility] Last Admin: 08/04/18 21:36 Dose: 10 units Lorazepam (Ativan) 1 mg IM Q8H PRN PRN Reason: Anxiety Last Admin: 08/04/18 17:53 Dose: 1 mg Losartan Potassium (Cozaar) 25 mg PO DAILY [facility] Last Admin: 08/05/18 10:58 Dose: 25 mg Metoclopramide HCl (Reglan) 5 mg IVP Q6H PRN PRN Reason: Nausea/Vomiting Ondansetron HCl (Zofran Inj) 4 mg IVP Q6 PRN PRN Reason: Nausea/Vomiting Last Admin: 08/04/18 11:07 Dose: 4 mg Pantoprazole Sodium (Protonix Inj) 40 mg IVP DAILY [facility] Last Admin: 08/05/18 10:59 Dose: 40 mg Polyethylene Glycol (Miralax) 17 gm PO DAILY [facility] Last Admin: 08/05/18 13:40 Dose: 17 gm Quetiapine Fumarate (Seroquel) 50 mg PO DAILY [facility] Last Admin: 08/05/18 10:58 Dose: 50 mg Quetiapine Fumarate (Seroquel) 50 mg PO HS [facility] Last Admin: 08/04/18 21:36 Dose: 50 mg Sertraline HCl (Zoloft) 50 mg PO DAILY [facility] - Labs Labs: 08/04/18 13:24 08/04/18 13:24 PT 10.2 SECONDS (9.7-12.2) 08/02/18 16:31 INR 0.9 08/02/18 16:31 APTT 23 SECONDS (21-34) 08/02/18 16:31 - Additional Findings Additional findings: - Constitutional Appears: Non-toxic, Chronically Ill, Somnolent (s/p pain medications) - Head Exam Head Exam: ATRAUMATIC, NORMAL INSPECTION, NORMOCEPHALIC - Eye Exam Eye Exam: keeping eyes closed, unable to assess - ENT Exam ENT Exam: Mucous Membranes Moist - Neck Exam Neck exam: Normal Exam - Respiratory Exam Respiratory Exam: Clear to Auscultation Bilateral, NORMAL BREATHING PATTERN. absent: Accessory Muscle Use, Chest Wall Tenderness, Decreased Breath Sounds, Rales, Rhonchi, Wheezes - Cardiovascular Exam Cardiovascular Exam: RRR, +S1, +S2. absent: Tachycardia/Bradycardia, JVD - GI/Abdominal Exam GI & Abdominal Exam: Soft, normal bowel sounds - Extremities Exam Extremities exam: Positive for: normal inspection, pedal pulses present. Negative for: calf tenderness, pedal edema - Neurological Exam somnolent s/p pain medications, no spontaneous movements appreciated, not following commands - Psychiatric Exam Psychiatric exam: sedate, difficult to assess - Skin Skin Exam: Dry, Intact, Normal Color, Warm Assessment and Plan - Assessment and Plan (Free Text) Assessment: This is a 28yo F with extensive PMH, including poorly controlled IDDM, diabetic gastroparesis, ESRD on HD (MWF), seizure activity, and Munchausens who presented to with complaint of intractable vomiting. Nephro was consulted for continuation of HD. 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 Nieves.
--- NOTE | 2018-08-05 17:11 | CP.PCM.PN ---
Subjective - Date & Time of Evaluation Date of Evaluation: 08/05/18 Time of Evaluation: 17:09 - Subjective Subjective: DR [facility]INID[facility] SERVICE - IM Pt s/e at bedside, no acute complaints overnight, agrees to slowly advancing diet and will refrain from sugary foods, pt agrees to follow psych recommendations as well. denies CP SOB FC NV at this time Objective - Vital Signs/Intake and Output Vital Signs (last 24 hours): Temp Pulse Resp BP Pulse Ox 98.2 F 78 20 100/67 96 08/05/18 16:00 08/05/18 16:00 08/05/18 16:00 08/05/18 16:00 08/05/18 16:00 Intake and Output: 08/05/18 08/05/18 06:59 18:59 Intake Total 100 200 Balance 100 200 - Medications Medications: Current Medications Carvedilol (Coreg) 6.25 mg PO BID [facility] Last Admin: 08/05/18 10:58 Dose: 6.25 mg Clonazepam (Klonopin) 0.5 mg PO BID [facility] Last Admin: 08/05/18 10:59 Dose: 0.5 mg Clonidine HCl (Catapres-Tts2 0.2 Mg/24 Hr) 1 patch TD QWK [facility] Last Admin: 08/03/18 11:21 Dose: 1 patch Dextrose (Dextrose 50% Inj) 0 ml IV STAT PRN; Protocol PRN Reason: Hypoglycemia Protocol Dextrose (Glutose 15) 0 gm PO ONCE PRN; Protocol PRN Reason: Hypoglycemia Protocol Docusate Sodium (Colace) 100 mg PO BID [facility] Glucagon (Glucagen Diagnostic Kit) 0 mg IM STAT PRN; Protocol PRN Reason: Hypoglycemia Protocol Last Admin: 08/01/18 21:48 Dose: 1 mg Hydromorphone HCl (Dilaudid) 0.5 mg IVP Q8H PRN PRN Reason: Pain, severe (8-10) Last Admin: 08/05/18 08:29 Dose: 0.5 mg Hydroxyzine HCl (Atarax) 25 mg IM Q6H PRN PRN Reason: Agitation Last Admin: 08/04/18 07:47 Dose: 25 mg Hydroxyzine HCl (Atarax) 25 mg PO Q4H PRN PRN Reason: Anxiety Dextrose (Dextrose 5% In Water 1000 Ml) 1,000 mls @ 0 mls/hr IV .Q0M PRN; Protocol PRN Reason: Hypoglycemia Protocol Sodium Chloride (Sodium Chloride 0.9%) 1,000 mls @ 60 mls/hr IV .[id number] [facility] Last Admin: 08/04/18 13:18 Dose: Not Given Insulin Aspart (Novolog) 0 unit SC ACHS [facility]; Protocol Last Admin: 08/05/18 12:30 Dose: 8 units Insulin Aspart (Novolog Mix 70/30 (70/30 Units/Ml)) 20 units SC DAILY [facility] Last Admin: 08/05/18 10:59 Dose: 20 units Insulin Aspart (Novolog Mix 70/30 (70/30 Units/Ml)) 10 units SC HS [facility] Last Admin: 08/04/18 21:36 Dose: 10 units Lorazepam (Ativan) 1 mg IM Q8H PRN PRN Reason: Anxiety Last Admin: 08/04/18 17:53 Dose: 1 mg Losartan Potassium (Cozaar) 25 mg PO DAILY [facility] Last Admin: 08/05/18 10:58 Dose: 25 mg Metoclopramide HCl (Reglan) 5 mg IVP Q6H PRN PRN Reason: Nausea/Vomiting Ondansetron HCl (Zofran Inj) 4 mg IVP Q6 PRN PRN Reason: Nausea/Vomiting Last Admin: 08/04/18 11:07 Dose: 4 mg Pantoprazole Sodium (Protonix Inj) 40 mg IVP DAILY [facility] Last Admin: 08/05/18 10:59 Dose: 40 mg Polyethylene Glycol (Miralax) 17 gm PO DAILY [facility] Last Admin: 08/05/18 13:40 Dose: 17 gm Quetiapine Fumarate (Seroquel) 50 mg PO DAILY [facility] Last Admin: 08/05/18 10:58 Dose: 50 mg Quetiapine Fumarate (Seroquel) 50 mg PO HS [facility] Last Admin: 08/04/18 21:36 Dose: 50 mg Sertraline HCl (Zoloft) 50 mg PO DAILY [facility] - Labs Labs: 08/04/18 13:24 08/04/18 13:24 PT 10.2 SECONDS (9.7-12.2) 08/02/18 16:31 INR 0.9 08/02/18 16:31 APTT 23 SECONDS (21-34) 08/02/18 16:31 - Additional Findings Additional findings: - Constitutional Appears: Other (Patient continues to refuse medical examination. 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 Personality disorder F/u psych recs - zoloft 25 mg Po daily for depression/anxiety, increased to 100 mg slowly - seroquel for mood swings, 50 mg daily, 50 mg HS -atarax & inderal for anxiety - klonopin 0.5 mg PO BID for anxiety while in hospital - psychoeducation - [facility] for severe personality disorder - see note for further details F/u neuro recs - pseudoseizures - no further recs - reconsult as necessary 1:1 sitter Intractable vomiting, acute Gastritis, Vomiting likely 2/2 diabetic gastroparesis Reglan 5 mg Q6 prn, zofran 4mg Q6H PRN Dilaudid 0.5 mg Q8H Protonix 40 mg IVP daily [facility] F/u GI recs - pt cannot tolerate CT/ nuclear gastric emptying - lipase wnl - possible dependency on pain medication IDDM, uncontrolled Diabetic Gastroparesis Hgb A1c 07/05/18: 63.1 BG fluctuating from 80s to 500s Novolog 70/30 20 units starting 08/05 AM Novolog 70/30 10 units starting 08/04 ISS aspart ACHS Hypoglycemia protocol Accuchecks ACHS NS @ 60 mls/hr ESRD on HD (MWF) Cr 5.8 OA Cr worsening, now 10s HD MWF Nephro consulted: Dr. Nieves - help appreciated AVF revision scheduled for 08/04 Hypertension home Clonidine 0.2 TD weekly, losartan 25 mg PO daily start coreg 6.25 mg PO BID PPx DVT: CI due to hematemesis, SCDs only GI: home Protonix 40mg IVP Diet: liquid diet
[2018-08-05] MEDS ORDERED: Dextrose 50% SYRINGE Inj (50 ml) ONE (19:36)
[2018-08-06] MEDS: POLYETHYLENE GLYCOL 3350 17 GM/Dose PACKET PO SCH (09:09)
[2018-08-06] MEDS: (Novolog) Insulin Aspart, Recombinant 100 u/ml 10 ml vial SC SCH ×4 (09:12→21:42)
[2018-08-06] MEDS: (Novolog Mix 70/30) Insulin Aspart/Insulin Aspar 100 units/ml SC SCH ×2 (09:12→21:43)
--- NOTE | 2018-08-06 09:28 | CP.PCM.PN ---
Subjective - Date & Time of Evaluation Date of Evaluation: 08/06/18 Time of Evaluation: 07:35 - Subjective Subjective: Nephro Progress Note for Dr. Ezequiel Nash DO, IM PGY-3 Patient seen and examined at bedside. 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 Resting comfortably in bed, denies any acute complaints at time of exam. Pending HD again today. Objective - Vital Signs/Intake and Output Vital Signs (last 24 hours): Temp Pulse Resp BP Pulse Ox 98.7 F 70 20 113/75 100 08/06/18 07:00 08/06/18 07:00 08/06/18 07:00 08/06/18 07:00 08/06/18 07:00 Intake and Output: 08/06/18 08/06/18 06:59 18:59 Intake Total 320 Balance 320 - Medications Medications: Current Medications Carvedilol (Coreg) 6.25 mg PO BID [facility] Last Admin: 08/06/18 09:08 Dose: 6.25 mg Clonazepam (Klonopin) 0.5 mg PO BID [facility] Last Admin: 08/06/18 09:07 Dose: 0.5 mg Clonidine HCl (Catapres-Tts2 0.2 Mg/24 Hr) 1 patch TD QWK [facility] Last Admin: 08/03/18 11:21 Dose: 1 patch Dextrose (Dextrose 50% Inj) 0 ml IV STAT PRN; Protocol PRN Reason: Hypoglycemia Protocol Last Admin: 08/05/18 19:33 Dose: 25 ml Dextrose (Glutose 15) 0 gm PO ONCE PRN; Protocol PRN Reason: Hypoglycemia Protocol Docusate Sodium (Colace) 100 mg PO BID [facility] Last Admin: 08/06/18 09:08 Dose: 100 mg Glucagon (Glucagen Diagnostic Kit) 0 mg IM STAT PRN; Protocol PRN Reason: Hypoglycemia Protocol Last Admin: 08/01/18 21:48 Dose: 1 mg Hydromorphone HCl (Dilaudid) 0.5 mg IVP Q8H PRN PRN Reason: Pain, severe (8-10) Last Admin: 08/05/18 08:29 Dose: 0.5 mg Hydroxyzine HCl (Atarax) 25 mg IM Q6H PRN PRN Reason: Agitation Last Admin: 08/04/18 07:47 Dose: 25 mg Hydroxyzine HCl (Atarax) 25 mg PO Q4H PRN PRN Reason: Anxiety Dextrose (Dextrose 5% In Water 1000 Ml) 1,000 mls @ 0 mls/hr IV .Q0M PRN; Pr otocol PRN Reason: Hypoglycemia Protocol Sodium Chloride (Sodium Chloride 0.9%) 1,000 mls @ 60 mls/hr IV .[id number] [facility] Last Admin: 08/04/18 13:18 Dose: Not Given Insulin Aspart (Novolog) 0 unit SC ACHS [facility]; Protocol Last Admin: 08/06/18 09:12 Dose: 8 units Insulin Aspart (Novolog Mix 70/30 (70/30 Units/Ml)) 20 units SC DAILY [facility] Last Admin: 08/06/18 09:12 Dose: 20 units Insulin Aspart (Novolog Mix 70/30 (70/30 Units/Ml)) 10 units SC HS [facility] Last Admin: 08/05/18 22:19 Dose: 10 units Lorazepam (Ativan) 1 mg IM Q8H PRN PRN Reason: Anxiety Last Admin: 08/04/18 17:53 Dose: 1 mg Losartan Potassium (Cozaar) 25 mg PO DAILY [facility] Last Admin: 08/06/18 09:08 Dose: 25 mg Metoclopramide HCl (Reglan) 5 mg IVP Q6H PRN PRN Reason: Nausea/Vomiting Ondansetron HCl (Zofran Inj) 4 mg IVP Q6 PRN PRN Reason: Nausea/Vomiting Last Admin: 08/04/18 11:07 Dose: 4 mg Pantoprazole Sodium (Protonix Inj) 40 mg IVP DAILY [facility] Last Admin: 08/06/18 09:10 Dose: Not Given Polyethylene Glycol (Miralax) 17 gm PO DAILY [facility] Last Admin: 08/06/18 09:09 Dose: 17 gm Quetiapine Fumarate (Seroquel) 50 mg PO DAILY [facility] Last Admin: 08/06/18 09:08 Dose: 50 mg Quetiapine Fumarate (Seroquel) 50 mg PO HS [facility] Last Admin: 08/05/18 22:31 Dose: 50 mg Sertraline HCl (Zoloft) 50 mg PO DAILY [facility] Last Admin: 08/06/18 09:19 Dose: 50 mg - Labs Labs: 08/04/18 13:24 04/17/19 13:24 PT 10.2 SECONDS (9.7-12.2) 08/02/18 16:31 INR 0.9 08/02/18 16:31 APTT 23 SECONDS (21-34) 08/02/18 16:31 - Additional Findings Additional findings: - Constitutional Appears: Non-toxic, Chronically Ill, Somnolent - Head Exam Head Exam: ATRAUMATIC, NORMAL INSPECTION, NORMOCEPHALIC - Eye Exam Eye Exam: Normal appearance, no scleral icterus or conjunctival injection - ENT Exam ENT Exam: Mucous Membranes Moist - Neck Exam Neck exam: Normal Exam - Respiratory Exam Respiratory Exam: Clear to Auscultation Bilateral, NORMAL BREATHING PATTERN. absent: Accessory Muscle Use, Chest Wall Tenderness, Decreased Breath Sounds, Rales, Rhonchi, Wheezes - Cardiovascular Exam Cardiovascular Exam: RRR, +S1, +S2. absent: Tachycardia/Bradycardia, JVD - GI/Abdominal Exam GI & Abdominal Exam: Soft, normal bowel sounds - Extremities Exam Extremities exam: Positive for: normal inspection, pedal pulses present. Negative for: calf tenderness, pedal edema - Neurological Exam somnolent but arousable, following simple commands - Psychiatric Exam Psychiatric exam: sedate, difficult to assess - Skin Skin Exam: Dry, Intact, Normal Color, Warm Assessment and Plan - Assessment and Plan (Free Text) Assessment: This is a 28yo F with extensive PMH, including poorly controlled IDDM, diabetic gastroparesis, ESRD on HD (MWF), seizure activity, and Munchausen's who presented to with complaint of intractable vomiting. Nephro was consulted for continuation of HD. 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 Nieves.
--- NOTE | 2018-08-06 11:39 | PCM.PYCHPN ---
Psychiatric Progress Note - Psychiatric Progress Note Patient seen today, length of contact: 18 min Patient Chief Complaint: "I am tired" Medication Change: No Medical Record Reviewed: Yes Mental Status Examination - Cognitive Function Orientation: Person, Place, Time Memory: Impaired Attention: Poor Concentration: Poor Association: WNL Fund of Knowledge: WNL - Mood Mood: Depressed, Anxious - Affect Affect: Blunted - Speech Speech: Soft - Formal Thought Process Formal Thought Process: No Impairment - Suicidal Ideation Suicidal Ideation: No - Homicidal Ideation Homicidal Ideation: No Goal/Treatment Plan - Goal/Treatment Plan Need for Continued Stay: Other (medical) Progress Toward Problem(s) and Goals/Treatment Plan: Zoloft for depression and anxiety - dose to be increased to 100 mg range slowly Seroquel for mood swings, irritability PRN Atarax and inderal for anxiety Klonopin for anxiety while she is here in the hospital. She is overusing ativan otherwise. Ativan will be d/c'ed Limit setting, support, psychoeducation SW can contact if she can be admitted to [facility] due to her severe personality disorder. Also, [facility] and [facility] may have specialized inpatient units for patients with complex presentations If cannot be admitted (due to hemodialysis for instance) she can be referred to [facility] program (intensive outpatient).
--- NOTE | 2018-08-06 14:15 | CP.PCM.PN ---
Subjective - Date & Time of Evaluation Date of Evaluation: 08/06/18 Time of Evaluation: 13:40 - Subjective Subjective: f/u abd pain. nausea. Mother and aid are present. Reports less abd pain and less nausea. + constipation. No Rb, melena, fever, chills, SOB, hematuria, hemoptysis, myalgia Objective - Vital Signs/Intake and Output Vital Signs (last 24 hours): Temp Pulse Resp BP Pulse Ox 98.7 F 70 20 113/75 100 08/06/18 07:00 08/06/18 07:00 08/06/18 07:00 08/06/18 07:00 08/06/18 07:00 Intake and Output: 08/06/18 08/06/18 06:59 18:59 Intake Total 320 Balance 320 - Medications Medications: Current Medications Carvedilol (Coreg) 6.25 mg PO BID [facility] Last Admin: 08/06/18 09:08 Dose: 6.25 mg Clonazepam (Klonopin) 0.5 mg PO BID [facility] Last Admin: 08/06/18 09:07 Dose: 0.5 mg Clonidine HCl (Catapres-Tts2 0.2 Mg/24 Hr) 1 patch TD QWK [facility] Last Admin: 08/03/18 11:21 Dose: 1 patch Dextrose (Dextrose 50% Inj) 0 ml IV STAT PRN; Protocol PRN Reason: Hypoglycemia Protocol Last Admin: 08/05/18 19:33 Dose: 25 ml Dextrose (Glutose 15) 0 gm PO ONCE PRN; Protocol PRN Reason: Hypoglycemia Protocol Docusate Sodium (Colace) 100 mg PO BID [facility] Last Admin: 08/06/18 09:08 Dose: 100 mg Glucagon (Glucagen Diagnostic Kit) 0 mg IM STAT PRN; Protocol PRN Reason: Hypoglycemia Protocol Last Admin: 08/01/18 21:48 Dose: 1 mg Hydromorphone HCl (Dilaudid) 0.5 mg IVP Q8H PRN PRN Reason: Pain, severe (8-10) Last Admin: 08/05/18 08:29 Dose: 0.5 mg Hydroxyzine HCl (Atarax) 25 mg IM Q6H PRN PRN Reason: Agitation Last Admin: 08/04/18 07:47 Dose: 25 mg Hydroxyzine HCl (Atarax) 25 mg PO Q4H PRN PRN Reason: Anxiety Dextrose (Dextrose 5% In Water 1000 Ml) 1,000 mls @ 0 mls/hr IV .Q0M PRN; Protocol PRN Reason: Hypoglycemia Protocol Sodium Chloride (Sodium Chloride 0.9%) 1,000 mls @ 60 mls/hr IV .[id number] [facility] Last Admin: 08/04/18 13:18 Dose: Not Given Insulin Aspart (Novolog) 0 unit SC ACHS [facility]; Protocol Last Admin: 08/06/18 14:03 Dose: Not Given Insulin Aspart (Novolog Mix 70/30 (70/30 Units/Ml)) 20 units SC DAILY [facility] Last Admin: 08/06/18 09:12 Dose: 20 units Insulin Aspart (Novolog Mix 70/30 (70/30 Units/Ml)) 10 units SC HS [facility] Last Admin: 08/05/18 22:19 Dose: 10 units Lorazepam (Ativan) 1 mg IM Q8H PRN PRN Reason: Anxiety Last Admin: 08/04/18 17:53 Dose: 1 mg Losartan Potassium (Cozaar) 25 mg PO DAILY [facility] Last Admin: 08/06/18 09:08 Dose: 25 mg Metoclopramide HCl (Reglan) 5 mg IVP Q6H PRN PRN Reason: Nausea/Vomiting Ondansetron HCl (Zofran Inj) 4 mg IVP Q6 PRN PRN Reason: Nausea/Vomiting Last Admin: 08/04/18 11:07 Dose: 4 mg Pantoprazole Sodium (Protonix Inj) 40 mg IVP DAILY [facility] Last Admin: 08/06/18 09:10 Dose: Not Given Polyethylene Glycol (Miralax) 17 gm PO DAILY [facility] Last Admin: 08/06/18 09:09 Dose: 17 gm Quetiapine Fumarate (Seroquel) 50 mg PO DAILY [facility] Last Admin: 08/06/18 09:08 Dose: 50 mg Quetiapine Fumarate (Seroquel) 50 mg PO HS [facility] Last Admin: 08/05/18 22:31 Dose: 50 mg Sertraline HCl (Zoloft) 50 mg PO DAILY [facility] Last Admin: 08/06/18 09:19 Dose: 50 mg - Labs Labs: 08/04/18 13:24 08/04/18 13:24 PT 10.2 SECONDS (9.7-12.2) 08/02/18 16:31 INR 0.9 08/02/18 16:31 APTT 23 SECONDS (21-34) 08/02/18 16:31 - Constitutional Appears: Non-toxic - Respiratory Exam Respiratory Exam: Clear to Ausculation Bilateral - Cardiovascular Exam Cardiovascular Exam: RRR - GI/Abdominal Exam GI & Abdominal Exam: Soft, Normal Bowel Sounds. absent: Guarding, Tenderness, Mass, Rebound - Neurological Exam Neurological Exam: Alert, Awake Assessment and Plan (1) Hyperglycemia Status: Acute (2) Pseudoseizure Status: Acute (3) ESRD (end stage renal disease) on dialysis Status: Chronic (4) Gastroparesis Assessment & Plan: I do not see nuclear empty study Status: Chronic (5) Abdominal pain Assessment & Plan: improving. Treat constipation. Abd pain and nausea are likely psych related. Status: Acute (6) Anxiety Status: Acute (7) Gastritis Status: Acute (8) Diabetes Status: Chronic (9) Diabetes mellitus Status: Chronic
[2018-08-06] MEDS ORDERED: HYDROmorphone 0.5 mg/0.5 ml ISec IVP PRN (14:48)
[2018-08-06 15:03] LABS: BASO # 0.1 K/uL (0.0-0.2); BASO % 1.6 % (0.0-2.0); EOS # 0.2 K/uL (0.0-0.7); HEMOGLOBIN 11.9 g/dL (11.0-16.0); LYMPH # 2.8 K/uL (1.0-4.3); LYMPH % 41.9 % (20.0-40.0); MEAN CELL VOLUME 81.1 fL (81.0-99.0); MEAN CORPUSCULAR HEMOGLOBIN 25.8 pg (27.0-31.0); MEAN CORPUSCULAR HGB CONC 31.8 g/dL (33.0-37.0); MEAN PLATELET VOLUME 9.8 fL (7.2-11.7); MONO # 0.4 K/uL (0.0-0.8); MONO % 5.9 % (0.0-10.0); NEUT # 3.2 K/uL (1.8-7.0); NEUT % 47.6 % (50.0-75.0); RBC 4.6 Mil/uL (3.80-5.20); RED CELL DISTRIBUTION WIDTH 17.7 % (11.5-14.5); WHITE BLOOD COUNT 6.7 K/uL (4.8-10.8)
--- NOTE | 2018-08-06 15:29 | CP.PCM.PN ---
Subjective - Date & Time of Evaluation Date of Evaluation: 08/06/18 Time of Evaluation: 16:27 - Subjective Subjective: DR [facility]IN[facility]ICE - IM Pt s/e at bedside getting HD today, denies CP SOB FC NV at this time. appears to be at ease, much less anxious and feels better, no longer asking for dilaudid. Objective - Vital Signs/Intake and Output Vital Signs (last 24 hours): Temp Pulse Resp BP Pulse Ox 98.7 F 70 20 113/75 100 08/06/18 07:00 08/06/18 07:00 08/06/18 07:00 08/06/18 07:00 08/06/18 07:00 Intake and Output: 08/06/18 08/06/18 06:59 18:59 Intake Total 320 Balance 320 - Medications Medications: Current Medications Carvedilol (Coreg) 6.25 mg PO BID [facility] Last Admin: 08/06/18 09:08 Dose: 6.25 mg Clonazepam (Klonopin) 0.5 mg PO BID [facility] Last Admin: 08/06/18 09:07 Dose: 0.5 mg Clonidine HCl (Catapres-Tts2 0.2 Mg/24 Hr) 1 patch TD QWK [facility] Last Admin: 08/03/18 11:21 Dose: 1 patch Dextrose (Dextrose 50% Inj) 0 ml IV STAT PRN; Protocol PRN Reason: Hypoglycemia Protocol Last Admin: 08/05/18 19:33 Dose: 25 ml Dextrose (Glutose 15) 0 gm PO ONCE PRN; Protocol PRN Reason: Hypoglycemia Protocol Docusate Sodium (Colace) 100 mg PO BID [facility] Last Admin: 08/06/18 09:08 Dose: 100 mg Glucagon (Glucagen Diagnostic Kit) 0 mg IM STAT PRN; Protocol PRN Reason: Hypoglycemia Protocol Last Admin: 08/01/18 21:48 Dose: 1 mg Hydromorphone HCl (Dilaudid) 0.5 mg IVP Q10H PRN PRN Reason: Pain, severe (8-10) Hydroxyzine HCl (Atarax) 25 mg IM Q6H PRN PRN Reason: Agitation Last Admin: 08/04/18 07:47 Dose: 25 mg Hydroxyzine HCl (Atarax) 25 mg PO Q4H PRN PRN Reason: Anxiety Sodium Chloride (Sodium Chloride 0.9%) 1,000 mls @ 60 mls/hr IV .[id number] [facility] Last Admin: 08/04/18 13:18 Dose: Not Given Insulin Aspart (Novolog) 0 unit SC ACHS [facility]; Protocol Last Admin: 08/06/18 14:03 Dose: Not Given Insulin Aspart (Novolog Mix 70/30 (70/30 Units/Ml)) 20 units SC DAILY [facility] Last Admin: 08/06/18 09:12 Dose: 20 units Insulin Aspart (Novolog Mix 70/30 (70/30 Units/Ml)) 10 units SC HS [facility] Last Admin: 08/05/18 22:19 Dose: 10 units Lorazepam (Ativan) 1 mg IM Q8H PRN PRN Reason: Anxiety Last Admin: 08/04/18 17:53 Dose: 1 mg Losartan Potassium (Cozaar) 25 mg PO DAILY [facility] Last Admin: 08/06/18 09:08 Dose: 25 mg Metoclopramide HCl (Reglan) 5 mg IVP Q6H PRN PRN Reason: Nausea/Vomiting Ondansetron HCl (Zofran Inj) 4 mg IVP Q6 PRN PRN Reason: Nausea/Vomiting Last Admin: 08/04/18 11:07 Dose: 4 mg Pantoprazole Sodium (Protonix Inj) 40 mg IVP DAILY [facility] Last Admin: 08/06/18 09:10 Dose: Not Given Polyethylene Glycol (Miralax) 17 gm PO DAILY [facility] Last Admin: 08/06/18 09:09 Dose: 17 gm Quetiapine Fumarate (Seroquel) 50 mg PO DAILY [facility] Last Admin: 08/06/18 09:08 Dose: 50 mg Quetiapine Fumarate (Seroquel) 50 mg PO HS [facility] Last Admin: 08/05/18 22:31 Dose: 50 mg Sertraline HCl (Zoloft) 50 mg PO DAILY [facility] Last Admin: 08/06/18 09:19 Dose: 50 mg - Labs Labs: 08/06/18 14:59 08/04/18 13:24 PT 10.2 SECONDS (9.7-12.2) 08/02/18 16:31 INR 0.9 08/02/18 16:31 APTT 23 SECONDS (21-34) 08/02/18 16:31 - Additional Findings Additional findings: - Constitutional Appears: Non-toxic Additional comments: actively spitting, nurses note patient is sticking finger down throat when mom was in bathroom - Head Exam Head Exam: ATRAUMATIC, NORMAL INSPECTION, NORMOCEPHALIC - Eye Exam Eye Exam: EOMI, Normal appearance, PERRL Pupil Exam: NORMAL ACCOMODATION - ENT Exam ENT Exam: Mucous Membranes Moist, Normal Exam - Neck Exam Neck exam: Positive for: Normal Inspection Additional comments: R chest dialysis catheter, bandaged c/d/i. no surrounding erythema - Respiratory Exam Respiratory Exam: Clear to Auscultation Bilateral, NORMAL BREATHING PATTERN. absent: Rales, Rhonchi, Wheezes - Cardiovascular Exam Cardiovascular Exam: Tachycardia, REGULAR RHYTHM, +S1, +S2 - GI/Abdominal Exam GI & Abdominal Exam: Hypoactive Bowel Sounds, Soft, Tenderness. absent: Di stended Additional comments: minimal TTP when patient is unaware - Extremities Exam Extremities exam: Positive for: normal inspection. Negative for: calf tenderness, pedal edema Additional comments: L UE AVF, palpable thrill, audible bruit, no erythema - Back Exam Back exam: NORMAL INSPECTION. absent: CVA tenderness (L), CVA tenderness (R) - Neurological Exam Neurological exam: Alert, Oriented x3, Reflexes Normal - Psychiatric Exam Psychiatric exam: Depressed, Flat Affect - Skin Skin Exam: Dry, Intact, Normal Color, Warm Additional comments: multiple hyperpigmented scars on lower face/neck tattoos old, well healed Assessment and Plan - Assessment and Plan (Free Text) Assessment: 28yo F PMH uncontrolled DM with gastroparesis, ESRD on HD, Munchausen's, HTN admitted for intractable vomiting, currently having AVF function issues, revision cancelled due to elevated blood sugars, pt persistently having pseudoseizures, attempting to gain more pain medication 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 Personality disorder F/u psych recs - zoloft 25 mg Po daily for depression/anxiety, increased to 100 mg slowly - seroquel for mood swings, 50 mg daily, 50 mg HS -atarax & inderal for anxiety - klonopin 0.5 mg PO BID for anxiety while in hospital - psychoeducation - [facility] for severe personality disorder - see note for further details F/u neuro recs - pseudoseizures - no further recs - reconsult as necessary 1:1 sitter Intractable vomiting, acute Gastritis, Vomiting likely 2/2 diabetic gastroparesis Reglan 5 mg Q6 prn, zofran 4mg Q6H PRN Dilaudid 0.5 mg Q8H- unable to give at this time, pending MID line Protonix 40 mg IVP daily [facility] F/u GI recs - pt cannot tolerate CT/ nuclear gastric emptying - lipase wnl - possible dependency on pain medication IDDM, uncontrolled Diabetic Gastroparesis Hgb A1c 07/05/18: 63.1 BG fluctuating from 80s to 500s Novolog 70/30 20 units starting 08/05 AM Novolog 70/30 10 units starting 08/04 ISS aspart ACHS Hypoglycemia protocol Accuchecks ACHS NS @ 60 mls/hr ESRD on HD ([facility]) Cr 5.8 OA Cr worsening, now 10s HD MWF Nephro consulted: Dr. Nieves - help appreciated AVF revision scheduled for 08/04 Hypertension home Clonidine 0.2 TD weekly, losartan 25 mg PO daily start coreg 6.25 mg PO BID PPx DVT: CI due to hematemesis, SCDs only GI: home Protonix 40mg IVP Diet: liquid diet DISPO: Pt pending MID Line on R arm, c/w psych therapy, f/u surg recs for AVF
[2018-08-06 15:36] LABS: ALB/GLOB RATIO 1.3 (1.0-2.1); ALBUMIN 3.5 g/dL (3.5-5.0); CALCIUM 8.4 mg/dl (8.6-10.4)
--- NOTE | 2018-08-06 15:40 | CP.PCM.PCO ---
Physician Communication Note - Physician Communication Note Physician Communication Note: Ok from Nephro standpoint for midline in non- fistula extremity
[2018-08-06] MEDS: Sodium Chloride 0.9% 1,000 ML IV SCH (18:50)
[2018-08-06] MEDS ORDERED: Potassium Chloride 20 mEq/15 ml LIQ UD PO ONE (22:17)
--- NOTE | 2018-08-07 00:22 | CP.PCM.PN ---
Subjective - Date & Time of Evaluation Date of Evaluation: 08/07/18 Time of Evaluation: 05:00 - Subjective Subjective: Medicine progress note for Dr. King. Patient seen and examined at bedside. Patient sitting in bed comfortably, stating she feels fine and has no complaints. Patient had advancement of diet yesterday and reports no nausea, no vomiting. Patient is post dialysis yesterday. Bedtime sugars were > 500; however, only sliding scale coverage & night time insulin was given (since pt is on 70/30 mix) and recheck sugars showed sugars at 179. Patient no longer asking for ativan/dilaudid Objective - Vital Signs/Intake and Output Vital Signs (last 24 hours): Temp Pulse Resp BP Pulse Ox 98.6 F 77 20 126/85 99 08/06/18 18:19 08/06/18 18:19 08/06/18 18:19 08/06/18 18:19 08/06/18 18:19 Intake and Output: 08/06/18 08/07/18 18:59 06:59 Intake Total 350 Balance 350 - Medications Medications: Current Medications Carvedilol (Coreg) 6.25 mg PO BID [facility] Last Admin: 08/06/18 18:47 Dose: 6.25 mg Clonazepam (Klonopin) 0.5 mg PO BID [facility] Last Admin: 08/06/18 18:47 Dose: 0.5 mg Clonidine HCl (Catapres-Tts2 0.2 Mg/24 Hr) 1 patch TD QWK [facility] Last Admin: 08/03/18 11:21 Dose: 1 patch Dextrose (Dextrose 50% Inj) 0 ml IV STAT PRN; Protocol PRN Reason: Hypoglycemia Protocol Last Admin: 08/05/18 19:33 Dose: 25 ml Dextrose (Glutose 15) 0 gm PO ONCE PRN; Protocol PRN Reason: Hypoglycemia Protocol Docusate Sodium (Colace) 100 mg PO BID [facility] Last Admin: 08/06/18 18:47 Dose: 100 mg Glucagon (Glucagen Diagnostic Kit) 0 mg IM STAT PRN; Protocol PRN Reason: Hypoglycemia Protocol Last Admin: 08/01/18 21:48 Dose: 1 mg Hydromorphone HCl (Dilaudid) 0.5 mg IVP Q10H PRN PRN Reason: Pain, severe (8-10) Hydroxyzine HCl (Atarax) 25 mg IM Q6H PRN PRN Reason: Agitation Last Admin: 08/04/18 07:47 Dose: 25 mg Hydroxyzine HCl (Atarax) 25 mg PO Q4H PRN PRN Reason: Anxiety Sodium Chloride (Sodium Chloride 0.9%) 1,000 mls @ 60 mls/hr IV .[id number] [facility] Last Admin: 08/06/18 18:50 Dose: Not Given Insulin Aspart (Novolog) 0 unit SC ACHS [facility]; Protocol Last Admin: 08/06/18 21:42 Dose: 4 units Insulin Aspart (Novolog Mix 70/30 (70/30 Units/Ml)) 20 units SC DAILY [facility] Last Admin: 08/06/18 09:12 Dose: 20 units Insulin Aspart (Novolog Mix 70/30 (70/30 Units/Ml)) 10 units SC [facility] Last Admin: 08/06/18 21:43 Dose: 10 units Lorazepam (Ativan) 1 mg IM Q8H PRN PRN Reason: Anxiety Last Admin: 08/04/18 17:53 Dose: 1 mg Losartan Potassium (Cozaar) 25 mg PO DAILY [facility] Last Admin: 08/06/18 09:08 Dose: 25 mg Metoclopramide HCl (Reglan) 5 mg IVP Q6H PRN PRN Reason: Nausea/Vomiting Ondansetron HCl (Zofran Inj) 4 mg IVP Q6 PRN PRN Reason: Nausea/Vomiting Last Admin: 08/04/18 11:07 Dose: 4 mg Pantoprazole Sodium (Protonix Inj) 40 mg IVP DAILY [facility] Last Admin: 08/06/18 09:10 Dose: Not Given Polyethylene Glycol (Miralax) 17 gm PO DAILY [facility] Last Admin: 08/06/18 09:09 Dose: 17 gm Quetiapine Fumarate (Seroquel) 50 mg PO DAILY [facility] Last Admin: 08/06/18 09:08 Dose: 50 mg Quetiapine Fumarate (Seroquel) 50 mg PO HS [facility] Last Admin: 08/06/18 21:43 Dose: 50 mg Sertraline HCl (Zoloft) 50 mg PO DAILY [facility] Last Admin: 08/06/18 09:19 Dose: 50 mg - Labs Labs: 08/06/18 14:59 08/06/18 14:59 PT 10.2 SECONDS (9.7-12.2) 08/02/18 16:31 INR 0.9 08/02/18 16:31 APTT 23 SECONDS (21-34) 08/02/18 16:31 - Constitutional Appears: Non-toxic, No Acute Distress - Head Exam Head Exam: NORMAL INSPECTION - Eye Exam Eye Exam: Normal appearance - ENT Exam ENT Exam: Mucous Membranes Moist - Respiratory Exam Respiratory Exam: Clear to Ausculation Bilateral, NORMAL BREATHING PATTERN. absent: Rales, Rhonchi, Wheezes - Cardiovascular Exam Cardiovascular Exam: +S1, +S2. absent: Murmur Additional comments: R chest dialysis catheter, bandaged c/d/i. no surrounding erythema - GI/Abdominal Exam GI & Abdominal Exam: Soft, Normal Bowel Sounds. absent: Firm, Guarding, Rigid - Extremities Exam Extremities Exam: Full ROM, Normal Inspection. absent: Calf Tenderness, Pedal Edema Additional comments: fistula left arm, palpable thrill - Back Exam Back Exam: NORMAL INSPECTION. absent: CVA tenderness (L), CVA tenderness (R) - Neurological Exam Neurological Exam: Alert, Awake, Oriented x3 - Psychiatric Exam Psychiatric exam: Flat Affect, Normal Mood - Skin Skin Exam: Dry, Intact, Normal Color, Warm Additional comments: multiple hyperpigmented scars on lower face/neck tattoos old, well healed Assessment and Plan - Assessment and Plan (Free Text) Assessment: 28yo F PMH uncontrolled DM with gastroparesis, ESRD on HD, Munchausen's, HTN admitted for intractable vomiting, currently having AVF function issues, revision cancelled due to elevated blood sugars, pt initially having pseudoseizures, attempting to gain more pain medication - now patient more calm, no longer asking for pain medication. 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 Personality disorder F/u psych recs - zoloft 25 mg Po daily for depression/anxiety, increased to 100 mg slowly - seroquel for mood swings, 50 mg daily, 50 mg HS -atarax & inderal for anxiety - klonopin 0.5 mg PO BID for anxiety while in hospital - psychoeducation - [facility] for severe personality disorder - see note for further details F/u neuro recs - pseudoseizures - no further recs - reconsult as necessary 1:1 sitter Last ativian required 4/17 Last dilaudid required 08/05 Intractable vomiting, acute Gastritis, Vomiting diabetic gastroparesis due to elevated blood sugars vs psych Reglan 5 mg Q6 prn, zofran 4mg Q6H PRN Dilaudid 0.5 mg Q8H- unable to give at this time, pending MID line Protonix 40 mg IVP daily Carb consistent diet F/u GI recs - pt cannot tolerate CT/ nuclear gastric emptying - lipase wnl - possible dependency on pain medication IDDM, uncontrolled Diabetic Gastroparesis Hgb A1c 07/05/18: 63.1 BG fluctuating from 80s to 500s Novolog 70/30 20 units starting 08/05 AM Novolog 70/30 10 units starting 08/04 ISS aspart ACHS Hypoglycemia protocol Accuchecks ACHS Blood sugars more controlled, however still couple episodes of hypo/hyperglycemia Will make adjustments post full diet NS @ 60 mls/hr per nephro ESRD on HD (MWF) Cr 5.8 OA Cr worsening, now 10s HD MWF Nephro consulted: Dr. Nieves - help appreciated F/u surgery recs for AVF revision - may need to re-consult surgery in AM Hypertension home Clonidine 0.2 TD weekly, losartan 25 mg PO daily start coreg 6.25 mg PO BID PPx DVT: CI due to hematemesis, SCDs only GI: home Protonix 40mg IVP Diet: liquid diet DISPO: Pt pending MID Line on R arm, c/w psych therapy, f/u surg recs for AVF Will d/w Dr. King.
[2018-08-07] MEDS: (Novolog) Insulin Aspart, Recombinant 100 u/ml 10 ml vial SC SCH ×4 (08:19→21:54)
[2018-08-07] MEDS: Sodium Chloride 0.9% 1,000 ML IV SCH (08:20)
[2018-08-07 08:31] VITALS: RESP 20
[2018-08-07] MEDS: (Novolog Mix 70/30) Insulin Aspart/Insulin Aspar 100 units/ml SC SCH ×2 (10:27→21:56)
[2018-08-07] MEDS: POLYETHYLENE GLYCOL 3350 17 GM/Dose PACKET PO SCH (10:28)
--- NOTE | 2018-08-07 12:13 | CP.PCM.PN ---
Subjective - Date & Time of Evaluation Date of Evaluation: 08/07/18 Time of Evaluation: 12:10 - Subjective Subjective: Patient was nauseated yesterday but feels better today. She denies having vomiting, abdominal pain, diarrhea, constipation and rectal bleeding. Objective - Vital Signs/Intake and Output Vital Signs (last 24 hours): Temp Pulse Resp BP Pulse Ox 97.9 F 76 20 124/85 99 08/07/18 08:29 08/07/18 08:29 08/07/18 08:29 08/07/18 08:29 08/07/18 08:29 Intake and Output: 08/07/18 08/07/18 06:59 18:59 Intake Total 470 Balance 470 - Medications Medications: Current Medications Carvedilol (Coreg) 6.25 mg PO BID [facility] Last Admin: 08/07/18 10:26 Dose: 6.25 mg Clonazepam (Klonopin) 0.5 mg PO BID [facility] Last Admin: 08/07/18 10:26 Dose: 0.5 mg Clonidine HCl (Catapres-Tts2 0.2 Mg/24 Hr) 1 patch TD QWK [facility] Last Admin: 08/03/18 11:21 Dose: 1 patch Dextrose (Dextrose 50% Inj) 0 ml IV STAT PRN; Protocol PRN Reason: Hypoglycemia Protocol Last Admin: 08/05/18 19:33 Dose: 25 ml Dextrose (Glutose 15) 0 gm PO ONCE PRN; Protocol PRN Reason: Hypoglycemia Protocol Docusate Sodium (Colace) 100 mg PO BID [facility] Last Admin: 08/07/18 10:26 Dose: 100 mg Glucagon (Glucagen Diagnostic Kit) 0 mg IM STAT PRN; Protocol PRN Reason: Hypoglycemia Protocol Last Admin: 08/01/18 21:48 Dose: 1 mg Hydromorphone HCl (Dilaudid) 0.5 mg IVP Q10H PRN PRN Reason: Pain, severe (8-10) Hydroxyzine HCl (Atarax) 25 mg IM Q6H PRN PRN Reason: Agitation Last Admin: 08/04/18 07:47 Dose: 25 mg Hydroxyzine HCl (Atarax) 25 mg PO Q4H PRN PRN Reason: Anxiety Insulin Aspart (Novolog) 0 unit SC [facility]; Protocol Last Admin: 08/07/18 08:19 Dose: Not Given Insulin Aspart (Novolog Mix 70/30 (70/30 Units/Ml)) 20 units SC DAILY [facility] Last Admin: 08/07/18 10:27 Dose: 20 units Insulin Aspart (Novolog Mix 70/30 (70/30 Units/Ml)) 10 units SC [facility] Last Admin: 08/06/18 21:43 Dose: 10 units Lorazepam (Ativan) 1 mg IM Q8H PRN PRN Reason: Anxiety Last Admin: 08/04/18 17:53 Dose: 1 mg Losartan Potassium (Cozaar) 25 mg PO DAILY [facility] Last Admin: 08/07/18 10:26 Dose: 25 mg Metoclopramide HCl (Reglan) 5 mg IVP Q6H PRN PRN Reason: Nausea/Vomiting Ondansetron HCl (Zofran Inj) 4 mg IVP Q6 PRN PRN Reason: Nausea/Vomiting Last Admin: 08/04/18 11:07 Dose: 4 mg Pantoprazole Sodium (Protonix Inj) 40 mg IVP DAILY [facility] Last Admin: 08/07/18 10:28 Dose: Not Given Polyethylene Glycol (Miralax) 17 gm PO DAILY [facility] Last Admin: 08/07/18 10:28 Dose: 17 gm Quetiapine Fumarate (Seroquel) 50 mg PO DAILY [facility] Last Admin: 08/07/18 10:26 Dose: 50 mg Quetiapine Fumarate (Seroquel) 50 mg PO [facility] Last Admin: 08/06/18 21:43 Dose: 50 mg Sertraline HCl (Zoloft) 50 mg PO DAILY [facility] Last Admin: 08/07/18 10:26 Dose: 50 mg - Labs Labs: 08/06/18 14:59 08/06/18 14:59 PT 10.2 SECONDS (9.7-12.2) 08/02/18 16:31 INR 0.9 08/02/18 16:31 APTT 23 SECONDS (21-34) 08/02/18 16:31 - Constitutional Appears: No Acute Distress - Head Exam Head Exam: ATRAUMATIC, NORMOCEPHALIC - Eye Exam Eye Exam: EOMI, PERRL - Neck Exam Neck Exam: absent: Lymphadenopathy, Thyromegaly - Respiratory Exam Respiratory Exam: NORMAL BREATHING PATTERN. absent: Rales, Rhonchi, Wheezes - Cardiovascular Exam Cardiovascular Exam: REGULAR RHYTHM, +S1, +S2. absent: Rubs, Murmur - GI/Abdominal Exam GI & Abdominal Exam: Soft, Normal Bowel Sounds. absent: Tenderness, Mass, Organomegaly - Rectal Exam Rectal Exam: Deferred - Extremities Exam Extremities Exam: absent: Calf Tenderness, Pedal Edema Assessment and Plan (1) Abdominal pain Assessment & Plan: Abdominal pain has improved. Patient complained only of nausea recently. Continue current regimen. Status: Acute
--- NOTE | 2018-08-07 16:42 | CP.PCM.PN ---
Objective - Vital Signs/Intake and Output Vital Signs (last 24 hours): Temp Pulse Resp BP Pulse Ox 98.0 F 85 20 95/64 L 96 08/07/18 15:30 08/07/18 15:30 08/07/18 15:30 08/07/18 15:30 08/07/18 15:30 Intake and Output: 08/07/18 08/07/18 06:59 18:59 Intake Total 470 Balance 470 - Medications Medications: Current Medications Carvedilol (Coreg) 6.25 mg PO BID [facility] Last Admin: 08/07/18 10:26 Dose: 6.25 mg Clonazepam (Klonopin) 0.25 mg PO BID [facility] Clonidine HCl (Catapres-Tts2 0.2 Mg/24 Hr) 1 patch TD QWK [facility] Last Admin: 08/03/18 11:21 Dose: 1 patch Dextrose (Dextrose 50% Inj) 0 ml IV STAT PRN; Protocol PRN Reason: Hypoglycemia Protocol Last Admin: 08/05/18 19:33 Dose: 25 ml Dextrose (Glutose 15) 0 gm PO ONCE PRN; Protocol PRN Reason: Hypoglycemia Protocol Docusate Sodium (Colace) 100 mg PO BID [facility] Last Admin: 08/07/18 10:26 Dose: 100 mg Glucagon (Glucagen Diagnostic Kit) 0 mg IM STAT PRN; Protocol PRN Reason: Hypoglycemia Protocol Last Admin: 08/01/18 21:48 Dose: 1 mg Hydroxyzine HCl (Atarax) 25 mg PO Q4H PRN PRN Reason: Anxiety Insulin Aspart (Novolog) 0 unit SC ACHS [facility]; Protocol Last Admin: 08/07/18 12:28 Dose: 3 units Insulin Aspart (Novolog Mix 70/30 (70/30 Units/Ml)) 20 units SC DAILY [facility] Last Admin: 08/07/18 10:27 Dose: 20 units Insulin Aspart (Novolog Mix 70/30 (70/30 Units/Ml)) 10 units SC HS [facility] Last Admin: 08/06/18 21:43 Dose: 10 units Losartan Potassium (Cozaar) 25 mg PO DAILY [facility] Last Admin: 08/07/18 10:26 Dose: 25 mg Metoclopramide HCl (Reglan) 5 mg IVP Q6H PRN PRN Reason: Nausea/Vomiting Ondansetron HCl (Zofran Inj) 4 mg IVP Q6 PRN PRN Reason: Nausea/Vomiting Last Admin: 08/04/18 11:07 Dose: 4 mg Pantoprazole Sodium (Protonix Inj) 40 mg IVP DAILY [facility] Last Admin: 08/07/18 10:28 Dose: Not Given Polyethylene Glycol (Miralax) 17 gm PO DAILY [facility] Last Admin: 08/07/18 10:28 Dose: 17 gm Quetiapine Fumarate (Seroquel) 50 mg PO DAILY [facility] Last Admin: 08/07/18 10:26 Dose: 50 mg Quetiapine Fumarate (Seroquel) 50 mg PO HS [facility] Last Admin: 08/06/18 21:43 Dose: 50 mg Sertraline HCl (Zoloft) 50 mg PO DAILY [facility] Last Admin: 08/07/18 10:26 Dose: 50 mg - Labs Labs: 08/06/18 14:59 08/06/18 14:59 PT 10.2 SECONDS (9.7-12.2) 08/02/18 16:31 INR 0.9 08/02/18 16:31 APTT 23 SECONDS (21-34) 08/02/18 16:31 Assessment and Plan (1) ESRD (end stage renal disease) on dialysis Status: Chronic (2) Hypertensive CKD, ESRD on dialysis Status: Acute
[2018-08-07] MEDS: clonazePAM 0.25 MG TAB PO SCH (17:56)
[2018-08-08 08:05] VITALS: BP 117/80; PULSE 76; TEMP 98.3; O2SAT 95
[2018-08-08] MEDS: clonazePAM 0.25 MG TAB PO SCH (09:19)
[2018-08-08] MEDS: POLYETHYLENE GLYCOL 3350 17 GM/Dose PACKET PO SCH (09:20)
[2018-08-08] MEDS: (Novolog Mix 70/30) Insulin Aspart/Insulin Aspar 100 units/ml SC SCH (09:20)
[2018-08-08] MEDS: (Novolog) Insulin Aspart, Recombinant 100 u/ml 10 ml vial SC SCH ×2 (09:21→12:00)
--- NOTE | 2018-08-08 10:44 | CP.PCM.DIS ---
Provider - Provider Date of Admission: 07/27/18 19:05 Attending physician: Reza King Jr, MD Consults: 07/27/18 21:35 Nephrology Consult Routine Comment: Consulting Provider: Migue Nieves Consulting Physician: Migue Nieves Reason for Consult: ESRD, HD MWF 07/30/18 16:15 Vascular Surgery Routine Comment: Consulting Provider: Tawanda Hines Jr. Physician Instructions: Reason For Exam: AVF revision 08/02/18 11:29 Gastroenterology Consult Routine Comment: Consulting Provider: Porfirio Murphy Consulting Physician: Porfirio Murphy Reason for Consult: intractiable vomiting, hx of gastroparesis 08/03/18 12:57 Psychiatry Consult Routine Comment: Consulting Provider: Jomar Mckeon Consulting Physician: Jomar Mckeon Reason for Consult: hx of munchausen disease 08/03/18 14:01 Neurology Consult Routine Comment: Consulting Provider: Maurice Cruz Consulting Physician: Maurice Cruz Reason for Consult: seizures, intractable vomitting Time Spent in preparation of Discharge (in minutes): 45 Hospital Course - Lab Results Lab Results: Micro Results 07/27/18 17:15 Blood Blood Culture - Final NO GROWTH AFTER 5 DAYS 07/27/18 17:45 Blood Blood Culture - Final NO GROWTH AFTER 5 DAYS 07/27/18 17:45 Blood Gram Stain - Final TEST NOT PERFORMED Most Recent Lab Values WBC 6.7 K/uL (4.8-10.8) 08/06/18 14:59 RBC 4.60 Mil/uL (3.80-5.20) 08/06/18 14:59 Hgb 11.9 g/dL (11.0-16.0) 08/06/18 14:59 Hct 37.3 % (34.0-47.0) 08/06/18 14:59 MCV 81.1 fL (81.0-99.0) 08/06/18 14:59 MCH 25.8 pg (27.0-31.0) L 08/06/18 14:59 MCHC 31.8 g/dL (33.0-37.0) L 08/06/18 14:59 RDW 17.7 % (11.5-14.5) H 08/06/18 14:59 Plt Count 196 K/uL (130-400) 08/06/18 14:59 MPV 9.8 fL (7.2-11.7) 08/06/18 14:59 Neut % (Auto) 47.6 % (50.0-75.0) L 08/06/18 14:59 Lymph % (Auto) 41.9 % (20.0-40.0) H 08/06/18 14:59 [place] % (Auto) 5.9 % (0.0-10.0) 08/06/18 14:59 Eos % (Auto) 3.0 % (0.0-4.0) 08/06/18 14:59 Baso % (Auto) 1.6 % (0.0-2.0) 08/06/18 14:59 Neut # (Auto) 3.2 K/uL (1.8-7.0) 08/06/18 14:59 Lymph # (Auto) 2.8 K/uL (1.0-4.3) 08/06/18 14:59 [place] # (Auto) 0.4 K/uL (0.0-0.8) 08/06/18 14:59 Eos # (Auto) 0.2 K/uL (0.0-0.7) 08/06/18 14:59 Baso # (Auto) 0.1 K/uL (0.0-0.2) 08/06/18 14:59 PT 10.2 SECONDS (9.7-12.2) 08/02/18 16:31 INR 0.9 08/02/18 16:31 APTT 23 SECONDS (21-34) 08/02/18 16:31 pO2 53 mm/Hg (30-55) 07/27/18 17:40 VBG pH 7.32 (7.32-7.43) 07/27/18 17:40 VBG pCO2 30 mmHg (40-60) L 07/27/18 17:40 VBG HCO3 17.3 mmol/L 07/27/18 17:40 VBG Total CO2 16.4 mmol/L (22-28) L 07/27/18 17:40 VBG O2 Sat (Calc) 89.1 % (40-65) H 07/27/18 17:40 VBG Base Excess -9.3 mmol/L (0.0-2.0) L 07/27/18 17:40 VBG Potassium 4.7 mmol/L (3.6-5.2) 07/27/18 17:40 Sodium 137.0 mmol/l (132-148) 07/27/18 17:40 Chloride 104.0 mmol/L (98-107) 07/27/18 17:40 Glucose 504 mg/dl (65-105) H* D 07/27/18 17:40 Lactate 3.1 mmol/L (0.7-2.1) H 07/27/18 17:40 FiO2 21.0 % 07/27/18 17:40 Crit Value Called To Kolton gonzalez 07/27/18 17:40 Crit Value Called By Parminder bhandari 07/27/18 17:40 Crit Value Read Back Y 07/27/18 17:40 Blood Gas Notified Time 1745 07/27/18 17:40 Sodium 135 mmol/L (132-148) 08/06/18 14:59 Potassium 3.2 mmol/L (3.6-5.2) L 08/06/18 14:59 Chloride 95 mmol/L (98-107) L 08/06/18 14:59 Carbon Dioxide 27 mmol/L (22-30) 08/06/18 14:59 Anion Gap 16 (10-20) 08/06/18 14:59 BUN 49 mg/dL (7-17) H 08/06/18 14:59 Creatinine 8.3 mg/dL (0.7-1.2) H* D 08/06/18 14:59 Est GFR ( Amer) 7 08/06/18 14:59 Est GFR (Non-Af Amer) 6 08/06/18 14:59 POC Glucose (mg/dL) 215 mg/dL (65-110) H 08/08/18 06:55 Random Glucose 63 mg/dL (65-105) L D 08/06/18 14:59 Calcium 8.4 mg/dl (8.6-10.4) L 08/06/18 14:59 Phosphorus 6.1 mg/dL (2.5-4.5) H 08/06/18 14:59 Magnesium 2.7 mg/dL (1.6-2.3) H 08/06/18 14:59 Total Bilirubin 0.2 mg/dL (0.2-1.3) 08/06/18 14:59 AST 37 U/L (14-36) H 08/06/18 14:59 ALT 19 U/L (9-52) 08/06/18 14:59 Alkaline Phosphatase 90 U/L (38-126) 08/06/18 14:59 Total Protein 6.2 g/dL (6.3-8.3) L 08/06/18 14:59 Albumin 3.5 g/dL (3.5-5.0) 08/06/18 14:59 Globulin 2.7 gm/dL (2.2-3.9) 08/06/18 14:59 Albumin/Globulin Ratio 1.3 (1.0-2.1) 08/06/18 14:59 Lipase 49 U/L (23-300) 08/04/18 13:24 Beta HCG, Quant < 2.39 mIU/ML 08/04/18 13:24 Venous Blood Potassium 4.7 mmol/L (3.6-5.2) 07/27/18 17:40 Urine Color Yellow (YELLOW) 07/27/18 19:01 Urine Clarity Clear (Clear) 07/27/18 19:01 Urine pH 7.0 (5.0-8.0) 07/27/18 19:01 Ur Specific [place] 1.014 (1.003-1.030) 07/27/18 19:01 Urine Protein 2+ mg/dL (NEGATIVE) H 07/27/18 19:01 Urine Glucose (UA) 3+ mg/dL (Normal) H 07/27/18 19:01 Urine Ketones Negative mg/dL (NEGATIVE) 07/27/18 19:01 Urine Blood Negative (NEGATIVE) 07/27/18 19:01 Urine Nitrate Negative (NEGATIVE) 07/27/18 19:01 Urine Bilirubin Negative (NEGATIVE) 07/27/18 19:01 Urine Urobilinogen Normal mg/dL (0.2-1.0) 07/27/18 19:01 Ur Leukocyte Esterase Neg Kathy/uL (Negative) 07/27/18 19:01 Urine WBC (Auto) 1 /hpf (0-5) 07/27/18 19:01 Urine RBC (Auto) 2 /hpf (0-3) 04/09/19 19:01 Ur Squamous Epith Cells < 1 /hpf (0-5) 07/27/18 19:01 Urine Bacteria Rare (<OCC) 07/27/18 19:01 Hyaline Casts 0-2 /lpf (0-2) 07/27/18 19:01 B-Hydroxybutyrate 1.21 mM (0.02-0.27) H 07/27/18 18:05 - Hospital Course Hospital Course: Patient presented to ED for evaluation of intractable vomiting. ED workup reve aled pt was hyperglycemic on admission, BG 392, and subsequently given IVF, NS 250cc bolus; 100cc/hr along with ISS. Pt given antiemetics, zofran/reglan. Obstructive series WNL. Pain medications prn. Dr. Nieves, nephrology consulted for management of ESRD on HD. Pt underwent dialysis as scheduled with improvement in Cr. Pt's history of HTN controlled with IV medications/clonidine patch. Dr. New, psych consulted for management of pt's anxiety. Pt started on risperdal. Surgery consulted, Dr. 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 Patient continued HD throughout admission. Pt discharged in stable condition with resolution of vomiting 2/2 Diabetic Gastroparesis. HPI on admission: "Patient is a 28 year old female with pmhx of poorly controlled IDDM, ESRD on HD(MWF), and seizures(pseudo?), anxiety who presents to ED today with complaints of nausea and intractable vomiting since this morning. Patient is accompanied by her mother who report pt did not have breakfast this morning, and then began having nausea, followed by multiple episodes of dark blown/bloody emesis. Pt a nd mother report compliance with diabetic diet at home, and medications and HD as instructed. Pt was scheduled for HD today, however presented to ED before getting dialyzed. Pt reports SOB and epigastric pain since onset of emesis this morning. Pt reports 1 episode of loose BM yesterday, and on average has been urinating approximately 2 times per day. Denies recent illness with fever like symptoms, chest pain, constipation, LE edema." For further details, refer to EMR Discharge Exam - Head Exam Head Exam: ATRAUMATIC, NORMAL INSPECTION, NORMOCEPHALIC - Additional Findings Additional findings: - Constitutional Appears: Non-toxic, No Acute Distress - Head Exam Head Exam: ATRAUMATIC, NORMAL INSPECTION, NORMOCEPHALIC - Eye Exam Eye Exam: EOMI, Normal appearance - ENT Exam ENT Exam: Mucous Membranes Moist, Normal Exam - Neck Exam Additional comments: right port a cath - Respiratory Exam Respiratory Exam: Clear to Auscultation Bilateral, NORMAL BREATHING PATTERN - Cardiovascular Exam Cardiovascular Exam: REGULAR RHYTHM, +S1, +S2. absent: Tachycardia - GI/Abdominal Exam GI & Abdominal Exam: Soft, Normal Bowel Sounds. absent: Distended, Tenderness - Extremities Exam Extremities Exam: Normal Inspection. absent: Calf Tenderness, Pedal Edema Additional comments: left knee: ROM WNL, minimal tenderness with posterior drawer, no deformity/swelling/erythema - Neurological Exam Neurological Exam: Alert, Awake, Oriented x3 - Psychiatric Exam Psychiatric exam: Normal Affect, Normal Mood - Skin Skin Exam: Dry, Intact, Normal Color, Warm Discharge Plan - Follow Up Plan Condition: GUARDED Disposition: HOME/ ROUTINE Instructions: Dialysis Diet , Gastroparesis (Delayed Gastric Emptying) (DC), End Stage Kidney Disease (DC) Additional Instructions: Patient discharged home in stable condition. Patient instructed to resume all home medications as prescribed. No changes to medications have been made. Patient instructed to continue HD as instructed. Patient is to follow up with PMD, Dr. King within 1 week of discharge Patient is to follow up with [facility], Dr. Nieves within 1 week of discharge Patient is to follow up with Vascular Surgery, Dr. Hines within 1 week of discharge Patient reminded to follow a diabetic diet Patient instructed to follow up with PMD or if unavailable, return to ED with any worsening of symptoms Discharge Exam - Head Exam Head Exam: ATRAUMATIC, NORMOCEPHALIC Discharge Plan - Discharge Medications Prescriptions: amLODIPine [Norvasc] 1 tab PO DAILY #30 tab Carvedilol [Coreg] 6.25 mg PO Q12 #60 tab cloNIDine 0.2 mg/24 hr [catapres-TTS2 0.2 mg/24 hr] 1 patch TD QWK #7 patch hydrOXYzine HCl [Atarax] 1 tab PO HS PRN #7 tab PRN Reason: Anxiety Insulin Detemir [Levemir] 20 units SC DAILY #2 vial Insulin Detemir [Levemir] 10 unit SC HS #1 unit Insulin Human Regular [Novolin R] 5 unit SC ACHS #1 unit Losartan Potassium 1 tab PO DAILY #30 tablet Metoclopramide [Reglan] 1 tab PO QID #20 tab Ondansetron HCl [Zofran] 1 tab PO Q6 PRN #20 tablet PRN Reason: Nausea/Vomiting Pantoprazole [Protonix EC Tab] 1 tab PO DAILY #30 ect QUEtiapine [SEROquel] 50 mg PO TID #90 tab Sertraline [Zoloft] 50 mg PO DAILY #30 tab - Follow Up Plan Condition: FAIR Disposition: HOME/ ROUTINE Additional Instructions: Patient discharged home in stable condition. Patient instructed to resume all home medications as prescribed. amLODIPine [Norvasc] 1 tab PO DAILY #30 tab Carvedilol [Coreg] 6.25 mg PO Q12 #60 tab Insulin Detemir [Levemir] 20 units SC DAILY #2 vial Insulin Detemir [Levemir] 10 unit SC HS #1 unit Insulin Human Regular [Novolin R] 5 unit SC ACHS #1 unit Losartan Potassium 1 tab PO DAILY #30 tablet Metoclopramide [Reglan] 1 tab PO QID #20 tab Ondansetron HCl [Zofran] 1 tab PO Q6 PRN #20 tablet PRN Reason: Nausea/Vomiting Pantoprazole [Protonix EC Tab] 1 tab PO DAILY #30 ect The following psychiatric medications are to be taken as prescribed QUEtiapine [SEROquel] 50 mg PO TID #90 tab Sertraline [Zoloft] 50 mg PO DAILY #30 tab cloNIDine 0.2 mg/24 hr [catapres-TTS2 0.2 mg/24 hr] 1 patch TD QWK #7 patch hydrOXYzine HCl [Atarax] 1 tab PO HS PRN #7 tab PRN Reason: Anxiety Patient instructed to continue HD as instructed. Patient is to follow up with PMD, Dr. King within 1 week of discharge Patient is to follow up with [facility], Dr. Nieves within 1 week of discharge Patient is to follow up with Vascular Surgery, Dr. Hines within 1 week of discharge Please follow up with your Psychiatrist Dr Mckeon within 7 days of discharge Patient reminded to follow a diabetic diet Patient instructed to follow up with PMD or if unavailable, return to ED with any worsening of symptoms Referrals: Reza King Jr., MD [Medical Doctor] - Tawanda Hines Jr., MD [Staff Provider] - Migue Nieves MD [Staff Provider] - Jomar Mckeon MD [Staff Provider] -
== END 2018-08-08 13:50 | disposition home or self-care (01) | DRG 18 ==
LOC: C.ER 16:22 → C.6T 19:05 → C.3T 08-05 07:59
PROVIDERS: ADMIT Internal Medicine; ATTEND Internal Medicine
PROC: 5A1D70Z Performance of Urinary Filtration, Intermittent, Less than 6 Hours Per Day (ICD-10-PCS; principal; 2018-07-28)
PROC: 5A1D70Z Performance of Urinary Filtration, Intermittent, Less than 6 Hours Per Day (ICD-10-PCS; 2018-08-02)
PROC: 5A1D70Z Performance of Urinary Filtration, Intermittent, Less than 6 Hours Per Day (ICD-10-PCS; 2018-08-04)
PROC: 5A1D70Z Performance of Urinary Filtration, Intermittent, Less than 6 Hours Per Day (ICD-10-PCS; 2018-08-06)
DX: E11.43 Type 2 diabetes mellitus with diabetic autonomic (poly)neuropathy (principal); K31.84 Gastroparesis; E11.21 Type 2 diabetes mellitus with diabetic nephropathy; N18.6 End stage renal disease; I12.0 Hypertensive chronic kidney disease with stage 5 chronic kidney disease or end stage renal disease; F33.2 Major depressive disorder, recurrent severe without psychotic features; R44.3 Hallucinations, unspecified; E11.22 Type 2 diabetes mellitus with diabetic chronic kidney disease; E11.65 Type 2 diabetes mellitus with hyperglycemia; E83.39 Other disorders of phosphorus metabolism; F05 Delirium due to known physiological condition; F41.1 Generalized anxiety disorder; F44.5 Conversion disorder with seizures or convulsions; E11.649 Type 2 diabetes mellitus with hypoglycemia without coma; F60.9 Personality disorder, unspecified; K29.70 Gastritis, unspecified, without bleeding; K59.00 Constipation, unspecified; Z96.41 Presence of insulin pump (external) (internal); Z99.2 Dependence on renal dialysis; Z76.5 Malingerer [conscious simulation]; Z79.899 Other long term (current) drug therapy; Z90.49 Acquired absence of other specified parts of digestive tract

== ENCOUNTER 2018-08-10 11:32 | Inpatient (IN) | payer MEDICAID ==
[2018-08-10 11:37] VITALS: BMI 23.3
[2018-08-10] MEDS ORDERED: Sodium Chloride 0.9% 250 ML IV ONE ×2 (11:42→12:04)
[2018-08-10 12:05] LABS: BASO # 0.1 K/uL (0.0-0.2); BASO % 0.9 % (0.0-2.0); EOS # 0.3 K/uL (0.0-0.7); EOS % 2.9 % (0.0-4.0); HEMOGLOBIN 11.8 g/dL (11.0-16.0); LYMPH # 2.1 K/uL (1.0-4.3); LYMPH % 17.8 % (20.0-40.0); MEAN CELL VOLUME 80.3 fL (81.0-99.0); MEAN CORPUSCULAR HEMOGLOBIN 26.5 pg (27.0-31.0); MEAN PLATELET VOLUME 10.3 fL (7.2-11.7); MONO # 0.4 K/uL (0.0-0.8); MONO % 3.4 % (0.0-10.0); RBC 4.47 Mil/uL (3.80-5.20); RED CELL DISTRIBUTION WIDTH 17.8 % (11.5-14.5)
--- NOTE | 2018-08-10 12:26 | C.PDOC ---
History Of Present Illness 28 y/o female, brought to ER by ambulance, for evaluation of witnessed seizure. Patient states that seizure lasted about 30 seconds. Patient is also complaining of nausea,vomiting, and abdominal pain which began in the morning today. Denies having fever,chills,CP, and SOB. PMhx: diabetes,HTN,ESRD (on hemodialysis), gastroparesis, pseudo-seizures ?, anemia, and anxiety Time Seen by Provider: 08/10/18 11:37 Chief Complaint (Nursing): Abdominal Pain History Per: Patient History/Exam Limitations: no limitations Onset/Duration Of Symptoms: Hrs Current Symptoms Are (Timing): Still Present Severity: Moderate Past Medical History Reviewed: Historical Data, Nursing Documentation, Vital Signs Vital Signs: Last Vital Signs Temp 97.8 F 08/10/18 11:39 Pulse 108 H 08/10/18 11:36 Resp 22 08/10/18 11:36 BP 189/120 H 08/10/18 11:36 Pulse Ox 100 08/10/18 11:36 - Medical History PMH: Anemia, Anxiety, Bronchitis, Depression, Diabetes, HTN, End Stage Renal Disease, Chronic Kidney Disease, Seizures (Pseudo seizures?) Denies: HIV Surgical History: Appendectomy, Endoscopy - [facility] (07/27/18) (02/23/18) BYPASS LEFT BRACHIAL ARTERY TO UPPER ARM VEIN, OPEN APPROACH (04/28/18) EXCISION OF STOMACH, ENDO, DIAGN (11/02/16) EXCISION OF STOMACH, PYLORUS, ENDO, DIAGN (03/10/17) FLUOROSCOPY OF RIGHT SUBCLAVIAN VEIN, GUIDANCE (01/16/18) GROUP PSYCHOTHERAPY (06/09/17) INDIVIDUAL PSYCHOTHERAPY, SUPPORTIVE (06/09/17) INSERT INFUSION DEV IN L EXT JUGULAR VEIN, PERC (05/29/18) INSERTION OF INFUSION DEV INTO L FEMOR VEIN, PERC APPROACH (02/23/18) INSERTION OF INFUSION DEV INTO L SUBCLAV VEIN, PERC APPROACH (10/28/16) INSERTION OF INFUSION DEV INTO R SUBCLAV VEIN, PERC APPROACH (01/16/18) INSERTION OF INFUSION DEV INTO SUP VENA CAVA, PERC APPROACH (11/23/17) INTRODUCTION OF NUTRITIONAL INTO PERIPH VEIN, PERC APPROACH (10/16/16) MEDICATION MANAGEMENT (06/09/17) ULTRASONOGRAPHY OF SUPERIOR VENA CAVA, GUIDANCE (10/16/16) Family History: States: No Known Family Hx - Social History Hx Tobacco Use: No Hx Alcohol Use: No Hx Substance Use: No - Immunization History Hx Tetanus Toxoid Vaccination: No Hx Influenza Vaccination: Yes Hx Pneumococcal Vaccination: Yes Review Of Systems Except As Marked, All Systems Reviewed And Found Negative. Constitutional: Negative for: Fever, Chills Cardiovascular: Negative for: Chest Pain Respiratory: Negative for: Shortness of Breath Gastrointestinal: Positive for: Nausea, Vomiting, Abdominal Pain Physical Exam - Physical Exam Appears: Other (crying,tearful) Skin: Normal Color, Warm, Dry Head: Atraumatic, Normacephalic Eye(s): bilateral: Normal Inspection Nose: Normal Oral Mucosa: Moist Neck: Supple Chest: Symmetrical, Other (right chest port) Cardiovascular: Rhythm Regular (with tachycardia) Respiratory: Normal Breath Sounds, No Rales, No Rhonchi, No Wheezing Gastrointestinal/Abdominal: Soft, Tenderness (diffuse tenderness), No Guarding, No Rebound Neurological/Psych: Oriented x3, Normal Speech ED Course And Treatment - Laboratory Results Result Diagrams: 08/10/18 11:57 08/10/18 11:57 O2 Sat by Pulse Oximetry: 100 (RA) Pulse Ox Interpretation: Normal Progress Note: Blood work, UA, Upreg and CXR ordered and reviewed. 20 gauge EJ was inserted into the left EJ vein of neck due to poor peripheral acess. Patient treated with Morphine IV, Protonix IV, Zofran IV, and IV Fluids. Approx 10 min after getting pain medication, patient is requesting morphine again. Explained to patient she will not be getting any more narcotics in the ED. - Physician Consult Information Outcome Of Conversation: Discussed patient with PMD, agrees with observation for intractable abdominal pain, gastroparesis, nausea/vomiting. Disposition - Disposition Disposition: HOSPITALIZED Disposition Time: 12:53 Condition: STABLE - Clinical Impression Clinical Impression: Drug-seeking behavior, Gastroparesis, Intractable abdominal pain, Nausea & vomiting, Diabetes mellitus, ESRD on hemodialysis - Scribe Statement The provider has reviewed the documentation as recorded by the Jw Green Provider Attestation: All medical record entries made by the Monoibelvis were at my direction and personally dictated by me. I have reviewed the chart and agree that the record accurately reflects my personal performance of the history, physical exam, medical decision making, and the department course for this patient. I have also personally directed, reviewed, and agree with the discharge instructions and disposition. Decision To Admit - Pt Status Changed To: Hospital Disposition Of: Observation - . Bed Request Type: Telemetry Admitting Physician: Reza King Jr. Patient Diagnosis: ESRD on hemodialysis, Gastroparesis, Drug-seeking behavior, Nausea & vomiting, Intractable abdominal pain, Diabetes mellitus
[2018-08-10 12:34] LABS: ALB/GLOB RATIO 1.4 (1.0-2.1); ALBUMIN 3.8 g/dL (3.5-5.0); ALT/SGPT 32 U/L (9-52); AST/SGOT 31 U/L (14-36); BLOOD UREA NITROGEN 22 mg/dL (7-17); CALCIUM 9.1 mg/dl (8.6-10.4); GFR NON-AFRICAN AMERICAN 12; LIPASE 152 U/L (23-300)
--- NOTE | 2018-08-10 13:09 | RAD ---
HISTORY: nausea/vomiting COMPARISON: Chest x-ray performed 07/27/18 TECHNIQUE: Chest, one view. FINDINGS: Right IJ approach dialysis catheter with distal tips terminating at the cavoatrial junction/right atrium. LUNGS: No focal consolidation. Please note that chest x-ray has limited sensitivity for the detection of pulmonary masses. PLEURA: No significant pleural effusion identified. No definite pneumothorax . CARDIOVASCULAR: Heart size appears within normal limits. No significant atherosclerotic calcification present. OSSEOUS STRUCTURES: No acute osseous abnormality identified. VISUALIZED UPPER ABDOMEN: Unremarkable. OTHER FINDINGS: None. IMPRESSION: Right IJ approach dialysis catheter with distal tips terminating at the cavoatrial junction/right atrium.
[2018-08-10 13:21] LABS: VENOUS BLOOD GAS PCO2 29 mmHg (40-60); VENOUS BLOOD PH 7.55 (7.32-7.43)
[2018-08-10 13:22] LABS: VENOUS BLOOD GAS BASE EXCESS 3.8 mmol/L (0.0-2.0); VENOUS BLOOD GAS PO2 197 mm/Hg (30-55)
--- NOTE | 2018-08-10 14:19 | CP.PCM.CON ---
History of Present Illness - History of Present Illness History of Present Illness: Nephro Consult Note for Dr. Nieves Service Oracio Nash DO PGY-3 Consulted for: ESRD on HD This is a 28 yo F with extensive PMH, including poorly controlled IDDM, diabetic gastroparesis, ESRD on HD (MWF), seizures/pseudoseizures, and possible Munchausen's who again presents to with complaint of intractable abd pain, nausea, and vomiting. Of note, patient was just recently discharged from [facility] for almost identical presentation (07/28-08/08). HPI/ROS limited due to patient sedation (already given IV morphine, diluadid, and ativan)/reticent to talk. As per mother at bedside, patient did well after discharge, and went to her scheduled HD session yesterday. Underwent full session without issue, patient confirms this. This AM, tolerated breakfast without issue, but mother reports being called later by home health aide who reported patient was vomiting up and was no longer able to tolerate any PO intake. Patient reported to admitting team that the emesis was non-bilious but with some bloody streaking, not witnessed since arrival. Patient reports still getting HD from right chest wall port, AV fistula not yet matured. At time of exam, mostly resting/moaning in pain, occasionally spitting up clear spittle and allowing it to dribble down onto a towel. Claims can't take deep breaths for lung asculation due to abdominal pain, and refusing most of abdominal pain. As per prior charting: PMH: as above PHS: appendectomy, AV Fistula Fam Hx: Heart disease Soc Hx: Denies alcohol/tobacco/drug use Review of Systems - Review of Systems Systems not reviewed;Unavailable: Other (sedated with multiple medications, only answering few questions with 1-2 word answers) Past Patient History - Infectious Disease Hx of Infectious Diseases: None - Past Medical History & Family History Past Medical History?: Yes - Past Social History Smoking Status: Never Smoked - CARDIAC Hx Hypertension: Yes - PULMONARY Hx Bronchitis: Yes - NEUROLOGICAL Hx Seizures: Yes (Pseudo seizures?) - HEENT Hx HEENT Problems: Yes Hx Cataracts: Yes - RENAL Hx Chronic Kidney Disease: Yes - ENDOCRINE/METABOLIC Hx Endocrine Disorders: Yes Hx Diabetes Mellitus Type 2: Yes (on insulin pump) - HEMATOLOGICAL/ONCOLOGICAL Hx Anemia: Yes Hx Human Immunodeficiency Virus (HIV): No - INTEGUMENTARY Hx Dermatological Problems: No - MUSCULOSKELETAL/RHEUMATOLOGICAL Hx Musculoskeletal Disorders: Yes Hx Falls: Yes - GASTROINTESTINAL Hx Gastrointestinal Disorders: Yes (SEE COMMENT) Other/Comment: gastroparesis - GENITOURINARY/GYNECOLOGICAL Hx Genitourinary Disorders: No - PSYCHIATRIC Hx Anxiety: Yes Hx Depression: Yes Hx Substance Use: No - SURGICAL HISTORY Hx Appendectomy: Yes - ANESTHESIA Hx Anesthesia: Yes Hx Anesthesia Reactions: No Hx Malignant Hyperthermia: No Meds Allergies/Adverse Reactions: Allergies Allergy/AdvReac Type Severity Reaction Status Date / Time No Known Allergies Allergy Verified 08/10/18 11:36 - Medications Medications: Current Medications Hydromorphone HCl (Dilaudid) 0.5 mg IVP Q8H PRN PRN Reason: Pain, severe (8-10) Hydroxyzine HCl (Atarax) 25 mg IM Q6H PRN PRN Reason: Agitation Lorazepam (Ativan) 1 mg IM Q8H PRN PRN Reason: Anxiety Last Admin: 08/10/18 14:14 Dose: 1 mg Metoclopramide HCl (Reglan) 5 mg IVP Q6 PRN PRN Reason: Nausea/Vomiting Ondansetron HCl (Zofran Inj) 4 mg IVP Q6 PRN PRN Reason: Nausea/Vomiting Physical Exam - Constitutional Appears: Chronically Ill Additional comments: Exam limited due to minimally interactive patient, only following some commands - Head Exam Head Exam: ATRAUMATIC, NORMOCEPHALIC - Eye Exam Eye Exam: Normal appearance. absent: Conjunctival injection, Scleral icterus - ENT Exam Additional comments: intermittently spitting up small amounts of clear saliva, no blood or bile appreciated - Respiratory Exam Additional comments: limited exam due to pt refusing to take full breaths due to abdominal pain CTAB, no wheezes/rales/ronchi appreciated No chest wall tenderness - Cardiovascular Exam Cardiovascular Exam: Tachycardia, REGULAR RHYTHM, +S1, +S2. absent: Bradycardia, Irregular Rhythm, JVD - GI/Abdominal Exam GI & Abdominal Exam: Normal Bowel Sounds. absent: Hyperactive Bowel Sounds, Hypoactive Bowel Sounds Additional comments: Exam limited due to patient refusing most abdominal exam (due to pain) Normal bowel sounds heard Non-rigid abdomen, not distended, not able to palpate further - Extremities Exam Extremities exam: Positive for: normal capillary refill, normal inspection, pedal pulses present. Negative for: calf tenderness, joint swelling, pedal edema, tenderness - Neurological Exam Additional comments: somnolent due to meds but arousable, follows some commands, minimal spontaneous movements of extremites noted - Psychiatric Exam Additional comments: sedate 2/2 meds, reported as severely anxious/agitated in ED prior to medication - Skin Skin Exam: Dry, Intact, Normal Color, Warm Results - Vital Signs Recent Vital Signs: Last Vital Signs Temp 98.8 F 08/10/18 14:15 Pulse 107 H 08/10/18 14:15 Resp 22 08/10/18 14:15 BP 172/111 H 08/10/18 14:15 Pulse Ox 95 08/10/18 14:15 - Labs Result Diagrams: 08/10/18 11:57 08/10/18 11:57 Labs: Laboratory Results - last 24 hr 08/10/18 08/10/18 08/10/18 11:43 11:57 11:57 WBC 12.0 H D RBC 4.47 Hgb 11.8 Hct 35.9 MCV 80.3 L MCH 26.5 L MCHC 33.0 RDW 17.8 H Plt Count 204 MPV 10.3 Neut % (Auto) 75.0 Lymph % (Auto) 17.8 L [place] % (Auto) 3.4 Eos % (Auto) 2.9 Baso % (Auto) 0.9 Neut # (Auto) 9.0 H Lymph # (Auto) 2.1 [place] # (Auto) 0.4 Eos # (Auto) 0.3 Baso # (Auto) 0.1 pO2 197 H VBG pH 7.55 H VBG pCO2 29 L VBG HCO3 28.0 VBG Total CO2 26.3 VBG O2 Sat (Calc) 97.9 H VBG Base Excess 3.8 H VBG Potassium 3.7 Sodium 137.0 136 Chloride 102.0 102 Glucose 204 H Lactate 1.6 Potassium 4.0 Carbon Dioxide 26 Anion Gap 13 BUN 22 H Creatinine 4.3 H Est GFR ( Amer) 15 Est GFR (Non-Af Amer) 12 Random Glucose 224 H D Calcium 9.1 Total Bilirubin 0.3 AST 31 ALT 32 Alkaline Phosphatase 124 Total Protein 6.6 Albumin 3.8 Globulin 2.8 Albumin/Globulin Ratio 1.4 Lipase 152 Beta HCG, Quant < 2.39 Venous Blood Potassium 3.7 Assessment & Plan - Assessment and Plan (Free Text) Assessment: This is a 28yo F with extensive PMH, including poorly controlled IDDM, diabetic gastroparesis, ESRD on HD (MWF), seizure activity, and Munchausens who presented to with complaint of intractable vomiting. Nephro was consulted for continuation of HD. Plan: 1) poorly controlled IDDM 2) diabetic gastroparesis 3) ESRD on HD (MWF) 4) Seizures/Pseudoseizures 5) Munchausen's hx 6) Mild leukocytosis -Underwent HD yesterday, electrolytes wnl, can resume normal HD schedule tomorrow Too somnolent for consent now, will attempt to obtain prior to session tomorrow AM -Mildly elevated BG this admission (224) and no anion gap, so not DKA Will follow up with patient when more awake to find out if she refilled her insulin supplies after discharge (admitted running out prior admission) -Not currently fluid overloaded, clinical appearance and labs not suggestive of dehydration, unclear how much or how real her emesis is, either hold off IVF or only hydrate gently given ESRD -Avoid morphine for pain control in ESRD pts given renal metabolites, low-dose diluadid preferable -suspect leukocytosis more likely reactive to stress/emesis/agitation, low suspicion of infection process at this time -BP acutely elevated to 190's/140's on floor, resume clonidine patch, likely also some component of elevation 2/2 agitation/anxiety Patient reviewed and discussed with attending, Dr. Nieves.
--- NOTE | 2018-08-10 14:24 | CP.PCM.HP ---
History of Present Illness - History of Present Illness History of Present Illness: 28 year old female with past medical history of uncontrolled diabetes, diabetic gastroparesis, ESRD on HD (MWF), and pseudoseizures was brought in by her mother and mechanical planner for intractable vomiting and abdominal pain started this morning. This is patient is well known to our service. She multiple admission in the past for the similar complaints. She was last discharged on 08/08/18. Patient describes her vomitus has been nonbilious with slight streaks of blood and there were no clots. Her abdominal pain is located in the periumbilical region. She describes the pain has sharp and non radiating. The pain is constant and nothing makes the pain worse or better. Patient went for HD yesterday and reports to be compliant with her medications. Unable to obtain detail ROS due to patient's agitation. PMHx: DM type 1, diabetic gastroparesis, ESRD, pseudoseizures, anxiety, depression PSHx: appendectomy, AVF Allergies: NKDA Famhx: Maternal grandmother with unknown heart disease Social Hx: former smoker quit 6 years ago, denies tobacco and alcohol use Meds: see MAR Present on Admission - Present on Admission Any Indicators Present on Admission: No Review of Systems - Review of Systems Systems not reviewed;Unavailable: Other (agitated) All systems: reviewed and no additional remarkable complaints except - Constitutional Constitutional: As Per HPI - Cardiovascular Cardiovascular: As Per HPI. absent: Irregular Heart Rhythm, Palpitations - Respiratory Respiratory: As Per HPI. absent: Cough, Hemoptysis, Wheezing - Gastrointestinal Gastrointestinal: As Per HPI, Abdominal Pain, Nausea, Vomiting Past Patient History - Infectious Disease Hx of Infectious Diseases: None - Past Medical History & Family History Past Medical History?: Yes - Past Social History Smoking Status: Never Smoked - CARDIAC Hx Hypertension: Yes - PULMONARY Hx Bronchitis: Yes - NEUROLOGICAL Hx Seizures: Yes (Pseudo seizures?) - HEENT Hx HEENT Problems: Yes Hx Cataracts: Yes - RENAL Hx Chronic Kidney Disease: Yes - ENDOCRINE/METABOLIC Hx Endocrine Disorders: Yes Hx Diabetes Mellitus Type 2: Yes (on insulin pump) - HEMATOLOGICAL/ONCOLOGICAL Hx Anemia: Yes Hx Human Immunodeficiency Virus (HIV): No - INTEGUMENTARY Hx Dermatological Problems: No - MUSCULOSKELETAL/RHEUMATOLOGICAL Hx Musculoskeletal Disorders: Yes Hx Falls: Yes - GASTROINTESTINAL Hx Gastrointestinal Disorders: Yes (SEE COMMENT) Other/Comment: gastroparesis - GENITOURINARY/GYNECOLOGICAL Hx Genitourinary Disorders: No - PSYCHIATRIC Hx Anxiety: Yes Hx Depression: Yes Hx Substance Use: No - SURGICAL HISTORY Hx Appendectomy: Yes - ANESTHESIA Hx Anesthesia: Yes Hx Anesthesia Reactions: No Hx Malignant Hyperthermia: No Meds Allergies/Adverse Reactions: Allergies Allergy/AdvReac Type Severity Reaction Status Date / Time No Known Allergies Allergy Verified 08/10/18 11:36 Physical Exam - Constitutional Appears: Older Than Stated Age, Agitated - Head Exam Head Exam: ATRAUMATIC, NORMOCEPHALIC - Eye Exam Eye Exam: EOMI, Normal appearance, PERRL Pupil Exam: NORMAL ACCOMODATION - ENT Exam ENT Exam: Mucous Membranes Moist, Normal Exam - Neck Exam Neck exam: Negative for: Normal Inspection (left jugular IV access) - Respiratory Exam Respiratory Exam: Clear to Auscultation Bilateral, NORMAL BREATHING PATTERN. absent: Wheezes, Respiratory Distress Additional comments: R chest dialysis catheter intact - Cardiovascular Exam Cardiovascular Exam: REGULAR RHYTHM, +S1, +S2 - GI/Abdominal Exam GI & Abdominal Exam: Normal Bowel Sounds, Soft. absent: Tenderness - Extremities Exam Extremities exam: Positive for: normal capillary refill, pedal pulses present - Neurological Exam Neurological exam: Alert, Oriented x3 - Psychiatric Exam Psychiatric exam: Normal Affect, Normal Mood - Skin Skin Exam: Dry, Warm Results - Vital Signs Recent Vital Signs: Last Vital Signs Temp 98.8 F 08/10/18 14:15 Pulse 107 H 08/10/18 14:15 Resp 22 08/10/18 14:15 BP 172/111 H 08/10/18 14:15 Pulse Ox 95 08/10/18 14:15 - Labs Result Diagrams: 08/10/18 11:57 08/10/18 11:57 Labs: Laboratory Results - last 24 hr 08/10/18 08/10/18 08/10/18 11:43 11:57 11:57 WBC 12.0 H D RBC 4.47 Hgb 11.8 Hct 35.9 MCV 80.3 L MCH 26.5 L MCHC 33.0 RDW 17.8 H Plt Count 204 MPV 10.3 Neut % (Auto) 75.0 Lymph % (Auto) 17.8 L [place] % (Auto) 3.4 Eos % (Auto) 2.9 Baso % (Auto) 0.9 Neut # (Auto) 9.0 H Lymph # (Auto) 2.1 [place] # (Auto) 0.4 Eos # (Auto) 0.3 Baso # (Auto) 0.1 pO2 197 H VBG pH 7.55 H VBG pCO2 29 L VBG HCO3 28.0 VBG Total CO2 26.3 VBG O2 Sat (Calc) 97.9 H VBG Base Excess 3.8 H VBG Potassium 3.7 Sodium 137.0 136 Chloride 102.0 102 Glucose 204 H Lactate 1.6 Potassium 4.0 Carbon Dioxide 26 Anion Gap 13 BUN 22 H Creatinine 4.3 H Est GFR ( Amer) 15 Est GFR (Non-Af Amer) 12 Random Glucose 224 H D Calcium 9.1 Total Bilirubin 0.3 AST 31 ALT 32 Alkaline Phosphatase 124 Total Protein 6.6 Albumin 3.8 Globulin 2.8 Albumin/Globulin Ratio 1.4 Lipase 152 Beta HCG, Quant < 2.39 Venous Blood Potassium 3.7 Assessment & Plan - Assessment and Plan (Free Text) Assessment: Intractable vomiting, abdominal pain Likely secondary to diabetic gastroparesis vs psychogenic Reglan 5mg Q6 PRN zofran 4mg Q6H PRN Dilaudid 0.5 mg Q8H Protonix 40 mg Carb consistent liquid diet NS @ 60 mls/hr Anxiety,Major depression disorder, pseudoseizure Psychiatry consulted, Dr. Mckeon help appreciated zoloft 25 mg Po daily seroquel 50 mg daily and 50 mg HS Atarax 25mg Q6 PRN Yumi Monitor Diabetes Last Hgb A1c 07/05/18: 6.1 Novolog 70/30 20 units Novolog 70/30 10 units ISS Hypoglycemia protocol Accuchecks ACHS ESRD on HD (MWF) Nephrology consulted, Dr. Nieves help appreciated Last dialysis was yesterday Cr 4.3 today Nephro consulted: Dr. Nieves - help appreciated Hypertension Clonidine 0.2 TD weekly Losartan 25 mg PO daily Coreg 6.25 mg PO BID PPx DVT: Heparin GI: Protonix Case discussed with Dr. King
[2018-08-10] MEDS: HYDROmorphone 0.5 mg/0.5 ml ISec IVP PRN ×2 (14:26→22:27)
[2018-08-10] MEDS ORDERED: Dextrose 50% SYRINGE Inj (50 ml) IV PRN (14:56)
[2018-08-10] MEDS ORDERED: Glucagon Recombinant 1 mg Inj IM PRN (14:56)
[2018-08-10] MEDS: (Novolin R) Insulin Human Regular 100 units/ml vial SC SCH ×2 (18:05→22:43)
[2018-08-10] MEDS: Sodium Chloride 0.9% 1,000 ML IV SCH (18:06)
[2018-08-10] MEDS: hydrOXYzine HCl 25 mg/ml Inj IM PRN (21:19)
[2018-08-10] MEDS: (Novolog Mix 70/30) Insulin Aspart/Insulin Aspar 100 units/ml SC SCH (22:44)
[2018-08-11] MEDS: HYDROmorphone 0.5 mg/0.5 ml ISec IVP PRN ×3 (05:07→18:54)
[2018-08-11] MEDS: (Novolin R) Insulin Human Regular 100 units/ml vial SC SCH ×5 (07:42→21:54)
[2018-08-11] MEDS: Sodium Chloride 0.9% 1,000 ML IV SCH ×2 (07:58→15:55)
--- NOTE | 2018-08-11 07:59 | CP.PCM.PN ---
Subjective - Date & Time of Evaluation Date of Evaluation: 08/11/18 Time of Evaluation: 07:56 - Subjective Subjective: Medicine Progress Note for Dr. King's service S/E at bedside Reports ongoing nausea/vomiting and abdominal pain For HD today with nephrology team Denies f, cp, sob, constipation or diarrhea, and dysuria. Objective - Vital Signs/Intake and Output Vital Signs (last 24 hours): Temp Pulse Resp BP Pulse Ox 98.9 F 100 H 20 179/120 H 96 08/11/18 07:00 08/11/18 07:00 08/11/18 07:00 08/11/18 07:00 08/11/18 07:00 Intake and Output: 08/11/18 08/11/18 06:59 18:59 Intake Total 720 Balance 720 - Medications Medications: Current Medications Carvedilol (Coreg) 6.25 mg PO Q12 [facility] Last Admin: 08/10/18 22:37 Dose: 6.25 mg Clonidine HCl (Catapres-Tts2 0.2 Mg/24 Hr) 1 patch TD QWK [facility] Dextrose (Dextrose 50% Inj) 0 ml IV STAT PRN; Protocol PRN Reason: Hypoglycemia Protocol Dextrose (Glutose 15) 0 gm PO ONCE PRN; Protocol PRN Reason: Hypoglycemia Protocol Glucagon (Glucagen Diagnostic Kit) 0 mg IM STAT PRN; Protocol PRN Reason: Hypoglycemia Protocol Heparin Sodium (Porcine) (Heparin) 5,000 units SC Q12 [facility] Last Admin: 08/10/18 22:43 Dose: Not Given Hydromorphone HCl (Dilaudid) 0.5 mg IVP Q8H PRN PRN Reason: Pain, severe (8-10) Last Admin: 08/11/18 05:07 Dose: 0.5 mg Hydroxyzine HCl (Atarax) 25 mg IM Q6H PRN PRN Reason: Agitation Last Admin: 08/10/18 21:19 Dose: 25 mg Sodium Chloride (Sodium Chloride 0.9%) 1,000 mls @ 60 mls/hr IV .[id number] [facility] Last Admin: 08/10/18 18:06 Dose: 60 mls/hr Dextrose (Dextrose 5% In Water 1000 Ml) 1,000 mls @ 0 mls/hr IV .Q0M PRN; Protocol PRN Reason: Hypoglycemia Protocol Insulin Aspart (Novolog Mix 70/30 (70/30 Units/Ml)) 20 units SC DAILY [facility] Insulin Aspart (Novolog Mix 70/30 (70/30 Units/Ml)) 10 units SC [facility] Last Admin: 08/10/18 22:44 Dose: Not Given Insulin Human Regular (Novolin R) 0 unit SC [facility]; Protocol Last Admin: 08/11/18 07:42 Dose: 6 units Lorazepam (Ativan) 1 mg IM Q8H PRN PRN Reason: Anxiety Last Admin: 08/11/18 07:41 Dose: 1 mg Losartan Potassium (Cozaar) 12.5 mg PO DAILY [facility] Metoclopramide HCl (Reglan) 5 mg IVP Q6 PRN PRN Reason: Nausea/Vomiting Ondansetron HCl (Zofran Inj) 4 mg IVP Q6 PRN PRN Reason: Nausea/Vomiting Last Admin: 08/11/18 04:26 Dose: 4 mg Pantoprazole Sodium (Protonix Ec Tab) 40 mg PO DAILY [facility] Quetiapine Fumarate (Seroquel) 50 mg PO DAILY [facility] Quetiapine Fumarate (Seroquel) 50 mg PO [facility] Last Admin: 08/10/18 22:38 Dose: 50 mg Sertraline HCl (Zoloft) 25 mg PO DAILY [facility] - Labs Labs: 08/10/18 11:57 08/10/18 11:57 - Constitutional Appears: Unkempt, Chronically Ill - Head Exam Head Exam: NORMAL INSPECTION - Eye Exam Eye Exam: EOMI, Normal appearance. absent: Nystagmus, Scleral icterus - ENT Exam ENT Exam: Mucous Membranes Dry Additional comments: left jugular IV access - Respiratory Exam Respiratory Exam: Clear to Ausculation Bilateral, NORMAL BREATHING PATTERN. absent: Rhonchi, Wheezes Additional comments: R chest dialysis catheter intact - Cardiovascular Exam Cardiovascular Exam: Tachycardia, REGULAR RHYTHM, +S1, +S2 - GI/Abdominal Exam GI & Abdominal Exam: Soft, Normal Bowel Sounds. absent: Distended, Firm, Guarding, Rigid, Tenderness - Extremities Exam Extremities Exam: Normal Inspection. absent: Calf Tenderness, Pedal Edema - Neurological Exam Neurological Exam: Awake, Oriented x3 - Psychiatric Exam Psychiatric exam: Normal Affect, Normal Mood - Skin Skin Exam: Dry, Intact, Normal Color Assessment and Plan - Assessment and Plan (Free Text) Plan: Intractable vomiting, abdominal pain Likely secondary psychogenic; multiple hospitalizations for similar episodes Reglan 5mg Q6 PRN zofran 4mg Q6H PRN Dilaudid 0.5 mg Q8H Protonix 40 mg Carb consistent liquid diet NS @ 60 mls/hr Anxiety,Major depression disorder, pseudoseizure Psychiatry consulted, Dr. Mckeon help appreciated zoloft 25 mg Po daily seroquel 50 mg daily and 50 mg HS Atarax 25mg Q6 PRN Yumi Monitor Diabetes Last Hgb A1c 07/05/18: 6.1 Novolog 70/30 20 units Novolog 70/30 10 units ISS Hypoglycemia protocol Accuchecks ACHS ESRD on HD (MW) Nephrology consulted, Dr. Nieves help appreciated HD today Hypertension Clonidine 0.2 TD weekly Losartan 25 mg PO daily Coreg 6.25 mg PO BID PPx DVT: Heparin GI: Protonix Case discussed with Dr. King
--- NOTE | 2018-08-11 09:34 | CP.PCM.PN ---
Subjective - Date & Time of Evaluation Date of Evaluation: 08/11/18 Time of Evaluation: 09:25 - Subjective Subjective: Nephro Progress Note for Dr. Nieves Service Oracio Nash DO, PGY-3 IM Patient seen and examined at bedside. Overnight, continued to have frequent episodes of pain, repeatedly requesting more dilaudid and/or ativan. As per nursing, BRENDA system caught patient inducing vomiting. Underwent HD today and had some fluid removed, but continued to have episodes of emesis after HD. Objective - Vital Signs/Intake and Output Vital Signs (last 24 hours): Temp Pulse Resp BP Pulse Ox 98.9 F 96 H 20 179/120 H 96 08/11/18 07:00 08/11/18 08:10 08/11/18 07:00 08/11/18 07:00 08/11/18 07:00 Intake and Output: 08/11/18 08/11/18 06:59 18:59 Intake Total 720 Balance 720 - Medications Medications: Current Medications Carvedilol (Coreg) 6.25 mg PO Q12 [facility] Last Admin: 08/10/18 22:37 Dose: 6.25 mg Clonidine HCl (Catapres-Tts2 0.2 Mg/24 Hr) 1 patch TD QWK [facility] Dextrose (Dextrose 50% Inj) 0 ml IV STAT PRN; Protocol PRN Reason: Hypoglycemia Protocol Dextrose (Glutose 15) 0 gm PO ONCE PRN; Protocol PRN Reason: Hypoglycemia Protocol Glucagon (Glucagen Diagnostic Kit) 0 mg IM STAT PRN; Protocol PRN Reason: Hypoglycemia Protocol Heparin Sodium (Porcine) (Heparin) 5,000 units SC Q12 [facility] Last Admin: 08/10/18 22:43 Dose: Not Given Hydromorphone HCl (Dilaudid) 0.5 mg IVP Q8H PRN PRN Reason: Pain, severe (8-10) Last Admin: 08/11/18 05:07 Dose: 0.5 mg Hydroxyzine HCl (Atarax) 25 mg IM Q6H PRN PRN Reason: Agitation Last Admin: 08/10/18 21:19 Dose: 25 mg Sodium Chloride (Sodium Chloride 0.9%) 1,000 mls @ 60 mls/hr IV .[id number] [facility] Last Admin: 08/11/18 07:58 Dose: Not Given Dextrose (Dextrose 5% In Water 1000 Ml) 1,000 mls @ 0 mls/hr IV .Q0M PRN; Pr otocol PRN Reason: Hypoglycemia Protocol Insulin Aspart (Novolog Mix 70/30 (70/30 Units/Ml)) 20 units SC DAILY [facility] Insulin Aspart (Novolog Mix 70/30 (70/30 Units/Ml)) 10 units SC HS [facility] Last Admin: 08/10/18 22:44 Dose: Not Given Insulin Human Regular (Novolin R) 0 unit SC ACHS [facility]; Protocol Last Admin: 08/11/18 07:42 Dose: 6 units Lorazepam (Ativan) 1 mg IM Q8H PRN PRN Reason: Anxiety Last Admin: 08/11/18 07:41 Dose: 1 mg Losartan Potassium (Cozaar) 12.5 mg PO DAILY [facility] Metoclopramide HCl (Reglan) 5 mg IVP Q6 PRN PRN Reason: Nausea/Vomiting Last Admin: 08/11/18 07:59 Dose: 5 mg Ondansetron HCl (Zofran Inj) 4 mg IVP Q6 PRN PRN Reason: Nausea/Vomiting Last Admin: 08/11/18 04:26 Dose: 4 mg Pantoprazole Sodium (Protonix Ec Tab) 40 mg PO DAILY [facility] Quetiapine Fumarate (Seroquel) 50 mg PO DAILY [facility] Quetiapine Fumarate (Seroquel) 50 mg PO HS [facility] Last Admin: 08/10/18 22:38 Dose: 50 mg Sertraline HCl (Zoloft) 25 mg PO DAILY [facility] - Labs Labs: 08/10/18 11:57 08/10/18 11:57 - Additional Findings Additional findings: - Constitutional Appears: Chronically Ill, Exam limited due to minimally interactive patient, only following some commands - Head Exam Head Exam: ATRAUMATIC, NORMOCEPHALIC - Eye Exam Eye Exam: Normal appearance. absent: Conjunctival injection, Scleral icterus - ENT Exam Episodes of clear/white emesis noted, non-bilious non-bloody - Respiratory Exam limited exam due to pt refusing to take full breaths due to abdominal pain CTAB, no wheezes/rales/ronchi appreciated No chest wall tenderness - Cardiovascular Exam Cardiovascular Exam: Tachycardia, REGULAR RHYTHM, +S1, +S2. absent: Bradycardia, Irregular Rhythm, JVD - GI/Abdominal Exam Exam limited due to patient refusing most abdominal exam (due to pain) Normal bowel sounds heard Non-rigid abdomen, not distended, not able to palpate further - Extremities Exam Extremities exam: Positive for: normal capillary refill, normal inspection, pedal pulses present. Negative for: calf tenderness, joint swelling, pedal edema, tenderness - Neurological Exam Awake and alert, following some commands - Psychiatric Exam baseline status, somnolent/flat affect with intermittent anxious/agitated state - Skin Skin Exam: Dry, Intact, Normal Color, Warm Assessment and Plan - Assessment and Plan (Free Text) Assessment: This is a 28yo F with extensive PMH, including poorly controlled IDDM, diabetic gastroparesis, ESRD on HD (MWF), seizure activity, and Munchausens who presented to with complaint of intractable vomiting. Nephro was consulted for continuation of HD. Plan: 1) poorly controlled IDDM 2) diabetic gastroparesis 3) ESRD on HD (MWF) 4) Seizures/Pseudoseizures 5) Munchausen's hx 6) Mild leukocytosis -Underwent HD today, some fluid removed Was going to stop gentle IVF, but will continue overnight due to continued emesis today, will consider stopping tomorrow -Avoid morphine for pain control in ESRD pts given renal metabolites, low-dose diluadid preferable -suspect leukocytosis more likely reactive to stress/emesis/agitation, low suspicion of infection process at this time -BP better controlled today, continue current regimen -Given extensive anxiety/agitation, pain seeking behavior, and self-harming behavior (inducing self-emesis), believe that this patient would benefit greatly from Psych eval and recs Patient reviewed and discussed with attending, Dr. Nieves.
[2018-08-11] MEDS: Pantoprazole 40 mg EC Tab PO SCH (10:12)
[2018-08-11] MEDS: Losartan 12.5 MG TAB PO SCH (10:12)
[2018-08-11] MEDS: (Novolog Mix 70/30) Insulin Aspart/Insulin Aspar 100 units/ml SC SCH ×2 (10:30→22:59)
--- NOTE | 2018-08-11 11:37 | PCM.PSYCH ---
Initial Psychiatric Evaluation - Initial Psychiatric Evaluation Type of Admission: Voluntary Legal Status: Capacity Chief Complaint (in patient's own words): "Tired" History of Present Illness and Precipitating Events: The pt is seen, chart reviewed and case discussed. Consult was requested for her psych sxs. She is well-known from many previous consults She was just discharged from hospital afetr finally stabilizing her conditionbut she says she threw up, had hypoglycemia and then an alleged seizure again. And she is back. She was out only few days. From last admission: She is a 28 y/o female, single, with no child, lives with her mother, unemployed as she lost her job at [employer] in July 2016. She reported some "hypoglycemia" induced seizures, which started 6 years ago. 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 She was upset that people do not believe her. However, even this newswriter witnessed one of them in the past and she would feign a seizure and ask immediately for ativan in a second or two. EEG was "normal" She admitted in the past that she had been stressed b/c of a break up with her GF who later , and b/c of losing her job. She is now more worried and angry about her "pain." She is depressed and is very anxious. 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 She eventually developed ESRD and is now on HD. Ribbon Weaver spoke to her mo too and she said that the pt was somewhat better at home. She also reported that the pt was confused and hallucinating yesterday - likely delirium due to medical issues. Today, she is not confused. Pt also voiced SI - wishing to . No plans or urge now - she is on 1:1 though She fulfills criteria for major depression and generalized anxiety. Feels very anaya and irate too. No drug/alcohol hx No trauma hx except for the abovementioned losses. Past psych hx: Denies. She was never able to attend a fpc program b/c of multiple medical admissions. Family psych hx: Denies Med hx: Cataracts and DM. Current Medications: Active Medications Generic Name Dose Route Start Last Admin Trade Name Freq PRN Reason Stop Dose Admin Carvedilol 6.25 mg 08/10/18 22:00 08/11/18 10:12 Coreg PO Not Given Q12 KLEVIN Clonidine HCl 1 patch 08/17/18 10:00 Catapres-Tts2 0.2 Mg/24 Hr TD QWK KELVIN Dextrose 0 ml 08/10/18 14:56 Dextrose 50% Inj IV STAT PRN Hypoglycemia Protocol Protocol Dextrose 0 gm 08/10/18 14:56 Glutose 15 PO ONCE PRN Hypoglycemia Protocol Protocol Glucagon 0 mg 08/10/18 14:56 Glucagen Diagnostic Kit IM STAT PRN Hypoglycemia Protocol Protocol Heparin Sodium (Porcine) 5,000 units 08/10/18 22:00 08/11/18 10:12 Heparin SC Not Given Q12 KELVIN Heparin Sodium (Porcine) 3,900 units 08/11/18 11:10 Heparin (For Dialysis) IVP 07/23/19 23:00 MWF KELVIN Hydromorphone HCl 0.5 mg 08/11/18 10:27 Dilaudid IVP Q6H PRN Pain, severe (8-10) Hydroxyzine HCl 25 mg 08/10/18 14:01 08/10/18 21:19 Atarax IM 25 mg Q6H PRN Administration Agitation Sodium Chloride 1,000 mls @ 60 mls/hr 08/10/18 15:00 08/11/18 07:58 Sodium Chloride 0.9% IV Not Given .[id number] KELVIN Dextrose 1,000 mls @ 0 mls/hr 08/10/18 14:56 Dextrose 5% In Water 1000 Ml IV .Q0M PRN Hypoglycemia Protocol Protocol Per Protocol Insulin Aspart 20 units 08/11/18 10:00 08/11/18 10:30 Novolog Mix 70/30 (70/30 Units/Ml) SC Not Given DAILY KELVIN Insulin Aspart 10 units 08/10/18 22:00 08/10/18 22:44 Novolog Mix 70/30 (70/30 Units/Ml) SC Not Given HS KELVIN Insulin Human Regular 0 unit 08/10/18 16:30 08/11/18 07:42 Novolin R SC 6 units ACHS KELVIN Administration Protocol Lorazepam 1 mg 08/10/18 13:57 08/11/18 07:41 Ativan IM 1 mg Q8H PRN Administration Anxiety Losartan Potassium 12.5 mg 08/11/18 10:00 08/11/18 10:12 Cozaar PO Not Given DAILY KELVIN Metoclopramide HCl 5 mg 08/10/18 14:30 08/11/18 07:59 Reglan IVP 5 mg Q6 PRN Administration Nausea/Vomiting Ondansetron HCl 4 mg 08/10/18 14:08 08/11/18 04:26 Zofran Inj IVP 4 mg Q6 PRN Administration Nausea/Vomiting Pantoprazole Sodium 40 mg 08/11/18 10:00 08/11/18 10:12 Protonix Ec Tab PO Not Given DAILY KELVIN Quetiapine Fumarate 50 mg 08/11/18 10:00 08/11/18 10:12 Seroquel PO Not Given DAILY KELVIN Quetiapine Fumarate 50 mg 08/10/18 22:00 08/10/18 22:38 Seroquel PO 50 mg HS KELVIN Administration Sertraline HCl 25 mg 08/11/18 10:00 08/11/18 10:13 Zoloft PO Not Given DAILY KELVIN Past Psychiatric History - Past Psychiatric History Previous Treatment History: Intensive Outpatient Pertinent Medical Hx (Current Medical&Sleep Prob, Allergies): Allergies Allergy/AdvReac Type Severity Reaction Status Date / Time No Known Allergies Allergy Verified 08/10/18 11:36 Carvedilol [Coreg] 6.25 mg PO Q12 #60 tab 08/07/18 Insulin Detemir [Levemir] 10 unit SC HS #1 unit 08/07/18 Insulin Detemir [Levemir] 20 units SC DAILY #2 vial 08/07/18 Insulin Human Regular [Novolin R] 5 unit SC ACHS #1 unit 08/07/18 Losartan Potassium 1 tab PO DAILY #30 tablet 08/07/18 Metoclopramide [Reglan] 1 tab PO QID #20 tab 08/07/18 Ondansetron HCl [Zofran] 1 tab PO Q6 PRN #20 tablet 08/07/18 Pantoprazole [Protonix EC Tab] 1 tab PO DAILY #30 ect 08/07/18 QUEtiapine [SEROquel] 50 mg PO TID #90 tab 08/07/18 Sertraline [Zoloft] 50 mg PO DAILY #30 tab 08/07/18 amLODIPine [Norvasc] 1 tab PO DAILY #30 tab 04/20/19 cloNIDine 0.2 mg/24 hr [catapres-TTS2 0.2 mg/24 hr] 1 patch TD QWK #7 patch 08/07/18 hydrOXYzine HCl [Atarax] 1 tab PO HS PRN #7 tab 08/07/18 Review of Systems - Psychiatric Psychiatric: Abnormal Sleep Pattern, Anhedonia, Anxiety, Behavioral Changes, Change in Appetite, Depression, Difficulty Concentrating, Irritability, Mood Swings. absent: Hallucinations, Homicidal Ideation, Paranoia, Suicidal Ideation Mental Status Examination - Personal Presentation Personal Presentation: Looks stated age (unkempt) - Affect Affect: Constricted - Motor Activity Motor Activity: Psychomotor Agitation - Reliability in Providing Information Reliability in Providing Information: Fair - Speech Speech: Organized - Mood Mood: Depressed, Anxious - Formal Thought Process Formal Thought Process: No Impairment - Cognitive Functions Orientation: Person, Place, Time Sensorium: Drowsy Attention/Concentration: Easily distracted Abstract Thinking: Mcandrews Estimate of Intelligence: Average Judgement: Intact, as evidence by: Insight regarding need for hospitalization Memory: Recent intact, as evidence by: Ability to recall events of the day, Remote impaired as evidenced by: Inability to recall sig life events - Risk Risk: Diminished functioning - Strength & Assets Inventory Strength & Assets Inventory: Family support, Cooperative - Limitations Limitations: Other DSM 5 DX - DSM 5 DSM 5 Diagnosis: Major depressive d/o - recurrent, severe without psychosis 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 She is overusing ativan otherwise. Ativan will be d/c'ed Limit setting, support, psychoeducation SW can contact if she can be admitted to [facility] due to her severe personality disorder.
--- NOTE | 2018-08-11 12:56 | CP.PCM.CON ---
History of Present Illness - History of Present Illness History of Present Illness: CC: vomiting HPI: patient known to me from recent admission. Returns with recurrent vomiting and abdominal pain. Had CT which showed fecal stasis, otherwise normal GI findings. Severe psychiatric illness, opiate dependence, Diabetes, Renal failure, on dialysis. Sitting in bed and continually retching clear fluid and drinking water. Mother is very devoted and constantly at bedside. Discussed at length with patient's mother. Past Patient History - Infectious Disease Hx of Infectious Diseases: None - Past Medical History & Family History Past Medical History?: Yes - Past Social History Smoking Status: Never Smoked - CARDIAC Hx Hypertension: Yes - PULMONARY Hx Bronchitis: Yes - NEUROLOGICAL Hx Seizures: Yes (Pseudo seizures?) - HEENT Hx HEENT Problems: Yes Hx Cataracts: Yes - RENAL Hx Chronic Kidney Disease: Yes - ENDOCRINE/METABOLIC Hx Endocrine Disorders: Yes Hx Diabetes Mellitus Type 2: Yes (on insulin pump) - HEMATOLOGICAL/ONCOLOGICAL Hx Anemia: Yes Hx Human Immunodeficiency Virus (HIV): No - INTEGUMENTARY Hx Dermatological Problems: No - MUSCULOSKELETAL/RHEUMATOLOGICAL Hx Musculoskeletal Disorders: Yes Hx Falls: Yes - GASTROINTESTINAL Hx Gastrointestinal Disorders: Yes (SEE COMMENT) Other/Comment: gastroparesis - GENITOURINARY/GYNECOLOGICAL Hx Genitourinary Disorders: No - PSYCHIATRIC Hx Anxiety: Yes Hx Depression: Yes Hx Substance Use: No - SURGICAL HISTORY Hx Appendectomy: Yes - ANESTHESIA Hx Anesthesia: Yes Hx Anesthesia Reactions: No Hx Malignant Hyperthermia: No Meds Allergies/Adverse Reactions: Allergies Allergy/AdvReac Type Severity Reaction Status Date / Time No Known Allergies Allergy Verified 08/10/18 11:36 - Medications Medications: Current Medications Carvedilol (Coreg) 6.25 mg PO Q12 [facility] Last Admin: 08/11/18 10:12 Dose: Not Given Clonazepam (Klonopin) 0.5 mg PO BID [facility] Clonidine HCl (Catapres-Tts2 0.2 Mg/24 Hr) 1 patch TD QWK [facility] Dextrose (Dextrose 50% Inj) 0 ml IV STAT PRN; Protocol PRN Reason: Hypoglycemia Protocol Dextrose (Glutose 15) 0 gm PO ONCE PRN; Protocol PRN Reason: Hypoglycemia Protocol Glucagon (Glucagen Diagnostic Kit) 0 mg IM STAT PRN; Protocol PRN Reason: Hypoglycemia Protocol Heparin Sodium (Porcine) (Heparin) 5,000 units SC Q12 [facility] Last Admin: 08/11/18 10:12 Dose: Not Given Heparin Sodium (Porcine) (Heparin (For Dialysis)) 3,900 units IVP MWF [facility] Stop: 07/23/19 23:00 Hydromorphone HCl (Dilaudid) 0.5 mg IVP Q6H PRN PRN Reason: Pain, severe (8-10) Hydroxyzine HCl (Atarax) 25 mg IM Q6H PRN PRN Reason: Agitation Last Admin: 08/10/18 21:19 Dose: 25 mg Sodium Chloride (Sodium Chloride 0.9%) 1,000 mls @ 60 mls/hr IV .[id number] [facility] Last Admin: 08/11/18 07:58 Dose: Not Given Dextrose (Dextrose 5% In Water 1000 Ml) 1,000 mls @ 0 mls/hr IV .Q0M PRN; Protocol PRN Reason: Hypoglycemia Protocol Insulin Aspart (Novolog Mix 70/30 (70/30 Units/Ml)) 20 units SC DAILY [facility] Last Admin: 08/11/18 10:30 Dose: Not Given Insulin Aspart (Novolog Mix 70/30 (70/30 Units/Ml)) 10 units SC [facility] Last Admin: 08/10/18 22:44 Dose: Not Given Insulin Human Regular (Novolin R) 0 unit SC [facility]; Protocol Last Admin: 08/11/18 12:17 Dose: Not Given Losartan Potassium (Cozaar) 12.5 mg PO DAILY [facility] Last Admin: 08/11/18 10:12 Dose: Not Given Metoclopramide HCl (Reglan) 5 mg IVP Q6 PRN PRN Reason: Nausea/Vomiting Last Admin: 08/11/18 07:59 Dose: 5 mg Ondansetron HCl (Zofran Inj) 4 mg IVP Q6 PRN PRN Reason: Nausea/Vomiting Last Admin: 08/11/18 04:26 Dose: 4 mg Pantoprazole Sodium (Protonix Ec Tab) 40 mg PO DAILY [facility] Last Admin: 08/11/18 10:12 Dose: Not Given Quetiapine Fumarate (Seroquel) 50 mg PO DAILY [facility] Last Admin: 08/11/18 10:12 Dose: Not Given Quetiapine Fumarate (Seroquel) 50 mg PO [facility] Last Admin: 08/10/18 22:38 Dose: 50 mg Sertraline HCl (Zoloft) 25 mg PO DAILY [facility] Last Admin: 08/11/18 10:13 Dose: Not Given Physical Exam - Constitutional Appears: In Acute Distress, Chronically Ill - Head Exam Head Exam: NORMOCEPHALIC - Respiratory Exam Respiratory Exam: NORMAL BREATHING PATTERN - Cardiovascular Exam Cardiovascular Exam: REGULAR RHYTHM - GI/Abdominal Exam GI & Abdominal Exam: Soft, Tenderness. absent: Distended Results - Vital Signs Recent Vital Signs: Last Vital Signs Temp 97.6 F 08/11/18 12:30 Pulse 102 H 08/11/18 12:30 Resp 17 08/11/18 12:30 BP 124/83 08/11/18 12:30 Pulse Ox 100 08/11/18 12:30 - Labs Result Diagrams: 08/10/18 11:57 08/10/18 11:57 Labs: Laboratory Results - last 24 hr 08/10/18 08/10/18 08/10/18 11:36 11:43 16:52 APTT pO2 197 H VBG pH 7.55 H VBG pCO2 29 L VBG HCO3 28.0 VBG Total CO2 26.3 VBG O2 Sat (Calc) 97.9 H VBG Base Excess 3.8 H VBG Potassium 3.7 Sodium 137.0 Chloride 102.0 Glucose 204 H Lactate 1.6 POC Glucose (mg/dL) 196 H 307 H Venous Blood Potassium 3.7 08/10/18 08/11/18 08/11/18 21:11 05:58 09:26 APTT 28.0 pO2 VBG pH VBG pCO2 VBG HCO3 VBG Total CO2 VBG O2 Sat (Calc) VBG Base Excess VBG Potassium Sodium Chloride Glucose Lactate POC Glucose (mg/dL) 112 H 319 H Venous Blood Potassium 08/11/18 12:07 APTT pO2 VBG pH VBG pCO2 VBG HCO3 VBG Total CO2 VBG O2 Sat (Calc) VBG Base Excess VBG Potassium Sodium Chloride Glucose Lactate POC Glucose (mg/dL) 151 H Venous Blood Potassium Assessment & Plan (1) Abdominal pain Assessment and Plan: Multifactorial complicated situation. Abdominal pain and vomiting are likely from Psychiatric illness, opiate abuse/dependence rather than true gastro paresis. This was discussed with the patient's mother. The underlying Psych issues need to be treated. I can try Erythromycin in addition to her technician terminal and repeater Reglan (which I do not recommend due to side effect profile), but it is unlikely any medical treatment will help unless psychiatric issues are appropriately treated. Status: Acute
[2018-08-11] MEDS: hydrOXYzine HCl 25 mg/ml Inj IM PRN (15:45)
[2018-08-12] MEDS: HYDROmorphone 0.5 mg/0.5 ml ISec IVP PRN ×4 (04:25→22:43)
--- NOTE | 2018-08-12 07:13 | CP.PCM.PCO ---
Addendum Addendum: 08/12/18 07:12 Rapid response was called for pseudoseizure. Troponin stat ordered Zofran 4mg IV x1 ordered Patient remained alert, awake, demanding susannah mana. Rapid was later cancelled. Ruddy Larkin, PGY1
[2018-08-12] MEDS: (Novolin R) Insulin Human Regular 100 units/ml vial SC SCH ×4 (07:48→21:45)
[2018-08-12] MEDS: hydrOXYzine HCl 25 mg/ml Inj IM PRN (07:49)
--- NOTE | 2018-08-12 08:22 | CP.PCM.PN ---
Subjective - Date & Time of Evaluation Date of Evaluation: 08/12/18 Time of Evaluation: 08: - Subjective Subjective: f/u abd pain, vomiting. Pt seen with RN Agata Denies fever, chills, Cough, hematuria, hemoptysis., myalgia, diarrhea, RB Objective - Vital Signs/Intake and Output Vital Signs (last 24 hours): Temp Pulse Resp BP Pulse Ox 98.2 F 72 20 136/84 98 08/11/18 23:05 08/12/18 03:09 08/11/18 23:05 08/11/18 23:05 08/11/18 23:25 - Medications Medications: Current Medications Carvedilol (Coreg) 6.25 mg PO Q12 [facility] Last Admin: 08/11/18 22:59 Dose: Not Given Clonazepam (Klonopin) 0.5 mg PO BID [facility] Last Admin: 08/11/18 18:00 Dose: 0.5 mg Clonidine HCl (Catapres-Tts2 0.2 Mg/24 Hr) 1 patch TD QWK [facility] Dextrose (Dextrose 50% Inj) 0 ml IV STAT PRN; Protocol PRN Reason: Hypoglycemia Protocol Dextrose (Glutose 15) 0 gm PO ONCE PRN; Protocol PRN Reason: Hypoglycemia Protocol Glucagon (Glucagen Diagnostic Kit) 0 mg IM STAT PRN; Protocol PRN Reason: Hypoglycemia Protocol Heparin Sodium (Porcine) (Heparin) 5,000 units SC Q12 [facility] Last Admin: 08/11/18 22:59 Dose: Not Given Heparin Sodium (Porcine) (Heparin (For Dialysis)) 3,900 units IVP MWF [facility] Stop: 07/23/19 23:00 Hydromorphone HCl (Dilaudid) 0.5 mg IVP Q6H PRN PRN Reason: Pain, severe (8-10) Last Admin: 08/12/18 04:25 Dose: 0.5 mg Hydroxyzine HCl (Atarax) 25 mg IM Q6H PRN PRN Reason: Agitation Last Admin: 08/12/18 07:49 Dose: 25 mg Dextrose (Dextrose 5% In Water 1000 Ml) 1,000 mls @ 0 mls/hr IV .Q0M PRN; Protocol PRN Reason: Hypoglycemia Protocol Sodium Chloride (Sodium Chloride 0.9%) 1,000 mls @ 60 mls/hr IV .[id number] [facility] Last Admin: 08/11/18 15:55 Dose: 60 mls/hr Insulin Aspart (Novolog Mix 70/30 (70/30 Units/Ml)) 20 units SC DAILY [facility] Last Admin: 08/11/18 10:30 Dose: Not Given Insulin Aspart (Novolog Mix 70/30 (70/30 Units/Ml)) 10 units SC [facility] Last Admin: 08/11/18 22:59 Dose: Not Given Insulin Human Regular (Novolin R) 0 unit SC [facility]; Protocol Last Admin: 08/12/18 07:48 Dose: 10 units Losartan Potassium (Cozaar) 12.5 mg PO DAILY [facility] Last Admin: 08/11/18 10:12 Dose: Not Given Metoclopramide HCl (Reglan) 5 mg IVP Q6 PRN PRN Reason: Nausea/Vomiting Last Admin: 08/11/18 15:48 Dose: 5 mg Ondansetron HCl (Zofran Inj) 4 mg IVP Q6 PRN PRN Reason: Nausea/Vomiting Last Admin: 08/12/18 04:25 Dose: 4 mg Pantoprazole Sodium (Protonix Ec Tab) 40 mg PO DAILY [facility] Last Admin: 08/11/18 10:12 Dose: Not Given Quetiapine Fumarate (Seroquel) 50 mg PO DAILY [facility] Last Admin: 08/11/18 10:12 Dose: Not Given Quetiapine Fumarate (Seroquel) 50 mg PO [facility] Last Admin: 08/11/18 23:00 Dose: Not Given Sertraline HCl (Zoloft) 25 mg PO DAILY [facility] Last Admin: 08/11/18 10:13 Dose: Not Given - Labs Labs: 08/10/18 11:57 08/10/18 11:57 APTT 28.0 SECONDS (21-34) 08/11/18 09:26 - Constitutional Appears: Non-toxic - Respiratory Exam Respiratory Exam: Clear to Ausculation Bilateral - Cardiovascular Exam Cardiovascular Exam: RRR - GI/Abdominal Exam GI & Abdominal Exam: Soft, Normal Bowel Sounds. absent: Distended, Tenderness, Mass, Rebound - Neurological Exam Neurological Exam: Alert, Awake Assessment and Plan (1) Abdominal pain Assessment & Plan: symptoms are likely psychiatric related.. Pt seems to be drug seeking. MUlt GI work ups have been done. Rec- PPI REglan has not helped in past, and has risks of tardive dyskinesia Status: Acute (2) Gastritis Status: Acute (3) History of anemia Status: Acute (4) History of diabetes mellitus Status: Acute (5) History of hypertension Status: Acute (6) Nausea & vomiting Status: Acute (7) CRF (chronic renal failure) Status: Chronic
[2018-08-12] MEDS: (Novolog Mix 70/30) Insulin Aspart/Insulin Aspar 100 units/ml SC SCH ×2 (10:27→21:57)
[2018-08-12] MEDS: Pantoprazole 40 mg EC Tab PO SCH (10:42)
[2018-08-12] MEDS: Losartan 12.5 MG TAB PO SCH (10:43)
[2018-08-12] MEDS ORDERED: HYDROmorphone 0.5 mg/0.5 ml ISec IVP STA (11:05)
--- NOTE | 2018-08-12 11:10 | CP.PCM.PN ---
Subjective - Date & Time of Evaluation Date of Evaluation: 08/12/18 Time of Evaluation: 07:45 - Subjective Subjective: Nephro Progress Note for Dr. Nieves Service Oracio Nash DO, PGY-3 IM Patient seen and examined at bedside. Another episode of pseudoseizure this AM while retching, but rapid response canceled as patient immediately awake and alert when medical team arrived, requesting susannah mana, and then vomiting when not getting it. Crying, screaming, asking for more pain and/or anxiety meds, but denied by primary team. After not receiving any meds and left alone by primary team, sitting in room quietly. Refusing AM blood work, refusing to take deep breaths for exam. Objective - Vital Signs/Intake and Output Vital Signs (last 24 hours): Temp Pulse Resp BP Pulse Ox 98.2 F 72 20 136/84 98 08/11/18 23:05 08/12/18 03:09 08/11/18 23:05 08/11/18 23:05 08/11/18 23:25 - Medications Medications: Current Medications Carvedilol (Coreg) 6.25 mg PO Q12 [facility] Last Admin: 08/12/18 10:43 Dose: Not Given Clonazepam (Klonopin) 0.5 mg PO BID [facility] Last Admin: 08/11/18 18:00 Dose: 0.5 mg Clonidine HCl (Catapres-Tts2 0.2 Mg/24 Hr) 1 patch TD QWK [facility] Dextrose (Dextrose 50% Inj) 0 ml IV STAT PRN; Protocol PRN Reason: Hypoglycemia Protocol Dextrose (Glutose 15) 0 gm PO ONCE PRN; Protocol PRN Reason: Hypoglycemia Protocol Glucagon (Glucagen Diagnostic Kit) 0 mg IM STAT PRN; Protocol PRN Reason: Hypoglycemia Protocol Heparin Sodium (Porcine) (Heparin) 5,000 units SC Q12 [facility] Last Admin: 08/12/18 10:43 Dose: Not Given Heparin Sodium (Porcine) (Heparin (For Dialysis)) 3,900 units IVP F [facility] Stop: 07/23/19 23:00 Hydromorphone HCl (Dilaudid) 0.5 mg IVP Q6H PRN PRN Reason: Pain, severe (8-10) Last Admin: 08/12/18 10:22 Dose: 0.5 mg Hydromorphone HCl (Dilaudid) 0.5 mg IVP Q6H [facility] Stop: 08/12/18 11:06 Hydroxyzine HCl (Atarax) 25 mg IM Q6H PRN PRN Reason: Agitation Last Admin: 08/12/18 07:49 Dose: 25 mg Dextrose (Dextrose 5% In Water 1000 Ml) 1,000 mls @ 0 mls/hr IV .Q0M PRN; Protocol PRN Reason: Hypoglycemia Protocol Sodium Chloride (Sodium Chloride 0.9%) 1,000 mls @ 60 mls/hr IV .[id number] [facility] Last Admin: 08/11/18 15:55 Dose: 60 mls/hr Insulin Aspart (Novolog Mix 70/30 (70/30 Units/Ml)) 20 units SC DAILY [facility] Last Admin: 08/12/18 10:27 Dose: 20 u Insulin Aspart (Novolog Mix 70/30 (70/30 Units/Ml)) 10 units SC [facility] Last Admin: 08/11/18 22:59 Dose: Not Given Insulin Human Regular (Novolin R) 0 unit SC [facility]; Protocol Last Admin: 08/12/18 07:48 Dose: 10 units Lorazepam (Ativan) 2 mg IVP ONCE ONE Stop: 08/12/18 11:01 Losartan Potassium (Cozaar) 12.5 mg PO DAILY [facility] Last Admin: 08/12/18 10:43 Dose: Not Given Metoclopramide HCl (Reglan) 5 mg IVP Q6 PRN PRN Reason: Nausea/Vomiting Last Admin: 08/11/18 15:48 Dose: 5 mg Ondansetron HCl (Zofran Inj) 4 mg IVP Q6 PRN PRN Reason: Nausea/Vomiting Last Admin: 08/12/18 04:25 Dose: 4 mg Pantoprazole Sodium (Protonix Ec Tab) 40 mg PO DAILY [facility] Last Admin: 08/12/18 10:42 Dose: Not Given Quetiapine Fumarate (Seroquel) 50 mg PO DAILY [facility] Last Admin: 08/12/18 10:43 Dose: Not Given Quetiapine Fumarate (Seroquel) 50 mg PO HS [facility] Last Admin: 08/11/18 23:00 Dose: Not Given Sertraline HCl (Zoloft) 25 mg PO DAILY [facility] Last Admin: 08/12/18 10:43 Dose: Not Given - Labs Labs: 08/10/18 11:57 08/10/18 11:57 APTT 28.0 SECONDS (21-34) 08/11/18 09:26 - Additional Findings Additional findings: - Constitutional Appears: Chronically Ill, Exam limited due to minimally interactive patient, only following some commands - Head Exam Head Exam: ATRAUMATIC, NORMOCEPHALIC - Eye Exam Eye Exam: Normal appearance. absent: Conjunctival injection, Scleral icterus - ENT Exam Moist mucous membranes - Respiratory Exam limited exam due to pt refusing to take full breaths CTAB, no wheezes/rales/ronchi appreciated No chest wall tenderness - Cardiovascular Exam Cardiovascular Exam: Tachycardia, REGULAR RHYTHM, +S1, +S2. absent: Bradycardia, Irregular Rhythm, JVD - GI/Abdominal Exam Exam limited due to patient refusing abdominal exam - Extremities Exam Extremities exam: Positive for: normal capillary refill, normal inspection, pedal pulses present. Negative for: calf tenderness, joint swelling, pedal edema, tenderness - Neurological Exam Awake and alert, following some commands - Psychiatric Exam previously anxious/agitated/screaming, later flat affect/mood - Skin Skin Exam: Dry, Intact, Normal Color, Warm Assessment and Plan - Assessment and Plan (Free Text) Assessment: This is a 28yo F with extensive PMH, including poorly controlled IDDM, diabetic gastroparesis, ESRD on HD (MWF), seizure activity, and Munchausens who presented to with complaint of intractable vomiting. Nephro was consulted for cont inuation of HD. Plan: 1) poorly controlled IDDM 2) diabetic gastroparesis 3) ESRD on HD (MWF) 4) Seizures/Pseudoseizures 5) Conversion disorder +/- Factitious disorder 6) Mild leukocytosis -Pending HD tomorrow -Avoid morphine for pain control in ESRD pts given renal metabolites, low-dose diluadid preferable -suspect leukocytosis on admit more likely reactive to stress/emesis/agitation, unable to follow up due to patient refusing labs, will attempt to obtain with next HD session -Continue current BP control regimen -Given extensive anxiety/agitation, pain seeking behavior, and self-harming behavior (inducing self-emesis), believe that this patient would benefit greatly from Psych eval and recs Patient reviewed and discussed with attending, Dr. Nieves.
--- NOTE | 2018-08-12 11:18 | PCM.PYCHPN ---
Psychiatric Progress Note - Psychiatric Progress Note Patient seen today, length of contact: 18 min Patient Chief Complaint: "I have rosemary much pain" Problems Identified/Issues Discussed: The pt is seen, chart reviewed, case discussed with staff. The pt is compliant with medications and reports no side-effects. However, she reports no benefit yet and is mostly focused on getting pain meds and she also threw up again. She has been screaming constantly and wouldn't cooperate for a full assessment. She is told that I would increase some meds. Medication Change: Yes (increase all 3 psych meds) Medical Record Reviewed: Yes Mental Status Examination - Cognitive Function Orientation: Person, Place, Time Memory: Impaired Attention: Poor Concentration: Poor Association: Loose Fund of Knowledge: WNL - Mood Mood: Depressed, Anxious - Affect Affect: Other (labile) - Speech Speech: Loud - Formal Thought Process Formal Thought Process: No Impairment - Suicidal Ideation Suicidal Ideation: No - Homicidal Ideation Homicidal Ideation: No Goal/Treatment Plan - Goal/Treatment Plan Need for Continued Stay: Severe depression anxiety, Discharge may exacerbated symptoms, Severe functional impairment, Other (medical) Progress Toward Problem(s) and Goals/Treatment Plan: Zoloft for depression and anxiety - dose to be increased to 100 mg range slowly. Tomorrow is 50 mg Seroquel for mood swings, irritability: dose increase dto 50 mg TID and 100 mg HS PRN Atarax and inderal for anxiety Klonopin for anxiety while she is here in the hospital. She is overusing ativan otherwise. Ativan will be d/c'ed Limit setting, support, psychoeducation SW can contact if she can be admitted to [facility] due to her severe personality disorder.
--- NOTE | 2018-08-12 14:15 | CP.PCM.PN ---
Subjective - Date & Time of Evaluation Date of Evaluation: 08/12/18 Time of Evaluation: 14:11 - Subjective Subjective: Medicine Progress Note for Dr. King's service S/E at bedside Reports abdominal pain Crying nonstop and being very uncooperative at bedside. [employer] was called and cancelled Patient is very agitated and family at bedside. Huge discussion was had about management Limited ROS Objective - Vital Signs/Intake and Output Vital Signs (last 24 hours): Temp Pulse Resp BP Pulse Ox 98.2 F 72 20 136/84 98 08/11/18 23:05 08/12/18 03:09 08/11/18 23:05 08/11/18 23:05 08/11/18 23:25 - Medications Medications: Current Medications Carvedilol (Coreg) 6.25 mg PO Q12 [facility] Last Admin: 08/12/18 10:43 Dose: Not Given Clonazepam (Klonopin) 0.5 mg PO TID [facility] Last Admin: 08/12/18 13:18 Dose: Not Given Clonidine HCl (Catapres-Tts2 0.2 Mg/24 Hr) 1 patch TD QWK [facility] Dextrose (Dextrose 50% Inj) 0 ml IV STAT PRN; Protocol PRN Reason: Hypoglycemia Protocol Dextrose (Glutose 15) 0 gm PO ONCE PRN; Protocol PRN Reason: Hypoglycemia Protocol Glucagon (Glucagen Diagnostic Kit) 0 mg IM STAT PRN; Protocol PRN Reason: Hypoglycemia Protocol Heparin Sodium (Porcine) (Heparin) 5,000 units SC Q12 [facility] Last Admin: 08/12/18 10:43 Dose: Not Given Heparin Sodium (Porcine) (Heparin (For Dialysis)) 3,900 units IVP [facility] Stop: 07/23/19 23:00 Hydromorphone HCl (Dilaudid) 0.5 mg IVP Q6H PRN PRN Reason: Pain, severe (8-10) Last Admin: 08/12/18 10:22 Dose: 0.5 mg Hydroxyzine HCl (Atarax) 25 mg IM Q6H PRN PRN Reason: Agitation Last Admin: 08/12/18 07:49 Dose: 25 mg Dextrose (Dextrose 5% In Water 1000 Ml) 1,000 mls @ 0 mls/hr IV .Q0M PRN; Protocol PRN Reason: Hypoglycemia Protocol Sodium Chloride (Sodium Chloride 0.9%) 1,000 mls @ 60 mls/hr IV .[id number] [facility] Last Admin: 08/11/18 15:55 Dose: 60 mls/hr Insulin Aspart (Novolog Mix 70/30 (70/30 Units/Ml)) 20 units SC DAILY [facility] Last Admin: 08/12/18 10:27 Dose: 20 u Insulin Aspart (Novolog Mix 70/30 (70/30 Units/Ml)) 10 units SC [facility] Last Admin: 08/11/18 22:59 Dose: Not Given Insulin Human Regular (Novolin R) 0 unit SC [facility]; Protocol Last Admin: 08/12/18 12:15 Dose: 6 units Losartan Potassium (Cozaar) 12.5 mg PO DAILY [facility] Last Admin: 08/12/18 10:43 Dose: Not Given Metoclopramide HCl (Reglan) 5 mg IVP Q6 PRN PRN Reason: Nausea/Vomiting Last Admin: 08/11/18 15:48 Dose: 5 mg Ondansetron HCl (Zofran Inj) 4 mg IVP Q6 PRN PRN Reason: Nausea/Vomiting Last Admin: 08/12/18 04:25 Dose: 4 mg Pantoprazole Sodium (Protonix Ec Tab) 40 mg PO DAILY [facility] Last Admin: 08/12/18 10:42 Dose: Not Given Quetiapine Fumarate (Seroquel) 100 mg PO [facility] Quetiapine Fumarate (Seroquel) 50 mg PO TID [facility] Last Admin: 08/12/18 13:18 Dose: Not Given Sertraline HCl (Zoloft) 50 mg PO DAILY [facility] - Labs Labs: 08/10/18 11:57 08/10/18 11:57 APTT 28.0 SECONDS (21-34) 08/11/18 09:26 - Constitutional Appears: Unkempt, Agitated, Chronically Ill - Head Exam Head Exam: NORMAL INSPECTION, NORMOCEPHALIC - Eye Exam Eye Exam: EOMI, Normal appearance. absent: Scleral icterus - ENT Exam ENT Exam: Mucous Membranes Dry - Respiratory Exam Respiratory Exam: Clear to Ausculation Bilateral, NORMAL BREATHING PATTERN - Cardiovascular Exam Cardiovascular Exam: REGULAR RHYTHM, +S1, +S2 - GI/Abdominal Exam GI & Abdominal Exam: Soft, Normal Bowel Sounds - Extremities Exam Extremities Exam: Normal Inspection - Back Exam Back Exam: NORMAL INSPECTION - Neurological Exam Neurological Exam: Alert, Awake, Oriented x3 - Psychiatric Exam Psychiatric exam: Normal Affect, Normal Mood - Skin Skin Exam: Dry, Intact, Normal Color Additional comments: multiple skin discolorations on face, chronic in nature, no signs of active infection Assessment and Plan - Assessment and Plan (Free Text) Assessment: Intractable vomiting, abdominal pain Likely secondary psychogenic; multiple hospitalizations for similar episodes Reglan 5mg Q6 PRN zofran 4mg Q6H PRN Dilaudid 0.5 mg Q8H Protonix 40 mg Carb consistent liquid diet NS @ 60 mls/hr Anxiety,Major depression disorder, pseudoseizure Psychiatry consulted, Dr. Mckeon help appreciated zoloft 50 mg Po daily seroquel 50 mg tid and 100 mg HS Clonpin 0.5mg po tid Atarax 25mg Q6 PRN Yumi Monitor Diabetes Last Hgb A1c 07/05/18: 6.1 Novolog 70/30 20 units Novolog 70/30 10 units HS ISS Hypoglycemia protocol Accuchecks ACHS ESRD on HD (MWF) Nephrology consulted, Dr. Nieves help appreciated HD MWF Hypertension Clonidine 0.2 TD weekly Losartan 25 mg PO daily Coreg 6.25 mg PO BID PPx DVT: Heparin GI: Protonix Dispo: for gastric emptying study to r.o gastroparesis Case discussed with Dr. King
[2018-08-12] MEDS ORDERED: Labetalol 5mg/ml (4ml) IVP ONE (16:00)
[2018-08-13] MEDS: HYDROmorphone 0.5 mg/0.5 ml ISec IVP PRN (04:36)
--- NOTE | 2018-08-13 07:14 | CP.PCM.PN ---
Subjective - Date & Time of Evaluation Date of Evaluation: 08/13/18 Time of Evaluation: 07:14 - Subjective Subjective: PGY1 Medicine Progress Note for Dr. King Patient seen and evaluated at bedside this morning. Patient refusing to stay NPO for nuclear scan. Patient refusing nuclear scan at this time. Patient is requesting juice, and complains that she is nauseous. Patient is screaming and being uncooperative at bedside. Patient agitated. Limited ROS due to lack of Patient cooperation Objective - Vital Signs/Intake and Output Vital Signs (last 24 hours): Temp Pulse Resp BP Pulse Ox 97.9 F 91 H 20 176/106 H 95 08/13/18 04:34 08/13/18 04:34 08/13/18 04:34 08/13/18 04:34 08/13/18 04:34 - Medications Medications: Current Medications Carvedilol (Coreg) 6.25 mg PO Q12 [facility] Last Admin: 08/12/18 22:47 Dose: Not Given Clonazepam (Klonopin) 0.5 mg PO TID [facility] Last Admin: 08/12/18 18:45 Dose: Not Given Clonidine HCl (Catapres-Tts2 0.2 Mg/24 Hr) 1 patch TD QWK [facility] Dextrose (Dextrose 50% Inj) 0 ml IV STAT PRN; Protocol PRN Reason: Hypoglycemia Protocol Dextrose (Glutose 15) 0 gm PO ONCE PRN; Protocol PRN Reason: Hypoglycemia Protocol Glucagon (Glucagen Diagnostic Kit) 0 mg IM STAT PRN; Protocol PRN Reason: Hypoglycemia Protocol Heparin Sodium (Porcine) (Heparin) 5,000 units SC Q12 [facility] Last Admin: 08/12/18 22:47 Dose: Not Given Heparin Sodium (Porcine) (Heparin (For Dialysis)) 3,900 units IVP F [facility] Stop: 07/23/19 23:00 Hydromorphone HCl (Dilaudid) 0.5 mg IVP Q6H PRN PRN Reason: Pain, severe (8-10) Last Admin: 08/13/18 04:36 Dose: 0.5 mg Hydroxyzine HCl (Atarax) 25 mg IM Q6H PRN PRN Reason: Agitation Last Admin: 08/12/18 07:49 Dose: 25 mg Dextrose (Dextrose 5% In Water 1000 Ml) 1,000 mls @ 0 mls/hr IV .Q0M PRN; Protocol PRN Reason: Hypoglycemia Protocol Sodium Chloride (Sodium Chloride 0.9%) 1,000 mls @ 60 mls/hr IV .[id number] [facility] Last Admin: 08/11/18 15:55 Dose: 60 mls/hr Insulin Aspart (Novolog Mix 70/30 (70/30 Units/Ml)) 20 units SC DAILY [facility] Last Admin: 08/12/18 10:27 Dose: 20 u Insulin Aspart (Novolog Mix 70/30 (70/30 Units/Ml)) 10 units SC [facility] Last Admin: 08/12/18 21:57 Dose: Not Given Insulin Human Regular (Novolin R) 0 unit SC A[facility]; Protocol Last Admin: 08/12/18 21:45 Dose: Not Given Losartan Potassium (Cozaar) 12.5 mg PO DAILY [facility] Last Admin: 08/12/18 10:43 Dose: Not Given Metoclopramide HCl (Reglan) 5 mg IVP Q6 PRN PRN Reason: Nausea/Vomiting Last Admin: 08/13/18 03:29 Dose: 5 mg Ondansetron HCl (Zofran Inj) 4 mg IVP Q6 PRN PRN Reason: Nausea/Vomiting Last Admin: 08/12/18 22:43 Dose: 4 mg Pantoprazole Sodium (Protonix Ec Tab) 40 mg PO DAILY [facility] Last Admin: 08/12/18 10:42 Dose: Not Given Paricalcitol (Zemplar) 4 mcg IV MWF [facility] Quetiapine Fumarate (Seroquel) 100 mg PO [facility] Last Admin: 08/12/18 22:47 Dose: Not Given Quetiapine Fumarate (Seroquel) 50 mg PO TID [facility] Last Admin: 08/12/18 18:45 Dose: Not Given Sertraline HCl (Zoloft) 50 mg PO DAILY [facility] - Labs Labs: 08/10/18 11:57 08/10/18 11:57 APTT 28.0 SECONDS (21-34) 08/11/18 09:26 - Additional Findings Additional findings: - Constitutional Appears: Unkempt, Agitated, Chronically Ill - Head Exam Head Exam: NORMAL INSPECTION, NORMOCEPHALIC - Eye Exam Eye Exam: EOMI, Normal appearance. absent: Scleral icterus - ENT Exam ENT Exam: Mucous Membranes Dry - Respiratory Exam Respiratory Exam: Clear to Ausculation Bilateral, NORMAL BREATHING PATTERN - Cardiovascular Exam Cardiovascular Exam: REGULAR RHYTHM, +S1, +S2 - GI/Abdominal Exam GI & Abdominal Exam: Soft, Normal Bowel Sounds - Extremities Exam Extremities Exam: Normal Inspection - Back Exam Back Exam: NORMAL INSPECTION - Neurological Exam Neurological Exam: Alert, Awake, Oriented x3 - Psychiatric Exam Psychiatric exam: Normal Affect, Normal Mood - Skin Skin Exam: Dry, Intact, Normal Color Additional comments: multiple skin discolorations on face, chronic in nature, no signs of active infection Assessment and Plan - Assessment and Plan (Free Text) Assessment: Intractable vomiting, abdominal pain possibly due to gastroparesis - versus psychogenic; multiple hospitalizations for similar episodes - Continue Reglan 5mg Q6 PRN - Continue zofran 4mg Q6H PRN - STOP: Dilaudid 0.5 mg Q8H; as this is contributing to abdominal pain, nausea, vomiting - Continue Protonix 40 mg - Liquid Diet, as Patient refusing the nuclear scan at this time - NS @ 60 mls/hr Anxiety,Major depression disorder, pseudoseizure - Psychiatry consulted, Dr. Mckeon; recommendations appreciated - Zoloft 50 mg Po daily - seroquel 50 mg tid and 100 mg HS - Clonpin 0.5mg po tid - Atarax 25mg Q6 PRN - Yumi Monitor Diabetes Mellitus Type 2 - Last Hgb A1c 07/05/18: 6.1 - Continue Novolog 70/30 20 units - Continue Novolog 70/30 10 units HS - ISS - Hypoglycemia protocol - Accuchecks ACHS ESRD on HD (MWF) - Nephrology consulted, Dr. Nieves; recommendations appreciated - HD MWF Hypertension - Clonidine 0.2 TD weekly - Losartan 25 mg PO daily - Coreg 6.25 mg PO BID PPx - DVT: Heparin - GI: Protonix Discussed with Dr. Christine Schaeffer PGY1
[2018-08-13] MEDS: (Novolin R) Insulin Human Regular 100 units/ml vial SC SCH ×4 (07:30→22:01)
[2018-08-13] MEDS: hydrOXYzine HCl 25 mg/ml Inj IM PRN ×2 (08:22→14:52)
[2018-08-13] MEDS: Losartan 12.5 MG TAB PO SCH (10:15)
[2018-08-13] MEDS: Pantoprazole 40 mg EC Tab PO SCH (10:35)
--- NOTE | 2018-08-13 10:37 | CP.PCM.PN ---
<Oracio Nash - Last Filed: 08/13/18 13:30> Subjective - Date & Time of Evaluation Date of Evaluation: 08/13/18 Time of Evaluation: 07:30 - Subjective Subjective: Nephro Progress Note for Dr. Nieves Service Oracio Nash DO, PGY-3 IM Patient seen and examined at bedside. Overnight, patient informed NPO for pending gastric emptying test, but later continued to request juice/ice chips, now refusing test. Intermittently refusing meds and blood work yesterday. Pending another session of HD today, will get labs during HD. Patient in usually somnolent state at time of exam this AM, not exhibiting any acute distress. Objective - Vital Signs/Intake and Output Vital Signs (last 24 hours): Temp Pulse Resp BP Pulse Ox 98.0 F 88 20 174/90 H 94 L 08/13/18 07:00 08/13/18 07:00 08/13/18 07:00 08/13/18 07:00 08/13/18 07:00 Intake and Output: 08/13/18 08/13/18 06:59 18:59 Intake Total 480 Balance 480 - Medications Medications: Current Medications Carvedilol (Coreg) 6.25 mg PO Q12 [facility] Last Admin: 08/13/18 10:15 Dose: Not Given Clonazepam (Klonopin) 0.5 mg PO TID [facility] Last Admin: 08/12/18 18:45 Dose: Not Given Clonidine HCl (Catapres-Tts2 0.2 Mg/24 Hr) 1 patch TD QWK [facility] Dextrose (Dextrose 50% Inj) 0 ml IV STAT PRN; Protocol PRN Reason: Hypoglycemia Protocol Dextrose (Glutose 15) 0 gm PO ONCE PRN; Protocol PRN Reason: Hypoglycemia Protocol Glucagon (Glucagen Diagnostic Kit) 0 mg IM STAT PRN; Protocol PRN Reason: Hypoglycemia Protocol Heparin Sodium (Porcine) (Heparin) 5,000 units SC Q12 [facility] Last Admin: 08/12/18 22:47 Dose: Not Given Heparin Sodium (Porcine) (Heparin (For Dialysis)) 3,900 units IVP MWF [facility] Stop: 07/23/19 23:00 Hydroxyzine HCl (Atarax) 25 mg IM Q6H PRN PRN Reason: Agitation Last Admin: 08/13/18 08:22 Dose: 25 mg Dextrose (Dextrose 5% In Water 1000 Ml) 1,000 mls @ 0 mls/hr IV .Q0M PRN; Protocol PRN Reason: Hypoglycemia Protocol Sodium Chloride (Sodium Chloride 0.9%) 1,000 mls @ 60 mls/hr IV .[id number] [facility] Last Admin: 08/11/18 15:55 Dose: 60 mls/hr Insulin Aspart (Novolog Mix 70/30 (70/30 Units/Ml)) 20 units SC DAILY [facility] Last Admin: 08/12/18 10:27 Dose: 20 u Insulin Aspart (Novolog Mix 70/30 (70/30 Units/Ml)) 10 units SC HS [facility] Last Admin: 08/12/18 21:57 Dose: Not Given Insulin Human Regular (Novolin R) 0 unit SC [facility]; Protocol Last Admin: 08/13/18 07:30 Dose: Not Given Lorazepam (Ativan) 2 mg IVP Q6H PRN PRN Reason: Anxiety Stop: 08/13/18 17:00 Losartan Potassium (Cozaar) 12.5 mg PO DAILY [facility] Last Admin: 08/13/18 10:15 Dose: Not Given Metoclopramide HCl (Reglan) 5 mg IVP Q6 PRN PRN Reason: Nausea/Vomiting Last Admin: 08/13/18 03:29 Dose: 5 mg Ondansetron HCl (Zofran Inj) 4 mg IVP Q6 PRN PRN Reason: Nausea/Vomiting Last Admin: 08/12/18 22:43 Dose: 4 mg Pantoprazole Sodium (Protonix Ec Tab) 40 mg PO DAILY [facility] Last Admin: 08/12/18 10:42 Dose: Not Given Paricalcitol (Zemplar) 4 mcg IV MWF [facility] Quetiapine Fumarate (Seroquel) 100 mg PO HS [facility] Last Admin: 08/12/18 22:47 Dose: Not Given Quetiapine Fumarate (Seroquel) 50 mg PO TID [facility] Last Admin: 08/12/18 18:45 Dose: Not Given Sertraline HCl (Zoloft) 50 mg PO DAILY [facility] - Labs Labs: 08/10/18 11:57 08/10/18 11:57 APTT 28.0 SECONDS (21-34) 08/11/18 09:26 - Additional Findings Additional findings: - Constitutional Appears: Chronically Ill, Exam limited due to minimally interactive patient, onl y following some commands - Head Exam Head Exam: ATRAUMATIC, NORMOCEPHALIC - Eye Exam Eye Exam: Normal appearance. absent: Conjunctival injection, Scleral icterus - ENT Exam Moist mucous membranes - Respiratory Exam limited exam due to pt refusing to take full breaths CTAB, no wheezes/rales/ronchi appreciated No chest wall tenderness - Cardiovascular Exam Cardiovascular Exam: Tachycardia, REGULAR RHYTHM, +S1, +S2. absent: Bra dycardia, Irregular Rhythm, JVD - GI/Abdominal Exam Exam limited due to patient refusing abdominal exam, soft, normal bowel sounds appreciateda - Extremities Exam Extremities exam: Positive for: normal capillary refill, normal inspection, pedal pulses present. Negative for: calf tenderness, joint swelling, pedal edema, tenderness - Neurological Exam Somnolent but arousable, then awake and alert, following some commands - Psychiatric Exam flat affect/sedate mood, minimally interactive, - Skin Skin Exam: Dry, Intact, Normal Color, Warm Assessment and Plan - Assessment and Plan (Free Text) Assessment: This is a 28yo F with extensive PMH, including poorly controlled IDDM, diabetic gastroparesis, ESRD on HD (MWF), seizure activity, and 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 Nephro was consulted for continuation of HD. Plan: 1) poorly controlled IDDM 2) diabetic gastroparesis 3) ESRD on HD (MWF) 4) Seizures/Pseudoseizures 5) Conversion disorder +/- Factitious disorder 6) Mild leukocytosis -Pending HD today, will try to obtain labwork during, HD nurses notified -Avoid morphine for pain control in ESRD pts given renal metabolites, low-dose diluadid preferable -Continue current BP control regimen -Given extensive anxiety/agitation, pain seeking behavior, and self-harming behavior (inducing self-emesis), believe that this patient would benefit greatly from Psych eval and recs Now intermittently refusing meds/tests/blood work, but continues to request more pain medications/ativan As per Psych, doesn't currently meet criteria for involuntary, and there are not a lot of voluntary inpatient programs equipped to handle HD patients Patient reviewed and discussed with attending, Dr. Nieves. <Migue Nieves - Last Filed: 08/14/18 07:48> Objective - Vital Signs/Intake and Output Vital Signs (last 24 hours): Temp Pulse Resp BP Pulse Ox 98.3 F 66 20 130/81 99 08/13/18 23:05 08/13/18 23:05 08/13/18 15:00 08/13/18 23:05 08/13/18 23:05 - Medications Medications: Current Medications Carvedilol (Coreg) 6.25 mg PO Q12 [facility] Last Admin: 08/13/18 22:59 Dose: Not Given Clonazepam (Klonopin) 0.5 mg PO TID [facility] Last Admin: 08/13/18 17:21 Dose: 0.5 mg Clonidine HCl (Catapres-Tts2 0.2 Mg/24 Hr) 1 patch TD QWK [facility] Dextrose (Dextrose 50% Inj) 0 ml IV STAT PRN; Protocol PRN Reason: Hypoglycemia Protocol Dextrose (Glutose 15) 0 gm PO ONCE PRN; Protocol PRN Reason: Hypoglycemia Protocol Glucagon (Glucagen Diagnostic Kit) 0 mg IM STAT PRN; Protocol PRN Reason: Hypoglycemia Protocol Heparin Sodium (Porcine) (Heparin) 5,000 units SC Q12 [facility] Last Admin: 08/13/18 22:59 Dose: Not Given Heparin Sodium (Porcine) (Heparin (For Dialysis)) 3,900 units IVP MWF [facility] Stop: 07/23/19 23:00 Last Admin: 08/13/18 14:35 Dose: 3,900 units Hydroxyzine HCl (Atarax) 25 mg IM Q6H PRN PRN Reason: Agitation Last Admin: 08/13/18 14:52 Dose: 25 mg Dextrose (Dextrose 5% In Water 1000 Ml) 1,000 mls @ 0 mls/hr IV .Q0M PRN; Pr otocol PRN Reason: Hypoglycemia Protocol Sodium Chloride (Sodium Chloride 0.9%) 1,000 mls @ 60 mls/hr IV .[id number] [facility] Last Admin: 08/13/18 10:45 Dose: 60 mls/hr Insulin Aspart (Novolog Mix 70/30 (70/30 Units/Ml)) 20 units SC DAILY [facility] Last Admin: 08/13/18 11:55 Dose: 20 units Insulin Aspart (Novolog Mix 70/30 (70/30 Units/Ml)) 10 units SC HS [facility] Last Admin: 08/13/18 22:02 Dose: Not Given Insulin Human Regular (Novolin R) 0 unit SC ACHS [facility]; Protocol Last Admin: 08/14/18 07:41 Dose: Not Given Losartan Potassium (Cozaar) 12.5 mg PO DAILY [facility] Last Admin: 08/13/18 10:15 Dose: Not Given Metoclopramide HCl (Reglan) 5 mg IVP Q6 PRN PRN Reason: Nausea/Vomiting Last Admin: 08/13/18 10:37 Dose: 5 mg Ondansetron HCl (Zofran Inj) 4 mg IVP Q6 PRN PRN Reason: Nausea/Vomiting Last Admin: 08/13/18 17:21 Dose: 4 mg Pantoprazole Sodium (Protonix Ec Tab) 40 mg PO DAILY [facility] Last Admin: 08/13/18 10:35 Dose: 40 mg Paricalcitol (Zemplar) 4 mcg IV MWF [facility] Last Admin: 08/13/18 13:06 Dose: 4 mcg Quetiapine Fumarate (Seroquel) 100 mg PO HS [facility] Last Admin: 08/13/18 22:59 Dose: Not Given Quetiapine Fumarate (Seroquel) 50 mg PO TID [facility] Last Admin: 08/13/18 17:21 Dose: 50 mg Sertraline HCl (Zoloft) 50 mg PO DAILY [facility] Last Admin: 08/13/18 10:36 Dose: 50 mg - Labs Labs: 08/13/18 11:16 08/13/18 11:16 APTT 28.0 SECONDS (21-34) 08/11/18 09:26 Attending/Attestation - Attestation I have personally seen and examined this patient.: Yes I have fully participated in the care of the patient.: Yes I have reviewed all pertinent clinical information, including history, physical exam and plan: Yes Notes (Text): Patient seen and examined; I agree with the resident's note as above with the following additions/edits: Patient with htn, dm w/ presumed gastroparesis, severe diabetic nephropathy, now ESRD since past 3 months, admitted again with intractable vomiting and erratic blood sugars; Patient seen on HD; not in any distress; BP well controlled during treatment; UF goal of only 500 cc due to decreased PO intake and intermittent vomiting; stable volume status; Discussed with attending psychiatrist today; he will look into facilities that can handle HD patients as voluntary psych admission; HTN controlled, continue current meds; Giving IV zemplar 4 mcg on HD instead of PO calcitriol (for secondary hyperparathyroidism of CKD);
[2018-08-13] MEDS: Sodium Chloride 0.9% 1,000 ML IV SCH (10:45)
[2018-08-13] MEDS: (Novolog Mix 70/30) Insulin Aspart/Insulin Aspar 100 units/ml SC SCH ×3 (10:47→22:02)
[2018-08-13 11:38] LABS: BASO # 0.1 K/uL (0.0-0.2); BASO % 1.3 % (0.0-2.0); EOS % 0.3 % (0.0-4.0); HEMOGLOBIN 10.2 g/dL (11.0-16.0); LYMPH # 1.1 K/uL (1.0-4.3); LYMPH % 12.5 % (20.0-40.0); MEAN CORPUSCULAR HEMOGLOBIN 25.9 pg (27.0-31.0); MEAN PLATELET VOLUME 10.4 fL (7.2-11.7); MONO # 0.3 K/uL (0.0-0.8); MONO % 3.4 % (0.0-10.0); NEUT # 7.1 K/uL (1.8-7.0); NEUT % 82.5 % (50.0-75.0); RBC 3.92 Mil/uL (3.80-5.20); RED CELL DISTRIBUTION WIDTH 18.3 % (11.5-14.5); WHITE BLOOD COUNT 8.6 K/uL (4.8-10.8)
[2018-08-13 11:39] LABS: MEAN CELL VOLUME 83.5 fL (81.0-99.0)
--- NOTE | 2018-08-13 11:52 | PCM.PYCHPN ---
Psychiatric Progress Note - Psychiatric Progress Note Patient seen today, length of contact: 18 min Patient Chief Complaint: "Not good" Problems Identified/Issues Discussed: The pt is seen, chart reviewed, case discussed with staff. Still anxious and in pain but somewhat better than yesterday Spoke to her mo too Support given Meds were increased but she skips them sometimes. It is advised to the RN that she must take them No SEs Medication Change: Yes (increased all 3 psych meds) Medical Record Reviewed: Yes Mental Status Examination - Cognitive Function Orientation: Person, Place, Time Memory: Impaired Attention: Poor Concentration: Poor Association: Loose Fund of Knowledge: WNL - Mood Mood: Depressed, Anxious - Affect Affect: Constricted - Speech Speech: Slurred - Formal Thought Process Formal Thought Process: No Impairment - Suicidal Ideation Suicidal Ideation: No - Homicidal Ideation Homicidal Ideation: No Goal/Treatment Plan - Goal/Treatment Plan Need for Continued Stay: Severe depression anxiety, Discharge may exacerbated symptoms, Severe functional impairment, Other (medical) Progress Toward Problem(s) and Goals/Treatment Plan: Resume meds: Zoloft for depression and anxiety - dose to be increased to 100 mg range slowly Seroquel for mood swings, irritability PRN Atarax and inderal for anxiety Klonopin for anxiety while she is here in the hospital. She is overusing ativan otherwise. Ativan will be d/c'ed Limit setting, support, psychoeducation SW can contact if she can be admitted to [facility] due to her severe personality disorder.
[2018-08-13 12:00] LABS: ALB/GLOB RATIO 1.5 (1.0-2.1); ALBUMIN 3.5 g/dL (3.5-5.0); CALCIUM 8.6 mg/dl (8.6-10.4)
[2018-08-13] MEDS: Paricalcitol 2 mcg/ml Inj IV SCH (13:06)
--- NOTE | 2018-08-14 00:09 | CP.PCM.PN ---
Subjective - Date & Time of Evaluation Date of Evaluation: 08/14/18 Time of Evaluation: 00:06 - Subjective Subjective: Medicine Progress Note for Dr. King's service S/E at bedside As per nursing, blood sugar was in 100s no novolog was given Reports abdominal pain and requesting pain meds/ativan Denies f, c, cp, sob, constipation or diarrhea. Objective - Vital Signs/Intake and Output Vital Signs (last 24 hours): Temp Pulse Resp BP Pulse Ox 98.4 F 84 20 131/83 97 08/13/18 15:00 08/13/18 17:20 08/13/18 15:00 08/13/18 17:20 08/13/18 15:00 Intake and Output: 08/13/18 08/14/18 18:59 06:59 Intake Total 1440 Balance 1440 - Medications Medications: Current Medications Carvedilol (Coreg) 6.25 mg PO Q12 [facility] Last Admin: 08/13/18 22:59 Dose: Not Given Clonazepam (Klonopin) 0.5 mg PO TID [facility] Last Admin: 08/13/18 17:21 Dose: 0.5 mg Clonidine HCl (Catapres-Tts2 0.2 Mg/24 Hr) 1 patch TD QWK [facility] Dextrose (Dextrose 50% Inj) 0 ml IV STAT PRN; Protocol PRN Reason: Hypoglycemia Protocol Dextrose (Glutose 15) 0 gm PO ONCE PRN; Protocol PRN Reason: Hypoglycemia Protocol Glucagon (Glucagen Diagnostic Kit) 0 mg IM STAT PRN; Protocol PRN Reason: Hypoglycemia Protocol Heparin Sodium (Porcine) (Heparin) 5,000 units SC Q12 [facility] Last Admin: 08/13/18 22:59 Dose: Not Given Heparin Sodium (Porcine) (Heparin (For Dialysis)) 3,900 units IVP MWF [facility] Stop: 07/23/19 23:00 Last Admin: 08/13/18 14:35 Dose: 3,900 units Hydroxyzine HCl (Atarax) 25 mg IM Q6H PRN PRN Reason: Agitation Last Admin: 08/13/18 14:52 Dose: 25 mg Dextrose (Dextrose 5% In Water 1000 Ml) 1,000 mls @ 0 mls/hr IV .Q0M PRN; Protocol PRN Reason: Hypoglycemia Protocol Sodium Chloride (Sodium Chloride 0.9%) 1,000 mls @ 60 mls/hr IV .[id number] [facility] Last Admin: 08/13/18 10:45 Dose: 60 mls/hr Insulin Aspart (Novolog Mix 70/30 (70/30 Units/Ml)) 20 units SC DAILY [facility] Last Admin: 08/13/18 11:55 Dose: 20 units Insulin Aspart (Novolog Mix 70/30 (70/30 Units/Ml)) 10 units SC [facility] Last Admin: 08/13/18 22:02 Dose: Not Given Insulin Human Regular (Novolin R) 0 unit SC [facility]; Protocol Last Admin: 08/13/18 22:01 Dose: Not Given Losartan Potassium (Cozaar) 12.5 mg PO DAILY [facility] Last Admin: 08/13/18 10:15 Dose: Not Given Metoclopramide HCl (Reglan) 5 mg IVP Q6 PRN PRN Reason: Nausea/Vomiting Last Admin: 08/13/18 10:37 Dose: 5 mg Ondansetron HCl (Zofran Inj) 4 mg IVP Q6 PRN PRN Reason: Nausea/Vomiting Last Admin: 08/13/18 17:21 Dose: 4 mg Pantoprazole Sodium (Protonix Ec Tab) 40 mg PO DAILY [facility] Last Admin: 08/13/18 10:35 Dose: 40 mg Paricalcitol (Zemplar) 4 mcg IV MWF [facility] Last Admin: 08/13/18 13:06 Dose: 4 mcg Quetiapine Fumarate (Seroquel) 100 mg PO [facility] Last Admin: 08/13/18 22:59 Dose: Not Given Quetiapine Fumarate (Seroquel) 50 mg PO TID [facility] Last Admin: 08/13/18 17:21 Dose: 50 mg Sertraline HCl (Zoloft) 50 mg PO DAILY [facility] Last Admin: 08/13/18 10:36 Dose: 50 mg - Labs Labs: 08/13/18 11:16 08/13/18 11:16 APTT 28.0 SECONDS (21-34) 08/11/18 09:26 - Constitutional Appears: Non-toxic, No Acute Distress, Chronically Ill - Head Exam Head Exam: NORMAL INSPECTION, NORMOCEPHALIC - Eye Exam Eye Exam: EOMI, Normal appearance - ENT Exam ENT Exam: Mucous Membranes Dry - Respiratory Exam Respiratory Exam: Clear to Ausculation Bilateral, NORMAL BREATHING PATTERN. absent: Wheezes - Cardiovascular Exam Cardiovascular Exam: REGULAR RHYTHM, +S1, +S2 - GI/Abdominal Exam GI & Abdominal Exam: Soft, Tenderness, Normal Bowel Sounds - Extremities Exam Extremities Exam: Normal Inspection. absent: Calf Tenderness, Pedal Edema - Back Exam Back Exam: NORMAL INSPECTION - Neurological Exam Neurological Exam: Awake, Oriented x3 - Psychiatric Exam Psychiatric exam: Agitated, Depressed - Skin Skin Exam: Dry, Intact, Normal Color Assessment and Plan - Assessment and Plan (Free Text) Plan: Intractable vomiting, abdominal pain possibly due to gastroparesis - versus psychogenic; multiple hospitalizations for similar episodes - Continue Reglan 5mg Q6 PRN - Continue zofran 4mg Q6H PRN - STOP: Dilaudid 0.5 mg Q8H; as this is contributing to abdominal pain, nausea, vomiting - Continue Protonix 40 mg - Liquid Diet, as Patient refusing the nuclear scan at this time - NS @ 60 mls/hr Anxiety,Major depression disorder, pseudoseizure - Psychiatry consulted, Dr. Mckeon; recommendations appreciated - Zoloft 50 mg Po daily - seroquel 50 mg tid and 100 mg HS - Clonpin 0.5mg po tid - Atarax 25mg Q6 PRN - [facility] Monitor Diabetes Mellitus Type 2 - Last Hgb A1c 07/05/18: 6.1 - Continue Novolog 70/30 20 units - Continue Novolog 70/30 10 units HS - ISS - Hypoglycemia protocol - Accuchecks ACHS ESRD on HD (MWF) - Nephrology consulted, Dr. Nieves; recommendations appreciated - HD MWF Hypertension - Clonidine 0.2 TD weekly - Losartan 25 mg PO daily - Coreg 6.25 mg PO BID PPx - DVT: Heparin - GI: Protonix
[2018-08-14] MEDS: (Novolin R) Insulin Human Regular 100 units/ml vial SC SCH ×4 (07:41→21:43)
--- NOTE | 2018-08-14 08:46 | CP.PCM.PN ---
Subjective - Date & Time of Evaluation Date of Evaluation: 08/14/18 Time of Evaluation: 08:00 - Subjective Subjective: f/u abd pain. Pt seen with Rn Agata Reports less abd pain, less vomiting. Denies RB, melena, fever, chills, SZ, LOC, cough, hematuria, hemoptysis Objective - Vital Signs/Intake and Output Vital Signs (last 24 hours): Temp Pulse Resp BP Pulse Ox 98.2 F 78 20 154/98 H 95 08/14/18 07:00 08/14/18 07:00 08/14/18 07:00 08/14/18 07:00 08/14/18 07:00 - Medications Medications: Current Medications Carvedilol (Coreg) 6.25 mg PO Q12 [facility] Last Admin: 08/13/18 22:59 Dose: Not Given Clonazepam (Klonopin) 0.5 mg PO TID [facility] Last Admin: 08/13/18 17:21 Dose: 0.5 mg Clonidine HCl (Catapres-Tts2 0.2 Mg/24 Hr) 1 patch TD QWK [facility] Dextrose (Dextrose 50% Inj) 0 ml IV STAT PRN; Protocol PRN Reason: Hypoglycemia Protocol Dextrose (Glutose 15) 0 gm PO ONCE PRN; Protocol PRN Reason: Hypoglycemia Protocol Glucagon (Glucagen Diagnostic Kit) 0 mg IM STAT PRN; Protocol PRN Reason: Hypoglycemia Protocol Heparin Sodium (Porcine) (Heparin) 5,000 units SC Q12 [facility] Last Admin: 08/13/18 22:59 Dose: Not Given Heparin Sodium (Porcine) (Heparin (For Dialysis)) 3,900 units IVP MWF [facility] Stop: 07/23/19 23:00 Last Admin: 08/13/18 14:35 Dose: 3,900 units Hydroxyzine HCl (Atarax) 25 mg IM Q6H PRN PRN Reason: Agitation Last Admin: 08/13/18 14:52 Dose: 25 mg Dextrose (Dextrose 5% In Water 1000 Ml) 1,000 mls @ 0 mls/hr IV .Q0M PRN; Protocol PRN Reason: Hypoglycemia Protocol Sodium Chloride (Sodium Chloride 0.9%) 1,000 mls @ 60 mls/hr IV .[id number] [facility] Last Admin: 08/13/18 10:45 Dose: 60 mls/hr Insulin Aspart (Novolog Mix 70/30 (70/30 Units/Ml)) 20 units SC DAILY [facility] Last Admin: 08/13/18 11:55 Dose: 20 units Insulin Aspart (Novolog Mix 70/30 (70/30 Units/Ml)) 10 units SC [facility] Last Admin: 08/13/18 22:02 Dose: Not Given Insulin Human Regular (Novolin R) 0 unit SC [facility]; Protocol Last Admin: 08/14/18 07:41 Dose: Not Given Losartan Potassium (Cozaar) 12.5 mg PO DAILY [facility] Last Admin: 08/13/18 10:15 Dose: Not Given Metoclopramide HCl (Reglan) 5 mg IVP Q6 PRN PRN Reason: Nausea/Vomiting Last Admin: 08/13/18 10:37 Dose: 5 mg Ondansetron HCl (Zofran Inj) 4 mg IVP Q6 PRN PRN Reason: Nausea/Vomiting Last Admin: 08/13/18 17:21 Dose: 4 mg Pantoprazole Sodium (Protonix Ec Tab) 40 mg PO DAILY [facility] Last Admin: 08/13/18 10:35 Dose: 40 mg Paricalcitol (Zemplar) 4 mcg IV MWF [facility] Last Admin: 08/13/18 13:06 Dose: 4 mcg Quetiapine Fumarate (Seroquel) 100 mg PO [facility] Last Admin: 08/13/18 22:59 Dose: Not Given Quetiapine Fumarate (Seroquel) 50 mg PO TID [facility] Last Admin: 08/13/18 17:21 Dose: 50 mg Sertraline HCl (Zoloft) 50 mg PO DAILY [facility] Last Admin: 08/13/18 10:36 Dose: 50 mg - Labs Labs: 08/13/18 11:16 08/13/18 11:16 APTT 28.0 SECONDS (21-34) 08/11/18 09:26 - Constitutional Appears: Non-toxic - Respiratory Exam Respiratory Exam: Clear to Ausculation Bilateral - Cardiovascular Exam Cardiovascular Exam: RRR - GI/Abdominal Exam GI & Abdominal Exam: Soft, Normal Bowel Sounds. absent: Guarding, Tenderness, Hernia, Mass, Rebound - Neurological Exam Neurological Exam: Alert, Awake, Oriented x3 Assessment and Plan (1) Abdominal pain Assessment & Plan: likely psychogenic. Consider gastrtiis. No tests for gastroparesis. Rec- PPI Status: Acute (2) Gastritis Status: Acute (3) History of anemia Status: Acute (4) History of diabetes mellitus Status: Acute (5) History of hypertension Status: Acute (6) Nausea & vomiting Status: Acute (7) CRF (chronic renal failure) Status: Chronic
[2018-08-14] MEDS: Losartan 12.5 MG TAB PO SCH (10:52)
[2018-08-14] MEDS: Pantoprazole 40 mg EC Tab PO SCH (10:52)
[2018-08-14] MEDS: (Novolog Mix 70/30) Insulin Aspart/Insulin Aspar 100 units/ml SC SCH ×2 (10:53→21:26)
[2018-08-14] MEDS: Sodium Chloride 0.9% 1,000 ML IV SCH (11:06)
--- NOTE | 2018-08-14 23:53 | CP.PCM.PN ---
Subjective - Date & Time of Evaluation Date of Evaluation: 08/14/18 Time of Evaluation: 14:00 - Subjective Subjective: Patient able to hold down some PO intake today, nausea improved; reports some dizziness lately; urinating well; Objective - Vital Signs/Intake and Output Vital Signs (last 24 hours): Temp Pulse Resp BP Pulse Ox 98 F 70 20 108/68 96 08/14/18 15:54 08/14/18 15:54 08/14/18 15:54 08/14/18 15:54 08/14/18 15:54 Intake and Output: 08/14/18 08/15/18 18:59 06:59 Intake Total 840 Balance 840 - Medications Medications: Current Medications Carvedilol (Coreg) 6.25 mg PO Q12 [facility] Last Admin: 08/14/18 21:26 Dose: 6.25 mg Clonazepam (Klonopin) 0.5 mg PO TID [facility] Last Admin: 08/14/18 17:24 Dose: 0.5 mg Clonidine HCl (Catapres-Tts2 0.2 Mg/24 Hr) 1 patch TD QWK [facility] Dextrose (Dextrose 50% Inj) 0 ml IV STAT PRN; Protocol PRN Reason: Hypoglycemia Protocol Dextrose (Glutose 15) 0 gm PO ONCE PRN; Protocol PRN Reason: Hypoglycemia Protocol Glucagon (Glucagen Diagnostic Kit) 0 mg IM STAT PRN; Protocol PRN Reason: Hypoglycemia Protocol Heparin Sodium (Porcine) (Heparin) 5,000 units SC Q12 [facility] Last Admin: 08/14/18 21:26 Dose: 5,000 units Hydroxyzine HCl (Atarax) 25 mg IM Q6H PRN PRN Reason: Agitation Last Admin: 08/13/18 14:52 Dose: 25 mg Dextrose (Dextrose 5% In Water 1000 Ml) 1,000 mls @ 0 mls/hr IV .Q0M PRN; Protocol PRN Reason: Hypoglycemia Protocol Insulin Aspart (Novolog Mix 70/30 (70/30 Units/Ml)) 20 units SC DAILY [facility] Last Admin: 08/14/18 10:53 Dose: 20 units Insulin Aspart (Novolog Mix 70/30 (70/30 Units/Ml)) 10 units SC HS [facility] Last Admin: 08/14/18 21:26 Dose: 10 units Insulin Human Regular (Novolin R) 0 unit SC ACHS [facility]; Protocol Last Admin: 08/14/18 21:43 Dose: Not Given Losartan Potassium (Cozaar) 12.5 mg PO DAILY [facility] Last Admin: 08/14/18 10:52 Dose: 12.5 mg Metoclopramide HCl (Reglan) 5 mg IVP Q6 PRN PRN Reason: Nausea/Vomiting Last Admin: 08/13/18 10:37 Dose: 5 mg Ondansetron HCl (Zofran Inj) 4 mg IVP Q6 PRN PRN Reason: Nausea/Vomiting Last Admin: 08/13/18 17:21 Dose: 4 mg Pantoprazole Sodium (Protonix Ec Tab) 40 mg PO DAILY [facility] Last Admin: 08/14/18 10:52 Dose: 40 mg Paricalcitol (Zemplar) 4 mcg IV MWF [facility] Last Admin: 08/13/18 13:06 Dose: 4 mcg Quetiapine Fumarate (Seroquel) 100 mg PO HS [facility] Last Admin: 08/14/18 21:26 Dose: 100 mg Quetiapine Fumarate (Seroquel) 50 mg PO TID [facility] Last Admin: 08/14/18 17:24 Dose: 50 mg Sertraline HCl (Zoloft) 50 mg PO DAILY [facility] Last Admin: 08/14/18 10:52 Dose: 50 mg - Labs Labs: 08/13/18 11:16 08/13/18 11:16 APTT 28.0 SECONDS (21-34) 08/11/18 09:26 - Constitutional Appears: Non-toxic, No Acute Distress - Eye Exam Eye Exam: Normal appearance - Respiratory Exam Respiratory Exam: Clear to Ausculation Bilateral. absent: Respiratory Distress - Cardiovascular Exam Cardiovascular Exam: RRR, +S1, +S2 - GI/Abdominal Exam GI & Abdominal Exam: Soft. absent: Distended, Tenderness - Extremities Exam Additional comments: no leg edema; AVF with sharp bruit; - Neurological Exam Neurological Exam: Alert, Awake - Psychiatric Exam Psychiatric exam: Normal Mood. absent: Agitated - Skin Skin Exam: Warm. absent: Cyanosis Assessment and Plan (1) ESRD (end stage renal disease) on dialysis Assessment & Plan: Stable electrolyte status; may have some volume depletion but has been refusing IVF; next HD for Thursday per routine; Status: Chronic (2) Gastroparesis Assessment & Plan: On reglan, dosed for ESRD; awaiting gastric emptying study; Status: Acute (3) Hypertensive CKD, ESRD on dialysis Assessment & Plan: BP on lower end of normal with orthostatic symptoms; holding losartan for now; Status: Acute (4) Anemia in CKD (chronic kidney disease) Assessment & Plan: Hgb just at goal; will restart EPO on HD; Status: Chronic (5) Chronic kidney disease-mineral and bone disorder Assessment & Plan: Continue zemplar on HD; Status: Chronic
--- NOTE | 2018-08-15 00:38 | CP.PCM.PN ---
Subjective - Date & Time of Evaluation Date of Evaluation: 08/15/18 Time of Evaluation: 00:23 - Subjective Subjective: Medicine Progress Note for Dr. King's service S/E at bedside No episodes of vomiting reported. Admits to slight nausea in the morning Denies abdominal pain Denies fevers, chills, chest pain, sob, constipation or diarrhea, and dysuria. Objective - Vital Signs/Intake and Output Vital Signs (last 24 hours): Temp Pulse Resp BP Pulse Ox 98 F 70 20 108/68 96 08/14/18 15:54 08/14/18 15:54 08/14/18 15:54 08/14/18 15:54 08/14/18 15:54 Intake and Output: 08/14/18 08/15/18 18:59 06:59 Intake Total 840 Balance 840 - Medications Medications: Current Medications Carvedilol (Coreg) 6.25 mg PO Q12 [facility] Last Admin: 08/14/18 21:26 Dose: 6.25 mg Clonazepam (Klonopin) 0.5 mg PO TID [facility] Last Admin: 08/14/18 17:24 Dose: 0.5 mg Clonidine HCl (Catapres-Tts2 0.2 Mg/24 Hr) 1 patch TD QWK [facility] Dextrose (Dextrose 50% Inj) 0 ml IV STAT PRN; Protocol PRN Reason: Hypoglycemia Protocol Dextrose (Glutose 15) 0 gm PO ONCE PRN; Protocol PRN Reason: Hypoglycemia Protocol Glucagon (Glucagen Diagnostic Kit) 0 mg IM STAT PRN; Protocol PRN Reason: Hypoglycemia Protocol Heparin Sodium (Porcine) (Heparin) 5,000 units SC Q12 [facility] Last Admin: 08/14/18 21:26 Dose: 5,000 units Hydroxyzine HCl (Atarax) 25 mg IM Q6H PRN PRN Reason: Agitation Last Admin: 08/13/18 14:52 Dose: 25 mg Dextrose (Dextrose 5% In Water 1000 Ml) 1,000 mls @ 0 mls/hr IV .Q0M PRN; Protocol PRN Reason: Hypoglycemia Protocol Insulin Aspart (Novolog Mix 70/30 (70/30 Units/Ml)) 20 units SC DAILY [facility] Last Admin: 08/14/18 10:53 Dose: 20 units Insulin Aspart (Novolog Mix 70/30 (70/30 Units/Ml)) 10 units SC HS [facility] Last Admin: 08/14/18 21:26 Dose: 10 units Insulin Human Regular (Novolin R) 0 unit SC [facility]; Protocol Last Admin: 08/14/18 21:43 Dose: Not Given Losartan Potassium (Cozaar) 12.5 mg PO DAILY [facility] Last Admin: 08/14/18 10:52 Dose: 12.5 mg Metoclopramide HCl (Reglan) 5 mg IVP Q6 PRN PRN Reason: Nausea/Vomiting Last Admin: 08/13/18 10:37 Dose: 5 mg Ondansetron HCl (Zofran Inj) 4 mg IVP Q6 PRN PRN Reason: Nausea/Vomiting Last Admin: 08/13/18 17:21 Dose: 4 mg Pantoprazole Sodium (Protonix Ec Tab) 40 mg PO DAILY [facility] Last Admin: 08/14/18 10:52 Dose: 40 mg Paricalcitol (Zemplar) 4 mcg IV MWF [facility] Last Admin: 08/13/18 13:06 Dose: 4 mcg Quetiapine Fumarate (Seroquel) 100 mg PO [facility] Last Admin: 08/14/18 21:26 Dose: 100 mg Quetiapine Fumarate (Seroquel) 50 mg PO TID [facility] Last Admin: 08/14/18 17:24 Dose: 50 mg Sertraline HCl (Zoloft) 50 mg PO DAILY [facility] Last Admin: 08/14/18 10:52 Dose: 50 mg - Labs Labs: 08/13/18 11:16 08/13/18 11:16 APTT 28.0 SECONDS (21-34) 08/11/18 09:26 - Constitutional Appears: Non-toxic, No Acute Distress - Head Exam Head Exam: NORMAL INSPECTION, NORMOCEPHALIC - Eye Exam Eye Exam: EOMI - ENT Exam ENT Exam: Mucous Membranes Moist - Respiratory Exam Respiratory Exam: Clear to Ausculation Bilateral, NORMAL BREATHING PATTERN - Cardiovascular Exam Cardiovascular Exam: REGULAR RHYTHM, +S1, +S2 - GI/Abdominal Exam GI & Abdominal Exam: Soft, Normal Bowel Sounds. absent: Tenderness - Extremities Exam Extremities Exam: Normal Inspection - Neurological Exam Neurological Exam: Awake, Oriented x3 - Psychiatric Exam Psychiatric exam: Normal Affect, Normal Mood - Skin Skin Exam: Dry, Intact, Normal Color Assessment and Plan - Assessment and Plan (Free Text) Assessment: Intractable vomiting, abdominal pain possibly due to gastroparesis - versus psychogenic; multiple hospitalizations for similar episodes - Continue Reglan 5mg Q6 PRN - Continue zofran 4mg Q6H PRN - STOP: Dilaudid 0.5 mg Q8H; as this is contributing to abdominal pain, nausea, vomiting - Continue Protonix 40 mg - Liquid Diet, as Patient refusing the nuclear scan at this time - NS @ 60 mls/hr Anxiety,Major depression disorder, pseudoseizure - Psychiatry consulted, Dr. Mckeon; recommendations appreciated - Zoloft 50 mg Po daily - seroquel 50 mg tid and 100 mg HS - Clonpin 0.5mg po tid - Atarax 25mg Q6 PRN - [facility] Monitor Diabetes Mellitus Type 2 - Last Hgb A1c 07/05/18: 6.1 - Continue Novolog 70/30 20 units - Continue Novolog 70/30 10 units HS - ISS - Hypoglycemia protocol - Accuchecks ACHS ESRD on HD (MWF) - Nephrology consulted, Dr. Nieves; recommendations appreciated - HD MWF Hypertension - Clonidine 0.2 TD weekly - Losartan 25 mg PO daily - Coreg 6.25 mg PO BID PPx - DVT: Heparin - GI: Protonix
[2018-08-15] MEDS: (Novolin R) Insulin Human Regular 100 units/ml vial SC SCH ×4 (07:30→22:01)
[2018-08-15] MEDS: Pantoprazole 40 mg EC Tab PO SCH (10:14)
[2018-08-15] MEDS: (Novolog Mix 70/30) Insulin Aspart/Insulin Aspar 100 units/ml SC SCH ×2 (10:15→22:00)
[2018-08-16] MEDS: (Novolin R) Insulin Human Regular 100 units/ml vial SC SCH ×2 (09:13→11:52)
[2018-08-16] MEDS: (Novolog Mix 70/30) Insulin Aspart/Insulin Aspar 100 units/ml SC SCH (09:14)
[2018-08-16] MEDS: Pantoprazole 40 mg EC Tab PO SCH (09:15)
[2018-08-16 10:05] LABS: BASO # 0.1 K/uL (0.0-0.2); BASO % 1.2 % (0.0-2.0); EOS # 0.4 K/uL (0.0-0.7); EOS % 6.1 % (0.0-4.0); HEMOGLOBIN 10.1 g/dL (11.0-16.0); LYMPH # 1.9 K/uL (1.0-4.3); LYMPH % 32.2 % (20.0-40.0); MEAN CELL VOLUME 82.7 fL (81.0-99.0); MEAN CORPUSCULAR HEMOGLOBIN 26.4 pg (27.0-31.0); MEAN CORPUSCULAR HGB CONC 31.9 g/dL (33.0-37.0); MONO # 0.4 K/uL (0.0-0.8); NEUT # 3.1 K/uL (1.8-7.0); NEUT % 53.5 % (50.0-75.0); NRBC % 0.1 % (0.0-2.0); RBC 3.83 Mil/uL (3.80-5.20); RED CELL DISTRIBUTION WIDTH 18.4 % (11.5-14.5); WHITE BLOOD COUNT 5.9 K/uL (4.8-10.8)
--- NOTE | 2018-08-16 10:36 | CP.PCM.PN ---
Subjective - Date & Time of Evaluation Date of Evaluation: 08/16/18 Time of Evaluation: 09:00 - Subjective Subjective: Nephro Progress Note for Dr. Ezequiel Nash DO, PGY-3 IM Patient seen and examined at bedside. Resting comfortably in bed, reports no further emesis. Only complaint is fatigue. Pending HD today, and pending AVF procedure tomorrow. Objective - Vital Signs/Intake and Output Vital Signs (last 24 hours): Temp Pulse Resp BP Pulse Ox 97.9 F 78 16 153/102 H 100 08/16/18 09:40 08/16/18 09:40 08/16/18 09:40 08/16/18 10:10 08/16/18 09:40 - Medications Medications: Current Medications Carvedilol (Coreg) 6.25 mg PO Q12 [facility] Last Admin: 08/15/18 22:01 Dose: 6.25 mg Clonazepam (Klonopin) 0.5 mg PO TID [facility] Last Admin: 08/16/18 09:15 Dose: 0.5 mg Clonidine HCl (Catapres-Tts2 0.2 Mg/24 Hr) 1 patch TD QWK [facility] Dextrose (Dextrose 50% Inj) 0 ml IV STAT PRN; Protocol PRN Reason: Hypoglycemia Protocol Last Admin: 08/15/18 06:24 Dose: 50 ml Dextrose (Glutose 15) 0 gm PO ONCE PRN; Protocol PRN Reason: Hypoglycemia Protocol Epoetin Mk (Procrit) 4,000 unit IV MWF [facility] Glucagon (Glucagen Diagnostic Kit) 0 mg IM STAT PRN; Protocol PRN Reason: Hypoglycemia Protocol Heparin Sodium (Porcine) (Heparin) 5,000 units SC Q12 [facility] Last Admin: 08/16/18 09:14 Dose: 5,000 units Hydroxyzine HCl (Atarax) 25 mg IM Q6H PRN PRN Reason: Agitation Last Admin: 08/13/18 14:52 Dose: 25 mg Insulin Aspart (Novolog Mix 70/30 (70/30 Units/Ml)) 20 units SC DAILY [facility] Last Admin: 08/16/18 09:14 Dose: 20 units Insulin Aspart (Novolog Mix 70/30 (70/30 Units/Ml)) 10 units SC HS [facility] Last Admin: 08/15/18 22:00 Dose: 10 units Insulin Human Regular (Novolin R) 0 unit SC ACHS [facility]; Protocol Last Admin: 08/16/18 09:13 Dose: 6 units Losartan Potassium (Cozaar) 12.5 mg PO DAILY [facility] Last Admin: 08/14/18 10:52 Dose: 12.5 mg Metoclopramide HCl (Reglan) 5 mg IVP Q6 PRN PRN Reason: Nausea/Vomiting Last Admin: 08/13/18 10:37 Dose: 5 mg Ondansetron HCl (Zofran Inj) 4 mg IVP Q6 PRN PRN Reason: Nausea/Vomiting Last Admin: 08/13/18 17:21 Dose: 4 mg Pantoprazole Sodium (Protonix Ec Tab) 40 mg PO DAILY [facility] Last Admin: 08/16/18 09:15 Dose: 40 mg Paricalcitol (Zemplar) 4 mcg IV MWF [facility] Last Admin: 08/13/18 13:06 Dose: 4 mcg Quetiapine Fumarate (Seroquel) 100 mg PO HS [facility] Last Admin: 08/15/18 22:01 Dose: 100 mg Quetiapine Fumarate (Seroquel) 50 mg PO TID [facility] Last Admin: 08/16/18 09:15 Dose: 50 mg Sertraline HCl (Zoloft) 50 mg PO DAILY [facility] Last Admin: 08/16/18 09:15 Dose: 50 mg - Labs Labs: 08/16/18 09:52 08/13/18 11:16 APTT 28.0 SECONDS (21-34) 08/11/18 09:26 - Additional Findings Additional findings: - Constitutional Appears: Chronically Ill, No acute distress - Head Exam Head Exam: ATRAUMATIC, NORMOCEPHALIC - Eye Exam Eye Exam: Normal appearance. absent: Conjunctival injection, Scleral icterus - ENT Exam Moist mucous membranes - Respiratory Exam CTAB, no wheezes/rales/ronchi, no tachypnea, taking normal deep breaths - Cardiovascular Exam Cardiovascular Exam: RRR, +S1, +S2. absent: Bradycardia, Tachycardia, Irregular Rhythm, JVD - GI/Abdominal Exam Exam limited due to patient refusing abdominal exam, soft, normal bowel sounds appreciateda - Extremities Exam Extremities exam: Positive for: normal capillary refill, normal inspection, pedal pulses present. 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 Nephro was consulted for continuation of HD. Plan: 1) IDDM 2) diabetic gastroparesis 3) ESRD on HD (MWF) 4) Seizures/Pseudoseizures 5) Conversion disorder +/- Factitious disorder 6) Mild leukocytosis -Pending HD today, will try to obtain labwork during, HD nurses notified -Avoid morphine for pain control in ESRD pts given renal metabolites, low-dose diluadid preferable -Continue current BP control regimen -Given extensive anxiety/agitation, pain seeking behavior, and self-harming behavior (inducing self-emesis), believe that this patient would benefit greatly from Psych eval and recs Now intermittently refusing meds/tests/blood work, but continues to request more pain medications/ativan As per Psych, doesn't currently meet criteria for involuntary, and there are not a lot of voluntary inpatient programs equipped to handle HD patients -Pending AVF procedure tomorrow, clear from Nephro standpoint for procedure. Concern raised regarding elevated sugars, however given most recent A1c of 6.1, more likely the elevated blood glucoses are 2/2 acute stress/emesis Patient reviewed and discussed with attending, Dr. Nieves.
[2018-08-16 10:41] LABS: ALB/GLOB RATIO 1.2 (1.0-2.1); CALCIUM 8.2 mg/dl (8.6-10.4)
[2018-08-16] MEDS: Paricalcitol 2 mcg/ml Inj IV SCH (11:28)
--- NOTE | 2018-08-16 14:25 | CP.PCM.PCO ---
Physician Communication Note - Physician Communication Note Physician Communication Note: Patient planned to go for AVF revision 08/17. NPO past MN
--- NOTE | 2018-08-16 15:08 | CP.PCM.CON ---
History of Present Illness - History of Present Illness History of Present Illness: Vascular Surgery Consult for Dr. Hines Reason for consult: non-functioning AVF 28F with PMHx IDDM, diabetic gastroparesis, ESRD, seizure hx, anxiety, Munchausen's, presented to [facility] for intractable abd pain. Vascular surgery consulted for non-functioning AVF. Patient was recently discharged on 08/08 then returned 08/10 to be admitted. Plan for AVF revision 08/17. PMHx: IDDM, diabetic gastroparesis, ESRD, seizure hx, anxiety, Munchausen's PSHx: appy, AVF allergies: NKDA SocHx: Denies alcohol/tobacco/drug use Review of Systems - Review of Systems All systems: reviewed and no additional remarkable complaints except (as per HPI) Past Patient History - Infectious Disease Hx of Infectious Diseases: None - Past Medical History & Family History Past Medical History?: Yes - Past Social History Smoking Status: Never Smoked - CARDIAC Hx Hypertension: Yes - PULMONARY Hx Bronchitis: Yes - NEUROLOGICAL Hx Seizures: Yes (Pseudo seizures?) - HEENT Hx HEENT Problems: Yes Hx Cataracts: Yes - RENAL Hx Chronic Kidney Disease: Yes - ENDOCRINE/METABOLIC Hx Endocrine Disorders: Yes Hx Diabetes Mellitus Type 2: Yes (on insulin pump) - HEMATOLOGICAL/ONCOLOGICAL Hx Anemia: Yes Hx Human Immunodeficiency Virus (HIV): No - INTEGUMENTARY Hx Dermatological Problems: No - MUSCULOSKELETAL/RHEUMATOLOGICAL Hx Musculoskeletal Disorders: No Hx Falls: No - GASTROINTESTINAL Hx Gastrointestinal Disorders: Yes (SEE COMMENT) Other/Comment: gastroparesis - GENITOURINARY/GYNECOLOGICAL Hx Genitourinary Disorders: No - PSYCHIATRIC Hx Anxiety: Yes Hx Depression: Yes Hx Substance Use: No - SURGICAL HISTORY Hx Appendectomy: Yes - ANESTHESIA Hx Anesthesia: Yes Hx Anesthesia Reactions: No Hx Malignant Hyperthermia: No Has any member of the family had a problem w/ anesthesia?: No Meds Home Medications: Home Medication List Medication Instructions Recorded Confirmed Type Carvedilol [Coreg] 6.25 mg PO Q12 #60 tab 08/16/18 Rx Insulin Aspart/Insulin Aspar 10 units SC HS #1 vial 08/16/18 Rx [Novolog Mix 70/30 (70/30 units/ml)] Insulin Aspart/Insulin Aspar 20 units SC DAILY #1 vial 08/16/18 Rx [Novolog Mix 70/30 (70/30 units/ml)] Losartan Potassium 1 tab PO DAILY #30 tablet 08/16/18 Rx QUEtiapine [SEROquel] 50 mg PO TID #90 tab 08/16/18 Rx Sertraline [Zoloft] 50 mg PO DAILY #30 tab 08/16/18 Rx cloNIDine 0.2 mg/24 hr 1 patch TD QWK #7 patch 08/16/18 Rx [catapres-TTS2 0.2 mg/24 hr] Allergies/Adverse Reactions: Allergies Allergy/AdvReac Type Severity Reaction Status Date / Time No Known Allergies Allergy Verified 08/10/18 11:36 - Medications Medications: Current Medications Carvedilol (Coreg) 6.25 mg PO Q12 [facility] Last Admin: 08/16/18 11:52 Dose: Not Given Clonazepam (Klonopin) 0.5 mg PO TID [facility] Last Admin: 08/16/18 13:59 Dose: 0.5 mg Clonidine HCl (Catapres-Tts2 0.2 Mg/24 Hr) 1 patch TD QWK [facility] Dextrose (Dextrose 50% Inj) 0 ml IV STAT PRN; Protocol PRN Reason: Hypoglycemia Protocol Last Admin: 08/15/18 06:24 Dose: 50 ml Dextrose (Glutose 15) 0 gm PO ONCE PRN; Protocol PRN Reason: Hypoglycemia Protocol Epoetin Mk (Procrit) 4,000 unit IV MWF [facility] Glucagon (Glucagen Diagnostic Kit) 0 mg IM STAT PRN; Protocol PRN Reason: Hypoglycemia Protocol Heparin Sodium (Porcine) (Heparin) 5,000 units SC Q12 [facility] Last Admin: 08/16/18 09:14 Dose: 5,000 units Hydroxyzine HCl (Atarax) 25 mg IM Q6H PRN PRN Reason: Agitation Last Admin: 08/13/18 14:52 Dose: 25 mg Insulin Aspart (Novolog Mix 70/30 (70/30 Units/Ml)) 20 units SC DAILY [facility] Last Admin: 08/16/18 09:14 Dose: 20 units Insulin Aspart (Novolog Mix 70/30 (70/30 Units/Ml)) 10 units SC HS [facility] Last Admin: 08/15/18 22:00 Dose: 10 units Insulin Human Regular (Novolin R) 0 unit SC ACHS [facility]; Protocol Last Admin: 08/16/18 11:52 Dose: Not Given Losartan Potassium (Cozaar) 12.5 mg PO DAILY [facility] Last Admin: 08/14/18 10:52 Dose: 12.5 mg Metoclopramide HCl (Reglan) 5 mg IVP Q6 PRN PRN Reason: Nausea/Vomiting Last Admin: 08/13/18 10:37 Dose: 5 mg Ondansetron HCl (Zofran Inj) 4 mg IVP Q6 PRN PRN Reason: Nausea/Vomiting Last Admin: 08/13/18 17:21 Dose: 4 mg Pantoprazole Sodium (Protonix Ec Tab) 40 mg PO DAILY [facility] Last Admin: 08/16/18 09:15 Dose: 40 mg Paricalcitol (Zemplar) 4 mcg IV MWF [facility] Last Admin: 08/16/18 11:28 Dose: 4 mcg Quetiapine Fumarate (Seroquel) 100 mg PO HS [facility] Last Admin: 08/15/18 22:01 Dose: 100 mg Quetiapine Fumarate (Seroquel) 50 mg PO TID [facility] Last Admin: 08/16/18 13:59 Dose: 50 mg Sertraline HCl (Zoloft) 50 mg PO DAILY [facility] Last Admin: 08/16/18 09:15 Dose: 50 mg Physical Exam - Constitutional Appears: No Acute Distress - Head Exam Head Exam: ATRAUMATIC, NORMOCEPHALIC - Eye Exam Eye Exam: EOMI, Normal appearance Pupil Exam: PERRL - ENT Exam ENT Exam: Mucous Membranes Moist - Respiratory Exam Respiratory Exam: NORMAL BREATHING PATTERN - Cardiovascular Exam Cardiovascular Exam: REGULAR RHYTHM - GI/Abdominal Exam GI & Abdominal Exam: Normal Bowel Sounds, Soft. absent: Tenderness - Extremities Exam Extremities exam: Positive for: normal capillary refill, pedal pulses present - Back Exam Back exam: absent: CVA tenderness (L), CVA tenderness (R) - Neurological Exam Neurological exam: Alert, Oriented x3 - Psychiatric Exam Psychiatric exam: Normal Affect, Normal Mood - Skin Skin Exam: Dry, Intact, Warm Results - Vital Signs Recent Vital Signs: Last Vital Signs Temp 97.6 F 08/16/18 13:10 Pulse 81 08/16/18 13:10 Resp 18 08/16/18 13:10 BP 116/81 08/16/18 13:10 Pulse Ox 100 08/16/18 13:10 - Labs Result Diagrams: 08/16/18 09:52 08/16/18 09:52 Labs: Laboratory Results - last 24 hr 08/15/18 08/15/18 08/15/18 12:13 17:10 20:58 WBC RBC Hgb Hct MCV MCH MCHC RDW Plt Count MPV Neut % (Auto) Lymph % (Auto) Travis % (Auto) Eos % (Auto) Baso % (Auto) Neut # (Auto) Lymph # (Auto) Travis # (Auto) Eos # (Auto) Baso # (Auto) Sodium Potassium Chloride Carbon Dioxide Anion Gap BUN Creatinine Est GFR ( Amer) Est GFR (Non-Af Amer) POC Glucose (mg/dL) 77 133 H 368 H Random Glucose Calcium Phosphorus Magnesium Total Bilirubin AST ALT Alkaline Phosphatase Total Protein Albumin Globulin Albumin/Globulin Ratio 08/16/18 08/16/18 08/16/18 01:49 06:16 09:52 WBC 5.9 RBC 3.83 Hgb 10.1 L Hct 31.7 L MCV 82.7 MCH 26.4 L MCHC 31.9 L RDW 18.4 H Plt Count 250 MPV 10.0 Neut % (Auto) 53.5 Lymph % (Auto) 32.2 Travis % (Auto) 7.0 Eos % (Auto) 6.1 H Baso % (Auto) 1.2 Neut # (Auto) 3.1 Lymph # (Auto) 1.9 Travis # (Auto) 0.4 Eos # (Auto) 0.4 Baso # (Auto) 0.1 Sodium Potassium Chloride Carbon Dioxide Anion Gap BUN Creatinine Est GFR ( Amer) Est GFR (Non-Af Amer) POC Glucose (mg/dL) 273 H 326 H Random Glucose Calcium Phosphorus Magnesium Total Bilirubin AST ALT Alkaline Phosphatase Total Protein Albumin Globulin Albumin/Globulin Ratio 08/16/18 08/16/18 09:52 11:22 WBC RBC Hgb Hct MCV MCH MCHC RDW Plt Count MPV Neut % (Auto) Lymph % (Auto) Travis % (Auto) Eos % (Auto) Baso % (Auto) Neut # (Auto) Lymph # (Auto) Travis # (Auto) Eos # (Auto) Baso # (Auto) Sodium 133 Potassium 4.6 Chloride 100 Carbon Dioxide 23 Anion Gap 14 BUN 30 H Creatinine 5.6 H Est GFR ( Amer) 11 Est GFR (Non-Af Amer) 9 POC Glucose (mg/dL) 133 H Random Glucose 450 H* D Calcium 8.2 L Phosphorus 3.9 Magnesium 2.1 Total Bilirubin 0.1 L AST 15 ALT 16 Alkaline Phosphatase 133 H D Total Protein 5.5 L Albumin 3.0 L Globulin 2.5 Albumin/Globulin Ratio 1.2 Assessment & Plan - Assessment and Plan (Free Text) Assessment: 28F with non-functioning AVF Plan: -Plan for AVF revision 08/17 -NPO past MN -AM labs -Type & Screen -Discussed with Dr. Flora Ford PGY2 - Date & Time Date: 08/16/18 Time: 15:09
--- NOTE | 2018-08-16 15:34 | CP.PCM.PN ---
Subjective - Date & Time of Evaluation Date of Evaluation: 08/16/18 Time of Evaluation: 15:31 - Subjective Subjective: Medicine Progress Note for Dr. King's service S/E at bedside Requested to have her AVF revision this admission As per surgical team patient can have revision tomorrow Denies fevers, chills, chest pain, sob, n/v, constipation or diarrhea, and dysuria. Nurse informed of a blood sugar in 40s today. Objective - Vital Signs/Intake and Output Vital Signs (last 24 hours): Temp Pulse Resp BP Pulse Ox 97.6 F 81 18 116/81 100 08/16/18 13:10 08/16/18 13:10 08/16/18 13:10 08/16/18 13:10 08/16/18 13:10 - Medications Medications: Current Medications Carvedilol (Coreg) 6.25 mg PO Q12 [facility] Last Admin: 08/16/18 11:52 Dose: Not Given Clonazepam (Klonopin) 0.5 mg PO TID [facility] Last Admin: 08/16/18 13:59 Dose: 0.5 mg Clonidine HCl (Catapres-Tts2 0.2 Mg/24 Hr) 1 patch TD QWK [facility] Dextrose (Dextrose 50% Inj) 0 ml IV STAT PRN; Protocol PRN Reason: Hypoglycemia Protocol Last Admin: 08/15/18 06:24 Dose: 50 ml Dextrose (Glutose 15) 0 gm PO ONCE PRN; Protocol PRN Reason: Hypoglycemia Protocol Epoetin Mk (Procrit) 4,000 unit IV MWF [facility] Glucagon (Glucagen Diagnostic Kit) 0 mg IM STAT PRN; Protocol PRN Reason: Hypoglycemia Protocol Heparin Sodium (Porcine) (Heparin) 5,000 units SC Q12 [facility] Last Admin: 08/16/18 09:14 Dose: 5,000 units Hydroxyzine HCl (Atarax) 25 mg IM Q6H PRN PRN Reason: Agitation Last Admin: 08/13/18 14:52 Dose: 25 mg Insulin Aspart (Novolog Mix 70/30 (70/30 Units/Ml)) 20 units SC DAILY [facility] Last Admin: 08/16/18 09:14 Dose: 20 units Insulin Aspart (Novolog Mix 70/30 (70/30 Units/Ml)) 10 units SC HS [facility] Last Admin: 08/15/18 22:00 Dose: 10 units Insulin Human Regular (Novolin R) 0 unit SC ACHS [facility]; Protocol Last Admin: 08/16/18 11:52 Dose: Not Given Losartan Potassium (Cozaar) 12.5 mg PO DAILY [facility] Last Admin: 08/14/18 10:52 Dose: 12.5 mg Metoclopramide HCl (Reglan) 5 mg IVP Q6 PRN PRN Reason: Nausea/Vomiting Last Admin: 08/13/18 10:37 Dose: 5 mg Ondansetron HCl (Zofran Inj) 4 mg IVP Q6 PRN PRN Reason: Nausea/Vomiting Last Admin: 08/13/18 17:21 Dose: 4 mg Pantoprazole Sodium (Protonix Ec Tab) 40 mg PO DAILY [facility] Last Admin: 08/16/18 09:15 Dose: 40 mg Paricalcitol (Zemplar) 4 mcg IV MWF [facility] Last Admin: 08/16/18 11:28 Dose: 4 mcg Quetiapine Fumarate (Seroquel) 100 mg PO HS [facility] Last Admin: 08/15/18 22:01 Dose: 100 mg Quetiapine Fumarate (Seroquel) 50 mg PO TID [facility] Last Admin: 08/16/18 13:59 Dose: 50 mg Sertraline HCl (Zoloft) 50 mg PO DAILY [facility] Last Admin: 08/16/18 09:15 Dose: 50 mg - Labs Labs: 08/16/18 09:52 08/16/18 09:52 APTT 28.0 SECONDS (21-34) 08/11/18 09:26 - Constitutional Appears: Non-toxic, No Acute Distress - Head Exam Head Exam: NORMAL INSPECTION, NORMOCEPHALIC - Eye Exam Eye Exam: EOMI, Normal appearance. absent: Nystagmus, Scleral icterus - ENT Exam ENT Exam: Mucous Membranes Dry - Respiratory Exam Respiratory Exam: Clear to Ausculation Bilateral, NORMAL BREATHING PATTERN - Cardiovascular Exam Cardiovascular Exam: REGULAR RHYTHM, +S1, +S2 - GI/Abdominal Exam GI & Abdominal Exam: Soft, Normal Bowel Sounds. absent: Tenderness - Extremities Exam Extremities Exam: Normal Inspection. absent: Calf Tenderness, Pedal Edema - Neurological Exam Neurological Exam: Alert, Awake, Oriented x3 - Psychiatric Exam Psychiatric exam: Normal Affect, Normal Mood - Skin Skin Exam: Dry, Intact, Normal Color Assessment and Plan - Assessment and Plan (Free Text) Assessment: MEDICAL CLEARANCE: Patient's A1C is controlled. Patient's blood sugar spikes and lows are reactive to patient's NPO status when she induces vomiting. Patient has been able to tolerate oral po intake since 08/15 with no episodes of vomiting reported. Patient is medically clear for uncontrolled blood sugars to receive AVF revision in AM. Intractable vomiting, abdominal pain possibly due to gastroparesis - versus psychogenic; multiple hospitalizations for similar episodes - Continue Reglan 5mg Q6 PRN - Continue zofran 4mg Q6H PRN - STOP: Dilaudid 0.5 mg Q8H; as this is contributing to abdominal pain, nausea, vomiting - Continue Protonix 40 mg - Liquid Diet, as Patient refusing the nuclear scan at this time - NS @ 60 mls/hr Anxiety,Major depression disorder, pseudoseizure - Psychiatry consulted, Dr. Mckeon; recommendations appreciated - Zoloft 50 mg Po daily - seroquel 50 mg tid and 100 mg HS - Clonpin 0.5mg po tid - Atarax 25mg Q6 PRN - [employer] Monitor Diabetes Mellitus Type 2 - Last Hgb A1c 07/05/18: 6.1 - Continue Novolog 70/30 20 units - Continue Novolog 70/30 10 units HS - ISS - Hypoglycemia protocol - Accuchecks ACHS ESRD on HD (MWF) - Nephrology consulted, Dr. Nieves; recommendations appreciated - HD MWF - for AVF revision in AM with surgical team; will be made NPO; AC will be held; DM management will be adjusted as necessary, please review orders Hypertension - Clonidine 0.2 TD weekly - Losartan 25 mg PO daily - Coreg 6.25 mg PO BID PPx - DVT: Heparin - GI: Protonix PGY-1 Manpreet Liu d/w Dr. King
--- NOTE | 2018-08-16 17:03 | CP.PCM.PN ---
Subjective - Date & Time of Evaluation Date of Evaluation: 08/16/18 Time of Evaluation: 15:40 - Subjective Subjective: No abdominal pain. Ate lunch Objective - Vital Signs/Intake and Output Vital Signs (last 24 hours): Temp Pulse Resp BP Pulse Ox 97.6 F 81 18 116/81 100 08/16/18 13:10 08/16/18 13:10 08/16/18 13:10 08/16/18 13:10 08/16/18 13:10 - Medications Medications: Current Medications Carvedilol (Coreg) 6.25 mg PO Q12 [facility] Last Admin: 08/16/18 11:52 Dose: Not Given Clonazepam (Klonopin) 0.5 mg PO TID [facility] Last Admin: 08/16/18 13:59 Dose: 0.5 mg Clonidine HCl (Catapres-Tts2 0.2 Mg/24 Hr) 1 patch TD QWK [facility] Dextrose (Dextrose 50% Inj) 0 ml IV STAT PRN; Protocol PRN Reason: Hypoglycemia Protocol Last Admin: 08/15/18 06:24 Dose: 50 ml Dextrose (Glutose 15) 0 gm PO ONCE PRN; Protocol PRN Reason: Hypoglycemia Protocol Epoetin Mk (Procrit) 4,000 unit IV MWF [facility] Glucagon (Glucagen Diagnostic Kit) 0 mg IM STAT PRN; Protocol PRN Reason: Hypoglycemia Protocol Heparin Sodium (Porcine) (Heparin) 5,000 units SC Q12 [facility] Last Admin: 08/16/18 09:14 Dose: 5,000 units Hydroxyzine HCl (Atarax) 25 mg IM Q6H PRN PRN Reason: Agitation Last Admin: 08/13/18 14:52 Dose: 25 mg Insulin Aspart (Novolog Mix 70/30 (70/30 Units/Ml)) 20 units SC DAILY [facility] Last Admin: 08/16/18 09:14 Dose: 20 units Insulin Aspart (Novolog Mix 70/30 (70/30 Units/Ml)) 5 units SC HS [facility] Insulin Aspart (Novolog) 0 unit SC Q4 [facility]; Protocol Losartan Potassium (Cozaar) 12.5 mg PO DAILY [facility] Last Admin: 08/14/18 10:52 Dose: 12.5 mg Metoclopramide HCl (Reglan) 5 mg IVP Q6 PRN PRN Reason: Nausea/Vomiting Last Admin: 08/13/18 10:37 Dose: 5 mg Ondansetron HCl (Zofran Inj) 4 mg IVP Q6 PRN PRN Reason: Nausea/Vomiting Last Admin: 08/13/18 17:21 Dose: 4 mg Pantoprazole Sodium (Protonix Ec Tab) 40 mg PO DAILY [facility] Last Admin: 08/16/18 09:15 Dose: 40 mg Paricalcitol (Zemplar) 4 mcg IV MWF [facility] Last Admin: 08/16/18 11:28 Dose: 4 mcg Quetiapine Fumarate (Seroquel) 100 mg PO HS [facility] Last Admin: 08/15/18 22:01 Dose: 100 mg Quetiapine Fumarate (Seroquel) 50 mg PO TID [facility] Last Admin: 08/16/18 13:59 Dose: 50 mg Sertraline HCl (Zoloft) 50 mg PO DAILY [facility] Last Admin: 08/16/18 09:15 Dose: 50 mg - Labs Labs: 08/16/18 09:52 08/16/18 09:52 APTT 28.0 SECONDS (21-34) 08/11/18 09:26 - Constitutional Appears: Well, No Acute Distress - Head Exam Head Exam: NORMOCEPHALIC - Respiratory Exam Respiratory Exam: NORMAL BREATHING PATTERN - Cardiovascular Exam Cardiovascular Exam: REGULAR RHYTHM - GI/Abdominal Exam GI & Abdominal Exam: Soft. absent: Tenderness Assessment and Plan (1) Abdominal pain Assessment & Plan: Clinically improved Would limit use of Reglan Status: Acute
[2018-08-16] MEDS: (Novolog) Insulin Aspart, Recombinant 100 u/ml 10 ml vial SC SCH ×2 (17:04→21:53)
[2018-08-16 18:10] VITALS: RESP 20; O2SAT 98
[2018-08-16] MEDS ORDERED: (Novolog Mix 70/30) Insulin Aspart/Insulin Aspar 100 units/ml SC SCH (22:00)
[2018-08-17] MEDS ORDERED: (Novolin R) Insulin Human Regular 100 units/ml vial SC SCH
[2018-08-17] MEDS: (Novolog) Insulin Aspart, Recombinant 100 u/ml 10 ml vial SC SCH ×4 (02:31→10:08)
[2018-08-17 07:46] VITALS: BP 178/109; PULSE 75; TEMP 98.2
--- NOTE | 2018-08-17 09:01 | CP.PCM.PN ---
Subjective - Date & Time of Evaluation Date of Evaluation: 08/17/18 Time of Evaluation: 09:50 - Subjective Subjective: Nephro Progress Note for Dr. Nieves Service Oracio Nash DO, PGY-3 IM Patient seen and examined at bedside. Resting comfortably in bed, denies further emesis, complaining that can't rest because staff keeps waking her. Knows to remain NPO due to pending AVF procedure, pending discharge home after. Addendum: Patient caught eating an applesauce by primary team, agitated and abusive to staff when stopped and reminded of NPO, complaining that she only ate "a little." AVF procedure canceled, patient discharged, can follow up as ou tpatient for procedure. Objective - Vital Signs/Intake and Output Vital Signs (last 24 hours): Temp Pulse Resp BP Pulse Ox 98.2 F 75 20 178/109 H 98 08/17/18 07:45 08/17/18 07:45 08/17/18 07:45 08/17/18 07:45 08/17/18 07:45 - Medications Medications: Current Medications Carvedilol (Coreg) 6.25 mg PO Q12 [facility] Last Admin: 08/16/18 21:53 Dose: 6.25 mg Clonazepam (Klonopin) 0.5 mg PO TID [facility] Last Admin: 08/16/18 18:35 Dose: 0.5 mg Clonidine HCl (Catapres-Tts2 0.2 Mg/24 Hr) 1 patch TD QWK [facility] Dextrose (Dextrose 50% Inj) 0 ml IV STAT PRN; Protocol PRN Reason: Hypoglycemia Protocol Last Admin: 08/15/18 06:24 Dose: 50 ml Dextrose (Glutose 15) 0 gm PO ONCE PRN; Protocol PRN Reason: Hypoglycemia Protocol Epoetin Mk (Procrit) 4,000 unit IV MWF [facility] Glucagon (Glucagen Diagnostic Kit) 0 mg IM STAT PRN; Protocol PRN Reason: Hypoglycemia Protocol Heparin Sodium (Porcine) (Heparin) 5,000 units SC Q12 [facility] Last Admin: 08/16/18 21:53 Dose: 5,000 units Hydroxyzine HCl (Atarax) 25 mg IM Q6H PRN PRN Reason: Agitation Last Admin: 08/13/18 14:52 Dose: 25 mg Insulin Aspart (Novolog Mix 70/30 (70/30 Units/Ml)) 20 units SC DAILY [facility] Last Admin: 08/16/18 09:14 Dose: 20 units Insulin Aspart (Novolog Mix 70/30 (70/30 Units/Ml)) 5 units SC HS [facility] Last Admin: 08/16/18 21:54 Dose: 5 unit Insulin Aspart (Novolog) 0 unit SC Q4 [facility]; Protocol Last Admin: 08/17/18 08:15 Dose: Not Given Losartan Potassium (Cozaar) 12.5 mg PO DAILY [facility] Last Admin: 08/14/18 10:52 Dose: 12.5 mg Metoclopramide HCl (Reglan) 5 mg IVP Q6 PRN PRN Reason: Nausea/Vomiting Last Admin: 08/13/18 10:37 Dose: 5 mg Ondansetron HCl (Zofran Inj) 4 mg IVP Q6 PRN PRN Reason: Nausea/Vomiting Last Admin: 08/13/18 17:21 Dose: 4 mg Pantoprazole Sodium (Protonix Ec Tab) 40 mg PO DAILY [facility] Last Admin: 08/16/18 09:15 Dose: 40 mg Paricalcitol (Zemplar) 4 mcg IV MWF [facility] Last Admin: 08/16/18 11:28 Dose: 4 mcg Quetiapine Fumarate (Seroquel) 100 mg PO HS [facility] Last Admin: 08/16/18 21:53 Dose: 100 mg Quetiapine Fumarate (Seroquel) 50 mg PO TID [facility] Last Admin: 08/16/18 18:35 Dose: 50 mg Sertraline HCl (Zoloft) 50 mg PO DAILY [facility] Last Admin: 08/16/18 09:15 Dose: 50 mg - Labs Labs: 08/16/18 09:52 08/16/18 09:52 APTT 28.0 SECONDS (21-34) 08/11/18 09:26 - Additional Findings Additional findings: - Constitutional Appears: Chronically Ill, No acute distress - Head Exam Head Exam: ATRAUMATIC, NORMOCEPHALIC - Eye Exam Eye Exam: Normal appearance. absent: Conjunctival injection, Scleral icterus - ENT Exam Moist mucous membranes - Respiratory Exam CTAB, no wheezes/rales/ronchi, no tachypnea, taking normal deep breaths - Cardiovascular Exam Cardiovascular Exam: RRR, +S1, +S2. absent: Bradycardia, Tachycardia, Irregular Rhythm, JVD - GI/Abdominal Exam Exam limited due to patient refusing abdominal exam, soft, normal bowel sounds appreciateda - Extremities Exam Extremities exam: Positive for: normal capillary refill, normal inspection, pedal pulses present. 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 Nephro was consulted for continuation of HD. Plan: 1) IDDM 2) diabetic gastroparesis 3) ESRD on HD (MWF) 4) Seizures/Pseudoseizures 5) Conversion disorder +/- Factitious disorder 6) Mild leukocytosis -S/p HD yesterday, continue MWF regimen after discharge -Continue current BP control regimen -Given extensive anxiety/agitation, pain seeking behavior, and self-harming behavior (inducing self-emesis), believe that this patient would benefit greatly from Psych eval and recs -AVF procedure canceled due to patient non-compliance with NPO, to be discharged today, can follow up as outpatient to obtain AVF procedure. Patient reviewed and discussed with attending, Dr. Nieves.
[2018-08-17] MEDS: Pantoprazole 40 mg EC Tab PO SCH (09:42)
--- NOTE | 2018-08-17 10:52 | CP.PCM.DIS ---
Provider - Provider Date of Admission: 08/12/18 16:41 Attending physician: Reza King Jr, MD Consults: 08/10/18 14:09 Nephrology Consult Routine Comment: Consulting Provider: Migue Nieves Consulting Physician: Migue Nieves Reason for Consult: ESRD on HD MWF 08/10/18 14:10 Psychiatry Consult Routine Comment: Consulting Provider: Jomar Mckeon Consulting Physician: Jomar Mckeon Reason for Consult: anxiety, depression, factious disorder 08/11/18 10:26 Gastroenterology Consult Routine Comment: Consulting Provider: Porfirio Murphy Consulting Physician: Porfirio Murphy Reason for Consult: gastroparesis, type 1 dm 08/16/18 14:45 General Surgery Consult Routine Comment: Consulting Provider: Tawanda Hines Jr. Consulting Physician: Tawanda Hines Jr. Reason for Consult: AVF for HD pt Time Spent in preparation of Discharge (in minutes): 41 Hospital Course - Lab Results Lab Results: Most Recent Lab Values WBC 5.9 K/uL (4.8-10.8) 08/16/18 09:52 RBC 3.83 Mil/uL (3.80-5.20) 08/16/18 09:52 Hgb 10.1 g/dL (11.0-16.0) L 08/16/18 09:52 Hct 31.7 % (34.0-47.0) L 08/16/18 09:52 MCV 82.7 fL (81.0-99.0) 08/16/18 09:52 MCH 26.4 pg (27.0-31.0) L 08/16/18 09:52 MCHC 31.9 g/dL (33.0-37.0) L 08/16/18 09:52 RDW 18.4 % (11.5-14.5) H 08/16/18 09:52 Plt Count 250 K/uL (130-400) 08/16/18 09:52 MPV 10.0 fL (7.2-11.7) 08/16/18 09:52 Neut % (Auto) 53.5 % (50.0-75.0) 08/16/18 09:52 Lymph % (Auto) 32.2 % (20.0-40.0) 08/16/18 09:52 [place] % (Auto) 7.0 % (0.0-10.0) 08/16/18 09:52 Eos % (Auto) 6.1 % (0.0-4.0) H 08/16/18 09:52 Baso % (Auto) 1.2 % (0.0-2.0) 08/16/18 09:52 Neut # (Auto) 3.1 K/uL (1.8-7.0) 08/16/18 09:52 Lymph # (Auto) 1.9 K/uL (1.0-4.3) 08/16/18 09:52 [place] # (Auto) 0.4 K/uL (0.0-0.8) 08/16/18 09:52 Eos # (Auto) 0.4 K/uL (0.0-0.7) 08/16/18 09:52 Baso # (Auto) 0.1 K/uL (0.0-0.2) 08/16/18 09:52 APTT 28.0 SECONDS (21-34) 08/11/18 09:26 pO2 197 mm/Hg (30-55) H 08/10/18 11:43 VBG pH 7.55 (7.32-7.43) H 08/10/18 11:43 VBG pCO2 29 mmHg (40-60) L 08/10/18 11:43 VBG HCO3 28.0 mmol/L 08/10/18 11:43 VBG Total CO2 26.3 mmol/L (22-28) 08/10/18 11:43 VBG O2 Sat (Calc) 97.9 % (40-65) H 08/10/18 11:43 VBG Base Excess 3.8 mmol/L (0.0-2.0) H 08/10/18 11:43 VBG Potassium 3.7 mmol/L (3.6-5.2) 08/10/18 11:43 Sodium 137.0 mmol/l (132-148) 08/10/18 11:43 Chloride 102.0 mmol/L (98-107) 08/10/18 11:43 Glucose 204 mg/dl (65-105) H 08/10/18 11:43 Lactate 1.6 mmol/L (0.7-2.1) 08/10/18 11:43 Sodium 133 mmol/L (132-148) 08/16/18 09:52 Potassium 4.6 mmol/L (3.6-5.2) 08/16/18 09:52 Chloride 100 mmol/L (98-107) 08/16/18 09:52 Carbon Dioxide 23 mmol/L (22-30) 08/16/18 09:52 Anion Gap 14 (10-20) 08/16/18 09:52 BUN 30 mg/dL (7-17) H 08/16/18 09:52 Creatinine 5.6 mg/dL (0.7-1.2) H 08/16/18 09:52 Est GFR ( Amer) 11 08/16/18 09:52 Est GFR (Non-Af Amer) 9 08/16/18 09:52 POC Glucose (mg/dL) 381 mg/dL (65-110) H 08/17/18 09:57 Random Glucose 450 mg/dL (65-105) H* D 08/16/18 09:52 Calcium 8.2 mg/dl (8.6-10.4) L 08/16/18 09:52 Phosphorus 3.9 mg/dL (2.5-4.5) 08/16/18 09:52 Magnesium 2.1 mg/dL (1.6-2.3) 08/16/18 09:52 Total Bilirubin 0.1 mg/dL (0.2-1.3) L 08/16/18 09:52 AST 15 U/L (14-36) 08/16/18 09:52 ALT 16 U/L (9-52) 08/16/18 09:52 Alkaline Phosphatase 133 U/L (38-126) H D 08/16/18 09:52 Total Protein 5.5 g/dL (6.3-8.3) L 08/16/18 09:52 Albumin 3.0 g/dL (3.5-5.0) L 08/16/18 09:52 Globulin 2.5 gm/dL (2.2-3.9) 08/16/18 09:52 Albumin/Globulin Ratio 1.2 (1.0-2.1) 08/16/18 09:52 Lipase 152 U/L (23-300) 08/10/18 11:57 Beta HCG, Quant < 2.39 mIU/ML 08/10/18 11:57 Venous Blood Potassium 3.7 mmol/L (3.6-5.2) 08/10/18 11:43 Urine HCG, Qual Negative (NEGATIVE) 08/17/18 10:11 - Hospital Course Hospital Course: Upon Admission 28 year old female with past medical history of uncontrolled diabetes, diabetic gastroparesis, ESRD on HD (MWF), and pseudoseizures was brought in by her mother and life trainer for intractable vomiting and abdominal pain started this morning. This is patient is well known to our service. She multiple admission in the past for the similar complaints. She was last discharged on 08/08/18. Patient describes her vomitus has been nonbilious with slight streaks of blood and there were no clots. Her abdominal pain is located in the periumbilical region. She describes the pain has sharp and non radiating. The pain is constant and nothing makes the pain worse or better. Patient went for HD yesterday and reports to be compliant with her medications. Unable to obtain detail ROS due to patient's agitation. Hospital Course 28 yo female admitted for intractable nausea/vomiting. Patient was inducing vomiting through hospital stay. Patient was treated with Zofran IV, Avasys, Reglan for possible diabetic gastroparesis. AvaSys confirmed patient was inducing vomiting. Patient's blood sugars had spikes above 350 and became low as well because patient was NPO due to her induction of vomitus. Patient was treated with Ativan and Dilaudid as a trade off for sedation while psych was consulted. Psych started Zoloft and Seroquel for depression and agitated behavior with klonopin PRN. Patient was ordered for gastric emptying study but patient refused at last moment because she complained of nausea. Patient then requested her AVF to be revised during hospital stay however patient did not follow NPO instructions. Surgery was cancelled as patient did not follow NPO instructions. Discharge Plan 1. Patient is stable for discharge to home as per Dr. King 2. Patient will be discharged with home medications as reconciled but not the insulin regimen in the hospital. Patient will continue home insulin management. 3. Patient will need to follow up with Dr. King, Dr. Nieves, and Dr. Mckeon within a week of discharge from hospital. 4. Patient should return to hospital if symptoms worsen or recur. 5. Patient understands the plan as above and agrees. Disclaimer: Above is synopsis of patient's current hospital admission. For full report refer to EMR. Discharge Exam - Head Exam Head Exam: NORMAL INSPECTION, NORMOCEPHALIC - Eye Exam Eye Exam: EOMI, Normal appearance. absent: Nystagmus, Scleral icterus - ENT Exam ENT Exam: Mucous Membranes Dry - Respiratory Exam Respiratory Exam: NORMAL BREATHING PATTERN. absent: Rhonchi, Wheezes, Respiratory Distress - Cardiovascular Exam Cardiovascular Exam: REGULAR RHYTHM, +S1, +S2. absent: Tachycardia - GI/Abdominal Exam GI & Abdominal Exam: Normal Bowel Sounds, Soft. absent: Diminished Bowel Sounds , Distended, Firm, Guarding, Tenderness - Extremities Exam Extremities exam: normal inspection - Neurological Exam Neurological exam: Alert, CN II-XII Intact, Oriented x3 - Psychiatric Exam Psychiatric exam: Normal Affect, Normal Mood - Skin Skin Exam: Dry, Intact, Normal Color Discharge Plan - Discharge Medications Prescriptions: Carvedilol [Coreg] 6.25 mg PO Q12 #60 tab cloNIDine 0.2 mg/24 hr [catapres-TTS2 0.2 mg/24 hr] 1 patch TD QWK #7 patch Insulin Aspart/Insulin Aspar [Novolog Mix 70/30 (70/30 units/ml)] 20 units SC DAILY #1 vial Insulin Aspart/Insulin Aspar [Novolog Mix 70/30 (70/30 units/ml)] 10 units SC HS #1 vial Losartan Potassium 1 tab PO DAILY #30 tablet QUEtiapine [SEROquel] 50 mg PO TID #90 tab Sertraline [Zoloft] 50 mg PO DAILY #30 tab - Follow Up Plan Condition: STABLE Disposition: HOME/ ROUTINE Instructions: Diabetes Exchange Diet, Carbohydrate Counting Diet, Diabetes Diet , Gastroparesis (Delayed Gastric Emptying) (DC), End Stage Kidney Disease (DC), Renal Failure Diet (DC), Abdominal Pain (ED) Additional Instructions: 1. Patient is stable for discharge to home as per Dr. King 2. Patient will be discharged with home medications as reconciled but not the insulin regimen in the hospital. Patient will continue home insulin management. 3. Patient will need to follow up with Dr. King, Dr. Nieves, and Dr. Mckeon within a week of discharge from hospital. 4. Patient should return to hospital if symptoms worsen or recur. 5. Patient understands the plan as above and agrees. Referrals: Jomar Mckeon MD [Staff Provider] - Migue Nieves MD [Staff Provider] -
[2018-08-18] MEDS ORDERED: EPOETIN ALFA 4,000 UNIT/ML ML Dialysis IV SCH (09:00)
== END 2018-08-17 11:32 | disposition home or self-care (01) | DRG 18 ==
LOC: C.ER 11:32 → C.6T 12:53 → OBSVTOIN 08-12 16:41
PROVIDERS: ADMIT Internal Medicine; ATTEND Internal Medicine
PROC: 5A1D70Z Performance of Urinary Filtration, Intermittent, Less than 6 Hours Per Day (ICD-10-PCS; principal; 2018-08-13)
PROC: 5A1D70Z Performance of Urinary Filtration, Intermittent, Less than 6 Hours Per Day (ICD-10-PCS; 2018-08-16)
DX: E11.43 Type 2 diabetes mellitus with diabetic autonomic (poly)neuropathy (principal); N18.6 End stage renal disease; I12.0 Hypertensive chronic kidney disease with stage 5 chronic kidney disease or end stage renal disease; F11.20 Opioid dependence, uncomplicated; R44.3 Hallucinations, unspecified; K31.84 Gastroparesis; F44.5 Conversion disorder with seizures or convulsions; E11.22 Type 2 diabetes mellitus with diabetic chronic kidney disease; N25.81 Secondary hyperparathyroidism of renal origin; F41.1 Generalized anxiety disorder; K29.70 Gastritis, unspecified, without bleeding; F32.9 Major depressive disorder, single episode, unspecified; F05 Delirium due to known physiological condition; E11.649 Type 2 diabetes mellitus with hypoglycemia without coma; F60.9 Personality disorder, unspecified; D63.1 Anemia in chronic kidney disease; M89.9 Disorder of bone, unspecified; Z53.09 Procedure and treatment not carried out because of other contraindication; Z96.41 Presence of insulin pump (external) (internal); Z79.4 Long term (current) use of insulin; Z87.891 Personal history of nicotine dependence; Z90.49 Acquired absence of other specified parts of digestive tract; Z79.899 Other long term (current) drug therapy; Z99.2 Dependence on renal dialysis

== ENCOUNTER 2018-08-18 19:55 | Inpatient (IN) | payer MEDICAID ==
[2018-08-18 19:56] VITALS: BMI 23.3
[2018-08-18] MEDS ORDERED: Sodium Chloride 0.9% 1,000 ML IV ONE (21:40)
--- NOTE | 2018-08-18 22:15 | C.PDOC ---
History Of Present Illness 28 year old female with Hx of diabetes, ESRD on dialysis, gastroparesis, and intractable vomiting, discharged yesterday from the hospital, was given her medication this morning by her mother, began having abdominal pain and vomiting again today. Patient was unable to be dialyzed today due to intractable pain and vomiting so dialysis sent her to the ER. In the ER patient is screaming, crying, wretching, having pseudoseizure. Denies fever or chills. Time Seen by Provider: 08/18/18 21:03 Chief Complaint (Nursing): Seizure History Per: Patient History/Exam Limitations: no limitations Recent Seizure Activity Began: Just Before Arrival Recent travel outside of the [place]: No Past Medical History Reviewed: Historical Data, Nursing Documentation, Vital Signs Vital Signs: Last Vital Signs Temp 98.6 F 08/18/18 20:05 Pulse 121 H 08/18/18 20:05 Resp 28 H 08/18/18 20:05 BP 184/138 H 08/18/18 20:05 Pulse Ox 100 08/18/18 20:05 Primary Care Provider: Reza King Jr. - Medical History PMH: Anemia, Anxiety, Bronchitis, Depression, Diabetes, HTN, End Stage Renal Disease, Chronic Kidney Disease, Seizures (Pseudo seizures?) Denies: HIV Surgical History: Appendectomy, Endoscopy - [facility] (08/12/18) (02/23/18) BYPASS LEFT BRACHIAL ARTERY TO UPPER ARM VEIN, OPEN APPROACH (04/28/18) EXCISION OF STOMACH, ENDO, DIAGN (11/02/16) EXCISION OF STOMACH, PYLORUS, ENDO, DIAGN (03/10/17) FLUOROSCOPY OF RIGHT SUBCLAVIAN VEIN, GUIDANCE (01/16/18) GROUP PSYCHOTHERAPY (06/09/17) INDIVIDUAL PSYCHOTHERAPY, SUPPORTIVE (06/09/17) INSERT INFUSION DEV IN L EXT JUGULAR VEIN, PERC (05/29/18) INSERTION OF INFUSION DEV INTO L FEMOR VEIN, PERC APPROACH (02/23/18) INSERTION OF INFUSION DEV INTO L SUBCLAV VEIN, PERC APPROACH (10/28/16) INSERTION OF INFUSION DEV INTO R SUBCLAV VEIN, PERC APPROACH (01/16/18) INSERTION OF INFUSION DEV INTO SUP VENA CAVA, PERC APPROACH (11/23/17) INTRODUCTION OF NUTRITIONAL INTO PERIPH VEIN, PERC APPROACH (10/16/16) MEDICATION MANAGEMENT (06/09/17) ULTRASONOGRAPHY OF SUPERIOR VENA CAVA, GUIDANCE (10/16/16) Family History: States: Unknown Family Hx - Social History Hx Tobacco Use: No Hx Alcohol Use: No Hx Substance Use: No - Immunization History Hx Tetanus Toxoid Vaccination: No Hx Influenza Vaccination: Yes Hx Pneumococcal Vaccination: Yes Review Of Systems Constitutional: Negative for: Fever, Chills Cardiovascular: Negative for: Chest Pain, Palpitations Respiratory: Negative for: Cough, Shortness of Breath Gastrointestinal: Positive for: Vomiting, Abdominal Pain Neurological: Negative for: Weakness, Numbness Physical Exam - Physical Exam Appears: Non-toxic, Other (Actively forcing herself to vomit and spit up into emesis bag.) Skin: Normal Color, Warm Head: Atraumatic, Normacephalic Eye(s): bilateral: Normal Inspection Oral Mucosa: Moist Chest: Symmetrical, No Tenderness Cardiovascular: Rhythm Regular, Other (BP markedly elevated, tachycardic.) Respiratory: Normal Breath Sounds, No Rales, No Rhonchi, No Wheezing Gastrointestinal/Abdominal: Soft, Tenderness (diffuse upper), No Guarding, No Rebound Neurological/Psych: Oriented x3, Normal Speech ED Course And Treatment - Laboratory Results Result Diagrams: 08/18/18 22:53 O2 Sat by Pulse Oximetry: 100 (Room air) Pulse Ox Interpretation: Normal Progress Note: Unable to get IV line started, IM and PO meds given instead. Discussed with Dr. King who agrees to admit patient under his service. Disposition - Disposition Disposition: HOSPITALIZED Disposition Time: 23:05 Condition: FAIR - Clinical Impression Clinical Impression: Uncontrolled hypertension, ESRD (end stage renal disease) on dialysis, Vomiting, Diabetic gastroparesis - Scribe Statement The provider has reviewed the documentation as recorded by the Scribelvis Varela All medical record entries made by the Scribe were at my direction and personally dictated by me. I have reviewed the chart and agree that the record accurately reflects my personal performance of the history, physical exam, medical decision making, and the department course for this patient. I have also personally directed, reviewed, and agree with the discharge instructions and disposition.
--- NOTE | 2018-08-18 22:38 | CP.PCM.HP ---
History of Present Illness - History of Present Illness History of Present Illness: H&P Dr. King CC "Abdominal pain, intractable vomiting" HPI: Patient is a 28 year old female with past history of uncontrolled diabetes, diabetic gastroparesis, ESRD on HD (MWF), and pseudoseizures was brought in ambulance for intractable vomiting and abdominal pain and seizures started earlier today. She states that her abdominal pain has not changed from before, is diffusely located, sharp, constant without any aggravating or alleviating factors. She last went to hemodialysis on Thursday08/17/18 prior to her discharge from the hospital. She states she was unable to go to hemodialysis 08/18 because of her abdominal pain and vomiting. She describes her vomitus as nonbilious with bloody streaks. Patient has been here multiples times in the past for similar complaints and is well known to our service. She was discharged on 08/17/18 for similar complaints. Unable to obtain ROS since patient is very agitated in the room, requesting an IV line for pain medication. PMHx: DM type 1, diabetic gastroparesis, ESRD, pseudoseizures, anxiety, depression PSHx: appendectomy, AVF Allergies: NKDA Famhx: Maternal grandmother with unknown heart disease Social Hx: former smoker quit 6 years ago, denies tobacco and alcohol use Meds: see MAR Present on Admission - Present on Admission Any Indicators Present on Admission: No Review of Systems - Review of Systems Systems not reviewed;Unavailable: Uncooperative Past Patient History - Infectious Disease Hx of Infectious Diseases: None - Past Medical History & Family History Past Medical History?: Yes - Past Social History Smoking Status: Never Smoked - CARDIAC Hx Hypertension: Yes - PULMONARY Hx Bronchitis: Yes - NEUROLOGICAL Hx Seizures: Yes (Pseudo seizures?) - HEENT Hx HEENT Problems: Yes Hx Cataracts: Yes - RENAL Hx Chronic Kidney Disease: Yes - ENDOCRINE/METABOLIC Hx Endocrine Disorders: Yes Hx Diabetes Mellitus Type 2: Yes (on insulin pump) - HEMATOLOGICAL/ONCOLOGICAL Hx Anemia: Yes Hx Human Immunodeficiency Virus (HIV): No - INTEGUMENTARY Hx Dermatological Problems: No - MUSCULOSKELETAL/RHEUMATOLOGICAL Hx Musculoskeletal Disorders: No Hx Falls: No - GASTROINTESTINAL Hx Gastrointestinal Disorders: Yes (SEE COMMENT) Other/Comment: gastroparesis - GENITOURINARY/GYNECOLOGICAL Hx Genitourinary Disorders: No - PSYCHIATRIC Hx Anxiety: Yes Hx Depression: Yes Hx Substance Use: No - SURGICAL HISTORY Hx Appendectomy: Yes - ANESTHESIA Hx Anesthesia: Yes Hx Anesthesia Reactions: No Hx Malignant Hyperthermia: No Meds Allergies/Adverse Reactions: Allergies Allergy/AdvReac Type Severity Reaction Status Date / Time No Known Allergies Allergy Verified 08/18/18 20:15 Physical Exam - Constitutional Appears: Agitated Additional comments: Patient is agitated, screaming for pain medication and for an IV line, spitting up clear saliva in bucket. - Head Exam Head Exam: ATRAUMATIC, NORMOCEPHALIC - Eye Exam Eye Exam: EOMI, PERRL - ENT Exam ENT Exam: Mucous Membranes Dry - Neck Exam Neck exam: Positive for: Full Rom. Negative for: Tenderness - Respiratory Exam Respiratory Exam: Clear to Auscultation Bilateral, NORMAL BREATHING PATTERN. absent: Rales, Rhonchi, Wheezes, Stridor Additional comments: Right chest permacath intact - Cardiovascular Exam Cardiovascular Exam: Tachycardia, +S1, +S2. absent: Gallop, Rubs, Systolic Murmur - GI/Abdominal Exam GI & Abdominal Exam: Normal Bowel Sounds, Soft, Tenderness (Patient screams in pain upon palpation of abdomen. ). absent: Distended, Firm, Guarding, Hernia, Rebound, Rigid - Rectal Exam Rectal Exam: Deferred - Extremities Exam Extremities exam: Positive for: pedal pulses present. Negative for: calf tenderness, pedal edema - Back Exam Back exam: absent: CVA tenderness (L), CVA tenderness (R), rash noted - Neurological Exam Neurological exam: Alert, CN II-XII Intact, Oriented x3 Additional comments: Patient is agitated. Intermittently has episodes of diffuse shaking of arms and legs, however immediately wakes up 2 to 3 seconds later, asking what happened to her. Not noted to have any biting of her tongue. Patient remains alert and able to follow commands within 2 seconds after episodes of shaking, and immediately starts screaming asking for pain medication. Able to move arms and legs independently after episodes of shaking - Psychiatric Exam Psychiatric exam: Agitated - Skin Skin Exam: Dry, Intact, Warm Results - Vital Signs Recent Vital Signs: Last Vital Signs Temp 98.6 F 08/18/18 20:05 Pulse 121 H 08/18/18 20:05 Resp 28 H 08/18/18 20:05 BP 184/138 H 08/18/18 20:05 Pulse Ox 100 08/18/18 22:22 - Labs Result Diagrams: 08/18/18 22:53 08/18/18 22:45 Labs: Laboratory Results - last 24 hr 08/18/18 20:06 POC Glucose (mg/dL) 158 H Assessment & Plan - Assessment and Plan (Free Text) Assessment: 28 year old female who presents for intractable vomiting, abdominal pain and pseudoseizures. Plan: Intractable vomiting with abdominal pain, chronic Diabetic gastroparesis vs. psychogenic causes Reglan 5mg IV Q6 PRN Zofran 4mg Q6 PRN Protonix 40mg NPO given patient is vomiting Anxiety/Depression/pseudoseizure, chronic Seroquel 50mg PO TID Seroquel 100mg PO HS Klonopin 0.5mg PO TID Atarax 25mg Q6 PRN Type 2 DM, chronic Glucose 206 Novolog 20 units SC daily Novolog 10 HS GABRIELLE Hypoglycemic treatment protocol Beta hydroxybutyrate pending ESRD on HD MWF Last session on 08/17, missed 08/18 session Phosphorous low at 1.0, repleted with 7mmol KPhos Creatinine 6.1 Dr. Nieves consulted, help appreciated AVF revision was not done during last admission NS IV fluids given Hypertension, chronic Clonidine 0.2mg TD weekly Losartan 25mg PO daily Coreg 6.25mg PO BID In ED, patient had elevated blood pressure in 200s. Losartan 25mg PO once - patient vomited it up Lopressor 5mg IV x2 given with improvement of BP to 158 systolic Clonidine patch applied. Enalapril given as per Nephro Prophylaxis Heparin 5000 units SC Protonix NPO Case discussed with Dr. Christine Larkin, PGY1
[2018-08-18 22:57] LABS: BASO # 0.1 K/uL (0.0-0.2); BASO % 0.8 % (0.0-2.0); LYMPH # 1.4 K/uL (1.0-4.3); LYMPH % 9.2 % (20.0-40.0); MEAN CELL VOLUME 79.4 fL (81.0-99.0); MEAN CORPUSCULAR HEMOGLOBIN 25.6 pg (27.0-31.0); MEAN CORPUSCULAR HGB CONC 32.2 g/dL (33.0-37.0); MEAN PLATELET VOLUME 9.4 fL (7.2-11.7); MONO # 0.2 K/uL (0.0-0.8); MONO % 1.2 % (0.0-10.0); NEUT # 13.3 K/uL (1.8-7.0); NEUT % 88.8 % (50.0-75.0); NRBC % 0.1 % (0.0-2.0); PLATELET COUNT 341 K/uL (130-400); RBC 5.21 Mil/uL (3.80-5.20); RED CELL DISTRIBUTION WIDTH 18.3 % (11.5-14.5)
[2018-08-18] MEDS ORDERED: Glucagon Recombinant 1 mg Inj IM PRN (22:57)
[2018-08-18] MEDS ORDERED: Dextrose 50% SYRINGE Inj (50 ml) IV PRN (22:57)
[2018-08-18 23:02] LABS: HEMOGLOBIN 13.3 g/dL (11.0-16.0)
[2018-08-18 23:07] LABS: INR 0.9
[2018-08-18] MEDS ORDERED: Metoprolol 1 mg/ml Inj IVP ONE (23:11)
[2018-08-18 23:14] LABS: ALB/GLOB RATIO 1.2 (1.0-2.1); ALBUMIN 4.7 g/dL (3.5-5.0); CALCIUM 11.1 mg/dl (8.6-10.4)
[2018-08-18 23:18] LABS: PROTHROMBIN TIME 9.8 SECONDS (9.7-12.2)
[2018-08-18] MEDS ORDERED: Metoprolol 1 mg/ml Inj ONE (23:19)
[2018-08-18 23:36] LABS: BASOPHIL 1 % (0-2); LYMPHOCYTE 6 % (20-40); MONOCYTE 1 % (0-10); NEUTROPHIL 92 % (50-75); TOTAL CELLS COUNTED 100
[2018-08-18 23:37] LABS: ANISOCYTOSIS SLIGHT; HYPOCHROMIC SLIGHT; MICROCYTOSIS SLIGHT; POIKILOCYTOSIS SLIGHT
[2018-08-18 23:38] LABS: TARGET CELLS SLIGHT
[2018-08-19] MEDS ORDERED: POTASSIUM PHOSPHATE IVPB ONE (00:19)
[2018-08-19] MEDS ORDERED: SODIUM CHLORIDE IVPB ONE (00:19)
[2018-08-19] MEDS ORDERED: Metoprolol 1 mg/ml Inj IVP ONE (00:59)
[2018-08-19 01:52] LABS: PLATELET ESTIMATE NORMAL (NORMAL)
[2018-08-19] MEDS ORDERED: Sodium Chloride 0.9% 250 ML IV ONE (01:54)
[2018-08-19] MEDS ORDERED: Enalaprilat 2.5 MG/2 ML IV ONE (01:56)
[2018-08-19] MEDS: Sodium Chloride 0.9% 1,000 ML IV SCH ×3 (03:03→21:07)
[2018-08-19] MEDS: hydrOXYzine HCl 25 mg/ml Inj IM PRN ×2 (05:19→18:19)
--- NOTE | 2018-08-19 06:48 | CP.PCM.CON ---
<Oracio Nash - Last Filed: 08/19/18 16:53> History of Present Illness - History of Present Illness History of Present Illness: Nephro Consult Note for Dr. 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 Nephro was consulted for continuation of HD. ROS/HPI limited this AM as patient somnolent at time of exam (received IM Atarax approx 2hr prior to exam). As per charting, presented for intractable vomiting, unable to tolerate PO intake including meds, was unable to go to HD session yesterday due to symptoms. Patient does admit to missing session yesterday. As per ED, complaining of pain, specifically asking for IV access for IV meds, had another pseudoseizure. Further reported emesis overnight. Denies chest pain and shortness of breath at time of exam this AM. Later in day, threw self to floor while being transported, became "unresponsive" for few seconds, then returned to normal mentation without appreciable post-icta l state; then crying desperately asking for pain meds/ativan. Had been pending a midline but had a pseudoseizure during and emesis during a second attempt, so no access gained. Thorazine x1 given by primary team. PMH: as above PHS: appendectomy, AV [facility] Fam Hx: Heart disease Soc Hx: Denies alcohol/tobacco/drug use Review of Systems - Review of Systems Systems not reviewed;Unavailable: Other (sedate from medications, later hy sterical and unable to have clear conversation) Past Patient History - Infectious Disease Hx of Infectious Diseases: None - Past Medical History & Family History Past Medical History?: Yes - Past Social History Smoking Status: Never Smoked - CARDIAC Hx Hypertension: Yes - PULMONARY Hx Bronchitis: Yes - NEUROLOGICAL Hx Seizures: Yes (Pseudo seizures?) - HEENT Hx HEENT Problems: Yes Hx Cataracts: Yes - RENAL Hx Chronic Kidney Disease: Yes - ENDOCRINE/METABOLIC Hx Endocrine Disorders: Yes Hx Diabetes Mellitus Type 2: Yes (on insulin pump) - HEMATOLOGICAL/ONCOLOGICAL Hx Anemia: Yes Hx Human Immunodeficiency Virus (HIV): No - INTEGUMENTARY Hx Dermatological Problems: No - MUSCULOSKELETAL/RHEUMATOLOGICAL Hx Musculoskeletal Disorders: No Hx Falls: No - GASTROINTESTINAL Hx Gastrointestinal Disorders: Yes (SEE COMMENT) Other/Comment: gastroparesis - GENITOURINARY/GYNECOLOGICAL Hx Genitourinary Disorders: No - PSYCHIATRIC Hx Anxiety: Yes Hx Depression: Yes Hx Substance Use: No - SURGICAL HISTORY Hx Appendectomy: Yes - ANESTHESIA Hx Anesthesia: Yes Hx Anesthesia Reactions: No Hx Malignant Hyperthermia: No Meds Allergies/Adverse Reactions: Allergies Allergy/AdvReac Type Severity Reaction Status Date / Time No Known Allergies Allergy Verified 08/18/18 20:15 - Medications Medications: Current Medications Carvedilol (Coreg) 6.25 mg PO BID [facility] Clonazepam (Klonopin) 0.5 mg PO TID [facility] Last Admin: 08/18/18 23:13 Dose: Not Given Clonidine HCl (Catapres-Tts2 0.2 Mg/24 Hr) 1 patch TD Q7D@1000 [facility] Last Admin: 08/18/18 23:03 Dose: 1 patch Dextrose (Dextrose 50% Inj) 0 ml IV STAT PRN; Protocol PRN Reason: Hypoglycemia Protocol Dextrose (Glutose 15) 0 gm PO ONCE PRN; Protocol PRN Reason: Hypoglycemia Protocol Glucagon (Glucagen Diagnostic Kit) 0 mg IM STAT PRN; Protocol PRN Reason: Hypoglycemia Protocol Heparin Sodium (Porcine) (Heparin) 5,000 units SC Q8 [facility] Last Admin: 08/19/18 06:37 Dose: 5,000 units Hydroxyzine HCl (Atarax) 25 mg IM Q6H PRN PRN Reason: Agitation Last Admin: 08/19/18 05:19 Dose: 25 mg Dextrose (Dextrose 5% In Water 1000 Ml) 1,000 mls @ 0 mls/hr IV .Q0M PRN; Protocol PRN Reason: Hypoglycemia Protocol Sodium Chloride (Sodium Chloride 0.9%) 1,000 mls @ 100 mls/hr IV .Q10H [facility] Last Admin: 08/19/18 03:03 Dose: 100 mls/hr Insulin Aspart (Novolog Mix 70/30 (70/30 Units/Ml)) 20 units SC DAILY [facility] Insulin Human Regular (Novolin R) 0 unit SC ACHS [facility]; Protocol Last Admin: 08/19/18 06:31 Dose: 6 unit Losartan Potassium (Cozaar) 25 mg PO ONCE ONE Stop: 08/19/18 22:41 Metoclopramide HCl (Reglan) 5 mg IVP Q6 PRN PRN Reason: Nausea/Vomiting Ondansetron HCl (Zofran Inj) 4 mg IVP Q6 PRN PRN Reason: Nausea/Vomiting Quetiapine Fumarate (Seroquel) 50 mg PO TID [facility] Quetiapine Fumarate (Seroquel) 100 mg PO HS [facility] Physical Exam - Additional Findings Additional findings: - Constitutional Appears: Chronically Ill, Fatigued, Later agitated and hysterical - Head Exam Head Exam: ATRAUMATIC, NORMOCEPHALIC - Eye Exam Eye Exam: Normal appearance. absent: Conjunctival injection, Scleral icterus - ENT Exam Moist mucous membranes, later witnessed, producing clear/yellow emesis (no blood, no bile) - Respiratory Exam CTAB, no wheezes/rales/ronchi appreciated No chest wall tenderness - Cardiovascular Exam Cardiovascular Exam: Tachycardia, REGULAR RHYTHM, +S1, +S2. absent: Bradycardia, Irregular Rhythm, JVD - GI/Abdominal Exam GI & Abdominal Exam: Hyperactive Bowel Sounds, Non-rigid abdomen/not distended, not able to palpate further due to discomfort - Extremities Exam Extremities exam: Positive for: normal capillary refill, normal inspection, pedal pulses present. Negative for: calf tenderness, joint swelling, pedal edema, tenderness - Neurological Exam Additional comments: somnolent due to meds but arousable, follows some commands, minimal spontaneous movements of extremites noted - Psychiatric Exam Additional comments: sedate 2/2 meds, reported as severely anxious/agitated in ED prior to medication - Skin Skin Exam: Dry, Intact, Normal Color, Warm Results - Vital Signs Recent Vital Signs: Last Vital Signs Temp 98.8 F 08/19/18 00:54 Pulse 103 H 08/19/18 01:49 Resp 20 08/19/18 00:54 BP 173/131 H 08/19/18 03:35 Pulse Ox 97 08/19/18 00:54 - Labs Result Diagrams: 08/19/18 07:58 08/19/18 07:58 Labs: Laboratory Results - last 24 hr 08/18/18 08/18/18 08/18/18 20:06 22:45 22:53 WBC 15.0 H D RBC 5.21 H Hgb 13.3 D Hct 41.4 MCV 79.4 L D MCH 25.6 L MCHC 32.2 L RDW 18.3 H Plt Count 341 MPV 9.4 Neut % (Auto) 88.8 H Lymph % (Auto) 9.2 L Thurston % (Auto) 1.2 Eos % (Auto) 0.0 Baso % (Auto) 0.8 Neut # (Auto) 13.3 H Lymph # (Auto) 1.4 Thurston # (Auto) 0.2 Eos # (Auto) 0.0 Baso # (Auto) 0.1 Neutrophils % (Manual) 92 H Lymphocytes % (Manual) 6 L Monocytes % (Manual) 1 Basophils % (Manual) 1 Platelet Estimate Normal Hypochromasia (manual) Slight Poikilocytosis (manual Slight Anisocytosis (manual) Slight Microcytosis (manual) Slight Target Cells Slight PT INR APTT Sodium 142 Potassium 4.6 Chloride 100 Carbon Dioxide 21 L Anion Gap 25 H BUN 56 H Creatinine 6.1 H Est GFR ( Amer) 10 Est GFR (Non-Af Amer) 8 POC Glucose (mg/dL) 158 H Random Glucose 206 H D Calcium 11.1 H Phosphorus 1.0 L* Magnesium 2.7 H Total Bilirubin 0.4 AST 26 ALT 14 Alkaline Phosphatase 180 H D Total Protein 8.9 H Albumin 4.7 Globulin 4.1 H Albumin/Globulin Ratio 1.2 08/18/18 08/19/18 22:53 06:10 WBC RBC Hgb Hct MCV MCH MCHC RDW Plt Count MPV Neut % (Auto) Lymph % (Auto) Thurston % (Auto) Eos % (Auto) Baso % (Auto) Neut # (Auto) Lymph # (Auto) Thurston # (Auto) Eos # (Auto) Baso # (Auto) Neutrophils % (Manual) Lymphocytes % (Manual) Monocytes % (Manual) Basophils % (Manual) Platelet Estimate Hypochromasia (manual) Poikilocytosis (manual Anisocytosis (manual) Microcytosis (manual) Target Cells PT 9.8 INR 0.9 APTT 31.0 Sodium Potassium Chloride Carbon Dioxide Anion Gap BUN Creatinine Est GFR ( Amer) Est GFR (Non-Af Amer) POC Glucose (mg/dL) > 500 H* Random Glucose Calcium Phosphorus Magnesium Total Bilirubin AST ALT Alkaline Phosphatase Total Protein Albumin Globulin Albumin/Globulin Ratio Assessment & Plan - Assessment and Plan (Free Text) Assessment: This is a 28yo F with extensive PMH, including poorly controlled IDDM, diabetic gastroparesis, ESRD on HD (MWF), seizure activity, and 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 Nephro was consulted for continuation of HD. Plan: 1) poorly controlled IDDM 2) diabetic gastroparesis 3) ESRD on HD (MWF) 4) Seizures/Pseudoseizures 5) Conversion disorder vs Factitious disorder 6) Mild leukocytosis -Missed HD yesterday, will need to undergo today Given emesis x2 days, will add some fluids with HD today Consent to be obtained from Mother for HD, as patient hysterical at time of re-examination with attending, not in state to be able to consent herself -BG uncontrolled currently, now with anion gap, concern for developing DKA -Avoid morphine for pain control in ESRD pts given renal metabolites, low-dose diluadid preferable -Psych consulted given extensive difficulty keeping patient calm, new self harming attempts (throwing self on floor), appreciate their insight -BP acutely elevated but lack access, continue clonidine patch, consider nitro paste for further improvement given lack of access and NPO 2/2 emesis Patient reviewed and discussed with attending, Dr. Nieves. <Migue Nieves - Last Filed: 08/20/18 06:42> Meds - Medications Medications: Current Medications Carvedilol (Coreg) 6.25 mg PO BID [facility] Last Admin: 08/19/18 19:17 Dose: Not Given Clonazepam (Klonopin) 0.5 mg PO TID [facility] Last Admin: 08/19/18 19:17 Dose: Not Given Clonidine HCl (Catapres-Tts2 0.2 Mg/24 Hr) 1 patch TD Q7D@1000 [facility] Last Admin: 08/18/18 23:03 Dose: 1 patch Dextrose (Dextrose 50% Inj) 0 ml IV STAT PRN; Protocol PRN Reason: Hypoglycemia Protocol Dextrose (Glutose 15) 0 gm PO ONCE PRN; Protocol PRN Reason: Hypoglycemia Protocol Escitalopram Oxalate (Lexapro) 10 mg PO DAILY [facility] Last Admin: 08/19/18 13:15 Dose: Not Given Glucagon (Glucagen Diagnostic Kit) 0 mg IM STAT PRN; Protocol PRN Reason: Hypoglycemia Protocol Heparin Sodium (Porcine) (Heparin) 5,000 units SC Q8 [facility] Last Admin: 08/19/18 21:07 Dose: Not Given Hydroxyzine HCl (Atarax) 25 mg IM Q6H PRN PRN Reason: Agitation Last Admin: 08/20/18 03:17 Dose: 25 mg Dextrose (Dextrose 5% In Water 1000 Ml) 1,000 mls @ 0 mls/hr IV .Q0M PRN; Protocol PRN Reason: Hypoglycemia Protocol Sodium Chloride (Sodium Chloride 0.9%) 1,000 mls @ 100 mls/hr IV .Q10H [facility] Last Admin: 08/19/18 21:07 Dose: Not Given Insulin Human Regular (Novolin R) 0 unit SC Q4H [facility]; Protocol Last Admin: 08/20/18 03:14 Dose: Not Given Labetalol HCl (Trandate) 10 mg IV Q4H PRN PRN Reason: bp>180 Metoclopramide HCl (Reglan) 5 mg IVP Q6 PRN PRN Reason: Nausea/Vomiting Ondansetron HCl (Zofran Inj) 4 mg IVP Q6 PRN PRN Reason: Nausea/Vomiting Quetiapine Fumarate (Seroquel) 50 mg PO TID [facility] Last Admin: 08/19/18 19:17 Dose: Not Given Quetiapine Fumarate (Seroquel) 100 mg PO HS [facility] Last Admin: 08/19/18 21:07 Dose: Not Given Results - Vital Signs Recent Vital Signs: Last Vital Signs Temp 98.4 F 08/19/18 23:15 Pulse 110 H 08/19/18 23:15 Resp 20 08/19/18 23:15 BP 169/86 H 08/19/18 23:15 Pulse Ox 99 08/20/18 03:00 - Labs Result Diagrams: 08/19/18 07:58 08/19/18 07:58 Labs: Laboratory Results - last 24 hr 08/19/18 08/19/18 08/19/18 07:58 07:58 11:36 WBC 13.2 H RBC 4.02 Hgb 10.6 L D Hct 33.7 L MCV 84.0 D MCH 26.4 L MCHC 31.4 L RDW 18.7 H Plt Count 267 MPV 9.9 Neut % (Auto) 88.7 H Lymph % (Auto) 8.2 L Thurston % (Auto) 2.8 Eos % (Auto) 0.0 Baso % (Auto) 0.3 Neut # (Auto) 11.7 H Lymph # (Auto) 1.1 Thurston # (Auto) 0.4 Eos # (Auto) 0.0 Baso # (Auto) 0.0 Neutrophils % (Manual) 93 H Band Neutrophils % 1 Lymphocytes % (Manual) 5 L Monocytes % (Manual) 1 Platelet Estimate Normal Anisocytosis (manual) Slight Sodium 136 Potassium 5.2 Chloride 98 Carbon Dioxide 16 L Anion Gap 26 H BUN 61 H Creatinine 6.7 H Est GFR ( Amer) 9 Est GFR (Non-Af Amer) 7 POC Glucose (mg/dL) 393 H Random Glucose 590 H* D Calcium 9.2 Phosphorus 3.4 Magnesium 2.3 Total Bilirubin 0.6 AST 28 ALT 9 D Alkaline Phosphatase 106 Total Protein 6.6 Albumin 3.7 Globulin 2.9 Albumin/Globulin Ratio 1.3 B-Hydroxybutyrate 2.50 H 08/19/18 08/19/18 08/19/18 16:08 19:28 23:50 WBC RBC Hgb Hct MCV MCH MCHC RDW Plt Count MPV Neut % (Auto) Lymph % (Auto) Thurston % (Auto) Eos % (Auto) Baso % (Auto) Neut # (Auto) Lymph # (Auto) Thurston # (Auto) Eos # (Auto) Baso # (Auto) Neutrophils % (Manual) Band Neutrophils % Lymphocytes % (Manual) Monocytes % (Manual) Platelet Estimate Anisocytosis (manual) Sodium Potassium Chloride Carbon Dioxide Anion Gap BUN Creatinine Est GFR ( Amer) Est GFR (Non-Af Amer) POC Glucose (mg/dL) 267 H 257 H 432 H* Random Glucose Calcium Phosphorus Magnesium Total Bilirubin AST ALT Alkaline Phosphatase Total Protein Albumin Globulin Albumin/Globulin Ratio B-Hydroxybutyrate 08/20/18 03:13 WBC RBC Hgb Hct MCV MCH MCHC RDW Plt Count MPV Neut % (Auto) Lymph % (Auto) Thurston % (Auto) Eos % (Auto) Baso % (Auto) Neut # (Auto) Lymph # (Auto) Thurston # (Auto) Eos # (Auto) Baso # (Auto) Neutrophils % (Manual) Band Neutrophils % Lymphocytes % (Manual) Monocytes % (Manual) Platelet Estimate Anisocytosis (manual) Sodium Potassium Chloride Carbon Dioxide Anion Gap BUN Creatinine Est GFR ( Amer) Est GFR (Non-Af Amer) POC Glucose (mg/dL) 259 H Random Glucose Calcium Phosphorus Magnesium Total Bilirubin AST ALT Alkaline Phosphatase Total Protein Albumin Globulin Albumin/Globulin Ratio B-Hydroxybutyrate Attending/Attestation - Attestation I have personally seen and examined this patient.: Yes I have fully participated in the care of the patient.: Yes I have reviewed all pertinent clinical information: Yes Notes (Text): Patient seen and examined; I agree with the resident's note as above with the following additions/edits: 28 yo F w/ pmh of htn, diabetes with gastrparesis, multiple admissions with intractable vomiting, personality disorder with pain seeking behavior, self- induced vomiting and pseudo-seizures, and ESRD on HD (MWF, at [facility], under our outpatient service), admitted yet again for vomiting and after missing HD session; Patient again with odd behavior; was found lying on the floor at time of encounter; [employer] was called and patient started crying hysterically when I asked her what was going; otherwise appears euvolemic on exam but very hemoconcentrated on presentation with severely elevated BP; IVF ordered by us last night but unclear how much she actually received as IV access was lost; Patient's pain seeking behavior, anxiety, self-induced vomiting and now suicidal ideation remains difficult to address; recommendation was previously for voluntary psych admission but finding a facility that accepts HD patient remains a major nikia; Anemia of CKD, hgb at goal, will monitor; Hypertensive ESRD, currently only on clonidine patch due to vomiting and no IV access (mid-line was to be placed but then patient had another "fit' and so it was put off); Labs indicative of marked increased anion-gap metabolic acidosis, likely due to element of DKA along with renal failure, possible lactic acidosis (seen on previous admission); also high/normal potassium level; -Dialyzing today for mainly for clearance and correction of electrolyte abnormalities with no UF, actually giving back 1L NS as she is likely volume de pleted.
[2018-08-19] MEDS ORDERED: (Novolin R) Insulin Human Regular 100 units/ml vial SC SCH (07:30)
[2018-08-19 08:16] LABS: BASO % 0.3 % (0.0-2.0); LYMPH # 1.1 K/uL (1.0-4.3); LYMPH % 8.2 % (20.0-40.0); MEAN CORPUSCULAR HEMOGLOBIN 26.4 pg (27.0-31.0); MEAN CORPUSCULAR HGB CONC 31.4 g/dL (33.0-37.0); MEAN PLATELET VOLUME 9.9 fL (7.2-11.7); MONO # 0.4 K/uL (0.0-0.8); MONO % 2.8 % (0.0-10.0); NEUT # 11.7 K/uL (1.8-7.0); NEUT % 88.7 % (50.0-75.0); PLATELET COUNT 267 K/uL (130-400); RBC 4.02 Mil/uL (3.80-5.20); RED CELL DISTRIBUTION WIDTH 18.7 % (11.5-14.5); WHITE BLOOD COUNT 13.2 K/uL (4.8-10.8)
[2018-08-19 08:38] LABS: HEMOGLOBIN 10.6 g/dL (11.0-16.0)
[2018-08-19 08:49] LABS: ALB/GLOB RATIO 1.3 (1.0-2.1); ALBUMIN 3.7 g/dL (3.5-5.0); CALCIUM 9.2 mg/dl (8.6-10.4)
[2018-08-19 09:43] LABS: BANDS 1 % (0-2); LYMPHOCYTE 5 % (20-40); MONOCYTE 1 % (0-10); NEUTROPHIL 93 % (50-75); TOTAL CELLS COUNTED 100
[2018-08-19 09:45] LABS: ANISOCYTOSIS SLIGHT; PLATELET ESTIMATE NORMAL (NORMAL)
[2018-08-19] MEDS ORDERED: (Novolog Mix 70/30) Insulin Aspart/Insulin Aspar 100 units/ml SC SCH (10:00)
--- NOTE | 2018-08-19 11:06 | CP.PCM.PCO ---
Physician Communication Note - Physician Communication Note Physician Communication Note: Cleared from Nephro standpoint for Midline in non- AVF arm
--- NOTE | 2018-08-19 11:37 | CP.PCM.PN ---
Subjective - Date & Time of Evaluation Date of Evaluation: 08/19/18 Time of Evaluation: 11:43 - Subjective Subjective: Medicine Progress Note for Dr. King's service S/E at bedside Inducing vomiting at bedside as per Tamie and nursing staff Drinking only sugar based drinks although advised against due to her DM1 Admits to abdominal pain and requests IV access for pain meds Exhibiting severe drug addicted behavior Denies fevers, chills, chest pain, sob, constipation or diarrhea, and dysuria. Objective - Vital Signs/Intake and Output Vital Signs (last 24 hours): Temp Pulse Resp BP Pulse Ox 98.9 F 118 H 20 176/115 H 98 08/19/18 08:00 08/19/18 08:00 08/19/18 08:00 08/19/18 08:00 08/19/18 08:00 - Medications Medications: Current Medications Carvedilol (Coreg) 6.25 mg PO BID [facility] Last Admin: 08/19/18 10:08 Dose: Not Given Clonazepam (Klonopin) 0.5 mg PO TID [facility] Last Admin: 08/19/18 10:13 Dose: Not Given Clonidine HCl (Catapres-Tts2 0.2 Mg/24 Hr) 1 patch TD Q7D@1000 [facility] Last Admin: 08/18/18 23:03 Dose: 1 patch Dextrose (Dextrose 50% Inj) 0 ml IV STAT PRN; Protocol PRN Reason: Hypoglycemia Protocol Dextrose (Glutose 15) 0 gm PO ONCE PRN; Protocol PRN Reason: Hypoglycemia Protocol Glucagon (Glucagen Diagnostic Kit) 0 mg IM STAT PRN; Protocol PRN Reason: Hypoglycemia Protocol Heparin Sodium (Porcine) (Heparin) 5,000 units SC Q8 [facility] Last Admin: 08/19/18 06:37 Dose: 5,000 units Hydroxyzine HCl (Atarax) 25 mg IM Q6H PRN PRN Reason: Agitation Last Admin: 08/19/18 05:19 Dose: 25 mg Dextrose (Dextrose 5% In Water 1000 Ml) 1,000 mls @ 0 mls/hr IV .Q0M PRN; Protocol PRN Reason: Hypoglycemia Protocol Sodium Chloride (Sodium Chloride 0.9%) 1,000 mls @ 100 mls/hr IV .Q10H [facility] Last Admin: 08/19/18 03:03 Dose: 100 mls/hr Insulin Aspart (Novolog Mix 70/30 (70/30 Units/Ml)) 20 units SC DAILY [facility] Last Admin: 08/19/18 10:30 Dose: Not Given Insulin Human Regular (Novolin R) 0 unit SC [facility]; Protocol Last Admin: 08/19/18 06:31 Dose: 6 unit Lorazepam (Ativan) 2 mg IVP Q6H PRN PRN Reason: Anxiety Losartan Potassium (Cozaar) 25 mg PO ONCE ONE Stop: 08/19/18 22:41 Metoclopramide HCl (Reglan) 5 mg IVP Q6 PRN PRN Reason: Nausea/Vomiting Ondansetron HCl (Zofran Inj) 4 mg IVP Q6 PRN PRN Reason: Nausea/Vomiting Quetiapine Fumarate (Seroquel) 50 mg PO TID [facility] Last Admin: 08/19/18 10:13 Dose: Not Given Quetiapine Fumarate (Seroquel) 100 mg PO [facility] - Labs Labs: 08/19/18 07:58 08/19/18 07:58 PT 9.8 SECONDS (9.7-12.2) 08/18/18 22:53 INR 0.9 08/18/18 22:53 APTT 31.0 SECONDS (21-34) 08/18/18 22:53 - Constitutional Appears: Agitated - Head Exam Head Exam: NORMAL INSPECTION, NORMOCEPHALIC - Eye Exam Eye Exam: EOMI, Normal appearance - ENT Exam ENT Exam: Mucous Membranes Dry - Respiratory Exam Respiratory Exam: Clear to Ausculation Bilateral, NORMAL BREATHING PATTERN - Cardiovascular Exam Cardiovascular Exam: Tachycardia, REGULAR RHYTHM, +S1, +S2 - GI/Abdominal Exam GI & Abdominal Exam: Soft, Tenderness, Normal Bowel Sounds - Extremities Exam Extremities Exam: Normal Inspection - Neurological Exam Neurological Exam: Alert, Awake, Oriented x3 - Psychiatric Exam Psychiatric exam: Normal Affect, Normal Mood - Skin Skin Exam: Dry, Intact, Normal Color Assessment and Plan - Assessment and Plan (Free Text) Assessment: 28 year old female who presents for intractable vomiting, abdominal pain and pseudoseizures. Plan: Intractable vomiting with abdominal pain, chronic Diabetic gastroparesis vs. psychogenic causes Reglan 5mg IV Q6 PRN Zofran 4mg Q6 PRN Protonix 40mg NPO given patient is vomiting Anxiety/Depression/pseudoseizure, chronic Psych consulted- appreciate recs Seroquel 50mg PO TID Seroquel 100mg PO HS Klonopin 0.5mg PO TID Atarax 25mg Q6 PRN Type 2 DM, chronic Glucose 206 accucheck q4h ISS Hypoglycemic treatment protocol Beta hydroxybutyrate 2.5 ESRD on HD MWF Nephrology following: Dr. Nieves- appreciate recs Last session on 08/17, missed 08/18 session Phos and calcium normal on repeat cmp Dr. Nieves consulted, help appreciated AVF revision was not done during last admission NS IV fluids @ 100 mls/hr Hypertension, chronic Clonidine 0.2mg TD weekly Losartan 25mg PO daily Coreg 6.25mg PO BID pending midline as patient continues to throwup, oral meds not possible at this time patient has poor access requiring midline access will use IV labetolol 10mg q4hprn for bp> 180 In ED, patient had elevated blood pressure in 200s. Losartan 25mg PO once - patient vomited it up Lopressor 5mg IV x2 given with improvement of BP to 158 systolic Clonidine patch applied. Enalapril given as per Nephro Prophylaxis Heparin 5000 units SC Protonix CLD Case discussed with Dr. Christine Giles, PGY1
--- NOTE | 2018-08-19 11:37 | CP.PCM.CON ---
History of Present Illness - History of Present Illness History of Present Illness: h/o DM, CRF, HD, chronic N/v, abd pain, mult admissions. Pt seen now with JON Bee. ASked to see pt today for N/V, abd pain. Glucose = 590. EGD 2017= NO retained food in stomach. HAs had Gi work up in past. Review of Systems - Constitutional Constitutional: Fatigue, Headache. absent: Weight Gain - EENT Eyes: absent: Photophobia Nose/Mouth/Throat: absent: Epistaxis, Dysphagia, Odynophagia - Cardiovascular Cardiovascular: absent: Chest Pain, Dyspnea - Respiratory Respiratory: absent: Hemoptysis, Wheezing - Gastrointestinal Gastrointestinal: Abdominal Pain, Bloating, Nausea, Vomiting. absent: Dysphagia, Hematemesis, Hematochezia, Melena - Genitourinary Genitourinary: absent: Hematuria - Neurological Neurological: absent: Convulsions - Psychiatric Psychiatric: absent: Suicidal Ideation Past Patient History - Infectious Disease Hx of Infectious Diseases: None - Past Medical History & Family History Past Medical History?: Yes - Past Social History Smoking Status: Never Smoked - CARDIAC Hx Hypertension: Yes - PULMONARY Hx Bronchitis: Yes - NEUROLOGICAL Hx Seizures: Yes (Pseudo seizures?) - HEENT Hx HEENT Problems: Yes Hx Cataracts: Yes - RENAL Hx Chronic Kidney Disease: Yes - ENDOCRINE/METABOLIC Hx Endocrine Disorders: Yes Hx Diabetes Mellitus Type 2: Yes (on insulin pump) - HEMATOLOGICAL/ONCOLOGICAL Hx Anemia: Yes Hx Human Immunodeficiency Virus (HIV): No - INTEGUMENTARY Hx Dermatological Problems: No - MUSCULOSKELETAL/RHEUMATOLOGICAL Hx Musculoskeletal Disorders: No Hx Falls: No - GASTROINTESTINAL Hx Gastrointestinal Disorders: Yes (SEE COMMENT) Other/Comment: gastroparesis - GENITOURINARY/GYNECOLOGICAL Hx Genitourinary Disorders: No - PSYCHIATRIC Hx Anxiety: Yes Hx Depression: Yes Hx Substance Use: No - SURGICAL HISTORY Hx Appendectomy: Yes - ANESTHESIA Hx Anesthesia: Yes Hx Anesthesia Reactions: No Hx Malignant Hyperthermia: No Meds Allergies/Adverse Reactions: Allergies Allergy/AdvReac Type Severity Reaction Status Date / Time No Known Allergies Allergy Verified 08/18/18 20:15 - Medications Medications: Current Medications Carvedilol (Coreg) 6.25 mg PO BID [facility] Last Admin: 08/19/18 10:08 Dose: Not Given Clonazepam (Klonopin) 0.5 mg PO TID [facility] Last Admin: 08/19/18 10:13 Dose: Not Given Clonidine HCl (Catapres-Tts2 0.2 Mg/24 Hr) 1 patch TD Q7D@1000 [facility] Last Admin: 08/18/18 23:03 Dose: 1 patch Dextrose (Dextrose 50% Inj) 0 ml IV STAT PRN; Protocol PRN Reason: Hypoglycemia Protocol Dextrose (Glutose 15) 0 gm PO ONCE PRN; Protocol PRN Reason: Hypoglycemia Protocol Glucagon (Glucagen Diagnostic Kit) 0 mg IM STAT PRN; Protocol PRN Reason: Hypoglycemia Protocol Heparin Sodium (Porcine) (Heparin) 5,000 units SC Q8 [facility] Last Admin: 08/19/18 06:37 Dose: 5,000 units Hydroxyzine HCl (Atarax) 25 mg IM Q6H PRN PRN Reason: Agitation Last Admin: 08/19/18 05:19 Dose: 25 mg Dextrose (Dextrose 5% In Water 1000 Ml) 1,000 mls @ 0 mls/hr IV .Q0M PRN; Protocol PRN Reason: Hypoglycemia Protocol Sodium Chloride (Sodium Chloride 0.9%) 1,000 mls @ 100 mls/hr IV .Q10H [facility] Last Admin: 08/19/18 03:03 Dose: 100 mls/hr Insulin Aspart (Novolog Mix 70/30 (70/30 Units/Ml)) 20 units SC DAILY [facility] Last Admin: 08/19/18 10:30 Dose: Not Given Insulin Human Regular (Novolin R) 0 unit SC ACHS [facility]; Protocol Last Admin: 08/19/18 06:31 Dose: 6 unit Lorazepam (Ativan) 2 mg IVP Q6H PRN PRN Reason: Anxiety Losartan Potassium (Cozaar) 25 mg PO ONCE ONE Stop: 08/19/18 22:41 Metoclopramide HCl (Reglan) 5 mg IVP Q6 PRN PRN Reason: Nausea/Vomiting Ondansetron HCl (Zofran Inj) 4 mg IVP Q6 PRN PRN Reason: Nausea/Vomiting Quetiapine Fumarate (Seroquel) 50 mg PO TID [facility] Last Admin: 08/19/18 10:13 Dose: Not Given Quetiapine Fumarate (Seroquel) 100 mg PO [facility] Physical Exam - Constitutional Appears: No Acute Distress - Neck Exam Neck exam: Negative for: Tenderness - Respiratory Exam Respiratory Exam: Clear to Auscultation Bilateral - Cardiovascular Exam Cardiovascular Exam: Tachycardia - GI/Abdominal Exam GI & Abdominal Exam: Normal Bowel Sounds, Soft, Tenderness. absent: Distended, Guarding, Mass, Rebound - Extremities Exam Extremities exam: Negative for: calf tenderness - Neurological Exam Neurological exam: Alert, Oriented x3 Results - Vital Signs Recent Vital Signs: Last Vital Signs Temp 98.9 F 08/19/18 08:00 Pulse 118 H 08/19/18 08:00 Resp 20 08/19/18 08:00 BP 176/115 H 08/19/18 08:00 Pulse Ox 98 08/19/18 08:00 - Labs Result Diagrams: 08/19/18 07:58 08/19/18 07:58 Labs: Laboratory Results - last 24 hr 08/18/18 08/18/18 08/18/18 20:06 22:45 22:53 WBC 15.0 H D RBC 5.21 H Hgb 13.3 D Hct 41.4 MCV 79.4 L D MCH 25.6 L MCHC 32.2 L RDW 18.3 H Plt Count 341 MPV 9.4 Neut % (Auto) 88.8 H Lymph % (Auto) 9.2 L [place] % (Auto) 1.2 Eos % (Auto) 0.0 Baso % (Auto) 0.8 Neut # (Auto) 13.3 H Lymph # (Auto) 1.4 [place] # (Auto) 0.2 Eos # (Auto) 0.0 Baso # (Auto) 0.1 Neutrophils % (Manual) 92 H Band Neutrophils % Lymphocytes % (Manual) 6 L Monocytes % (Manual) 1 Basophils % (Manual) 1 Platelet Estimate Normal Hypochromasia (manual) Slight Poikilocytosis (manual Slight Anisocytosis (manual) Slight Microcytosis (manual) Slight Target Cells Slight PT INR APTT Sodium 142 Potassium 4.6 Chloride 100 Carbon Dioxide 21 L Anion Gap 25 H BUN 56 H Creatinine 6.1 H Est GFR ( Amer) 10 Est GFR (Non-Af Amer) 8 POC Glucose (mg/dL) 158 H Random Glucose 206 H D Calcium 11.1 H Phosphorus 1.0 L* Magnesium 2.7 H Total Bilirubin 0.4 AST 26 ALT 14 Alkaline Phosphatase 180 H D Total Protein 8.9 H Albumin 4.7 Globulin 4.1 H Albumin/Globulin Ratio 1.2 B-Hydroxybutyrate 08/18/18 08/19/18 08/19/18 22:53 06:10 07:58 WBC 13.2 H RBC 4.02 Hgb 10.6 L D Hct 33.7 L MCV 84.0 D MCH 26.4 L MCHC 31.4 L RDW 18.7 H Plt Count 267 MPV 9.9 Neut % (Auto) 88.7 H Lymph % (Auto) 8.2 L [place] % (Auto) 2.8 Eos % (Auto) 0.0 Baso % (Auto) 0.3 Neut # (Auto) 11.7 H Lymph # (Auto) 1.1 [place] # (Auto) 0.4 Eos # (Auto) 0.0 Baso # (Auto) 0.0 Neutrophils % (Manual) 93 H Band Neutrophils % 1 Lymphocytes % (Manual) 5 L Monocytes % (Manual) 1 Basophils % (Manual) Platelet Estimate Normal Hypochromasia (manual) Poikilocytosis (manual Anisocytosis (manual) Slight Microcytosis (manual) Target Cells PT 9.8 INR 0.9 APTT 31.0 Sodium Potassium Chloride Carbon Dioxide Anion Gap BUN Creatinine Est GFR ( Amer) Est GFR (Non-Af Amer) POC Glucose (mg/dL) > 500 H* Random Glucose Calcium Phosphorus Magnesium Total Bilirubin AST ALT Alkaline Phosphatase Total Protein Albumin Globulin Albumin/Globulin Ratio B-Hydroxybutyrate 08/19/18 07:58 WBC RBC Hgb Hct MCV MCH MCHC RDW Plt Count MPV Neut % (Auto) Lymph % (Auto) [place] % (Auto) Eos % (Auto) Baso % (Auto) Neut # (Auto) Lymph # (Auto) [place] # (Auto) Eos # (Auto) Baso # (Auto) Neutrophils % (Manual) Band Neutrophils % Lymphocytes % (Manual) Monocytes % (Manual) Basophils % (Manual) Platelet Estimate Hypochromasia (manual) Poikilocytosis (manual Anisocytosis (manual) Microcytosis (manual) Target Cells PT INR APTT Sodium 136 Potassium 5.2 Chloride 98 Carbon Dioxide 16 L Anion Gap 26 H BUN 61 H Creatinine 6.7 H Est GFR ( Amer) 9 Est GFR (Non-Af Amer) 7 POC Glucose (mg/dL) Random Glucose 590 H* D Calcium 9.2 Phosphorus 3.4 Magnesium 2.3 Total Bilirubin 0.6 AST 28 ALT 9 D Alkaline Phosphatase 106 Total Protein 6.6 Albumin 3.7 Globulin 2.9 Albumin/Globulin Ratio 1.3 B-Hydroxybutyrate 2.50 H Assessment & Plan - Assessment and Plan (Free Text) Assessment: 1) N/V- chronic. Multifactorial: metabolic, Renal, DM, DOOC, Psych. No gastric food retention seen on EGD 2017. GAstric empty study- not done. 2) abdom pain: as above. 3) anemia: chr disease. 4) CRF, HD 5) DM- very high gluc levels- 500-590. 6) Hypophosph REc: PPI, Psych f/u.
--- NOTE | 2018-08-19 12:37 | PCM.FALL ---
Post Fall Progress Note - Post Fall Fall Date: 08/19/18 Fall Time: 12:20 - Post Fall Exam Vital Sign: Temp Pulse Resp BP Pulse Ox 98.9 F 118 H 20 176/115 H 98 08/19/18 08:00 08/19/18 08:00 08/19/18 08:00 08/19/18 08:00 08/19/18 08:00 Impression/Plan: 28 year old female had code star called after patient threw her self on the floor. At that point patient became unresponsive for a few seconds and then r eturned to normal mentation without ocnfusion. Patient was then transferred to her bed with the assistance from the nurses. Vital signs at start of code star was 90 degrees, 122 hr, 97% RA and 171/95. NAD, A&Ox3, moving all 4 extremities. Pt became hysterical crying that she would like pain medication for her pain and stating that "I have anxiety". Thorazine 25 mg IM ordered.
[2018-08-19] MEDS: (Novolin R) Insulin Human Regular 100 units/ml vial SC SCH ×4 (12:45→23:57)
--- NOTE | 2018-08-19 12:52 | PCM.PSYCH ---
Initial Psychiatric Evaluation - Initial Psychiatric Evaluation Type of Admission: Voluntary Legal Status: Capacity Chief Complaint (in patient's own words): "I'm sick" History of Present Illness and Precipitating Events: The pt is seen, chart reviewed and case discussed. Consult was requested for her psych sxs. She is well-known from many previous consults She was just discharged from hospital after finally somewhat stabilizing her condition but she says she was sent from the HD clinic as she was very sick and had another pseudoseizure in ED again. She was out only 1-2 days. From last admission: She is a 28 y/o female, single, with no child, lives with her mother, unemployed as she lost her job at [employer] in July 2016. She reported some "hypoglycemia" induced seizures, which started 6 years ago. 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 She was upset that people do not believe her. However, even this telegraphic typewriter installer witnessed one of them in the past and she would feign a seizure and ask immediately for ativan in a second or two. EEG was "normal" She admitted in the past that she had been stressed b/c of a break up with her GF who later , and b/c of losing her job. She is now more worried and angry about her "pain." She is depressed and is very anxious. 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 She eventually developed ESRD and is now on HD. Long Term Care Pharmacist spoke to her mo too and she said that the pt was somewhat better at home. She also reported that the pt was confused and hallucinating yesterday - likely delirium due to medical issues. Today, she is not confused. Pt also voiced SI - wishing to . No plans or urge now - she is on 1:1 though She fulfills criteria for major depression and generalized anxiety. Feels very anaya and irate too. No drug/alcohol hx No trauma hx except for the abovementioned losses. Past psych hx: Denies. 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 Family psych hx: Denies Med hx: Cataracts and DM. Current Medications: Active Medications Generic Name Dose Route Start Last Admin Trade Name Freq PRN Reason Stop Dose Admin Carvedilol 6.25 mg 08/19/18 10:00 08/19/18 10:08 Coreg PO Not Given BID [facility] Clonazepam 0.5 mg 08/18/18 22:54 08/19/18 10:13 Klonopin PO Not Given TID [facility] Clonidine HCl 1 patch 08/18/18 22:45 08/18/18 23:03 Catapres-Tts2 0.2 Mg/24 Hr TD 1 patch Q7D@1000 [facility] Administration Dextrose 0 ml 08/18/18 22:57 Dextrose 50% Inj IV STAT PRN Hypoglycemia Protocol Protocol Dextrose 0 gm 08/18/18 22:57 Glutose 15 PO ONCE PRN Hypoglycemia Protocol Protocol Escitalopram Oxalate 10 mg 08/19/18 13:00 Lexapro PO DAILY [facility] Glucagon 0 mg 08/18/18 22:57 Glucagen Diagnostic Kit IM STAT PRN Hypoglycemia Protocol Protocol Heparin Sodium (Porcine) 5,000 units 08/19/18 06:00 08/19/18 06:37 Heparin SC 5,000 units Q8 [facility] Administration Hydroxyzine HCl 25 mg 08/18/18 22:54 08/19/18 05:19 Atarax IM 25 mg Q6H PRN Administration Agitation Dextrose 1,000 mls @ 0 mls/hr 08/18/18 22:57 Dextrose 5% In Water 1000 Ml IV .Q0M PRN Hypoglycemia Protocol Protocol Per Protocol Sodium Chloride 1,000 mls @ 100 mls/hr 08/19/18 02:00 08/19/18 03:03 Sodium Chloride 0.9% IV 100 mls/hr .Q10H [facility] Administration Insulin Human Regular 0 unit 08/19/18 11:45 Novolin R SC Q4H [facility] Protocol Labetalol HCl 10 mg 08/19/18 11:37 Trandate IV Q4H PRN bp>180 Losartan Potassium 25 mg 08/19/18 22:40 Cozaar PO 08/19/18 22:41 ONCE ONE Metoclopramide HCl 5 mg 08/18/18 22:48 Reglan IVP Q6 PRN Nausea/Vomiting Ondansetron HCl 4 mg 08/18/18 22:51 Zofran Inj IVP Q6 PRN Nausea/Vomiting Quetiapine Fumarate 50 mg 08/19/18 10:00 08/19/18 10:13 Seroquel PO Not Given TID [facility] Quetiapine Fumarate 100 mg 08/19/18 22:00 Seroquel PO HS [facility] Past Psychiatric History - Past Psychiatric History Previous Treatment History: Intensive Outpatient Pertinent Medical Hx (Current Medical&Sleep Prob, Allergies): Allergies Allergy/AdvReac Type Severity Reaction Status Date / Time No Known Allergies Allergy Verified 08/18/18 20:15 Insulin Detemir [Levemir] 10 unit SC HS #1 unit 08/07/18 Insulin Detemir [Levemir] 20 units SC DAILY #2 vial 08/07/18 Insulin Human Regular [Novolin R] 5 unit SC ACHS #1 unit 08/07/18 Metoclopramide [Reglan] 1 tab PO QID #20 tab 08/07/18 Ondansetron HCl [Zofran] 1 tab PO Q6 PRN #20 tablet 08/07/18 Pantoprazole [Protonix EC Tab] 1 tab PO DAILY #30 ect 08/07/18 Sertraline [Zoloft] 50 mg PO DAILY #30 tab 08/07/18 amLODIPine [Norvasc] 1 tab PO DAILY #30 tab 08/07/18 hydrOXYzine HCl [Atarax] 1 tab PO HS PRN #7 tab 08/07/18 Carvedilol [Coreg] 6.25 mg PO Q12 #60 tab 08/16/18 Insulin Aspart/Insulin Aspar [Novolog Mix 70/30 (70/30 units/ml)] 10 units SC HS #1 vial 08/16/18 Insulin Aspart/Insulin Aspar [Novolog Mix 70/30 (70/30 units/ml)] 20 units SC DAILY #1 vial 08/16/18 Losartan Potassium 1 tab PO DAILY #30 tablet 08/16/18 QUEtiapine [SEROquel] 50 mg PO TID #90 tab 08/16/18 Sertraline [Zoloft] 50 mg PO DAILY #30 tab 08/16/18 cloNIDine 0.2 mg/24 hr [catapres-TTS2 0.2 mg/24 hr] 1 patch TD QWK #7 patch 08/16/18 DSM 5 DX - DSM 5 DSM 5 Diagnosis: Major depressive d/o - recurrent, severe without psychosis Conversion d/o (pseudo-seizures) Factitious d/o Personality disorder Generalized anxiety d/o - Recommended/Plan of Treatment Treatment Recommendations and Plan of Treatment: Resume meds: Lexapro for depression and anxiety - dose to be increased to 20 mg. Zoloft stopped Seroquel for mood swings, irritability PRN Atarax and inderal for anxiety Klonopin for anxiety while she is here in the hospital. She is overusing ativan otherwise. Ativan will be d/c'ed She is fixated on ativan Limit setting, support, psychoeducation SW can contact if she can be admitted to [facility] due to her severe personality disorder.
[2018-08-20] MEDS: (Novolin R) Insulin Human Regular 100 units/ml vial SC SCH ×5 (03:14→19:53)
[2018-08-20] MEDS: hydrOXYzine HCl 25 mg/ml Inj IM PRN (03:17)
[2018-08-20] MEDS: Sodium Chloride 0.9% 1,000 ML IV SCH ×2 (08:01→17:35)
--- NOTE | 2018-08-20 09:00 | CP.PCM.PN ---
Subjective - Date & Time of Evaluation Date of Evaluation: 08/20/18 Time of Evaluation: 08:57 - Subjective Subjective: Medicine Progress Note for Dr. King's service S/E at bedside Complaining of non-specific abdominal pain likely 2/2 to induced vomiting multiple times (Avasys confirm) Requesting pain meds and heavy sedation medications but refuses oral bp meds DC telemetry Limited ROS 2/2 patient agitation and non-stop crying begging for certain medi cations Objective - Vital Signs/Intake and Output Vital Signs (last 24 hours): Temp Pulse Resp BP Pulse Ox 98.9 F 107 H 20 187/112 H 97 08/20/18 07:00 08/20/18 07:00 08/20/18 07:00 08/20/18 07:00 08/20/18 07:00 Intake and Output: 08/20/18 08/20/18 06:59 18:59 Intake Total 100 Balance 100 - Medications Medications: Current Medications Carvedilol (Coreg) 6.25 mg PO BID [facility] Last Admin: 08/19/18 19:17 Dose: Not Given Chlorpromazine (Thorazine) 25 mg IM ONCE PRN PRN Reason: Other Clonazepam (Klonopin) 0.5 mg PO TID [facility] Last Admin: 08/19/18 19:17 Dose: Not Given Clonidine HCl (Catapres-Tts2 0.2 Mg/24 Hr) 1 patch TD Q7D@1000 [facility] Last Admin: 08/18/18 23:03 Dose: 1 patch Dextrose (Dextrose 50% Inj) 0 ml IV STAT PRN; Protocol PRN Reason: Hypoglycemia Protocol Dextrose (Glutose 15) 0 gm PO ONCE PRN; Protocol PRN Reason: Hypoglycemia Protocol Escitalopram Oxalate (Lexapro) 10 mg PO DAILY [facility] Last Admin: 08/19/18 13:15 Dose: Not Given Glucagon (Glucagen Diagnostic Kit) 0 mg IM STAT PRN; Protocol PRN Reason: Hypoglycemia Protocol Heparin Sodium (Porcine) (Heparin) 5,000 units SC Q8 [facility] Last Admin: 08/20/18 06:31 Dose: Not Given Hydroxyzine HCl (Atarax) 25 mg IM Q6H PRN PRN Reason: Agitation Last Admin: 08/20/18 03:17 Dose: 25 mg Dextrose (Dextrose 5% In Water 1000 Ml) 1,000 mls @ 0 mls/hr IV .Q0M PRN; Protocol PRN Reason: Hypoglycemia Protocol Sodium Chloride (Sodium Chloride 0.9%) 1,000 mls @ 100 mls/hr IV .Q10H [facility] Last Admin: 08/20/18 08:01 Dose: Not Given Insulin Human Regular (Novolin R) 0 unit SC Q4H [facility]; Protocol Last Admin: 08/20/18 08:01 Dose: Not Given Labetalol HCl (Trandate) 10 mg IV Q4H PRN PRN Reason: bp>180 Metoclopramide HCl (Reglan) 5 mg IVP Q6 PRN PRN Reason: Nausea/Vomiting Ondansetron HCl (Zofran Inj) 4 mg IVP Q6 PRN PRN Reason: Nausea/Vomiting Quetiapine Fumarate (Seroquel) 50 mg PO TID [facility] Last Admin: 08/19/18 19:17 Dose: Not Given Quetiapine Fumarate (Seroquel) 100 mg PO HS [facility] Last Admin: 08/19/18 21:07 Dose: Not Given - Labs Labs: 08/19/18 07:58 08/19/18 07:58 PT 9.8 SECONDS (9.7-12.2) 08/18/18 22:53 INR 0.9 08/18/18 22:53 APTT 31.0 SECONDS (21-34) 08/18/18 22:53 - Constitutional Appears: Non-toxic, No Acute Distress - Head Exam Head Exam: NORMAL INSPECTION, NORMOCEPHALIC - Eye Exam Eye Exam: EOMI, Normal appearance. absent: Nystagmus, Scleral icterus - ENT Exam ENT Exam: Mucous Membranes Dry - Respiratory Exam Respiratory Exam: Clear to Ausculation Bilateral, NORMAL BREATHING PATTERN. absent: Rales, Rhonchi, Wheezes - Cardiovascular Exam Cardiovascular Exam: REGULAR RHYTHM, +S1, +S2 - GI/Abdominal Exam GI & Abdominal Exam: Soft, Tenderness, Normal Bowel Sounds - Extremities Exam Extremities Exam: Normal Inspection - Neurological Exam Neurological Exam: Alert, Awake, Oriented x3 - Psychiatric Exam Psychiatric exam: Normal Affect, Normal Mood - Skin Skin Exam: Dry, Intact, Normal Color Assessment and Plan - Assessment and Plan (Free Text) Assessment: 28 year old female who presents for intractable vomiting, abdominal pain and pseudoseizures. Plan: Intractable vomiting with abdominal pain, chronic Diabetic gastroparesis vs. psychogenic causes Reglan 5mg IV Q6 PRN Zofran 4mg Q6 PRN Protonix 40mg NS IV fluids @ 100 mls/hr NPO given patient is vomiting Anxiety/Depression/pseudoseizure, chronic Psych consulted- appreciate recs Seroquel 50mg PO TID Seroquel 100mg PO HS Klonopin 0.5mg PO TID Atarax 25mg Q6 PRN Lexapro 10mg po daily Ativan 2mg IV q6h prn Type 2 DM, chronic Glucose 206 accucheck q4h ISS Hypoglycemic treatment protocol Beta hydroxybutyrate 2.5 ESRD on HD MWF Nephrology following: Dr. Nieves- appreciate recs Last session on 08/17, missed 08/18 session Phos and calcium normal on repeat cmp Dr. Nieves consulted, help appreciated AVF revision was not done during last admission Uncontrolled HTN Clonidine 0.2mg TD weekly Losartan 25mg PO daily Coreg 6.25mg PO BID pending midline will sedate with Thorazine as patient is too agitated for midline team oral meds not possible at this time as patient continues to induce vomiting patient has poor access requiring midline access will use IV labetolol 10mg q4hprn for bp> 180 In ED, patient had elevated blood pressure in 200s. Losartan 25mg PO once - patient vomited it up Lopressor 5mg IV x2 given with improvement of BP to 158 systolic Clonidine patch applied. Enalapril given as per Nephro Prophylaxis Heparin 5000 units SC Protonix NPO Case discussed with Dr. Christine Giles, PGY1
[2018-08-20] MEDS: Labetalol 5mg/ml (4ml) IV PRN (09:55)
--- NOTE | 2018-08-20 11:52 | PCM.PYCHPN ---
Psychiatric Progress Note - Psychiatric Progress Note Patient seen today, length of contact: 18 min + 15 min TC with family Patient Chief Complaint: "I am fine now. They gave me ativan" Problems Identified/Issues Discussed: She is seen, chart reviewed, case discussed A lengthy phone call was made with her sister Urszula and her Ed. [employer] Control Assistant also spoke to her mother who was on the unit. Pt was screaming and moaning, throwing up in early AM when automotive service writer passed by but then she was calmer in better mood. She denied SI, HI, AVH/del and when the nature of her condition is discussed she got defensive and immediately said "I'm not making myself hurt or throw up" even though it was not meant. She also argued back how much she needs ativan and that she will not take it outside, but she does not stay outside much. She is given reassurance that she is treated properly, ie klonopin, lexapro, seroquel, etc. Her family wants to try the following; involuntary commitment to a psychiatric facility (automotive service writer tried to explain how she would next to impossible be qualified for that as she is taking meds, is not suicidal, violent etc. Her not taking care of self and constant attempts to be admitted are risky issues but may not qualify for invol.) Then they asked if there is an "experimental medication" or "not accepting her to any hospital" The better alternative would be a med/psych unit geared to deal with such personality disordered patients, but with her needing HD it will be hard to find one. Malt Spec[employer] Control Assistant is arranging a meeting to discuss possible options. Medication Change: Yes Medical Record Reviewed: Yes Mental Status Examination - Cognitive Function Orientation: Person, Place, Situation, Time Memory: Impaired Attention: Poor Concentration: Poor Association: WNL Fund of Knowledge: WNL - Mood Mood: Depressed, Anxious - Affect Affect: Constricted - Speech Speech: Appropriate - Formal Thought Process Formal Thought Process: No Impairment - Suicidal Ideation Suicidal Ideation: No - Homicidal Ideation Homicidal Ideation: No Goal/Treatment Plan - Goal/Treatment Plan Need for Continued Stay: Severe depression anxiety, Discharge may exacerbated symptoms, Severe functional impairment, Other (medical) Progress Toward Problem(s) and Goals/Treatment Plan: Lexapro for depression and anxiety - dose to be increased to 20 mg Seroquel for mood swings, irritability PRN Atarax and inderal for anxiety Klonopin for anxiety while she is here in the hospital. She is overusing ativan otherwise. DO NOT USE Ativan as often. Limit setting, support, psychoeducation SW can contact if she can be admitted to [facility] due to her severe personality disorder.
[2018-08-20] MEDS: (Lantus) Insulin Glargine, Recombinant SC SCH (13:01)
[2018-08-20] MEDS ORDERED: (Novolin R) Insulin Human Regular 100 units/ml vial SC ONE (13:15)
--- NOTE | 2018-08-20 14:02 | CP.PCM.PN ---
Subjective - Date & Time of Evaluation Date of Evaluation: 08/20/18 Time of Evaluation: 13:59 - Subjective Subjective: Pt sleeping Chart reviewed. Psych eval and f/u appreciated Accuchecks markedly elevated Objective - Vital Signs/Intake and Output Vital Signs (last 24 hours): Temp Pulse Resp BP Pulse Ox 98.9 F 107 H 20 187/112 H 97 08/20/18 07:00 08/20/18 07:00 08/20/18 07:00 08/20/18 07:00 08/20/18 07:00 Intake and Output: 08/20/18 08/20/18 06:59 18:59 Intake Total 100 Balance 100 - Medications Medications: Current Medications Carvedilol (Coreg) 6.25 mg PO BID [facility] Last Admin: 08/20/18 10:05 Dose: Not Given Chlorpromazine (Thorazine) 25 mg IM ONCE PRN PRN Reason: NAUSEA Last Admin: 08/20/18 09:02 Dose: 25 mg Clonazepam (Klonopin) 0.5 mg PO TID [facility] Last Admin: 08/20/18 13:43 Dose: 0.5 mg Clonidine HCl (Catapres-Tts2 0.2 Mg/24 Hr) 1 patch TD Q7D@1000 [facility] Last Admin: 08/18/18 23:03 Dose: 1 patch Dextrose (Dextrose 50% Inj) 0 ml IV STAT PRN; Protocol PRN Reason: Hypoglycemia Protocol Dextrose (Glutose 15) 0 gm PO ONCE PRN; Protocol PRN Reason: Hypoglycemia Protocol Escitalopram Oxalate (Lexapro) 10 mg PO DAILY [facility] Last Admin: 08/20/18 10:05 Dose: Not Given Glucagon (Glucagen Diagnostic Kit) 0 mg IM STAT PRN; Protocol PRN Reason: Hypoglycemia Protocol Heparin Sodium (Porcine) (Heparin) 5,000 units SC Q8 [facility] Last Admin: 08/20/18 13:44 Dose: 5,000 units Hydroxyzine HCl (Atarax) 25 mg IM Q6H PRN PRN Reason: Agitation Last Admin: 08/20/18 03:17 Dose: 25 mg Dextrose (Dextrose 5% In Water 1000 Ml) 1,000 mls @ 0 mls/hr IV .Q0M PRN; Pr otocol PRN Reason: Hypoglycemia Protocol Sodium Chloride (Sodium Chloride 0.9%) 1,000 mls @ 100 mls/hr IV .Q10H [facility] Last Admin: 08/20/18 08:01 Dose: Not Given Insulin Glargine (Lantus) 10 unit SC DAILY [facility] Last Admin: 08/20/18 13:01 Dose: 10 unit Insulin Human Regular (Novolin R) 0 unit SC Q4H [facility]; Protocol Last Admin: 08/20/18 11:42 Dose: 6 units Labetalol HCl (Trandate) 10 mg IV Q4H PRN PRN Reason: bp>180 Last Admin: 08/20/18 09:55 Dose: 10 mg Lorazepam (Ativan) 2 mg IVP Q6H PRN PRN Reason: Anxiety Last Admin: 08/20/18 09:49 Dose: 2 mg Metoclopramide HCl (Reglan) 5 mg IVP Q6 PRN PRN Reason: Nausea/Vomiting Ondansetron HCl (Zofran Inj) 4 mg IVP Q6 PRN PRN Reason: Nausea/Vomiting Pantoprazole Sodium (Protonix Inj) 40 mg IVP DAILY [facility] Last Admin: 08/20/18 10:15 Dose: 40 mg Quetiapine Fumarate (Seroquel) 50 mg PO TID [facility] Last Admin: 08/20/18 13:43 Dose: 50 mg Quetiapine Fumarate (Seroquel) 100 mg PO HS [facility] Last Admin: 08/19/18 21:07 Dose: Not Given - Labs Labs: 08/19/18 07:58 08/19/18 07:58 PT 9.8 SECONDS (9.7-12.2) 08/18/18 22:53 INR 0.9 08/18/18 22:53 APTT 31.0 SECONDS (21-34) 08/18/18 22:53 Assessment and Plan (1) Vomiting Assessment & Plan: Likely due to Psychiatric disease and personality disorder. Metabolic factors such as uremia and hyperglycemia may also be playing a role. I am not certain patient has Diabetic Gastroparesis. She will not be able to cooperate with gastric emptying study to rule in/out this diagnosis recommend ongoing Psychiatric treatment, advance diet as tolerated Status: Acute (2) ESRD (end stage renal disease) on dialysis Status: Chronic
--- NOTE | 2018-08-20 14:47 | CP.PCM.PN ---
Subjective - Date & Time of Evaluation Date of Evaluation: 08/20/18 Time of Evaluation: 10:30 - Subjective Subjective: Nephro Consult Note for Dr. Nieves Service Oracio Nash DO, IM PGY-3 Patient seen and examined with attending. This AM, again put herself on the floor to try to obtain a code star, crying and screaming for medication again despite no access, drinking ginerale despite being reminded that she is NPO. Sedated with thorazine again by primary team, midline team then able to get access. 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 NPO, meds to take, things not to do, etc). Mother and sister planning to speak with Psych attending. Objective - Vital Signs/Intake and Output Vital Signs (last 24 hours): Temp Pulse Resp BP Pulse Ox 98.9 F 107 H 20 187/112 H 97 08/20/18 07:00 08/20/18 07:00 08/20/18 07:00 08/20/18 07:00 08/20/18 07:00 Intake and Output: 08/20/18 08/20/18 06:59 18:59 Intake Total 100 Balance 100 - Medications Medications: Current Medications Carvedilol (Coreg) 6.25 mg PO BID [facility] Last Admin: 08/20/18 10:05 Dose: Not Given Chlorpromazine (Thorazine) 25 mg IM ONCE PRN PRN Reason: NAUSEA Last Admin: 08/20/18 09:02 Dose: 25 mg Clonazepam (Klonopin) 0.5 mg PO TID [facility] Last Admin: 08/20/18 13:43 Dose: 0.5 mg Clonidine HCl (Catapres-Tts2 0.2 Mg/24 Hr) 1 patch TD Q7D@1000 [facility] Last Admin: 08/18/18 23:03 Dose: 1 patch Dextrose (Dextrose 50% Inj) 0 ml IV STAT PRN; Protocol PRN Reason: Hypoglycemia Protocol Dextrose (Glutose 15) 0 gm PO ONCE PRN; Protocol PRN Reason: Hypoglycemia Protocol Escitalopram Oxalate (Lexapro) 10 mg PO DAILY [facility] Last Admin: 08/20/18 10:05 Dose: Not Given Glucagon (Glucagen Diagnostic Kit) 0 mg IM STAT PRN; Protocol PRN Reason: Hypoglycemia Protocol Heparin Sodium (Porcine) (Heparin) 5,000 units SC Q8 [facility] Last Admin: 08/20/18 13:44 Dose: 5,000 units Hydroxyzine HCl (Atarax) 25 mg IM Q6H PRN PRN Reason: Agitation Last Admin: 08/20/18 03:17 Dose: 25 mg Dextrose (Dextrose 5% In Water 1000 Ml) 1,000 mls @ 0 mls/hr IV .Q0M PRN; Protocol PRN Reason: Hypoglycemia Protocol Sodium Chloride (Sodium Chloride 0.9%) 1,000 mls @ 100 mls/hr IV .Q10H [facility] Last Admin: 08/20/18 08:01 Dose: Not Given Insulin Glargine (Lantus) 10 unit SC DAILY [facility] Last Admin: 08/20/18 13:01 Dose: 10 unit Insulin Human Regular (Novolin R) 0 unit SC Q4H [facility]; Protocol Last Admin: 08/20/18 11:42 Dose: 6 units Labetalol HCl (Trandate) 10 mg IV Q4H PRN PRN Reason: bp>180 Last Admin: 08/20/18 09:55 Dose: 10 mg Lorazepam (Ativan) 2 mg IVP Q6H PRN PRN Reason: Anxiety Last Admin: 08/20/18 09:49 Dose: 2 mg Metoclopramide HCl (Reglan) 5 mg IVP Q6 PRN PRN Reason: Nausea/Vomiting Ondansetron HCl (Zofran Inj) 4 mg IVP Q6 PRN PRN Reason: Nausea/Vomiting Pantoprazole Sodium (Protonix Inj) 40 mg IVP DAILY [facility] Last Admin: 08/20/18 10:15 Dose: 40 mg Quetiapine Fumarate (Seroquel) 50 mg PO TID [facility] Last Admin: 08/20/18 13:43 Dose: 50 mg Quetiapine Fumarate (Seroquel) 100 mg PO HS [facility] Last Admin: 08/19/18 21:07 Dose: Not Given - Labs Labs: 08/19/18 07:58 08/19/18 07:58 PT 9.8 SECONDS (9.7-12.2) 08/18/18 22:53 INR 0.9 08/18/18 22:53 APTT 31.0 SECONDS (21-34) 05/01/19 22:53 - Additional Findings Additional findings: - Constitutional Appears: Chronically Ill, Initially agitated and hysterical, sedate later 2/2 medications - Head Exam Head Exam: ATRAUMATIC, NORMOCEPHALIC - Eye Exam Eye Exam: Normal appearance. absent: Conjunctival injection, Scleral icterus - ENT Exam Moist mucous membranes - Respiratory Exam CTAB, no wheezes/rales/ronchi appreciated - Cardiovascular Exam Cardiovascular Exam: Tachycardia, REGULAR RHYTHM, +S1, +S2. absent: Bradycardia, Irregular Rhythm, JVD - GI/Abdominal Exam GI & Abdominal Exam: Hyperactive Bowel Sounds, Non-rigid abdomen/not distended - Extremities Exam Extremities exam: Positive for: normal capillary refill, normal inspection, pedal pulses present. 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 Nephro was consulted for continuation of HD. 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 Nieves.
[2018-08-21] MEDS: (Novolin R) Insulin Human Regular 100 units/ml vial SC SCH ×7 (00:14→22:56)
--- NOTE | 2018-08-21 00:14 | CP.PCM.PN ---
Subjective - Date & Time of Evaluation Date of Evaluation: 08/21/18 Time of Evaluation: 00:13 - Subjective Subjective: DR KNIG SERVICE- IM Pt s/e at bedside, still complains of abdominal pain, denies cp sob fc. pt inconsolable Objective - Vital Signs/Intake and Output Vital Signs (last 24 hours): Temp Pulse Resp BP Pulse Ox 97.5 F L 90 20 134/79 99 08/21/18 00:02 08/21/18 00:02 08/21/18 00:02 08/20/18 15:00 08/21/18 00:02 Intake and Output: 08/20/18 08/21/18 18:59 06:59 Intake Total 500 720 Balance 500 720 - Medications Medications: Current Medications Carvedilol (Coreg) 6.25 mg PO BID [facility] Last Admin: 08/20/18 17:02 Dose: 6.25 mg Chlorpromazine (Thorazine) 25 mg IM ONCE PRN PRN Reason: NAUSEA Last Admin: 08/20/18 09:02 Dose: 25 mg Clonazepam (Klonopin) 0.5 mg PO TID [facility] Last Admin: 08/20/18 17:01 Dose: 0.5 mg Clonidine HCl (Catapres-Tts2 0.2 Mg/24 Hr) 1 patch TD Q7D@1000 [facility] Last Admin: 08/18/18 23:03 Dose: 1 patch Dextrose (Dextrose 50% Inj) 0 ml IV STAT PRN; Protocol PRN Reason: Hypoglycemia Protocol Last Admin: 08/20/18 23:57 Dose: 25 ml Dextrose (Glutose 15) 0 gm PO ONCE PRN; Protocol PRN Reason: Hypoglycemia Protocol Escitalopram Oxalate (Lexapro) 10 mg PO DAILY [facility] Last Admin: 08/20/18 10:05 Dose: Not Given Glucagon (Glucagen Diagnostic Kit) 0 mg IM STAT PRN; Protocol PRN Reason: Hypoglycemia Protocol Heparin Sodium (Porcine) (Heparin) 5,000 units SC Q8 [facility] Last Admin: 08/20/18 21:41 Dose: 5,000 units Hydroxyzine HCl (Atarax) 25 mg IM Q6H PRN PRN Reason: Agitation Last Admin: 08/20/18 03:17 Dose: 25 mg Dextrose (Dextrose 5% In Water 1000 Ml) 1,000 mls @ 0 mls/hr IV .Q0M PRN; Protocol PRN Reason: Hypoglycemia Protocol Sodium Chloride (Sodium Chloride 0.9%) 1,000 mls @ 100 mls/hr IV .Q10H [facility] Last Admin: 08/20/18 17:35 Dose: 100 mls/hr Insulin Glargine (Lantus) 10 unit SC DAILY [facility] Last Admin: 08/20/18 13:01 Dose: 10 unit Insulin Human Regular (Novolin R) 0 unit SC Q4H [facility]; Protocol Last Admin: 08/20/18 19:53 Dose: Not Given Labetalol HCl (Trandate) 10 mg IV Q4H PRN PRN Reason: bp>180 Last Admin: 08/20/18 09:55 Dose: 10 mg Lorazepam (Ativan) 2 mg IVP Q6H PRN PRN Reason: Anxiety Last Admin: 08/20/18 17:35 Dose: 2 mg Metoclopramide HCl (Reglan) 5 mg IVP Q6 PRN PRN Reason: Nausea/Vomiting Ondansetron HCl (Zofran Inj) 4 mg IVP Q6 PRN PRN Reason: Nausea/Vomiting Last Admin: 08/20/18 17:01 Dose: 4 mg Pantoprazole Sodium (Protonix Inj) 40 mg IVP DAILY [facility] Last Admin: 08/20/18 10:15 Dose: 40 mg Quetiapine Fumarate (Seroquel) 50 mg PO TID [facility] Last Admin: 08/20/18 17:01 Dose: 50 mg Quetiapine Fumarate (Seroquel) 100 mg PO HS [facility] Last Admin: 08/20/18 21:45 Dose: Not Given - Labs Labs: 08/19/18 07:58 08/19/18 07:58 PT 9.8 SECONDS (9.7-12.2) 08/18/18 22:53 INR 0.9 08/18/18 22:53 APTT 31.0 SECONDS (21-34) 08/18/18 22:53 - Additional Findings Additional findings: - Constitutional Appears: Non-toxic, No Acute Distress - Head Exam Head Exam: NORMAL INSPECTION, NORMOCEPHALIC - Eye Exam Eye Exam: EOMI, Normal appearance. absent: Nystagmus, Scleral icterus - ENT Exam ENT Exam: Mucous Membranes Dry - Respiratory Exam Respiratory Exam: Clear to Ausculation Bilateral, NORMAL BREATHING PATTERN. absent: Rales, Rhonchi, Wheezes - Cardiovascular Exam Cardiovascular Exam: REGULAR RHYTHM, +S1, +S2 - GI/Abdominal Exam GI & Abdominal Exam: Soft, Tenderness, Normal Bowel Sounds - Extremities Exam Extremities Exam: Normal Inspection - Neurological Exam Neurological Exam: Alert, Awake, Oriented x3 - Psychiatric Exam Psychiatric exam: Normal Affect, Normal Mood - Skin Skin Exam: Dry, Intact, Normal Color Assessment and Plan - Assessment and Plan (Free Text) Assessment: 28 year old female who presents for intractable vomiting, abdominal pain and pseudoseizures. Plan: Intractable vomiting with abdominal pain, chronic Diabetic gastroparesis vs. psychogenic causes Reglan 5mg IV Q6 PRN Zofran 4mg Q6 PRN Protonix 40mg NS IV fluids @ 100 mls/hr NPO given patient is vomiting Anxiety/Depression/pseudoseizure, chronic Psych consulted- appreciate recs Seroquel 50mg PO TID Seroquel 100mg PO HS Klonopin 0.5mg PO TID Atarax 25mg Q6 PRN Lexapro 10mg po daily Ativan 2mg IV q6h prn Type 2 DM, chronic Glucose 206 accucheck q4h ISS Hypoglycemic treatment protocol Beta hydroxybutyrate 2.5 ESRD on HD MWF Nephrology following: Dr. Nieves- appreciate recs Last session on 08/17, missed 08/18 session Phos and calcium normal on repeat cmp Dr. Nieves consulted, help appreciated AVF revision was not done during last admission Uncontrolled HTN Clonidine 0.2mg TD weekly Losartan 25mg PO daily Coreg 6.25mg PO BID pending midline will sedate with Thorazine as patient is too agitated for midline team oral meds not possible at this time as patient continues to induce vomiting patient has poor access requiring midline access will use IV labetolol 10mg q4hprn for bp> 180 In ED, patient had elevated blood pressure in 200s. Losartan 25mg PO once - patient vomited it up Lopressor 5mg IV x2 given with improvement of BP to 158 systolic Clonidine patch applied. Enalapril given as per Nephro Prophylaxis Heparin 5000 units SC Protonix NPO Case discussed with Dr. King
[2018-08-21] MEDS: Sodium Chloride 0.9% 1,000 ML IV SCH (04:01)
[2018-08-21] MEDS: (Lantus) Insulin Glargine, Recombinant SC SCH (10:31)
[2018-08-21 13:00] LABS: SQUAMOUS EPITHIAL 23 /hpf (0-5); URINE BACTERIA MOD (<OCC); URINE BILIRUBIN NEGATIVE (NEGATIVE); URINE BLOOD NEGATIVE (NEGATIVE); URINE CLARITY Hazy (Clear); URINE COLOR Yellow (YELLOW); URINE GLUCOSE (UA) 2+ mg/dL (Normal); URINE LEUKOCYTE ESTERASE 1+ Leu/uL (Negative); URINE PROTEIN 3+ mg/dL (NEGATIVE); URINE UROBILINOGEN NORMAL mg/dL (0.2-1.0)
[2018-08-21] MEDS ORDERED: Pneumococcal 23-Valent Vaccine IM ONE (14:00)
[2018-08-21 14:32] LABS: BASO # 0.1 K/uL (0.0-0.2); BASO % 1.5 % (0.0-2.0); EOS # 0.1 K/uL (0.0-0.7); EOS % 0.8 % (0.0-4.0); HEMOGLOBIN 9.1 g/dL (11.0-16.0); LYMPH # 3.3 K/uL (1.0-4.3); LYMPH % 44.5 % (20.0-40.0); MEAN CELL VOLUME 81.8 fL (81.0-99.0); MEAN CORPUSCULAR HEMOGLOBIN 26.3 pg (27.0-31.0); MEAN CORPUSCULAR HGB CONC 32.2 g/dL (33.0-37.0); MEAN PLATELET VOLUME 9.4 fL (7.2-11.7); MONO # 0.5 K/uL (0.0-0.8); MONO % 6.4 % (0.0-10.0); NEUT # 3.5 K/uL (1.8-7.0); NEUT % 46.8 % (50.0-75.0); NRBC % 0.1 % (0.0-2.0); RBC 3.47 Mil/uL (3.80-5.20); RED CELL DISTRIBUTION WIDTH 18.9 % (11.5-14.5); WHITE BLOOD COUNT 7.4 K/uL (4.8-10.8)
[2018-08-21 14:45] LABS: ALB/GLOB RATIO 1.1 (1.0-2.1); ALBUMIN 2.8 g/dL (3.5-5.0); CALCIUM 8.4 mg/dl (8.6-10.4)
--- NOTE | 2018-08-21 17:15 | CP.PCM.PCO ---
Physician Communication Note - Physician Communication Note Physician Communication Note: prn ativan is decreased to 1 mg from 2 mg. Use sparingly
[2018-08-21] MEDS: Labetalol 5mg/ml (4ml) IV PRN (17:52)
--- NOTE | 2018-08-21 21:55 | CP.PCM.PN ---
Subjective - Date & Time of Evaluation Date of Evaluation: 08/21/18 Time of Evaluation: 12:00 - Subjective Subjective: Patient calm today, taking her meds per nursing staff; denies any difficulty breathing; nausea/vomiting have subsided; drowsy; Objective - Vital Signs/Intake and Output Vital Signs (last 24 hours): Temp Pulse Resp BP Pulse Ox 97.9 F 76 20 155/104 H 97 08/21/18 17:55 08/21/18 19:34 08/21/18 17:55 08/21/18 19:34 08/21/18 17:55 Intake and Output: 08/21/18 08/22/18 18:59 06:59 Intake Total 480 Balance 480 - Medications Medications: Current Medications Carvedilol (Coreg) 6.25 mg PO BID [facility] Last Admin: 08/21/18 17:52 Dose: 6.25 mg Chlorpromazine (Thorazine) 25 mg IM ONCE PRN PRN Reason: NAUSEA Last Admin: 08/20/18 09:02 Dose: 25 mg Clonazepam (Klonopin) 0.5 mg PO TID [facility] Last Admin: 08/21/18 17:52 Dose: 0.5 mg Clonidine HCl (Catapres-Tts2 0.2 Mg/24 Hr) 1 patch TD Q7D@1000 [facility] Last Admin: 08/18/18 23:03 Dose: 1 patch Dextrose (Dextrose 50% Inj) 0 ml IV STAT PRN; Protocol PRN Reason: Hypoglycemia Protocol Last Admin: 08/20/18 23:57 Dose: 25 ml Dextrose (Glutose 15) 0 gm PO ONCE PRN; Protocol PRN Reason: Hypoglycemia Protocol Escitalopram Oxalate (Lexapro) 15 mg PO DAILY [facility] Glucagon (Glucagen Diagnostic Kit) 0 mg IM STAT PRN; Protocol PRN Reason: Hypoglycemia Protocol Heparin Sodium (Porcine) (Heparin) 5,000 units SC Q8 [facility] Last Admin: 08/21/18 21:08 Dose: 5,000 units Hydroxyzine HCl (Atarax) 25 mg IM Q6H PRN PRN Reason: Agitation Last Admin: 08/20/18 03:17 Dose: 25 mg Dextrose (Dextrose 5% In Water 1000 Ml) 1,000 mls @ 0 mls/hr IV .Q0M PRN; Protocol PRN Reason: Hypoglycemia Protocol Insulin Glargine (Lantus) 10 unit SC DAILY [facility] Last Admin: 08/21/18 10:31 Dose: 10 unit Insulin Human Regular (Novolin R) 0 unit SC Q4H [facility]; Protocol Last Admin: 08/21/18 19:26 Dose: Not Given Labetalol HCl (Trandate) 10 mg IV Q4H PRN PRN Reason: bp>180 Last Admin: 08/21/18 17:52 Dose: 10 mg Lorazepam (Ativan) 1 mg IVP Q6H PRN PRN Reason: Anxiety Last Admin: 08/21/18 21:08 Dose: 1 mg Metoclopramide HCl (Reglan) 5 mg IVP Q6 PRN PRN Reason: Nausea/Vomiting Ondansetron HCl (Zofran Inj) 4 mg IVP Q6 PRN PRN Reason: Nausea/Vomiting Last Admin: 08/20/18 17:01 Dose: 4 mg Pantoprazole Sodium (Protonix Inj) 40 mg IVP DAILY [facility] Last Admin: 08/21/18 10:29 Dose: 40 mg Quetiapine Fumarate (Seroquel) 50 mg PO TID [facility] Last Admin: 08/21/18 17:52 Dose: 50 mg Quetiapine Fumarate (Seroquel) 100 mg PO HS [facility] Last Admin: 08/21/18 21:08 Dose: 100 mg - Labs Labs: 08/21/18 14:25 08/21/18 14:25 PT 9.8 SECONDS (9.7-12.2) 08/18/18 22:53 INR 0.9 08/18/18 22:53 APTT 31.0 SECONDS (21-34) 08/18/18 22:53 - Constitutional Appears: Non-toxic, No Acute Distress - Eye Exam Eye Exam: Normal appearance - Respiratory Exam Respiratory Exam: Clear to Ausculation Bilateral. absent: Respiratory Distress - Cardiovascular Exam Cardiovascular Exam: RRR, +S1, +S2. absent: Gallop, Rubs - GI/Abdominal Exam GI & Abdominal Exam: Soft. absent: Distended, Tenderness - Extremities Exam Additional comments: no leg edema; AVF w/ bruit present; - Neurological Exam Neurological Exam: Alert, Awake - Psychiatric Exam Psychiatric exam: absent: Agitated - Skin Skin Exam: Warm. absent: Cyanosis Assessment and Plan (1) ESRD (end stage renal disease) on dialysis Assessment & Plan: Stable electrolyte status, metabolic acidosis resolved; previously volume depleted, has now been receiving adequate IVF and is volume replete; stopping further IVF; HD today per routine with 1L UF goal as patient no longer vomiting and is hypertensive; will resume MWF HD schedule on Thursday; Status: Chronic (2) Hypertensive CKD, ESRD on dialysis Assessment & Plan: BP uncontrolled, IVF stopped; on clonidine 0.2 patch and coreg 6.25 mg bid, continue; continue prn labetalol IV; will restart losartan 25; Status: Acute (3) Anemia in CKD (chronic kidney disease) Assessment & Plan: Hemoconcentrated on presentation, anemia now unmasked with IVF; will restart EPO 6,000 U qHD; Status: Chronic (4) Chronic kidney disease-mineral and bone disorder Assessment & Plan: Hypophosphatemia corrected; will monitor for need to start binders; giving zemplar 2 mcg qHD; Status: Chronic (5) Metabolic acidosis Assessment & Plan: Was likely due to DKA, resolved with IVF and insulin; needs to be kept on basal insulin even if NPO; Status: Resolved
--- NOTE | 2018-08-22 01:09 | CP.PCM.PN ---
Subjective - Date & Time of Evaluation Date of Evaluation: 08/22/18 Time of Evaluation: 01:07 - Subjective Subjective: DR KING SERVICE- IM Pt s/e at bedside, denies CP SOB FC NV at this time, wants to eat a sandwich. Objective - Vital Signs/Intake and Output Vital Signs (last 24 hours): Temp Pulse Resp BP Pulse Ox 98.2 F 70 20 165/115 H 97 08/21/18 23:00 08/21/18 23:00 08/21/18 23:00 08/21/18 23:00 08/21/18 23:00 Intake and Output: 08/21/18 08/22/18 18:59 06:59 Intake Total 480 Balance 480 - Medications Medications: Current Medications Carvedilol (Coreg) 6.25 mg PO BID [facility] Last Admin: 08/21/18 17:52 Dose: 6.25 mg Chlorpromazine (Thorazine) 25 mg IM ONCE PRN PRN Reason: NAUSEA Last Admin: 08/20/18 09:02 Dose: 25 mg Clonazepam (Klonopin) 0.5 mg PO TID [facility] Last Admin: 08/21/18 17:52 Dose: 0.5 mg Clonidine HCl (Catapres-Tts2 0.2 Mg/24 Hr) 1 patch TD Q7D@1000 [facility] Last Admin: 08/18/18 23:03 Dose: 1 patch Dextrose (Dextrose 50% Inj) 0 ml IV STAT PRN; Protocol PRN Reason: Hypoglycemia Protocol Last Admin: 08/20/18 23:57 Dose: 25 ml Dextrose (Glutose 15) 0 gm PO ONCE PRN; Protocol PRN Reason: Hypoglycemia Protocol Escitalopram Oxalate (Lexapro) 15 mg PO DAILY [facility] Glucagon (Glucagen Diagnostic Kit) 0 mg IM STAT PRN; Protocol PRN Reason: Hypoglycemia Protocol Heparin Sodium (Porcine) (Heparin) 5,000 units SC Q8 [facility] Last Admin: 08/21/18 21:08 Dose: 5,000 units Hydroxyzine HCl (Atarax) 25 mg IM Q6H PRN PRN Reason: Agitation Last Admin: 08/20/18 03:17 Dose: 25 mg Dextrose (Dextrose 5% In Water 1000 Ml) 1,000 mls @ 0 mls/hr IV .Q0M PRN; Protocol PRN Reason: Hypoglycemia Protocol Insulin Glargine (Lantus) 10 unit SC DAILY [facility] Last Admin: 08/21/18 10:31 Dose: 10 unit Insulin Human Regular (Novolin R) 0 unit SC Q4H [facility]; Protocol Last Admin: 08/21/18 22:56 Dose: 2 units Labetalol HCl (Trandate) 10 mg IV Q4H PRN PRN Reason: bp>180 Last Admin: 08/21/18 17:52 Dose: 10 mg Lorazepam (Ativan) 1 mg IVP Q6H PRN PRN Reason: Anxiety Last Admin: 08/21/18 21:08 Dose: 1 mg Metoclopramide HCl (Reglan) 5 mg IVP Q6 PRN PRN Reason: Nausea/Vomiting Ondansetron HCl (Zofran Inj) 4 mg IVP Q6 PRN PRN Reason: Nausea/Vomiting Last Admin: 08/20/18 17:01 Dose: 4 mg Pantoprazole Sodium (Protonix Inj) 40 mg IVP DAILY [facility] Last Admin: 08/21/18 10:29 Dose: 40 mg Quetiapine Fumarate (Seroquel) 50 mg PO TID [facility] Last Admin: 08/21/18 17:52 Dose: 50 mg Quetiapine Fumarate (Seroquel) 100 mg PO HS [facility] Last Admin: 08/21/18 21:08 Dose: 100 mg - Labs Labs: 08/21/18 14:25 08/21/18 14:25 PT 9.8 SECONDS (9.7-12.2) 08/18/18 22:53 INR 0.9 08/18/18 22:53 APTT 31.0 SECONDS (21-34) 08/18/18 22:53 - Additional Findings Additional findings: - Constitutional Appears: Non-toxic, No Acute Distress - Head Exam Head Exam: NORMAL INSPECTION, NORMOCEPHALIC - Eye Exam Eye Exam: EOMI, Normal appearance. absent: Nystagmus, Scleral icterus - ENT Exam ENT Exam: Mucous Membranes Dry - Respiratory Exam Respiratory Exam: Clear to Ausculation Bilateral, NORMAL BREATHING PATTERN. absent: Rales, Rhonchi, Wheezes - Cardiovascular Exam Cardiovascular Exam: REGULAR RHYTHM, +S1, +S2 - GI/Abdominal Exam GI & Abdominal Exam: Soft, Tenderness, Normal Bowel Sounds - Extremities Exam Extremities Exam: Normal Inspection - Neurological Exam Neurological Exam: Alert, Awake, Oriented x3 - Psychiatric Exam Psychiatric exam: Normal Affect, Normal Mood - Skin Skin Exam: Dry, Intact, Normal Color Assessment and Plan - Assessment and Plan (Free Text) Assessment: 28 year old female who presents for intractable vomiting, abdominal pain and pseudoseizures. Plan: Intractable vomiting with abdominal pain, chronic Diabetic gastroparesis vs. psychogenic causes Reglan 5mg IV Q6 PRN Zofran 4mg Q6 PRN Protonix 40mg NS IV fluids @ 100 mls/hr NPO given patient is vomiting Anxiety/Depression/pseudoseizure, chronic Psych consulted- appreciate recs Seroquel 50mg PO TID Seroquel 100mg PO HS Klonopin 0.5mg PO TID Atarax 25mg Q6 PRN Lexapro 10mg po daily Ativan 2mg IV q6h prn Type 2 DM, chronic Glucose 206 accucheck q4h ISS Hypoglycemic treatment protocol Beta hydroxybutyrate 2.5 ESRD on HD MWF Nephrology following: Dr. Nieves- appreciate recs Last session on 08/17, missed 08/18 session Phos and calcium normal on repeat cmp Dr. Nieves consulted, help appreciated AVF revision was not done during last admission Uncontrolled HTN Clonidine 0.2mg TD weekly Losartan 25mg PO daily Coreg 6.25mg PO BID pending midline will sedate with Thorazine as patient is too agitated for midline team oral meds not possible at this time as patient continues to induce vomiting patient has poor access requiring midline access will use IV labetolol 10mg q4hprn for bp> 180 In ED, patient had elevated blood pressure in 200s. Losartan 25mg PO once - patient vomited it up Lopressor 5mg IV x2 given with improvement of BP to 158 systolic Clonidine patch applied. Enalapril given as per Nephro Prophylaxis Heparin 5000 units SC Protonix NPO DISPO: may start to advance diet slowly Case discussed with Dr. King
[2018-08-22] MEDS: (Novolin R) Insulin Human Regular 100 units/ml vial SC SCH ×6 (03:34→23:31)
[2018-08-22] MEDS: (Lantus) Insulin Glargine, Recombinant SC SCH (09:51)
[2018-08-22] MEDS ORDERED: Losartan 12.5 MG TAB PO SCH (10:00)
[2018-08-23] MEDS: (Novolin R) Insulin Human Regular 100 units/ml vial SC SCH ×5 (03:35→22:09)
[2018-08-23] MEDS: Labetalol 5mg/ml (4ml) IV PRN ×2 (03:48→22:40)
--- NOTE | 2018-08-23 07:55 | CP.PCM.PN ---
Subjective - Date & Time of Evaluation Date of Evaluation: 08/23/18 Time of Evaluation: 07:55 - Subjective Subjective: Progress note for Dr. King. Patient seen and examined at bedside. States she feels much better, however still some generalized abdominal pain 5/10. No nausea or vomiting overnight. Tolerating meals. Denies chest pain, fever, chills, nausea, vomiting. Objective - Vital Signs/Intake and Output Vital Signs (last 24 hours): Temp Pulse Resp BP Pulse Ox 97.7 F 80 14 158/101 H 97 08/23/18 03:41 08/23/18 05:24 08/23/18 03:41 08/23/18 05:24 08/23/18 03:41 Intake and Output: 08/23/18 08/23/18 06:59 18:59 Intake Total 300 110.5 Balance 300 110.5 - Medications Medications: Current Medications Carvedilol (Coreg) 6.25 mg PO BID [facility] Last Admin: 08/22/18 17:52 Dose: 6.25 mg Chlorpromazine (Thorazine) 25 mg IM ONCE PRN PRN Reason: NAUSEA Last Admin: 08/20/18 09:02 Dose: 25 mg Clonazepam (Klonopin) 0.5 mg PO TID [facility] Last Admin: 08/22/18 17:51 Dose: 0.5 mg Clonidine HCl (Catapres-Tts2 0.2 Mg/24 Hr) 1 patch TD Q7D@1000 [facility] Last Admin: 08/18/18 23:03 Dose: 1 patch Dextrose (Dextrose 50% Inj) 0 ml IV STAT PRN; Protocol PRN Reason: Hypoglycemia Protocol Last Admin: 08/20/18 23:57 Dose: 25 ml Dextrose (Glutose 15) 0 gm PO ONCE PRN; Protocol PRN Reason: Hypoglycemia Protocol Epoetin Mk (Procrit) 6,000 unit IV MWF [facility] Escitalopram Oxalate (Lexapro) 15 mg PO DAILY [facility] Last Admin: 08/22/18 09:52 Dose: 15 mg Glucagon (Glucagen Diagnostic Kit) 0 mg IM STAT PRN; Protocol PRN Reason: Hypoglycemia Protocol Heparin Sodium (Porcine) (Heparin) 5,000 units SC Q8 [facility] Last Admin: 08/23/18 06:34 Dose: 5,000 units Hydroxyzine HCl (Atarax) 25 mg IM Q6H PRN PRN Reason: Agitation Last Admin: 08/20/18 03:17 Dose: 25 mg Dextrose (Dextrose 5% In Water 1000 Ml) 1,000 mls @ 0 mls/hr IV .Q0M PRN; Protocol PRN Reason: Hypoglycemia Protocol Insulin Glargine (Lantus) 10 unit SC DAILY [facility] Last Admin: 08/22/18 09:51 Dose: 10 unit Insulin Human Regular (Novolin R) 0 unit SC Q4H [facility]; Protocol Last Admin: 08/23/18 06:49 Dose: 6 units Labetalol HCl (Trandate) 10 mg IV Q4H PRN PRN Reason: bp>180 Last Admin: 08/23/18 03:48 Dose: 10 mg Lorazepam (Ativan) 1 mg IVP Q6H PRN PRN Reason: Anxiety Last Admin: 08/23/18 03:47 Dose: 1 mg Losartan Potassium (Cozaar) 25 mg PO DAILY [facility] Last Admin: 08/22/18 10:10 Dose: 25 mg Metoclopramide HCl (Reglan) 5 mg IVP Q6 PRN PRN Reason: Nausea/Vomiting Ondansetron HCl (Zofran Inj) 4 mg IVP Q6 PRN PRN Reason: Nausea/Vomiting Last Admin: 08/20/18 17:01 Dose: 4 mg Pantoprazole Sodium (Protonix Inj) 40 mg IVP DAILY [facility] Last Admin: 08/22/18 09:54 Dose: 40 mg Paricalcitol (Zemplar) 2 mcg IV MWF [facility] Quetiapine Fumarate (Seroquel) 50 mg PO TID [facility] Last Admin: 08/22/18 17:51 Dose: 50 mg Quetiapine Fumarate (Seroquel) 100 mg PO HS [facility] Last Admin: 08/22/18 21:02 Dose: 100 mg - Labs Labs: 08/21/18 14:25 08/21/18 14:25 PT 9.8 SECONDS (9.7-12.2) 08/18/18 22:53 INR 0.9 08/18/18 22:53 APTT 31.0 SECONDS (21-34) 08/18/18 22:53 - Constitutional Appears: Non-toxic, No Acute Distress - Head Exam Head Exam: ATRAUMATIC, NORMOCEPHALIC - Eye Exam Eye Exam: EOMI, Normal appearance - ENT Exam ENT Exam: Mucous Membranes Moist - Neck Exam Neck Exam: Full ROM, Normal Inspection - Respiratory Exam Respiratory Exam: Clear to Ausculation Bilateral. absent: Rales, Rhonchi, Wheezes - Cardiovascular Exam Cardiovascular Exam: REGULAR RHYTHM, +S1, +S2 - GI/Abdominal Exam GI & Abdominal Exam: Soft, Normal Bowel Sounds. absent: Guarding, Rebound Additional comments: Grimaces on palpation of R sided abdomen, negative mir's, negative Mcburney's - Extremities Exam Extremities Exam: Full ROM, Normal Capillary Refill, Normal Inspection. absent: Calf Tenderness, Pedal Edema, Tenderness - Neurological Exam Neurological Exam: Alert, Awake, CN II-XII Intact (grossly), Oriented x3 Neuro motor strength exam: Left Upper Extremity: 5, Right Upper Extremity: 5, Left Lower Extremity: 5, Right Lower Extremity: 5 - Psychiatric Exam Psychiatric exam: Normal Affect, Normal Mood - Skin Skin Exam: Dry, Normal Color, Warm Assessment and Plan - Assessment and Plan (Free Text) Plan: 28 year old female who presents for intractable vomiting, abdominal pain and pseudoseizures. Intractable vomiting with abdominal pain-improved, chronic Diabetic gastroparesis vs. psychogenic causes Reglan 5mg IV Q6 PRN Zofran 4mg Q6 PRN Protonix 40mg NS IV fluids @ 100 mls/hr GI, Dr. Brandon consulted, Gastric emptying study not able to be done at this time- consider study as outpatient when patient is eating normally. Advance diet as tolerated Anxiety/Depression/pseudoseizure, chronic Psych consulted- appreciate recs Seroquel 50mg PO TID Seroquel 100mg PO HS Klonopin 0.5mg PO TID Atarax 25mg Q6 PRN Lexapro 10mg po daily Ativan 1mg IV q6h prn Type 2 DM, chronic elevated blood sugars 500+ on 08/23/18 insulin adjusted based on 24 hour requirement: Lantus 14 units SC daily Regular insulin 5 units TIDAC RISS ACHS accucheck ACHS Hypoglycemic treatment protocol Beta hydroxybutyrate 2.5 ESRD on HD MWF Nephrology following: Dr. Nieves- appreciate recs Last session prior to admission on 08/17, missed 08/18 session Phos and calcium normal on repeat cmp Dr. Nieves consulted, help appreciated AVF revision was not done during last admission Uncontrolled HTN Clonidine 0.2mg TD weekly Losartan 25mg PO daily Coreg 6.25mg PO BID pending midline will sedate with Thorazine as patient is too agitated for midline team oral meds not possible at this time as patient continues to induce vomiting patient has poor access requiring midline access will use IV labetolol 10mg q4hprn for bp> 180 In ED, patient had elevated blood pressure in 200s. Losartan 25mg PO once - patient vomited it up Lopressor 5mg IV x2 given with improvement of BP to 158 systolic Clonidine patch applied. Enalapril given as per Nephro Prophylaxis Heparin 5000 units SC Protonix DISPO: Nausea/vomiting resolved. Monitor blood glucose. Case management and Dr. Mckeon to contact inpatient psych/med facilities for possible transfer-f/u. discussed with Dr. Christine Stewart, PGY-1
[2018-08-23] MEDS ORDERED: Paricalcitol 2 mcg/ml Inj IV SCH (09:00)
[2018-08-23] MEDS ORDERED: Epoetin Alfa Dialysis 3000 UNIT/ML Inj IV SCH (09:00)
[2018-08-23] MEDS: (Lantus) Insulin Glargine, Recombinant SC SCH (10:17)
--- NOTE | 2018-08-23 12:27 | PCM.PYCHPN ---
Psychiatric Progress Note - Psychiatric Progress Note Patient seen today, length of contact: 33 min Patient Chief Complaint: "I am just tired" Problems Identified/Issues Discussed: She is seen, chart reviewed, case discussed She is later seen again with DR Stewart Also, we held a meeting with other providers. She is refusing inpatient psych and she is not screenable despite severity of her mental state SW called [facility] and [facility] and they rejected her due to being on HD She is compliant with meds but feels like people treat her "like crap" even though she had been the one pushing people around and being demanding and agiatted. She also believes she has gastroperesis, but as er Dr King she doesn't. She insuinates she will come back bc of the "flare ups" We will call [facility] to assign a adult protective caseworker to help the pt Medication Change: Yes Medical Record Reviewed: Yes Mental Status Examination - Cognitive Function Orientation: Person, Place, Situation, Time Memory: Impaired Attention: Poor Concentration: Poor Association: WNL Fund of Knowledge: WNL - Mood Mood: Depressed, Anxious - Affect Affect: Constricted - Speech Speech: Appropriate - Formal Thought Process Formal Thought Process: No Impairment - Suicidal Ideation Suicidal Ideation: No - Homicidal Ideation Homicidal Ideation: No Goal/Treatment Plan - Goal/Treatment Plan Need for Continued Stay: Severe depression anxiety, Discharge may exacerbated symptoms, Severe functional impairment, Other (medical) Progress Toward Problem(s) and Goals/Treatment Plan: Lexapro for depression and anxiety - dose to be increased to 20 mg Seroquel for mood swings, irritability PRN Atarax and inderal for anxiety Klonopin for anxiety while she is here in the hospital. She is overusing ativan otherwise. DO NOT USE Ativan as often. Limit setting, support, psychoeducation
[2018-08-23 15:01] LABS: BASO # 0.1 K/uL (0.0-0.2); BASO % 1.2 % (0.0-2.0); EOS # 0.2 K/uL (0.0-0.7); EOS % 3.3 % (0.0-4.0); HEMOGLOBIN 9.3 g/dL (11.0-16.0); LYMPH # 2.1 K/uL (1.0-4.3); LYMPH % 37.6 % (20.0-40.0); MEAN CELL VOLUME 81.9 fL (81.0-99.0); MEAN CORPUSCULAR HEMOGLOBIN 26.4 pg (27.0-31.0); MEAN CORPUSCULAR HGB CONC 32.2 g/dL (33.0-37.0); MEAN PLATELET VOLUME 9.7 fL (7.2-11.7); MONO # 0.3 K/uL (0.0-0.8); MONO % 4.7 % (0.0-10.0); NEUT % 53.2 % (50.0-75.0); RBC 3.53 Mil/uL (3.80-5.20); RED CELL DISTRIBUTION WIDTH 18.6 % (11.5-14.5); WHITE BLOOD COUNT 5.6 K/uL (4.8-10.8)
[2018-08-23 15:30] LABS: ALB/GLOB RATIO 1.1 (1.0-2.1); ALBUMIN 2.9 g/dL (3.5-5.0); CALCIUM 8.2 mg/dl (8.6-10.4)
[2018-08-23] MEDS ORDERED: (Novolin 70/30) NPH/Regular 70/30 Units/ml 10 ml vial SC SCH (16:30)
--- NOTE | 2018-08-23 19:34 | CP.PCM.PN ---
Subjective - Date & Time of Evaluation Date of Evaluation: 08/23/18 Time of Evaluation: 13:00 - Subjective Subjective: Patient denies any vomiting since past 2 days; able to tolerate diet; breathing well; Objective - Vital Signs/Intake and Output Vital Signs (last 24 hours): Temp Pulse Resp BP Pulse Ox 98 F 81 19 177/91 H 100 08/23/18 17:55 08/23/18 17:55 08/23/18 17:55 08/23/18 17:55 08/23/18 17:55 Intake and Output: 08/23/18 08/24/18 18:59 06:59 Intake Total 110.5 Balance 110.5 - Medications Medications: Current Medications Carvedilol (Coreg) 6.25 mg PO BID [facility] Last Admin: 08/23/18 18:34 Dose: 6.25 mg Chlorpromazine (Thorazine) 25 mg IM ONCE PRN PRN Reason: NAUSEA Last Admin: 08/20/18 09:02 Dose: 25 mg Clonazepam (Klonopin) 0.5 mg PO TID [facility] Last Admin: 08/23/18 18:34 Dose: 0.5 mg Clonidine HCl (Catapres-Tts2 0.2 Mg/24 Hr) 1 patch TD Q7D@1000 [facility] Last Admin: 08/18/18 23:03 Dose: 1 patch Dextrose (Dextrose 50% Inj) 0 ml IV STAT PRN; Protocol PRN Reason: Hypoglycemia Protocol Last Admin: 08/20/18 23:57 Dose: 25 ml Dextrose (Glutose 15) 0 gm PO ONCE PRN; Protocol PRN Reason: Hypoglycemia Protocol Epoetin Mk (Procrit) 6,000 unit IV MWF [facility] Last Admin: 08/23/18 16:18 Dose: 6,000 unit Escitalopram Oxalate (Lexapro) 20 mg PO DAILY [facility] Glucagon (Glucagen Diagnostic Kit) 0 mg IM STAT PRN; Protocol PRN Reason: Hypoglycemia Protocol Heparin Sodium (Porcine) (Heparin) 5,000 units SC Q8 [facility] Last Admin: 08/23/18 13:52 Dose: 5,000 units Hydroxyzine HCl (Atarax) 25 mg IM Q6H PRN PRN Reason: Agitation Last Admin: 08/20/18 03:17 Dose: 25 mg Dextrose (Dextrose 5% In Water 1000 Ml) 1,000 mls @ 0 mls/hr IV .Q0M PRN; Protocol PRN Reason: Hypoglycemia Protocol Insulin Glargine (Lantus) 14 unit SC DAILY [facility] Insulin Human Regular (Novolin R) 5 unit SC TIDAC [facility] Insulin Human Regular (Novolin R) 0 unit SC ACHS [facility]; Protocol Labetalol HCl (Trandate) 10 mg IV Q4H PRN PRN Reason: bp>180 Last Admin: 08/23/18 03:48 Dose: 10 mg Lorazepam (Ativan) 1 mg IVP Q6H PRN PRN Reason: Anxiety Last Admin: 08/23/18 03:47 Dose: 1 mg Losartan Potassium (Cozaar) 25 mg PO DAILY [facility] Last Admin: 08/23/18 10:27 Dose: 25 mg Metoclopramide HCl (Reglan) 5 mg IVP Q6 PRN PRN Reason: Nausea/Vomiting Ondansetron HCl (Zofran Inj) 4 mg IVP Q6 PRN PRN Reason: Nausea/Vomiting Last Admin: 08/20/18 17:01 Dose: 4 mg Pantoprazole Sodium (Protonix Inj) 40 mg IVP DAILY [facility] Last Admin: 08/23/18 10:17 Dose: 40 mg Paricalcitol (Zemplar) 2 mcg IV MWF [facility] Last Admin: 08/23/18 16:17 Dose: 2 mcg Quetiapine Fumarate (Seroquel) 50 mg PO TID [facility] Last Admin: 08/23/18 18:34 Dose: 50 mg Quetiapine Fumarate (Seroquel) 100 mg PO HS [facility] Last Admin: 08/22/18 21:02 Dose: 100 mg - Labs Labs: 08/23/18 14:50 08/23/18 14:50 PT 9.8 SECONDS (9.7-12.2) 08/18/18 22:53 INR 0.9 08/18/18 22:53 APTT 31.0 SECONDS (21-34) 08/18/18 22:53 - Constitutional Appears: Non-toxic, No Acute Distress - Eye Exam Eye Exam: Normal appearance. absent: Scleral icterus - Respiratory Exam Respiratory Exam: Clear to Ausculation Bilateral. absent: Respiratory Distress - Cardiovascular Exam Cardiovascular Exam: RRR, +S1, +S2 - GI/Abdominal Exam GI & Abdominal Exam: Soft. absent: Distended, Tenderness - Extremities Exam Additional comments: no leg edema; AVF bruit+; - Neurological Exam Neurological Exam: Alert, Awake - Psychiatric Exam Psychiatric exam: Normal Mood. absent: Agitated - Skin Skin Exam: Warm. absent: Cyanosis Assessment and Plan (1) ESRD (end stage renal disease) on dialysis Assessment & Plan: Stable volume and electrolyte status; dialyzing today per routine with 1.5L net UF goal; Status: Chronic (2) Hypertensive CKD, ESRD on dialysis Assessment & Plan: BP elevated, continue current meds; will benefit from UF on HD; Status: Acute (3) Anemia in CKD (chronic kidney disease) Assessment & Plan: Hgb below goal, giving EPO on HD; Status: Chronic (4) Chronic kidney disease-mineral and bone disorder Assessment & Plan: Secondary hyperparathyroidism of CKD; giving zemplar on HD; Status: Chronic (5) Metabolic acidosis Status: Resolved
[2018-08-23] MEDS ORDERED: (Novolin N) Insulin Human Isophane (NPH) 100 u/ml 10 ml vial SC SCH (22:00)
[2018-08-24] MEDS ORDERED: (Novolin R) Insulin Human Regular 100 units/ml vial SC ONE ×2 (02:15→15:02)
[2018-08-24] MEDS: (Novolin R) Insulin Human Regular 100 units/ml vial SC SCH ×6 (08:52→16:59)
[2018-08-24] MEDS ORDERED: Pantoprazole 40 mg EC Tab PO SCH (10:00)
[2018-08-24] MEDS ORDERED: (Lantus) Insulin Glargine, Recombinant SC SCH (10:00)
[2018-08-24] MEDS: Labetalol 5mg/ml (4ml) IV PRN ×2 (10:48→15:16)
--- NOTE | 2018-08-24 11:56 | CP.PCM.DIS ---
Provider - Provider Date of Admission: 08/20/18 16:30 Attending physician: Reza King Jr, MD Consults: 08/19/18 00:23 Physician Consult Routine Comment: Consulting Provider: Migue Nieves Consulting Physician: Migue Nieves Reason for Consult: ESRD, missed dialysis on 08/1808/19/18 10:39 Gastroenterology Consult Routine Comment: Consulting Provider: Porfirio Murphy Consulting Physician: Porfirio Murphy Reason for Consult: abdominal pain, intractable n/v Psychiatry Consult Routine Comment: Consulting Provider: Jomar Mckeon Consulting Physician: Jomar Mckeon Reason for Consult: severe anxiety/[place] Time Spent in preparation of Discharge (in minutes): 35 Diagnosis - Discharge Diagnosis (1) Abdominal pain Status: Acute Hospital Course - Lab Results Lab Results: Most Recent Lab Values WBC 5.6 K/uL (4.8-10.8) 08/23/18 14:50 RBC 3.53 Mil/uL (3.80-5.20) L 08/23/18 14:50 Hgb 9.3 g/dL (11.0-16.0) L 08/23/18 14:50 Hct 29.0 % (34.0-47.0) L 08/23/18 14:50 MCV 81.9 fL (81.0-99.0) 08/23/18 14:50 MCH 26.4 pg (27.0-31.0) L 08/23/18 14:50 MCHC 32.2 g/dL (33.0-37.0) L 08/23/18 14:50 RDW 18.6 % (11.5-14.5) H 08/23/18 14:50 Plt Count 172 K/uL (130-400) 08/23/18 14:50 MPV 9.7 fL (7.2-11.7) 08/23/18 14:50 Neut % (Auto) 53.2 % (50.0-75.0) 08/23/18 14:50 Lymph % (Auto) 37.6 % (20.0-40.0) 08/23/18 14:50 [place] % (Auto) 4.7 % (0.0-10.0) 08/23/18 14:50 Eos % (Auto) 3.3 % (0.0-4.0) 08/23/18 14:50 Baso % (Auto) 1.2 % (0.0-2.0) 08/23/18 14:50 Neut # (Auto) 3.0 K/uL (1.8-7.0) 08/23/18 14:50 Lymph # (Auto) 2.1 K/uL (1.0-4.3) 08/23/18 14:50 [place] # (Auto) 0.3 K/uL (0.0-0.8) 08/23/18 14:50 Eos # (Auto) 0.2 K/uL (0.0-0.7) 08/23/18 14:50 Baso # (Auto) 0.1 K/uL (0.0-0.2) 08/23/18 14:50 Neutrophils % (Manual) 93 % (50-75) H 08/19/18 07:58 Band Neutrophils % 1 % (0-2) 08/19/18 07:58 Lymphocytes % (Manual) 5 % (20-40) L 08/19/18 07:58 Monocytes % (Manual) 1 % (0-10) 08/19/18 07:58 Basophils % (Manual) 1 % (0-2) 08/18/18 22:53 Platelet Estimate Normal (NORMAL) 08/19/18 07:58 Hypochromasia (manual) Slight 08/18/18 22:53 Poikilocytosis (manual Slight 08/18/18 22:53 Anisocytosis (manual) Slight 08/19/18 07:58 Microcytosis (manual) Slight 08/18/18 22:53 Target Cells Slight 08/18/18 22:53 PT 9.8 SECONDS (9.7-12.2) 08/18/18 22:53 INR 0.9 08/18/18 22:53 APTT 31.0 SECONDS (21-34) 08/18/18 22:53 Sodium 132 mmol/L (132-148) 08/23/18 14:50 Potassium 4.5 mmol/L (3.6-5.2) 08/23/18 14:50 Chloride 100 mmol/L (98-107) 08/23/18 14:50 Carbon Dioxide 25 mmol/L (22-30) 08/23/18 14:50 Anion Gap 12 (10-20) 08/23/18 14:50 BUN 30 mg/dL (7-17) H 08/23/18 14:50 Creatinine 5.0 mg/dL (0.7-1.2) H 08/23/18 14:50 Est GFR ( Amer) 12 08/23/18 14:50 Est GFR (Non-Af Amer) 10 08/23/18 14:50 POC Glucose (mg/dL) 102 mg/dL (65-110) 08/24/18 06:27 Random Glucose 179 mg/dL (65-105) H D 08/23/18 14:50 Calcium 8.2 mg/dl (8.6-10.4) L 08/23/18 14:50 Phosphorus 3.9 mg/dL (2.5-4.5) 08/23/18 14:50 Magnesium 2.0 mg/dL (1.6-2.3) 08/23/18 14:50 Total Bilirubin 0.2 mg/dL (0.2-1.3) 08/23/18 14:50 AST 17 U/L (14-36) 08/23/18 14:50 ALT 14 U/L (9-52) 08/23/18 14:50 Alkaline Phosphatase 112 U/L (38-126) 08/23/18 14:50 Total Protein 5.5 g/dL (6.3-8.3) L 08/23/18 14:50 Albumin 2.9 g/dL (3.5-5.0) L 08/23/18 14:50 Globulin 2.6 gm/dL (2.2-3.9) 08/23/18 14:50 Albumin/Globulin Ratio 1.1 (1.0-2.1) 08/23/18 14:50 Urine Color Yellow (YELLOW) 08/21/18 12:38 Urine Clarity Hazy (Clear) 08/21/18 12:38 Urine pH 8.0 (5.0-8.0) 08/21/18 12:38 Ur Specific [place] 1.017 (1.003-1.030) 08/21/18 12:38 Urine Protein 3+ mg/dL (NEGATIVE) H 08/21/18 12:38 Urine Glucose (UA) 2+ mg/dL (Normal) H 08/21/18 12:38 Urine Ketones Trace mg/dL (NEGATIVE) 08/21/18 12:38 Urine Blood Negative (NEGATIVE) 08/21/18 12:38 Urine Nitrate Negative (NEGATIVE) 08/21/18 12:38 Urine Bilirubin Negative (NEGATIVE) 08/21/18 12:38 Urine Urobilinogen Normal mg/dL (0.2-1.0) 08/21/18 12:38 Ur Leukocyte Esterase 1+ Kathy/uL (Negative) H 08/21/18 12:38 Urine WBC (Auto) 11 /hpf (0-5) H 08/21/18 12:38 Urine RBC (Auto) 2 /hpf (0-3) 08/21/18 12:38 Ur Squamous Epith Cells 23 /hpf (0-5) H 08/21/18 12:38 Urine Bacteria Mod (<OCC) H 08/21/18 12:38 B-Hydroxybutyrate 2.50 mM (0.02-0.27) H 08/19/18 07:58 - Hospital Course Hospital Course: On admission: Patient is a 28 year old female with past history of uncontrolled diabetes, diabetic gastroparesis, ESRD on HD (MWF), and pseudoseizures was brought in ambulance for intractable vomiting and abdominal pain and seizures started earlier today. She states that her abdominal pain has not changed from before, is diffusely located, sharp, constant without any aggravating or alleviating factors. She last went to hemodialysis on Thursday08/17/18 prior to her discharge from the hospital. She states she was unable to go to hemodialysis 08/18 because of her abdominal pain and vomiting. She describes her vomitus as nonbilious with bloody streaks. Patient has been here multiples times in the past for similar complaints and is well known to our service. She was discharged on 08/17/18 for similar complaints. Hospital Course: 28 year old female who presents for intractable vomiting, abdominal pain and pseudoseizures. Intractable vomiting with abdominal pain-improved, chronic Diabetic gastroparesis vs. psychogenic causes Reglan 5mg IV Q6 PRN Zofran 4mg Q6 PRN Protonix 40mg NS IV fluids @ 100 mls/hr GI, Dr. Brandon consulted, Gastric emptying study not able to be done at this time- consider study as outpatient when patient is eating normally. Advance diet as tolerated Anxiety/Depression/pseudoseizure, chronic Psych consulted- appreciate recs Seroquel 50mg PO TID Seroquel 100mg PO HS Klonopin 0.5mg PO TID Atarax 25mg Q6 PRN Lexapro 10mg po daily Ativan 1mg IV q6h prn Type 2 DM, chronic elevated blood sugars 500+ on 08/23/18 insulin adjusted based on 24 hour requirement: Lantus 14 units SC daily Regular insulin 5 units TIDAC RISS ACHS accucheck ACHS Hypoglycemic treatment protocol Beta hydroxybutyrate 2.5 ESRD on HD F Nephrology following: Dr. Nieves- appreciate recs Last session prior to admission on 08/17, missed 08/18 session Phos and calcium normal on repeat cmp Dr. Nieves consulted, help appreciated AVF revision was not done during last admission Uncontrolled HTN Clonidine 0.2mg TD weekly Losartan 25mg PO daily Coreg 6.25mg PO BID pending midline will sedate with Thorazine as patient is too agitated for midline team oral meds not possible at this time as patient continues to induce vomiting patient has poor access requiring midline access will use IV labetolol 10mg q4hprn for bp> 180 In ED, patient had elevated blood pressure in 200s. Losartan 25mg PO once - patient vomited it up Lopressor 5mg IV x2 given with improvement of BP to 158 systolic Clonidine patch applied. Enalapril given as per Nephro Prophylaxis Heparin 5000 units SC Protonix DISPO: Nausea/vomiting resolved. Monitor blood glucose. Case management and Dr. Mckeon to contact inpatient psych/med facilities for possible transfer-f/u. Discharge instructions: Patient is stable for discharge to home as per Dr. King Patient will receive script for following medications, which are new: Clonazepam 0.5mg Every 8 hours- this will be called into pharmacy by Dr. King Lexapro 20mg daily Seroquel 100mg at night in addition to your home Seroquel of 50mg three times a day Hydralazine 50mg three times per day You are to stop taking Sertraline 50mg daily, and now take Lexapro 20mg daily which has been started in the hospital. You are to resume your home meds: Amlodipine 5mg dialy carvedilol 6.25mg every 12 hours Atarax 50mg at night Losartan Potassium 25mg daily Reglan 10mg every 6hours Zofran 4mg every 6 hours Protonix 40mg once daily Seroquel 50mg Three times per day You are to resume you home insulin regimen Patient will need to follow up with Dr. King, Dr. Nieves (kidney doctor), Dr. Murphy (GI) and Dr. Mckeon (Psychiatry) within a week of discharge from hospital. Our social services designee has called your insurance to set up a [employer] for you. Your program manager rn will contact you. Patient should return to hospital if symptoms worsen or recur. Patient understands the plan as above and agrees. Patient has decided to make her own appointment with the [facility]. To contact [facility]. Access number is [phone]. Discharge Exam - Head Exam Head Exam: ATRAUMATIC, NORMOCEPHALIC - Additional Findings Additional findings: - Constitutional Appears: Non-toxic, No Acute Distress - Head Exam Head Exam: ATRAUMATIC, NORMOCEPHALIC - Eye Exam Eye Exam: EOMI, Normal appearance - ENT Exam ENT Exam: Mucous Membranes Moist - Neck Exam Neck Exam: Full ROM, Normal Inspection - Respiratory Exam Respiratory Exam: Clear to Ausculation Bilateral. absent: Rales, Rhonchi, Wheezes - Cardiovascular Exam Cardiovascular Exam: REGULAR RHYTHM, +S1, +S2 - GI/Abdominal Exam GI & Abdominal Exam: Soft, Normal Bowel Sounds. absent: Guarding, Rebound Additional comments: Grimaces on palpation of R sided abdomen, negative mir's, negative Mcburney's - Extremities Exam Extremities Exam: Full ROM, Normal Capillary Refill, Normal Inspection. absent: Calf Tenderness, Pedal Edema, Tenderness - Neurological Exam Neurological Exam: Alert, Awake, CN II-XII Intact (grossly), Oriented x3 Neuro motor strength exam: Left Upper Extremity: 5, Right Upper Extremity: 5, Left Lower Extremity: 5, Right Lower Extremity: 5 - Psychiatric Exam Psychiatric exam: Normal Affect, Normal Mood - Skin Skin Exam: Dry, Normal Color, Warm Discharge Plan - Discharge Medications Prescriptions: clonazePAM [Klonopin] 0.5 mg PO TID #90 tab Escitalopram [Lexapro] 20 mg PO DAILY #30 tab hydrALAZINE [Apresoline] 50 mg PO TID #90 tab QUEtiapine [Seroquel] 100 mg PO HS #30 tab - Follow Up Plan Condition: FAIR Disposition: HOME/ ROUTINE Instructions: Nausea and Vomiting, Adult (DC), Gastroparesis (Delayed Gastric Emptying) (DC), Clonazepam, Escitalopram, Hydralazine, Quetiapine, Dialysis and Diet, Acute Abdominal Pain (DC), Acute Abdominal Pain (GEN) Additional Instructions: Patient is stable for discharge to home as per Dr. King Patient will receive script for following medications, which are new: Clonazepam 0.5mg Every 8 hours- this will be called into pharmacy by Dr. King Lexapro 20mg daily Seroquel 100mg at night in addition to your home Seroquel of 50mg three times a day Hydralazine 50mg three times per day You are to stop taking Sertraline 50mg daily, and now take Lexapro 20mg daily which has been started in the hospital. You are to resume your home meds: Amlodipine 5mg dialy carvedilol 6.25mg every 12 hours Atarax 50mg at night Losartan Potassium 25mg daily Reglan 10mg every 6hours Zofran 4mg every 6 hours Protonix 40mg once daily Seroquel 50mg Three times per day You are to resume you home insulin regimen Patient will need to follow up with Dr. King, Dr. Nieves (kidney doctor), Dr. Murphy (GI) and Dr. Mckeon (Psychiatry) within a week of discharge from hospital. Our social services designee has called your insurance to set up a [employer] for you. Your program manager rn will contact you. Patient should return to hospital if symptoms worsen or recur. Patient understands the plan as above and agrees. Patient has decided to make her own appointment. To contact [facility]. Access number is [phone]. Referrals: Jomar Mckeon MD [Staff Provider] - Reza King Jr., MD [Medical Doctor] - Migue Nieves MD [Staff Provider] - Porfirio Murphy MD [Staff Provider] -
[2018-08-24 17:12] VITALS: BP 153/102; PULSE 79; RESP 20; TEMP 98; O2SAT 99
== END 2018-08-24 18:58 | disposition home or self-care (01) | DRG 18 ==
LOC: C.ER 19:55 → C.9E 22:06 → C.5S 22:30 → OBSVTOIN 08-20 16:30 → C.5S 08-24 14:38
PROVIDERS: ADMIT Internal Medicine; ATTEND Internal Medicine
PROC: 05HY33Z Insertion of Infusion Device into Upper Vein, Percutaneous Approach (ICD-10-PCS; principal; 2018-08-20)
PROC: 5A1D70Z Performance of Urinary Filtration, Intermittent, Less than 6 Hours Per Day (ICD-10-PCS; 2018-08-20)
DX: E11.43 Type 2 diabetes mellitus with diabetic autonomic (poly)neuropathy (principal); E86.9 Volume depletion, unspecified; I12.0 Hypertensive chronic kidney disease with stage 5 chronic kidney disease or end stage renal disease; N18.6 End stage renal disease; E11.65 Type 2 diabetes mellitus with hyperglycemia; K31.84 Gastroparesis; D63.1 Anemia in chronic kidney disease; F05 Delirium due to known physiological condition; F32.9 Major depressive disorder, single episode, unspecified; F41.1 Generalized anxiety disorder; G40.89 Other seizures; F60.9 Personality disorder, unspecified; E11.22 Type 2 diabetes mellitus with diabetic chronic kidney disease; Z99.2 Dependence on renal dialysis; E11.10 Type 2 diabetes mellitus with ketoacidosis without coma; F44.9 Dissociative and conversion disorder, unspecified; D72.829 Elevated white blood cell count, unspecified; R45.1 Restlessness and agitation; Z79.4 Long term (current) use of insulin

== ENCOUNTER 2018-08-27 16:31 | Inpatient (IN) | payer MEDICAID ==
[2018-08-27 17:03] VITALS: BMI 26.4
--- NOTE | 2018-08-27 17:38 | C.PDOC ---
History Of Present Illness 28 y/o female, with history of gastroparesis, diabetes, and ESRD, presents to ED complaining of constant abdominal pain since this morning. Patient describes the pain as a burning sensation. Also complains of spitting. Denies any fever, chills, diarrhea, chest pain, or SOB. Last menstrual period was approximately 3 years ago. Time Seen by Provider: 08/27/18 16:44 Chief Complaint (Nursing): Abdominal Pain History Per: Patient History/Exam Limitations: no limitations Onset/Duration Of Symptoms: Hrs Current Symptoms Are (Timing): Still Present Past Medical History Reviewed: Historical Data, Nursing Documentation, Vital Signs Vital Signs: Last Vital Signs Temp 98 F 08/27/18 16:41 Pulse 118 H 08/27/18 16:41 Resp 22 08/27/18 16:41 BP 191/148 H 08/27/18 16:41 Pulse Ox 99 08/27/18 16:41 Primary Care Provider: Reza King Jr. - Medical History PMH: Anemia, Anxiety, Bronchitis, Depression, Diabetes, HTN, End Stage Renal Disease (with dialysis catheter), Chronic Kidney Disease, Seizures (Pseudo seizures?) Denies: Deep Vein Thrombosis, HIV Surgical History: Appendectomy, Endoscopy Denies: Pacemaker - [facility] Procedures (08/20/18) (02/23/18) BYPASS LEFT BRACHIAL ARTERY TO UPPER ARM VEIN, OPEN APPROACH (04/28/18) EXCISION OF STOMACH, ENDO, DIAGN (11/02/16) EXCISION OF STOMACH, PYLORUS, ENDO, DIAGN (03/10/17) FLUOROSCOPY OF RIGHT SUBCLAVIAN VEIN, GUIDANCE (01/16/18) GROUP PSYCHOTHERAPY (06/09/17) INDIVIDUAL PSYCHOTHERAPY, SUPPORTIVE (06/09/17) INSERT INFUSION DEV IN L EXT JUGULAR VEIN, PERC (05/29/18) INSERTION OF INFUSION DEV INTO L FEMOR VEIN, PERC APPROACH (02/23/18) INSERTION OF INFUSION DEV INTO L SUBCLAV VEIN, PERC APPROACH (10/28/16) INSERTION OF INFUSION DEV INTO R SUBCLAV VEIN, PERC APPROACH (01/16/18) INSERTION OF INFUSION DEV INTO SUP VENA CAVA, PERC APPROACH (11/23/17) INSERTION OF INFUSION DEVICE INTO UPPER VEIN, PERC APPROACH (08/20/18) INTRODUCTION OF NUTRITIONAL INTO PERIPH VEIN, PERC APPROACH (10/16/16) MEDICATION MANAGEMENT (06/09/17) ULTRASONOGRAPHY OF SUPERIOR VENA CAVA, GUIDANCE (10/16/16) Family History: States: No Known Family Hx - Social History Hx Tobacco Use: No Hx Alcohol Use: No Hx Substance Use: No - Immunization History Hx Tetanus Toxoid Vaccination: No Hx Influenza Vaccination: Yes Hx Pneumococcal Vaccination: Yes Review Of Systems Except As Marked, All Systems Reviewed And Found Negative. Constitutional: Negative for: Fever, Chills ENT: Positive for: Other (Spitting) Cardiovascular: Negative for: Chest Pain Respiratory: Negative for: Shortness of Breath Gastrointestinal: Positive for: Abdominal Pain. Negative for: Diarrhea Physical Exam - Physical Exam Appears: Non-toxic, No Acute Distress Skin: Warm, Dry Head: Normacephalic Eye(s): bilateral: Normal Inspection Oral Mucosa: Moist Neck: Supple Chest: Other (cath in right upper chest) Cardiovascular: Rhythm Regular, No Murmur Respiratory: Normal Breath Sounds, No Rales, No Rhonchi, No Wheezing Gastrointestinal/Abdominal: Soft, Tenderness (diffuse tenderness), No Guarding, No Rebound, Other (cath for insulin pump on left lower abdomen) Extremity: Bilateral: Atraumatic, Normal ROM Neurological/Psych: Oriented x3, Normal Speech ED Course And Treatment - Laboratory Results Result Diagrams: 09/01/18 15:18 09/01/18 15:18 O2 Sat by Pulse Oximetry: 99 (RA) Pulse Ox Interpretation: Normal Medical Decision Making Medical Decision Making: Plan: --EKG --Labs --Obstructive series --Reglan 10 mg IVP Patient signed out to oncoming EDMD pending results of w/u and dispo. Disposition - Disposition Disposition: HOSPITALIZED Disposition Time: 23:00 Condition: GOOD - Clinical Impression Clinical Impression: Gastroparesis, ESRD (end stage renal disease) on dialysis, Intractable nausea and vomiting, Intractable abdominal pain - Scribe Statement The provider has reviewed the documentation as recorded by the Jw Jenkins Provider Attestation: All medical record entries made by the Monoibelvis were at my direction and personally dictated by me. I have reviewed the chart and agree that the record accurately reflects my personal performance of the history, physical exam, medical decision making, and the department course for this patient. I have also personally directed, reviewed, and agree with the discharge instructions and disposition.
[2018-08-27 19:11] LABS: BASO % 0.2 % (0.0-2.0); HEMOGLOBIN 11.5 g/dL (11.0-16.0); LYMPH # 1.1 K/uL (1.0-4.3); LYMPH % 10.3 % (20.0-40.0); MEAN CELL VOLUME 80.3 fL (81.0-99.0); MEAN CORPUSCULAR HEMOGLOBIN 25.8 pg (27.0-31.0); MEAN CORPUSCULAR HGB CONC 32.2 g/dL (33.0-37.0); MONO # 0.2 K/uL (0.0-0.8); MONO % 2.3 % (0.0-10.0); NEUT # 9.1 K/uL (1.8-7.0); NEUT % 87.2 % (50.0-75.0); RBC 4.43 Mil/uL (3.80-5.20); RED CELL DISTRIBUTION WIDTH 18.3 % (11.5-14.5); WHITE BLOOD COUNT 10.4 K/uL (4.8-10.8)
[2018-08-27 19:20] LABS: ALB/GLOB RATIO 1.2 (1.0-2.1); ALBUMIN 4.4 g/dL (3.5-5.0); ALT/SGPT 21 U/L (9-52); AST/SGOT 36 U/L (14-36); BLOOD UREA NITROGEN 47 mg/dL (7-17); CALCIUM 10.9 mg/dl (8.6-10.4); GFR NON-AFRICAN AMERICAN 9; LIPASE 45 U/L (23-300)
[2018-08-27] MEDS ORDERED: Potassium Phosphate 15 MMOLE in Dextrose 5% In Water 250 ML IVPB ONE (20:15)
[2018-08-27] MEDS ORDERED: Dextrose 50% SYRINGE Inj (50 ml) ONE (20:19)
[2018-08-27] MEDS ORDERED: Dextrose 50% SYRINGE Inj (50 ml) IVP STA (20:19)
[2018-08-27] MEDS ORDERED: Sodium Chloride 0.9% 500 ML IV ONE (20:44)
[2018-08-27] MEDS ORDERED: Dextrose 50% SYRINGE Inj (50 ml) IV PRN (23:48)
[2018-08-27] MEDS ORDERED: Glucagon Recombinant 1 mg Inj IM PRN (23:48)
[2018-08-28] MEDS ORDERED: Labetalol 5mg/ml (4ml) IVP PRN (00:18)
--- NOTE | 2018-08-28 00:25 | CP.PCM.HP ---
History of Present Illness - History of Present Illness History of Present Illness: PGY-[address] History and Physical [address] King HPI: Patient is a 28 year old female with past history of uncontrolled diabetes, diabetic gastroparesis, ESRD on HD (MWF), and pseudoseizures was brought in ambulance for chief complaints of intractable vomiting and abdominal pain and seizures started earlier today. Patient was recently discharged from [facility] on 08/24 for the same chief complaints. Per patient's mother at bedside, she had be en doing well for two days following discharge on her newly adjusted medications for medical and psych issues. However this morning, patient began again yelling that her stomach was hurting and that she was nauseous. Patient required isolated room in ER because of yelling/screaming. Patient uses an insulin pump at home for DM and attends dialysis [facility] for CKD. Patient is yelling that she is in pain asking for pain medication, however she is known to exhibit medication- seeking behavior and has been seen on last admission by GI and is on medications for her abdominal pain (though she is not cooperative to participate in swallow study to evaluate for DM gastroparersis per recent GI note). Further ROS unable to be obtained due to lack of cooperation by patient. PMHx: DM type 1, diabetic gastroparesis, ESRD, pseudoseizures, anxiety, depression PSHx: appendectomy, AVF Allergies: NKDA Famhx: Maternal grandmother with unknown heart disease Social Hx: former smoker quit 6 years ago, denies tobacco and alcohol use Meds: see MAR Present on Admission - Present on Admission Any Indicators Present on Admission: Yes History of Uncontrolled Diabetes: Yes Review of Systems - Review of Systems Systems not reviewed;Unavailable: Uncooperative Past Patient History - Infectious Disease Hx of Infectious Diseases: None - Past Medical History & Family History Past Medical History?: Yes - Past Social History Smoking Status: Never Smoked - CARDIAC Hx Hypertension: Yes Hx Pacemaker: No - PULMONARY Hx Bronchitis: Yes - NEUROLOGICAL Hx Seizures: Yes (Pseudo seizures?) - HEENT Hx HEENT Problems: Yes Hx Cataracts: Yes - RENAL Hx Chronic Kidney Disease: Yes - ENDOCRINE/METABOLIC Hx Endocrine Disorders: Yes Hx Diabetes Mellitus Type 2: Yes (on insulin pump) - HEMATOLOGICAL/ONCOLOGICAL Hx Anemia: Yes Hx Human Immunodeficiency Virus (HIV): No - INTEGUMENTARY Hx Dermatological Problems: No - MUSCULOSKELETAL/RHEUMATOLOGICAL Hx Musculoskeletal Disorders: Yes Hx Falls: Yes - GASTROINTESTINAL Hx Gastrointestinal Disorders: Yes (SEE COMMENT) Other/Comment: gastroparesis - GENITOURINARY/GYNECOLOGICAL Hx Genitourinary Disorders: No - PSYCHIATRIC Hx Anxiety: Yes Hx Depression: Yes Hx Substance Use: No - SURGICAL HISTORY Hx Appendectomy: Yes - ANESTHESIA Hx Anesthesia: Yes Hx Anesthesia Reactions: No Hx Malignant Hyperthermia: No Meds Allergies/Adverse Reactions: Allergies Allergy/AdvReac Type Severity Reaction Status Date / Time No Known Allergies Allergy Verified 08/27/18 16:41 Physical Exam - Constitutional Appears: Combative, Agitated Additional comments: Physical exam attempted, patient difficult to examine due to flailing arms violently - Head Exam Head Exam: ATRAUMATIC, NORMOCEPHALIC Additional comments: vomit on face - Eye Exam Eye Exam: EOMI - ENT Exam ENT Exam: Mucous Membranes Moist - Respiratory Exam Respiratory Exam: Clear to Auscultation Bilateral, NORMAL BREATHING PATTERN. absent: Rales, Rhonchi, Wheezes - Cardiovascular Exam Cardiovascular Exam: REGULAR RHYTHM, +S1, +S2 - GI/Abdominal Exam Additional comments: Patient deferred - Extremities Exam Extremities exam: Negative for: pedal edema, tenderness - Neurological Exam Neurological exam: Alert, CN II-XII Intact - Psychiatric Exam Psychiatric exam: Agitated - Skin Skin Exam: Dry, Intact Results - Vital Signs Recent Vital Signs: Last Vital Signs Temp 98 F 08/27/18 16:41 Pulse 70 08/27/18 22:00 Resp 18 08/27/18 22:00 BP 168/98 H 08/27/18 22:00 Pulse Ox 99 08/27/18 22:00 - Labs Result Diagrams: 08/27/18 18:53 08/27/18 18:53 Labs: Laboratory Results - last 24 hr 08/27/18 08/27/18 08/27/18 18:53 18:53 18:53 WBC 10.4 D RBC 4.43 Hgb 11.5 D Hct 35.6 MCV 80.3 L MCH 25.8 L MCHC 32.2 L RDW 18.3 H Plt Count 341 D MPV 9.0 Neut % (Auto) 87.2 H Lymph % (Auto) 10.3 L [place] % (Auto) 2.3 Eos % (Auto) 0.0 Baso % (Auto) 0.2 Neut # (Auto) 9.1 H Lymph # (Auto) 1.1 [place] # (Auto) 0.2 Eos # (Auto) 0.0 Baso # (Auto) 0.0 Sodium 141 Potassium 4.1 Chloride 102 Carbon Dioxide 21 L Anion Gap 23 H BUN 47 H Creatinine 5.5 H Est GFR ( Amer) 11 Est GFR (Non-Af Amer) 9 POC Glucose (mg/dL) Random Glucose 115 H D Calcium 10.9 H Phosphorus 0.9 L* Magnesium 2.2 Total Bilirubin 0.4 AST 36 D ALT 21 Alkaline Phosphatase 138 H D Troponin I 0.0230 Total Protein 7.9 Albumin 4.4 Globulin 3.5 Albumin/Globulin Ratio 1.2 Lipase 45 Beta HCG, Quant < 2.39 Alcohol, Quantitative < 10 08/27/18 08/27/18 08/27/18 20:07 20:09 20:31 WBC RBC Hgb Hct MCV MCH MCHC RDW Plt Count MPV Neut % (Auto) Lymph % (Auto) [place] % (Auto) Eos % (Auto) Baso % (Auto) Neut # (Auto) Lymph # (Auto) [place] # (Auto) Eos # (Auto) Baso # (Auto) Sodium Potassium Chloride Carbon Dioxide Anion Gap BUN Creatinine Est GFR ( Amer) Est GFR (Non-Af Amer) POC Glucose (mg/dL) 46 L 41 L > 500 H* Random Glucose Calcium Phosphorus Magnesium Total Bilirubin AST ALT Alkaline Phosphatase Troponin I Total Protein Albumin Globulin Albumin/Globulin Ratio Lipase Beta HCG, Quant Alcohol, Quantitative 08/27/18 20:53 WBC RBC Hgb Hct MCV MCH MCHC RDW Plt Count MPV Neut % (Auto) Lymph % (Auto) [place] % (Auto) Eos % (Auto) Baso % (Auto) Neut # (Auto) Lymph # (Auto) [place] # (Auto) Eos # (Auto) Baso # (Auto) Sodium Potassium Chloride Carbon Dioxide Anion Gap BUN Creatinine Est GFR ( Amer) Est GFR (Non-Af Amer) POC Glucose (mg/dL) 175 H Random Glucose Calcium Phosphorus Magnesium Total Bilirubin AST ALT Alkaline Phosphatase Troponin I Total Protein Albumin Globulin Albumin/Globulin Ratio Lipase Beta HCG, Quant Alcohol, Quantitative Assessment & Plan - Assessment and Plan (Free Text) Assessment: Patient is a 28 year old female with past history of uncontrolled diabetes, diabetic gastroparesis, ESRD on HD (MWF), and presenting with intractable vomiting and abdominal pain. Patient has had frequent hospital admissions in the past for the same complaints, was recently discharged on 08/24. Patient's medication regimen resumed overnight as per her most recent discharge, for which she had been admitted with the same complaints of intractable abdominal pain and nausea, also known to have pseudoseizures. Hospital Course: 28 year old female who presents for intractable vomiting, abdominal pain and pseudoseizures. Intractable vomiting with abdominal pain-improved, chronic Diabetic gastroparesis vs. psychogenic causes Meds -Reglan 5mg IV Q6 PRN -Zofran 4mg Q6 PRN -Protonix 40mg daily No IVF overnight 2/2 HTN, no electrolyte imbalance presently Anxiety/Depression/pseudoseizure, chronic Psych consulted- appreciate recs Meds -Seroquel 50mg PO TID -Seroquel 100mg PO HS -Klonopin 0.5mg PO TID -Atarax 25mg Q6 PRN -Lexapro 20mg po daily Type 2 DM, chronic elevated blood sugars 500+ on admission ISS high RISS ACHS accucheck ACHS Hypoglycemic treatment protocol ESRD on HD F Nephrology following: Dr. Nieves- appreciate recs Cr 5.5 (from 5.0 on 08/24 discharge) Uncontrolled HTN Meds -Amlodipine 5 mg PO daily -Losartan 25mg PO daily -Coreg 6.25mg PO BID -will use IV labetolol 10mg q4hprn for bp> 180 Prophylaxis Heparin 5000 units SC Protonix 40 mg PO daily - home med Assessment and plan d/w Dr. Christine Jasmine, PGY-1
[2018-08-28 02:42] LABS: BARBITURATES, UR NEGATIVE (NEGATIVE); BENZODIAZEPINES, UR NEGATIVE (NEGATIVE); OPIATES, UR NEGATIVE (NEGATIVE); PHENCYCLIDINE, UR NEGATIVE (NEGATIVE)
[2018-08-28] MEDS ORDERED: (Novolin R) Insulin Human Regular 100 units/ml vial SC ONE ×2 (03:24→12:33)
[2018-08-28] MEDS ORDERED: Labetalol 5mg/ml (4ml) IVP STA (03:25)
--- NOTE | 2018-08-28 03:39 | PCM.FALL ---
Post Fall Progress Note - Post Fall Fall Date: 08/28/18 Fall Time: 03:12 Description of Fall: PGY-1 Code Star Note Patient in room with mother and sister who witnessed her jump backwards out of her bed onto the floor. They are unsure if the patient hit her head. She continues to cry and scream as she was when I saw her previously in the ED and on previous admissions. Patient has been persistently tachycardic. Blood sugar found to be elevated above 500 on accucheck. Additional 5 U regular insulin and 10 mg Labetolol IV administered. Patient to go for CT of the head without contrast. Patient placed on 1:1 observation - Post Fall Exam Vital Sign: Temp Pulse Resp BP Pulse Ox 97.9 F 100 H 22 170/98 H 100 08/28/18 01:10 08/28/18 01:10 08/28/18 01:10 08/28/18 01:10 08/28/18 01:10 Skull Exam: Negative for: Scalp wound, Scalp hematoma Eye Exam: Positive for: Pupils equal Ear Exam: Negative for: Discharge, Bleeding Nose Exam: Negative for: Discharge, Bleeding Skin Exam: Negative for: Colour, Lacerations, Grazes, Bruising Mouth Exam: Negative for: Tongue bitten Neck Exam: Negative for: Tenderness, Tingling Spinal Exam: Negative for: Tenderness, Tingling Chest Exam: Negative for: Difficulty breathing Abdomen Exam: Negative for: Tenderness Arm Exam: Negative for: Deformity Leg Exam: Negative for: Deformity
--- NOTE | 2018-08-28 05:10 | CP.PCM.PCO ---
Physician Communication Note - Physician Communication Note Physician Communication Note: Patient would not cooperate for CT scan
[2018-08-28] MEDS: (Novolin R) Insulin Human Regular 100 units/ml vial SC SCH ×4 (08:23→21:59)
--- NOTE | 2018-08-28 09:57 | CP.PCM.PN ---
Subjective - Date & Time of Evaluation Date of Evaluation: 08/28/18 Time of Evaluation: 09:56 - Subjective Subjective: Progress note for Dr. King. Patient seen and examined at bedside. Patient sitting in bed in no acute distress then starts crying immediately when I walk into the room. States she can't take it anymore and needs something for the pain. Unable to obtain ROS as patient is hysterical. Objective - Vital Signs/Intake and Output Vital Signs (last 24 hours): Temp Pulse Resp BP Pulse Ox 98.0 F 124 H 20 178/114 H 100 08/28/18 07:00 08/28/18 07:00 08/28/18 07:00 08/28/18 07:00 08/28/18 07:00 - Medications Medications: Current Medications Amlodipine Besylate (Norvasc) 5 mg PO DAILY [facility] Carvedilol (Coreg) 6.25 mg PO BID [facility] Clonazepam (Klonopin) 0.5 mg PO TID PRN PRN Reason: Anxiety Last Admin: 08/28/18 01:17 Dose: 0.5 mg Dextrose (Dextrose 50% Inj) 0 ml IV STAT PRN; Protocol PRN Reason: Hypoglycemia Protocol Dextrose (Glutose 15) 0 gm PO ONCE PRN; Protocol PRN Reason: Hypoglycemia Protocol Escitalopram Oxalate (Lexapro) 20 mg PO DAILY [facility] Glucagon (Glucagen Diagnostic Kit) 0 mg IM STAT PRN; Protocol PRN Reason: Hypoglycemia Protocol Heparin Sodium (Porcine) (Heparin) 5,000 units SC Q8 [facility] Last Admin: 08/28/18 07:07 Dose: Not Given Hydralazine HCl (Apresoline) 50 mg PO TID [facility] Hydroxyzine HCl (Atarax) 25 mg PO QID PRN PRN Reason: Anxiety Dextrose (Dextrose 5% In Water 1000 Ml) 1,000 mls @ 0 mls/hr IV .Q0M PRN; Protocol PRN Reason: Hypoglycemia Protocol Insulin Human Regular (Novolin R) 0 unit SC ACHS [facility]; Protocol Last Admin: 08/28/18 08:23 Dose: 12 units Labetalol HCl (Trandate) 10 mg IVP Q4H PRN PRN Reason: Systolic Blood Pressure Losartan Potassium (Cozaar) 25 mg PO DAILY [facility] Metoclopramide HCl (Reglan) 10 mg IVP Q6H PRN PRN Reason: Nausea/Vomiting Last Admin: 08/28/18 08:23 Dose: 10 mg Ondansetron HCl (Zofran Inj) 4 mg IVP Q6H PRN PRN Reason: Nausea/Vomiting Pantoprazole Sodium (Protonix Ec Tab) 40 mg PO DAILY [facility] Quetiapine Fumarate (Seroquel) 50 mg PO TID [facility] Quetiapine Fumarate (Seroquel) 100 mg PO HS [facility] - Labs Labs: 08/27/18 18:53 08/27/18 18:53 - Constitutional Appears: Non-toxic, No Acute Distress - Head Exam Head Exam: NORMAL INSPECTION - Eye Exam Eye Exam: EOMI, Normal appearance - ENT Exam ENT Exam: Mucous Membranes Moist - Neck Exam Neck Exam: Full ROM, Normal Inspection - Respiratory Exam Respiratory Exam: Clear to Ausculation Bilateral. absent: Rales, Rhonchi, Wheezes - Cardiovascular Exam Cardiovascular Exam: REGULAR RHYTHM, +S1, +S2 - GI/Abdominal Exam GI & Abdominal Exam: Soft. absent: Distended, Firm, Guarding, Rigid, Rebound Additional comments: Grimaces on palpation abdomen diffusely - Neurological Exam Neurological Exam: Alert, Awake, Oriented x3 Additional comments: Moving all extremities. - Psychiatric Exam Additional comments: Crying, screaming. - Skin Skin Exam: Dry, Normal Color, Warm Assessment and Plan - Assessment and Plan (Free Text) Plan: Patient is a 28 year old female with past history of uncontrolled diabetes, diabetic gastroparesis, ESRD on HD (MWF), and presenting with intractable vomiting and abdominal pain. Patient has had frequent hospital admissions in the past for the same complaints, was recently discharged on 08/24. Patient's medication regimen resumed overnight as per her most recent discharge, for which she had been admitted with the same complaints of intractable abdominal pain and nausea, also known to have pseudoseizures. Hospital Course: 28 year old female who presents for intractable vomiting, abdominal pain and pseudoseizures. Intractable vomiting with abdominal pain-improved, chronic Diabetic gastroparesis vs. psychogenic causes Meds -Reglan 5mg IV Q6 PRN -Zofran 4mg Q6 PRN -Protonix 40mg daily No IVF overnight 2/2 HTN, no electrolyte imbalance presently Anxiety/Depression/pseudoseizure, chronic Psych consulted- appreciate recs Meds -Seroquel 50mg PO TID -Seroquel 100mg PO HS -Klonopin 0.5mg PO TID -Atarax 25mg Q6 PRN -Lexapro 20mg po daily -Ativan 1mg Q4H PRN Type 2 DM, chronic elevated blood sugars 500+ on admission ISS high RISS ACHS accucheck ACHS Hypoglycemic treatment protocol ESRD on HD [facility] Nephrology following: Dr. Nieves- appreciate recs Uncontrolled HTN Meds -Amlodipine 5 mg PO daily -Losartan 25mg PO daily -Coreg 6.25mg PO BID -will use IV labetolol 10mg q4hprn for bp> 180 Prophylaxis Heparin 5000 units SC Protonix 40 mg PO daily - home med NPO due to vomiting, advance diet as tolerated. Assessment and plan d/w Dr. Christine Stewart, PGY-1
[2018-08-28] MEDS ORDERED: Losartan 12.5 MG TAB PO SCH (10:00)
[2018-08-28] MEDS ORDERED: Sodium Chloride 0.9% 250 ML IV ONE (10:03)
[2018-08-28] MEDS: Sodium Chloride 0.9% 1,000 ML IV SCH ×2 (11:06→21:41)
--- NOTE | 2018-08-28 11:32 | PCM.PSYCH ---
Initial Psychiatric Evaluation - Initial Psychiatric Evaluation Type of Admission: Voluntary Legal Status: Capacity History of Present Illness and Precipitating Events: The pt is seen, chart reviewed and case discussed. Consult was requested for her psych sxs. She is well-known from many previous consults She was just discharged from hospital after finally somewhat stabilizing her condition but she says she was fine for 2 days and on the third day her "pain came back" and she came to ED. She protests that she was tod it was "psychiatric" Portable Track Line Marker tried to explain to no avail. Denies SI, HI, AVH/del and claims she did take her meds (lexapro, seroquel and klonopn) From previous admissions: She is a 28 y/o female, single, with no child, lives with her mother, unemployed as she lost her job at [employer] in July 2016. She reported some "hypoglycemia" induced seizures, which started 6 years ago. 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 She was upset that people do not believe her. However, even this data analyst report writer witnessed one of them in the past and she would feign a seizure and ask immediately for ativan in a second or two. EEG was "normal" She admitted in the past that she had been stressed b/c of a break up with her GF who later , and b/c of losing her job. She is now more worried and angry about her "pain." She is depressed and is very anxious. 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 She eventually developed ESRD and is now on HD. Portable Track Line Marker spoke to her mo too and she said that the pt was somewhat better at home. She also reported that the pt was confused and hallucinating yesterday - likely delirium due to medical issues. Today, she is not confused. Pt also voiced SI - wishing to . No plans or urge now - she is on 1:1 though She fulfills criteria for major depression and generalized anxiety. Feels very anaya and irate too. No drug/alcohol hx No trauma hx except for the abovementioned losses. Past psych hx: She was never able to attend a senior care program b/c of multiple medical admissions. She had been depressed, anxious and having pseudoseizures a long time Family psych hx: Denies Med hx: ESRD, secondary HTN, cataracts and DM and alleged gastroparesis Current Medications: Active Medications Generic Name Dose Route Start Last Admin Trade Name Freq PRN Reason Stop Dose Admin Amlodipine Besylate 5 mg 08/28/18 10:00 Norvasc PO DAILY [facility] Carvedilol 6.25 mg 08/28/18 10:00 Coreg PO BID [facility] Clonazepam 0.5 mg 08/27/18 23:39 08/28/18 01:17 Klonopin PO 0.5 mg TID PRN Administration Anxiety Dextrose 0 ml 08/27/18 23:48 Dextrose 50% Inj IV STAT PRN Hypoglycemia Protocol Protocol Dextrose 0 gm 08/27/18 23:48 Glutose 15 PO ONCE PRN Hypoglycemia Protocol Protocol Escitalopram Oxalate 20 mg 08/28/18 10:00 Lexapro PO DAILY [facility] Glucagon 0 mg 08/27/18 23:48 Glucagen Diagnostic Kit IM STAT PRN Hypoglycemia Protocol Protocol Heparin Sodium (Porcine) 5,000 units 08/28/18 06:00 08/28/18 07:07 Heparin SC Not Given Q8 [facility] Hydralazine HCl 50 mg 08/28/18 10:00 Apresoline PO TID [facility] Hydroxyzine HCl 25 mg 08/27/18 23:38 Atarax PO QID PRN Anxiety Dextrose 1,000 mls @ 0 mls/hr 08/27/18 23:48 Dextrose 5% In Water 1000 Ml IV .Q0M PRN Hypoglycemia Protocol Protocol Per Protocol Sodium Chloride 1,000 mls @ 100 mls/hr 08/28/18 10:15 08/28/18 11:06 Sodium Chloride 0.9% IV 100 mls/hr .Q10H [facility] Administration Insulin Human Regular 0 unit 08/28/18 07:30 08/28/18 08:23 Novolin R SC 12 units ACHS [facility] Administration Protocol Labetalol HCl 10 mg 08/28/18 00:18 Trandate IVP Q4H PRN Systolic Blood Pressure Lorazepam 1 mg 08/28/18 09:57 Ativan IVP Q6H PRN Anxiety Losartan Potassium 25 mg 08/28/18 10:00 Cozaar PO DAILY [facility] Metoclopramide HCl 10 mg 08/28/18 08:05 08/28/18 08:23 Reglan IVP 10 mg Q6H PRN Administration Nausea/Vomiting Ondansetron HCl 4 mg 08/28/18 08:07 08/28/18 11:07 Zofran Inj IVP 4 mg Q6H PRN Administration Nausea/Vomiting Pantoprazole Sodium 40 mg 08/28/18 10:00 Protonix Ec Tab PO DAILY [facility] Quetiapine Fumarate 50 mg 08/28/18 10:00 08/28/18 11:10 Seroquel PO Not Given TID [facility] Quetiapine Fumarate 100 mg 08/27/18 23:30 Seroquel PO HS [facility] Past Psychiatric History - Past Psychiatric History Pertinent Medical Hx (Current Medical&Sleep Prob, Allergies): Allergies Allergy/AdvReac Type Severity Reaction Status Date / Time No Known Allergies Allergy Verified 08/27/18 16:41 Insulin Detemir [Levemir] 10 unit SC HS #1 unit 08/07/18 Insulin Detemir [Levemir] 20 units SC DAILY #2 vial 08/07/18 Insulin Human Regular [Novolin R] 5 unit SC ACHS #1 unit 08/07/18 Metoclopramide [Reglan] 1 tab PO QID #20 tab 08/07/18 Ondansetron HCl [Zofran] 1 tab PO Q6 PRN #20 tablet 08/07/18 Pantoprazole [Protonix EC Tab] 1 tab PO DAILY #30 ect 08/07/18 amLODIPine [Norvasc] 1 tab PO DAILY #30 tab 08/07/18 hydrOXYzine HCl [Atarax] 1 tab PO HS PRN #7 tab 08/07/18 Carvedilol [Coreg] 6.25 mg PO Q12 #60 tab 08/16/18 Insulin Aspart/Insulin Aspar [Novolog Mix 70/30 (70/30 units/ml)] 10 units SC HS #1 vial 08/16/18 Insulin Aspart/Insulin Aspar [Novolog Mix 70/30 (70/30 units/ml)] 20 units SC DAILY #1 vial 08/16/18 Losartan Potassium 1 tab PO DAILY #30 tablet 08/16/18 QUEtiapine [SEROquel] 50 mg PO TID #90 tab 08/16/18 cloNIDine 0.2 mg/24 hr [catapres-TTS2 0.2 mg/24 hr] 1 patch TD QWK #7 patch 08/16/18 Carvedilol [Coreg] 6.25 mg PO BID #0 tab 08/24/18 Escitalopram [Lexapro] 20 mg PO DAILY #30 tab 08/24/18 QUEtiapine [SEROquel] 50 mg PO TID tab 08/24/18 QUEtiapine [Seroquel] 100 mg PO HS #30 tab 08/24/18 cloNIDine 0.2 mg/24 hr [catapres-TTS2 0.2 mg/24 hr] 1 patch TD Q7D@1000 patch 08/24/18 clonazePAM [Klonopin] 0.5 mg PO TID #90 tab 08/24/18 hydrALAZINE [Apresoline] 50 mg PO TID #90 tab 08/24/18 Review of Systems - Psychiatric Psychiatric: Abnormal Sleep Pattern, Anhedonia, Anxiety, Change in Appetite, Depression, Difficulty Concentrating, Irritability. absent: Hallucinations, Homicidal Ideation, Suicidal Ideation Mental Status Examination - Personal Presentation Personal Presentation: Looks older than stated age (unkempt, uncooperative, loud at times) - Affect Affect: Constricted - Motor Activity Motor Activity: Psychomotor Agitation - Reliability in Providing Information Reliability in Providing Information: Fair - Speech Speech: Organized - Mood Mood: Depressed, Anxious - Formal Thought Process Formal Thought Process: No Impairment - Cognitive Functions Orientation: Person, Place, Situation, Time Sensorium: Alert Attention/Concentration: Easily distracted Estimate of Intelligence: Average Judgement: Imparied, as evidence by: Poor judgement Memory: Recent intact, as evidence by: Ability to recall events of the day, Remote intact, as evidenced by: Ability to recall historical events - Risk Risk: Diminished functioning - Strength & Assets Inventory Strength & Assets Inventory: Family support, Cooperative - Limitations Limitations: Other DSM 5 DX - DSM 5 DSM 5 Diagnosis: Major depressive d/o - recurrent, severe without psychosis Conversion d/o (pseudo-seizures) Factitious d/o Personality disorder Generalized anxiety d/o - Recommended/Plan of Treatment Treatment Recommendations and Plan of Treatment: Resume meds: Lexapro for depression and anxiety Seroquel for mood swings, irritability PRN Atarax and inderal for anxiety Klonopin for anxiety. She is overusing ativan otherwise. Ativan can be d/c'ed She is fixated on ativan Limit setting, support, psychoeducation SW should contact [facility] to [facility]'s CM program to help pt avoid revolver door recidivism. 33 min
[2018-08-28] MEDS: Pantoprazole 40 mg EC Tab PO SCH (11:48)
[2018-08-28] MEDS ORDERED: Dextrose 50% SYRINGE Inj (50 ml) IV PRN (12:32)
[2018-08-28] MEDS ORDERED: Glucagon Recombinant 1 mg Inj IM PRN (12:32)
--- NOTE | 2018-08-28 14:12 | RAD ---
Date of service: 08/27/2018 PROCEDURE: Radiographs of the chest and abdomen (obstructive series) HISTORY: abd pain/vomit COMPARISON: No prior. TECHNIQUE: AP radiograph of the chest, with upright and supine radiographs of the abdomen. 3 views obtained. FINDINGS: In situ dialysis catheter with tip in the SVC. CHEST: Lungs: Suspect minor bibasilar atelectasis. Cardiovascular: Normal size heart. No pulmonary vascular congestion. No aortic atherosclerotic calcification present Pleura: No pleural fluid. No pneumothorax. Other findings: None. ABDOMEN AND PELVIS: Bowel: Unremarkable bowel gas pattern. No evidence of mechanical obstruction. Free air: None. Bones: Unremarkable. Other findings: None. IMPRESSION: Suspect minor bibasilar atelectasis. No evidence of acute mechanical bowel obstruction. No gross free intraperitoneal air under the diaphragmatic surfaces identified on erect view
[2018-08-28 15:00] LABS: BASO % 0.3 % (0.0-2.0); HEMOGLOBIN 8.8 g/dL (11.0-16.0); LYMPH # 1.2 K/uL (1.0-4.3); LYMPH % 10.5 % (20.0-40.0); MEAN CELL VOLUME 80.8 fL (81.0-99.0); MEAN CORPUSCULAR HEMOGLOBIN 26.2 pg (27.0-31.0); MEAN CORPUSCULAR HGB CONC 32.4 g/dL (33.0-37.0); MEAN PLATELET VOLUME 9.2 fL (7.2-11.7); MONO # 0.5 K/uL (0.0-0.8); MONO % 4.6 % (0.0-10.0); NEUT # 9.8 K/uL (1.8-7.0); NEUT % 84.6 % (50.0-75.0); NRBC % 0.1 % (0.0-2.0); RBC 3.34 Mil/uL (3.80-5.20); RED CELL DISTRIBUTION WIDTH 18.6 % (11.5-14.5); WHITE BLOOD COUNT 11.6 K/uL (4.8-10.8)
[2018-08-28 15:35] LABS: ALB/GLOB RATIO 1.3 (1.0-2.1); ALBUMIN 3.5 g/dL (3.5-5.0); CALCIUM 9.1 mg/dl (8.6-10.4)
[2018-08-28] MEDS ORDERED: Enalaprilat 2.5 MG/2 ML IV ONE ×2 (16:07→17:51)
--- NOTE | 2018-08-28 17:51 | RAD ---
Date of service: 08/28/2018 HISTORY: r/o fluid overload COMPARISON: . Comparison chest dated 08/10/2018. TECHNIQUE: 1 view obtained. FINDINGS: In situ right IJ dialysis catheter with tip in the SVC/RA junction LUNGS: No evidence of brittani pulmonary edema. No acute consolidation. PLEURA: No significant pleural effusion identified, no pneumothorax apparent. CARDIOVASCULAR: No aortic atherosclerotic calcification present. Normal cardiac size. No pulmonary vascular congestion. OSSEOUS STRUCTURES: No significant abnormalities. VISUALIZED UPPER ABDOMEN: Normal. OTHER FINDINGS: None. IMPRESSION: No acute consolidation. No evidence of brittani pulmonary edema.
[2018-08-29] MEDS: Sodium Chloride 0.9% 1,000 ML IV SCH ×3 (00:25→18:06)
[2018-08-29] MEDS: (Novolin R) Insulin Human Regular 100 units/ml vial SC SCH ×4 (05:45→22:07)
--- NOTE | 2018-08-29 07:55 | CP.PCM.PN ---
Subjective - Date & Time of Evaluation Date of Evaluation: 08/29/18 Time of Evaluation: 07:55 - Subjective Subjective: Progress Note for Dr. King Patient seen and examined at bedside. She is sitting up in bed and in no acute distress. She has no complaints currently. Sitter present at bedside. She states she would like to have her left AV fistula revised and the gastric emptying study during this admission when she feels better. Objective - Vital Signs/Intake and Output Vital Signs (last 24 hours): Temp Pulse Resp BP Pulse Ox 98.7 F 87 20 126/75 95 08/28/18 23:00 08/28/18 23:00 08/28/18 23:00 08/28/18 23:00 08/28/18 23:00 Intake and Output: 08/29/18 08/29/18 06:59 18:59 Intake Total 480 Balance 480 - Medications Medications: Current Medications Amlodipine Besylate (Norvasc) 5 mg PO DAILY [facility] Last Admin: 08/28/18 11:48 Dose: Not Given Carvedilol (Coreg) 6.25 mg PO BID [facility] Last Admin: 08/28/18 17:42 Dose: 6.25 mg Clonazepam (Klonopin) 0.5 mg PO TID PRN PRN Reason: Anxiety Last Admin: 08/28/18 01:17 Dose: 0.5 mg Dextrose (Dextrose 50% Inj) 0 ml IV STAT PRN; Protocol PRN Reason: Hypoglycemia Protocol Dextrose (Glutose 15) 0 gm PO ONCE PRN; Protocol PRN Reason: Hypoglycemia Protocol Escitalopram Oxalate (Lexapro) 20 mg PO DAILY [facility] Last Admin: 08/28/18 11:48 Dose: Not Given Glucagon (Glucagen Diagnostic Kit) 0 mg IM STAT PRN; Protocol PRN Reason: Hypoglycemia Protocol Glucagon (Glucagen Diagnostic Kit) 0 mg IM STAT PRN; Protocol PRN Reason: Hypoglycemia Protocol Heparin Sodium (Porcine) (Heparin) 5,000 units SC Q8 [facility] Last Admin: 08/29/18 06:02 Dose: Not Given Heparin Sodium (Porcine) (Heparin (For Dialysis)) 3,700 units IVP TTS [facility] Stop: 09/07/18 15:45 Last Admin: 08/28/18 16:18 Dose: 3,700 units Hydralazine HCl (Apresoline) 50 mg PO TID [facility] Last Admin: 08/28/18 17:42 Dose: 50 mg Hydroxyzine HCl (Atarax) 25 mg PO QID PRN PRN Reason: Anxiety Dextrose (Dextrose 5% In Water 1000 Ml) 1,000 mls @ 0 mls/hr IV .Q0M PRN; Protocol PRN Reason: Hypoglycemia Protocol Sodium Chloride (Sodium Chloride 0.9%) 1,000 mls @ 60 mls/hr IV .[id number] [facility] Last Admin: 08/29/18 00:25 Dose: 60 mls/hr Insulin Human Regular (Novolin R) 0 unit SC Q6H [facility]; Protocol Last Admin: 08/29/18 05:45 Dose: 8 units Labetalol HCl (Trandate) 10 mg IVP Q4H PRN PRN Reason: Systolic Blood Pressure Lorazepam (Ativan) 1 mg IVP Q6H PRN PRN Reason: SEVERE ANXIETY Last Admin: 08/29/18 03:45 Dose: 1 mg Losartan Potassium (Cozaar) 25 mg PO DAILY [facility] Last Admin: 08/28/18 11:48 Dose: Not Given Metoclopramide HCl (Reglan) 10 mg IVP Q6H PRN PRN Reason: Nausea/Vomiting Last Admin: 08/28/18 08:23 Dose: 10 mg Ondansetron HCl (Zofran Inj) 4 mg IVP Q6H PRN PRN Reason: Nausea/Vomiting Last Admin: 08/28/18 11:07 Dose: 4 mg Pantoprazole Sodium (Protonix Ec Tab) 40 mg PO DAILY [facility] Last Admin: 08/28/18 11:48 Dose: Not Given Quetiapine Fumarate (Seroquel) 50 mg PO TID [facility] Last Admin: 08/28/18 18:50 Dose: Not Given Quetiapine Fumarate (Seroquel) 100 mg PO HS [facility] - Labs Labs: 08/28/18 14:47 08/28/18 14:47 - Constitutional Appears: Non-toxic, No Acute Distress, Older Than Stated Age - Head Exam Head Exam: ATRAUMATIC, NORMOCEPHALIC - Eye Exam Eye Exam: EOMI, PERRL - ENT Exam ENT Exam: Mucous Membranes Moist - Neck Exam Neck Exam: Full ROM - Respiratory Exam Respiratory Exam: Clear to Ausculation Bilateral, NORMAL BREATHING PATTERN. absent: Rales, Rhonchi, Wheezes Additional comments: permacath in right chest - Cardiovascular Exam Cardiovascular Exam: REGULAR RHYTHM, +S1, +S2. absent: Gallop, Rubs, Murmur - GI/Abdominal Exam GI & Abdominal Exam: Soft. absent: Guarding, Rigid, Tenderness, Normal Bowel Sounds - Extremities Exam Extremities Exam: absent: Calf Tenderness, Pedal Edema Additional comments: Fistula in left arm. - Neurological Exam Neurological Exam: Alert, Awake, Oriented x3. absent: Motor Sensory Deficit Additional comments: Moving all extremities - Psychiatric Exam Additional comments: Calm, sitting up - Skin Skin Exam: Dry, Intact, Warm Assessment and Plan - Assessment and Plan (Free Text) Assessment: Patient is a 28 year old female with past history of uncontrolled diabetes, diabetic gastroparesis, ESRD on HD (MWF), and presenting with intractable vomiting and abdominal pain. Patient has had frequent hospital admissions in the past for the same complaints, was recently discharged on 08/24. Patient's medication regimen resumed overnight as per her most recent discharge, for which she had been admitted with the same complaints of intractable abdominal pain and nausea, also known to have pseudoseizures. Plan: Intractable vomiting with abdominal pain-improved, chronic Diabetic gastroparesis vs. psychogenic causes Meds -Reglan 10mg IV Q6 PRN -Zofran 4mg Q6 PRN -Protonix 40mg daily -NS @ 60cc/hr IV Anxiety/Depression/pseudoseizure, chronic Psych consulted- appreciate recs Meds -Seroquel 50mg PO TID -Seroquel 100mg PO HS -Klonopin 0.5mg PO TID PRN -Atarax 25mg Q6 PRN -Lexapro 20mg po daily -Ativan 1mg Q6H PRN Type 2 DM, chronic elevated blood sugars 500+ on admission ISS high RISS ACHS accucheck ACHS Hypoglycemic treatment protocol ESRD on HD [facility] Nephrology following: Dr. Nieves- appreciate recs Fall, with bilateral knee pain Bilateral knee Xrays pending Uncontrolled HTN Meds -Amlodipine 5 mg PO daily -Losartan 25mg PO daily -Coreg 6.25mg PO BID -Hydralazine 50mg PO TID -will use IV labetolol 10mg q4hprn for bp> 180 Prophylaxis - Heparin 5000 units SC Q8 - Protonix 40 mg PO daily - home med - Advance diet to regular, hold if patient starts vomiting Case discussed with Dr. Christine Larkin, PGY1
[2018-08-29] MEDS: Pantoprazole 40 mg EC Tab PO SCH (09:17)
--- NOTE | 2018-08-29 10:51 | CT ---
Date of service: 08/29/2018 PROCEDURE: CT HEAD WITHOUT CONTRAST. HISTORY: Status post fall COMPARISON: Comparison made with prior CT scan 04/11/2018. TECHNIQUE: Axial computed tomography images were obtained through the head/brain without intravenous contrast. Radiation dose: Total exam DLP = 1119.39 mGy-cm. This CT exam was performed using one or more of the following dose reduction techniques: Automated exposure control, adjustment of the mA and/or kV according to patient size, and/or use of iterative reconstruction technique. FINDINGS: HEMORRHAGE: No intracranial hemorrhage. BRAIN: Questionable minimal chronic microvascular ischemic changes. There is mild volume loss which appears to be central evidenced by slight disproportionate enlargement of the ventricles as compared sulci. VENTRICLES: Unremarkable. No hydrocephalus. CALVARIUM: There are no acute calvarial fractures. PARANASAL SINUSES: Unremarkable as visualized. No significant inflammatory changes. MASTOID AIR CELLS: Unremarkable as visualized. No inflammatory changes. OTHER FINDINGS: None. IMPRESSION: Mild central volume loss.. Questionable minimal chronic periventricular white matter ischemic changes.
--- NOTE | 2018-08-30 01:34 | CP.PCM.CON ---
History of Present Illness - History of Present Illness History of Present Illness: 28 yo F w/ pmh of htn, IDDM w/ diabetic nephropathy progressing to ESRD earlier this year, on HD (MWF, at [facility] under our outpatient service), multiple admissions with erratic blood sugars, intractable vomiting, recently diagnosed MDD, anxiety disorder and factitious disorder along w/ pseudo-seizures, again presented after hypoglycemia at home, complaining of severe abd pain, nephrology being consulted for ESRD care; History taken partly from mother as patient is fixated on her abdominal pain; patient, who was just discharged a few days ago, was relatively well till yesterday morning when she became hypoglycemic; otherwise, she had been tolerating diet and was taking all her meds till then; she reports taking her usual 12 u of lantus the night before and had resumed use of insulin pump; she gives herself insulin injections; she denies giving herself higher dose of insulin and says that her vision is ok; mother reports "seizure" episode associated with the hypoglycemia but that when patient became alert, she starti ng slapping herself on the face; patient also subsequently has since been having multiple vomiting episodes; otherwise, patient is currently crying for pain meds; Review of Systems - Review of Systems Systems not reviewed;Unavailable: Other (patient hysterically crying for pain med) Past Patient History - Infectious Disease Hx of Infectious Diseases: None - Past Medical History & Family History Past Medical History?: Yes Pertinent Family History: Heart Disease - Past Social History Smoking Status: Never Smoked - CARDIAC Hx Hypertension: Yes Hx Pacemaker: No - PULMONARY Hx Bronchitis: Yes - NEUROLOGICAL Hx Seizures: Yes (Pseudo seizures?) - HEENT Hx HEENT Problems: Yes Hx Cataracts: Yes - RENAL Hx Chronic Kidney Disease: Yes - ENDOCRINE/METABOLIC Hx Endocrine Disorders: Yes Hx Diabetes Mellitus Type 2: Yes (on insulin pump) - HEMATOLOGICAL/ONCOLOGICAL Hx Anemia: Yes Hx Human Immunodeficiency Virus (HIV): No - INTEGUMENTARY Hx Dermatological Problems: No - MUSCULOSKELETAL/RHEUMATOLOGICAL Hx Musculoskeletal Disorders: Yes Hx Falls: Yes - GASTROINTESTINAL Hx Gastrointestinal Disorders: Yes (SEE COMMENT) Other/Comment: gastroparesis - GENITOURINARY/GYNECOLOGICAL Hx Genitourinary Disorders: No - PSYCHIATRIC Hx Anxiety: Yes Hx Depression: Yes Hx Substance Use: No - SURGICAL HISTORY Hx Appendectomy: Yes - ANESTHESIA Hx Anesthesia: Yes Hx Anesthesia Reactions: No Hx Malignant Hyperthermia: No Meds Allergies/Adverse Reactions: Allergies Allergy/AdvReac Type Severity Reaction Status Date / Time No Known Allergies Allergy Verified 08/27/18 16:41 - Medications Medications: Current Medications Amlodipine Besylate (Norvasc) 5 mg PO DAILY [facility] Last Admin: 08/29/18 09:16 Dose: 5 mg Carvedilol (Coreg) 6.25 mg PO BID [facility] Last Admin: 08/29/18 18:07 Dose: 6.25 mg Clonazepam (Klonopin) 0.5 mg PO TID PRN PRN Reason: Anxiety Last Admin: 08/29/18 09:16 Dose: 0.5 mg Dextrose (Dextrose 50% Inj) 0 ml IV STAT PRN; Protocol PRN Reason: Hypoglycemia Protocol Dextrose (Glutose 15) 0 gm PO ONCE PRN; Protocol PRN Reason: Hypoglycemia Protocol Epoetin Mk (Procrit) 10,000 unit IV MWF [facility] Escitalopram Oxalate (Lexapro) 20 mg PO DAILY [facility] Last Admin: 08/29/18 09:18 Dose: Not Given Glucagon (Glucagen Diagnostic Kit) 0 mg IM STAT PRN; Protocol PRN Reason: Hypoglycemia Protocol Glucagon (Glucagen Diagnostic Kit) 0 mg IM STAT PRN; Protocol PRN Reason: Hypoglycemia Protocol Heparin Sodium (Porcine) (Heparin) 5,000 units SC Q8 [facility] Last Admin: 08/29/18 21:30 Dose: Not Given Heparin Sodium (Porcine) (Heparin (For Dialysis)) 3,700 units IVP TTS [facility] Stop: 09/07/18 15:45 Last Admin: 08/28/18 16:18 Dose: 3,700 units Hydralazine HCl (Apresoline) 50 mg PO TID [facility] Last Admin: 08/29/18 18:07 Dose: 50 mg Hydroxyzine HCl (Atarax) 25 mg PO QID PRN PRN Reason: Anxiety Dextrose (Dextrose 5% In Water 1000 Ml) 1,000 mls @ 0 mls/hr IV .Q0M PRN; P rotocol PRN Reason: Hypoglycemia Protocol Insulin Human Regular (Novolin R) 0 unit SC Q6H [facility]; Protocol Last Admin: 08/29/18 22:07 Dose: 4 units Labetalol HCl (Trandate) 10 mg IVP Q4H PRN PRN Reason: Systolic Blood Pressure Lorazepam (Ativan) 1 mg IVP Q6H PRN PRN Reason: SEVERE ANXIETY Last Admin: 08/29/18 21:23 Dose: 1 mg Losartan Potassium (Cozaar) 25 mg PO DAILY [facility] Last Admin: 08/29/18 09:17 Dose: 25 mg Metoclopramide HCl (Reglan) 10 mg IVP Q6H PRN PRN Reason: Nausea/Vomiting Last Admin: 08/28/18 08:23 Dose: 10 mg Ondansetron HCl (Zofran Inj) 4 mg IVP Q6H PRN PRN Reason: Nausea/Vomiting Last Admin: 08/28/18 11:07 Dose: 4 mg Pantoprazole Sodium (Protonix Ec Tab) 40 mg PO DAILY [facility] Last Admin: 08/29/18 09:17 Dose: 40 mg Paricalcitol (Zemplar) 2 mcg IV MWF [facility] Quetiapine Fumarate (Seroquel) 50 mg PO TID [facility] Last Admin: 08/29/18 18:06 Dose: 50 mg Quetiapine Fumarate (Seroquel) 100 mg PO HS [facility] Last Admin: 08/29/18 21:28 Dose: 100 mg Physical Exam - Constitutional Appears: Agitated - Eye Exam Eye Exam: Normal appearance - ENT Exam ENT Exam: Mucous Membranes Moist - Respiratory Exam Respiratory Exam: Clear to Auscultation Bilateral. absent: Respiratory Distress - Cardiovascular Exam Cardiovascular Exam: RRR, +S1, +S2 - GI/Abdominal Exam GI & Abdominal Exam: Soft. absent: Distended - Extremities Exam Additional comments: no leg edema; L arm AVF w/ bruit present; - Neurological Exam Neurological exam: Alert Additional comments: no resting tremor; - Psychiatric Exam Additional comments: crying for pain meds; - Skin Skin Exam: Normal Color, Warm Results - Vital Signs Recent Vital Signs: Last Vital Signs Temp 98.8 F 08/29/18 23:23 Pulse 80 08/29/18 23:23 Resp 20 08/29/18 23:23 BP 129/80 08/29/18 23:23 Pulse Ox 98 08/29/18 23:23 - Labs Result Diagrams: 08/28/18 14:47 08/28/18 14:47 Labs: Laboratory Results - last 24 hr 08/29/18 08/29/18 08/29/18 04:47 06:19 11:45 POC Glucose (mg/dL) 316 H 302 H 265 H 08/29/18 08/29/18 16:31 21:30 POC Glucose (mg/dL) 102 > 500 H* - Imaging and Cardiology Chest x-ray Status: Image reviewed by me (lungs clear) Assessment & Plan (1) ESRD on hemodialysis Assessment and Plan: Stable lytes; labs indicative of volume contraction/hemoconcentration; missed HD yesterday (Thursday); dialyzing today with goal to keep net positive 500 cc; next HD treatment for Thursday to put back on schedule; Status: Chronic (2) Hypertensive CKD, ESRD on dialysis Assessment and Plan: BP markedly elevated as is generally the case when she presents with vomiting; giving dose of enalapril 2.5 mg this evening; continue with clonidine patch 0.2 mg; agree with current PO meds (if able to hold them down); IV labetalol 10 mg prn; Status: Acute (3) Anemia in CKD (chronic kidney disease) Assessment and Plan: Hgb dropping, will monitor; will resume EPO on HD; Status: Chronic (4) Chronic kidney disease-mineral and bone disorder Assessment and Plan: Actually with pronounced hypophophatemia, replenished via IV route overnight; will check PTH level; no need for phso binder for now; Status: Chronic (5) Vomiting Assessment and Plan: Again with concern that some of these symptoms are self-induced; nevertheless, patient appears volume contracted; will keep on IVF w/ NS at 60 cc/hr; Status: Acute
[2018-08-30] MEDS: (Novolin R) Insulin Human Regular 100 units/ml vial SC SCH ×6 (05:14→22:02)
[2018-08-30] MEDS ORDERED: Epoetin Alfa Dialysis 40000 UNIT/ml Inj IV SCH (09:00)
[2018-08-30] MEDS ORDERED: Paricalcitol 2 mcg/ml Inj IV SCH (09:00)
--- NOTE | 2018-08-30 09:39 | CP.PCM.PN ---
Subjective - Date & Time of Evaluation Date of Evaluation: 08/30/18 Time of Evaluation: 09:37 - Subjective Subjective: Progress Note for Dr. King Patient seen and examined at bedside. She is sitting up in bed and in no acute distress. She has no complaints currently. Tolerating diet. Sitter present at bedside. Denies nausea, vomiting, fever, chills, headache, dizziness and lightheadedness. Objective - Vital Signs/Intake and Output Vital Signs (last 24 hours): Temp Pulse Resp BP Pulse Ox 98.1 F 74 18 144/88 97 08/30/18 07:30 08/30/18 07:30 08/30/18 07:30 08/30/18 07:30 08/30/18 07:30 Intake and Output: 08/30/18 08/30/18 06:59 18:59 Intake Total 780 Output Total 0 Balance 780 - Medications Medications: Current Medications Amlodipine Besylate (Norvasc) 5 mg PO DAILY [facility] Last Admin: 08/29/18 09:16 Dose: 5 mg Carvedilol (Coreg) 6.25 mg PO BID [facility] Last Admin: 08/29/18 18:07 Dose: 6.25 mg Clonazepam (Klonopin) 0.5 mg PO TID PRN PRN Reason: Anxiety Last Admin: 08/29/18 09:16 Dose: 0.5 mg Dextrose (Dextrose 50% Inj) 0 ml IV STAT PRN; Protocol PRN Reason: Hypoglycemia Protocol Dextrose (Glutose 15) 0 gm PO ONCE PRN; Protocol PRN Reason: Hypoglycemia Protocol Epoetin Mk (Procrit) 10,000 unit IV MWF [facility] Escitalopram Oxalate (Lexapro) 20 mg PO DAILY [facility] Last Admin: 08/29/18 09:18 Dose: Not Given Glucagon (Glucagen Diagnostic Kit) 0 mg IM STAT PRN; Protocol PRN Reason: Hypoglycemia Protocol Glucagon (Glucagen Diagnostic Kit) 0 mg IM STAT PRN; Protocol PRN Reason: Hypoglycemia Protocol Heparin Sodium (Porcine) (Heparin) 5,000 units SC Q8 [facility] Last Admin: 08/30/18 05:15 Dose: 5,000 units Heparin Sodium (Porcine) (Heparin (For Dialysis)) 3,700 units IVP TTS [facility] Stop: 09/07/18 15:45 Last Admin: 08/28/18 16:18 Dose: 3,700 units Hydralazine HCl (Apresoline) 50 mg PO TID [facility] Last Admin: 08/29/18 18:07 Dose: 50 mg Hydroxyzine HCl (Atarax) 25 mg PO QID PRN PRN Reason: Anxiety Dextrose (Dextrose 5% In Water 1000 Ml) 1,000 mls @ 0 mls/hr IV .Q0M PRN; Protocol PRN Reason: Hypoglycemia Protocol Insulin Human Regular (Novolin R) 0 unit SC Q6H [facility]; Protocol Last Admin: 08/30/18 05:14 Dose: 4 units Labetalol HCl (Trandate) 10 mg IVP Q4H PRN PRN Reason: Systolic Blood Pressure Lorazepam (Ativan) 1 mg IVP Q6H PRN PRN Reason: SEVERE ANXIETY Last Admin: 08/29/18 21:23 Dose: 1 mg Losartan Potassium (Cozaar) 25 mg PO DAILY [facility] Last Admin: 08/29/18 09:17 Dose: 25 mg Metoclopramide HCl (Reglan) 10 mg IVP Q6H PRN PRN Reason: Nausea/Vomiting Last Admin: 08/28/18 08:23 Dose: 10 mg Ondansetron HCl (Zofran Inj) 4 mg IVP Q6H PRN PRN Reason: Nausea/Vomiting Last Admin: 08/28/18 11:07 Dose: 4 mg Pantoprazole Sodium (Protonix Ec Tab) 40 mg PO DAILY [facility] Last Admin: 08/29/18 09:17 Dose: 40 mg Paricalcitol (Zemplar) 2 mcg IV [facility] Quetiapine Fumarate (Seroquel) 50 mg PO TID [facility] Last Admin: 08/29/18 18:06 Dose: 50 mg Quetiapine Fumarate (Seroquel) 100 mg PO [facility] Last Admin: 08/29/18 21:28 Dose: 100 mg - Labs Labs: 08/28/18 14:47 08/28/18 14:47 - Additional Findings Additional findings: - Constitutional Appears: Non-toxic, No Acute Distress - Head Exam Head Exam: ATRAUMATIC, NORMOCEPHALIC - Eye Exam Eye Exam: EOMI, PERRL - ENT Exam ENT Exam: Mucous Membranes Moist - Neck Exam Neck Exam: Full ROM - Respiratory Exam Respiratory Exam: Clear to Ausculation Bilateral, NORMAL BREATHING PATTERN. absent: Rales, Rhonchi, Wheezes Additional comments: permacath in right chest - Cardiovascular Exam Cardiovascular Exam: REGULAR RHYTHM, +S1, +S2. absent: Gallop, Rubs, Murmur - GI/Abdominal Exam GI & Abdominal Exam: Soft. absent: Guarding, Rigid, Tenderness, Normal Bowel Sounds - Extremities Exam Extremities Exam: absent: Calf Tenderness, Pedal Edema Additional comments: Fistula in left arm. - Neurological Exam Neurological Exam: Alert, Awake, Oriented x3. absent: Motor Sensory Deficit Additional comments: Moving all extremities - Psychiatric Exam Additional comments: Calm - Skin Skin Exam: Dry, Intact, Warm Assessment and Plan - Assessment and Plan (Free Text) Plan: Patient is a 28 year old female with past history of uncontrolled diabetes, diabetic gastroparesis, ESRD on HD ([facility]), and presenting with intractable vomiting and abdominal pain. Patient has had frequent hospital admissions in the past for the same complaints, was recently discharged on 08/24. Patient's medication regimen resumed overnight as per her most recent discharge, for which she had been admitted with the same complaints of intractable abdominal pain and nausea, also known to have pseudoseizures. Intractable vomiting with abdominal pain-improved, chronic Diabetic gastroparesis vs. psychogenic causes -Gastric emptying study ordered, however spoke to radiologist and due to history and previous GI evaluation, patient will likely not tolerate 4 hour exam Meds -Reglan 10mg IV Q6 PRN -Zofran 4mg Q6 PRN -Protonix 40mg daily -NS @ 60cc/hr IV Anxiety/Depression/pseudoseizure, chronic Psych consulted- appreciate recs Meds -Seroquel 50mg PO TID -Seroquel 100mg PO HS -Klonopin 0.5mg PO TID PRN -Atarax 25mg Q6 PRN -Lexapro 20mg po daily -Ativan 1mg Q6H PRN Type 2 DM, chronic elevated blood sugars 500+ on admission ISS high RISS ACHS accucheck ACHS Hypoglycemic treatment protocol ESRD on HD [facility] Nephrology following: Dr. Nieves- appreciate recs AV fistula dysfunction -Dr. Hines, vascular surgery, consulted Fall, with bilateral knee pain Bilateral knee Xrays pending CT head- Mild central volume loss. Questionable minimal chronic periventricular white matter ischemic changes. Uncontrolled HTN Meds -Amlodipine 5 mg PO daily -Losartan 25mg PO daily -Coreg 6.25mg PO BID -Hydralazine 50mg PO TID -will use IV labetolol 10mg q4hprn for bp> 180 Prophylaxis - Heparin 5000 units SC Q8 - Protonix 40 mg PO daily - home med - Advance diet to regular, hold if patient starts vomiting - NPO after midnight for AV fistula revision 08/31/18 Dispo: AV fistula revision tomorrow with Dr. Hines. Case discussed with Dr. Christine Stewart, PGY-1
[2018-08-30] MEDS: Pantoprazole 40 mg EC Tab PO SCH (10:56)
--- NOTE | 2018-08-30 11:44 | CP.PCM.PN ---
Subjective - Date & Time of Evaluation Date of Evaluation: 08/30/18 Time of Evaluation: 11:42 - Subjective Subjective: PGY-3 for Vicenta Bustamante Pt is sleeping. No acute complaint. 1:[address] No acute event overnight. Pt had been drinking juice. Decreased appetite. Objective - Vital Signs/Intake and Output Vital Signs (last 24 hours): Temp Pulse Resp BP Pulse Ox 98.1 F 74 18 144/88 97 08/30/18 07:30 08/30/18 07:30 08/30/18 07:30 08/30/18 07:30 08/30/18 07:30 Intake and Output: 08/30/18 08/30/18 06:59 18:59 Intake Total 780 Output Total 0 Balance 780 - Medications Medications: Current Medications Amlodipine Besylate (Norvasc) 5 mg PO DAILY [facility] Last Admin: 08/30/18 10:56 Dose: 5 mg Carvedilol (Coreg) 6.25 mg PO BID [facility] Last Admin: 08/30/18 10:56 Dose: 6.25 mg Clonazepam (Klonopin) 0.5 mg PO TID PRN PRN Reason: Anxiety Last Admin: 08/29/18 09:16 Dose: 0.5 mg Dextrose (Dextrose 50% Inj) 0 ml IV STAT PRN; Protocol PRN Reason: Hypoglycemia Protocol Dextrose (Glutose 15) 0 gm PO ONCE PRN; Protocol PRN Reason: Hypoglycemia Protocol Epoetin Mk (Procrit) 10,000 unit IV MWF [facility] Escitalopram Oxalate (Lexapro) 20 mg PO DAILY [facility] Last Admin: 08/30/18 10:55 Dose: 20 mg Glucagon (Glucagen Diagnostic Kit) 0 mg IM STAT PRN; Protocol PRN Reason: Hypoglycemia Protocol Glucagon (Glucagen Diagnostic Kit) 0 mg IM STAT PRN; Protocol PRN Reason: Hypoglycemia Protocol Heparin Sodium (Porcine) (Heparin) 5,000 units SC Q8 [facility] Last Admin: 08/30/18 05:15 Dose: 5,000 units Heparin Sodium (Porcine) (Heparin (For Dialysis)) 3,700 units IVP TTS [facility] Stop: 09/07/18 15:45 Last Admin: 08/28/18 16:18 Dose: 3,700 units Hydralazine HCl (Apresoline) 50 mg PO TID [facility] Last Admin: 08/30/18 10:56 Dose: 50 mg Hydroxyzine HCl (Atarax) 25 mg PO QID PRN PRN Reason: Anxiety Dextrose (Dextrose 5% In Water 1000 Ml) 1,000 mls @ 0 mls/hr IV .Q0M PRN; Pro tocol PRN Reason: Hypoglycemia Protocol Insulin Detemir (Levemir) 11 unit SC HS [facility] Insulin Human Regular (Novolin R) 4 unit SC TIDAC [facility] Insulin Human Regular (Novolin R) 0 unit SC ACHS [facility]; Protocol Labetalol HCl (Trandate) 10 mg IVP Q4H PRN PRN Reason: Systolic Blood Pressure Lorazepam (Ativan) 1 mg IVP Q6H PRN PRN Reason: SEVERE ANXIETY Last Admin: 08/30/18 11:19 Dose: 1 mg Losartan Potassium (Cozaar) 25 mg PO DAILY [facility] Last Admin: 08/30/18 10:56 Dose: 25 mg Metoclopramide HCl (Reglan) 10 mg IVP Q6H PRN PRN Reason: Nausea/Vomiting Last Admin: 08/28/18 08:23 Dose: 10 mg Ondansetron HCl (Zofran Inj) 4 mg IVP Q6H PRN PRN Reason: Nausea/Vomiting Last Admin: 08/28/18 11:07 Dose: 4 mg Pantoprazole Sodium (Protonix Ec Tab) 40 mg PO DAILY [facility] Last Admin: 08/30/18 10:56 Dose: 40 mg Paricalcitol (Zemplar) 2 mcg IV [facility] Quetiapine Fumarate (Seroquel) 50 mg PO TID [facility] Last Admin: 08/30/18 10:56 Dose: 50 mg Quetiapine Fumarate (Seroquel) 100 mg PO [facility] Last Admin: 08/29/18 21:28 Dose: 100 mg - Labs Labs: 08/28/18 14:47 08/28/18 14:47 - Constitutional Appears: No Acute Distress - Head Exam Head Exam: ATRAUMATIC, NORMAL INSPECTION, NORMOCEPHALIC - Eye Exam Eye Exam: EOMI, Normal appearance, PERRL. absent: Scleral icterus Pupil Exam: NORMAL ACCOMODATION - ENT Exam ENT Exam: Mucous Membranes Moist - Respiratory Exam Respiratory Exam: Clear to Ausculation Bilateral - Cardiovascular Exam Cardiovascular Exam: REGULAR RHYTHM, +S1, +S2 - GI/Abdominal Exam GI & Abdominal Exam: Soft, Tenderness - Extremities Exam Extremities Exam: absent: Calf Tenderness - Back Exam Back Exam: absent: CVA tenderness (L), CVA tenderness (R) - Neurological Exam Neurological Exam: Alert, Awake, Oriented x3 - Psychiatric Exam Psychiatric exam: Normal Affect, Normal Mood - Skin Skin Exam: Dry, Warm Assessment and Plan - Assessment and Plan (Free Text) Plan: Ms Kenneth Larry, 28 F w/ PMHx htn, IDDM on insulin pump (A1C 6.1) w/ diabetic nephropathy progressing to ESRD earlier this year, on HD (MWF, at [facility] under Dr Nieves outpatient service), multiple admissions with brittle diabetes, intractable vomiting, recently diagnosed MDD, anxiety disorder and factitious disorder along w/ pseudo-seizures, again presented after hypoglycemia at home, complaining of severe abd pain, nephrology being consulted for ESRD care. (1) ESRD on hemodialysis, MWF, via permacath New AV fistula Continue to monitor volume status. Labs indicative of volume contraction/hemoconcentration Stable electrolytes Hd on Thu s/p missed HD on Thursday. Will have Dialysis today late afternoon. [facility] surgery to revise fistula (OR) tomorrow (2) Hypertensive CKD, ESRD on dialysis BP markedly elevated likely triggered by vomiting, rescued by enalapril 2.5 mg x 1 Continue to trend BP Add clonidine patch at 0.1 qwk Losartan 25 daily, carveldilol 6.25 bid, amlodipine 5, hydralazine 50 tid, IV labelol prn Tolerated PO meds per RN IV labetalol 10 mg prn (3) Anemia in CKD (chronic kidney disease) Hgb dropping, continue monitor; will receive EPO on HD (4) Chronic kidney disease-mineral and bone disorder Pronounced hypophophatemia s/p IV replenishment x 1 PTH level____pending___ Discontinue phos binder (5) Vomiting Questionable self-induced in the setting of diabetic gastroparesis Gastric emptying study Pending Continue to monitor Volume status 1:[address] for behavioral reason (6) Brittle diabetes Managed per primary team s/r/d/w Dr Nieves
--- NOTE | 2018-08-30 12:17 | PCM.PYCHPN ---
Psychiatric Progress Note - Psychiatric Progress Note Patient seen today, length of contact: 19 min Patient Chief Complaint: "I feel better today" Problems Identified/Issues Discussed: The pt is seen, chart reviewed, case is discussed with staff. The pt is compliant with medications and reports no side-effects. Symptoms are improving but needs more time to stabilize and to avoid relapse. Support given, psycho-education provided. She shows more signs of borderline personality again: Dr. Schroeder is good Dr. Solorzano is bad. "They don't believe me" She says she will only use "some ativan" only in the hospital. Not suicidal or homicidal. Medication Change: Yes Medical Record Reviewed: Yes Mental Status Examination - Cognitive Function Orientation: Person, Place, Situation, Time Memory: Impaired Attention: Poor Concentration: Poor Association: WNL Fund of Knowledge: WNL - Mood Mood: Depressed, Anxious - Affect Affect: Constricted - Speech Speech: Appropriate - Formal Thought Process Formal Thought Process: No Impairment - Suicidal Ideation Suicidal Ideation: No - Homicidal Ideation Homicidal Ideation: No Goal/Treatment Plan - Goal/Treatment Plan Need for Continued Stay: Discharge may exacerbated symptoms, Severe functional impairment, Other (medical) Progress Toward Problem(s) and Goals/Treatment Plan: Resume meds: Lexapro for depression and anxiety Seroquel for mood swings, irritability PRN Atarax and inderal for anxiety Klonopin for anxiety. She is overusing ativan otherwise. Ativan can be d/c'ed She is fixated on ativan Limit setting, support, psychoeducation SW should contact again to [facility] CM program to help pt avoid revolver door recidivism.
--- NOTE | 2018-08-30 13:29 | CARD ---
APPROVED REPORT Date of service: 08/27/2018 EKG Measurement Heart [id number] <Conclusion> Sinus tachycardia Possible Left atrial enlargement Borderline ECG
--- NOTE | 2018-08-30 15:31 | CP.PCM.CON ---
History of Present Illness - History of Present Illness History of Present Illness: Vascular Surgery Consult for Dr. Hines Reason for consult: malfunctioning RUE AVF 28 F with PMH that includes htn, IDDM, diabetic nephropathy, ESRD on HD (MWF) who has multiple admissions for labile blood sugar, intractable vomiting, recently diagnosed MDD, anxiety disorder and factitious disorder with pseudo- seizures now admitted again for hypoglycemia. Yesterday morning, she became hypoglycemic. Prior to this episode she had been tolerating diet and was compliant with her meds. Mother reports "seizure" associated with hypoglycemic event. Patient became alert and starting slapping herself on the face. She also reports multiple vomiting episodes. Vascular surgery had been re-consulted for revision of AVF. Plan for OR tomorrow 08/31 for AVF revision. PMH: DM type 1, diabetic gastroparesis, ESRD, pseudoseizures, anxiety, depression PSH: appendectomy, AVF All: NKDA FH: Maternal grandmother with unknown heart disease Social: former smoker quit 6 years ago, denies tobacco and alcohol use Review of Systems - Review of Systems All systems: reviewed and no additional remarkable complaints except (as per HPI) Past Patient History - Infectious Disease Hx of Infectious Diseases: None - Past Medical History & Family History Past Medical History?: Yes - Past Social History Smoking Status: Never Smoked - CARDIAC Hx Hypertension: Yes Hx Pacemaker: No - PULMONARY Hx Bronchitis: Yes - NEUROLOGICAL Hx Seizures: Yes (Pseudo seizures?) - HEENT Hx HEENT Problems: Yes Hx Cataracts: Yes - RENAL Hx Chronic Kidney Disease: Yes - ENDOCRINE/METABOLIC Hx Endocrine Disorders: Yes Hx Diabetes Mellitus Type 2: Yes (on insulin pump) - HEMATOLOGICAL/ONCOLOGICAL Hx Anemia: Yes Hx Human Immunodeficiency Virus (HIV): No - INTEGUMENTARY Hx Dermatological Problems: No - MUSCULOSKELETAL/RHEUMATOLOGICAL Hx Musculoskeletal Disorders: Yes Hx Falls: Yes - GASTROINTESTINAL Hx Gastrointestinal Disorders: Yes (SEE COMMENT) Other/Comment: gastroparesis - GENITOURINARY/GYNECOLOGICAL Hx Genitourinary Disorders: No - PSYCHIATRIC Hx Anxiety: Yes Hx Depression: Yes Hx Substance Use: No - SURGICAL HISTORY Hx Appendectomy: Yes - ANESTHESIA Hx Anesthesia: Yes Hx Anesthesia Reactions: No Hx Malignant Hyperthermia: No Meds Allergies/Adverse Reactions: Allergies Allergy/AdvReac Type Severity Reaction Status Date / Time No Known Allergies Allergy Verified 08/27/18 16:41 - Medications Medications: Current Medications Amlodipine Besylate (Norvasc) 5 mg PO DAILY [facility] Last Admin: 08/30/18 10:56 Dose: 5 mg Carvedilol (Coreg) 6.25 mg PO BID [facility] Last Admin: 08/30/18 10:56 Dose: 6.25 mg Clonazepam (Klonopin) 0.5 mg PO BID [facility] Clonidine HCl (Catapres Tts1 0.1 Mg/24 Hr) 1 patch TD Q7D@1000 [facility] Dextrose (Dextrose 50% Inj) 0 ml IV STAT PRN; Protocol PRN Reason: Hypoglycemia Protocol Dextrose (Glutose 15) 0 gm PO ONCE PRN; Protocol PRN Reason: Hypoglycemia Protocol Epoetin Mk (Procrit) 10,000 unit IV MWF [facility] Escitalopram Oxalate (Lexapro) 20 mg PO DAILY [facility] Last Admin: 08/30/18 10:55 Dose: 20 mg Glucagon (Glucagen Diagnostic Kit) 0 mg IM STAT PRN; Protocol PRN Reason: Hypoglycemia Protocol Glucagon (Glucagen Diagnostic Kit) 0 mg IM STAT PRN; Protocol PRN Reason: Hypoglycemia Protocol Heparin Sodium (Porcine) (Heparin) 5,000 units SC Q8 [facility] Last Admin: 08/30/18 15:15 Dose: Not Given Heparin Sodium (Porcine) (Heparin (For Dialysis)) 3,700 units IVP TTS [facility] Stop: 09/07/18 15:45 Last Admin: 08/28/18 16:18 Dose: 3,700 units Hydralazine HCl (Apresoline) 50 mg PO TID [facility] Last Admin: 08/30/18 15:04 Dose: 50 mg Hydroxyzine HCl (Atarax) 25 mg PO QID PRN PRN Reason: Anxiety Dextrose (Dextrose 5% In Water 1000 Ml) 1,000 mls @ 0 mls/hr IV .Q0M PRN; Protocol PRN Reason: Hypoglycemia Protocol Insulin Detemir (Levemir) 11 unit SC HS [facility] Insulin Human Regular (Novolin R) 4 unit SC TIDAC [facility] Last Admin: 08/30/18 13:00 Dose: 4 units Insulin Human Regular (Novolin R) 0 unit SC ACHS [facility]; Protocol Last Admin: 08/30/18 15:09 Dose: 10 units Labetalol HCl (Trandate) 10 mg IVP Q4H PRN PRN Reason: Systolic Blood Pressure Lorazepam (Ativan) 1 mg IVP Q6H PRN PRN Reason: SEVERE ANXIETY Last Admin: 08/30/18 11:19 Dose: 1 mg Losartan Potassium (Cozaar) 25 mg PO DAILY [facility] Last Admin: 08/30/18 10:56 Dose: 25 mg Metoclopramide HCl (Reglan) 10 mg IVP Q6H PRN PRN Reason: Nausea/Vomiting Last Admin: 08/28/18 08:23 Dose: 10 mg Ondansetron HCl (Zofran Inj) 4 mg IVP Q6H PRN PRN Reason: Nausea/Vomiting Last Admin: 08/28/18 11:07 Dose: 4 mg Pantoprazole Sodium (Protonix Ec Tab) 40 mg PO DAILY [facility] Last Admin: 08/30/18 10:56 Dose: 40 mg Paricalcitol (Zemplar) 2 mcg IV [facility] Quetiapine Fumarate (Seroquel) 50 mg PO TID [facility] Last Admin: 08/30/18 15:08 Dose: 50 mg Quetiapine Fumarate (Seroquel) 100 mg PO HS [facility] Last Admin: 08/29/18 21:28 Dose: 100 mg Physical Exam - Constitutional Appears: Non-toxic, No Acute Distress - Head Exam Head Exam: ATRAUMATIC, NORMOCEPHALIC - Eye Exam Eye Exam: EOMI, Normal appearance Pupil Exam: PERRL - ENT Exam ENT Exam: Mucous Membranes Moist - Respiratory Exam Respiratory Exam: NORMAL BREATHING PATTERN - Cardiovascular Exam Cardiovascular Exam: REGULAR RHYTHM - GI/Abdominal Exam GI & Abdominal Exam: Normal Bowel Sounds, Soft. absent: Distended, Firm, Guarding, Rebound, Rigid, Tenderness - Extremities Exam Extremities exam: Positive for: normal capillary refill, pedal pulses present. Negative for: calf tenderness Additional comments: RUE AVF - Back Exam Back exam: absent: CVA tenderness (L), CVA tenderness (R) - Neurological Exam Neurological exam: Alert, CN II-XII Intact, Oriented x3 - Psychiatric Exam Psychiatric exam: Flat Affect - Skin Skin Exam: Dry, Intact, Warm Results - Vital Signs Recent Vital Signs: Last Vital Signs Temp 98.1 F 08/30/18 07:30 Pulse 74 08/30/18 07:30 Resp 18 08/30/18 07:30 BP 144/88 08/30/18 07:30 Pulse Ox 97 08/30/18 07:30 - Labs Result Diagrams: 08/28/18 14:47 08/28/18 14:47 Labs: Laboratory Results - last 24 hr 08/29/18 08/29/18 08/29/18 06:19 11:45 16:31 POC Glucose (mg/dL) 302 H 265 H 102 08/29/18 08/30/18 08/30/18 21:30 04:52 10:39 POC Glucose (mg/dL) > 500 H* 451 H* 405 H* 08/30/18 12:00 POC Glucose (mg/dL) 386 H Assessment & Plan - Assessment and Plan (Free Text) Assessment: 28F with ESRD on HD and malfunctioning RUE AVF Plan: -NPO past MN -f/u AM labs with coags and type & screen -Plan for AVF revision Thursday 08/31 in OR -Management as per primary team -Discussed with Dr. Flora Ford PGY2 - Date & Time Date: 08/30/18 Time: 15:44
[2018-08-30 18:29] LABS: BASO % 0.7 % (0.0-2.0); EOS # 0.2 K/uL (0.0-0.7); EOS % 3.1 % (0.0-4.0); HEMOGLOBIN 8.8 g/dL (11.0-16.0); LYMPH # 2.2 K/uL (1.0-4.3); LYMPH % 36.4 % (20.0-40.0); MEAN CELL VOLUME 81.7 fL (81.0-99.0); MEAN CORPUSCULAR HEMOGLOBIN 25.8 pg (27.0-31.0); MEAN CORPUSCULAR HGB CONC 31.6 g/dL (33.0-37.0); MEAN PLATELET VOLUME 8.7 fL (7.2-11.7); MONO # 0.5 K/uL (0.0-0.8); MONO % 8.8 % (0.0-10.0); NRBC % 0.1 % (0.0-2.0); RBC 3.39 Mil/uL (3.80-5.20); RED CELL DISTRIBUTION WIDTH 18.8 % (11.5-14.5); WHITE BLOOD COUNT 5.9 K/uL (4.8-10.8)
[2018-08-30 18:40] LABS: INR 0.9; PARTIAL THROMBOPLASTIN TIME 37.7 SECONDS (21-34)
[2018-08-30 18:46] LABS: PROTHROMBIN TIME 9.5 SECONDS (9.7-12.2)
[2018-08-30] MEDS ORDERED: Epoetin Alfa 10,000 unit/ml Dialysis IV SCH (19:00)
[2018-08-30 19:05] LABS: ALB/GLOB RATIO 1.2 (1.0-2.1); ALT/SGPT 22 U/L (9-52); AST/SGOT 13 U/L (14-36); BLOOD UREA NITROGEN 34 mg/dL (7-17); GFR NON-AFRICAN AMERICAN 9
[2018-08-30] MEDS: Insulin Detemir 100 units/ml Vial (Levemir) SC SCH (22:26)
--- NOTE | 2018-08-31 07:01 | CP.PCM.PN ---
Subjective - Date & Time of Evaluation Date of Evaluation: 08/31/18 Time of Evaluation: 07:00 - Subjective Subjective: Progress note for Dr. King. Patient seen and evaluated at bedside. Reports slight nausea last night, but resolved. No vomiting. Scheduled for AVF this afternoon with Dr. Hines. Objective - Vital Signs/Intake and Output Vital Signs (last 24 hours): Temp Pulse Resp BP Pulse Ox 98.0 F 83 20 127/86 97 08/30/18 23:12 08/30/18 23:12 08/30/18 23:12 08/30/18 23:12 08/30/18 23:12 - Medications Medications: Current Medications Amlodipine Besylate (Norvasc) 5 mg PO DAILY [facility] Last Admin: 08/30/18 10:56 Dose: 5 mg Carvedilol (Coreg) 6.25 mg PO BID [facility] Last Admin: 08/30/18 18:00 Dose: Not Given Clonazepam (Klonopin) 0.5 mg PO BID [facility] Last Admin: 08/30/18 17:14 Dose: 0.5 mg Clonidine HCl (Catapres Tts1 0.1 Mg/24 Hr) 1 patch TD Q7D@1000 [facility] Last Admin: 08/30/18 15:53 Dose: 1 patch Dextrose (Dextrose 50% Inj) 0 ml IV STAT PRN; Protocol PRN Reason: Hypoglycemia Protocol Dextrose (Glutose 15) 0 gm PO ONCE PRN; Protocol PRN Reason: Hypoglycemia Protocol Epoetin Mk (Procrit) 10,000 unit IV MWF [facility] Escitalopram Oxalate (Lexapro) 20 mg PO DAILY [facility] Last Admin: 08/30/18 10:55 Dose: 20 mg Glucagon (Glucagen Diagnostic Kit) 0 mg IM STAT PRN; Protocol PRN Reason: Hypoglycemia Protocol Glucagon (Glucagen Diagnostic Kit) 0 mg IM STAT PRN; Protocol PRN Reason: Hypoglycemia Protocol Heparin Sodium (Porcine) (Heparin) 5,000 units SC Q8 [facility] Last Admin: 08/30/18 22:25 Dose: Not Given Heparin Sodium (Porcine) (Heparin (For Dialysis)) 3,700 units IVP TTS [facility] Stop: 09/07/18 15:45 Last Admin: 08/30/18 21:41 Dose: 3,700 units Hydralazine HCl (Apresoline) 50 mg PO TID [facility] Last Admin: 08/30/18 18:00 Dose: Not Given Hydroxyzine HCl (Atarax) 25 mg PO QID PRN PRN Reason: Anxiety Dextrose (Dextrose 5% In Water 1000 Ml) 1,000 mls @ 0 mls/hr IV .Q0M PRN; Protocol PRN Reason: Hypoglycemia Protocol Insulin Detemir (Levemir) 11 unit SC HS [facility] Last Admin: 08/30/18 22:26 Dose: 11 units Insulin Human Regular (Novolin R) 4 unit SC TIDAC [facility] Last Admin: 08/30/18 13:00 Dose: 4 units Insulin Human Regular (Novolin R) 0 unit SC ACHS [facility]; Protocol Last Admin: 08/30/18 22:02 Dose: Not Given Labetalol HCl (Trandate) 10 mg IVP Q4H PRN PRN Reason: Systolic Blood Pressure Lorazepam (Ativan) 1 mg IVP Q6H PRN PRN Reason: SEVERE ANXIETY Last Admin: 08/31/18 05:34 Dose: 1 mg Losartan Potassium (Cozaar) 25 mg PO DAILY [facility] Last Admin: 08/30/18 10:56 Dose: 25 mg Metoclopramide HCl (Reglan) 10 mg IVP Q6H PRN PRN Reason: Nausea/Vomiting Last Admin: 08/28/18 08:23 Dose: 10 mg Ondansetron HCl (Zofran Inj) 4 mg IVP Q6H PRN PRN Reason: Nausea/Vomiting Last Admin: 08/31/18 05:34 Dose: 4 mg Pantoprazole Sodium (Protonix Ec Tab) 40 mg PO DAILY [facility] Last Admin: 08/30/18 10:56 Dose: 40 mg Paricalcitol (Zemplar) 2 mcg IV MWF [facility] Last Admin: 08/30/18 18:50 Dose: 2 mcg Quetiapine Fumarate (Seroquel) 50 mg PO TID [facility] Last Admin: 08/30/18 17:14 Dose: 50 mg Quetiapine Fumarate (Seroquel) 100 mg PO HS [facility] Last Admin: 08/30/18 22:26 Dose: 100 mg - Labs Labs: 08/30/18 18:26 08/30/18 18:26 PT 9.5 SECONDS (9.7-12.2) L 08/30/18 18:26 INR 0.9 08/30/18 18:26 APTT 37.7 SECONDS (21-34) H 08/30/18 18:26 - Additional Findings Additional findings: - Constitutional Appears: Non-toxic, No Acute Distress - Head Exam Head Exam: ATRAUMATIC, NORMOCEPHALIC - Eye Exam Eye Exam: EOMI, PERRL - ENT Exam ENT Exam: Mucous Membranes Moist - Neck Exam Neck Exam: Full ROM - Respiratory Exam Respiratory Exam: Clear to Ausculation Bilateral, NORMAL BREATHING PATTERN. ab sent: Rales, Rhonchi, Wheezes Additional comments: permacath right chest - Cardiovascular Exam Cardiovascular Exam: REGULAR RHYTHM, +S1, +S2. absent: Gallop, Rubs, Murmur - GI/Abdominal Exam GI & Abdominal Exam: Soft. absent: Guarding, Rigid, Tenderness, Normal Bowel Sounds - Extremities Exam Extremities Exam: absent: Calf Tenderness, Pedal Edema Additional comments: Fistula left arm. - Neurological Exam Neurological Exam: Alert, Awake, Oriented x3. absent: Motor Sensory Deficit Additional comments: Moving all extremities - Psychiatric Exam Additional comments: Calm - Skin Skin Exam: Dry, Intact, Warm Assessment and Plan - Assessment and Plan (Free Text) Plan: Patient is a 28 year old female with past history of uncontrolled diabetes, diabetic gastroparesis, ESRD on HD (MWF), and presenting with intractable vomiting and abdominal pain. Patient has had frequent hospital admissions in the past for the same complaints, was recently discharged on 08/24. Patient's medication regimen resumed overnight as per her most recent discharge, for which she had been admitted with the same complaints of intractable abdominal pain and nausea, also known to have pseudoseizures. Intractable vomiting with abdominal pain-improved, chronic Diabetic gastroparesis vs. psychogenic causes -Gastric emptying study canceled,as radiologist concerned patient will likely not tolerate 4 hour exam due to history and previous GI evaluation Meds -Reglan 10mg IV Q6 PRN -Zofran 4mg Q6 PRN -Protonix 40mg daily -NS @ 60cc/hr IV Anxiety/Depression/pseudoseizure, chronic Psych consulted- appreciate recs Meds -Seroquel 50mg PO TID -Seroquel 100mg PO HS -Klonopin 0.5mg PO TID PRN -Atarax 25mg Q6 PRN -Lexapro 20mg po daily -Ativan 1mg Q6H PRN Type 2 DM, chronic elevated blood sugars 500+ on admission ISS high RISS ACHS accucheck ACHS Hypoglycemic treatment protocol ESRD on HD MWF Nephrology following: Dr. Nieves- appreciate recs AV fistula dysfunction -Dr. Hines, vascular surgery, consulted Fall, with bilateral knee pain Bilateral knee Xrays pending CT head- Mild central volume loss. Questionable minimal chronic periventricular white matter ischemic changes. Uncontrolled HTN Meds -Amlodipine 5 mg PO daily -Losartan 25mg PO daily -Coreg 6.25mg PO BID -Hydralazine 50mg PO TID -will use IV labetolol 10mg q4hprn for bp> 180 Prophylaxis - Heparin 5000 units SC Q8 - Protonix 40 mg PO daily - home med - Advance diet to regular, hold if patient starts vomiting - NPO after midnight for AV fistula revision 08/31/18 Dispo: AV fistula revision today with Dr. Hines. Pre-op: CXR 08/28/18: No acute consolidation. No evidence of brittani pulmonary edema. EKG08/27/18: Sinus tachycardia @ 115 Possible L atrial enlargement INR: 0.9 Revised Cardiac Risk Index: Class III risk: 10.1% 30 day risk of , PA, or cardiac arrest Patient medically optimized for AVF revision. Surgery and Anesthesia teams to discuss procedure and risks with patient. Case discussed with Dr. Christine Stewart, PGY-1
[2018-08-31] MEDS: (Novolin R) Insulin Human Regular 100 units/ml vial SC SCH ×5 (08:00→21:33)
[2018-08-31] MEDS: Pantoprazole 40 mg EC Tab PO SCH (10:53)
[2018-08-31 11:22] LABS: BASO % 0.7 % (0.0-2.0); EOS # 0.1 K/uL (0.0-0.7); EOS % 2.2 % (0.0-4.0); HEMOGLOBIN 10.4 g/dL (11.0-16.0); LYMPH # 1.7 K/uL (1.0-4.3); LYMPH % 33.4 % (20.0-40.0); MEAN CELL VOLUME 82.7 fL (81.0-99.0); MEAN CORPUSCULAR HEMOGLOBIN 26.9 pg (27.0-31.0); MEAN CORPUSCULAR HGB CONC 32.5 g/dL (33.0-37.0); MEAN PLATELET VOLUME 8.8 fL (7.2-11.7); MONO # 0.3 K/uL (0.0-0.8); MONO % 5.6 % (0.0-10.0); NEUT % 58.1 % (50.0-75.0); NRBC % 0.2 % (0.0-2.0); RBC 3.87 Mil/uL (3.80-5.20); RED CELL DISTRIBUTION WIDTH 19.3 % (11.5-14.5); WHITE BLOOD COUNT 5.2 K/uL (4.8-10.8)
[2018-08-31 11:32] LABS: INR 0.9
--- NOTE | 2018-08-31 11:47 | RAD ---
Date of service: 08/31/2018 PROCEDURE: Bilateral Knee Radiographs. HISTORY: knee pain, fall COMPARISON: None. TECHNIQUE: 4 views obtained. FINDINGS: BONES: Right Knee: Normal. No fracture. Left Knee: Normal. No fracture. JOINTS: Right Knee: Normal. No osteoarthritis. Left knee: Normal. No osteoarthritis. SOFT TISSUES: Right Knee: Normal. Left Knee: Normal. JOINT EFFUSION: Right Knee: None. Left Knee: None. OTHER FINDINGS: None. IMPRESSION: Normal radiographs of the knees.
--- NOTE | 2018-08-31 11:52 | CP.PCM.PN ---
Subjective - Date & Time of Evaluation Date of Evaluation: 08/31/18 Time of Evaluation: 11:50 - Subjective Subjective: PGY-[address] Nieves, Nephro Just came back from x-ray of knees. No acute complaint. NPO Objective - Vital Signs/Intake and Output Vital Signs (last 24 hours): Temp Pulse Resp BP Pulse Ox 98.1 F 86 20 133/85 98 08/31/18 07:00 08/31/18 07:00 08/31/18 07:00 08/31/18 07:00 08/31/18 07:00 - Medications Medications: Current Medications Amlodipine Besylate (Norvasc) 5 mg PO DAILY [facility] Last Admin: 08/31/18 10:53 Dose: 5 mg Carvedilol (Coreg) 6.25 mg PO BID [facility] Last Admin: 08/31/18 10:53 Dose: 6.25 mg Clonazepam (Klonopin) 0.5 mg PO BID [facility] Last Admin: 08/31/18 10:52 Dose: 0.5 mg Clonidine HCl (Catapres Tts1 0.1 Mg/24 Hr) 1 patch TD Q7D@1000 [facility] Last Admin: 08/30/18 15:53 Dose: 1 patch Dextrose (Dextrose 50% Inj) 0 ml IV STAT PRN; Protocol PRN Reason: Hypoglycemia Protocol Dextrose (Glutose 15) 0 gm PO ONCE PRN; Protocol PRN Reason: Hypoglycemia Protocol Epoetin Mk (Procrit) 10,000 unit IV MWF [facility] Escitalopram Oxalate (Lexapro) 20 mg PO DAILY [facility] Last Admin: 08/31/18 10:52 Dose: 20 mg Glucagon (Glucagen Diagnostic Kit) 0 mg IM STAT PRN; Protocol PRN Reason: Hypoglycemia Protocol Glucagon (Glucagen Diagnostic Kit) 0 mg IM STAT PRN; Protocol PRN Reason: Hypoglycemia Protocol Heparin Sodium (Porcine) (Heparin) 5,000 units SC Q8 [facility] Last Admin: 08/30/18 22:25 Dose: Not Given Heparin Sodium (Porcine) (Heparin (For Dialysis)) 3,700 units IVP TTS [facility] Stop: 09/07/18 15:45 Last Admin: 08/30/18 21:41 Dose: 3,700 units Hydralazine HCl (Apresoline) 50 mg PO TID [facility] Last Admin: 08/31/18 10:53 Dose: 50 mg Hydroxyzine HCl (Atarax) 25 mg PO QID PRN PRN Reason: Anxiety Dextrose (Dextrose 5% In Water 1000 Ml) 1,000 mls @ 0 mls/hr IV .Q0M PRN; Protocol PRN Reason: Hypoglycemia Protocol Insulin Detemir (Levemir) 11 unit SC HS [facility] Last Admin: 08/30/18 22:26 Dose: 11 units Insulin Human Regular (Novolin R) 4 unit SC TIDAC [facility] Last Admin: 08/30/18 13:00 Dose: 4 units Insulin Human Regular (Novolin R) 0 unit SC ACHS [facility]; Protocol Last Admin: 08/31/18 08:00 Dose: Not Given Labetalol HCl (Trandate) 10 mg IVP Q4H PRN PRN Reason: Systolic Blood Pressure Lorazepam (Ativan) 1 mg IVP Q6H PRN PRN Reason: SEVERE ANXIETY Last Admin: 08/31/18 05:34 Dose: 1 mg Losartan Potassium (Cozaar) 25 mg PO DAILY [facility] Last Admin: 08/31/18 10:53 Dose: 25 mg Metoclopramide HCl (Reglan) 10 mg IVP Q6H PRN PRN Reason: Nausea/Vomiting Last Admin: 08/28/18 08:23 Dose: 10 mg Ondansetron HCl (Zofran Inj) 4 mg IVP Q6H PRN PRN Reason: Nausea/Vomiting Last Admin: 08/31/18 05:34 Dose: 4 mg Pantoprazole Sodium (Protonix Ec Tab) 40 mg PO DAILY [facility] Last Admin: 08/31/18 10:53 Dose: 40 mg Paricalcitol (Zemplar) 2 mcg IV MWF [facility] Last Admin: 08/30/18 18:50 Dose: 2 mcg Quetiapine Fumarate (Seroquel) 50 mg PO TID [facility] Last Admin: 08/31/18 10:53 Dose: 50 mg Quetiapine Fumarate (Seroquel) 100 mg PO HS [facility] Last Admin: 08/30/18 22:26 Dose: 100 mg - Labs Labs: 08/31/18 11:13 08/30/18 18:26 PT 9.5 SECONDS (9.7-12.2) L 08/30/18 18:26 INR 0.9 08/31/18 11:13 APTT 29.0 SECONDS (21-34) D 08/31/18 11:13 - Constitutional Appears: No Acute Distress - Head Exam Head Exam: ATRAUMATIC, NORMAL INSPECTION, NORMOCEPHALIC - Eye Exam Eye Exam: EOMI, Normal appearance, PERRL. absent: Scleral icterus Pupil Exam: NORMAL ACCOMODATION - ENT Exam ENT Exam: Mucous Membranes Moist - Neck Exam Additional comments: supple - Respiratory Exam Respiratory Exam: Clear to Ausculation Bilateral. absent: Rales, Rhonchi, Wheezes - Cardiovascular Exam Cardiovascular Exam: REGULAR RHYTHM, +S1, +S2 - GI/Abdominal Exam GI & Abdominal Exam: Soft, Normal Bowel Sounds. absent: Guarding, Rigid, Tende rness - Extremities Exam Extremities Exam: Pedal Edema (slight). absent: Calf Tenderness - Back Exam Back Exam: absent: CVA tenderness (L), CVA tenderness (R) - Neurological Exam Neurological Exam: Alert, Awake, Oriented x3 - Psychiatric Exam Psychiatric exam: Normal Affect, Normal Mood - Skin Skin Exam: Dry, Warm Assessment and Plan - Assessment and Plan (Free Text) Plan: Ms Kenneth Larry, 28 F w/ PMHx htn, IDDM on insulin pump (A1C 6.1) w/ diabetic nephropathy progressing to ESRD earlier this year, on HD (MWF, at [facility] under Dr Nieves outpatient service), multiple admissions with brittle diabetes, intractable vomiting, recently diagnosed MDD, anxiety disorder and factitious disorder along w/ pseudo-seizures, again presented after hypoglycemia at home, complaining of severe abd pain, nephrology being consulted for ESRD care. (1) ESRD on hemodialysis, MWF, via permacath New AV fistula Continue to monitor volume status. Labs indicative of volume contraction/hemoconcentration Stable electrolytes Vasc surgery to revise fistula (OR) this afternoon (2) Hypertensive CKD, ESRD on dialysis BP markedly elevated likely triggered by vomiting, rescued by enalapril 2.5 mg x 1 Continue to trend BP Add clonidine patch at 0.1 qwk Losartan 25 daily, carveldilol 6.25 bid, amlodipine 5, hydralazine 50 tid, IV labelol prn Tolerated PO meds per RN IV labetalol 10 mg prn (3) Anemia in CKD (chronic kidney disease) Hgb dropping, continue monitor; will receive EPO on HD (4) Chronic kidney disease-mineral and bone disorder Pronounced hypophophatemia s/p IV replenishment x 1 PTH level____pending___ Discontinue phos binder (5) Vomiting Questionable self-induced in the setting of diabetic gastroparesis Gastric emptying study____Cancelled Continue to monitor Volume status 1:[address] for behavioral reason (6) Brittle diabetes Managed per primary team s/r/d/w Dr Nieves
[2018-08-31 12:00] LABS: ALB/GLOB RATIO 1.2 (1.0-2.1); ALBUMIN 3.3 g/dL (3.5-5.0); ALT/SGPT 17 U/L (9-52); AST/SGOT 14 U/L (14-36); BLOOD UREA NITROGEN 23 mg/dL (7-17); CALCIUM 8.4 mg/dl (8.6-10.4); GFR NON-AFRICAN AMERICAN 14
[2018-08-31 12:07] LABS: PROTHROMBIN TIME 9.6 SECONDS (9.7-12.2)
[2018-08-31] MEDS ORDERED: HEPARIN-NS 5,000 UNITS/500 ML 5,000 UNIT/500 ML BAG IV ONE (13:47)
[2018-08-31] MEDS ORDERED: Vancomycin 1 gm/D5W 200 ml 0 GM/0 ML BAG IVPB ONE (13:47)
[2018-08-31] MEDS ORDERED: ceFAZolin 1 gm in NS 1 GM/100 ML BAG IVPB ONE (14:08)
[2018-08-31] MEDS ORDERED: HYDROmorphone 0.5 mg/0.5 ml ISec IVP PRN ×2 (15:09→18:20)
[2018-08-31] MEDS ORDERED: Lidocaine Hydrochloride 5 ML INJ ONE (15:10)
[2018-08-31] MEDS ORDERED: Propofol 10 mg/ml Inj (20 ML) ONE (15:10)
[2018-08-31] MEDS ORDERED: Midazolam 2 MG/2 ML VIAL ONE (15:10)
[2018-08-31] MEDS ORDERED: Phenylephrine 10 mg/ml Inj ONE (16:45)
--- NOTE | 2018-08-31 18:19 | PCM.SURG1 ---
Surgeon's Initial Post Op Note - Surgeon's Notes Surgeon: Dr. Hines Kennel Aide: Logan PGY2 Type of Anesthesia: General LMA Anesthesia Administered By: Dr. Bhakta Pre-Operative Diagnosis: ESRD on HD, malfunctioning LUE AVF Operative Findings: ESRD on HD, malfunctioning LUE AVF Post-Operative Diagnosis: ESRD on HD, malfunctioning LUE AVF Operation Performed: LUE AV shunt creation Specimen/Specimens Removed: N/A Estimated Blood Loss: EBL {In ML}: 25 Blood Products Given: N/A Drains Used: No Drains Post-Op Condition: Good Date of Surgery/Procedure: 08/31/18 Time of Surgery/Procedure: 18:19
[2018-08-31] MEDS ORDERED: Dextrose 50% SYRINGE Inj (50 ml) IV STA ×2 (18:24)
[2018-08-31] MEDS ORDERED: Dextrose 50% SYRINGE Inj (50 ml) ONE (18:26)
[2018-08-31] MEDS: Insulin Detemir 100 units/ml Vial (Levemir) SC SCH (21:31)
[2018-08-31] MEDS: HYDROmorphone 0.5 mg/0.5 ml ISec IVP PRN (23:15)
[2018-09-01] MEDS: HYDROmorphone 0.5 mg/0.5 ml ISec IVP PRN ×2 (03:15→12:52)
--- NOTE | 2018-09-01 05:09 | OP ---
PROCEDURE DATE: 08/31/2018 PREOPERATIVE DIAGNOSIS: Renal failure, immature fistula of left arm. POSTOPERATIVE DIAGNOSIS: Renal failure, immature fistula of left arm. PROCEDURE CARRIED OUT: Revision of arteriovenous fistula, placement of Bovine forearm loop graft. SURGEON: Tawanda Hines Jr, MD DITCHER: Cisco Ford DO ANESTHESIOLOGIST: Dr. Alvarez. INDICATIONS: The patient is an 28-year-old woman with renal insufficiency. She has no vein visible on ultrasound and vein mapping. Because of this, we created a brachio-brachial fistula at the elbow in the emergency room. Due to variety of reasons including noncompliance on the patient's part, we were unable to create a new fistula in the meantime and now finally, she is in suitable medical condition to undergo the surgery. OPERATIVE FINDINGS: At the end of the procedure, there was flow to the fistula and there was a good pulse at the wrist. We did the operation by dissecting out the previously arterialized vein and then anastomosing the graft to the arterialized vein just elbow the antecubital fossa and then to the adjacent vein, which was also partially arterialized but nowhere near the stent of the arterial portion of it. After the anastomosis have been completed with a 6-mm Bovine graft, we then closed the wounds with Monocryl and Vicryl sutures. Heparin was used during the procedure with loop magnification. We made a careful check throughout the procedure to maintain whether there was adequate inflow into the forearm. Blood loss for the procedure was 50 mL and operation carried out is revision of arteriovenous fistula of left arm with placement of Bovine graft. Tawanda Hines Jr., MD
[2018-09-01] MEDS: (Novolin R) Insulin Human Regular 100 units/ml vial SC SCH ×4 (06:46→12:58)
--- NOTE | 2018-09-01 09:56 | CP.PCM.PN ---
Subjective - Date & Time of Evaluation Date of Evaluation: 09/01/18 Time of Evaluation: 09:54 - Subjective Subjective: DR KING SERVICE- IM Pt s/e at bedside, reports no acute complaints overnight except for soreness at AVF site L ARM. Pt says Dr Hines told her he can't hear a thrill when he saw her this AM. Pt denies CP SOB FC NV at this time. Objective - Vital Signs/Intake and Output Vital Signs (last 24 hours): Temp Pulse Resp BP Pulse Ox 98.1 F 80 20 140/87 98 09/01/18 07:00 09/01/18 07:00 09/01/18 07:00 09/01/18 07:00 09/01/18 07:00 Intake and Output: 09/01/18 09/01/18 06:59 18:59 Intake Total 20 Balance 20 - Medications Medications: Current Medications Amlodipine Besylate (Norvasc) 5 mg PO DAILY [facility] Last Admin: 08/31/18 10:53 Dose: 5 mg Carvedilol (Coreg) 6.25 mg PO BID [facility] Last Admin: 08/31/18 18:00 Dose: Not Given Clonazepam (Klonopin) 0.5 mg PO BID [facility] Last Admin: 08/31/18 18:00 Dose: Not Given Clonidine HCl (Catapres Tts1 0.1 Mg/24 Hr) 1 patch TD Q7D@1000 [facility] Last Admin: 08/30/18 15:53 Dose: 1 patch Dextrose (Dextrose 50% Inj) 0 ml IV STAT PRN; Protocol PRN Reason: Hypoglycemia Protocol Dextrose (Glutose 15) 0 gm PO ONCE PRN; Protocol PRN Reason: Hypoglycemia Protocol Epoetin Mk (Procrit) 10,000 unit IV MWF [facility] Escitalopram Oxalate (Lexapro) 20 mg PO DAILY [facility] Last Admin: 08/31/18 10:52 Dose: 20 mg Glucagon (Glucagen Diagnostic Kit) 0 mg IM STAT PRN; Protocol PRN Reason: Hypoglycemia Protocol Glucagon (Glucagen Diagnostic Kit) 0 mg IM STAT PRN; Protocol PRN Reason: Hypoglycemia Protocol Heparin Sodium (Porcine) (Heparin) 5,000 units SC Q8 [facility] Last Admin: 08/30/18 22:25 Dose: Not Given Heparin Sodium (Porcine) (Heparin (For Dialysis)) 3,700 units IVP TTS [facility] Stop: 09/07/18 15:45 Last Admin: 08/31/18 10:00 Dose: Not Given Hydralazine HCl (Apresoline) 50 mg PO TID [facility] Last Admin: 08/31/18 18:00 Dose: Not Given Hydromorphone HCl (Dilaudid) 0.5 mg IVP Q4H PRN PRN Reason: Pain, severe (8-10) Last Admin: 09/01/18 03:15 Dose: 0.5 mg Hydroxyzine HCl (Atarax) 25 mg PO QID PRN PRN Reason: Anxiety Dextrose (Dextrose 5% In Water 1000 Ml) 1,000 mls @ 0 mls/hr IV .Q0M PRN; P rotocol PRN Reason: Hypoglycemia Protocol Last Admin: 08/31/18 18:30 Dose: 200 mls Insulin Detemir (Levemir) 11 unit SC HS [facility] Last Admin: 08/31/18 21:31 Dose: 11 units Insulin Human Regular (Novolin R) 4 unit SC TIDAC [facility] Last Admin: 09/01/18 06:46 Dose: 4 units Insulin Human Regular (Novolin R) 0 unit SC ACHS [facility]; Protocol Last Admin: 09/01/18 06:47 Dose: 12 units Labetalol HCl (Trandate) 10 mg IVP Q4H PRN PRN Reason: Systolic Blood Pressure Lorazepam (Ativan) 1 mg IVP Q6H PRN PRN Reason: SEVERE ANXIETY Last Admin: 09/01/18 06:43 Dose: 1 mg Losartan Potassium (Cozaar) 25 mg PO DAILY [facility] Last Admin: 08/31/18 10:53 Dose: 25 mg Metoclopramide HCl (Reglan) 10 mg IVP Q6H PRN PRN Reason: Nausea/Vomiting Last Admin: 08/28/18 08:23 Dose: 10 mg Ondansetron HCl (Zofran Inj) 4 mg IVP Q6H PRN PRN Reason: Nausea/Vomiting Last Admin: 08/31/18 05:34 Dose: 4 mg Pantoprazole Sodium (Protonix Ec Tab) 40 mg PO DAILY [facility] Last Admin: 08/31/18 10:53 Dose: 40 mg Paricalcitol (Zemplar) 2 mcg IV MWF [facility] Last Admin: 08/30/18 18:50 Dose: 2 mcg Quetiapine Fumarate (Seroquel) 50 mg PO TID [facility] Last Admin: 08/31/18 18:00 Dose: Not Given Quetiapine Fumarate (Seroquel) 100 mg PO HS [facility] Last Admin: 08/31/18 21:31 Dose: 100 mg - Labs Labs: 08/31/18 11:13 08/31/18 11:13 PT 9.6 SECONDS (9.7-12.2) L 08/31/18 11:13 INR 0.9 08/31/18 11:13 APTT 29.0 SECONDS (21-34) D 08/31/18 11:13 - Additional Findings Additional findings: - Constitutional Appears: Non-toxic, No Acute Distress - Head Exam Head Exam: ATRAUMATIC, NORMOCEPHALIC - Eye Exam Eye Exam: EOMI, PERRL - ENT Exam ENT Exam: Mucous Membranes Moist - Neck Exam Neck Exam: Full ROM - Respiratory Exam Respiratory Exam: Clear to Ausculation Bilateral, NORMAL BREATHING PATTERN. absent: Rales, Rhonchi, Wheezes Additional comments: permacath right chest - Cardiovascular Exam Cardiovascular Exam: REGULAR RHYTHM, +S1, +S2. absent: Gallop, Rubs, Murmur - GI/Abdominal Exam GI & Abdominal Exam: Soft. absent: Guarding, Rigid, Tenderness, Normal Bowel Sounds - Extremities Exam Extremities Exam: absent: Calf Tenderness, Pedal Edema Additional comments: Fistula left arm. - No thrill palpated or auscultated - Neurological Exam Neurological Exam: Alert, Awake, Oriented x3. absent: Motor Sensory Deficit Additional comments: Moving all extremities - Psychiatric Exam Additional comments: Calm - Skin Skin Exam: Dry, Intact, Warm Assessment and Plan - Assessment and Plan (Free Text) Assessment: Plan: Patient is a 28 year old female with past history of uncontrolled diabetes, diabetic gastroparesis, ESRD on HD (MWF), and presenting with intractable vomiting and abdominal pain. Patient has had frequent hospital admissions in the past for the same complaints, was recently discharged on 08/24. Patient's medication regimen resumed overnight as per her most recent discharge, for which she had been admitted with the same complaints of intractable abdominal pain and nausea, also known to have pseudoseizures. Went for AVF revision sx w/ Dr Hines on 08/31. Intractable vomiting with abdominal pain-improved, chronic Diabetic gastroparesis vs. psychogenic causes -Gastric emptying study canceled,as radiologist concerned patient will likely not tolerate 4 hour exam due to history and previous GI evaluation Meds -Reglan 10mg IV Q6 PRN -Zofran 4mg Q6 PRN -Protonix 40mg daily -NS @ 60cc/hr IV Anxiety/Depression/pseudoseizure, chronic Psych consulted- appreciate recs Meds -Seroquel 50mg PO TID -Seroquel 100mg PO HS -Klonopin 0.5mg PO TID PRN -Atarax 25mg Q6 PRN -Lexapro 20mg po daily -Ativan 1mg Q6H PRN Type 2 DM, chronic elevated blood sugars 500+ on admission ISS high RISS ACHS accucheck ACHS Hypoglycemic treatment protocol ESRD on HD [facility] Nephrology following: Dr. Nieves- appreciate recs AV fistula dysfunction -Dr. Hines, vascular surgery, consulted POD#1, absent palpable or audible thrill, f/u recs Fall, with bilateral knee pain Bilateral knee Xrays pending CT head- Mild central volume loss. Questionable minimal chronic periventricular white matter ischemic changes. Uncontrolled HTN Meds -Amlodipine 5 mg PO daily -Losartan 25mg PO daily -Coreg 6.25mg PO BID -Hydralazine 50mg PO TID -will use IV labetolol 10mg q4hprn for bp> 180 Prophylaxis - Heparin 5000 units SC Q8 - Protonix 40 mg PO daily - home med - Advance diet to regular, hold if patient starts vomiting - NPO after midnight for AV fistula revision 08/31/18 Dispo: AV fistula revision POD#1. Revised Cardiac Risk Index: Class III risk: 10.1% 30 day risk of , [place], or cardiac arrest Patient medically optimized for AVF revision. Surgery and Anesthesia teams to discuss procedure and risks with patient. Case discussed with Dr. King
[2018-09-01] MEDS: Pantoprazole 40 mg EC Tab PO SCH (10:26)
--- NOTE | 2018-09-01 10:33 | CP.PCM.PN ---
Subjective - Date & Time of Evaluation Date of Evaluation: 09/01/18 Time of Evaluation: 10:32 - Subjective Subjective: good pulse audible bruit left arm office for suture removal Objective - Vital Signs/Intake and Output Vital Signs (last 24 hours): Temp Pulse Resp BP Pulse Ox 98.1 F 80 20 140/87 98 09/01/18 07:00 09/01/18 07:00 09/01/18 07:00 09/01/18 07:00 09/01/18 07:00 Intake and Output: 09/01/18 09/01/18 06:59 18:59 Intake Total 20 Balance 20 - Medications Medications: Current Medications Amlodipine Besylate (Norvasc) 5 mg PO DAILY [facility] Last Admin: 09/01/18 10:26 Dose: 5 mg Carvedilol (Coreg) 6.25 mg PO BID [facility] Last Admin: 09/01/18 10:25 Dose: 6.25 mg Clonazepam (Klonopin) 0.5 mg PO BID [facility] Last Admin: 09/01/18 10:25 Dose: 0.5 mg Clonidine HCl (Catapres Tts1 0.1 Mg/24 Hr) 1 patch TD Q7D@1000 [facility] Last Admin: 08/30/18 15:53 Dose: 1 patch Dextrose (Dextrose 50% Inj) 0 ml IV STAT PRN; Protocol PRN Reason: Hypoglycemia Protocol Dextrose (Glutose 15) 0 gm PO ONCE PRN; Protocol PRN Reason: Hypoglycemia Protocol Epoetin Mk (Procrit) 10,000 unit IV MWF [facility] Escitalopram Oxalate (Lexapro) 20 mg PO DAILY [facility] Last Admin: 09/01/18 10:27 Dose: 20 mg Glucagon (Glucagen Diagnostic Kit) 0 mg IM STAT PRN; Protocol PRN Reason: Hypoglycemia Protocol Glucagon (Glucagen Diagnostic Kit) 0 mg IM STAT PRN; Protocol PRN Reason: Hypoglycemia Protocol Heparin Sodium (Porcine) (Heparin) 5,000 units SC Q8 [facility] Last Admin: 08/30/18 22:25 Dose: Not Given Heparin Sodium (Porcine) (Heparin (For Dialysis)) 3,700 units IVP TTS [facility] Stop: 09/07/18 15:45 Last Admin: 08/31/18 10:00 Dose: Not Given Hydralazine HCl (Apresoline) 50 mg PO TID [facility] Last Admin: 09/01/18 10:26 Dose: 50 mg Hydromorphone HCl (Dilaudid) 0.5 mg IVP Q4H PRN PRN Reason: Pain, severe (8-10) Last Admin: 09/01/18 03:15 Dose: 0.5 mg Hydroxyzine HCl (Atarax) 25 mg PO QID PRN PRN Reason: Anxiety Dextrose (Dextrose 5% In Water 1000 Ml) 1,000 mls @ 0 mls/hr IV .Q0M PRN; Protocol PRN Reason: Hypoglycemia Protocol Last Admin: 08/31/18 18:30 Dose: 200 mls Insulin Detemir (Levemir) 11 unit SC HS [facility] Last Admin: 08/31/18 21:31 Dose: 11 units Insulin Human Regular (Novolin R) 4 unit SC TIDAC [facility] Last Admin: 09/01/18 06:46 Dose: 4 units Insulin Human Regular (Novolin R) 0 unit SC ACHS [facility]; Protocol Last Admin: 09/01/18 06:47 Dose: 12 units Labetalol HCl (Trandate) 10 mg IVP Q4H PRN PRN Reason: Systolic Blood Pressure Lorazepam (Ativan) 1 mg IVP Q6H PRN PRN Reason: SEVERE ANXIETY Last Admin: 09/01/18 06:43 Dose: 1 mg Losartan Potassium (Cozaar) 25 mg PO DAILY [facility] Last Admin: 09/01/18 10:27 Dose: 25 mg Metoclopramide HCl (Reglan) 10 mg IVP Q6H PRN PRN Reason: Nausea/Vomiting Last Admin: 08/28/18 08:23 Dose: 10 mg Ondansetron HCl (Zofran Inj) 4 mg IVP Q6H PRN PRN Reason: Nausea/Vomiting Last Admin: 08/31/18 05:34 Dose: 4 mg Pantoprazole Sodium (Protonix Ec Tab) 40 mg PO DAILY [facility] Last Admin: 09/01/18 10:26 Dose: 40 mg Paricalcitol (Zemplar) 2 mcg IV MWF [facility] Last Admin: 08/30/18 18:50 Dose: 2 mcg Quetiapine Fumarate (Seroquel) 50 mg PO TID [facility] Last Admin: 09/01/18 10:25 Dose: 50 mg Quetiapine Fumarate (Seroquel) 100 mg PO [facility] Last Admin: 08/31/18 21:31 Dose: 100 mg - Labs Labs: 08/31/18 11:13 08/31/18 11:13 PT 9.6 SECONDS (9.7-12.2) L 08/31/18 11:13 INR 0.9 08/31/18 11:13 APTT 29.0 SECONDS (21-34) D 08/31/18 11:13
--- NOTE | 2018-09-01 11:11 | CP.PCM.PN ---
Subjective - Date & Time of Evaluation Date of Evaluation: 09/01/18 Time of Evaluation: 11:08 - Subjective Subjective: PGY-[address] Nieves Nephro Pt complaint of pain at AV site. No other acute complaint Objective - Vital Signs/Intake and Output Vital Signs (last 24 hours): Temp Pulse Resp BP Pulse Ox 98.1 F 80 20 140/87 98 09/01/18 07:00 09/01/18 07:00 09/01/18 07:00 09/01/18 07:00 09/01/18 07:00 Intake and Output: 09/01/18 09/01/18 06:59 18:59 Intake Total 20 Balance 20 - Medications Medications: Current Medications Amlodipine Besylate (Norvasc) 5 mg PO DAILY [facility] Last Admin: 09/01/18 10:26 Dose: 5 mg Carvedilol (Coreg) 6.25 mg PO BID [facility] Last Admin: 09/01/18 10:25 Dose: 6.25 mg Clonazepam (Klonopin) 0.5 mg PO BID [facility] Last Admin: 09/01/18 10:25 Dose: 0.5 mg Clonidine HCl (Catapres Tts1 0.1 Mg/24 Hr) 1 patch TD Q7D@1000 [facility] Last Admin: 08/30/18 15:53 Dose: 1 patch Dextrose (Dextrose 50% Inj) 0 ml IV STAT PRN; Protocol PRN Reason: Hypoglycemia Protocol Dextrose (Glutose 15) 0 gm PO ONCE PRN; Protocol PRN Reason: Hypoglycemia Protocol Epoetin Mk (Procrit) 10,000 unit IV MWF [facility] Escitalopram Oxalate (Lexapro) 20 mg PO DAILY [facility] Last Admin: 09/01/18 10:27 Dose: 20 mg Glucagon (Glucagen Diagnostic Kit) 0 mg IM STAT PRN; Protocol PRN Reason: Hypoglycemia Protocol Glucagon (Glucagen Diagnostic Kit) 0 mg IM STAT PRN; Protocol PRN Reason: Hypoglycemia Protocol Heparin Sodium (Porcine) (Heparin) 5,000 units SC Q8 [facility] Last Admin: 08/30/18 22:25 Dose: Not Given Heparin Sodium (Porcine) (Heparin (For Dialysis)) 3,700 units IVP TTS [facility] Stop: 09/07/18 15:45 Last Admin: 08/31/18 10:00 Dose: Not Given Hydralazine HCl (Apresoline) 50 mg PO TID [facility] Last Admin: 09/01/18 10:26 Dose: 50 mg Hydromorphone HCl (Dilaudid) 0.5 mg IVP Q4H PRN PRN Reason: Pain, severe (8-10) Last Admin: 09/01/18 03:15 Dose: 0.5 mg Hydroxyzine HCl (Atarax) 25 mg PO QID PRN PRN Reason: Anxiety Dextrose (Dextrose 5% In Water 1000 Ml) 1,000 mls @ 0 mls/hr IV .Q0M PRN; Protocol PRN Reason: Hypoglycemia Protocol Last Admin: 08/31/18 18:30 Dose: 200 mls Insulin Detemir (Levemir) 11 unit SC HS [facility] Last Admin: 08/31/18 21:31 Dose: 11 units Insulin Human Regular (Novolin R) 4 unit SC TIDAC [facility] Last Admin: 09/01/18 06:46 Dose: 4 units Insulin Human Regular (Novolin R) 0 unit SC ACHS [facility]; Protocol Last Admin: 09/01/18 06:47 Dose: 12 units Labetalol HCl (Trandate) 10 mg IVP Q4H PRN PRN Reason: Systolic Blood Pressure Lorazepam (Ativan) 1 mg IVP Q6H PRN PRN Reason: SEVERE ANXIETY Last Admin: 09/01/18 06:43 Dose: 1 mg Losartan Potassium (Cozaar) 25 mg PO DAILY [facility] Last Admin: 09/01/18 10:27 Dose: 25 mg Metoclopramide HCl (Reglan) 10 mg IVP Q6H PRN PRN Reason: Nausea/Vomiting Last Admin: 08/28/18 08:23 Dose: 10 mg Ondansetron HCl (Zofran Inj) 4 mg IVP Q6H PRN PRN Reason: Nausea/Vomiting Last Admin: 08/31/18 05:34 Dose: 4 mg Pantoprazole Sodium (Protonix Ec Tab) 40 mg PO DAILY [facility] Last Admin: 09/01/18 10:26 Dose: 40 mg Paricalcitol (Zemplar) 2 mcg IV MWF [facility] Last Admin: 08/30/18 18:50 Dose: 2 mcg Quetiapine Fumarate (Seroquel) 50 mg PO TID [facility] Last Admin: 09/01/18 10:25 Dose: 50 mg Quetiapine Fumarate (Seroquel) 100 mg PO HS [facility] Last Admin: 08/31/18 21:31 Dose: 100 mg - Labs Labs: 08/31/18 11:13 08/31/18 11:13 PT 9.6 SECONDS (9.7-12.2) L 08/31/18 11:13 INR 0.9 08/31/18 11:13 APTT 29.0 SECONDS (21-34) D 08/31/18 11:13 - Constitutional Appears: No Acute Distress - Head Exam Head Exam: ATRAUMATIC, NORMAL INSPECTION, NORMOCEPHALIC - Eye Exam Eye Exam: EOMI, Normal appearance, PERRL. absent: Scleral icterus Pupil Exam: NORMAL ACCOMODATION - ENT Exam ENT Exam: Mucous Membranes Moist - Neck Exam Additional comments: supple - Respiratory Exam Respiratory Exam: Clear to Ausculation Bilateral. absent: Rales, Rhonchi, Wheezes - Cardiovascular Exam Cardiovascular Exam: REGULAR RHYTHM, +S1, +S2 - GI/Abdominal Exam GI & Abdominal Exam: Soft, Normal Bowel Sounds. absent: Tenderness - Extremities Exam Extremities Exam: Normal Capillary Refill, Pedal Edema (mild). absent: Calf Tenderness Additional comments: no palpible thrill, (+) audible bruit - Back Exam Back Exam: absent: CVA tenderness (L), CVA tenderness (R) - Neurological Exam Neurological Exam: Alert, Awake, Oriented x3 - Psychiatric Exam Psychiatric exam: Normal Affect, Normal Mood - Skin Skin Exam: Dry, Warm Assessment and Plan - Assessment and Plan (Free Text) Plan: Ms Kenneth Larry, 28 F w/ PMHx htn, IDDM on insulin pump (A1C 6.1) w/ diabetic nephropathy progressing to ESRD earlier this year, on HD (MWF, at [facility] under Dr Nieves outpatient service), multiple admissions with brittle diabetes, intractable vomiting, recently diagnosed MDD, anxiety disorder and factitious disorder along w/ pseudo-seizures, again presented after hypoglycemia at home, complaining of severe abd pain, nephrology being consulted for ESRD care. (1) ESRD on hemodialysis, MWF, via permacath New AV fistula with decresaed flow, s/p AV graft POD #1 Continue to monitor volume status. Avoid hypoperfusion to maintain graft flow to prevent clotting. Decresae BP med to aide in flow Stable electrolytes follow up outpatient for suture removal. pain control per primary and surgical team (2) Hypertensive CKD, ESRD on dialysis Continue to trend BP Add clonidine patch at 0.1 qwk Losartan 25 daily, carveldilol 6.25 bid, amlodipine 5, hydralazine 25 tid, IV labelol prn Tolerated PO meds per RN IV labetalol 10 mg prn (3) Anemia in CKD (chronic kidney disease) Hgb dropping, continue monitor; will receive EPO on HD (4) Chronic kidney disease-mineral and bone disorder Pronounced hypophophatemia s/p IV replenishment x 1 PTH level____pending___ Discontinue phos binder (5) Vomiting Questionable self-induced in the setting of diabetic gastroparesis Gastric emptying study____Cancelled as radiologist concerned patient will likely not tolerate 4 hour exam due to history and previous GI evaluation Continue to monitor Volume status 1:[address] for behavioral reason (6) Brittle diabetes hypoglycemia due to npo-resolved Managed per primary team s/r/d/w Dr Nieves
--- NOTE | 2018-09-01 13:30 | CP.PCM.DIS ---
Provider - Provider Date of Admission: 08/30/18 15:18 Attending physician: Reza King Jr, MD Consults: 08/27/18 23:17 Physician Consult Routine Comment: opiate dependence Consulting Provider: Jomar Mckeon Consulting Physician: Jomar Mckeon Reason for Consult: psych 08/28/18 00:13 Nephrology Consult Routine Comment: Consulting Provider: Migue Nieves Consulting Physician: Migue Nieves Reason for Consult: ESRD on HD 08/30/18 11:36 Physician Consult Routine Comment: Consulting Provider: Tawanda Hines Jr. Consulting Physician: Tawanda Hines Jr. Reason for Consult: AV fistula revision 08/30/18 18:23 Case Management Referral Routine Comment: routine Physician Instructions: referral Reason For Exam: needs assistance with adl,with homemaker Reason for Referral: Discharge Planning Time Spent in preparation of Discharge (in minutes): 45 Diagnosis - Discharge Diagnosis (1) ARF (acute renal failure) Status: Acute (2) Gastroparesis Status: Acute (3) Nausea Status: Acute Hospital Course - Lab Results Lab Results: Most Recent Lab Values WBC 5.2 K/uL (4.8-10.8) 08/31/18 11:13 RBC 3.87 Mil/uL (3.80-5.20) 08/31/18 11:13 Hgb 10.4 g/dL (11.0-16.0) L 08/31/18 11:13 Hct 32.0 % (34.0-47.0) L 08/31/18 11:13 MCV 82.7 fL (81.0-99.0) 08/31/18 11:13 MCH 26.9 pg (27.0-31.0) L 08/31/18 11:13 MCHC 32.5 g/dL (33.0-37.0) L 08/31/18 11:13 RDW 19.3 % (11.5-14.5) H 08/31/18 11:13 Plt Count 278 K/uL (130-400) 08/31/18 11:13 MPV 8.8 fL (7.2-11.7) 08/31/18 11:13 Neut % (Auto) 58.1 % (50.0-75.0) 08/31/18 11:13 Lymph % (Auto) 33.4 % (20.0-40.0) 08/31/18 11:13 [place] % (Auto) 5.6 % (0.0-10.0) 08/31/18 11:13 Eos % (Auto) 2.2 % (0.0-4.0) 08/31/18 11:13 Baso % (Auto) 0.7 % (0.0-2.0) 08/31/18 11:13 Neut # (Auto) 3.0 K/uL (1.8-7.0) 08/31/18 11:13 Lymph # (Auto) 1.7 K/uL (1.0-4.3) 08/31/18 11:13 [place]he # (Auto) 0.3 K/uL (0.0-0.8) 08/31/18 11:13 Eos # (Auto) 0.1 K/uL (0.0-0.7) 08/31/18 11:13 Baso # (Auto) 0.0 K/uL (0.0-0.2) 08/31/18 11:13 PT 9.6 SECONDS (9.7-12.2) L 08/31/18 11:13 INR 0.9 08/31/18 11:13 APTT 29.0 SECONDS (21-34) D 08/31/18 11:13 Sodium 133 mmol/L (132-148) 08/31/18 11:13 Potassium 5.0 mmol/L (3.6-5.2) 08/31/18 11:13 Chloride 100 mmol/L (98-107) 08/31/18 11:13 Carbon Dioxide 24 mmol/L (22-30) 08/31/18 11:13 Anion Gap 14 (10-20) 08/31/18 11:13 BUN 23 mg/dL (7-17) H 08/31/18 11:13 Creatinine 3.8 mg/dL (0.7-1.2) H 08/31/18 11:13 Est GFR ( Amer) 17 08/31/18 11:13 Est GFR (Non-Af Amer) 14 08/31/18 11:13 POC Glucose (mg/dL) 359 mg/dL (65-110) H 08/31/18 21:04 Random Glucose 409 mg/dL (65-105) H* D 08/31/18 11:13 Calcium 8.4 mg/dl (8.6-10.4) L 08/31/18 11:13 Phosphorus 3.5 mg/dL (2.5-4.5) 08/31/18 11:13 Magnesium 1.9 mg/dL (1.6-2.3) 08/31/18 11:13 Total Bilirubin 0.1 mg/dL (0.2-1.3) L 08/31/18 11:13 AST 14 U/L (14-36) 08/31/18 11:13 ALT 17 U/L (9-52) 08/31/18 11:13 Alkaline Phosphatase 131 U/L (38-126) H D 08/31/18 11:13 Troponin I 0.0230 ng/mL (0.00-0.120) 08/27/18 18:53 Total Protein 5.9 g/dL (6.3-8.3) L 08/31/18 11:13 Albumin 3.3 g/dL (3.5-5.0) L 08/31/18 11:13 Globulin 2.6 gm/dL (2.2-3.9) 08/31/18 11:13 Albumin/Globulin Ratio 1.2 (1.0-2.1) 08/31/18 11:13 Lipase 45 U/L (23-300) 08/27/18 18:53 Beta HCG, Quant < 2.39 mIU/ML 08/31/18 11:13 Urine Opiates Screen Negative (NEGATIVE) 08/28/18 02:23 Urine Methadone Screen Negative (NEGATIVE) 08/28/18 02:23 Ur Barbiturates Screen Negative (NEGATIVE) 08/28/18 02:23 Ur Phencyclidine Scrn Negative (NEGATIVE) 08/28/18 02:23 Ur Amphetamines Screen Negative (NEGATIVE) 08/28/18 02:23 U Benzodiazepines Scrn Negative (NEGATIVE) 08/28/18 02:23 U Oth Cocaine Metabols Negative (NEGATIVE) 08/28/18 02:23 U Cannabinoids Screen Negative (NEGATIVE) 08/28/18 02:23 Alcohol, Quantitative < 10 mg/dl (0-10) 08/27/18 18:53 Blood Type O POSITIVE 08/31/18 11:13 Antibody Screen Negative 08/31/18 11:13 - Hospital Course Hospital Course: Patient was admitted for abdominal pain and vomiting, blood sugars were uncontrolled, patient was seen by nephro and vasc surgery, AVF revision was 08/31, Pt abd pain improved, pt will be dc home and instructed to follow up outpt for gastric emptying study Please take the following medications as prescribed home Hydralazine changed to 25 TID Clonidine patch 0.1 Q7day Losartan 25mg daily Coreg 6.25 BID Amlodipine 5mg daily Novolin 5u with meals, Levemir 10u at night Seroquel 50mg TID, 100mg HS Atarax at night PRN for agitation/itchiness Avoid hypotension Please follow up with PMD within 7 day Please follow up with Dr iNeves within 7 days Please follow up with Dr Hines within 7 days Discharge Exam - Head Exam Head Exam: ATRAUMATIC, NORMAL INSPECTION, NORMOCEPHALIC - Additional Findings Additional findings: - Constitutional Appears: No Acute Distress - Head Exam Head Exam: ATRAUMATIC, NORMAL INSPECTION, NORMOCEPHALIC - Eye Exam Eye Exam: EOMI, Normal appearance, PERRL. absent: Scleral icterus Pupil Exam: NORMAL ACCOMODATION - ENT Exam ENT Exam: Mucous Membranes Moist - Neck Exam Additional comments: supple - Respiratory Exam Respiratory Exam: Clear to Ausculation Bilateral. absent: Rales, Rhonchi, Wheezes - Cardiovascular Exam Cardiovascular Exam: REGULAR RHYTHM, +S1, +S2 - GI/Abdominal Exam GI & Abdominal Exam: Soft, Normal Bowel Sounds. absent: Tenderness - Extremities Exam Extremities Exam: Normal Capillary Refill, Pedal Edema (mild). absent: Calf Tenderness Additional comments: no palpible thrill, (+) audible bruit - Back Exam Back Exam: absent: CVA tenderness (L), CVA tenderness (R) - Neurological Exam Neurological Exam: Alert, Awake, Oriented x3 - Psychiatric Exam Psychiatric exam: Normal Affect, Normal Mood - Skin Skin Exam: Dry, Warm Discharge Plan - Discharge Medications Prescriptions: amLODIPine [Norvasc] 1 tab PO DAILY #30 tab Carvedilol [Coreg] 6.25 mg PO BID #60 tab cloNIDine 0.2 mg/24 hr [catapres-TTS2 0.2 mg/24 hr] 1 patch TD Q7D@1000 #7 patch Escitalopram [Lexapro] 20 mg PO DAILY #30 tab hydrALAZINE [Apresoline] 25 mg PO TID #90 tab hydrOXYzine HCl [Atarax] 1 tab PO HS PRN #7 tab PRN Reason: Anxiety Insulin Detemir [Levemir] 10 unit SC HS #1 unit Insulin Human Regular [Novolin R] 5 unit SC ACHS #1 unit QUEtiapine [Seroquel] 100 mg PO HS #30 tab QUEtiapine [SEROquel] 50 mg PO TID #90 tab - Follow Up Plan Condition: GOOD Disposition: HOME/ ROUTINE Instructions: Kidney Failure (DC), Diabetes Diet , Acute Kidney Injury (DC) Additional Instructions: Please take the following medications as prescribed home Hydralazine changed to 25 TID Clonidine patch 0.1 Q7day Losartan 25mg daily Coreg 6.25 BID Amlodipine 5mg daily Novolin 5u with meals, Levemir 10u at night Seroquel 50mg TID, 100mg HS Atarax at night PRN for agitation/itchiness Avoid hypotension Please follow up with PMD within 7 day Please follow up with Dr Nieves within 7 days Please follow up with Dr Hines within 7 days Referrals: Reza King Jr., MD [Medical Doctor] - Tawanda Hines Jr., MD [Staff Provider] - Migue Nieves MD [Staff Provider] -
[2018-09-01 15:23] LABS: BASO % 0.4 % (0.0-2.0); EOS # 0.3 K/uL (0.0-0.7); EOS % 3.7 % (0.0-4.0); HEMOGLOBIN 9.1 g/dL (11.0-16.0); LYMPH # 2.3 K/uL (1.0-4.3); LYMPH % 31.2 % (20.0-40.0); MEAN CELL VOLUME 83.2 fL (81.0-99.0); MEAN CORPUSCULAR HEMOGLOBIN 26.3 pg (27.0-31.0); MEAN CORPUSCULAR HGB CONC 31.6 g/dL (33.0-37.0); MEAN PLATELET VOLUME 8.8 fL (7.2-11.7); MONO # 0.6 K/uL (0.0-0.8); MONO % 8.5 % (0.0-10.0); NEUT # 4.2 K/uL (1.8-7.0); NEUT % 56.2 % (50.0-75.0); NRBC % 0.1 % (0.0-2.0); RBC 3.45 Mil/uL (3.80-5.20); WHITE BLOOD COUNT 7.5 K/uL (4.8-10.8)
[2018-09-01 15:58] LABS: ALB/GLOB RATIO 1.2 (1.0-2.1); ALBUMIN 3.1 g/dL (3.5-5.0); CALCIUM 8.6 mg/dl (8.6-10.4)
[2018-09-01 16:23] VITALS: RESP 17; TEMP 97.8
[2018-09-01 18:06] VITALS: BP 128/86; PULSE 85
[2018-09-02 13:20] VITALS: O2SAT 99
== END 2018-09-01 20:14 | disposition home or self-care (01) | DRG 550 ==
LOC: C.ER 16:31 → C.9E 23:16 → C.6T 08-28 00:15 → OBSVTOIN 08-30 15:18 → C.6T 08-31 14:51
PROVIDERS: ADMIT Internal Medicine; ATTEND Internal Medicine
PROC: 5A1D70Z Performance of Urinary Filtration, Intermittent, Less than 6 Hours Per Day (ICD-10-PCS; 2018-08-30)
PROC: 5A1D70Z Performance of Urinary Filtration, Intermittent, Less than 6 Hours Per Day (ICD-10-PCS; 2018-08-31)
PROC: 03180JD Bypass Left Brachial Artery to Upper Arm Vein with Synthetic Substitute, Open Approach (ICD-10-PCS; principal; 2018-08-31 14:15)
PROC: 5A1D70Z Performance of Urinary Filtration, Intermittent, Less than 6 Hours Per Day (ICD-10-PCS; 2018-09-01)
DX: T82.41XA Breakdown (mechanical) of vascular dialysis catheter, initial encounter (principal); N17.9 Acute kidney failure, unspecified; I12.0 Hypertensive chronic kidney disease with stage 5 chronic kidney disease or end stage renal disease; E11.649 Type 2 diabetes mellitus with hypoglycemia without coma; F33.2 Major depressive disorder, recurrent severe without psychotic features; N18.6 End stage renal disease; E11.22 Type 2 diabetes mellitus with diabetic chronic kidney disease; E11.43 Type 2 diabetes mellitus with diabetic autonomic (poly)neuropathy; F41.1 Generalized anxiety disorder; F60.9 Personality disorder, unspecified; F44.5 Conversion disorder with seizures or convulsions; I15.9 Secondary hypertension, unspecified; Z91.19 Patient's noncompliance with other medical treatment and regimen; Z96.41 Presence of insulin pump (external) (internal); Z99.2 Dependence on renal dialysis; Z87.891 Personal history of nicotine dependence; D63.1 Anemia in chronic kidney disease; K31.84 Gastroparesis

== ENCOUNTER 2018-09-02 15:40 | Observation (INO) | payer MEDICAID ==
[2018-09-02 15:41] VITALS: BMI 23.3
[2018-09-02 16:52] LABS: BASO # 0.1 K/uL (0.0-0.2); BASO % 0.5 % (0.0-2.0); EOS # 0.1 K/uL (0.0-0.7); EOS % 0.9 % (0.0-4.0); HEMOGLOBIN 10.9 g/dL (11.0-16.0); LYMPH # 1.5 K/uL (1.0-4.3); LYMPH % 12.4 % (20.0-40.0); MEAN CELL VOLUME 81.2 fL (81.0-99.0); MEAN CORPUSCULAR HEMOGLOBIN 26.4 pg (27.0-31.0); MEAN CORPUSCULAR HGB CONC 32.5 g/dL (33.0-37.0); MEAN PLATELET VOLUME 8.6 fL (7.2-11.7); MONO # 0.4 K/uL (0.0-0.8); MONO % 3.6 % (0.0-10.0); NEUT % 82.6 % (50.0-75.0); NRBC % 0.1 % (0.0-2.0); RBC 4.12 Mil/uL (3.80-5.20); RED CELL DISTRIBUTION WIDTH 19.6 % (11.5-14.5); WHITE BLOOD COUNT 12.2 K/uL (4.8-10.8)
--- NOTE | 2018-09-02 16:54 | C.PDOC ---
History Of Present Illness 28 year old female with a history of diabetes and kidney failure (new to hemodialysis, due tomorrow) presents to the emergency department with complaints of persistent vomiting since eating breakfast this morning. Patient also reports associated epigastric pain, and that she has been unable to take her blood pressure medications due to these symptoms. <Peg Graham - Last Filed: 09/02/18 19:08> <Ryan Ramirez - Last Filed: 09/02/18 17:45> History Per: Patient History/Exam Limitations: no limitations Onset/Duration Of Symptoms: Hrs Current Symptoms Are (Timing): Still Present Context: Food Location Of Pain/Discomfort: Epigastric Quality Of Discomfort: "Pain" Associated Symptoms: Vomiting. denies: Fever, Chills, Nausea <Peg Graham - Last Filed: 09/02/18 19:08> Time Seen by Provider: 09/02/18 15:50 Chief Complaint (Nursing): GI Problem Past Medical History Vital Signs: Last Vital Signs Temp 97.9 F 09/02/18 15:47 Pulse 126 H 09/02/18 17:33 Resp 24 09/02/18 17:33 BP 177/110 H 09/02/18 17:33 Pulse Ox 98 09/02/18 17:38 - [facility] Procedures (08/30/18) (02/23/18) BYPASS L BRACH ART TO UP ARM VEIN W SYNTH SUB, OPEN (08/30/18) BYPASS LEFT BRACHIAL ARTERY TO UPPER ARM VEIN, OPEN APPROACH (04/28/18) EXCISION OF STOMACH, ENDO, DIAGN (11/02/16) EXCISION OF STOMACH, PYLORUS, ENDO, DIAGN (03/10/17) FLUOROSCOPY OF RIGHT SUBCLAVIAN VEIN, GUIDANCE (01/16/18) GROUP PSYCHOTHERAPY (06/09/17) INDIVIDUAL PSYCHOTHERAPY, SUPPORTIVE (06/09/17) INSERT INFUSION DEV IN L EXT JUGULAR VEIN, PERC (05/29/18) INSERTION OF INFUSION DEV INTO L FEMOR VEIN, PERC APPROACH (02/23/18) INSERTION OF INFUSION DEV INTO L SUBCLAV VEIN, PERC APPROACH (10/28/16) INSERTION OF INFUSION DEV INTO R SUBCLAV VEIN, PERC APPROACH (01/16/18) INSERTION OF INFUSION DEV INTO SUP VENA CAVA, PERC APPROACH (11/23/17) INSERTION OF INFUSION DEVICE INTO UPPER VEIN, PERC APPROACH (08/20/18) INTRODUCTION OF NUTRITIONAL INTO PERIPH VEIN, PERC APPROACH (10/16/16) MEDICATION MANAGEMENT (06/09/17) ULTRASONOGRAPHY OF SUPERIOR VENA CAVA, GUIDANCE (10/16/16) <Ryan Ramirez - Last Filed: 09/02/18 17:45> Reviewed: Historical Data, Nursing Documentation, Vital Signs Vital Signs: Last Vital Signs Temp 97.9 F 09/02/18 15:47 Pulse 112 H 09/02/18 15:47 Resp 20 09/02/18 15:47 BP 212/130 H 09/02/18 15:47 Pulse Ox 98 09/02/18 15:47 Primary Care Provider: Reza King Jr. - Medical History PMH: Anemia, Anxiety, Bronchitis, Depression, Diabetes, HTN, End Stage Renal Disease (with dialysis catheter), Chronic Kidney Disease, Seizures (Pseudo seizures?) Denies: Deep Vein Thrombosis, HIV Surgical History: Appendectomy, Endoscopy Denies: Pacemaker - [facility] Procedures (08/30/18) (02/23/18) BYPASS L BRACH ART TO UP ARM VEIN W SYNTH SUB, OPEN (08/30/18) BYPASS LEFT BRACHIAL ARTERY TO UPPER ARM VEIN, OPEN APPROACH (04/28/18) EXCISION OF STOMACH, ENDO, DIAGN (11/02/16) EXCISION OF STOMACH, PYLORUS, ENDO, DIAGN (03/10/17) FLUOROSCOPY OF RIGHT SUBCLAVIAN VEIN, GUIDANCE (01/16/18) GROUP PSYCHOTHERAPY (06/09/17) INDIVIDUAL PSYCHOTHERAPY, SUPPORTIVE (06/09/17) INSERT INFUSION DEV IN L EXT JUGULAR VEIN, PERC (05/29/18) INSERTION OF INFUSION DEV INTO L FEMOR VEIN, PERC APPROACH (02/23/18) INSERTION OF INFUSION DEV INTO L SUBCLAV VEIN, PERC APPROACH (10/28/16) INSERTION OF INFUSION DEV INTO R SUBCLAV VEIN, PERC APPROACH (01/16/18) INSERTION OF INFUSION DEV INTO SUP VENA CAVA, PERC APPROACH (11/23/17) INSERTION OF INFUSION DEVICE INTO UPPER VEIN, PERC APPROACH (08/20/18) INTRODUCTION OF NUTRITIONAL INTO PERIPH VEIN, PERC APPROACH (10/16/16) MEDICATION MANAGEMENT (06/09/17) ULTRASONOGRAPHY OF SUPERIOR VENA CAVA, GUIDANCE (10/16/16) Family History: States: Unknown Family Hx - Social History Hx Tobacco Use: No Hx Alcohol Use: No Hx Substance Use: No - Immunization History Hx Tetanus Toxoid Vaccination: No Hx Influenza Vaccination: Yes Hx Pneumococcal Vaccination: Yes <Peg Graham - Last Filed: 09/02/18 19:08> Review Of Systems Respiratory: Negative for: Cough, Shortness of Breath Gastrointestinal: Positive for: Vomiting, Abdominal Pain. Negative for: Nausea, Diarrhea <Peg Graham - Last Filed: 09/02/18 19:08> Physical Exam - Physical Exam Appears: Non-toxic, In Acute Distress, Other (persistently vomiting) Skin: Normal Color, Warm, Dry Head: Atraumatic, Normacephalic Eye(s): bilateral: Normal Inspection, PERRL, EOMI Nose: Normal Oral Mucosa: Moist Neck: Normal, Supple Chest: Symmetrical, No Tenderness, Other (access port present in right upper chest wall) Cardiovascular: Rhythm Regular, No Murmur, Other (tachycardic) Respiratory: Normal Breath Sounds, No Rales, No Rhonchi, No Wheezing Gastrointestinal/Abdominal: Bowel Sounds, Soft, Tenderness (epigastric) Extremity: Other (bandages present on left arm from hemodialysis access port) Pulses: Left Radial: Normal, Right Radial: Normal Neurological/Psych: Oriented x3, Normal Speech, Normal Cognition <Peg Graham - Last Filed: 09/02/18 19:08> ED Course And Treatment - Laboratory Results Result Diagrams: 09/02/18 16:43 09/02/18 16:43 Lab Results: Total Bilirubin 0.3 mg/dL (0.2-1.3) 09/02/18 16:43 AST 18 U/L (14-36) 09/02/18 16:43 ALT 21 U/L (9-52) 09/02/18 16:43 Alkaline Phosphatase 125 U/L (38-126) 09/02/18 16:43 Total Protein 7.0 g/dL (6.3-8.3) 09/02/18 16:43 Albumin 3.9 g/dL (3.5-5.0) 09/02/18 16:43 Globulin 3.0 gm/dL (2.2-3.9) 09/02/18 16:43 Albumin/Globulin Ratio 1.3 (1.0-2.1) 09/02/18 16:43 Lipase 32 U/L (23-300) 09/02/18 16:43 <Ryan Ramirez - Last Filed: 09/02/18 17:45> - Laboratory Results Result Diagrams: 09/02/18 16:43 09/02/18 16:43 O2 Sat by Pulse Oximetry: 98 (RA) Pulse Ox Interpretation: Normal <Peg Graham - Last Filed: 09/02/18 19:08> Medical Decision Making Medical Decision Making: Plan: Chemistry Hematology Protonix 40mg IVP Reglan 10mg IVPB Zodran 4mg IVP HCG Qualitative Urine Urinalysis Multiple attempts to start IV were made by both me and nurses. Spoke to Dr. King, who is refusing medical admission at this time. Requesting a crisis consult for drug-seeking behavior. 1829 discussed with Yareli, who spoke to Dr Mckeon; sts no need for psychiatric consult, knows pt well and as she has no si or hi at thie time, not a danger. pt is resting comfortably at this time after zofran, reglan, protonix, labetalol, viscous lidocaine and maalox. [address] King, will admit to him, resident paged. med resident aware <Peg Graham - Last Filed: 09/02/18 19:08> Disposition <Ryan Ramirez - Last Filed: 09/02/18 17:45> Discussed With Dr.: Reza King Jr. Doctor Will See Patient In The: Hospital - Disposition Disposition Time: 18:48 <Peg Graham - Last Filed: 09/02/18 19:08> - Disposition Disposition: HOSPITALIZED Condition: SERIOUS Forms: [facility] ([place]) - Clinical Impression Clinical Impression: Hypertensive CKD, ESRD on dialysis, Intractable vomiting - PA / [employer] / Resident Statement MD/DO has reviewed & agrees with the documentation as recorded. - Scribe Statement The provider has reviewed the documentation as recorded by the Scribe (Migue Patel) All medical record entries made by the Scribe were at my direction and p ersonally dictated by me. I have reviewed the chart and agree that the record accurately reflects my personal performance of the history, physical exam, medical decision making, and the department course for this patient. I have also personally directed, reviewed, and agree with the discharge instructions and disposition. <Peg Graham - Last Filed: 09/02/18 19:08> Addendum Addendum: 09/02/18 17:48 Right EJ line placement performed by Dr. Ramirez. Patient was placed in the horizontal position. 18 g needle used. Line placed successfully. <Ryan Ramirez - Last Filed: 09/02/18 17:45>
[2018-09-02 17:03] LABS: ALB/GLOB RATIO 1.3 (1.0-2.1); ALBUMIN 3.9 g/dL (3.5-5.0); CALCIUM 9.5 mg/dl (8.6-10.4)
[2018-09-02] MEDS ORDERED: Labetalol 25mg/5ml Syringe IVP STA (17:35)
[2018-09-02] MEDS ORDERED: Labetalol 5mg/ml (4ml) ONE (18:00)
[2018-09-02] MEDS ORDERED: Aluminum Hydroxide/Magnesium Hydroxide Susp (30 mL) PO STA (18:03)
[2018-09-02] MEDS ORDERED: Aluminum Hydroxide/Magnesium Hydroxide Susp (30 mL) ONE (18:13)
[2018-09-02] MEDS ORDERED: Dextrose 50% SYRINGE Inj (50 ml) IV PRN (18:43)
[2018-09-02] MEDS ORDERED: Glucagon Recombinant 1 mg Inj IM PRN (18:43)
[2018-09-02] MEDS ORDERED: Labetalol 25mg/5ml Syringe IVP PRN (18:53)
--- NOTE | 2018-09-02 21:22 | CP.PCM.HP ---
History of Present Illness - History of Present Illness History of Present Illness: cc: vomiting/abdominal pain Patient is a 28 year old female with pmhx of diabetic gastroparesis 2/2 poorly controlled IDDM, ESRD(HD MFW), and seizure d/o(possible pseudo-seizures), who presents to the ED accompanied by her mother, with complaints of intractable vomiting and abdominal pain that began this morning. Patient has many admissions for same complaints, w/ last discharge of 09/01/18. Patient reports she last received HD yesterday, and has been compliant with medications and diet since discharge. Currently patient reports inability to tolerate PO, abdominal pain and LUE AVF site pain. Reports last BM 2 days ago, small in quantity and hard. Still producing urine daily. PMD: Christine pmhx: gastroparesis 2/2 poorly controlled IDDM, ESRD(HD MFW), and seizure d/o(possible pseudo-seizures) pshx: appendectomy, LUE AVF w/ AV shunt creation(08/31/18) meds: see MAR allergies: NKDA sochx: former smoker, denies alcohol use, known addiction to ativan while inpatient famhx: heart disease Present on Admission - Present on Admission Any Indicators Present on Admission: No Review of Systems - Constitutional Constitutional: absent: Chills, Fever - EENT Eyes: absent: Blurred Vision, Change in Vision - Cardiovascular Cardiovascular: absent: Chest Pain, Irregular Heart Rhythm, Syncope - Respiratory Respiratory: absent: Cough, Dyspnea - Gastrointestinal Gastrointestinal: Abdominal Pain, Constipation, Nausea, Vomiting. absent: Diarrhea, Hematemesis, Hematochezia - Genitourinary Genitourinary: absent: Difficulty Urinating, Dysuria - Neurological Neurological: absent: Dizziness, Syncope Past Patient History - Infectious Disease Hx of Infectious Diseases: None - Past Medical History & Family History Past Medical History?: Yes - Past Social History Smoking Status: Never Smoked - CARDIAC Hx Hypertension: Yes Hx Pacemaker: No - PULMONARY Hx Bronchitis: Yes - NEUROLOGICAL Hx Seizures: Yes (Pseudo seizures?) - HEENT Hx HEENT Problems: Yes Hx Cataracts: Yes - RENAL Hx Chronic Kidney Disease: Yes - ENDOCRINE/METABOLIC Hx Endocrine Disorders: Yes Hx Diabetes Mellitus Type 2: Yes (on insulin pump) - HEMATOLOGICAL/ONCOLOGICAL Hx Anemia: Yes Hx Human Immunodeficiency Virus (HIV): No - INTEGUMENTARY Hx Dermatological Problems: No - MUSCULOSKELETAL/RHEUMATOLOGICAL Hx Musculoskeletal Disorders: Yes Hx Falls: Yes - GASTROINTESTINAL Hx Gastrointestinal Disorders: Yes (SEE COMMENT) Other/Comment: gastroparesis - GENITOURINARY/GYNECOLOGICAL Hx Genitourinary Disorders: No - PSYCHIATRIC Hx Anxiety: Yes Hx Depression: Yes Hx Substance Use: No - SURGICAL HISTORY Hx Appendectomy: Yes - ANESTHESIA Hx Anesthesia: Yes Hx Anesthesia Reactions: No Hx Malignant Hyperthermia: No Meds Allergies/Adverse Reactions: Allergies Allergy/AdvReac Type Severity Reaction Status Date / Time No Known Allergies Allergy Verified 09/02/18 15:52 Physical Exam - Constitutional Appears: Non-toxic, No Acute Distress - Head Exam Head Exam: ATRAUMATIC, NORMAL INSPECTION, NORMOCEPHALIC - Eye Exam Eye Exam: EOMI, Normal appearance Pupil Exam: NORMAL ACCOMODATION, PERRL - Neck Exam Neck exam: Negative for: Normal Inspection Additional comments: right EJ - Respiratory Exam Respiratory Exam: Clear to Auscultation Bilateral, NORMAL BREATHING PATTERN Additional comments: right chest dialysis cath - Cardiovascular Exam Cardiovascular Exam: Tachycardia, REGULAR RHYTHM, +S1, +S2 - GI/Abdominal Exam GI & Abdominal Exam: Normal Bowel Sounds, Soft, Tenderness (epigastric). absent: Distended, Rigid - Extremities Exam Extremities exam: Positive for: normal inspection. Negative for: calf tenderness, pedal edema - Back Exam Back exam: NORMAL INSPECTION - Neurological Exam Neurological exam: Alert, Oriented x3 - Psychiatric Exam Psychiatric exam: Anxious - Skin Skin Exam: Dry, Intact, Normal Color, Warm Results - Vital Signs Recent Vital Signs: Last Vital Signs Temp 98.1 F 09/02/18 20:00 Pulse 79 09/02/18 20:47 Resp 20 09/02/18 20:00 BP 172/100 H 09/02/18 20:47 Pulse Ox 96 09/02/18 20:00 - Labs Result Diagrams: 09/02/18 16:43 09/02/18 16:43 Labs: Laboratory Results - last 24 hr 09/02/18 09/02/18 09/02/18 15:55 16:43 16:43 WBC 12.2 H D RBC 4.12 Hgb 10.9 L Hct 33.4 L MCV 81.2 D MCH 26.4 L MCHC 32.5 L RDW 19.6 H Plt Count 291 MPV 8.6 Neut % (Auto) 82.6 H Lymph % (Auto) 12.4 L Schleicher % (Auto) 3.6 Eos % (Auto) 0.9 Baso % (Auto) 0.5 Neut # (Auto) 10.0 H Lymph # (Auto) 1.5 Schleicher # (Auto) 0.4 Eos # (Auto) 0.1 Baso # (Auto) 0.1 Sodium 134 Potassium 3.8 Chloride 99 Carbon Dioxide 24 Anion Gap 15 BUN 25 H Creatinine 3.8 H Est GFR ( Amer) 17 Est GFR (Non-Af Amer) 14 POC Glucose (mg/dL) 83 Random Glucose 103 Calcium 9.5 Total Bilirubin 0.3 AST 18 ALT 21 Alkaline Phosphatase 125 Total Protein 7.0 Albumin 3.9 Globulin 3.0 Albumin/Globulin Ratio 1.3 Lipase 32 Assessment & Plan (1) Intractable vomiting Assessment and Plan: -likely 2/2 gastroparesis -NPO -ADAT -reglan q6 prn -docusate/senna BID -tylenol 650 [place] PRN pain Status: Acute (2) ESRD (end stage renal disease) on dialysis Assessment and Plan: -continue HD MWF -nephro consult, Dr. Nieves Status: Chronic (3) IDDM (insulin dependent diabetes mellitus) Assessment and Plan: -hold home meds -ISS -accuchecks -hypoglycemia protocol -start diabetic diet once tolerating PO Status: Chronic (4) Hypertension Assessment and Plan: -resume home meds, norvasc, coreg, hydralazine, cozaar -start clonidine 0.2mg TD -labetalol 10mg ivp q4 prn -resume HD MWF Status: Chronic (5) Anxiety Assessment and Plan: -atarax q6 prn -seroguel 50mg TID -seroquel 100mg HS -lexapro 20mg po qd -klonopin 0.5mg po TID prn Status: Chronic (6) Benzodiazepine abuse Assessment and Plan: -crisis evaluated for drug seeking behavior but denied -avoid benzodiazepines -no pain medications per Dr. King Status: Chronic (7) Prophylactic measure Assessment and Plan: GI: protonix 40mg ivp qd VTE: heparin 5000 q12 Status: Acute - Assessment and Plan (Free Text) Assessment: Discussed w/ Dr. King -Lauren Pinzon, PGY-1
[2018-09-02] MEDS: Docusate-Senna 50 mg-8.6 mg Tab PO SCH (21:33)
[2018-09-02] MEDS: (Novolin R) Insulin Human Regular 100 units/ml vial SC SCH (21:36)
--- NOTE | 2018-09-03 06:14 | PCM.FALL ---
Post Fall Progress Note - Post Fall Fall Date: 09/03/18 Fall Time: 05:45 Description of Fall: Patient was attempting to get out of bed to ambulate to bathroom and dropped to floor. Her mother was with her and helped steady her to the ground. Upon arrival patient was seated on ground with mom holding her head. Patient was brought back to bed with the help of security. Patient then started asking for ativan. When told there was no indication for it she became very upset, crying and begging, "please Dr. Pinzon, just 1 time, I promise I won't ask for it again". A second code star was called shortly thereafter. Patient got out of bed when her mother was returning from restroom and fell to ground. Once again mother reports she braced her fall. Upon arrival patient was found on the ground with mom holding her head. While waiting for security to assist in transfer, patient began shaking with jerking movements to body, however she maintained corneal reflex and withdrew to painful stimulus. After transfer to bed, she once again began with jerking body movements. No post-ictal state, no tongue biting. Patient quickly reported she needed to urinate. Patient once again advised she would not be given other pain medication or anxiety medication through the IV as requested. - Post Fall Exam Vital Sign: Temp Pulse Resp BP Pulse Ox 97.8 F 119 H 20 199/104 H 96 09/03/18 00:00 09/03/18 00:00 09/02/18 20:00 09/03/18 00:00 09/03/18 00:00 Skull Exam: Negative for: Scalp wound, Scalp hematoma, Scalp depression, Ridge in skull Eye Exam: Positive for: Pupils equal, Pupils reactive Ear Exam: Negative for: Discharge Skin Exam: Negative for: Lacerations, Grazes, Bruising Mouth Exam: Negative for: Tongue bitten Chest Exam: Negative for: Difficulty breathing Impression/Plan: Patient is stable to remain in current setting -fall precautions -seizure precautions -1:1 sitter
[2018-09-03] MEDS: (Novolin R) Insulin Human Regular 100 units/ml vial SC SCH ×4 (06:30→23:55)
--- NOTE | 2018-09-03 07:34 | CP.PCM.PN ---
Subjective - Date & Time of Evaluation Date of Evaluation: 09/03/18 Time of Evaluation: 07:32 - Subjective Subjective: Progress note for Dr. King. Patient seen and examined at bedside. Patient crying and screaming "I need something for my anxiety." Screaming can be heard from down the [place] with patient's door closed. Patient is banging and scratching at the stretcher, attempting to get out of bed, pulling at her gown and lines. As per 1:1, patient has tried to throw herself off her bed multiple times today. Unable to assess ROS as patient is uncooperative. Objective - Vital Signs/Intake and Output Vital Signs (last 24 hours): Temp Pulse Resp BP Pulse Ox 97.8 F 119 H 20 199/104 H 96 09/03/18 00:00 09/03/18 00:00 09/02/18 20:00 09/03/18 00:00 09/03/18 00:00 - Medications Medications: Current Medications Acetaminophen (Tylenol 650 Mg Supp) 650 mg [place] Q6 PRN PRN Reason: Pain, severe (8-10) Amlodipine Besylate (Norvasc) 5 mg PO DAILY [facility] Carvedilol (Coreg) 6.25 mg PO BID [facility] Clonazepam (Klonopin) 0.5 mg PO TID PRN PRN Reason: Anxiety Last Admin: 09/03/18 07:06 Dose: 0.5 mg Clonidine HCl (Catapres-Tts2 0.2 Mg/24 Hr) 1 patch TD Q7D@1000 KELVIN Last Admin: 09/02/18 20:43 Dose: 1 patch Dextrose (Dextrose 50% Inj) 0 ml IV STAT PRN; Protocol PRN Reason: Hypoglycemia Protocol Dextrose (Glutose 15) 0 gm PO ONCE PRN; Protocol PRN Reason: Hypoglycemia Protocol Escitalopram Oxalate (Lexapro) 20 mg PO DAILY [facility] Glucagon (Glucagen Diagnostic Kit) 0 mg IM STAT PRN; Protocol PRN Reason: Hypoglycemia Protocol Heparin Sodium (Porcine) (Heparin) 5,000 units SC Q12 [facility] Last Admin: 09/02/18 21:23 Dose: Not Given Hydralazine HCl (Apresoline) 25 mg PO TID [facility] Hydroxyzine HCl (Atarax) 25 mg PO Q6 [facility] Last Admin: 09/03/18 06:13 Dose: Not Given Dextrose (Dextrose 5% In Water 1000 Ml) 1,000 mls @ 0 mls/hr IV .Q0M PRN; Protocol PRN Reason: Hypoglycemia Protocol Insulin Human Regular (Novolin R) 0 unit SC ACHS [facility]; Protocol Last Admin: 09/03/18 06:30 Dose: 12 units Labetalol HCl (Trandate) 10 mg IVP Q4H PRN PRN Reason: SBP>180 Losartan Potassium (Cozaar) 25 mg PO DAILY [facility] Metoclopramide HCl (Reglan) 10 mg IVP Q6 PRN PRN Reason: Nausea/Vomiting Last Admin: 09/03/18 03:20 Dose: 10 mg Pantoprazole Sodium (Protonix Inj) 40 mg IVP DAILY [facility] Quetiapine Fumarate (Seroquel) 100 mg PO HS [facility] Last Admin: 09/02/18 23:08 Dose: 100 mg Quetiapine Fumarate (Seroquel) 50 mg PO TID [facility] Senna/Docusate Sodium (Senokot S 50 Mg-8.6 Mg) 1 tab PO BID [facility] Last Admin: 09/02/18 21:33 Dose: Not Given - Labs Labs: 09/02/18 16:43 09/02/18 16:43 - Constitutional Appears: Non-toxic, Other (hysterical) - Head Exam Head Exam: ATRAUMATIC, NORMOCEPHALIC - Eye Exam Eye Exam: EOMI, Normal appearance, PERRL - ENT Exam ENT Exam: Mucous Membranes Moist - Neck Exam Neck Exam: Full ROM, Normal Inspection - Respiratory Exam Respiratory Exam: Clear to Ausculation Bilateral, NORMAL BREATHING PATTERN. absent: Rhonchi, Wheezes, Respiratory Distress - Cardiovascular Exam Cardiovascular Exam: REGULAR RHYTHM, +S1, +S2 - GI/Abdominal Exam GI & Abdominal Exam: Soft, Normal Bowel Sounds. absent: Firm, Rigid, Rebound Additional comments: grimaces with light touch to abdomen diffusely - Extremities Exam Extremities Exam: Full ROM, Normal Capillary Refill, Normal Inspection. absent: Calf Tenderness - Neurological Exam Neurological Exam: Awake, CN II-XII Intact, Oriented x3 Neuro motor strength exam: Left Upper Extremity: 5, Right Upper Extremity: 5, L eft Lower Extremity: 5, Right Lower Extremity: 5 - Psychiatric Exam Psychiatric exam: Agitated, Anxious Additional comments: hysterical, crying, screaming, banging her hands against the stretcher - Skin Skin Exam: Dry, Normal Color, Warm Additional comments: R chest permacath, dressing to L arm C/D/I Assessment and Plan - Assessment and Plan (Free Text) Plan: (1) Intractable vomiting Assessment and Plan: -questionable gastroparesis -NPO -ADAT -reglan q6 prn -zofran 4mg Q6H PRN -docusate/senna BID -tylenol 650 VT PRN pain Status: Acute (2) ESRD (end stage renal disease) on dialysis Assessment and Plan: -continue HD MWF -nephro consult, Dr. Nieves NS@75mls/hr Status: Chronic (3) IDDM (insulin dependent diabetes mellitus) Assessment and Plan: -hold home meds -ISS -accuchecks -hypoglycemia protocol -start diabetic diet once tolerating PO Status: Chronic (4) Hypertension Assessment and Plan: -resume home meds, norvasc, coreg, hydralazine, cozaar -start clonidine 0.2mg TD -labetalol 10mg ivp q4 prn -resume HD MWF Status: Chronic (5) Anxiety/Depression/Conversion disorder/Factitious disorder/Borderline personality disorder Assessment and Plan: -Psych consulted, Dr. Mckeon. -atarax 25 q6 prn -seroguel 100mg BID -seroquel 100mg HS -lexapro 20mg po qd -klonopin 0.5mg po TID prn -Depakote 250mg PO BID -Haldol 5mg IM Q6H PRN agitation -Haldol 5mg IM x1 on 09/03/18 -ativan 1mg IVP Q6H as per Dr. King Status: Chronic (6) Drug seeking behavior Assessment and Plan: -crisis evaluated for drug seeking behavior but denied -no pain medications per Dr. King Status: Chronic (7) Prophylactic measure Assessment and Plan: GI: protonix 40mg ivp qd VTE: heparin 5000 q12 Status: Acute Case discussed and all management as per Dr. King. Dionne Stewart, PGY-1
[2018-09-03] MEDS ORDERED: Losartan 12.5 MG TAB PO SCH (10:00)
--- NOTE | 2018-09-03 10:03 | CP.PCM.CON ---
History of Present Illness - History of Present Illness History of Present Illness: PGY-[address] Nieves CC: ESRD on HD Ms Larry, 28F with PMHx diabetic gastroparesis 2/2 IDDM and brittle diabetes, ESRD on HD MWF, and seizure complicated with pseudo-seizures, c/o intractable vomiting and abdominal pain x 1 day. She was discharged from hospital for the same complaints 1 day prior on 09/01/18. Pt had HD on Thursday prior to hospital discharge. Currently patient reports inability to tolerate PO, abdominal pain and LUE AVF site pain. Per last discharge instruction from nephro, maintaining flow to her new AV graft is the mustafa. BP med were adjusted: Losartan 25 QD, Coreg 6.25 BID, amlodipine 5 qd, hydralazine decrease to 25 tid, and clonidine patch 0.1 qwk. Last BM 2 days ago, small in quantity and hard. Still producing urine daily. Below is the clonazepam PO, ativan IV, and dilaudid IV she received during the last 3 days from prior discharge: 08/30 11:30 Lorazepam 0.5 5pm clonazepam 0.5 10pm Lorazepam 1 08/31 5AM Lorazepam 1 9:30 clonazepam 0.5 12 noon Lorazepam 1 (OR: Got Fentynl, dilaudid) 7pm Lorazepam 1 11pm: dilaudid 0.5 IV 09/01 3AM: dilaudid o.5 IV 6am: Lorazepam 1mg 10:30 Clonazepam 0.5 1pm Dilaudid 0.5 IV (S/P hd, THEN HOME) In the ED on 09/02, her bp was 212/130. She had 2 falls this AM while ambulating to the bathroom, witnessed by her mom. After 1st code star, pt asks for ativan, which was not given and explained for not appropriate meds. For 2nd code star, patient began shaking with jerking movements to body, however she maintained corneal reflex and withdrew to painful stimulus. No post-ictal state, no tongue biting. She asked for ativan again, not given and rationale explained. She receive klonopin PO at 7am ROS: Denies F/C, CP, SOB (+) abd pain/n/v. Denies dysuria PMD: Dr King pmhx: HTN gastroparesis 2/2 poorly controlled IDDM, Brittle diabetes ESRD(HD MFW) seizure d/o(possible pseudo-seizures) Benzodiazepine abuse MDD, anxiety disorder and factitious disorder along w/ pseudo-seizures, borderline personality, conversion d/o pshx: appendectomy, LUE AVF w/ AV graft (08/31/18), Perm-a-cath for temporary dialysis pending maturation of AV graft famhx: heart disease sochx: former smoker, denies alcohol use, known addiction to ativan while inpatient allergies: NKDA meds: see MAR Past Patient History - Infectious Disease Hx of Infectious Diseases: None - Past Medical History & Family History Past Medical History?: Yes - Past Social History Smoking Status: Never Smoked - CARDIAC Hx Hypertension: Yes Hx Pacemaker: No - PULMONARY Hx Bronchitis: Yes - NEUROLOGICAL Hx Seizures: Yes (Pseudo seizures?) - HEENT Hx HEENT Problems: Yes Hx Cataracts: Yes - RENAL Hx Chronic Kidney Disease: Yes - ENDOCRINE/METABOLIC Hx Endocrine Disorders: Yes Hx Diabetes Mellitus Type 2: Yes (on insulin pump) - HEMATOLOGICAL/ONCOLOGICAL Hx Anemia: Yes Hx Human Immunodeficiency Virus (HIV): No - INTEGUMENTARY Hx Dermatological Problems: No - MUSCULOSKELETAL/RHEUMATOLOGICAL Hx Musculoskeletal Disorders: Yes Hx Falls: Yes - GASTROINTESTINAL Hx Gastrointestinal Disorders: Yes (SEE COMMENT) Other/Comment: gastroparesis - GENITOURINARY/GYNECOLOGICAL Hx Genitourinary Disorders: No - PSYCHIATRIC Hx Anxiety: Yes Hx Depression: Yes Hx Substance Use: No - SURGICAL HISTORY Hx Appendectomy: Yes - ANESTHESIA Hx Anesthesia: Yes Hx Anesthesia Reactions: No Hx Malignant Hyperthermia: No Meds Allergies/Adverse Reactions: Allergies Allergy/AdvReac Type Severity Reaction Status Date / Time No Known Allergies Allergy Verified 09/02/18 15:52 - Medications Medications: Current Medications Acetaminophen (Tylenol 650 Mg Supp) 650 mg [place] Q6 PRN PRN Reason: Pain, severe (8-10) Amlodipine Besylate (Norvasc) 5 mg PO DAILY [facility] Carvedilol (Coreg) 6.25 mg PO BID [facility] Clonazepam (Klonopin) 0.5 mg PO TID PRN PRN Reason: Anxiety Last Admin: 09/03/18 07:06 Dose: 0.5 mg Clonidine HCl (Catapres-Tts2 0.2 Mg/24 Hr) 1 patch TD Q7D@1000 KELVIN Last Admin: 09/02/18 20:43 Dose: 1 patch Dextrose (Dextrose 50% Inj) 0 ml IV STAT PRN; Protocol PRN Reason: Hypoglycemia Protocol Dextrose (Glutose 15) 0 gm PO ONCE PRN; Protocol PRN Reason: Hypoglycemia Protocol Escitalopram Oxalate (Lexapro) 20 mg PO DAILY [facility] Glucagon (Glucagen Diagnostic Kit) 0 mg IM STAT PRN; Protocol PRN Reason: Hypoglycemia Protocol Haloperidol Lactate (Haldol) 5 mg IM Q6H PRN PRN Reason: severe agitation Heparin Sodium (Porcine) (Heparin) 5,000 units SC Q12 [facility] Last Admin: 09/02/18 21:23 Dose: Not Given Hydralazine HCl (Apresoline) 25 mg PO TID [facility] Hydroxyzine HCl (Atarax) 25 mg PO Q6 [facility] Last Admin: 09/03/18 06:13 Dose: Not Given Dextrose (Dextrose 5% In Water 1000 Ml) 1,000 mls @ 0 mls/hr IV .Q0M PRN; Protocol PRN Reason: Hypoglycemia Protocol Insulin Human Regular (Novolin R) 0 unit SC ACHS [facility]; Protocol Last Admin: 09/03/18 06:30 Dose: 12 units Labetalol HCl (Trandate) 10 mg IVP Q4H PRN PRN Reason: SBP>180 Losartan Potassium (Cozaar) 25 mg PO DAILY [facility] Metoclopramide HCl (Reglan) 10 mg IVP Q6 PRN PRN Reason: Nausea/Vomiting Last Admin: 09/03/18 03:20 Dose: 10 mg Pantoprazole Sodium (Protonix Inj) 40 mg IVP DAILY [facility] Quetiapine Fumarate (Seroquel) 100 mg PO HS [facility] Last Admin: 09/02/18 23:08 Dose: 100 mg Quetiapine Fumarate (Seroquel) 50 mg PO TID [facility] Senna/Docusate Sodium (Senokot S 50 Mg-8.6 Mg) 1 tab PO BID [facility] Last Admin: 09/02/18 21:33 Dose: Not Given Physical Exam - Constitutional Appears: No Acute Distress - Head Exam Head Exam: ATRAUMATIC, NORMAL INSPECTION, NORMOCEPHALIC - Eye Exam Eye Exam: EOMI, Normal appearance, PERRL. absent: Scleral icterus Pupil Exam: NORMAL ACCOMODATION - ENT Exam ENT Exam: Mucous Membranes Dry - Neck Exam Additional comments: EJ in place - Respiratory Exam Respiratory Exam: Clear to Auscultation Bilateral. absent: Rales, Rhonchi, Wheezes - Cardiovascular Exam Cardiovascular Exam: REGULAR RHYTHM, +S1, +S2 - GI/Abdominal Exam GI & Abdominal Exam: Hypoactive Bowel Sounds, Soft, Tenderness - Extremities Exam Extremities exam: Negative for: calf tenderness, pedal edema - Back Exam Back exam: absent: CVA tenderness (L), CVA tenderness (R), paraspinal tenderness - Neurological Exam Neurological exam: Alert, Oriented x3 - Psychiatric Exam Psychiatric exam: Normal Affect, Normal Mood - Skin Skin Exam: Dry, Warm Results - Vital Signs Recent Vital Signs: Last Vital Signs Temp 97.8 F 09/03/18 00:00 Pulse 112 H 09/03/18 07:53 Resp 20 09/02/18 20:00 BP 199/104 H 09/03/18 00:00 Pulse Ox 96 09/03/18 00:00 - Labs Result Diagrams: 09/02/18 16:43 09/02/18 16:43 Labs: Laboratory Results - last 24 hr 09/02/18 09/02/18 09/02/18 15:55 16:43 16:43 WBC 12.2 H D RBC 4.12 Hgb 10.9 L Hct 33.4 L MCV 81.2 D MCH 26.4 L MCHC 32.5 L RDW 19.6 H Plt Count 291 MPV 8.6 Neut % (Auto) 82.6 H Lymph % (Auto) 12.4 L Sibley % (Auto) 3.6 Eos % (Auto) 0.9 Baso % (Auto) 0.5 Neut # (Auto) 10.0 H Lymph # (Auto) 1.5 Sibley # (Auto) 0.4 Eos # (Auto) 0.1 Baso # (Auto) 0.1 Sodium 134 Potassium 3.8 Chloride 99 Carbon Dioxide 24 Anion Gap 15 BUN 25 H Creatinine 3.8 H Est GFR ( Amer) 17 Est GFR (Non-Af Amer) 14 POC Glucose (mg/dL) 83 Random Glucose 103 Calcium 9.5 Total Bilirubin 0.3 AST 18 ALT 21 Alkaline Phosphatase 125 Total Protein 7.0 Albumin 3.9 Globulin 3.0 Albumin/Globulin Ratio 1.3 Lipase 32 09/02/18 09/03/18 21:30 06:08 WBC RBC Hgb Hct MCV MCH MCHC RDW Plt Count MPV Neut % (Auto) Lymph % (Auto) Sibley % (Auto) Eos % (Auto) Baso % (Auto) Neut # (Auto) Lymph # (Auto) Sibley # (Auto) Eos # (Auto) Baso # (Auto) Sodium Potassium Chloride Carbon Dioxide Anion Gap BUN Creatinine Est GFR ( Amer) Est GFR (Non-Af Amer) POC Glucose (mg/dL) 345 H > 500 H* Random Glucose Calcium Total Bilirubin AST ALT Alkaline Phosphatase Total Protein Albumin Globulin Albumin/Globulin Ratio Lipase Assessment & Plan - Assessment and Plan (Free Text) Plan: Ms Kenneth Larry, 28 F w/ PMHx htn, IDDM on insulin pump (A1C 6.1) w/ diabetic nephropathy progressing to ESRD earlier this year, on HD ([facility], at [facility] under Dr Nieves outpatient service), multiple admissions with brittle diabetes, intractable vomiting, recently diagnosed MDD, anxiety disorder and factitious disorder along w/ pseudo-seizures, again presented after hypoglycemia at home, complaining of severe abd pain, nephrology being consulted for ESRD care. (1) Hypovolemia due to intractable N/v and decrease PO intake - 250 NS bolus, then NS@75 - continue to trend volume status, BP, and electrolytes - Given enalapril 2.5 x 1 to blunt kidney response to ANDREW activation - CXR tomorrow to assess fluid status (2) Hypertensive urgency likely due to [id number] vs emotional stress vs pain vs N/V. Unlikely due to benzo withdrawal Hypertension secondary to ESRD on dialysis - Losartan 25 daily, carveldilol 6.25 bid, amlodipine 5, hydralazine 25 tid, clonidine patch at 0.2 qwk, IV labelol prn - Minimally Tolerated PO meds (3) ESRD on hemodialysis, MWF, via permacath New AV fistula with decresaed flow, s/p AV graft POD #3 HD on Thursday Avoid hypoperfusion to maintain graft flow to prevent clotting. follow up outpatient for suture removal. pain control per primary and surgical team (4) Anemia in CKD (chronic kidney disease) Continue monitor; H/H. EPO on HD PRN (5) Secondary vs Tertiary Hyper parathyrodisiam - Ca and Phos nl - Discontinue phos binder (6) Vomiting Questionable self-induced in the setting of diabetic gastroparesis - Gastric emptying study____Cancelled as radiologist concerned patient will likely not tolerate 4 hour exam due to history and previous GI evaluation - Continue to monitor Volume status - 1:[address] for behavioral reason (7) Brittle diabetes - hypoglycemia due to npo-resolved - Managed per primary team s/r/d/w Dr Nieves
[2018-09-03] MEDS: Docusate-Senna 50 mg-8.6 mg Tab PO SCH ×2 (10:12→18:01)
--- NOTE | 2018-09-03 10:40 | PCM.PSYCH ---
Initial Psychiatric Evaluation - Initial Psychiatric Evaluation Type of Admission: Voluntary Legal Status: Capacity History of Present Illness and Precipitating Events: The pt is seen, chart reviewed and case discussed. Consult was requested for her psych sxs. She is well-known from many previous consults She was just discharged from hospital after, again, somewhat stabilizing her condition but she says she was fine for 1/2 day and then her "pain and nausea came back" and she came to ED. From previous admissions: She is a 28 y/o female, single, with no child, lives with her mother, unemployed as she lost her job at [employer] in July 2016. She reported some "hypoglycemia" induced seizures, which started 6 years ago. Since March 2016, however, she has had pseudo-seizures mostly. She was upset that people do not believe her. However, even this teletypewriter operator witnessed one of them in the past and she would feign a seizure and ask immediately for ativan in a second or two. EEG was "normal" She admitted in the past that she had been stressed b/c of a break up with her GF who later , and b/c of losing her job. She is now more worried and angry about her gastric "pain." She is depressed and is very anxious. 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 She eventually developed ESRD and is now on HD. Payroll Administrative Assistant spoke to her mo too. And her sister and [id number]. They don;t want her to be admitted frequently or given ativan, whcih she abuses She fulfills criteria for major depression and generalized anxiety, as well as borderline personality, conversion d/o. Currently she denies SI, but her functioning is at psychosis level almost - recycling door at the hospital every 1-3 days. She did voice SI in the past. No drug/alcohol hx No trauma hx except for the abovementioned losses. Past psych hx: She was never able to attend a senior care program b/c of multiple medical admissions. She had been depressed, anxious and having pseudoseizures a long time Family psych hx: Denies Med hx: ESRD, secondary HTN, cataracts and DM and alleged gastroparesis Current Medications: Active Medications Generic Name Dose Route Start Last Admin Trade Name Freq PRN Reason Stop Dose Admin Acetaminophen 650 mg 09/02/18 21:13 Tylenol 650 Mg Supp [place] Q6 PRN Pain, severe (8-10) Amlodipine Besylate 5 mg 09/03/18 10:00 09/03/18 10:12 Norvasc PO 5 mg DAILY KELVIN Administration Carvedilol 6.25 mg 09/03/18 10:00 09/03/18 10:12 Coreg PO 6.25 mg BID KELVIN Administration Clonazepam 0.5 mg 09/02/18 19:00 09/03/18 07:06 Klonopin PO 0.5 mg TID PRN Administration Anxiety Clonidine HCl 1 patch 09/02/18 19:45 09/02/18 20:43 Catapres-Tts2 0.2 Mg/24 Hr TD 1 patch Q7D@1000 KELVIN Administration Dextrose 0 ml 09/02/18 18:43 Dextrose 50% Inj IV STAT PRN Hypoglycemia Protocol Protocol Dextrose 0 gm 09/02/18 18:43 Glutose 15 PO ONCE PRN Hypoglycemia Protocol Protocol Escitalopram Oxalate 20 mg 09/03/18 10:00 09/03/18 10:14 Lexapro PO 20 mg DAILY KELVIN Administration Glucagon 0 mg 09/02/18 18:43 Glucagen Diagnostic Kit IM STAT PRN Hypoglycemia Protocol Protocol Haloperidol Lactate 5 mg 09/03/18 09:53 Haldol IM Q6H PRN severe agitation Heparin Sodium (Porcine) 5,000 units 09/02/18 22:00 09/02/18 21:23 Heparin SC Not Given Q12 KELVIN Hydralazine HCl 25 mg 09/03/18 10:00 09/03/18 10:12 Apresoline PO 25 mg TID KELVIN Administration Hydroxyzine HCl 25 mg 09/03/18 00:00 09/03/18 06:13 Atarax PO Not Given Q6 KELVIN Dextrose 1,000 mls @ 0 mls/hr 09/02/18 18:43 Dextrose 5% In Water 1000 Ml IV .Q0M PRN Hypoglycemia Protocol Protocol Per Protocol Insulin Human Regular 0 unit 09/02/18 22:00 09/03/18 06:30 Novolin R SC 12 units ACHS KELVIN Administration Protocol Labetalol HCl 10 mg 09/02/18 18:53 Trandate IVP Q4H PRN SBP>180 Losartan Potassium 25 mg 09/03/18 10:00 09/03/18 10:14 Cozaar PO 25 mg DAILY KELVIN Administration Metoclopramide HCl 10 mg 09/02/18 18:43 09/03/18 03:20 Reglan IVP 10 mg Q6 PRN Administration Nausea/Vomiting Pantoprazole Sodium 40 mg 09/03/18 10:00 09/03/18 10:11 Protonix Inj IVP 40 mg DAILY KELVIN Administration Quetiapine Fumarate 100 mg 09/02/18 22:00 09/02/18 23:08 Seroquel PO 100 mg HS KELVIN Administration Quetiapine Fumarate 50 mg 09/03/18 10:00 09/03/18 10:12 Seroquel PO 50 mg TID KELVIN Administration Senna/Docusate Sodium 1 tab 09/02/18 21:15 09/03/18 10:12 Senokot S 50 Mg-8.6 Mg PO 1 tab BID KELVIN Administration Past Psychiatric History - Past Psychiatric History Pertinent Medical Hx (Current Medical&Sleep Prob, Allergies): Allergies Allergy/AdvReac Type Severity Reaction Status Date / Time No Known Allergies Allergy Verified 09/02/18 15:52 Insulin Detemir [Levemir] 20 units SC DAILY #2 vial 08/07/18 Metoclopramide [Reglan] 1 tab PO QID #20 tab 08/07/18 Ondansetron HCl [Zofran] 1 tab PO Q6 PRN #20 tablet 08/07/18 Carvedilol [Coreg] 6.25 mg PO Q12 #60 tab 08/16/18 Insulin Aspart/Insulin Aspar [Novolog Mix 70/30 (70/30 units/ml)] 10 units SC HS #1 vial 08/16/18 Insulin Aspart/Insulin Aspar [Novolog Mix 70/30 (70/30 units/ml)] 20 units SC DAILY #1 vial 08/16/18 QUEtiapine [SEROquel] 50 mg PO TID tab 08/24/18 Escitalopram [Lexapro] 20 mg PO DAILY #30 tab 09/01/18 Insulin Detemir [Levemir] 10 unit SC HS #1 unit 09/01/18 Insulin Human Regular [Novolin R] 5 unit SC ACHS #1 unit 09/01/18 hydrOXYzine HCl [Atarax] 1 tab PO HS PRN #7 tab 09/01/18 Amlodipine Besylate 5 mg PO DAILY 09/02/18 Hydralazine HCl 50 mg PO TID 09/02/18 Losartan Potassium 25 mg PO DAILY 09/02/18 Pantoprazole [Protonix] 40 mg PO DAILY 09/02/18 QUEtiapine [SEROquel] 100 mg PO HS 09/02/18 Review of Systems - Psychiatric Psychiatric: Abnormal Sleep Pattern, Anhedonia, Anxiety, Depression, Difficulty Concentrating, Hopelessness, Irritability, Mood Swings. absent: Hallucinations, Homicidal Ideation, Suicidal Ideation Mental Status Examination - Personal Presentation Personal Presentation: Looks older than stated age (unkempt) - Affect Affect: Blunted - Motor Activity Motor Activity: Psychomotor Agitation - Reliability in Providing Information Reliability in Providing Information: Poor, due to altered mood - Speech Speech: Organized (loud, screaming, wailing) - Mood Mood: Depressed, Anxious, Other (irate) - Formal Thought Process Formal Thought Process: No Impairment - Cognitive Functions Orientation: Person, Place, Situation, Time Sensorium: Drowsy Attention/Concentration: Easily distracted Estimate of Intelligence: Average Judgement: Imparied, as evidence by: Poor judgement Memory: Recent intact, as evidence by: Ability to recall events of the day, Remote impaired as evidenced by: Inability to recall sig life events - Risk Risk: Diminished functioning - Strength & Assets Inventory Strength & Assets Inventory: Family support, Cooperative DSM 5 DX - DSM 5 DSM 5 Diagnosis: Major depressive d/o - recurrent, severe without psychosis Conversion d/o (pseudo-seizures) Factitious d/o Borderline personality disorder Generalized anxiety d/o - Recommended/Plan of Treatment Treatment Recommendations and Plan of Treatment: Lexapro for depression and anxiety Seroquel for mood swings, irritability - dose increased Add depakote low dose for mood stabilization PRN Atarax and inderal for anxiety Klonopin for anxiety. She is overusing ativan otherwise. Ativan can be d/c'ed, as she is fixated on ativan Limit setting, support, psychoeducation SW should contact again to [facility]'s CM program to help pt avoid revolver door recidivism. She is refusing psych admission. She may be screened by [facility] to check if she can be committed as she is jeopardizing self with this factitious-looking behavior and constant admissions. Her functioning is zero and she is very distressed. 33 min
[2018-09-03] MEDS ORDERED: Sodium Chloride 0.9% 250 ML IV ONE (12:18)
[2018-09-03] MEDS ORDERED: Enalaprilat 2.5 MG/2 ML IV ONE ×2 (13:18→15:00)
[2018-09-03] MEDS ORDERED: Sodium Chloride 0.9% 1,000 ML IV SCH (13:30)
[2018-09-03] MEDS ORDERED: Labetalol 5mg/ml (4ml) IVP PRN (16:30)
--- NOTE | 2018-09-03 17:05 | RAD ---
Date of service: 09/03/2018 HISTORY: admission COMPARISON: 08/28/2018 TECHNIQUE: 1 view obtained. FINDINGS: LUNGS: No active pulmonary disease. PLEURA: No significant pleural effusion identified, no pneumothorax apparent. CARDIOVASCULAR: No aortic atherosclerotic calcification present. Normal cardiac size. Tunneled central venous dialysis catheter. No congestive change. OSSEOUS STRUCTURES: No significant abnormalities. VISUALIZED UPPER ABDOMEN: Normal. OTHER FINDINGS: None. IMPRESSION: No active disease.
[2018-09-03] MEDS: Divalproex 250 mg DR Tab PO SCH (18:00)
--- NOTE | 2018-09-04 08:00 | CP.PCM.PN ---
Subjective - Date & Time of Evaluation Date of Evaluation: 09/04/18 Time of Evaluation: 10:39 - Subjective Subjective: Progress Note for Dr. King's service Patient seen and examined at bedside while receiving dialysis. Patient is sleeping and in no acute distress. No complaints as per nursing. Objective - Vital Signs/Intake and Output Vital Signs (last 24 hours): Temp Pulse Resp BP Pulse Ox 98.3 F 99 H 18 160/92 H 96 09/04/18 01:00 09/04/18 01:00 09/04/18 01:00 09/04/18 01:00 09/04/18 01:00 Intake and Output: 09/04/18 09/04/18 06:59 18:59 Intake Total 600 Balance 600 - Medications Medications: Current Medications Acetaminophen (Tylenol 650 Mg Supp) 650 mg MO Q6 PRN PRN Reason: Pain, severe (8-10) Amlodipine Besylate (Norvasc) 5 mg PO DAILY [facility] Last Admin: 09/03/18 10:12 Dose: 5 mg Carvedilol (Coreg) 6.25 mg PO BID [facility] Last Admin: 09/03/18 17:59 Dose: Not Given Clonazepam (Klonopin) 0.5 mg PO TID PRN PRN Reason: Anxiety Last Admin: 09/03/18 07:06 Dose: 0.5 mg Clonidine HCl (Catapres-Tts2 0.2 Mg/24 Hr) 1 patch TD Q7D@1000 [facility] Last Admin: 09/02/18 20:43 Dose: 1 patch Dextrose (Dextrose 50% Inj) 0 ml IV STAT PRN; Protocol PRN Reason: Hypoglycemia Protocol Dextrose (Glutose 15) 0 gm PO ONCE PRN; Protocol PRN Reason: Hypoglycemia Protocol Divalproex Sodium (Depakote Dr) 250 mg PO BID [facility] Last Admin: 09/03/18 18:00 Dose: Not Given Escitalopram Oxalate (Lexapro) 20 mg PO DAILY [facility] Last Admin: 09/03/18 10:14 Dose: 20 mg Glucagon (Glucagen Diagnostic Kit) 0 mg IM STAT PRN; Protocol PRN Reason: Hypoglycemia Protocol Haloperidol Lactate (Haldol) 5 mg IM Q6H PRN PRN Reason: severe agitation Heparin Sodium (Porcine) (Heparin) 5,000 units SC Q12 [facility] Last Admin: 09/02/18 21:23 Dose: Not Given Hydralazine HCl (Apresoline) 25 mg PO TID [facility] Last Admin: 09/03/18 17:59 Dose: Not Given Hydroxyzine HCl (Atarax) 25 mg PO Q6 [facility] Last Admin: 09/04/18 06:40 Dose: Not Given Dextrose (Dextrose 5% In Water 1000 Ml) 1,000 mls @ 0 mls/hr IV .Q0M PRN; Protocol PRN Reason: Hypoglycemia Protocol Insulin Human Regular (Novolin R) 0 unit SC [facility]; Protocol Last Admin: 09/03/18 23:55 Dose: 4 units Labetalol HCl (Trandate) 10 mg IVP Q4H PRN PRN Reason: SBP>180 Lorazepam (Ativan) 1 mg IVP Q6H PRN PRN Reason: Anxiety Last Admin: 09/04/18 02:25 Dose: 1 mg Losartan Potassium (Cozaar) 25 mg PO DAILY [facility] Metoclopramide HCl (Reglan) 10 mg IVP Q6 PRN PRN Reason: Nausea/Vomiting Last Admin: 09/03/18 03:20 Dose: 10 mg Ondansetron HCl (Zofran Inj) 4 mg IVP Q6H [facility] Last Admin: 09/04/18 02:25 Dose: 4 mg Pantoprazole Sodium (Protonix Inj) 40 mg IVP DAILY [facility] Last Admin: 09/03/18 10:11 Dose: 40 mg Quetiapine Fumarate (Seroquel) 100 mg PO HS [facility] Last Admin: 09/03/18 22:53 Dose: Not Given Quetiapine Fumarate (Seroquel) 100 mg PO BID [facility] Last Admin: 09/03/18 18:00 Dose: Not Given Senna/Docusate Sodium (Senokot S 50 Mg-8.6 Mg) 1 tab PO BID [facility] Last Admin: 09/03/18 18:01 Dose: Not Given - Labs Labs: 09/02/18 16:43 09/02/18 16:43 - Constitutional Appears: Non-toxic, No Acute Distress - Head Exam Head Exam: ATRAUMATIC, NORMOCEPHALIC - Eye Exam Eye Exam: EOMI, PERRL - ENT Exam ENT Exam: Mucous Membranes Moist - Neck Exam Neck Exam: Full ROM - Respiratory Exam Respiratory Exam: NORMAL BREATHING PATTERN. absent: Rales, Rhonchi, Wheezes, Respiratory Distress, Stridor - Cardiovascular Exam Cardiovascular Exam: REGULAR RHYTHM, +S1, +S2. absent: Gallop, Rubs, Murmur Additional comments: Right chest permacath - GI/Abdominal Exam GI & Abdominal Exam: Soft, Normal Bowel Sounds. absent: Distended, Firm, Guarding, Rigid, Tenderness - Neurological Exam Neurological Exam: Alert, Awake, Oriented x3 - Skin Additional comments: Left arm AV graft intact Assessment and Plan - Assessment and Plan (Free Text) Plan: Intractable vomiting -questionable gastroparesis -Full liquid diet currently -reglan 10mg q6 prn -zofran 4mg Q6H PRN -docusate/senna BID -tylenol 650 MO PRN pain Status: improving ESRD (end stage renal disease) on dialysis -continue HD MWF -patient received dialysis earlier today -nephro consult, Dr. Nieves - Paricalcitol 2mcg MWF - Procrit MWF Status: Chronic IDDM (insulin dependent diabetes mellitus) -hold home meds -ISS -accuchecks -hypoglycemia protocol -start diabetic diet once tolerating PO Status: Chronic Hypertension -resume home meds, norvasc, coreg, hydralazine, cozaar -start clonidine 0.2mg TD -labetalol 10mg ivp q4 prn -resume HD MWF Status: Chronic Anxiety/Depression/Conversion disorder/Factitious disorder/Borderline personality disorder -Psych consulted, Dr. Mckeon. -atarax 25 q6 prn -seroguel 100mg BID -seroquel 100mg HS -lexapro 20mg po qd -klonopin 0.5mg po TID prn -Depakote 250mg PO BID -Haldol 5mg IM Q6H PRN agitation -Haldol 5mg IM x1 on 09/03/18 -ativan 1mg IVP Q6H as per Dr. King Status: Chronic Drug seeking behavior -crisis evaluated for drug seeking behavior but denied -no pain medications per Dr. King Status: Chronic Prophylactic measure GI: protonix 40mg ivp qd VTE: heparin 5000 q12 Status: Acute Case discussed and all management as per Dr. King. Ruddy Larkin, PGY1
--- NOTE | 2018-09-04 08:22 | RAD ---
HISTORY: fluid status accessment COMPARISON: Chest x-ray performed 09/03/18 TECHNIQUE: Chest, one view. FINDINGS: Right IJ approach dialysis catheter extends to the cavoatrial junction/right atrium. LUNGS: Mild venous congestion. No focal consolidation. Please note that chest x-ray has limited sensitivity for the detection of pulmonary masses. PLEURA: No significant pleural effusion identified. No definite pneumothorax . CARDIOVASCULAR: The cardiomediastinal silhouette appears within normal limits of size. No significant atherosclerotic calcification present. OSSEOUS STRUCTURES: No acute osseous abnormality identified. VISUALIZED UPPER ABDOMEN: Unremarkable. OTHER FINDINGS: None. IMPRESSION: Right IJ approach dialysis catheter extends to the cavoatrial junction/right atrium. Hypoinflation. Mild venous congestion. No focal consolidation.
[2018-09-04] MEDS: (Novolin R) Insulin Human Regular 100 units/ml vial SC SCH ×4 (08:37→21:56)
[2018-09-04 09:20] LABS: HCG,QUALITATIVE URINE NEGATIVE (NEGATIVE)
[2018-09-04 09:32] LABS: SQUAMOUS EPITHIAL 1 /hpf (0-5); URINE BILIRUBIN NEGATIVE (NEGATIVE); URINE BLOOD NEGATIVE (NEGATIVE); URINE CLARITY Clear (Clear); URINE COLOR Yellow (YELLOW); URINE GLUCOSE (UA) 3+ mg/dL (Normal); URINE LEUKOCYTE ESTERASE NEG Leu/uL (Negative); URINE PROTEIN 3+ mg/dL (NEGATIVE); URINE UROBILINOGEN NORMAL mg/dL (0.2-1.0)
[2018-09-04 09:38] LABS: BARBITURATES, UR NEGATIVE (NEGATIVE); BENZODIAZEPINES, UR NEGATIVE (NEGATIVE); OPIATES, UR NEGATIVE (NEGATIVE); PHENCYCLIDINE, UR NEGATIVE (NEGATIVE)
[2018-09-04 09:55] LABS: SQUAMOUS EPITHIAL 1 /hpf (0-5); URINE BILIRUBIN NEGATIVE (NEGATIVE); URINE BLOOD NEGATIVE (NEGATIVE); URINE CLARITY Clear (Clear); URINE COLOR Straw (YELLOW); URINE GLUCOSE (UA) 3+ mg/dL (Normal); URINE HYALINE CAST 0-2 /lpf (0-2); URINE LEUKOCYTE ESTERASE NEG Leu/uL (Negative); URINE PROTEIN 3+ mg/dL (NEGATIVE); URINE UROBILINOGEN NORMAL mg/dL (0.2-1.0)
[2018-09-04 10:06] LABS: BASO # 0.1 K/uL (0.0-0.2); BASO % 0.7 % (0.0-2.0); EOS # 0.1 K/uL (0.0-0.7); EOS % 1.7 % (0.0-4.0); LYMPH # 1.3 K/uL (1.0-4.3); LYMPH % 16.4 % (20.0-40.0); MEAN CELL VOLUME 81.6 fL (81.0-99.0); MEAN CORPUSCULAR HEMOGLOBIN 27.1 pg (27.0-31.0); MEAN CORPUSCULAR HGB CONC 33.2 g/dL (33.0-37.0); MEAN PLATELET VOLUME 8.8 fL (7.2-11.7); MONO # 0.4 K/uL (0.0-0.8); MONO % 5.6 % (0.0-10.0); NEUT # 6.1 K/uL (1.8-7.0); NEUT % 75.6 % (50.0-75.0); RBC 3.22 Mil/uL (3.80-5.20); RED CELL DISTRIBUTION WIDTH 20.3 % (11.5-14.5); WHITE BLOOD COUNT 8.1 K/uL (4.8-10.8)
[2018-09-04 10:11] LABS: HEMOGLOBIN 8.7 g/dL (11.0-16.0)
[2018-09-04 10:35] LABS: ALB/GLOB RATIO 1.2 (1.0-2.1); ALBUMIN 3.1 g/dL (3.5-5.0); CALCIUM 8.5 mg/dl (8.6-10.4)
[2018-09-04] MEDS: Docusate-Senna 50 mg-8.6 mg Tab PO SCH ×3 (11:02→18:49)
[2018-09-04] MEDS: Divalproex 250 mg DR Tab PO SCH ×2 (11:06→18:49)
--- NOTE | 2018-09-04 15:24 | CP.PCM.PN ---
Subjective - Date & Time of Evaluation Date of Evaluation: 09/04/18 Time of Evaluation: 14:30 - Subjective Subjective: Patient reports no nausea, no vomiting since yesterday morning; tolerating PO meds with small amount of liquid; no shortness of breath; some pain associated with new AVG; Objective - Vital Signs/Intake and Output Vital Signs (last 24 hours): Temp Pulse Resp BP Pulse Ox 98.0 F 98 H 20 168/104 H 95 09/04/18 08:55 09/04/18 08:55 09/04/18 08:55 09/04/18 12:35 09/04/18 08:00 Intake and Output: 09/04/18 09/04/18 06:59 18:59 Intake Total 600 Balance 600 - Medications Medications: Current Medications Acetaminophen (Tylenol 650 Mg Supp) 650 mg IN Q6 PRN PRN Reason: Pain, severe (8-10) Amlodipine Besylate (Norvasc) 5 mg PO DAILY [facility] Last Admin: 09/04/18 14:58 Dose: 5 mg Carvedilol (Coreg) 6.25 mg PO BID [facility] Last Admin: 09/04/18 11:02 Dose: Not Given Clonazepam (Klonopin) 0.5 mg PO TID PRN PRN Reason: Anxiety Last Admin: 09/03/18 07:06 Dose: 0.5 mg Clonidine HCl (Catapres-Tts2 0.2 Mg/24 Hr) 1 patch TD Q7D@1000 [facility] Last Admin: 09/02/18 20:43 Dose: 1 patch Dextrose (Dextrose 50% Inj) 0 ml IV STAT PRN; Protocol PRN Reason: Hypoglycemia Protocol Dextrose (Glutose 15) 0 gm PO ONCE PRN; Protocol PRN Reason: Hypoglycemia Protocol Divalproex Sodium (Depakote Dr) 250 mg PO BID [facility] Last Admin: 09/04/18 11:06 Dose: Not Given Escitalopram Oxalate (Lexapro) 20 mg PO DAILY [facility] Last Admin: 09/04/18 13:18 Dose: 20 mg Glucagon (Glucagen Diagnostic Kit) 0 mg IM STAT PRN; Protocol PRN Reason: Hypoglycemia Protocol Haloperidol Lactate (Haldol) 5 mg IM Q6H PRN PRN Reason: severe agitation Heparin Sodium (Porcine) (Heparin) 5,000 units SC Q12 [facility] Last Admin: 05/16/19 21:23 Dose: Not Given Hydralazine HCl (Apresoline) 25 mg PO TID [facility] Last Admin: 09/04/18 13:16 Dose: 25 mg Hydroxyzine HCl (Atarax) 25 mg PO Q6 [facility] Last Admin: 09/04/18 13:18 Dose: 25 mg Dextrose (Dextrose 5% In Water 1000 Ml) 1,000 mls @ 0 mls/hr IV .Q0M PRN; Protocol PRN Reason: Hypoglycemia Protocol Insulin Human Regular (Novolin R) 0 unit SC ACHS [facility]; Protocol Last Admin: 09/04/18 13:02 Dose: Not Given Labetalol HCl (Trandate) 10 mg IVP Q4H PRN PRN Reason: SBP>180 Lorazepam (Ativan) 1 mg IVP Q6H PRN PRN Reason: Anxiety Last Admin: 09/04/18 14:53 Dose: 1 mg Losartan Potassium (Cozaar) 25 mg PO DAILY [facility] Last Admin: 09/04/18 14:56 Dose: 25 mg Metoclopramide HCl (Reglan) 10 mg IVP Q6 PRN PRN Reason: Nausea/Vomiting Last Admin: 09/03/18 03:20 Dose: 10 mg Ondansetron HCl (Zofran Inj) 4 mg IVP Q6H [facility] Last Admin: 09/04/18 13:16 Dose: 4 mg Pantoprazole Sodium (Protonix Inj) 40 mg IVP DAILY [facility] Last Admin: 09/04/18 13:15 Dose: 40 mg Quetiapine Fumarate (Seroquel) 100 mg PO HS [facility] Last Admin: 09/03/18 22:53 Dose: Not Given Quetiapine Fumarate (Seroquel) 100 mg PO BID [facility] Last Admin: 09/04/18 13:17 Dose: 100 mg Senna/Docusate Sodium (Senokot S 50 Mg-8.6 Mg) 1 tab PO BID [facility] Last Admin: 09/04/18 13:15 Dose: Not Given - Labs Labs: 09/04/18 09:59 09/04/18 09:59 - Constitutional Appears: Non-toxic, No Acute Distress - Head Exam Additional comments: appears pale - Eye Exam Eye Exam: Normal appearance. absent: Scleral icterus - Respiratory Exam Respiratory Exam: Clear to Ausculation Bilateral. absent: Respiratory Distress - Cardiovascular Exam Cardiovascular Exam: RRR, +S1, +S2 - GI/Abdominal Exam GI & Abdominal Exam: Soft. absent: Distended, Tenderness - Extremities Exam Additional comments: no leg edema; L forearm AVG w/ good bruit; - Neurological Exam Neurological Exam: Alert, Awake - Psychiatric Exam Psychiatric exam: Normal Affect, Normal Mood. absent: Agitated - Skin Skin Exam: Warm. absent: Cyanosis Assessment and Plan (1) ESRD on hemodialysis Assessment & Plan: Stable volume and electrolytes status; dialyzing today per routine with only 500 cc UF goal as patient has been NPO and previously vomiting; Status: Chronic (2) Hypertensive CKD, ESRD on dialysis Assessment & Plan: BP elevated but better controlled; continue current meds; nursing staff instructed to give all daily meds after HD today; Status: Acute (3) Anemia in CKD (chronic kidney disease) Assessment & Plan: Unmasked after being given IVF; restarting EPO 6,000 u qMWF; checking iron studies; Status: Chronic (4) Chronic kidney disease-mineral and bone disorder Assessment & Plan: Phos relatively low in the setting of decreased overall PO intake; giving zemplar (IV form of calcitriol) on HD; Status: Chronic
[2018-09-04] MEDS ORDERED: (Lantus) Insulin Glargine, Recombinant SC ONE (21:58)
[2018-09-05] MEDS: (Novolin R) Insulin Human Regular 100 units/ml vial SC SCH ×4 (07:21→21:43)
--- NOTE | 2018-09-05 07:51 | CP.PCM.PN ---
Subjective - Date & Time of Evaluation Date of Evaluation: 09/05/18 Time of Evaluation: 07:51 - Subjective Subjective: Progress note for Dr. King. Patient seen and examined at bedside. States she is tolerating her liquid diet. Occasionally gets aching upper abdominal pain. Rich nausea, vomiting, fever, chills, chest pain and shortness of breath. Objective - Vital Signs/Intake and Output Vital Signs (last 24 hours): Temp Pulse Resp BP Pulse Ox 97.8 F 80 20 125/78 95 09/04/18 23:00 09/04/18 23:00 09/04/18 23:00 09/04/18 23:00 09/04/18 23:00 Intake and Output: 09/05/18 09/05/18 06:59 18:59 Intake Total 120 Balance 120 - Medications Medications: Current Medications Acetaminophen (Tylenol 650 Mg Supp) 650 mg ID Q6 PRN PRN Reason: Pain, severe (8-10) Amlodipine Besylate (Norvasc) 5 mg PO DAILY [facility] Last Admin: 09/04/18 14:58 Dose: 5 mg Carvedilol (Coreg) 6.25 mg PO BID [facility] Last Admin: 09/04/18 17:05 Dose: Not Given Clonazepam (Klonopin) 0.5 mg PO TID PRN PRN Reason: Anxiety Last Admin: 09/03/18 07:06 Dose: 0.5 mg Clonidine HCl (Catapres-Tts2 0.2 Mg/24 Hr) 1 patch TD Q7D@1000 [facility] Last Admin: 09/02/18 20:43 Dose: 1 patch Dextrose (Dextrose 50% Inj) 0 ml IV STAT PRN; Protocol PRN Reason: Hypoglycemia Protocol Last Admin: 09/04/18 16:54 Dose: 25 ml Dextrose (Glutose 15) 0 gm PO ONCE PRN; Protocol PRN Reason: Hypoglycemia Protocol Divalproex Sodium (Depakote Dr) 250 mg PO BID [facility] Last Admin: 09/04/18 18:49 Dose: 250 mg Epoetin Mk (Procrit) 6,000 unit IV MWF [facility] Escitalopram Oxalate (Lexapro) 20 mg PO DAILY [facility] Last Admin: 09/04/18 13:18 Dose: 20 mg Glucagon (Glucagen Diagnostic Kit) 0 mg IM STAT PRN; Protocol PRN Reason: Hypoglycemia Protocol Haloperidol Lactate (Haldol) 5 mg IM Q6H PRN PRN Reason: severe agitation Heparin Sodium (Porcine) (Heparin) 5,000 units SC Q12 [facility] Last Admin: 09/02/18 21:23 Dose: Not Given Hydralazine HCl (Apresoline) 25 mg PO TID [facility] Last Admin: 09/04/18 18:49 Dose: 25 mg Hydroxyzine HCl (Atarax) 25 mg PO Q6 [facility] Last Admin: 09/05/18 06:39 Dose: Not Given Dextrose (Dextrose 5% In Water 1000 Ml) 1,000 mls @ 0 mls/hr IV .Q0M PRN; Protocol PRN Reason: Hypoglycemia Protocol Insulin Human Regular (Novolin R) 0 unit SC ACHS [facility]; Protocol Last Admin: 09/05/18 07:21 Dose: Not Given Labetalol HCl (Trandate) 10 mg IVP Q4H PRN PRN Reason: SBP>180 Lorazepam (Ativan) 1 mg IVP Q6H PRN PRN Reason: Anxiety Last Admin: 09/04/18 21:56 Dose: 1 mg Losartan Potassium (Cozaar) 25 mg PO DAILY [facility] Last Admin: 09/04/18 14:56 Dose: 25 mg Metoclopramide HCl (Reglan) 10 mg IVP Q6 PRN PRN Reason: Nausea/Vomiting Last Admin: 09/03/18 03:20 Dose: 10 mg Ondansetron HCl (Zofran Inj) 4 mg IVP Q6H [facility] Last Admin: 09/05/18 02:16 Dose: Not Given Pantoprazole Sodium (Protonix Inj) 40 mg IVP DAILY [facility] Last Admin: 09/04/18 13:15 Dose: 40 mg Paricalcitol (Zemplar) 2 mcg IV MWF [facility] Quetiapine Fumarate (Seroquel) 100 mg PO HS [facility] Last Admin: 09/04/18 20:58 Dose: 100 mg Quetiapine Fumarate (Seroquel) 100 mg PO BID [facility] Last Admin: 09/04/18 18:55 Dose: 100 mg Senna/Docusate Sodium (Senokot S 50 Mg-8.6 Mg) 1 tab PO BID [facility] Last Admin: 09/04/18 18:49 Dose: 1 tab - Labs Labs: 09/04/18 09:59 09/04/18 09:59 - Constitutional Appears: Non-toxic, No Acute Distress - Head Exam Head Exam: ATRAUMATIC, NORMOCEPHALIC - Eye Exam Eye Exam: EOMI, Normal appearance, PERRL - ENT Exam ENT Exam: Mucous Membranes Moist - Neck Exam Neck Exam: Full ROM - Respiratory Exam Respiratory Exam: Clear to Ausculation Bilateral, NORMAL BREATHING PATTERN. ab sent: Rales, Rhonchi, Wheezes - Cardiovascular Exam Cardiovascular Exam: REGULAR RHYTHM, +S1, +S2 Additional comments: R chest permacath - GI/Abdominal Exam GI & Abdominal Exam: Soft, Tenderness (epgastrium), Normal Bowel Sounds. absent: Distended, Firm, Guarding, Rigid, Mass, Rebound - Extremities Exam Extremities Exam: Full ROM, Normal Capillary Refill. absent: Pedal Edema, Tenderness Additional comments: L arm AV shunt dressing clean and dry - Neurological Exam Neurological Exam: Alert, Awake, Oriented x3 Neuro motor strength exam: Left Upper Extremity: 5, Right Upper Extremity: 5, Left Lower Extremity: 5, Right Lower Extremity: 5 - Psychiatric Exam Additional comments: calm - Skin Skin Exam: Dry, Normal Color, Warm Assessment and Plan - Assessment and Plan (Free Text) Plan: 28 year old female with DM, ESRD on HD MWF, chronic abdominal pain, nausea, vomiting, anxiety, depression and conversion disorder presents with intractable nausea and vomiting. Intractable vomiting -questionable gastroparesis -Advanced to CCD/HHD -reglan 10mg q6 prn -zofran 4mg Q6H PRN -docusate/senna BID -tylenol 650 ID PRN pain Status: improving ESRD (end stage renal disease) on dialysis -continue HD MWF -patient received dialysis earlier today -nephro consult, Dr. Nieves - Paricalcitol 2mcg MWF - Procrit MWF Status: Chronic IDDM (insulin dependent diabetes mellitus) -hold home meds -ISS ACHS -Levemir 10u SC HS -Regular insulin 3u TIDAC -accuchecks ACHS -hypoglycemia protocol Status: Chronic Hypertension -resume home meds, norvasc, coreg, hydralazine, cozaar -start clonidine 0.2mg TD -labetalol 10mg ivp q4 prn -resume HD MWF Status: Chronic Anxiety/Depression/Conversion disorder/Factitious disorder/Borderline personality disorder -Psych consulted, Dr. Mckeon. -atarax 25 q6 prn -seroguel 100mg BID -seroquel 100mg HS -lexapro 20mg po qd -klonopin 0.5mg po TID prn -Depakote 250mg PO BID -Haldol 5mg IM Q6H PRN agitation -Haldol 5mg IM x1 on 09/03/18 -ativan 1mg IVP Q6H as per Dr. King Status: Chronic Drug seeking behavior -crisis evaluated for drug seeking behavior but denied -no pain medications per Dr. King Status: Chronic Prophylactic measure GI: protonix 40mg ivp qd VTE: heparin 5000 q12 Status: Acute Dispo: Possible d/c tomorrow if tolerates diet Case discussed with Dr. King. Dionne Stewart, PGY-1
[2018-09-05] MEDS: Docusate-Senna 50 mg-8.6 mg Tab PO SCH ×2 (09:20→17:48)
[2018-09-05] MEDS: Divalproex 250 mg DR Tab PO SCH ×2 (09:21→17:48)
[2018-09-05] MEDS ORDERED: Insulin Detemir 100 units/ml Vial (Levemir) SC SCH (22:00)
--- NOTE | 2018-09-05 23:23 | CP.PCM.PN ---
Subjective - Date & Time of Evaluation Date of Evaluation: 09/05/18 Time of Evaluation: 12:00 - Subjective Subjective: Patient reports feeling better; no dyspnea; urinating well; tolerating diet, no nausea/vomiting; pain of AVG surgical site bearable; Objective - Vital Signs/Intake and Output Vital Signs (last 24 hours): Temp Pulse Resp BP Pulse Ox 97.9 F 72 20 129/84 95 09/05/18 15:00 09/05/18 17:51 09/05/18 15:00 09/05/18 17:51 09/05/18 15:00 - Medications Medications: Current Medications Acetaminophen (Tylenol 650 Mg Supp) 650 mg [place] Q6 PRN PRN Reason: Pain, severe (8-10) Amlodipine Besylate (Norvasc) 5 mg PO DAILY [facility] Last Admin: 09/05/18 09:20 Dose: 5 mg Carvedilol (Coreg) 6.25 mg PO BID [facility] Last Admin: 09/05/18 17:48 Dose: 6.25 mg Clonazepam (Klonopin) 0.5 mg PO TID PRN PRN Reason: Anxiety Last Admin: 09/03/18 07:06 Dose: 0.5 mg Clonidine HCl (Catapres-Tts2 0.2 Mg/24 Hr) 1 patch TD Q7D@1000 [facility] Last Admin: 09/02/18 20:43 Dose: 1 patch Dextrose (Dextrose 50% Inj) 0 ml IV STAT PRN; Protocol PRN Reason: Hypoglycemia Protocol Last Admin: 09/04/18 16:54 Dose: 25 ml Dextrose (Glutose 15) 0 gm PO ONCE PRN; Protocol PRN Reason: Hypoglycemia Protocol Divalproex Sodium (Depakote Dr) 250 mg PO BID [facility] Last Admin: 09/05/18 17:48 Dose: 250 mg Epoetin Mk (Procrit) 6,000 unit IV MWF [facility] Escitalopram Oxalate (Lexapro) 20 mg PO DAILY [facility] Last Admin: 09/05/18 12:10 Dose: 20 mg Glucagon (Glucagen Diagnostic Kit) 0 mg IM STAT PRN; Protocol PRN Reason: Hypoglycemia Protocol Haloperidol Lactate (Haldol) 5 mg IM Q6H PRN PRN Reason: severe agitation Heparin Sodium (Porcine) (Heparin) 5,000 units SC Q12 [facility] Last Admin: 09/05/18 22:03 Dose: 5,000 units Hydralazine HCl (Apresoline) 25 mg PO TID [facility] Last Admin: 09/05/18 17:48 Dose: 25 mg Hydroxyzine HCl (Atarax) 25 mg PO Q6 [facility] Last Admin: 09/05/18 17:48 Dose: 25 mg Dextrose (Dextrose 5% In Water 1000 Ml) 1,000 mls @ 0 mls/hr IV .Q0M PRN; Protocol PRN Reason: Hypoglycemia Protocol Insulin Detemir (Levemir) 10 unit SC [facility] Last Admin: 09/05/18 22:03 Dose: 10 unit Insulin Human Regular (Novolin R) 0 unit SC ACHS [facility]; Protocol Last Admin: 09/05/18 21:43 Dose: Not Given Insulin Human Regular (Novolin R) 3 unit SC TIDAC [facility] Labetalol HCl (Trandate) 10 mg IVP Q4H PRN PRN Reason: SBP>180 Lorazepam (Ativan) 1 mg IVP Q6H PRN PRN Reason: Anxiety Last Admin: 09/05/18 22:08 Dose: 1 mg Losartan Potassium (Cozaar) 25 mg PO DAILY [facility] Last Admin: 09/05/18 09:20 Dose: 25 mg Metoclopramide HCl (Reglan) 10 mg IVP Q6 PRN PRN Reason: Nausea/Vomiting Last Admin: 09/03/18 03:20 Dose: 10 mg Ondansetron HCl (Zofran Inj) 4 mg IVP Q6H [facility] Last Admin: 09/05/18 20:15 Dose: Not Given Pantoprazole Sodium (Protonix Inj) 40 mg IVP DAILY [facility] Last Admin: 09/05/18 09:21 Dose: 40 mg Paricalcitol (Zemplar) 2 mcg IV MWF [facility] Quetiapine Fumarate (Seroquel) 100 mg PO HS [facility] Last Admin: 09/05/18 22:03 Dose: 100 mg Quetiapine Fumarate (Seroquel) 100 mg PO BID [facility] Last Admin: 09/05/18 17:48 Dose: 100 mg Senna/Docusate Sodium (Senokot S 50 Mg-8.6 Mg) 1 tab PO BID [facility] Last Admin: 09/05/18 17:48 Dose: 1 tab - Labs Labs: 09/04/18 09:59 09/04/18 09:59 - Constitutional Appears: Non-toxic, No Acute Distress - Eye Exam Eye Exam: Normal appearance. absent: Scleral icterus - Respiratory Exam Respiratory Exam: Clear to Ausculation Bilateral. absent: Respiratory Distress - Cardiovascular Exam Cardiovascular Exam: RRR, +S1, +S2 - GI/Abdominal Exam GI & Abdominal Exam: Soft. absent: Distended, Tenderness - Extremities Exam Additional comments: no leg edema; good bruit of AVG; - Neurological Exam Neurological Exam: Alert, Awake - Psychiatric Exam Psychiatric exam: Normal Affect, Normal Mood. absent: Agitated - Skin Skin Exam: Warm. absent: Cyanosis Assessment and Plan (1) ESRD on hemodialysis Assessment & Plan: Stable volume and electrolyte status; plan for HD tomorrow per routine to put patient back on MWF schedule (unless some other test is being planned by primary team tomorrow); Status: Chronic (2) Hypertensive CKD, ESRD on dialysis Assessment & Plan: BP well controlled, continue current meds; Status: Chronic (3) Anemia in CKD (chronic kidney disease) Assessment & Plan: Hgb dropping below goal; restarting EPO; Status: Chronic (4) Chronic kidney disease-mineral and bone disorder Assessment & Plan: Secondary hyperparathyroidism of CKD, giving zemplar on HD; monitor phos; Status: Chronic
--- NOTE | 2018-09-06 07:33 | CP.PCM.PN ---
Subjective - Date & Time of Evaluation Date of Evaluation: 09/06/18 Time of Evaluation: 07:24 - Subjective Subjective: Progress note for Dr. King. Patient seen and examined at bedside. Complains of pain to L arm stating "I think it was from when I was banging my arm". Objective - Vital Signs/Intake and Output Vital Signs (last 24 hours): Temp Pulse Resp BP Pulse Ox 97.8 F 72 20 119/78 96 09/06/18 00:00 09/06/18 00:00 09/06/18 00:00 09/06/18 00:00 09/06/18 00:00 Intake and Output: 09/06/18 09/06/18 06:59 18:59 Intake Total 150 Output Total 0 Balance 150 - Medications Medications: Current Medications Acetaminophen (Tylenol 650 Mg Supp) 650 mg MN Q6 PRN PRN Reason: Pain, severe (8-10) Amlodipine Besylate (Norvasc) 5 mg PO DAILY [facility] Last Admin: 09/05/18 09:20 Dose: 5 mg Carvedilol (Coreg) 6.25 mg PO BID [facility] Last Admin: 09/05/18 17:48 Dose: 6.25 mg Clonazepam (Klonopin) 0.5 mg PO TID PRN PRN Reason: Anxiety Last Admin: 09/03/18 07:06 Dose: 0.5 mg Clonidine HCl (Catapres-Tts2 0.2 Mg/24 Hr) 1 patch TD Q7D@1000 [facility] Last Admin: 09/02/18 20:43 Dose: 1 patch Dextrose (Dextrose 50% Inj) 0 ml IV STAT PRN; Protocol PRN Reason: Hypoglycemia Protocol Last Admin: 09/04/18 16:54 Dose: 25 ml Dextrose (Glutose 15) 0 gm PO ONCE PRN; Protocol PRN Reason: Hypoglycemia Protocol Divalproex Sodium (Depakote Dr) 250 mg PO BID [facility] Last Admin: 09/05/18 17:48 Dose: 250 mg Epoetin Mk (Procrit) 6,000 unit IV MWF [facility] Escitalopram Oxalate (Lexapro) 20 mg PO DAILY [facility] Last Admin: 09/05/18 12:10 Dose: 20 mg Glucagon (Glucagen Diagnostic Kit) 0 mg IM STAT PRN; Protocol PRN Reason: Hypoglycemia Protocol Haloperidol Lactate (Haldol) 5 mg IM Q6H PRN PRN Reason: severe agitation Heparin Sodium (Porcine) (Heparin) 5,000 units SC Q12 [facility] Last Admin: 09/05/18 22:03 Dose: 5,000 units Hydralazine HCl (Apresoline) 25 mg PO TID [facility] Last Admin: 09/05/18 17:48 Dose: 25 mg Hydroxyzine HCl (Atarax) 25 mg PO Q6 [facility] Last Admin: 09/06/18 06:03 Dose: Not Given Dextrose (Dextrose 5% In Water 1000 Ml) 1,000 mls @ 0 mls/hr IV .Q0M PRN; Protocol PRN Reason: Hypoglycemia Protocol Insulin Detemir (Levemir) 10 unit SC [facility] Last Admin: 09/05/18 22:03 Dose: 10 unit Insulin Human Regular (Novolin R) 0 unit SC ACHS [facility]; Protocol Last Admin: 09/05/18 21:43 Dose: Not Given Insulin Human Regular (Novolin R) 3 unit SC TIDAC [facility] Labetalol HCl (Trandate) 10 mg IVP Q4H PRN PRN Reason: SBP>180 Lorazepam (Ativan) 1 mg IVP Q6H PRN PRN Reason: Anxiety Last Admin: 09/05/18 22:08 Dose: 1 mg Losartan Potassium (Cozaar) 25 mg PO DAILY [facility] Last Admin: 09/05/18 09:20 Dose: 25 mg Metoclopramide HCl (Reglan) 10 mg IVP Q6 PRN PRN Reason: Nausea/Vomiting Last Admin: 09/03/18 03:20 Dose: 10 mg Ondansetron HCl (Zofran Inj) 4 mg IVP Q6H [facility] Last Admin: 09/06/18 02:15 Dose: Not Given Pantoprazole Sodium (Protonix Inj) 40 mg IVP DAILY [facility] Last Admin: 09/05/18 09:21 Dose: 40 mg Paricalcitol (Zemplar) 2 mcg IV MWF [facility] Quetiapine Fumarate (Seroquel) 100 mg PO HS [facility] Last Admin: 09/05/18 22:03 Dose: 100 mg Quetiapine Fumarate (Seroquel) 100 mg PO BID [facility] Last Admin: 09/05/18 17:48 Dose: 100 mg Senna/Docusate Sodium (Senokot S 50 Mg-8.6 Mg) 1 tab PO BID [facility] Last Admin: 09/05/18 17:48 Dose: 1 tab - Labs Labs: 09/04/18 09:59 09/04/18 09:59 - Additional Findings Additional findings: - Constitutional Appears: Non-toxic, No Acute Distress - Head Exam Head Exam: ATRAUMATIC, NORMOCEPHALIC - Eye Exam Eye Exam: EOMI, Normal appearance, PERRL - ENT Exam ENT Exam: Mucous Membranes Moist - Neck Exam Neck Exam: Full ROM - Respiratory Exam Respiratory Exam: Clear to Ausculation Bilateral, NORMAL BREATHING PATTERN. absent: Rales, Rhonchi, Wheezes - Cardiovascular Exam Cardiovascular Exam: REGULAR RHYTHM, +S1, +S2 Additional comments: R chest permacath - GI/Abdominal Exam GI & Abdominal Exam: Soft, Normal Bowel Sounds. absent: Tenderness, Distended, Firm, Guarding, Rigid, Mass, Rebound - Extremities Exam Extremities Exam: + mild pitting edema L hand, Full ROM, Normal Capillary Refill. absent: Pedal Edema, Tenderness Additional comments: L arm AV graft dressing clean and dry - Neurological Exam Neurological Exam: Alert, Awake, Oriented x3 Neuro motor strength exam: Left Upper Extremity: 5, Right Upper Extremity: 5, Left Lower Extremity: 5, Right Lower Extremity: 5 - Psychiatric Exam Additional comments: calm - Skin Skin Exam: Dry, Normal Color, Warm Assessment and Plan - Assessment and Plan (Free Text) Plan: 28 year old female with DM, ESRD on HD MWF, chronic abdominal pain, nausea, vomiting, anxiety, depression and conversion disorder presents with intractable nausea and vomiting. Intractable vomiting -questionable gastroparesis -Advanced to CCD/HHD -reglan 10mg q6 prn -zofran 4mg Q6H PRN -docusate/senna BID -tylenol 650 MN PRN pain Status: improving ESRD (end stage renal disease) on dialysis -continue HD MWF -patient received dialysis earlier today -nephro consult, Dr. Nieves - Paricalcitol 2mcg MWF - Procrit MWF Status: Chronic IDDM (insulin dependent diabetes mellitus) -hold home meds -ISS ACHS -Levemir 10u SC HS -Regular insulin 3u TIDAC -accuchecks ACHS -hypoglycemia protocol Status: Chronic Hypertension -resume home meds, norvasc, coreg, hydralazine, cozaar -start clonidine 0.2mg TD -labetalol 10mg ivp q4 prn -resume HD MWF Status: Chronic Anxiety/Depression/Conversion disorder/Factitious disorder/Borderline personality disorder -Psych consulted, Dr. Mckeon. -atarax 25 q6 prn -seroguel 100mg BID -seroquel 100mg HS -lexapro 20mg po qd -klonopin 0.5mg po TID prn -Depakote 250mg PO BID -Haldol 5mg IM Q6H PRN agitation -Haldol 5mg IM x1 on 09/03/18 -ativan 1mg IVP Q6H as per Dr. King Status: Chronic Drug seeking behavior -crisis evaluated for drug seeking behavior but denied -no pain medications per Dr. King Status: Chronic Prophylactic measure GI: protonix 40mg ivp qd VTE: heparin 5000 q12 Status: Acute Dispo: Possible d/c tomorrow if tolerates diet
[2018-09-06] MEDS: (Novolin R) Insulin Human Regular 100 units/ml vial SC SCH ×4 (08:10→11:46)
[2018-09-06] MEDS ORDERED: Paricalcitol 2 mcg/ml Inj IV SCH (09:00)
[2018-09-06] MEDS ORDERED: Epoetin Alfa 3000 UNIT/ML Inj IV SCH (09:00)
[2018-09-06] MEDS ORDERED: Epoetin Alfa Dialysis 3000 UNIT/ML Inj IV SCH (09:00)
[2018-09-06] MEDS: Docusate-Senna 50 mg-8.6 mg Tab PO SCH (09:52)
[2018-09-06] MEDS: Divalproex 250 mg DR Tab PO SCH (09:53)
--- NOTE | 2018-09-06 11:05 | CP.PCM.PN ---
Subjective - Date & Time of Evaluation Date of Evaluation: 09/06/18 Time of Evaluation: 11:02 - Subjective Subjective: PGY-[address] Nieves Last emesis was Fri/Sat. Increase appetite, small portion, tolerating solid food. mom and 1:1 by bedside. Brusis L rib, improves. Objective - Vital Signs/Intake and Output Vital Signs (last 24 hours): Temp Pulse Resp BP Pulse Ox 97.9 F 74 20 125/79 94 L 09/06/18 07:10 09/06/18 07:10 09/06/18 07:10 09/06/18 07:10 09/06/18 07:10 Intake and Output: 09/06/18 09/06/18 06:59 18:59 Intake Total 150 Output Total 0 Balance 150 - Medications Medications: Current Medications Acetaminophen (Tylenol 650 Mg Supp) 650 mg NJ Q6 PRN PRN Reason: Pain, severe (8-10) Amlodipine Besylate (Norvasc) 5 mg PO DAILY [facility] Last Admin: 09/06/18 09:52 Dose: 5 mg Carvedilol (Coreg) 6.25 mg PO BID [facility] Last Admin: 09/06/18 09:51 Dose: 6.25 mg Clonazepam (Klonopin) 0.5 mg PO TID PRN PRN Reason: Anxiety Last Admin: 09/03/18 07:06 Dose: 0.5 mg Clonidine HCl (Catapres-Tts2 0.2 Mg/24 Hr) 1 patch TD Q7D@1000 [facility] Last Admin: 09/02/18 20:43 Dose: 1 patch Dextrose (Dextrose 50% Inj) 0 ml IV STAT PRN; Protocol PRN Reason: Hypoglycemia Protocol Last Admin: 09/04/18 16:54 Dose: 25 ml Dextrose (Glutose 15) 0 gm PO ONCE PRN; Protocol PRN Reason: Hypoglycemia Protocol Divalproex Sodium (Depakote Dr) 250 mg PO BID [facility] Last Admin: 09/06/18 09:53 Dose: 250 mg Epoetin Mk (Procrit) 6,000 unit IV MWF [facility] Escitalopram Oxalate (Lexapro) 20 mg PO DAILY [facility] Last Admin: 09/06/18 09:53 Dose: 20 mg Glucagon (Glucagen Diagnostic Kit) 0 mg IM STAT PRN; Protocol PRN Reason: Hypoglycemia Protocol Haloperidol Lactate (Haldol) 5 mg IM Q6H PRN PRN Reason: severe agitation Heparin Sodium (Porcine) (Heparin) 5,000 units SC Q12 [facility] Last Admin: 09/06/18 09:52 Dose: Not Given Hydralazine HCl (Apresoline) 25 mg PO TID [facility] Last Admin: 09/06/18 09:52 Dose: 25 mg Hydroxyzine HCl (Atarax) 25 mg PO Q6 [facility] Last Admin: 09/06/18 06:03 Dose: Not Given Dextrose (Dextrose 5% In Water 1000 Ml) 1,000 mls @ 0 mls/hr IV .Q0M PRN; Protocol PRN Reason: Hypoglycemia Protocol Insulin Detemir (Levemir) 10 unit SC HS [facility] Last Admin: 09/05/18 22:03 Dose: 10 unit Insulin Human Regular (Novolin R) 0 unit SC ACHS [facility]; Protocol Last Admin: 09/06/18 08:10 Dose: 2 units Insulin Human Regular (Novolin R) 3 unit SC TIDAC [facility] Last Admin: 09/06/18 08:10 Dose: 3 units Labetalol HCl (Trandate) 10 mg IVP Q4H PRN PRN Reason: SBP>180 Lorazepam (Ativan) 1 mg IVP Q6H PRN PRN Reason: Anxiety Last Admin: 09/05/18 22:08 Dose: 1 mg Losartan Potassium (Cozaar) 25 mg PO DAILY [facility] Last Admin: 09/06/18 09:52 Dose: 25 mg Metoclopramide HCl (Reglan) 10 mg IVP Q6 PRN PRN Reason: Nausea/Vomiting Last Admin: 09/03/18 03:20 Dose: 10 mg Ondansetron HCl (Zofran Inj) 4 mg IVP Q6H [facility] Last Admin: 09/06/18 08:09 Dose: Not Given Pantoprazole Sodium (Protonix Inj) 40 mg IVP DAILY [facility] Last Admin: 09/06/18 09:51 Dose: 40 mg Paricalcitol (Zemplar) 2 mcg IV MWF [facility] Quetiapine Fumarate (Seroquel) 100 mg PO HS [facility] Last Admin: 09/05/18 22:03 Dose: 100 mg Quetiapine Fumarate (Seroquel) 100 mg PO BID [facility] Last Admin: 09/06/18 09:52 Dose: 100 mg Senna/Docusate Sodium (Senokot S 50 Mg-8.6 Mg) 1 tab PO BID [facility] Last Admin: 09/06/18 09:52 Dose: 1 tab - Labs Labs: 09/04/18 09:59 09/04/18 09:59 - Constitutional Appears: No Acute Distress - Head Exam Head Exam: ATRAUMATIC, NORMAL INSPECTION, NORMOCEPHALIC - Eye Exam Eye Exam: EOMI, Normal appearance, PERRL. absent: Scleral icterus Pupil Exam: NORMAL ACCOMODATION - ENT Exam ENT Exam: Mucous Membranes Moist - Neck Exam Additional comments: supple - Respiratory Exam Respiratory Exam: Clear to Ausculation Bilateral. absent: Rales, Rhonchi, Wheezes - Cardiovascular Exam Cardiovascular Exam: REGULAR RHYTHM, +S1, +S2. absent: Murmur - GI/Abdominal Exam GI & Abdominal Exam: Soft, Tenderness (mild, epigastric. No suprapubic pain), Normal Bowel Sounds. absent: Guarding, Rigid - Extremities Exam Extremities Exam: Normal Capillary Refill, Pedal Edema (mild). absent: Calf Tenderness - Back Exam Back Exam: absent: CVA tenderness (L), CVA tenderness (R) - Neurological Exam Neurological Exam: Alert, Awake, Oriented x3 - Psychiatric Exam Psychiatric exam: Normal Affect, Normal Mood - Skin Skin Exam: Dry, Warm Assessment and Plan - Assessment and Plan (Free Text) Plan: Ms Kenneth Larry, 28 F w/ PMHx htn, IDDM on insulin pump (A1C 6.1) w/ diabetic nephropathy progressing to ESRD earlier this year, on HD (MWF, at [facility] under Dr Nieves outpatient service), multiple admissions with brittle diabetes, intractable vomiting, recently diagnosed MDD, anxiety disorder and factitious disorder along w/ pseudo-seizures, again presented after hypoglycemia at home, complaining of severe abd pain, nephrology being consulted for ESRD care. (1) ESRD on hemodialysis, MWF, via permacath New AV fistula with decresaed flow, s/p AV graft Anemia of chronic disease Hyperparathyroidism - Avoid hypoperfusion to maintain graft flow to prevent clotting. - follow up outpatient for suture removal. pain control per primary team - EPO and zemplar during HD. Monitor phos (2) Hypertensive due to ESRD - Losartan 25 daily, carveldilol 6.25 bid, amlodipine 5, clonidine patch at 0.2 qwk, IV labelol prn - discontinue hydralazine 25 tid. (3) Hypovolemia due to intractable N/v and decrease PO intake - resolved (4) Vomiting Questionable self-induced in the setting of diabetic gastroparesis - resolved - No plan for Gastric emptying study____as radiologist concerned patient will likely not tolerate 4 hour exam due to history and previous GI evaluation - Continue to monitor Volume status - 1:[address] for behavioral reason (5) Brittle diabetes - Managed per primary team s/r/dw Dr Nieves
--- NOTE | 2018-09-06 11:11 | CP.PCM.DIS ---
Provider - Provider Date of Admission: 09/02/18 18:42 Attending physician: Reza King Jr, MD Consults: 09/02/18 18:58 Nephrology Consult Routine Comment: Consulting Provider: Migue Nieves Consulting Physician: Migue Nieves Reason for Consult: ESRD on HD 09/03/18 10:54 Psychiatry Consult Routine Comment: Consulting Provider: Jomar Mckeon Consulting Physician: Jomar Mckeon Reason for Consult: depression, anxiety, conversion disorder, mood swings Diagnosis - Discharge Diagnosis (1) Intractable vomiting Status: Acute (2) Abdominal pain Status: Acute (3) Depressive disorder Status: Acute (4) Generalized anxiety disorder Status: Acute Hospital Course - Lab Results Lab Results: Most Recent Lab Values WBC 8.1 K/uL (4.8-10.8) 09/04/18 09:59 RBC 3.22 Mil/uL (3.80-5.20) L 09/04/18 09:59 Hgb 8.7 g/dL (11.0-16.0) L D 09/04/18 09:59 Hct 26.3 % (34.0-47.0) L 09/04/18 09:59 MCV 81.6 fL (81.0-99.0) 09/04/18 09:59 MCH 27.1 pg (27.0-31.0) 09/04/18 09:59 MCHC 33.2 g/dL (33.0-37.0) 09/04/18 09:59 RDW 20.3 % (11.5-14.5) H 09/04/18 09:59 Plt Count 293 K/uL (130-400) 09/04/18 09:59 MPV 8.8 fL (7.2-11.7) 09/04/18 09:59 Neut % (Auto) 75.6 % (50.0-75.0) H 09/04/18 09:59 Lymph % (Auto) 16.4 % (20.0-40.0) L 09/04/18 09:59 [place] % (Auto) 5.6 % (0.0-10.0) 09/04/18 09:59 Eos % (Auto) 1.7 % (0.0-4.0) 09/04/18 09:59 Baso % (Auto) 0.7 % (0.0-2.0) 09/04/18 09:59 Neut # (Auto) 6.1 K/uL (1.8-7.0) 09/04/18 09:59 Lymph # (Auto) 1.3 K/uL (1.0-4.3) 09/04/18 09:59 [place] # (Auto) 0.4 K/uL (0.0-0.8) 09/04/18 09:59 Eos # (Auto) 0.1 K/uL (0.0-0.7) 09/04/18 09:59 Baso # (Auto) 0.1 K/uL (0.0-0.2) 09/04/18 09:59 Sodium 137 mmol/L (132-148) 09/04/18 09:59 Potassium 3.5 mmol/L (3.6-5.2) L 09/04/18 09:59 Chloride 101 mmol/L (98-107) 09/04/18 09:59 Carbon Dioxide 26 mmol/L (22-30) 09/04/18 09:59 Anion Gap 14 (10-20) 09/04/18 09:59 BUN 26 mg/dL (7-17) H 09/04/18 09:59 Creatinine 3.9 mg/dL (0.7-1.2) H 09/04/18 09:59 Est GFR ( Amer) 16 09/04/18 09:59 Est GFR (Non-Af Amer) 14 09/04/18 09:59 POC Glucose (mg/dL) 101 mg/dL (65-110) 09/06/18 11:02 Random Glucose 257 mg/dL (65-105) H D 09/04/18 09:59 Calcium 8.5 mg/dl (8.6-10.4) L 09/04/18 09:59 Phosphorus 2.6 mg/dL (2.5-4.5) 09/04/18 09:59 Magnesium 2.3 mg/dL (1.6-2.3) 09/04/18 09:59 Total Bilirubin 0.3 mg/dL (0.2-1.3) 09/04/18 09:59 AST 23 U/L (14-36) 09/04/18 09:59 ALT 15 U/L (9-52) 09/04/18 09:59 Alkaline Phosphatase 96 U/L (38-126) 09/04/18 09:59 Total Protein 5.6 g/dL (6.3-8.3) L 09/04/18 09:59 Albumin 3.1 g/dL (3.5-5.0) L D 09/04/18 09:59 Globulin 2.5 gm/dL (2.2-3.9) 09/04/18 09:59 Albumin/Globulin Ratio 1.2 (1.0-2.1) 09/04/18 09:59 Lipase 32 U/L (23-300) 09/02/18 16:43 Beta HCG, Quant < 2.39 mIU/ML 09/04/18:59 Urine Color Straw (YELLOW) 09/04/18 09: Urine Clarity Clear (Clear) 09/04/18 09: Urine pH 7.0 (5.0-8.0) 09/04/18 09: Ur Specific Moody 1.013 (1.003-1.030) 09/04/18 09:01 Urine Protein 3+ mg/dL (NEGATIVE) H 09/04/18 09:01 Urine Glucose (UA) 3+ mg/dL (Normal) H 09/04/18 09:01 Urine Ketones Trace mg/dL (NEGATIVE) 09/04/18 09:01 Urine Blood Negative (NEGATIVE) 09/04/18 09:01 Urine Nitrate Negative (NEGATIVE) 09/04/18 09: Urine Bilirubin Negative (NEGATIVE) 09/04/18 09: Urine Urobilinogen Normal mg/dL (0.2-1.0) 09/04/18 09:01 Ur Leukocyte Esterase Neg Kathy/uL (Negative) 09/04/18 09:01 Urine WBC (Auto) 1 /hpf (0-5) 09/04/18 09:01 Urine RBC (Auto) < 1 /hpf (0-3) 09/04/18 09:01 Ur Squamous Epith Cells 1 /hpf (0-5) 09/04/18 09:01 Hyaline Casts 0-2 /lpf (0-2) 09/04/18 09:01 Urine HCG, Qual Negative (NEGATIVE) 09/04/18 09:01 Urine Opiates Screen Negative (NEGATIVE) 09/04/18 09:01 Urine Methadone Screen Negative (NEGATIVE) 09/04/18 09:01 Ur Barbiturates Screen Negative (NEGATIVE) 09/04/18 09:01 Ur Phencyclidine Scrn Negative (NEGATIVE) 09/04/18 09:01 Ur Amphetamines Screen Negative (NEGATIVE) 09/04/18 09:01 U Benzodiazepines Scrn Negative (NEGATIVE) 09/04/18 09:01 U Oth Cocaine Metabols Negative (NEGATIVE) 09/04/18 09:01 U Cannabinoids Screen Negative (NEGATIVE) 09/04/18 09:01 - Hospital Course Hospital Course: On admission: Patient is a 28 year old female with pmhx of diabetic gastroparesis 2/2 poorly controlled IDDM, ESRD(HD MFW), and seizure d/o(possible pseudo-seizures), who presents to the ED accompanied by her mother, with complaints of intractable vomiting and abdominal pain that began this morning. Patient has many admissions for same complaints, w/ last discharge of 09/01/18. Patient reports she last received HD yesterday, and has been compliant with medications and diet since discharge. Currently patient reports inability to tolerate PO, abdominal pain and LUE AVF site pain. Reports last BM 2 days ago, small in quantity and hard. Still producing urine daily. Hospitalization: 28 year old female with DM, ESRD on HD MWF, chronic abdominal pain, nausea, vomiting, anxiety, depression and conversion disorder presents with intractable nausea and vomiting. Intractable vomiting -questionable gastroparesis -Advanced to CCD/HHD -reglan 10mg q6 prn -zofran 4mg Q6H PRN -docusate/senna BID -tylenol 650 IN PRN pain Status: improving ESRD (end stage renal disease) on dialysis -continue HD MWF -patient received dialysis earlier today -nephro consult, Dr. Nieves - Paricalcitol 2mcg MWF - Procrit MWF Status: Chronic IDDM (insulin dependent diabetes mellitus) -hold home meds -ISS ACHS -Levemir 10u SC HS -Regular insulin 3u TIDAC -accuchecks ACHS -hypoglycemia protocol Status: Chronic Hypertension -resume home meds, norvasc, coreg, hydralazine, cozaar -start clonidine 0.2mg TD -labetalol 10mg ivp q4 prn -resume HD MWF Status: Chronic Anxiety/Depression/Conversion disorder/Factitious disorder/Borderline personality disorder -Psych consulted, Dr. Mckeon. -atarax 25 q6 prn -seroguel 100mg BID -seroquel 100mg HS -lexapro 20mg po qd -klonopin 0.5mg po TID prn -Depakote 250mg PO BID -Haldol 5mg IM Q6H PRN agitation -Haldol 5mg IM x1 on 09/03/18 -ativan 1mg IVP Q6H as per Dr. King Status: Chronic Drug seeking behavior -crisis evaluated for drug seeking behavior but denied -no pain medications per Dr. King Status: Chronic Prophylactic measure GI: protonix 40mg ivp qd VTE: heparin 5000 q12 Status: Acute Discharge instructions: Patient is stable for discharge as per Dr. King. Patient is to follow up with Dr. King within one week of discharge. You must also follow up with Dr. Nieves, kidney doctor, and Dr. Hines, vascular surgeon. You will be receiving the following prescriptions: Ativan 1mg by mouth three times per day as needed Depakote DR 250mg PO twice a day to stabilize mood Quetiapine 100mg a day twice a day during the day-> this dosage was increased during this hospitalization. This will replace your prescription for Quetiapine 50mg three times per day. You will now take the Quetiapine 100mg twice a day during the day and still take the Quetiapine 100mg at bedtime, so in total you will be taking Quetiapine 100mg three times per day. Discharge Exam - Head Exam Head Exam: ATRAUMATIC, NORMAL INSPECTION, NORMOCEPHALIC - Additional Findings Additional findings: - Constitutional Appears: Non-toxic, No Acute Distress - Head Exam Head Exam: ATRAUMATIC, NORMOCEPHALIC - Eye Exam Eye Exam: EOMI, Normal appearance, PERRL - ENT Exam ENT Exam: Mucous Membranes Moist - Neck Exam Neck Exam: Full ROM - Respiratory Exam Respiratory Exam: Clear to Ausculation Bilateral, NORMAL BREATHING PATTERN. absent: Rales, Rhonchi, Wheezes - Cardiovascular Exam Cardiovascular Exam: REGULAR RHYTHM, +S1, +S2 Additional comments: R chest permacath - GI/Abdominal Exam GI & Abdominal Exam: Soft, Normal Bowel Sounds. absent: Tenderness, Distended, Firm, Guarding, Rigid, Mass, Rebound - Extremities Exam Extremities Exam: Full ROM, Normal Capillary Refill. absent: Pedal Edema, Tenderness Additional comments: L arm AV graft dressing clean and dry - Neurological Exam Neurological Exam: Alert, Awake, Oriented x3 Neuro motor strength exam: Left Upper Extremity: 5, Right Upper Extremity: 5, Left Lower Extremity: 5, Right Lower Extremity: 5 - Psychiatric Exam Additional comments: calm - Skin Skin Exam: Dry, Normal Color, Warm Discharge Plan - Discharge Medications Prescriptions: Divalproex [Depakote DR] 250 mg PO BID #60 tcp QUEtiapine [Seroquel] 100 mg PO BID #60 tab - Follow Up Plan Condition: SERIOUS Disposition: HOME/ ROUTINE Instructions: Diabetes Exchange Diet, Nausea and Vomiting, Adult (DC), End Stage Kidney Disease (DC), Diabetes and Diet, Dialysis and Diet Additional Instructions: Patient is stable for discharge as per Dr. King. Patient is to follow up with Dr. King within one week of discharge. You must also follow up with Dr. Nieves, kidney doctor, and Dr. Hines, vascular surgeon. You will be receiving the following prescriptions: Ativan 1mg by mouth three times per day as needed Depakote DR 250mg PO twice a day to stabilize mood Quetiapine 100mg a day twice a day during the day-> this dosage was increased during this hospitalization. This will replace your prescription for Quetiapine 50mg three times per day. You will now take the Quetiapine 100mg twice a day during the day and still take the Quetiapine 100mg at bedtime, so in total you will be taking Quetiapine 100mg three times per day. Your additional medication, which you have at home and will continue taking are as follows: Amlodipine 5mg PO once a day Carvedilol 6.25mg PO twice a day, 8am and 8pm Hydroxyzine 50 mg PO at night time only if needed for anxiety Ondansetron 4mg PO every 6 hours only if needed for nausea Pantoprazole 40mg PO once a day Ecitalopram 20mg PO once a day Lantus 15u at night time Continue your usual insulin regimen As per Dr. Nieves, the kidney doctor, stop taking Hydralazine 50 mg PO three times a day Return to the emergency department for new or worsening symptoms. Referrals: Reza King Jr., MD [Medical Doctor] - Tawanda Hines Jr., MD [Staff Provider] - Migue Nieves MD [Staff Provider] -
--- NOTE | 2018-09-06 12:23 | PCM.PYCHPN ---
Psychiatric Progress Note - Psychiatric Progress Note Patient seen today, length of contact: 15 min Patient Chief Complaint: "I'm fine" Problems Identified/Issues Discussed: She is seen, chart reviewed She says [facility] screeners came but rejected her. No notes found in the chart but it is likely true as they would have alerted the staff otherwise Calmer and cooperative "because I took ativan... Doctor, I don;t abuse it, I don;t take ativan or painkillers outside" Support given Cleared by psych for d/c Medication Change: No Medical Record Reviewed: Yes Mental Status Examination - Cognitive Function Orientation: Person, Place, Situation, Time Memory: Impaired Attention: Poor Concentration: Poor Association: WNL Fund of Knowledge: WNL - Mood Mood: Depressed, Anxious - Affect Affect: Constricted - Speech Speech: Appropriate - Formal Thought Process Formal Thought Process: No Impairment - Suicidal Ideation Suicidal Ideation: No - Homicidal Ideation Homicidal Ideation: No Goal/Treatment Plan - Goal/Treatment Plan Progress Toward Problem(s) and Goals/Treatment Plan: Lexapro for depression and anxiety Seroquel for mood swings, irritability - dose increased Add depakote low dose for mood stabilization PRN Atarax and inderal for anxiety Klonopin for anxiety. She is overusing ativan otherwise. Ativan can be d/c'ed, as she is fixated on ativan Limit setting, support, psychoeducation SW should contact again to [employer]'s CM program to help pt avoid revolver door recidivism.
[2018-09-06 14:58] LABS: EOS # 0.4 K/uL (0.0-0.7); EOS % 7.2 % (0.0-4.0); HEMOGLOBIN 8.9 g/dL (11.0-16.0); LYMPH # 1.8 K/uL (1.0-4.3); LYMPH % 36.2 % (20.0-40.0); MEAN CELL VOLUME 82.1 fL (81.0-99.0); MEAN CORPUSCULAR HEMOGLOBIN 26.9 pg (27.0-31.0); MEAN CORPUSCULAR HGB CONC 32.7 g/dL (33.0-37.0); MEAN PLATELET VOLUME 8.7 fL (7.2-11.7); MONO # 0.3 K/uL (0.0-0.8); MONO % 6.9 % (0.0-10.0); NEUT # 2.5 K/uL (1.8-7.0); NEUT % 48.7 % (50.0-75.0); NRBC % 0.1 % (0.0-2.0); RBC 3.31 Mil/uL (3.80-5.20); RED CELL DISTRIBUTION WIDTH 20.6 % (11.5-14.5)
[2018-09-06 15:16] LABS: ALB/GLOB RATIO 1.1 (1.0-2.1); ALBUMIN 2.7 g/dL (3.5-5.0); CALCIUM 7.9 mg/dl (8.6-10.4)
[2018-09-06 18:36] VITALS: BP 156/85; PULSE 86; RESP 16; TEMP 97.9; O2SAT 99
--- NOTE | 2018-09-07 21:12 | CARD ---
APPROVED REPORT Date of service: 09/03/2018 EKG Measurement Heart [id number] <Conclusion> Sinus tachycardia Otherwise normal ECG
== END 2018-09-06 19:50 | disposition home or self-care (01) ==
LOC: C.ER 15:40 → C.6T 18:42
PROVIDERS: ADMIT Internal Medicine; ATTEND Internal Medicine
DX: E10.43 Type 1 diabetes mellitus with diabetic autonomic (poly)neuropathy (principal); D63.1 Anemia in chronic kidney disease; F13.10 Sedative, hypnotic or anxiolytic abuse, uncomplicated; E10.65 Type 1 diabetes mellitus with hyperglycemia; K31.84 Gastroparesis; Z96.41 Presence of insulin pump (external) (internal); F32.9 Major depressive disorder, single episode, unspecified; F41.1 Generalized anxiety disorder; F44.9 Dissociative and conversion disorder, unspecified; F60.3 Borderline personality disorder; I12.0 Hypertensive chronic kidney disease with stage 5 chronic kidney disease or end stage renal disease; N18.6 End stage renal disease; N25.81 Secondary hyperparathyroidism of renal origin; Z76.5 Malingerer [conscious simulation]; G40.909 Epilepsy, unspecified, not intractable, without status epilepticus; Z99.2 Dependence on renal dialysis; E10.22 Type 1 diabetes mellitus with diabetic chronic kidney disease
CPT/HCPCS: 36415; 71045; 80053; 80324; 80345; 80346; 80349; 80353; 80358; 80361; 81001; 82948; 83690; 83735; 83992; 84100; 84702; 84703; 85025; 90970; 96374; 99285; C9113; G0257; G0378; J0885; J1630; J1644; J2060; J2405; J2501; J2765; J7030